=== PATIENT | female | born 1955 | race Caucasian/White ===

== ENCOUNTER → 2018-04-12 16:11 | Outpatient (CLI) | payer MEDICARE, BC, SELFPAY ==
--- NOTE | 2018-04-12 16:13 | CT_ITS ---
STUDY: CT CHEST WITHOUT CONTRAST REASON FOR EXAM: Female, 63 years old. Bilateral mastectomies. Extending from the incisional area into the back. RADIATION DOSAGE (If Supplied By Facility): CTDIvol = ( 11.38 ) mGy, DLP = ( 737.15 ) mGycm TECHNIQUE: Transaxial imaging was performed without the administration of intravenous contrast material. Multiplanar coronal and sagittal images were reformatted. Individualized dose optimization techniques were used for this CT. COMPARISON: CTA of the chest, July 09, 2015. FINDINGS: The lungs are normal. There is no demonstrated pleural abnormality. Normal heart and pericardium. There are calcifications of the coronary arteries. There is nonspecific subcentimeter mediastinal lymphadenopathy. Normal hilar regions. Normal unenhanced pulmonary arteries. There is atherosclerotic calcification of the aortic arch with tortuosity and elongation of the aortic arch and descending thoracic aorta. There are degenerative changes of the thoracic spine. The soft tissues of the chest wall appear normal. There is no enlarged axillary lymph nodes. There are skin clips in both axilla. There is fatty infiltration of the enlarged liver without mass. CT/Chest WITH Contrast IMPRESSION: 1. Normal unenhanced CT Chest examination. 2. No evidence of chest wall abnormality. 3. Mild degenerative changes of the thoracic spine. 4. Enlarged fatty infiltrated liver. Electronically Signed: Wan Ayoub DO at 17:06 EDT Tel [phone], Service support ,
== END ==
PROVIDERS: Family Provider Family Medicine; PCP Family Medicine; Visit Provider Internal Medicine Medical Oncology
DX: C50.911 Malignant neoplasm of unspecified site of right female breast (principal)
CPT/HCPCS: 71260; Q9967

== ENCOUNTER → 2018-04-19 10:10 | Outpatient (CLI) | payer MEDICARE, BC, SELFPAY ==
--- NOTE | 2018-04-19 10:12 | NM_ITS ---
CLINICAL: 83-year-old female with reported history of carcinoma of the breast with current complaint of anterior chest wall pain. WHOLE BODY 99m Tc MDP RADIONUCLIDE BONE SCINTIGRAPHY COMPARISON: CT of the chest report 04/12/2018, whole body bone scintigraphy study report 08/06/2013 FINDINGS: Following the intravenous administration of 25.0 mCi of 99m Tc MDP, whole body bone images reveal: 1. Newly identified mild increased radiopharmaceutical concentration appears evident in the proximal-distal sternum. 2. Enhanced uptake is presently visualized in the acromioclavicular, glenohumeral and sternoclavicular compartments of both shoulders, bilateral wrists and hands, sixth-eighth thoracic vertebra posteriorly on the right, fifth lumbar vertebra and left posterior sacrum, bilateral knees, right-left ankles, midfoot and forefoot bilaterally. 3. The remaining skeletal structures are scintigraphically unremarkable with normal-appearing renal images and urinary bladder activity identified. An increase in uptake is symmetrically defined in the bilateral frontal calvarium most consistent with hyperostosis frontalis. NM/Bone Scan Whole Body IMPRESSION: 1. The increase in radiopharmaceutical concentration defined in the proximal-distal sternum may be further investigated with magnetic resonance imaging in view of the negative findings noted on CT of the chest report dated 04/12/2018, and known history of primary breast carcinoma. 2. Degenerative arthritis appears expressed in the bilateral shoulders, both wrists articulations, right-left hands, thoracic and lumbar spine, sacrum, knees bilaterally, both ankle articulations, right-left mid and forefoot. Electronically Signed: Darci Gary DO at 10:24 EDT Tel , Service support ,
== END ==
PROVIDERS: Family Provider Family Medicine; PCP Family Medicine; Visit Provider Internal Medicine Medical Oncology
DX: C50.911 Malignant neoplasm of unspecified site of right female breast (principal)
CPT/HCPCS: 78306

== ENCOUNTER → 2018-06-14 14:59 | Outpatient (CLI) | payer MEDICARE, BC, SELFPAY ==
[2018-06-18 08:07] LABS: Alternaria alternata <0.10 kU/L (Class 0); Aspergillus fumigatus <0.10 kU/L (Class 0); Bahia Grass <0.10 kU/L (Class 0); Bermuda Grass <0.10 kU/L (Class 0); Bluegrass, Kentucky <0.10 kU/L (Class 0); Cat Hair/Dander, Standard <0.10 kU/L (Class 0); Cedar, Mountain <0.10 kU/L (Class 0); Cladosporium herbarum <0.10 kU/L (Class 0); Cockroach, American <0.10 kU/L (Class 0); D farinae Mite <0.10 kU/L (Class 0); D pteronyssinus <0.10 kU/L (Class 0); Dog Epithelia <0.10 kU/L (Class 0); Elm, American White <0.10 kU/L (Class 0); Hazelnut Tree <0.10 kU/L (Class 0); Hickory, White <0.10 kU/L (Class 0); Johnson Grass <0.10 kU/L (Class 0); Maple/Box Elder <0.10 kU/L (Class 0); Mucor racemosus <0.10 kU/L (Class 0); Mugwort <0.10 kU/L (Class 0); Mulberry, White <0.10 kU/L (Class 0); Oak, White <0.10 kU/L (Class 0); Penicillium chrysogen <0.10 kU/L (Class 0); Pigweed, Rough <0.10 kU/L (Class 0); Plantain, English <0.10 kU/L (Class 0); Ragweed, Short/Common <0.10 kU/L (Class 0); Sheep Sorrel(Dock) <0.10 kU/L (Class 0); Stemphylium herbarum <0.10 kU/L (Class 0); Sweet Gum <0.10 kU/L (Class 0); Sycamore, American <0.10 kU/L (Class 0)
[2018-06-18 09:58] LABS: Nettle <0.10 kU/L (Class 0)
== END ==
PROVIDERS: Family Provider Family Medicine; PCP Family Medicine; Visit Provider Family Medicine
DX: J45.909 Unspecified asthma, uncomplicated (principal)
CPT/HCPCS: 36415; 86003

== ENCOUNTER 2018-10-09 04:46 | Emergency (ER) | payer MEDICARE, BC, SELFPAY ==
[2018-10-09 04:47] VITALS: BP 173/99; PULSE 97; RESP 18; TEMP 36.3; O2SAT 93; BMI 40.3
--- NOTE | 2018-10-09 04:55 | RAD_ITS ---
STUDY: X-RAY CHEST REASON FOR EXAM: Female, 63 years old. Cough TECHNIQUE: PA and lateral COMPARISON: None. FINDINGS: There is a RIGHT middle lobe infiltrate. Lungs are well expanded. There is no demonstrated pleural abnormality. Normal size heart. Normal mediastinum and kita. Normal visualized pulmonary arteries. Normal visualized aortic arch and descending thoracic aorta. Normal visualized thoracic spine. Normal visualized ribs, clavicles, and shoulders. There is no demonstrated abnormality of the visualized soft tissue structures of the upper abdomen. RAD/Chest PA and Lateral IMPRESSION: There is a RIGHT middle lobe infiltrate. Lungs are well expanded. There is no demonstrated pleural abnormality. Normal size heart. Electronically Signed: Sukumar Thomas MD at 5:47 EST , Service support ,
--- NOTE | 2018-10-09 04:58 | ED.DCSUM_ITS ---
- ER Visit Summary Date of Service: 10/09/18 Chief Complaint: []: Wheezing shortness of breath cough History of Present Illness: The patient is a 63 F with the above symptoms for last 7 days. She has nasal congestion as well. Positive sick contacts with her grandkids. She does have a history of asthma. She is using albuterol nebulizers at home. She is using Mucinex, Robitussin, honey. Feels like she probably has asthmatic bronchitis. Denies fevers or chills. Physical Examination: [] Vital signs reviewed General: Well-nourished well-developed Head: Normocephalic atraumatic Eyes: Pupils equal round and reactive to light extraocular movements intact ENT: TMs clear no hemotympanum no trauma Neck: Nontender full range of motion Cardiovascular: Regular rate rhythm no murmurs normal S1-S2 Respiratory: Diffuse expiratory wheezes bilaterally chest nontender speaking full sentences. No retractions. No significant respiratory distress Abdomen: Soft nontender nondistended normal bowel sounds no masses Back: Nontender no CVA tenderness Extremities: Nontender active range of motion ?4 extremities no trauma Skin: Normal color no trauma Neuro alert oriented cranial nerves II through XII intact normal strength sensation reflexes Test Results: [] Emergency Department Course and Treatment: [] Given oral prednisone and DuoNeb breathing treatment followed by 2 albuterol breathing treatments. Chest x-ray obtained. It is negative. At this time the patient felt much better after treatment. Wheezing is resolved. At this time I feel she has asthmatic bronchitis that is viral in nature. Given prednisone for the next 5 days. We will follow-up as an outpatient. Treatment Plan: [] Disposition: [] Impression: [] Asthmatic bronchitis This note was generated with [employer] dictation software. It may contain incorrect words, spelling, and punctuation that were not noted in review of the chart prior to signing ED Disposition - Plan for ED Patient: Chief Complaint: Cough Referrals: Adolfo Aguirre MD [Primary Care Provider] -
[2018-10-09 05:00] VITALS: PULSE 97; RESP 18
[2018-10-09] MEDS: predniSONE 20 MG Tablet 60 MG PO (05:00)
[2018-10-09] MEDS: Albuterol 2.5 MG/3 ML VIAL.NEB. INHALATION (05:03)
[2018-10-09] MEDS: Ipratropium/Albuterol Sulfate 3 ML AMPUL.NEB INHALATION (05:03)
--- NOTE | 2018-10-09 05:42 | ED.DEP ---
ED Disposition - Plan for ED Patient: Disposition: Home or Assisted Living Chief Complaint: Cough Instructions: ED Bronchitis Asthmatic Prescriptions: predniSONE tablet 60 mg PO DAILY #15 tab Referrals: Adolfo Aguirre MD [Primary Care Provider] -
[2018-10-09 05:43] VITALS: PULSE 101; RESP 16; O2SAT 93
[2018-10-09 05:45] VITALS: PULSE 101; RESP 15; O2SAT 93
[2018-10-09 05:47] VITALS: O2SAT 93
== END 2018-10-09 05:48 | disposition home or self-care (01) ==
PROVIDERS: Emergency Provider Emergency Medicine; Family Provider Family Medicine; PCP Family Medicine
DX: J45.909 Unspecified asthma, uncomplicated (principal); E66.9 Obesity, unspecified; I25.10 Atherosclerotic heart disease of native coronary artery without angina pectoris; K21.9 Gastro-esophageal reflux disease without esophagitis; E11.9 Type 2 diabetes mellitus without complications; I10 Essential (primary) hypertension; E78.00 Pure hypercholesterolemia, unspecified; G47.33 Obstructive sleep apnea (adult) (pediatric); Z85.3 Personal history of malignant neoplasm of breast; Z79.82 Long term (current) use of aspirin; Z79.84 Long term (current) use of oral hypoglycemic drugs; Z79.899 Other long term (current) drug therapy
CPT/HCPCS: 71046; 94640; 99284

== ENCOUNTER → 2018-12-05 07:26 | Outpatient (CLI) | payer MEDICARE, BC, SELFPAY ==
[2018-11-23 12:53] VITALS: BMI 41.7
--- NOTE | 2018-12-05 07:28 | NM_ITS ---
CLINICAL: 63-year-old female with reported history of carcinoma of the breast. WHOLE BODY 99m Tc MDP RADIONUCLIDE BONE SCINTIGRAPHY COMPARISON: Previous whole body bone scintigraphy study dated 04/19/2018 FINDINGS: Following the intravenous administration of 25.2 mCi of 99m Tc MDP, whole body bone images reveal: 1. Increased radiopharmaceutical concentration is currently identified in the fifth lumbar vertebra and left posterior sacrum, fourth and sixth thoracic vertebra posteriorly on the right, glenohumeral compartment of the left shoulder, acromioclavicular and sternoclavicular compartments of both shoulders, bilateral knees, both ankle articulations, right-left mid and forefoot. 2. The remaining skeletal structures are scintigraphically unremarkable with normal-appearing renal images and urinary bladder activity identified. There is evidence of hyperostosis frontalis. The prior described increased uptake noted in the sternum is not readily apparent on the current examination. NM/Bone Scan Whole Body IMPRESSION: 1. The increased radiopharmaceutical concentration identified in the thoracic and lumbar spine, sacrum, bilateral shoulder and knee articulations, right-left ankles, midfoot and forefoot bilaterally is most consistent with degenerative arthritis. 2. Overall compared to the previous whole body bone scintigraphy study dated 04/19/2018, there is no significant interval change. No definitive scintigraphic evidence of diffuse axial skeletal metastatic disease is demonstrated on the current examination. Electronically Signed: Darci Gary DO at 10:49 EDT Tel , Service support ,
== END ==
PROVIDERS: Family Provider Family Medicine; PCP Family Medicine; Referring Provider Nurse Practitioner Family; Visit Provider Nurse Practitioner Family
DX: C50.919 Malignant neoplasm of unspecified site of unspecified female breast (principal)
CPT/HCPCS: 78306

== ENCOUNTER 2019-04-20 17:53 | Emergency (ER) | payer MEDICARE, BC, SELFPAY ==
[2018-12-11 11:27] VITALS: BMI 42.3
[2019-04-20] VITALS (9 sets, daily range): BP systolic 113–145; BP diastolic 54–68; PULSE 73–84; RESP 14–24; TEMP 36.6–36.7; O2SAT 96–98; BMI 44.1
--- NOTE | 2019-04-20 17:59 | CT_ITS ---
We are attempting to reach an attending provider to discuss findings. An addendum with communication details will be sent when the communication is complete. STUDY: CTA HEAD AND NECK WITH CONTRAST REASON FOR EXAM: Female, 64 years old. Altered mental status. Stroke alert. RADIATION DOSAGE (If Supplied By Facility): CTDIvol = ( 22.02 ) mGy, DLP = ( 732.98 ) mGycm TECHNIQUE: CT angiography was performed with a multi-detector CT scanner. Data acquisition was obtained from the skull base through the vertex following intravenous administration of 100ML IV Isovue 370. MIP images were reconstructed from the axial data set. Post-processing of the angiographic images was performed, with multiplanar reformation and 3D reconstruction. Individualized dose optimization techniques were used for this CT. COMPARISON: No relevant priors. FINDINGS: Normal bilateral petrous carotid arteries. Normal right cavernous carotid artery with a normal supraclinoid bifurcation. Normal left cavernous carotid artery with a normal supraclinoid bifurcation. Normal right A1 segments of the anterior cerebral artery. Normal left A1 segments of the anterior cerebral artery. Normal intact anterior communicating artery (ACOM). Normal bilateral A2 segments of the anterior cerebral arteries. Normal right M1 and M2 segments of the middle cerebral arteries, with a normal M1 bifurcation. Normal left M1 and M2 segments of the middle cerebral arteries, with a normal M1 bifurcation. Normal right posterior communicating artery (PCOM). Normal left posterior communicating artery (PCOM). Normal bilateral vertebral arteries. Normal basilar artery with a normal basilar bifurcation. The visualized bilateral superior cerebellar (SCA) arteries are normal. Normal bilateral P1, P2 and visualized P3 segments of the posterior cerebral arteries. There is no demonstrated aneurysm of the [place]. There is no demonstrated abnormality of the visualized brain. AORTIC ARCH: Normal visualized aortic arch. Normal origins of the brachiocephalic, left common carotid, and left subclavian arteries. RIGHT CAROTID ARTERIES: Normal right common carotid artery (CCA). Normal right common carotid bulb. Normal origin of the right internal carotid (ICA) artery without a hemodynamically significant stenosis. Normal visualized cervical portion of the right internal carotid artery. Normal origin of the right external carotid artery (ECA). LEFT CAROTID ARTERIES: Normal left common carotid artery (CCA). Normal left common carotid bulb. Normal origin of the left internal carotid (ICA) artery without a hemodynamically significant stenosis. Normal visualized cervical portion of the left internal carotid artery. Normal origin of the left external carotid artery (ECA). VERTEBRAL ARTERIES: Normal bilateral vertebral arteries. CT/CTA Head AND Neck W/ Contrast IMPRESSION: Normal CTA Head and neck with contrast. Electronically Signed: Fredo Suazo, at 18:22 EDT Tel , Service support ,
--- NOTE | 2019-04-20 17:59 | EKG12_ITS ---
Test Reason : STROKE Blood Pressure : / mmHG Vent. Rate : 077 BPM Atrial Rate : 077 BPM P-R Int : 156 ms QRS Dur : 102 ms QT Int : 418 ms P-R-T Axes : 059 082 050 degrees QTc Int : 473 ms Normal sinus rhythm RSR' or QR pattern in V1 suggests right ventricular conduction delay Borderline ECG Confirmed by LEOPOLDO FELICIANO, PASCUAL ([id number]), editorial specialist SALBADOR MOROCHO ([id number]) on 04/23/2019 1:49:34 PM Referred By: UR Confirmed By:PASCUAL MINA MD
--- NOTE | 2019-04-20 17:59 | CT_ITS ---
STUDY: CT BRAIN WITHOUT CONTRAST REASON FOR EXAM: Female, 64 years old. Altered mental status. Stroke alert. RADIATION DOSAGE (If Supplied By Facility): CTDIvol = ( 44.99 ) mGy, DLP = ( 745.49 ) mGycm TECHNIQUE: Transaxial CT imaging of the brain was performed without administration of intravenous contrast material. Individualized dose optimization techniques were used for this CT. COMPARISON: None. FINDINGS: There is no acute bleed or infarct. There are normal white matter tracts. The ventricles are normal in configuration. There is no hydrocephalus. The visualized paranasal sinuses are clear. The mastoid air cells are well aerated. There is no skull fracture. CT/Brain/Head without Contrast IMPRESSION: No acute intracranial abnormality. N.B. : The above information has been verbally conveyed by Fredo Suazo to Tee Horowitz MD , , on 04/20/2019 18:15:51 (ET). Electronically Signed: Fredo Suazo, at 18:17 EDT Tel , Service support ,
--- NOTE | 2019-04-20 18:00 | CM.ED ---
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 FAMILY AT BEDSIDE. SEAN CHAMBERLAIN, PROOF OPERATOR, [employer] SIL[employer].
--- NOTE | 2019-04-20 18:01 | ED.DCSUM_ITS ---
History of Present Illness Chief Complaint: Neuro S/Sx Informant: Patient, Family, Manager Skilled Onset: Today Context: Sudden Onset Timing: Continuous Quality and Location: Slurred Speech Onset: 1649 Current Severity: Mild Maximum Severity: Moderate Worsened by: Nothing Relieved by: Nothing Associated Symptoms: Negative for: Headache, Nausea, Vomiting Narrative: Patient is a 64-year-old woman who was taken directly to CAT scan. She was examined by me on the CT table. Per paramedics onset 1649. She reports slurred speech. She has no other complaints. Squad reported right-sided weakness. Prior similar symptoms: No Recent Illness/Hospitalization: No - Past Medical History (1) CAD (coronary artery disease) Status: Chronic (2) Depression Status: Chronic (3) Diabetes mellitus, type II Status: Chronic (4) GERD (gastroesophageal reflux disease) Status: Chronic (5) HLD (hyperlipidemia) Status: Chronic (6) HTN (hypertension) Status: Chronic (7) Hypothyroidism Status: Chronic (8) Malignant neoplasm of right breast, stage 2 Status: Chronic Comment: lateral portion (9) Morbid obesity with BMI of 40.0-44.9, adult Status: Chronic (10) Osteoarthritis Status: Chronic (11) Sleep apnea Status: Chronic Past Medical History - Allergies and Home Meds Allergies/Adverse Reactions: Allergies Xrwudmu-Get-Qaz Reductase Inhibitor Adverse Reaction (Intermediate, Verified 11/23/18 12:52) elevated liver enzymes Primary Care Physician: Adolfo Aguirre MD [Primary Care Provider] - Prior records reviewed: Yes - Patient is on Metformin Surgical History: - Lives: Spouse/ Significant Other Smoking Status: Never smoker Drugs: None - Family History Maternal Family History: Family History (Last Reviewed 12/11/18 @ 11:26 by Mei Handley) Father Myocardial infarction Aunt No problems noted. Brother Myocardial infarction Sister Myocardial infarction Mother Ovarian cancer Family History: Reports: Heart Disease Review of Systems ROS: Unable to Obtain - Difficult to obtain since patient was in the radiology suite and her speech is slurred. General: Denies: Chills, Fever, Sweats Eyes: Denies: Visual changes - bilaterally, Blurred Vision - bilaterally, Diplopia ENT: Denies: Bilateral ear pain, Rhinorrhea, Sore throat Cardiovascular: Denies: Chest pain, Palpitations, Heart racing Respiratory: Denies: Dyspnea, Cough, Sputum, Dyspnea on exertion, Orthopnea, Paroxysmal nocturnal dyspnea Gastrointestinal: Denies: Abdominal pain, Nausea, Vomiting, Diarrhea, Melena, Hematochezia Genitourinary: Denies: Dysuria, Hematuria, Frequency Musculoskeletal: Denies: Myalgias, Arthralgias, Neck pain, Back pain, Extremity Pain Skin: Denies: Rash, Wounds Neurological: Reports: Weakness. Denies: Headache, Numbness Hematologic: Denies: Easy bruising, Easy bleeding Allergy: Denies: Uticaria, Swelling of the mouth STROKE Inital Vital Signs reviewed: Yes - NIHSS Initial 1a Level of Consciousness: 1 1b LOC Questions (Score 2 if aphasic/stupor): 1 1c LOC Commands (Only score 1st attempt): 0 2 Best Gaze (If aphasic, use reflexive mvmts.): 0 3 Visual: 0 4 Facial Palsy: 0 5 Motor Arm Right (UN = amputation/fusion): 0 5 Motor Arm Left: 0 6 Motor Leg Right: 1 6 Motor Leg Left: 2 7 Limb ataxia (Only + if out of proportion): 1 8 Sensory (Aphasia/stupor=0 or 1, coma=2): 0 9 Best Language: 1 10 Dysarthria (mute, coma=2, intubated=UN): 1 11 Extinction and Inattention (only scored if +): 0 Total Score: 8 2nd Follow up at 1815 1a Level of Consciousness: 1 1b LOC Questions (Score 2 if aphasic/stupor): 1 1c LOC Commands (Only score 1st attempt): 0 2 Best Gaze (If aphasic, use reflexive mvmts.): 0 3 Visual: 0 4 Facial Palsy: 0 5 Motor Arm Right (UN = amputation/fusion): 0 5 Motor Arm Left: 0 6 Motor Leg Right: 0 6 Motor Leg Left: 2 7 Limb ataxia (Only + if out of proportion): 1 8 Sensory (Aphasia/stupor=0 or 1, coma=2): 0 9 Best Language: 1 10 Dysarthria (mute, coma=2, intubated=UN): 1 11 Extinction and Inattention (only scored if +): 0 - NH has improved and if one excludes prior weakness is a 5 Total Score: 7 Diagnostic/Tx/Re-eval - EKG Initial EKG Interpretation: Sinus Rhythm - Ocular rate is 77. WA intervals 100.56 ms. QRS duration 102 ms. There is an RR prime in V1 suggestive of a right ventricular bundle branch block. QT T is 418 ms. [place] is normal. - Medical Decision Making Stroke Team Activated: Yes Reviewed Inclusion/Exclusion criteria: Yes Was Patient considered for Endovascular Intervention?: Yes IV Alteplase (t-PA) Administered: Yes No contraindications for IV Alteplase (t-PA) administration.: Yes Alteplase (t-PA) risks, benefits, alternative discussed: Yes Not given: Patient refusal: No Patient arrives with strokelike symptoms that started at 1650. Patient was taken directly to the scanner. Patient was examined by me in the scanner. Patient's initial NIH is 7. CT of the head and CTA of the head and neck were ordered. CT of the head without contrast and CTA of the head neck interpreted by same radiologist reveals no abnormality. Per [facility] neurologist patient was a candidate for TPA and recommended TPA. After explaining risk benefits of TPA patient and family consented. Initial thought was to admit patient to [facility] ICU. Since there is no neurology coverage on weekend she was transported to [facility]. Critical care time (excluding procedures): Discussing w/Patient &/or Family/Coding Analyst - Critical care time 32 minutes. This included discussion with patient, family and neurologist at [facility]. Help/facilitate transfer to [facility] and direct bedside care. ED Disposition - Plan for ED Patient: Disposition: [facility] Diagnosis: CVA (cerebral vascular accident) Referrals: Adolfo Aguirre MD [Primary Care Provider] -
[2019-04-20 18:35] LABS: Absolute Lymphocyte Count 1.45 X10^3/uL (0.83-4.51); Absolute Neutrophil Count 4.7 X10^3/uL (2.0-7.7); Basophil# 0.04 X10^3/uL; Basophil% 0.6 % (0-1); Eosinophil# 0.31 X10^3/uL; Eosinophils% 4.3 % (0-5); Hematocrit 36.6 % (37-47); Hemoglobin 12.4 g/dL (12.0-15.0); Lymphocyte # 1.45 X10^3/ul (4.0); Lymphocyte % 20.2 % (19-41); Mean Corp Hgb Conc 33.9 g/dL (32-36); Mean Corpuscular Volume 91.5 fL (81-99); Mean Platelet Vol. 10.9 fl (6.2-12.0); Monocyte# 0.66 X10^3/uL; Monocyte% 9.2 % (0-10); NRBC Flagged by Analyzer 0 % (0-5); Neutrophil # 4.68 X10^3/uL (2.7-7.7); Neutrophil % 65.3 % (47-70); Platelet Count 201 K/mm3 (150-450); RBC Distribution Width CV 13.3 % (11.6-14.6); RBC Distribution Width SD 45.1 fl (35.1-43.9); White Blood Count 7.2 K/mm3 (4.4-11.0)
[2019-04-20 18:45] LABS: Anion Gap 6 (5-15); BUN 11 mg/dL (7-18); BUN/Creat Ratio 12.7 RATIO (10-20); Calcium,Total 7.9 mg/dL (8.5-10.1); Chloride 109 mmol/L (98-107); Creatinine, Serum 0.86 mg/dL (0.55-1.02); EST Glomerular Filtration Rate 70 mL/min (>60); Est Glom Filt Rate - Afr Amer 84 mL/min (>60); Glucose 163 mg/dL (74-106); Potassium 3.8 mmol/L (3.5-5.1); Sodium Level 142 mmol/L (136-145)
[2019-04-20] MEDS: Ondansetron 4 MG/2 ML Vial IV (19:21)
== END 2019-04-20 19:30 | disposition short-term general hospital (02) ==
PROVIDERS: Emergency Provider Emergency Medicine; Family Provider Family Medicine; PCP Family Medicine
DX: I63.9 Cerebral infarction, unspecified (principal); R47.81 Slurred speech; G81.91 Hemiplegia, unspecified affecting right dominant side; R27.0 Ataxia, unspecified; R47.1 Dysarthria and anarthria; I10 Essential (primary) hypertension; R29.707 NIHSS score 7; I25.10 Atherosclerotic heart disease of native coronary artery without angina pectoris; F32.9 Major depressive disorder, single episode, unspecified; E11.9 Type 2 diabetes mellitus without complications; K21.9 Gastro-esophageal reflux disease without esophagitis; E78.5 Hyperlipidemia, unspecified; E03.9 Hypothyroidism, unspecified; E66.01 Morbid (severe) obesity due to excess calories; Z68.41 Body mass index [BMI] 40.0-44.9, adult; M19.90 Unspecified osteoarthritis, unspecified site; G47.30 Sleep apnea, unspecified; Z85.3 Personal history of malignant neoplasm of breast; Z79.82 Long term (current) use of aspirin; Z79.84 Long term (current) use of oral hypoglycemic drugs; Z79.899 Other long term (current) drug therapy
CPT/HCPCS: 51702; 70450; 70496; 70498; 80048; 84484; 85025; 93005; 96365; 96374; 96375; 99285; J2997; Q9967; A4216; J2405

== ENCOUNTER → 2019-05-11 | Outpatient (CLI) | payer MEDICARE, BC, SELFPAY ==
[2019-04-20 18:09] VITALS: BMI 44.1
--- NOTE | 2019-05-11 13:52 | ECHOCS_ITS ---
Reason For Study: TIA/CVA Procedure This was a 2D Doppler, Color Flow transthoracic echocardiogram. The study was technically difficult. Contrast injection was performed. Exam performed in department. Left Ventricle Normal LV size. Left ventricular systolic function is normal. The estimated ejection fraction is 65 %. Diastolic function is indeterminate. No regional wall motion abnormalities noted. Right Ventricle Normal RV size. Normal systolic function. Atria Normal left atrium. Normal right atrium. No doppler evidence for ASD. Bubble contrast study negative for right to left interatrial shunt. Mitral Valve There is no mitral annular calcification. Normal mitral valve. Mild (1+) mitral valve insufficiency. Tricuspid Valve Normal tricuspid valve. Mild tricuspid valve insufficiency. Right ventricular systolic pressure estimated to be 33 mmHg. Aortic Valve Trisinus/trileaflet aortic valve. Normal aortic valve. Pulmonic Valve The pulmonic valve is not well visualized. Mild (1+) pulmonic valve insufficiency. Great Vessels The aortic root is not well visualized. Pericardium/Pleural No pericardial effusion. Medication 22 gauge I.V. with prn adaptor inserted into right arm. Diluted definity 2ml given slow IV push to enhance endocardial definition. Performed a rapid injection of agitated mix of 9 cc saline and 1cc air to assess for atrial septal defect. MMode/2D Measurements & Calculations LVIDd: 5.0 cm IVSd: 1.1 cm LA dimension: 4.0 cm LVIDs: 3.0 cm LVPWd: 0.97 cm FS: 40.4 % LAV(MOD-bp): 51.8 ml LA A4 area: 17.6 cm2 RA A4 area: 15.9 cm2 LAV(MOD-bp) Indexed: 23.6 ml/m2 LAV(MOD-sp2): 52.7 ml LAV(MOD-sp4): 45.6 ml Time Measurements MV dec time: 0.22 sec Doppler Measurements & Calculations MV E max scott: 88.4 cm/sec Lat Peak E' Scott: 7.4 cm/sec Med Peak E' Scott: 5.9 cm/sec MV A max scott: 101.9 cm/sec E/E' lat: 12.0 E/E' med: 15.1 MV E/A: 0.87 MV V2 max: 124.2 cm/sec MV P1/2t max scott: 126.2 cm/sec Ao V2 max: 120.8 cm/sec MV max P.2 mmHg MV P1/2t: 83.0 msec Ao max P.8 mmHg MV V2 mean: 66.3 cm/sec MV dec slope: 445.1 cm/sec2 MV mean P.1 mmHg MV V2 VTI: 35.9 cm MVA(P1/2t): 2.7 cm2 LV V1 max: 101.4 cm/sec PA V2 max: 113.6 cm/sec TR max scott: 272.3 cm/sec LV V1 max P.1 mmHg TR max P.6 mmHg Interpretation Summary The study was technically difficult. Contrast injection was performed. Left ventricular systolic function is normal. The estimated ejection fraction is 65 %. Mild (1+) mitral valve insufficiency. Mild tricuspid valve insufficiency. Mild (1+) pulmonic valve insufficiency. Right ventricular systolic pressure estimated to be 33 mmHg. Diastolic function is indeterminate. Ordering Physician: MI JARVIS Referring Physician: Ray Aguirre MD Performed By: Robin Waite RCS
== END | disposition home or self-care (01) ==
LOC: CVS 13:48
PROVIDERS: Family Provider Family Medicine; PCP Family Medicine
DX: Z86.73 Personal history of transient ischemic attack (TIA), and cerebral infarction without residual deficits (principal)
CPT/HCPCS: 93306; Q9957; A4216; C8929

== ENCOUNTER → 2019-06-14 14:12 | Outpatient (CLI) | payer MEDICARE, BC, SELFPAY ==
[2019-06-13 11:32] VITALS: BMI 41.3
[2019-06-14 16:46] LABS: T4 Free Direct 1.05 ng/dL (0.76-1.46); Thyroid Stim Hormone (TSH) 0.91 uIU/mL (0.358-3.74)
== END ==
PROVIDERS: Family Provider Family Medicine; PCP Family Medicine; Referring Provider Family Medicine; Visit Provider Family Medicine
DX: E03.9 Hypothyroidism, unspecified (principal)
CPT/HCPCS: 36415; 84439; 84443

== ENCOUNTER → 2020-01-02 09:58 | Outpatient (CLI) | payer MEDICARE, BC, SELFPAY ==
[2019-09-20 15:22] VITALS: BMI 42.1
[2020-01-02 12:55] LABS: ALB/GLOB Ratio 1.1 RATIO (0.9-2.4); AST(SGOT) 28 U/L (15-37); Alanine Aminotransfer ALT/SGPT 44 U/L (13-56); Albumin, Serum 3.7 g/dL (3.2-5.0); Alkaline Phosphatase 132 U/L (45-117); Anion Gap 6 (5-15); BUN 23 mg/dL (7-18); BUN/Creat Ratio 21.1 RATIO (10-20); Chloride 107 mmol/L (98-107); Cholesterol 156 mg/dL (200); Creatinine, Serum 1.09 mg/dL (0.55-1.02); EST Glomerular Filtration Rate 53 mL/min (>60); Est Glom Filt Rate - Afr Amer 64 mL/min (>60); Globulin 3.3 g/dL (2.2-4.2); Glucose 86 mg/dL (74-106); High Density Lipoprotein 47 mg/dL; Potassium 3.9 mmol/L (3.5-5.1); Sodium Level 140 mmol/L (136-145); Thyroid Stim Hormone (TSH) 1.95 uIU/mL (0.358-3.74); Triglycerides 198 mg/dL; Very Low Density Lipoprotein 40 mg/dL (5-40)
== END ==
PROVIDERS: PCP Family Medicine; Referring Provider Family Medicine; Visit Provider Family Medicine
DX: I10 Essential (primary) hypertension (principal); E78.5 Hyperlipidemia, unspecified; E03.9 Hypothyroidism, unspecified
CPT/HCPCS: 36415; 80053; 80061; 84443

== ENCOUNTER → 2020-04-03 11:35 | Outpatient (CLI) | payer MEDICARE, BC, SELFPAY ==
[2019-09-20 15:22] VITALS: BMI 42.1
[2020-04-03 15:22] LABS: ALB/GLOB Ratio 1.3 RATIO (0.9-2.4); AST(SGOT) 33 U/L (15-37); Alanine Aminotransfer ALT/SGPT 54 U/L (13-56); Albumin, Serum 3.8 g/dL (3.2-5.0); Alkaline Phosphatase 100 U/L (45-117); Anion Gap 6 (5-15); BUN 19 mg/dL (7-18); BUN/Creat Ratio 19.5 RATIO (10-20); Calcium,Total 9.1 mg/dL (8.5-10.1); Chloride 109 mmol/L (98-107); Cholesterol 169 mg/dL (200); Creatinine, Serum 0.98 mg/dL (0.55-1.02); EST Glomerular Filtration Rate 61 mL/min (>60); Est Glom Filt Rate - Afr Amer 73 mL/min (>60); Glucose 128 mg/dL (74-106); High Density Lipoprotein 54 mg/dL; Potassium 4.1 mmol/L (3.5-5.1); Protein, Total 6.8 g/dL (6.4-8.2); Sodium Level 141 mmol/L (136-145); Triglycerides 163 mg/dL; Very Low Density Lipoprotein 33 mg/dL (5-40)
[2020-04-03 15:28] LABS: Vitamin D,25 Hydroxy 89.9 ng/mL
== END ==
PROVIDERS: PCP Family Medicine; Referring Provider Family Medicine; Visit Provider Family Medicine
DX: Z00.00 Encounter for general adult medical examination without abnormal findings (principal); E11.9 Type 2 diabetes mellitus without complications; E55.9 Vitamin D deficiency, unspecified
CPT/HCPCS: 36415; 80053; 80061; 82306

== ENCOUNTER → 2020-12-31 10:08 | Outpatient (CLI) | payer MEDICARE, BC, SELFPAY ==
[2020-06-12 14:30] VITALS: BMI 40.4
[2020-12-31 12:47] LABS: Anion Gap 7 (5-15); BUN 22 mg/dL (7-18); BUN/Creat Ratio 19.3 RATIO (10-20); Calcium,Total 9.3 mg/dL (8.5-10.1); Chloride 105 mmol/L (98-107); Cholesterol 164 mg/dL (200); Creatinine, Serum 1.14 mg/dL (0.55-1.02); EST Glomerular Filtration Rate 50 mL/min (>60); Est Glom Filt Rate - Afr Amer 61 mL/min (>60); Glucose 150 mg/dL (74-106); High Density Lipoprotein 58 mg/dL; Sodium Level 137 mmol/L (136-145); Thyroid Stim Hormone (TSH) 1.38 uIU/mL (0.358-3.74); Triglycerides 205 mg/dL; Very Low Density Lipoprotein 41 mg/dL (5-40)
== END ==
PROVIDERS: PCP Family Medicine; Visit Provider Family Medicine
DX: E11.9 Type 2 diabetes mellitus without complications (principal)
CPT/HCPCS: 36415; 80048; 80061; 84443

== ENCOUNTER 2021-04-21 23:44 | Emergency (ER) | payer MEDICARE, BC, SELFPAY ==
[2020-06-12 14:30] VITALS: BMI 40.4
[2021-04-21 23:45] VITALS: BP 211/103; PULSE 71; RESP 18; TEMP 36.2; O2SAT 96; BMI 41.5
--- NOTE | 2021-04-22 00:06 | CT_ITS ---
ACR Level 3 findings have been noted. An addendum which confirms receipt of the report will follow. STUDY: CT ABDOMEN AND PELVIS WITHOUT CONTRAST REASON FOR EXAM: Female, 66 years old patient with right-sided flank pain. RADIATION DOSAGE (If Supplied By Facility): CTDIvol = ( 22.20 ) mGy, DLP = ( 1086.82 ) mGycm TECHNIQUE: Transaxial images were obtained from the dome of the diaphragm to the symphysis pubis without oral contrast, and without intravenous contrast. Sagittal and coronal images were reconstructed. Individualized dose optimization techniques were used for this CT. COMPARISON: Prior comparable comparison studies are not available for review at this time. FINDINGS: There is a tiny left lower lobe pulmonary nodule measuring about 2 mm in size. Lung bases otherwise appear to be clear. The visualized portions of the heart are within normal limits. There is hepatomegaly with diffuse hepatic enlargement. There is non-visualization of the gallbladder, which may be secondary to either contraction or a prior cholecystectomy. Normal spleen. Normal pancreas. Normal bilateral adrenal glands. There is an exophytic cystic mass arising from the lower pole of the kidney measuring approximately 3.6 x 2.9 x 3.3 cm. This is attenuation of approximately 5.8 Hounsfield units. Normal left kidney. Normal visualized stomach. There is no evidence for dilated bowel, ascites or pneumoperitoneum. Normal colon. The appendix is visualized and appears normal. There is diffuse atherosclerotic calcification of the abdominal aorta, without a demonstrated aneurysm. Normal inferior vena cava. Normal retroperitoneum. Urinary bladder is nondistended. There is absence of the uterus consistent with a prior hysterectomy. There is increased attenuation within the superficial soft tissues of the abdominal wall. The appearance suggests possible sequela of previous surgery, contusion or infection. There are multiple sclerotic lesions visible within the imaged thoracic, lumbar and sacral segments. This is consistent with metastatic disease. There are also multiple sclerotic lesions within the iliac wings. There are also sclerotic lesions within the proximal femurs. There is a lytic lesion within the posterior aspect of T12 which may extend into the spinal canal. CT/Abdomen/Pelvis without Cont IMPRESSION: 1. Multiple sclerotic metastases throughout the imaged axial and appendicular skeleton. 2. Lytic lesion involving T12 possibly extending into the spinal canal. 3. Mildly complex right-sided renal cystic lesion. 4. Hepatomegaly. Electronically Signed: Jes Barkley MD at 2:00 EDT , Service support ,
[2021-04-22] MEDS: Lidocaine 5% Patch 1 PATCH TOPICAL (00:12)
[2021-04-22] MEDS: Ondansetron 4 MG/2 ML Vial IV (00:12)
[2021-04-22] MEDS: Morphine 4 MG/ML Syringe IV (00:12)
[2021-04-22 00:29] LABS: Absolute Lymphocyte Count 2.39 X10^3/uL (0.83-4.51); Absolute Neutrophil Count 4.1 X10^3/uL (2.0-7.7); Basophil# 0.04 X10^3/uL; Basophil% 0.5 % (0-1); Hematocrit 44.2 % (37-47); Lymphocyte # 2.39 X10^3/ul (0.83-4.51); Lymphocyte % 31.7 % (19-41); Mean Corp Hgb Conc 31.7 g/dL (32-36); Mean Corpuscular Hgb 29.6 pg (27.0-32.0); Mean Corpuscular Volume 93.4 fL (81-99); Mean Platelet Vol. 10.5 fl (6.2-12.0); Monocyte# 0.68 X10^3/uL; NRBC Flagged by Analyzer 0 % (0-5); Neutrophil # 4.09 X10^3/uL (2.7-7.7); Neutrophil % 54.4 % (47-70); Platelet Count 279 K/mm3 (150-450); RBC Distribution Width SD 48.1 fl (35.1-43.9); Red Blood Count 4.73 M/mm3 (4.2-5.4); White Blood Count 7.5 K/mm3 (4.4-11.0)
[2021-04-22 00:31] LABS: Mucous, Urine 0 SEEN /hpf (<or=2+)
[2021-04-22 00:41] LABS: Color, Urine Yellow (Yellow); Glucose, Dipstick 1000 mg/dl (Normal); Ketone-Dipstick Negative (Negative); Leukocyte Esterase-Dipstick 500 /ul (Negative); Nitrite-Dipstick Negative (Negative); Occult Blood-Urine 50 /ul (Negative); Protein-Dipstick 30 mg/dl (Negative); Urine Bilirubin Dipstick Negative (Negative); Urine Clarity Sl. Cloudy (Clear); Urine Urobilinogen Normal (Normal)
[2021-04-22 00:43] LABS: Anion Gap 8 (5-15); BUN 25 mg/dL (7-18); BUN/Creat Ratio 22.3 RATIO (10-20); Chloride 108 mmol/L (98-107); Creatinine, Serum 1.12 mg/dL (0.55-1.02); EST Glomerular Filtration Rate 51 mL/min (>60); Est Glom Filt Rate - Afr Amer 62 mL/min (>60); Glucose 125 mg/dL (74-106); Potassium 4.3 mmol/L (3.5-5.1); Sodium Level 142 mmol/L (136-145)
[2021-04-22 00:49] LABS: White Blood Cells 25-50 SEEN /hpf (0-5)
[2021-04-22 00:50] LABS: Bacteria 1+ /hpf (None Seen); Squamous Epithelial Cells - UA 10-25 SEEN /hpf (5-10)
[2021-04-22 00:54] LABS: Red Blood Cells-Urine 0-5 SEEN /hpf (0-5)
[2021-04-22 01:02] VITALS: BP 156/81; PULSE 70; O2SAT 95
[2021-04-22] MEDS: cycloBENZAPRine HCl 10 MG Tablet PO (01:55)
--- NOTE | 2021-04-22 02:32 | EDS_ITS ---
HPI History of Present Illness Chief Complaint: Back Informant: patient and family Onset/Context/Timing Onset: Weeks Current Severity: Severe Maximum Severity: Severe Narrative Narrative: Patient presents secondary to right sided low back pain. She states 3 weeks ago she had some mild pain after moving some feed sacks. She followed up with her PCP who is encouraged supportive care. Symptoms did seem to improve but then worsened again yesterday and today. Pain is worse with movement. She initially thought she may have a kidney stone but does relate the pain is worse with movement. She has been taking Tylenol and Aleve without improvement. [facility] Medical History Acquired absence of bilateral breasts and nipples Acute asthma exacerbation Atherosclerotic heart disease of [place] coronary artery without angina pectoris Chest pain Coronary artery vasospasm Depression Diabetes mellitus Diabetes mellitus, type II Elevated alkaline phosphatase level Essential hypertension GERD (gastroesophageal reflux disease) History of kidney stones HLD (hyperlipidemia) Hot flashes related to aromatase inhibitor therapy Hx of cholecystitis Hypothyroidism Malignant neoplasm of right breast, stage 2 Morbid obesity with BMI of 40.0-44.9, adult Nephrolithiasis Osteoarthritis Personal history of breast cancer RBBB Sleep apnea TIA (transient ischemic attack) Vitamin D deficiency Home Medications losartan 100 mg PO DAILY 07/02/13 [History Last Taken 07/09/15] metformin 1,000 mg PO BIDCM 07/02/13 [History Last Taken 07/09/15] mfddtqud-veo-IO-lycopen-lutein 1 ea PO QHS 07/02/13 [History Last Taken Unknown] albuterol sulfate 2 puff INHALATION Q4H PRN PRN 07/09/15 [History Last Taken Unknown] aspirin 325 mg PO DAILY@0800 07/09/15 [History Last Taken 07/09/15] atorvastatin 100 mg PO QHS 07/09/15 [History Last Taken 07/08/15] ergocalciferol (vitamin D2) 50,000 unit PO ROLLINS 07/09/15 [History Last Taken Unknown] glipizide 5 mg PO BID 07/09/15 [History Last Taken 07/09/15] levothyroxine 150 mcg PO DAILY 07/09/15 [History Last Taken 07/09/15] metoprolol succinate 12.5 mg PO DAILY 07/09/15 [History Last Taken 07/09/15] zolpidem 10 mg PO QHS PRN PRN 12/07/16 [History Last Taken Unknown] sitagliptin 100 mg PO DAILY 03/29/17 [History Last Taken Unknown] lutein 40 mg PO DAILY 11/23/18 [History Last Taken Unknown] albuterol sulfate 0.63 mg/3 mL solution for nebulization 0.63 mg INHALATION Q4H 07/03/19 [History Last Taken Unknown] docusate sodium 50 mg capsule 50 mg PO DAILY 07/03/19 [History Last Taken Unknown] dapagliflozin 5 mg tablet 10 mg PO DAILY tab 09/20/19 [History Last Taken Unknown] cyclobenzaprine 10 mg PO BID PRN #10 tab 04/22/21 [Rx Last Taken Unknown] hydrocodone-acetaminophen 1 tab PO Q6H PRN 3 Days #14 tab 04/22/21 [Rx Last Taken Unknown] lidocaine [Lidoderm] 1 patch TOPICAL DAILY PRN #10 ea 04/22/21 [Rx Last Taken Unknown] sertraline 100 mg PO DAILY 04/22/21 [History Last Taken Unknown] Allergy/AdvReac Type Severity Reaction Status Date / Time [id number]-[id number] Reductase AdvReac Intermediate elevated Verified 06/12/20 14:25 Inhibitor liver enzymes Family History Father Myocardial infarction Sudden cardiac , Onset Age: 57 Brother Myocardial infarction CAD (coronary artery disease) Sister Myocardial infarction CAD (coronary artery disease) Mother Ovarian cancer Sister Cancer Surgical History History of bilateral mastectomy History of cholecystectomy History of hysterectomy History of left heart catheterization (LHC) (~07/23/11) Social History Smoking Status: Never smoker alcohol intake: never substance use type: does not use caffeine: Yes Type: tea Number of servings: 6 ROS ROS ED Constitutional Constitutional ED: Denies chills or fever(s) Eyes Eyes: Denies change in vision ENT ENT ED: Denies sore throat Cardiovascular Cardiovascular: Denies chest pain Respiratory/Chest Respiratory/Chest: Denies cough or dyspnea Gastrointestinal Gastrointestinal: Denies abdominal pain, diarrhea, nausea or vomiting Genitourinary Genitourinary ED: Denies dysuria, hematuria or urinary frequency Musculoskeletal Musculoskeletal: Reports back pain Integumentary Denies rash Neurologic Neurologic: Denies headache(s), paresthesias or weakness Psychiatric Psychiatric: Denies anxiety or depression Allergic/Immunologic Allergic/Immunologic ED: Denies urticaria EXAM Physical Exam Const Vital Signs: 04/21/21 23:45 04/22/21 01:02 Temperature 97.1 F L Temperature Source Temporal Pulse Rate 71 70 Respiratory Rate 18 Blood Pressure 211/103 H 156/81 H Blood Pressure Mean 139 106 Pulse Ox 96 95 Oxygen Delivery Method Room Air Room Air Positive well nourished and well developed General Appearance ED: well developed HEENT Reports moist mucous membranes Eyes PERRL and EOMs intact bilaterally Neck supple Chest Wall inspection of chest normal and palpation of chest normal Resp normal respiratory effort and clear to auscultation bilaterally Cardio regular rate and regular rhythm GI normal to inspection, nondistended, normoactive bowel sounds and non-tender Palpation: soft Back/Spine Back/Spine Narrative: Tenderness in the lumbar spine, mild in the midline but significant in the right lumbar paraspinals. Moderate tenderness in the left lumbar paraspinal muscles. No overlying skin change. Extremity normal to inspection Neuro oriented x3 Neuro Narrative: No focal neurologic deficits. Sensorium / Orientation: alert Psych mental status grossly normal Skin no rashes or lesions noted MDM MDM MDM Narrative Medical decision making narrative: Lab work, urinalysis, CT flank obtained. Patient was treated with morphine, Zofran, Lidoderm patch. This was followed by a dose of Flexeril. Lab Data Labs: Laboratory Results - last 24 hr 04/22/21 04/22/21 04/22/21 00:08 00:08 00:25 WBC 7.5 RBC 4.73 Hgb 14.0 Hct 44.2 MCV 93.4 MCH 29.6 MCHC 31.7 L RDW Std Deviation 48.1 H RDW Coeff of Jazmine 14.0 Plt Count 279 MPV 10.5 Immature Gran % (Auto) 0.400 Neut % (Auto) 54.4 Lymph % (Auto) 31.7 Saunders % (Auto) 9.0 Eos % (Auto) 4.0 Baso % (Auto) 0.5 Absolute Neuts (auto) 4.1 Absolute Lymphs (auto) 2.39 Nucleated RBC % 0 Sodium 142 Potassium 4.3 Chloride 108 H Carbon Dioxide 26.0 Anion Gap 8 BUN 25 H Creatinine 1.12 H Estim Creat Clear Calc 45.00 Est GFR (MDRD) Af Amer 62 Est GFR (MDRD) Non-Af 51 L BUN/Creatinine Ratio 22.3 H Glucose 125 H Calcium 9.0 Urine Color Yellow Urine Clarity Sl. Cloudy Urine pH 5.0 Ur Specific [place] 1.020 Urine Protein 30 H Urine Glucose (UA) 1000 H Urine Ketones Negative Urine Occult Blood 50 H Urine Nitrite Negative Urine Bilirubin Negative Urine Urobilinogen Normal Ur Leukocyte Esterase 500 H Urine RBC 0-5 SEEN Urine WBC 25-50 SEEN Ur Squamous Epith Cells 10-25 SEEN Urine Bacteria 1+ Urine Mucus 0 SEEN Radiography Diagnostic Testing: Radiology Impression Abdomen/Pelvis CT 04/22/21 00:06 IMPRESSION: 1. Multiple sclerotic metastases throughout the imaged axial and appendicular skeleton. 2. Lytic lesion involving T12 possibly extending into the spinal canal. 3. Mildly complex right-sided renal cystic lesion. 4. Hepatomegaly. Electronically Signed: Jes Barkley MD at 2:00 EDT , Service support , ADDENDUM: 04/22/215 IMPRESSION: 1. Multiple sclerotic metastases throughout the imaged axial and appendicular skeleton. 2. Lytic lesion involving T12 possibly extending into the spinal canal. 3. Mildly complex right-sided renal cystic lesion. 4. Hepatomegaly. N.B. : [facility] community development worker , [place], confirmed on 04/22/2021 02:08:41 (ET) that the healthcare facility has received the radiology report. Electronically Signed: Jes Barkley MD at 2:00 EDT , Service support , Treatment and Re-Evaluation Comments:: On repeat evaluation patient resting much more comfortably. Test r esults discussed with her and family at bedside. Urinalysis does reveal 25-50 white cells however 10-25 epithelial cells are noted. Patient does not have symptoms of UTI. CT scan does reveal multiple sclerotic lesions throughout the spine and pelvis concerning for metastatic disease. There is a lytic lesion involving T12 that may extend to the spinal canal. Patient will follow up with her oncologist. I will call them in the morning to notify them of the findings tonight and help ensure close follow-up. Patient is written for analgesics for home. Discharge Plan Triage Chief Complaint: Back ED Provider: Tawanna Herrera Dx/Rx/DC Orders Clinical Impression: Back pain Instructions: ED Back and Neck Pain, General Prescriptions: New hydrocodone-acetaminophen 5-325 mg tablet 1 tab PO Q6H PRN (Reason: pain) 3 Days Qty: 14 RF: 0 lidocaine [Lidoderm] 5 % adhesive patch,medicated 1 patch topical DAILY PRN (Reason: jose pain) Qty: 10 RF: 0 cyclobenzaprine 10 mg tablet 10 mg PO BID PRN (Reason: muscle spasm) Qty: 10 RF: 0 No Action albuterol sulfate 0.63 mg/3 mL solution for nebulization 0.63 mg INHALATION Q4H RF: 0 Colace Clear 50 mg capsule 50 mg PO DAILY RF: 0 metformin 1,000 MG tablet 1,000 mg PO BIDCM RF: 0 losartan 100 MG tablet 100 mg PO DAILY RF: 0 bwqarjzo-znt-LB-lycopen-lutein 1 EACH tablet 1 ea PO QHS RF: 0 atorvastatin 80 MG tablet 100 mg PO QHS RF: 0 aspirin 325 MG tablet 325 mg PO DAILY@0800 RF: 0 metoprolol succinate 25 MG tablet 12.5 mg PO DAILY RF: 0 ergocalciferol (vitamin D2) 50,000 UNIT capsule 50,000 unit PO ROLLINS RF: 0 albuterol sulfate 1 INHALER inhaler 2 puff inhalation Q4H PRN PRN (Reason: Shortness Of Breath) RF: 0 glipizide 5 MG tablet 5 mg PO BID RF: 0 levothyroxine 150 MCG tablet 150 mcg PO DAILY RF: 0 zolpidem 5 MG tablet 10 mg PO QHS PRN PRN (Reason: Sleep) RF: 0 sitagliptin 100 MG tablet 100 mg PO DAILY RF: 0 lutein 40 MG capsule 40 mg PO DAILY RF: 0 dapagliflozin 5 mg tablet 10 mg PO DAILY RF: 0 sertraline 50 MG tablet 100 mg PO DAILY RF: 0 Primary Care Provider: Adolfo Aguirre Referrals: Adolfo Aguirre MD [Primary Care Provider] - Myron Calvillo MD [NON-STAFF] - As soon as possible Disposition Disposition: Home, Self Care Discharge Date/Time: 04/22/21 02:42
== END 2021-04-22 02:42 | disposition home or self-care (01) ==
PROVIDERS: Emergency Provider Emergency Medicine; PCP Family Medicine
DX: M54.5 Low back pain (principal); C50.911 Malignant neoplasm of unspecified site of right female breast; C79.51 Secondary malignant neoplasm of bone; I25.111 Atherosclerotic heart disease of native coronary artery with angina pectoris with documented spasm; E11.9 Type 2 diabetes mellitus without complications; I10 Essential (primary) hypertension; E78.5 Hyperlipidemia, unspecified; E03.9 Hypothyroidism, unspecified; J45.909 Unspecified asthma, uncomplicated; M19.90 Unspecified osteoarthritis, unspecified site; F32.9 Major depressive disorder, single episode, unspecified; K21.9 Gastro-esophageal reflux disease without esophagitis; E66.01 Morbid (severe) obesity due to excess calories; Z68.41 Body mass index [BMI] 40.0-44.9, adult; Z79.82 Long term (current) use of aspirin; Z79.84 Long term (current) use of oral hypoglycemic drugs; Z79.899 Other long term (current) drug therapy; Z87.442 Personal history of urinary calculi; Z85.3 Personal history of malignant neoplasm of breast; Z86.73 Personal history of transient ischemic attack (TIA), and cerebral infarction without residual deficits
CPT/HCPCS: 74176; 80048; 81001; 85025; 96374; 96375; 99284; A4216; J2405

== ENCOUNTER → 2021-04-23 13:38 | Outpatient (CLI) | payer MEDICARE, BC, SELFPAY ==
[2021-04-23 11:26] VITALS: BMI 41.6
--- NOTE | 2021-04-23 13:42 | MRI_ITS ---
HISTORY: BACK PAIN R/O IMPENDING SPINAL CORD COMPRESSION EXAMINATION: MR Spine Cervical W/O Contrast TECHNIQUE: Multiplanar and multisequence MR images of the cervical spine were performed. IV Contrast dosage and agent: COMPARISON: None FINDINGS: VERTEBRAE: No compression fracture. Heterogenous marrow signal with pathologic replacement C4, T1 and T2. VERTEBRAL ALIGNMENT: Normal, including the craniocervical junction and cervicothoracic junction. No spondylolisthesis. There is straightening of the normal cervical lordosis. CORD: Unremarkable in signal and morphology. C2/C3: Normal disc height and morphology. Normal spinal canal and neuroforamina. C3/C4: Normal disc height and morphology. Normal spinal canal and neuroforamina. C4/C5: Normal disc height and morphology. Normal spinal canal and neuroforamina. C5/C6: Mild central and moderately severe bilateral foraminal stenoses due to spondylitic changes. C6/C7: Moderate bilateral foraminal stenosis due to spondylitic changes, central canal patent. C7/T1: Normal disc height and morphology. Normal spinal canal and neuroforamina. NECK SOFT TISSUES: No prevertebral soft tissue swelling. MRI/Spine Cervical (Routine) IMPRESSION: Findings consistent with metastatic disease at C4, T1 and T2. No compression fracture or impending cord compression. Central and foraminal stenoses at C5-6 and C6-7 as above. at 1649 Reported and signed by: Krishna Handley MD Electronically Signed: Krishna Handley MD at 16:48 EDT Tel , Service support ,
--- NOTE | 2021-04-23 13:42 | MRI_ITS ---
HISTORY: BACK PAIN R/O IMPENDING SPINAL CORD COMPRESSION -- EXAMINATION: MR Spine Thoracic W/O Contrast TECHNIQUE: Multiplanar and multisequence MR images of the thoracic spine. IV Contrast dosage and agent: None. COMPARISON: None FINDINGS: VERTEBRAE: Multilevel pathologic marrow replacement suspicious for metastatic disease, findings most severe at T12, T11 and T4 and T2. VERTEBRAL ALIGNMENT: Normal. There is preservation of the normal thoracic kyphosis. DISCS: Normal disc height and morphology. Normal spinal canal and neuroforamina. CORD: Unremarkable in signal and morphology. Normal conus medularis. SOFT TISSUES: Unremarkable. MRI/Spine Thoracic (Routine) IMPRESSION: Abnormal marrow signal consistent with diffuse metastatic disease. No compression fracture or evidence of impending cord compression. at 1658 Reported and signed by: Krishna Handley MD Electronically Signed: Krishna Handley MD at 16:57 EDT Tel , Service support ,
--- NOTE | 2021-04-23 13:42 | MRI_ITS ---
STUDY: MRI LUMBAR SPINE WITHOUT CONTRAST REASON FOR EXAM: Female, 66 years old. BACK PAIN -- BACK PAIN R/O IMPENDING SPINAL CORD COMPRESSION TECHNIQUE: Standardized fat and water weighted pulse sequences were obtained in the sagittal and axial planes. COMPARISON: CT abdomen and pelvis without contrast 04/22/2021. FINDINGS: Innumerable blastic metastatic disease throughout the lumbar spine, sacrum and, iliac bones and the included portions of the lower thoracic spine. T11-T12: (Sagittal only). Normal endplates. Mild disc space height narrowing. No ventral extradural defect. Normal central canal and bilateral intervertebral neural foramina. T12-L1: (Sagittal only). Normal endplates. Normal disc height. Small posterior bulging disc. Normal central canal and bilateral intervertebral neural foramina. Normal lumbar lordosis. There is no substantial scoliosis. Normal conus medullaris that terminates at the upper L1 vertebral body level. L1-2: Normal endplates. Normal disc height, hydration and morphology. Normal bilateral facet joints. Normal central canal and bilateral lateral recesses. Normal bilateral intervertebral neural foramina. L2-3: Normal endplates. Normal disc height, hydration and morphology. Mild bilateral degenerative facet arthropathy is unchanged. Normal central canal and bilateral lateral recesses. Normal bilateral intervertebral neural foramina. L3-4: Normal endplates. Normal disc height. Small posterior annular bulging disc. Pronounced central canal stenosis with an AP canal diameter of 4 mm. Normal bilateral lateral recesses. Prominent dorsal epidural lipomatosis. Normal facet joints. Normal bilateral intervertebral neural foramina. L4-5: Small sclerotic metastatic disease of the upper L5 vertebral body extends to the posterior L5 superior endplate. Normal L4 inferior endplate. Mild disc space height narrowing. No ventral extradural defect. Moderate central canal stenosis with an AP canal diameter of 7 mm secondary to developmentally short pedicles and prominent dorsal epidural lipomatosis. Normal bilateral lateral recesses. Moderate bilateral degenerative facet arthropathy are unchanged. Normal bilateral intervertebral neural foramina. L5-S1: Mild MODIC type II degenerative vertebral marrow fatty change underneath the L5 inferior endplate. Normal S1 superior endplate. Mild disc space height narrowing. Small posterior midline disc protrusion but no ventral extradural defect due to presence of ventral epidural fat. Normal central canal and bilateral lateral recesses. Moderate left degenerative facet arthropathy is unchanged. Normal right facet joint. Normal bilateral intervertebral neural foramina. Sclerotic metastatic disease to the sacral ala and iliac bones. Normal visualized paraspinous soft tissue structures. MRI/Spine Lumbar (Routine) IMPRESSION: 1. Innumerable and diffuse sclerotic bone metastatic disease throughout the lumbar spine, sacrum, iliac bones and the included portions of the lower thoracic spine. This is unchanged when compared to CT abdomen and pelvis of 04/22/2021. 2. Pronounced central canal stenosis at L3-L4 disc space level with an AP canal diameter of 4 mm secondary to small posterior annular bulging disc, developmentally short pedicles and prominent dorsal epidural lipomatosis. 3. Moderate central canal stenosis at L4-L5 disc level with an AP canal diameter of 7 mm secondary to developmentally short pedicles and prominent dorsal epidural lipomatosis. 4. No MRI evidence of lumbar extruded disc fragment. Electronically Signed: Tyler Jeffries MD at 11:08 EDT , Service support ,
== END ==
PROVIDERS: PCP Family Medicine; Visit Provider Internal Medicine Hematology & Oncology
DX: C79.51 Secondary malignant neoplasm of bone (principal); M54.9 Dorsalgia, unspecified
CPT/HCPCS: 72141; 72146; 72148

== ENCOUNTER → 2021-04-28 07:28 | Outpatient (CLI) | payer MEDICARE, BC, SELFPAY ==
[2021-04-27 09:40] VITALS: BMI 25.4
--- NOTE | 2021-04-28 07:28 | MRI_ITS ---
STUDY: MRI BRAIN WITH AND WITHOUT CONTRAST REASON FOR EXAM: Female, 66 years old. eval for brain metastases -- h/o breast cancer now with bone mets TECHNIQUE: Standardized multiplanar fat and water weighted pulse sequences were obtained. IV 22ml Dotarem was administered for the contrast portion of the examination. COMPARISON: None. FINDINGS: Normal size of the ventricles and extra-axial spaces for the patient''s age. Normal white matter tracts of the supratentorial brain. There is no evidence for recent intracranial ischemia or other cause of cytotoxic edema on diffusion weighted imaging (DWI). Normal T2* images of the brain without demonstrated susceptibility artifact. There is no demonstrated hemosiderin stain. Normal bilateral basal ganglia. Normal thalami. There is no extra-axial fluid accumulation. Normal flow voids within the major intracranial circulation suggesting patency by spin echo criteria. Normal venous enhancement. There is no enhancing intra-axial or extra-axial abnormality. Normal sella turcica, pituitary gland, infundibular stalk, optic chiasm and hypothalamus. Normal tectal plate and pineal gland. Normal midbrain, memo and medulla. Normal cerebellum. Normal basal cisterns. Normal bilateral temporal bones. Normal bilateral internal auditory canals. No demonstrated orbital abnormality, within the constraints of a routine brain study. Normal visualized paranasal sinuses. Normal calvarium and skull base. Normal visualized soft tissue structures. Normal visualized upper cervical spine. MRI/Brain W/WO Contrast IMPRESSION: Normal unenhanced and enhanced MRI of the brain. No MR evidence of metastatic disease. Electronically Signed: Darci Kong MD at 9:57 EDT Tel , Service support ,
== END ==
PROVIDERS: PCP Family Medicine; Referring Provider Student in an Organized Health Care Education/Training Program; Visit Provider Student in an Organized Health Care Education/Training Program
DX: C79.51 Secondary malignant neoplasm of bone (principal); Z85.3 Personal history of malignant neoplasm of breast
CPT/HCPCS: 70553; A9575

== ENCOUNTER → 2021-05-12 12:03 | Outpatient (CLI) | payer MEDICARE, BC, SELFPAY ==
--- NOTE | 2021-05-12 12:05 | ECHODONC_ITS ---
Reason For Study: Pre Chemo Procedure This was a 2D Doppler, Color Flow transthoracic echocardiogram. Myocardial strain analysis was performed in this exam to aid in the assessment of cardiac function. The study was technically difficult. Exam performed in department. Left Ventricle Normal LV size. Left ventricular systolic function is normal. The estimated ejection fraction is 65 %. The global longitudinal strain = -20 % (normal). Diastolic function is indeterminate. No regional wall motion abnormalities noted. Right Ventricle Normal RV size. Normal systolic function. Atria The left atrium is mildly enlarged. Normal right atrium. No doppler evidence for ASD. Mitral Valve There is no mitral annular calcification. Normal mitral valve. Mild (1+) mitral valve insufficiency. Tricuspid Valve Normal tricuspid valve. Trivial tricuspid valve insufficiency. Unable to estimate RV systolic pressure due to insufficient tricuspid regurgitant envelope. Aortic Valve Trisinus/trileaflet aortic valve. Mild diffuse aortic valve thickening. Pulmonic Valve The pulmonic valve is not well visualized. Mild (1+) pulmonic valve insufficiency. Great Vessels The aortic root is not well visualized. Pericardium/Pleural No pericardial effusion. MMode/2D Measurements & Calculations LVIDd: 5.2 cm IVSd: 1.0 cm LA dimension: 4.3 cm LVIDs: 3.6 cm LVPWd: 1.0 cm FS: 31.1 % LAV(MOD-bp): 60.7 ml LVAd ap4: 20.2 cm2 SV(MOD-sp4): 30.8 ml LAV(MOD-bp) Indexed: 27.4 ml/m2 LVLd ap4: 7.0 cm LAV(MOD-sp2): 57.4 ml EDV(MOD-sp4): 50.4 ml LAV(MOD-sp4): 60.6 ml EDV(sp4-el): 49.4 ml LVAs ap4: 11.2 cm2 LVLs ap4: 5.7 cm ESV(MOD-sp4): 19.5 ml ESV(sp4-el): 18.9 ml EF(MOD-sp4): 61.3 % EF(sp4-el): 61.9 % SV(sp4-el): 30.6 ml LA A4 area: 20.2 cm2 RA A4 area: 18.1 cm2 Time Measurements MV dec time: 0.22 sec Doppler Measurements & Calculations MV E max scott: 104.6 cm/sec Lat Peak E' Scott: 7.7 cm/sec Med Peak E' Scott: 6.2 cm/sec MV A max scott: 80.3 cm/sec E/E' lat: 13.6 E/E' med: 16.9 MV E/A: 1.3 MV V2 max: 136.6 cm/sec MV P1/2t max scott: 137.4 cm/sec Ao V2 max: 102.2 cm/sec MV max P.5 mmHg MV P1/2t: 91.5 msec Ao max P.2 mmHg MV V2 mean: 64.6 cm/sec MV mean P.1 mmHg MV dec slope: 439.7 cm/sec2 MV V2 VTI: 37.9 cm MVA(P1/2t): 2.4 cm2 LV V1 max: 98.6 cm/sec MR max scott: 493.7 cm/sec PA V2 max: 96.0 cm/sec LV V1 max P.9 mmHg MR max P.5 mmHg ECHO/ONC Echo Complete Interpretation Summary The study was technically difficult. Left ventricular systolic function is normal. The estimated ejection fraction is 65 %. The global longitudinal strain = -20 % (normal). The left atrium is mildly enlarged. Mild (1+) mitral valve insufficiency. Trivial tricuspid valve insufficiency. Mild diffuse aortic valve thickening. Mild (1+) pulmonic valve insufficiency. Diastolic function is indeterminate. Ordering Physician: Myron Calvillo Referring Physician: Ray Aguirre Performed By: Robin Waite RCS
== END ==
PROVIDERS: PCP Family Medicine; Referring Provider Internal Medicine Medical Oncology; Visit Provider Internal Medicine Medical Oncology
DX: Z01.818 Encounter for other preprocedural examination (principal); G47.30 Sleep apnea, unspecified; Z45.2 Encounter for adjustment and management of vascular access device
CPT/HCPCS: 77412; 93306; 93356

== ENCOUNTER → 2021-05-15 08:41 | Outpatient (CLI) | payer MEDICARE, BC, SELFPAY ==
--- NOTE | 2021-05-15 08:43 | NM_ITS ---
CLINICAL: Female, 66 years old. BONE METS WHOLE BODY NUCLEAR BONE SCAN TECHNIQUE: Following the IV administration of 25.4 mCi of Tc MDP, whole body bone imaging was performed with a gamma camera following a three hour delay. COMPARISON STUDIES : NM - 12/05/2018 CR - Not available for review at this time. CT - Not available for review at this time. MR - Not available for review at this time. US - Not available for review at this time. FINDINGS: There are multiple foci of increased uptake within the skull, mandible, thoracic spine, lumbar spine, rib cage, proximal humeri, bony pelvis, and right femur consistent with metastatic disease. Normal concentration [employer] by the kidneys with excretion into the bladder. NM/Bone Scan Whole Body IMPRESSION: Interval development of metastatic disease. Electronically Signed: Darci Kong MD at 13:08 EDT Tel , Service support ,
== END ==
PROVIDERS: PCP Family Medicine; Visit Provider Internal Medicine Medical Oncology
DX: Z01.818 Encounter for other preprocedural examination (principal); C50.911 Malignant neoplasm of unspecified site of right female breast
CPT/HCPCS: 78306; A9503

== ENCOUNTER 2021-05-22 13:09 | Day surgery (SDC) | payer MEDICARE, BC, SELFPAY ==
[2021-05-22] VITALS (9 sets, daily range): BP systolic 99–147; BP diastolic 58–81; PULSE 68–81; RESP 16–18; TEMP 36.1–37.2; O2SAT 95–98; BMI 39.8
[2021-05-22] MEDS: Lactated Ringers 1,000 ML 100 ML IV (13:20)
[2021-05-22 14:01] LABS: Bedside Glucose 146 mg/dL (70-110)
--- NOTE | 2021-05-22 14:35 | PCM.HP.BLA ---
History and Physical Date of Admission: 05/22/21 HISTORY AND PHYSICAL ? Alysha Schuler 1955 ? ? REFERRING PHYSICIAN: Self ? CHIEF COMPLAINT: No chief complaint on file. ? HPI: The patient is a 66 year old female with a diagnosis of metastatic breast cancer. Alysha is currently scheduled to undergo chemotherapy and needs vascular access for treatment. The patient denies a prior history of central venous access. ? Patient also has a area on her right chest wall which is been increasing in size. It is concerning for a metastatic lesion to the chest coming out of a drainage site. It is been there for an unknown period of time. ? Patient has been recently been diagnosed with metastatic breast cancer. ? PAST MEDICAL HISTORY PAST MEDICAL HISTORY Diagnosis Date ? Breast cancer (HCC) ? ? right ? Esophageal reflux ? ? Hyperlipidemia ? ? Hypothyroid ? ? Osteoarthrosis, unspecified whether generalized or localized, unspecified site ? ? Personal history of urinary calculi ? ? Right bundle branch block ? ? Sleep apnea ? ? Type II or unspecified type diabetes mellitus without mention of complication, not stated as uncontrolled (HCC) ? ? Unspecified asthma(493.90) ? ? Unspecified essential hypertension ? ? ? PAST SURGICAL HISTORY PAST SURGICAL HISTORY Procedure Laterality Date ? APPENDECTOMY ? 2005 ? BX/REMV,LYMPH NODE,DEEP AXILL ? 07/06/13 ? bilateral ? COLONOSCOP W/ OR W/O BRSH SPEC ? 06/23/2011 ? Colonoscopy ? HEART CATHETERIZATION ? 11 ? INTRAOP SENTINEL LYMPH ID W/DYE NJX ? 07/06/13 ? MASTECTOMY, SUBCUTANEOUS ? 07/06/13 ? bilateral ? REMOVAL GALLBLADDER ? 2005 ? Cholecystectomy ? REMOVAL OF TONSILS,<12 Y/O ? ? ? Tonsillectomy ? TOTAL ABDOM HYSTERECTOMY ? ? ? Hysterectomy, LUZMARIA ? ? ? CURRENT MEDICATIONS Current Outpatient Medications Medication Sig Dispense Refill ? atorvastatin (LIPITOR) 80 mg tablet Take 80 mg by mouth once daily. ? ? ? anastrozole 1 mg tablet Take 1 mg by mouth once daily. ? ? ? sertraline (ZOLOFT) 100 mg tablet Take 50 mg by mouth once daily. ? ? ? docusate sodium (STOOL SOFTENER) 100 mg capsule Take 100 mg by mouth twice daily. ? ? ? metFORMIN 500 mg ORAL tablet Take 2 tablets by mouth twice daily. 120 tablet 11 ? losartan (COZAAR) 100 mg ORAL tablet Take 1 tablet by mouth once daily. 90 tablet 4 ? levothyroxine 175 mcg ORAL tablet Take 1 tablet by mouth once daily. Takes 6.5 tabs per week 90 tablet 4 ? zolpidem (AMBIEN) 5 mg ORAL tablet Take one(1) tablet at bedtime as needed for insomnia. ? 0 ? aspirin 325 mg ORAL tablet Take one(1) tablet daily. ? 0 ? Pfzxqehcyojix-Unrpipyc-Vpdbyn (CENTRUM SILVER) ORAL Tab Take one(1) tablet daily. ? 0 ? CPAP Use as directed. ? 0 ? No current facility-administered medications for this visit. ? ? ALLERGIES: Aqmospb-Tjd-Bxr Reductase Inhibitors ? PERSONAL HISTORY: SOCIAL HISTORY Social History ? Tobacco Use ? Smoking status: Former Smoker ? Smokeless tobacco: Never Used ? Tobacco comment: quit 35 yrs ago Substance Use Topics ? Alcohol use: No ? ? Comment: rare ? Drug use: No ? FAMILY HISTORY: FAMILY HISTORY FAMILY HISTORY Problem Relation Age of Onset ? Diabetes Mother ? ? Diabetes Father ? ? Diabetes Sister ? ? other (Other [Other]) Sister ? ? familial adenomatous polyposis ? Diabetes Maternal Grandmother ? ? Diabetes Maternal Grandfather ? ? Diabetes Paternal Grandmother ? ? Diabetes Paternal Grandfather ? ? ? REVIEW OF SYMPTOMS: The review of systems data was entered by the nurse and reviewed by me ? Nursing Notes: Antoine Pedraza RN 05/19/2021 3:44 PM Signed REVIEW OF SYSTEMS: General: The patient NOTES fatigue, denies weight loss, denies weight gain, denies feeling hot, and denies feelings of cold. Eyes: The patient denies glaucoma, denies eye injury/surgery, does not wear glasses or contacts. Ear/Nose/Throat: The patient NOTES allergies, denies hayfever, denies ear infections, and denies bloody noses. Cardiovascular: The patient denies chest pain, NOTES heart disease, NOTES high blood pressure,denies cardiac stent, denies prior heart attack, denies irregular heart beat, NOTES high cholesterol, denies poor circulation, NOTES heart failure, other cardiac issues TO INCLUDE HEART CATH 2011, RIGHT BUNDLE BRANCH BLOCK denies claudication, denies cold feet, denies peripheral arterial stent. Respiratory: The patient denies tuberculosis, denies pneumonia, denies frequent cough, denies pulmonary embolism, denies shortness of breath, and denies coughing up blood. Gastrointestinal: The patient denies difficulty swallowing, denies acid reflux, denies ulcers, denies vomiting, denies jaundice/hepatitis, NOTES gallbladder problems, denies black or tarry stools, denies hemorrhoids, denies bleeding from rectum, denies diverticulitis, NOTES constipation, denies diarrhea, denies loss of stool control, and denies hernias. Kidney/Bladder: The patient NOTES kidney stones, denies urine infections, and denies bloody urine. Skin: The patient denies a history of skin cancer, denies bleeding/changing moles, and denies a history of skin rash. Neurologic: The patient denies a history of epilepsy/convulsions, denies headaches, denies head/spinal injuries, and NOTES stroke/TIA. Psychiatric: The patient denies psychiatric medications, denies depression, and denies voices, denies substance abuse. Endocrine: The patient NOTES thyroid disorders; HYPOTHYROID, NOTES diabetes, and NOTES hormonal problems. Hematologic: The patient denies a history of bruising, denies bleeding, and denies anemia, denies blood clots. Infections: The patient denies a history of measles and mumps, denies rheumatic fever, and denies sexually transmitted diseases. Musculoskeletal: The patient denies back pain/injury, denies back problems, denies sciatica, denies knee/foot trouble, denies arthritis, or denies gout. ? ? When was patient's last Mammogram screenin ? Last Colonoscopy: 2010 ? Antoine Pedraza RN ? PHYSICAL EXAMINATION: ? General: The patient is 66 year old female, well nourished, well hydrated in no acute distress. The patient is oriented to time, place, and person. ? VITALS: There were no vitals taken for this visit. There is no height or weight on file to calculate BMI. ? HEENT: Normal cephalic, ataumatic, pupils are equally round, sclera are anicteric, mucous membranes are moist, oropharynx is clear. Neck has no masses, asymmetry or lymphadenopathy. Thyroid is unremarkable. ? Respiratory: Clear to auscultation and percussion. Normal respiratory excursion and pattern. ? Cardiac: Examination is regular rate and rhythm. ? Abdominal exam: Soft, nontender, with no palpable masses. No hepatosplenomegaly. No palpable hernias. ? Rectal exam: exam deferred ? Extremities: no clubbing, cyanosis or edema. No adenopathy. ? Other: ? ? LABORATORY VALUES: As Noted ? RADIOLOGIC STUDIES: As Noted ? Assessment IMPRESSION: Admission for fitting and adjustment of vascular catheter (primary encounter diagnosis), need for IV access ? PLAN: I plan to perform a left internal jugular port a cath placement. The planned surgical procedure was discussed extensively with the patient. The risks, benefits, anticipated outcomes and possible complications were mentioned. My staff has also explained the procedure in understandable terms and the patient was given the option to take printed material concerning the planned procedure. The patient had the opportunity to ask questions concerning the planned procedure. The patient freely consents to the planned procedure. ? Planned Procedure: left Internal Jugular Portacath - [id number] ? Patient Weight Last 1 Encounter Wt Readings: Date: Wt: 04/28/2015 118.4 kg (261 lb) ? Antibiotic: Ancef 2gm IVPB alarm installation technician to OR ? Planned Anesthetic: MAC with local ? I will not plan to access the port at the time of surgery. ? Diagnoses: (Z45.2) Admission for fitting and adjustment of vascular catheter (primary encounter diagnosis) ? ? ? COVID (Procedure Consent) Procedure Criteria ? Procedure Criteria: Yes Elective The surgeon/proceduralist and patient have discussed in detail the risk of exposure to and/or potential harm posed by the COVID-19 virus with having a surgery/procedure at this time versus the risk of? delaying the surgery/procedure. It is not possible to know either the risk of delaying the surgery or procedure or chance of getting an infection with perfect accuracy, but a joint decision was made between the patient and the surgeon/proceduralist ?to proceed at this time with the scheduled surgery/procedure as indicated on the consent form. ? ? ? Jay Whitehead III, MD I have re-examined the patient. There are no clinical changes since date of exam.
[2021-05-22] MEDS: Cefazolin 2 GM in 0.9% Normal Saline 100 ML IV (15:42)
[2021-05-22] MEDS: Bupivacaine Mpf 0.5% 30 ML VIAL (16:07)
[2021-05-22] MEDS: Lidocaine 1% (30 ml sdv) 30 ML Vial (16:07)
--- NOTE | 2021-05-22 16:24 | PCM.OPRPT ---
Problems Associated Problem List Diagnoses (1) Vascular catheter fitting or adjustment: Report of Operation Date of Procedure: 05/22/21 Pre-Operative Diagnosis: Vascular fitting and adjustment Post-Operative Diagnosis: Same Surgery/Procedure Performed:: Placement of a left IJ PowerPort Surgeon: Jay Whitehead parliamentary counsel: Giorgio Medrano Type of Anesthesia: Local MAC Anesthesiologist: Bal Ponce Estimated Blood Loss (mL): < 25 cc Description of Procedure: Patient was brought into the operating room. Placed in the supine position. Head of the bed was positioned down. I ultrasound the left internal jugular vein area marked the neck appropriately in the chest appropriately. The neck and chest were then sterilely prepped draped in usual fashion. Local was injected into the neck. Seldinger's technique was used to gain access to the left internal jugular vein. Guidewire was placed over the needle the needle was removed. Fluoroscopy was used to firm the guidewire going into the superior vena cava. I injected local into the chest. Skin incision was made. Pocket was created with electrocautery. Skin jefferson was made in the neck. Dilator and sheath were placed over the guidewire removing the dilator and guidewire. Single-lumen catheter was then placed through the sheath sheath was removed fluoroscopy was used to firm proper placement of the catheter into the superior vena cava. I tunneled from the pocket created over the collarbone into the neck brought the catheter down I cut it to the appropriate length placed a locking hub on the catheter at the port onto the catheter and secured the tube with a locking hub. It flushed and irrigated well and was flushed with 4 cc of hep flush. It was sutured into the pocket created with 2 sutures of 2-0 Prolene. Skin incisions were closed with subcuticular stitches of 3-0 Vicryl. Dermabond was applied. Sterile dressings were applied. The patient tolerated the procedure well. Admit VTE Documentation VTE Present on Admission: No VTE Mechan Device Prophylaxis: SCD's VTE Pharm Prophylaxis ordered?: No Reason prophylaxis not ordered:: Procedure Not Indicated
--- NOTE | 2021-05-22 16:34 | RAD_ITS ---
INDICATION: line EXAMINATION/TECHNIQUE: X-RAY - XR Chest 1 View COMPARISON: 10/09/2018 PA and lateral views of the chest. FINDINGS: LINES/DEVICES: Left-sided tunneled chest port with the tip at the cavoatrial junction; projecting over the proximal right mainstem bronchus. LUNGS: No consolidation, edema or effusion. No pneumothorax. MEDIASTINUM AND CARDIOVASCULAR STRUCTURES: Cardiac silhouette not enlarged. Central airways and mediastinal contour are unremarkable. BONES AND SOFT TISSUES: Multilevel bridging osteophytes thoracic spine. No fracture or lytic or blastic bone lesion. There appears to be a small sliding hiatal hernia with stomach air bubble projecting above the left hemidiaphragm. RAD/Chest 1 View (Portable) IMPRESSION: Left tunneled chest port without complication. Probable hiatal hernia. Electronically Signed: Terrell Dasilva DO at 20:02 EDT Tel , Service support ,
--- NOTE | 2021-05-22 16:35 | EX.PCM.DISCH ---
Discharge Instructions Procedure Port-A-Cath Diet Discharge Diet: No restrictions (Pain medication may cause nausea. You should typically eat light foods as you take your pain medication.) Activity Discharge Activity: May Shower (with the bandage in place 1-2 days after surgery. DO NOT SHOWER WHEN YOUR PORT IS ACCESSED.) Additional Activity Instructions:: May not drive, work with heavy equipment, or sign legal documents for [address]. [address] if you are no longer taking narcotic pain medications. You may drive when you are no longer taking pain medications. Dressing / Incision Additional Dressing/Incision Instructions:: Leave the bandage on for 2-3 days. When you remove the bandage, leave the steri-strips intact until they fall off. Follow Up Care Please Follow Up With: Jennifer Benitez PA-C When: Call office to schedule an appointment to be seen in 7 days. Test Results: Test results from this visit will be discussed in further detail at your follow-up appointment, if applicable. Discharge Plan Admission Attending Provider: Jay Whitehead Primary Care Provider: Adolfo Aguirre Instructions Patient Instructions: Caring for Your Central Vein Access Discharge Orders/Prescriptions Prescriptions: New oxycodone-acetaminophen [Endocet] 5-325 mg tablet 1 tab PO Q6H PRN (Reason: pain) 5 Days Qty: 20 RF: 0 Continued albuterol sulfate 0.63 mg/3 mL solution for nebulization 0.63 mg INHALATION Q4H RF: 0 Colace Clear 50 mg capsule 50 mg PO DAILY RF: 0 methadone 5 mg tablet 2.5 mg PO Q12H RF: 0 oxycodone 5 mg capsule 2.5 mg PO Q4H PRN (Reason: Pain) RF: 0 tamoxifen 20 mg tablet 20 mg PO BID Qty: 60 RF: 3 metformin 1,000 MG tablet 1,000 mg PO BIDCM RF: 0 losartan 100 MG tablet 100 mg PO DAILY RF: 0 ytyzzdrl-xfn-YF-lycopen-lutein 1 EACH tablet 1 ea PO QHS RF: 0 atorvastatin 80 MG tablet 80 mg PO QHS RF: 0 aspirin 325 MG tablet 325 mg PO BID RF: 0 metoprolol succinate 25 MG tablet 12.5 mg PO DAILY RF: 0 ergocalciferol (vitamin D2) 50,000 UNIT capsule 50,000 unit PO SUWE RF: 0 albuterol sulfate 1 INHALER inhaler 2 puff inhalation Q4H PRN PRN (Reason: Shortness Of Breath) RF: 0 glipizide 5 MG tablet 5 mg PO BID RF: 0 levothyroxine 150 MCG tablet 150 mcg PO MOTUWETHFRSA RF: 0 zolpidem 5 MG tablet 10 mg PO QHS PRN PRN (Reason: Sleep) RF: 0 sitagliptin 100 MG tablet 100 mg PO DAILY RF: 0 dapagliflozin 5 mg tablet 10 mg PO DAILY RF: 0 cyclobenzaprine 10 mg tablet 10 mg PO BID PRN (Reason: muscle spasm) Qty: 10 RF: 0 levothyroxine 300 mcg Tablet 300 mcg PO ROLLINS RF: 0 sertraline [Zoloft] 25 mg Tablet 25 mg PO DAILY RF: 0 prochlorperazine maleate [Compazine] 5 mg tablet 2.5 mg PO TID PRN (Reason: nausea and vomiting) RF: 0 Referrals / Follow Up: Adolfo Aguirre MD [Primary Care Provider] - Disposition Disposition (needs filled in before D/C Order can be placed): Home, Self Care
== END 2021-05-22 17:56 | disposition home or self-care (01) ==
LOC: SDC 13:11 → AC 13:13
PROVIDERS: PCP Family Medicine; Referring Provider Surgery; Visit Provider Surgery
PROC: (CPT 36561; principal; 2021-05-22 14:45)
DX: Z45.2 Encounter for adjustment and management of vascular access device (principal); C50.919 Malignant neoplasm of unspecified site of unspecified female breast; C79.51 Secondary malignant neoplasm of bone; I25.10 Atherosclerotic heart disease of native coronary artery without angina pectoris; E11.9 Type 2 diabetes mellitus without complications; I10 Essential (primary) hypertension; E78.5 Hyperlipidemia, unspecified; E03.9 Hypothyroidism, unspecified; J45.909 Unspecified asthma, uncomplicated; M19.90 Unspecified osteoarthritis, unspecified site; G47.30 Sleep apnea, unspecified; K21.9 Gastro-esophageal reflux disease without esophagitis; F32.9 Major depressive disorder, single episode, unspecified; E66.01 Morbid (severe) obesity due to excess calories; Z68.41 Body mass index [BMI] 40.0-44.9, adult; Z79.84 Long term (current) use of oral hypoglycemic drugs; Z79.82 Long term (current) use of aspirin; Z79.890 Hormone replacement therapy; Z79.899 Other long term (current) drug therapy; Z86.73 Personal history of transient ischemic attack (TIA), and cerebral infarction without residual deficits; Z87.891 Personal history of nicotine dependence
CPT/HCPCS: 00532; 36561; 71045; 76000; 82962; J7120; C1788; J2405

== ENCOUNTER → 2021-07-20 08:49 | Outpatient (CLI) | payer MEDICARE, BC, SELFPAY ==
--- NOTE | 2021-07-20 08:51 | NM_ITS ---
CLINICAL: 66-year-old female with reported history of carcinoma of the breast metastatic to bone. WHOLE BODY 99m Tc MDP RADIONUCLIDE BONE SCINTIGRAPHY COMPARISON: Previous whole body bone scintigraphy study dated 05/15/2021 FINDINGS: Following the intravenous administration of 25.3 mCi of 99m Tc MDP, whole body bone images reveal: 1. Redefined increased radiopharmaceutical concentration is multifocally visualized in the appendicular and axial skeletal structures, bilateral hemicalvarium relatively unchanged compared to the study dated 05/15/2021. 2. Facilitated radiotracer distribution is currently expressed in the acromioclavicular and sternoclavicular compartments of both shoulders, bilateral knees, the visualized left wrist. 3. The remaining skeletal structures are scintigraphically unremarkable with normal-appearing renal images and urinary bladder activity identified. NM/Bone Scan Whole Body IMPRESSION: 1. The increase in radiopharmaceutical remaining apparent in the right-left calvarium, appendicular and axial skeleton is commensurate with the presence of multifocal osseous metastatic disease. 2. Degenerative arthritis appears expressed in the bilateral shoulders and knees, left wrist. 3. Overall compared to the previous whole body bone scintigraphy study dated 05/15/2021, there is continued demonstration of diffuse skeletal metastasis with no definitive interim change. Electronically Signed: Darci Gary DO at 23:03 EST Tel , Service support ,
== END ==
PROVIDERS: PCP Family Medicine; Referring Provider Internal Medicine Medical Oncology; Visit Provider Internal Medicine Medical Oncology
DX: C50.911 Malignant neoplasm of unspecified site of right female breast (principal); C79.51 Secondary malignant neoplasm of bone
CPT/HCPCS: 78306; A9503

== ENCOUNTER 2021-11-05 12:34 | Outpatient (CLI) | payer MEDICARE, BC, SELFPAY ==
--- NOTE | 2021-11-05 12:35 | CT_ITS ---
STUDY: CT CHEST WITH CONTRAST REASON FOR EXAM: Female, 66 years old. ASSESS TREATMENT RESPONSE RADIATION DOSAGE (If Supplied By Facility): CTDIvol = ( 13.64 ) mGy, DLP = ( 693.15 ) mGycm TECHNIQUE: Transaxial imaging was performed following intravenous administration of IV 100mL Isovue-300. Multiplanar coronal and sagittal images were reformatted. Individualized dose optimization techniques were used for this CT. COMPARISON: Comparison is made with prior study 04/12/2018. FINDINGS: A left-sided benito catheter is seen with the tip in the superior vena cava. Small bilateral benign-appearing axillary lymph nodes. Small intraluminal filling defects are seen in branches of the lower lobe pulmonary arteries bilaterally as well as proximal right upper lobe branches. Findings are consistent with small bilateral pulmonary emboli. There is no demonstrated pleural abnormality. Normal heart and pericardium. Normal mediastinum. Normal hilar regions. Normal enhanced pulmonary arteries. Normal aorta arch and descending thoracic aorta. Diffuse sclerotic metastasis involving the visualized thoracic and lumbar vertebrae. Small sclerotic lesions are also seen involving the sternum and ribs. Diffuse fatty infiltration of the liver. CT/Chest WITH Contrast IMPRESSION: Bilateral pulmonary emboli in the lower lumbar branches as well as in the right upper lobe. Diffuse sclerotic metastasis involving the appendicular and axial skeletons. Electronically Signed: Keegan García MD at 13:29 EST ,
[2021-11-05] MEDS: 0.9% Saline Lock 10 ML Syringe IV (12:52)
--- NOTE | 2021-11-05 13:49 | NURSING ---
Pt informed of PEs shown on CT, remains accessed though she did get saline and heparin post CT scan. Dr. Calvillo would like patient to go to his office. Pt is informed by prepress technician and remains accessed going to Dr. Calvillo's office.
== END 2021-11-05 23:59 | disposition home or self-care (01) ==
LOC: CT 12:35
PROVIDERS: PCP Family Medicine; Referring Provider Internal Medicine Medical Oncology; Visit Provider Internal Medicine Medical Oncology
DX: I26.99 Other pulmonary embolism without acute cor pulmonale (principal); C79.89 Secondary malignant neoplasm of other specified sites; C49.3 Malignant neoplasm of connective and soft tissue of thorax
CPT/HCPCS: 71260; Q9967; A4216

== ENCOUNTER 2021-12-09 10:40 | Outpatient (CLI) | payer MEDICARE, BC, SELFPAY ==
--- NOTE | 2021-12-09 10:42 | ECHOLONC_ITS ---
Reason For Study: Cardiotoxic Chemo Procedure This was a limited 2D transthoracic echocardiogram. Myocardial strain analysis was performed in this exam to aid in the assessment of cardiac function. Exam performed in department. Left Ventricle Normal LV size. Left ventricular systolic function is normal. The estimated ejection fraction is 60 %. No regional wall motion abnormalities noted. Right Ventricle Normal RV size. Normal systolic function. Atria Normal left atrium. Normal right atrium. Mitral Valve Normal mitral valve. Tricuspid Valve Normal tricuspid valve. Mild (1+) tricuspid valve insufficiency. Aortic Valve Normal aortic valve. Trisinus/trileaflet aortic valve. Pulmonic Valve Normal pulmonic valve. Great Vessels Normal aortic root. The pulmonary artery is normal size. Normal inferior vena cava. Pericardium/Pleural No pericardial effusion. MMode/2D Measurements & Calculations LVIDd: 5.7 cm IVSd: 0.71 cm LA dimension: 4.5 cm LVIDs: 3.1 cm LVPWd: 0.88 cm FS: 45.1 % LAV(MOD-sp4): 65.2 ml LA A4 area: 21.4 cm2 RA A4 area: 17.3 cm2 Doppler Measurements & Calculations Lat Peak E' Scott: 10.8 cm/sec Med Peak E' Scott: 7.7 cm/sec MR max scott: 516.4 cm/sec MR max P.7 mmHg MR mean scott: 402.8 cm/sec MR mean P.6 mmHg MR VTI: 167.8 cm TR max scott: 291.7 cm/sec TR max P.0 mmHg ECHO/ONC Echo, Limited Study Interpretation Summary Normal LV size. Left ventricular systolic function is normal. The estimated ejection fraction is 60 %. Mild (1+) tricuspid valve insufficiency. The global longitudinal strain is normal. The global longitudinal strain = -22. 3 % (normal). Compared to previous study, the left ventricular systolic function is the same. . Ordering Physician: Myron Calvillo Referring Physician: Ray Aguirre Performed By: Robin Waite RCS
== END 2021-12-09 23:59 | disposition home or self-care (01) ==
LOC: CVS 10:41
PROVIDERS: PCP Family Medicine; Visit Provider Internal Medicine Medical Oncology
DX: G47.30 Sleep apnea, unspecified (principal); C79.9 Secondary malignant neoplasm of unspecified site; C50.919 Malignant neoplasm of unspecified site of unspecified female breast; Z79.899 Other long term (current) drug therapy; I36.1 Nonrheumatic tricuspid (valve) insufficiency
CPT/HCPCS: 93308; 93356

== ENCOUNTER 2021-12-14 08:47 | Outpatient (CLI) | payer MEDICARE, BC, SELFPAY ==
--- NOTE | 2021-12-14 08:49 | NM_ITS ---
CLINICAL: 66-year-old female with history of primary breast carcinoma metastatic to bone. WHOLE BODY 99m Tc MDP RADIONUCLIDE BONE SCINTIGRAPHY COMPARISON: Whole body bone scintigraphy study dated 07/20/2021 FINDINGS: Following the intravenous administration of 25.5 mCi of 99m Tc MDP, whole body bone images reveal: 1. Innumerable foci of increased radiopharmaceutical concentration redemonstrated in the appendicular and axial skeletal structures, bilateral hemicalvarium with newly identified increased activity manifest in the left posterior ilium, sacroiliac joint and posterior midline sacrum, bilateral posterior ribs. Several persistently defined abnormalities demonstrated overall decrease in the intensity of uptake on the present examination. 2. Facilitated uptake is currently expressed in the mid cervical spine posteriorly on the right acromioclavicular compartments of both shoulders, medial tibial compartment of the left knee, the right ankle. 3. The remaining skeletal structures are scintigraphically unremarkable with normal-appearing renal images and urinary bladder activity identified. Additional previously described skeletal foci demonstrate interval resolution relative to the previous examination. NM/Bone Scan Whole Body IMPRESSION: 1. The redefined and newly apparent foci of increased radiopharmaceutical concentration noted in the right-left calvarium, appendicular and axial skeleton remain most consistent with osteoblastic turnover attributed to skeletal metastatic disease. There is interval resolution of additional previously described foci on the present evaluation. 2. Degenerative arthritis appears evident in the bilateral shoulders, left knee, the right ankle. 3. Overall compared to the previous whole body bone scintigraphy study dated 07/20/2021, there is continued demonstration of multifocal skeletal metastatic disease with several newly identified foci on the present evaluation, resolution of additional prior described abnormalities, and presumed partial response, stability in remaining multiple locations. Electronically Signed: Darci Gary DO at 23:00 EDT ,
== END 2021-12-14 23:59 | disposition home or self-care (01) ==
LOC: NM 08:48
PROVIDERS: PCP Family Medicine; Referring Provider Internal Medicine Medical Oncology; Visit Provider Internal Medicine Medical Oncology
DX: C50.919 Malignant neoplasm of unspecified site of unspecified female breast (principal); C79.51 Secondary malignant neoplasm of bone
CPT/HCPCS: 78306; A9503; A4216

== ENCOUNTER → 2022-01-14 | Outpatient (CLI) | payer MEDICARE, BC, SELFPAY ==
[2022-01-14 12:50] LABS: T4 Free Direct 1.13 ng/dL (0.76-1.46); Thyroid Stim Hormone (TSH) 4.33 uIU/mL (0.358-3.74)
== END | disposition home or self-care (01) ==
LOC: MTLAB 09:56
PROVIDERS: PCP Family Medicine; Referring Provider Family Medicine; Visit Provider Family Medicine
DX: E03.9 Hypothyroidism, unspecified (principal)
CPT/HCPCS: 36415; 84439; 84443

== ENCOUNTER → 2022-04-22 | Outpatient (CLI) | payer MEDICARE, BC, SELFPAY ==
--- NOTE | 2022-04-22 07:01 | MRI_ITS ---
EXAM: MR HEAD WITHOUT AND WITH INTRAVENOUS CONTRAST CLINICAL INDICATION: Cognitive changes. Metastatic breast cancer. TECHNIQUE: Multiplanar and multisequence MR images of the brain were obtained without and with intravenous contrast. This report was created using [employer] report Smart Lunches technology. CONTRAST: IV 20ml Dotarem COMPARISON: MRI brain with and without contrast 04/28/2021. FINDINGS: BRAIN AND EXTRA-AXIAL SPACES: No abnormal enhancing lesions intra-axial and extra-axially. No focal signal abnormalities throughout the brain parenchyma. Normal ventricles and cisterns. No intra- or extra-axial hemorrhage. No evidence of acute infarct. No intracranial mass or mass effect. There is preservation of the smalls/white matter interface. Posterior fossa structures are unremarkable. SELLA: Unremarkable. Normal sella turcica, pituitary gland, infundibular stalk, optic chiasm and hypothalamus. AUDITORY SYSTEM: Unremarkable. The internal auditory canals are patent. BONES/JOINTS: Unremarkable. No discrete lytic or blastic abnormalities. SINUSES: Unremarkable as visualized. Clear. MASTOID AIR CELLS: Unremarkable as visualized. Clear. ORBITS: Unremarkable as visualized. Both globes, extraocular muscles, optic nerves and retrobulbar fat appear unremarkable. VASCULATURE: Unremarkable as visualized. Normal flow voids in the major intracranial circulation. MRI/Brain W/WO Contrast IMPRESSION: Normal MRI brain with and without contrast and no significant interval change when compared to 11/26/2020. Electronically Signed: Tyler Jeffries MD at 10:01 EDT ,
[2022-04-22] MEDS: 0.9% Saline Lock 10 ML Syringe IV (07:50)
== END | disposition home or self-care (01) ==
LOC: MRI 07:01
PROVIDERS: PCP Family Medicine; Visit Provider Nurse Practitioner Family
DX: C50.919 Malignant neoplasm of unspecified site of unspecified female breast (principal); C79.9 Secondary malignant neoplasm of unspecified site
CPT/HCPCS: 70553; A9575; A4216

== ENCOUNTER → 2022-06-03 | Outpatient (CLI) | payer MEDICARE, BC, SELFPAY ==
--- NOTE | 2022-06-03 09:03 | NM_ITS ---
CLINICAL: 66-year-old female with history of metastatic carcinoma of the breast. WHOLE BODY 99m Tc MDP RADIONUCLIDE BONE SCINTIGRAPHY COMPARISON: Previous whole body bone scintigraphy study dated 12/14/2021 FINDINGS: Following the intravenous administration of 26.7 mCi of 99m Tc MDP, whole body bone images reveal: 1. Multifocal increased radiopharmaceutical concentration remains apparent in the bilateral hemicalvarium, the appendicular and axial skeleton manifesting minimal interval change in the overall number of scintigraphic findings and intensity of uptake. 2. Facilitated uptake is redefined in the left wrist, the acromioclavicular compartments of both shoulders, the left knee. 3. The remaining skeletal structures are scintigraphically unremarkable with normal-appearing renal images and urinary bladder activity identified. NM/Bone Scan Whole Body IMPRESSION: 1. The increase in tracer concentration identified in the appendicular and axial skeletal structures, the right and left skull remains consistent with diffuse, disseminated osseous metastasis. 2. 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 3. Overall compared to the previous whole body bone scintigraphy study dated 12/14/2021, there is minimal interim change. Electronically Signed: Darci Gary, at 21:52 EDT ,
== END | disposition home or self-care (01) ==
LOC: NM 09:00
PROVIDERS: PCP Family Medicine; Referring Provider Internal Medicine Medical Oncology; Visit Provider Internal Medicine Medical Oncology
DX: M17.12 Unilateral primary osteoarthritis, left knee (principal); M19.011 Primary osteoarthritis, right shoulder; M19.012 Primary osteoarthritis, left shoulder; M19.032 Primary osteoarthritis, left wrist; Z85.3 Personal history of malignant neoplasm of breast
CPT/HCPCS: 78306; A9503

== ENCOUNTER → 2022-08-31 | Outpatient (CLI) | payer MEDICARE, BC, SELFPAY ==
--- NOTE | 2022-08-31 13:38 | MRI_ITS ---
HISTORY: Metastatic breast cancer, confusion. TECHNIQUE: Multiplanar and multisequence MR images of the brain were obtained before and after the intravenous administration of contrast. 661 images. COMPARISON: 04/22/2022, 04/28/2021. FINDINGS: BRAIN PARENCHYMA: Minimal chronic periventricular white matter changes. No enhancing lesion. No abnormal focus of restricted diffusion. No acute intracranial hemorrhage identified. CSF SPACES: Cerebral ventricles, cortical sulci, and other extra-axial CSF spaces within normal limits in size for age. No significant midline shift or other mass effect.No extra-axial fluid collection. VASCULAR SYSTEM: Major intracranial flow voids are maintained. PARANASAL SINUSES AND MASTOID AIR CELLS: No significant air fluid levels. ORBITS: Symmetric contents. MRI/Brain W/WO Contrast IMPRESSION: No significant interval change. No evidence for enhancing intracranial mass or acute infarct. Electronically Signed: Kayla Agrawal MD at 15:29 EST ,
== END | disposition home or self-care (01) ==
LOC: MRI 13:34
PROVIDERS: PCP Family Medicine; Referring Provider Internal Medicine Medical Oncology; Visit Provider Internal Medicine Medical Oncology
DX: R41.0 Disorientation, unspecified (principal); C79.51 Secondary malignant neoplasm of bone; C50.919 Malignant neoplasm of unspecified site of unspecified female breast
CPT/HCPCS: 36591; 70553; 80053; 82306; 83615; 84100; 85025; 96372; 96401; A9575; A4216; J0897; J9395

== ENCOUNTER 2022-11-30 08:56 | Outpatient (CLI) | payer MEDICARE, BC, SELFPAY ==
--- NOTE | 2022-11-30 09:00 | EKG12_ITS ---
Test Reason : HIGH RISK MED USE Blood Pressure : / mmHG Vent. Rate : 076 BPM Atrial Rate : 076 BPM P-R Int : 134 ms QRS Dur : 082 ms QT Int : 402 ms P-R-T Axes : 035 077 044 degrees QTc Int : 452 ms Normal sinus rhythm Normal ECG Confirmed by RAD FELICIANO, MAN ([id number]), news videotape editor BRANNON ADAMS ([id number]) on 11/30/2022 12:57:34 PM Referred By: Ngozi Padron Confirmed By:MAN LEROY MD
== END 2022-11-30 23:59 | disposition home or self-care (01) ==
PROVIDERS: PCP Family Medicine; Referring Provider Family Medicine Hospice and Palliative Medicine; Visit Provider Family Medicine Hospice and Palliative Medicine
DX: G89.3 Neoplasm related pain (acute) (chronic) (principal); C79.51 Secondary malignant neoplasm of bone; Z79.891 Long term (current) use of opiate analgesic; Z85.3 Personal history of malignant neoplasm of breast
CPT/HCPCS: 36415; 80053; 82306; 83615; 84100; 85025; 93005; A4216

== ENCOUNTER → 2023-05-23 | Outpatient (CLI) | payer MEDICARE, BC, SELFPAY ==
--- NOTE | 2023-05-23 13:48 | CT_ITS ---
STUDY: CT CHEST T ABDOMEN WITH CONTRAST REASON FOR EXAM: Female, 68 years old. Metastatic breast ca on treatment; cough, abd pain RADIATION DOSAGE (If Supplied By Facility): CTDIvol = ( 19.37 ) mGy, DLP = ( 1593.41 ) mGycm TECHNIQUE: Transaxial imaging was performed following intravenous administration of IV 100mL Isovue-370. Individualized dose optimization techniques were used for this CT. COMPARISON: Comparison is made with prior study to November 05, 2021. FINDINGS: CHEST A left-sided benito catheter is seen with the tip in the superior vena cava. Tiny calcified granuloma in the posterior aspect of the left upper lobe. There is no demonstrated pleural abnormality. Normal heart and pericardium. Normal mediastinum. Normal hilar regions. Normal unenhanced pulmonary arteries. There is mild atherosclerotic calcification of the aortic arch. Once again, there is diffuse sclerotic metastasis involving the visualized thoracic and lumbar vertebrae. Small sclerotic lesions are also seen in the sternum and ribs bilaterally. ABDOMEN There is decreased attenuation of the liver consistent with steatosis. Normal gallbladder and extrahepatic biliary system. Normal spleen. Normal pancreas. Normal bilateral adrenal glands. Stable 4.2 cm cyst in the anterior aspect of the right kidney. Punctate calculus in the lower pole calyx of the right kidney. Normal left kidney. Normal visualized stomach. Normal small intestine. Normal colon. The appendix is visualized and appears normal. There is diffuse atherosclerotic calcification of the abdominal aorta and its major visceral branches, without a demonstrated aneurysm. Normal inferior vena cava. Normal retroperitoneum. Normal abdominal wall. Diffuse sclerotic metastasis involving the visualized lumbar vertebrae as well as the pelvic bones. CT/CT Chest AND Abd W/ Contrast IMPRESSION: Diffuse sclerotic metastasis of the thoracic and lumbar vertebrae as well as the pelvic bones. Electronically Signed: Keegan García MD at 15:35 EDT ,
[2023-05-23] MEDS: 0.9 % NaCl (Sterile) Posiflush 10 mL IV (14:20)
== END | disposition home or self-care (01) ==
LOC: CT 13:47
PROVIDERS: PCP Family Medicine; Referring Provider Nurse Practitioner Family; Visit Provider Nurse Practitioner Family
DX: C50.919 Malignant neoplasm of unspecified site of unspecified female breast (principal); C79.9 Secondary malignant neoplasm of unspecified site; C79.51 Secondary malignant neoplasm of bone; R05.9 Cough, unspecified; R10.9 Unspecified abdominal pain
CPT/HCPCS: 71260; 74160; Q9967; A4216

== ENCOUNTER → 2023-05-26 | Outpatient (CLI) | payer MEDICARE, BC, SELFPAY ==
--- NOTE | 2023-05-26 09:29 | NM_ITS ---
CLINICAL: Female, 68 years old. breast ca met to bone; new pain RUE -- Pain in right shoulder and back WHOLE BODY NUCLEAR BONE SCAN TECHNIQUE: Following the IV administration of 29 mCi of Tc MDP, whole body bone imaging was performed with a gamma camera following a three hour delay. COMPARISON STUDIES : NM - 06/03/2022 CR - Not available for review at this time. CT - 05/23/2023 MR - Not available for review at this time. US - Not available for review at this time. FINDINGS: Multifocal focal increased activity identified in the calvarium, sternum, ribs, thoracic and lumbar spine, bilateral shoulders/humeri and bilateral femurs stable in distribution since prior exam. Degenerative activity in the left wrist. No obvious new lesion. NM/Bone Scan Whole Body IMPRESSION: Similar multifocal osseous metastasis. Electronically Signed: Geraldo Juan MD ([place]) at 14:22 EDT ,
[2023-05-26] MEDS: 0.9 % NaCl (Sterile) Posiflush 10 mL IV (09:52)
== END | disposition home or self-care (01) ==
LOC: NM 09:29
PROVIDERS: PCP Family Medicine; Referring Provider Nurse Practitioner Family; Visit Provider Nurse Practitioner Family
DX: C50.919 Malignant neoplasm of unspecified site of unspecified female breast (principal); C79.51 Secondary malignant neoplasm of bone
CPT/HCPCS: 78306; A9503; A4216

== ENCOUNTER → 2023-06-28 | Outpatient (CLI) | payer MEDICARE, BC, SELFPAY ==
--- NOTE | 2023-06-28 14:21 | RAD_ITS ---
STUDY: X-RAY - RIGHT HUMERUS REASON FOR EXAM: Female, 68 years old. Pain. History of breast cancer metastasis to bone. TECHNIQUE: 2 views of the right humerus. COMPARISON: Nuclear whole-body bone scan dated 05/26/2023. FINDINGS: There multiple sclerotic lesions scattered throughout the right humeral head/neck and humeral shaft, compatible with multifocal osseous metastases. There is no acute humeral fracture. There is no demonstrated soft tissue abnormality. RAD/Humerus min 2 Views IMPRESSION: Multifocal osseous metastases throughout the right humerus. No acute humeral fracture. Electronically Signed: Jacky Carrillo MD at 15:20 EDT ,
== END | disposition home or self-care (01) ==
LOC: RAD 14:19
PROVIDERS: PCP Family Medicine; Referring Provider Nurse Practitioner Family; Visit Provider Nurse Practitioner Family
DX: M89.8X2 Other specified disorders of bone, upper arm (principal); C79.51 Secondary malignant neoplasm of bone; C50.919 Malignant neoplasm of unspecified site of unspecified female breast
CPT/HCPCS: 73060

== ENCOUNTER → 2023-06-29 | Outpatient (CLI) | payer MEDICARE, BC, SELFPAY ==
--- NOTE | 2023-06-29 11:05 | BD_ITS ---
STUDY: DUAL ENERGY X-RAY ABSORPTIOMETRY / DXA REASON FOR EXAM: Female, 68 years old. [id number] TECHNIQUE: Bone Mineral Density (BMD) measurements of lumbar spine and bilateral hips were obtained. COMPARISON: Comparison is made with prior study April 15, 2016. FINDINGS: Lumbar Spine (L1-L4): g/cm2 (1.734) / T-score (6.3) / Z-score (8.4) Findings are suggestive of normal bone density with a low fracture risk. Left Femur Total: g/cm2 (1.529) / T-score (4.8) / Z-score (6.3) Left Femoral Neck: g/cm2 (1.296) / T-score (4.0) / Z-score (5.8) Right Femur Total: g/cm2 (1.478) / T-score (4.4) / Z-score (5.9) Right Femoral Neck: g/cm2 (1.091) / T-score (2.2) / Z-score (4.0) The T-Scores on the most recent prior examination were: Lumbar Spine (L1-L4): There has been improvement of bone density since the previous examination. Left Femur Total: which represents an improvement of 44.2%. Right Femur Total: which represents an improvement of 34.5%. BD/Dexa Bone Density Study IMPRESSION: The patient is considered normal as outlined below according to World [place] Organization (WHO) criteria with a low fracture risk. There has been improvement of bone density since the previous examination. Reference Information: The T-score is the number of standard deviations above or below the standard which is normal for young adults at their peak bone mineral density. The World Health Organization (WHO) interprets the T-scores as follows: Above -1 Normal bone density Between -1 and -2.5 Osteopenia Equal to / or below -2.5 Osteoporosis As a practical clinical guideline, osteopenia may be graded as follows: Mild -1 through -1.5 Moderate -1.6 through -2.0 Severe -2.1 through -2.4 The Z-score is the number of standard deviations above or below age-matched controls. A Z-score of less than -1.5 would be considered abnormal. References: 1. NIH Osteoporosis and Related Bone Diseases www osteo.org 2. International Society for Clinical Densitometry www iscd.org 3. National Osteoporosis Foundation www nof.org Electronically Signed: Keegan García MD at 12:23 EDT ,
== END | disposition home or self-care (01) ==
LOC: OPBD 10:43
PROVIDERS: PCP Family Medicine; Referring Provider Family Medicine; Visit Provider Family Medicine
DX: Z00.00 Encounter for general adult medical examination without abnormal findings (principal); Z78.0 Asymptomatic menopausal state
CPT/HCPCS: 77080

== ENCOUNTER → 2023-12-08 | Outpatient (CLI) | payer MEDICARE, BC, SELFPAY ==
[2023-12-08 15:55] LABS: Vitamin D,25 Hydroxy 114.8 ng/mL
[2023-12-08 15:59] LABS: Cholesterol 138 mg/dL (200); High Density Lipoprotein 51 mg/dL; Thyroid Stim Hormone (TSH) 1.02 uIU/mL (0.358-3.74); Triglycerides 156 mg/dL; Very Low Density Lipoprotein 31 mg/dL (5-40)
== END | disposition home or self-care (01) ==
LOC: MFPLAB 13:49
PROVIDERS: PCP Family Medicine; Visit Provider Family Medicine
DX: E11.65 Type 2 diabetes mellitus with hyperglycemia (principal); E55.9 Vitamin D deficiency, unspecified
CPT/HCPCS: 36415; 80061; 82306; 84443

== ENCOUNTER 2024-11-05 18:11 | Emergency (ER) | payer MEDICARE, BC, SELFPAY ==
[2024-11-05 18:13] VITALS: BP 188/82; PULSE 87; RESP 16; TEMP 37; O2SAT 99; BMI 35.9
[2024-11-05 18:15] VITALS: BP 188/82; PULSE 87; RESP 16; TEMP 37; O2SAT 99
--- NOTE | 2024-11-05 18:17 | EX.ED.DYSGE1 ---
HPI History of Present Illness Chief Complaint: Hyperglycemia [facility] Medical History Breast cancer metastasized to bone Pain of right humerus Abdominal cramping Cough Mental status alteration Encounter for education Wears glasses Marijuana use Thyroid disease Diabetes High cholesterol Non-smoker CPAP (continuous positive airway pressure) dependence Asthma History of echocardiogram History of stress test Hypertension Cardiology follow-up encounter Right kidney mass Left lower lobe pulmonary nodule Bone metastases Atherosclerotic heart disease of [place] coronary artery without angina pectoris TIA (transient ischemic attack) Coronary artery vasospasm Essential hypertension Elevated alkaline phosphatase level History of kidney stones Hx of cholecystitis Diabetes mellitus Hot flashes related to aromatase inhibitor therapy Malignant neoplasm of right breast, stage 2 Chest pain RBBB Vitamin D deficiency GERD (gastroesophageal reflux disease) Osteoarthritis Acute asthma exacerbation Nephrolithiasis Hypothyroidism HLD (hyperlipidemia) Depression Diabetes mellitus, type II Morbid obesity with BMI of 40.0-44.9, adult Sleep apnea Acquired absence of bilateral breasts and nipples Personal history of breast cancer Home Medications ?Medication ?Instructions ?Recorded ?Last Taken ?Type losartan 100 mg tablet 100 mg PO DAILY 07/02/13 07/09/15 History metformin 1,000 mg tablet 1,000 mg PO BIDCM 07/02/13 07/09/15 History plbwsmcg-ghp-tjxuj acid 0.4 1 ea PO QHS 07/02/13 Unknown History mg-lycopene 300 mcg-lutein 250 mcg tablet albuterol sulfate 90 mcg/actuation 2 puff inhalation Q4H PRN PRN 07/09/15 Unknown History aerosol inhaler Shortness Of Breath atorvastatin 80 mg tablet 80 mg PO QHS 07/09/15 07/08/15 History ergocalciferol (vitamin D2) 1,250 50,000 unit PO SUWE 07/09/15 Unknown History mcg (50,000 unit) capsule metoprolol succinate 25 mg 12.5 mg PO DAILY 07/09/15 07/09/15 History tablet,extended release 24 hr zolpidem 5 mg tablet 10 mg PO QHS PRN PRN Sleep 12/07/16 Unknown History albuterol sulfate 0.63 mg/3 mL 0.63 mg inhalation Q4H 07/03/19 Unknown History solution for nebulization dapagliflozin propanediol 5 mg 10 mg PO DAILY 09/20/19 Unknown History tablet cyclobenzaprine 10 mg tablet 10 mg PO BID PRN muscle spasm #10 04/22/21 Unknown Rx tabs lidocaine-prilocaine 2.5 %-2.5 % 1 applic topical ONCE PRN port 05/23/21 Unknown Rx topical cream access 30 days #30 grams lutein 40 mg capsule 40 mg PO DAILY 11/30/21 Unknown History prochlorperazine maleate 5 mg 5 mg PO TID PRN nausea and 11/30/21 Unknown Rx tablet (Compazine) vomiting #30 tabs aspirin 325 mg tablet 325 mg PO DAILY 01/04/22 Unknown History docusate sodium 50 mg capsule 50 mg PO BID 01/04/22 Unknown History (Colace Clear) lorazepam 0.5 mg tablet 0.5 mg PO QHS 04/19/22 Unknown History meclizine 25 mg tablet (Dramamine 25 mg PO DAILY PRN dizziness 04/19/22 Unknown History (meclizine)) levothyroxine 150 mcg tablet 150 mcg PO MOTUWETHFRSA 04/26/22 Unknown History sertraline 100 mg tablet (Zoloft) 100 mg PO DAILY 02/09/23 Unknown History methadone 5 mg tablet 7.5 mg PO Q12H 05/03/23 Unknown History oxycodone 5 mg capsule 10 mg PO Q4H PRN Pain 05/03/23 Unknown History glipizide 2.5 mg tablet 2.5 mg PO DAILY 09/27/23 Unknown History insulin glargine 100 unit/mL (3 50 unit subcut QPM 07/26/24 Unknown History mL) subcutaneous pen (Basaglar KwikPen U-100 Insulin) palbociclib 75 mg tablet (Ibrance) 75 mg PO DAILY #21 tabs 08/16/24 Unknown Rx metoclopramide HCl 5 mg tablet 5 mg PO Q8H PRN PRN nausea and 11/05/24 Unknown Rx (Reglan) vomiting 30 days #90 tabs Allergy/AdvReac Type Severity Reaction Status Date / Time Tikhqxo-OXQ-AzI Reductase AdvReac Intermediate elevated Verified 11/05/24 18:13 Inhibitor (Vfbhqpu-Kjw-Nsx liver Reductase Inhibitor) enzymes Family History Father Myocardial infarction Sudden cardiac , Onset Age: 57 Brother Myocardial infarction CAD (coronary artery disease) Sister Myocardial infarction CAD (coronary artery disease) Uterine cancer Mother Ovarian cancer Sister Cancer Surgical History Hx of appendectomy Hx of right mastectomy History of bilateral mastectomy History of left heart catheterization (LHC) (~07/23/11) History of cholecystectomy History of hysterectomy Social History Smoking Status: Never smoker alcohol intake: never substance use type: does not use caffeine: Yes Type: tea Number of servings: 6 EXAM Physical Exam Const Vital Signs: 11/05/24 18:13 11/05/24 18:15 11/05/24 18:29 Temperature 98.6 F 98.6 F Temperature Source Oral Oral Pulse Rate 87 87 Respiratory Rate 16 16 Respiratory Effort Normal Non-Labored Respiratory Pattern Normal Blood Pressure 188/82 H 188/82 H Blood Pressure Mean 117 117 Pulse Ox 99 99 Oxygen Delivery Method Room Air 11/05/24 19:15 11/05/24 20:00 11/05/24 21:00 Temperature 98.2 F 98.2 F 98.2 F Temperature Source Oral Oral Oral Pulse Rate 88 75 73 Respiratory Rate 25 H 23 H 10 L Respiratory Effort Respiratory Pattern Blood Pressure 159/80 H 159/80 H 141/57 H Blood Pressure Mean 106 106 85 Pulse Ox 97 97 98 Oxygen Delivery Method Room Air Room Air 11/05/24 22:00 Temperature 98.2 F Temperature Source Oral Pulse Rate 75 Respiratory Rate 18 Respiratory Effort Respiratory Pattern Blood Pressure 141/57 H Blood Pressure Mean 85 Pulse Ox 96 Oxygen Delivery Method Room Air MDM MDM MDM Narrative Medical decision making narrative: HISTORY OF PRESENT ILLNESS: 69-year-old female presents with concern for generalized bodyaches, chills, polyuria. She notes her blood sugars at home and 350-400. Notes he took 20 units of insulin prior to arrival. Denies chest pain. Notes throbbing in her head. Denies marika abdominal pain. Denies cough fever chills. REVIEW OF SYSTEMS: Pertinent positives: Body aches, chills, polyuria, shortness of breath, headache Pertinent negatives: Chest pain PHYSICAL EXAM: Nursing triage notes reviewed, Vital signs reviewed Constitutional: please see mdm HENT: MMM Eyes: No scleral icterus Neck: Intact neck range of motion Lungs: Clear to auscultation, No wheezing or rales. No increased work of breathing, no conversational dyspnea, no accessory muscle use, no nasal flaring. No respiratory distress noted Heart: Regular rate and rhythm, No murmurs, No rubs and No gallops, 2+ distal pulses (radial, femoral, posterior tibial) in all extremities. Chest port noted, clean dry intact without signs of infection Abdomen: Soft, there is no tenderness, Extremities: No obvious deformity Neuro: Alert, oriented, grossly neurologically intact Skin: No rash or lesions noted MEDICAL DECISION MAKING: Chief Complaint: Hyperglycemia External records reviewed: Reviewed the patient medications: Currently on dapagliflozin 10 mg daily, glipizide 200 mg daily, insulin glargine 50 units at night Factors affecting care: Type 2 diabetes, hyperlipidemia, GERD, TIA, metastatic breast cancer, PE Social determinants of health: none History obtained from others: Son and izfybamr-zh-jtm Consults: none [facility] Narrative: The patient was initially hypertensive with a blood pressure 188/82, afebrile and nontoxic-appearing. Exam without focus of infection. I considered the following differential diagnosis: UTI, DKA, COVID/RSV/flu, pneumonia, intra-abdominal infection, bacteremia I obtained a broad lab and imaging workup including a lactate to further elucidate etiology of patient's complaints. ALL IMAGES (IF OBTAINED) HAVE BEEN PERSONALLY REVIEWED AND INTERPRETED BY MYSELF. EKG with normal sinus rhythm, normal axis, normal intervals, no signs of STEMI or right heart strain. No sign of pericarditis CBC without leukocytosis, severe anemia, no thrombocytopenia. BMP without evidence of significant electrolyte abnormalities, no anion gap, no acute kidney injury. Without significant Maddie abnormalities, no sign of metabolic acidosis or endorgan hypoperfusion with normal bicarb and anion gap. His baseline CKD COVID/flu/RSV Lactate elevated, repeat lactate after 2 L of fluid remained elevated but is downtrending LFT slightly elevated however her bilirubin is normal. High-sensitivity troponin is negative, no evidence of myocardial ischemia BNP within normal limits making heart failure less likely Urinalysis with glucosuria but no sign of definitive infection CT scan of the head was negative for ICH or mass or metastatic disease I have personally reviewed the patient's chest x-ray. Chest x-ray is unremarkable for pulmonary edema, pneumothorax, pneumonia or focal cardiopulmonary abnormality. CT scan of the abdomen pelvis showed no evidence of obvious intra-abdominal pathology no sign of intra-abdominal infection. No sign of gallstones The synthesis of the patient's history, physical exam, labs and images suggest no obvious source of infection. No clear etiology to explain the patient's elevated lactate. Given report of polyuria suspect could be related to dehydration. After use of fluid however her lactate did not resolve it was downtrending (from 2.6-2.4). Patient is high risk however given her age, multiple medical comorbidities, multiple sources of immunocompromise including diabetes and chemotherapy treatment. In fact she is approximately 6 days after last chemo which makes her very near the peak of her immunosuppression. With elevated lactate I was concerned about occult bacteremia. I offered broad-spectrum antibiotics and admission to the hospital to await cultures. The patient in the presence of her son and cgqeyjsd-jh-eqw noted she not want stay in the hospital. 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 Her vdkyhyta-qe-crh is a nurse and lives 8 minutes away. They stated they would watch her closely and return if any sign of infection developed. She was alert and orient x 3, she had capacity to make her medical decisions and chose to forego admission at this time. She stated she felt much better after fluids. And lieu of admission we marita blood and urine cultures to see if we can identify an occult infection. She agreed to return if symptoms change or worsen in any way. Will call if the cultures are positive. She was encouraged to continue oral rehydration at home. The patient and/or family, caregivers express understanding. The patient and/or family, caregivers agrees with the plan. Shared decision making: I will have a discussion with the patient and or visitors regarding risk/benefits of further testing or admission. They will be made aware of of the risk/benefits inherent in this decision they will be given the opportunity to voice understanding. Total critical care time today provided was at least 0 minutes. This excludes separately billable procedures. Critical care time (if documented) is secondary to the patient having high probability of clinically significant/life threatening deterioration in the patient's condition which required my urgent intervention. Impression: 1. Hyperglycemia 2. Polyuria 3. Dehydration 4. Elevated lactate Dispo: Discharge home This note was generated with eblizzation software. It may contain incorrect words, spelling, and punctuation that were not noted in review of the chart prior to signing. Lab Data Labs: Laboratory Results - last 24 hr 11/05/24 11/05/24 11/05/24 18:44 18:45 21:50 WBC 3.0 L RBC 3.90 L Hgb 13.5 Hct 39.3 MCV 100.8 H MCH 34.6 H MCHC 34.4 RDW Std Deviation 51.8 H RDW Coeff of Jazmine 14.1 Plt Count 208 MPV 9.6 Immature Gran % (Auto) 0.300 Neut % (Auto) 54.4 Lymph % (Auto) 32.1 [place] % (Auto) 8.8 Eos % (Auto) 2.4 Baso % (Auto) 2.0 H Absolute Neuts (auto) 1.6 L Absolute Lymphs (auto) 0.95 Nucleated RBC % 0 Sodium 134 L Potassium 3.9 Chloride 98 Carbon Dioxide 29.0 Anion Gap 8 BUN 24 H Creatinine 1.54 H Estim Creat Clear Calc 40.19 Est GFR (MDRD) Af Amer 43 L Est GFR (MDRD) Non-Af 35 L BUN/Creatinine Ratio 15.6 Glucose 241 H Lactic Acid 2.6 H* 2.4 H* Calcium 9.8 Total Bilirubin 0.50 AST 93 H ALT 71 H Alkaline Phosphatase 198 H Troponin I High Sens 6 B-Natriuretic Peptide 9.5 Total Protein 7.5 Albumin 3.6 Globulin 3.9 Albumin/Globulin Ratio 0.9 Lipase 29 L Urine Color Yellow Urine Clarity Clear Urine pH 6.0 Ur Specific [place] 1.010 Urine Protein 15 H Urine Glucose (UA) 1000 H Urine Ketones Negative Urine Occult Blood 25 H Urine Nitrite Negative Urine Bilirubin Negative Urine Urobilinogen Normal Ur Leukocyte Esterase 100 H Urine RBC 0-5 SEEN Urine WBC 10-25 SEEN Ur Squamous Epith Cells 0-5 SEEN Urine Bacteria RARE Urine Mucus 0 SEEN Radiography Diagnostic Testing: Clinical Impression(s) from Imaging Studies Abdomen/Pelvis CT 11/05/24 18:29 IMPRESSION: 1. No acute process. 2. Hepatic steatosis. 3. Diffuse osseous metastatic disease, similar to prior. One or more dose reduction techniques were used (e.g., Automated exposure control, adjustment of the mA and/or kV according to patient size, use of iterative reconstruction technique). Reading [facility] 11/05/24 18:29 IMPRESSION: No acute intracranial abnormality. Reading Location: [facility] Chest X-Ray 11/05/24 18:58 IMPRESSION: No acute cardiopulmonary process. 8 mm high-density area of nodularity projects over the right lung base. This likely corresponds to an area of sclerosis involving an anterior right rib on image 92 of the axial lung windows from the chest CT 05/23/2023. If there are persistent symptoms or clinical concern, short-term follow-up CT evaluation may be considered. Reading Location: [facility] Discharge Plan Triage Chief Complaint: Hyperglycemia ED Provider: Trever Terry Dx/Rx/DC Orders Clinical Impression: Acute hyperglycemia Prescriptions: New metoclopramide HCl [Reglan] 5 mg tablet 5 mg PO Q8H PRN PRN (Reason: nausea and vomiting) 30 Days Qty: 90 3RF No Action albuterol sulfate 0.63 mg/3 mL solution for nebulization 0.63 mg INHALATION Q4H Colace Clear 50 mg capsule 50 mg PO BID methadone 5 mg tablet 7.5 mg PO Q12H Rx Instructions: also takes 2.5mg in the afternoon oxycodone 5 mg capsule 10 mg PO Q4H PRN (Reason: Pain) lidocaine-prilocaine 2.5-2.5 % cream 1 applic topical ONCE PRN (Reason: port access) 30 Days Qty: 30 2RF lutein 40 mg capsule 40 mg PO DAILY Rx Instructions: administer with meals prochlorperazine maleate [Compazine] 5 mg tablet 5 mg PO TID PRN (Reason: nausea and vomiting) Qty: 30 0RF lorazepam 0.5 mg tablet 0.5 mg PO QHS meclizine [Dramamine (meclizine)] 25 mg tablet 25 mg PO DAILY PRN (Reason: dizziness) sertraline [Zoloft] 100 mg tablet 100 mg PO DAILY glipizide 2.5 mg tablet 2.5 mg PO DAILY insulin glargine [Basaglar KwikPen U-100 Insulin] 100 unit/mL (3 mL) insulin pen 50 unit subcut QPM metformin 1,000 MG tablet 1,000 mg PO BIDCM Patient Comments: LOWERS BLOOD SUGAR losartan 100 MG tablet 100 mg PO DAILY Patient Comments: BLOOD PRESSURE pwbrybnp-akb-QZ-lycopen-lutein 1 EACH tablet 1 ea PO QHS Patient Comments: MINERAL SUPPLEMENT atorvastatin 80 MG tablet 80 mg PO QHS Patient Comments: cholesterol metoprolol succinate 25 MG tablet 12.5 mg PO DAILY Patient Comments: hypertension ergocalciferol (vitamin D2) 50,000 UNIT capsule 50,000 unit PO SUWE Patient Comments: supplement albuterol sulfate 1 INHALER inhaler 2 puff inhalation Q4H PRN PRN (Reason: Shortness Of Breath) Patient Comments: shortness of breath aspirin 325 mg tablet 325 mg PO DAILY Patient Comments: heart health levothyroxine 150 mcg tablet 150 mcg PO MOTUWETHFRSA Patient Comments: thyroid Rx Instructions: 300mcg on SASU zolpidem 5 MG tablet 10 mg PO QHS PRN PRN (Reason: Sleep) dapagliflozin propanediol 5 mg tablet 10 mg PO DAILY cyclobenzaprine 10 mg tablet 10 mg PO BID PRN (Reason: muscle spasm) Qty: 10 0RF Ibrance 75 mg tablet 75 mg PO DAILY Qty: 21 11RF Rx Instructions: administer on days 1 through 21 of a 28-day treatment cycle Primary Care Provider: Ray Aguirre Referrals: Ray Aguirre MD [Primary Care Provider] - Activity Restrictions/Additional Instructions: Thank you for trusting us with your care today! Your labs and images were all reassuring. There is no obvious source of infection. Your lactate level remained persistently elevated despite IV fluids. This may mean you are profoundly dehydrated versus having a hidden infection. Cultures of your blood and urine were taken to assess for signs of infection. Testing your heart showed no signs of heart failure or damage to your heart. Please take Tylenol (2 pills, 650 mg), ibuprofen (2 pills, 400 mg) every 6 hours as needed for pain and fever control. Please take Reglan as needed for nausea vomiting control lightheaded control at home. Please return to the emergency department if your symptoms change or worsen. Specifically develop fatigue, fever, cough, burning or pain with urination, abdominal pain, vomiting. If your blood or urine cultures become positive for hidden infection we will call you to return to Emergency Department immediately. Please follow with your primary care physician for further outpatient evaluation and management. Print Language: Welsh Disposition Disposition: Home, Self Care
--- NOTE | 2024-11-05 18:29 | CT_ITS ---
EXAM: CT brain without IV contrast CLINICAL HISTORY: Nausea, pain COMPARISON: 08/31/2022 TECHNIQUE: Multiple contiguous axial images of the brain were obtained without the administration of intravenous contrast. Two-dimensional coronal and sagittal reformatted images were reconstructed. Low-dose imaging technique was utilized. FINDINGS: No evidence of acute intracranial hemorrhage, midline shift or mass effect. No definite CT evidence of acute territorial cortical infarction. No hydrocephalus. Cerebral volume is age-appropriate. Calvarium is intact. Paranasal sinuses and mastoid air cells are clear. Severe left TMJ osteoarthritis. CT/Brain/Head without Contrast IMPRESSION: No acute intracranial abnormality. Reading Location: [facility]
--- NOTE | 2024-11-05 18:29 | EKG12_ITS ---
Test Reason : Blood Pressure : */* mmHG Vent. Rate : 80 BPM Atrial Rate : 80 BPM P-R Int : 144 ms QRS Dur : 80 ms QT Int : 398 ms P-R-T Axes : 50 75 48 degrees QTcB Int : 459 ms Normal sinus rhythm Normal ECG Confirmed by Terrell Chavez ([id number]), manuscript editor HAFSA GENTILE ([id number]) on 11/07/2024 8:16:58 AM Referred By: Confirmed By: Terrell Chavez
--- NOTE | 2024-11-05 18:29 | CT_ITS ---
PROCEDURE: CT abdomen pelvis with IV contrast REASON FOR EXAM: Pain, nausea TECHNIQUE: Multiple contiguous axial images through the abdomen and pelvis were obtained after the administration of intravenous contrast. Two-dimensional coronal and sagittal reformatted images were reconstructed. Low-dose imaging technique was utilized. COMPARISON: 05/23/2023 FINDINGS: Lung bases are clear. Hepatic steatosis. Spleen, pancreas and adrenal glands are intact. Gallbladder is surgically absent. No significant biliary ductal dilation. Kidneys enhance symmetrically. Bilateral renal atrophy. Punctate nonobstructing right renal calculus. No hydronephrosis. Urinary bladder is intact. No bowel obstruction, focal bowel wall thickening or significant perienteric inflammation. Appendix is not visualized. No pelvic free fluid. No free air. Calcified nonaneurysmal abdominal aorta. No suspicious adenopathy. No acute soft tissue abnormality. No acute osseous abnormality. Extensive scattered osseous metastatic disease without pathologic fracture. CT/Abdomen/Pelvis W IV Cont ONLY IMPRESSION: 1. No acute process. 2. Hepatic steatosis. 3. Diffuse osseous metastatic disease, similar to prior. One or more dose reduction techniques were used (e.g., Automated exposure contr ol, adjustment of the mA and/or kV according to patient size, use of iterative reconstruction technique). Reading Location: [facility]
--- NOTE | 2024-11-05 18:58 | RAD_ITS ---
PROCEDURE: Portable upright chest radiograph, one view REASON FOR EXAM: Shortness of breath TECHNIQUE: Single AP upright chest radiograph was obtained. COMPARISON: 05/22/2021 FINDINGS: The cardiomediastinal silhouette is similar. Bones are osteopenic, grossly intact. Left Qqzble-V-Viqd remains. No pneumothorax, focal airspace consolidation, or pleural effusion. Possible nipple shadow or calcified granuloma projects over the right lung base measuring 8 mm. RAD/Chest 1 View (Portable) IMPRESSION: No acute cardiopulmonary process. 8 mm high-density area of nodularity project s over the right lung base. This likely corresponds to an area of sclerosis involving an anterior right rib on image 92 of the axial lung windows from the chest CT 05/23/2023. If there are persistent symptoms or clinical concern, short-term follow-up CT e valuation may be considered. Reading Location: [facility]
[2024-11-05 19:06] LABS: Absolute Lymphocyte Count 0.95 X10^3/uL (0.83-4.51); Absolute Neutrophil Count 1.6 X10^3/uL (2.0-7.7); Basophil# 0.06 X10^3/uL; Eosinophil# 0.07 X10^3/uL; Eosinophils% 2.4 % (0-5); Hematocrit 39.3 % (37-47); Hemoglobin 13.5 g/dL (12.0-15.0); Lymphocyte # 0.95 X10^3/ul (0.83-4.51); Lymphocyte % 32.1 % (19-41); Mean Corp Hgb Conc 34.4 g/dL (32-36); Mean Corpuscular Hgb 34.6 pg (27.0-32.0); Mean Corpuscular Volume 100.8 fL (81-99); Mean Platelet Vol. 9.6 fl (6.2-12.0); Monocyte# 0.26 X10^3/uL; Monocyte% 8.8 % (0-10); NRBC Flagged by Analyzer 0 % (0-5); Neutrophil # 1.61 X10^3/uL (2.7-7.7); Neutrophil % 54.4 % (47-70); Platelet Count 208 K/mm3 (150-450); RBC Distribution Width CV 14.1 % (11.6-14.6); RBC Distribution Width SD 51.8 fl (35.1-43.9)
[2024-11-05 19:06] LABS: Mucous, Urine 0 SEEN /hpf (<or=2+)
[2024-11-05 19:09] LABS: Color, Urine Yellow (Yellow); Glucose, Dipstick 1000 mg/dl (Normal); Ketone-Dipstick Negative (Negative); Leukocyte Esterase-Dipstick 100 /ul (Negative); Nitrite-Dipstick Negative (Negative); Occult Blood-Urine 25 /ul (Negative); Protein-Dipstick 15 mg/dl (Negative); Urine Bilirubin Dipstick Negative (Negative); Urine Clarity Clear (Clear); Urine Urobilinogen Normal (Normal)
[2024-11-05] MEDS: Morphine 4 MG/ML Syringe IV (19:11)
[2024-11-05] MEDS: 0.9% Normal Saline (1000mL) 1,000 ML 1000 ML IV (19:11)
[2024-11-05] MEDS: Metoclopramide 10 MG/2 ML Vial 5 MG IV (19:12)
[2024-11-05 19:15] VITALS: BP 159/80; PULSE 88; RESP 25; TEMP 36.8; O2SAT 97
[2024-11-05 19:20] LABS: White Blood Cells 10-25 SEEN /hpf (0-5)
[2024-11-05 19:21] LABS: Bacteria RARE /hpf (None Seen); Red Blood Cells-Urine 0-5 SEEN /hpf (0-5); Squamous Epithelial Cells - UA 0-5 SEEN /hpf (5-10)
[2024-11-05 19:27] LABS: ALB/GLOB Ratio 0.9 RATIO (0.9-2.4); AST(SGOT) 93 U/L (15-37); Alanine Aminotransfer ALT/SGPT 71 U/L (13-56); Albumin, Serum 3.6 g/dL (3.2-5.0); Alkaline Phosphatase 198 U/L (45-117); Anion Gap 8 (5-15); BUN 24 mg/dL (7-18); BUN/Creat Ratio 15.6 RATIO (10-20); Calcium,Total 9.8 mg/dL (8.5-10.1); Chloride 98 mmol/L (98-107); Creatinine, Serum 1.54 mg/dL (0.55-1.02); EST Glomerular Filtration Rate 35 mL/min (>60); Est Glom Filt Rate - Afr Amer 43 mL/min (>60); Estimated Creatinine Clearance 40.19 ml/min; Globulin 3.9 g/dL (2.2-4.2); Glucose 241 mg/dL (74-106); Lipase 29 U/L (73-393); Potassium 3.9 mmol/L (3.5-5.1); Protein, Total 7.5 g/dL (6.4-8.2); Sodium Level 134 mmol/L (136-145); Troponin-I HS 6 pg/mL (3.0-54.0)
[2024-11-05 19:45] LABS: Lactic Acid 2.6 mmol/L (0.4-1.9)
[2024-11-05 20:00] VITALS: BP 159/80; PULSE 75; RESP 23; TEMP 36.8; O2SAT 97
[2024-11-05] MEDS: 0.9% Normal Saline (1000mL) 1,000 ML 999 ML IV (20:08)
[2024-11-05 20:31] LABS: BNP,B-Type NATRIURETIC PEPTIDE 9.5 pg/mL (0-100)
[2024-11-05 21:00] VITALS: BP 141/57; PULSE 73; RESP 10; TEMP 36.8; O2SAT 98
[2024-11-05 22:00] VITALS: BP 141/57; PULSE 75; RESP 18; TEMP 36.8; O2SAT 96
[2024-11-05 22:35] LABS: Lactic Acid 2.4 mmol/L (0.4-1.9)
[2024-11-05 23:00] LABS: Reflex Lactate? Y
[2024-11-06 01:56] LABS: Reflex Lactate? Y
== END 2024-11-05 23:06 | disposition home or self-care (01) ==
PROVIDERS: Emergency Provider Emergency Medicine; PCP Family Medicine; Visit Provider Emergency Medicine
DX: E11.65 Type 2 diabetes mellitus with hyperglycemia (principal); K21.9 Gastro-esophageal reflux disease without esophagitis; R74.8 Abnormal levels of other serum enzymes; E78.00 Pure hypercholesterolemia, unspecified; E86.0 Dehydration; R35.89 Other polyuria; I10 Essential (primary) hypertension; I25.10 Atherosclerotic heart disease of native coronary artery without angina pectoris; Z79.84 Long term (current) use of oral hypoglycemic drugs; J45.909 Unspecified asthma, uncomplicated; R06.02 Shortness of breath; R51.9 Headache, unspecified
CPT/HCPCS: 36591; 70450; 71045; 74177; 80053; 81001; 83605; 83690; 83880; 84484; 85025; 87040; 87086; 87088; 87631; 93005; 96361; 96374; 96375; 99285; Q9967; A4216

== ENCOUNTER → 2024-11-09 | Outpatient (CLI) | payer MEDICARE, BC, SELFPAY ==
[2024-11-09 12:39] LABS: Cholesterol 155 mg/dL (<=200); High Density Lipoprotein 58 mg/dL; Low Density Lipoprotein Calc. 54 mg/dL; Triglycerides 212 mg/dL; Very Low Density Lipoprotein 42 mg/dL (5-40); cholesterol:hdl ratio screen 2.66
== END | disposition home or self-care (01) ==
LOC: MFPLAB 09:58
PROVIDERS: PCP Family Medicine; Referring Provider Family Medicine; Visit Provider Family Medicine
DX: E11.65 Type 2 diabetes mellitus with hyperglycemia (principal)
CPT/HCPCS: 36415; 80061

== ENCOUNTER → 2024-11-13 | Outpatient (CLI) | payer MEDICARE, BC, SELFPAY ==
--- NOTE | 2024-11-13 08:41 | NM_ITS ---
PROCEDURE: BONE SCAN WHOLE BODY REASON FOR EXAM: Metastatic breast cancer. Bilateral shoulder pain and bilateral hip pain. TECHNIQUE: Blood flow, blood pool, and delayed phase imaging of the whole-body after radiopharmaceutical administration RADIOPHARMACEUTICAL: 27 mCi Technetium-99m MDP IV COMPARISON: CORRELATION WITH EXISTING RELEVANT IMAGING STUDIES (i.e. x-ray, MRI, CT, etc.): Comparison is made with prior whole-body bone scan dated May 26, 2023. FINDINGS: Once again, there are multiple areas of increased radiopharmaceutical uptake. Increased uptake in both shoulders as well as bilateral ribs more prominent along the anterior aspect of the right 6th rib. Foci are also seen of increased uptake in the dorsal and lumbar spines. Increased activity in both sacrum more prominent on the left side as well as the posterior left iliac bone. NM/Bone Scan Whole Body IMPRESSION: Multifocal bilateral metastatic deposits. Reading Location: [id number]
== END | disposition home or self-care (01) ==
LOC: NM 08:40
PROVIDERS: PCP Family Medicine; Referring Provider Nurse Practitioner Family; Visit Provider Nurse Practitioner Family
DX: C50.919 Malignant neoplasm of unspecified site of unspecified female breast (principal); C79.51 Secondary malignant neoplasm of bone; C79.9 Secondary malignant neoplasm of unspecified site
CPT/HCPCS: 78306; A9503

== ENCOUNTER → 2024-11-13 | Outpatient (CLI) | payer MEDICARE, BC, SELFPAY ==
[2024-11-13 09:43] LABS: ALB/GLOB Ratio 1.5 RATIO (0.9-2.4); AST(SGOT) 58 U/L (<=31); Alanine Aminotransfer ALT/SGPT 51 U/L (<=34); Albumin, Serum 4.1 g/dL (3.4-4.8); Alkaline Phosphatase 157 U/L (35-104); Anion Gap 15 (5-15); BUN 28 mg/dL (4-19); BUN/Creat Ratio 22.4 RATIO (10-20); Calcium,Total 9.9 mg/dL (7.6-11.0); Carbon Dioxide 23.2 mmol/L (21.0-32.0); Chloride 100 mmol/L (98-108); Creatinine, Serum 1.26 mg/dL (0.70-1.20); EST Glomerular Filtration Rate 46 (>60); Globulin 2.8 g/dL (2.2-4.2); Glucose 198 mg/dL (70-99); Potassium 4.7 mmol/L (3.3-5.1); Protein, Total 6.8 g/dL (5.9-8.4); Sodium Level 138 mmol/L (133-145); Total Bilirubin 0.36 mg/dL (0.00-1.30)
[2024-11-13 09:58] LABS: Lactic Acid 2.2 mmol/L (0.0-2.0)
== END | disposition home or self-care (01) ==
LOC: LAB 08:55
PROVIDERS: PCP Family Medicine; Referring Provider Family Medicine; Visit Provider Family Medicine
DX: E11.65 Type 2 diabetes mellitus with hyperglycemia (principal)
CPT/HCPCS: 36415; 80053; 83605

== ENCOUNTER → 2025-06-17 | Outpatient (CLI) | payer MEDICARE, BC, SELFPAY ==
--- NOTE | 2025-06-17 07:09 | NM_ITS ---
PROCEDURE: BONE SCAN WHOLE BODY 06/17/2025 REASON FOR EXAM: F/U METASTATIC BREAST CANCER TECHNIQUE: Procedure Code: NMBO Modality: NM Procedure: BONE SCAN WHOLE BODY Anterior and posterior delayed phase imaging of the whole-body after radiopharmaceutical administration . Also, bilateral lateral images of the head and neck were performed. RADIOPHARMACEUTICAL: 26 mCi Technetium-99m MDP IV COMPARISON: Whole-body bone scan of 07/20/2021. FINDINGS: Marked interval worsening of the osseous metastatic disease is seen compared with the prior bone scan of 07/20/2021, most apparent at the spine, sacrum, sternum, right clavicle, bilateral pelvis, bilateral ribs, bilateral scapulae, with more subtle but significant abnormal uptake also seen in the bilateral femora and bilateral humeral also identified. Although nonspecific, increased bifrontal uptake is seen, as well. Periodontal disease is seen. NM/Bone Scan Whole Body IMPRESSION: Extensive/severe axial and appendicular osseous metastatic disease, overall sig nificantly worse from the prior study of 2020. Reading Location: [place] [id number]
--- NOTE | 2025-06-17 07:09 | NM_ITS ---
PROCEDURE: BONE SCAN WHOLE BODY 06/17/2025 REASON FOR EXAM: F/U METASTATIC BREAST CANCER TECHNIQUE: Procedure Code: NMBO Modality: NM Procedure: BONE SCAN WHOLE BODY Anterior and posterior delayed phase imaging of the whole-body after radiopharmaceutical administration . Also, bilateral lateral images of the head and neck were performed. RADIOPHARMACEUTICAL: 26 mCi Technetium-99m MDP IV COMPARISON: Whole-body bone scan of 07/20/2021. FINDINGS: Marked interval worsening of the osseous metastatic disease is seen compared with the prior bone scan of 07/20/2021, most apparent at the spine, sacrum, sternum, right clavicle, bilateral pelvis, bilateral ribs, bilateral scapulae, with more subtle but significant abnormal uptake also seen in the bilateral femora and bilateral humeral also identified. Although nonspecific, increased bifrontal uptake is seen, as well. Periodontal disease is seen. NM/Bone Scan Whole Body IMPRESSION: Extensive/severe axial and appendicular osseous metastatic disease, overall sig nificantly worse from the prior study of 2020. Reading Location: [place] [address]
--- OUTSIDE RECORDS SUMMARY | 2025-06-17 07:22 | XMS RPT_ITS | CCD ---
Author Organization [facility] Care Team Providers Care Auto Service Representative Name Role Phone PROVIDER, UNKNOWN Admitting Unavailable PROVIDER, UNKNOWN Attending Unavailable LUCIANO ADAM Attending Unavailable CHELSEA ANGUIANO Referring Unavailable Dr. Adolfo Aguirre Primary Care Provider Dr. Adolfo Aguirre Referring Provider Karli, Dr. Sanches Attending Provider Dr. Harrison Gomez Attending Provider [phone] Adolfo Aguirre Primary Care Provider Dr. Adolfo Aguirre Referring Provider Karli, Dr. Sanches Attending Provider Dr. Adolfo Aguirre Primary Care Provider [phone] Dr. Adolfo [facility]irre Ref[facility] Sanches Attending Provider Aakash MIRANDA NP-Melissa Weinberg Attending Provider Dr. Kang Pagan Attending Provider Dr. Adolfo Aguirre Primary Care Provider [phone] Dr. Adolfo Aguirre Referring Provider Karli, Dr. Sanches Attending Provider Dr. Adolfo Aguirre Primary Care Provider [phone] Dr. Adolfo Aguirre Referring Provider Karli, Dr. Sanches Attending Provider Dr. Harrison Gomez Attending Provider [phone] Nereida, IMPORT CUSTOMER SERVICE MANAGER-C Ngozi Referring Provider Unavail able TAVARES FONTENOT Attending Unavailable RAE AGUIRRE Referring Unavailvito e RAE AGUIRRE Primary Care Unavailabl e Timothy, Dr. Mata Primary Care Provider Timothy, Dr. Mata Referring Provider Karli, Dr. Sanches Attending Provider Aakash IMPORT CUSTOMER SERVICE MANAGER, IMPORT CUSTOMER SERVICE MANAGER-C Sultana Attending Provider Timothy, Dr. Mata Primary Care Provider Timothy, Dr. Mata Referring Provider Karli, Dr. Sanches Attending Provider Dr. Chelsea Anguiano Attending Provider Timothy, Dr. Mata Primary Care Provider Timothy, Dr. Mata Referring Provider Karli, Dr. Sanches Attending Provider Aakash IMPORT CUSTOMER SERVICE MANAGER, IMPORT CUSTOMER SERVICE MANAGER-C Sultana Attending Provider Dr. Rae Aguirre MD Primary Care Provider Dr. Rae Aguirre MD Referring Provider Karli FELICIANO, Dr. Sanches Attending Provider Dr. Kang Pagan MD Attending Provider Aakash IMPORT CUSTOMER SERVICE MANAGER-C, Sultana Attending Provider Dr. Chelsea Anguiano DO Attending Provider Dr. Kang Pagan MD Referring Provider Dr. Trever Terry DO Attending Provider Dr. Trever Terry DO Emergency Provider Dr. Rae Aguirre MD Attending Provider Aakash IMPORT CUSTOMER SERVICE MANAGER-C, Sultana Referring Provider Dr. Chelsea Anguiano DO Attending Provider Dr. Kang Pagan MD Referring Provider Timothy FELICIANO, Dr. Bell Primary Care Provider Timothy FELICIANO, Dr. Bell Referring Provider Karli FELICIANO, Dr. Sanches Attending Provider Dank DO, Dr. Banks Attending Provider Latasha FELICIANO, Dr. Kapadia Referring Provider Dr. Chelsea Anguiano DO Attending Provider Latasha FELICIANO, Dr. Kapadia Referring Provider Latasha FELICIANO, Dr. Kapadia Referring Provider Timothy FELICIANO, Dr. Bell Primary Care Provider Timothy FELICIANO, Dr. Bell Referring Provider Aakash IMPORT CUSTOMER SERVICE MANAGER-C, Sultana Attending Provider Dank AVENDANO, Dr. Banks Referring Provider Latasha FELICIANO, Dr. Kapadia Referring Provider Timothy FELICIANO, Dr. Bell Primary Care Provider Timothy FELICIANO, Dr. Bell Referring Provider [phone] Aakash IMPORT CUSTOMER SERVICE MANAGER-C, Sultana Attending Provider Latasha FELICIANO, Dr. Kapadia Referring Provider Timothy FELICIANO, Dr. Bell Primary Care Provider Timothy FELICIANO, Dr. Bell Referring Provider Karli FELICIANO, Dr. Sanches Attending Provider Latasha FELICIANO, Dr. Kapadia Referring Provider Rae Aguirre Primary Care Unavailable Myron Calvillo Attending Unavailable Rae Aguirre Referring Unavailable Rae Aguirre Primary Care Unavailable Aakash IMPORT CUSTOMER SERVICE MANAGER, Sultana Attending Unavailable Rae Aguirre Referring Unavailable Aakash IMPORT CUSTOMER SERVICE MANAGER, Sultana Attending Unavailable Rae Aguirre Referring Unavailable Timothy, Rae Primary Care Unavailable Ranney, Christopher Primary Care Unavailable IsckarusKang Attending Unavailable Ranney, Christopher Referring Unavailable Ranney, Christopher Attending Unavailable Ranney, Christopher Referring Unavailable Ranney, Christopher Primary Care Unavailable Ranney, Christopher Attending Unavailable Ranney, Christopher Referring Unavailable Ranney, Christopher Primary Care Unavailable Chelsea Anguiano Attending Unavailable Chelsea Anguiano Referring Unavailable Ranney, Christopher Primary Care Unavailable Chelsea Anguiano Attending Unavailable Ranney, Christopher Primary Care Unavailable Chelsea Anguiano Attending Unavailable Joseph Anguianoe Referring Unavailable Ranney, Christopher Primary Care Unavailable Ranney, Christopher Primary Care Unavailable Aakash IMPORT CUSTOMER SERVICE MANAGER, Sultana Attending Unavailable Ranney, Christopher Referring Unavailable DankChelsea slade Attending Unavailable Ranney, Christopher Referring Unavailable Ranney, Christopher Primary Care Unavailable Ranney, Christopher Referring Unavailable PraMyron cross Attending Unavailable Ranney, Christopher Primary Care Unavailable Ranney, Christopher Referring Unavailable Myron Calvillo Attending Unavailable Ranney, Christopher Primary Care Unavailable Ranney, Christopher Referring Unavailable Aakash IMPORT CUSTOMER SERVICE MANAGER, Sultana Attending Unavailable Ranney, Christopher Primary Care Unavailable Ranney, Christopher Primary Care Unavailable Myron Calvillo Attending Unavailable Ranney, Christopher Referring Unavailable Ranney, Christopher Primary Care Unavailable Myron Calvillo Attending Unavailable Ranney, Christopher Referring Unavailable Ranney, Christopher Primary Care Unavailable Ranney, Christopher Referring Unavailable Myron Calvillo Attending Unavailable Ranney, Christopher Primary Care Unavailable Ranney, Christopher Referring Unavailable Myron Calvillo Attending Unavailable Ranney, Christopher Primary Care Unavailable Ranney, Christopher Referring Unavailable Aakash IMPORT CUSTOMER SERVICE MANAGER, Sultana Attending Unavailable Ranney, Christopher Primary Care Unavailable Chelsea Anguiano Attending Unavailable Donnaus, Mansour Referring Unavailable Trever Terry Attending Unavailable Ranney, Christopher Primary Care Unavailable Aakash IMPORT CUSTOMER SERVICE MANAGER, Sultana Attending Unavailable Aakash IMPORT CUSTOMER SERVICE MANAGER, Sultana Referring Unavailable Ranney, Christopher Primary Care Unavailable Ranney, Christopher Primary Care Unavailable Ranney, Christopher Referring Unavailable Myron Calvillo Attending Unavailable Ranney, Christopher Primary Care Unavailable Ranney, Christopher Referring Unavailable PraMyron cross Attending Unavailable Ranney, Christopher Referring Unavailable Ranney, Christopher Primary Care Unavailable Aakash IMPORT CUSTOMER SERVICE MANAGER, Sultana Attending Unavailable Chelsea Anguiano Referring Unavailable Chelsea Anguiano Attending Unavailable Rae Aguirre Primary Care Unavailable Rae Aguirre Primary Care Unavailable Chelsea Anguiano Attending Unavailable Rae Aguirre Referring Unavailable Chelsea Anguiano Attending Unavailable Chelsea Anguiano Referring Unavailable Rae Aguirre Primary Care Unavailable Timothy EFLICIANO, Dr. Bell Primary Care Physicia n Dank AVENDANO, Dr. Banks Attending Physician Dr. Chelsea Anguiano DO Referring Provider Timothy FELICIANO, Dr. Bell Referring Provider Aakash IMPORT CUSTOMER SERVICE MANAGER-CSultana Attending Physician Karli FELICIANO, Dr. Sanches Attending Physician Latasha FELICIANO, Dr. Kapadia Referring Provider [phone] Allergies Allergy Classification Reported Allergen(s) Allergy Type Date of Onset Reaction(s) Facility (20 sources) Qbuifce-Pkf-Hgb Reductase Inhibitor; Translations: [Ejmdsks-Gax-Vj a Reductase Inhibitor] Propensity to adverse reactions 2 elevated liver enzymes [facility] (1 source) Hmg-Coa Reductase Inhibitors (Statins); Translations: [[id number] A REDUCTASE INHIBITORS] Propensity to adverse reactions to drug (disorder) 0 [facility] Medications Current Medications Medication Drug Class(es) Dates Sig (Normalized) Sig (Original) albuterol 0.21 mg/ml inhalation solution (20 sources) beta2-Adrenergic Agonist Start: 07-03-2019 take 0.63 mg by inhalation every four hours Albuterol Sulfate 0.63 mg/3 mL solution for nebulization Active 0.63 mg INHALATION Q4H July 03, 2019 12:00am Complies with drug therapy Start: 11-23-2018 End: 07-03-2019 take 1 puff(s) by mouth every six hours as needed Albuterol Sulfate Discontinued 1 PUFF PO EVERY 6 HOURS NEEDED November 23, 2018 1:02pm July 03, 2019 1:18pm Start: 11-23-2018 End: 07-03-2019 Albuterol Sulfate 1 INHALER inhaler Discontinued 1 NMA PO EVERY 6 HOURS NEEDED as needed for Sob &/Or Wheezing November 23, 2018 12:00am July 03, 2019 1:18pm Start: 11-23-2018 End: 07-03-2019 take 1 puff(s) by mouth every six hours as needed Albuterol Sulfate Discontinued 1 PUFF PO EVERY 6 HOURS NEEDED November 23, 2018 12:00am July 03, 2019 1:18pm Start: 07-09-2015 take 1 puff(s) by in halation every four hours as needed Albuterol Sulfate Active 2 PUFF INHALATION EVERY 4 HOURS NEEDED July 09, 2015 2:37pm Start: 07-09-2015 Albuterol Sulf ate 1 INHALER inhaler Active 2 NMA INHALATION EVERY 4 HOURS NEEDED as needed for Shortness Of Breath July 09, 2015 12:00am Complies with drug therapy Start: 07-09-2015 Albuterol Sulf ate 1 INHALER inhaler Active 2 NMA INHALATION EVERY 4 HOURS NEEDED as needed for Shortness Of Breath July 09, 2015 12:00am Start: 07-09-2015 take 1 puff(s) by in halation every four hours as needed Albuterol Sulfate Active 2 PUFF INHALATION EVERY 4 HOURS NEEDED July 08, 2015 11:00pm Start: 07-09-2015 take 1 puff(s) by in halation every four hours as needed Albuterol Sulfate Active 2 PUFF INHALATION EVERY 4 HOURS NEEDED July 09, 2015 12:00am aspirin 325 mg oral tablet (20 sources) Platelet Aggregation Inhibitor, Nonsteroidal Anti-inflammatory Drug Start: 01-04-2022 take 1 tablet by mouth once daily Aspirin 325 mg tablet Active 325 mg PO DAILY January 04, 2022 3:13pm Complies with drug therapy Start: 07-09-2015 End: 01-04-2022 take 1 tablet by mouth twice daily Aspirin 325 MG tablet Discontinued 325 mg PO TWICE A DAY July 09, 2015 12:00am January 04, 2022 3:20pm Start: 07-02-2013 End: 06-07-2014 take 1 tablet by mouth once daily Aspirin 325 MG tablet Discontinued 325 mg PO DAILY@0800 July 02, 2013 12:00am June 07, 2014 2:04pm atorvastatin 80 mg oral tablet (20 sources) HMG-CoA Reductase Inhibitor Start: 07-09-2015 take 1 tablet by mouth at bedtime Atorvastatin 80 MG tablet Active 80 mg PO AT BEDTIME July 09, 2015 12:00am Complies with drug therapy cyclobenzaprine hydrochloride 10 mg oral tablet (20 sources) Muscle Relaxant Start: 04-22-2021 take 1 tablet by mouth twice daily as needed for muscle spasms Cyclobenzaprine 10 mg tablet Active 10 mg PO TWICE A DAY as needed for muscle spasm 10 April 22, 2021 12:00am Complies with drug therapy ergocalciferol 1.25 mg oral capsule (20 sources) Provitamin D2 Compound Start: 07-09-2015 Ergocalciferol (Vitamin D2) 50,000 UNIT capsule Active 75982 U PO SUWE July 09, 2015 12:00am Complies with drug therapy glipiZIDE 2.5 mg oral tablet (20 sources) Sulfonylurea Start: 09-27-2023 take 1 tablet by mouth once daily Glipizide 2.5 mg tablet Active 2.5 mg PO DAILY September 27, 2023 1:00am Complies with drug therapy Start: 07-09-2015 End: 04-19-2022 take 1 tablet by mouth twice daily Glipizide 5 MG tablet Discontinued 5 mg PO TWICE A DAY July 09, 2015 12:00am April 19, 2022 11:59am 3 ml insulin glargine 100 unt/ml pen injector (12 sources) Insulin Analog Start: 07-26-2024 Insulin Glargi ne (Basaglar Kwikpen U-100 Insulin) 100 unit/mL (3 mL) insulin pen Active 50 U SC EVERY EVENING July 26, 2024 1:00am Complies with drug therapy levothyroxine sodium 0.15 mg oral tablet (20 sources) l-Thyroxine Start: 07-09-2015 End: 04-26-2022 Levothyroxine 150 mcg tablet Active 150 ug PO MOTUWETHFRSA April 26, 2022 3:00pm 300mcg on SASU Complies with drug therapy lidocaine 25 mg/ml / prilocaine 25 mg/ml topical cream (20 sources) Antiarrhythmic, Amide Local Anesthetic Start: 05-23-2021 Lidocaine-Prilocaine 2.5-2.5 % cream Active 1 NMA TOPICAL ONCE as needed for port access 30 May 23, 2021 12:00am 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 malignant neoplasm of unspecified site Malignant neoplasm of unspecified site of unspecified female breast Complies with drug therapy Start: 05-23-2021 Lidocaine-Pril ocaine Active 1 APPLIC TOPICAL ONCE May 23, 2021 12:00am LORazepam 0.5 mg oral tablet (19 sources) Benzodiazepine Start: 04-19-2022 take 1 tablet by mouth at bedtime Lorazepam 0.5 mg tablet Active 0.5 mg PO AT BEDTIME April 19, 2022 12:00am Complies with drug therapy losartan potassium 100 mg oral tablet (20 sources) Angiotensin 2 Receptor Ruddy Start: 07-02-2013 take 1 tablet by mouth once daily Losartan 100 MG tablet Active 100 mg PO DAILY July 02, 2013 12:00am Complies with drug therapy meclizine hydrochloride 25 mg oral tablet (19 sources) Antiemetic Start: 04-19-2022 take 1 tablet by mouth once daily as needed for dizziness Meclizine (Dramamine (Meclizine)) 25 mg tablet Active 25 mg PO DAILY as needed for dizziness April 19, 2022 12:00am Complies with drug therapy metFORMIN hydrochloride 1000 mg oral tablet (20 sources) Biguanide Start: 07-02-2013 take 1 tablet by mouth twice daily at mealtime Metformin 1,000 MG tablet Active 1000 mg PO TWICE DAILY WITH MEALS July 02, 2013 12:00am Complies with drug therapy methadone hydrochloride 5 mg oral tablet (20 sources) Opioid Agonist Start: 05-03-2023 take 2.5 mg by mouth every twelve hours Methadone Active 7.5 MG PO Q12H May 03, 2023 10:47am also takes 2.5mg in the afternoon Start: 04-26-2022 End: 05-03-2023 take 2.5 mg by mouth every twelve hours Methadone 5 mg tablet Active 7.5 mg PO Q12H 0 May 03, 2023 10:47am also takes 2.5mg in the afternoon Complies with drug therapy Start: 05-11-2021 End: 04-26-2022 take 1 tablet by mouth every twelve hours Methadone 5 mg tablet Discontinued 2.5 mg PO Q12H 0 May 11, 2021 12:00am April 26, 2022 3:01pm Start: 05-11-2021 End: 04-26-2022 take 2.5 mg by mouth every twelve hours Methadone Discontinued 2.5 MG PO Q12H May 11, 2021 12:00am April 26, 2022 3:01pm metoclopramide 5 mg oral tablet (12 sources) Dopamine-2 Receptor Antagonist Start: 11-05-2024 take 1 tablet by mouth every eight hours as needed for nausea and vomiting Metoclopramide Hcl (Reglan) 5 mg tablet Active 5 mg PO EVERY 8 HOURS NEEDED as needed for nausea and vomiting 90 30 3 November 05, 2024 11:58pm Complies with drug therapy 24 hr metoprolol succinate 25 mg extended release oral tablet (20 sources) beta-Adrenergic Ruddy Start: 07-09-2015 Metoprolol Succinate 25 MG tablet Active 12.5 mg PO DAILY July 09, 2015 12:00am Complies with drug therapy Start: 07-09-2015 take 12.5 mg by mout h once daily Metoprolol Succinate Active 12.5 MG PO DAILY July 09, 2015 12:00am Difpvqwr-Yuc-Cm-Lycopen-Lute in (9 sources) Start: 07-02-2013 Ddlaveie-Uxd-Th-Lycopen-Lute in Active 1 EACH PO AT BEDTIME July 02, 2013 8:21am Start: 07-02-2013 Vtvqburf-Qcf-S h-Ecuserf-Wgayzg Active 1 EACH PO AT BEDTIME July 01, 2013 11:00pm Start: 07-02-2013 Jahxqciu-Ybv-G a-Yqwaudf-Bplymp Active 1 EACH PO AT BEDTIME July 02, 2013 12:00am Ljbchmxv-Opi-Zu-Lycopen-Lute in 1 EACH tablet (12 sources) Start: 07-02-2013 Rzvgqeug-Cja-Px-Lycopen-Lute in 1 EACH tablet Active 1 NMA PO AT BEDTIME July 02, 2013 12:00am Complies with drug therapy Start: 07-02-2013 Jwtmpozd-Jnx-B y-Tzmpobc-Yapawb 1 EACH tablet Active 1 NMA PO AT BEDTIME July 02, 2013 12:00am ondansetron 4 mg oral tablet (8 sources) Serotonin-3 Receptor Antagonist Start: 02-12-2025 take 1 tablet by mouth every eight hours as needed for nausea Ondansetron Hcl 4 mg tablet Active 4 mg PO Q8H as needed for nausea and vomiting 14 0 February 12, 2025 12:00am take one tab PO q8 hrs prn nausea Complies with drug therapy oxyCODONE hydrochloride 5 mg oral capsule (20 sources) Opioid Agonist Start: 05-03-2023 take 2 capsules by mouth every four hours as needed for pain Oxycodone 5 mg capsule Active 10 mg PO Q4H as needed for Pain 0 May 03, 2023 10:48am Complies with drug therapy Start: 05-03-2023 take 10 mg by mouth every four hours Oxycodone Active 10 MG PO Q4H May 03, 2023 10:48am Start: 04-26-2022 End: 05-03-2023 take 1 capsule by mouth every four hours as needed for pain Oxycodone 5 mg capsule Discontinued 5 mg PO Q4H as needed for Pain 0 April 26, 2022 3:00pm May 03, 2023 10:48am Start: 05-11-2021 End: 04-26-2022 take 2.5 mg by mouth every four hours as needed for pain Oxycodone 5 mg capsule Discontinued 2.5 mg PO Q4H as needed for Pain 0 May 11, 2021 12:00am April 26, 2022 3:01pm Start: 05-11-2021 End: 04-26-2022 take 2.5 mg by mouth every four hours Oxycodone Discontinued 2.5 MG PO Q4H May 11, 2021 12:00am April 26, 2022 3:01pm Start: 04-27-2021 End: 05-04-2021 take 1 tablet by mouth every four to six hours as needed for pain Oxycodone 5 mg tablet Discontinued 5 mg PO EVERY 6 HOURS as needed for pain 20 7 0 April 27, 2021 May 03, 2021 12:00am May 04, 2021 12:01am Back pain Malignant neoplasm metastatic to bone Dorsalgia, unspecified Secondary malignant neoplasm of bone take 1 tab PO q4-6 hours prn pain prochlorperazine 5 mg oral tablet (20 sources) Phenothiazine Start: 11-30-2021 take 1 tablet by mouth three times daily as needed for nausea and vomiting Prochlorperazine Maleate (Compazine) 5 mg tablet Active 5 mg PO THREE TIMES A DAY as needed for nausea and vomiting 30 0 November 30, 2021 10:35am Complies with drug therapy Start: 05-20-2021 End: 11-30-2021 take 2.5 mg by mouth three times daily as needed for nausea and vomiting Prochlorperazine Maleate (Compazine) 5 mg tablet Discontinued 2.5 mg PO THREE TIMES A DAY as needed for nausea and vomiting May 20, 2021 10:39am November 30, 2021 10:36am Start: 05-11-2021 End: 05-20-2021 take 1 tablet by mouth three times daily as needed for nausea and vomiting Prochlorperazine Maleate (Compazine) 5 mg tablet Discontinued 5 mg PO THREE TIMES A DAY as needed for nausea and vomiting 30 0 May 11, 2021 12:00am May 20, 2021 10:39am sertraline 100 mg oral tablet (20 sources) Serotonin Reuptake Inhibitor Start: 02-09-2023 take 1 tablet by mouth once daily Sertraline (Zoloft) 100 mg tablet Active 100 mg PO DAILY February 09, 2023 12:00am Complies with drug therapy Start: 11-30-2021 End: 02-09-2023 take 1 tablet by mouth once daily Sertraline (Zoloft) 50 mg tablet Discontinued 50 mg PO DAILY November 30, 2021 12:00am February 09, 2023 1:25pm Start: 04-19-2017 End: 04-22-2021 take 1 tablet by mouth once daily Sertraline 50 MG tablet Discontinued 75 mg PO DAILY 45 5 April 19, 2017 2:13pm April 22, 2021 12:18am Take 1 and 1/2 tablets daily to equal 75 mg Start: 07-08-2016 End: 04-19-2017 Sertraline 50 MG tablet Disc ontinued 75 mg PO DAILY July 08, 2016 12:00am April 19, 2017 2:13pm Start: 07-08-2016 End: 04-22-2021 take 1 tablet by mouth once daily Sertraline Discontinued 75 MG PO DAILY 45 April 19, 2017 2:13pm April 22, 2021 12:18am Take 1 and 1/2 tablets daily to equal 75 mg tamoxifen 20 mg oral tablet (20 sources) Estrogen Agonist/Antagonist Start: 04-04-2025 End: 05-06-2025 take 1 tablet by mouth once daily Tamoxifen 20 mg tablet Active 100 mg PO daily 150 30 5 May 06, 2025 5:10pm Complies with drug therapy Start: 05-11-2021 End: 04-19-2022 take 1 tablet by mouth twice daily Tamoxifen 20 mg tablet Discontinued 20 mg PO TWICE A DAY 120 60 3 October 26, 2021 3:55pm April 19, 2022 12:15pm zolpidem tartrate 5 mg oral tablet (20 sources) gamma-Aminobutyric Acid-ergic Agonist Start: 12-07-2016 take 2 tablets by mouth at bedtime as needed for sleep Zolpidem 5 MG tablet Active 10 mg PO AT BEDTIME NEEDED as needed for Sleep December 07, 2016 12:00am Complies with drug therapy Start: 12-07-2016 take 10 mg by mouth at bedtime as needed Zolpidem Active 10 MG PO AT BEDTIME NEEDED December 07, 2016 12:00am Completed/Discontinued Medications Medication Drug Class(es) Dates Sig (Normalized) Sig (Original) anastrozole 1 mg oral tablet (20 sources) Aromatase Inhibitor Start: 07-09-2015 End: 04-19-2017 take 1 tablet by mouth once daily Anastrozole 1 MG tablet Discontinued 1 mg PO DAILY July 09, 2015 12:00am April 19, 2017 2:13pm apixaban 5 mg oral tablet (20 sources) Factor Xa Inhibitor Start: 11-30-2021 End: 04-19-2022 take 1 tablet by mouth twice daily Apixaban (Eliquis) 5 mg tablet Discontinued 5 mg PO TWICE A DAY 60 0 January 25, 2022 1:34pm April 19, 2022 11:59am Start: 11-05-2021 End: 11-30-2021 take 1 tablet by mouth once Apixaban (Eliquis Dvt-Pe T reat 30d Start) 5 mg (74 tabs) tablets,dose pack Discontinued 5 mg PO ONCE 74 30 0 November 05, 2021 1:00am December 04, 2021 12:00am November 30, 2021 10:33am ciprofloxacin 500 mg oral tablet (20 sources) Quinolone Antimicrobial Start: 10-27-2023 End: 10-30-2023 take 1 tablet by mouth twice daily Ciprofloxacin Hcl 500 mg tablet Discontinued 500 mg PO TWICE A DAY 6 3 0 October 27, 2023 1:00am October 29, 2023 1:00am October 30, 2023 1:02am Start: 06-07-2022 End: 03-08-2023 take 1 tablet by mouth twice daily Ciprofloxacin Hcl (Cipro) 500 mg tablet Discontinued 500 mg PO TWICE A DAY 6 0 June 07, 2022 12:00am March 08, 2023 3:09pm dapagliflozin 5 mg oral tablet (20 sources) Sodium-Glucose Cotransporter 2 Inhibitor Start: 09-20-2019 take 10 mg by mouth once daily Dapagliflozin Propanediol Active 10 MG PO DAILY September 20, 2019 4:26pm Start: 06-13-2019 End: 05-30-2025 take 1 tablet by mouth once daily Dapagliflozin Propanediol 5 mg tablet Discontinued 10 mg PO DAILY September 20, 2019 4:26pm May 30, 2025 2:25pm docusate sodium 50 mg oral capsule (20 sources) Start: 01-04-2022 End: 05-30-2025 take 1 capsule by mouth twice daily Docusate Sodium (Colace Clear) 50 mg capsule Discontinued 50 mg PO TWICE A DAY January 04, 2022 3:15pm May 30, 2025 2:25pm Start: 07-03-2019 End: 01-04-2022 take 1 capsule by mouth once daily Docusate Sodium (Colace Clear) 50 mg capsule Discontinued 50 mg PO DAILY July 03, 2019 12:00am January 04, 2022 3:20pm docusate sodium 50 mg / sennosides, jail 8.6 mg oral tablet (20 sources) Start: 07-02-2013 End: 07-03-2019 Sennosides-Docusate Sodium 1 EACH tablet Discontinued 2 NMA PO TWICE A DAY July 02, 2013 12:00am July 03, 2019 1:18pm Start: 07-02-2013 End: 07-03-2019 Sennosides-Docusate Sodium D iscontinued 2 EACH PO TWICE A DAY July 02, 2013 12:00am July 03, 2019 1:18pm lutein 40 mg oral capsule (20 sources) Start: 11-30-2021 End: 01-17-2025 take 1 capsule by mouth once daily at mealtime Lutein 40 mg capsule Discontinued 40 mg PO DAILY November 30, 2021 12:00am January 17, 2025 1:09pm administer with meals OLANZapine 5 mg oral tablet (20 sources) Atypical Antipsychotic Start: 07-06-2021 End: 04-19-2022 take 1 tablet by mouth once daily for nausea Olanzapine (Zyprexa) 5 mg tablet Discontinued 5 mg PO DAILY July 06, 2021 12:00am April 19, 2022 12:01pm take day prior to chemo and 2-3 days after chemo for nausea palbociclib 75 mg oral tablet (20 sources) Kinase Inhibitor Start: 12-05-2023 End: 05-30-2025 Palbociclib (Ibrance) 75 mg tablet Discontinued 75 mg PO DAILY 02 08August 16, 2024 11:48am May 30, 2025 2:27pm administer on days 1 through 21 of a 28-day treatment cycle Start: 04-27-2022 End: 12-05-2023 Palbociclib (Ibrance) 100 mg Capsule Discontinued 100 mg PO DAILY April 27, 2022 12:00am December 05, 2023 2:55pm 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 malignant neoplasm of unspecified site Malignant neoplasm of unspecified site of unspecified female breast administer on days 1 through 21 of a 28-day treatment cycle SITagliptin 100 mg oral tablet (20 sources) Dipeptidyl Peptidase 4 Inhibitor Start: 03-29-2017 End: 04-26-2022 take 1 tablet by mouth once daily Sitagliptin Phosphate 100 MG tablet Discontinued 100 mg PO DAILY March 29, 2017 12:00am April 26, 2022 2:58pm sulfamethoxazole 400 mg / trimethoprim 80 mg oral tablet (20 sources) Dihydrofolate Reductase Inhibitor Antibacterial, Sulfonamide Antimicrobial Start: 11-30-2021 End: 12-03-2021 Sulfamethoxazole- Trimethoprim (Bactrim) 400-80 mg tablet Discontinued 1 {tbl} PO TWICE A DAY 6 3 0 November 30, 2021 12:00am December 02, 2021 12:00am December 03, 2021 12:03am Problems Active Problems Problem Classification Problem Date Documented Date Episodic/Chronic Abdominal pain (20 sources) Finding of sensation of abdomen; Translations: [Unspecified abdominal pain] 05-31-2023 Episodic Comment on above: CT c/a/p 05/23/2023 r maribel, chest and abdomen is benign. Acute cerebrovascular disease (20 sources) Cerebrovascular accident; Translations: [Cerebral infarction, unspecified] 04-21-2019 Chronic Administrative/social admission (20 sources) Patient encounter status; Translations: [Counseling, unspecified] 05-21-2021 Episodic Asthma (20 sources) Exacerbation of asthma; Translations: [Unspecified asthma with (acute) exacerbation] 07-03-2019 Chronic Cancer of breast (20 sources) Primary malignant neoplasm of breast; Translations: [Malignant neoplasm of unspecified site of right female breast] Onset: 09-20-2024 06-12-2020 Chronic Comment on above: lateral portion H/O R breast cancer. Her2 2+ by IHC, ER positive.Progression evident on bone scan 12/14/21.Began Ibrance/Faslodex on 01/11/22. Started cycle 4 in April 2022 with dose reduction of Ibrance to 100 Mg daily 3 weeks on 1 week off, further reduced to 75 mg for persistent neutropenia.Xgeva at 4 weeks interval was stopped in January 2023. H/O R breast cancer. Her2 2+ by IHC, ER positive.Progression evident on bone scan 12/14/21.Began Ibrance/Faslodex on 01/11/22. Started cycle 4 in April 2022 with dose reduction of Ibrance to 100 Mg daily 3 weeks on 1 week off, further reduced to 75 mg for persistent neutropenia.Xgeva at 4 weeks interval was stopped in January 2023.Progressive disease s/p Radiation therapy to sacrum/iliac bones.Discussed further management. H/O R breast cancer. Her2 2+ by IHC, ER positive.Progression evident on bone scan 12/14/21.Began Ibrance/Faslodex on 01/11/22. Started cycle 4 in April 2022 with dose reduction of Ibrance to 100 Mg daily 3 weeks on 1 week off, further reduced to 75 mg for persistent neutropenia.Xgeva at 4 weeks interval was stopped in January 2023.Progressive disease s/p Radiation therapy to sacrum/iliac bones.Discussed further management, obtain Liquid biopsy for molecular markers and ESR1 H/O R breast cancer. Her2 2+ by IHC, ER positive.Progression evident on bone scan 12/14/21.Began Ibrance/Faslodex on 01/11/22. Started cycle 4 in April 2022 with dose reduction of Ibrance to 100 Mg daily 3 weeks on 1 week off, further reduced to 75 mg for persistent neutropenia.Xgeva at 4 weeks interval was stopped in January 2023.Progressive disease s/p Radiation therapy to sacrum/iliac bones.Comes for follow up.[facility] report reviewed, ESR1 negative, TMB 10. Discuss further management with High Dose Tamoxifen vs Immunotherapy-Keytruda. She wants to try High dose Tamoxifen. H/O R breast cancer. Her2 2+ by IHC, ER positive.Progression evident on bone scan 12/14/21.Began Ibrance/Faslodex on 01/11/22. Started cycle 4 in April 2022 with dose reduction of Ibrance to 100 Mg daily 3 weeks on 1 week off, further reduced to 75 mg for persistent neutropenia.Xgeva at 4 weeks interval was stopped in January 2023.Progressive disease s/p Radiation therapy to sacrum/iliac bones.Comes for follow up.[facility] report reviewed, ESR1 negative, TMB 10. On High Dose Tamoxifen.CBC and chemistry reviewed, OK for therapy. Conduction disorders (20 sources) Right bundle branch block; Translations: [Unspecified right bundle-branch block] 07-03-2019 Chronic Coronary atherosclerosis and other heart disease (20 sources) Coronary atherosclerosis; Translations: [Atherosclerotic heart disease of [place] coronary artery without angina pectoris] 06-12-2020 Chronic Comment on above: Mild non obstructive CAD per cath 07/23/11 Deficiency and other anemia (16 sources) Anemia; Translations: [Anemia, unspecified] 05-03-2023 Episodic Deficiency and other anemia (4 sources) Anemia, unspecified; Translations: [Anemia, unspecified] 02-09-2023 Episodic Diabetes mellitus with complications (1 source) Type 2 diabetes mellitus with hyperglycemia; Translations: [Type 2 diabetes mellitus with hyperglycemia] Onset: 11-23-2024 Chronic Diabetes mellitus without complication (20 sources) Type 2 diabetes mellitus; Translations: [Type 2 diabetes mellitus without complications] 07-03-2019 Chronic Diabetes mellitus without complication (12 sources) Acute hyperglycemia; Translations: [Hyperglycemia, unspecified] 11-13-2024 Episodic Diseases of white blood cells (18 sources) Neutropenia; Translations: [Neutropenia, unspecified] 10-26-2022 Chronic Comment on above: Due to Ibrance. ANC 0.9 today. Disorders of lipid metabolism (20 sources) Hyperlipidemia; Translations: [Hyperlipidemia, unspecified] 09-20-2019 Chronic Esophageal disorders (20 sources) Gastroesophageal reflux disease; Translations: [Gastro-esophageal reflux disease without esophagitis] 07-03-2019 Chronic Essential hypertension (20 sources) Essential hypertension; Translations: [Essential (primary) hypertension] 07-03-2019 Chronic Fluid and electrolyte disorders (20 sources) Hypokalemia; Translations: [Hypokalemia] 08-17-2021 Episodic Genitourinary symptoms and ill-defined conditions (19 sources) Dysuria; Translations: [Dysuria] Episodic Maintenance chemotherapy; radiotherapy (20 sources) H/O: malignant neoplasm; Translations: [Encounter for antineoplastic immunotherapy] Onset: 05-30-2025 Chronic Comment on above: EF 0n 08/10/2021 60% Malaise and fatigue (1 source) Other fatigue; Translations: [Other fatigue] Onset: 05-30-2025 Episodic Nonspecific chest pain (20 sources) Right sided chest pain; Translations: [Chest pain, unspecified] Episodic Comment on above: R/O metastatic disea se. Other aftercare (2 sources) Other long-term (current) drug therapy; Translations: [Other long-term (current) drug therapy] Onset: 09-20-2024 Episodic Other bone disease and musculoskeletal deformities (15 sources) Pain in right arm; Translations: [Other specified disorders of bone, upper arm] 06-28-2023 Episodic Comment on above: Finished Palliative RT to R humerus and R femur. Other bone disease and musculoskeletal deformities (7 sources) Other specified disorders of bone, upper arm; Translations: [Disorder of bone and cartilage, unspecified] 06-28-2023 Episodic Other diseases of kidney and ureters (20 sources) Renal mass; Translations: [Other specified disorders of kidney and ureter] 04-23-2021 Chronic Other liver diseases (20 sources) Alkaline phosphatase raised; Translations: [Abnormal levels of other serum enzymes] 07-03-2019 Episodic Other lower respiratory disease (20 sources) Nodule of lung; Translations: [Solitary pulmonary nodule] 04-23-2021 Episodic Other lower respiratory disease (19 sources) Cough; Translations: [Cough] 05-03-2023 Episodic Other nutritional; endocrine; and metabolic disorders (20 sources) Body mass index 40+ - severely obese; Translations: [Morbid (severe) obesity due to excess calories] 07-03-2019 Chronic Other nutritional; endocrine; and metabolic disorders (19 sources) Hypocalcemia; Translations: [Hypocalcemia] 02-09-2022 Chronic Other nutritional; endocrine; and metabolic disorders (2 sources) Hypocalcemia; Translations: [Hypocalcemia] Chronic Other skin disorders (20 sources) Skin nodule; Translations: [Localized swelling, mass and lump, unspecified] 07-06-2021 Episodic Comment on above: skin nodule in right mastectomy scar, biopsy at [facility] showed metastatic breast cancer. Other skin disorders (5 sources) Localized swelling, mass and lump, unspecified; Translations: [Localized superficial swelling, mass, or lump] Episodic Pulmonary heart disease (20 sources) Pulmonary embolism; Translations: [Other pulmonary embolism without acute cor pulmonale] Episodic Comment on above: D-dimer is 0.28 toda y, has taken Eliquis for 3 months. Residual codes; unclassified (20 sources) Sleep apnea; Translations: [Sleep apnea, unspecified] 07-03-2019 Chronic Residual codes; unclassified (20 sources) Hot flash due to medication; Translations: [Flushing] 07-03-2019 Episodic Residual codes; unclassified (20 sources) Bilateral acquired absence of breast; Translations: [Acquired absence of bilateral breasts and nipples] 07-03-2019 Episodic Residual codes; unclassified (19 sources) Altered mental status; Translations: [Altered mental status, unspecified] 04-22-2022 Episodic Residual codes; unclassified (1 source) Altered mental status, unspecified; Translations: [Altered mental status] Episodic Residual codes; unclassified (18 sources) Confusional state; Translations: [Disorientation, unspecified] 08-31-2022 Episodic Comment on above: Had an episode of co nfusion after C7. 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 Received radiation t o R femur metastases and R humerus from 06/11/2021 to 06/17/2021.Xgeva was discontinued after 01/11/2023.Clinically stable.Bone scan 11/13/2024 reviewed, ?new L iliac lesion.PET/CT reviewed, new hypermetabolic activity in the sacral/iliac bones. Gets pain in the lower back on and off. Received radiation t o R femur metastases and R humerus from 06/11/2021 to 06/17/2021.Xgeva was discontinued after 01/11/2023.Clinically stable.Bone scan 11/13/2024 reviewed, ?new L iliac lesion.PET/CT reviewed, new hypermetabolic activity in the sacral/iliac bones. Gets pain in the lower back on and off.Completed RT to sacrum/iliac bones on 02/12/2025. Feels good. Received radiation t o R femur metastases and R humerus from 06/11/2021 to 06/17/2021.Xgeva was discontinued after 01/11/2023.Clinically stable.Bone scan 11/13/2024 reviewed, ?new L iliac lesion.PET/CT reviewed, new hypermetabolic activity in the sacral/iliac bones. Gets pain in the lower back on and off.Completed RT to sacrum/iliac bones on 02/12/2025.Comes for follow up, has new pain in R scapular. Secondary malignancies (20 sources) Secondary malignant neoplasm of bone; Translations: [Secondary malignant neoplasm of bone and bone marrow] Onset: 05-30-2025 Chronic Secondary malignancies (20 sources) Secondary malignant neoplasm of unspecified site; Translations: [Other malignant neoplasm without specification of site] Onset: 05-02-2025 Chronic Spondylosis; intervertebral disc disorders; other back problems (20 sources) Backache; Translations: [Dorsalgia, unspecified] 04-22-2021 Episodic Thyroid disorders (20 sources) Hypothyroidism; Translations: [Hypothyroidism, unspecified] 07-03-2019 Chronic Transient cerebral ischemia (20 sources) Transient cerebral ischemia; Translations: [Transient cerebral ischemic attack, unspecified] 05-20-2021 Chronic Comment on above: 2019 Unclassified (8 sources) C79.9 - Secondary malignant neoplasm of unspecified site,C50.919 - Malignant neoplasm of unspecified site of unspecified female breast,C79.51 - Secondary malignant neoplasm of bone Unclassified (5 sources) 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 Unclassified (5 sources) Malignant neoplasm metastatic to bone Urinary tract infections (20 sources) Acute urinary tract infection; Translations: [Urinary tract infection, site not specified] Episodic Comment on above: UA positive for LE a nd nitrites Past or Other Problems Problem Classification Problem Date Documented Da te Episodic/Chronic Cancer of breast (20 sources) History of malignant neoplasm of breast; Translations: [Personal history of malignant neoplasm of breast] Onset: 01-17-2025 06-12-2020 Episodic Unclassified (20 sources) history of cellulitis left breast 12-11-2018 Unclassified (20 sources) 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 Results cannot be interpreted asabsolute evidence of the presence or absence of malignantdisease.Performed at: [place] [id number] Director: Reese Willingham PhD, Phone: [phone] Performed By: #### L 100.0100, L3100.5040, L500.4050, L3100.2300, L3100.5030 ####[facility] [address], [address] CA 27.29on 06-01-2025 CA 27.29 49.4 U/mL Abnormal 0.0-38.6 [facility] Comment on above: Result Comment: [employer] Immunochemiluminometric Methodology (ICMA)Values obtained with different assay methods or kits cannotbe used interchangeably. Results cannot be interpreted asabsolute evidence of the presence or absence of malignantdisease. Performed By: #### L 100.0100, L3100.5040, L500.4050, L3100.2300, L3100.5030 ####[facility] [address] [place], [place], [id number] Cancer Antigen 125on 025 CA 125 122.0 U/mL High 0.0-38.1 [facility] Comment on above: Result Comment: [employer] Electrochemiluminescence Immunoassay(ECLIA)Values obtained with different assay methods or kits cannotbe used interchangeably. Results cannot be interpreted asabsolute evidence of the presence or absence of malignantdisease.Performed at: [address] [id number] Director: Reese Willingham PhD, Phone: [phone] Performed By: #### L 310.5992 ####[facility] [address] [place], [place], [id number] Carcinoembryonic Antigenon 0 06-01-2025 CEA 17.9 ng/mL High 0.0-4.7 [facility] Comment on above: Result Comment: Nons mokers <3.9 Smokers <5.6[facility] Electrochemiluminescence Immunoassay(ECLIA)Values obtained with different assay methods or kitscannot be used interchangeably. Results cannot beinterpreted as absolute evidence of the presence orabsence of malignant disease. Performed By: #### L 100.0100, L3100.5040, L500.4050, L3100.2300, L3100.5030 ####[facility] [address] [place], [place], [id number] Absolute lymphocyte countOrd ered By: Sultana Finn on 05-30-2025 Lymphocytes Auto (Unsp spec) [#/Vol] 0.73 10*3/uL Low 0.83-4.51 [facility] Absolute neutrophil countOrd ered By: Sultana Finn on 05-30-2025 Neutrophils (Bld) [#/Vol] 2.3 10*3/uL 2.0-7.7 [facility] Anion gap in Serum or Plasma Ordered By: Sultana Finn on 05-30-2025 Anion gap [Moles/Vol] 14 mmol/L 5-15 [facility] Automated lymphocyte count a s percentage of total leukocytesOrdered By: Sultana Finn on 05-30-2025 Lymphocytes/100 WBC Auto (Unsp spec) 21.2 % 19-41 [facility] BUN/creatinine ratioOrdered By: Sultana Finn on 05-30-2025 Urea nitrogen/Creatinine [Mass ratio] 15.9 mg/mg 10-20 [facility] Basophil percentageOrdered B y: Sultana Finn on 05-30-2025 Basophils/100 WBC (Bld) 0.3 % 0-1 [facility] Bilirubin, totalOrdered By: Sultana Finn on 05-30-2025 Bilirubin [Mass/Vol] 0.21 mg/dL 0.00-1.30 [facility] CA 15-3Ordered By: Sultana dumont on 05-30-2025 CA 15- 31.3 U/mL High 0.0-25.0 [facility] Comment on above: [employer] El ectrochemiluminescence Immunoassay(ECLIA)Values obtained with different assay methods or kits cannotbe used interchangeably. Results cannot be interpreted asabsolute evidence of the presence or absence of malignantdisease.Performed at: [email or web address] [facility] [id number] Director: Reese Willingham PhD, Phone: [phone] CA 27.29Ordered By: Sultana butler on 05-30-2025 CA 27.29 49.4 U/mL High 0.0-38.6 [facility] Comment on above: [employer] Immu nochemiluminometric Methodology (ICMA)Values obtained with different assay methods or kits cannotbe used interchangeably. Results cannot be interpreted asabsolute evidence of the presence or absence of malignantdisease. CBC W/Diff, Automatedon 05-13 Absolute Lymph 0.73 X10 3/uL Low 0.83-4.51 [facility] Comment on above: Performed By: #### L 100.0100, L3100.5040, L500.4050, L3100.2300, L3100.5030 ####[facility] [address], [address] Absolute Neut 2.3 X10 3/uL Normal 2.0-7.7 [facility] Comment on above: Performed By: #### L 100.0100, L3100.5040, L500.4050, L3100.2300, L3100.5030 ####[facility] [address] [place], [address] Basophils/100 WBC (Bld) 0.3 % Normal 0-1 [facility] Comment on above: Performed By: #### L 100.0100, L3100.5040, L500.4050, L3100.2300, L3100.5030 ####[facility] [address] [place], [address] Eosinophils/100 WBC (Bld) 3.8 % Normal 0-5 [facility] Comment on above: Performed By: #### L 100.0100, L3100.5040, L500.4050, L3100.2300, L3100.5030 ####[facility] [address] [place], [address] Erythrocyte distribution width (RBC) [Ratio] 13.5 % Normal 11.6-14.6 [facility] Comment on above: Performed By: #### L 100.0100, L3100.5040, L500.4050, L3100.2300, L3100.5030 ####[facility] [address] [place], [address] Hematocrit (Bld) [Volume fraction] 31.6 % Low 37-47 [facility] Comment on above: Performed By: #### L 100.0100, L3100.5040, L500.4050, L3100.2300, L3100.5030 ####[facility] [address] [place], [address] Hemoglobin (Bld) [Mass/Vol] 10.6 g/dL Low 12.0-15.0 [facility] Comment on above: Performed By: #### L 100.0100, L3100.5040, L500.4050, L3100.2300, L3100.5030 ####[facility] [address] [place], [address] IG% 0.600 Normal 0.0-0.9 [facility] Comment on above: Result Comment: IG% - Immature Granulocytes (promyelocytes, myelocytes andmetamyelocytes) > 1% indicates that a LEFT SHIFT is Present. Performed By: #### L 100.0100, L3100.5040, L500.4050, L3100.2300, L3100.5030 ####[facility] [address] [place], [address] Lymphocytes/100 WBC (Bld) 21.2 % Normal 19-41 [facility] Comment on above: Performed By: #### L 100.0100, L3100.5040, L500.4050, L3100.2300, L3100.5030 ####[facility] [address] [place], [address] MCH (RBC) [Entitic mass] 32.6 pg High 27.0-32.0 [facility] Comment on above: Performed By: #### L 100.0100, L3100.5040, L500.4050, L3100.2300, L3100.5030 ####[facility] [address] [place], [address] MCHC (RBC) [Mass/Vol] 33.5 g/dL Normal 32-36 [facility] Comment on above: Performed By: #### L 100.0100, L3100.5040, L500.4050, L3100.2300, L3100.5030 ####[facility] [address] [place], [address] MCV (RBC) [Entitic vol] 97.2 fL Normal 81-99 [facility] Comment on above: Performed By: #### L 100.0100, L3100.5040, L500.4050, L3100.2300, L3100.5030 ####[facility] [address] [place], [address] Monocytes/100 WBC (Bld) 8.7 % Normal 0-10 [facility] Comment on above: Performed By: #### L 100.0100, L3100.5040, L500.4050, L3100.2300, L3100.5030 ####[facility] [address] [place], [address] Neutrophils/100 WBC (Bld) 65.4 % Normal 47-70 [facility] Comment on above: Performed By: #### L 100.0100, L3100.5040, L500.4050, L3100.2300, L3100.5030 ####[facility] [address] [place], [address] Nucleated RBC (Bld) [#/Vol] 0 10*3/uL Normal 0-5 [facility] Comment on above: Performed By: #### L 100.0100, L3100.5040, L500.4050, L3100.2300, L3100.5030 ####[facility] [address] [place], [address] Platelet mean volume (Bld) [Entitic vol] 9.4 fL Normal 6.2-12.0 [facility] Comment on above: Performed By: #### L 100.0100, L3100.5040, L500.4050, L3100.2300, L3100.5030 ####[facility] [address] [place], [address] Platelets (Bld) [#/Vol] 170 10*3/uL Normal 150-450 [facility] Comment on above: Performed By: #### L 100.0100, L3100.5040, L500.4050, L3100.2300, L3100.5030 ####[facility] [address] [place], [address] RBC (Bld) [#/Vol] 3.25 10*6/uL Low 4.2-5.4 [facility] Comment on above: Performed By: #### L 100.0100, L3100.5040, L500.4050, L3100.2300, L3100.5030 ####[facility] [address] [place], [address] RDW SD 48.5 fl High 35.1-43.9 [facility] Comment on above: Performed By: #### L 100.0100, L3100.5040, L500.4050, L3100.2300, L3100.5030 ####[facility] [address] [place], [address] WBC (Bld) [#/Vol] 3.5 10*3/uL Low 4.4-11.[address] [facility] Comment on above: Performed By: #### L 100.0100, L3100.5040, L500.4050, L3100.2300, L3100.5030 ####[facility] [address] [place], [address] Cancer antigen 125 (CA-125) measurementOrdered By: Myron Calvillo on 05-30-2025 Cancer antigen 125 (CA-125) measurement 122.0 U/mL High 0.0-38.1 [facility] Comment on above: [employer] El ectrochemiluminescence Immunoassay(ECLIA)Values obtained with different assay methods or kits cannotbe used interchangeably. Results cannot be interpreted asabsolute evidence of the presence or absence of malignantdisease.Performed at: [facility] [address] [id number] Director: Reese Willingham PhD, Phone: [phone] Carbon dioxide, total [Moles /volume] in Central venous bloodOrdered By: Sultana Finn on 05-30-2025 CO2 [Moles/Vol] 22.6 mmol/L 21.0-32.0 [facility] Chloride assayOrdered By: Saurabh Finn on 05-30-2025 Chloride [Moles/Vol] 103 mmol/L 98-108 [facility] Comprehensive Metabolic Prof ilon 05-30-2025 Albumin [Mass/Vol] 3.5 g/dL Normal 3.4-4.[address] [facility] Comment on above: Performed By: #### L 100.0100, L3100.5040, L500.4050, L3100.2300, L3100.5030 ####[facility] [address] [place], [address] Albumin/Globulin [Mass ratio] 1.2 {ratio} Normal 0.9-2.4 [facility] Comment on above: Performed By: #### L 100.0100, L3100.5040, L500.4050, L3100.2300, L3100.5030 ####[facility] [address] [place], [address] [facility]OS 193 U/L High 35-104 [facility] Comment on above: Performed By: #### L 100.0100, L3100.5040, L500.4050, L3100.2300, L3100.5030 ####[facility] [address] [place], [address] ALT [Catalytic activity/Vol] 37 U/L High <=34 [facility] Comment on above: Performed By: #### L 100.0100, L3100.5040, L500.4050, L3100.2300, L3100.5030 ####[facility] [address] [place], [address] AST [Catalytic activity/Vol] 51 U/L High <=31 [facility] Comment on above: Performed By: #### L 100.0100, L3100.5040, L500.4050, L3100.2300, L3100.5030 ####[facility] [address] [place], [address] Bilirubin [Mass/Vol] 0.21 mg/dL Normal 0.00-1.30 [facility] Comment on above: Performed By: #### L 100.0100, L3100.5040, L500.4050, L3100.2300, L3100.5030 ####[facility] [address] [place], [address] BUN/CRE 15.9 RATIO Normal 10-20 [facility] Comment on above: Performed By: #### L 100.0100, L3100.5040, L500.4050, L3100.2300, L3100.5030 ####[facility] [address] [place], [address] Calcium [Mass/Vol] 8.8 mg/dL Normal 7.6-11.[address] [facility] Comment on above: Performed By: #### L 100.0100, L3100.5040, L500.4050, L3100.2300, L3100.5030 ####[facility] [address] [place], [address] Chloride [Moles/Vol] 103 mmol/L Normal 98-108 [facility] Comment on above: Performed By: #### L 100.0100, L3100.5040, L500.4050, L3100.2300, L3100.5030 ####[facility] [address] [place], [address] CO2 [Moles/Vol] 22.6 mmol/L Normal 21.0-32.0 [facility] Comment on above: Performed By: #### L 100.0100, L3100.5040, L500.4050, L3100.2300, L3100.5030 ####[facility] [address] [place], [address] Creatinine [Mass/Vol] 1.38 mg/dL High 0.70-1.20 [facility] Comment on above: Performed By: #### L 100.0100, L3100.5040, L500.4050, L3100.2300, L3100.5030 ####[facility] [address] [place], [address] ECRCL 44.49 ml/min Low 50-250 [facility] Comment on above: Performed By: #### L 100.0100, L3100.5040, L500.4050, L3100.2300, L3100.5030 ####[facility] [address] [place], [address] GAP 14 Normal 5-15 [facility] Comment on above: Performed By: #### L 100.0100, L3100.5040, L500.4050, L3100.2300, L3100.5030 ####[facility] [address] [place], [address] GFR/1.73 sq M.predicted among non-blacks MDRD (S/P/Bld) [Vol rate/Area] 41 mL/min/{1.73_m2} Low >60 [facility] Comment on above: Result Comment: mL/m in/1.73m2 CKD-EPI Creatinine Equation (2020) Performed By: #### L 100.0100, L3100.5040, L500.4050, L3100.2300, L3100.5030 ####[facility] [address] [place], [address] Globulin (S) [Mass/Vol] 3.0 g/dL Normal 2.2-4.2 [facility] Comment on above: Performed By: #### L 100.0100, L3100.5040, L500.4050, L3100.2300, L3100.5030 ####[facility] [address] [place], [address] Glucose [Mass/Vol] 222 mg/dL High 70-[address] [facility] Comment on above: Performed By: #### L 100.0100, L3100.5040, L500.4050, L3100.2300, L3100.5030 ####[facility] [address] [place], [address] Potassium [Moles/Vol] 4.6 mmol/L Normal 3.3-5.1 [facility] Comment on above: Performed By: #### L 100.0100, L3100.5040, L500.4050, L3100.2300, L3100.5030 ####[facility] [address] [place], [address] Sodium [Moles/Vol] 139 mmol/L Normal 133-[address] [facility] Comment on above: Performed By: #### L 100.0100, L3100.5040, L500.4050, L3100.2300, L3100.5030 ####[facility] [address] [place], [address] T PROT 6.4 g/dL Normal 5.9-8.4 [facility] Comment on above: Performed By: #### L 100.0100, L3100.5040, L500.4050, L3100.2300, L3100.5030 ####[facility] [address] [place], [address] Urea nitrogen [Mass/Vol] 22 mg/dL High 4-19 [facility] Comment on above: Performed By: #### L 100.0100, L3100.5040, L500.4050, L3100.2300, L3100.5030 ####[facility] [address] [place], [address] Eosinophil percentageOrdered By: Sultana Finn on 05-30-2025 Eosinophils/100 WBC (Bld) 3.8 % 0-5 [facility] [facility] Erythrocyte distribution wid th ratioOrdered By: Sultana Finn on 05-30-2025 Erythrocyte distribution width (RBC) [Ratio] 13.5 % 11.6-14.6 [facility] Erythrocyte distribution wid th standard deviationOrdered By: Sultana Finn on 05-30-2025 Erythrocyte distribution width (RBC) [Ratio] 48.5 fl High 35.1-43.9 [facility] Glomerular filtration rate ( GFR) estimation/1.73 sq m using serum, plasma, or whole bOrdered By: Sultana Finn on 05-30-2025 GFR/1.73 sq M.predicted among non-blacks MDRD (S/P/Bld) [Vol rate/Area] 41 mL/min/{1.73_m2} Low >60 [facility] Comment on above: mL/min/1.73m2 CKD-EP I Creatinine Equation (2020) Hematocrit Auto (Bld) [Volum e fraction]Or[facility]: [facility]odyAakash on 05-30-2025 Hematocrit (Bld) [Volume fraction] 31.6 % Low 37-47 [facility] Hemoglobin measurementOrdere d By: Sultana Aakash 05-30-2025 Hemoglobin (Bld) [Mass/Vol] 10.6 g/dL Low 12.0-15.0 [facility] Immature granulocytes/100 WB C Auto (Bld)Ordered By: Sultana Finn on 05-30-2025 Immature granulocytes/100 WBC (Bld) 0.600 % 0.0-0.9 [facility] Comment on above: IG% - Immature Granu locytes (promyelocytes, myelocytes and metamyelocytes) > 1% indicates that a LEFT SHIFT is Present. Laboratory - Chemistry and C hemistry - challengeOrdered By: Sultana Finn on 05-30-2025 AST [Catalytic activity/Vol] 51 U/L High <32 [facility] MCV (mean corpuscular volume ) determinationOrdered By: Sultana Finn on 05-30-2025 MCV (RBC) [Entitic vol] 97.2 fL 81-99 [facility] Mean corpuscular hemoglobin (MCH) determinationOrdered By: Sultana Aakash 05-30-2025 MCH (RBC) [Entitic mass] 32.6 pg High 27.0-32.0 [facility] Mean corpuscular hemoglobin concentration (MCHC) determinationOrdered By: Sultana Finn on 05-30-2025 MCHC (RBC) [Mass/Vol] 33.5 g/dL 32-36 [facility] Mean platelet volume determi nationOrdered By: Sultana Finn on 05-30-2025 Platelet mean volume (Bld) [Entitic vol] 9.4 fL 6.2-12.0 [facility] Monocyte percentageOrdered B y: Sultana Finn on 05-30-2025 Monocytes/100 WBC (Bld) 8.7 % 0-10 [facility] Neutrophil percentageOrdered By: Sultana Finn on 05-30-2025 Neutrophils/100 WBC (Bld) 65.4 % 47-70 [facility] Nucleated red blood cell per centageOrdered By: Sultana Finn on 05-30-2025 Nucleated RBC/100 WBC (Bld) [Ratio] 0 % 0-5 [facility] Oncology Visit Reporton 05-13 Oncology Visit Report Normal [facility] Platelet countOrdered By: Saurabh Finn on 05-30-2025 Platelets (Bld) [#/Vol] 170 10*3/uL 150-450 [facility] Potassium measurement (mass/ volume)Ordered By: Sultana Finn on 05-30-2025 Potassium (Unsp spec) [Mass/Vol] 4.6 mmol/L 3.3-5.1 [facility] RBC Auto (Bld) [#/Vol]Ordere d By: Sultana Finn on 05-30-2025 RBC (Bld) [#/Vol] 3.25 10*6/uL Low 4.2-5.4 [facility] Serum creatinine measurement (mass/volume)Ordered By: Sultana Finn on 05-30-2025 Creatinine [Mass/Vol] 1.38 mg/dL High 0.70-1.20 [facility] Serum globulin measurementOr dered By: Sultana Finn on 05-30-2025 Globulin (S) [Mass/Vol] 3.0 g/dL 2.2-4.2 [facility] Serum glucose measurement (m ass/volume)Ordered By: Sultana Finn on 05-30-2025 Glucose [Mass/Vol] 222 mg/dL High 70-[address] [facility] Serum or plasma alanine skinner otransferase (ALT) measurementOrdered By: Sultana Finn on 05-30-2025 ALT [Catalytic activity/Vol] 37 U/L High <35 [facility] Serum or plasma albumin amanda urement (mass/volume)Ordered By: Sultana Finn on 05-30-2025 Albumin [Mass/Vol] 3.5 g/dL 3.4-4.[address] [facility] Serum or plasma albumin/glob ulin mass ratioOrdered By: Sultana Aakash 05-30-2025 Albumin/Globulin [Mass ratio] 1.2 {ratio} 0.9-2.4 [facility] Serum or plasma alkaline domenico sphatase measurementOrdered By: Sultana Finn 05-30-2025 ALP [Catalytic activity/Vol] 193 U/L High 35-104 [facility] Serum or plasma calcium amanda urement (mass/volume)Ordered By: Sultana Finn 05-30-2025 Calcium [Mass/Vol] 8.8 mg/dL 7.6-11.[address] [facility] Serum or plasma carcinoembry onic antigen measurement (mass/volume)Ordered By: Sultana Finn 05-30-2025 Carcinoembryonic Ag [Mass/Vol] 17.9 ng/mL High 0.0-4.7 [facility] Comment on above: Nonsmokers <3.9 Smok ers <5.6[employer] Electrochemiluminescence Immunoassay(ECLIA)Values obtained with different assay methods or kitscannot be used interchangeably. Results cannot beinterpreted as absolute evidence of the presence orabsence of malignant disease. Serum or plasma urea nitroge n measurement (mass/volume)Ordered By: Sultana Finn 05-30-2025 Urea nitrogen [Mass/Vol] 22 mg/dL High 4-19 [facility] Sodium levelOrdered By: Sultana Finn 05-30-2025 Sodium [Moles/Vol] 139 mmol/L 133-[address] [facility] Total proteinOrdered By: Chaka Finn 05-30-2025 Protein [Mass/Vol] 6.4 g/dL 5.9-8.[address] [facility] White blood cell (WBC) count Ordered By: Sultana EspañaAakash on 05-30-2025 WBC (Bld) [#/Vol] 3.5 10*3/uL Low 4.4-11.[address] [facility] CA 15-3on 05-03-2025 CA 15-3 29.9 U/mL Abnormal 0.0-25.0 [facility] Comment on above: Result Comment: [employer] Electrochemiluminescence Immunoassay(ECLIA)Values obtained with different assay methods or kits cannotbe used interchangeably. Results cannot be interpreted asabsolute evidence of the presence or absence of malignantdisease.Performed at: [facility] [place] [id number] Director: Reese Willingham PhD, Phone: [phone] Performed By: #### L 3100.2300, L3100.5000, L3100.5030, L3100.5040, L100.0100 ####[facility] [address] [place], [place], [id number] CA 27.29on 05-03-2025 CA 27.29 43.8 U/mL Abnormal 0.0-38.6 [facility] Comment on above: Result Comment: [employer] Immunochemiluminometric Methodology (ICMA)Values obtained with different assay methods or kits cannotbe used interchangeably. Results cannot be interpreted asabsolute evidence of the presence or absence of malignantdisease. Performed By: #### L 3100.2300, L3100.5000, L3100.5030, L3100.5040, L100.0100 ####[facility] [address] [place], [place], [id number] Cancer Antigen 125on 025 CA 125 119.0 U/mL High 0.0-38.1 [facility] Comment on above: Result Comment: [employer] Electrochemiluminescence Immunoassay(ECLIA)Values obtained with different assay methods or kits cannotbe used interchangeably. Results cannot be interpreted asabsolute evidence of the presence or absence of malignantdisease. Performed By: #### L 3100.2300, L3100.5000, L3100.5030, L3100.5040, L100.0100 ####[facility] [address] [place], [place], [id number] Carcinoembryonic Antigenon 0 - CEA 21.1 ng/mL High 0.0-4.7 [facility] Comment on above: Result Comment: Nons mokers <3.9 Smokers <5.6[employer] Electrochemiluminescence Immunoassay(ECLIA)Values obtained with different assay methods or kitscannot be used interchangeably. Results cannot beinterpreted as absolute evidence of the presence orabsence of malignant disease. Performed By: #### L 3100.2300, L3100.5000, L3100.5030, L3100.5040, L100.0100 ####[facility] [address] [place], [place], [id number] Absolute lymphocyte countOrd ered By: Myron Kilgoreamerica on 05-02-2025 Lymphocytes Auto (Unsp spec) [#/Vol] 0.95 10*3/uL 0.83-4.51 [facility] Absolute neutrophil countOrd ered By: Myron Kilgore on 05-02-2025 Neutrophils (Bld) [#/Vol] 3.8 10*3/uL 2.0-7.7 [facility] Automated lymphocyte count a s percentage of total leukocytesOrdered By: Myron Karli on 05-02-2025 Lymphocytes/100 WBC Auto (Unsp spec) 17.0 % Low 19-41 [facility] Basophil percentageOrdered B y: Myron Kilgoreamerica on 05-02-2025 Basophils/100 WBC (Bld) 0.7 % 0-1 [facility] CBC W/Diff, Automatedon 04-13 Absolute Lymph 0.95 X10 3/uL Normal 0.83-4.51 [facility] Comment on above: Performed By: #### L 3100.2300, L3100.5000, L3100.5030, L3100.5040, L100.0100 ####[facility] [address] [place], [address] Absolute Neut 3.8 X10 3/uL Normal 2.0-7.7 [facility] Comment on above: Performed By: #### L 3100.2300, L3100.5000, L3100.5030, L3100.5040, L100.0100 ####[facility] [address] [place], [address] Basophils/100 WBC (Bld) 0.7 % Normal 0-1 [facility] Comment on above: Performed By: #### L 3100.2300, L3100.5000, L3100.5030, L3100.5040, L100.0100 ####[facility] [address] [place], [address] Eosinophils/100 WBC (Bld) 4.3 % Normal 0-5 [facility] Comment on above: Performed By: #### L 3100.2300, L3100.5000, L3100.5030, L3100.5040, L100.0100 ####[facility] [address] [place], [address] Erythrocyte distribution width (RBC) [Ratio] 13.2 % Normal 11.6-14.6 [facility] Comment on above: Performed By: #### L 3100.2300, L3100.5000, L3100.5030, L3100.5040, L100.0100 ####[facility] [address] [place], [address] Hematocrit (Bld) [Volume fraction] 31.1 % Low 37-47 [facility] Comment on above: Performed By: #### L 3100.2300, L3100.5000, L3100.5030, L3100.5040, L100.0100 ####[facility] [address] [place], [address] Hemoglobin (Bld) [Mass/Vol] 10.8 g/dL Low 12.0-15.0 [facility] Comment on above: Performed By: #### L 3100.2300, L3100.5000, L3100.5030, L3100.5040, L100.0100 ####[facility] [address] [place], [address] IG% 0.500 Normal 0.0-0.9 [facility] Comment on above: Result Comment: IG% - Immature Granulocytes (promyelocytes, myelocytes andmetamyelocytes) > 1% indicates that a LEFT SHIFT is Present. Performed By: #### L 3100.2300, L3100.5000, L3100.5030, L3100.5040, L100.0100 ####[facility] [address] [place], [address] Lymphocytes/100 WBC (Bld) 17.0 % Low 19-41 [facility] Comment on above: Performed By: #### L 3100.2300, L3100.5000, L3100.5030, L3100.5040, L100.0100 ####[facility] [address] [place], [address] MCH (RBC) [Entitic mass] 34.2 pg High 27.0-32.0 [facility] Comment on above: Performed By: #### L 3100.2300, L3100.5000, L3100.5030, L3100.5040, L100.0100 ####[facility] [address] [place], [address] MCHC (RBC) [Mass/Vol] 34.7 g/dL Normal 32-36 [facility] Comment on above: Performed By: #### L 3100.2300, L3100.5000, L3100.5030, L3100.5040, L100.0100 ####[facility] [address] [place], [address] MCV (RBC) [Entitic vol] 98.4 fL Normal 81-99 [facility] Comment on above: Performed By: #### L 3100.2300, L3100.5000, L3100.5030, L3100.5040, L100.0100 ####[facility] [address] [place], [address] Monocytes/100 WBC (Bld) 9.1 % Normal 0-10 [facility] Comment on above: Performed By: #### L 3100.2300, L3100.5000, L3100.5030, L3100.5040, L100.0100 ####[facility] [address] [place], [address] Neutrophils/100 WBC (Bld) 68.4 % Normal 47-70 [facility] Comment on above: Performed By: #### L 3100.2300, L3100.5000, L3100.5030, L3100.5040, L100.0100 ####[facility] [address] [place], [address] Nucleated RBC (Bld) [#/Vol] 0 10*3/uL Normal 0-5 [facility] Comment on above: Performed By: #### L 3100.2300, L3100.5000, L3100.5030, L3100.5040, L100.0100 ####[facility] [address] [place], [address] Platelet mean volume (Bld) [Entitic vol] 9.6 fL Normal 6.2-12.0 [facility] Comment on above: Performed By: #### L 3100.2300, L3100.5000, L3100.5030, L3100.5040, L100.0100 ####[facility] [address] [place], [address] Platelets (Bld) [#/Vol] 179 10*3/uL Normal 150-450 [facility] Comment on above: Performed By: #### L 3100.2300, L3100.5000, L3100.5030, L3100.5040, L100.0100 ####[facility] [address] [place], [address] RBC (Bld) [#/Vol] 3.16 10*6/uL Low 4.2-5.4 [facility] Comment on above: Performed By: #### L 3100.2300, L3100.5000, L3100.5030, L3100.5040, L100.0100 ####[facility] [address] [place], [address] RDW SD 47.2 fl High 35.1-43.9 [facility] Comment on above: Performed By: #### L 3100.2300, L3100.5000, L3100.5030, L3100.5040, L100.0100 ####[facility] [address] [place], [address] WBC (Bld) [#/Vol] 5.6 10*3/uL Normal 4.4-11.[address] [facility] Comment on above: Performed By: #### L 3100.2300, L3100.5000, L3100.5030, L3100.5040, L100.0100 ####[facility] [address] [place], [address] Comprehensive Metabolic Prof [facility] 05-02-2025 Albumin [Mass/Vol] 3.7 g/dL Normal 3.4-4.[address] [facility] Comment on above: Performed By: #### L 500.4050 ####[facility] [address] [place], [address] Albumin/Globulin [Mass ratio] 1.2 {ratio} Normal 0.9-2.4 [facility] Comment on above: Performed By: #### L 500.4050 ####[facility] [address] [place], [address] ALK PHOS 182 U/L High 35-104 [facility] Comment on above: Performed By: #### L 500.4050 ####[facility] [address] [place], [address] ALT [Catalytic activity/Vol] 26 U/L Normal <=34 [facility] Comment on above: Performed By: #### L 500.4050 ####[facility] [address] [place], [address] AST [Catalytic activity/Vol] 40 U/L High <=31 [facility] Comment on above: Performed By: #### L 500.4050 ####[facility] [address] [place], [address] Bilirubin [Mass/Vol] 0.25 mg/dL Normal 0.00-1.30 [facility] Comment on above: Performed By: #### L 500.4050 ####[facility] [address] [place], [address] BUN/CRE 20.6 RATIO High 10-20 [facility] Comment on above: Performed By: #### L 500.4050 ####[facility] [address] [place], [address] Calcium [Mass/Vol] 9.0 mg/dL Normal 7.6-11.[address] [facility] Comment on above: Performed By: #### L 500.4050 ####[facility] [address] [place], [address] Chloride [Moles/Vol] 102 mmol/L Normal 98-108 [facility] Comment on above: Performed By: #### L 500.4050 ####[facility] [address] [place], [address] CO2 [Moles/Vol] 26.2 mmol/L Normal 21.0-32.0 [facility] Comment on above: Performed By: #### L 500.4050 ####[facility] [address] [place], [address] Creatinine [Mass/Vol] 1.21 mg/dL High 0.70-1.20 [facility] Comment on above: Performed By: #### L 500.4050 ####[facility] [address] [place], [address] ECRCL 50.74 ml/min Normal 50-250 [facility] Comment on above: Performed By: #### L 500.4050 ####[facility] [address] [place], [address] GAP 12 Normal 5-15 [facility] Comment on above: Performed By: #### L 500.4050 ####[facility] [address] [place], [address] GFR/1.73 sq M.predicted among non-blacks MDRD (S/P/Bld) [Vol rate/Area] 48 mL/min/{1.73_m2} Low >60 [facility] Comment on above: Result Comment: mL/m in/1.73m2 CKD-EPI Creatinine Equation (2020) Performed By: #### L 500.4050 ####[facility] [address] [place], [address] Globulin (S) [Mass/Vol] 3.0 g/dL Normal 2.2-4.2 [facility] Comment on above: Performed By: #### L 500.4050 ####[facility] [address] [place], [address] Glucose [Mass/Vol] 133 mg/dL High 70-[address] [facility] Comment on above: Performed By: #### L 500.4050 ####[facility] [address] [place], [address] Potassium [Moles/Vol] 4.3 mmol/L Normal 3.3-5.1 [facility] Comment on above: Performed By: #### L 500.4050 ####[facility] [address] [place], [place], [address] Sodium [Moles/Vol] 140 mmol/L Normal 133-[address] [facility] Comment on above: Performed By: #### L 500.4050 ####[facility] [address] [place], [place], [id number] T PROT 6.7 g/dL Normal 5.9-8.4 [facility] Comment on above: Performed By: #### L 500.4050 ####[facility] [address] [place], [place], [id number] Urea nitrogen [Mass/Vol] 25 mg/dL High 4-19 [facility] Comment on above: Performed By: #### L 500.4050 ####[facility] [address] [place], [place], [id number] Eosinophil percentageOrdered By: Myron Calvillo on 05-02-2025 Eosinophils/100 WBC (Bld) 4.3 % 0-5 [facility] Erythrocyte distribution wid th ratioOrdered By: Myron Calvillo on 05-02-2025 Erythrocyte distribution width (RBC) [Ratio] 13.2 % 11.6-14.6 [facility] Erythrocyte distribution wid th standard deviationOrdered By: Myron Calvillo on 05-02-2025 Erythrocyte distribution width (RBC) [Ratio] 47.2 fl High 35.1-43.9 [facility] Hematocrit Auto (Bld) [Volum e fraction]Ordered By: Myron Calvillo on 05-02-2025 Hematocrit (Bld) [Volume fraction] 31.1 % Low 37-47 [facility] Hemoglobin measurementOrdere d By: Myron Calvillo on 05-02-2025 Hemoglobin (Bld) [Mass/Vol] 10.8 g/dL Low 12.0-15.0 [facility] Immature granulocytes/100 WB C Auto (Bld)Ordered By: Myron Calvillo on 05-02-2025 Immature granulocytes/100 WBC (Bld) 0.500 % 0.0-0.9 [facility] Comment on above: IG% - Immature Granu locytes (promyelocytes, myelocytes and metamyelocytes) > 1% indicates that a LEFT SHIFT is Present. MCV (mean corpuscular volume ) determinationOrdered By: Myron Calvillo on 05-02-2025 MCV (RBC) [Entitic vol] 98.4 fL 81-99 [facility] Mean corpuscular hemoglobin (MCH) determinationOrdered By: Myron Calvillo on 05-02-2025 MCH (RBC) [Entitic mass] 34.2 pg High 27.0-32.0 [facility] Mean corpuscular hemoglobin concentration (MCHC) determinationOrdered By: Myron Calvillo on 05-02-2025 MCHC (RBC) [Mass/Vol] 34.7 g/dL 32-36 [facility] Mean platelet volume determi nationOrdered By: Myron Calvillo on 05-02-2025 Platelet mean volume (Bld) [Entitic vol] 9.6 fL 6.2-12.0 [facility] Monocyte percentageOrdered B y: Myron Calvillo on 05-02-2025 Monocytes/100 WBC (Bld) 9.1 % 0-10 [facility] Neutrophil percentageOrdered By: Myron Calvillo on 05-02-2025 Neutrophils/100 WBC (Bld) 68.4 % 47-70 [facility] Nucleated red blood cell per centageOrdered By: Myron Calvillo on 05-02-2025 Nucleated RBC/100 WBC (Bld) [Ratio] 0 % 0-5 [facility] Oncology Visit Reporton 04-13 Oncology Visit Report [facility] Platelet countOrdered By: Destinee Calvillo on 05-02-2025 Platelets (Bld) [#/Vol] 179 10*3/uL 150-450 [facility] RBC Auto (Bld) [#/Vol]Ordere d By: Myron Calvillo on 05-02-2025 RBC (Bld) [#/Vol] 3.16 10*6/uL Low 4.2-5.4 [facility] White blood cell (WBC) count Ordered By: Myron Calvillo on 05-02-2025 WBC (Bld) [#/Vol] 5.6 10*3/uL 4.4-11.[address] [facility] Oncology Visit Reporton 03-13 Oncology Visit Report [facility] Oncology Visit Reporton 03-12 Oncology Visit Report [facility] CA 15-3on 03-15-2025 CA 15-3 26.7 U/mL Abnormal 0.0-25.0 [facility] Comment on above: Result Comment: [employer] Electrochemiluminescence Immunoassay(ECLIA)Values obtained with different assay methods or kits cannotbe used interchangeably. Results cannot be interpreted asabsolute evidence of the presence or absence of malignantdisease.Performed at: [facility] [id number] Director: Reese Willingham PhD, Phone: [phone] Performed By: #### L 3100.5040, L500.4050, L3100.5030, L100.0100 ####[facility] [address] [facility] [place], [place], [address] CA 27.29on 03-15-2025 CA 27.29 33.5 U/mL Normal 0.0-38.6 [facility] Comment on above: Result Comment: [employer] Immunochemiluminometric Methodology (ICMA)Values obtained with different assay methods or kits cannotbe used interchangeably. Results cannot be interpreted asabsolute evidence of the presence or absence of malignantdisease. Performed By: #### L 3100.5040, L500.4050, L3100.5030, L100.0100 ####[facility] [address] [place], [place], [id number] Absolute lymphocyte countOrd ered By: Sultana Finn on 03-14-2025 Lymphocytes Auto (Unsp spec) [#/Vol] 1.04 10*3/uL 0.83-4.51 [facility] Absolute neutrophil countOrd ered By: Sultana Finn on 03-14-2025 Neutrophils (Bld) [#/Vol] 3.3 10*3/uL 2.0-7.7 [facility] Anion gap in Serum or Plasma Ordered By: Sultana Finn on 03-14-2025 Anion gap [Moles/Vol] 13 mmol/L 5- [facility] Automated lymphocyte count a s percentage of total leukocytesOrdered By: Sultana Finn on 03-14-2025 Lymphocytes/100 WBC Auto (Unsp spec) 20.0 % 19- [facility] BUN/creatinine ratioOrdered By: Sultana Finn on 03-14-2025 Urea nitrogen/Creatinine [Mass ratio] 18.2 mg/mg 10-20 [facility] Basophil percentageOrdered B y: Sultana Finn on 03-14-2025 Basophils/100 WBC (Bld) 0.8 % 0-1 [facility] Bilirubin, totalOrdered By: Sultana Finn on 03-14-2025 Bilirubin [Mass/Vol] 0.39 mg/dL 0.00-1.30 [facility] CA 15-3Ordered By: Sultana dumont on 03-14-2025 CA 15-3 26.7 U/mL High 0.0-25.0 [facility] Comment on above: [employer] El ectrochemiluminescence Immunoassay(ECLIA)Values obtained with different assay methods or kits cannotbe used interchangeably. Results cannot be interpreted asabsolute evidence of the presence or absence of malignantdisease.Performed at: [address] [id number] Director: Reese Willingham PhD, Phone: [phone] CA 27.29Ordered By: Sultana butler on 03-14-2025 CA 27.29 33.5 U/mL 0.0-38.6 [facility] Comment on above: [employer] Immu nochemiluminometric Methodology (ICMA)Values obtained with different assay methods or kits cannotbe used interchangeably. Results cannot be interpreted asabsolute evidence of the presence or absence of malignantdisease. CBC W/Diff, Automatedon Absolute Lymph 1.04 X10 3/uL Normal 0.83-4.51 [facility] Comment on above: Performed By: #### L 3100.5040, L500.4050, L3100.5030, L100.0100 ####[facility] [address] [place], [address] Absolute Neut 3.3 X10 3/uL Normal 2.0-7.7 [facility] Comment on above: Performed By: #### L 3100.5040, L500.4050, L3100.5030, L100.0100 ####[facility] [address] [place], [address] Basophils/100 WBC (Bld) 0.8 % Normal 0-1 [facility] Comment on above: Performed By: #### L 3100.5040, L500.4050, L3100.5030, L100.0100 ####[facility] [address] [place], [address] Eosinophils/100 WBC (Bld) 4.8 % Normal 0-5 [facility] Comment on above: Performed By: #### L 3100.5040, L500.4050, L3100.5030, L100.0100 ####[facility] [address] [place], [address] Erythrocyte distribution width (RBC) [Ratio] 13.5 % Normal 11.6-14.6 [facility] Comment on above: Performed By: #### L 3100.5040, L500.4050, L3100.5030, L100.0100 ####[facility] [address] [place], [address] Hematocrit (Bld) [Volume fraction] 33.0 % Low 37-47 [facility] Comment on above: Performed By: #### L 3100.5040, L500.4050, L3100.5030, L100.0100 ####[facility] [address] [place], [address] Hemoglobin (Bld) [Mass/Vol] 11.7 g/dL Low 12.0-15.0 [facility] Comment on above: Performed By: #### L 3100.5040, L500.4050, L3100.5030, L100.0100 ####[facility] [address] [place], [address] IG% 1.000 High 0.0-0.9 [facility] Comment on above: Result Comment: IG% - Immature Granulocytes (promyelocytes, myelocytes andmetamyelocytes) > 1% indicates that a LEFT SHIFT is Present. Performed By: #### L 3100.5040, L500.4050, L3100.5030, L100.0100 ####[facility] [address] [place], [address] Lymphocytes/100 WBC (Bld) 20.0 % Normal 19-41 [facility] Comment on above: Performed By: #### L 3100.5040, L500.4050, L3100.5030, L100.0100 ####[facility] [address] [place], [address] MCH (RBC) [Entitic mass] 34.8 pg High 27.0-32.0 [facility] Comment on above: Performed By: #### L 3100.5040, L500.4050, L3100.5030, L100.0100 ####[facility] [address] [place], [address] MCHC (RBC) [Mass/Vol] 35.5 g/dL Normal 32-36 [facility] Comment on above: Performed By: #### L 3100.5040, L500.4050, L3100.5030, L100.0100 ####[facility] [address] [place], [address] MCV (RBC) [Entitic vol] 98.2 fL Normal 81-99 [facility] Comment on above: Performed By: #### L 3100.5040, L500.4050, L3100.5030, L100.0100 ####[facility] [address] [place], [address] Monocytes/100 WBC (Bld) 9.4 % Normal 0-10 [facility] Comment on above: Performed By: #### L 3100.5040, L500.4050, L3100.5030, L100.0100 ####[facility] [address] [place], [address] Neutrophils/100 WBC (Bld) 64.0 % Normal 47-70 [facility] Comment on above: Performed By: #### L 3100.5040, L500.4050, L3100.5030, L100.0100 ####[facility] [address] [place], [address] Nucleated RBC (Bld) [#/Vol] 0 10*3/uL Normal 0-5 [facility] Comment on above: Performed By: #### L 3100.5040, L500.4050, L3100.5030, L100.0100 ####[facility] [address] [place], [address] Platelet mean volume (Bld) [Entitic vol] 9.5 fL Normal 6.2-12.0 [facility] Comment on above: Performed By: #### L 3100.5040, L500.4050, L3100.5030, L100.0100 ####[facility] [address] [place], [address] Platelets (Bld) [#/Vol] 193 10*3/uL Normal 150-450 [facility] Comment on above: Performed By: #### L 3100.5040, L500.4050, L3100.5030, L100.0100 ####[facility] [address] [place], [address] RBC (Bld) [#/Vol] 3.36 10*6/uL Low 4.2-5.4 [facility] Comment on above: Performed By: #### L 3100.5040, L500.4050, L3100.5030, L100.0100 ####[facility] [address] [place], [address] RDW SD 48.7 fl High 35.1-43.9 [facility] Comment on above: Performed By: #### L 3100.5040, L500.4050, L3100.5030, L100.0100 ####[facility] [address] [place], [address] WBC (Bld) [#/Vol] 5.2 10*3/uL Normal 4.4-11.[address] [facility] Comment on above: Performed By: #### L 3100.5040, L500.4050, L3100.5030, L100.0100 ####[facility] [address] [place], [address] Carbon dioxide, total [Moles /volume] in Central venous bloodOrdered By: Sultana Finn on 03-14-2025 CO2 [Moles/Vol] 26.1 mmol/L 21.0-32.0 [facility] Chloride assayOrdered By: Saurabh Finn on 03-14-2025 Chloride [Moles/Vol] 100 mmol/L 98-108 [facility] Comprehensive Metabolic Prof ilon 03-14-2025 Albumin [Mass/Vol] 3.7 g/dL Normal 3.4-4.[address] [facility] Comment on above: Performed By: #### L 3100.5040, L500.4050, L3100.5030, L100.0100 ####[facility] [address] [place], [address] Albumin/Globulin [Mass ratio] 1.3 {ratio} Normal 0.9-2.4 [facility] Comment on above: Performed By: #### L 3100.5040, L500.4050, L3100.5030, L100.0100 ####[facility] [address] [place], [address] ALK PHOS 181 U/L High 35-104 [facility] Comment on above: Performed By: #### L 3100.5040, L500.4050, L3100.5030, L100.0100 ####[facility] [address] [place], [address] ALT [Catalytic activity/Vol] 32 U/L Normal <=34 [facility] Comment on above: Performed By: #### L 3100.5040, L500.4050, L3100.5030, L100.0100 ####[facility] [address] [place], [address] AST [Catalytic activity/Vol] 42 U/L High <=31 [facility] Comment on above: Performed By: #### L 3100.5040, L500.4050, L3100.5030, L100.0100 ####[facility] [address] [place], [address] Bilirubin [Mass/Vol] 0.39 mg/dL Normal 0.00-1.30 [facility] Comment on above: Performed By: #### L 3100.5040, L500.4050, L3100.5030, L100.0100 ####[facility] [address] [place], [address] BUN/CRE 18.2 RATIO Normal 10-20 [facility] Comment on above: Performed By: #### L 3100.5040, L500.4050, L3100.5030, L100.0100 ####[facility] [address] [place], [address] Calcium [Mass/Vol] 9.8 mg/dL Normal 7.6-11.[address] [facility] Comment on above: Performed By: #### L 3100.5040, L500.4050, L3100.5030, L100.0100 ####[facility] [address] [place], [address] Chloride [Moles/Vol] 100 mmol/L Normal 98-108 [facility] Comment on above: Performed By: #### L 3100.5040, L500.4050, L3100.5030, L100.0100 ####[facility] [address] [place], [address] CO2 [Moles/Vol] 26.1 mmol/L Normal 21.0-32.0 [facility] Comment on above: Performed By: #### L 3100.5040, L500.4050, L3100.5030, L100.0100 ####[facility] [address] [place], [address] Creatinine [Mass/Vol] 1.05 mg/dL Normal 0.70-1.20 [facility] Comment on above: Performed By: #### L 3100.5040, L500.4050, L3100.5030, L100.0100 ####[facility] [address] [place], [address] ECRCL 59.00 ml/min Normal 50-250 [facility] Comment on above: Performed By: #### L 3100.5040, L500.4050, L3100.5030, L100.0100 ####[facility] [address] [place], [address] GAP 13 Normal 5-15 [facility] Comment on above: Performed By: #### L 3100.5040, L500.4050, L3100.5030, L100.0100 ####[facility] [address] [place], [address] GFR/1.73 sq M.predicted among non-blacks MDRD (S/P/Bld) [Vol rate/Area] 56 mL/min/{1.73_m2} Low >60 [facility] Comment on above: Result Comment: mL/m in/1.73m2 CKD-EPI Creatinine Equation (2020) Performed By: #### L 3100.5040, L500.4050, L3100.5030, L100.0100 ####[facility] [address] [place], [address] Globulin (S) [Mass/Vol] 2.9 g/dL Normal 2.2-4.2 [facility] Comment on above: Performed By: #### L 3100.5040, L500.4050, L3100.5030, L100.0100 ####[facility] [address] [place], [address] Glucose [Mass/Vol] 185 mg/dL High 70-[address] [facility] Comment on above: Performed By: #### L 3100.5040, L500.4050, L3100.5030, L100.0100 ####[facility] [address] [place], [address] Potassium [Moles/Vol] 3.9 mmol/L Normal 3.3-5.1 [facility] Comment on above: Result Comment: Hemo lysis present, Results??could be affected.?? Performed By: #### L 3100.5040, L500.4050, L3100.5030, L100.0100 ####[facility] [address] [place], [address] Sodium [Moles/Vol] 139 mmol/L Normal 133-[address] [facility] Comment on above: Performed By: #### L 3100.5040, L500.4050, L3100.5030, L100.0100 ####[facility] [address] [place], [place], [id number] T PROT 6.7 g/dL Normal 5.9-8.4 [facility] Comment on above: Performed By: #### L 3100.5040, L500.4050, L3100.5030, L100.0100 ####[facility] [address] [place], [address] Urea nitrogen [Mass/Vol] 19 mg/dL Normal 4-19 [facility] Comment on above: Performed By: #### L 3100.5040, L500.4050, L3100.5030, L100.0100 ####[facility] [address] [place], [place], [phone]) Eosinophil percentageOrdered By: Sultana Finn on 03-14-2025 Eosinophils/100 WBC (Bld) 4.8 % 0-5 [facility] Erythrocyte distribution wid th ratioOrdered By: Slutana Finn on 03-14-2025 Erythrocyte distribution width (RBC) [Ratio] 13.5 % 11.6-14.6 [facility] Erythrocyte distribution wid th standard deviationOrdered By: Sultana Finn on 03-14-2025 Erythrocyte distribution width (RBC) [Ratio] 48.7 fl High 35.1-43.9 [facility] Glomerular filtration rate ( GFR) estimation/1.73 sq m using serum, plasma, or whole bOrdered By: Sultana Finn on 03-14-2025 GFR/1.73 sq M.predicted among non-blacks MDRD (S/P/Bld) [Vol rate/Area] 56 mL/min/{1.73_m2} Low >60 [facility] Comment on above: mL/min/1.73m2 CKD-EP I Creatinine Equation (2020) Hematocrit Auto (Bld) [Volum e fraction]Ordered By: Sultana Finn on 03-14-2025 Hematocrit (Bld) [Volume fraction] 33.0 % Low 37-47 [facility] Hemoglobin measurementOrdere d By: Sultana Finn on 03-14-2025 Hemoglobin (Bld) [Mass/Vol] 11.7 g/dL Low 12.0-15.0 [facility] Immature granulocytes/100 WB C Auto (Bld)Ordered By: Sultana Finn on 03-14-2025 Immature granulocytes/100 WBC (Bld) 1.000 % High 0.0-0.9 [facility] Comment on above: IG% - Immature Granu locytes (promyelocytes, myelocytes and metamyelocytes) > 1% indicates that a LEFT SHIFT is Present. Laboratory - Chemistry and C hemistry - challengeOrdered By: Sultana Finn on 03-14-2025 AST [Catalytic activity/Vol] 42 U/L High <32 [facility] MCV (mean corpuscular volume ) determinationOrdered By: Sultana Finn on 03-14-2025 MCV (RBC) [Entitic vol] 98.2 fL 81-99 [facility] Mean corpuscular hemoglobin (MCH) determinationOrdered By: Sultana Finn on 03-14-2025 MCH (RBC) [Entitic mass] 34.8 pg High 27.0-32.0 [facility] Mean corpuscular hemoglobin concentration (MCHC) determinationOrdered By: Sultana EspañaAakash on 03-14-2025 MCHC (RBC) [Mass/Vol] 35.5 g/dL 32-36 [facility] Mean platelet volume determi nationOrdered By: Sultana EspañaAakash on 03-14-2025 Platelet mean volume (Bld) [Entitic vol] 9.5 fL 6.2-12.0 [facility] Monocyte percentageOrdered B y: Sultana Finn on 03-14-2025 Monocytes/100 WBC (Bld) 9.4 % 0-10 [facility] Neutrophil percentageOrdered By: Sultana EspañaAakash on 03-14-2025 Neutrophils/100 WBC (Bld) 64.0 % 47-70 [facility] Nucleated red blood cell per centageOrdered By: Sultana EspañaAakash on 03-14-2025 Nucleated RBC/100 WBC (Bld) [Ratio] 0 % 0-5 [facility] Oncology Visit Reporton 07-0 Oncology Visit Report [facility] Platelet countOrdered By: Saurabh Finn on 03-14-2025 Platelets (Bld) [#/Vol] 193 10*3/uL 150-450 [facility] Potassium measurement (mass/ volume)Ordered By: Sultana Finn on 03-14-2025 Potassium (Unsp spec) [Mass/Vol] 3.9 mmol/L 3.3-5.1 [facility] Comment on above: Hemolysis present, R esults could be affected. RBC Auto (Bld) [#/Vol]Ordere d By: Sultana Finn on 03-14-2025 RBC (Bld) [#/Vol] 3.36 10*6/uL Low 4.2-5.4 [facility] Radiation Oncology Visiton 0 03-14-2025 Radiation Oncology Visit Normal [facility] Serum creatinine measurement (mass/volume)Ordered By: Sultana Finn on 03-14-2025 Creatinine [Mass/Vol] 1.05 mg/dL 0.70-1.20 [facility] Serum globulin measurementOr dered By: Sultana Finn on 03-14-2025 Globulin (S) [Mass/Vol] 2.9 g/dL 2.2-4.2 [facility] Serum glucose measurement (m ass/volume)Ordered By: Sultana Finn on 03-14-2025 Glucose [Mass/Vol] 185 mg/dL High 70-[address] [facility] Serum or plasma alanine skinner otransferase (ALT) measurementOrdered By: Sultana Finn on 03-14-2025 ALT [Catalytic activity/Vol] 32 U/L <35 [facility] Serum or plasma albumin amanda urement (mass/volume)Ordered By: Sultana Finn on 03-14-2025 Albumin [Mass/Vol] 3.7 g/dL 3.4-4.[address] [facility] Serum or plasma albumin/glob ulin mass ratioOrdered By: Sultana Finn on 03-14-2025 Albumin/Globulin [Mass ratio] 1.3 {ratio} 0.9-2.4 [facility] Serum or plasma alkaline domenico sphatase measurementOrdered By: Sultana Finn on 03-14-2025 ALP [Catalytic activity/Vol] 181 U/L High 35-104 [facility] Serum or plasma calcium amanda urement (mass/volume)Ordered By: Sultana Finn on 03-14-2025 Calcium [Mass/Vol] 9.8 mg/dL 7.6-11.[address] [facility] Serum or plasma urea nitroge n measurement (mass/volume)Ordered By: Sultana Finn on 03-14-2025 Urea nitrogen [Mass/Vol] 19 mg/dL 4-19 [facility] Sodium levelOrdered By: Sultana EspañaAakash on 03-14-2025 Sodium [Moles/Vol] 139 mmol/L 133-[address] [facility] Total proteinOrdered By: Chaka Finn on 03-14-2025 Protein [Mass/Vol] 6.7 g/dL 5.9-8.[address] [facility] White blood cell (WBC) count Ordered By: Sultana Finn on 03-14-2025 WBC (Bld) [#/Vol] 5.2 10*3/uL 4.4-11.[address] [facility] CA 15-3on 02-15-2025 CA 15-3 27.3 U/mL Abnormal 0.0-25.0 [facility] Comment on above: Order Comment: ADD O N FROM TODAY, THANKS Result Comment: [employer] Electrochemiluminescence Immunoassay(ECLIA)Values obtained with different assay methods or kits cannotbe used interchangeably. Results cannot be interpreted asabsolute evidence of the presence or absence of malignantdisease.Performed at: [place] [id number] Director: Reese Willingham PhD, Phone: [phone] Performed By: #### L 3288.7600, L3048.3111 ####[facility] [address] [place], [place], [id number] CA 27.29on 02-15-2025 CA 27.29 35.2 U/mL Normal 0.0-38.6 [facility] Comment on above: Order Comment: ADD O N FROM TODAY, THANKS Result Comment: Siem Netacaur Immunochemiluminometric Methodology (ICMA)Values obtained with different assay methods or kits cannotbe used interchangeably. Results cannot be interpreted asabsolute evidence of the presence or absence of malignantdisease. Performed By: #### L 3100.5030, L3100.5040 ####[facility] [address] [place], [address] Absolute lymphocyte countOrd ered By: Myron Karli on 02-14-2025 Lymphocytes Auto (Unsp spec) [#/Vol] 0.69 10*3/uL Low 0.83-4.51 [facility] Absolute neutrophil countOrd ered By: Myron Magui on 02-14-2025 Neutrophils (Bld) [#/Vol] 0.9 10*3/uL Low 2.0-7.7 [facility] Anion gap in Serum or Plasma Ordered By: Myron Calvillo on 02-14-2025 Anion gap [Moles/Vol] 12 mmol/L 5-15 [facility] Automated lymphocyte count a s percentage of total leukocytesOrdered By: Myron Karli on 02-14-2025 Lymphocytes/100 WBC Auto (Unsp spec) 32.9 % 19-41 [facility] BUN/creatinine ratioOrdered By: Myron Karli on 02-14-2025 Urea nitrogen/Creatinine [Mass ratio] 22.3 mg/mg High 10-20 [facility] Basophil percentageOrdered B y: Myron Kilgore on 02-14-2025 Basophils/100 WBC (Bld) 2.4 % High 0-1 [facility] Bilirubin, totalOrdered By: [facility]ron [facility]25 Bilirubin [Mass/Vol] 0.38 mg/dL 0.00-1.30 [facility] Blood polychromasia detectio n by light microscopyOrdered By: Myron Calvillo on 02-14-2025 Polychromasia LM Ql (Bld) 1+ [facility] CA 15-3Ordered By: Sultana dumont on 02-14-2025 CA 15-3 27.3 U/mL High 0.0-25.0 [facility] Comment on above: [employer] El ectrochemiluminescence Immunoassay(ECLIA)Values obtained with different assay methods or kits cannotbe used interchangeably. Results cannot be interpreted asabsolute evidence of the presence or absence of malignantdisease.Performed at: [facility] [address] [id number] Director: Reese Willingham PhD, Phone: [phone] CA 27.29Ordered By: Sultana butler on 02-14-2025 CA 27.29 35.2 U/mL 0.0-38.6 [facility] Comment on above: Siemens Centaur Immu nochemiluminometric Methodology (ICMA)Values obtained with different assay methods or kits cannotbe used interchangeably. Results cannot be interpreted asabsolute evidence of the presence or absence of malignantdisease. CBC W/Diff, Automatedon PLT EST A Normal ADEQ [facility] Comment on above: Performed By: #### L 504.2610, L500.4050, L100.0100 ####[facility] [address] [place], [address] POLYCHROMASIA 1+ Normal [facility] Comment on above: Performed By: #### L 504.2610, L500.4050, L100.0100 ####[facility] [address], [address] Carbon dioxide, total [Moles /volume] in Central venous bloodOrdered By: Myron Calvillo on 02-14-2025 CO2 [Moles/Vol] 27.0 mmol/L 21.0-32.0 [facility] Chloride assayOrdered By: Destinee Calvillo on 02-14-2025 Chloride [Moles/Vol] 99 mmol/L 98-108 [facility] Comprehensive Metabolic Prof ilon 02-14-2025 Albumin [Mass/Vol] 3.8 g/dL Normal 3.4-4.[address] [facility] Comment on above: Performed By: #### L 504.2610, L500.4050, L100.0100 ####[facility] [address] [place], [address] Albumin/Globulin [Mass ratio] 1.4 {ratio} Normal 0.9-2.4 [facility] Comment on above: Performed By: #### L 504.2610, L500.4050, L100.0100 ####[facility] [address] [place], [address] ALK PHOS 160 U/L High 35-104 [facility] Comment on above: Performed By: #### L 504.2610, L500.4050, L100.0100 ####[facility] [address] [place], [address] ALT [Catalytic activity/Vol] 33 U/L Normal <=34 [facility] Comment on above: Performed By: #### L 504.2610, L500.4050, L100.0100 ####[facility] [address] [place], [address] AST [Catalytic activity/Vol] 59 U/L High <=31 [facility] Comment on above: Performed By: #### L 504.2610, L500.4050, L100.0100 ####[facility] [address] [place], [address] Bilirubin [Mass/Vol] 0.38 mg/dL Normal 0.00-1.30 [facility] Comment on above: Performed By: #### L 504.2610, L500.4050, L100.0100 ####[facility] [address] [place], [address] BUN/CRE 22.3 RATIO High 10-20 [facility] Comment on above: Performed By: #### L 504.2610, L500.4050, L100.0100 ####[facility] [address] [place], [address] Calcium [Mass/Vol] 9.6 mg/dL Normal 7.6-11.[address] [facility] Comment on above: Performed By: #### L 504.2610, L500.4050, L100.0100 ####[facility] [address] [place], [address] Chloride [Moles/Vol] 99 mmol/L Normal 98-108 [facility] Comment on above: Performed By: #### L 504.2610, L500.4050, L100.0100 ####[facility] [address] [place], [address] CO2 [Moles/Vol] 27.0 mmol/L Normal 21.0-32.0 [facility] Comment on above: Performed By: #### L 504.2610, L500.4050, L100.0100 ####[facility] [address] [place], [address] Creatinine [Mass/Vol] 1.13 mg/dL Normal 0.70-1.20 [facility] Comment on above: Performed By: #### L 504.2610, L500.4050, L100.0100 ####[facility] [address] [place], [address] ECRCL 55.63 ml/min Normal 50-250 [facility] Comment on above: Performed By: #### L 504.2610, L500.4050, L100.0100 ####[facility] [address] [place], [address] GAP 12 Normal 5-15 [facility] Comment on above: Performed By: #### L 504.2610, L500.4050, L100.0100 ####[facility] [address] [place], [address] GFR/1.73 sq M.predicted among non-blacks MDRD (S/P/Bld) [Vol rate/Area] 52 mL/min/{1.73_m2} Low >60 [facility] Comment on above: Result Comment: mL/m in/1.73m2 CKD-EPI Creatinine Equation (2020) Performed By: #### L 504.2610, L500.4050, L100.0100 ####[facility] [address] [place], [address] Globulin (S) [Mass/Vol] 2.8 g/dL Normal 2.2-4.2 [facility] Comment on above: Performed By: #### L 504.2610, L500.4050, L100.0100 ####[facility] [address] [place], [address] Glucose [Mass/Vol] 160 mg/dL High 70-[address] [facility] Comment on above: Performed By: #### L 504.2610, L500.4050, L100.0100 ####[facility] [address] [place], [address] Potassium [Moles/Vol] 4.2 mmol/L Normal 3.3-5.1 [facility] Comment on above: Performed By: #### L 504.2610, L500.4050, L100.0100 ####[facility] [address] [place], [address] Sodium [Moles/Vol] 139 mmol/L Normal 133-[address] [facility] Comment on above: Performed By: #### L 504.2610, L500.4050, L100.0100 ####[facility] [address] [place], [address] T PROT 6.6 g/dL Normal 5.9-8.4 [facility] Comment on above: Performed By: #### L 504.2610, L500.4050, L100.0100 ####[facility] [address] [place], [address] Urea nitrogen [Mass/Vol] 25 mg/dL High 4-19 [facility] Comment on above: Performed By: #### L 504.2610, L500.4050, L100.0100 ####[facility] [address] [place], [address] Eosinophil percentageOrdered By: [facility] on 02-14-2025 Eosinophils/100 WBC (Bld) 5.7 % High 0-5 [facility] Erythrocyte distribution wid th ratioOrdered By: [facility] on 02-14-2025 Erythrocyte distribution width (RBC) [Ratio] 13.8 % 11.6-14.6 [facility] Erythrocyte distribution wid th standard deviationOrdered By: [facility] on 02-14-2025 Erythrocyte distribution width (RBC) [Ratio] 52.3 fl High 35.1-43.9 [facility] Glomerular filtration rate ( GFR) estimation/1.73 sq m using serum, plasma, or whole bOrdered By: [facility] on 02-14-2025 GFR/1.73 sq M.predicted among non-blacks MDRD (S/P/Bld) [Vol rate/Area] 52 mL/min/{1.73_m2} Low >60 [facility] Comment on above: mL/min/1.73m2 CKD-EP I Creatinine Equation (2020) Hematocrit Auto (Bld) [Volum e fraction]Ordered By: [facility] on 02-14-2025 Hematocrit (Bld) [Volume fraction] 32.2 % Low 37-47 [facility] Hemoglobin measurementOrdere d By: [facility] on 02-14-2025 Hemoglobin (Bld) [Mass/Vol] 11.1 g/dL Low 12.0-15.0 [facility] Immature granulocytes/100 WB C Auto (Bld)Ordered By: [facility]ron [facility] 02-14-2025 Immature granulocytes/100 WBC (Bld) 0.500 % 0.0-0.9 [facility] Comment on above: IG% - Immature Granu locytes (promyelocytes, myelocytes and metamyelocytes) > 1% indicates that a LEFT SHIFT is Present. LDHon 02-14-2025 LDH 196 U/L Normal 84-246 [facility] Comment on above: Order Comment: 1 Performed By: #### L 504.2610, L500.4050, L100.0100 ####[facility] [address] [place], [place], [id number] Laboratory - Chemistry and C hemistry - challengeOrdered By: Myron Calvillo on 02-14-2025 AST [Catalytic activity/Vol] 59 U/L High <32 [facility] Lactate dehydrogenase (LDH) measurementOrdered By: Myron Calvillo on 02-14-2025 LDH [Catalytic activity/Vol] 196 U/L 84-246 [facility] MCV (mean corpuscular volume ) determinationOrdered By: Myron Calvillo on 02-14-2025 MCV (RBC) [Entitic vol] 101.9 fL High 81-99 [facility] Mean corpuscular hemoglobin (MCH) determinationOrdered By: Myron Calvillo on 02-14-2025 MCH (RBC) [Entitic mass] 35.1 pg High 27.0-32.0 [facility] Mean corpuscular hemoglobin concentration (MCHC) determinationOrdered By: Myron Calvillo on 02-14-2025 MCHC (RBC) [Mass/Vol] 34.5 g/dL 32-36 [facility] Mean platelet volume determi nationOrdered By: Myron Calvillo on 02-14-2025 Platelet mean volume (Bld) [Entitic vol] 9.8 fL 6.2-12.0 [facility] Monocyte percentageOrdered B y: yMron Calvillo on 02-14-2025 Monocytes/100 WBC (Bld) 14.3 % High 0-10 [facility] Neutrophil percentageOrdered By: Myron Calvillo on 02-14-2025 Neutrophils/100 WBC (Bld) 44.2 % Low 47-70 [facility] Nucleated red blood cell per centageOrdered By: Myron Calvillo on 02-14-2025 Nucleated RBC/100 WBC (Bld) [Ratio] 1.0 % 0-5 [facility] Oncology Visit Reporton 06-0 Oncology Visit Report Normal [facility] Platelet countOrdered By: Destinee Calvillo on 02-14-2025 Platelets (Bld) [#/Vol] 161 10*3/uL 150-450 [facility] Platelet estimateOrdered By: Myron Calvillo on 02-14-2025 Platelets LM Ql (Bld) A ADEQ [facility] Potassium measurement (mass/ volume)Ordered By: Myron Calvillo on 02-14-2025 Potassium (Unsp spec) [Mass/Vol] 4.2 mmol/L 3.3-5.1 [facility] RBC Auto (Bld) [#/Vol]Ordere d By: Myron Calvillo on 02-14-2025 RBC (Bld) [#/Vol] 3.16 10*6/uL Low 4.2-5.4 [facility] Serum creatinine measurement (mass/volume)Ordered By: Myron Calvillo on 02-14-2025 Creatinine [Mass/Vol] 1.13 mg/dL 0.70-1.20 [facility] Serum globulin measurementOr dered By: Myron Calvillo on 02-14-2025 Globulin (S) [Mass/Vol] 2.8 g/dL 2.2-4.2 [facility] Serum glucose measurement (m ass/volume)Ordered By: Myron Calvillo on 02-14-2025 Glucose [Mass/Vol] 160 mg/dL High 70-[address] [facility] Serum or plasma alanine skinner otransferase (ALT) measurementOrdered By: Myron Calvillo on 02-14-2025 ALT [Catalytic activity/Vol] 33 U/L <35 [facility] Serum or plasma albumin amanda urement (mass/volume)Ordered By: Myron Calvillo on 02-14-2025 Albumin [Mass/Vol] 3.8 g/dL 3.4-4.[address] [facility] Serum or plasma albumin/glob ulin mass ratioOrdered By: Myron Calvillo on 02-14-2025 Albumin/Globulin [Mass ratio] 1.4 {ratio} 0.9-2.4 [facility] Serum or plasma alkaline domenico sphatase measurementOrdered By: Myron Calvillo on 02-14-2025 ALP [Catalytic activity/Vol] 160 U/L High 35-104 [facility] Serum or plasma calcium amanda urement (mass/volume)Ordered By: Myron Calvillo on 02-14-2025 Calcium [Mass/Vol] 9.6 mg/dL 7.6-11.[address] [facility] Serum or plasma urea nitroge n measurement (mass/volume)Ordered By: Myron Calvillo on 02-14-2025 Urea nitrogen [Mass/Vol] 25 mg/dL High 4-19 [facility] Sodium levelOrdered By: Yaakov Calvillo on 02-14-2025 Sodium [Moles/Vol] 139 mmol/L 133-[address] [facility] Total proteinOrdered By: Kavon Calvillo on 02-14-2025 Protein [Mass/Vol] 6.6 g/dL 5.9-8.[address] [facility] White blood cell (WBC) count Ordered By: Myron Calvillo on 02-14-2025 WBC (Bld) [#/Vol] 2.1 10*3/uL Low 4.4-11.[address] [facility] Radiation Oncology Visiton 0 02-12-2025 Radiation Oncology Visit Normal [facility] Radiation Oncology Visiton 0 02-11-2025 Radiation Oncology Visit Normal [facility] Radiation Oncology Visiton 0 01-24-2025 Radiation Oncology Visit Normal [facility] Absolute lymphocyte countOrd ered By: Myron Calvillo on 01-17-2025 Lymphocytes Auto (Unsp spec) [#/Vol] 0.70 10*3/uL Low 0.83-4.51 [facility] Absolute neutrophil countOrd ered By: Myron Calvillo on 01-17-2025 Neutrophils (Bld) [#/Vol] 1.2 10*3/uL Low 2.0-7.7 [facility] Anion gap in Serum or Plasma Ordered By: Myron Calvillo on 01-17-2025 Anion gap [Moles/Vol] 11 mmol/L 5- [facility] Automated lymphocyte count a s percentage of total leukocytesOrdered By: Myron Calvillo on 01-17-2025 Lymphocytes/100 WBC Auto (Unsp spec) 28.9 % 19- [facility] BUN/creatinine ratioOrdered By: Myron Calvillo on 01-17-2025 Urea nitrogen/Creatinine [Mass ratio] 16.4 mg/mg 10-20 [facility] Basophil percentageOrdered B y: Myron Calvillo on 01-17-2025 Basophils/100 WBC (Bld) 2.1 % High 0-1 [facility] Bilirubin, totalOrdered By: Myron Calvillo on 01-17-2025 Bilirubin [Mass/Vol] 0.34 mg/dL 0.00-1.30 [facility] CBC W/Diff, Automatedon Absolute Lymph 0.70 X10 3/uL Low 0.83-4.51 [facility] Comment on above: Performed By: #### L 500.4050, L100.0100 ####[facility] [address] [place], [address] Absolute Neut 1.2 X10 3/uL Low 2.0-7.7 [facility] Comment on above: Performed By: #### L 500.4050, L100.0100 ####[facility] [address] [place], [address] Basophils/100 WBC (Bld) 2.1 % High 0-1 [facility] Comment on above: Performed By: #### L 500.4050, L100.0100 ####[facility] [address] [place], [address] Eosinophils/100 WBC (Bld) 7.9 % High 0-5 [facility] Comment on above: Performed By: #### L 500.4050, L100.0100 ####[facility] [address] [place], [address] Erythrocyte distribution width (RBC) [Ratio] 13.8 % Normal 11.6-14.6 [facility] Comment on above: Performed By: #### L 500.4050, L100.0100 ####[facility] [address] [place], [address] Hematocrit (Bld) [Volume fraction] 30.8 % Low 37-47 [facility] Comment on above: Performed By: #### L 500.4050, L100.0100 ####[facility] [address] [place], [address] Hemoglobin (Bld) [Mass/Vol] 11.0 g/dL Low 12.0-15.0 [facility] Comment on above: Performed By: #### L 500.4050, L100.0100 ####[facility] [address] [place], [address] IG% 0.000 Normal 0.0-0.9 [facility] Comment on above: Result Comment: IG% - Immature Granulocytes (promyelocytes, myelocytes andmetamyelocytes) > 1% indicates that a LEFT SHIFT is Present. Performed By: #### L 500.4050, L100.0100 ####[facility] [address] [place], [address] Lymphocytes/100 WBC (Bld) 28.9 % Normal 19-41 [facility] Comment on above: Performed By: #### L 500.4050, L100.0100 ####[facility] [address] [place], [address] MCH (RBC) [Entitic mass] 35.7 pg High 27.0-32.0 [facility] Comment on above: Performed By: #### L 500.4050, L100.0100 ####[facility] [address] [place], [address] MCHC (RBC) [Mass/Vol] 35.7 g/dL Normal 32-36 [facility] Comment on above: Performed By: #### L 500.4050, L100.0100 ####[facility] [address] [place], [address] MCV (RBC) [Entitic vol] 100.0 fL High 81-99 [facility] Comment on above: Performed By: #### L 500.4050, L100.0100 ####[facility] [address] [place], [address] Monocytes/100 WBC (Bld) 13.6 % High 0-10 [facility] Comment on above: Performed By: #### L 500.4050, L100.0100 ####[facility] [address] [place], [address] Neutrophils/100 WBC (Bld) 47.5 % Normal 47-70 [facility] Comment on above: Performed By: #### L 500.4050, L100.0100 ####[facility] [address] [place], [address] Nucleated RBC (Bld) [#/Vol] 0 10*3/uL Normal 0-5 [facility] Comment on above: Performed By: #### L 500.4050, L100.0100 ####[facility] [address] [place], [address] Platelet mean volume (Bld) [Entitic vol] 9.7 fL Normal 6.2-12.0 [facility] Comment on above: Performed By: #### L 500.4050, L100.0100 ####[facility] [address] [place], [address] Platelets (Bld) [#/Vol] 145 10*3/uL Low 150-450 [facility] Comment on above: Performed By: #### L 500.4050, L100.0100 ####[facility] [address] [place], [address] RBC (Bld) [#/Vol] 3.08 10*6/uL Low 4.2-5.4 [facility] Comment on above: Performed By: #### L 500.4050, L100.0100 ####[facility] [address] [place], [address] RDW SD 49.9 fl High 35.1-43.9 [facility] Comment on above: Performed By: #### L 500.4050, L100.0100 ####[facility] [address] [place], [address] WBC (Bld) [#/Vol] 2.4 10*3/uL Low 4.4-11.[address] [facility] Comment on above: Performed By: #### L 500.4050, L100.0100 ####[facility] [address] [place], [address] Carbon dioxide, total [Moles /volume] in Central venous bloodOrdered By: Myron Calvillo on 01-17-2025 CO2 [Moles/Vol] 25.5 mmol/L 21.0-32.0 [facility] Chloride assayOrdered By: Destinee Calvillo on 01-17-2025 Chloride [Moles/Vol] 102 mmol/L 98-108 [facility] Comprehensive Metabolic Prof ilon 01-17-2025 Albumin [Mass/Vol] 3.7 g/dL Normal 3.4-4.[address] [facility] Comment on above: Performed By: #### L 500.4050, L100.0100 ####[facility] [address] [place], [address] Albumin/Globulin [Mass ratio] 1.3 {ratio} Normal 0.9-2.4 [facility] Comment on above: Performed By: #### L 500.4050, L100.0100 ####[facility] [address] [place], [address] ALK PHOS 132 U/L High 35-104 [facility] Comment on above: Performed By: #### L 500.4050, L100.0100 ####[facility] [address] [place], [address] ALT [Catalytic activity/Vol] 12 U/L Normal <=34 [facility] Comment on above: Performed By: #### L 500.4050, L100.0100 ####[facility] [address] [place], [address] AST [Catalytic activity/Vol] 33 U/L High <=31 [facility] Comment on above: Performed By: #### L 500.4050, L100.0100 ####[facility] [address] [place], [address] Bilirubin [Mass/Vol] 0.34 mg/dL Normal 0.00-1.30 [facility] Comment on above: Performed By: #### L 500.4050, L100.0100 ####[facility] [address] [place], [address] BUN/CRE 16.4 RATIO Normal 10-20 [facility] Comment on above: Performed By: #### L 500.4050, L100.0100 ####[facility] [address] [place], [address] Calcium [Mass/Vol] 9.6 mg/dL Normal 7.6-11.[address] [facility] Comment on above: Performed By: #### L 500.4050, L100.0100 ####[facility] [address] [place], [address] Chloride [Moles/Vol] 102 mmol/L Normal 98-108 [facility] Comment on above: Performed By: #### L 500.4050, L100.0100 ####[facility] [address] [place], [address] CO2 [Moles/Vol] 25.5 mmol/L Normal 21.0-32.0 [facility] Comment on above: Performed By: #### L 500.4050, L100.0100 ####[facility] [address] [place], [address] Creatinine [Mass/Vol] 1.17 mg/dL Normal 0.70-1.20 [facility] Comment on above: Performed By: #### L 500.4050, L100.0100 ####[facility] [address] [place], [address] ECRCL 53.86 ml/min Normal 50-250 [facility] Comment on above: Performed By: #### L 500.4050, L100.0100 ####[facility] [address] [place], [address] GAP 11 Normal 5-15 [facility] Comment on above: Performed By: #### L 500.4050, L100.0100 ####[facility] [address] [place], [address] GFR/1.73 sq M.predicted among non-blacks MDRD (S/P/Bld) [Vol rate/Area] 50 mL/min/{1.73_m2} Low >60 [facility] Comment on above: Result Comment: mL/m in/1.73m2 CKD-EPI Creatinine Equation (2020) Performed By: #### L 500.4050, L100.0100 ####[facility] [address] [place], [address] Globulin (S) [Mass/Vol] 2.8 g/dL Normal 2.2-4.2 [facility] Comment on above: Performed By: #### L 500.4050, L100.0100 ####[facility] [address] [place], [address] Glucose [Mass/Vol] 178 mg/dL High 70-[address] [facility] Comment on above: Performed By: #### L 500.4050, L100.0100 ####[facility] [address] [place], [address] Potassium [Moles/Vol] 4.2 mmol/L Normal 3.3-5.1 [facility] Comment on above: Performed By: #### L 500.4050, L100.0100 ####[facility] [address] [place], [address] Sodium [Moles/Vol] 139 mmol/L Normal 133-[address] [facility] Comment on above: Performed By: #### L 500.4050, L100.0100 ####[facility] [address] [place], [address] T PROT 6.4 g/dL Normal 5.9-8.4 [facility] Comment on above: Performed By: #### L 500.4050, L100.0100 ####[facility] [address] [place], [address] Urea nitrogen [Mass/Vol] 19 mg/dL Normal 4-19 [facility] Comment on above: Performed By: #### L 500.4050, L100.0100 ####[facility] [address] [place], [address] Eosinophil percentageOrdered By: Myron Calvillo on 01-17-2025 Eosinophils/100 WBC (Bld) 7.9 % High 0-5 [facility] Erythrocyte distribution wid th ratioOrdered By: Myron Calvillo on 01-17-2025 Erythrocyte distribution width (RBC) [Ratio] 13.8 % 11.6-14.6 [facility] Erythrocyte distribution wid th standard deviationOrdered By: Myron Calvillo on 01-17-2025 Erythrocyte distribution width (RBC) [Ratio] 49.9 fl High 35.1-43.9 [facility] Glomerular filtration rate ( GFR) estimation/1.73 sq m using serum, plasma, or whole bOrdered By: Myron Calvillo on 01-17-2025 GFR/1.73 sq M.predicted among non-blacks MDRD (S/P/Bld) [Vol rate/Area] 50 mL/min/{1.73_m2} Low >60 [facility] Comment on above: mL/min/1.73m2 CKD-EP I Creatinine Equation (2020) Hematocrit Auto (Bld) [Volum e fraction]Ordered By: Myron Calvillo on 01-17-2025 Hematocrit (Bld) [Volume fraction] 30.8 % Low 37-47 [facility] Hemoglobin measurementOrdere d By: Myron Calvillo on 01-17-2025 Hemoglobin (Bld) [Mass/Vol] 11.0 g/dL Low 12.0-15.0 [facility] Immature granulocytes/100 WB C Auto (Bld)Ordered By: Myron Calvillo on 01-17-2025 Immature granulocytes/100 WBC (Bld) 0.000 % 0.0-0.9 [facility] Comment on above: IG% - Immature Granu locytes (promyelocytes, myelocytes and metamyelocytes) > 1% indicates that a LEFT SHIFT is Present. Laboratory - Chemistry and C hemistry - challengeOrdered By: Myron Calvillo on 01-17-2025 AST [Catalytic activity/Vol] 33 U/L High <32 [facility] MCV (mean corpuscular volume ) determinationOrdered By: Myron Calvillo on 01-17-2025 MCV (RBC) [Entitic vol] 100.0 fL High 81-99 [facility] Mean corpuscular hemoglobin (MCH) determinationOrdered By: Myron Calvillo on 01-17-2025 MCH (RBC) [Entitic mass] 35.7 pg High 27.0-32.0 [facility] Mean corpuscular hemoglobin concentration (MCHC) determinationOrdered By: Myron Calvillo on 01-17-2025 MCHC (RBC) [Mass/Vol] 35.7 g/dL 32-36 [facility] Mean platelet volume determi nationOrdered By: Myron Calvillo on 01-17-2025 Platelet mean volume (Bld) [Entitic vol] 9.7 fL 6.2-12.0 [facility] Monocyte percentageOrdered B y: Myron Calvillo on 01-17-2025 Monocytes/100 WBC (Bld) 13.6 % High 0-10 [facility] Neutrophil percentageOrdered By: Myron Calvillo on 01-17-2025 Neutrophils/100 WBC (Bld) 47.5 % 47-70 [facility] Nucleated red blood cell per centageOrdered By: Myron Calvillo on 01-17-2025 Nucleated RBC/100 WBC (Bld) [Ratio] 0 % 0-5 [facility] Oncology Visit Reporton Oncology Visit Report [facility] Platelet countOrdered By: Destinee Calvillo on 01-17-2025 Platelets (Bld) [#/Vol] 145 10*3/uL Low 150-450 [facility] Potassium measurement (mass/ volume)Ordered By: Myron Calvillo on 01-17-2025 Potassium (Unsp spec) [Mass/Vol] 4.2 mmol/L 3.3-5.1 [facility] RBC Auto (Bld) [#/Vol]Ordere d By: Myron Calvillo on 01-17-2025 RBC (Bld) [#/Vol] 3.08 10*6/uL Low 4.2-5.4 [facility] Serum creatinine measurement (mass/volume)Ordered By: Myron Calvillo on 01-17-2025 Creatinine [Mass/Vol] 1.17 mg/dL 0.70-1.20 [facility] Serum globulin measurementOr dered By: Myron Calvillo on 01-17-2025 Globulin (S) [Mass/Vol] 2.8 g/dL 2.2-4.2 [facility] Serum glucose measurement (m ass/volume)Ordered By: Myron Calvillo on 01-17-2025 Glucose [Mass/Vol] 178 mg/dL High 70-[address] [facility] Serum or plasma alanine skinner otransferase (ALT) measurementOrdered By: Myron Calvillo on 01-17-2025 ALT [Catalytic activity/Vol] 12 U/L <35 [facility] Serum or plasma albumin amanda urement (mass/volume)Ordered By: Myron Calvillo on 01-17-2025 Albumin [Mass/Vol] 3.7 g/dL 3.4-4.[address] [facility] Serum or plasma albumin/glob ulin mass ratioOrdered By: Myron Calvillo on 01-17-2025 Albumin/Globulin [Mass ratio] 1.3 {ratio} 0.9-2.4 [facility] Serum or plasma alkaline domenico sphatase measurementOrdered By: Myron Calvillo on 01-17-2025 ALP [Catalytic activity/Vol] 132 U/L High 35-104 [facility] Serum or plasma calcium amanda urement (mass/volume)Ordered By: Myron Calvillo on 01-17-2025 Calcium [Mass/Vol] 9.6 mg/dL 7.6-11.[address] [facility] Serum or plasma urea nitroge n measurement (mass/volume)Ordered By: Myron Calvillo on 01-17-2025 Urea nitrogen [Mass/Vol] 19 mg/dL 4-19 [facility] Sodium levelOrdered By: Yaakov Calvillo on 01-17-2025 Sodium [Moles/Vol] 139 mmol/L 133-[address] [facility] Total proteinOrdered By: Kavon Calvillo on 01-17-2025 Protein [Mass/Vol] 6.4 g/dL 5.9-8.[address] [facility] White blood cell (WBC) count Ordered By: Myron Calvillo on 01-17-2025 WBC (Bld) [#/Vol] 2.4 10*3/uL Low 4.4-11.[address] [facility] PET/CT Tumor Base -Thigh Sub son 01-08-2025 PET/CT Tumor Base -Thigh Subs Normal [facility] CA 15-3on 12-21-2024 CA 15-3 28.8 U/mL Abnormal 0.0-25.0 [facility] Comment on above: Result Comment: [employer] Electrochemiluminescence Immunoassay(ECLIA)Values obtained with different assay methods or kits cannotbe used interchangeably. Results cannot be interpreted asabsolute evidence of the presence or absence of malignantdisease.Performed at: [place] [id number] Director: Reese Willingham PhD, Phone: [phone] Performed By: #### L 100.0100, L3100.5040, L3100.5030, L500.4050, L3100.2300 ####[facility] [address], [address] CA 27.29on 12-21-2024 CA 27.29 33.5 U/mL Normal 0.0-38.6 [facility] Comment on above: Result Comment: [employer] Immunochemiluminometric Methodology (ICMA)Values obtained with different assay methods or kits cannotbe used interchangeably. Results cannot be interpreted asabsolute evidence of the presence or absence of malignantdisease. Performed By: #### L 100.0100, L3100.5040, L3100.5030, L500.4050, L3100.2300 ####[facility] [address] [place], [address] Carcinoembryonic Antigenon 0 12-21-2024 CEA 17.3 ng/mL High 0.0-4.7 [facility] Comment on above: Result Comment: Nons mokers <3.9 Smokers <5.6[employer] Electrochemiluminescence Immunoassay(ECLIA)Values obtained with different assay methods or kitscannot be used interchangeably. Results cannot beinterpreted as absolute evidence of the presence orabsence of malignant disease. Performed By: #### L 100.0100, L3100.5040, L3100.5030, L500.4050, L3100.2300 ####[facility] [address] [place], [place], [id number] CA 15-3Ordered By: Chelsea slade on 12-20-2024 CA 15-3 28.8 U/mL High 0.0-25.0 [facility] Comment on above: [employer] El ectrochemiluminescence Immunoassay(ECLIA)Values obtained with different assay methods or kits cannotbe used interchangeably. Results cannot be interpreted asabsolute evidence of the presence or absence of malignantdisease.Performed at: [place] [id number] Director: Reese Willingham PhD, Phone: [phone] CA 27.29Ordered By: Chelsea connelly on 12-20-2024 CA 27.29 33.5 U/mL 0.0-38.6 [facility] Comment on above: [employer] Immu nochemiluminometric Methodology (ICMA)Values obtained with different assay methods or kits cannotbe used interchangeably. Results cannot be interpreted asabsolute evidence of the presence or absence of malignantdisease. CBC W/Diff, Automatedon 12-11 Absolute Lymph 1.32 X10 3/uL Normal 0.83-4.51 [facility] Comment on above: Performed By: #### L 100.0100, L3100.5040, L3100.5030, L500.4050, L3100.2300 ####[facility] [address] [place], [place], [id number] Absolute Neut 1.8 X10 3/uL Low 2.0-7.7 [facility] Comment on above: Performed By: #### L 100.0100, L3100.5040, L3100.5030, L500.4050, L3100.2300 ####[facility] [address] [place], [address] Basophils/100 WBC (Bld) 1.3 % High 0-1 [facility] Comment on above: Performed By: #### L 100.0100, L3100.5040, L3100.5030, L500.4050, L3100.2300 ####[facility] [address] [place], [address] Eosinophils/100 WBC (Bld) 3.7 % Normal 0-5 [facility] Comment on above: Performed By: #### L 100.0100, L3100.5040, L3100.5030, L500.4050, L3100.2300 ####[facility] [address] [place], [address] Erythrocyte distribution width (RBC) [Ratio] 14.0 % Normal 11.6-14.6 [facility] Comment on above: Performed By: #### L 100.0100, L3100.5040, L3100.5030, L500.4050, L3100.2300 ####[facility] [address] [place], [address] Hematocrit (Bld) [Volume fraction] 35.1 % Low 37-47 [facility] Comment on above: Performed By: #### L 100.0100, L3100.5040, L3100.5030, L500.4050, L3100.2300 ####[facility] [address] [place], [address] Hemoglobin (Bld) [Mass/Vol] 12.3 g/dL Normal 12.0-15.0 [facility] Comment on above: Performed By: #### L 100.0100, L3100.5040, L3100.5030, L500.4050, L3100.2300 ####[facility] [address] [place], [address] IG% 0.500 Normal 0.0-0.9 [facility] Comment on above: Result Comment: IG% - Immature Granulocytes (promyelocytes, myelocytes andmetamyelocytes) > 1% indicates that a LEFT SHIFT is Present. Performed By: #### L 100.0100, L3100.5040, L3100.5030, L500.4050, L3100.2300 ####[facility] [address] [place], [address] Lymphocytes/100 WBC (Bld) 34.7 % Normal 19-41 [facility] Comment on above: Performed By: #### L 100.0100, L3100.5040, L3100.5030, L500.4050, L3100.2300 ####[facility] [address] [place], [address] MCH (RBC) [Entitic mass] 35.5 pg High 27.0-32.0 [facility] Comment on above: Performed By: #### L 100.0100, L3100.5040, L3100.5030, L500.4050, L3100.2300 ####[facility] [address] [place], [address] MCHC (RBC) [Mass/Vol] 35.0 g/dL Normal 32-36 [facility] Comment on above: Performed By: #### L 100.0100, L3100.5040, L3100.5030, L500.4050, L3100.2300 ####[facility] [address] [place], [address] MCV (RBC) [Entitic vol] 101.4 fL High 81-99 [facility] Comment on above: Performed By: #### L 100.0100, L3100.5040, L3100.5030, L500.4050, L3100.2300 ####[facility] [address] [place], [address] Monocytes/100 WBC (Bld) 11.6 % High 0-10 [facility] Comment on above: Performed By: #### L 100.0100, L3100.5040, L3100.5030, L500.4050, L3100.2300 ####[facility] [address] [place], [address] Neutrophils/100 WBC (Bld) 48.2 % Normal 47-70 [facility] Comment on above: Performed By: #### L 100.0100, L3100.5040, L3100.5030, L500.4050, L3100.2300 ####[facility] [address] [place], [address] Nucleated RBC (Bld) [#/Vol] 0 10*3/uL Normal 0-5 [facility] Comment on above: Performed By: #### L 100.0100, L3100.5040, L3100.5030, L500.4050, L3100.2300 ####[facility] [address] [place], [address] Platelet mean volume (Bld) [Entitic vol] 10.2 fL Normal 6.2-12.0 [facility] Comment on above: Performed By: #### L 100.0100, L3100.5040, L3100.5030, L500.4050, L3100.2300 ####[facility] [address] [place], [address] Platelets (Bld) [#/Vol] 158 10*3/uL Normal 150-450 [facility] Comment on above: Performed By: #### L 100.0100, L3100.5040, L3100.5030, L500.4050, L3100.2300 ####[facility] [address] [place], [address] RBC (Bld) [#/Vol] 3.46 10*6/uL Low 4.2-5.4 [facility] Comment on above: Performed By: #### L 100.0100, L3100.5040, L3100.5030, L500.4050, L3100.2300 ####[facility] [address] [place], [address] RDW SD 51.9 fl High 35.1-43.9 [facility] Comment on above: Performed By: #### L 100.0100, L3100.5040, L3100.5030, L500.4050, L3100.2300 ####[facility] [address] [place], [address] WBC (Bld) [#/Vol] 3.8 10*3/uL Low 4.4-11.[address] [facility] Comment on above: Performed By: #### L 100.0100, L3100.5040, L3100.5030, L500.4050, L3100.2300 ####[facility] [address] [place], [address] Comprehensive Metabolic Prof [facility] 12-20-2024 Albumin [Mass/Vol] 3.7 g/dL Normal 3.4-4.[address] [facility] Comment on above: Performed By: #### L 100.0100, L3100.5040, L3100.5030, L500.4050, L3100.2300 ####[facility] [address] [place], [address] Albumin/Globulin [Mass ratio] 1.3 {ratio} Normal 0.9-2.4 [facility] Comment on above: Performed By: #### L 100.0100, L3100.5040, L3100.5030, L500.4050, L3100.2300 ####[facility] [address] [place], [address] ALK PHOS 154 U/L High 35-104 [facility] Comment on above: Performed By: #### L 100.0100, L3100.5040, L3100.5030, L500.4050, L3100.2300 ####[facility] [address] [place], [address] ALT [Catalytic activity/Vol] 37 U/L High <=34 [facility] Comment on above: Performed By: #### L 100.0100, L3100.5040, L3100.5030, L500.4050, L3100.2300 ####[facility] [address] [place], [address] AST [Catalytic activity/Vol] 50 U/L High <=31 [facility] Comment on above: Performed By: #### L 100.0100, L3100.5040, L3100.5030, L500.4050, L3100.2300 ####[facility] [address] [place], [address] Bilirubin [Mass/Vol] 0.35 mg/dL Normal 0.00-1.30 [facility] Comment on above: Performed By: #### L 100.0100, L3100.5040, L3100.5030, L500.4050, L3100.2300 ####[facility] [address] [place], [address] BUN/CRE 16.1 RATIO Normal 10-20 [facility] Comment on above: Performed By: #### L 100.0100, L3100.5040, L3100.5030, L500.4050, L3100.2300 ####[facility] [address] [place], [address] Calcium [Mass/Vol] 9.7 mg/dL Normal 7.6-11.[address] [facility] Comment on above: Performed By: #### L 100.0100, L3100.5040, L3100.5030, L500.4050, L3100.2300 ####[facility] [address] [place], [address] Chloride [Moles/Vol] 101 mmol/L Normal 98-108 [facility] Comment on above: Performed By: #### L 100.0100, L3100.5040, L3100.5030, L500.4050, L3100.2300 ####[facility] [address] [place], [address] CO2 [Moles/Vol] 26.8 mmol/L Normal 21.0-32.0 [facility] Comment on above: Performed By: #### L 100.0100, L3100.5040, L3100.5030, L500.4050, L3100.2300 ####[facility] [address] [place], [address] Creatinine [Mass/Vol] 1.37 mg/dL High 0.70-1.20 [facility] Comment on above: Performed By: #### L 100.0100, L3100.5040, L3100.5030, L500.4050, L3100.2300 ####[facility] [address] [place], [address] ECRCL 45.87 ml/min Low 50-250 [facility] Comment on above: Performed By: #### L 100.0100, L3100.5040, L3100.5030, L500.4050, L3100.2300 ####[facility] [address] [place], [address] GAP 13 Normal 5-15 [facility] Comment on above: Performed By: #### L 100.0100, L3100.5040, L3100.5030, L500.4050, L3100.2300 ####[facility] [address] [place], [address] GFR/1.73 sq M.predicted among non-blacks MDRD (S/P/Bld) [Vol rate/Area] 41 mL/min/{1.73_m2} Low >60 [facility] Comment on above: Result Comment: mL/m in/1.73m2 CKD-EPI Creatinine Equation (2020) Performed By: #### L 100.0100, L3100.5040, L3100.5030, L500.4050, L3100.2300 ####[facility] [address] [place], [address] Globulin (S) [Mass/Vol] 2.8 g/dL Normal 2.2-4.2 [facility] Comment on above: Performed By: #### L 100.0100, L3100.5040, L3100.5030, L500.4050, L3100.2300 ####[facility] [address] [place], [address] Glucose [Mass/Vol] 188 mg/dL High 70-[address] [facility] Comment on above: Performed By: #### L 100.0100, L3100.5040, L3100.5030, L500.4050, L3100.2300 ####[facility] [address] [place], [address] Potassium [Moles/Vol] 3.8 mmol/L Normal 3.3-5.1 [facility] Comment on above: Performed By: #### L 100.0100, L3100.5040, L3100.5030, L500.4050, L3100.2300 ####[facility] [address] [place], [address] Sodium [Moles/Vol] 141 mmol/L Normal 133-[address] [facility] Comment on above: Performed By: #### L 100.0100, L3100.5040, L3100.5030, L500.4050, L3100.2300 ####[facility] [address] [place], [address] T PROT 6.5 g/dL Normal 5.9-8.4 [facility] Comment on above: Performed By: #### L 100.0100, L3100.5040, L3100.5030, L500.4050, L3100.2300 ####[facility] [address] [place], [address] Urea nitrogen [Mass/Vol] 22 mg/dL High 4-19 [facility] Comment on above: Performed By: #### L 100.0100, L3100.5040, L3100.5030, L500.4050, L3100.2300 ####[facility] [address] [place], [address] Oncology Visit Reporton 12-11 Oncology Visit Report [facility] Serum or plasma carcinoembry onic antigen measurement (mass/volume)Ordered By: Chelsea Anguiano on 12-20-2024 Carcinoembryonic Ag [Mass/Vol] 17.3 ng/mL High 0.0-4.7 [facility] Comment on above: Nonsmokers <3.9 Smok ers <5.6[employer] Electrochemiluminescence Immunoassay(ECLIA)Values obtained with different assay methods or kitscannot be used interchangeably. Results cannot beinterpreted as absolute evidence of the presence orabsence of malignant disease. CA 15-3on 11-24-2024 CA 15-3 30.6 U/mL Abnormal 0.0-25.0 [facility] Comment on above: Result Comment: [employer] Electrochemiluminescence Immunoassay(ECLIA)Values obtained with different assay methods or kits cannotbe used interchangeably. Results cannot be interpreted asabsolute evidence of the presence or absence of malignantdisease.Performed at: [address] [id number] Director: Reese Willingham PhD, Phone: [phone] Performed By: #### L 3100.5040, L3100.5030, L3100.2300, L100.0100, L500.4050 ####[facility] [address] [place], [address] CA 27.29on 11-24-2024 CA 27.29 29.7 U/mL Normal 0.0-38.6 [facility] Comment on above: Result Comment: [facility] [employer] Immunochemiluminometric Methodology (ICMA)Values obtained with different assay methods or kits cannotbe used interchangeably. Results cannot be interpreted asabsolute evidence of the presence or absence of malignantdisease. Performed By: #### L 3100.5040, L3100.5030, L3100.2300, L100.0100, L500.4050 ####[facility] [address], [address] Carcinoembryonic Antigenon 0 11-24-2024 CEA 12.3 ng/mL High 0.0-4.7 [facility] Comment on above: Result Comment: Nons mokers <3.9 Smokers <5.6[employer] Electrochemiluminescence Immunoassay(ECLIA)Values obtained with different assay methods or kitscannot be used interchangeably. Results cannot beinterpreted as absolute evidence of the presence orabsence of malignant disease. Performed By: #### L 3100.5040, L3100.5030, L3100.2300, L100.0100, L500.4050 ####[facility] [address], [address] Absolute neutrophil countOrd ered By: Sultana Finn on 11-22-2024 Neutrophils (Bld) [#/Vol] 1.0 10*3/uL Low 2.0-7.7 [facility] Anion gap in Serum or Plasma Ordered By: Sultana Finn on 11-22-2024 Anion gap [Moles/Vol] 12 [facility]/L [facility] Automated blood erythrocyte countOrdered By: Sultana Finn on 11-22-2024 RBC (Bld) [#/Vol] 3.35 10*6/uL Low 4.2-5.4 [facility] Comment on above: Performed By: #### L 3100.5040, L3100.5030, L3100.2300, L100.0100, L500.4050 ####[facility] [address] [place], [place], [id number] Automated blood hematocrit ( percentage)Ordered By: Sultana EspañaAakash on 11-22-2024 Hematocrit (Bld) [Volume fraction] 34.3 % Low 37-47 [facility] Comment on above: Performed By: #### L 3100.5040, L3100.5030, L3100.2300, L100.0100, L500.4050 ####[facility] [address] [place], [place], [address] Automated lymphocyte count a s percentage of total leukocytesOrdered By: Sultanajody EspañaAakash on 11-22-2024 Lymphocytes/100 WBC (Bld) 32.7 % Normal 19-41 [facility] Comment on above: Performed By: #### L 3100.5040, L3100.5030, L3100.2300, L100.0100, L500.4050 ####[facility] [address] [place], [place], [address] BUN/creatinine ratioOrdered By: Sultana Aakash on 11-22-2024 Urea nitrogen/Creatinine [Mass ratio] 17.3 mg/mg 10-20 [facility] Basophil percentageOrdered B y: Sultana Aakash on 11-22-2024 Basophils/100 WBC (Bld) 1.0 % Normal 0-1 [facility] Comment on above: Performed By: #### L 3100.5040, L3100.5030, L3100.2300, L100.0100, L500.4050 ####[facility] [address] [place], [address] Bilirubin, totalOrdered By: Sultana Aakash on 11-22-2024 Bilirubin [Mass/Vol] 0.45 mg/dL Normal 0.00-1.30 [facility] Comment on above: Performed By: #### L 3100.5040, L3100.5030, L3100.2300, L100.0100, L500.4050 ####[facility] [address] [place], [address] CBC W/Diff, Automatedon - Absolute Lymph 0.66 X10 3/uL Low 0.83-4.51 [facility] Comment on above: Performed By: #### L 3100.5040, L3100.5030, L3100.2300, L100.0100, L500.4050 ####[facility] [address] [place], [address] Absolute Neut 1.0 X10 3/uL Low 2.0-7.7 [facility] Comment on above: Performed By: #### L 3100.5040, L3100.5030, L3100.2300, L100.0100, L500.4050 ####[facility] [address] [place], [address] IG% 0.000 Normal 0.0-0.9 [facility] Comment on above: Result Comment: IG% - Immature Granulocytes (promyelocytes, myelocytes andmetamyelocytes) > 1% indicates that a LEFT SHIFT is Present. Performed By: #### L 3100.5040, L3100.5030, L3100.2300, L100.0100, L500.4050 ####[facility] [address] [place], [address] Nucleated RBC (Bld) [#/Vol] 0 10*3/uL Normal 0-5 [facility] Comment on above: Performed By: #### L 3100.5040, L3100.5030, L3100.2300, L100.0100, L500.4050 ####[facility] [address] [place], [address] RDW SD 54.3 fl High 35.1-43.9 [facility] Comment on above: Performed By: #### L 3100.5040, L3100.5030, L3100.2300, L100.0100, L500.4050 ####[facility] [address] [place], [address] Carbon dioxide, total [Moles /volume] in Central venous bloodOrdered By: Sultana Finn on 11-22-2024 CO2 [Moles/Vol] 26.6 mmol/L Normal 21.0-32.0 [facility] Comment on above: Performed By: #### L 3100.5040, L3100.5030, L3100.2300, L100.0100, L500.4050 ####[facility] [address] [place], [address] Chloride assayOrdered By: Saurabh Finn on 11-22-2024 Chloride [Moles/Vol] 100 mmol/L Normal 98-108 [facility] Comment on above: Performed By: #### L 3100.5040, L3100.5030, L3100.2300, L100.0100, L500.4050 ####[facility] [address] [place], [address] Comprehensive Metabolic Prof ilon 11-22-2024 ALK PHOS 114 U/L High 35-104 [facility] Comment on above: Performed By: #### L 3100.5040, L3100.5030, L3100.2300, L100.0100, L500.4050 ####[facility] [address] [place], [address] BUN/CRE 17.3 RATIO Normal 10-20 [facility] Comment on above: Performed By: #### L 3100.5040, L3100.5030, L3100.2300, L100.0100, L500.4050 ####[facility] [address] [place], [address] ECRCL 53.71 ml/min Normal 50-250 [facility] Comment on above: Performed By: #### L 3100.5040, L3100.5030, L3100.2300, L100.0100, L500.4050 ####[facility] [address] [place], [address] GAP 12 Normal 5-15 [facility] Comment on above: Performed By: #### L 3100.5040, L3100.5030, L3100.2300, L100.0100, L500.4050 ####[facility] [address] [place], [address] GFR/1.73 sq M.predicted among non-blacks MDRD (S/P/Bld) [Vol rate/Area] 50 mL/min/{1.73_m2} Low >60 [facility] Comment on above: Result Comment: mL/m in/1.73m2 CKD-EPI Creatinine Equation (2020) Performed By: #### L 3100.5040, L3100.5030, L3100.2300, L100.0100, L500.4050 ####[facility] [address] [place], [address] T PROT 6.5 g/dL Normal 5.9-8.4 [facility] Comment on above: Performed By: #### L 3100.5040, L3100.5030, L3100.2300, L100.0100, L500.4050 ####[facility] [address] [place], [address] Comprehensive Metabolic Prof ilOrdered By: Sultana Finn on 11-22-2024 AST [Catalytic activity/Vol] 56 U/L High <=31 [facility] Comment on above: Performed By: #### L 3100.5040, L3100.5030, L3100.2300, L100.0100, L500.4050 ####[facility] [address] [place], [place], [id number] Eosinophil percentageOrdered By: Sultana Finn on 11-22-2024 Eosinophils/100 WBC (Bld) 2.5 % Normal 0-5 [facility] Comment on above: Performed By: #### L 3100.5040, L3100.5030, L3100.2300, L100.0100, L500.4050 ####[facility] [address] [place], [place], [phone] Erythrocyte distribution wid th ratioOrdered By: Sultana Finn on 11-22-2024 Erythrocyte distribution width (RBC) [Ratio] 14.6 % Normal 11.6-14.6 [facility] Comment on above: Performed By: #### L 3100.5040, L3100.5030, L3100.2300, L100.0100, L500.4050 ####[facility] [address] [place], [place], [id number] Erythrocyte distribution wid th standard deviationOrdered By: Sultana Finn on 11-22-2024 Erythrocyte distribution width (RBC) [Entitic vol] 54.3 fL High 35.1-43.9 [facility] Estimation of creatinine masoud aranceOrdered By: Sultana Finn on 11-22-2024 Estimated Creatinine Clearance Calc 53.71 ml/min 50-250 [facility] GFR/1.73 sq M.predicted aggie g non-blacks MDRD (S/P/Bld) [Vol rate/Area]Ordered By: Sultana Finn on 11-22-2024 Estimated GFR (MDRD) Non-Af Amer 50 Low >60 [facility] Comment on above: mL/min/1.73m2 CKD-EP I Creatinine Equation (2020) Hemoglobin measurementOrdere d By: Sultana Finn on 11-22-2024 Hemoglobin (Bld) [Mass/Vol] 11.9 g/dL Low 12.0-15.0 [facility] Comment on above: Performed By: #### L 3100.5040, L3100.5030, L3100.2300, L100.0100, L500.4050 ####[facility] [address] [place], [address] Immature granulocytes/100 WB C Auto (Bld)Ordered By: Sultana Finn on 11-22-2024 Immature granulocytes/100 WBC (Bld) 0.000 % 0.0-0.9 [facility] Comment on above: IG% - Immature Granu locytes (promyelocytes, myelocytes and metamyelocytes) > 1% indicates that a LEFT SHIFT is Present. Lymphocytes Auto (Unsp spec) [#/Vol]Ordered By: Sultana Finn on 11-22-2024 Lymphocytes (Bld) [#/Vol] 0.66 10*3/uL Low 0.83-4.51 [facility] MCV (mean corpuscular volume ) determinationOrdered By: Sultana Finn on 11-22-2024 MCV (RBC) [Entitic vol] 102.4 fL High 81-99 [facility] Comment on above: Performed By: #### L 3100.5040, L3100.5030, L3100.2300, L100.0100, L500.4050 ####[facility] [address] [place], [address] Mean corpuscular hemoglobin (MCH) determinationOrdered By: Sultana Finn on 11-22-2024 MCH (RBC) [Entitic mass] 35.5 pg High 27.0-32.0 [facility] Comment on above: Performed By: #### L 3100.5040, L3100.5030, L3100.2300, L100.0100, L500.4050 ####[facility] [address] [place], [address] Mean corpuscular hemoglobin concentration (MCHC) determinationOrdered By: Sultana Finn on 11-22-2024 MCHC (RBC) [Mass/Vol] 34.7 g/dL Normal 32-36 [facility] Comment on above: Performed By: #### L 3100.5040, L3100.5030, L3100.2300, L100.0100, L500.4050 ####[facility] [address] [place], [place], [address] Mean platelet volume determi nationOrdered By: Sultana EspañaAakash on 11-22-2024 Platelet mean volume (Bld) [Entitic vol] 9.6 fL Normal 6.2-12.0 [facility] Comment on above: Performed By: #### L 3100.5040, L3100.5030, L3100.2300, L100.0100, L500.4050 ####[facility] [address] [place], [place], [address] Monocyte percentageOrdered B y: Sultanajody EspañaAakash on 11-22-2024 Monocytes/100 WBC (Bld) 13.4 % High 0-10 [facility] Comment on above: Performed By: #### L 3100.5040, L3100.5030, L3100.2300, L100.0100, L500.4050 ####[facility] [address] [place], [place], [address] Neutrophil percentageOrdered By: Sultana EspañaAakash on 11-22-2024 Neutrophils/100 WBC (Bld) 50.4 % Normal 47-70 [facility] Comment on above: Performed By: #### L 3100.5040, L3100.5030, L3100.2300, L100.0100, L500.4050 ####[facility] [address] [place], [place], [address] Nucleated red blood cell per centageOrdered By: Sultana EspañaAakash on 11-22-2024 Nucleated RBC/100 WBC (Bld) [Ratio] 0 % 0-5 [facility] Oncology Visit Reporton 11-10 Oncology Visit Report [facility] Platelet countOrdered By: Ty ra Finn on 11-22-2024 Platelets (Bld) [#/Vol] 138 10*3/uL Low 150-450 [facility] Comment on above: Performed By: #### L 3100.5040, L3100.5030, L3100.2300, L100.0100, L500.4050 ####[facility] [address] [place], [place], [address] Potassium measurement (mass/ volume)Ordered By: Sultana Finn on 11-22-2024 Potassium [Moles/Vol] 4.2 mmol/L Normal 3.3-5.1 [facility] Comment on above: Performed By: #### L 3100.5040, L3100.5030, L3100.2300, L100.0100, L500.4050 ####[facility] [address] [place], [place], [address] Serum creatinine measurement (mass/volume)Ordered By: Sultana Finn on 11-22-2024 Creatinine [Mass/Vol] 1.17 mg/dL Normal 0.70-1.20 [facility] Comment on above: Performed By: #### L 3100.5040, L3100.5030, L3100.2300, L100.0100, L500.4050 ####[facility] [address] [place], [place], [address] Serum globulin measurementOr dered By: Sultana Finn on 11-22-2024 Globulin (S) [Mass/Vol] 2.5 g/dL Normal 2.2-4.2 [facility] Comment on above: Performed By: #### L 3100.5040, L3100.5030, L3100.2300, L100.0100, L500.4050 ####[facility] [address] [place], [place], [address] Serum glucose measurement (m ass/volume)Ordered By: Sultana Finn on 11-22-2024 Glucose [Mass/Vol] 185 mg/dL High 70-[address] [facility] Comment on above: Performed By: #### L 3100.5040, L3100.5030, L3100.2300, L100.0100, L500.4050 ####[facility] [address] [place], [address] Serum or plasma alanine skinner otransferase (ALT) measurementOrdered By: Sultana Finn on 11-22-2024 ALT [Catalytic activity/Vol] 37 U/L High <=34 [facility] Comment on above: Performed By: #### L 3100.5040, L3100.5030, L3100.2300, L100.0100, L500.4050 ####[facility] [address] [place], [place], [id number] Serum or plasma albumin amanda urement (mass/volume)Ordered By: Sultana Finn on 11-22-2024 Albumin [Mass/Vol] 3.9 g/dL Normal 3.4-4.[address] [facility] Comment on above: Performed By: #### L 3100.5040, L3100.5030, L3100.2300, L100.0100, L500.4050 ####[facility] [address] [place], [address] Serum or plasma albumin/glob ulin mass ratioOrdered By: Sultana Finn on 11-22-2024 Albumin/Globulin [Mass ratio] 1.6 {ratio} Normal 0.9-2.4 [facility] Comment on above: Performed By: #### L 3100.5040, L3100.5030, L3100.2300, L100.0100, L500.4050 ####[facility] [address] [place], [address] Serum or plasma alkaline domenico sphatase measurementOrdered By: Sultana Finn on 11-22-2024 ALP [Catalytic activity/Vol] 114 U/L High 35-104 [facility] Serum or plasma calcium amanda urement (mass/volume)Ordered By: Sultana Finn on 11-22-2024 Calcium [Mass/Vol] 9.6 mg/dL Normal 7.6-11.[address] [facility] Comment on above: Performed By: #### L 3100.5040, L3100.5030, L3100.2300, L100.0100, L500.4050 ####[facility] [address] [place], [address] Serum or plasma urea nitroge n measurement (mass/volume)Ordered By: Sultana Finn on 11-22-2024 Urea nitrogen [Mass/Vol] 20 mg/dL High 4-19 [facility] Comment on above: Performed By: #### L 3100.5040, L3100.5030, L3100.2300, L100.0100, L500.4050 ####[facility] [address] [place], [address] Sodium levelOrdered By: Sultana Finn on 11-22-2024 Sodium [Moles/Vol] 139 mmol/L Normal 133-[address] [facility] Comment on above: Performed By: #### L 3100.5040, L3100.5030, L3100.2300, L100.0100, L500.4050 ####[facility] [address] [place], [address] Total proteinOrdered By: Chaka Finn on 11-22-2024 Protein [Mass/Vol] 6.5 g/dL 5.9-8.[address] [facility] White blood cell (WBC) count Ordered By: Sultana Finn on 11-22-2024 WBC (Bld) [#/Vol] 2.0 10*3/uL Low 4.4-11.[address] [facility] Comment on above: Performed By: #### L 3100.5040, L3100.5030, L3100.2300, L100.0100, L500.4050 ####[facility] [address] [place], [address] Anion gap in Serum or Plasma Ordered By: Rae Aguirre on 11-13-2024 Anion gap [Moles/Vol] 15 mmol/L 5-15 [facility] BUN/creatinine ratioOrdered By: Rae Aguirre on 11-13-2024 Urea nitrogen/Creatinine [Mass ratio] 22.4 mg/mg High 10-20 [facility] Bilirubin, totalOrdered By: Rae Aguirre on 11-13-2024 Bilirubin [Mass/Vol] 0.36 mg/dL 0.00-1.30 [facility] Bone Scan Whole Bodyon 11-13 Bone Scan Whole Body Normal [facility] Carbon dioxide, total [Moles /volume] in Central venous bloodOrdered By: Rae Aguirre on 11-13-2024 CO2 [Moles/Vol] 23.2 mmol/L 21.0-32.0 [facility] Chloride assayOrdered By: Tahira Aguirre on 11-13-2024 Chloride [Moles/Vol] 100 mmol/L 98-108 [facility] Comprehensive Metabolic Prof ilon 11-13-2024 Albumin [Mass/Vol] 4.1 g/dL Normal 3.4-4.[address] [facility] Comment on above: Order Comment: Order Date: 11/09/24Order Info: 0786-1 - CMP Performed By: #### L 500.4050, L503.6005 ####[facility] [address] [place], [address] Albumin/Globulin [Mass ratio] 1.5 {ratio} Normal 0.9-2.4 [facility] Comment on above: Order Comment: Order Date: 11/09/24Order Info: 0786-1 - CMP Performed By: #### L 500.4050, L503.6005 ####[facility] [address] [place], [address] ALK PHOS 157 U/L High 35-104 [facility] Comment on above: Order Comment: Order Date: 11/09/24Order Info: 0786-1 - CMP Performed By: #### L 500.4050, L503.6005 ####[facility] [address] [place], [address] ALT [Catalytic activity/Vol] 51 U/L High <=34 [facility] Comment on above: Order Comment: Order Date: 11/09/24Order Info: 0786-1 - CMP Performed By: #### L 500.4050, L503.6005 ####[facility] [address] [place], [address] AST [Catalytic activity/Vol] 58 U/L High <=31 [facility] Comment on above: Order Comment: Order Date: 11/09/24Order Info: 0786-1 - CMP Performed By: #### L 500.4050, L503.6005 ####[facility] [address] [place], [address] Bilirubin [Mass/Vol] 0.36 mg/dL Normal 0.00-1.30 [facility] Comment on above: Order Comment: Order Date: 11/09/24Order Info: 0786-1 - CMP Performed By: #### L 500.4050, L503.6005 ####[facility] [address] [place], [address] BUN/CRE 22.4 RATIO High 10-20 [facility] Comment on above: Order Comment: Order Date: 11/09/24Order Info: 0786-1 - CMP Performed By: #### L 500.4050, L503.6005 ####[facility] [address] [place], [address] Calcium [Mass/Vol] 9.9 mg/dL Normal 7.6-11.[address] [facility] Comment on above: Order Comment: Order Date: 11/09/24Order Info: 0786-1 - CMP Performed By: #### L 500.4050, L503.6005 ####[facility] [address] [place], [address] Chloride [Moles/Vol] 100 mmol/L Normal 98-108 [facility] Comment on above: Order Comment: Order Date: 11/09/24Order Info: 0786-1 - CMP Performed By: #### L 500.4050, L503.6005 ####[facility] [address] [place], [address] CO2 [Moles/Vol] 23.2 mmol/L Normal 21.0-32.0 [facility] Comment on above: Order Comment: Order Date: 11/09/24Order Info: 0786-1 - CMP Performed By: #### L 500.4050, L503.6005 ####[facility] [address] [place], [address] Creatinine [Mass/Vol] 1.26 mg/dL High 0.70-1.20 [facility] Comment on above: Order Comment: Order Date: 11/09/24Order Info: 0786-1 - CMP Performed By: #### L 500.4050, L503.6005 ####[facility] [address] [place], [address] GAP 15 Normal 5-15 [facility] Comment on above: Order Comment: Order Date: 11/09/24Order Info: 0786-1 - CMP Performed By: #### L 500.4050, L503.6005 ####[facility] [address] [place], [address] GFR/1.73 sq M.predicted among non-blacks MDRD (S/P/Bld) [Vol rate/Area] 46 mL/min/{1.73_m2} Low >60 [facility] Comment on above: Order Comment: Order Date: 11/09/24Order Info: 0786-1 - CMP Result Comment: mL/m in/1.73m2 CKD-EPI Creatinine Equation (2020) Performed By: #### L 500.4050, L503.6005 ####[facility] [address] [place], [address] Globulin (S) [Mass/Vol] 2.8 g/dL Normal 2.2-4.2 [facility] Comment on above: Order Comment: Order Date: 11/09/24Order Info: 0786-1 - CMP Performed By: #### L 500.4050, L503.6005 ####[facility] [address] [place], [address] Glucose [Mass/Vol] 198 mg/dL High 70-[address] [facility] Comment on above: Order Comment: Order Date: 11/09/24Order Info: 0786-1 - CMP Performed By: #### L 500.4050, L503.6005 ####[facility] [address] [place], [address] Potassium [Moles/Vol] 4.7 mmol/L Normal 3.3-5.1 [facility] Comment on above: Order Comment: Order Date: 11/09/24Order Info: 0786-1 - CMP Performed By: #### L 500.4050, L503.6005 ####[facility] [address] [place], [address] Sodium [Moles/Vol] 138 mmol/L Normal 133-[address] [facility] Comment on above: Order Comment: Order Date: 11/09/24Order Info: 0786-1 - CMP Performed By: #### L 500.4050, L503.6005 ####[facility] [address] [place], [address] T PROT 6.8 g/dL Normal 5.9-8.4 [facility] Comment on above: Order Comment: Order Date: 11/09/24Order Info: 0786-1 - CMP Performed By: #### L 500.4050, L503.6005 ####[facility] [address] [place], [address] Urea nitrogen [Mass/Vol] 28 mg/dL High 4-19 [facility] Comment on above: Order Comment: Order Date: 11/09/24Order Info: 0786-1 - CMP Performed By: #### L 500.4050, L503.6005 ####[facility] [address] [place], [place], [address] GFR/1.73 sq M.predicted aggie g non-blacks MDRD (S/P/Bld) [Vol rate/Area]Ordered By: Rae Aguirre on 11-13-2024 Estimated GFR (MDRD) Non-Af Amer 46 Low >60 [facility] Comment on above: mL/min/1.73m2 CKD-EP I Creatinine Equation (2020) Glomerular filtration rate ( GFR) estimation/1.73 sq m using serum, plasma, or whole bOrdered By: Rae Aguirre on 11-13-2024 GFR/1.73 sq M.predicted among non-blacks MDRD (S/P/Bld) [Vol rate/Area] 46 mL/min/{1.73_m2} Low >60 [facility] Comment on above: mL/min/1.73m2 CKD-EP I Creatinine Equation (2020) Laboratory - Chemistry and C hemistry - challengeOrdered By: Rae Aguirre on 11-13-2024 AST [Catalytic activity/Vol] 58 U/L High <32 [facility] Lactic Acidon 11-13-2024 Lactate [Moles/Vol] 2.2 mmol/L Invalid Interpretation Code 0.0-2.0 [facility] Comment on above: Order Comment: Order Date: 11/09/24Order Info: [id number] - LAY Result Comment: Crit ical Result(s) Called at 11/13/2024 09:58 by Luciano Vuong Madrical results read back by same. Performed By: #### L 500.4050, L503.6005 ####[facility] [address] [place] [place], [place], [id number] Lactic acid measurementOrder ed By: Rae Aguirre on 11-13-2024 Lactate [Moles/Vol] 2.2 mmol/L High 0.0-2.0 [facility] Comment on above: Critical Result(s) C alled at 11/13/2024 09:58 by Luciano Guzmán to Carolann Long results read back by same. Potassium (Unsp spec) [Mass/ Vol]Ordered By: Rae Aguirre on 11-13-2024 Potassium [Moles/Vol] 4.7 mmol/L 3.3-5.1 [facility] Potassium measurement (mass/ volume)Ordered By: Rae Aguirre on 11-13-2024 Potassium (Unsp spec) [Mass/Vol] 4.7 mmol/L 3.3-5.1 [facility] Serum creatinine measurement (mass/volume)Ordered By: Rae Aguirre on 11-13-2024 Creatinine [Mass/Vol] 1.26 mg/dL High 0.70-1.20 [facility] Serum globulin measurementOr dered By: Rae Aguirre on 11-13-2024 Globulin (S) [Mass/Vol] 2.8 g/dL 2.2-4.2 [facility] Serum glucose measurement (m ass/volume)Ordered By: Rae Aguirre on 11-13-2024 Glucose [Mass/Vol] 198 mg/dL High 70-[address] [facility] Serum or plasma alanine skinner otransferase (ALT) measurementOrdered By: Rae Aguirre on 11-13-2024 ALT [Catalytic activity/Vol] 51 U/L High <35 [facility] Serum or plasma albumin amanda urement (mass/volume)Ordered By: Rae Aguirre on 11-13-2024 Albumin [Mass/Vol] 4.1 g/dL 3.4-4.[address] [facility] Serum or plasma albumin/glob ulin mass ratioOrdered By: Rae Aguirre on 11-13-2024 Albumin/Globulin [Mass ratio] 1.5 {ratio} 0.9-2.4 [facility] Serum or plasma alkaline domenico sphatase measurementOrdered By: Rae Aguirre on 11-13-2024 ALP [Catalytic activity/Vol] 157 U/L High 35-104 [facility] Serum or plasma calcium amanda urement (mass/volume)Ordered By: Rae Aguirre on 11-13-2024 Calcium [Mass/Vol] 9.9 mg/dL 7.6-11.[address] [facility] Serum or plasma urea nitroge n measurement (mass/volume)Ordered By: Rae Aguirre on 11-13-2024 Urea nitrogen [Mass/Vol] 28 mg/dL High 4-19 [facility] Sodium levelOrdered By: Luis Aguirre on 11-13-2024 Sodium [Moles/Vol] 138 mmol/L 133-[address] [facility] Total proteinOrdered By: Saima Aguirre on 11-13-2024 Protein [Mass/Vol] 6.8 g/dL 5.9-8.[address] [facility] Culture, Blood (WB)on 2024 CUB Blood cultures x2, f rom two different sites No growth in 5 days. Normal [facility] Comment on above: Performed By: #### M 200.1000 ####[facility] [address] [place], [place], [id number] Calculated very low density lipoprotein (VLDL) cholesterol measurementOrdered By: Rae Aguirre on 11-09-2024 Calculated very low density lipoprotein (VLDL) cholesterol measurement 42 mg/dL High 5-40 [facility] VLDL Cholesterol 42 mg/dL High 5-40 [facility] LDL calc ser/plasOrdered By: Rae Aguirre on 11-09-2024 Cholesterol in LDL [Mass/Vol] 54 mg/dL [facility] Comment on above: Qvuxnavwty=774-263 m g/dL & Higher Ncru=562 mg/dL or greater LDL Cholesterol, Calculated 54 mg/dL [facility] Comment on above: Mxyyfytvxx=199-542 m g/dL & Higher Njde=803 mg/dL or greater Lipid Profileon 11-09-2024 CHOL:HDL 2.66 Normal [facility] Comment on above: Order Comment: Order Date: 11/01/24Order Info: [id number] - LIPID Performed By: #### L 500.4100 ####[facility] [address] [place], [place], [address] Cholesterol [Mass/Vol] 155 mg/dL Normal <=200 [facility] Comment on above: Order Comment: Order Date: 11/01/24Order Info: [id number] - LIPID Result Comment: Chol esterol level, Desirable <200 mg/dLBorderline high cholesterol 200-239 mg/dLHigh cholesterol >=240 mg/dLRecommendations of the NCEP Adult Treatment Panel for thefollowing risk-cutoff thresholds for the [place] Americanpulation. Performed By: #### L 500.4100 ####[facility] [address] [place], [address] Cholesterol in HDL [Mass/Vol] 58 mg/dL Normal [facility] Comment on above: Order Comment: Order Date: 11/01/24Order Info: [id number] - LIPID Result Comment: Marilu onal Cholesterol Education Program (NCEP) guidelines:<40 mg/dL: Low HDL-cholesterol (major risk factor for CHD)>= 60 mg/dL: High HDL-cholesterol (negative risk factor forCHD)HDL-cholesterol is affected by a number of factors, e.g.smoking, exercise, hormones, sex and age. Performed By: #### L 500.4100 ####[facility] [address] [place], [address] Cholesterol in LDL [Mass/Vol] 54 mg/dL Normal [facility] Comment on above: Order Comment: Order Date: 11/01/24Order Info: [id number] - LIPID Result Comment: Bord ojecqu=604-264 mg/dL Higher Mshp=517 mg/dL or greater Performed By: #### L 500.4100 ####[facility] [address] [place], [address] Cholesterol in VLDL [Mass/Vol] 42 mg/dL High 5-40 [facility] Comment on above: Order Comment: Order Date: 11/01/24Order Info: [id number] - LIPID Performed By: #### L 500.4100 ####[facility] [address] [place], [address] Triglyceride [Mass/Vol] 212 mg/dL High [facility] Comment on above: Order Comment: Order Date: 11/01/24Order Info: [id number] - LIPID Result Comment: The drugs N-Acetylcysteine and Metamizole may falselydepress this assay.Normal range: <150 mg/dLBorderline High: 150-199 mg/dLHigh: 200-499 mg/dLVery High: >500 mg/dL Performed By: #### L 500.4100 ####[facility] [address] [place], [address] Screening total cholesterol/ high density lipoprotein (HDL) cholesterol ratioOrdered By: Rae Aguirre on 11-09-2024 Cholesterol.total/Chol esterol in HDL [Mass ratio] 2.66 {ratio} [facility] Serum or plasma cholesterol in HDL measurement (mass/volume)Ordered By: Rae Aguirre on 11-09-2024 Cholesterol in HDL [Mass/Vol] 58 mg/dL >40 [facility] Comment on above: National Cholesterol Education Program (NCEP) guidelines:<40 mg/dL: Low HDL-cholesterol (major risk factor for CHD)>= 60 mg/dL: High HDL-cholesterol (negative risk factor for CHD)HDL-cholesterol is affected by a number of factors, e.g. smoking, exercise, hormones, sex and age. Serum or plasma cholesterol measurement (mass/volume)Ordered By: Rae Aguirre on 11-09-2024 Cholesterol [Mass/Vol] 155 mg/dL <201 [facility] Comment on above: Cholesterol level, D esirable <200 mg/dLBorderline high cholesterol 200-239 mg/dLHigh cholesterol >=240 mg/dLRecommendations of the NCEP Adult Treatment Panel for the following risk-cutoff thresholds for the [place] population. Triglycerides measurementOrd ered By: Rae Aguirre on 11-09-2024 Triglyceride [Mass/Vol] 212 mg/dL High <199 [facility] Comment on above: The drugs N-Acetylcy steine and Metamizole may falsely depress this assay. Normal range: <150 mg/dLBorderline High: 150-199 mg/dLHigh: 200-499 mg/dLVery High: >500 mg/dL Urine Cultureon 11-07-2024 URC Below infection leve l. Mixed Gram Pos Gram Neg Org Alexis Count <1000 MIXC Mixed contaminants. Submit a new specimen if indicated. Normal [facility] Comment on above: Performed By: #### M 100.2200 ####[facility] [address] [place], [place], [id number] 12 Lead EKGon 11-05-2024 12 Lead EKG Normal [facility] Abdomen/Pelvis W IV Cont ONL Yon 11-05-2024 Abdomen/Pelvis W IV Cont ONLY Normal [facility] Absolute lymphocyte countOrd ered By: Trever Terry on 11-05-2024 Lymphocytes Auto (Unsp spec) [#/Vol] 0.95 10*3/uL 0.83-4.51 [facility] Absolute neutrophil countOrd ered By: Trever Terry on 11-05-2024 Neutrophils (Bld) [#/Vol] 1.6 10*3/uL Low 2.0-7.7 [facility] Albumin to globulin ratioOrd ered By: Trever Terry on 11-05-2024 Albumin/Globulin [Mass ratio] 0.9 {ratio} 0.9-2.4 [facility] Automated lymphocyte count a s percentage of total leukocytesOrdered By: Trever Terry on 11-05-2024 Lymphocytes/100 WBC Auto (Unsp spec) 32.1 % 19-41 [facility] BNP (brain natriuretic pepti de measurement)Ordered By: Trever Terry on 11-05-2024 Natriuretic peptide B (Bld) [Mass/Vol] 9.5 pg/mL 0-100 [facility] BNP,B-Type NATRIURETIC PEPTI Florencia 11-05-2024 Natriuretic peptide B (Bld) [Mass/Vol] 9.5 pg/mL Normal 0-100 [facility] Comment on above: Performed By: #### L 501.4020, L503.6005, L500.4050, L503.6620, L100.0100, L501.2450 ####[facility] [address], [address] Bacteria LM.HPF (Urine sed) [#/Area]Ordered By: Trever Terry on 11-05-2024 Urine Bacteria RARE /hpf None Seen [facility] Basophil percentageOrdered B y: Trever Terry on 11-05-2024 Basophils/100 WBC (Bld) 2.0 % High 0-1 [facility] Bilirubin Test strip Ql (U)O rdered By: Trever Terry on 11-05-2024 Bilirubin Ql (U) Negative Negative [facility] Bilirubin, totalOrdered By: Trever Terry on 11-05-2024 Bilirubin [Mass/Vol] 0.50 mg/dL 0.20-1.00 [facility] Comment on above: For patients on eltr ombopag therapy, use of Dimension [place] TBIL is not recommended. Blood cultureOrdered By: La Terry on 11-05-2024 Bacteria identified Cx Nom (Bld) No growth in 5 days. [facility] Blood urea nitrogen (BUN)/cr eatinine ratioOrdered By: Trever Terry on 11-05-2024 Urea nitrogen/Creatinine [Mass ratio] 15.6 mg/mg 10-20 [facility] Brain/Head without Contrasto n 11-05-2024 Brain/Head without Contrast Normal [facility] CBC W/Diff, Automatedon 10-14 Absolute Lymph 0.95 X10 3/uL Normal 0.83-4.51 [facility] Comment on above: Performed By: #### L 501.4020, L503.6005, L500.4050, L503.6620, L100.0100, L501.2450 ####[facility] [address] [place], [address] Absolute Neut 1.6 X10 3/uL Low 2.0-7.7 [facility] Comment on above: Performed By: #### L 501.4020, L503.6005, L500.4050, L503.6620, L100.0100, L501.2450 ####[facility] [address] [place], [address] Basophils/100 WBC (Bld) 2.0 % High 0-1 [facility] Comment on above: Performed By: #### L 501.4020, L503.6005, L500.4050, L503.6620, L100.0100, L501.2450 ####[facility] [address] [place], [address] Eosinophils/100 WBC (Bld) 2.4 % Normal 0-5 [facility] Comment on above: Performed By: #### L 501.4020, L503.6005, L500.4050, L503.6620, L100.0100, L501.2450 ####[facility] [address] [place], [address] Erythrocyte distribution width (RBC) [Ratio] 14.1 % Normal 11.6-14.6 [facility] Comment on above: Performed By: #### L 501.4020, L503.6005, L500.4050, L503.6620, L100.0100, L501.2450 ####[facility] [address] [place], [address] Hematocrit (Bld) [Volume fraction] 39.3 % Normal 37-47 [facility] Comment on above: Performed By: #### L 501.4020, L503.6005, L500.4050, L503.6620, L100.0100, L501.2450 ####[facility] [address] [place], [address] Hemoglobin (Bld) [Mass/Vol] 13.5 g/dL Normal 12.0-15.0 [facility] Comment on above: Performed By: #### L 501.4020, L503.6005, L500.4050, L503.6620, L100.0100, L501.2450 ####[facility] [address] [place], [address] IG% 0.300 Normal 0.0-0.9 [facility] Comment on above: Result Comment: IG% - Immature Granulocytes (promyelocytes, myelocytes andmetamyelocytes) > 1% indicates that a LEFT SHIFT is Present. Performed By: #### L 501.4020, L503.6005, L500.4050, L503.6620, L100.0100, L501.2450 ####[facility] [address] [place], [address] Lymphocytes/100 WBC (Bld) 32.1 % Normal 19-41 [facility] Comment on above: Performed By: #### L 501.4020, L503.6005, L500.4050, L503.6620, L100.0100, L501.2450 ####[facility] [address] [place], [address] MCH (RBC) [Entitic mass] 34.6 pg High 27.0-32.0 [facility] Comment on above: Performed By: #### L 501.4020, L503.6005, L500.4050, L503.6620, L100.0100, L501.2450 ####[facility] [address] [place], [address] MCHC (RBC) [Mass/Vol] 34.4 g/dL Normal 32-36 [facility] Comment on above: Performed By: #### L 501.4020, L503.6005, L500.4050, L503.6620, L100.0100, L501.2450 ####[facility] [address] [place], [address] MCV (RBC) [Entitic vol] 100.8 fL High 81-99 [facility] Comment on above: Performed By: #### L 501.4020, L503.6005, L500.4050, L503.6620, L100.0100, L501.2450 ####[facility] [address] [place], [address] Monocytes/100 WBC (Bld) 8.8 % Normal 0-10 [facility] Comment on above: Performed By: #### L 501.4020, L503.6005, L500.4050, L503.6620, L100.0100, L501.2450 ####[facility] [address] [place], [address] Neutrophils/100 WBC (Bld) 54.4 % Normal 47-70 [facility] Comment on above: Performed By: #### L 501.4020, L503.6005, L500.4050, L503.6620, L100.0100, L501.2450 ####[facility] [address] [place], [address] Nucleated RBC (Bld) [#/Vol] 0 10*3/uL Normal 0-5 [facility] Comment on above: Performed By: #### L 501.4020, L503.6005, L500.4050, L503.6620, L100.0100, L501.2450 ####[facility] [address] [place], [address] Platelet mean volume (Bld) [Entitic vol] 9.6 fL Normal 6.2-12.0 [facility] Comment on above: Performed By: #### L 501.4020, L503.6005, L500.4050, L503.6620, L100.0100, L501.2450 ####[facility] [address] [place], [address] Platelets (Bld) [#/Vol] 208 10*3/uL Normal 150-450 [facility] Comment on above: Performed By: #### L 501.4020, L503.6005, L500.4050, L503.6620, L100.0100, L501.2450 ####[facility] [address] [place], [address] RBC (Bld) [#/Vol] 3.90 10*6/uL Low 4.2-5.4 [facility] Comment on above: Performed By: #### L 501.4020, L503.6005, L500.4050, L503.6620, L100.0100, L501.2450 ####[facility] [address] [place], [address] RDW SD 51.8 fl High 35.1-43.9 [facility] Comment on above: Performed By: #### L 501.4020, L503.6005, L500.4050, L503.6620, L100.0100, L501.2450 ####[facility] [address] [place], [address] WBC (Bld) [#/Vol] 3.0 10*3/uL Low 4.4-11.[address] [facility] Comment on above: Performed By: #### L 501.4020, L503.6005, L500.4050, L503.6620, L100.0100, L501.2450 ####[facility] [address] [place], [address] Carbon dioxide measurementOr dered By: Trever Terry on 11-05-2024 CO2 [Moles/Vol] 29.0 mmol/L 21.0-32.0 [facility] Chest 1 View (Portable)on Chest 1 View (Portable) Normal [facility] Chloride measurementOrdered By: Trever Terry on 11-05-2024 Chloride [Moles/Vol] 98 mmol/L 98-107 [facility] Comprehensive Metabolic Prof ilon 11-05-2024 Albumin [Mass/Vol] 3.6 g/dL Normal 3.2-5.[address] [facility] Comment on above: Order Comment: 'TROP ' Serial specimen #1, #2 or #3: 1 Performed By: #### L 501.4020, L503.6005, L500.4050, L503.6620, L100.0100, L501.2450 ####[facility] [address] [place], [address] Albumin/Globulin [Mass ratio] 0.9 {ratio} Normal 0.9-2.4 [facility] Comment on above: Order Comment: 'TROP ' Serial specimen #1, #2 or #3: 1 Performed By: #### L 501.4020, L503.6005, L500.4050, L503.6620, L100.0100, L501.2450 ####[facility] [address] [place], [address] ALK P 198 U/L High 45-117 [facility] Comment on above: Order Comment: 'TROP ' Serial specimen #1, #2 or #3: 1 Performed By: #### L 501.4020, L503.6005, L500.4050, L503.6620, L100.0100, L501.2450 ####[facility] [address] [place], [address] ALT [Catalytic activity/Vol] 71 U/L High 13-56 [facility] Comment on above: Order Comment: 'TROP ' Serial specimen #1, #2 or #3: 1 Performed By: #### L 501.4020, L503.6005, L500.4050, L503.6620, L100.0100, L501.2450 ####[facility] [address] [place], [address] AST [Catalytic activity/Vol] 93 U/L High 15-37 [facility] Comment on above: Order Comment: 'TROP ' Serial specimen #1, #2 or #3: 1 Performed By: #### L 501.4020, L503.6005, L500.4050, L503.6620, L100.0100, L501.2450 ####[facility] [address] [place], [address] Bilirubin [Mass/Vol] 0.50 mg/dL Normal 0.20-1.00 [facility] Comment on above: Order Comment: 'TROP ' Serial specimen #1, #2 or #3: 1 Result Comment: For patients on eltrombopag therapy, use of Dimension [place] TBIL is not recommended. Performed By: #### L 501.4020, L503.6005, L500.4050, L503.6620, L100.0100, L501.2450 ####[facility] [address] [place], [address] BUN/CRE 15.6 RATIO Normal 10-20 [facility] Comment on above: Order Comment: 'TROP ' Serial specimen #1, #2 or #3: 1 Performed By: #### L 501.4020, L503.6005, L500.4050, L503.6620, L100.0100, L501.2450 ####[facility] [address] [place], [address] CA,Total 9.8 mg/dL Normal 8.5-10.1 [facility] Comment on above: Order Comment: 'TROP ' Serial specimen #1, #2 or #3: 1 Performed By: #### L 501.4020, L503.6005, L500.4050, L503.6620, L100.0100, L501.2450 ####[facility] [address] [place], [address] Chloride [Moles/Vol] 98 mmol/L Normal 98-107 [facility] Comment on above: Order Comment: 'TROP ' Serial specimen #1, #2 or #3: 1 Performed By: #### L 501.4020, L503.6005, L500.4050, L503.6620, L100.0100, L501.2450 ####[facility] [address] [place], [address] CO2 [Moles/Vol] 29.0 mmol/L Normal 21.0-32.0 [facility] Comment on above: Order Comment: 'TROP ' Serial specimen #1, #2 or #3: 1 Performed By: #### L 501.4020, L503.6005, L500.4050, L503.6620, L100.0100, L501.2450 ####[facility] [address] [place], [address] Creatinine [Mass/Vol] 1.54 mg/dL High 0.55-1.02 [facility] Comment on above: Order Comment: 'TROP ' Serial specimen #1, #2 or #3: 1 Result Comment: The validity of the calculated GFR GFRAA in patients over70 years has not been determined. Clinical correlation isessential. Performed By: #### L 501.4020, L503.6005, L500.4050, L503.6620, L100.0100, L501.2450 ####[facility] [address] [place], [address] ECRCL 40.19 ml/min Normal [facility] Comment on above: Order Comment: 'TROP ' Serial specimen #1, #2 or #3: 1 Performed By: #### L 501.4020, L503.6005, L500.4050, L503.6620, L100.0100, L501.2450 ####[facility] [address] [place], [address] EST GFR - AA 43 mL/min Low >60 [facility] Comment on above: Order Comment: 'TROP ' Serial specimen #1, #2 or #3: 1 Result Comment: Afri can [place] GFR Calc Performed By: #### L 501.4020, L503.6005, L500.4050, L503.6620, L100.0100, L501.2450 ####[facility] [address] [place], [address] GAP 8 Normal 5-15 [facility] Comment on above: Order Comment: 'TROP ' Serial specimen #1, #2 or #3: 1 Performed By: #### L 501.4020, L503.6005, L500.4050, L503.6620, L100.0100, L501.2450 ####[facility] [address] [place], [address] GFR/1.73 sq M.predicted among non-blacks MDRD (S/P/Bld) [Vol rate/Area] 35 mL/min/{1.73_m2} Low >60 [facility] Comment on above: Order Comment: 'TROP ' Serial specimen #1, #2 or #3: 1 Result Comment: Non- GFR Calc Performed By: #### L 501.4020, L503.6005, L500.4050, L503.6620, L100.0100, L501.2450 ####[facility] [address] [place], [address] Globulin (S) [Mass/Vol] 3.9 g/dL Normal 2.2-4.2 [facility] Comment on above: Order Comment: 'TROP ' Serial specimen #1, #2 or #3: 1 Performed By: #### L 501.4020, L503.6005, L500.4050, L503.6620, L100.0100, L501.2450 ####[facility] [address] [place], [address] Glucose [Mass/Vol] 241 mg/dL High 74-[address] [facility] Comment on above: Order Comment: 'TROP ' Serial specimen #1, #2 or #3: 1 Result Comment: Gluc ose result greater than or equal to 200 mg/dLsuggests DIABETES MELLITUS per A.D.A. criteria. Performed By: #### L 501.4020, L503.6005, L500.4050, L503.6620, L100.0100, L501.2450 ####[facility] [address] [place], [address] Potassium [Moles/Vol] 3.9 mmol/L Normal 3.5-5.1 [facility] Comment on above: Order Comment: 'TROP ' Serial specimen #1, #2 or #3: 1 Performed By: #### L 501.4020, L503.6005, L500.4050, L503.6620, L100.0100, L501.2450 ####[facility] [address] [place], [address] Sodium [Moles/Vol] 134 mmol/L Low 136-[address] [facility] Comment on above: Order Comment: 'TROP ' Serial specimen #1, #2 or #3: 1 Performed By: #### L 501.4020, L503.6005, L500.4050, L503.6620, L100.0100, L501.2450 ####[facility] [address] [place], [address] T PROT 7.5 g/dL Normal 6.4-8.2 [facility] Comment on above: Order Comment: 'TROP ' Serial specimen #1, #2 or #3: 1 Performed By: #### L 501.4020, L503.6005, L500.4050, L503.6620, L100.0100, L501.2450 ####[facility] [address] [place], [address] Urea nitrogen [Mass/Vol] 24 mg/dL High 7-18 [facility] [facility] Comment on above: Order Comment: 'TROP ' Serial specimen #1, #2 or #3: 1 Performed By: #### L 501.4020, L503.6005, L500.4050, L503.6620, L100.0100, L501.2450 ####[facility] [address] [place], [address] Emergency Department Summary on 11-05-2024 Emergency Department Summary Normal [facility] Eosinophil percentageOrdered By: Trever Terry on 11-05-2024 Eosinophils/100 WBC (Bld) 2.4 % 0-5 [facility] Epithelial cells.squamous LM Ql (Urine sed)Ordered By: Trever Terry on 11-05-2024 Epithelial cells.squamous LM.HPF (Urine sed) [#/Area] 0 /[HPF] 5-10 [facility] Erythrocyte distribution wid th ratioOrdered By: Trever Terry on 11-05-2024 Erythrocyte distribution width (RBC) [Ratio] 14.1 % 11.6-14.6 [facility] Erythrocyte distribution wid th standard deviationOrdered By: Trever Terry on 11-05-2024 Erythrocyte distribution width (RBC) [Entitic vol] 51.8 fL High 35.1-43.9 [facility] Erythrocyte distribution width (RBC) [Ratio] 51.8 fl High 35.1-43.9 [facility] Estimated glomerular filtrat ion rate (GFR) AmericanOrdered By: Trever Terry on 11-05-2024 Estimated GFR (MDRD) Amer 43 mL/min Low >60 [facility] Comment on above: GFR Calc Estimation of creatinine masoud aranceOrdered By: Trever Terry on 11-05-2024 Estimated Creatinine Clearance Calc 40.19 ml/min [facility] Glomerular filtration rate ( GFR) estimationOrdered By: Trever Terry on 11-05-2024 Estimated GFR (MDRD) Non-Af Amer 35 mL/min Low >60 [facility] Comment on above: Non- GFR Calc GFR/1.73 sq M.predicted among non-blacks MDRD (S/P/Bld) [Vol rate/Area] 35 mL/min/{1.73_m2} Low >60 [facility] Comment on above: Non- GFR Calc Glucose Ql (U)Ordered By: peter Terry on 11-05-2024 Glucose (U) [Mass/Vol] 1000 mg/dL High Normal [facility] Glucose measurementOrdered B y: Trever Terry on 11-05-2024 Glucose [Mass/Vol] 241 mg/dL High 74-[address] [facility] Comment on above: Glucose result great er than or equal to 200 mg/dLsuggests DIABETES MELLITUS per A.D.A. criteria. Hematocrit Auto (Bld) [Volum e fraction]Ordered By: Trever Terry on 11-05-2024 Hematocrit (Bld) [Volume fraction] 39.3 % 37-47 [facility] Hemoglobin measurementOrdere d By: Trever Terry on 11-05-2024 Hemoglobin (Bld) [Mass/Vol] 13.5 g/dL 12.0-15.0 [facility] Immature granulocytes/100 WB C Auto (Bld)Ordered By: Trever Terry on 11-05-2024 Immature granulocytes/100 WBC (Bld) 0.300 % 0.0-0.9 [facility] Comment on above: IG% - Immature Granu locytes (promyelocytes, myelocytes and metamyelocytes) > 1% indicates that a LEFT SHIFT is Present. Influenza virus A and B and SARS-CoV-2 (COVID-19) and Respiratory syncytial virus RNAOrdered By: Trever Terry on 11-05-2024 SARS-CoV-2 (COVID-19) RNA WES+probe Ql (Unsp spec) [facility] Ketones Test strip Ql (U)Ord ered By: Trever Terry on 11-05-2024 Ketones Ql (U) Negative Negative [facility] L501.4020on 11-05-2024 TROPONIN-I HS 6 pg/mL Normal 3.0-54.0 [facility] Comment on above: Order Comment: 'TROP ' Serial specimen #1, #2 or #3: 1 Result Comment: Plea se Note: New Test Units and Gender Specific Reference Ranges. For more information see Policy Stat Procedure [place] High Sensitivity Troponin (TNIH) and attachments. Performed By: #### L 501.4020, L503.6005, L500.4050, L503.6620, L100.0100, L501.2450 ####[facility] [address] [place], [place], [id number] Laboratory - Chemistry and C hemistry - challengeOrdered By: Trever Terry on 11-05-2024 AST [Catalytic activity/Vol] 93 U/L High 15-37 [facility] Lactic Acidon 11-05-2024 Lactate [Moles/Vol] 2.4 mmol/L Invalid Interpretation Code 0.4-1.9 [facility] Comment on above: Order Comment: Y Result Comment: Crit ical Result(s) Called at: 22:34:25 11/05/2024 by:Yaima Singh to [facility]. Results read back by same. Performed By: #### L 503.6005 ####[facility] [address] [place], [address] Lactate [Moles/Vol] 2.6 mmol/L Invalid Interpretation Code 0.4-1.9 [facility] Comment on above: Order Comment: Y Result Comment: Crit ical Result(s) Called at: 19:44:45 11/05/2024 [facility] Results read back by same. Performed By: #### L 501.4020, L503.6005, L500.4050, L503.6620, L100.0100, L501.2450 ####[facility] [address] [place], [address] Lactic acid measurementOrder ed By: Trever Terry on 11-05-2024 Lactate [Moles/Vol] 2.4 mmol/L High 0.4-2.0 [facility] Comment on above: Critical Result(s) C alled at: 22:34:25 11/05/2024 by: Yaima Singh to [facility]. Results read back by same. Lipaseon 11-05-2024 Lipase [Catalytic activity/Vol] 29 U/L Low 73-393 [facility] Comment on above: Order Comment: 'TROP ' Serial specimen #1, #2 or #3: 1 Performed By: #### L 501.4020, L503.6005, L500.4050, L503.6620, L100.0100, L501.2450 ####[facility] [address] [place], [address] Lipase measurementOrdered By : Trever Terry on 11-05-2024 Lipase [Catalytic activity/Vol] 29 U/L Low 73-393 [facility] Lymphocytes Auto (Unsp spec) [#/Vol]Ordered By: Trever Terry on 11-05-2024 Lymphocytes (Bld) [#/Vol] 0.95 10*3/uL 0.83-4.51 [facility] Lymphocytes/100 WBC Auto (Un sp spec)Ordered By: Trever Terry on 11-05-2024 Lymphocytes/100 WBC (Bld) 32.1 % 19-41 [facility] M100.678on 11-05-2024 M100.678 SARS-CoV-2 (COVID 19 ) Negative INFLUENZA A Negative INFLUENZA B Negative RSV PCR Negative Normal [facility] Comment on above: Performed By: #### M 100.678 ####[facility] [address], [address] MCV (mean corpuscular volume ) determinationOrdered By: Trever Terry on 11-05-2024 MCV (RBC) [Entitic vol] 100.8 fL High 81-99 [facility] Mean corpuscular hemoglobin (MCH) determinationOrdered By: Trever Terry on 11-05-2024 MCH (RBC) [Entitic mass] 34.6 pg High 27.0-32.0 [facility] Mean corpuscular hemoglobin concentration (MCHC) determinationOrdered By: Trever Terry on 11-05-2024 MCHC (RBC) [Mass/Vol] 34.4 g/dL 32-36 [facility] Mean platelet volume determi nationOrdered By: Trever Terry on 11-05-2024 Platelet mean volume (Bld) [Entitic vol] 9.6 fL 6.2-12.0 [facility] Microscopic analysis of urin e for red blood cells (RBC)Ordered By: Trever Terry on 11-05-2024 Microscopic analysis of urine for red blood cells (RBC) 0-5 SEEN /hpf 0-5 [facility] Urine RBC 0-5 SEEN /hpf 0-5 [facility] Monocyte percentageOrdered B y: Trever Terry on 11-05-2024 Monocytes/100 WBC (Bld) 8.8 % 0-10 [facility] Mucus LM Ql (Urine sed)Order ed By: Trever Terry on 11-05-2024 Mucus Ql (Urine sed) 0 SEEN /hpf [facility] Neutrophil percentageOrdered By: Trever Terry on 11-05-2024 Neutrophils/100 WBC (Bld) 54.4 % 47-70 [facility] Nitrite Test strip Ql (U)Ord ered By: Trever Terry on 11-05-2024 Nitrite Ql (U) Negative Negative [facility] Nucleated red blood cell per centageOrdered By: Trever Terry on 11-05-2024 Nucleated RBC/100 WBC (Bld) [Ratio] 0 % 0-5 [facility] Platelet countOrdered By: David Terry on 11-05-2024 Platelets (Bld) [#/Vol] 208 10*3/uL 150-450 [facility] Potassium measurementOrdered By: Trever Terry on 11-05-2024 Potassium [Moles/Vol] 3.9 mmol/L 3.5-5.1 [facility] Protein Test strip Ql (U)Ord ered By: Trever Terry on 11-05-2024 Protein Ql (U) 15 mg/dl High Negative [facility] RBC Auto (Bld) [#/Vol]Ordere d By: Trever Terry on 11-05-2024 RBC (Bld) [#/Vol] 3.90 10*6/uL Low 4.2-5.4 [facility] Serum anion gap measurementO rdered By: Trever Terry on 11-05-2024 Anion gap [Moles/Vol] 8 mmol/L 5-15 [facility] Serum globulin measurementOr dered By: Trever Terry on 11-05-2024 Globulin (S) [Mass/Vol] 3.9 g/dL 2.2-4.2 [facility] Serum or plasma alanine skinner otransferase (ALT) measurementOrdered By: Trever Terry on 11-05-2024 ALT [Catalytic activity/Vol] 71 U/L High 13-56 [facility] Serum or plasma albumin amanda urement (mass/volume)Ordered By: Trever Terry on 11-05-2024 Albumin [Mass/Vol] 3.6 g/dL 3.2-5.[address] [facility] Serum or plasma alkaline domenico sphatase measurementOrdered By: Trever Terry on 11-05-2024 ALP [Catalytic activity/Vol] 198 U/L High 45-117 [facility] Serum or plasma calcium amanda urement (mass/volume)Ordered By: Trever Terry on 11-05-2024 Calcium [Mass/Vol] 9.8 mg/dL 8.5-10.[address] [facility] Serum or plasma creatinine m easurement (mass/volume)Ordered By: Trever Terry on 11-05-2024 Creatinine [Mass/Vol] 1.54 mg/dL High 0.55-1.02 [facility] Comment on above: The validity of the calculated GFR & GFRAA in patients over 70 years has not been determined. Clinical correlation is essential. Serum or plasma urea nitroge n measurement (mass/volume)Ordered By: Trever Terry on 11-05-2024 Urea nitrogen [Mass/Vol] 24 mg/dL High 7-18 [facility] Sodium levelOrdered By: Vlad Terry on 11-05-2024 Sodium [Moles/Vol] 134 mmol/L Low 136-[address] [facility] Squamous epithelial cells de tection in urine sediment by light microscopyOrdered By: Trever Terry on 11-05-2024 Epithelial cells.squamous LM Ql (Urine sed) 0-5 SEEN /hpf 5-10 [facility] Total proteinOrdered By: La Terry on 11-05-2024 Protein [Mass/Vol] 7.5 g/dL 6.4-8.[address] [facility] Troponin IOrdered By: Trever Terry on 11-05-2024 Troponin I 6 pg/mL 3.0-54.0 [facility] Comment on above: Please Note: New Ellie t Units and Gender Specific Reference Ranges. For more information see Policy Stat Procedure [place] High Sensitivity Troponin (TNIH) and attachments. Troponin I High Sensitivity 6 pg/mL 3.0-54.0 [facility] Comment on above: Please Note: New Ellie t Units and Gender Specific Reference Ranges. For more information see Policy Stat Procedure [place] High Sensitivity Troponin (TNIH) and attachments. Urinalysis, Completeon 11-05 BACTERIA RARE Normal None Seen [facility] Comment on above: Order Comment: YOGESH CTOR TO SPECIFY Performed By: #### L 400.0001 ####[facility] [address] [place], [address] EPI,SQUAMOUS 0-5 SEEN Normal 5-10 [facility] Comment on above: Order Comment: YOGESH CTOR TO SPECIFY Performed By: #### L 400.0001 ####[facility] [address] [place], [address] RBC 0-5 SEEN Normal 0-5 [facility] Comment on above: Order Comment: YOGESH CTOR TO SPECIFY Performed By: #### L 400.0001 ####[facility] [address] [place], [address] WBC 10-25 SEEN Normal 0-5 [facility] Comment on above: Order Comment: YOGESH CTOR TO SPECIFY Performed By: #### L 400.0001 ####[facility] [address] [place], [address] Mucus Ql (Urine sed) 0 SEEN Normal [facility] Comment on above: Order Comment: YOGESH CTOR TO SPECIFY Performed By: #### L 400.0001 ####[facility] [address] [place], [address] Urine blood detectionOrdered By: Trever Terry on 11-05-2024 Urine Occult Blood 25 /ul High Negative [facility] Urine clarityOrdered By: La Terry on 11-05-2024 Clarity (U) Clear Clear [facility] Urine color determinationOrd ered By: Trever Terry on 11-05-2024 Color (U) Yellow Yellow [facility] Urine cultureOrdered By: La Terry on 11-05-2024 Bacteria identified Cx Nom (U) Mixed Gram Pos & Gram Neg Org Abnormal [facility] Urine glucose detectionOrder ed By: Trever Terry on 11-05-2024 Glucose Ql (U) 1000 mg/dl High Normal [facility] Urine leukocyte esterase det ection by dipstickOrdered By: Trever Terry on 11-05-2024 Leukocyte esterase Test strip Ql (U) 100 /ul High Negative [facility] Urine pHOrdered By: Trever bain on 11-05-2024 pH (U) 6.0 [pH] 5.0 - 8.0 [facility] Urine sediment bacteria coun t by microscopy (number/high power field)Ordered By: Trever Terry on 11-05-2024 Bacteria LM.HPF (Urine sed) [#/Area] RARE /hpf None Seen [facility] Urine specific gravity measu rementOrdered By: Trever Terry on 11-05-2024 Specific gravity (U) [Rel density] 1.010 1.002-1.030 [facility] Urine urobilinogen measureme ntOrdered By: Trever Terry on 11-05-2024 Urobilinogen Ql (U) Normal mg/dl Normal [facility] Urobilinogen Ql (U)Ordered B y: Trever Terry on 11-05-2024 Urine Urobilinogen Normal mg/dl Normal [facility] White blood cell (WBC) count Ordered By: Trever Terry on 11-05-2024 WBC (Bld) [#/Vol] 3.0 10*3/uL Low 4.4-11.[address] [facility] White blood cell countOrdere d By: Trever Terry on 11-05-2024 Urine WBC 10-25 SEEN /hpf 0-5 [facility] White blood cell count 10-25 SEEN /hpf 0-5 [facility] Absolute neutrophil countOrd ered By: Kang Pagan on 10-25-2024 Neutrophils (Bld) [#/Vol] 1.5 10*3/uL Low 2.0-7.7 [facility] Basophil percentageOrdered B y: Kang Pagan on 10-25-2024 Basophils/100 WBC (Bld) 1.5 % High 0-1 [facility] CBC W/Diff, Automatedon 10-13 Absolute Lymph 1.18 X10 3/uL Normal 0.83-4.51 [facility] Comment on above: Performed By: #### L 100.0100 ####[facility] [address] [place], [address] Absolute Neut 1.5 X10 3/uL Low 2.0-7.7 [facility] Comment on above: Performed By: #### L 100.0100 ####[facility] [address] [place], [address] Basophils/100 WBC (Bld) 1.5 % High 0-1 [facility] Comment on above: Performed By: #### L 100.0100 ####[facility] [address] [place], [address] Eosinophils/100 WBC (Bld) 3.9 % Normal 0-5 [facility] Comment on above: Performed By: #### L 100.0100 ####[facility] [address] [place], [address] Erythrocyte distribution width (RBC) [Ratio] 14.6 % Normal 11.6-14.6 [facility] Comment on above: Performed By: #### L 100.0100 ####[facility] [address] [place], [address] Hematocrit (Bld) [Volume fraction] 35.9 % Low 37-47 [facility] Comment on above: Performed By: #### L 100.0100 ####[facility] [address] [place], [address] Hemoglobin (Bld) [Mass/Vol] 12.3 g/dL Normal 12.0-15.0 [facility] Comment on above: Performed By: #### L 100.0100 ####[facility] [address] [place], [address] IG% 0.600 Normal 0.0-0.9 [facility] Comment on above: Result Comment: IG% - Immature Granulocytes (promyelocytes, myelocytes andmetamyelocytes) > 1% indicates that a LEFT SHIFT is Present. Performed By: #### L 100.0100 ####[facility] [address] [place], [address] Lymphocytes/100 WBC (Bld) 35.8 % Normal 19-41 [facility] Comment on above: Performed By: #### L 100.0100 ####[facility] [address] [place], [address] MCH (RBC) [Entitic mass] 34.7 pg High 27.0-32.0 [facility] Comment on above: Performed By: #### L 100.0100 ####[facility] [address] [place], [address] MCHC (RBC) [Mass/Vol] 34.3 g/dL Normal 32-36 [facility] Comment on above: Performed By: #### L 100.0100 ####[facility] [address] [place], [address] MCV (RBC) [Entitic vol] 101.4 fL High 81-99 [facility] Comment on above: Performed By: #### L 100.0100 ####[facility] [address] [place], [address] Monocytes/100 WBC (Bld) 14.2 % High 0-10 [facility] Comment on above: Performed By: #### L 100.0100 ####[facility] [address] [place], [address] Neutrophils/100 WBC (Bld) 44.0 % Low 47-70 [facility] Comment on above: Performed By: #### L 100.0100 ####[facility] [address] [place], [address] Nucleated RBC (Bld) [#/Vol] 0 10*3/uL Normal 0-5 [facility] Comment on above: Performed By: #### L 100.0100 ####[facility] [address] [place], [address] Platelet mean volume (Bld) [Entitic vol] 9.5 fL Normal 6.2-12.0 [facility] Comment on above: Performed By: #### L 100.0100 ####[facility] [address] [place], [address] Platelets (Bld) [#/Vol] 158 10*3/uL Normal 150-450 [facility] Comment on above: Performed By: #### L 100.0100 ####[facility] [address] [place], [address] RBC (Bld) [#/Vol] 3.54 10*6/uL Low 4.2-5.4 [facility] Comment on above: Performed By: #### L 100.0100 ####[facility] [address] [place], [address] RDW SD 53.8 fl High 35.1-43.9 [facility] Comment on above: Performed By: #### L 100.0100 ####[facility] [address] [place], [address] WBC (Bld) [#/Vol] 3.3 10*3/uL Low 4.4-11.[address] [facility] Comment on above: Performed By: #### L 100.0100 ####[facility] [address] [place], [address] Eosinophil percentageOrdered By: Kang Pagan on 10-25-2024 Eosinophils/100 WBC (Bld) 3.9 % 0-5 [facility] Erythrocyte distribution wid th ratioOrdered By: Kang Pagan on 10-25-2024 Erythrocyte distribution width (RBC) [Ratio] 14.6 % 11.6-14.6 [facility] Erythrocyte distribution wid th standard deviationOrdered By: Kang Pagan on 10-25-2024 Erythrocyte distribution width (RBC) [Entitic vol] 53.8 fL High 35.1-43.9 [facility] Hematocrit Auto (Bld) [Volum e fraction]Ordered By: Kang Pagan on 10-25-2024 Hematocrit (Bld) [Volume fraction] 35.9 % Low 37-47 [facility] Hemoglobin measurementOrdere d By: Kang Pagan on 10-25-2024 Hemoglobin (Bld) [Mass/Vol] 12.3 g/dL 12.0-15.0 [facility] Immature granulocytes/100 WB C Auto (Bld)Ordered By: Kang Pagan on 10-25-2024 Immature granulocytes/100 WBC (Bld) 0.600 % 0.0-0.9 [facility] Comment on above: IG% - Immature Granu locytes (promyelocytes, myelocytes and metamyelocytes) > 1% indicates that a LEFT SHIFT is Present. Lymphocytes Auto (Unsp spec) [#/Vol]Ordered By: Kang Pagan on 10-25-2024 Lymphocytes (Bld) [#/Vol] 1.18 10*3/uL 0.83-4.51 [facility] Lymphocytes/100 WBC Auto (Un sp spec)Ordered By: Kang Pagan on 10-25-2024 Lymphocytes/100 WBC (Bld) 35.8 % 19-41 [facility] MCV (mean corpuscular volume ) determinationOrdered By: Kang Pagan on 10-25-2024 MCV (RBC) [Entitic vol] 101.4 fL High 81-99 [facility] Mean corpuscular hemoglobin (MCH) determinationOrdered By: Kang Pagan on 10-25-2024 MCH (RBC) [Entitic mass] 34.7 pg High 27.0-32.0 [facility] Mean corpuscular hemoglobin concentration (MCHC) determinationOrdered By: Kang Pagan on 10-25-2024 MCHC (RBC) [Mass/Vol] 34.3 g/dL 32-36 [facility] Mean platelet volume determi nationOrdered By: Kang Pagan on 10-25-2024 Platelet mean volume (Bld) [Entitic vol] 9.5 fL 6.2-12.0 [facility] Monocyte percentageOrdered B y: Kang Pagan on 10-25-2024 Monocytes/100 WBC (Bld) 14.2 % High 0-10 [facility] Neutrophil percentageOrdered By: Kang Pagan on 10-25-2024 Neutrophils/100 WBC (Bld) 44.0 % Low 47-70 [facility] Nucleated red blood cell per centageOrdered By: Kang Pagan on 10-25-2024 Nucleated RBC/100 WBC (Bld) [Ratio] 0 % 0-5 [facility] Oncology Visit Reporton 10-13 Oncology Visit Report [facility] Platelet countOrdered By: Germán Pagan on 10-25-2024 Platelets (Bld) [#/Vol] 158 10*3/uL 150-450 [facility] RBC Auto (Bld) [#/Vol]Ordere d By: Kang Pagan on 10-25-2024 RBC (Bld) [#/Vol] 3.54 10*6/uL Low 4.2-5.4 [facility] White blood cell (WBC) count Ordered By: Kang Pagan on 10-25-2024 WBC (Bld) [#/Vol] 3.3 10*3/uL Low 4.4-11.[address] [facility] Albumin to globulin ratioOrd ered By: Myron Calvillo on 10-18-2024 Albumin/Globulin [Mass ratio] 1.0 {ratio} 0.9-2.4 [facility] Atypical lymphocyte percenta geOrdered By: Myron Calvillo on 10-18-2024 Atypical Lymphocytes 1+ % [facility] Bilirubin, totalOrdered By: Myron Calvillo on 10-18-2024 Bilirubin [Mass/Vol] 0.50 mg/dL 0.20-1.00 [facility] Comment on above: For patients on eltr ombopag therapy, use of Dimension [place] TBIL is not recommended. Blood manual differential co mment interpretation (narrative result)Ordered By: Myron Calvillo on 10-18-2024 Manual differential comment Marcial (Bld) [Interp] SCANNED [facility] Comment on above: NEUTROPENIA NOTED Blood urea nitrogen (BUN)/cr eatinine ratioOrdered By: Myron Calvillo on 10-18-2024 Urea nitrogen/Creatinine [Mass ratio] 17.1 mg/mg 10-20 [facility] CBC W/Diff, Automatedon - ATYPICAL LYMPH 1+ Normal [facility] Comment on above: Performed By: #### L 504.2610, L100.0100, L500.4050 ####[facility] [address] [place], [address] SMEAR COMMENT SCANNED Normal [facility] Comment on above: Result Comment: NEUT ROPENIA NOTED Performed By: #### L 504.2610, L100.0100, L500.4050 ####[facility] [address] [place], [address] Carbon dioxide measurementOr dered By: Myron Calvillo on 10-18-2024 CO2 [Moles/Vol] 31.0 mmol/L 21.0-32.0 [facility] Chloride measurementOrdered By: Myron Calvillo on 10-18-2024 Chloride [Moles/Vol] 103 mmol/L 98-107 [facility] Comprehensive Metabolic Prof ilon 10-18-2024 Albumin [Mass/Vol] 3.2 g/dL Normal 3.2-5.[address] [facility] Comment on above: Performed By: #### L 504.2610, L100.0100, L500.4050 ####[facility] [address] [place], [address] Albumin/Globulin [Mass ratio] 1.0 {ratio} Normal 0.9-2.4 [facility] Comment on above: Performed By: #### L 504.2610, L100.0100, L500.4050 ####[facility] [address] [place], [address] ALK P 108 U/L Normal 45-117 [facility] Comment on above: Performed By: #### L 504.2610, L100.0100, L500.4050 ####[facility] [address] [place], [address] ALT [Catalytic activity/Vol] 44 U/L Normal 13-56 [facility] Comment on above: Performed By: #### L 504.2610, L100.0100, L500.4050 ####[facility] [address] [place], [address] AST [Catalytic activity/Vol] 62 U/L High 15-37 [facility] Comment on above: Performed By: #### L 504.2610, L100.0100, L500.4050 ####[facility] [address] [place], [address] Bilirubin [Mass/Vol] 0.50 mg/dL Normal 0.20-1.00 [facility] Comment on above: Result Comment: For patients on eltrombopag therapy, use of Dimension [place] TBIL is not recommended. Performed By: #### L 504.2610, L100.0100, L500.4050 ####[facility] [address] [place], [address] BUN/CRE 17.1 RATIO Normal 10-20 [facility] Comment on above: Performed By: #### L 504.2610, L100.0100, L500.4050 ####[facility] [address] [place], [address] CA,Total 9.1 mg/dL Normal 8.5-10.1 [facility] Comment on above: Performed By: #### L 504.2610, L100.0100, L500.4050 ####[facility] [address] [place], [address] Chloride [Moles/Vol] 103 mmol/L Normal 98-107 [facility] Comment on above: Performed By: #### L 504.2610, L100.0100, L500.4050 ####[facility] [address] [place], [address] CO2 [Moles/Vol] 31.0 mmol/L Normal 21.0-32.0 [facility] Comment on above: Performed By: #### L 504.2610, L100.0100, L500.4050 ####[facility] [address] [place], [address] Creatinine [Mass/Vol] 1.29 mg/dL High 0.55-1.02 [facility] Comment on above: Result Comment: The validity of the calculated GFR GFRAA in patients over70 years has not been determined. Clinical correlation isessential. Performed By: #### L 504.2610, L100.0100, L500.4050 ####[facility] [address] [place], [address] ECRCL 48.41 ml/min Normal [facility] Comment on above: Performed By: #### L 504.2610, L100.0100, L500.4050 ####[facility] [address] [place], [address] EST GFR - AA 52 mL/min Low >60 [facility] Comment on above: Result Comment: Afri can Slovak GFR Calc Performed By: #### L 504.2610, L100.0100, L500.4050 ####[facility] [address] [place], [address] GAP 5 Normal 5-15 [facility] Comment on above: Performed By: #### L 504.2610, L100.0100, L500.4050 ####[facility] [address] [place], [address] GFR/1.73 sq M.predicted among non-blacks MDRD (S/P/Bld) [Vol rate/Area] 43 mL/min/{1.73_m2} Low >60 [facility] Comment on above: Result Comment: Non- GFR Calc Performed By: #### L 504.2610, L100.0100, L500.4050 ####[facility] [address] [place], [address] Globulin (S) [Mass/Vol] 3.3 g/dL Normal 2.2-4.2 [facility] Comment on above: Performed By: #### L 504.2610, L100.0100, L500.4050 ####[facility] [address] [place], [address] Glucose [Mass/Vol] 203 mg/dL High 74-[address] [facility] Comment on above: Result Comment: Gluc ose result greater than or equal to 200 mg/dLsuggests DIABETES MELLITUS per A.D.A. criteria. Performed By: #### L 504.2610, L100.0100, L500.4050 ####[facility] [address] [place], [address] Potassium [Moles/Vol] 3.9 mmol/L Normal 3.5-5.1 [facility] Comment on above: Performed By: #### L 504.2610, L100.0100, L500.4050 ####[facility] [address] [place], [address] Sodium [Moles/Vol] 140 mmol/L Normal 136-[address] [facility] Comment on above: Performed By: #### L 504.2610, L100.0100, L500.4050 ####[facility] [address] [place], [address] T PROT 6.5 g/dL Normal 6.4-8.2 [facility] Comment on above: Performed By: #### L 504.2610, L100.0100, L500.4050 ####[facility] [address] [place], [address] Urea nitrogen [Mass/Vol] 22 mg/dL High 7-18 [facility] Comment on above: Performed By: #### L 504.2610, L100.0100, L500.4050 ####[facility] [address] [place], [address] Estimated glomerular filtrat ion rate (GFR) AmericanOrdered By: Myron Calvillo on 10-18-2024 Estimated GFR (MDRD) Amer 52 mL/min Low >60 [facility] Comment on above: GFR Calc Estimation of creatinine masodu aranceOrdered By: Myron Calvillo on 10-18-2024 Estimated Creatinine Clearance Calc 48.41 ml/min [facility] Glomerular filtration rate ( GFR) estimationOrdered By: Myron Calvillo on 10-18-2024 Estimated GFR (MDRD) Non-Af Amer 43 mL/min Low >60 [facility] Comment on above: Non- GFR Calc Glucose measurementOrdered B y: Myron Calvillo on 10-18-2024 Glucose [Mass/Vol] 203 mg/dL High 74-[address] [facility] Comment on above: Glucose result great er than or equal to 200 mg/dLsuggests DIABETES MELLITUS per A.D.A. criteria. LDHon 10-18-2024 LDH 165 U/L Normal 84-246 [facility] Comment on above: Order Comment: 1 Performed By: #### L 504.2610, L100.0100, L500.4050 ####[facility] [address] [place], [address] Laboratory - Chemistry and C hemistry - challengeOrdered By: Myron Calvillo on 10-18-2024 AST [Catalytic activity/Vol] 62 U/L High 15-37 [facility] Lactate dehydrogenase (LDH) measurementOrdered By: Myron Calvillo on 10-18-2024 LDH [Catalytic activity/Vol] 165 U/L 84-246 [facility] Manual differential comment Marcial (Bld) [Interp]Ordered By: Myron Calvillo on 10-18-2024 Differential Comment SCANNED [facility] Comment on above: NEUTROPENIA NOTED Oncology Visit Reporton Oncology Visit Report [facility] Potassium measurementOrdered By: Myron Calvillo on 10-18-2024 Potassium [Moles/Vol] 3.9 mmol/L 3.5-5.1 [facility] Serum anion gap measurementO rdered By: Myron Calvillo on 10-18-2024 Anion gap [Moles/Vol] 5 mmol/L 5-15 [facility] Serum globulin measurementOr dered By: Myron Calvillo on 10-18-2024 Globulin (S) [Mass/Vol] 3.3 g/dL 2.2-4.2 [facility] Serum or plasma alanine skinner otransferase (ALT) measurementOrdered By: Myron Calvillo on 10-18-2024 ALT [Catalytic activity/Vol] 44 U/L 13-56 [facility] Serum or plasma albumin amanda urement (mass/volume)Ordered By: Myron Calvillo on 10-18-2024 Albumin [Mass/Vol] 3.2 g/dL 3.2-5.[address] [facility] Serum or plasma alkaline domenico sphatase measurementOrdered By: Myron Calvillo on 10-18-2024 ALP [Catalytic activity/Vol] 108 U/L 45-117 [facility] Serum or plasma calcium amanda urement (mass/volume)Ordered By: Myron Calvillo on 10-18-2024 Calcium [Mass/Vol] 9.1 mg/dL 8.5-10.[address] [facility] Serum or plasma creatinine m easurement (mass/volume)Ordered By: Myron Calvillo on 10-18-2024 Creatinine [Mass/Vol] 1.29 mg/dL High 0.55-1.02 [facility] Comment on above: The validity of the calculated GFR & GFRAA in patients over 70 years has not been determined. Clinical correlation is essential. Serum or plasma urea nitroge n measurement (mass/volume)Ordered By: Myron Calvillo on 10-18-2024 Urea nitrogen [Mass/Vol] 22 mg/dL High 7-18 [facility] Sodium levelOrdered By: Yaakov Calvillo on 10-18-2024 Sodium [Moles/Vol] 140 mmol/L 136-[address] [facility] Total proteinOrdered By: Kavon Calvillo on 10-18-2024 Protein [Mass/Vol] 6.5 g/dL 6.4-8.[address] [facility] CBC W/Diff, Automatedon 01-0 Absolute Lymph 0.65 X10 3/uL Low 0.83-4.51 [facility] Comment on above: Performed By: #### L 500.4050, L504.2610, L100.0100 ####[facility] [address] [place], [address] Absolute Neut 1.7 X10 3/uL Low 2.0-7.7 [facility] Comment on above: Performed By: #### L 500.4050, L504.2610, L100.0100 ####[facility] [address] [place], [address] Basophils/100 WBC (Bld) 1.1 % High 0-1 [facility] Comment on above: Performed By: #### L 500.4050, L504.2610, L100.0100 ####[facility] [address] [place], [address] Eosinophils/100 WBC (Bld) 1.8 % Normal 0-5 [facility] Comment on above: Performed By: #### L 500.4050, L504.2610, L100.0100 ####[facility] [address] [place], [address] Erythrocyte distribution width (RBC) [Ratio] 13.5 % Normal 11.6-14.6 [facility] Comment on above: Performed By: #### L 500.4050, L504.2610, L100.0100 ####[facility] [address] [place], [address] Hematocrit (Bld) [Volume fraction] 35.5 % Low 37-47 [facility] Comment on above: Performed By: #### L 500.4050, L504.2610, L100.0100 ####[facility] [address] [place], [address] Hemoglobin (Bld) [Mass/Vol] 12.3 g/dL Normal 12.0-15.0 [facility] Comment on above: Performed By: #### L 500.4050, L504.2610, L100.0100 ####[facility] [address] [place], [address] IG% 0.700 Normal 0.0-0.9 [facility] Comment on above: Result Comment: IG% - Immature Granulocytes (promyelocytes, myelocytes andmetamyelocytes) > 1% indicates that a LEFT SHIFT is Present. Performed By: #### L 500.4050, L504.2610, L100.0100 ####[facility] [address] [place], [address] Lymphocytes/100 WBC (Bld) 23.7 % Normal 19-41 [facility] Comment on above: Performed By: #### L 500.4050, L504.2610, L100.0100 ####[facility] [address] [place], [address] MCH (RBC) [Entitic mass] 34.8 pg High 27.0-32.0 [facility] Comment on above: Performed By: #### L 500.4050, L504.2610, L100.0100 ####[facility] [address] [place], [address] MCHC (RBC) [Mass/Vol] 34.6 g/dL Normal 32-36 [facility] Comment on above: Performed By: #### L 500.4050, L504.2610, L100.0100 ####[facility] [address] [place], [address] MCV (RBC) [Entitic vol] 100.6 fL High 81-99 [facility] Comment on above: Performed By: #### L 500.4050, L504.2610, L100.0100 ####[facility] [address] [place], [address] Monocytes/100 WBC (Bld) 10.9 % High 0-10 [facility] Comment on above: Performed By: #### L 500.4050, L504.2610, L100.0100 ####[facility] [address] [place], [address] Neutrophils/100 WBC (Bld) 61.8 % Normal 47-70 [facility] Comment on above: Performed By: #### L 500.4050, L504.2610, L100.0100 ####[facility] [address] [place], [address] Nucleated RBC (Bld) [#/Vol] 0 10*3/uL Normal 0-5 [facility] Comment on above: Performed By: #### L 500.4050, L504.2610, L100.0100 ####[facility] [address] [place], [address] Platelet mean volume (Bld) [Entitic vol] 9.8 fL Normal 6.2-12.0 [facility] Comment on above: Performed By: #### L 500.4050, L504.2610, L100.0100 ####[facility] [address] [place], [address] Platelets (Bld) [#/Vol] 140 10*3/uL Low 150-450 [facility] Comment on above: Performed By: #### L 500.4050, L504.2610, L100.0100 ####[facility] [address] [place], [address] RBC (Bld) [#/Vol] 3.53 10*6/uL Low 4.2-5.4 [facility] Comment on above: Performed By: #### L 500.4050, L504.2610, L100.0100 ####[facility] [address] [place], [address] RDW SD 49.7 fl High 35.1-43.9 [facility] Comment on above: Performed By: #### L 500.4050, L504.2610, L100.0100 ####[facility] [address] [place], [address] WBC (Bld) [#/Vol] 2.7 10*3/uL Low 4.4-11.[address] [facility] Comment on above: Performed By: #### L 500.4050, L504.2610, L100.0100 ####[facility] [address] [place], [address] Comprehensive Metabolic Prof ilon 09-20-2024 Albumin [Mass/Vol] 3.1 g/dL Low 3.2-5.[address] [facility] Comment on above: Order Comment: 1 Performed By: #### L 500.4050, L504.2610, L100.0100 ####[facility] [address] [place], [address] Albumin/Globulin [Mass ratio] 0.9 {ratio} Normal 0.9-2.4 [facility] Comment on above: Order Comment: 1 Performed By: #### L 500.4050, L504.2610, L100.0100 ####[facility] [address] [place], [address] ALK P 118 U/L High 45-117 [facility] Comment on above: Order Comment: 1 Performed By: #### L 500.4050, L504.2610, L100.0100 ####[facility] [address] [place], [address] ALT [Catalytic activity/Vol] 36 U/L Normal 13-56 [facility] Comment on above: Order Comment: 1 Performed By: #### L 500.4050, L504.2610, L100.0100 ####[facility] [address] [place], [address] AST [Catalytic activity/Vol] 41 U/L High 15-37 [facility] Comment on above: Order Comment: 1 Performed By: #### L 500.4050, L504.2610, L100.0100 ####[facility] [address] [place], [address] Bilirubin [Mass/Vol] 0.50 mg/dL Normal 0.20-1.00 [facility] Comment on above: Order Comment: 1 Result Comment: For patients on eltrombopag therapy, use of Dimension [place] TBIL is not recommended. Performed By: #### L 500.4050, L504.2610, L100.0100 ####[facility] [address] [place], [address] BUN/CRE 11.8 RATIO Normal 10-20 [facility] Comment on above: Order Comment: 1 Performed By: #### L 500.4050, L504.2610, L100.0100 ####[facility] [address] [place], [address] CA,Total 9.1 mg/dL Normal 8.5-10.1 [facility] Comment on above: Order Comment: 1 Performed By: #### L 500.4050, L504.2610, L100.0100 ####[facility] [address] [place], [address] Chloride [Moles/Vol] 101 mmol/L Normal 98-107 [facility] Comment on above: Order Comment: 1 Performed By: #### L 500.4050, L504.2610, L100.0100 ####[facility] [address] [place], [address] CO2 [Moles/Vol] 28.0 mmol/L Normal 21.0-32.0 [facility] Comment on above: Order Comment: 1 Performed By: #### L 500.4050, L504.2610, L100.0100 ####[facility] [address] [place], [address] Creatinine [Mass/Vol] 1.61 mg/dL High 0.55-1.02 [facility] Comment on above: Order Comment: 1 Result Comment: The validity of the calculated GFR GFRAA in patients over70 years has not been determined. Clinical correlation isessential. Performed By: #### L 500.4050, L504.2610, L100.0100 ####[facility] [address] [place], [address] ECRCL 38.79 ml/min Normal [facility] Comment on above: Order Comment: 1 Performed By: #### L 500.4050, L504.2610, L100.0100 ####[facility] [address] [place], [address] EST GFR - AA 41 mL/min Low >60 [facility] Comment on above: Order Comment: 1 Result Comment: Afri can Slovak GFR Calc Performed By: #### L 500.4050, L504.2610, L100.0100 ####[facility] [address] [place], [address] GAP 8 Normal 5-15 [facility] Comment on above: Order Comment: 1 Performed By: #### L 500.4050, L504.2610, L100.0100 ####[facility] [address] [place], [address] GFR/1.73 sq M.predicted among non-blacks MDRD (S/P/Bld) [Vol rate/Area] 34 mL/min/{1.73_m2} Low >60 [facility] Comment on above: Order Comment: 1 Result Comment: Non- GFR Calc Performed By: #### L 500.4050, L504.2610, L100.0100 ####[facility] [address] [place], [address] Globulin (S) [Mass/Vol] 3.6 g/dL Normal 2.2-4.2 [facility] Comment on above: Order Comment: 1 Performed By: #### L 500.4050, L504.2610, L100.0100 ####[facility] [address] [place], [address] Glucose [Mass/Vol] 227 mg/dL High 74-[address] [facility] Comment on above: Order Comment: 1 Result Comment: Gluc ose result greater than or equal to 200 mg/dLsuggests DIABETES MELLITUS per A.D.A. criteria. Performed By: #### L 500.4050, L504.2610, L100.0100 ####[facility] [address] [place], [address] Potassium [Moles/Vol] 3.8 mmol/L Normal 3.5-5.1 [facility] Comment on above: Order Comment: 1 Performed By: #### L 500.4050, L504.2610, L100.0100 ####[facility] [address] [place], [address] Sodium [Moles/Vol] 137 mmol/L Normal 136-[address] [facility] Comment on above: Order Comment: 1 Performed By: #### L 500.4050, L504.2610, L100.0100 ####[facility] [address] [place], [address] T PROT 6.7 g/dL Normal 6.4-8.2 [facility] Comment on above: Order Comment: 1 Performed By: #### L 500.4050, L504.2610, L100.0100 ####[facility] [address] [place], [address] Urea nitrogen [Mass/Vol] 19 mg/dL High 7-18 [facility] Comment on above: Order Comment: 1 Performed By: #### L 500.4050, L504.2610, L100.0100 ####[facility] [address] [place], [address] LDHon 09-20-2024 LDH 181 U/L Normal 84-246 [facility] Comment on above: Order Comment: 1 Performed By: #### L 500.4050, L504.2610, L100.0100 ####[facility] [address] [place], [address] Oncology Visit Reporton Oncology Visit Report [facility] CA 15-3on 08-27-2024 CA 15-3 32.1 U/mL Abnormal 0.0-25.0 [facility] Comment on above: Result Comment: [employer] Electrochemiluminescence Immunoassay(ECLIA)Values obtained with different assay methods or kits cannotbe used interchangeably. Results cannot be interpreted asabsolute evidence of the presence or absence of malignantdisease.Performed at: [email or web address] [facility] [employer] [id number] Director: Reese Willingham PhD, Phone: [phone] Performed By: #### L 3100.2300, L100.0100, L3100.5030, L3100.5040 ####[facility] [address], [address] CA 27.29on 08-27-2024 CA 27.29 28.3 U/mL Normal 0.0-38.6 [facility] Comment on above: Result Comment: Siem Net[employer]aur Immunochemiluminometric Methodology (ICMA)Values obtained with different assay methods or kits cannotbe used interchangeably. Results cannot be interpreted asabsolute evidence of the presence or absence of malignantdisease. Performed By: #### L 3100.2300, L100.0100, L3100.5030, L3100.5040 ####[facility] [address] [place], [place], [address] Carcinoembryonic Antigenon 1 10-28-2023 CEA 9.9 ng/mL High 0.0-4.7 [facility] Comment on above: Result Comment: Nons mokers <3.9 Smokers <5.6[employer] Electrochemiluminescence Immunoassay(ECLIA)Values obtained with different assay methods or kitscannot be used interchangeably. Results cannot beinterpreted as absolute evidence of the presence orabsence of malignant disease. Performed By: #### L 3100.2300, L100.0100, L3100.5030, L3100.5040 ####[facility] [address] [place], [address] CA 15-3Ordered By: Sultana dumont on 08-23-2024 CA 15-3 Antigen 32.1 U/mL High 0.0-25.0 [facility] Comment on above: [employer] El ectrochemiluminescence Immunoassay(ECLIA)Values obtained with different assay methods or kits cannotbe used interchangeably. Results cannot be interpreted asabsolute evidence of the presence or absence of malignantdisease.Performed at: [facility] [employer] [id number] Director: Reese Willingham PhD, Phone: [phone] CA 27.29Ordered By: Sultana butler on 08-23-2024 CA 27.29 28.3 U/mL 0.0-38.6 [facility] Comment on above: [employer]ens Centaur Immu nochemiluminometric Methodology (ICMA)Values obtained with different assay methods or kits cannotbe used interchangeably. Results cannot be interpreted asabsolute evidence of the presence or absence of malignantdisease. CBC W/Diff, Automatedon 08-12 SMEAR COMMENT SCANNED Normal [facility] Comment on above: Performed By: #### L 3100.2300, L100.0100, L3100.5030, L3100.5040 ####[facility] [address] [place], [address] Comprehensive Metabolic Prof ilon 08-23-2024 Albumin [Mass/Vol] 3.4 g/dL Normal 3.2-5.[address] [facility] Comment on above: Order Comment: 1 Performed By: #### L 500.4050, L504.2610 ####[facility] [address] [place], [address] Albumin/Globulin [Mass ratio] 0.9 {ratio} Normal 0.9-2.4 [facility] Comment on above: Order Comment: 1 Performed By: #### L 500.4050, L504.2610 ####[facility] [address] [place], [address] ALK P 118 U/L High 45-117 [facility] Comment on above: Order Comment: 1 Performed By: #### L 500.4050, L504.2610 ####[facility] [address] [place], [address] ALT [Catalytic activity/Vol] 48 U/L Normal 13-56 [facility] Comment on above: Order Comment: 1 Performed By: #### L 500.4050, L504.2610 ####[facility] [address] [place], [address] AST [Catalytic activity/Vol] 50 U/L High 15-37 [facility] Comment on above: Order Comment: 1 Performed By: #### L 500.4050, L504.2610 ####[facility] [address] [place], [address] Bilirubin [Mass/Vol] 0.50 mg/dL Normal 0.20-1.00 [facility] Comment on above: Order Comment: 1 Result Comment: For patients on eltrombopag therapy, use of Dimension [place] TBIL is not recommended. Performed By: #### L 500.4050, L504.2610 ####[facility] [address] [place], [address] BUN/CRE 14.8 RATIO Normal 10-20 [facility] Comment on above: Order Comment: 1 Performed By: #### L 500.4050, L504.2610 ####[facility] [address] [place], [address] CA,Total 9.9 mg/dL Normal 8.5-10.1 [facility] Comment on above: Order Comment: 1 Performed By: #### L 500.4050, L504.2610 ####[facility] [address] [place], [address] Chloride [Moles/Vol] 102 mmol/L Normal 98-107 [facility] Comment on above: Order Comment: 1 Performed By: #### L 500.4050, L504.2610 ####[facility] [address] [place], [address] CO2 [Moles/Vol] 29.0 mmol/L Normal 21.0-32.0 [facility] Comment on above: Order Comment: 1 Performed By: #### L 500.4050, L504.2610 ####[facility] [address] [place], [address] Creatinine [Mass/Vol] 1.35 mg/dL High 0.55-1.02 [facility] Comment on above: Order Comment: 1 Result Comment: The validity of the calculated GFR GFRAA in patients over70 years has not been determined. Clinical correlation isessential. Performed By: #### L 500.4050, L504.2610 ####[facility] [address] [place], [address] ECRCL 46.13 ml/min Normal [facility] Comment on above: Order Comment: 1 Performed By: #### L 500.4050, L504.2610 ####[facility] [address] [place], [address] EST GFR - AA 50 mL/min Low >60 [facility] Comment on above: Order Comment: 1 Result Comment: Afri can Slovak GFR Calc Performed By: #### L 500.4050, L504.2610 ####[facility] [address] [place], [address] GAP 8 Normal 5-15 [facility] Comment on above: Order Comment: 1 Performed By: #### L 500.4050, L504.2610 ####[facility] [address] [place], [address] GFR/1.73 sq M.predicted among non-blacks MDRD (S/P/Bld) [Vol rate/Area] 41 mL/min/{1.73_m2} Low >60 [facility] Comment on above: Order Comment: 1 Result Comment: Non- GFR Calc Performed By: #### L 500.4050, L504.2610 ####[facility] [address] [place], [address] Globulin (S) [Mass/Vol] 3.6 g/dL Normal 2.2-4.2 [facility] Comment on above: Order Comment: 1 Performed By: #### L 500.4050, L504.2610 ####[facility] [address] [place], [address] Glucose [Mass/Vol] 197 mg/dL High 74-[address] [facility] Comment on above: Order Comment: 1 Result Comment: Fast ing Glucose result greater than or equal to 126 mg/dLsuggests DIABETES MELLITUS per A.D.A. criteria. Performed By: #### L 500.4050, L504.2610 ####[facility] [address] [place], [address] Potassium [Moles/Vol] 4.3 mmol/L Normal 3.5-5.1 [facility] Comment on above: Order Comment: 1 Performed By: #### L 500.4050, L504.2610 ####[facility] [address] [place], [address] Sodium [Moles/Vol] 139 mmol/L Normal 136-[address] [facility] Comment on above: Order Comment: 1 Performed By: #### L 500.4050, L504.2610 ####[facility] [address] [place], [address] T PROT 7.0 g/dL Normal 6.4-8.2 [facility] Comment on above: Order Comment: 1 Performed By: #### L 500.4050, L504.2610 ####[facility] [address] [place], [address] Urea nitrogen [Mass/Vol] 20 mg/dL High 7-18 [facility] Comment on above: Order Comment: 1 Performed By: #### L 500.4050, L504.2610 ####[facility] [address] [place], [address] LDHon 08-23-2024 LDH 185 U/L Normal 84-246 [facility] Comment on above: Order Comment: 1 Performed By: #### L 500.4050, L504.2610 ####[facility] [address] [place], [address] Oncology Visit Reporton 08-12 Oncology Visit Report Normal [facility] CA 15-3on 07-28-2024 CA 15-3 30.4 U/mL Abnormal 0.0-25.0 [facility] Comment on above: Result Comment: [employer] Electrochemiluminescence Immunoassay(ECLIA)Values obtained with different assay methods or kits cannotbe used interchangeably. Results cannot be interpreted asabsolute evidence of the presence or absence of malignantdisease.Performed at: [facility] [address] [id number] Director: Reese Willingham PhD, Phone: [phone] Performed By: #### L 100.0100, L3100.5040, L3100.5030, L500.4050, L3100.2300 ####[facility] [address] [place], [address] CA 27.29on 07-28-2024 CA 27.29 28.1 U/mL Normal 0.0-38.6 [facility] Comment on above: Result Comment: [facility] [employer] Immunochemiluminometric Methodology (ICMA)Values obtained with different assay methods or kits cannotbe used interchangeably. Results cannot be interpreted asabsolute evidence of the presence or absence of malignantdisease. Performed By: #### L 100.0100, L3100.5040, L3100.5030, L500.4050, L3100.2300 ####[facility] [address] [place], [address] Carcinoembryonic Antigenon 09-27-2023 CEA 9.3 ng/mL High 0.0-4.7 [facility] Comment on above: Result Comment: Nons mokers <3.9 Smokers <5.6[employer] Electrochemiluminescence Immunoassay(ECLIA)Values obtained with different assay methods or kitscannot be used interchangeably. Results cannot beinterpreted as absolute evidence of the presence orabsence of malignant disease. Performed By: #### L 100.0100, L3100.5040, L3100.5030, L500.4050, L3100.2300 ####[facility] [address] [place], [address] CBC W/Diff, Automatedon 07-13 Absolute Lymph 1.01 X10 3/uL Normal 0.83-4.51 [facility] Comment on above: Performed By: #### L 100.0100, L3100.5040, L3100.5030, L500.4050, L3100.2300 ####[facility] [address] [place], [address] Absolute Neut 1.7 X10 3/uL Low 2.0-7.7 [facility] Comment on above: Performed By: #### L 100.0100, L3100.5040, L3100.5030, L500.4050, L3100.2300 ####[facility] [address] [place], [address] Basophils/100 WBC (Bld) 1.2 % High 0-1 [facility] Comment on above: Performed By: #### L 100.0100, L3100.5040, L3100.5030, L500.4050, L3100.2300 ####[facility] [address] [place], [address] Eosinophils/100 WBC (Bld) 4.9 % Normal 0-5 [facility] Comment on above: Performed By: #### L 100.0100, L3100.5040, L3100.5030, L500.4050, L3100.2300 ####[facility] [address] [place], [address] Erythrocyte distribution width (RBC) [Ratio] 14.0 % Normal 11.6-14.6 [facility] Comment on above: Performed By: #### L 100.0100, L3100.5040, L3100.5030, L500.4050, L3100.2300 ####[facility] [address] [place], [address] Hematocrit (Bld) [Volume fraction] 36.4 % Low 37-47 [facility] Comment on above: Performed By: #### L 100.0100, L3100.5040, L3100.5030, L500.4050, L3100.2300 ####[facility] [address] [place], [address] Hemoglobin (Bld) [Mass/Vol] 12.8 g/dL Normal 12.0-15.0 [facility] Comment on above: Performed By: #### L 100.0100, L3100.5040, L3100.5030, L500.4050, L3100.2300 ####[facility] [address] [place], [address] IG% 0.300 Normal 0.0-0.9 [facility] Comment on above: Result Comment: IG% - Immature Granulocytes (promyelocytes, myelocytes andmetamyelocytes) > 1% indicates that a LEFT SHIFT is Present. Performed By: #### L 100.0100, L3100.5040, L3100.5030, L500.4050, L3100.2300 ####[facility] [address] [place], [address] Lymphocytes/100 WBC (Bld) 31.1 % Normal 19-41 [facility] Comment on above: Performed By: #### L 100.0100, L3100.5040, L3100.5030, L500.4050, L3100.2300 ####[facility] [address] [place], [address] MCH (RBC) [Entitic mass] 36.4 pg High 27.0-32.0 [facility] Comment on above: Performed By: #### L 100.0100, L3100.5040, L3100.5030, L500.4050, L3100.2300 ####[facility] [address] [place], [address] MCHC (RBC) [Mass/Vol] 35.2 g/dL Normal 32-36 [facility] Comment on above: Performed By: #### L 100.0100, L3100.5040, L3100.5030, L500.4050, L3100.2300 ####[facility] [address] [place], [address] MCV (RBC) [Entitic vol] 103.4 fL High 81-99 [facility] Comment on above: Performed By: #### L 100.0100, L3100.5040, L3100.5030, L500.4050, L3100.2300 ####[facility] [address] [place], [address] Monocytes/100 WBC (Bld) 11.4 % High 0-10 [facility] Comment on above: Performed By: #### L 100.0100, L3100.5040, L3100.5030, L500.4050, L3100.2300 ####[facility] [address] [place], [address] Neutrophils/100 WBC (Bld) 51.1 % Normal 47-70 [facility] Comment on above: Performed By: #### L 100.0100, L3100.5040, L3100.5030, L500.4050, L3100.2300 ####[facility] [address] [place], [address] Nucleated RBC (Bld) [#/Vol] 0 10*3/uL Normal 0-5 [facility] Comment on above: Performed By: #### L 100.0100, L3100.5040, L3100.5030, L500.4050, L3100.2300 ####[facility] [address] [place], [address] Platelet mean volume (Bld) [Entitic vol] 9.7 fL Normal 6.2-12.0 [facility] Comment on above: Performed By: #### L 100.0100, L3100.5040, L3100.5030, L500.4050, L3100.2300 ####[facility] [address] [place], [address] Platelets (Bld) [#/Vol] 142 10*3/uL Low 150-450 [facility] Comment on above: Performed By: #### L 100.0100, L3100.5040, L3100.5030, L500.4050, L3100.2300 ####[facility] [address] [place], [address] RBC (Bld) [#/Vol] 3.52 10*6/uL Low 4.2-5.4 [facility] Comment on above: Performed By: #### L 100.0100, L3100.5040, L3100.5030, L500.4050, L3100.2300 ####[facility] [address] [place], [address] RDW SD 52.9 fl High 35.1-43.9 [facility] Comment on above: Performed By: #### L 100.0100, L3100.5040, L3100.5030, L500.4050, L3100.2300 ####[facility] [address] [place], [address] WBC (Bld) [#/Vol] 3.3 10*3/uL Low 4.4-11.[address] [facility] Comment on above: Performed By: #### L 100.0100, L3100.5040, L3100.5030, L500.4050, L3100.2300 ####[facility] [address] [place], [address] Comprehensive Metabolic Prof [facility] 07-26-2024 Albumin [Mass/Vol] 3.3 g/dL Normal 3.2-5.[address] [facility] Comment on above: Performed By: #### L 100.0100, L3100.5040, L3100.5030, L500.4050, L3100.2300 ####[facility] [address] [place], [address] Albumin/Globulin [Mass ratio] 1.0 {ratio} Normal 0.9-2.4 [facility] Comment on above: Performed By: #### L 100.0100, L3100.5040, L3100.5030, L500.4050, L3100.2300 ####[facility] [address] [place], [address] ALK P 138 U/L High 45-117 [facility] Comment on above: Performed By: #### L 100.0100, L3100.5040, L3100.5030, L500.4050, L3100.2300 ####[facility] [address] [place], [address] ALT [Catalytic activity/Vol] 58 U/L High 13-56 [facility] Comment on above: Performed By: #### L 100.0100, L3100.5040, L3100.5030, L500.4050, L3100.2300 ####[facility] [address] [place], [address] AST [Catalytic activity/Vol] 78 U/L High 15-37 [facility] Comment on above: Performed By: #### L 100.0100, L3100.5040, L3100.5030, L500.4050, L3100.2300 ####[facility] [address] [place], [address] Bilirubin [Mass/Vol] 0.50 mg/dL Normal 0.20-1.00 [facility] Comment on above: Result Comment: For patients on eltrombopag therapy, use of Dimension [place] TBIL is not recommended. Performed By: #### L 100.0100, L3100.5040, L3100.5030, L500.4050, L3100.2300 ####[facility] [address] [place], [address] BUN/CRE 19.8 RATIO Normal 10-20 [facility] Comment on above: Performed By: #### L 100.0100, L3100.5040, L3100.5030, L500.4050, L3100.2300 ####[facility] [address] [place], [address] CA,Total 9.3 mg/dL Normal 8.5-10.1 [facility] Comment on above: Performed By: #### L 100.0100, L3100.5040, L3100.5030, L500.4050, L3100.2300 ####[facility] [address] [place], [address] Chloride [Moles/Vol] 104 mmol/L Normal 98-107 [facility] Comment on above: Performed By: #### L 100.0100, L3100.5040, L3100.5030, L500.4050, L3100.2300 ####[facility] [address] [place], [address] CO2 [Moles/Vol] 28.0 mmol/L Normal 21.0-32.0 [facility] Comment on above: Performed By: #### L 100.0100, L3100.5040, L3100.5030, L500.4050, L3100.2300 ####[facility] [address] [place], [address] Creatinine [Mass/Vol] 1.11 mg/dL High 0.55-1.02 [facility] Comment on above: Result Comment: The validity of the calculated GFR GFRAA in patients over70 years has not been determined. Clinical correlation isessential. Performed By: #### L 100.0100, L3100.5040, L3100.5030, L500.4050, L3100.2300 ####[facility] [address] [place], [address] ECRCL 55.94 ml/min Normal [facility] Comment on above: Performed By: #### L 100.0100, L3100.5040, L3100.5030, L500.4050, L3100.2300 ####[facility] [address] [place], [address] EST GFR - AA 62 mL/min Normal >60 [facility] Comment on above: Result Comment: Afri can Slovak GFR Calc Performed By: #### L 100.0100, L3100.5040, L3100.5030, L500.4050, L3100.2300 ####[facility] [address] [place], [address] GAP 6 Normal 5-15 [facility] Comment on above: Performed By: #### L 100.0100, L3100.5040, L3100.5030, L500.4050, L3100.2300 ####[facility] [address] [place], [address] GFR/1.73 sq M.predicted among non-blacks MDRD (S/P/Bld) [Vol rate/Area] 51 mL/min/{1.73_m2} Low >60 [facility] Comment on above: Result Comment: Non- GFR Calc Performed By: #### L 100.0100, L3100.5040, L3100.5030, L500.4050, L3100.2300 ####[facility] [address] [place], [address] Globulin (S) [Mass/Vol] 3.4 g/dL Normal 2.2-4.2 [facility] Comment on above: Performed By: #### L 100.0100, L3100.5040, L3100.5030, L500.4050, L3100.2300 ####[facility] [address] [place], [address] Glucose [Mass/Vol] 235 mg/dL High 74-[address] [facility] Comment on above: Result Comment: Gluc ose result greater than or equal to 200 mg/dLsuggests DIABETES MELLITUS per A.D.A. criteria. Performed By: #### L 100.0100, L3100.5040, L3100.5030, L500.4050, L3100.2300 ####[facility] [address] [place], [address] Potassium [Moles/Vol] 3.7 mmol/L Normal 3.5-5.1 [facility] Comment on above: Performed By: #### L 100.0100, L3100.5040, L3100.5030, L500.4050, L3100.2300 ####[facility] [address] [place], [address] Sodium [Moles/Vol] 138 mmol/L Normal 136-[address] [facility] Comment on above: Performed By: #### L 100.0100, L3100.5040, L3100.5030, L500.4050, L3100.2300 ####[facility] [address] [place], [address] T PROT 6.7 g/dL Normal 6.4-8.2 [facility] Comment on above: Performed By: #### L 100.0100, L3100.5040, L3100.5030, L500.4050, L3100.2300 ####[facility] [address] [place], [address] Urea nitrogen [Mass/Vol] 22 mg/dL High 7-18 [facility] Comment on above: Performed By: #### L 100.0100, L3100.5040, L3100.5030, L500.4050, L3100.2300 ####[facility] [address] [place], [address] Oncology Visit Reporton 07-13 Oncology Visit Report Normal [facility] CBC W/Diff, Automatedon 06-12 Absolute Lymph 1.28 X10 3/uL Normal 0.83-4.51 [facility] Comment on above: Performed By: #### L 100.0100 ####[facility] [address] [place], [address] Absolute Neut 1.4 X10 3/uL Low 2.0-7.7 [facility] Comment on above: Performed By: #### L 100.0100 ####[facility] [address] [place], [address] Basophils/100 WBC (Bld) 2.4 % High 0-1 [facility] Comment on above: Performed By: #### L 100.0100 ####[facility] [address] [place], [address] Eosinophils/100 WBC (Bld) 2.6 % Normal 0-5 [facility] Comment on above: Performed By: #### L 100.0100 ####[facility] [address] [place], [address] Erythrocyte distribution width (RBC) [Ratio] 14.0 % Normal 11.6-14.6 [facility] Comment on above: Performed By: #### L 100.0100 ####[facility] [address] [place], [address] Hematocrit (Bld) [Volume fraction] 37.3 % Normal 37-47 [facility] Comment on above: Performed By: #### L 100.0100 ####[facility] [address] [place], [address] Hemoglobin (Bld) [Mass/Vol] 13.0 g/dL Normal 12.0-15.0 [facility] Comment on above: Performed By: #### L 100.0100 ####[facility] [address] [place], [address] IG% 0.600 Normal 0.0-0.9 [facility] Comment on above: Result Comment: IG% - Immature Granulocytes (promyelocytes, myelocytes andmetamyelocytes) > 1% indicates that a LEFT SHIFT is Present. Performed By: #### L 100.0100 ####[facility] [address] [place], [address] Lymphocytes/100 WBC (Bld) 37.6 % Normal 19-41 [facility] Comment on above: Performed By: #### L 100.0100 ####[facility] [address] [place], [address] MCH (RBC) [Entitic mass] 36.0 pg High 27.0-32.0 [facility] Comment on above: Performed By: #### L 100.0100 ####[facility] [address] [place], [address] MCHC (RBC) [Mass/Vol] 34.9 g/dL Normal 32-36 [facility] Comment on above: Performed By: #### L 100.0100 ####[facility] [address] [place], [address] MCV (RBC) [Entitic vol] 103.3 fL High 81-99 [facility] Comment on above: Performed By: #### L 100.0100 ####[facility] [address] [place], [address] Monocytes/100 WBC (Bld) 15.6 % High 0-10 [facility] Comment on above: Performed By: #### L 100.0100 ####[facility] [address] [place], [address] Neutrophils/100 WBC (Bld) 41.2 % Low 47-70 [facility] Comment on above: Performed By: #### L 100.0100 ####[facility] [address] [place], [address] Nucleated RBC (Bld) [#/Vol] 0.9 10*3/uL Normal 0-5 [facility] Comment on above: Performed By: #### L 100.0100 ####[facility] [address] [place], [address] Platelet mean volume (Bld) [Entitic vol] 10.3 fL Normal 6.2-12.0 [facility] Comment on above: Performed By: #### L 100.0100 ####[facility] [address] [place], [address] Platelets (Bld) [#/Vol] 180 10*3/uL Normal 150-450 [facility] Comment on above: Performed By: #### L 100.0100 ####[facility] [address] [place], [address] RBC (Bld) [#/Vol] 3.61 10*6/uL Low 4.2-5.4 [facility] Comment on above: Performed By: #### L 100.0100 ####[facility] [address] [place], [address] RDW SD 53.5 fl High 35.1-43.9 [facility] Comment on above: Performed By: #### L 100.0100 ####[facility] [address] [place], [address] WBC (Bld) [#/Vol] 3.4 10*3/uL Low 4.4-11.[address] [facility] Comment on above: Performed By: #### L 100.0100 ####[facility] [address] [place], [address] Oncology Visit Reporton 06-12 Oncology Visit Report [facility] CA 15-3on 06-23-2024 CA 15-3 35.3 U/mL Abnormal 0.0-25.0 [facility] Comment on above: Order Comment: PLEANMOL E ADD ON TO EXTRA SST TUBE, BW FROM 06 21 24 Result Comment: [employer] Electrochemiluminescence Immunoassay(ECLIA)Values obtained with different assay methods or kits cannotbe used interchangeably. Results cannot be interpreted asabsolute evidence of the presence or absence of malignantdisease.Performed at: [address] [id number] Director: Reese Willingham PhD, Phone: [phone] Performed By: #### L 3100.5040, L3100.2300, L3100.5030 ####[facility] [address] [place], [address] CA 27.29on 06-23-2024 CA 27.29 30.9 U/mL Normal 0.0-38.6 [facility] Comment on above: Order Comment: PLEAS E ADD ON TO EXTRA SST TUBE, BW FROM 06 21 24 Result Comment: [employer] Immunochemiluminometric Methodology (ICMA)Values obtained with different assay methods or kits cannotbe used interchangeably. Results cannot be interpreted asabsolute evidence of the presence or absence of malignantdisease. Performed By: #### L 3100.5040, L3100.2300, L3100.5030 ####[facility] [address] [place], [address] Carcinoembryonic Antigenon CEA 8.8 ng/mL High 0.0-4.7 [facility] Comment on above: Order Comment: PLEAS E ADD ON TO EXTRA SST TUBE, BW FROM 06 21 24 Result Comment: Nons mokers <3.9 Smokers <5.6[employer] Electrochemiluminescence Immunoassay(ECLIA)Values obtained with different assay methods or kitscannot be used interchangeably. Results cannot beinterpreted as absolute evidence of the presence orabsence of malignant disease. Performed By: #### L 3100.5040, L3100.2300, L3100.5030 ####[facility] [address] [place], [address] CBC W/Diff, Automatedon 06-12 Absolute Lymph 0.74 X10 3/uL Low 0.83-4.51 [facility] Comment on above: Performed By: #### L 504.2610, L100.0100, L500.4050 ####[facility] [address] [place], [address] Absolute Neut 0.9 X10 3/uL Low 2.0-7.7 [facility] Comment on above: Performed By: #### L 504.2610, L100.0100, L500.4050 ####[facility] [address] [place], [address] Basophils/100 WBC (Bld) 1.5 % High 0-1 [facility] Comment on above: Performed By: #### L 504.2610, L100.0100, L500.4050 ####[facility] [address] [place], [address] Eosinophils/100 WBC (Bld) 2.5 % Normal 0-5 [facility] Comment on above: Performed By: #### L 504.2610, L100.0100, L500.4050 ####[facility] [address] [place], [address] Erythrocyte distribution width (RBC) [Ratio] 14.9 % High 11.6-14.6 [facility] Comment on above: Performed By: #### L 504.2610, L100.0100, L500.4050 ####[facility] [address] [place], [address] Hematocrit (Bld) [Volume fraction] 37.5 % Normal 37-47 [facility] Comment on above: Performed By: #### L 504.2610, L100.0100, L500.4050 ####[facility] [address] [place], [address] Hemoglobin (Bld) [Mass/Vol] 13.0 g/dL Normal 12.0-15.0 [facility] Comment on above: Performed By: #### L 504.2610, L100.0100, L500.4050 ####[facility] [address] [place], [address] IG% 0.500 Normal 0.0-0.9 [facility] Comment on above: Result Comment: IG% - Immature Granulocytes (promyelocytes, myelocytes andmetamyelocytes) > 1% indicates that a LEFT SHIFT is Present. Performed By: #### L 504.2610, L100.0100, L500.4050 ####[facility] [address] [place], [address] Lymphocytes/100 WBC (Bld) 37.0 % Normal 19-41 [facility] Comment on above: Performed By: #### L 504.2610, L100.0100, L500.4050 ####[facility] [address] [place], [address] MCH (RBC) [Entitic mass] 36.4 pg High 27.0-32.0 [facility] Comment on above: Performed By: #### L 504.2610, L100.0100, L500.4050 ####[facility] [address] [place], [address] MCHC (RBC) [Mass/Vol] 34.7 g/dL Normal 32-36 [facility] Comment on above: Performed By: #### L 504.2610, L100.0100, L500.4050 ####[facility] [address] [place], [address] MCV (RBC) [Entitic vol] 105.0 fL High 81-99 [facility] Comment on above: Performed By: #### L 504.2610, L100.0100, L500.4050 ####[facility] [address] [place], [address] Monocytes/100 WBC (Bld) 16.0 % High 0-10 [facility] Comment on above: Performed By: #### L 504.2610, L100.0100, L500.4050 ####[facility] [address] [place], [address] Neutrophils/100 WBC (Bld) 42.5 % Low 47-70 [facility] Comment on above: Performed By: #### L 504.2610, L100.0100, L500.4050 ####[facility] [address] [place], [address] Nucleated RBC (Bld) [#/Vol] 0 10*3/uL Normal 0-5 [facility] Comment on above: Performed By: #### L 504.2610, L100.0100, L500.4050 ####[facility] [address] [place], [address] Platelet mean volume (Bld) [Entitic vol] 9.8 fL Normal 6.2-12.0 [facility] Comment on above: Performed By: #### L 504.2610, L100.0100, L500.4050 ####[facility] [address] [place], [address] Platelets (Bld) [#/Vol] 150 10*3/uL Normal 150-450 [facility] Comment on above: Performed By: #### L 504.2610, L100.0100, L500.4050 ####[facility] [address] [place], [address] RBC (Bld) [#/Vol] 3.57 10*6/uL Low 4.2-5.4 [facility] Comment on above: Performed By: #### L 504.2610, L100.0100, L500.4050 ####[facility] [address] [place], [address] RDW SD 57.4 fl High 35.1-43.9 [facility] Comment on above: Performed By: #### L 504.2610, L100.0100, L500.4050 ####[facility] [address] [place], [address] WBC (Bld) [#/Vol] 2.0 10*3/uL Low 4.4-11.[address] [facility] Comment on above: Performed By: #### L 504.2610, L100.0100, L500.4050 ####[facility] [address] [place], [address] Comprehensive Metabolic Prof ilon 06-21-2024 Albumin [Mass/Vol] 3.5 g/dL Normal 3.2-5.[address] [facility] Comment on above: Order Comment: 1 Performed By: #### L 504.2610, L100.0100, L500.4050 ####[facility] [address] [place], [address] Albumin/Globulin [Mass ratio] 1.0 {ratio} Normal 0.9-2.4 [facility] Comment on above: Order Comment: 1 Performed By: #### L 504.2610, L100.0100, L500.4050 ####[facility] [address] [place], [address] ALK P 149 U/L High 45-117 [facility] Comment on above: Order Comment: 1 Performed By: #### L 504.2610, L100.0100, L500.4050 ####[facility] [address] [place], [address] ALT [Catalytic activity/Vol] 64 U/L High 13-56 [facility] Comment on above: Order Comment: 1 Performed By: #### L 504.2610, L100.0100, L500.4050 ####[facility] [address] [place], [address] AST [Catalytic activity/Vol] 106 U/L High 15-37 [facility] Comment on above: Order Comment: 1 Performed By: #### L 504.2610, L100.0100, L500.4050 ####[facility] [address] [place], [address] Bilirubin [Mass/Vol] 0.70 mg/dL Normal 0.20-1.00 [facility] Comment on above: Order Comment: 1 Result Comment: For patients on eltrombopag therapy, use of Dimension [place] TBIL is not recommended. Performed By: #### L 504.2610, L100.0100, L500.4050 ####[facility] [address] [place], [address] BUN/CRE 15.9 RATIO Normal 10-20 [facility] Comment on above: Order Comment: 1 Performed By: #### L 504.2610, L100.0100, L500.4050 ####[facility] [address] [place], [address] CA,Total 9.8 mg/dL Normal 8.5-10.1 [facility] Comment on above: Order Comment: 1 Performed By: #### L 504.2610, L100.0100, L500.4050 ####[facility] [address] [place], [address] Chloride [Moles/Vol] 102 mmol/L Normal 98-107 [facility] Comment on above: Order Comment: 1 Performed By: #### L 504.2610, L100.0100, L500.4050 ####[facility] [address] [place], [address] CO2 [Moles/Vol] 28.0 mmol/L Normal 21.0-32.0 [facility] Comment on above: Order Comment: 1 Performed By: #### L 504.2610, L100.0100, L500.4050 ####[facility] [address] [place], [address] Creatinine [Mass/Vol] 1.32 mg/dL High 0.55-1.02 [facility] Comment on above: Order Comment: 1 Result Comment: The validity of the calculated GFR GFRAA in patients over70 years has not been determined. Clinical correlation isessential. Performed By: #### L 504.2610, L100.0100, L500.4050 ####[facility] [address] [place], [address] ECRCL 46.72 ml/min Normal [facility] Comment on above: Order Comment: 1 Performed By: #### L 504.2610, L100.0100, L500.4050 ####[facility] [address] [place], [address] EST GFR - AA 51 mL/min Low >60 [facility] Comment on above: Order Comment: 1 Result Comment: Afri can Slovak GFR Calc Performed By: #### L 504.2610, L100.0100, L500.4050 ####[facility] [address] [place], [address] GAP 9 Normal 5-15 [facility] Comment on above: Order Comment: 1 Performed By: #### L 504.2610, L100.0100, L500.4050 ####[facility] [address] [place], [address] GFR/1.73 sq M.predicted among non-blacks MDRD (S/P/Bld) [Vol rate/Area] 42 mL/min/{1.73_m2} Low >60 [facility] Comment on above: Order Comment: 1 Result Comment: Non- GFR Calc Performed By: #### L 504.2610, L100.0100, L500.4050 ####[facility] [address] [place], [address] Globulin (S) [Mass/Vol] 3.6 g/dL Normal 2.2-4.2 [facility] Comment on above: Order Comment: 1 Performed By: #### L 504.2610, L100.0100, L500.4050 ####[facility] [address] [place], [address] Glucose [Mass/Vol] 268 mg/dL High 74-[address] [facility] Comment on above: Order Comment: 1 Result Comment: Gluc ose result greater than or equal to 200 mg/dLsuggests DIABETES MELLITUS per A.D.A. criteria. Performed By: #### L 504.2610, L100.0100, L500.4050 ####[facility] [address] [place], [address] Potassium [Moles/Vol] 4.1 mmol/L Normal 3.5-5.1 [facility] Comment on above: Order Comment: 1 Performed By: #### L 504.2610, L100.0100, L500.4050 ####[facility] [address] [place], [address] Sodium [Moles/Vol] 139 mmol/L Normal 136-[address] [facility] Comment on above: Order Comment: 1 Performed By: #### L 504.2610, L100.0100, L500.4050 ####[facility] [address] [place], [address] T PROT 7.1 g/dL Normal 6.4-8.2 [facility] Comment on above: Order Comment: 1 Performed By: #### L 504.2610, L100.0100, L500.4050 ####[facility] [address] [place], [address] Urea nitrogen [Mass/Vol] 21 mg/dL High 7-18 [facility] Comment on above: Order Comment: 1 Performed By: #### L 504.2610, L100.0100, L500.4050 ####[facility] [address] [place], [address] LDHon 06-21-2024 LDH 223 U/L Normal 84-246 [facility] Comment on above: Order Comment: 1 Performed By: #### L 504.2610, L100.0100, L500.4050 ####[facility] [address], [address] Oncology Visit Reporton 10 Oncology Visit Report [facility] Cancer antigen 125 (CA-125) measurementOrdered By: Myron Calvillo on 02-28-2024 CA 125 Antigen 27.2 U/mL 0.0-38.1 [facility] Comment on above: [employer] El ectrochemiluminescence Immunoassay(ECLIA)Values obtained with different assay methods or kits cannotbe used interchangeably. Results cannot be interpreted asabsolute evidence of the presence or absence of malignantdisease. Cancer antigen 125 (CA-125) measurement 27.2 U/mL 0.0-38.1 [facility] Comment on above: [employer] El ectrochemiluminescence Immunoassay(ECLIA)Values obtained with different assay methods or kits cannotbe used interchangeably. Results cannot be interpreted asabsolute evidence of the presence or absence of malignantdisease. Reactive lymphocyte countOrd ered By: Sultana Finn on 01-03-2024 Reactive Lymphocytes 1+ [facility] Basophil percentageOrdered B y: Adolfo Aguirre on 12-08-2023 Cholesterol [Mass/Vol] 138 mg/dL <200 [facility] Comment on above: <200 mg/dL Desirable 200-240 mg/dL Borderline >240 mg/dL High Risk Triglyceride [Mass/Vol] 156 mg/dL <199 [facility] Comment on above: The drugs N-Acetylcy steine and Metamizole may falsely depress this assay.Serum Triglycerides Reference Interval Normal <150 mg/dL Borderline high 150 - 199 mg/dL High 200 - 499 mg/dL Very High > or = 500 mg/dL Laboratory - Chemistry and C hemistry - challengeOrdered By: Adolfo Aguirre on 12-08-2023 Cholesterol in HDL [Mass/Vol] 51 mg/dL >40 [facility] Comment on above: The drugs N-Acetylcy steine and Metamizole may falsely depress this assay. Reference Range HDL <40 mg/dL Low HDL Cholesterol HDL >or= 60 mg/dL High HDL Cholesterol Cholesterol in LDL [Mass/Vol] 56 mg/dL 0-130 [facility] No Panel InformationOrdered By: Adolfo Aguirre on 12-08-2023 Vitamin D 25-Hydroxy 114.8 ng/mL [facility] Comment on above: Vitamin D 25(OH) Sta tus Range Deficiency <20 ng/mL (50nmol/L) Insufficiency 20 - 30 ng/mL (50 - 75 nmol/L) Sufficiency 30 - 100 ng/mL (75 - 250 nmol/L) Toxicity >100 ng/mL (>250 nmol/L)Evidence suggests that patients undergoing fluorescein dye angiography can retain small amounts of fluorescein in the body for up to 48 to 72 hours post-treatment. In the cases of patients with renal insufficiency, retention could be much longer. Samples containing fluorescein can produce falsely elevated values when tested with the [employer] Centaur Vitamin D assay. With fluorescein interference, observed Vitamin D values can be as high as >150 ng/mL (>375 nmol/L). Samples should be resubmitted post fluorescein clearance to ensure there is no interference with Vitamin D test results. VLDL Cholesterol 31 mg/dL 5-40 [facility] Serum or plasma thyroid stim ulating hormone (TSH) measurement (units/volume)Ordered By: Adolfo Aguirre on 12-08-2023 TSH Qn 1.02 uIU/mL 0.358-3.74 [facility] Absolute lymphocyte countOrd ered By: Myron Calvillo on 11-29-2023 Lymphocytes Auto (Unsp spec) [#/Vol] 0.74 10*3/uL 0.83-4.51 [facility] Automated lymphocyte count a s percentage of total leukocytesOrdered By: Myron Calvillo on 11-29-2023 Lymphocytes/100 WBC Auto (Unsp spec) 28.5 % 19-41 [facility] Basophil percentageOrdered B y: Myron Calvillo on 11-29-2023 Basophil percentage 3.8 mg/dL 2.5-4.9 [facility] Basophils/100 WBC (Bld) 1.9 % 0-1 [facility] Bilirubin [Mass/Vol] 0.60 mg/dL 0.20-1.00 [facility] Comment on above: For patients on eltr ombopag therapy, use of Dimension [place] TBIL is not recommended. Chloride [Moles/Vol] 102 mmol/L 98-107 [facility] Eosinophils/100 WBC (Bld) 1.9 % 0-5 [facility] Glucose [Mass/Vol] 160 mg/dL 74-[address] [facility] Comment on above: Fasting Glucose resu lt greater than or equal to 126 mg/dL suggests DIABETES MELLITUS per A.D.A. criteria. Hemoglobin (Bld) [Mass/Vol] 12.6 g/dL 12.0-15.0 [facility] LDH [Catalytic activity/Vol] 196 U/L 84-246 [facility] Monocytes/100 WBC (Bld) 16.9 % 0-10 [facility] Neutrophils (Bld) [#/Vol] 1.3 10*3/uL 2.0-7.7 [facility] Neutrophils/100 WBC (Bld) 50.4 % 47-70 [facility] Potassium [Moles/Vol] 3.9 mmol/L 3.5-5.1 [facility] Protein [Mass/Vol] 6.8 g/dL 6.4-8.[address] [facility] Sodium [Moles/Vol] 138 mmol/L 136-[address] [facility] WBC (Bld) [#/Vol] 2.6 10*3/uL 4.4-11.[address] [facility] Determination of erythrocyte mean corpuscular volume (MCV)Ordered By: Myron Calvillo on 11-29-2023 MCV (RBC) [Entitic vol] 102.7 fL 81-99 [facility] Erythrocyte distribution wid th ratioOrdered By: Myron Calvillo on 11-29-2023 Erythrocyte distribution width (RBC) [Ratio] 14.0 % 11.6-14.6 [facility] Erythrocyte distribution wid th standard deviationOrdered By: Myron Calvillo on 11-29-2023 Erythrocyte distribution width (RBC) [Entitic vol] 52.4 fL 35.1-43.9 [facility] Hematocrit Auto (Bld) [Volum e fraction]Ordered By: Myron Calvillo on 11-29-2023 Hematocrit (Bld) [Volume fraction] 37.6 % 37-47 [facility] Immature granulocytes/100 WB C Auto (Bld)Ordered By: Myron Calvillo on 11-29-2023 Immature granulocytes/100 WBC (Bld) 0.400 % 0.0-0.9 [facility] Comment on above: IG% - Immature Granu locytes (promyelocytes, myelocytes and metamyelocytes) > 1% indicates that a LEFT SHIFT is Present. Laboratory - Chemistry and C hemistry - challengeOrdered By: Myron Calvillo on 11-29-2023 Albumin/Globulin [Mass ratio] 1.0 {ratio} 0.9-2.4 [facility] ALP [Catalytic activity/Vol] 108 U/L 45-117 [facility] ALT [Catalytic activity/Vol] 56 U/L 13-56 [facility] CO2 [Moles/Vol] 28.0 mmol/L 21.0-32.0 [facility] Globulin (S) [Mass/Vol] 3.4 g/dL 2.2-4.2 [facility] Urea nitrogen/Creatinine [Mass ratio] 13.9 mg/mg 10-20 [facility] Laboratory - Hematology and Cell countsOrdered By: Myron Calvillo on 11-29-2023 MCH (RBC) [Entitic mass] 34.4 pg 27.0-32.0 [facility] MCHC (RBC) [Mass/Vol] 33.5 g/dL 32-36 [facility] Nucleated RBC/100 WBC (Bld) [Ratio] 0 % 0-5 [facility] Platelet mean volume (Bld) [Entitic vol] 9.9 fL 6.2-12.0 [facility] Platelets (Bld) [#/Vol] 155 10*3/uL 150-450 [facility] Magnesium measurementOrdered By: Myron Calvillo on 11-29-2023 Magnesium [Mass/Vol] 1.5 mg/dL Low 1.6-2.6 [facility] No Panel InformationOrdered By: Myron Calvillo on 11-29-2023 Estimated Creatinine Clearance Calc 58.61 ml/min [facility] Estimated GFR (MDRD) Amer 64 mL/min >60 [facility] Comment on above: GFR Calc Estimated GFR (MDRD) Non-Af Amer 53 mL/min >60 [facility] Comment on above: Non- GFR Calc Phosphorus measurementOrdere d By: Myron Calvillo on 11-29-2023 Phosphorus Level 3.8 mg/dL 2.5-4.9 [facility] RBC Auto (Bld) [#/Vol]Ordere d By: Myron Calvillo on 11-29-2023 RBC (Bld) [#/Vol] 3.66 10*6/uL 4.2-5.4 [facility] Serum or plasma calcium amanda urement (mass/volume)Ordered By: Myron Calvillo on 11-29-2023 Calcium [Mass/Vol] 9.7 mg/dL 8.5-10.[address] [facility] Serum or plasma creatinine m easurement (mass/volume)Ordered By: Myron Calvillo on 11-29-2023 Creatinine [Mass/Vol] 1.08 mg/dL 0.55-1.02 [facility] Comment on above: The validity of the calculated GFR & GFRAA in patients over 70 years has not been determined. Clinical correlation is essential. Serum or plasma urea nitroge n measurement (mass/volume)Ordered By: Myron Calvillo on 11-29-2023 Urea nitrogen [Mass/Vol] 15 mg/dL 7-18 [facility] Thin prep Papanicolaou smear with manual screeningOrdered By: Myron Calvillo on 11-29-2023 Thin prep Papanicolaou smear with manual screening 3.4 g/dL 3.2-5.0 [facility] Thin prep Papanicolaou smear with manual screening 76 U/L 15-37 [facility] Center Thin prep Papanicolaou smear with manual screening 8 5-15 [facility] Pathologist review Marcial (Unsp spec) [Interp]Ordered By: Myron Calvillo on 11-22-2023 Differential Pathologist's Review Reviewed [facility] Comment on above: Previous reported re sult: May foll Edited by: RGOOD on 11/25/23:1256Pancytopenia.Leukopenia and Neutropenia.Macrocytic anemia.Mild ThrombocytopeniaClinical correlation necessary.Iam Mcclure M.D. 11/25/23 AMENDED REPORT 11/25/23 [id number] PATH REV previously reported as: January zaheer Review by pathologistOrdered By: Myron Calvillo on 11-22-2023 Pathologist review Marcial (Unsp spec) [Interp] Reviewed [facility] Comment on above: Previous reported re sult: May foll Edited by: RGOOD on 11/25/23:1256Pancytopenia.Leukopenia and Neutropenia.Macrocytic anemia.Mild ThrombocytopeniaClinical correlation necessary.Iam Mcclure M.D. 11/25/23 AMENDED REPORT 11/25/23 1256 PATH REV previously reported as: Anastasia schwab Basophil percentageOrdered B y: Myron Calvillo on 10-25-2023 Basophil percentage 5-10 SEEN /hpf 0-5 [facility] Bilirubin Test strip Ql (U)O rdered By: Myron Calvillo on 10-25-2023 Bilirubin Ql (U) Negative Negative [facility] Culture, urineOrdered By: Destinee Calvillo on 10-25-2023 Bacteria identified Cx Nom (U) Klebsiella pneumoniae sp pneum Abnormal [facility] Epithelial cells.squamous LM Ql (Urine sed)Ordered By: Myron Calvillo on 10-25-2023 Epithelial cells.squamous LM.HPF (Urine sed) [#/Area] 0 /[HPF] 5-10 [facility] Glucose Ql (U)Ordered By: Destinee Calvillo on 10-25-2023 Glucose (U) [Mass/Vol] 1000 mg/dL High Normal [facility] Ketones Test strip Ql (U)Ord ered By: Myron Calvillo on 10-25-2023 Ketones Ql (U) Negative Negative [facility] Mucus LM Ql (Urine sed)Order ed By: Myron Calvillo on 10-25-2023 Mucus Ql (Urine sed) 0 SEEN /hpf [facility] Nitrite Test strip Ql (U)Ord ered By: Myron Calvillo on 10-25-2023 Nitrite Ql (U) Negative Negative [facility] No Panel InformationOrdered By: Myron Calvillo on 10-25-2023 Urine RBC 0 SEEN /hpf 0-5 [facility] Protein Test strip Ql (U)Ord ered By: Myron Calvillo on 10-25-2023 Protein Ql (U) Negative Negative [facility] RBC Ql (U)Ordered By: Myron Calvillo on 10-25-2023 Urine Occult Blood 10 /ul High Negative [facility] Squamous epithelial cells de tection in urine sediment by light microscopyOrdered By: Myron Calvillo on 10-25-2023 Epithelial cells.squamous LM Ql (Urine sed) 0-5 SEEN /hpf 5-10 [facility] Trichomonas screening testOr dered By: Myron Calvillo on 10-25-2023 Urine WBC 5-10 SEEN /hpf 0-5 [facility] Urine blood detectionOrdered By: Myron Calvillo on 10-25-2023 RBC Ql (U) 10 /ul High Negative [facility] Urine clarityOrdered By: Kavon Calvillo on 10-25-2023 Clarity (U) Clear Clear [facility] Urine color determinationOrd ered By: Myron Calvillo on 10-25-2023 Color (U) Yellow Yellow [facility] Urine glucose detectionOrder ed By: Myron Calvillo on 10-25-2023 Glucose Ql (U) 1000 mg/dl High Normal [facility] Urine leukocyte esterase det ection by dipstickOrdered By: Myron Calvillo on 10-25-2023 Leukocyte esterase Test strip Ql (U) 100 /ul High Negative [facility] Urine pHOrdered By: Myron arias on 10-25-2023 pH (U) 6.0 [pH] 5.0 - 8.0 [facility] Urine sediment bacteria coun t by microscopy (number/high power field)Ordered By: Myron Calvillo on 10-25-2023 Bacteria LM.HPF (Urine sed) [#/Area] 2 /[HPF] None Seen [facility] Urine specific gravity measu rementOrdered By: Myron Calvillo on 10-25-2023 Specific gravity (U) [Rel density] 1.015 1.002-1.030 [facility] Urine urobilinogen measureme ntOrdered By: Myron Calvillo on 10-25-2023 Urobilinogen Ql (U) Normal mg/dl Normal [facility] Urobilinogen Ql (U)Ordered B y: Myron Calvillo on 10-25-2023 Urine Urobilinogen Normal mg/dl Normal [facility] No Panel InformationOrdered By: Myron Calvillo on 09-27-2023 CA 15-3 Antigen 27.8 U/mL 0.0-25.0 [facility] Comment on above: [employer] El ectrochemiluminescence Immunoassay(ECLIA)Values obtained with different assay methods or kits cannotbe used interchangeably. Results cannot be interpreted asabsolute evidence of the presence or absence of malignantdisease.Performed at: [facility] [place], [place] [id number] Director: Reese Willingham PhD, Phone: [phone] CA 27.29 22.7 U/mL 0.0-38.6 [facility] Comment on above: [employer] Immu nochemiluminometric Methodology (ICMA)Values obtained with different assay methods or kits cannotbe used interchangeably. Results cannot be interpreted asabsolute evidence of the presence or absence of malignantdisease. Absolute lymphocyte countOrd ered By: Sultana Finn on 07-05-2023 Lymphocytes Auto (Unsp spec) [#/Vol] 1.04 10*3/uL 0.83-4.51 [facility] Basophil percentageOrdered B y: Sultana Finn on 07-05-2023 Basophils/100 WBC (Bld) 1.9 % 0-1 [facility] Eosinophils/100 WBC (Bld) 4.1 % 0-5 [facility] Neutrophils (Bld) [#/Vol] 1.1 10*3/uL 2.0-7.7 [facility] Neutrophils/100 WBC (Bld) 40.4 % 47-70 [facility] WBC (Bld) [#/Vol] 2.7 10*3/uL 4.4-11.[address] [facility] Blood erythrocytes count (nu mber/volume)Ordered By: Sultana Finn on 07-05-2023 RBC (Bld) [#/Vol] 3.48 10*6/uL 4.2-5.4 [facility] Blood hemoglobin measurement (mass/volume)Ordered By: Sultana Finn on 07-05-2023 Hemoglobin (Bld) [Mass/Vol] 11.8 g/dL 12.0-15.0 [facility] Blood lymphocytes/100 leukoc ytesOrdered By: Sultana Finn on 07-05-2023 Lymphocytes/100 WBC (Bld) 39.0 % 19-41 [facility] Blood monocytes/100 leukocyt esOrdered By: Sultana Finn on 07-05-2023 Monocytes/100 WBC (Bld) 13.9 % 0-10 [facility] Blood platelet mean volumeOr dered By: Sultana Finn on 07-05-2023 Platelet mean volume (Bld) [Entitic vol] 9.6 fL 6.2-12.0 [facility] Determination of erythrocyte mean corpuscular volume (MCV)Ordered By: Sultana Finn on 07-05-2023 MCV (RBC) [Entitic vol] 102.0 fL 81-99 [facility] Hematocrit Auto (Bld) [Volum e fraction]Ordered By: Sultana Finn on 07-05-2023 Hematocrit (Bld) [Volume fraction] 35.5 % 37-47 [facility] Laboratory - Hematology and Cell countsOrdered By: Sultana Finn on 07-05-2023 Erythrocyte distribution width (RBC) [Entitic vol] 53.2 fL 35.1-43.9 [facility] Erythrocyte distribution width (RBC) [Ratio] 14.3 % 11.6-14.6 [facility] Immature granulocytes/100 WBC (Bld) 0.700 % 0.0-0.9 [facility] Comment on above: IG% - Immature Granu locytes (promyelocytes, myelocytes and metamyelocytes) > 1% indicates that a LEFT SHIFT is Present. MCH (RBC) [Entitic mass] 33.9 pg 27.0-32.0 [facility] Nucleated RBC/100 WBC (Bld) [Ratio] 0.7 % 0-5 [facility] MCHC Auto (RBC) [Mass/Vol]Or dered By: Sultana Finn on 07-05-2023 MCHC (RBC) [Mass/Vol] 33.2 g/dL 32-36 [facility] Platelets bldOrdered By: Chaka Finn on 07-05-2023 Platelets (Bld) [#/Vol] 148 10*3/uL 150-450 [facility] Basophil percentageOrdered B y: Myron Calvillo on 06-28-2023 Bilirubin [Mass/Vol] 0.30 mg/dL 0.20-1.00 [facility] Comment on above: For patients on eltr ombopag therapy, use of Dimension [place] TBIL is not recommended. Chloride [Moles/Vol] 105 mmol/L 98-107 [facility] Glucose [Mass/Vol] 210 mg/dL 74-[address] [facility] Comment on above: Glucose result great er than or equal to 200 mg/dLsuggests DIABETES MELLITUS per A.D.A. criteria. LDH [Catalytic activity/Vol] 156 U/L 84-246 [facility] Potassium [Moles/Vol] 4.1 mmol/L 3.5-5.1 [facility] Protein [Mass/Vol] 6.5 g/dL 6.4-8.[address] [facility] Sodium [Moles/Vol] 139 mmol/L 136-[address] [facility] Blood manual differential co mment interpretation (narrative result)Ordered By: Myron Calvillo on 06-28-2023 Manual differential comment Marcial (Bld) [Interp] SCANNED [facility] Laboratory - Chemistry and C hemistry - challengeOrdered By: Myron Calvillo on 06-28-2023 ALP [Catalytic activity/Vol] 104 U/L 45-117 [facility] ALT [Catalytic activity/Vol] 43 U/L 13-56 [facility] CO2 [Moles/Vol] 28.0 mmol/L 21.0-32.0 [facility] Globulin (S) [Mass/Vol] 3.2 g/dL 2.2-4.2 [facility] Urea nitrogen/Creatinine [Mass ratio] 15.7 mg/mg 10-20 [facility] No Panel InformationOrdered By: Myron Calvillo on 06-28-2023 Estimated Creatinine Clearance Calc 45.37 ml/min [facility] Estimated GFR (MDRD) Amer 64 mL/min >60 [facility] Comment on above: GFR Calc Estimated GFR (MDRD) Non-Af Amer 53 mL/min >60 [facility] Comment on above: Non- GFR Calc Serum or plasma albumin amanda urement (mass/volume)Ordered By: Myron Calvillo on 06-28-2023 Albumin [Mass/Vol] 3.3 g/dL 3.2-5.[address] [facility] Serum or plasma albumin/glob ulin mass ratioOrdered By: Myron Calvillo on 06-28-2023 Albumin/Globulin [Mass ratio] 1.0 {ratio} 0.9-2.4 [facility] Serum or plasma calcium amanda urement (mass/volume)Ordered By: Myron Calvillo on 06-28-2023 Calcium [Mass/Vol] 8.9 mg/dL 8.5-10.[address] [facility] Serum or plasma creatinine m easurement (mass/volume)Ordered By: Myron Calvillo on 06-28-2023 Creatinine [Mass/Vol] 1.08 mg/dL 0.55-1.02 [facility] Comment on above: The validity of the calculated GFR & GFRAA in patients over 70 years has not been determined. Clinical correlation is essential. Serum or plasma urea nitroge n measurement (mass/volume)Ordered By: Myron Calvillo on 06-28-2023 Urea nitrogen [Mass/Vol] 17 mg/dL 7-18 [facility] Thin prep Papanicolaou smear with manual screeningOrdered By: Myron Calvillo on 06-28-2023 Thin prep Papanicolaou smear with manual screening 41 U/L 15- [facility] Thin prep Papanicolaou smear with manual screening 6 5-15 [facility] Absolute lymphocyte countOrd ered By: Sultana Finn on 05-31-2023 Lymphocytes Auto (Unsp spec) [#/Vol] 0.74 10*3/uL 0.83-4.51 [facility] Basophil percentageOrdered B y: Sultana Finn on 05-31-2023 Basophils/100 WBC (Bld) 0.9 % 0-1 [facility] Bilirubin [Mass/Vol] 0.40 mg/dL 0.20-1.00 [facility] Comment on above: For patients on eltr ombopag therapy, use of Dimension [place] TBIL is not recommended. Chloride [Moles/Vol] 106 mmol/L 98-107 [facility] Eosinophils/100 WBC (Bld) 3.7 % 0-5 [facility] Glucose [Mass/Vol] 201 mg/dL 74-[address] [facility] Comment on above: Glucose result great er than or equal to 200 mg/dLsuggests DIABETES MELLITUS per A.D.A. criteria. Neutrophils (Bld) [#/Vol] 1.1 10*3/uL 2.0-7.7 [facility] Neutrophils/100 WBC (Bld) 51.0 % 47-70 [facility] Potassium [Moles/Vol] 3.8 mmol/L 3.5-5.1 [facility] Protein [Mass/Vol] 6.5 g/dL 6.4-8.[address] [facility] Sodium [Moles/Vol] 140 mmol/L 136-[address] [facility] WBC (Bld) [#/Vol] 2.1 10*3/uL 4.4-11.[address] [facility] Blood erythrocytes count (nu mber/volume)Ordered By: Sultana Finn on 05-31-2023 RBC (Bld) [#/Vol] 3.36 10*6/uL 4.2-5.4 [facility] Blood hemoglobin measurement (mass/volume)Ordered By: Sultana Finn on 05-31-2023 Hemoglobin (Bld) [Mass/Vol] 11.9 g/dL 12.0-15.0 [facility] Blood lymphocytes/100 leukoc ytesOrdered By: Sultana Aakash on 05-31-2023 Lymphocytes/100 WBC (Bld) 34.6 % 19-41 [facility] Blood monocytes/100 leukocyt esOrdered By: Sultana Finn on 05-31-2023 Monocytes/100 WBC (Bld) 9.8 % 0-10 [facility] Blood platelet mean volumeOr dered By: Sultana Finn on 05-31-2023 Platelet mean volume (Bld) [Entitic vol] 9.7 fL 6.2-12.0 [facility] Determination of erythrocyte mean corpuscular volume (MCV)Ordered By: Sultana Finn on 05-31-2023 MCV (RBC) [Entitic vol] 103.0 fL 81-99 [facility] Hematocrit Auto (Bld) [Volum e fraction]Ordered By: Sultana Aakash on 05-31-2023 Hematocrit (Bld) [Volume fraction] 34.6 % 37-47 [facility] Laboratory - Chemistry and C hemistry - challengeOrdered By: Sultana Finn on 05-31-2023 ALP [Catalytic activity/Vol] 87 U/L 45-117 [facility] ALT [Catalytic activity/Vol] 37 U/L 13-56 [facility] CO2 [Moles/Vol] 28.0 mmol/L 21.0-32.0 [facility] Globulin (S) [Mass/Vol] 3.2 g/dL 2.2-4.2 [facility] Urea nitrogen/Creatinine [Mass ratio] 10.0 mg/mg 10-20 [facility] Laboratory - Hematology and Cell countsOrdered By: Sultana Finn on 05-31-2023 Erythrocyte distribution width (RBC) [Entitic vol] 52.8 fL 35.1-43.9 [facility] Erythrocyte distribution width (RBC) [Ratio] 13.9 % 11.6-14.6 [facility] Immature granulocytes/100 WBC (Bld) 0.000 % 0.0-0.9 [facility] Comment on above: IG% - Immature Granu locytes (promyelocytes, myelocytes and metamyelocytes) > 1% indicates that a LEFT SHIFT is Present. MCH (RBC) [Entitic mass] 35.4 pg 27.0-32.0 [facility] Nucleated RBC/100 WBC (Bld) [Ratio] 0 % 0-5 [facility] MCHC Auto (RBC) [Mass/Vol]Or dered By: Sultana Finn on 05-31-2023 MCHC (RBC) [Mass/Vol] 34.4 g/dL 32-36 [facility] No Panel InformationOrdered By: Sultana Finn on 05-31-2023 CA 15-3 Antigen 26.7 U/mL 0.0-25.0 [facility] Comment on above: [employer] El ectrochemiluminescence Immunoassay(ECLIA)Values obtained with different assay methods or kits cannotbe used interchangeably. Results cannot be interpreted asabsolute evidence of the presence or absence of malignantdisease.Performed at: [email or web address] [facility] [employer] [id number] Director: Reese Willingham PhD, Phone: [phone] CA 27.29 19.5 U/mL 0.0-38.6 [facility] Comment on above: [employer] Immu nochemiluminometric Methodology (ICMA)Values obtained with different assay methods or kits cannotbe used interchangeably. Results cannot be interpreted asabsolute evidence of the presence or absence of malignantdisease. Estimated Creatinine Clearance Calc 37.70 ml/min [facility] Estimated GFR (MDRD) Amer 52 mL/min >60 [facility] Comment on above: GFR Calc Estimated GFR (MDRD) Non-Af Amer 43 mL/min >60 [facility] Comment on above: Non- GFR Calc Platelets bldOrdered By: Chaka Finn on 05-31-2023 Platelets (Bld) [#/Vol] 162 10*3/uL 150-450 [facility] Serum or plasma albumin amanda urement (mass/volume)Ordered By: Sultana Finn on 05-31-2023 Albumin [Mass/Vol] 3.3 g/dL 3.2-5.[address] [facility] Serum or plasma albumin/glob ulin mass ratioOrdered By: Sultana Finn on 05-31-2023 Albumin/Globulin [Mass ratio] 1.0 {ratio} 0.9-2.4 [facility] Serum or plasma calcium amanda urement (mass/volume)Ordered By: Sultana Finn on 05-31-2023 Calcium [Mass/Vol] 8.6 mg/dL 8.5-10.[address] [facility] Serum or plasma creatinine m easurement (mass/volume)Ordered By: Sultana Finn on 05-31-2023 Creatinine [Mass/Vol] 1.30 mg/dL 0.55-1.02 [facility] Comment on above: The validity of the calculated GFR & GFRAA in patients over 70 years has not been determined. Clinical correlation is essential. Serum or plasma urea nitroge n measurement (mass/volume)Ordered By: Sultana Finn on 05-31-2023 Urea nitrogen [Mass/Vol] 13 mg/dL 7-18 [facility] Thin prep Papanicolaou smear with manual screeningOrdered By: Sultana Finn on 05-31-2023 Thin prep Papanicolaou smear with manual screening 37 U/L 15-37 [facility] Thin prep Papanicolaou smear with manual screening 6 5-15 [facility] Basophil percentageOrdered B y: Myron Calvillo on 05-03-2023 LDH [Catalytic activity/Vol] 159 U/L 84-246 [facility] No Panel InformationOrdered By: Myron Calvillo on 05-03-2023 CA 125 Antigen 17.9 U/mL 0.0-38.1 [facility] Comment on above: [employer] El ectrochemiluminescence Immunoassay(ECLIA)Values obtained with different assay methods or kits cannotbe used interchangeably. Results cannot be interpreted asabsolute evidence of the presence or absence of malignantdisease. CA 15-3 Antigen 23.0 U/mL 0.0-25.0 [facility] Comment on above: [employer] El ectrochemiluminescence Immunoassay(ECLIA)Values obtained with different assay methods or kits cannotbe used interchangeably. Results cannot be interpreted asabsolute evidence of the presence or absence of malignantdisease.Performed at: [facility] [address] [id number] Director: Reese Willingham PhD, Phone: [phone] CA 27.29 20.6 U/mL 0.0-38.6 [facility] Comment on above: [employer] Immu nochemiluminometric Methodology (ICMA)Values obtained with different assay methods or kits cannotbe used interchangeably. Results cannot be interpreted asabsolute evidence of the presence or absence of malignantdisease. Serum or plasma carcinoembry onic antigen measurement (mass/volume)Ordered By: Mryon Calvillo on 05-03-2023 Carcinoembryonic Ag [Mass/Vol] 4.1 ng/mL 0.0-4.7 [facility] Comment on above: Nonsmokers <3.9 Smok ers <5.6[employer] Electrochemiluminescence Immunoassay(ECLIA)Values obtained with different assay methods or kitscannot be used interchangeably. Results cannot beinterpreted as absolute evidence of the presence orabsence of malignant disease. Blood manual differential co mment interpretation (narrative result)Ordered By: Myron Calvillo on 03-08-2023 Manual differential comment Marcial (Bld) [Interp] SCANNED [facility] Review by pathologistOrdered By: Myron Calvillo on 03-08-2023 Pathologist review Marcial (Unsp spec) [Interp] Reviewed [facility] Comment on above: Previous reported re sult: January zaheer Edited by: RGOROBERT on 03/10/23:825Leukopenia, neutropenia and macrocytic anemia. Clinical correlation necessary.Iam Mcclure M.D. 03/10/23 AMENDED REPORT 03/10/23 0826 PATH REV previously reported as: January Lower GI hemoglobin IA Ql (S tl)Ordered By: Myron Calvillo on 01-12-2023 Stool Occult Blood (MARIAM) [facility] Stool gastrointestinal hemog lobin detection by immunologic methodOrdered By: Myron Calvillo on 01-12-2023 Lower GI hemoglobin IA Ql (Stl) [facility] Basophil percentageOrdered B y: Myron Calvillo on 01-11-2023 Basophil percentage 4.0 mg/dL 2.5-4.9 [facility] No Panel InformationOrdered By: Myron Calvillo on 01-11-2023 Vitamin D 25-Hydroxy 97.2 ng/mL [facility] Comment on above: Vitamin D 25(OH) Sta tus Range Deficiency <20 ng/mL (50nmol/L) Insufficiency 20 - 30 ng/mL (50 - 75 nmol/L) Sufficiency 30 - 100 ng/mL (75 - 250 nmol/L) Toxicity >100 ng/mL (>250 nmol/L) No Panel InformationOrdered By: Chelsea Anguiano on 01-11-2023 Thyroid Stimulating Hormone (TSH) 0.95 uIU/mL 0.358-3.74 [facility] Folate [Mass/Vol]Ordered By: Ngozi Padron on 01-04-2023 Folate 33.10 ng/mL 3.1-55.4 [facility] Iron (Unsp spec) [Mass/Mass] Ordered By: Ngozi Padron on 01-04-2023 Iron [Mass/Vol] 89 ug/dL 50-170 [facility] Iron measurement (mass/mass) Ordered By: Ngozi Padron on 01-04-2023 Iron (Unsp spec) [Mass/Mass] 89 ug/dL 50-170 [facility] Iron saturation [Mass fracti on]Ordered By: Ngozi Padron on 01-04-2023 Iron Saturation 27.9 % 15.0-55.0 [facility] Laboratory - Chemistry and C hemistry - challengeOrdered By: Ngozi Padron on 01-04-2023 Cobalamin (Vitamin B12) [Mass/Vol] 379 pg/mL 211-911 [facility] No Panel InformationOrdered By: Ngozi Padron on 01-04-2023 Total Iron Binding Capacity 319 ug/dL 250-450 [facility] Serum or plasma ferritin augie surement (mass/volume)Ordered By: Ngozi Padron on 01-04-2023 Ferritin [Mass/Vol] 138 ng/mL 8-252 [facility] Serum or plasma folate measu rement (mass/volume)Ordered By: Ngozi Padron on 01-04-2023 Folate [Mass/Vol] 33.10 ng/mL 3.1-55.[address] [facility] Serum or plasma iron saturat ion measurement (mass fraction)Ordered By: Ngozi Padron on 01-04-2023 Iron saturation [Mass fraction] 27.9 % 15.0-55.0 [facility] No Panel InformationOrdered By: Myron Calvillo on 12-07-2022 Miscellaneous Test Comment MAILED SPECIMEN [facility] Absolute lymphocyte countOrd ered By: Dr. Calvillo on 11-30-2022 Lymphocytes Auto (Unsp spec) [#/Vol] 0.68 10*3/uL 0.83-4.51 [facility] Basophil percentageOrdered B y: Dr. Calvillo on 11-30-2022 Basophil percentage 4.8 mg/dL 2.5-4.9 [facility] Basophils/100 WBC (Bld) 2.1 % 0-1 [facility] Bilirubin [Mass/Vol] 0.40 mg/dL 0.20-1.00 [facility] Comment on above: For patients on eltr ombopag therapy, use of Dimension [place] TBIL is not recommended. Chloride [Moles/Vol] 103 mmol/L 98-107 [facility] Eosinophils/100 WBC (Bld) 3.1 % 0-5 [facility] Glucose [Mass/Vol] 258 mg/dL 74-[address] [facility] Comment on above: Glucose result great er than or equal to 200 mg/dLsuggests DIABETES MELLITUS per A.D.A. criteria. LDH [Catalytic activity/Vol] 170 U/L 84-246 [facility] Neutrophils (Bld) [#/Vol] 0.9 10*3/uL 2.0-7.7 [facility] Neutrophils/100 WBC (Bld) 46.8 % 47-70 [facility] Potassium [Moles/Vol] 4.0 mmol/L 3.5-5.1 [facility] Protein [Mass/Vol] 6.6 g/dL 6.4-8.[address] [facility] Sodium [Moles/Vol] 140 mmol/L 136-[address] [facility] WBC (Bld) [#/Vol] 1.9 10*3/uL 4.4-11.0 [facility] [facility] Blood erythrocytes count (nu mber/volume)Ordered By: Dr. Calvillo on 11-30-2022 RBC (Bld) [#/Vol] 3.50 10*6/uL 4.2-5.4 [facility] Blood hemoglobin measurement (mass/volume)Ordered By: Dr. Calvillo on 11-30-2022 Hemoglobin (Bld) [Mass/Vol] 12.4 g/dL 12.0-15.0 [facility] Blood lymphocytes/100 leukoc ytesOrdered By: Dr. Calvillo on 11-30-2022 Lymphocytes/100 WBC (Bld) 35.1 % 19-41 [facility] Blood manual differential co mment interpretation (narrative result)Ordered By: Dr. Calvillo on 11-30-2022 Manual differential comment Marcial (Bld) [Interp] SCANNED [facility] Blood monocytes/100 leukocyt esOrdered By: Dr. Calvillo on 11-30-2022 Monocytes/100 WBC (Bld) 12.4 % 0-10 [facility] Blood platelet mean volumeOr dered By: Dr. Calvillo on 11-30-2022 Platelet mean volume (Bld) [Entitic vol] 9.6 fL 6.2-12.0 [facility] Determination of erythrocyte mean corpuscular volume (MCV)Ordered By: Dr. Calvillo on 11-30-2022 MCV (RBC) [Entitic vol] 102.9 fL 81-99 [facility] Hematocrit Auto (Bld) [Volum e fraction]Ordered By: Dr. Calvillo on 11-30-2022 Hematocrit (Bld) [Volume fraction] 36.0 % 37-47 [facility] Laboratory - Chemistry and C hemistry - challengeOrdered By: Dr. Calvillo on 03-21-2023 ALP [Catalytic activity/Vol] 92 U/L 45-117 [facility] ALT [Catalytic activity/Vol] 53 U/L 13-56 [facility] CO2 [Moles/Vol] 29.0 mmol/L 21.0-32.0 [facility] Globulin (S) [Mass/Vol] 3.3 g/dL 2.2-4.2 [facility] Urea nitrogen/Creatinine [Mass ratio] 15.6 mg/mg 10-20 [facility] Laboratory - Hematology and Cell countsOrdered By: Dr. Calvillo on 11-30-2022 Erythrocyte distribution width (RBC) [Entitic vol] 53.5 fL 35.1-43.9 [facility] Erythrocyte distribution width (RBC) [Ratio] 14.4 % 11.6-14.6 [facility] Immature granulocytes/100 WBC (Bld) 0.500 % 0.0-0.9 [facility] Comment on above: IG% - Immature Granu locytes (promyelocytes, myelocytes and metamyelocytes) > 1% indicates that a LEFT SHIFT is Present. MCH (RBC) [Entitic mass] 35.4 pg 27.0-32.0 [facility] Nucleated RBC/100 WBC (Bld) [Ratio] 0 % 0-5 [facility] MCHC Auto (RBC) [Mass/Vol]Or dered By: Dr. Calvillo on 11-30-2022 MCHC (RBC) [Mass/Vol] 34.4 g/dL 32-36 [facility] No Panel InformationOrdered By: Dr. Calvillo on 11-30-2022 Estimated Creatinine Clearance Calc 45.60 ml/min [facility] Estimated GFR (MDRD) Amer 64 mL/min >60 [facility] Comment on above: GFR Calc Estimated GFR (MDRD) Non-Af Amer 53 mL/min >60 [facility] Comment on above: Non- GFR Calc Miscellaneous Test Comment MAILED SPECIMEN [facility] Vitamin D 25-Hydroxy 69.3 ng/mL [facility] Comment on above: Vitamin D 25(OH) Sta tus Range Deficiency <20 ng/mL (50nmol/L) Insufficiency 20 - 30 ng/mL (50 - 75 nmol/L) Sufficiency 30 - 100 ng/mL (75 - 250 nmol/L) Toxicity >100 ng/mL (>250 nmol/L) Platelets bldOrdered By: Dr. Calvillo on 11-30-2022 Platelets (Bld) [#/Vol] 164 10*3/uL 150-450 [facility] Serum or plasma albumin amanda urement (mass/volume)Ordered By: Dr. Calvillo on 11-30-2022 Albumin [Mass/Vol] 3.3 g/dL 3.2-5.[address] [facility] Serum or plasma albumin/glob ulin mass ratioOrdered By: Dr. Calvillo on 11-30-2022 Albumin/Globulin [Mass ratio] 1.0 {ratio} 0.9-2.4 [facility] Serum or plasma calcium amanda urement (mass/volume)Ordered By: Dr. Calvillo on 11-30-2022 Calcium [Mass/Vol] 10.3 mg/dL 8.5-10.[address] [facility] Serum or plasma creatinine m easurement (mass/volume)Ordered By: Dr. Calvillo on 11-30-2022 Creatinine [Mass/Vol] 1.09 mg/dL 0.55-1.02 [facility] Comment on above: The validity of the calculated GFR & GFRAA in patients over 70 years has not been determined. Clinical correlation is essential. Serum or plasma urea nitroge n measurement (mass/volume)Ordered By: Dr. Calvillo on 11-30-2022 Urea nitrogen [Mass/Vol] 17 mg/dL 7-18 [facility] Thin prep Papanicolaou smear with manual screeningOrdered By: Dr. Calvillo on 11-30-2022 Thin prep Papanicolaou smear with manual screening 59 U/L 15-37 [facility] Thin prep Papanicolaou smear with manual screening 8 5-15 [facility] Blood platelet adequacy dete ction by light microscopyOrdered By: Dr. Calvillo on 10-26-2022 Platelets LM Ql (Bld) ADEQUATE ADEQ [facility] Macrocytes Ql (Bld)Ordered B y: Myron Calvillo on 10-26-2022 Macrocytosis 1+ [facility] Macrocytes detectionOrdered By: Dr. Calvillo on 10-26-2022 Macrocytes Ql (Bld) 1+ [facility] Platelets LM Ql (Bld)Ordered By: Myron Calvillo on 10-26-2022 Platelet Estimate ADEQUATE ADEQ [facility] No Panel InformationOrdered By: Dr. Calvillo on 09-28-2022 CA 15-3 Antigen 33.7 U/mL 0.0-25.0 [facility] Comment on above: [employer] El ectrochemiluminescence Immunoassay(ECLIA)Values obtained with different assay methods or kits cannotbe used interchangeably. Results cannot be interpreted asabsolute evidence of the presence or absence of malignantdisease.Performed at: [facility] [id number] Director: Reese Willingham PhD, Phone: [phone] CA 27.29 33.0 U/mL 0.0-38.6 [facility] Comment on above: [employer] Immu nochemiluminometric Methodology (ICMA)Values obtained with different assay methods or kits cannotbe used interchangeably. Results cannot be interpreted asabsolute evidence of the presence or absence of malignantdisease. Reactive Lymphocytes RARE [facility] Absolute lymphocyte counton 08-31-2022 Lymphocytes Auto (Unsp spec) [#/Vol] 0.62 10*3/uL 0.83-4.51 [facility] Work Phone: [phone] Basophil percentageon 2021 Basophil percentage 4.0 mg/dL 2.5-4.9 [facility] Work Phone: Basophils/100 WBC (Bld) 1.6 % 0-1 [facility] Work Phone: Bilirubin [Mass/Vol] 0.40 mg/dL 0.20-1.00 [facility] Work Phone: Comment on above: For patients on eltr ombopag therapy, use of Dimension [place] TBIL is not recommended. Chloride [Moles/Vol] 105 mmol/L 98-107 [facility] Work Phone: Eosinophils/100 WBC (Bld) 2.6 % 0-5 [facility] Work Phone: [phone] Glucose [Mass/Vol] 165 mg/dL 74-[address] [facility] Work Phone: [phone] Comment on above: Fasting Glucose resu lt greater than or equal to 126 mg/dL suggests DIABETES MELLITUS per A.D.A. criteria. Neutrophils (Bld) [#/Vol] 1.0 10*3/uL 2.0-7.7 [facility] Work Phone: Neutrophils/100 WBC (Bld) 50.0 % 47-70 [facility] Work Phone: Potassium [Moles/Vol] 3.7 mmol/L 3.5-5.1 [facility] Work Phone: Protein [Mass/Vol] 6.6 g/dL 6.4-8.[address] [facility] Work Phone: Sodium [Moles/Vol] 141 mmol/L 136-[address] [facility] Work Phone: WBC (Bld) [#/Vol] 1.9 10*3/uL 4.4-11.[address] [facility] Work Phone: [phone] Blood erythrocytes count (nu mber/volume)on 08-31-2022 RBC (Bld) [#/Vol] 3.75 10*6/uL 4.2-5.4 [facility] Work Phone: [phone] Blood hemoglobin measurement (mass/volume)on 08-31-2022 Hemoglobin (Bld) [Mass/Vol] 13.1 g/dL 12.0-15.0 [facility] Work Phone: Blood lymphocytes/100 leukoc yteson 08-31-2022 Lymphocytes/100 WBC (Bld) 32.3 % 19-41 [facility] Work Phone: Blood monocytes/100 leukocyt eson 08-31-2022 Monocytes/100 WBC (Bld) 13.5 % 0-10 [facility] Work Phone: Blood platelet mean volumeon 08-31-2022 Platelet mean volume (Bld) [Entitic vol] 8.9 fL 6.2-12.0 [facility] Work Phone: Determination of erythrocyte mean corpuscular volume (MCV)on 08-31-2022 MCV (RBC) [Entitic vol] 100.0 fL 81-99 [facility] Work Phone: Hematocrit Auto (Bld) [Volum e fraction]on 08-31-2022 Hematocrit (Bld) [Volume fraction] 37.5 % 37-47 [facility] Work Phone: [phone] Laboratory - Chemistry and C hemistry - challengeon 08-31-2022 ALP [Catalytic activity/Vol] 82 U/L 45-117 [facility] Work Phone: [phone] ALT [Catalytic activity/Vol] 62 U/L 13-56 [facility] Work Phone: [phone] CO2 [Moles/Vol] 30.0 mmol/L 21.0-32.0 [facility] Work Phone: [phone] Globulin (S) [Mass/Vol] 3.3 g/dL 2.2-4.2 [facility] Work Phone: [phone] Urea nitrogen/Creatinine [Mass ratio] 11.3 mg/mg - [facility] Work Phone: Laboratory - Hematology and Cell countson 08-31-2022 Erythrocyte distribution width (RBC) [Entitic vol] 55.7 fL 35.1-43.9 [facility] Work Phone: [phone] Erythrocyte distribution width (RBC) [Ratio] 15.1 % 11.6-14.6 [facility] Work Phone: [phone] Immature granulocytes/100 WBC (Bld) 0.000 % 0.0-0.9 [facility] Work Phone: [phone] Comment on above: IG% - Immature Granu locytes (promyelocytes, myelocytes and metamyelocytes) > 1% indicates that a LEFT SHIFT is Present. MCH (RBC) [Entitic mass] 34.9 pg 27.0-32.0 [facility] Work Phone: [phone] Nucleated RBC/100 WBC (Bld) [Ratio] 0 % 0-5 [facility] Work Phone: MCHC Auto (RBC) [Mass/Vol]on 08-31-2022 MCHC (RBC) [Mass/Vol] 34.9 g/dL 32-36 [facility] Work Phone: No Panel Informationon 08-31 Estimated Creatinine Clearance Calc 46.89 ml/min [facility] Work Phone: Estimated GFR (MDRD) Amer 66 mL/min >60 [facility] Work Phone: Comment on above: GFR Calc Estimated GFR (MDRD) Non-Af Amer 55 mL/min >60 [facility] Work Phone: Comment on above: Non- GFR Calc Vitamin D 25-Hydroxy 73.8 ng/mL [facility] Work Phone: Comment on above: Vitamin D 25(OH) Sta tus Range Deficiency <20 ng/mL (50nmol/L) Insufficiency 20 - 30 ng/mL (50 - 75 nmol/L) Sufficiency 30 - 100 ng/mL (75 - 250 nmol/L) Toxicity >100 ng/mL (>250 nmol/L) Platelets bldon 08-31-2022 Platelets (Bld) [#/Vol] 160 10*3/uL 150-450 [facility] Work Phone: Serum or plasma albumin amanda urement (mass/volume)on 08-31-2022 Albumin [Mass/Vol] 3.3 g/dL 3.2-5.[address] [facility] Work Phone: Serum or plasma albumin/glob ulin mass ratioon 08-31-2022 Albumin/Globulin [Mass ratio] 1.0 {ratio} 0.9-2.4 [facility] Work Phone: Serum or plasma calcium amanda urement (mass/volume)on 08-31-2022 Calcium [Mass/Vol] 8.9 mg/dL 8.5-10.[address] [facility] Work Phone: Serum or plasma creatinine m easurement (mass/volume)on 08-31-2022 Creatinine [Mass/Vol] 1.06 mg/dL 0.55-1.02 [facility] Work Phone: Comment on above: The validity of the calculated GFR & GFRAA in patients over 70 years has not been determined. Clinical correlation is essential. Serum or plasma urea nitroge n measurement (mass/volume)on 08-31-2022 Urea nitrogen [Mass/Vol] 12 mg/dL 7-18 [facility] Work Phone: Thin prep Papanicolaou smear with manual screeningon 08-31-2022 Thin prep Papanicolaou smear with manual screening 56 U/L 15-37 [facility] Work Phone: Thin prep Papanicolaou smear with manual screening 6 5-15 [facility] Work Phone: Thin prep Papanicolaou smear with manual screening 185 U/L 84-246 [facility] Work Phone: No Panel Informationon 08-03 CA 15-3 Antigen 37.0 U/mL 0.0-25.0 [facility] Work Phone: Comment on above: [employer] El ectrochemiluminescence Immunoassay(ECLIA)Values obtained with different assay methods or kits cannotbe used interchangeably. Results cannot be interpreted asabsolute evidence of the presence or absence of malignantdisease.Performed at: [email or web address] [id number] Director: Reese Willingham PhD, Phone: [phone] CA 27.29 45.8 U/mL 0.0-38.6 [facility] Work Phone: Comment on above: [employer] Immu nochemiluminometric Methodology (ICMA)Values obtained with different assay methods or kits cannotbe used interchangeably. Results cannot be interpreted asabsolute evidence of the presence or absence of malignantdisease. Laboratory - Chemistry and C hemistry - challengeOrdered By: Dr. Calvillo on 06-07-2022 Magnesium [Mass/Vol] 1.8 mg/dL 1.6-2.6 [facility] Basophil percentageOrdered B y: Dr. Calvillo on 05-31-2022 Basophil percentage 0-5 SEEN /hpf 0-5 [facility] Bilirubin Test strip Ql (U)O rdered By: Dr. Calvillo on 05-31-2022 Bilirubin Ql (U) Negative Negative [facility] Blood manual differential co mment interpretation (narrative result)on 05-31-2022 Manual differential comment Marcial (Bld) [Interp] COMMENT [facility] Work Phone: Comment on above: NEUTROPENIA. Ketones Test strip Ql (U)Ord ered By: Dr. Calvillo on 05-31-2022 Ketones Ql (U) Negative Negative [facility] Mucus LM Ql (Urine sed)Order ed By: Dr. Calvillo on 05-31-2022 Mucus Ql (Urine sed) 0 SEEN /hpf [facility] Nitrite Test strip Ql (U)Ord ered By: Dr. Calvillo on 05-31-2022 Nitrite Ql (U) Negative Negative [facility] Protein Test strip Ql (U)Ord ered By: Dr. Calvillo on 05-31-2022 Protein Ql (U) Negative Negative [facility] Squamous epithelial cells de tection in urine sediment by light microscopyOrdered By: Dr. Calvillo on 05-31-2022 Epithelial cells.squamous LM Ql (Urine sed) 0-5 SEEN /hpf 5-10 [facility] Urine blood detectionOrdered By: Dr. Calvillo on 05-31-2022 RBC Ql (U) 25 /ul Negative [facility] RBC Ql (U) 0-5 SEEN /hpf 0-5 [facility] Urine clarityOrdered By: Dr. Calvillo on 05-31-2022 Clarity (U) Sl. Cloudy Clear [facility] Urine color determinationOrd ered By: Dr. Calvillo on 05-31-2022 Color (U) Yellow Yellow [facility] Urine glucose detectionOrder ed By: Dr. Calvillo on 05-31-2022 Glucose Ql (U) 1000 mg/dl Normal [facility] Urine leukocyte esterase det ection by dipstickOrdered By: Dr. Calvillo on 05-31-2022 Leukocyte esterase Test strip Ql (U) 500 /ul Negative [facility] Urine pHOrdered By: Dr. Calvillo on 05-31-2022 pH (U) 6.0 [pH] 5.0 - 8.0 [facility] Urine sediment bacteria coun t by microscopy (number/high power field)Ordered By: Dr. Calvillo on 05-31-2022 Bacteria LM.HPF (Urine sed) [#/Area] 2 /[HPF] None Seen [facility] Urine specific gravity measu rementOrdered By: Dr. Calvillo on 05-31-2022 Specific gravity (U) [Rel density] 1.015 1.002-1.030 [facility] Urobilinogen Auto test strip Ql (U)Ordered By: Dr. Calvillo on 05-31-2022 Urobilinogen Ql (U) Normal mg/dl Normal [facility] Absolute lymphocyte counton 04-26-2022 Lymphocytes Auto (Unsp spec) [#/Vol] 0.77 10*3/uL 0.83-4.51 [facility] Work Phone: Basophil percentageon 2021 Basophil percentage 3.9 mg/dL 2.5-4.9 [facility] Work Phone: [phone] Basophils/100 WBC (Bld) 2.2 % 0-1 [facility] Work Phone: [phone] Bilirubin [Mass/Vol] 0.30 mg/dL 0.20-1.00 [facility] Work Phone: [phone] Comment on above: For patients on eltr ombopag therapy, use of Dimension [place] TBIL is not recommended. Chloride [Moles/Vol] 103 mmol/L 98-107 [facility] Work Phone: Eosinophils/100 WBC (Bld) 3.6 % 0-5 [facility] Work Phone: [phone] Glucose [Mass/Vol] 145 mg/dL 74-[address] [facility] Work Phone: [phone] Comment on above: Fasting Glucose resu lt greater than or equal to 126 mg/dL suggests DIABETES MELLITUS per A.D.A. criteria. Neutrophils (Bld) [#/Vol] 1.3 10*3/uL 2.0-7.7 [facility] Work Phone: Neutrophils/100 WBC (Bld) 48.7 % 47-70 [facility] Work Phone: Potassium [Moles/Vol] 4.2 mmol/L 3.5-5.1 [facility] Work Phone: Protein [Mass/Vol] 6.4 g/dL 6.4-8.2 [facility] Work Phone: Sodium [Moles/Vol] 138 mmol/L 136-145 [facility] Work Phone: WBC (Bld) [#/Vol] 2.8 10*3/uL 4.4-11.0 [facility] Work Phone: Blood erythrocytes count (nu mber/volume)on 04-26-2022 RBC (Bld) [#/Vol] 3.56 10*6/uL 4.2-5.4 [facility] Work Phone: Blood hemoglobin measurement (mass/volume)on 04-26-2022 Hemoglobin (Bld) [Mass/Vol] 11.8 g/dL 12.0-15.0 [facility] Work Phone: Blood lymphocytes/100 leukoc yteson 04-26-2022 Lymphocytes/100 WBC (Bld) 28.0 % 19-41 [facility] Work Phone: Blood monocytes/100 leukocyt eson 04-26-2022 Monocytes/100 WBC (Bld) 17.1 % 0-10 [facility] Work Phone: Blood platelet mean volumeon 04-26-2022 Platelet mean volume (Bld) [Entitic vol] 9.3 fL 6.2-12.0 [facility] Work Phone: Determination of erythrocyte mean corpuscular volume (MCV)on 04-26-2022 MCV (RBC) [Entitic vol] 98.6 fL 81-99 [facility] Work Phone: Hematocrit Auto (Bld) [Volum e fraction]on 04-26-2022 Hematocrit (Bld) [Volume fraction] 35.1 % 37-47 [facility] Work Phone: [phone] Laboratory - Chemistry and C hemistry - challengeon 04-26-2022 ALP [Catalytic activity/Vol] 140 U/L 45-117 [facility] Work Phone: ALT [Catalytic activity/Vol] 58 U/L 13-56 [facility] Work Phone: [phone] CO2 [Moles/Vol] 30.0 mmol/L 21.0-32.0 [facility] Work Phone: [phone] Globulin (S) [Mass/Vol] 3.2 g/dL 2.2-4.2 [facility] Work Phone: [phone] Urea nitrogen/Creatinine [Mass ratio] 24.7 mg/mg 10-20 [facility] Work Phone: [phone] Laboratory - Hematology and Cell countson 04-26-2022 Erythrocyte distribution width (RBC) [Entitic vol] 62.3 fL 35.1-43.9 [facility] Work Phone: [phone] Erythrocyte distribution width (RBC) [Ratio] 17.0 % 11.6-14.6 [facility] Work Phone: [phone] Immature granulocytes/100 WBC (Bld) 0.400 % 0.0-0.9 [facility] Work Phone: [phone] Comment on above: IG% - Immature Granu locytes (promyelocytes, myelocytes and metamyelocytes) > 1% indicates that a LEFT SHIFT is Present. MCH (RBC) [Entitic mass] 33.1 pg 27.0-32.0 [facility] Work Phone: [phone] Nucleated RBC/100 WBC (Bld) [Ratio] 0.7 % 0-5 [facility] Work Phone: [phone] MCHC Auto (RBC) [Mass/Vol]on 04-26-2022 MCHC (RBC) [Mass/Vol] 33.6 g/dL 32-36 [facility] Work Phone: [phone] No Panel Informationon 04-26 Estimated Creatinine Clearance Calc 53.45 ml/min [facility] Work Phone: Estimated GFR (MDRD) Amer 77 mL/min >60 [facility] Work Phone: Comment on above: GFR Calc Estimated GFR (MDRD) Non-Af Amer 63 mL/min >60 [facility] Work Phone: Comment on above: Non- GFR Calc Vitamin D 25-Hydroxy 64.7 ng/mL [facility] Work Phone: Comment on above: Vitamin D 25(OH) Sta tus Range Deficiency <20 ng/mL (50nmol/L) Insufficiency 20 - 30 ng/mL (50 - 75 nmol/L) Sufficiency 30 - 100 ng/mL (75 - 250 nmol/L) Toxicity >100 ng/mL (>250 nmol/L) Platelets bldon 04-26-2022 Platelets (Bld) [#/Vol] 195 10*3/uL 150-450 [facility] Work Phone: Serum or plasma albumin amanda urement (mass/volume)on 04-26-2022 Albumin [Mass/Vol] 3.2 g/dL 3.2-5.[address] [facility] Work Phone: Serum or plasma albumin/glob ulin mass ratioon 04-26-2022 Albumin/Globulin [Mass ratio] 1.0 {ratio} 0.9-2.4 [facility] Work Phone: Serum or plasma calcium amanda urement (mass/volume)on 04-26-2022 Calcium [Mass/Vol] 9.0 mg/dL 8.5-10.[address] [facility] Work Phone: Serum or plasma creatinine m easurement (mass/volume)on 04-26-2022 Creatinine [Mass/Vol] 0.93 mg/dL 0.55-1.02 [facility] Work Phone: Comment on above: The validity of the calculated GFR & GFRAA in patients over 70 years has not been determined. Clinical correlation is essential. Serum or plasma urea nitroge n measurement (mass/volume)on 04-26-2022 Urea nitrogen [Mass/Vol] 23 mg/dL 7-18 [facility] Work Phone: Thin prep Papanicolaou smear with manual screeningon 04-26-2022 Thin prep Papanicolaou smear with manual screening 50 U/L 15-37 [facility] Work Phone: Thin prep Papanicolaou smear with manual screening 5 5-15 [facility] Work Phone: Basophil percentageOrdered B y: Dr. Calvillo on 04-19-2022 Cholesterol [Mass/Vol] 133 mg/dL <200 [facility] Comment on above: <200 mg/dL Desirable 200-240 mg/dL Borderline >240 mg/dL High Risk Triglyceride [Mass/Vol] 260 mg/dL High <199 [facility] Comment on above: The drugs N-Acetylcy steine and Metamizole may falsely depress this assay.Serum Triglycerides Reference Interval Normal <150 mg/dL Borderline high 150 - 199 mg/dL High 200 - 499 mg/dL Very High > or = 500 mg/dL Blood platelet adequacy dete ction by light microscopyon 04-19-2022 Platelets LM Ql (Bld) ADEQUATE ADEQ [facility] Work Phone: Blood polychromasia detectio n by light microscopyOrdered By: Dr. Calvillo on 04-19-2022 Polychromasia LM Ql (Bld) 1+ [facility] Cholesterol in VLDL [Mass/Vo l]Ordered By: Myron Calvillo on 04-19-2022 VLDL Cholesterol 52 mg/dL High 5-40 [facility] Laboratory - Chemistry and C hemistry - challengeOrdered By: Dr. Calvillo on 04-19-2022 Free T4 [Mass/Vol] 1.07 ng/dL 0.76-1.[address] [facility] Laboratory - Hematology and Cell countsOrdered By: Dr. Calvillo on 04-19-2022 Anisocytosis Ql (Bld) 1+ [facility] No Panel InformationOrdered By: Dr. Calvillo on 04-19-2022 Thyroid Stimulating Hormone (TSH) 1.74 uIU/mL 0.358-3.74 [facility] Polychromasia LM Ql (Bld)Ord ered By: Myron Calvillo on 04-19-2022 Polychromasia 1+ [facility] Review by pathologistOrdered By: Dr. Calvillo on 04-19-2022 Pathologist review Marcial (Unsp spec) [Interp] Reviewed [facility] Comment on above: Previous reported re sult: Anastasia schwab Edited by: RGOROBERT on 04/20/22:1301Leukopenia and neutropenia. Clinical correlation necessary.Iam Mcclure M.D. 04/20/22 AMENDED REPORT 04/20/22 1301 PATH REV previously reported as: Anastasia schwab Serum or plasma cholesterol in HDL measurement (mass/volume)Ordered By: Dr. Calvillo on 04-19-2022 Cholesterol in HDL [Mass/Vol] 39 mg/dL Low >40 [facility] Comment on above: The drugs N-Acetylcy steine and Metamizole may falsely depress this assay. Reference Range HDL <40 mg/dL Low HDL Cholesterol HDL >or= 60 mg/dL High HDL Cholesterol Serum or plasma cholesterol in VLDL measurement (mass/volume)Ordered By: Dr. Calvillo on 04-19-2022 Cholesterol in VLDL [Mass/Vol] 52 mg/dL High 5-40 [facility] Serum or plasma low density lipoprotein (LDL) cholesterol measurement (mass/volume)Ordered By: Dr. Calvillo on 04-19-2022 Cholesterol in LDL [Mass/Vol] 42 mg/dL 0-130 [facility] Thin prep Papanicolaou smear with manual screeningon 04-19-2022 Thin prep Papanicolaou smear with manual screening 176 U/L 84-246 [facility] Work Phone: Blood manual differential co mment interpretation (narrative result)on 03-16-2022 Manual differential comment Marcial (Bld) [Interp] SCANNED [facility] Work Phone: Comment on above: NEUTROPENIA NOTED No Panel Informationon 03-16 CA 15-3 Antigen 61.6 U/mL 0.0-25.0 [facility] Work Phone: Comment on above: [employer] El ectrochemiluminescence Immunoassay(ECLIA)Values obtained with different assay methods or kits cannotbe used interchangeably. Results cannot be interpreted asabsolute evidence of the presence or absence of malignantdisease.Performed at: [facility] [id number] [place], [place] [id number] Director: Reese Willingham PhD, Phone: [phone] CA 27.29 84.6 U/mL 0.0-38.6 [facility] Work Phone: Comment on above: Siemens Centaur Immu nochemiluminometric Methodology (ICMA)Values obtained with different assay methods or kits cannotbe used interchangeably. Results cannot be interpreted asabsolute evidence of the presence or absence of malignantdisease. No Panel Informationon 02-09 D-Dimer Quantitative (PE/DVT) 0.28 FEU/ug/m 0.27-0.49 [facility] Comment on above: NORMAL D-Dimer level (<0.50) indicates no DVT or PE. RBC morphologyon 02-09-2022 RBC morphology finding Nom (Bld) N CYTIC NORMAL NORM C&C [facility] RBC morphology finding Nom ( Bld)on 02-09-2022 Red Blood Cell Morphology N CYTIC NORMAL NORM C&C [facility] Laboratory - Chemistry and C hemistry - challengeon 01-14-2022 Free T4 [Mass/Vol] 1.13 ng/dL 0.76-1.[address] [facility] Work Phone: No Panel Informationon 01-14 Thyroid Stimulating Hormone (TSH) 4.33 uIU/mL 0.358-3.74 [facility] Work Phone: Absolute lymphocyte counton 01-11-2022 Lymphocytes Auto (Unsp spec) [#/Vol] 0.82 10*3/uL 0.83-4.51 [facility] Work Phone: Basophil percentageon 2021 Basophil percentage 3.6 mg/dL 2.5-4.9 [facility] Work Phone: Basophils/100 WBC (Bld) 0.4 % 0-1 [facility] Work Phone: Bilirubin [Mass/Vol] 0.40 mg/dL 0.20-1.00 [facility] Work Phone: Comment on above: For patients on eltr ombopag therapy, use of Dimension [place] TBIL is not recommended. Chloride [Moles/Vol] 102 mmol/L 98-107 [facility] Work Phone: Eosinophils/100 WBC (Bld) 1.9 % 0-5 [facility] Work Phone: Glucose [Mass/Vol] 169 mg/dL 74-[address] [facility] Work Phone: Comment on above: Fasting Glucose resu lt greater than or equal to 126 mg/dL suggests DIABETES MELLITUS per A.D.A. criteria. Neutrophils (Bld) [#/Vol] 4.0 10*3/uL 2.0-7.7 [facility] Work Phone: Neutrophils/100 WBC (Bld) 74.3 % 47-70 [facility] Work Phone: Potassium [Moles/Vol] 4.1 mmol/L 3.5-5.1 [facility] Work Phone: Protein [Mass/Vol] 6.7 g/dL 6.4-8.[address] [facility] Work Phone: Sodium [Moles/Vol] 138 mmol/L 136-[address] [facility] Work Phone: WBC (Bld) [#/Vol] 5.4 10*3/uL 4.4-11.[address] [facility] Work Phone: Blood erythrocytes count (nu mber/volume)on 01-11-2022 RBC (Bld) [#/Vol] 4.25 10*6/uL 4.2-5.4 [facility] Work Phone: Blood hemoglobin measurement (mass/volume)on 01-11-2022 Hemoglobin (Bld) [Mass/Vol] 12.8 g/dL 12.0-15.0 [facility] Work Phone: Blood lymphocytes/100 leukoc yteson 01-11-2022 Lymphocytes/100 WBC (Bld) 15.2 % 19-41 [facility] Work Phone: Blood monocytes/100 leukocyt eson 01-11-2022 Monocytes/100 WBC (Bld) 7.8 % 0-10 [facility] Work Phone: Blood platelet mean volumeon 01-11-2022 Platelet mean volume (Bld) [Entitic vol] 9.5 fL 6.2-12.0 [facility] Work Phone: [phone] Determination of erythrocyte mean corpuscular volume (MCV)on 01-11-2022 MCV (RBC) [Entitic vol] 90.8 fL 81-99 [facility] Work Phone: Hematocrit Auto (Bld) [Volum e fraction]on 01-11-2022 Hematocrit (Bld) [Volume fraction] 38.6 % 37-47 [facility] Work Phone: [phone] Laboratory - Chemistry and C hemistry - challengeon 01-11-2022 ALP [Catalytic activity/Vol] 199 U/L 45-117 [facility] Work Phone: ALT [Catalytic activity/Vol] 34 U/L 13-56 [facility] Work Phone: CO2 [Moles/Vol] 29.0 mmol/L 21.0-32.0 [facility] Work Phone: [phone] Globulin (S) [Mass/Vol] 3.6 g/dL 2.2-4.2 [facility] Work Phone: [phone] Urea nitrogen/Creatinine [Mass ratio] 14.9 mg/mg 10-20 [facility] Work Phone: Laboratory - Hematology and Cell countson 01-11-2022 Erythrocyte distribution width (RBC) [Entitic vol] 47.1 fL 35.1-43.9 [facility] Work Phone: Erythrocyte distribution width (RBC) [Ratio] 14.1 % 11.6-14.6 [facility] Work Phone: Immature granulocytes/100 WBC (Bld) 0.400 % 0.0-0.9 [facility] Work Phone: Comment on above: IG% - Immature Granu locytes (promyelocytes, myelocytes and metamyelocytes) > 1% indicates that a LEFT SHIFT is Present. MCH (RBC) [Entitic mass] 30.1 pg 27.0-32.0 [facility] Work Phone: Nucleated RBC/100 WBC (Bld) [Ratio] 0 % 0-5 [facility] Work Phone: MCHC Auto (RBC) [Mass/Vol]on 01-11-2022 MCHC (RBC) [Mass/Vol] 33.2 g/dL 32-36 [facility] Work Phone: No Panel Informationon 01-11 CA 15-3 Antigen 60.7 U/mL [facility] Work Phone: Comment on above: [employer] El ectrochemiluminescence Immunoassay(ECLIA)Values obtained with different assay methods or kits cannotbe used interchangeably. Results cannot be interpreted asabsolute evidence of the presence or absence of malignantdisease.Performed at: [facility] Director: Reese Willingham PhD, Phone: [phone] CA 27.29 82.9 U/mL [facility] Work Phone: Comment on above: Siemens Centaur Immu nochemiluminometric Methodology (ICMA)Values obtained with different assay methods or kits cannotbe used interchangeably. Results cannot be interpreted asabsolute evidence of the presence or absence of malignantdisease. Estimated Creatinine Clearance Calc 44.21 ml/min [facility] Work Phone: Estimated GFR (MDRD) Amer 61 mL/min >60 [facility] Work Phone: Comment on above: GFR Calc Estimated GFR (MDRD) Non-Af Amer 50 mL/min >60 [facility] Work Phone: Comment on above: Non- GFR Calc Vitamin D 25-Hydroxy 94.8 ng/mL [facility] Work Phone: Comment on above: Vitamin D 25(OH) Sta tus Range Deficiency <20 ng/mL (50nmol/L) Insufficiency 20 - 30 ng/mL (50 - 75 nmol/L) Sufficiency 30 - 100 ng/mL (75 - 250 nmol/L) Toxicity >100 ng/mL (>250 nmol/L) Platelets bldon 01-11-2022 Platelets (Bld) [#/Vol] 249 10*3/uL 150-450 [facility] Work Phone: Serum or plasma albumin amanda urement (mass/volume)on 01-11-2022 Albumin [Mass/Vol] 3.1 g/dL 3.2-5.[address] [facility] Work Phone: Serum or plasma albumin/glob ulin mass ratioon 01-11-2022 Albumin/Globulin [Mass ratio] 0.9 {ratio} 0.9-2.4 [facility] Work Phone: Serum or plasma calcium amanda urement (mass/volume)on 01-11-2022 Calcium [Mass/Vol] 8.6 mg/dL 8.5-10.[address] [facility] Work Phone: Serum or plasma creatinine m easurement (mass/volume)on 01-11-2022 Creatinine [Mass/Vol] 1.14 mg/dL 0.55-1.02 [facility] Work Phone: Comment on above: The validity of the calculated GFR & GFRAA in patients over 70 years has not been determined. Clinical correlation is essential. Serum or plasma urea nitroge n measurement (mass/volume)on 01-11-2022 Urea nitrogen [Mass/Vol] 17 mg/dL 7-18 [facility] Work Phone: Thin prep Papanicolaou smear with manual screeningon 01-11-2022 Thin prep Papanicolaou smear with manual screening 42 U/L 15-37 [facility] Work Phone: Thin prep Papanicolaou smear with manual screening 7 5-15 [facility] Work Phone: Thin prep Papanicolaou smear with manual screening 185 U/L 84-246 [facility] Work Phone: Absolute lymphocyte counton 11-30-2021 Lymphocytes Auto (Unsp spec) [#/Vol] 0.88 10*3/uL 0.83-4.51 [facility] Work Phone: Basophil percentageon 2021 Basophil percentage 25-50 SEEN /hpf 0-5 [facility] Work Phone: Basophils/100 WBC (Bld) 0.6 % 0-1 [facility] Work Phone: Bilirubin [Mass/Vol] 0.40 mg/dL 0.20-1.00 [facility] Work Phone: Comment on above: For patients on eltr ombopag therapy, use of Dimension [place] TBIL is not recommended. Chloride [Moles/Vol] 109 mmol/L 98-107 [facility] Work Phone: Eosinophils/100 WBC (Bld) 2.4 % 0-5 [facility] Work Phone: Glucose [Mass/Vol] 105 mg/dL 74-[address] [facility] Work Phone: Comment on above: Fasting Glucose resu lt from 100 to 125 mg/dL suggests IMPAIRED HOMEOSTASIS per A.D.A. criteria. Neutrophils (Bld) [#/Vol] 3.2 10*3/uL 2.0-7.7 [facility] Work Phone: Neutrophils/100 WBC (Bld) 67.8 % 47-70 [facility] Work Phone: Potassium [Moles/Vol] 3.7 mmol/L 3.5-5.1 [facility] Work Phone: Protein [Mass/Vol] 6.1 g/dL 6.4-8.[address] [facility] Work Phone: Sodium [Moles/Vol] 140 mmol/L 136-[address] [facility] Work Phone: WBC (Bld) [#/Vol] 4.7 10*3/uL 4.4-11.[address] [facility] Work Phone: Bilirubin Test strip Ql (U)o n 11-30-2021 Bilirubin Ql (U) Negative Negative [facility] Work Phone: Blood erythrocytes count (nu mber/volume)on 11-30-2021 RBC (Bld) [#/Vol] 4.00 10*6/uL 4.2-5.4 [facility] Work Phone: Blood hemoglobin measurement (mass/volume)on 11-30-2021 Hemoglobin (Bld) [Mass/Vol] 12.3 g/dL 12.0-15.0 [facility] Work Phone: Blood lymphocytes/100 leukoc yteson 11-30-2021 Lymphocytes/100 WBC (Bld) 18.9 % 19-41 [facility] Work Phone: Blood monocytes/100 leukocyt eson 11-30-2021 Monocytes/100 WBC (Bld) 9.9 % 0-10 [facility] Work Phone: Blood platelet mean volumeon 11-30-2021 Platelet mean volume (Bld) [Entitic vol] 9.8 fL 6.2-12.0 [facility] Work Phone: Determination of erythrocyte mean corpuscular volume (MCV)on 11-30-2021 MCV (RBC) [Entitic vol] 92.0 fL 81-99 [facility] Work Phone: Hematocrit Auto (Bld) [Volum e fraction]on 11-30-2021 Hematocrit (Bld) [Volume fraction] 36.8 % 37-47 [facility] Work Phone: Ketones Test strip Ql (U)on 11-30-2021 Ketones Ql (U) Negative Negative [facility] Work Phone: Laboratory - Chemistry and C hemistry - challengeon 11-30-2021 ALP [Catalytic activity/Vol] 150 U/L 45-117 [facility] Work Phone: ALT [Catalytic activity/Vol] 37 U/L 13-56 [facility] Work Phone: CO2 [Moles/Vol] 27.0 mmol/L 21.0-32.0 [facility] Work Phone: [phone] Globulin (S) [Mass/Vol] 3.1 g/dL 2.2-4.2 [facility] Work Phone: Urea nitrogen/Creatinine [Mass ratio] 15.4 mg/mg 10-20 [facility] Work Phone: [phone] Laboratory - Hematology and Cell countson 11-30-2021 Erythrocyte distribution width (RBC) [Entitic vol] 45.4 fL 35.1-43.9 [facility] Work Phone: Erythrocyte distribution width (RBC) [Ratio] 13.4 % 11.6-14.6 [facility] Work Phone: [phone] Immature granulocytes/100 WBC (Bld) 0.400 % 0.0-0.9 [facility] Work Phone: Comment on above: IG% - Immature Granu locytes (promyelocytes, myelocytes and metamyelocytes) > 1% indicates that a LEFT SHIFT is Present. MCH (RBC) [Entitic mass] 30.8 pg 27.0-32.0 [facility] Work Phone: Nucleated RBC/100 WBC (Bld) [Ratio] 0 % 0-5 [facility] Work Phone: MCHC Auto (RBC) [Mass/Vol]on 11-30-2021 MCHC (RBC) [Mass/Vol] 33.4 g/dL 32-36 [facility] Work Phone: [phone] Mucus LM Ql (Urine sed)on Mucus Ql (Urine sed) 0 SEEN /hpf [facility] Work Phone: Nitrite Test strip Ql (U)on 11-30-2021 Nitrite Ql (U) Positive Negative [facility] Work Phone: No Panel Informationon 11-30 CA 15-3 Antigen 49.1 U/mL [facility] Work Phone: Comment on above: [employer] El ectrochemiluminescence Immunoassay(ECLIA)Values obtained with different assay methods or kits cannotbe used interchangeably. Results cannot be interpreted asabsolute evidence of the presence or absence of malignantdisease.Performed at: [id number] [id number] Director: Reese Willingham PhD, Phone: [phone] CA 27.29 69.0 U/mL [facility] Work Phone: Comment on above: Siemens [employer] Immu nochemiluminometric Methodology (ICMA)Values obtained with different assay methods or kits cannotbe used interchangeably. Results cannot be interpreted asabsolute evidence of the presence or absence of malignantdisease. Estimated Creatinine Clearance Calc 48.47 ml/min [facility] Work Phone: Estimated GFR (MDRD) Amer 68 mL/min >60 [facility] Work Phone: Comment on above: GFR Calc Estimated GFR (MDRD) Non-Af Amer 56 mL/min >60 [facility] Work Phone: Comment on above: Non- GFR Calc Platelets bldon 11-30-2021 Platelets (Bld) [#/Vol] 198 10*3/uL 150-450 [facility] Work Phone: Protein Test strip Ql (U)on 11-30-2021 Protein Ql (U) 30 mg/dl Negative [facility] Work Phone: Serum or plasma albumin amanda urement (mass/volume)on 11-30-2021 Albumin [Mass/Vol] 3.0 g/dL 3.2-5.[address] [facility] Work Phone: Serum or plasma albumin/glob ulin mass ratioon 11-30-2021 Albumin/Globulin [Mass ratio] 1.0 {ratio} 0.9-2.4 [facility] Work Phone: Serum or plasma calcium amanda urement (mass/volume)on 11-30-2021 Calcium [Mass/Vol] 9.0 mg/dL 8.5-10.[address] [facility] Work Phone: Serum or plasma creatinine m easurement (mass/volume)on 11-30-2021 Creatinine [Mass/Vol] 1.04 mg/dL 0.55-1.02 [facility] Work Phone: Comment on above: The validity of the calculated GFR & GFRAA in patients over 70 years has not been determined. Clinical correlation is essential. Serum or plasma urea nitroge n measurement (mass/volume)on 11-30-2021 Urea nitrogen [Mass/Vol] 16 mg/dL 7-18 [facility] Work Phone: Squamous epithelial cells de tection in urine sediment by light microscopyon 11-30-2021 Epithelial cells.squamous LM Ql (Urine sed) 0-5 SEEN /hpf 5-10 [facility] Work Phone: Thin prep Papanicolaou smear with manual screeningon 11-30-2021 Thin prep Papanicolaou smear with manual screening 41 U/L 15-37 [facility] Work Phone: Thin prep Papanicolaou smear with manual screening 4 5-15 [facility] Work Phone: Thin prep Papanicolaou smear with manual screening 163 U/L 84-246 [facility] Work Phone: Urine blood detectionon - RBC Ql (U) 25 /ul Negative [facility] Work Phone: RBC Ql (U) 0-5 SEEN /hpf 0-5 [facility] Work Phone: Urine clarityon 11-30-2021 Clarity (U) Sl. Cloudy Clear [facility] Work Phone: Urine color determinationon 11-30-2021 Color (U) Yellow Yellow [facility] Work Phone: Urine glucose detectionon Glucose Ql (U) 1000 mg/dl Normal [facility] Work Phone: Urine leukocyte esterase det ection by dipstickon 11-30-2021 Leukocyte esterase Test strip Ql (U) 500 /ul Negative [facility] Work Phone: Urine pHon 11-30-2021 pH (U) 5.0 [pH] 5.0 - 8.0 [facility] Work Phone: Urine sediment bacteria coun t by microscopy (number/high power field)on 11-30-2021 Bacteria LM.HPF (Urine sed) [#/Area] 1 /[HPF] None Seen [facility] Work Phone: Urine specific gravity measu rementon 11-30-2021 Specific gravity (U) [Rel density] 1.015 1.002-1.030 [facility] Work Phone: Urobilinogen Auto test strip Ql (U)on 11-30-2021 Urobilinogen Ql (U) Normal mg/dl Normal [facility] Work Phone: Basophil percentageon 2021 Cholesterol [Mass/Vol] 123 mg/dL <200 [facility] Work Phone: Comment on above: <200 mg/dL Desirable 200-240 mg/dL Borderline >240 mg/dL High Risk Triglyceride [Mass/Vol] 171 mg/dL [facility] Work Phone: Comment on above: The drugs N-Acetylcy steine and Metamizole may falsely depress this assay.Serum Triglycerides Reference Interval Normal <150 mg/dL Borderline high 150 - 199 mg/dL High 200 - 499 mg/dL Very High > or = 500 mg/dL No Panel Informationon 11-09 Thyroid Stimulating Hormone (TSH) 10.00 uIU/mL 0.358-3.74 [facility] Work Phone: Serum or plasma cholesterol in HDL measurement (mass/volume)on 11-09-2021 Cholesterol in HDL [Mass/Vol] 40 mg/dL [facility] Work Phone: Comment on above: The drugs N-Acetylcy steine and Metamizole may falsely depress this assay. Reference Range HDL <40 mg/dL Low HDL Cholesterol HDL >or= 60 mg/dL High HDL Cholesterol Serum or plasma cholesterol in VLDL measurement (mass/volume)on 11-09-2021 Cholesterol in VLDL [Mass/Vol] 34 mg/dL 5-40 [facility] Work Phone: Serum or plasma low density lipoprotein (LDL) cholesterol measurement (mass/volume)on 11-09-2021 Cholesterol in LDL [Mass/Vol] 49 mg/dL 0-130 [facility] Work Phone: Basophil percentageon 2021 Creatinine [Mass/Vol] 1.0 mg/dL 0.55-1.02 [facility] Work Phone: Laboratory - Chemistry and C hemistry - challengeon 11-05-2021 GFR/1.73 sq M.predicted among non-blacks MDRD (S/P/Bld) [Vol rate/Area] 56.0000 mL/min/{1.73_m2} >60 [facility] Work Phone: Vital Signs Date Time Vital Sign Value Performing Clinician Faci lity 05-30-2025 14:21-0400 Body height 167.[address] Rae Aguirre MD Work Phone: [facility] 05-30-2025 14:21-0400 Body mass index (BMI) [Ratio] 36.8 kg/m2 Dr. Rae Aguirre MD Work Phone: [facility] 05-30-2025 14:21-0400 Body temperature 98.2 [degF] Dr. Rae Aguirre MD Work Phone: [facility] 05-30-2025 14:21-0400 Body weight 103.[address] Rae Aguirre MD Work Phone: [facility] 05-30-2025 14:21-0400 Diastolic blood pressure 61 mm[Hg] Dr. Rae Aguirre MD Work Phone: [facility] 05-30-2025 14:21-0400 Heart rate 62 /min Dr. Rae Aguirre MD Work Phone: [facility] 05-30-2025 14:21-0400 Respiratory rate 16 /min Dr. Rae Aguirre MD Work Phone: [facility] 05-30-2025 14:21-0400 SaO2% (BldA) [Mass fraction] 97 % Dr. Rae Aguirre MD Work Phone: [facility] 05-30-2025 14:21-0400 Systolic blood pressure 132 mm[Hg] Dr. Rae Aguirre MD Work Phone: [phone])[phone] [address] 05-02-2025 10:44-0400 Body height 167.[address] Rae Aguirre MD Work Phone: [phone] [place] [address] 05-02-2025 10:44-0400 Body mass index (BMI) [Ratio] 36.3 kg/m2 Dr. Rae Aguirre MD Work Phone: [phone])702-716654 [place] [address] 05-02-2025 10:44-0400 Body temperature 98.2 [degF] Dr. Rae Aguirre MD Work Phone: 0(751)849-724384 [place] [address] 05-02-2025 10:44-0400 Body weight 102.[address] Rae Aguirre MD Work Phone: 3(084)[phone] [address] 05-02-2025 10:44-0400 Diastolic blood pressure 70 mm[Hg] Dr. Rae Aguirre MD Work Phone: [phone])145-980284 [place] [address] 05-02-2025 10:44-0400 Heart rate 68 /min Dr. Rae Aguirre MD Work Phone: [facility] 05-02-2025 10:44-0400 Respiratory rate 18 /min Dr. Rae Aguirre MD Work Phone: [phone] [place] [address] 05-02-2025 10:44-0400 SaO2% (BldA) [Mass fraction] 93 % Dr. Rae Aguirre MD Work Phone: [facility] 05-02-2025 10:44-0400 Systolic blood pressure 131 mm[Hg] Dr. Rae Aguirre MD Work Phone: [facility] 04-04-2025 14:52-0400 Body height 167.[address] Rae Aguirre MD Work Phone: [facility] 04-04-2025 14:52-0400 Body mass index (BMI) [Ratio] 36.6 kg/m2 Dr. Rae Aguirre MD Work Phone: [phone])106-639754 [place] [address] 04-04-2025 14:52-0400 Body temperature 97.9 [degF] Dr. Rae Aguirre MD Work Phone: [phone](911)[phone] [place] [address] 04-04-2025 14:52-0400 Body weight 103.[address] Rae Aguirre MD Work Phone: 1([phone])[phone] [place] [address] 04-04-2025 14:52-0400 Diastolic blood pressure 70 mm[Hg] Dr. Rae Aguirre MD Work Phone: [phone])363-570954 [place] [address] 04-04-2025 14:52-0400 Heart rate 84 /min Dr. Rae Aguirre MD Work Phone: [phone] [place] [address] 04-04-2025 14:52-0400 Respiratory rate 18 /min Dr. Rae Aguirre MD Work Phone: [phone] [place] [address] 04-04-2025 14:52-0400 SaO2% (BldA) [Mass fraction] 93 % Dr. Rae Aguirre MD Work Phone: [phone])283-665084 [place] [address] 04-04-2025 14:52-0400 Systolic blood pressure 126 mm[Hg] Dr. Rae Aguirre MD Work Phone: 0(054)104-042054 [place] [address] 03-21-2025 13:20-0400 Body height 167.[address] Rae Aguirre MD Work Phone: [phone] [address] [place], [place] [address] 03-21-2025 13:20-0400 Body mass index (BMI) [Ratio] 35.8 kg/m2 Dr. Rae Aguirre MD Work Phone: 2(604)942-094284 [place] [address] 03-21-2025 13:20-0400 Body weight 100.[address] Rae Aguirre MD Work Phone: [facility] 03-21-2025 13:20-0400 Diastolic blood pressure 79 mm[Hg] Dr. Rae Aguirre MD Work Phone: [facility] 03-21-2025 13:20-0400 Heart rate 106 /min Dr. Rae Aguirre MD Work Phone: [facility] 03-21-2025 13:20-0400 Respiratory rate 16 /min Dr. Rae Aguirre MD Work Phone: [facility] 03-21-2025 13:20-0400 SaO2% (BldA) [Mass fraction] 93 % Dr. Rae Aguirre MD Work Phone: [facility] 03-21-2025 13:20-0400 Systolic blood pressure 131 mm[Hg] Dr. Rae Aguirre MD Work Phone: [facility] 03-14-2025 11:08-0400 Body height 167.[address] Rae Aguirre MD Work Phone: [facility] 03-14-2025 11:08-0400 Body mass index (BMI) [Ratio] 36.8 kg/m2 Dr. Rae Aguirre MD Work Phone: [facility] 03-14-2025 11:08-0400 Body temperature 98.4 [degF] Dr. Rae Aguirre MD Work Phone: [facility] 03-14-2025 11:08-0400 Body weight 103.[address] Rae Aguirre MD Work Phone: [facility] 03-14-2025 11:08-0400 Diastolic blood pressure 62 mm[Hg] Dr. Rae Aguirre MD Work Phone: [facility] 03-14-2025 11:08-0400 Heart rate 94 /min Dr. Rae Aguirre MD Work Phone: [facility] 03-14-2025 11:08-0400 Respiratory rate 18 /min Dr. Rae Aguirre MD Work Phone: [facility] 03-14-2025 11:08-0400 Systolic blood pressure 127 mm[Hg] Dr. Rae Aguirre MD Work Phone: 0(916)894-706584 [place] [address] 03-14-2025 10:58-0400 Body mass index (BMI) [Ratio] 36.8 kg/m2 Dr. Rae Aguirre MD Work Phone: 0(034)188-615984 [place] [address] 03-14-2025 10:58-0400 Body temperature 98.4 [degF] Dr. Rae Aguirre MD Work Phone: 9(570)171-152354 [place] [address] 03-14-2025 10:58-0400 Diastolic blood pressure 62 mm[Hg] Dr. Rae Aguirre MD Work Phone: 3(577)993-585684 [place] [address] 03-14-2025 10:58-0400 Heart rate 94 /min Dr. Rae Aguirre MD Work Phone: 2(684)540-073284 [place] [address] 03-14-2025 10:58-0400 Respiratory rate 18 /min Dr. Rae Aguirre MD Work Phone: 4(132)534-625384 [place] [address] 03-14-2025 10:58-0400 SaO2% (BldA) [Mass fraction] 95 % Dr. Rae Aguirre MD Work Phone: [facility] 03-14-2025 10:58-0400 Systolic blood pressure 127 mm[Hg] Dr. Rae Aguirre MD Work Phone: 8(056)939-585084 [place] [address] 02-14-2025 10:43-0400 Body height 167.[address] Rae Aguirre MD Work Phone: 8(332)082-975254 [place] [address] 02-14-2025 10:43-0400 Body mass index (BMI) [Ratio] 37 kg/m2 Dr. Rae Aguirre MD Work Phone: 4(356)168-726584 [place] [address] 02-14-2025 10:43-0400 Body temperature 98.2 [degF] Dr. Rae Aguirre MD Work Phone: [facility] 02-14-2025 10:43-0400 Body weight 103.[address] Rae Aguirre MD Work Phone: [facility] 02-14-2025 10:43-0400 Diastolic blood pressure 77 mm[Hg] Dr. Rae Aguirre MD Work Phone: 4(074)857-587584 [place] [address] 02-14-2025 10:43-0400 Heart rate 84 /min Dr. Rae Aguirre MD Work Phone: 4(295)964-108854 [place] [address] 02-14-2025 10:43-0400 Respiratory rate 18 /min Dr. Rae Aguirre MD Work Phone: 4(672)455-805954 [place] [address] 02-14-2025 10:43-0400 SaO2% (BldA) [Mass fraction] 93 % Dr. Rae Aguirre MD Work Phone: 6(024)631-477284 [place] [address] 02-14-2025 10:43-0400 Systolic blood pressure 165 mm[Hg] Dr. Rae Aguirre MD Work Phone: 8(752)882-347087 [address] 02-12-2025 13:40-0400 Body height 167.[address] Rae Aguirre MD Work Phone: 1(036)410-379854 [place] [address] 02-12-2025 13:40-0400 Body mass index (BMI) [Ratio] 37.2 kg/m2 Dr. Rae Aguirre MD Work Phone: 3(810)153-315584 [place] [address] 02-12-2025 13:40-0400 Body temperature 97.1 [degF] Dr. Rae Aguirre MD Work Phone: 4(445)210-507284 [place] [address] 02-12-2025 13:40-0400 Body weight 104.[address] Rae Aguirre MD Work Phone: 7(657)122-892184 [place] [address] 02-12-2025 13:40-0400 Diastolic blood pressure 67 mm[Hg] Dr. Rae Aguirre MD Work Phone: [facility] 02-12-2025 13:40-0400 Heart rate 80 /min Dr. Rae Aguirre MD Work Phone: 5(334)611-819884 [place] [address] 02-12-2025 13:40-0400 Respiratory rate 18 /min Dr. Rae Aguirre MD Work Phone: 0(612)574-663354 [place] [address] 02-12-2025 13:40-0400 SaO2% (BldA) [Mass fraction] 96 % Dr. Rae Aguirre MD Work Phone: 6(859)942-190584 [place] [address] 02-12-2025 13:40-0400 Systolic blood pressure 114 mm[Hg] Dr. Rae Aguirre MD Work Phone: 2(248)818-475254 [place] [address] 01-24-2025 13:02-0400 Body height 167.[address] Rae Aguirre MD Work Phone: 6(314)549-465654 [place] [address] 01-24-2025 13:02-0400 Body mass index (BMI) [Ratio] 37.2 kg/m2 Dr. Rae Aguirre MD Work Phone: 5(545)863-398554 [place] [address] 01-24-2025 13:02-0400 Body temperature 97.6 [degF] Dr. Rae Aguirre MD Work Phone: 5(893)280-439854 [place] [address] 01-24-2025 13:02-0400 Body weight 104.[address] Rae Aguirre MD Work Phone: 6(901)007-452754 [place] [address] 01-24-2025 13:02-0400 Diastolic blood pressure 75 mm[Hg] Dr. Rae Aguirre MD Work Phone: 1(653)396-493354 [place] [address] 01-24-2025 13:02-0400 Heart rate 67 /min Dr. Rae Aguirre MD Work Phone: 3(330)194-196654 [place] [address] 01-24-2025 13:02-0400 Respiratory rate 16 /min Dr. Rae Aguirre MD Work Phone: 3(119)008-316054 [place] [address] 01-24-2025 13:02-0400 SaO2% (BldA) [Mass fraction] 95 % Dr. Rae Aguirre MD Work Phone: [facility] 01-24-2025 13:02-0400 Systolic blood pressure 138 mm[Hg] Dr. Rae Aguirre MD Work Phone: [facility] 01-17-2025 13:03-0400 Body mass index (BMI) [Ratio] 37.1 kg/m2 Dr. Rae Aguirre MD Work Phone: 4(125)411-209184 [place] [address] 01-17-2025 13:03-0400 Body temperature 98.5 [degF] Dr. Rae Aguirre MD Work Phone: 2(936)084-980254 [place] [address] 01-17-2025 13:03-0400 Body weight 104.[address] Rae Aguirre MD Work Phone: 3(547)589-127154 [place] [address] 01-17-2025 13:03-0400 Diastolic blood pressure 74 mm[Hg] Dr. Rae Aguirre MD Work Phone: 2(990)861-268054 [place] [address] 01-17-2025 13:03-0400 Heart rate 66 /min Dr. Rae Aguirre MD Work Phone: 3(627)867-393954 [place] [address] 01-17-2025 13:03-0400 Respiratory rate 16 /min Dr. Rae Aguirre MD Work Phone: 3(335)356-294954 [place] [address] 01-17-2025 13:03-0400 SaO2% (BldA) [Mass fraction] 96 % Dr. Rae Aguirre MD Work Phone: 8(606)480-332187 [address] 01-17-2025 13:03-0400 Systolic blood pressure 128 mm[Hg] Dr. Rae Aguirre MD Work Phone: 2(079)393-888454 [place] [address] 12-20-2024 10:01-0400 Body mass index (BMI) [Ratio] 37.1 kg/m2 Dr. Rae Aguirre MD Work Phone: 6(017)548-515684 [place] [address] 12-20-2024 10:01-0400 Body temperature 98.3 [degF] Dr. Rae Aguirre MD Work Phone: [facility] 12-20-2024 10:01-0400 Body weight 104.[address] Rae Aguirre MD Work Phone: [facility] 12-20-2024 10:01-0400 Diastolic blood pressure 68 mm[Hg] Dr. Rae Aguirre MD Work Phone: 9(762)055-621984 [place] [address] 12-20-2024 10:01-0400 Heart rate 72 /min Dr. Rae Aguirre MD Work Phone: 4(925)953-658484 [place] [address] 12-20-2024 10:01-0400 Respiratory rate 18 /min Dr. Rae Aguirre MD Work Phone: 2(760)482-915854 [place] [address] 12-20-2024 10:01-0400 SaO2% (BldA) [Mass fraction] 94 % Dr. Rae Aguirre MD Work Phone: 9(478)047-879487 [address] 12-20-2024 10:01-0400 Systolic blood pressure 112 mm[Hg] Dr. Rae Aguirre MD Work Phone: 2(349)224-328454 [place] [address] 11-22-2024 14:24-0400 Body height 167.[address] Rae Aguirre MD Work Phone: 2(488)383-141754 [place] [address] 11-22-2024 14:24-0400 Body mass index (BMI) [Ratio] 36.9 kg/m2 Dr. Rae Aguirre MD Work Phone: 3(652)214-239584 [place] [address] 11-22-2024 14:24-0400 Body temperature 98.1 [degF] Dr. Rae Aguirre MD Work Phone: 0(356)571-465254 [place] [address] 11-22-2024 14:24-0400 Body weight 103.[address] Rae Aguirre MD Work Phone: 4(854)490-747654 [place] [address] 11-22-2024 14:24-0400 Diastolic blood pressure 76 mm[Hg] Dr. Rae Aguirre MD Work Phone: 6(335)614-680154 [place] [address] 11-22-2024 14:24-0400 Heart rate 77 /min Dr. Rae Aguirre MD Work Phone: [facility] 11-22-2024 14:24-0400 Respiratory rate 18 /min Dr. Rae Aguirre MD Work Phone: 8(723)969-600784 [place] [address] 11-22-2024 14:24-0400 SaO2% (BldA) [Mass fraction] 93 % Dr. Rae Aguirre MD Work Phone: 8(157)443-406084 [place] [address] 11-22-2024 14:24-0400 Systolic blood pressure 152 mm[Hg] Dr. Rae Aguirre MD Work Phone: 8(926)545-737154 [place] [address] 11-05-2024 22:00-0500 Body temperature 98.2 [degF] Dr. Rae Aguirre MD Work Phone: 9(491)359-219354 [place] [address] 11-05-2024 22:00-0500 Diastolic blood pressure 57 mm[Hg] Dr. Rae Aguirre MD Work Phone: 8(659)679-970254 [place] [address] 11-05-2024 22:00-0500 Heart rate 75 /min Dr. Rae Aguirre MD Work Phone: 2(516)331-257554 [place] [address] 11-05-2024 22:00-0500 Respiratory rate 18 /min Dr. Rae Aguirre MD Work Phone: 9(266)118-214554 [place] [address] 11-05-2024 22:00-0500 SaO2% (BldA) [Mass fraction] 96 % Dr. Rae Aguirre MD Work Phone: 0(895)362-484054 [place] [address] 11-05-2024 22:00-0500 Systolic blood pressure 141 mm[Hg] Dr. Rae Aguirre MD Work Phone: 1(436)115-775954 [place] [address] 11-05-2024 18:13-0500 Body height 167.[address] Rae Aguirre MD Work Phone: 0(322)285-863354 [place] [address] 11-05-2024 18:13-0500 Body mass index (BMI) [Ratio] 35.9 kg/m2 Dr. Rae Aguirre MD Work Phone: 5(891)599-321754 [place] [address] 11-05-2024 18:13-0500 Body weight 101.[address] Rae Agurire MD Work Phone: 5(065)200-616454 [place] [address] 10-25-2024 12:52-0500 Body mass index (BMI) [Ratio] 36.3 kg/m2 Dr. Rae Aguirre MD Work Phone: 1(262)557-953154 [place] [address] 10-25-2024 12:52-0500 Body temperature 97.6 [degF] Dr. Rae Aguirre MD Work Phone: 5(323)298-315554 [place] [address] 10-25-2024 12:52-0500 Body weight 102.[address] Rae Aguirre MD Work Phone: 9(695)471-274554 [place] [address] 10-25-2024 12:52-0500 Diastolic blood pressure 49 mm[Hg] Dr. Rae Aguirre MD Work Phone: 1(213)974-398054 [place] [address] 10-25-2024 12:52-0500 Heart rate 66 /min Dr. Rae Aguirre MD Work Phone: 8(119)746-978954 [place] [address] 10-25-2024 12:52-0500 Respiratory rate 16 /min Dr. Rae Aguirre MD Work Phone: 5(000)315-886154 [place] [address] 10-25-2024 12:52-0500 SaO2% (BldA) [Mass fraction] 96 % Dr. Rae Aguirre MD Work Phone: 4(011)099-375454 [place] [address] 10-25-2024 12:52-0500 Systolic blood pressure 105 mm[Hg] Dr. Rae Aguirre MD Work Phone: 2(060)476-438754 [place] [address] 10-18-2024 12:49-0500 Body mass index (BMI) [Ratio] 36.6 kg/m2 Dr. Rae Aguirre MD Work Phone: 1(317)071-907754 [place] [address] 10-18-2024 12:49-0500 Body temperature 97.6 [degF] Dr. Rae Aguirre MD Work Phone: 7(799)396-028454 [place] [address] 10-18-2024 12:49-0500 Body weight 102.[address] Rae Aguirre MD Work Phone: [facility] 10-18-2024 12:49-0500 Diastolic blood pressure 81 mm[Hg] Dr. Rae Aguirre MD Work Phone: [facility] 10-18-2024 12:49-0500 Heart rate 61 /min Dr. Rae Aguirre MD Work Phone: [facility] 10-18-2024 12:49-0500 Respiratory rate 16 /min Dr. Rae Aguirre MD Work Phone: [facility] 10-18-2024 12:49-0500 SaO2% (BldA) [Mass fraction] 94 % Dr. Rae Aguirre MD Work Phone: [facility] 10-18-2024 12:49-0500 Systolic blood pressure 129 mm[Hg] Dr. Rae Aguirre MD Work Phone: 9(679)520-864484 [place] [address] 09-20-2024 13:40-0500 Body mass index (BMI) [Ratio] 36.5 kg/m2 Dr. Rae Aguirre MD Work Phone: 1(891)620-226484 [place] [address] 09-20-2024 13:40-0500 Body temperature 98.3 [degF] Dr. Rae Aguirre MD Work Phone: [facility] 09-20-2024 13:40-0500 Body weight 102.[address] Rae Aguirre MD Work Phone: [facility] 09-20-2024 13:40-0500 Diastolic blood pressure 82 mm[Hg] Dr. Rae Aguirre MD Work Phone: [facility] 09-20-2024 13:40-0500 Heart rate 84 /min Dr. Rae Aguirre MD Work Phone: [facility] 09-20-2024 13:40-0500 Respiratory rate 18 /min Dr. Rae Aguirre MD Work Phone: 5(798)445-756287 [address] 09-20-2024 13:40-0500 SaO2% (BldA) [Mass fraction] 97 % Dr. Rae Aguirre MD Work Phone: 1(037)380-477984 [place] [address] 09-20-2024 13:40-0500 Systolic blood pressure 138 mm[Hg] Dr. Rae Aguirre MD Work Phone: 3(926)455-391854 [place] [address] 08-23-2024 09:59-0500 Body mass index (BMI) [Ratio] 36.6 kg/m2 Dr. Rae Aguirre MD Work Phone: 4(748)604-527954 [place] [address] 08-23-2024 09:59-0500 Body temperature 98.8 [degF] Dr. Rae Aguirre MD Work Phone: 7(501)598-003954 [place] [address] 08-23-2024 09:59-0500 Body weight 102.[address] Rae Aguirre MD Work Phone: 0(956)196-257254 [place] [address] 08-23-2024 09:59-0500 Diastolic blood pressure 71 mm[Hg] Dr. Rae Aguirre MD Work Phone: 4(614)152-128554 [place] [address] 08-23-2024 09:59-0500 Heart rate 80 /min Dr. Rae Aguirre MD Work Phone: 0(260)344-587854 [place] [address] 08-23-2024 09:59-0500 Respiratory rate 18 /min Dr. Rae Aguirre MD Work Phone: 4(886)512-524154 [place] [address] 08-23-2024 09:59-0500 SaO2% (BldA) [Mass fraction] 94 % Dr. Rae Aguirre MD Work Phone: 5(681)198-540554 [place] [address] 08-23-2024 09:59-0500 Systolic blood pressure 119 mm[Hg] Dr. Rae Aguirre MD Work Phone: 7(681)448-102454 [place] [address] 07-26-2024 13:33-0500 Body mass index (BMI) [Ratio] 36.3 kg/m2 Dr. Rae Aguirre MD Work Phone: 0(236)024-348154 [place] [address] 07-26-2024 13:33-0500 Body temperature 98.3 [degF] Dr. Rae Aguirre MD Work Phone: [facility] 07-26-2024 13:33-0500 Body weight 102.[address] Rae Aguirre MD Work Phone: [facility] 07-26-2024 13:33-0500 Diastolic blood pressure 64 mm[Hg] Dr. Rae Aguirre MD Work Phone: 3(136)288-555784 [place] [address] 07-26-2024 13:33-0500 Heart rate 69 /min Dr. Rae Aguirre MD Work Phone: 8(120)976-970384 [place] [address] 07-26-2024 13:33-0500 Respiratory rate 18 /min Dr. Rae Aguirre MD Work Phone: 4(610)152-125384 [place] [address] 07-26-2024 13:33-0500 SaO2% (BldA) [Mass fraction] 95 % Dr. Rae Aguirre MD Work Phone: [facility] 07-26-2024 13:33-0500 Systolic blood pressure 123 mm[Hg] Dr. Rae Aguirre MD Work Phone: [facility] 11-29-2023 13:49-0400 Body height 167.[address] Adolfo Aguirre Work Phone: 0(472)488-208984 [place] [address] 11-29-2023 13:49-0400 Body mass index (BMI) [Ratio] 36.5 kg/m2 Dr. Adolfo Aguirre Work Phone: [facility] 11-29-2023 13:49-0400 Body temperature 98 [degF] Dr. Adolfo Aguirre Work Phone: [facility] 11-29-2023 13:49-0400 Body weight 102.[address] Adolfo Aguirre Work Phone: [facility] 11-29-2023 13:49-0400 Diastolic blood pressure 68 mm[Hg] Dr. Adolfo Aguirre Work Phone: [facility] 11-29-2023 13:49-0400 Heart rate 70 /min Dr. Adolfo Aguirre Work Phone: [facility] 11-29-2023 13:49-0400 Respiratory rate 18 /min Dr. Adolfo Aguirre Work Phone: [facility] 11-29-2023 13:49-0400 SaO2% (BldA) [Mass fraction] 93 % Dr. Adolfo Aguirre Work Phone: [facility] 11-29-2023 13:49-0400 Systolic blood pressure 117 mm[Hg] Dr. Adolfo Aguirre Work Phone: [facility] 10-25-2023 12:01-0500 Body mass index (BMI) [Ratio] 36.4 kg/m2 Dr. Adolfo Aguirre Work Phone: [facility] 10-25-2023 12:01-0500 Body temperature 98.2 [degF] Dr. Adolfo Aguirre Work Phone: [facility] 10-25-2023 12:01-0500 Body weight 102.[address] Adolfo Aguirre Work Phone: [facility] 10-25-2023 12:01-0500 Diastolic blood pressure 79 mm[Hg] Dr. Adolfo Aguirre Work Phone: [facility] 10-25-2023 12:01-0500 Heart rate 78 /min Dr. Adolfo Aguirre Work Phone: [facility] 10-25-2023 12:01-0500 Respiratory rate 18 /min Dr. Adolfo Aguirre Work Phone: [facility] 10-25-2023 12:01-0500 SaO2% (BldA) [Mass fraction] 95 % Dr. Adolfo Aguirre Work Phone: [facility] 10-25-2023 12:01-0500 Systolic blood pressure 150 mm[Hg] Dr. Adolfo Aguirre Work Phone: [facility] 09-27-2023 11:26-0500 Body mass index (BMI) [Ratio] 37.2 kg/m2 Dr. Adolfo Aguirre Work Phone: [facility] 09-27-2023 11:26-0500 Body temperature 98.2 [degF] Dr. Adolfo Aguirre Work Phone: 3(418)408-236154 [place] [address] 09-27-2023 11:26-0500 Body weight 104.[address] Adolfo Aguirre Work Phone: 1(027)099-574254 [place] [address] 09-27-2023 11:26-0500 Diastolic blood pressure 70 mm[Hg] Dr. Adolfo Aguirre Work Phone: 8(256)494-748554 [place] [address] 09-27-2023 11:26-0500 Heart rate 72 /min Dr. Adolfo Aguirre Work Phone: 9(614)224-145454 [place] [address] 09-27-2023 11:26-0500 Respiratory rate 18 /min Dr. Adolfo Aguirre Work Phone: 2(018)845-139954 [place] [address] 09-27-2023 11:26-0500 SaO2% (BldA) [Mass fraction] 93 % Dr. Adolfo Aguirre Work Phone: 2(908)079-321154 [place] [address] 09-27-2023 11:26-0500 Systolic blood pressure 111 mm[Hg] Dr. Adolfo Aguirre Work Phone: 7(544)027-733084 [place] [address] 08-30-2023 12:56-0500 Body mass index (BMI) [Ratio] 36.8 kg/m2 Dr. Adolfo Aguirre Work Phone: [facility] 08-30-2023 12:56-0500 Body temperature 97.8 [degF] Dr. Adolfo Aguirre Work Phone: 2(794)005-014654 [place] [address] 08-30-2023 12:56-0500 Body weight 103.[address] Adolfo Aguirre Work Phone: 0(673)442-716287 [address] 08-30-2023 12:56-0500 Diastolic blood pressure 98 mm[Hg] Dr. Adolfo Aguirre Work Phone: [facility] 08-30-2023 12:56-0500 Heart rate 79 /min Dr. Adolfo Aguirre Work Phone: [facility] 08-30-2023 12:56-0500 Respiratory rate 18 /min Dr. Adolfo Aguirre Work Phone: [facility] 08-30-2023 12:56-0500 SaO2% (BldA) [Mass fraction] 95 % Dr. Adolfo Aguirre Work Phone: [facility] 08-30-2023 12:56-0500 Systolic blood pressure 150 mm[Hg] Dr. Adolfo Aguirre Work Phone: 1(362)012-751684 [place] [address] 07-05-2023 10:27-0400 Body height 167.[address] Adolfo Aguirre Work Phone: 5(631)208-352684 [place] [address] 07-05-2023 10:27-0400 Body mass index (BMI) [Ratio] 36.8 kg/m2 Dr. Adolfo Aguirre Work Phone: 5(663)342-932487 [address] 07-05-2023 10:27-0400 Body temperature 98.2 [degF] Dr. Adolfo Aguirre Work Phone: [facility] 07-05-2023 10:27-0400 Body weight 103.[address] Adolfo Aguirre Work Phone: [facility] 07-05-2023 10:27-0400 Diastolic blood pressure 65 mm[Hg] Dr. Adolfo Aguirre Work Phone: 3(087)772-333784 [place] [address] 07-05-2023 10:27-0400 Heart rate 71 /min Dr. Adolfo Aguirre Work Phone: [facility] 07-05-2023 10:27-0400 Respiratory rate 18 /min Dr. Adolfo Aguirre Work Phone: [facility] 07-05-2023 10:27-0400 SaO2% (BldA) [Mass fraction] 95 % Dr. Adolfo Aguirre Work Phone: [facility] 07-05-2023 10:27-0400 Systolic blood pressure 105 mm[Hg] Dr. Adolfo Aguirre Work Phone: [facility] 07-05-2023 10:03-0400 Body mass index (BMI) [Ratio] 36.8 kg/m2 Dr. Adolfo Aguirre Work Phone: 4(277)938-205454 [place] [address] 07-05-2023 10:03-0400 Body temperature 98.2 [degF] Dr. Adolfo Aguirre Work Phone: 4(001)692-358754 [place] [address] 07-05-2023 10:03-0400 Body weight 103.[address] Adolfo Aguirre Work Phone: 0(043)586-397554 [place] [address] 07-05-2023 10:03-0400 Diastolic blood pressure 65 mm[Hg] Dr. Adolfo Aguirre Work Phone: 7(969)536-931354 [place] [address] 07-05-2023 10:03-0400 Heart rate 71 /min Dr. Adolfo Aguirre Work Phone: 1(402)526-048754 [place] [address] 07-05-2023 10:03-0400 Respiratory rate 18 /min Dr. Adolfo Aguirre Work Phone: 0(410)582-124954 [place] [address] 07-05-2023 10:03-0400 SaO2% (BldA) [Mass fraction] 95 % Dr. Adolfo Aguirre Work Phone: 2(388)743-186884 [place] [address] 07-05-2023 10:03-0400 Systolic blood pressure 105 mm[Hg] Dr. Adolfo Aguirre Work Phone: 3(017)839-769654 [place] [address] 06-28-2023 13:24-0400 Body mass index (BMI) [Ratio] 36.7 kg/m2 Dr. Adolfo Aguirre Work Phone: [phone] [place] [address] 06-28-2023 13:24-0400 Body temperature 98.3 [degF] Dr. Adolfo Aguirre Work Phone: [facility] 06-28-2023 13:24-0400 Body weight 103.[address] Adolfo Aguirre Work Phone: [facility] 06-28-2023 13:24-0400 Diastolic blood pressure 67 mm[Hg] Dr. Adolfo Aguirre Work Phone: [facility] 06-28-2023 13:24-0400 Heart rate 69 /min Dr. Adolfo Aguirre Work Phone: [facility] 06-28-2023 13:24-0400 Respiratory rate 18 /min Dr. Adolfo Aguirre Work Phone: [facility] 06-28-2023 13:24-0400 SaO2% (BldA) [Mass fraction] 94 % Dr. Adolfo Aguirre Work Phone: [facility] 06-28-2023 13:24-0400 Systolic blood pressure 114 mm[Hg] Dr. Adolfo Aguirre Work Phone: [facility] 05-31-2023 13:27-0400 Body height 167.[address] Adolfo Aguirre Work Phone: [facility] 05-31-2023 13:27-0400 Body mass index (BMI) [Ratio] 36.8 kg/m2 Dr. Adolfo Aguirre Work Phone: [facility] 05-31-2023 13:27-0400 Body temperature 98.2 [degF] Dr. Adolfo Aguirre Work Phone: [facility] 05-31-2023 13:27-0400 Body weight 103.[address] Adolfo Aguirre Work Phone: [facility] 05-31-2023 13:27-0400 Diastolic blood pressure 62 mm[Hg] Dr. Adolfo Aguirre Work Phone: [facility] 05-31-2023 13:27-0400 Heart rate 62 /min Dr. Adolfo Aguirre Work Phone: [facility] 05-31-2023 13:27-0400 Respiratory rate 15 /min Dr. Adolfo Aguirre Work Phone: [facility] 05-31-2023 13:27-0400 SaO2% (BldA) [Mass fraction] 95 % Dr. Adolfo Aguirre Work Phone: [facility] 05-31-2023 13:27-0400 Systolic blood pressure 105 mm[Hg] Dr. Adolfo Aguirre Work Phone: [facility] 05-03-2023 10:47-0400 Body mass index (BMI) [Ratio] 39 kg/m2 Dr. Adolfo Aguirre Work Phone: 7(388)[phone] [address] 05-03-2023 10:47-0400 Body temperature 97.3 [degF] Dr. Adolfo Aguirre Work Phone: 8(053)[phone] [place] [address] 05-03-2023 10:47-0400 Body weight 109.[address] Adolfo Aguirre Work Phone: [facility] 05-03-2023 10:47-0400 Diastolic blood pressure 62 mm[Hg] Dr. Adolfo Aguirre Work Phone: [facility] 05-03-2023 10:47-0400 Heart rate 63 /min Dr. Adolfo Aguirre Work Phone: [facility] 05-03-2023 10:47-0400 Respiratory rate 16 /min Dr. Adolfo Aguirre Work Phone: [facility] 05-03-2023 10:47-0400 SaO2% (BldA) [Mass fraction] 97 % Dr. Adolfo Aguirre Work Phone: [facility] 05-03-2023 10:47-0400 Systolic blood pressure 110 mm[Hg] Dr. Adolfo Aguirre Work Phone: [facility] 04-05-2023 14:53-0400 Body mass index (BMI) [Ratio] 37.4 kg/m2 Dr. Adolfo Aguirre Work Phone: [facility] 04-05-2023 14:53-0400 Body temperature 97.2 [degF] Dr. Adolfo Aguirre Work Phone: [facility] 04-05-2023 14:53-0400 Body weight 105.[address] Adolfo Aguirre Work Phone: [facility] 04-05-2023 14:53-0400 Diastolic blood pressure 72 mm[Hg] Dr. Adolfo Aguirre Work Phone: [facility] 04-05-2023 14:53-0400 Heart rate 71 /min Dr. Adolfo Aguirre Work Phone: [facility] 04-05-2023 14:53-0400 Respiratory rate 16 /min Dr. Adolfo Aguirre Work Phone: [facility] 04-05-2023 14:53-0400 SaO2% (BldA) [Mass fraction] 93 % Dr. Adolfo Aguirre Work Phone: [facility] 04-05-2023 14:53-0400 Systolic blood pressure 114 mm[Hg] Dr. Adolfo Aguirre Work Phone: [facility] 03-08-2023 15:06-0400 Body mass index (BMI) [Ratio] 38.5 kg/m2 Dr. Adolfo Aguirre Work Phone: [facility] 03-08-2023 15:06-0400 Body temperature 97.3 [degF] Dr. Adolfo Aguirre Work Phone: [facility] 03-08-2023 15:06-0400 Body weight 108.[address] Adolfo Aguirre Work Phone: [facility] 03-08-2023 15:06-0400 Diastolic blood pressure 71 mm[Hg] Dr. Adolfo Aguirre Work Phone: [facility] 03-08-2023 15:06-0400 Heart rate 80 /min Dr. Adolfo Aguirre Work Phone: [facility] 03-08-2023 15:06-0400 Respiratory rate 18 /min Dr. Adolfo Aguirre Work Phone: [facility] 03-08-2023 15:06-0400 SaO2% (BldA) [Mass fraction] 95 % Dr. Adolfo Aguirre Work Phone: [facility] 03-08-2023 15:06-0400 Systolic blood pressure 139 mm[Hg] Dr. Adolfo Aguirre Work Phone: 6(583)978-104584 [place] [address] 02-09-2023 13:26-0400 Body mass index (BMI) [Ratio] 37.3 kg/m2 Dr. Adolfo Aguirre Work Phone: 7(991)[phone] [address] 02-09-2023 13:26-0400 Body temperature 97 [degF] Dr. Adolfo Aguirre Work Phone: [facility] 02-09-2023 13:26-0400 Body weight 104.[address] Adolfo Aguirre Work Phone: 4(770)[phone] [address] 02-09-2023 13:26-0400 Diastolic blood pressure 76 mm[Hg] Dr. Adolfo Aguirre Work Phone: [facility] 02-09-2023 13:26-0400 Heart rate 74 /min Dr. Adolfo Aguirre Work Phone: [facility] 02-09-2023 13:26-0400 Respiratory rate 16 /min Dr. Adolfo Aguirre Work Phone: [facility] 02-09-2023 13:26-0400 SaO2% (BldA) [Mass fraction] 95 % Dr. Adolfo Aguirre Work Phone: [facility] 02-09-2023 13:26-0400 Systolic blood pressure 123 mm[Hg] Dr. Adolfo Aguirre Work Phone: [facility] 01-11-2023 10:54-0400 Body mass index (BMI) [Ratio] 37.9 kg/m2 Dr. Adolfo Aguirre Work Phone: [facility] 11-30-2022 10:44-0400 Body height 167.[address] Adolfo Aguirre Work Phone: [facility] 11-30-2022 10:39-0400 Body mass index (BMI) [Ratio] 38 kg/m2 Dr. Adolfo Aguirre Work Phone: [facility] 11-30-2022 10:39-0400 Body temperature 98.3 [degF] Dr. Adolfo Aguirre Work Phone: [facility] 11-30-2022 10:39-0400 Body weight 107.[address] Adolfo Aguirre Work Phone: [facility] 11-30-2022 10:39-0400 Diastolic blood pressure 55 mm[Hg] Dr. Adolfo Aguirre Work Phone: [facility] 11-30-2022 10:39-0400 Heart rate 83 /min Dr. Adolfo Aguirre Work Phone: [facility] 11-30-2022 10:39-0400 Respiratory rate 17 /min Dr. Adolfo Aguirre Work Phone: [facility] 11-30-2022 10:39-0400 SaO2% (BldA) [Mass fraction] 94 % Dr. Adolfo Aguirre Work Phone: [facility] 11-30-2022 10:39-0400 Systolic blood pressure 110 mm[Hg] Dr. Adolfo Aguirre Work Phone: [facility] 11-02-2022 10:58-0500 Body mass index (BMI) [Ratio] 36.8 kg/m2 Dr. Adolfo Aguirre Work Phone: [facility] 11-02-2022 10:58-0500 Body temperature 98.6 [degF] Dr. Adolfo Aguirre Work Phone: [facility] 11-02-2022 10:58-0500 Body weight 103.[address] Adolfo Aguirre Work Phone: [facility] 11-02-2022 10:58-0500 Diastolic blood pressure 61 mm[Hg] Dr. Adolfo Aguirre Work Phone: [facility] 11-02-2022 10:58-0500 Heart rate 77 /min Dr. Adolfo Aguirre Work Phone: [facility] 11-02-2022 10:58-0500 Respiratory rate 17 /min Dr. Adolfo Aguirre Work Phone: [facility] 11-02-2022 10:58-0500 SaO2% (BldA) [Mass fraction] 94 % Dr. Adolfo Aguirre Work Phone: [facility] 11-02-2022 10:58-0500 Systolic blood pressure 117 mm[Hg] Dr. Adolfo Aguirre Work Phone: [facility] 10-26-2022 10:34-0500 Body mass index (BMI) [Ratio] 37.3 kg/m2 Dr. Adolfo Aguirre Work Phone: [facility] 10-26-2022 10:34-0500 Body weight 104.[address] Adolfo Aguirre Work Phone: [facility] 10-26-2022 10:23-0500 Body mass index (BMI) [Ratio] 37.3 kg/m2 Dr. Adolfo Aguirre Work Phone: [facility] 10-26-2022 10:23-0500 Body temperature 98.7 [degF] Dr. Adolfo Aguirre Work Phone: [facility] 10-26-2022 10:23-0500 Body weight 104.[address] Adolfo Aguirre Work Phone: [facility] 10-26-2022 10:23-0500 Diastolic blood pressure 62 mm[Hg] Dr. Adolfo gAuirre Work Phone: [facility] 10-26-2022 10:23-0500 Heart rate 72 /min Dr. Adolfo Aguirre Work Phone: [facility] 10-26-2022 10:23-0500 Respiratory rate 17 /min Dr. Adolfo Aguirre Work Phone: [facility] 10-26-2022 10:23-0500 SaO2% (BldA) [Mass fraction] 96 % Dr. Adolfo Aguirre Work Phone: [facility] 10-26-2022 10:23-0500 Systolic blood pressure 112 mm[Hg] Dr. Adolfo Aguirre Work Phone: 0(905)968-138984 [place] [address] 09-28-2022 10:19-0500 Body mass index (BMI) [Ratio] 0.4 kg/m2 Dr. Adolfo Aguirre Work Phone: 0(946)[phone] [place] [address] 09-28-2022 10:19-0500 Body temperature 98.6 [degF] Dr. Adolfo Aguirre Work Phone: 9(529)893-975287 [address] 09-28-2022 10:19-0500 Body weight 105.[address] Adolfo Aguirre Work Phone: [facility] 09-28-2022 10:19-0500 Diastolic blood pressure 63 mm[Hg] Dr. Adolfo Aguirre Work Phone: [facility] 09-28-2022 10:19-0500 Heart rate 73 /min Dr. Adolfo Aguirre Work Phone: [facility] 09-28-2022 10:19-0500 Respiratory rate 16 /min Dr. Adolfo Aguirre Work Phone: [facility] 09-28-2022 10:19-0500 SaO2% (BldA) [Mass fraction] 94 % Dr. Adolfo Aguirre Work Phone: [facility] 09-28-2022 10:19-0500 Systolic blood pressure 114 mm[Hg] Dr. Adolfo Aguirre Work Phone: [facility] 08-31-2022 09:56-0500 Body height 167.[address] Adolfo Aguirre Work Phone: [facility] Work Phone: 08-31-2022 09:56-0500 Body mass index (BMI) [Ratio] 37.4 kg/m2 Dr. Adolfo Aguirre Work Phone: [facility] Work Phone: 08-31-2022 09:56-0500 Body weight 105.[address] Adolfo Aguirre Work Phone: [facility] Work Phone: 08-31-2022 09:08-0500 Body mass index (BMI) [Ratio] 37.4 kg/m2 Dr. Adolfo Aguirre Work Phone: [facility] 08-31-2022 09:08-0500 Body temperature 98.1 [degF] Dr. Adolfo Aguirre Work Phone: [facility] 08-31-2022 09:08-0500 Body weight 105.[address] Adolfo Aguirre Work Phone: [facility] 08-31-2022 09:08-0500 Diastolic blood pressure 82 mm[Hg] Dr. Adolfo Aguirre Work Phone: [facility] 08-31-2022 09:08-0500 Heart rate 66 /min Dr. Adolfo Aguirre Work Phone: [facility] 08-31-2022 09:08-0500 Respiratory rate 16 /min Dr. Adolfo Aguirre Work Phone: [facility] 08-31-2022 09:08-0500 SaO2% (BldA) [Mass fraction] 97 % Dr. Adolfo Aguirre Work Phone: [facility] 08-31-2022 09:08-0500 Systolic blood pressure 158 mm[Hg] Dr. Adolfo Aguirre Work Phone: [facility] 08-03-2022 09:51-0500 Body mass index (BMI) [Ratio] 37.8 kg/m2 Dr. Adolfo Aguirre Work Phone: [facility] Work Phone: 08-03-2022 09:51-0500 Body temperature 98.2 [degF] Dr. Adolfo Aguirre Work Phone: [facility] Work Phone: 08-03-2022 09:51-0500 Body weight 106.[address] Adolfo Aguirre Work Phone: [facility] Work Phone: 08-03-2022 09:51-0500 Diastolic blood pressure 66 mm[Hg] Dr. Adolfo Aguirre Work Phone: [facility] Work Phone: 08-03-2022 09:51-0500 Heart rate 70 /min Dr. Adolfo Aguirre Work Phone: [facility] Work Phone: 08-03-2022 09:51-0500 Respiratory rate 16 /min Dr. Adolfo Aguirre Work Phone: [facility] Work Phone: 08-03-2022 09:51-0500 SaO2% (BldA) [Mass fraction] 93 % Dr. Adolfo Aguirre Work Phone: [facility] Work Phone: 08-03-2022 09:51-0500 Systolic blood pressure 119 mm[Hg] Dr. Adolfo Aguirre Work Phone: [facility] Work Phone: 07-05-2022 10:10-0400 Body mass index (BMI) [Ratio] 38.7 kg/m2 Dr. Adolfo Aguirre Work Phone: [facility] Work Phone: 07-05-2022 10:10-0400 Body temperature 97.6 [degF] Dr. Adolfo Aguirre Work Phone: [facility] Work Phone: 07-05-2022 10:10-0400 Body weight 109.[address] Adolfo Aguirre Work Phone: [facility] Work Phone: 07-05-2022 10:10-0400 Diastolic blood pressure 67 mm[Hg] Dr. Adolfo Aguirre Work Phone: [facility] Work Phone: 07-05-2022 10:10-0400 Heart rate 70 /min Dr. Adolfo Aguirre Work Phone: [facility] Work Phone: 07-05-2022 10:10-0400 Respiratory rate 16 /min Dr. Adolfo Aguirre Work Phone: [facility] Work Phone: 07-05-2022 10:10-0400 SaO2% (BldA) [Mass fraction] 95 % Dr. Adolfo Aguirre Work Phone: [facility] Work Phone: 07-05-2022 10:10-0400 Systolic blood pressure 140 mm[Hg] Dr. Adolfo Agiurre Work Phone: [facility] Work Phone: 06-07-2022 08:47-0400 Body mass index (BMI) [Ratio] 38.9 kg/m2 Dr. Adolfo Aguirre Work Phone: [facility] Work Phone: 06-07-2022 08:47-0400 Body temperature 98.6 [degF] Dr. Adolfo Aguirre Work Phone: [facility] Work Phone: 06-07-2022 08:47-0400 Body weight 109.[address] Adolfo Aguirre Work Phone: [facility] Work Phone: 06-07-2022 08:47-0400 Diastolic blood pressure 63 mm[Hg] Dr. Adolfo Aguirre Work Phone: [facility] Work Phone: 06-07-2022 08:47-0400 Heart rate 71 /min Dr. Adolfo Aguirre Work Phone: [facility] Work Phone: 06-07-2022 08:47-0400 Respiratory rate 16 /min Dr. Adolfo Aguirre Work Phone: [facility] Work Phone: 06-07-2022 08:47-0400 SaO2% (BldA) [Mass fraction] 95 % Dr. Adolfo Aguirre Work Phone: [facility] Work Phone: 06-07-2022 08:47-0400 Systolic blood pressure 123 mm[Hg] Dr. Adolfo Aguirre Work Phone: [facility] Work Phone: 05-31-2022 10:31-0400 Body mass index (BMI) [Ratio] 38.5 kg/m2 Dr. Adolfo Aguirre Work Phone: [facility] Work Phone: 05-31-2022 10:31-0400 Body temperature 98.2 [degF] Dr. Adolfo Aguirre Work Phone: [facility] Work Phone: 05-31-2022 10:31-0400 Body weight 108.[address] Adolfo Aguirre Work Phone: [facility] Work Phone: 05-31-2022 10:31-0400 Diastolic blood pressure 75 mm[Hg] Dr. Adolfo Aguirre Work Phone: [facility] Work Phone: 05-31-2022 10:31-0400 Heart rate 77 /min Dr. Adolfo Aguirre Work Phone: [facility] Work Phone: 05-31-2022 10:31-0400 Respiratory rate 16 /min Dr. Adolfo Aguirre Work Phone: [facility] Work Phone: 05-31-2022 10:31-0400 SaO2% (BldA) [Mass fraction] 94 % Dr. Adolfo Aguirre Work Phone: [facility] Work Phone: 05-31-2022 10:31-0400 Systolic blood pressure 151 mm[Hg] Dr. Adolfo Aguirre Work Phone: [facility] Work Phone: 04-26-2022 15:02-0400 Body height 167.[address] Adolfo Aguirre Work Phone: [facility] Work Phone: 04-26-2022 15:02-0400 Body mass index (BMI) [Ratio] 37.8 kg/m2 Dr. Adolfo Aguirre Work Phone: [facility] Work Phone: 04-26-2022 15:02-0400 Body temperature 98.8 [degF] Dr. Adolfo Aguirre Work Phone: [facility] Work Phone: 04-26-2022 15:02-0400 Body weight 106.[address] Adolfo Aguirre Work Phone: [facility] Work Phone: 04-26-2022 15:02-0400 Diastolic blood pressure 80 mm[Hg] Dr. Adolfo Aguirre Work Phone: [facility] Work Phone: 04-26-2022 15:02-0400 Heart rate 73 /min Dr. Adolfo Aguirre Work Phone: [facility] Work Phone: 04-26-2022 15:02-0400 Respiratory rate 16 /min Dr. Adolfo Aguirre Work Phone: [facility] Work Phone: 04-26-2022 15:02-0400 SaO2% (BldA) [Mass fraction] 95 % Dr. Adolfo Aguirre Work Phone: [facility] Work Phone: 04-26-2022 15:02-0400 Systolic blood pressure 133 mm[Hg] Dr. Adolfo Aguirre Work Phone: [facility] Work Phone: 04-19-2022 11:31-0400 Body mass index (BMI) [Ratio] 37.3 kg/m2 Dr. Adolfo Aguirre Work Phone: [facility] Work Phone: 04-19-2022 11:31-0400 Body temperature 98.3 [degF] Dr. Adolfo Aguirre Work Phone: [facility] Work Phone: 04-19-2022 11:31-0400 Body weight 105.[address] Adolfo Aguirre Work Phone: [facility] Work Phone: 04-19-2022 11:31-0400 Diastolic blood pressure 70 mm[Hg] Dr. Adolfo Aguirre Work Phone: [facility] Work Phone: 04-19-2022 11:31-0400 Heart rate 70 /min Dr. Adolfo Aguirre Work Phone: [facility] Work Phone: 04-19-2022 11:31-0400 Respiratory rate 15 /min Dr. Adolfo Aguirre Work Phone: [facility] Work Phone: 04-19-2022 11:31-0400 SaO2% (BldA) [Mass fraction] 95 % Dr. Adolfo Aguirre Work Phone: [facility] Work Phone: 04-19-2022 11:31-0400 Systolic blood pressure 174 mm[Hg] Dr. Adolfo Aguirre Work Phone: [facility] Work Phone: 03-23-2022 13:17-0400 Body mass index (BMI) [Ratio] 37.5 kg/m2 Dr. Adolfo Aguirre Work Phone: [facility] Work Phone: 03-23-2022 13:17-0400 Body temperature 98.3 [degF] Dr. Adolfo Aguirre Work Phone: [facility] Work Phone: 03-23-2022 13:17-0400 Body weight 105.[address] Adolfo Aguirre Work Phone: [facility] Work Phone: 03-23-2022 13:17-0400 Diastolic blood pressure 71 mm[Hg] Dr. Adolfo Aguirre Work Phone: [facility] Work Phone: 03-23-2022 13:17-0400 Heart rate 71 /min Dr. Adolfo Aguirre Work Phone: [facility] Work Phone: 03-23-2022 13:17-0400 Respiratory rate 18 /min Dr. Adolfo Aguirre Work Phone: [facility] Work Phone: 03-23-2022 13:17-0400 SaO2% (BldA) [Mass fraction] 93 % Dr. Adolfo Aguirre Work Phone: [facility] Work Phone: 03-23-2022 13:17-0400 Systolic blood pressure 111 mm[Hg] Dr. Adolfo Aguirre Work Phone: [facility] Work Phone: 03-16-2022 16:06-0400 Body mass index (BMI) [Ratio] 37.4 kg/m2 Dr. Adolfo Aguirre Work Phone: [facility] Work Phone: 03-16-2022 16:06-0400 Body temperature 98.2 [degF] Dr. Adolof Aguirre Work Phone: [facility] Work Phone: 03-16-2022 16:06-0400 Body weight 105.[address] Adolfo Aguirre Work Phone: [facility] Work Phone: 03-16-2022 16:06-0400 Diastolic blood pressure 78 mm[Hg] Dr. Adolfo Aguirre Work Phone: [facility] Work Phone: 03-16-2022 16:06-0400 Heart rate 68 /min Dr. Adolfo Aguirre Work Phone: [facility] Work Phone: 03-16-2022 16:06-0400 Respiratory rate 15 /min Dr. Adolfo Aguirre Work Phone: [facility] Work Phone: 03-16-2022 16:06-0400 SaO2% (BldA) [Mass fraction] 96 % Dr. Adolfo Aguirre Work Phone: [facility] Work Phone: 03-16-2022 16:06-0400 Systolic blood pressure 162 mm[Hg] Dr. Adolfo Aguirre Work Phone: [facility] Work Phone: 03-01-2022 15:47-0400 Body mass index (BMI) [Ratio] 37.5 kg/m2 Dr. Adolfo Aguirre Work Phone: [facility] Work Phone: 03-01-2022 15:47-0400 Body temperature 96.7 [degF] Dr. Adolfo Aguirre Work Phone: [facility] Work Phone: 03-01-2022 15:47-0400 Body weight 106.[address] Adolfo Aguirre Work Phone: [facility] Work Phone: 03-01-2022 15:47-0400 Diastolic blood pressure 68 mm[Hg] Dr. Adolfo Aguirre Work Phone: [facility] Work Phone: 03-01-2022 15:47-0400 Heart rate 64 /min Dr. Adolfo Aguirre Work Phone: [facility] Work Phone: 03-01-2022 15:47-0400 Respiratory rate 18 /min Dr. Adolfo Aguirre Work Phone: [facility] Work Phone: 03-01-2022 15:47-0400 SaO2% (BldA) [Mass fraction] 94 % Dr. Adolfo Aguirre Work Phone: [facility] Work Phone: 03-01-2022 15:47-0400 Systolic blood pressure 115 mm[Hg] Dr. Adolfo Aguirre Work Phone: [facility] Work Phone: 02-15-2022 11:19-0400 Body mass index (BMI) [Ratio] 37.6 kg/m2 Dr. Adolfo Aguirre Work Phone: [facility] Work Phone: 02-15-2022 11:19-0400 Body temperature 98.3 [degF] Dr. Adolfo Aguirre Work Phone: [facility] Work Phone: 02-15-2022 11:19-0400 Body weight 106.[address] Adolfo Aguirre Work Phone: [facility] Work Phone: 02-15-2022 11:19-0400 Diastolic blood pressure 70 mm[Hg] Dr. Adolfo Aguirre Work Phone: [facility] Work Phone: 02-15-2022 11:19-0400 Heart rate 70 /min Dr. Adolfo Aguirre Work Phone: [facility] Work Phone: 02-15-2022 11:19-0400 Respiratory rate 15 /min Dr. Adolfo Aguirre Work Phone: [facility] Work Phone: 02-15-2022 11:19-0400 SaO2% (BldA) [Mass fraction] 93 % Dr. Adolfo Aguirre Work Phone: [facility] Work Phone: 02-15-2022 11:19-0400 Systolic blood pressure 151 mm[Hg] Dr. Adolfo Aguirre Work Phone: [facility] Work Phone: 02-09-2022 13:41-0400 Body mass index (BMI) [Ratio] 37.3 kg/m2 Dr. Adolfo Aguirre Work Phone: [facility] Work Phone: 02-09-2022 13:41-0400 Body temperature 98.4 [degF] Dr. Adolfo Aguirre Work Phone: [facility] Work Phone: 02-09-2022 13:41-0400 Body weight 105.[address] Adolfo Aguirre Work Phone: [facility] Work Phone: 02-09-2022 13:41-0400 Diastolic blood pressure 76 mm[Hg] Dr. Adolfo Aguirre Work Phone: [facility] Work Phone: 02-09-2022 13:41-0400 Heart rate 77 /min Dr. Adolfo Aguirre Work Phone: [facility] Work Phone: 02-09-2022 13:41-0400 Respiratory rate 15 /min Dr. Adolfo Aguirre Work Phone: [facility] Work Phone: 02-09-2022 13:41-0400 SaO2% (BldA) [Mass fraction] 93 % Dr. Adolfo Aguirre Work Phone: [facility] Work Phone: 02-09-2022 13:41-0400 Systolic blood pressure 157 mm[Hg] Dr. Adolfo Aguirre Work Phone: [facility] Work Phone: 01-25-2022 14:50-0400 Body temperature 98.1 [degF] Dr. Adolfo Aguirre Work Phone: [facility] 01-25-2022 14:50-0400 Diastolic blood pressure 68 mm[Hg] Dr. Adolfo Aguirre Work Phone: [facility] 01-25-2022 14:50-0400 Heart rate 74 /min Dr. Adolfo Aguirre Work Phone: [facility] 01-25-2022 14:50-0400 Respiratory rate 16 /min Dr. Adolfo Aguirre Work Phone: [facility] 01-25-2022 14:50-0400 SaO2% (BldA) [Mass fraction] 98 % Dr. Adolfo Aguirre Work Phone: [facility] 01-25-2022 14:50-0400 Systolic blood pressure 150 mm[Hg] Dr. Adolfo Aguirre Work Phone: [facility] 01-25-2022 13:42-0400 Body mass index (BMI) [Ratio] 37.6 kg/m2 Dr. Adolfo Aguirre Work Phone: [facility] Work Phone: 01-25-2022 13:42-0400 Body weight 105.82 kg Dr. Adolfo Aguirre Work Phone: [facility] Work Phone: 01-25-2022 12:57-0400 Body mass index (BMI) [Ratio] 37.5 kg/m2 Dr. Adolfo Aguirre Work Phone: [facility] Work Phone: 01-25-2022 12:57-0400 Body temperature 98.8 [degF] Dr. Adolfo Aguirre Work Phone: [facility] Work Phone: 01-25-2022 12:57-0400 Body weight 105.[address] Adolfo Aguirre Work Phone: [facility] Work Phone: 01-25-2022 12:57-0400 Diastolic blood pressure 77 mm[Hg] Dr. Adolfo Aguirre Work Phone: [facility] Work Phone: 01-25-2022 12:57-0400 Heart rate 71 /min Dr. Adolfo Aguirre Work Phone: [facility] Work Phone: 01-25-2022 12:57-0400 Respiratory rate 15 /min Dr. Adolfo Aguirre Work Phone: [facility] Work Phone: 01-25-2022 12:57-0400 Systolic blood pressure 140 mm[Hg] Dr. Adolfo Aguirre Work Phone: [facility] Work Phone: 01-11-2022 14:18-0400 Body mass index (BMI) [Ratio] 37.3 kg/m2 Dr. Adolfo Aguirre Work Phone: [facility] Work Phone: 01-11-2022 14:18-0400 Body temperature 98.2 [degF] Dr. Adolfo Aguirre Work Phone: [facility] Work Phone: 01-11-2022 14:18-0400 Body weight 105.[address] Adolfo Aguirre Work Phone: [facility] Work Phone: 01-11-2022 14:18-0400 Diastolic blood pressure 88 mm[Hg] Dr. Adolfo Aguirre Work Phone: [facility] Work Phone: 01-11-2022 14:18-0400 Heart rate 79 /min Dr. Adolfo Aguirre Work Phone: [facility] Work Phone: 01-11-2022 14:18-0400 Respiratory rate 15 /min Dr. Adolfo Aguirre Work Phone: [facility] Work Phone: 01-11-2022 14:18-0400 SaO2% (BldA) [Mass fraction] 93 % Dr. Adolfo Aguirre Work Phone: [facility] Work Phone: 01-11-2022 14:18-0400 Systolic blood pressure 165 mm[Hg] Dr. Adolfo Aguirre Work Phone: [facility] Work Phone: 01-11-2022 14:18-0400 Body height [address] Adolfo Aguirre Work Phone: [facility] Work Phone: 01-11-2022 14:18-0400 Body mass index (BMI) [Ratio] 37.3 kg/m2 Dr. Adolfo Aguirre Work Phone: [facility] Work Phone: 01-11-2022 14:18-0400 Body temperature 98.2 [degF] Dr. Adolfo Aguirre Work Phone: [facility] Work Phone: 01-11-2022 14:18-0400 Body weight 105.[address] Adolfo Aguirre Work Phone: [facility] Work Phone: 01-11-2022 14:18-0400 Diastolic blood pressure 88 mm[Hg] Dr. Adolfo Aguirre Work Phone: [facility] Work Phone: 01-11-2022 14:18-0400 Heart rate 79 /min Dr. Adolfo Aguirre Work Phone: [facility] Work Phone: 01-11-2022 14:18-0400 Respiratory rate 15 /min Dr. Adolfo Aguirre Work Phone: [facility] Work Phone: 01-11-2022 14:18-0400 SaO2% (BldA) [Mass fraction] 93 % Dr. Adolfo Aguirre Work Phone: [facility] Work Phone: 01-11-2022 14:18-0400 Systolic blood pressure 165 mm[Hg] Dr. Adolfo Aguirre Work Phone: [facility] Work Phone: 12-21-2021 11:54-0400 Body temperature 96.6 [degF] Dr. Adolfo Aguirre Work Phone: [facility] Work Phone: 12-21-2021 11:54-0400 Diastolic blood pressure 52 mm[Hg] Dr. Adolfo Aguirre Work Phone: [facility] Work Phone: 12-21-2021 11:54-0400 Heart rate 68 /min Dr. Adolfo Aguirre Work Phone: [facility] Work Phone: 12-21-2021 11:54-0400 Respiratory rate 16 /min Dr. Adolfo Aguirre Work Phone: [facility] Work Phone: 12-21-2021 11:54-0400 SaO2% (BldA) [Mass fraction] 95 % Dr. Adolfo Aguirre Work Phone: [facility] Work Phone: 12-21-2021 11:54-0400 Systolic blood pressure 136 mm[Hg] Dr. Adolfo Aguirre Work Phone: [facility] Work Phone: 12-21-2021 09:43-0400 Body mass index (BMI) [Ratio] 38 kg/m2 Dr. Adolfo Aguirre Work Phone: [facility] Work Phone: 12-21-2021 09:43-0400 Body weight 107.[address] Adolfo Aguirre Work Phone: [facility] Work Phone: 12-21-2021 09:16-0400 Body mass index (BMI) [Ratio] 38 kg/m2 Dr. Adolfo Aguirre Work Phone: [facility] Work Phone: 12-21-2021 09:16-0400 Body temperature 98.2 [degF] Dr. Adolfo Aguirre Work Phone: [facility] Work Phone: 12-21-2021 09:16-0400 Body weight 107.[address] Adolfo Aguirre Work Phone: [facility] Work Phone: 12-21-2021 09:16-0400 Diastolic blood pressure 79 mm[Hg] Dr. Adolfo Aguirre Work Phone: [facility] Work Phone: 12-21-2021 09:16-0400 Heart rate 72 /min Dr. Adolfo Aguirre Work Phone: [facility] Work Phone: 12-21-2021 09:16-0400 Respiratory rate 15 /min Dr. Adolfo Aguirre Work Phone: [facility] Work Phone: 12-21-2021 09:16-0400 SaO2% (BldA) [Mass fraction] 93 % Dr. Adolfo Aguirre Work Phone: [facility] Work Phone: 12-21-2021 09:16-0400 Systolic blood pressure 178 mm[Hg] Dr. Adolfo Aguirre Work Phone: [facility] Work Phone: 11-30-2021 12:36-0400 Body temperature 96.6 [degF] Dr. Adolfo Aguirre Work Phone: [facility] Work Phone: 11-30-2021 12:36-0400 Diastolic blood pressure 66 mm[Hg] Dr. Adolfo Aguirre Work Phone: [facility] Work Phone: 11-30-2021 12:36-0400 Heart rate 59 /min Dr. Adolfo Aguirre Work Phone: [facility] Work Phone: 11-30-2021 12:36-0400 Respiratory rate 16 /min Dr. Adolfo Aguirre Work Phone: [facility] Work Phone: 11-30-2021 12:36-0400 SaO2% (BldA) [Mass fraction] 98 % Dr. Adolfo Aguirre Work Phone: [facility] Work Phone: 11-30-2021 12:36-0400 Systolic blood pressure 141 mm[Hg] Dr. Adolfo Aguirre Work Phone: [facility] Work Phone: 11-30-2021 10:56-0400 Body height [address] Adolfo Aguirre Work Phone: [facility] Work Phone: 11-30-2021 10:56-0400 Body mass index (BMI) [Ratio] 38.4 kg/m2 Dr. Adolfo Aguirre Work Phone: [facility] Work Phone: 11-30-2021 10:56-0400 Body weight 108.[address] Adolfo Aguirre Work Phone: [facility] Work Phone: 11-30-2021 10:04-0400 Body mass index (BMI) [Ratio] 38.5 kg/m2 Dr. Adolfo Aguirre Work Phone: [facility] Work Phone: 11-30-2021 10:04-0400 Body weight 108.[address] Adolfo Aguirre Work Phone: [facility] Work Phone: 11-30-2021 10:04-0400 Diastolic blood pressure 88 mm[Hg] Dr. Adolfo Aguirre Work Phone: [facility] Work Phone: 11-30-2021 10:04-0400 Heart rate 59 /min Dr. Adolfo Aguirre Work Phone: [facility] Work Phone: 11-30-2021 10:04-0400 Respiratory rate 15 /min Dr. Adolfo Aguirre Work Phone: [facility] Work Phone: 11-30-2021 10:04-0400 SaO2% (BldA) [Mass fraction] 96 % Dr. Adolfo Aguirre Work Phone: [facility] Work Phone: 11-30-2021 10:04-0400 Systolic blood pressure 182 mm[Hg] Dr. Adolfo Aguirre Work Phone: [facility] Work Phone: 11-09-2021 09:16-0500 Body mass index (BMI) [Ratio] 39.7 kg/m2 Dr. Adolfo Aguirre Work Phone: [facility] Work Phone: 11-09-2021 09:16-0500 Body temperature 98.2 [degF] Dr. Adolfo Aguirre Work Phone: [facility] Work Phone: 11-09-2021 09:16-0500 Body weight 111.[address] Adolfo Aguirre Work Phone: [facility] Work Phone: 11-09-2021 09:16-0500 Diastolic blood pressure 80 mm[Hg] Dr. Adolfo Aguirre Work Phone: [facility] Work Phone: 11-09-2021 09:16-0500 Heart rate 66 /min Dr. Adolfo Aguirre Work Phone: [facility] Work Phone: 11-09-2021 09:16-0500 Respiratory rate 15 /min Dr. Adolfo Augirre Work Phone: [facility] Work Phone: 11-09-2021 09:16-0500 Systolic blood pressure 143 mm[Hg] Dr. Adolfo Aguirre Work Phone: [facility] Work Phone: 11-05-2021 12:43-0500 Body mass index (BMI) [Ratio] 39.8 kg/m2 Dr. Adolfo Aguirre Work Phone: [facility] Work Phone: 11-05-2021 12:43-0500 Body temperature 98.4 [degF] Dr. Adolfo Aguirre Work Phone: [facility] Work Phone: 11-05-2021 12:43-0500 Body weight 111.[address] Adolfo Aguirre Work Phone: [facility] Work Phone: 11-05-2021 12:43-0500 Diastolic blood pressure 77 mm[Hg] Dr. Adolfo Aguirre Work Phone: [facility] Work Phone: 11-05-2021 12:43-0500 Heart rate 85 /min Dr. Adolfo Aguirre Work Phone: [facility] Work Phone: 11-05-2021 12:43-0500 Respiratory rate 15 /min Dr. Adolfo Aguirre Work Phone: [facility] Work Phone: 11-05-2021 12:43-0500 SaO2% (BldA) [Mass fraction] 93 % Dr. Adolfo Aguirre Work Phone: [facility] Work Phone: 11-05-2021 12:43-0500 Systolic blood pressure 139 mm[Hg] Dr. Adolfo Aguirre Work Phone: [facility] Work Phone: 10-19-2021 09:19-0500 Body mass index (BMI) [Ratio] 41.1 kg/m2 Dr. Adolfo Aguirre Work Phone: [facility] Work Phone: 10-19-2021 09:19-0500 Body temperature 98.2 [degF] Dr. Adolfo Aguirre Work Phone: [facility] Work Phone: 10-19-2021 09:19-0500 Body weight 115.[address] Adolfo Aguirre Work Phone: [facility] Work Phone: 10-19-2021 09:19-0500 Diastolic blood pressure 72 mm[Hg] Dr. Adolfo Aguirre Work Phone: [facility] Work Phone: 10-19-2021 09:19-0500 Heart rate 80 /min Dr. Adolfo Aguirre Work Phone: [facility] Work Phone: 10-19-2021 09:19-0500 Respiratory rate 15 /min Dr. Adolfo Aguirre Work Phone: [facility] Work Phone: 10-19-2021 09:19-0500 SaO2% (BldA) [Mass fraction] 94 % Dr. Adolfo Aguirre Work Phone: [facility] Work Phone: 10-19-2021 09:19-0500 Systolic blood pressure 138 mm[Hg] Dr. Adolfo Aguirre Work Phone: [facility] Work Phone: 09-28-2021 09:11-0500 Body mass index (BMI) [Ratio] 40.8 kg/m2 Dr. Adolfo Aguirre Work Phone: [facility] Work Phone: 09-28-2021 09:11-0500 Body temperature 97.7 [degF] Dr. Adolfo Aguirre Work Phone: [facility] Work Phone: 09-28-2021 09:11-0500 Body weight 114.[address] Adolfo Aguirre Work Phone: [facility] Work Phone: 09-28-2021 09:11-0500 Diastolic blood pressure 77 mm[Hg] Dr. Adolfo Aguirre Work Phone: [facility] Work Phone: 09-28-2021 09:11-0500 Heart rate 77 /min Dr. Adolfo Aguirre Work Phone: [facility] Work Phone: 09-28-2021 09:11-0500 Respiratory rate 15 /min Dr. Adolfo Aguirre Work Phone: [facility] Work Phone: 09-28-2021 09:11-0500 SaO2% (BldA) [Mass fraction] 954 % Dr. Adolfo Aguirre Work Phone: [facility] Work Phone: 09-28-2021 09:11-0500 Systolic blood pressure 139 mm[Hg] Dr. Adolfo Aguirre Work Phone: [facility] Work Phone: 09-07-2021 11:56-0500 Body mass index (BMI) [Ratio] 40 kg/m2 Dr. Adolfo Aguirre Work Phone: [facility] Work Phone: 09-07-2021 11:56-0500 Body temperature 98.2 [degF] Dr. Adolfo Aguirre Work Phone: [facility] Work Phone: 09-07-2021 11:56-0500 Body weight 112.[address] Adolfo Aguirre Work Phone: [facility] Work Phone: 09-07-2021 11:56-0500 Diastolic blood pressure 83 mm[Hg] Dr. Adolfo Aguirre Work Phone: [facility] Work Phone: 09-07-2021 11:56-0500 Heart rate 77 /min Dr. Adolfo Aguirre Work Phone: [facility] Work Phone: 09-07-2021 11:56-0500 Respiratory rate 17 /min Dr. Adolfo Aguirre Work Phone: [facility] Work Phone: 09-07-2021 11:56-0500 SaO2% (BldA) [Mass fraction] 96 % Dr. Adolfo Aguirre Work Phone: [facility] Work Phone: 09-07-2021 11:56-0500 Systolic blood pressure 145 mm[Hg] Dr. Adolfo Aguirre Work Phone: [facility] Work Phone: Encounters Encounter Date Encounter Type Care Provider Facility Start: 05-30-2025 End: 05-30-[address] Myron Calvillo MD -[facility] Work Phone: Start: 05-30-2025 End: 05-30-2025 ambulatory Rae Aguirre Facility:[facility] Start: 05-30-[address] Chelsea Sanchez on [facility] Start: 05-02-[address] Chelsea Sanchez on [facility] Start: 05-02-2025 End: 05-02-2025 Patient encounter procedure Sultana HUBBARD -[facility] Work Phone: Start: 05-02-2025 End: 05-02-[address] Rae Aguirre MD Work Phone: [facility] Start: 04-04-2025 End: 04-04-[address] Myron Calvillo MD -[facility] Work Phone: Start: 04-04-2025 End: 04-04-[address] Rae Aguirre MD Work Phone: -[facility] Start: 03-21-[address] Chelsea Sanchez on DO -[facility] Start: 03-21-2025 End: 03-21-[address] Myron Calvillo MD -[facility] Work Phone: Start: 03-21-2025 End: 03-21-[address] Rae Aguirre MD Work Phone: -[facility] Start: 03-14-[address] Chelsea Sanchez on DO -[facility] Start: 03-14-2025 End: 03-14-[address] Chelsea Anguiano DO [facility] Work Phone: Start: 03-14-2025 End: 03-14-[address] Rae Aguirre MD Work Phone: -[facility] Start: 02-14-[address] Chelsea Sanchez on DO -[facility] Start: 02-14-2025 End: 02-14-2025 Patient encounter procedure Sultana Finn NP- -[facility] Work Phone: Start: 02-14-2025 End: 02-14-[address] Rae Aguirre MD Work Phone: [facility] Work Phone: Start: 02-12-[address] Chelsea Sanchez on DO -Radiation Oncology Start: 02-12-2025 End: 02-12-[address] Chelsea Anguiano DO [facility] Work Phone: Start: 02-12-2025 End: 02-12-[address] Rae Aguirre MD Work Phone: [facility] Work Phone: Start: 02-11-2025 Non-patient / Non-visit Dr. Chelsea Anguiano DO [facility] Work Phone: Start: 02-11-2025 ambulatory Chelsea Anguiano Facility: [facility] Start: 02-06-2025 ambulatory Chelsea Anguiano Facility: [facility] Start: 02-06-2025 Non-patient / Non-visit Dr. Chelsea Anguiano DO [facility] Start: 02-05-2025 ambulatory Chelsea Frenchston Facility: [facility] Start: 02-05-2025 Non-patient / Non-visit Dr. Chelsea Anguiano DO [facility] Start: 01-29-2025 ambulatory Chelsea Anguiano Facility: [facility] Start: 01-29-2025 Non-patient / Non-visit Dr. Chelsea Anguiano DO [facility] Start: 01-24-2025 End: 01-24-[address] Chelsea Anguiano DO [facility] Work Phone: Start: 01-24-2025 End: 01-24-[address] Rae Aguirre MD Work Phone: [facility] Work Phone: Start: 01-17-2025 End: 01-17-[address] Myron Calvillo MD -[facility] Work Phone: Start: 01-17-2025 End: 01-17-2025 ambulatory Rae Aguirre Facility:[facility] Start: 01-17-[address] Chelsea Sanchez on [facility] Start: 12-20-2024 End: 12-20-[address] Myron Calvillo MD [facility] Work Phone: Start: 12-20-2024 End: 12-20-2024 ambulatory Rae Aguirre Facility:[facility] Start: 11-22-[address] Chelsea Sanchez on [facility] Start: 11-22-2024 End: 11-22-2024 Patient encounter procedure Sultana HUBBARD -[facility] Work Phone: Start: 11-22-2024 End: 11-22-2024 ambulatory [facility] Start: 11-13-2024 End: 11-13-[address] Rae Aguirre MD Work Phone: [facility] Work Phone: Start: 11-13-2024 End: 11-13-[address] Rae Aguirre MD -Laboratory Work Phone: Start: 11-13-2024 End: 11-13-2024 ambulatory Rae Aguirre Facility:[facility] Start: 11-09-2024 End: 11-09-[address] Rae Aguirre MD Work Phone: [facility] Work Phone: Start: 11-09-2024 End: 11-09-[address] [facility] Start: 11-09-2024 End: 11-09-2024 ambulatory [facility] [place] [place] Facility:[facility] Start: 11-05-2024 End: 11-05-2024 Emergency department patient visit Dr. Trever Terry DO -Emergency Department Work Phone: Start: 10-25-[address] Chelsea Sanchez on [facility] Start: 10-25-2024 End: 10-25-2024 [facility] Work Phone: Start: 10-25-2024 End: 10-25-2024 ambulatory Sultana Finn [employer] Facility:[facility] Start: 10-18-2024 End: 10-18-[address] Kang Pagan MD -[facility] Work Phone: Start: 10-18-2024 End: 10-18-2024 [facility] Start: 09-20-2024 End: 09-20-[address] Myron Calvillo MD -[facility] Work Phone: Start: 09-20-2024 End: 09-20-20[facility] Start: 08-23-2024 End: 08-23-[address] Myron Calvillo MD -[facility] Work Phone: Start: 08-23-2024 End: 08-23-2024 ambulatory Rae Aguirre Facility:[facility] Start: 07-26-2024 End: 07-26-[address] Myron Calvillo MD -[facility] Work Phone: Start: 07-26-2024 End: 07-26-2024 ambulatory Rae Aguirre Facility:[facility] Start: 06-28-2024 End: 06-28-2024 ambulatory Rae Aguirre Facility:[facility] Start: 06-21-2024 End: 06-21-2024 ambulatory Rae Aguirre Facility:[facility] Start: 12-08-2023 End: 12-08-[address] Adolfo Aguirre Work Phone: [facility] Work Phone: Start: 12-08-2023 End: 12-08-[address] Adolfo Aguirre Work Phone: [facility] Start: 11-29-[address] Jose Luis Aguirre Work Phone: [facility] Start: 11-29-2023 End: 11-29-[address] Adolfo Aguirre Work Phone: [facility] Work Phone: Start: 10-25-2023 End: 10-25-[address] Adolfo Aguirre Work Phone: [facility] Work Phone: Start: 09-27-2023 End: 09-27-[address] Adolfo Aguirre Work Phone: [facility] Work Phone: Start: 08-30-2023 End: 08-30-[address] Adolfo Aguirre Work Phone: [facility] Work Phone: Start: 07-06-[address] Jose Luis Aguirre Work Phone: [facility]-Radiation Oncology Start: 07-05-[address] Jose Luis Aguirre Work Phone: [facility] Start: 07-05-2023 End: 07-05-[address] Adolfo Aguirre Work Phone: [facility] Work Phone: Start: 06-29-2023 End: 06-29-[address] Adolfo Aguirre Work Phone: [facility] Work Phone: Start: 06-29-2023 End: 06-29-[address] Adolfo Aguirre Work Phone: [facility]-Outpatient Bone Densitometry Work Phone: Start: 06-28-2023 End: 06-28-[address] Adolfo Aguirre Work Phone: [facility] Work Phone: Start: 06-28-2023 End: 06-28-[address] Adolfo Aguirre Work Phone: [facility]-Radiology, [facility] Work Phone: Start: 06-28-2023 End: 06-28-[address] Adolfo Aguirre Work Phone: [facility] Work Phone: Start: 05-31-[address] Jose Luis Aguirre Work Phone: [facility] Start: 05-31-2023 End: 05-31-[address] Adolfo Aguirre Work Phone: [facility] Work Phone: Start: 05-31-2023 End: 05-31-[address] Adolfo Aguirre Work Phone: [facility] Work Phone: Start: 05-26-2023 End: 05-26-[address] Adolfo Aguirre Work Phone: [facility]-Nuclear Medicine, [facility] Work Phone: Start: 05-23-2023 End: 05-23-[address] Adolfo Aguirre Work Phone: [facility]-Cat Scan, [facility] Work Phone: Start: 05-03-2023 End: 05-03-[address] Adolfo Aguirre Work Phone: [facility] Work Phone: Start: 04-05-2023 End: 04-05-[address] Adolfo Aguirre Work Phone: [facility] Work Phone: Start: 03-08-2023 End: 03-08-[address] Adolfo Aguirre Work Phone: [facility] Work Phone: Start: 02-09-2023 End: 02-09-[address] Adolfo Aguirre Work Phone: [facility] Work Phone: Start: 11-30-[address] Jose Luis Aguirre Work Phone: [facility] Start: 11-30-2022 End: 11-30-2022 Non-patient / Non-visit Dr. Adolfo Aguirre Work Phone: [facility] Start: 11-30-2022 End: 11-30-[address] Adolfo Aguirre Work Phone: [facility] Work Phone: Start: 11-30-2022 End: 11-30-[address] Adolfo Aguirre Work Phone: [facility] Start: 11-02-2022 End: 11-02-[address] Adolfo Agiurre Work Phone: [facility] Start: 10-26-2022 End: 10-26-[address] Adolfo Aguirre Work Phone: [facility] Start: 09-28-2022 End: 09-28-[address] Adolfo Aguirre Work Phone: [facility] Start: 08-31-2022 End: 08-31-[address] Adolfo Aguirre Work Phone: [facility] Work Phone: Start: 08-31-2022 End: 08-31-[address] Adolfo Aguirre Work Phone: [facility] Start: 08-31-[address] Jose Luis Aguirre Work Phone: [facility] Start: 08-31-2022 End: 08-31-[address] Adolfo Aguirre Work Phone: [facility] Start: 08-03-2022 End: 08-03-[address] Adolfo Aguirre Work Phone: [facility] Start: 07-05-2022 End: 07-05-[address] Adolfo Aguirre Work Phone: [facility] Start: 06-07-2022 End: 06-07-[address] Adolfo Aguirre Work Phone: [facility] Start: 06-03-2022 End: 06-03-[address] Adolfo Aguirre Work Phone: [facility] Start: 05-31-2022 End: 05-31-[address] Adolfo Aguirre Work Phone: [facility] Start: 04-26-[address] Jose Luis Aguirre Work Phone: [facility] Start: 04-26-2022 End: 04-26-[address] Adolfo Aguirre Work Phone: [facility] Start: 04-22-2022 End: 04-22-[address] Adolfo Aguirre Work Phone: [facility] Start: 04-19-2022 End: 04-19-[address] Adolfo Aguirre Work Phone: [facility] Start: 03-23-2022 End: 03-23-[address] Adolfo Aguirre Work Phone: [facility] Start: 03-16-2022 End: 03-16-[address] Adolfo Aguirre Work Phone: [facility] Start: 03-01-2022 End: 03-01-[address] Adolfo Aguirre Work Phone: [facility] Start: 02-15-2022 End: 02-15-[address] Adolfo Aguirre Work Phone: [facility] Start: 02-09-2022 End: 02-09-[address] Adolfo Aguirre Work Phone: [facility] Start: 01-25-2022 End: 01-25-[address] Adolfo Aguirre Work Phone: [facility] Start: 01-14-2022 End: 01-14-[address] Adolfo Aguirre Work Phone: [facility] Start: 01-11-[address] Jose Luis Aguirre Work Phone: [facility] Start: 01-11-2022 End: 01-11-[address] Adolfo Aguirre Work Phone: [facility] Start: 12-21-2021 End: 12-21-[address] Adolfo Aguirre Work Phone: [facility] Start: 12-14-2021 End: 12-14-[address] [facility] Start: 12-09-2021 Non-patient / Non-visit Dr. Adolfo Aguirre Work Phone: [facility] Start: 12-09-2021 End: 12-09-[address] Adolfo Aguirre Work Phone: [facility] Start: 11-30-[address] Jose Luis Aguirre Work Phone: [facility] Start: 11-30-2021 End: 11-30-[address] Adolfo Aguirre Work Phone: [facility] Start: 11-09-2021 End: 11-09-[address] Adolfo Aguirre Work Phone: [facility] Start: 11-05-2021 End: 11-05-[address] Adolfo Aguirre Work Phone: [facility] Start: 11-05-2021 End: 11-05-[address] Adolfo Aguirre Work Phone: [facility] Start: 10-19-2021 End: 10-19-[address] Adolfo Aguirre Work Phone: [facility] Start: 09-28-2021 End: 09-28-[address] Adolfo Aguirre Work Phone: [facility] Start: 09-07-2021 End: 09-07-[address] Adolfo Aguirre Work Phone: [facility] Start: 08-10-2021 End: 05-30-2025 ambulatory Rae Aguirre Facility:[facility] Start: 06-05-2021 End: 06-05-2021 ambulatory TAVARES FONTENOT [facility] Start: 04-30-2021 ambulatory LUCIANO ADAM Facility: [facility] Start: 04-21-2019 End: 04-22-2019 Patient encounter procedure UNKNOWN PROVIDER Facility:[facility] Procedures Date Procedure Procedure Detail Performing Clinician Start: 05-30-[address] Jose Luis Aguirre MD Work Phone: Start: 03-14-[address] Jose Luis Aguirre MD Work Phone: Start: 02-14-[address] Jose Luis Aguirre MD Work Phone: Start: 01-17-[address] Jose Luis Aguirre MD Work Phone: Start: 01-08-2025 PET study for localization of tumor Dr. Rae Aguirre MD Work Phone: Start: 11-13-2024 Radionuclide whole body bone study Dr. Rae Aguirre MD Work Phone: Start: 11-05-2024 Plain chest X-ray Dr. Rae Aguirre MD Work Phone: Start: 11-05-[address] Jose Luis Aguirre MD Work Phone: Start: 11-05-2024 Measurement of renal function Dr. Juan M Aguirre MD Work Phone: Comment on above: GFR Calc Start: 11-05-2024 Urnls dip stick/tablet reagent auto microscopy Dr. Rae Aguirre MD Work Phone: Start: 11-05-2024 Computed tomography of abdomen and pelvis with intravenous contrast Dr. Rae Aguirre MD Work Phone: Start: 11-05-2024 CT of head without contrast Dr. Emerita Aguirre MD Work Phone: Start: 11-05-[address] Rae Aguirre MD Work Phone: Start: 11-05-2024 SARS-CoV-2, Influenza & RSV (PCR) Dr. Rae Aguirre MD Work Phone: Start: 11-05-[address] Rae Aguirre MD Work Phone: Start: 10-18-2024 Lymphocyte percent differential count Dr. Rae Aguirre MD Work Phone: Start: 10-18-2024 Measurement of renal function Dr. Juan M Aguirre MD Work Phone: Comment on above: GFR Calc Start: 08-23-[address] Danny Aguirre MD Work Phone: Comment on above: Nonsmokers <3.9 Smokers <5.6[employer] Electrochemiluminescence Immunoassay(ECLIA)Values obtained with different assay methods or kitscannot be used interchangeably. Results cannot beinterpreted as absolute evidence of the presence orabsence of malignant disease. Start: 01-03-[address] Adolfo Aguirre MD Work Phone: Start: 11-29-2023 Assay of phosphorus inorganic Dr. Juan M Aguirre MD Work Phone: Start: 10-25-2023 Bacteria identified in Urine by Culture Dr. Rae Aguirre MD Work Phone: Start: 10-25-[address] Adolfo Aguirre Work Phone: Start: 10-25-2023 Pelvis X-ray Dr. Adolfo Aguirre Work Phone: Start: 10-25-2023 Plain radiography of pelvis Dr. Emerita Aguirre MD Work Phone: Start: 10-25-2023 X-ray of lumbosacral spine Dr. Trent Aguirre Work Phone: Start: 06-29-2023 Dual energy X-ray absorptiometry Dr. Saima Aguirre Work Phone: Start: 06-28-2023 Plain x-ray of humerus Dr. Adolfo Aguirre Work Phone: Start: 05-26-2023 Radionuclide whole body bone study Dr. Adolfo Aguirre Work Phone: Start: 05-23-2023 CT of chest and abdomen Dr. Adolfo Aguirre Work Phone: Start: 01-12-2023 Measurement of occult blood in stool specimen using immunoassay Dr. Adolfo Aguirre Work Phone: Start: 08-31-2022 MRI of brain with contrast Dr. Trent Aguirre Work Phone: Start: 06-03-2022 Radionuclide whole body bone study Dr. Adolfo Aguirre Work Phone: Start: 04-22-2022 MRI of brain with contrast Dr. Trent Aguirre Work Phone: Start: 12-14-2021 Radionuclide whole body bone study Dr. Adolfo Aguirre Work Phone: Start: 11-05-2021 CT of thorax with contrast Dr. Trent Aguirre Work Phone: Start: 05-05-2021 PET study for localization of tumor Dr. Rae Aguirre MD Work Phone: Start: 05-05-2021 PET/CT Tumor Base -Thigh Subs Dr. Juan M Aguirre Work Phone: History of bilateral mastectomy History of bilateral mastectomy Dr. Adolfo Aguirre Work Phone: Plan of Treatment Date Care Activity Detail Author Start: 05-02-2025 Cancer Ag 125 [Units /volume] in Serum or Plasma [facility] Start: 05-02-2025 Cancer Ag 15-3 [Pres ence] in Serum or Plasma [facility] Start: 05-02-2025 Cancer Ag 27-29 [Pre sence] in Serum or Plasma [facility] Start: 05-02-2025 Carcinoembryonic Ag [Mass/volume] in Serum or Plasma [facility] Start: 05-02-2025 [facility] Start: 03-14-2025 Cancer Ag 15-3 [Pres ence] in Serum or Plasma [facility] Start: 03-14-2025 Cancer Ag 27-29 [Pre sence] in Serum or Plasma [facility] Start: 02-14-2025 [facility] Start: 01-17-2025 Patient referral [facility] Work Phone: Start: 07-05-2023 [facility] Start: 05-31-2023 Cancer Ag 15-3 [Pres ence] in Serum or Plasma [facility] Start: 05-31-2023 Cancer Ag 27-29 [Pre sence] in Serum or Plasma [facility] Start: 05-31-2023 [facility] Start: 05-26-2023 Venous catheter care management [facility] Start: 05-23-2023 Venous catheter care management [facility] Start: 01-11-2023 Disease process or c ondition education [facility] Start: 01-11-2023 [facility] Start: 12-07-2022 Disease process or c ondition education [facility] Start: 12-07-2022 Vitamin D, 25-hydroxy measurement [facility] Start: 12-07-2022 [facility] Start: 11-02-2022 Disease process or c ondition education [facility] Start: 11-02-2022 [facility] Start: 09-28-2022 Disease process or c ondition education [facility] Start: 09-28-2022 [facility] Start: 08-31-2022 Venous catheter care management [facility] Start: 08-31-2022 Disease process or c ondition education [facility] Start: 08-31-2022 [facility] Start: 08-03-2022 Disease process or c ondition education [facility] Start: 08-03-2022 [facility] Start: 07-05-2022 Disease process or c ondition education [facility] Start: 07-05-2022 [facility] Start: 06-07-2022 Disease process or c ondition education [facility] Start: 06-07-2022 [facility] Start: 06-03-2022 Venous catheter care management [facility] Work Phone: Start: 05-31-2022 Venous catheter care management [facility] Start: 04-26-2022 Disease process or c ondition education [facility] Start: 04-26-2022 [facility] Start: 04-22-2022 Venous catheter care management [facility] Work Phone: Start: 04-19-2022 Venous catheter care management [facility] Start: 03-16-2022 Disease process or c ondition education [facility] Start: 03-16-2022 [facility] Start: 02-15-2022 Disease process or c ondition education [facility] Start: 02-15-2022 [facility] Start: 01-11-2022 Disease process or c ondition education [facility] Start: 01-11-2022 [facility] Start: 10-19-2021 [facility] Start: 08-17-2021 Venous catheter care management [facility] Start: 05-25-2021 Venous catheter care management [facility] Alanine aminotransfe rase [Enzymatic activity/volume] in Serum or Plasma [facility] Albumin [Mass/volume ] in Serum or Plasma [facility] Alkaline phosphatase [Enzymatic activity/volume] in Serum or Plasma [facility] Anion gap measurement [facility] Aspartate aminotrans ferase [Enzymatic activity/volume] in Serum or Plasma [facility] Bilirubin, total measurement [facility] BUN/Creatinine ratio [facility] Calcium [Mass/volume ] in Serum or Plasma [facility] Cancer Ag 15-3 [Pres ence] in Serum or Plasma [facility] Cancer Ag 15-3 [Pres ence] in Serum or Plasma [facility] Cancer Ag 15-3 [Pres ence] in Serum or Plasma [facility] Cancer Ag 15-3 [Pres ence] in Serum or Plasma [facility] Cancer Ag 15-3 [Pres ence] in Serum or Plasma [facility] Cancer Ag 15-3 [Pres ence] in Serum or Plasma [facility] Cancer Ag 27-29 [Pre sence] in Serum or Plasma [facility] Cancer Ag 27-29 [Pre sence] in Serum or Plasma [facility] Cancer Ag 27-29 [Pre sence] in Serum or Plasma [facility] Cancer Ag 27-29 [Pre sence] in Serum or Plasma [facility] Cancer Ag 27-29 [Pre sence] in Serum or Plasma [facility] Cancer Ag 27-29 [Pre sence] in Serum or Plasma [facility] Carbon dioxide, tota l [Moles/volume] in Serum or Plasma [facility] Carcinoembryonic Ag [Mass/volume] in Serum or Plasma [facility] Carcinoembryonic Ag [Mass/volume] in Serum or Plasma [facility] CBC W Auto Different ial panel - Blood [facility] Work Phone: CBC W Auto Different ial panel - Blood [facility] CBC W Auto Different ial panel - Blood [facility] CBC W Auto Different ial panel - Blood [facility] CBC W Auto Different ial panel - Blood [facility] CBC W Auto Different ial panel - Blood [facility] CBC W Auto Different ial panel - Blood [facility] CBC W Auto Different ial panel - Blood [facility] CBC W Auto Different ial panel - Blood [facility] Chloride [Moles/volu me] in Serum or Plasma [facility] Comprehensive metabo lic 1999 panel - Serum or Plasma [facility] Comprehensive metabo lic 1999 panel - Serum or Plasma [facility] Comprehensive metabo lic 1999 panel - Serum or Plasma [facility] Comprehensive metabo lic 1999 panel - Serum or Plasma [facility] Creatinine [Moles/vo lume] in Serum or Plasma [facility] Glucose [Mass/volume ] in Serum or Plasma [facility] Hematocrit [Volume F raction] of Blood [facility] Hemoglobin [Mass/volume] in Blood [facility] Lactate dehydrogenase measurement [facility] Lactate dehydrogenase measurement [facility] Lactate dehydrogenase measurement [facility] Lactate dehydrogenase measurement [facility] Work Phone: Leukocytes [#/volume] in Blood [facility] Mean corpuscular hem oglobin concentration determination [facility] Mean corpuscular hem oglobin determination [facility] Measurement of renal function [facility] Neutrophil count [facility] Neutrophil percent d ifferential count [facility] NM Whole body [facility] Patient referral [facility] Work Phone: Platelets [#/volume] in Blood [facility] Potassium [Moles/vol ume] in Serum or Plasma [facility] PT Unspecified body region [facility] Radiation oncology A ND/OR radiotherapy [facility] Red blood cell count [facility] Red cell distributio n width determination [facility] Sodium [Moles/volume ] in Serum or Plasma [facility] Total protein measurement [facility] Urea nitrogen [Mass/ volume] in Serum or Plasma [facility] Immunizations Immunization Date Immunization Notes Care Provider Fa [facility] 06-17-2021 influenza, injectabl e, quadrivalent, preservative free Dr. Adolfo Aguirre Work Phone: [facility] 06-17-2021 influenza, seasonal, injectable Dr. Adolfo Aguirre Work Phone: [facility] 10-28-2020 Covid (Moderna) Dr. Emerita Aguirre Work Phone: [facility] 09-30-2020 Joseid (Moderna) Dr. Emerita Aguirre Work Phone: [facility] 06-26-2020 influenza, injectabl e, quadrivalent, preservative free Dr. Adolfo Aguirre Work Phone: [facility] 06-26-2020 influenza, seasonal, injectable Dr. Adolfo Aguirre Work Phone: [facility] 06-26-2018 influenza, injectabl e, quadrivalent, preservative free Dr. Adolfo Aguirre Work Phone: [facility] 06-26-2018 influenza, seasonal, injectable Dr. Adolfo Aguirre Work Phone: [facility] 07-04-2017 influenza, injectabl e, quadrivalent, preservative free Dr. Adolfo Aguirre Work Phone: [facility] 07-04-2017 influenza, seasonal, injectable Dr. Adolfo Aguirre Work Phone: [facility] 06-21-2016 influenza, injectabl e, quadrivalent, preservative free Dr. Adolfo Aguirre Work Phone: [facility] 06-21-2016 influenza, seasonal, injectable Dr. Adolfo Aguirre Work Phone: [facility] 06-12-2015 influenza, injectabl e, quadrivalent, preservative free Dr. Adolfo Aguirre Work Phone: [facility] 06-12-2015 influenza, seasonal, injectable Dr. Adolfo Aguirre Work Phone: [facility] 06-07-2014 influenza, injectabl e, quadrivalent, preservative free Dr. Adolof Aguirre Work Phone: [facility] 06-07-2014 influenza, seasonal, injectable Dr. Adolfo Aguirre Work Phone: [facility] 06-07-[address] Saima Aguirre Work Phone: [facility] Work Phone: 06-07-2014 pneumococcal vaccine , unspecified formulation Dr. Adolfo Aguirre Work Phone: [facility] 07-12-[address] Adolfo Aguirre Work Phone: [facility] 06-12-[address] Adolfo Aguirre Work Phone: [facility] Payers Date Payer Category Payer Self-pay [id number] 2019 Unknown PMT POSTING 2017 Medicare [id number] 2017 Unknown [id number] 2015 Unknown [id number] 1955 Unknown [id number] 2.. [id number] 1955 Unknown [id number] Unknown [id number] Unknown [id number] .16.8 [id number] Unknown [id number] .[id number] [id number] Unknown [id number] .16.8 [id number] Unknown [id number] Unknown [id number] 2.16.8 40.1.059064.3.579.2.462 Unknown [id number] 2.16.8 [id number] Unknown [id number] 2.16.8 40.1.777647.3.579.2.462 Unknown [id number] 2.16.8 [id number] Unknown [id number] 2.16.8 40.1.644660.3.579.2.462 Unknown [id number] 2.16.8 40.1.053904.3.579.2.462 Unknown [id number] 2.16.8 40.1.057523.3.579.2.462 Unknown [id number] 2.16.8 40.1.762429.3.579.2.462 Unknown [id number] 2.16.8 40.1.196395.3.579.2.462 Unknown [id number] 2.16.8 40.1.110313.3.579.2.462 Unknown [id number] 2.16.8 40.1.227135.3.579.2.462 Unknown [id number] 2.16.8 40.1.117312.3.579.2.462 Unknown [id number] 2.16.8 40.1.393095.3.579.2.462 Unknown [id number] 2.16.8 40.1.529338.3.579.2.462 Unknown [id number] 2.16.8 40.1.810684.3.579.2.462 Unknown [id number] 2.16.8 40.1.247767.3.579.2.462 Unknown [id number] 2.16.8 40.1.572745.3.579.2.462 Unknown [id number] 2.16.8 40.1.907479.3.579.2.462 Unknown [id number] 2.16.8 40.1.075300.3.579.2.462 Unknown [id number] 2.16.8 40.1.364118.3.579.2.462 Unknown [id number] 2.16.8 40.1.340471.3.579.2.462 Unknown [id number] 2.16.8 [id number] Unknown [id number] 2.16.8 [id number] Social History Date Type Detail Facility Start: 04-21-2021 End: 05-20-2021 Tobacco smoking status NVIS Unknown if ever smoked [facility] Start: 04-20-2019 None [facility] Start: 04-20-2019 Spouse/ Signif icant Other [facility] Start: 1955 Sex Assigned At Female [facility] Start: 07-10-2015 Rare [facility] Start: 07-10-2015 Non-smoker [facility] Start: 11-05-2024 Tobacco smoking status NHIS Never smoked tobacco (finding) [facility] Start: 11-21-2024 End: 11-23-2024 Sex Female (finding) [facility] Sex Female [facility] Medical Equipment Procedure Code Equipment Code Equipment Origin al Text Equipment Identifier Dates Insertion, vascular access port PORT,POWER 8FR FDA Start: 05-22-2021 Insertion, vascular access port PORT,POWER 8FR FDA Start: 05-22-2021 Insertion, vascular access port PORT,POWER 8FR FDA Start: 05-22-2021 Insertion, vascular access port PORT,POWER 8FR FDA Start: 05-22-2021 Insertion, vascular access port PORT,POWER 8FR FDA Start: 05-22-2021 Insertion, vascular access port PORT,POWER 8FR FDA Start: 05-22-2021 Insertion, vascular access port PORT,POWER 8FR FDA Start: 05-22-2021 Insertion, vascular access port PORT,POWER 8FR FDA Start: 05-22-2021 Insertion, vascular access port PORT,POWER 8FR FDA Start: 05-22-2021 Insertion, vascular access port PORT,POWER 8FR FDA Start: 05-22-2021 Insertion, vascular access port PORT,POWER 8FR FDA Start: 05-22-2021 Insertion, vascular access port PORT,POWER 8FR FDA Start: 05-22-2021 Insertion, vascular access port PORT,POWER 8FR FDA Start: 05-22-2021 Insertion, vascular access port PORT,POWER 8FR FDA Start: 05-22-2021 Insertion, vascular access port PORT,POWER 8FR FDA Start: 05-22-2021 Insertion, vascular access port PORT,POWER 8FR FDA Start: 05-22-2021 Insertion, vascular access port PORT,POWER 8FR FDA Start: 05-22-2021 Insertion, vascular access port PORT,POWER 8FR FDA Start: 05-22-2021 Insertion, vascular access port PORT,POWER 8FR FDA Start: 05-22-2021 Insertion, vascular access port PORT,POWER 8FR FDA Start: 05-22-2021 Insertion, vascular access port PORT,POWER 8FR FDA Start: 05-22-2021 Mental Status Date Assessment Result Facility 11-05-2024 Cognitive function Level Of Cons ciousness Awake;Alert;Appropriate;Follow s Commands [facility] Work Phone: Clinical Notes 05-31-2023 to 05-30-2025 Note Date & Type Note Facility 05-30-2025 Progress note [facility] 02-12-2025 Evaluation note Diagnosis Onset Date Resolution Bone metastases chronic February 12, 2025 1:29pm Bone metastases chronic February 14, 2025 9:43am Metastasis from breast cancer chronic February 14, 2025 9 :43am Bone metastases chronic March 14, 2025 9:37am Metastasis from breast cancer chronic March 14, 2025 9 :37am Bone metastases chronic March 14, 2025 9:38am Bone metastases chronic March 1:14pm Metastasis from breast cancer chronic March 21, 2025 1:14pm Bone metastases chronic March 2:27pm Metastasis from breast cancer chronic April 04, 2025 2:27pm Bone metastases chronic May 022024 9:49am Metastasis from breast cancer chronic May 02 9:49am Bone metastases chronic May 30, 2025 1:34pm Metastasis from breast cancer chronic May 30, 2025 1:34pm [facility] Work Phone: 1(696) 426-404606-03-2025 Progress [facility] [address] [place] [address] OFFICE VISIT Date of Service: 02/12/25 1336 MR#: [id number] Acct: [id number] Name: ERIBERTO SCHULER Rep #: [id number] : 1955 From: Chelsea oleary DO Age/Sex: 69/F Location: [facility] Status: Signed Intake Vital Signs 01/24/25 13:02 02/12/25 13:40 Height 5 ft 6 in 5 ft 6 in Weight: 230 lb 8 oz BMI 37.2 BP 114/67 Blood Pressure Location Rt brachial Position Sitting Respiration 18 Pulse 80 Pulse Source Monitor Temp 97.1 F L Temperature Source Temporal Artery Pulse Oximetry (%) 96 Oxygen Delivery Method room air Intake Visit Reasons: OTV Is patient in pain?: Yes (back) Pain scale (1-10): 6 Allergies Aatfkmq-DVP-WhU Reductase Inhibitor (Mawtxge-Cvq-Zxi Reductase Inhibitor) Adverse Reaction (Intermediate, Verified 02/12/25 13:40) elevated liver enzymes Medications ?Medication ?Instructions ?Recorded ?Confirmed ?Type losartan 100 mg tablet 100 mg PO DAILY 07/02/1312/04 History metformin 1,000 mg tablet 1,000 mg PO BIDCM 07/02/13 0 02/12/25 History pgbsrroy-fag-wuxrl acid 0.4 1 ea PO QHS 07/02/1302/12 History mg-lycopene 300 mcg-lutein 250 mcg tablet albuterol sulfate 90 mcg/actuation 2 puff inhalation Q 4H PRN PRN 07/09/15 02/12/25 History aerosol inhaler Shortness Of Breath atorvastatin 80 mg tablet 80 mg PO QHS 07/09/15 History ergocalciferol (vitamin D2) 1,250 50,000 unit PO SUWE 07/09/15 02/12/25 History mcg (50,000 unit) capsule metoprolol succinate 25 mg 12.5 mg PO DAILY 07/09/15 0 02/12/25 History tablet,extended release 24 hr zolpidem 5 mg tablet 10 mg PO QHS PRN PRN Sleep 0 12/07/16 02/12/25 History albuterol sulfate 0.63 mg/3 mL 0.63 mg inhalation Q4H 07/03/19 02/12/25 History solution for nebulization dapagliflozin propanediol 5 mg 10 mg PO DAILY 09/20/19 02/12/25 History tablet cyclobenzaprine 10 mg tablet 10 mg PO BID PRN muscle s pasm #10 04/22/21 02/12/25 Rx tabs lidocaine-prilocaine 2.5 %-2.5 % 1 applic topical ONCE PRN port 05/23/21 02/12/25 Rx topical cream access 30 days #30 grams prochlorperazine maleate 5 mg 5 mg PO TID PRN nausea a nd 11/30/21 02/12/25 Rx tablet (Compazine) vomiting #30 tabs aspirin 325 mg tablet 325 mg PO DAILY 01/04/2212/04 History docusate sodium 50 mg capsule 50 mg PO BID 01/04/22 History (Colace Clear) lorazepam 0.5 mg tablet 0.5 mg PO QHS 04/19/2202/12 History meclizine 25 mg tablet (Dramamine 25 mg PO DAILY PRN d izziness 04/19/22 02/12/25 History (meclizine)) levothyroxine 150 mcg tablet 150 mcg PO MOTUWETHFRSA 0 04/26/22 02/12/25 History sertraline 100 mg tablet (Zoloft) 100 mg PO DAILY 0510/0402/12/25 History methadone 5 mg tablet 7.5 mg PO Q12H 05/03/23/12/04 History oxycodone 5 mg capsule 10 mg PO Q4H PRN Pain 02/12/25 History glipizide 2.5 mg tablet 2.5 mg PO DAILY 09/27/2312/04 History insulin glargine 100 unit/mL (3 50 unit subcut QPM 02/12/25 History mL) subcutaneous pen (Basaglar KwikPen U-100 Insulin) palbociclib 75 mg tablet (Ibrance) 75 mg PO DAILY #21 tabs 08/16/24 02/12/25 Rx metoclopramide HCl 5 mg tablet 5 mg PO Q8H PRN PRN mahog[place] sea and 11/05/24 02/12/25 Rx (Reglan) vomiting 30 days #90 tabs Have you fallen in the past year?: No PFSH PFSH Medical History Breast cancer metastasized to bone Pain of right humerus Abdominal cramping Cough Mental status alteration Encounter for education Wears glasses Marijuana use Thyroid disease Diabetes High cholesterol Non-smoker CPAP (continuous positive airway pressure) dependence Asthma History of echocardiogram History of stress test Hypertension Cardiology follow-up encounter Right kidney mass Left lower lobe pulmonary nodule Bone metastases Atherosclerotic heart disease of [place] coronary artery without angina pectoris TIA (transient ischemic attack) Coronary artery vasospasm Essential hypertension Elevated alkaline phosphatase level History of kidney stones Hx of cholecystitis Diabetes mellitus Hot flashes related to aromatase inhibitor therapy Malignant neoplasm of right breast, stage 2 Chest pain RBBB Vitamin D deficiency GERD (gastroesophageal reflux disease) Osteoarthritis Acute asthma exacerbation Nephrolithiasis Hypothyroidism HLD (hyperlipidemia) Depression Diabetes mellitus, type II Morbid obesity with BMI of 40.0-44.9, adult Sleep apnea Acquired absence of bilateral breasts and nipples Personal history of breast cancer Home Medications ?Medication ?Instructions ?Recorded ?Last Taken ?Type losartan 100 mg tablet 100 mg PO DAILY 07/02/13 History metformin 1,000 mg tablet 1,000 mg PO BIDCM 07/02/13 1 History tdhxhgqa-xgq-lousn acid 0.4 1 ea PO QHS 07/02/13 Unkno wn History mg-lycopene 300 mcg-lutein 250 mcg tablet albuterol sulfate 90 mcg/actuation 2 puff inhalation Q 4H PRN PRN 07/09/15 Unknown History aerosol inhaler Shortness Of Breath atorvastatin 80 mg tablet 80 mg PO QHS 07/09/15 History ergocalciferol (vitamin D2) 1,250 50,000 unit PO SUWE 07/09/15 Unknown History mcg (50,000 unit) capsule metoprolol succinate 25 mg 12.5 mg PO DAILY 07/09/15 1 History tablet,extended release 24 hr zolpidem 5 mg tablet 10 mg PO QHS PRN PRN Sleep 0 12/07/16 Unknown History albuterol sulfate 0.63 mg/3 mL 0.63 mg inhalation Q4H 10/22/19 Unknown History solution for nebulization dapagliflozin propanediol 5 mg 10 mg PO DAILY 09/20/19 Unknown History tablet cyclobenzaprine 10 mg tablet 10 mg PO BID PRN muscle s pasm #10 04/22/21 Unknown Rx tabs lidocaine-prilocaine 2.5 %-2.5 % 1 applic topical ONCE PRN port 05/23/21 Unknown Rx topical cream access 30 days #30 grams prochlorperazine maleate 5 mg 5 mg PO TID PRN nausea a nd 11/30/21 Unknown Rx tablet (Compazine) vomiting #30 tabs aspirin 325 mg tablet 325 mg PO DAILY 01/04/22 Unk nown History docusate sodium 50 mg capsule 50 mg PO BID 01/04/22 Un known History (Colace Clear) lorazepam 0.5 mg tablet 0.5 mg PO QHS 04/19/22 Unkno wn History meclizine 25 mg tablet (Dramamine 25 mg PO DAILY PRN d izziness 04/19/22 Unknown History (meclizine)) levothyroxine 150 mcg tablet 150 mcg PO MOTUWETHFRSA 0 04/26/22 Unknown History sertraline 100 mg tablet (Zoloft) 100 mg PO DAILY 01/12 10/04 Unknown History methadone 5 mg tablet 7.5 mg PO Q12H 05/03/23 Unkn own History oxycodone 5 mg capsule 10 mg PO Q4H PRN Pain Unknown History glipizide 2.5 mg tablet 2.5 mg PO DAILY 09/27/23 Unk nown History insulin glargine 100 unit/mL (3 50 unit subcut QPM Unknown History mL) subcutaneous pen (Basaglar JocePen U-100 Insulin) palbociclib 75 mg tablet (Ibrance) 75 mg PO DAILY #21 tabs 08/16/24 Unknown Rx metoclopramide HCl 5 mg tablet 5 mg PO Q8H PRN PRN mahog[place] sea and 11/05/24 Unknown Rx (Reglan) vomiting 30 days #90 tabs Allergy/AdvReac Type Severity Reaction Status Date / Time Rnnqxll-AAQ-ZdO Reductase AdvReac Intermediate elevated Verified 02/12/25 13:40 Inhibitor (Zcqsmlu-Ulq-Ijk liver Reductase Inhibitor) enzymes Family History Father Myocardial infarction Sudden cardiac , Onset Age: 57 Brother Myocardial infarction CAD (coronary artery disease) Sister Myocardial infarction CAD (coronary artery disease) Uterine cancer Mother Ovarian cancer Sister Cancer Surgical History Hx of appendectomy Hx of right mastectomy History of bilateral mastectomy History of left heart catheterization (LHC) (~07/23/11) History of cholecystectomy History of hysterectomy Social History Smoking Status: Never smoker alcohol intake: never substance use type: does not use caffeine: Yes Type: tea Number of servings: 6 Diagnosis: Eriberto Schuler is a 69 year-old female diagnosed with pathologic stage IIA (pT2 pN0 (sn) Mx) invasive moderately differentiated ductal carcinoma (ER > 95%, WY >95%, HER-2 2+ IHC not amplified onFISH) status post right breast mastectomy andsentinel lymph node biopsy (07/06/2013) and 5 years ofadjuvant anastrozole (08/2013 - 08/2018) who now has evidence for a right lower pole kidney lesion a nd extensive axial and appendicular metastases status post CT abdomen/pelvis (04/22/2021), MRI cervical/thoracic/lumbar spine (04/23/2021), and PET scan (05/05/2021).? From 05/07/2021 ? 05/13/2021 she received palliative radiation to thespine T11-L1.? From 06/11/2021 ? 06/17/2021 she received 2000 cGy in 5fractions to the entire right femur and to the proximal right humerus.? 07/14/2023 she received palliative reirradiation to the right humerus.? She has been on Faslodex/Ibrance and recent imaging including bone scan and PET showed evidence for progression of disease. Plan: Plan was made to complete palliative radiation consisting of 2000 cGy delivered in 5 fractions to the sacrum and right iliac bone as well as the right acetabulum. Treatment Data: Treatment Site: Sacrum and right iliac bone, right acetabulum Current total dose/Total dose planned: 1600 cGy / 1600 cGy Fraction number: 4 / 5 Chemotherapy: none Subjective: Pain: 4-5 / 10, stable Fatigue: none Nausea without vomiting Objective: Weight: 230 lbs 8 oz Physical Exam: Gen: NAD Labs: none Assessment & Plan Assessment/Plan (1) Bone metastases: PLAN: Plan Assessment: Tolerating treatment well overall.? I reviewed and approved all treatment associated imaging. some nausea Plan: Continue treatment as planned.? I have reviewed potential treatment associated toxicities as well as timing for resolution and management. Skin: Skin care reviewed, continue lotion prn Follow up next week or sooner if needed. Thank you for allowing me to participate in the management and care of your patient. If I may answer any questions in the interim, please do not hesitate tocontact me at any time. Chelsea Anguiano DO, MS Mechanical Development Engineer, Department of Radiation Oncology [facility] Coding Level of Care Code Radiation Tx Management x5 Diagnoses Bone metastases C79.51 02/12/25 1354 DO> Date _ Chelsea Anguiano DO Cosigner Signature: Date (if applicable) CC: ~ [facility]05-08-2025 Evaluation note* Diagnosis Onset Date Resolution Status Admit Date Bone metastases chronic January 17, 2025 1:39pm Metastasis from breast cancer chroni c January 17, 2025 1:39pm Bone metastases chronic January 24, 2025 12:44pm Bone metastases chronic February 12, 2025 1:29pm Bone metastases chronic February 14, 2025 9:43am Metastasis from breast cancer chroni c February 14, 2025 9:43am Bone metastases chronic March 14, 2025 9:37am Metastasis from breast cancer chroni c March 14, 2025 9:37am Bone metastases chronic March 14, 2025 9:38am Bone metastases chronic March 1:14pm Metastasis from breast cancer chroni c March 21, 2025 1:14pm Bone metastases chronic March 2:27pm Metastasis from breast cancer chroni c April 04, 2025 2:27pm Bone metastases chronic May 022024 9:49am Metastasis from breast cancer chroni c May 02, 2025 9:49am [employer] Work Phone: 1(163) 525-818204-10-2025 Evaluation note* Diagnosis Onset Date Resolution Status Admit Date Bone metastases chronic December 8:46am Metastasis from breast cancer chroni c December 20, 2024 8:46am Bone metastases chronic January 17, 2025 1:39pm Metastasis from breast cancer chroni c January 17, 2025 1:39pm Bone metastases chronic January 24, 2025 12:44pm Bone metastases chronic February 12, 2025 1:29pm Bone metastases chronic February 14, 2025 9:43am Metastasis from breast cancer chroni c February 14, 2025 9:43am Bone metastases chronic March 14, 2025 9:37am Metastasis from breast cancer chroni c March 14, 2025 9:37am Bone metastases chronic March 14, 2025 9:38am Bone metastases chronic March 1:14pm Metastasis from breast cancer chroni c March 21, 2025 1:14pm Bone metastases chronic March 2:27pm Metastasis from breast cancer chroni c April 04, 2025 2:27pm [employer] Work Phone: 1(327) 467-823403-13-2025 Evaluation note* Diagnosis Onset Date Resolution Status Admit Date Bone metastases chronic November 1:28pm Metastasis from breast cancer chroni c November 22, 2024 1:28pm Bone metastases chronic December 8:46am Metastasis from breast cancer chroni c December 20, 2024 8:46am Bone metastases chronic January 17, 2025 1:39pm Metastasis from breast cancer chroni c January 17, 2025 1:39pm Bone metastases chronic January 24, 2025 12:44pm Bone metastases chronic February 12, 2025 1:29pm Bone metastases chronic February 14, 2025 9:43am Metastasis from breast cancer chroni c February 14, 2025 9:43am [employer] Work Phone: 1(751) 924-962603-13-2025 Evaluation note* Diagnosis Onset Date Resolution Status Admit Date Bone metastases chronic November 1:28pm Metastasis from breast cancer chroni c November 22, 2024 1:28pm Bone metastases chronic December 8:46am Metastasis from breast cancer chroni c December 20, 2024 8:46am Bone metastases chronic January 17, 2025 1:39pm Metastasis from breast cancer chroni c January 17, 2025 1:39pm Bone metastases chronic January 24, 2025 12:44pm Bone metastases chronic February 12, 2025 1:29pm Bone metastases chronic February 14, 2025 9:43am Metastasis from breast cancer chroni c February 14, 2025 9:43am Bone metastases chronic March 14, 2025 9:37am Metastasis from breast cancer chroni c March 14, 2025 9:37am [employer] [facility] Work Phone: 1(597) 636-676703-13-2025 Evaluation note* Diagnosis Onset Date Resolution Status Admit Date Bone metastases chronic November 1:28pm Metastasis from breast cancer chroni c November 22, 2024 1:28pm Bone metastases chronic December 8:46am Metastasis from breast cancer chroni c December 20, 2024 8:46am Bone metastases chronic January 17, 2025 1:39pm Metastasis from breast cancer chroni c January 17, 2025 1:39pm Bone metastases chronic January 24, 2025 12:44pm Bone metastases chronic February 12, 2025 1:29pm Bone metastases chronic February 14, 2025 9:43am Metastasis from breast cancer chroni c February 14, 2025 9:43am Bone metastases chronic March 14, 2025 9:37am Metastasis from breast cancer chroni c March 14, 2025 9:37am Bone metastases chronic March 14, 2025 9:38am Bone metastases chronic March 1:14pm Metastasis from breast cancer chroni c March 21, 2025 1:14pm [employer] [facility] Work Phone: 1(594) 979-316103-04-2025 Nuclear medicine Diagnostic study note [facility] Imaging Services [address] [place] [address] [id number] Bone Scan Whole Body MR#: [id number] Acct: [id number] Name: ERIBERTO SCHULER Rep #: [id number] : 1955 F 69 From: Shen García MD PCP: Dr. Rae Aguirre MD Status: REG CLI Study:Bone Scan Whole Body Date of Exam: 11/13/24 Exam# [id number] Ordering Dr: Kavon Calvillo MD PROCEDURE: BONE SCAN WHOLE BODY REASON FOR EXAM: Metastatic breast cancer. Bilateral shoulder pain and bilateral hip pain. TECHNIQUE: Blood flow, blood pool, and delayed phase imaging of the whole-body after radiopharmaceutical administration RADIOPHARMACEUTICAL: 27 mCi Technetium-99m MDP IV COMPARISON: CORRELATION WITH EXISTING RELEVANT IMAGING STUDIES (i.e. x-ray, MRI, CT, etc.): Comparison is made with prior whole-body bone scan dated May 26, 2023. FINDINGS: Once again, there are multiple areas of increased radiopharmaceutical uptake. Increased uptake in both shoulders as well as bilateral ribs more prominent along the anterior aspect of the right 6th rib. Foci are also seen ofincreased uptake in the dorsal and lumbar spines. Increased activity in both sacrum more prominent on the left side as wellas the posterior left iliac bone. NM/Bone Scan Whole Body IMPRESSION: Multifocal bilateral metastatic deposits. Reading Location: [id number] CC: HAYDEE Finn; Dr. Rae Aguirre MD; Dr. Myron Calvillo MD ~ Culvert Installer: Signed [facility]02-06-2025 Evaluation note* Diagnosis Onset Date Resolution Status Admit Date Bone metastases chronic October 18, 2024 11:30am Metastasis from breast cancer chroni c October 18, 2024 11:30am Bone metastases chronic October 25, 2024 12:01pm Metastasis from breast cancer chroni c October 25, 2024 12:01pm Bone metastases chronic November 1:28pm Metastasis from breast cancer chroni c November 22, 2024 1:28pm Bone metastases chronic December 8:46am Metastasis from breast cancer chroni c December 20, 2024 8:46am Bone metastases chronic January 17, 2025 1:39pm Metastasis from breast cancer chroni c January 17, 2025 1:39pm [facility] Work Phone: [phone]) 979-2381496712-67-3868 Evaluation note* Diagnosis Onset Date Resolution Status Admit Date Bone metastases chronic October 18, 2024 11:30am Metastasis from breast cancer chroni c October 18, 2024 11:30am Bone metastases chronic October 25, 2024 12:01pm Metastasis from breast cancer chroni c October 25, 2024 12:01pm Bone metastases chronic November 1:28pm Metastasis from breast cancer chroni c November 22, 2024 1:28pm Bone metastases chronic December 8:46am Metastasis from breast cancer chroni c December 20, 2024 8:46am Bone metastases chronic January 17, 2025 1:39pm Metastasis from breast cancer chroni c January 17, 2025 1:39pm Bone metastases chronic January 24, 2025 12:44pm Bone metastases chronic February 12, 2025 1:29pm [facility] Work Phone: 1(899) 447-485911-14-2024 Evaluation note* Diagnosis Onset Date Resolution Status Admit Date Bone metastases chronic July 26, 2024 12:36pm Metastasis from breast cancer chroni c July 26, 2024 12:36pm Bone metastases chronic August 23, 2024 8:35am Metastasis from breast cancer chroni c August 23, 2024 8:35am Bone metastases chronic September 202024 12:45pm Metastasis from breast cancer chroni c September 20, 2024 12:45pm Bone metastases chronic October 18, 2024 11:30am Metastasis from breast cancer chroni c October 18, 2024 11:30am Bone metastases chronic October 25, 2024 12:01pm Metastasis from breast cancer chroni c October 25, 2024 12:01pm [facility] Work Phone: [phone] Evaluation note* Diagnosis Onset Date Resolution Status Admit Date Bone metastases chronic July 26, 2024 12:36pm Metastasis from breast cancer chroni c July 26, 2024 12:36pm Bone metastases chronic August 23, 2024 8:35am Metastasis from breast cancer chroni c August 23, 2024 8:35am Bone metastases chronic September 202024 12:45pm Metastasis from breast cancer chroni c September 20, 2024 12:45pm Bone metastases chronic October 18, 2024 11:30am Metastasis from breast cancer chroni c October 18, 2024 11:30am Bone metastases chronic October 25, 2024 12:01pm Metastasis from breast cancer chroni c October 25, 2024 12:01pm Bone metastases chronic November 1:28pm Metastasis from breast cancer chroni c November 22, 2024 1:28pm [facility] Work Phone: 1(340) 273-729009-19-2023 Progress note Author Myron Calvillo [facility] May 31, 2023 2:08pm Note Date/Time May 31, 2023 1:32pm [facility] [address] OFFICE VISIT Date of Service: 05/31/23 1326 MR#: [id number] Acct: [id number] Name: ERIBERTO SCHULER Rep #: [id number] : 1955 From: Myron Calvillo MD Age/Sex: 68/F Location: [facility] Status: Signed HPI Subjective Date of Service 05/31/23 Chief Complaint Metastatic breast cancer on treatment History of Present Illness 68 y.o. woman. 06/19/2013: Patient underwent core biopsy of the right breast and this demonstrated invasive moderately differentiated ductal carcinoma (ER > 95%, WY >95%, HER-2 2+ IHC not amplified on FISH) 07/06/2013: Patient underwent right breast mastectomy and sentinel lymph node biopsy. Pathology demonstrated a 2.5 x 1.5 x 1.5 cm grade 2 carcinoma with mixed invasive ductal and invasive lobular features. Margins are negative with closest being 1 cm from the posterior margin. Lymph vascular invasion not identified. 0/5 lymph nodes were involved with metastatic carcinoma. pT2 pN0 (sn) Oncotype DX score was 23 and she declined adjuvant chemotherapy. 08/2013 - 08/2018: Received 5 years of adjuvant hormone therapy with anastrozole. April 2015: Patient noticed a subcutaneous nodule the right chest wall flap andbiopsy demonstrated lipoma. 04/19/2018: Patient completed bone scan due to developing right anterior chest discomfort radiating to the back which demonstrated some sternal activity. 05/22/2018: PET scan was performed. This demonstrated subtle increased glucose with thousand to find in the right anterolateral chest wall presenting with a maximum SUV of 1.7. This does not fulfill quantitative criteria for malignant transformation. 04/22/2021: Patient presented to the emergency room with increasing low back painparticularly on the right side. This had been present about 3 weeks and she hadbeen using supportive care per her PCP. 04/22/2021: CT abdomen/pelvis without contrast was performed. This demonstrated an exophytic cystic mass arising from the lower pole of the right kidney measuring about 3.6 x 2.9 x 3.3 cm. There is a lytic lesion within the posterior aspect of T12 which may extend into the spinal canal. There is evidence for multiple sclerotic metastases throughout the axial and appendicular skeleton. 04/23/2021: Patient underwent MRI of the cervical/thoracic/lumbar spine. This demonstrated findings consistent with metastatic disease involving C4, T1, T2, T4, T11, T12. There is innumerable and diffuse sclerotic bone metastases throughout the lumbar spine, sacrum, iliac bones. There is no evidence for compression fracture or impending cord compression. 05/05/2021: PET scan was completed. This demonstrated increased glucose metabolism in the right anterolateral chest wall rendering the [place] at maximum SUV of9.4 compared to 1.7 on the PET scan from 2018. There is also noted to be increase radiotracer concentration manifest multifocally within the appendicularand axial skeleton which fulfills quantitative criteria for viable neoplasm. No other evidence of disease is appreciated. 05/07/2021-05/13/2021: Completed palliative radiation to spine T11-L1. 05/11/2021 Started Tamoxifen 20mg bid. 05/25/2021 Started Herceptin analogue, because original pathology showed Her2 2+by IHC. 05/29/2021 Had punch biopsy of R chest nodule at [facility] which showed Metastatic Breast cancer. 06/15/2021 Got C2 Herceptin analogue. Got RT to R femur and R humerus from 06/11/2021 to 06/17/2021. 06/19/2021 NGS showed no actionable mutation. 07/06/2021 Got C3 Herceptin analogue. She get episodes of dizziness/vertigo. 07/20/2021 Bone scan showed stable disease. 07/27/2021 Got C4 Herceptin analogue. 08/10/2021 Echocardiogram showed EF 60%. 09/07/2021 Got C6 Herceptin analogue. 09/28/2021 Got C7. 10/19/2021 Got C8. 11/05/[address] chest done and found to have Bilateral PE. Started on Eliquis. 11/09/2021 Got C9 Herceptin. 12/14/2021 Bone scan showed progressive disease. 01/11/2022: Started Ibrance, Faslodex and Xgeva and Herceptin was discontinued.. 02/09/2022: Ibrance C2 was held d/t grade 3 neutropenia. 02/15/2022 Got Ibrance C2. 03/16/2022 C3 Faslodex and Ibrance held because of Neutropenia. 03/23/2022 Began cycle 3 Ibrance/Faslodex. 04/22/2022 C4 Ibrance held due to neutropenia 04/22/2022 brain MRI:Normal MRI brain with and without contrast and no significant interval change when compared to 11/26/2020. 04/26/2022 C4 Ibrance (dose reduction 100 Mg daily due to recurrent neutropenia) Faslodex. 06/07/2022 Got C5 Ibrance and Faslodex which was delayed one week because of ANC<1K. 07/05/2022 Got C6 Faslodex and Ibrance. 08/03/2022 Got C7. Feels well. Nodule on R anterior chest wall is fading. 08/31/2022 Got C8. Had episode of confusion, MRI 08/31/2022 showed no metastatic disease. 09/28/2022 Got C9. 11/02/2022 Got C10 Faslodex + Ibrance which was delayed 1 week because of neutropenia. 11/30/2022 C11 not given because of neutropenia. 12/07/2022 Got C11 Faslodex and Ibrance. 01/04/2023 C12 held because of low ANC. 01/11/2023 Got C12. Ibrance reduced to 75mg daily x 21 days. 02/09/2023 Got C13 Faslodex. 03/08/2023 Got C14 Faslodex. 04/05/2023 got C15 Faslodex. 05/03/2023 Got C16 05/31/2023 Comes for C17 Faslodex. Has pain R shoulder with movement. [facility] Medical History Abdominal cramping Acquired absence of bilateral breasts and nipples Acute asthma exacerbation Asthma Atherosclerotic heart disease of [place] coronary artery without angina pectoris Bone metastases Cardiology follow-up encounter Chest pain Coronary artery vasospasm Cough CPAP (continuous positive airway pressure) dependence Depression Diabetes Diabetes mellitus Diabetes mellitus, type II Elevated alkaline phosphatase level Encounter for education Essential hypertension GERD (gastroesophageal reflux disease) High cholesterol History of echocardiogram History of kidney stones History of stress test HLD (hyperlipidemia) Hot flashes related to aromatase inhibitor therapy Hx of cholecystitis Hypertension Hypothyroidism Left lower lobe pulmonary nodule Malignant neoplasm of right breast, stage 2 Marijuana use Mental status alteration Morbid obesity with BMI of 40.0-44.9, adult Nephrolithiasis Non-smoker Osteoarthritis Personal history of breast cancer RBBB Right kidney mass Sleep apnea Thyroid disease TIA (transient ischemic attack) Vitamin D deficiency Wears glasses Surgical History History of bilateral mastectomy History of cholecystectomy History of hysterectomy History of left heart catheterization (LHC) (~07/23/11) Hx of appendectomy Hx of right mastectomy Family History Father Myocardial infarction Sudden cardiac , Onset Age: 57 Brother Myocardial infarction CAD (coronary artery disease) Sister Myocardial infarction CAD (coronary artery disease) Uterine cancer Mother Ovarian cancer Sister Cancer Social History Smoking Status: Never smoker alcohol intake: never substance use type: does not use caffeine: Yes Type: tea Number of servings: 6 ROS Constitutional Constitutional: Reports systems reviewed and no addt'l complaints, except as documented and fatigue; Denies fever(s) or weight loss Eyes Eyes: Reports systems reviewed and no addt'l complaints, except as documented; Denies change in vision ENT HEENT: Reports systems reviewed and no addt'l complaints, except as documented; Denies mouth lesions Cardiovascular Cardiovascular: Reports systems reviewed and no addt'l complaints, except as documented; Denies chest pain with activity Respiratory/Chest Respiratory/Chest: Reports systems reviewed and no addt'l complaints, except as documented; Denies cough or dyspnea Gastrointestinal Gastrointestinal: Reports systems reviewed and no addt'l complaints, except as documented; Denies change in bowel habits or nausea Genitourinary Genitourinary: Reports systems reviewed and no addt'l complaints, except as documented Musculoskeletal Musculoskeletal: Reports systems reviewed and no addt'l complaints, except as documented; Denies back pain Integumentary Integumentary: Reports systems reviewed and no addt'l complaints, except as documented; Denies rash Neurologic Neurologic: Reports systems reviewed and no addt'l complaints, except as documented; Denies focal weakness or paresthesias Psychiatric Psychiatric: Reports systems reviewed and no addt'l complaints, except as documented Endocrine Endocrinology: Reports systems reviewed and no addt'l complaints, except as documented Hematologic/Lymphatic Hematologic/Lymphatic: Reports systems reviewed and no addt'l complaints, exceptas documented; Denies easy bleeding, easy bruising or lymphadenopathy Allergic/Immunologic Allergic/Immunologic: Reports systems reviewed and no addt'l complaints, except as documented Intake Vital Signs 05/03/23 10:47 05/31/23 13:27 Height 5 ft 6 in 5 ft 6 in Weight: 103.419 kg BMI 36.8 BP 105/62 Blood Pressure Location Rt brachial Position Sitting Respiration 15 Pulse 62 Pulse Source Monitor Temp 98.2 F Temperature Source Temporal Artery Pulse Oximetry (%) 95 Oxygen Delivery Method room air Intake Medical Scheduler Required: No Accompanied by: Son Is patient in pain?: Yes (right shoulder and low back) Pain scale (1-10): 3 Allergies Yttzfqf-IFZ-ZrM Reductase Inhibitor [Pilumfo-Cmd-Ixx Reductase Inhibitor] Adverse Reaction (Intermediate, Verified 05/31/23 13:29) elevated liver enzymes Medications losartan 100 mg tablet 100 mg PO DAILY 07/02/13 [History Confirmed 05/31/23] metformin 1,000 mg tablet 1,000 mg PO BIDCM 07/02/13 [History Confirmed 05/31/23] cpzbazhr-hma-eqzis acid 0.4 mg-lycopene 300 mcg-lutein 250 mcg tablet 1 ea PO QHS 07/02/13 [History Confirmed 05/31/23] albuterol sulfate 90 mcg/actuation aerosol inhaler 2 puff inhalation Q4H PRN PRNShortness Of Breath 07/09/15 [History Confirmed 05/31/23] atorvastatin 80 mg tablet 80 mg PO QHS 07/09/15 [History Confirmed 05/31/23] ergocalciferol (vitamin D2) 1,250 mcg (50,000 unit) capsule 50,000 unit PO SUWE 07/09/15 [History Confirmed 05/31/23] metoprolol succinate 25 mg tablet,extended release 24 hr 12.5 mg PO DAILY 07/09/15 [History Confirmed 05/31/23] zolpidem 5 mg tablet 10 mg PO QHS PRN PRN Sleep 12/07/16 [History Confirmed 05/31/23] albuterol sulfate 0.63 mg/3 mL solution for nebulization 0.63 mg inhalation Q4H 07/03/19 [History Confirmed 05/31/23] dapagliflozin propanediol 5 mg tablet 10 mg PO DAILY 09/20/19 [History Confirmed 05/31/23] cyclobenzaprine 10 mg tablet 10 mg PO BID PRN muscle spasm #10 tabs 04/22/21 [Rx Confirmed 05/31/23] lidocaine-prilocaine 2.5 %-2.5 % topical cream 1 applic topical ONCE PRN port access 30 days #30 grams 05/23/21 [Rx Confirmed 05/31/23] lutein 40 mg capsule 40 mg PO DAILY 11/30/21 [History Confirmed 05/31/23] prochlorperazine maleate 5 mg tablet (Compazine) 5 mg PO TID PRN nausea and vomiting #30 tabs 11/30/21 [Rx Confirmed 05/31/23] aspirin 325 mg tablet 325 mg PO DAILY 01/04/22 [History Confirmed 05/31/23] docusate sodium 50 mg capsule (Colace Clear) 50 mg PO BID 01/04/22 [History Confirmed 05/31/23] lorazepam 0.5 mg tablet 0.5 mg PO QHS 04/19/22 [History Confirmed 05/31/23] meclizine 25 mg tablet (Dramamine (meclizine)) 25 mg PO DAILY PRN dizziness 04/19/22 [History Confirmed 05/31/23] levothyroxine 150 mcg tablet 150 mcg PO MOTUWETHFRSA 04/26/22 [History Confirmed 05/31/23] palbociclib 100 mg capsule (Ibrance) 100 mg PO DAILY 21 days #21 caps 04/27/22 [Rx Confirmed 05/31/23] sertraline 100 mg tablet (Zoloft) 100 mg PO DAILY 02/09/23 [History Confirmed 05/31/23] methadone 5 mg tablet 7.5 mg PO Q12H 05/03/23 [History Confirmed 05/31/23] oxycodone 5 mg capsule 10 mg PO Q4H PRN Pain 05/03/23 [History Confirmed 05/31/23] Central Venous Access Central Venous Access: Yes Port/PICC: Port (left chest) Laboratory Tests 09/28/22 09/28/22 10/26/22 09:50 11:05 09:50 WBC 2.0 L 1.9 L Hgb 12.3 11.6 L Hct 36.6 L 34.9 L Plt Count 125 L 122 L Absolute Neuts (auto) 1.1 L 0.9 L Sodium Potassium Chloride Carbon Dioxide BUN Creatinine Glucose Calcium Phosphorus Total Bilirubin AST ALT Alkaline Phosphatase Total Protein Albumin Globulin Carcinoembryonic Ag CA 15-3 Antigen 33.7 H CA 27-29 33.0 CA 125 Antigen 11/02/22 12/07/22 01/04/23 10:36 10:38 10:55 WBC 2.6 L 2.4 L 2.0 L Hgb 12.6 11.7 L 12.0 Hct 36.7 L 34.3 L 34.3 L Plt Count 165 131 L 166 Absolute Neuts (auto) 1.3 L 1.3 L 0.9 L Sodium 139 Potassium 3.8 Chloride 103 Carbon Dioxide 28.0 BUN 17 Creatinine 1.11 H Glucose 214 H Calcium 9.0 Phosphorus 4.3 Total Bilirubin 0.40 AST 62 H ALT 56 Alkaline Phosphatase 90 Total Protein 7.0 Albumin 3.5 Globulin 3.5 Carcinoembryonic Ag CA 15-3 Antigen CA 27-29 CA 125 Antigen 03/08/23 05/03/23 05/03/23 14:35 09:40 09:40 WBC 2.2 L Hgb 11.1 L Hct 33.1 L Plt Count 165 Absolute Neuts (auto) 1.3 L Sodium Potassium Chloride Carbon Dioxide BUN Creatinine Glucose Calcium Phosphorus Total Bilirubin AST ALT Alkaline Phosphatase Total Protein Albumin Globulin Carcinoembryonic Ag 4.1 CA 15-3 Antigen 23.0 CA 27-29 20.6 CA 125 Antigen 17.9 05/31/23 12:35 WBC 2.1 L Hgb 11.9 L Hct 34.6 L Plt Count 162 Absolute Neuts (auto) Sodium Potassium Chloride Carbon Dioxide BUN Creatinine Glucose Calcium Phosphorus Total Bilirubin AST ALT Alkaline Phosphatase Total Protein Albumin Globulin Carcinoembryonic Ag CA 15-3 Antigen CA 27-29 CA 125 Antigen 05/26/2023 bone scan reviewed. NM/Bone Scan Whole Body IMPRESSION: Similar multifocal osseous metastasis. Electronically Signed: Geraldo Juan MD ([place]) at 14:22 EDT 05/23/[address]/CT Chest AND Abd W/ Contrast IMPRESSION: Diffuse sclerotic metastasis of the thoracic and lumbar vertebrae as well as the pelvic bones. Electronically Signed: Keegan García MD at 15:35 EDT Exam Physical Exam Narrative ECOG 1 Const alert, oriented x3 and no apparent distress General Appearance: comfortable HEENT normocephalic Face and Sinus: normal facial exam Mouth: oral and palatal mucosa normal Eyes General Eye: normal appearance of both eyes Neck no lymphadenopathy and no JVD Lymph Lymphatic: no lymphadenopathy noted Chest Chest: symmetrical chest wall rise and vascular access Resp normal respiratory effort and clear to auscultation bilaterally Cardio regular rate, regular rhythm, S1 normal heart sound, S2 normal heart sound and no murmurs GI soft to palpation, non-tender and non-distended; Negative for hepatosplenomegaly no CVA tenderness Back/Spine Cervical Spine: Negative for cervical spine tenderness Thoracic Spine / Upper Back: thoracic spinal tenderness Lumbar Spine / Lower Back: Negative for lumbar spinal tenderness Extremity no clubbing, cyanosis or edema Extremity Narrative: +tenderness R shoulder area. Skin no rashes or lesions noted Neuro oriented x3, CN's II-XII intact bilaterally, moves all extremities and no focal motor deficits Speech: speech normal Gait (Neuro): normal gait and other cautious when getting on/off exam table Psych mental status grossly normal Coding Level of Care Code Off vis,est,level 4 Exam Problem Focused Diagnoses Bone metastases C79.51 Metastasis from breast cancer C79.9; C50.919 Abdominal cramping R10.9 Assessment and Plan Assessment and Plan (1) Bone metastases: Status: Chronic Comment: Received radiation to R femur metastases and R humerus from 06/11/2021 to 06/17/2021. Started Faslodex, Xgeva and Ibrance on 01/11/2022 for Progressive disease. Bone scan on 06/03/2022 show stable disease. Clinically stable, no evidence of progressive disease. Xgeva was discontinued after 01/11/2023. Bone scan 05/26/2023 reviewed, show stable changes. CT 05/23/2023 reviewed, shows bony metastases, no soft tissue metastases. Plan: To proceed with C17 Faslodex, Ibrance. To continue Ibrance at 75mg days 1-21 days. Ca15-3 and Ca27.29 are pending. RTC 4 week. (2) Metastasis from breast cancer: Status: Chronic Comment: H/O R breast cancer. Her2 2+ by IHC, ER positive. Progression evident on bone scan 12/14/21. Began Ibrance/Faslodex on 01/11/22. Started cycle 4 in April 2022 with dose reduction of Ibrance to 100 Mg daily 3 weeks on 1 week off. On Faslodex. Xgeva at 4 weeks interval was stopped in January 2023. Plan: To proceed with C17 Faslodex and Ibrance. Suggested PT for R shoulder pain and Pt declined. (3) Abdominal cramping: Status: Resolved Comment: CT c/a/p 05/23/2023 reviewed, chest and abdomen is benign. Plan: To do observation Orders: Orders CBC W/Diff, Automated 06/28/23 C50.919 - Malignant neoplasm of unspecified site of unspecified female breast, C79.51 - Secondary malignant neoplasm of bone, C79.9 - Secondary malignant neoplasm of unspecified site, E78.5 - Hyperlipidemia, unspecified Comprehensive Metabolic Profil 06/28/23 C50.919 - Malignant neoplasm of unspecified site of unspecified female breast, C79.51 - Secondary malignant neoplasm of bone, C79.9 - Secondary malignant neoplasm of unspecified site LDH 06/28/23 C50.919 - Malignant neoplasm of unspecified site of unspecified female breast, C79.51 - Secondary malignant neoplasm of bone, C79.9 - Secondary malignant neoplasm of unspecified site Plan Details Follow Up: 4 Weeks 05/31/23 1408 <Electronically signed by Myron Wright> Date _ Myron Calvillo MD Cosigner Signature: Date (if applicable) CC: Dr. Adolfo Aguirre MD ~ [facility] Work Phone: Evaluation note* Diagnosis Onset Date Resolution Status Encounter for monoclonal ant ibody treatment for malignancy acute Bone metastases chronic Metastasis from breast cancer chronic Skin nodule chronic Encounter for monoclonal ant ibody treatment for malignancy acute Bone metastases chronic Metastasis from breast cancer chronic Skin nodule chronic Encounter for monoclonal ant ibody treatment for malignancy acute Right-sided chest pain acute Bone metastases chronic Metastasis from breast cancer chronic Skin nodule chronic Bilateral pulmonary embolism acute Bilateral pulmonary embolism acute Encounter for monoclonal ant ibody treatment for malignancy acute Bone metastases chronic Metastasis from breast cancer chronic Acute UTI acute Bilateral pulmonary embolism acute Encounter for monoclonal ant ibody treatment for malignancy acute Bone metastases chronic Metastasis from breast cancer chronic [facility] Work Phone: evaluation note* Diagnosis Onset Date Resolution Status Encounter for monoclonal ant ibody treatment for malignancy acute Bone metastases chronic Metastasis from breast cancer chronic Skin nodule chronic Encounter for monoclonal ant ibody treatment for malignancy acute Right-sided chest pain acute Bone metastases chronic Metastasis from breast cancer chronic Skin nodule chronic Bilateral pulmonary embolism acute Bilateral pulmonary embolism acute Encounter for monoclonal ant ibody treatment for malignancy acute Bone metastases chronic Metastasis from breast cancer chronic Acute UTI acute Bilateral pulmonary embolism acute Encounter for monoclonal ant ibody treatment for malignancy acute Bone metastases chronic Metastasis from breast cancer chronic Acute UTI acute Bilateral pulmonary embolism acute Encounter for monoclonal ant ibody treatment for malignancy acute Bone metastases chronic Metastasis from breast cancer chronic Bilateral pulmonary embolism acute Bone metastases chronic Metastasis from breast cancer chronic [facility] Work Phone: Evaluation note* Diagnosis Onset Date Resolution Status Bilateral pulmonary embolism acute Bone metastases chronic Metastasis from breast cancer chronic Bilateral pulmonary embolism acute Bone metastases chronic Metastasis from breast cancer chronic Hypocalcemia resolved Bilateral pulmonary embolism acute Bone metastases chronic Metastasis from breast cancer chronic Hypocalcemia resolved Bone metastases chronic Metastasis from breast cancer chronic Bone metastases chronic Metastasis from breast cancer chronic Bone metastases chronic Metastasis from breast cancer chronic Bone metastases chronic Metastasis from breast cancer chronic Mental status alteration acu te Bone metastases chronic Metastasis from breast cancer chronic Bone metastases chronic Metastasis from breast cancer chronic [facility] Work Phone: Evaluation note* Diagnosis Onset Date Resolution Status Dysuria acute Bone metastases chronic Metastasis from breast cancer chronic Cystitis acute Bone metastases chronic Metastasis from breast cancer chronic Bone metastases chronic Metastasis from breast cancer chronic Bone metastases chronic Metastasis from breast cancer chronic Confusion acute Bone metastases chronic Metastasis from breast cancer chronic [facility] Work Phone: Evaluation note* Diagnosis Onset Date Resolution Status Confusion acute Bone metastases chronic Metastasis from breast cancer chronic Bone metastases chronic Metastasis from breast cancer chronic Neutropenia acute Bone metastases chronic Metastasis from breast cancer chronic Bone metastases chronic Metastasis from breast cancer chronic Bone metastases chronic Metastasis from breast cancer chronic [facility] Work Phone: Evaluation note* Diagnosis Onset Date Resolution Status Anemia acute Bone metastases chronic Metastasis from breast cancer chronic Bone metastases chronic Metastasis from breast cancer chronic Bone metastases chronic Metastasis from breast cancer chronic Anemia acute Cough acute Bone metastases chronic Metastasis from breast cancer chronic Abdominal cramping resolved Bone metastases chronic Metastasis from breast cancer chronic Abdominal cramping resolved [facility] Work Phone: Evaluation note* Diagnosis Onset Date Resolution Status Bone metastases chronic Metastasis from breast cancer chronic Bone metastases chronic Metastasis from breast cancer chronic Anemia acute Cough acute Bone metastases chronic Metastasis from breast cancer chronic Abdominal cramping resolved Bone metastases chronic Metastasis from breast cancer chronic Abdominal cramping resolved Pain of right humerus acute Bone metastases chronic Metastasis from breast cancer chronic Bone metastases chronic Pain of right humerus acute Bone metastases chronic Metastasis from breast cancer chronic [facility] Work Phone: Evaluation note* Diagnosis Onset Date Resolution Status Pain of right humerus acute Bone metastases chronic Metastasis from breast cancer chronic Pain of right humerus acute Bone metastases chronic Metastasis from breast cancer chronic Low back pain acute Pain of right humerus acute Bone metastases chronic Metastasis from breast cancer chronic Bone metastases chronic Metastasis from breast cancer chronic [facility] Work Phone: Progress note Author Chelsea Anguiano [facility] Note Date/Time February 12, 2025 1:54p [facility] [address] [address] OFFICE VISIT Date of Service: 02/12/25 1336 MR#: [id number] Acct: [id number] Name: ERIBERTO SCHULER Rep #: [id number] : 1955 From: Chelsea Walsto n DO Age/Sex: 69/F [place] [facility] [place]igned Intake Vital Signs 01/24/25 13:02 02/12/25 13:40 Height 5 ft 6 in 5 ft 6 in Weight: 230 lb 8 oz BMI 37.2 BP 114/67 Blood Pressure Location Rt brachial Position Sitting Respiration 18 Pulse 80 Pulse Source Monitor Temp 97.1 F L Temperature Source Temporal Artery Pulse Oximetry (%) 96 Oxygen Delivery Method room air Intake Visit Reasons: OTV Is patient in pain?: Yes (back) Pain scale (1-10): 6 Allergies Cxygwps-FBU-DwM Reductase Inhibitor (Ehnotuv-Pwq-Zpp Reductase Inhibitor) Adverse Reaction (Intermediate, Verified 02/12/25 13:40) elevated liver enzymes Medications ?Medication ?Instructions ?Recorded ?Confirmed ?Type losartan 100 mg tablet 100 mg PO DAILY 07/02/1312/04 History metformin 1,000 mg tablet 1,000 mg PO BIDCM 07/02/13 0 02/12/25 History xlfuabaa-ceq-awxgg acid 0.4 1 ea PO QHS 07/02/1302/12 History mg-lycopene 300 mcg-lutein 250 mcg tablet albuterol sulfate 90 mcg/actuation 2 puff inhalation Q 4H PRN PRN 07/09/15 02/12/25 History aerosol inhaler Shortness Of Breath atorvastatin 80 mg tablet 80 mg PO QHS 07/09/15 History ergocalciferol (vitamin D2) 1,250 50,000 unit PO SUWE 07/09/15 02/12/25 History mcg (50,000 unit) capsule metoprolol succinate 25 mg 12.5 mg PO DAILY 07/09/15 0 02/12/25 History tablet,extended release 24 hr zolpidem 5 mg tablet 10 mg PO QHS PRN PRN Sleep 0 12/07/16 02/12/25 History albuterol sulfate 0.63 mg/3 mL 0.63 mg inhalation Q4H 07/03/19 02/12/25 History solution for nebulization dapagliflozin propanediol 5 mg 10 mg PO DAILY 09/20/19 02/12/25 History tablet cyclobenzaprine 10 mg tablet 10 mg PO BID PRN muscle s pasm #10 04/22/21 02/12/25 Rx tabs lidocaine-prilocaine 2.5 %-2.5 % 1 applic topical ONCE PRN port 05/23/21 02/12/25 Rx topical cream access 30 days #30 grams prochlorperazine maleate 5 mg 5 mg PO TID PRN nausea a nd 11/30/21 02/12/25 Rx tablet (Compazine) vomiting #30 tabs aspirin 325 mg tablet 325 mg PO DAILY 01/04/2212/04 History docusate sodium 50 mg capsule 50 mg PO BID 01/04/22 History (Colace Clear) lorazepam 0.5 mg tablet 0.5 mg PO QHS 04/19/2202/12 History meclizine 25 mg tablet (Dramamine 25 mg PO DAILY PRN d izziness 04/19/22 02/12/25 History (meclizine)) levothyroxine 150 mcg tablet 150 mcg PO MOTUWETHFRSA 0 04/26/22 02/12/25 History sertraline 100 mg tablet (Zoloft) 100 mg PO DAILY 01/1202/12/25 History methadone 5 mg tablet 7.5 mg PO Q12H 05/03/2312/04 History oxycodone 5 mg capsule 10 mg PO Q4H PRN Pain 02/12/25 History glipizide 2.5 mg tablet 2.5 mg PO DAILY 09/27/2312/04 History insulin glargine 100 unit/mL (3 50 unit subcut QPM 02/12/25 History mL) subcutaneous pen (Basaglar Dav U-100 Insulin) palbociclib 75 mg tablet (Ibrance) 75 mg PO DAILY #21 tabs 08/16/24 02/12/25 Rx metoclopramide HCl 5 mg tablet 5 mg PO Q8H PRN PRN [place] and 11/05/24 02/12/25 Rx (Reglan) vomiting 30 days #90 tabs Have you fallen in the past year?: No PFSH PFSH Medical History Breast cancer metastasized to bone Pain of right humerus Abdominal cramping Cough Mental status alteration Encounter for education Wears glasses Marijuana use Thyroid disease Diabetes High cholesterol Non-smoker CPAP (continuous positive airway pressure) dependence Asthma History of echocardiogram History of stress test Hypertension Cardiology follow-up encounter Right kidney mass Left lower lobe pulmonary nodule Bone metastases Atherosclerotic heart disease of [place] coronary artery without angina pectoris TIA (transient ischemic attack) Coronary artery vasospasm Essential hypertension Elevated alkaline phosphatase level History of kidney stones Hx of cholecystitis Diabetes mellitus Hot flashes related to aromatase inhibitor therapy Malignant neoplasm of right breast, stage 2 Chest pain RBBB Vitamin D deficiency GERD (gastroesophageal reflux disease) Osteoarthritis Acute asthma exacerbation Nephrolithiasis Hypothyroidism HLD (hyperlipidemia) Depression Diabetes mellitus, type II Morbid obesity with BMI of 40.0-44.9, adult Sleep apnea Acquired absence of bilateral breasts and nipples Personal history of breast cancer Home Medications ?Medication ?Instructions ?Recorded ?Last Taken ?Type losartan 100 mg tablet 100 mg PO DAILY 07/02/13 History metformin 1,000 mg tablet 1,000 mg PO BIDCM 07/02/13 1 History oolgunyd-gew-diltp acid 0.4 1 ea PO QHS 07/02/13 Unkno wn History mg-lycopene 300 mcg-lutein 250 mcg tablet albuterol sulfate 90 mcg/actuation 2 puff inhalation Q 4H PRN PRN 07/09/15 Unknown History aerosol inhaler Shortness Of Breath atorvastatin 80 mg tablet 80 mg PO QHS 07/09/15 History ergocalciferol (vitamin D2) 1,250 50,000 unit PO SUWE 07/09/15 Unknown History mcg (50,000 unit) capsule metoprolol succinate 25 mg 12.5 mg PO DAILY 07/09/15 1 History tablet,extended release 24 hr zolpidem 5 mg tablet 10 mg PO QHS PRN PRN Sleep 0 12/07/16 Unknown History albuterol sulfate 0.63 mg/3 mL 0.63 mg inhalation Q4H 07/03/19 Unknown History solution for nebulization dapagliflozin propanediol 5 mg 10 mg PO DAILY 09/20/19 Unknown History tablet cyclobenzaprine 10 mg tablet 10 mg PO BID PRN muscle s pasm #10 04/22/21 Unknown Rx tabs lidocaine-prilocaine 2.5 %-2.5 % 1 applic topical ONCE PRN port 05/23/21 Unknown Rx topical cream access 30 days #30 grams prochlorperazine maleate 5 mg 5 mg PO TID PRN nausea a nd 11/30/21 Unknown Rx tablet (Compazine) vomiting #30 tabs aspirin 325 mg tablet 325 mg PO DAILY 01/04/22 Unk nown History docusate sodium 50 mg capsule 50 mg PO BID 01/04/22 Un known History (Colace Clear) lorazepam 0.5 mg tablet 0.5 mg PO QHS 04/19/22 Unkno wn History meclizine 25 mg tablet (Dramamine 25 mg PO DAILY PRN d izziness 04/19/22 Unknown History (meclizine)) levothyroxine 150 mcg tablet 150 mcg PO MOTUWETHFRSA 0 04/26/22 Unknown History sertraline 100 mg tablet (Zoloft) 100 mg PO DAILY 01/12 10/04 Unknown History methadone 5 mg tablet 7.5 mg PO Q12H 05/03/23 Unkn own History oxycodone 5 mg capsule 10 mg PO Q4H PRN Pain Unknown History glipizide 2.5 mg tablet 2.5 mg PO DAILY 09/27/23 Unk nown History insulin glargine 100 unit/mL (3 50 unit subcut QPM Unknown History mL) subcutaneous pen (Basaglar KwikPen U-100 Insulin) palbociclib 75 mg tablet (Ibrance) 75 mg PO DAILY #21 tabs 08/16/24 Unknown Rx metoclopramide HCl 5 mg tablet 5 mg PO Q8H PRN PRN mahogany sea and 11/05/24 Unknown Rx (Reglan) vomiting 30 days #90 tabs Allergy/AdvReac Type Severity Reaction Status Date / Time Yerwsqj-PZW-ViS Reductase AdvReac Intermediate elevated Verified 02/12/25 13:40 Inhibitor (Fuquges-Bkm-Ubz liver Reductase Inhibitor) enzymes Family History Father Myocardial infarction Sudden cardiac , Onset Age: 57 Brother Myocardial infarction CAD (coronary artery disease) Sister Myocardial infarction CAD (coronary artery disease) Uterine cancer Mother Ovarian cancer Sister Cancer Surgical History Hx of appendectomy Hx of right mastectomy History of bilateral mastectomy History of left heart catheterization (LHC) (~07/23/11) History of cholecystectomy History of hysterectomy Social History Smoking Status: Never smoker alcohol intake: never substance use type: does not use caffeine: Yes Type: tea Number of servings: 6 Diagnosis: Eriberto Schuler is a 69 year-old female diagnosed with pathologic stage IIA (pT2 pN0 (sn) Mx) invasive moderately differentiated ductal carcinoma (ER > 95%, WY >95%, HER-2 2+ IHC not amplified on FISH) status post right breast mastectomy andsentinel lymph node biopsy (07/06/2013) and 5 years of adjuvant anastrozole (08/2013 - 08/2018) who now has evidence for a right lower pole kidney lesion and extensive axial and appendicular metastases status post CT abdomen/pelvis (04/22/2021), MRI cervical/thoracic/lumbar spine (04/23/2021), and PET scan (05/05/2021).? From 05/07/2021 ? 05/13/2021 she received palliative radiation to thespine T11-L1.? From 06/11/2021 ? 06/17/2021 she received 2000 cGy in 5 fractions to the entire right femur and to the proximal right humerus.? 07/14/2023 she received palliative reirradiation to the right humerus.? She has been on Faslodex/Ibrance and recent imaging including bone scan and PET showed evidence for progression of disease. Plan: Plan was made to complete palliative radiation consisting of 2000 cGy delivered in 5 fractions to the sacrum and right iliac bone as well as the right acetabulum. Treatment Data: Treatment Site: Sacrum and right iliac bone, right acetabulum Current total dose/Total dose planned: 1600 cGy / 1600 cGy Fraction number: 4 Chemotherapy: none Subjective: Pain: 4-5 / 10, stable Fatigue: none Nausea without vomiting Objective: Weight: 230 lbs 8 oz Physical Exam: Gen: NAD Labs: none Assessment & Plan Assessment/Plan (1) Bone metastases: PLAN: Plan Assessment: Tolerating treatment well overall.? I reviewed and approved all treatment associated imaging. some nausea Plan: Continue treatment as planned.? I have reviewed potential treatment associated toxicities as well as timing for resolution and management. Skin: Skin care reviewed, continue lotion prn Follow up next week or sooner if needed. Thank you for allowing me to participate in the management and care of your patient. If I may answer any questions in the interim, please do not hesitate tocontact me at any time. Chelsea Anguiano DO, MS Mechanical Development Engineer, Department of Radiation Oncology [facility] Coding Level of Care Code Radiation Tx Management x5 Diagnoses Bone metastases C79.51 02/12/25 1354 <Electronically signed by Chelsea Anguiano DO> Date _ Chelsea Anguiano DO Cosigner Signature: Date (if applicable) CC: ~ [employer] Work Phone: Progress note Author Myron Calvillo [facility] Note Date/Time May 30, 2025 3:05pm [facility] [address] [address] OFFICE VISIT Date of Service: 05/30/25 1421 MR#: [id number] Acct: [id number] Name: ERIBERTO SCHULER Rep #: [id number] : 1955 From: Myron Calvillo MD Age/Sex: 70/F [place] [facility] [place]: Signed HPI Subjective Date of Service 05/30/25 Chief Complaint Metastatic breast cancer on treatment History of Present Illness 70 y.o. woman. 06/19/2013: Patient underwent core biopsy of the right breast and this demonstrated invasive moderately differentiated ductal carcinoma (ER > 95%, WY >95%, HER-2 2+ IHC not amplified on FISH) 07/06/2013: Patient underwent right breast mastectomy and sentinel lymph node biopsy. Pathology demonstrated a 2.5 x 1.5 x 1.5 cm grade 2 carcinoma with mixed invasive ductal and invasive lobular features. Margins are negative with closest being 1 cm from the posterior margin. Lymph vascular invasion not identified. 0/5 lymph nodes were involved with metastatic carcinoma. pT2 pN0 (sn) Oncotype DX score was 23 and she declined adjuvant chemotherapy. 08/2013 - 08/2018: Received 5 years of adjuvant hormone therapy with anastrozole. April 2015: Patient noticed a subcutaneous nodule the right chest wall flap andbiopsy demonstrated lipoma. 04/19/2018: Patient completed bone scan due to developing right anterior chest discomfort radiating to the back which demonstrated some sternal activity. 05/22/2018: PET scan was performed. This demonstrated subtle increased glucose with thousand to find in the right anterolateral chest wall presenting with a maximum SUV of 1.7. This does not fulfill quantitative criteria for malignant transformation. 04/22/2021: Patient presented to the emergency room with increasing low back painparticularly on the right side. This had been present about 3 weeks and she hadbeen using supportive care per her PCP. 04/22/2021: CT abdomen/pelvis without contrast was performed. This demonstrated an exophytic cystic mass arising from the lower pole of the right kidney measuring about 3.6 x 2.9 x 3.3 cm. There is a lytic lesion within the posterior aspect of T12 which may extend into the spinal canal. There is evidence for multiple sclerotic metastases throughout the axial and appendicular skeleton. 04/23/2021: Patient underwent MRI of the cervical/thoracic/lumbar spine. This demonstrated findings consistent with metastatic disease involving C4, T1, T2, T4, T11, T12. There is innumerable and diffuse sclerotic bone metastases throughout the lumbar spine, sacrum, iliac bones. There is no evidence for compression fracture or impending cord compression. 05/05/2021: PET scan was completed. This demonstrated increased glucose metabolism in the right anterolateral chest wall rendering the [place] at maximum SUV of9.4 compared to 1.7 on the PET scan from 2018. There is also noted to be increase radiotracer concentration manifest multifocally within the appendicularand axial skeleton which fulfills quantitative criteria for viable neoplasm. No other evidence of disease is appreciated. 05/07/2021-05/13/2021: Completed palliative radiation to spine T11-L1. 05/11/2021 Started Tamoxifen 20mg bid. 05/25/2021 Started Herceptin analogue, because original pathology showed Her2 2+by IHC. 05/29/2021 Had punch biopsy of R chest nodule at [facility] which showed Metastatic Breast cancer. 06/15/2021 Got C2 Herceptin analogue. Got RT to R femur and R humerus from 06/11/2021 to 06/17/2021. 06/19/2021 NGS showed no actionable mutation. 07/06/2021 Got C3 Herceptin analogue. She get episodes of dizziness/vertigo. 07/20/2021 Bone scan showed stable disease. 07/27/2021 Got C4 Herceptin analogue. 08/10/2021 Echocardiogram showed EF 60%. 09/07/2021 Got C6 Herceptin analogue. 09/28/2021 Got C7. 10/19/2021 Got C8. 11/05/[address] chest done and found to have Bilateral PE. Started on Eliquis. 11/09/2021 Got C9 Herceptin. 12/14/2021 Bone scan showed progressive disease. 01/11/2022: Started Ibrance, Faslodex and Xgeva and Herceptin was discontinued.. 02/09/2022: Ibrance C2 was held d/t grade 3 neutropenia. 02/15/2022 Got Ibrance C2. 03/16/2022 C3 Faslodex and Ibrance held because of Neutropenia. 03/23/2022 Began cycle 3 Ibrance/Faslodex. 04/22/2022 C4 Ibrance held due to neutropenia 04/22/2022 brain MRI:Normal MRI brain with and without contrast and no significant interval change when compared to 11/26/2020. 04/26/2022 C4 Ibrance (dose reduction 100 Mg daily due to recurrent neutropenia) Faslodex. 06/07/2022 Got C5 Ibrance and Faslodex which was delayed one week because of ANC<1K. 07/05/2022 Got C6 Faslodex and Ibrance. 08/03/2022 Got C7. Feels well. Nodule on R anterior chest wall is fading. 08/31/2022 Got C8. Had episode of confusion, MRI 08/31/2022 showed no metastatic disease. 09/28/2022 Got C9. 11/02/2022 Got C10 Faslodex + Ibrance which was delayed 1 week because of neutropenia. 11/30/2022 C11 not given because of neutropenia. 12/07/2022 Got C11 Faslodex and Ibrance. 01/04/2023 C12 held because of low ANC. 01/11/2023 Got C12. Ibrance reduced to 75mg daily x 21 days. 02/09/2023 Got C13 Faslodex. 03/08/2023 Got C14 Faslodex. 04/05/2023 got C15 Faslodex. 05/03/2023 Got C16 05/23/23 CT C/A/P IMPRESSION: Diffuse sclerotic metastasis of the thoracic and lumbar vertebrae as well as the pelvic bones. 05/26/23 Bone scan FINDINGS: Multifocal focal increased activity identified in the calvarium, sternum,ribs, thoracic and lumbar spine, bilateral shoulders/humeri and bilateral femurs stable in distribution since prior exam. Degenerative activity in the left wrist. No obvious new lesion. 05/31/2023 C17 Faslodex. 07/05/2023 Got C18 Faslodex. 07/14/2023 Got Palliative RT to R humerus and R femur. 08/02/2023 Got C19 Faslodex and Ibrance. 08/30/2023 Got C20 Faslodex and Ibrance. 09/27/2023 Got C21, 10/25/2023 Got C22. Feels well. c/o low back pain. Treated for UTI. 11/22/2023: Got cycle 23 Ibrance/Faslodex. Delayed d/t grade 3 neutropenia. 01/03/2024 Got cycle 24. 01/31/2024 Got C25 faslodex 02/28/2024 Got C26, 04/26/2024 Got C28 Faslodex and Ibrance. 05/24/2024 Got C29 Faslodex and Ibrance 06/28/2024 Got C30 Faslodex and Ibrance. 07/26/2024 Got for C31 Faslodex and Ibrance. 08/23/2024 Got C32 Faslodex and ibrance, 09/20/2024 C33 Faslodex/Ibrance 10/25/24: C 34 Faslodex/Ibrance (delayed by 1 week d/t neutropenia) 11/22/2024 C35 Faslodex and Ibrance. 12/20/2024 Got C36, 01/08/2025 PET/CT scan showed New hypermetabolic lesions in the sacrum and pelvicbones. 01/17/2025 Got C37 Faslodex and Ibrance and referred for palliative radiation therapy to the pelvis and sacrum. 02/12/2025: Completed palliative radiation consisting of 2000 cGy delivered in 5 fractions to the sacrum and right iliac bone as well as the right acetabulum. 03/14/2025 Comes for C39 after missing C38. therapy put on hold. 03/21/2025 Ibrance and Faslodex was discontinued. 04/04/2025, [facility] Report which showed ESR1 negative, TMB 10. Started high dose Tamoxifen 100mg PO daily. 05/30/2025 On Tamoxifen. Comes for follow up. Feels well, has a cold, has pain in the R scapular. [facility] Medical History Breast cancer metastasized to bone Pain of right humerus Abdominal cramping Cough Mental status alteration Encounter for education Wears glasses Marijuana use Thyroid disease Diabetes High cholesterol Non-smoker CPAP (continuous positive airway pressure) dependence Asthma History of echocardiogram History of stress test Hypertension Cardiology follow-up encounter Right kidney mass Left lower lobe pulmonary nodule Bone metastases Atherosclerotic heart disease of [place] coronary artery without angina pectoris TIA (transient ischemic attack) Coronary artery vasospasm Essential hypertension Elevated alkaline phosphatase level History of kidney stones Hx of cholecystitis Diabetes mellitus Hot flashes related to aromatase inhibitor therapy Malignant neoplasm of right breast, stage 2 Chest pain RBBB Vitamin D deficiency GERD (gastroesophageal reflux disease) Osteoarthritis Acute asthma exacerbation Nephrolithiasis Hypothyroidism HLD (hyperlipidemia) Depression Diabetes mellitus, type II Morbid obesity with BMI of 40.0-44.9, adult Sleep apnea Acquired absence of bilateral breasts and nipples Personal history of breast cancer Surgical History Hx of appendectomy Hx of right mastectomy History of bilateral mastectomy History of left heart catheterization (LHC) (~07/23/11) History of cholecystectomy History of hysterectomy Family History Father Myocardial infarction Sudden cardiac , Onset Age: 57 Brother Myocardial infarction CAD (coronary artery disease) Sister Myocardial infarction CAD (coronary artery disease) Uterine cancer Mother Ovarian cancer Sister Cancer Social History Smoking Status: Never smoker alcohol intake: never substance use type: does not use caffeine: Yes Type: tea Number of servings: 6 Intake Vital Signs 05/02/25 10:44 05/30/25 14:21 Height 5 ft 6 in 5 ft 6 in Weight: 102.228 kg 103.419 kg BMI 36.3 36.8 BP 131/70 H 132/61 H Blood Pressure Location Lt brachial Lt brachial Position Sitting Sitting Respiration 18 16 Pulse 68 62 Pulse Source Monitor Monitor Temp 98.2 F 98.2 F Temperature Source Temporal Artery Temporal Artery Pulse Oximetry (%) 93 97 Oxygen Delivery Method room air room air Intake Medical Scheduler Required: No Accompanied by: Granddaughter Is patient in pain?: Yes (across lower adomen) Pain scale (1-10): 3 Allergies Yqgjheu-KXT-AuZ Reductase Inhibitor (Omhozoi-Siv-Acq Reductase Inhibitor) Adverse Reaction (Intermediate, Verified 05/30/25 14:25) elevated liver enzymes Medications ?Medication ?Instructions ?Recorded ?Confirmed ?Type losartan 100 mg tablet 100 mg PO DAILY 07/02/13 History metformin 1,000 mg tablet 1,000 mg PO BIDCM 07/02/13 0 05/30/25 History ekqhhnnk-ngs-mwmoo acid 0.4 1 ea PO QHS 07/02/1305/30 History mg-lycopene 300 mcg-lutein 250 mcg tablet albuterol sulfate 90 mcg/actuation 2 puff inhalation Q 4H PRN PRN 07/09/15 05/30/25 History aerosol inhaler Shortness Of Breath atorvastatin 80 mg tablet 80 mg PO QHS 07/09/15 History ergocalciferol (vitamin D2) 1,250 50,000 unit PO SUWE 07/09/15 05/30/25 History mcg (50,000 unit) capsule metoprolol succinate 25 mg 12.5 mg PO DAILY 07/09/15 0 05/30/25 History tablet,extended release 24 hr zolpidem 5 mg tablet 10 mg PO QHS PRN PRN Sleep 0 12/07/16 05/30/25 History albuterol sulfate 0.63 mg/3 mL 0.63 mg inhalation Q4H 07/03/19 05/30/25 History solution for nebulization cyclobenzaprine 10 mg tablet 10 mg PO BID PRN muscle s pasm #10 04/22/21 05/30/25 Rx tabs lidocaine-prilocaine 2.5 %-2.5 % 1 applic topical ONCE PRN port 05/23/21 05/30/25 Rx topical cream access 30 days #30 grams prochlorperazine maleate 5 mg 5 mg PO TID PRN nausea a nd 11/30/21 05/30/25 Rx tablet (Compazine) vomiting #30 tabs aspirin 325 mg tablet 325 mg PO DAILY 01/04/22 History lorazepam 0.5 mg tablet 0.5 mg PO QHS 04/19/2205/30 History meclizine 25 mg tablet (Dramamine 25 mg PO DAILY PRN d izziness 04/19/22 05/30/25 History (meclizine)) levothyroxine 150 mcg tablet 150 mcg PO MOTUWETHFRSA 0 04/26/22 05/30/25 History sertraline 100 mg tablet (Zoloft) 100 mg PO DAILY 05/3 10/0405/30/25 History methadone 5 mg tablet 7.5 mg PO Q12H 05/03/2305/13 History oxycodone 5 mg capsule 10 mg PO Q4H PRN Pain 05/30/25 History glipizide 2.5 mg tablet 2.5 mg PO DAILY 09/27/23 History insulin glargine 100 unit/mL (3 50 unit subcut QPM 05/30/25 History mL) subcutaneous pen (Basaglar KwikPen U-100 Insulin) metoclopramide HCl 5 mg tablet 5 mg PO Q8H PRN PRN mahog[place] sea and 11/05/24 05/30/25 Rx (Reglan) vomiting 30 days #90 tabs ondansetron HCl 4 mg tablet 4 mg PO Q8H PRN nausea and 02/12/25 05/30/25 Rx vomiting #14 tabs tamoxifen 20 mg tablet 100 mg (5 x 20 mg) PO QDAY 3 0 days 05/06/25 05/30/25 Rx #150 tabs Have you fallen in the past year?: No Central Venous Access Central Venous Access: Yes Port/PICC: Port (left chest) Exam Physical Exam Narrative ECOG 0-1 Const alert, oriented x3 and no apparent distress Constitutional Narrative: Drowsy General Appearance: comfortable HEENT normocephalic Face and Sinus: normal facial exam Mouth: oral and palatal mucosa normal Eyes conjunctivae normal Eyes Narrative: wears glasses General Eye: normal appearance of both eyes Neck no lymphadenopathy and no JVD Chest Chest Narrative: + Port L IC area. Chest: other Breast absent Resp normal respiratory effort and clear to auscultation bilaterally Cardio regular rate, regular rhythm, S1 normal heart sound and S2 normal heart sound GI normal to inspection, nondistended, normoactive bowel sounds no CVA tenderness Extremity no clubbing, cyanosis or edema Skin no rashes or lesions noted Neuro oriented x3 and moves all extremities Speech: speech normal Gait (Neuro): normal gait Psych mental status grossly normal Attitude: calm and engaged Coding Level of Care Code Off vis,est,level 4 Exam Problem Focused Diagnoses Metastasis from breast cancer C79.9; C50.919 Bone metastases C79.51 Assessment and Plan Assessment and Plan (1) Metastasis from breast cancer: Status: Chronic Comment: H/O R breast cancer. Her2 2+ by IHC, ER positive. Progression evident on bone scan 12/14/21. Began Ibrance/Faslodex on 01/11/22. Started cycle 4 in April 2022 with dose reduction of Ibrance to 100 Mg daily 3 weeks on 1 week off, further reduced to 75 mg for persistent neutropenia. Xgeva at 4 weeks interval was stopped in January 2023. Progressive disease s/p Radiation therapy to sacrum/iliac bones. Comes for follow up. [facility] report reviewed, ESR1 negative, TMB 10. On High Dose Tamoxifen. CBC and chemistry reviewed, OK for therapy. Plan: Continue Tamoxifen 100mg PO daily. RTC 4 weeks. (2) Bone metastases: Status: Chronic Comment: Received radiation to R femur metastases and R humerus from 06/11/2021 to 06/17/2021. Xgeva was discontinued after 01/11/2023. Clinically stable. Bone scan 11/13/2024 reviewed, ?new L iliac lesion. PET/CT reviewed, new hypermetabolic activity in the sacral/iliac bones. Gets pain in the lower back on and off. Completed RT to sacrum/iliac bones on 02/12/2025. Comes for follow up, has new pain in R scapular. Plan: Continue Tamoxifen 100mg daily. Obtain bone scan. Orders: Orders Cancer Antigen 125 Today C50.919 - Malignant neoplasm of unspecified site of unspecified female breast, C79.51 - Secondary malignant neoplasm of bone Plan Return to office in 4 weeks labs prior. Plan Details Follow Up: 4 Weeks Clinical Quality Measures Falls Risk Screening/Assistive Devices Have you fallen in the past year?: No 05/30/25 1506 <Electronically signed by Myron Wright> Date _ Myron Calvillo MD Cosigner Signature: Date (if applicable) CC: Dr. aRe Aguirre MD ~ [facility] Work Phone: Reason for referral (narrative)No reason for referral information availableWBrecksville [facility] Work Phone: Summary Purpose Family History Relationship Condition Age at Onset Recorded Date/T eber father Myocardial infarction Unknown Sudden cardiac 57 brother Myocardial infarction Unknown Coronary artery disease Unknown sister Myocardial infarction Unknown Malignant neoplasm of uterus Unknown mother Malignant neoplasm of ovary Unknown sister Malignant neoplasm Unknown Advance Directives Advance Directive Response Recorded Date/ Time Advance Directives Yes November 30 022 11:08am Living Will Yes November 30, 2021 11:08am Power of Milling Planer Operator Yes November 30 11:08am Advance Directive Response Recorded Date/ Time Advance Directives Yes January 11, 2022 3:13pm Living Will Yes January 11, 2022 3: 13pm Power of Milling Planer Operator Yes January 11, 2022 3:13pm Advance Directive Response Recorded Date/ Time Advance Directives on File No Augus t 2021 4:17pm Name of Medical Power of Milling Planer Operator Aric Schuler April 26, 2022 4:17pm Advance Directives Yes April 26, 2022 4:17pm Living Will Yes April 26 4:17pm Power of Milling Planer Operator Yes April 26, 022 4:17pm Advance Directive Response Recorded Date/ Time Advance Directives on File No Decem 2021 10:56am Name of Medical Power of Milling Planer Operator Aric Sparr August 31, 2022 10:56am Advance Directives Yes August 10:56am Living Will Yes August 31, 022 10:56am Power of Milling Planer Operator Yes August 31, 2022 10:56am Advance Directive Response Recorded Date/ Time Advance Directives on File No Lis page 2022 1:05pm Name of Medical Power of Milling Planer Operator Aric Sparr November 02, 2022 1:05pm Advance Directives Yes October 1:05pm Living Will Yes November 02, 2 023 1:05pm Power of Milling Planer Operator Yes November 02, 2022 1:05pm Advance Directive Response Recorded Date/ Time Advance Directives on File No April 05, 2023 3:34pm Name of Medical Power of Milling Planer Operator Aric Sparr April 05, 2023 3:34pm Advance Directives Yes April 05 3:34pm Living Will Yes April 05, 2023 3:34pm Power of Milling Planer Operator Yes April 05 3:34pm Advance Directive Response Recorded Date/ Time Advance Directives on File No November 29, 2023 3:00pm Name of Medical Power of Milling Planer Operator Aric Sparr November 29, 2023 3:00pm Advance Directives Yes November 28, 2 024 3:00pm Living Will Yes November 29, 2023 3:00pm Power of Milling Planer Operator Yes November 28 3:00pm Advance Directive Response Recorded Date/ Time Living Will Yes May 24, 2024 3:15pm Power of Milling Planer Operator Yes May 3:15pm Advance Directives on File No Sarimykel adamsy 2024 12:58pm Living Will Yes October 18 12:58pm Power of Milling Planer Operator Yes October 18, 2024 12:58pm Name of Medical Power of Milling Planer Operator Aric Sparr October 18, 2024 12:58pm Advance Directives Yes October 18, 2024 12:58pm Living Will Yes November 05, 2 025 9:10pm Power of Milling Planer Operator Yes November 05, 2024 9:10pm Name of Medical Power of Milling Planer Operator ARIC SPARR, PAPO SPARR, HADLEY SPARR November 05, 2024 9:10pm Advance Directive Response Recorded Date/ Time Living Will Yes May 24, 2024 3:15pm Power of Milling Planer Operator Yes May 3:15pm Advance Directives on File No November 22, 2024 3:43pm Living Will Yes November 22, 2024 3:43pm Power of Milling Planer Operator Yes November 22 3:43pm Name of Medical Power of Milling Planer Operator Aric Sparr November 22, 2024 3:43pm Advance Directives Yes November 22 025 3:43pm Living Will Yes November 05 025 9:10pm Power of Milling Planer Operator Yes November 05, 2024 9:10pm Name of Medical Power of Milling Planer Operator ARIC SPARR, PAPO SPARR, HADLEY SPARR November 05, 2024 9:10pm Advance Directive Response Recorded Date/ Time Advance Directives on File No January 172024 2:51pm Living Will Yes January 17, 2025 2: 51pm Do you have a Healthcare Pow er of Milling Planer Operator? Yes January 17, 2025 2:51pm Name of Medical Power of Milling Planer Operator Aric Sparr January 17, 2025 2:51pm Advance Directives Yes January 17, 2025 2:51pm Living Will Yes November 05 9:10pm Do you have a Healthcare Pow er of Milling Planer Operator? Yes November 05, 2024 9:10pm Name of Medical Power of Milling Planer Operator ARIC SPARR, PAPO SPARR, HADLEY SPARR November 05, 2024 9:10pm Advance Directive Response Recorded Date/ Time Advance Directives on File No February 14, 2025 12:36pm Living Will Yes February 14, 2025 1 2:36pm Do you have a Healthcare Power of Milling Planer Operator? Yes February 14, 2025 12:36pm Name of Medical Power of Milling Planer Operator Aric Sparr February 14, 2025 12:36pm Advance Directives Yes February 14 12:36pm Chief Complaint and Reason for Visit Chief Complaint [facility] HERCEPTIN 3[facility]S HERCEPTIN [facility] HERCEPTIN BREAST CANCER ACUTE-PE 3[facility]S HERCEPTIN [facility] HERCEPTIN PLEITEZ HIGH RISK MEDS METASTATIC BREAST CANCER Reason for Visit Encounter for monocl onal antibody treatment for malignancy Bone metastases Metastasis from breast cancer Skin nodule Encounter for monoclonal antibody treatment for malignancy Bone metastases Metastasis from breast cancer Skin nodule Encounter for monoclonal antibody treatment for malignancy Right-sided chest pain Bone metastases Metastasis from breast cancer Skin nodule Bilateral pulmonary embolism Bilateral pulmonary embolism Encounter for monoclonal antibody treatment for malignancy Bone metastases Metastasis from breast cancer Acute UTI Bilateral pulmonary embolism Encounter for monoclonal antibody treatment for malignancy Bone metastases Metastasis from breast cancer Chief Complaint 3[facility]KS [facility]S HERCEPTIN 3WKS LABS HERCEPTIN BREAST CANCER ACUTE-PE 3WKS LABS HERCEPTIN 3WKS LABS HERCEPTIN HIGH RISK MEDS METASTATIC BREAST CANCER 3WKS LABS HERCEPTIN 3WKS LABS FASLODEX/XGEVA PLEITEZ EORDER Reason for Visit Encounter for monocl onal antibody treatment for malignancy Bone metastases Metastasis from breast cancer Skin nodule Encounter for monoclonal antibody treatment for malignancy Right-sided chest pain Bone metastases Metastasis from breast cancer Skin nodule Bilateral pulmonary embolism Bilateral pulmonary embolism Encounter for monoclonal antibody treatment for malignancy Bone metastases Metastasis from breast cancer Acute UTI Bilateral pulmonary embolism Encounter for monoclonal antibody treatment for malignancy Bone metastases Metastasis from breast cancer Acute UTI Bilateral pulmonary embolism Encounter for monoclonal antibody treatment for malignancy Bone metastases Metastasis from breast cancer Bilateral pulmonary embolism Bone metastases Metastasis from breast cancer Chief Complaint 3[facility]KS [facility]S FASLODEX/X GEVA EORDER 1WK LABS INJECTION 2WKS LABS INJECTIONS 1WK LABS FASLODEX/XGEVA INJ 2[facility] TOX CHECK 2WKS LABS FASLODEX/XGEVA 1WK LABS FASLODEX/XGEVA 4WKS LABS FASLODEX/XGEVA KINETIC CHANGES 1WK LABS FASLODEX/XGEVA 2WKS LABS FASLODEX/XGEVA Reason for Visit Bilateral pulmonary embolism Bone metastases Metastasis from breast cancer Bilateral pulmonary embolism Bone metastases Metastasis from breast cancer Hypocalcemia Bilateral pulmonary embolism Bone metastases Metastasis from breast cancer Hypocalcemia Bone metastases Metastasis from breast cancer Bone metastases Metastasis from breast cancer Bone metastases Metastasis from breast cancer Bone metastases Metastasis from breast cancer Mental status alteration Bone metastases Metastasis from breast cancer Bone metastases Metastasis from breast cancer Chief Complaint 4[facility]S FASLODEX/X GEVA BREAST CA 1WKS LABS FASLODEX/XGEVA 4WKS LABS FASLODEX 4WKS LABS FASLODEX/XGEVA 4WKS LABS XGEVA 2WKS LABS FASLODEX/XGEVA BREAST CA NEW ONSET METAL STATUS Reason for Visit Dysuria Bone metastases Metastasis from breast cancer Cystitis Bone metastases Metastasis from breast cancer Bone metastases Metastasis from breast cancer Bone metastases Metastasis from breast cancer Confusion Bone metastases Metastasis from breast cancer Chief Complaint 4[facility] XGEVA BREAST CA NEW ONSET METAL STATUS 4WKS LABS FASLODEX/XGEVA 4WKS LABS FASLODEX 1WK LABS FASLODEX NEOPLASM RELATED PAIN HIGH RISK MED USE 4WKS LABS FASLODEX/XGEVA 2WKS LABS FASLODEX/XGEVA Reason for Visit Confusion Bone metastases Metastasis from breast cancer Bone metastases Metastasis from breast cancer Neutropenia Bone metastases Metastasis from breast cancer Bone metastases Metastasis from breast cancer Bone metastases Metastasis from breast cancer Chief Complaint 4[facility]KS [facility]S FASLODEX/X GEVA 4WKS LABS FASLODEX/XGEVA 4WKS LABS FASLODEX 4WKS LABS FASLODEX Secondary malignant neoplasm of bone Secondary malignant neoplasm of bone 4WKS LABS FASLODEX 2WKS LABS FASLODEX/XGEVA Reason for Visit Anemia Bone metastases Metastasis from breast cancer Bone metastases Metastasis from breast cancer Bone metastases Metastasis from breast cancer Anemia Cough Bone metastases Metastasis from breast cancer Abdominal cramping Bone metastases Metastasis from breast cancer Abdominal cramping Chief Complaint 4WKS LABS FASLODEX/X GEVA 4WKS LABS FASLODEX 4WKS LABS FASLODEX Secondary malignant neoplasm of bone Secondary malignant neoplasm of bone 4WKS LABS FASLODEX 4WKS LABS FASLODEX OSTEO DISCUSS PALLIATIVE XRT 2WKS LABS FASLODEX/XGEVA 1WK LABS FASLODEX Reason for Visit Bone metastases Metastasis from breast cancer Bone metastases Metastasis from breast cancer Anemia Cough Bone metastases Metastasis from breast cancer Abdominal cramping Bone metastases Metastasis from breast cancer Abdominal cramping Pain of right humerus Bone metastases Metastasis from breast cancer Bone metastases Pain of right humerus Bone metastases Metastasis from breast cancer Chief Complaint 4WKS LABS FASLODEX/X GEVA 4WKS LABS FASLODEX 4WKS LABS FASLODEX Secondary malignant neoplasm of bone Secondary malignant neoplasm of bone 4WKS LABS FASLODEX 4WKS LABS FASLODEX OSTEO DISCUSS PALLIATIVE XRT 1WK LABS FASLODEX 2WKS LABS FASLODEX/XGEVA Reason for Visit Bone metastases Metastasis from breast cancer Bone metastases Metastasis from breast cancer Anemia Cough Bone metastases Metastasis from breast cancer Abdominal cramping Bone metastases Metastasis from breast cancer Abdominal cramping Pain of right humerus Bone metastases Metastasis from breast cancer Bone metastases Pain of right humerus Bone metastases Metastasis from breast cancer Chief Complaint 4WKS LABS FASLODEX 4WKS LABS FASLODEX 4WKS LABS FASLODEX/XGEVA 2WKS LABS FASLODEX 2WKS LABS FASLODEX/XGEVA Reason for Visit Pain of right humeru s Bone metastases Metastasis from breast cancer Pain of right humerus Bone metastases Metastasis from breast cancer Low back pain Pain of right humerus Bone metastases Metastasis from breast cancer Bone metastases Metastasis from breast cancer Chief Complaint Admit Date [facility] FASLODEX July 26, 2024 12:36pm 4WKS LABS FASLODEX August 23, 2024 8:35am 4WKS LABS FASLODEX September 20, 2024 12 :45pm 4WKS LABS FASLODEX October 18, 2024 1 1:30am 1 WK - LABS October 25, 2024 12:01pm 2WKS LABS FASLODEX/XGEVA October 25, 2024 12:30pm HYPERGLYCEMIA November 05, 2024 6:11pm [id number] November 13, 2024 8:39 am Reason for Visit Admit Date Bone metastases July 26, 2024 12:36pm Metastasis from breast cancer July 132023 12:36pm Bone metastases August 23, 2024 8:35am Metastasis from breast cancer August 122023 8:35am Bone metastases September 20, 2024 12 :45pm Metastasis from breast cancer September 12:45pm Bone metastases October 18, 2024 1 1:30am Metastasis from breast cancer October 182024 11:30am Bone metastases October 25, 2024 12:01pm Metastasis from breast cancer October 132024 12:01pm Chief Complaint Admit Date 4[facility] FASLODEX July 26, 2024 12:36pm 4WKS LABS FASLODEX August 23, 2024 8:35am 4WKS LABS FASLODEX September 20, 2024 12 :45pm 4WKS LABS FASLODEX October 18, 2024 1 1:30am 1 WK - LABS October 25, 2024 12:01pm HYPERGLYCEMIA November 05, 2024 6:11pm [id number] November 13, 2024 8:39 am 4WKS LABS FASLODEX November 22, 2024 1:2 8pm 2WKS LABS FASLODEX/XGEVA November 22 2:00pm Reason for Visit Admit Date Bone metastases July 26, 2024 12:36pm Metastasis from breast cancer July 132023 12:36pm Bone metastases August 23, 2024 8:35am Metastasis from breast cancer August 122023 8:35am Bone metastases September 20, 2024 12 :45pm Metastasis from breast cancer September 12:45pm Bone metastases October 18, 2024 1 1:30am Metastasis from breast cancer October 182024 11:30am Bone metastases October 25, 2024 12:01pm Metastasis from breast cancer October 132024 12:01pm Bone metastases November 22, 2024 1:2 8pm Metastasis from breast cancer November 1:28pm Chief Complaint Admit Date 4[facility]S FASLODEX October 18, 2024 1 1:30am 1 WK - LABS October 25, 2024 12:01pm HYPERGLYCEMIA November 05, 2024 6:11pm [id number] November 13, 2024 8:39 am 4WKS LABS FASLODEX November 22, 2024 1:2 8pm 4WKS LABS FASLODEX December 20, 2024 8:4 6am 2WKS LABS FASLODEX/XGEVA January 17, 2025 1 2:15pm 4WKS LABS FASLODEX January 17, 2025 1:39pm CONSULT - BONE METS January 24, 2025 12:44 pm Reason for Visit Admit Date Bone metastases October 18, 2024 1 1:30am Metastasis from breast cancer October 182024 11:30am Bone metastases October 25, 2024 12:01pm Metastasis from breast cancer October 132024 12:01pm Bone metastases November 22, 2024 1:2 8pm Metastasis from breast cancer November 1:28pm Bone metastases December 20, 2024 8:4 6am Metastasis from breast cancer December 8:46am Bone metastases January 17, 2025 1:39pm Metastasis from breast cancer January 17, 2 025 1:39pm Chief Complaint Admit Date 4WKS LABS FASLODEX October 18, 2024 1 1:30am 1 WK - LABS October 25, 2024 12:01pm HYPERGLYCEMIA November 05, 2024 6:11pm [id number] November 13, 2024 8:39 am 4WKS LABS FASLODEX November 22, 2024 1:2 8pm 4WKS LABS FASLODEX December 20, 2024 8:4 6am 4WKS LABS FASLODEX January 17, 2025 1:39pm CONSULT - BONE METS January 24, 2025 12:44 pm Amb Documentation February 11, 2025 9:08a m OTV February 12, 2025 1:29p m 4 WEEK LABS TX February 14, 2025 9:43a m . February 14, 2025 9:45a m Reason for Visit Admit Date Bone metastases October 18, 2024 1 1:30am Metastasis from breast cancer October 182024 11:30am Bone metastases October 25, 2024 12:01pm Metastasis from breast cancer October 132024 12:01pm Bone metastases November 22, 2024 1:2 8pm Metastasis from breast cancer November 1:28pm Bone metastases December 20, 2024 8:4 6am Metastasis from breast cancer December 8:46am Bone metastases January 17, 2025 1:39pm Metastasis from breast cancer January 17, 025 1:39pm Bone metastases January 24, 2025 12:44 pm Bone metastases February 12, 2025 1:29p m Chief Complaint Admit Date 4WKS LABS FASLODEX October 18, 2024 1 1:30am 1 WK - LABS October 25, 2024 12:01pm HYPERGLYCEMIA November 05, 2024 6:11pm [id number] November 13, 2024 8:39 am 4WKS LABS FASLODEX November 22, 2024 1:2 8pm 4WKS LABS FASLODEX December 20, 2024 8:4 6am 4WKS LABS FASLODEX January 17, 2025 1:39pm CONSULT - BONE METS January 24, 2025 12:44 pm Amb Documentation February 11, 2025 9:08a m OTV February 12, 2025 1:29p m . February 12, 2025 2:00p m Chief Complaint Admit Date 4[facility]KS [facility]S FASLODEX November 22, 2024 1:2 8pm 4WKS LABS FASLODEX December 20, 2024 8:4 6am 4WKS LABS FASLODEX January 17, 2025 1:39pm CONSULT - BONE METS January 24, 2025 12:44 pm Amb Documentation February 11, 2025 9:08a m OTV February 12, 2025 1:29p m 4 WEEK LABS TX February 14, 2025 9:43a m 4WKS LABS FASLODEX March 14, 2025 9:37a m 1 MONTH F/U POST RT March 14, 2025 9:38a m . March 14, 2025 9:45a m Reason for Visit Admit Date Bone metastases November 22, 2024 1:2 8pm Metastasis from breast cancer November 1:28pm Bone metastases December 20, 2024 8:4 6am Metastasis from breast cancer December 8:46am Bone metastases January 17, 2025 1:39pm Metastasis from breast cancer January 17, 2 025 1:39pm Bone metastases January 24, 2025 12:44 pm Bone metastases February 12, 2025 1:29p m Bone metastases February 14, 2025 9:43a m Metastasis from breast cancer February 14, 2025 9:43am Reason for Visit Admit Date Bone metastases November 22, 2024 1:2 8pm Metastasis from breast cancer November 1:28pm Bone metastases December 20, 2024 8:4 6am Metastasis from breast cancer December 8:46am Bone metastases January 17, 2025 1:39pm Metastasis from breast cancer January 17, 2 025 1:39pm Bone metastases January 24, 2025 12:44 pm Bone metastases February 12, 2025 1:29p m Bone metastases February 14, 2025 9:43a m Metastasis from breast cancer February 14, 2025 9:43am Bone metastases March 14, 2025 9:37a m Metastasis from breast cancer March 14, 2025 9:37am Chief Complaint Admit Date 4WKS LABS FASLODEX November 22, 2024 1:2 8pm 4WKS LABS FASLODEX December 20, 2024 8:4 6am 4WKS LABS FASLODEX January 17, 2025 1:39pm CONSULT - BONE METS January 24, 2025 12:44 pm Amb Documentation February 11, 2025 9:08a m OTV February 12, 2025 1:29p m 4 WEEK LABS TX February 14, 2025 9:43a m 4WKS LABS FASLODEX March 14, 2025 9:37a m 1 MONTH F/U POST RT March 14, 2025 9:38a m 1WK NO LABS FASLODEX March 21, 2025 1:1 4pm Reason for Visit Admit Date Bone metastases November 22, 2024 1:2 8pm Metastasis from breast cancer November 1:28pm Bone metastases December 20, 2024 8:4 6am Metastasis from breast cancer December 8:46am Bone metastases January 17, 2025 1:39pm Metastasis from breast cancer January 17, 2 025 1:39pm Bone metastases January 24, 2025 12:44 pm Bone metastases February 12, 2025 1:29p m Bone metastases February 14, 2025 9:43a m Metastasis from breast cancer February 14, 2025 9:43am Bone metastases March 14, 2025 9:37a m Metastasis from breast cancer March 14, 2025 9:37am Bone metastases March 14, 2025 9:38a m Bone metastases March 21, 2025 1:14 pm Metastasis from breast cancer March 21, 2025 1:14pm Chief Complaint Admit Date 4WKS LABS FASLODEX December 20, 2024 8:4 6am 4WKS LABS FASLODEX January 17, 2025 1:39pm CONSULT - BONE METS January 24, 2025 12:44 pm Amb Documentation February 11, 2025 9:08a m OTV February 12, 2025 1:29p m 4 WEEK LABS TX February 14, 2025 9:43a m 4WKS LABS FASLODEX March 14, 2025 9:37a m 1 MONTH F/U POST RT March 14, 2025 9:38a m 1WK NO LABS FASLODEX March 21, 2025 1:1 4pm . March 21, 2025 3:30 pm 2 WEEKS NO LABS [facility] Ju ly 2024 2:27pm Reason for Visit Admit Date Bone metastases December 20, 2024 8:4 6am Metastasis from breast cancer December 8:46am Bone metastases January 17, 2025 1:39pm Metastasis from breast cancer January 17, 2 025 1:39pm Bone metastases January 24, 2025 12:44 pm Bone metastases February 12, 2025 1:29p m Bone metastases February 14, 2025 9:43a m Metastasis from breast cancer February 14, 2025 9:43am Bone metastases March 14, 2025 9:37a m Metastasis from breast cancer March 14, 2025 9:37am Bone metastases March 14, 2025 9:38a m Bone metastases March 21, 2025 1:14 pm Metastasis from breast cancer March 21, 2025 1:14pm Bone metastases Mirna 24th, 2025 2:27 pm Metastasis from breast cancer April 04, 2025 2:27pm Chief Complaint Admit Date 4WKS LABS FASLODEX January 17, 2025 1:39pm CONSULT - BONE METS January 24, 2025 12:44 pm Amb Documentation February 11, 2025 9:08a m OTV February 12, 2025 1:29p m 4 WEEK LABS TX February 14, 2025 9:43a m 4WKS LABS FASLODEX March 14, 2025 9:37a m 1 MONTH F/U POST RT March 14, 2025 9:38a m 1WK NO LABS FASLODEX March 21, 2025 1:1 4pm 2 WEEKS NO LABS [facility] Ju ly 2024 2:27pm 4WKS LABS May 02, 2025 9: 49am . May 02, 2025 10 :00am Reason for Visit Admit Date Bone metastases January 17, 2025 1:39pm Metastasis from breast cancer January 17, 025 1:39pm Bone metastases January 24, 2025 12:44 pm Bone metastases February 12, 2025 1:29p m Bone metastases February 14, 2025 9:43a m Metastasis from breast cancer February 14, 2025 9:43am Bone metastases March 14, 2025 9:37a m Metastasis from breast cancer March 14, 2025 9:37am Bone metastases March 14, 2025 9:38a m Bone metastases March 21, 2025 1:14 pm Metastasis from breast cancer March 21, 2025 1:14pm Bone metastases April 04, 2025 2:27 pm Metastasis from breast cancer April 04, 2025 2:27pm Bone metastases May 02, 2025 9: 49am Metastasis from breast cancer April 9:49am Chief Complaint Admit Date Amb Documentation February 11, 2025 9:08a m OTV February 12, 2025 1:29p m 4 WEEK LABS TX February 14, 2025 9:43a m 4WKS LABS FASLODEX March 14, 2025 9:37a m 1 MONTH F/U POST RT March 14, 2025 9:38a m 1WK NO LABS FASLODEX March 21, 2025 1:1 4pm 2 WEEKS NO LABS [facility] Ju ly 2024 2:27pm 4WKS LABS May 02, 2025 9: 49am . May 30, 2025 1:30pm 4WKS LABS May 30, 2025 1:34pm Reason for Visit Admit Date Bone metastases February 12, 2025 1:29p m Bone metastases February 14, 2025 9:43a m Metastasis from breast cancer February 14, 2025 9:43am Bone metastases March 14, 2025 9:37a m Metastasis from breast cancer March 14, 2025 9:37am Bone metastases March 14, 2025 9:38a m Bone metastases March 21, 2025 1:14 pm Metastasis from breast cancer March 21, 2025 1:14pm Bone metastases April 04, 2025 2:27 pm Metastasis from breast cancer April 04, 2025 2:27pm Bone metastases May 02, 2025 9: 49am Metastasis from breast cancer April 9:49am Bone metastases May 30, 2025 1:34pm Metastasis from breast cancer May 30, 2025 1:34pm Additional Source Comments INFORMATION SOURCE (unrecogn ized section and content) DATE CREATED AUTHOR 05/22/2019 [employer] DATE CREATED AUTHOR AUTHOR'S ORGANIZ ATION 11/04/2021 [facility] DATE CREATED AUTHOR AUTHOR'S ORGANIZ ATION 02/23/2023 [facility] DATE CREATED AUTHOR AUTHOR'S ORGANIZ ATION 06/02/2025 [facility] Goals (unrecognized section and content) Goals may be documented in a n alternate sectionGoals may be documented in an alternate sectionGoals may be documented in an alternate sectionGoals may be documented in an alternate sectionGoals may be documented in an alternate sectionGoals may be documented in an alternate sectionGoals may be documented in an alternate sectionGoals may be documented in an alternate sectionGoals may be documented in an alternate sectionGoals may be documented in an alternate sectionGoals may be documented in an alternate sectionGoals may be documented in an alternate sectionGoals may be documented in an alternate sectionGoals may be documented in an alternate sectionGoals may be documented in an alternate sectionGoals may be documented in an alternate sectionGoals may be documented in an alternate sectionGoals may be documented in an alternate sectionGoals may be documented in an alternate sectionGoals may be documented in an alternate sectionGoals may be documented in an alternate section Care Teams (unrecognized sec tion and content) Team Status: Active Member Role Status Dates Dr. Adolfo Aguirre MD Family Provider Active Dr. Adolfo Aguirre MD Primary Care Provider Activ e Team Status: Inactive Member Role Status Dates Dr. Adolfo Aguirre MD Primary Care Provider, Refe rring Provider Active Dr. Myron Calvillo MD Attending Provider Active Team Status: Active Member Role Status Dates Dr. Adolfo Aguirre MD Primary Care Provider Activ e Dr. Harrison Gomez MD Attending Provider Active Ngozi Padron IMPORT CUSTOMER SERVICE MANAGER-C Referring Provider Active Team Status: Active Member Role Status Dates Dr. Adolfo Aguirre MD Primary Care Provider Activ e Dr. Chelsea Anguiano DO Attending Provider Active Dr. Kang Pagan MD Referring Provider Active Team Status: Inactive Member Role Status Dates Dr. Adolfo Aguirre MD Primary Care Provider Activ e Dr. Myron Calvillo MD Attending Provider, Referring Pro vider Active Team Status: Inactive Member Role Status Dates Dr. Adolfo Aguirre MD Primary Care Provider Activ e Ngozi Padron , IMPORT CUSTOMER SERVICE MANAGER-C Attending Provider, Referring P rovider Active Dr. Myron Calvillo MD Other Provider Active Team Status: Inactive Member Role Status Dates Dr. Adolfo Aguirre MD Primary Care Provider, Refe rring Provider Active Sultana Finn IMPORT CUSTOMER SERVICE MANAGER, IMPORT CUSTOMER SERVICE MANAGER-C Attending Provider Active Team Status: Active Member Role Status Dates Dr. Adolfo Aguirre MD Primary Care Provider Activ e Sultanajody Finn IMPORT CUSTOMER SERVICE MANAGER, IMPORT CUSTOMER SERVICE MANAGER-C Attending Provider, Referring Provider Active Team Status: Inactive Member Role Status Dates Dr. Adolfo Aguirre MD Primary Care Provider Activ e Sultana Aakash IMPORT CUSTOMER SERVICE MANAGER, IMPORT CUSTOMER SERVICE MANAGER-C Attending Provider, Referring Provider Active Team Status: Inactive Member Role Status Dates Dr. Adolfo Aguirre MD Primary Care Provider, Refe rring Provider Active Dr. Myron Calvillo MD Active Sultanajody Finn IMPORT CUSTOMER SERVICE MANAGER, IMPORT CUSTOMER SERVICE MANAGER-C Attending Provider Active Team Status: Inactive Member Role Status Dates Dr. Adolfo Aguirre MD Primary Care Provider, Refe rring Provider Active Dr. Chelsea Anguiano DO Attending Provider Active Team Status: Active Member Role Status Dates Dr. Adolfo Aguirre MD Primary Care Provider, Attending Provider, Referring Provider Active Team Status: Inactive Member Role Status Dates Dr. Adolfo Aguirre MD Primary Care Provider, Attending Provider, Referring Provider Active Team Status: Inactive Member Role Status Dates Dr. Adolfo Aguirre MD Primary Care Provider, Atte nding Provider Active Team Status: Active Member Role Status Dates Dr. Rae Aguirre MD Primary Care Provider Acti ve Team Status: Inactive Member Role Status Dates Dr. Rea Aguirre MD Primary Care Provider Acti ve Start: July 26, 2024 End: July 26, 2024 Dr. Rae Aguirre MD Referring Provider Active Start: July 26, 2024 End: July 26, 2024 Dr. Myron Calvillo MD Attending Provider Active S tart: July 26, 2024 End: July 26, 2024 Team Status: Inactive Member Role Status Dates Dr. Rae Aguirre MD Primary Care Provider Acti ve Start: August 23, 2024 End: August 23, 2024 Dr. Rae Aguirre MD Referring Provider Active Start: August 23, 2024 End: August 23, 2024 Dr. Myron Calvillo MD Attending Provider Active S tart: August 23, 2024 End: August 23, 2024 Team Status: Inactive Member Role Status Dates Dr. Rae Aguirre MD Primary Care Provider Acti ve Start: September 20, 2024 End: September 20, 2024 Dr. Rae Aguirre MD Referring Provider Active Start: September 20, 2024 End: September 20, 2024 Dr. Myron Calvillo MD Attending Provider Active S tart: September 20, 2024 End: September 20, 2024 Team Status: Inactive Member Role Status Dates Dr. Rae Aguirre MD Primary Care Provider Acti ve Start: October 18, 2024 End: October 18, 2024 Dr. Rae Aguirre MD Referring Provider Active Start: October 18, 2024 End: October 18, 2024 Dr. Kang Pagan MD Attending Provider Active Start: October 18, 2024 End: October 18, 2024 Team Status: Inactive Member Role Status Dates Dr. Rae Aguirre MD Primary Care Provider Acti ve Start: October 25, 2024 End: October 25, 2024 Dr. Rae Aguirre MD Referring Provider Active Start: October 25, 2024 End: October 25, 2024 Sultana Finn IMPORT CUSTOMER SERVICE MANAGER, IMPORT CUSTOMER SERVICE MANAGER-C Attending Provider Active Start: October 25, 2024 End: October 25, 2024 Team Status: Active Member Role Status Dates Dr. Rae Aguirre MD Primary Care Provider Acti ve Start: October 25, 2024 Dr. Chelsea Anguiano DO Attending Provider Active Start: October 25, 2024 Dr. Kang Pagan MD Referring Provider Active Start: October 25, 2024 Team Status: Inactive Member Role Status Dates Dr. Rae Aguirre MD Primary Care Provider Acti ve Start: November 05, 2024 End: November 05, 2024 Dr. Trever Terry DO Attending Provider Active Start: November 05, 2024 End: November 05, 2024 Dr. Trever Terry DO Emergency Provider Active Start: November 05, 2024 End: November 05, 2024 Team Status: Inactive Member Role Status Dates Dr. Rae Aguirre MD Primary Care Provider Acti ve Start: November 09, 2024 End: November 09, 2024 Dr. Rae Aguirre MD Attending Provider Active Start: November 09, 2024 End: November 09, 2024 Dr. Rae Aguirre MD Referring Provider Active Start: November 09, 2024 End: November 09, 2024 Team Status: Active Member Role Status Dates Dr. Rae Aguirre MD Primary Care Provider Acti ve Start: November 13, 2024 Sultana Aakash IMPORT CUSTOMER SERVICE MANAGER, IMPORT CUSTOMER SERVICE MANAGER-C Attending Provider Active Start: November 13, 2024 Sultana Aakash IMPORT CUSTOMER SERVICE MANAGER, IMPORT CUSTOMER SERVICE MANAGER-C Referring Provider Active Start: November 13, 2024 Team Status: Active Member Role Status Dates Dr. Rae Aguirre MD Primary Care Provider Acti ve Start: November 13, 2024 Dr. Rae Aguirre MD Attending Provider Active Start: November 13, 2024 Dr. Rae Aguirre MD Referring Provider Active Start: November 13, 2024 Team Status: Inactive Member Role Status Dates Dr. Rae Aguirre MD Primary Care Provider Acti ve Start: November 13, 2024 End: November 13, 2024 Sultana Aakash IMPORT CUSTOMER SERVICE MANAGER, IMPORT CUSTOMER SERVICE MANAGER-C Attending Provider Active Start: November 13, 2024 End: November 13, 2024 Sultana Aakash IMPORT CUSTOMER SERVICE MANAGER, IMPORT CUSTOMER SERVICE MANAGER-C Referring Provider Active Start: November 13, 2024 End: November 13, 2024 Team Status: Inactive Member Role Status Dates Dr. Rae Aguirre MD Primary Care Provider Acti ve Start: November 22, 2024 End: November 22, 2024 Dr. Rae Aguirre MD Referring Provider Active Start: November 22, 2024 End: November 22, 2024 Sultana Finn IMPORT CUSTOMER SERVICE MANAGER, IMPORT CUSTOMER SERVICE MANAGER-C Attending Provider Active Start: November 22, 2024 End: November 22, 2024 Team Status: Active Member Role Status Dates Dr. Rae Aguirre MD Primary Care Provider Acti ve Start: November 22, 2024 Dr. Chelsea Anguiano DO Attending Provider Active Start: November 22, 2024 Dr. Kang Pagan MD Referring Provider Active Start: November 22, 2024 Team Status: Inactive Member Role Status Dates Dr. Rae Aguirre MD Primary Care Provider Acti ve Start: November 13, 2024 End: November 13, 2024 Dr. Rae Aguirre MD Attending Provider Active Start: November 13, 2024 End: November 13, 2024 Dr. Rae Aguirre MD Referring Provider Active Start: November 13, 2024 End: November 13, 2024 Team Status: Inactive Member Role Status Dates Dr. Rae Aguirre MD Primary Care Provider Acti ve Start: December 20, 2024 End: December 20, 2024 Dr. Rae Aguirre MD Referring Provider Active Start: December 20, 2024 End: December 20, 2024 Dr. Myron Calvillo MD Attending Provider Active S tart: December 20, 2024 End: December 20, 2024 Team Status: Active Member Role Status Dates Dr. Rae Aguirre MD Primary Care Provider Acti ve Start: January 17, 2025 Dr. Chelsea Anguiano DO Attending Provider Active Start: January 17, 2025 Dr. Kang Pagan MD Referring Provider Active Start: January 17, 2025 Team Status: Inactive Member Role Status Dates Dr. Rae Aguirre MD Primary Care Provider Acti ve Start: January 17, 2025 End: January 17, 2025 Dr. Rae Aguirre MD Referring Provider Active Start: January 17, 2025 End: January 17, 2025 Dr. Myron Calvillo MD Attending Provider Active S tart: January 17, 2025 End: January 17, 2025 Team Status: Inactive Member Role Status Dates Dr. Rae Aguirre MD Primary Care Provider Acti ve Start: January 24, 2025 End: January 24, 2025 Dr. Rae Aguirre MD Referring Provider Active Start: January 24, 2025 End: January 24, 2025 Dr. Chelsea Anguiano DO Attending Provider Active Start: January 24, 2025 End: January 24, 2025 Team Status: Active Member Role Status Dates Dr. Rae Aguirre MD Primary Care Provider Acti ve Start: January 29, 2025 Dr. Chelsea Anguiano DO Attending Provider Active Start: January 29, 2025 Team Status: Active Member Role Status Dates Dr. Rae Aguirre MD Primary Care Provider Acti ve Start: February 05, 2025 Dr. Chelsea Anguiano DO Attending Provider Active Start: February 05, 2025 Team Status: Active Member Role Status Dates Dr. Rae Aguirre MD Primary Care Provider Acti ve Start: February 06, 2025 Dr. Chelsea Anguiano DO Attending Provider Active Start: February 06, 2025 Team Status: Active Member Role Status Dates Dr. Rae Aguirre MD Primary Care Provider Acti ve Start: February 11, 2025 Dr. Chelsea Anguiano DO Attending Provider Active Start: February 11, 2025 Team Status: Inactive Member Role Status Dates Dr. Rae Aguirre MD Primary Care Provider Acti ve Start: February 12, 2025 End: February 12, 2025 Dr. Rae Aguirre MD Referring Provider Active Start: February 12, 2025 End: February 12, 2025 Dr. Chelsea Anguiano DO Attending Provider Active Start: February 12, 2025 End: February 12, 2025 Team Status: Inactive Member Role Status Dates Dr. Rae Aguirre MD Primary Care Provider Acti ve Start: February 14, 2025 End: February 14, 2025 Dr. Rae Aguirre MD Referring Provider Active Start: February 14, 2025 End: February 14, 2025 Sultana Finn IMPORT CUSTOMER SERVICE MANAGER, IMPORT CUSTOMER SERVICE MANAGER-C Attending Provider Active Start: February 14, 2025 End: February 14, 2025 Team Status: Active Member Role Status Dates Dr. Rae Aguirre MD Primary Care Provider Acti ve Start: February 14, 2025 Dr. Chelsea Anguiano DO Attending Provider Active Start: February 14, 2025 Dr. Kang Pagan MD Referring Provider Active Start: February 14, 2025 Team Status: Active Member Role Status Dates Dr. Rae Aguirre MD Primary Care Provider Acti ve Start: February 12, 2025 Dr. Chelsea Anguiano DO Attending Provider Active Start: February 12, 2025 Dr. Kang Pagan MD Referring Provider Active Start: February 12, 2025 Team Status: Active Member Role/Relationship Status Dates Dr. Rae Aguirre MD Primary Care Provider Acti ve Team Status: Inactive Member Role/Relationship Status Dates Dr. Rae Aguirre MD Primary Care Provider Acti ve Start: November 22, 2024 End: November 22, 2024 Dr. Rae Aguirre MD Referring Provider Active Start: November 22, 2024 End: November 22, 2024 Sultana Finn IMPORT CUSTOMER SERVICE MANAGER, IMPORT CUSTOMER SERVICE MANAGER-C Attending Provider Active Start: November 22, 2024 End: November 22, 2024 Team Status: Inactive Member Role/Relationship Status Dates Dr. Rae Aguirre MD Primary Care Provider Acti ve Start: December 20, 2024 End: December 20, 2024 Dr. Rae Aguirre MD Referring Provider Active Start: December 20, 2024 End: December 20, 2024 Dr. Myron Calvillo MD Attending Provider Active S tart: December 20, 2024 End: December 20, 2024 Team Status: Inactive Member Role/Relationship Status Dates Dr. Rae Aguirre MD Primary Care Provider Acti ve Start: January 17, 2025 End: January 17, 2025 Dr. Rae Aguirre MD Referring Provider Active Start: January 17, 2025 End: January 17, 2025 Dr. Myron Calvillo MD Attending Provider Active S tart: January 17, 2025 End: January 17, 2025 Team Status: Inactive Member Role/Relationship Status Dates Dr. Rae Aguirre MD Primary Care Provider Acti ve Start: January 24, 2025 End: January 24, 2025 Dr. Rae Aguirre MD Referring Provider Active Start: January 24, 2025 End: January 24, 2025 Dr. Chelsea Anguiano DO Attending Provider Active Start: January 24, 2025 End: January 24, 2025 Team Status: Active Member Role/Relationship Status Dates Dr. Rae Aguirre MD Primary Care Provider Acti ve Start: January 29, 2025 Dr. Chelsea Anguiano DO Attending Provider Active Start: January 29, 2025 Dr. Chelsea Anguiano DO Referring Provider Active Start: January 29, 2025 Team Status: Active Member Role/Relationship Status Dates Dr. Rae Aguirre MD Primary Care Provider Acti ve Start: February 05, 2025 Dr. Chelsea Anguiano DO Attending Provider Active Start: February 05, 2025 Dr. Chelsea Anguiano DO Referring Provider Active Start: February 05, 2025 Team Status: Active Member Role/Relationship Status Dates Dr. Rae Aguirre MD Primary Care Provider Acti ve Start: February 06, 2025 Dr. Chelsea Anguiano DO Attending Provider Active Start: February 06, 2025 Dr. Chelsea Anguiano DO Referring Provider Active Start: February 06, 2025 Team Status: Active Member Role/Relationship Status Dates Dr. Rae Aguirre MD Primary Care Provider Acti ve Start: February 11, 2025 Dr. Chelsea Anguiano DO Attending Provider Active Start: February 11, 2025 Team Status: Inactive Member Role/Relationship Status Dates Dr. Rae Aguirre MD Primary Care Provider Acti ve Start: February 12, 2025 End: February 12, 2025 Dr. Chelsea Anguiano DO Attending Provider Active Start: February 12, 2025 End: February 12, 2025 Dr. Chelsea Anguiano DO Referring Provider Active Start: February 12, 2025 End: February 12, 2025 Team Status: Inactive Member Role/Relationship Status Dates Dr. Rae Aguirre MD Primary Care Provider Acti ve Start: February 14, 2025 End: February 14, 2025 Dr. Rae Aguirre MD Referring Provider Active Start: February 14, 2025 End: February 14, 2025 Sultana Finn IMPORT CUSTOMER SERVICE MANAGER, IMPORT CUSTOMER SERVICE MANAGER-C Attending Provider Active Start: February 14, 2025 End: February 14, 2025 Team Status: Active Member Role/Relationship Status Dates Dr. Rae Aguirre MD Primary Care Provider Acti ve Start: March 14, 2025 Dr. Myron Calvillo MD Attending Provider Active S tart: March 14, 2025 Team Status: Inactive Member Role/Relationship Status Dates Dr. Rae Aguirre MD Primary Care Provider Acti ve Start: March 14, 2025 End: March 14, 2025 Dr. Rae Aguirre MD Referring Provider Active Start: March 14, 2025 End: March 14, 2025 Dr. Chelsea Anguiano DO Attending Provider Active Start: March 14, 2025 End: March 14, 2025 Team Status: Active Member Role/Relationship Status Dates Dr. Rae Aguirre MD Primary Care Provider Acti ve Start: March 14, 2025 Dr. Chelsea Anguiano DO Attending Provider Active Start: March 14, 2025 Dr. Kang Pagan MD Referring Provider Active Start: March 14, 2025 Team Status: Inactive Member Role/Relationship Status Dates Dr. Rae Aguirre MD Primary Care Provider Acti ve Start: March 14, 2025 End: March 14, 2025 Dr. Rae Aguirre MD Referring Provider Active Start: March 14, 2025 End: March 14, 2025 Dr. Myron Calvillo MD Attending Provider Active S tart: March 14, 2025 End: March 14, 2025 Team Status: Inactive Member Role/Relationship Status Dates Dr. Rae Aguirre MD Primary Care Provider Acti ve Start: March 21, 2025 End: March 21, 2025 Dr. Rae Aguirre MD Referring Provider Active Start: March 21, 2025 End: March 21, 2025 Dr. Myron Calvillo MD Attending Provider Active S tart: March 21, 2025 End: March 21, 2025 Team Status: Inactive Member Role/Relationship Status Dates Dr. Rae Aguirre MD Primary Care Provider Acti ve Start: December 20, 2024 End: December 20, 2024 Dr. Rae Aguirre MD Referring Provider Active Start: December 20, 2024 End: December 20, 2024 Dr. Myron Calvillo MD Attending Provider Active S tart: December 20, 2024 End: December 20, 2024 Team Status: Inactive Member Role/Relationship Status Dates Dr. Rae Aguirre MD Primary Care Provider Acti ve Start: January 17, 2025 End: January 17, 2025 Dr. Rae Aguirre MD Referring Provider Active Start: January 17, 2025 End: January 17, 2025 Dr. Myron Calvillo MD Attending Provider Active S tart: January 17, 2025 End: January 17, 2025 Team Status: Inactive Member Role/Relationship Status Dates Dr. Rae Aguirre MD Primary Care Provider Acti ve Start: January 24, 2025 End: January 24, 2025 Dr. Rae Aguirre MD Referring Provider Active Start: January 24, 2025 End: January 24, 2025 Dr. Chelsea Anguiano DO Attending Provider Active Start: January 24, 2025 End: January 24, 2025 Team Status: Active Member Role/Relationship Status Dates Dr. Rae Aguirre MD Primary Care Provider Acti ve Start: January 29, 2025 Dr. Chelsea Anguiano DO Attending Provider Active Start: January 29, 2025 Dr. Chelsea Anguiano DO Referring Provider Active Start: January 29, 2025 Team Status: Active Member Role/Relationship Status Dates Dr. Rae Aguirre MD Primary Care Provider Acti ve Start: February 05, 2025 Dr. Chelsea Anguiano DO Attending Provider Active Start: February 05, 2025 Dr. Chelsea Anguiano DO Referring Provider Active Start: February 05, 2025 Team Status: Active Member Role/Relationship Status Dates Dr. Rae Aguirre MD Primary Care Provider Acti ve Start: February 06, 2025 Dr. Chelsea Anguiano DO Attending Provider Active Start: February 06, 2025 Dr. Chelsea Anguiano DO Referring Provider Active Start: February 06, 2025 Team Status: Active Member Role/Relationship Status Dates Dr. Rae Aguirre MD Primary Care Provider Acti ve Start: February 11, 2025 Dr. Chelsea Anguiano DO Attending Provider Active Start: February 11, 2025 Team Status: Inactive Member Role/Relationship Status Dates Dr. Rae Aguirre MD Primary Care Provider Acti ve Start: February 12, 2025 End: February 12, 2025 Dr. Chelsea Anguiano DO Attending Provider Active Start: February 12, 2025 End: February 12, 2025 Dr. Chelsea Anguiano DO Referring Provider Active Start: February 12, 2025 End: February 12, 2025 Team Status: Inactive Member Role/Relationship Status Dates Dr. Rae Aguirre MD Primary Care Provider Acti ve Start: February 14, 2025 End: February 14, 2025 Dr. Rae Aguirre MD Referring Provider Active Start: February 14, 2025 End: February 14, 2025 Sultana Finn IMPORT CUSTOMER SERVICE MANAGER, IMPORT CUSTOMER SERVICE MANAGER-C Attending Provider Active Start: February 14, 2025 End: February 14, 2025 Team Status: Inactive Member Role/Relationship Status Dates Dr. Rae Aguirre MD Primary Care Provider Acti ve Start: March 14, 2025 End: March 14, 2025 Dr. Rae Aguirre MD Referring Provider Active Start: March 14, 2025 End: March 14, 2025 Dr. Myron Calvillo MD Attending Provider Active S tart: March 14, 2025 End: March 14, 2025 Team Status: Inactive Member Role/Relationship Status Dates Dr. Rae Aguirre MD Primary Care Provider Acti ve Start: March 14, 2025 End: March 14, 2025 Dr. Rae Aguirre MD Referring Provider Active Start: March 14, 2025 End: March 14, 2025 Dr. Chelsea Anguiano DO Attending Provider Active Start: March 14, 2025 End: March 14, 2025 Team Status: Inactive Member Role/Relationship Status Dates Dr. Rae Aguirre MD Primary Care Provider Acti ve Start: March 21, 2025 End: March 21, 2025 Dr. Rae Aguirre MD Referring Provider Active Start: March 21, 2025 End: March 21, 2025 Dr. Myron Calvillo MD Attending Provider Active S tart: March 21, 2025 End: March 21, 2025 Team Status: Active Member Role/Relationship Status Dates Dr. Rae Aguirre MD Primary Care Provider Acti ve Start: March 21, 2025 Dr. Chelsea Anguiano DO Attending Provider Active Start: March 21, 2025 Dr. Kang Pagan MD Referring Provider Active Start: March 21, 2025 Team Status: Inactive Member Role/Relationship Status Dates Dr. Rae Aguirre MD Primary Care Provider Acti ve Start: April 04, 2025 End: April 04, 2025 Dr. Rae Aguirre MD Referring Provider Active Start: April 04, 2025 End: April 04, 2025 Dr. Myron Calvillo MD Attending Provider Active S tart: April 04, 2025 End: April 04, 2025 Team Status: Inactive Member Role/Relationship Status Dates Dr. Rae Aguirre MD Primary Care Provider Acti ve Start: January 17, 2025 End: January 17, 2025 Dr. Rae Aguirre MD Referring Provider Active Start: January 17, 2025 End: January 17, 2025 Dr. Myron Calvillo MD Attending Provider Active S tart: January 17, 2025 End: January 17, 2025 Team Status: Inactive Member Role/Relationship Status Dates Dr. Rae Aguirre MD Primary Care Provider Acti ve Start: January 24, 2025 End: January 24, 2025 Dr. Rae Aguirre MD Referring Provider Active Start: January 24, 2025 End: January 24, 2025 Dr. Chelsea Anguiano DO Attending Provider Active Start: January 24, 2025 End: January 24, 2025 Team Status: Active Member Role/Relationship Status Dates Dr. Rae Aguirre MD Primary Care Provider Acti ve Start: January 29, 2025 Dr. Chelsea Anguiano DO Attending Provider Active Start: January 29, 2025 Dr. Chelsea Anguiano DO Referring Provider Active Start: January 29, 2025 Team Status: Active Member Role/Relationship Status Dates Dr. Rae Aguirre MD Primary Care Provider Acti ve Start: February 05, 2025 Dr. Chelsea Anguiano DO Attending Provider Active Start: February 05, 2025 Dr. Chelsea Anguiano DO Referring Provider Active Start: February 05, 2025 Team Status: Active Member Role/Relationship Status Dates Dr. Rae Aguirre MD Primary Care Provider Acti ve Start: February 06, 2025 Dr. Chelsea Anguiano DO Attending Provider Active Start: February 06, 2025 Dr. Chelsea Anguiano DO Referring Provider Active Start: February 06, 2025 Team Status: Active Member Role/Relationship Status Dates Dr. Rae Aguirre MD Primary Care Provider Acti ve Start: February 11, 2025 Dr. Chelsea Anguiano DO Attending Provider Active Start: February 11, 2025 Team Status: Inactive Member Role/Relationship Status Dates Dr. Rae Aguirre MD Primary Care Provider Acti ve Start: February 12, 2025 End: February 12, 2025 Dr. Chelsea Anguiano DO Attending Provider Active Start: February 12, 2025 End: February 12, 2025 Dr. Chelsea Anguiano DO Referring Provider Active Start: February 12, 2025 End: February 12, 2025 Team Status: Inactive Member Role/Relationship Status Dates Dr. Rae Aguirre MD Primary Care Provider Acti ve Start: February 14, 2025 End: February 14, 2025 Dr. Rae Aguirre MD Referring Provider Active Start: February 14, 2025 End: February 14, 2025 Sultana Finn IMPORT CUSTOMER SERVICE MANAGER, IMPORT CUSTOMER SERVICE MANAGER-C Attending Provider Active Start: February 14, 2025 End: February 14, 2025 Team Status: Inactive Member Role/Relationship Status Dates Dr. Rae Aguirre MD Primary Care Provider Acti ve Start: March 14, 2025 End: March 14, 2025 Dr. Rae Aguirre MD Referring Provider Active Start: March 14, 2025 End: March 14, 2025 Dr. Myron Calvillo MD Attending Provider Active S tart: March 14, 2025 End: March 14, 2025 Team Status: Inactive Member Role/Relationship Status Dates Dr. Rae Aguirre MD Primary Care Provider Acti ve Start: March 14, 2025 End: March 14, 2025 Dr. Rae Aguirre MD Referring Provider Active Start: March 14, 2025 End: March 14, 2025 Dr. Chelsea Anguiano DO Attending Provider Active Start: March 14, 2025 End: March 14, 2025 Team Status: Inactive Member Role/Relationship Status Dates Dr. Rae Aguirre MD Primary Care Provider Acti ve Start: March 21, 2025 End: March 21, 2025 Dr. Rae Aguirre MD Referring Provider Active Start: March 21, 2025 End: March 21, 2025 Dr. Myron Calvillo MD Attending Provider Active S tart: March 21, 2025 End: March 21, 2025 Team Status: Inactive Member Role/Relationship Status Dates Dr. Rae Aguirre MD Primary Care Provider Acti ve Start: April 04, 2025 End: April 04, 2025 Dr. Rae Aguirre MD Referring Provider Active Start: April 04, 2025 End: April 04, 2025 Dr. Myron Calvillo MD Attending Provider Active S tart: April 04, 2025 End: April 04, 2025 Team Status: Inactive Member Role/Relationship Status Dates Dr. Rae Aguirre MD Primary Care Provider Acti ve Start: May 02, 2025 End: May 02, 2025 Dr. Rae Aguirre MD Referring Provider Active Start: May 02, 2025 End: May 02, 2025 Sultana Finn IMPORT CUSTOMER SERVICE MANAGER, IMPORT CUSTOMER SERVICE MANAGER-C Attending Provider Active Start: May 02, 2025 End: May 02, 2025 Team Status: Active Member Role/Relationship Status Dates Dr. Rae Aguirre MD Primary Care Provider Acti ve Start: May 02, 2025 Dr. Chelsea Anguiano DO Attending Provider Active Start: May 02, 2025 Dr. Kang Pagan MD Referring Provider Active Start: May 02, 2025 Team Status: Active Member Role/Relationship Status Dates Dr. Rae Aguirre MD Primary care physician Act sallie Team Status: Active Member Role/Relationship Status Dates Dr. Rae Aguirre MD Primary care physician Act sallie Start: February 11, 2025 Dr. Chelsea Anguiano DO Attending physician Active Start: February 11, 2025 Team Status: Inactive Member Role/Relationship Status Dates Dr. Rae Aguirre MD Primary care physician Act sallie Start: February 12, 2025 End: February 12, 2025 Dr. Chelsea Anguiano DO Attending physician Active Start: February 12, 2025 End: February 12, 2025 Dr. Chelsea Anguiano DO Referring Provider Active Start: February 12, 2025 End: February 12, 2025 Team Status: Inactive Member Role/Relationship Status Dates Dr. Rae Aguirre MD Primary care physician Act sallie Start: February 14, 2025 End: February 14, 2025 Dr. Rae Aguirre MD Referring Provider Active Start: February 14, 2025 End: February 14, 2025 Sultana Finn IMPORT CUSTOMER SERVICE MANAGER, IMPORT CUSTOMER SERVICE MANAGER-C Attending physician Active Start: February 14, 2025 End: February 14, 2025 Team Status: Inactive Member Role/Relationship Status Dates Dr. Rae Aguirre MD Primary care physician Act sallie Start: March 14, 2025 End: March 14, 2025 Dr. Rae Aguirre MD Referring Provider Active Start: March 14, 2025 End: March 14, 2025 Dr. Myron Calvillo MD Attending physician Active Start: March 14, 2025 End: March 14, 2025 Team Status: Inactive Member Role/Relationship Status Dates Dr. Rae Aguirre MD Primary care physician Act sallie Start: March 14, 2025 End: March 14, 2025 Dr. Rae Aguirre MD Referring Provider Active Start: March 14, 2025 End: March 14, 2025 Dr. Chelsea Anguiano DO Attending physician Active Start: March 14, 2025 End: March 14, 2025 Team Status: Inactive Member Role/Relationship Status Dates Dr. Rae Aguirre MD Primary care physician Act sallie Start: March 21, 2025 End: March 21, 2025 Dr. Rae Aguirre MD Referring Provider Active Start: March 21, 2025 End: March 21, 2025 Dr. Myron Calvillo MD Attending physician Active Start: March 21, 2025 End: March 21, 2025 Team Status: Inactive Member Role/Relationship Status Dates Dr. Rae Aguirre MD Primary care physician Act sallie Start: April 04, 2025 End: April 04, 2025 Dr. Rae Aguirre MD Referring Provider Active Start: April 04, 2025 End: April 04, 2025 Dr. Myron Calvillo MD Attending physician Active Start: April 04, 2025 End: April 04, 2025 Team Status: Inactive Member Role/Relationship Status Dates Dr. Rae Aguirre MD Primary care physician Act sallie Start: May 02, 2025 End: May 02, 2025 Dr. Rae Aguirre MD Referring Provider Active Start: May 02, 2025 End: May 02, 2025 Sultana Finn IMPORT CUSTOMER SERVICE MANAGER, IMPORT CUSTOMER SERVICE MANAGER-C Attending physician Active Start: May 02, 2025 End: May 02, 2025 Team Status: Active Member Role/Relationship Status Dates Dr. Rae Aguirre MD Primary care physician Act sallie Start: May 30, 2025 Dr. Chelsea Anguiano DO Attending physician Active Start: May 30, 2025 Dr. Kang Pagan MD Referring Provider Active Start: May 30, 2025 Team Status: Inactive Member Role/Relationship Status Dates Dr. Rae Aguirre MD Primary care physician Act sallie Start: May 30, 2025 End: May 30, 2025 Dr. Rae Aguirre MD Referring Provider Active Start: May 30, 2025 End: May 30, 2025 Dr. Myron Calvillo MD Attending physician Active Start: May 30, 2025 End: May 30, 2025 FOR RECORDS PERTAINING TO PATIENTS WHO ARE OR HAVE BEEN ENROLLED IN A CHEMICAL DEPENDENCY/SUBSTANCEABUSE PROGRAM, SOME INFORMATION MAY BE OMITTED. This clinical summary was aggregated from multiple sources. Caution should be exercised in using it in the provision of clinical care. This summary normalizes information from multiple sources, and as a consequence, information in this document may materially change the coding, format and clinical context of patient data. In addition, data may be omitted in some cases. CLINICAL DECISIONS SHOULD BE BASED ON THE PRIMARY CLINICAL RECORDS. [facility]. provides no warranty or guarantee of the accuracy or completeness of information in this document.
--- OUTSIDE RECORDS SUMMARY | 2025-06-17 07:22 | XMS RPT_ITS | CCD ---
Author Organization [facility] Care Team Providers Care Fire Prevention Officer Name Role Phone PROVIDER, UNKNOWN Admitting Unavailable PROVIDER, UNKNOWN Attending Unavailable LUCIANO ADAM Attending Unavailable CHELSEA ANGUIANO Referring Unavailable Dr. Adolfo Aguirre Primary Care Provider Dr. Adolfo Aguirre Referring Provider Karli, Dr. Sancehs Attending Provider Dr. Harrison Gomez Attending Provider [phone] Adolfo Aguirre Primary Care Provider Dr. Adolfo Aguirre Referring Provider Karli, Dr. Sanches Attending Provider Dr. Adolfo Aguirre Primary Care Provider [phone] Dr. Adolfo Aguirre Ref[facility] Dr[facility] Sanches Attending Provider Aakash MIRANDA NP-Melissa Weinberg Attending Provider Dr. Kang Pagan Attending Provider Dr. Adolfo Aguirre Primary Care Provider [phone] Dr. Adolfo Aguirre Referring Provider Karli, Dr. Sanches Attending Provider Dr. Adolfo Aguirre Primary Care Provider [phone] Dr. Adolfo Aguirre Referring Provider Karli, Dr. Sanches Attending Provider Dr. Harrison Gomez Attending Provider [phone] Nereida, DIRT BIKE RACER-C Ngozi Referring Provider Unavail able TAVARES FONTENOT Attending Unavailable RAE AGUIRRE Referring Unavailvito e RAE AGUIRRE Primary Care Unavailabl e Timothy, Dr. Mata Primary Care Provider Timothy, Dr. Mata Referring Provider Karli, Dr. Sanches Attending Provider Aakash DIRT BIKE RACER, DIRT BIKE RACER-C Sultana Attending Provider Timothy, Dr. Mata Primary Care Provider Timothy, Dr. Mata Referring Provider Karli, Dr. Sanches Attending Provider Dr. Chelsea Anguiano Attending Provider Timothy, Dr. Mata Primary Care Provider Timothy, Dr. Mata Referring Provider Karli, Dr. Sanches Attending Provider Aakash DIRT BIKE RACER, DIRT BIKE RACER-C Sultana Attending Provider Dr. Rae Aguirre MD Primary Care Provider Dr. Rae Aguirre MD Referring Provider Karli FELICIANO, Dr. Sanches Attending Provider Dr. Kang Pagan MD Attending Provider Aakash DIRT BIKE RACER-C, Sultana Attending Provider Dr. Chelsea Anguiano DO Attending Provider Dr. Kang Pagan MD Referring Provider Dr. Trever Terry DO Attending Provider Dr. Trever Terry DO Emergency Provider Dr. Rae Aguirre MD Attending Provider Aakash DIRT BIKE RACER-C, Sultana Referring Provider Dr. Chelsea Anguiano DO [...] Timothy FELICIANO, Dr. Bell Referring Provider [phone] Aakash DIRT BIKE RACER-C, Sultana Attending Provider Dank AVENDANO, Dr. Banks Referring Provider Latasha FELICIANO, Dr. Kapadia Referring Provider Timothy FELICIANO, Dr. Bell Primary Care Provider Timothy FELICIANO, Dr. Bell Referring Provider Aakash DIRT BIKE RACER-C, Sultana Attending Provider Latasha FELICIANO, Dr. Kapadia Referring Provider Timothy FELICIANO, Dr. Bell Primary Care Provider Timothy FELICIANO, Dr. Bell Referring Provider [phone] Karli FELICIANO, Dr. Sanches Attending Provider Latasha FELICIANO, Dr. Kapadia Referring Provider Rae Aguirre Primary Care Unavailable Myron Calvillo Attending Unavailable Rae Aguirre Referring Unavailable Rae Aguirre Primary Care Unavailable Aakash DIRT BIKE RACER, Sultana Attending Unavailable Rae Aguirre Referring Unavailable Aakash DIRT BIKE RACER, Sultana Attending Unavailable Rae Aguirre Referring Unavailable [...] Unavailable Ranney, Christopher Primary Care Unavailable Aakash DIRT BIKE RACER, Sultana Attending Unavailable Ranney, Christopher Referring Unavailable DankChelsea slade Attending Unavailable Ranney, Christopher Referring Unavailable Ranney, Christopher Primary Care Unavailable Ranney, Christopher Referring Unavailable PraMyron cross Attending Unavailable Ranney, Christopher Primary Care Unavailable Ranney, Christopher Referring Unavailable Mryon Calvillo Attending Unavailable Ranney, Christopher Primary Care Unavailable Ranney, Christopher Referring Unavailable Aakash DIRT BIKE RACER, Sultana Attending Unavailable Ranney, Christopher Primary Care [...] Care Unavailable Ranney, Christopher Referring Unavailable Aakash DIRT BIKE RACER, Sultana Attending Unavailable Ranney, Christopher Primary Care Unavailable Chelsea Anguiano Attending Unavailable Donnaus, Mansour Referring Unavailable Trever Terry Attending Unavailable Ranney, Christopher Primary Care Unavailable Aakash DIRT BIKE RACER, Sultana Attending Unavailable Aakash DIRT BIKE RACER, Sultana Referring Unavailable Ranney, Christopher Primary Care Unavailable Ranney, Christopher Primary Care Unavailable Ranney, Christopher Referring Unavailable Myron Calvillo Attending Unavailable Ranney, Christopher Primary Care Unavailable Ranney, Christopher Referring Unavailable PraMyron cross Attending Unavailable Ranney, Christopher Referring Unavailable Ranney, Christopher Primary Care Unavailable Aakash DIRT BIKE RACER, Sultana Attending Unavailable Chelsea Anguiano Referring Unavailable Chelsea Anguiano Attending Unavailable Rae Aguirre Primary Care Unavailable Rae Aguirre Primary Care Unavailable Chelsea Anguiano Attending Unavailable Rae Aguirre Referring Unavailable Chelsea Anguiano Attending Unavailable Chelsea Anguiano Referring Unavailable Rae Aguirre Primary Care Unavailable Timothy FELICIANO, Dr. Bell Primary Care Physicia n Dank AVENDANO, Dr. Banks Attending Physician Dr. Chelsea Anguiano DO Referring Provider Timothy FELICIANO, Dr. Bell Referring Provider [phone] Aakash DIRT BIKE RACER-CSultana Attending Physician Karli FELICIANO, Dr. Sanches Attending Physician Latasha FELICIANO, Dr. Kapadia Referring Provider Allergies Allergy Classification Reported Allergen(s) Allergy Type Date of Onset Reaction(s) Facility (20 sources) Nggmute-Zdr-Qfn Reductase Inhibitor; Translations: [Vwgwmln-Xhy-Sd a Reductase Inhibitor] Propensity to adverse reactions 2 elevated liver enzymes [facility] (1 source) Hmg-Coa Reductase Inhibitors (Statins); Translations: [ZDVMXCB-DNV-OZ A REDUCTASE INHIBITORS] Propensity to adverse reactions to drug (disorder) 0 [facility] Repository Medications Current Medications Medication Drug Class(es) [...] Ergocalciferol (Vitamin D2) 50,000 UNIT capsule Active 88026 U PO SUWE July 09, 2015 12:00am [...] MG PO DAILY July 09, 2015 12:00am Xchpnjxs-Twe-Ko-Lycopen-Lute in (9 sources) Start: 07-02-2013 Rgtzoekc-Qva-Ak-Lycopen-Lute in Active 1 EACH PO AT BEDTIME July 02, 2013 8:21am Start: 07-02-2013 Ufsoampp-Xew-P i-Orydfoz-Aeqewr Active 1 EACH PO AT BEDTIME July 01, 2013 11:00pm Start: 07-02-2013 Mezchvhu-Vkb-P h-Vxkgrse-Mewykt Active 1 EACH PO AT BEDTIME July 02, 2013 12:00am Ojlgyrde-Kfb-Zl-Lycopen-Lute in 1 EACH tablet (12 sources) Start: 07-02-2013 Ipawahee-Iqs-Kz-Lycopen-Lute in 1 EACH tablet Active 1 NMA PO AT BEDTIME July 02, 2013 12:00am Complies with drug therapy Start: 07-02-2013 Kfuieayl-Chl-B z-Whlzfxs-Pnrznc 1 EACH tablet Active 1 NMA PO [...] 3:20pm docusate sodium 50 mg / sennosides, mcc 8.6 mg oral tablet (20 sources) Start: [...] Radiation therapy to sacrum/iliac bones.Comes for follow up.[facility] One report reviewed, ESR1 negative, TMB 10. [...] Radiation therapy to sacrum/iliac bones.Comes for follow up.[facility] One report reviewed, ESR1 negative, TMB 10. On High Dose Tamoxifen.CBC and chemistry reviewed, OK for therapy. Conduction disorders (20 sources) Right bundle branch block; Translations: [Unspecified right bundle-branch block] 07-03-2019 Chronic Coronary atherosclerosis and other heart disease (20 sources) Coronary atherosclerosis; Translations: [Atherosclerotic heart disease of [place] coronary artery without angina pectoris] 06-12-2020 Chronic [...] disea se. Other aftercare (2 sources) Other intermediate (current) drug therapy; Translations: [Other intermediate (current) drug therapy] Onset: 09-20-2024 Episodic Other [...] nodule in right mastectomy scar, biopsy at [facility] showed metastatic breast cancer. Other skin disorders [...] 06-01-2025 CA 15-3 31.3 U/mL Abnormal 0.0-25.0 [facility] Comment on above: Result Comment: Vputi Electrochemiluminescence Immunoassay(ECLIA)Values obtained with different assay methods or kits cannotbe used interchangeably. Results cannot be interpreted asabsolute evidence of the presence or absence of malignantdisease.Performed at: [place] [id number] Director: Reese Willingham PhD, Phone: [phone] Performed By: #### L 100.0100, L3100.5040, L500.4050, L3100.2300, L3100.5030 ####[facility] [address] [place], [address] CA 27.29on 06-01-2025 CA 27.29 49.4 U/mL Abnormal 0.0-38.6 [facility] Comment on above: Result Comment: Ubersenseaur Immunochemiluminometric Methodology (ICMA)Values obtained with different assay methods or kits cannotbe used interchangeably. Results cannot be interpreted asabsolute evidence of the presence or absence of malignantdisease. Performed By: #### L 100.0100, L3100.5040, L500.4050, L3100.2300, L3100.5030 ####[facility] [address] [place], [place], [id number] Cancer Antigen 125on 025 CA 125 122.0 U/mL High 0.0-38.1 [facility] Comment on above: Result Comment: [facility] [employer] Electrochemiluminescence Immunoassay(ECLIA)Values obtained with different assay methods or kits cannotbe used interchangeably. Results cannot be interpreted asabsolute evidence of the presence or absence of malignantdisease.Performed at: [address] [id number] Director: Reese Willingham PhD, Phone: [phone] Performed By: #### L 310.6121 ####[facility] [address] [place], [place], [id number] Carcinoembryonic Antigenon 0 06-01-2025 CEA 17.9 ng/mL High 0.0-4.7 [facility] Comment on above: Result Comment: Nons mokers <3.9 Smokers <5.6[facility] Electrochemiluminescence Immunoassay(ECLIA)Values obtained with different assay methods or kitscannot be used interchangeably. Results cannot beinterpreted as absolute evidence of the presence orabsence of malignant disease. Performed By: #### L 100.0100, L3100.5040, L500.4050, L3100.2300, L3100.5030 ####[facility] [address] [place], [place], [id number] Absolute lymphocyte countOrd ered By: Sultana Finn on 05-30-2025 Lymphocytes Auto (Unsp spec) [#/Vol] 0.73 10*3/uL Low 0.83-4.51 [facility] Absolute neutrophil countOrd ered By: Sultana Finn on 05-30-2025 Neutrophils (Bld) [#/Vol] 2.3 10*3/uL 2.0-7.7 [facility] Anion gap in Serum or Plasma Ordered By: Sultana Finn on 05-30-2025 Anion gap [Moles/Vol] 14 mmol/L 5-15 [facility] Automated lymphocyte count a s percentage of total leukocytesOrdered By: Sultana Finn on 05-30-2025 Lymphocytes/100 WBC Auto (Unsp spec) 21.2 % 19-41 [facility] BUN/creatinine ratioOrdered By: Sultana Finn on 05-30-2025 Urea nitrogen/Creatinine [Mass ratio] 15.9 mg/mg 10-20 [facility] Basophil percentageOrdered B y: Sultana Finn on 05-30-2025 Basophils/100 WBC (Bld) 0.3 % 0-1 [facility] Bilirubin, totalOrdered By: Sultana Finn on 05-30-2025 Bilirubin [Mass/Vol] 0.21 mg/dL 0.00-1.30 [facility] CA 15-3Ordered By: Sultana dumont on 05-30-2025 CA 15- 31.3 U/mL High 0.0-25.0 [facility] Comment on above: [facility] El ectrochemiluminescence Immunoassay(ECLIA)Values obtained with different assay methods or kits cannotbe used interchangeably. Results cannot be interpreted asabsolute evidence of the presence or absence of malignantdisease.Performed at: [employer] [place] [id number] Director: Reese Willingham PhD, Phone: [phone] CA 27.29Ordered By: Sultana butler on 05-30-2025 CA 27.29 49.4 U/mL High 0.0-38.6 [facility] Comment on above: [employer]ens Centaur Immu nochemiluminometric Methodology (ICMA)Values obtained with different assay methods or kits cannotbe used interchangeably. Results cannot be interpreted asabsolute evidence of the presence or absence of malignantdisease. CBC W/Diff, Automatedon 05-13 Absolute Lymph 0.73 X10 3/uL Low 0.83-4.51 [facility] Comment on above: Performed By: #### L 100.0100, L3100.5040, L500.4050, L3100.2300, L3100.5030 ####[facility] [address] [place], [address] Absolute Neut 2.3 X10 3/uL Normal 2.0-7.7 [facility] Comment on above: Performed By: #### L 100.0100, L3100.5040, L500.4050, L3100.2300, L3100.5030 ####[facility] [address] [place], [address] Basophils/100 WBC (Bld) 0.3 % Normal 0-1 [facility] Comment on above: Performed By: #### L 100.0100, L3100.5040, L500.4050, L3100.2300, L3100.5030 ####[facility] [address] [place], [address] Eosinophils/100 WBC (Bld) 3.8 % Normal 0-5 [facility] Comment on above: Performed By: #### L 100.0100, L3100.5040, L500.4050, L3100.2300, L3100.5030 ####[facility] [address] [place], [address] Erythrocyte distribution width (RBC) [Ratio] 13.5 % Normal 11.6-14.6 [facility] Comment on above: Performed By: #### L 100.0100, L3100.5040, L500.4050, L3100.2300, L3100.5030 ####[facility] [address] [place], [address] Hematocrit (Bld) [Volume fraction] 31.6 % Low 37-47 [facility] Comment on above: Performed By: #### L 100.0100, L3100.5040, L500.4050, L3100.2300, L3100.5030 ####[facility] [address] [place], [address] Hemoglobin (Bld) [Mass/Vol] 10.6 g/dL Low 12.0-15.0 [facility] Comment on above: Performed By: #### L 100.0100, L3100.5040, L500.4050, L3100.2300, L3100.5030 ####[facility] [address] [place], [address] IG% 0.600 Normal 0.0-0.9 [facility] Comment on above: Result Comment: IG% - Immature Granulocytes (promyelocytes, myelocytes andmetamyelocytes) > 1% indicates that a LEFT SHIFT is Present. Performed By: #### L 100.0100, L3100.5040, L500.4050, L3100.2300, L3100.5030 ####[facility] [address] [place], [address] Lymphocytes/100 WBC (Bld) 21.2 % Normal 19-41 [facility] Comment on above: Performed By: #### L 100.0100, L3100.5040, L500.4050, L3100.2300, L3100.5030 ####[facility] [address] [place], [address] MCH (RBC) [Entitic mass] 32.6 pg High 27.0-32.0 [facility] Comment on above: Performed By: #### L 100.0100, L3100.5040, L500.4050, L3100.2300, L3100.5030 ####[facility] [address] [place], [address] MCHC (RBC) [Mass/Vol] 33.5 g/dL Normal 32-36 [facility] Comment on above: Performed By: #### L 100.0100, L3100.5040, L500.4050, L3100.2300, L3100.5030 ####[facility] [address] [place], [address] MCV (RBC) [Entitic vol] 97.2 fL Normal 81-99 [facility] Comment on above: Performed By: #### L 100.0100, L3100.5040, L500.4050, L3100.2300, L3100.5030 ####[facility] [address] [place], [address] Monocytes/100 WBC (Bld) 8.7 % Normal 0-10 [facility] Comment on above: Performed By: #### L 100.0100, L3100.5040, L500.4050, L3100.2300, L3100.5030 ####[facility] [address] [place], [address] Neutrophils/100 WBC (Bld) 65.4 % Normal 47-70 [facility] Comment on above: Performed By: #### L 100.0100, L3100.5040, L500.4050, L3100.2300, L3100.5030 ####[facility] [address] [place], [address] Nucleated RBC (Bld) [#/Vol] 0 10*3/uL Normal 0-5 [facility] Comment on above: Performed By: #### L 100.0100, L3100.5040, L500.4050, L3100.2300, L3100.5030 ####[facility] [address] [place], [address] Platelet mean volume (Bld) [Entitic vol] 9.4 fL Normal 6.2-12.0 [facility] Comment on above: Performed By: #### L 100.0100, L3100.5040, L500.4050, L3100.2300, L3100.5030 ####[facility] [address] [place], [address] Platelets (Bld) [#/Vol] 170 10*3/uL Normal 150-450 [facility] Comment on above: Performed By: #### L 100.0100, L3100.5040, L500.4050, L3100.2300, L3100.5030 ####[facility] [address] [place], [address] RBC (Bld) [#/Vol] 3.25 10*6/uL Low 4.2-5.4 [facility] Comment on above: Performed By: #### L 100.0100, L3100.5040, L500.4050, L3100.2300, L3100.5030 ####[facility] [address] [place], [address] RDW SD 48.5 fl High 35.1-43.9 [facility] Comment on above: Performed By: #### L 100.0100, L3100.5040, L500.4050, L3100.2300, L3100.5030 ####[facility] [address] [place], [address] WBC (Bld) [#/Vol] 3.5 10*3/uL Low 4.4-11.0 [facility] Comment on above: Performed By: #### L 100.0100, L3100.5040, L500.4050, L3100.2300, L3100.5030 ####[facility] [address] [place], [address] Cancer antigen 125 (CA-125) measurementOrdered By: Myron Calvillo on 05-30-2025 Cancer antigen 125 (CA-125) measurement 122.0 U/mL High 0.0-38.1 [facility] Comment on above: [facility] El ectrochemiluminescence Immunoassay(ECLIA)Values obtained with different assay methods or kits cannotbe used interchangeably. Results cannot be interpreted asabsolute evidence of the presence or absence of malignantdisease.Performed at: [facility] [place] [id number] Director: Reese Willingham PhD, Phone: [phone] Carbon dioxide, total [Moles /volume] in Central venous bloodOrdered By: Sultana Finn on 05-30-2025 CO2 [Moles/Vol] 22.6 mmol/L 21.0-32.0 [facility] Chloride assayOrdered By: Saurabh Finn on 05-30-2025 Chloride [Moles/Vol] 103 mmol/L 98-108 [facility] Comprehensive Metabolic Prof ilon 05-30-2025 Albumin [Mass/Vol] 3.5 g/dL Normal 3.4-4.8 [facility] Comment on above: Performed By: #### L 100.0100, L3100.5040, L500.4050, L3100.2300, L3100.5030 ####[facility] [address] [place], [address] Albumin/Globulin [Mass ratio] 1.2 {ratio} Normal 0.9-2.4 [facility] Comment on above: Performed By: #### L 100.0100, L3100.5040, L500.4050, L3100.2300, L3100.5030 ####[facility] [address] [place], [address] ALK PHOS 193 U/L High 35-104 [facility] Comment on above: Performed By: #### L 100.0100, L3100.5040, L500.4050, L3100.2300, L3100.5030 ####[facility] [address] [place], [address] ALT [Catalytic activity/Vol] 37 U/L High <=34 [facility] Comment on above: Performed By: #### L 100.0100, L3100.5040, L500.4050, L3100.2300, L3100.5030 ####[facility] [address] [place], [address] AST [Catalytic activity/Vol] 51 U/L High <=31 [facility] Comment on above: Performed By: #### L 100.0100, L3100.5040, L500.4050, L3100.2300, L3100.5030 ####[facility] [address] [place], [address] Bilirubin [Mass/Vol] 0.21 mg/dL Normal 0.00-1.30 [facility] Comment on above: Performed By: #### L 100.0100, L3100.5040, L500.4050, L3100.2300, L3100.5030 ####[facility] [address] [place], [address] BUN/CRE 15.9 RATIO Normal 10-20 [facility] Comment on above: Performed By: #### L 100.0100, L3100.5040, L500.4050, L3100.2300, L3100.5030 ####[facility] [address] [place], [address] Calcium [Mass/Vol] 8.8 mg/dL Normal 7.6-11.0 [facility] Comment on above: Performed By: #### L 100.0100, L3100.5040, L500.4050, L3100.2300, L3100.5030 ####[facility] [address] [place], [address] Chloride [Moles/Vol] 103 mmol/L Normal 98-108 [facility] Comment on above: Performed By: #### L 100.0100, L3100.5040, L500.4050, L3100.2300, L3100.5030 ####[facility] [address] [place], [address] CO2 [Moles/Vol] 22.6 mmol/L Normal 21.0-32.0 [facility] Comment on above: Performed By: #### L 100.0100, L3100.5040, L500.4050, L3100.2300, L3100.5030 ####[facility] [address] [place], [address] Creatinine [Mass/Vol] 1.38 mg/dL High 0.70-1.20 [facility] Comment on above: Performed By: #### L 100.0100, L3100.5040, L500.4050, L3100.2300, L3100.5030 ####[facility] [address] [place], [address] ECRCL 44.49 ml/min Low 50-250 [facility] Comment on above: Performed By: #### L 100.0100, L3100.5040, L500.4050, L3100.2300, L3100.5030 ####[facility] [address] [place], [address] GAP 14 Normal 5-15 [facility] Comment on above: Performed By: #### L 100.0100, L3100.5040, L500.4050, L3100.2300, L3100.5030 ####[facility] [address] [place], [address] GFR/1.73 sq M.predicted among non-blacks MDRD (S/P/Bld) [Vol rate/Area] 41 mL/min/{1.73_m2} Low >60 [facility] Comment on above: Result Comment: mL/m in/1.73m2 CKD-EPI Creatinine Equation (2020) Performed By: #### L 100.0100, L3100.5040, L500.4050, L3100.2300, L3100.5030 ####[facility] [address] [place], [address] Globulin (S) [Mass/Vol] 3.0 g/dL Normal 2.2-4.2 [facility] Comment on above: Performed By: #### L 100.0100, L3100.5040, L500.4050, L3100.2300, L3100.5030 ####[facility] [address] [place], [address] Glucose [Mass/Vol] 222 mg/dL High 70-99 [facility] Comment on above: Performed By: #### L 100.0100, L3100.5040, L500.4050, L3100.2300, L3100.5030 ####[facility] [address] [place], [address] Potassium [Moles/Vol] 4.6 mmol/L Normal 3.3-5.1 [facility] Comment on above: Performed By: #### L 100.0100, L3100.5040, L500.4050, L3100.2300, L3100.5030 ####[facility] [address] [place], [address] Sodium [Moles/Vol] 139 mmol/L Normal 133-145 [facility] Comment on above: Performed By: #### L 100.0100, L3100.5040, L500.4050, L3100.2300, L3100.5030 ####[facility] [address] [place], [address] T PROT 6.4 g/dL Normal 5.9-8.4 [facility] Comment on above: Performed By: #### L 100.0100, L3100.5040, L500.4050, L3100.2300, L3100.5030 ####[facility] [address] [place], [address] Urea nitrogen [Mass/Vol] 22 mg/dL High 4-19 [facility] Comment on above: Performed By: #### L 100.0100, L3100.5040, L500.4050, L3100.2300, L3100.5030 ####[facility] [address] [place], [address] Eosinophil percentageOrdered By: Sultana Finn on 05-30-2025 Eosinophils/100 WBC (Bld) 3.8 % 0-5 [facility] Erythrocyte distribution wid th ratioOrdered By: Sultana Finn on 05-30-2025 Erythrocyte distribution width (RBC) [Ratio] 13.5 % 11.6-14.6 [facility] Erythrocyte distribution wid th standard deviationOrdered By: Sultana Finn on 05-30-2025 Erythrocyte distribution width (RBC) [Ratio] 48.5 fl High 35.1-43.9 [facility] Glomerular filtration rate ( GFR) estimation/1.73 sq m using serum, plasma, or whole bOrdered By: Sultana Finn on 05-30-2025 GFR/1.73 sq M.predicted among non-blacks MDRD (S/P/Bld) [Vol rate/Area] 41 mL/min/{1.73_m2} Low >60 [facility] Comment on above: mL/min/1.73m2 CKD-EP I Creatinine Equation (2020) Hematocrit Auto (Bld) [Volum e fraction]Ordered By: [facility]anaHoly [facility] HospitalAakash on 05-30-2025 Hematocrit (Bld) [Volume fraction] 31.6 % Low 37-47 [facility] Hemoglobin measurementOrdere d By: Sultana Aakash 05-30-2025 Hemoglobin (Bld) [Mass/Vol] 10.6 g/dL Low 12.0-15.0 [facility] Immature granulocytes/100 WB C Auto (Bld)Ordered By: Sultana Finn on 05-30-2025 Immature granulocytes/100 WBC (Bld) 0.600 % 0.0-0.9 [facility] Comment on above: IG% - Immature Granu locytes (promyelocytes, myelocytes and metamyelocytes) > 1% indicates that a LEFT SHIFT is Present. Laboratory - Chemistry and C hemistry - challengeOrdered By: Sultana Finn on 05-30-2025 AST [Catalytic activity/Vol] 51 U/L High <32 [facility] MCV (mean corpuscular volume ) determinationOrdered By: Sultana Finn on 05-30-2025 MCV (RBC) [Entitic vol] 97.2 fL 81-99 [facility] Mean corpuscular hemoglobin (MCH) determinationOrdered By: Sultaan Aakash 05-30-2025 MCH (RBC) [Entitic mass] 32.6 pg High 27.0-32.0 [facility] Mean corpuscular hemoglobin concentration (MCHC) determinationOrdered By: Sultana Finn on 05-30-2025 MCHC (RBC) [Mass/Vol] 33.5 g/dL 32-36 [facility] Mean platelet volume determi nationOrdered By: Sultana Finn on 05-30-2025 Platelet mean volume (Bld) [Entitic vol] 9.4 fL 6.2-12.0 [facility] Monocyte percentageOrdered B y: Sultana Finn on 05-30-2025 Monocytes/100 WBC (Bld) 8.7 % 0-10 [facility] Neutrophil percentageOrdered By: Sultana Finn on 05-30-2025 Neutrophils/100 WBC (Bld) 65.4 % 47-70 [facility] Nucleated red blood cell per centageOrdered By: Sultana Finn on 05-30-2025 Nucleated RBC/100 WBC (Bld) [Ratio] 0 % 0-5 [facility] Oncology Visit Reporton 05-13 Oncology Visit Report Normal [facility] Platelet countOrdered By: Saurabh Finn on 05-30-2025 Platelets (Bld) [#/Vol] 170 10*3/uL 150-450 [facility] Potassium measurement (mass/ volume)Ordered By: Sultana Finn on 05-30-2025 Potassium (Unsp spec) [Mass/Vol] 4.6 mmol/L 3.3-5.1 [facility] RBC Auto (Bld) [#/Vol]Ordere d By: Sultana Finn on 05-30-2025 RBC (Bld) [#/Vol] 3.25 10*6/uL Low 4.2-5.4 [facility] Serum creatinine measurement (mass/volume)Ordered By: Sultana Finn on 05-30-2025 Creatinine [Mass/Vol] 1.38 mg/dL High 0.70-1.20 [facility] Serum globulin measurementOr dered By: Sultana Finn on 05-30-2025 Globulin (S) [Mass/Vol] 3.0 g/dL 2.2-4.2 [facility] Serum glucose measurement (m ass/volume)Ordered By: Sultana Finn on 05-30-2025 Glucose [Mass/Vol] 222 mg/dL High 70-99 [facility] Serum or plasma alanine skinner otransferase (ALT) measurementOrdered By: Sultana Finn on 05-30-2025 ALT [Catalytic activity/Vol] 37 U/L High <35 [facility] Serum or plasma albumin amanda urement (mass/volume)Ordered By: Sultana Finn on 05-30-2025 Albumin [Mass/Vol] 3.5 g/dL 3.4-4.8 [facility] Serum or plasma albumin/glob ulin mass ratioOrdered By: Sultana Aakash 05-30-2025 Albumin/Globulin [Mass ratio] 1.2 {ratio} 0.9-2.4 [facility] Serum or plasma alkaline domenico sphatase measurementOrdered By: Sultana Finn 05-30-2025 ALP [Catalytic activity/Vol] 193 U/L High 35-104 [facility] Serum or plasma calcium amanda urement (mass/volume)Ordered By: Sultana Finn 05-30-2025 Calcium [Mass/Vol] 8.8 mg/dL 7.6-11.0 [facility] Serum or plasma carcinoembry onic antigen measurement (mass/volume)Ordered By: Sultana Finn 05-30-2025 Carcinoembryonic Ag [Mass/Vol] 17.9 ng/mL High 0.0-4.7 [facility] Comment on above: Nonsmokers <3.9 Smok ers <5.6[employer] Electrochemiluminescence Immunoassay(ECLIA)Values obtained with different assay methods or kitscannot be used interchangeably. Results cannot beinterpreted as absolute evidence of the presence orabsence of malignant disease. Serum or plasma urea nitroge n measurement (mass/volume)Ordered By: Sultana Finn 05-30-2025 Urea nitrogen [Mass/Vol] 22 mg/dL High 4-19 [facility] Sodium levelOrdered By: Sultana Finn 05-30-2025 Sodium [Moles/Vol] 139 mmol/L 133-145 [facility] Total proteinOrdered By: Chaka Finn 05-30-2025 Protein [Mass/Vol] 6.4 g/dL 5.9-8.4 [facility] White blood cell (WBC) count Ordered By: Sultana EspañaAakash on 05-30-2025 WBC (Bld) [#/Vol] 3.5 10*3/uL Low 4.4-11.0 [facility] CA 15-3on 05-03-2025 CA 15-3 29.9 U/mL Abnormal 0.0-25.0 [facility] Comment on above: Result Comment: Vputi Electrochemiluminescence Immunoassay(ECLIA)Values obtained with different assay methods or kits cannotbe used interchangeably. Results cannot be interpreted asabsolute evidence of the presence or absence of malignantdisease.Performed at: [place] [id number] Director: Reese Willingham PhD, Phone: [phone] Performed By: #### L 3100.2300, L3100.5000, L3100.5030, L3100.5040, L100.0100 ####[facility] [address] [place], [place], [address] CA 27.29on 05-03-2025 CA 27.29 43.8 U/mL Abnormal 0.0-38.6 [facility] Comment on above: Result Comment: Siem BeiBeiaur Immunochemiluminometric Methodology (ICMA)Values obtained with different assay methods or kits cannotbe used interchangeably. Results cannot be interpreted asabsolute evidence of the presence or absence of malignantdisease. Performed By: #### L 3100.2300, L3100.5000, L3100.5030, L3100.5040, L100.0100 ####[facility] [address] [place], [place], [address] Cancer Antigen 125on 025 CA 125 119.0 U/mL High 0.0-38.1 [facility] Comment on above: Result Comment: Vputi Electrochemiluminescence Immunoassay(ECLIA)Values obtained with different assay methods or kits cannotbe used interchangeably. Results cannot be interpreted asabsolute evidence of the presence or absence of malignantdisease. Performed By: #### L 3100.2300, L3100.5000, L3100.5030, L3100.5040, L100.0100 ####[facility] [address] [place], [place], [address] Carcinoembryonic Antigenon 0 - CEA 21.1 ng/mL High 0.0-4.7 [facility] Comment on above: Result Comment: Nons mokers <3.9 Smokers <5.6[employer] Electrochemiluminescence Immunoassay(ECLIA)Values obtained with different assay methods or kitscannot be used interchangeably. Results cannot beinterpreted as absolute evidence of the presence orabsence of malignant disease. Performed By: #### L 3100.2300, L3100.5000, L3100.5030, L3100.5040, L100.0100 ####[facility] [address] [place], [place], [id number] Absolute lymphocyte countOrd ered By: Myron Kilgoreamerica on 05-02-2025 Lymphocytes Auto (Unsp spec) [#/Vol] 0.95 10*3/uL 0.83-4.51 [facility] Absolute neutrophil countOrd ered By: Myron Kilgore on 05-02-2025 Neutrophils (Bld) [#/Vol] 3.8 10*3/uL 2.0-7.7 [facility] Automated lymphocyte count a s percentage of total leukocytesOrdered By: Myron Karli on 05-02-2025 Lymphocytes/100 WBC Auto (Unsp spec) 17.0 % Low 19-41 [facility] Basophil percentageOrdered B y: Myron Kilgoreamerica on 05-02-2025 Basophils/100 WBC (Bld) 0.7 % 0-1 [facility] CBC W/Diff, Automatedon 04-13 Absolute Lymph 0.95 X10 3/uL Normal 0.83-4.51 [facility] Comment on above: Performed By: #### L 3100.2300, L3100.5000, L3100.5030, L3100.5040, L100.0100 ####[facility] [address] [place], [address] Absolute Neut 3.8 X10 3/uL Normal 2.0-7.7 [facility] Comment on above: Performed By: #### L 3100.2300, L3100.5000, L3100.5030, L3100.5040, L100.0100 ####[facility] [address] [place], [address] Basophils/100 WBC (Bld) 0.7 % Normal 0-1 [facility] Comment on above: Performed By: #### L 3100.2300, L3100.5000, L3100.5030, L3100.5040, L100.0100 ####[facility] [address] [place], [address] Eosinophils/100 WBC (Bld) 4.3 % Normal 0-5 [facility] Comment on above: Performed By: #### L 3100.2300, L3100.5000, L3100.5030, L3100.5040, L100.0100 ####[facility] [address] [place], [address] Erythrocyte distribution width (RBC) [Ratio] 13.2 % Normal 11.6-14.6 [facility] Comment on above: Performed By: #### L 3100.2300, L3100.5000, L3100.5030, L3100.5040, L100.0100 ####[facility] [address] [place], [address] Hematocrit (Bld) [Volume fraction] 31.1 % Low 37-47 [facility] Comment on above: Performed By: #### L 3100.2300, L3100.5000, L3100.5030, L3100.5040, L100.0100 ####[facility] [address] [place], [address] Hemoglobin (Bld) [Mass/Vol] 10.8 g/dL Low 12.0-15.0 [facility] Comment on above: Performed By: #### L 3100.2300, L3100.5000, L3100.5030, L3100.5040, L100.0100 ####[facility] [address] [place], [address] IG% 0.500 Normal 0.0-0.9 [facility] Comment on above: Result Comment: IG% - Immature Granulocytes (promyelocytes, myelocytes andmetamyelocytes) > 1% indicates that a LEFT SHIFT is Present. Performed By: #### L 3100.2300, L3100.5000, L3100.5030, L3100.5040, L100.0100 ####[facility] [address] [place], [address] Lymphocytes/100 WBC (Bld) 17.0 % Low 19-41 [facility] Comment on above: Performed By: #### L 3100.2300, L3100.5000, L3100.5030, L3100.5040, L100.0100 ####[facility] [address] [place], [address] MCH (RBC) [Entitic mass] 34.2 pg High 27.0-32.0 [facility] Comment on above: Performed By: #### L 3100.2300, L3100.5000, L3100.5030, L3100.5040, L100.0100 ####[facility] [address] [place], [address] MCHC (RBC) [Mass/Vol] 34.7 g/dL Normal 32-36 [facility] Comment on above: Performed By: #### L 3100.2300, L3100.5000, L3100.5030, L3100.5040, L100.0100 ####[facility] [address] [place], [address] MCV (RBC) [Entitic vol] 98.4 fL Normal 81-99 [facility] Comment on above: Performed By: #### L 3100.2300, L3100.5000, L3100.5030, L3100.5040, L100.0100 ####[facility] [address] [place], [address] Monocytes/100 WBC (Bld) 9.1 % Normal 0-10 [facility] Comment on above: Performed By: #### L 3100.2300, L3100.5000, L3100.5030, L3100.5040, L100.0100 ####[facility] [address] [place], [address] Neutrophils/100 WBC (Bld) 68.4 % Normal 47-70 [facility] Comment on above: Performed By: #### L 3100.2300, L3100.5000, L3100.5030, L3100.5040, L100.0100 ####[facility] [address] [place], [address] Nucleated RBC (Bld) [#/Vol] 0 10*3/uL Normal 0-5 [facility] Comment on above: Performed By: #### L 3100.2300, L3100.5000, L3100.5030, L3100.5040, L100.0100 ####[facility] [address] [place], [address] Platelet mean volume (Bld) [Entitic vol] 9.6 fL Normal 6.2-12.0 [facility] Comment on above: Performed By: #### L 3100.2300, L3100.5000, L3100.5030, L3100.5040, L100.0100 ####[facility] [address] [place], [address] Platelets (Bld) [#/Vol] 179 10*3/uL Normal 150-450 [facility] Comment on above: Performed By: #### L 3100.2300, L3100.5000, L3100.5030, L3100.5040, L100.0100 ####[facility] [address] [place], [address] RBC (Bld) [#/Vol] 3.16 10*6/uL Low 4.2-5.4 [facility] Comment on above: Performed By: #### L 3100.2300, L3100.5000, L3100.5030, L3100.5040, L100.0100 ####[facility] [address] [place], [address] RDW SD 47.2 fl High 35.1-43.9 [facility] Comment on above: Performed By: #### L 3100.2300, L3100.5000, L3100.5030, L3100.5040, L100.0100 ####[facility] [address] [place], [address] WBC (Bld) [#/Vol] 5.6 10*3/uL Normal 4.4-11.0 [facility] Comment on above: Performed By: #### L 3100.2300, L3100.5000, L3100.5030, L3100.5040, L100.0100 ####[facility] [address] [place], [address] Comprehensive Metabolic Prof [facility] 05-02-2025 Albumin [Mass/Vol] 3.7 g/dL Normal 3.4-4.8 [facility] Comment on above: Performed By: #### L 500.4050 ####[facility] [address] [place], [address] Albumin/Globulin [Mass ratio] 1.2 {ratio} Normal 0.9-2.4 [facility] Comment on above: Performed By: #### L 500.4050 ####[facility] [address] [place], [address] ALK PHOS 182 U/L High 35-104 [facility] Comment on above: Performed By: #### L 500.4050 ####[facility] [address] [place], [address] ALT [Catalytic activity/Vol] 26 U/L Normal <=34 [facility] Comment on above: Performed By: #### L 500.4050 ####[facility] [address] [place], [address] AST [Catalytic activity/Vol] 40 U/L High <=31 [facility] Comment on above: Performed By: #### L 500.4050 ####[facility] [address] [place], [address] Bilirubin [Mass/Vol] 0.25 mg/dL Normal 0.00-1.30 [facility] Comment on above: Performed By: #### L 500.4050 ####[facility] [address] [place], [address] BUN/CRE 20.6 RATIO High 10-20 [facility] Comment on above: Performed By: #### L 500.4050 ####[facility] [address] [place], [address] Calcium [Mass/Vol] 9.0 mg/dL Normal 7.6-11.0 [facility] Comment on above: Performed By: #### L 500.4050 ####[facility] [address] [place], [address] Chloride [Moles/Vol] 102 mmol/L Normal 98-108 [facility] Comment on above: Performed By: #### L 500.4050 ####[facility] [address] [place], [address] CO2 [Moles/Vol] 26.2 mmol/L Normal 21.0-32.0 [facility] Comment on above: Performed By: #### L 500.4050 ####[facility] [address] [place], [address] Creatinine [Mass/Vol] 1.21 mg/dL High 0.70-1.20 [facility] Comment on above: Performed By: #### L 500.4050 ####[facility] [address] [place], [address] ECRCL 50.74 ml/min Normal 50-250 [facility] Comment on above: Performed By: #### L 500.4050 ####[facility] [address] [place], [address] GAP 12 Normal 5-15 [facility] Comment on above: Performed By: #### L 500.4050 ####[facility] [address] [place], [address] GFR/1.73 sq M.predicted among non-blacks MDRD (S/P/Bld) [Vol rate/Area] 48 mL/min/{1.73_m2} Low >60 [facility] Comment on above: Result Comment: mL/m in/1.73m2 CKD-EPI Creatinine Equation (2020) Performed By: #### L 500.4050 ####[facility] [address] [place], [address] Globulin (S) [Mass/Vol] 3.0 g/dL Normal 2.2-4.2 [facility] Comment on above: Performed By: #### L 500.4050 ####[facility] [address] [place], [address] Glucose [Mass/Vol] 133 mg/dL High 70-99 [facility] Comment on above: Performed By: #### L 500.4050 ####[facility] [address] [place], [address] Potassium [Moles/Vol] 4.3 mmol/L Normal 3.3-5.1 [facility] Comment on above: Performed By: #### L 500.4050 ####[facility] [address] [place], [place], [address] Sodium [Moles/Vol] 140 mmol/L Normal 133-145 [facility] Comment on above: Performed By: #### L 500.4050 ####[facility] [address] [place], [place], [address] T PROT 6.7 g/dL Normal 5.9-8.4 [facility] Comment on above: Performed By: #### L 500.4050 ####[facility] [address] [place], [place], [address] Urea nitrogen [Mass/Vol] 25 mg/dL High 4-19 [facility] Comment on above: Performed By: #### L 500.4050 ####[facility] [address] [place], [place], [address] Eosinophil percentageOrdered By: Myron Calvillo on 05-02-2025 Eosinophils/100 WBC (Bld) 4.3 % 0-5 [facility] Erythrocyte distribution wid th ratioOrdered By: Myron Calvillo on 05-02-2025 Erythrocyte distribution width (RBC) [Ratio] 13.2 % 11.6-14.6 [facility] Erythrocyte distribution wid th standard deviationOrdered By: Myron Calvillo on 05-02-2025 Erythrocyte distribution width (RBC) [Ratio] 47.2 fl High 35.1-43.9 [facility] Hematocrit Auto (Bld) [Volum e fraction]Ordered By: Myron Calvillo on 05-02-2025 Hematocrit (Bld) [Volume fraction] 31.1 % Low 37-47 [facility] Hemoglobin measurementOrdere d By: Myron Calvillo on 05-02-2025 Hemoglobin (Bld) [Mass/Vol] 10.8 g/dL Low 12.0-15.0 [facility] Immature granulocytes/100 WB C Auto (Bld)Ordered By: Myron Calvillo on 05-02-2025 Immature granulocytes/100 WBC (Bld) 0.500 % 0.0-0.9 [facility] Comment on above: IG% - Immature Granu locytes (promyelocytes, myelocytes and metamyelocytes) > 1% indicates that a LEFT SHIFT is Present. MCV (mean corpuscular volume ) determinationOrdered By: Myron Calvillo on 05-02-2025 MCV (RBC) [Entitic vol] 98.4 fL 81-99 [facility] Mean corpuscular hemoglobin (MCH) determinationOrdered By: Myron Calvillo on 05-02-2025 MCH (RBC) [Entitic mass] 34.2 pg High 27.0-32.0 [facility] Mean corpuscular hemoglobin concentration (MCHC) determinationOrdered By: Myron Calvillo on 05-02-2025 MCHC (RBC) [Mass/Vol] 34.7 g/dL 32-36 [facility] Mean platelet volume determi nationOrdered By: Myron Calvillo on 05-02-2025 Platelet mean volume (Bld) [Entitic vol] 9.6 fL 6.2-12.0 [facility] Monocyte percentageOrdered B y: Myron Calvillo on 05-02-2025 Monocytes/100 WBC (Bld) 9.1 % 0-10 [facility] Neutrophil percentageOrdered By: Myron Calvillo on 05-02-2025 Neutrophils/100 WBC (Bld) 68.4 % 47-70 [facility] Nucleated red blood cell per centageOrdered By: Myron Calvillo on 05-02-2025 Nucleated RBC/100 WBC (Bld) [Ratio] 0 % 0-5 [facility] Oncology Visit Reporton 04-13 Oncology Visit Report Normal [facility] Platelet countOrdered By: Destinee Calvillo on 05-02-2025 Platelets (Bld) [#/Vol] 179 10*3/uL 150-450 [facility] RBC Auto (Bld) [#/Vol]Ordere d By: Myron Calvillo on 05-02-2025 RBC (Bld) [#/Vol] 3.16 10*6/uL Low 4.2-5.4 [facility] White blood cell (WBC) count Ordered By: Myron Calvillo on 05-02-2025 WBC (Bld) [#/Vol] 5.6 10*3/uL 4.4-11.0 [facility] Oncology Visit Reporton 03-13 Oncology Visit Report Normal [facility] Oncology Visit Reporton 03-12 Oncology Visit Report Normal [facility] CA 15-3on 03-15-2025 CA 15-3 26.7 U/mL Abnormal 0.0-25.0 [facility] Comment on above: Result Comment: Vputi Electrochemiluminescence Immunoassay(ECLIA)Values obtained with different assay methods or kits cannotbe used interchangeably. Results cannot be interpreted asabsolute evidence of the presence or absence of malignantdisease.Performed at: [facility] [id number] Director: Reese Willingham PhD, Phone: [phone] Performed By: #### L 3100.5040, L500.4050, L3100.5030, L100.0100 ####[facility] [address] [facility] [place], [place], [address] CA 27.29on 03-15-2025 CA 27.29 33.5 U/mL Normal 0.0-38.6 [facility] Comment on above: Result Comment: Ubersenseaur Immunochemiluminometric Methodology (ICMA)Values obtained with different assay methods or kits cannotbe used interchangeably. Results cannot be interpreted asabsolute evidence of the presence or absence of malignantdisease. Performed By: #### L 3100.5040, L500.4050, L3100.5030, L100.0100 ####[facility] [address] [place], [place], [address] Absolute lymphocyte countOrd ered By: Sultana Finn on 03-14-2025 Lymphocytes Auto (Unsp spec) [#/Vol] 1.04 10*3/uL 0.83-4.51 [facility] Absolute neutrophil countOrd ered By: Sultana Finn on 03-14-2025 Neutrophils (Bld) [#/Vol] 3.3 10*3/uL 2.0-7.7 [facility] Anion gap in Serum or Plasma Ordered By: Sultana Finn on 03-14-2025 Anion gap [Moles/Vol] 13 mmol/L 5- [facility] Automated lymphocyte count a s percentage of total leukocytesOrdered By: Sultana Finn on 03-14-2025 Lymphocytes/100 WBC Auto (Unsp spec) 20.0 % 19- [facility] BUN/creatinine ratioOrdered By: Sultana Finn on 03-14-2025 Urea nitrogen/Creatinine [Mass ratio] 18.2 mg/mg 10-20 [facility] Basophil percentageOrdered B y: Sultana Finn on 03-14-2025 Basophils/100 WBC (Bld) 0.8 % 0-1 [facility] Bilirubin, totalOrdered By: Sultana Finn on 03-14-2025 Bilirubin [Mass/Vol] 0.39 mg/dL 0.00-1.30 [facility] CA 15-3Ordered By: Sultana dumont on 03-14-2025 CA 15-3 26.7 U/mL High 0.0-25.0 [facility] Comment on above: [employer] El ectrochemiluminescence Immunoassay(ECLIA)Values obtained with different assay methods or kits cannotbe used interchangeably. Results cannot be interpreted asabsolute evidence of the presence or absence of malignantdisease.Performed at: [address] [id number] Director: Reese Willingham PhD, Phone: [phone] CA 27.29Ordered By: Sultana butler on 03-14-2025 CA 27.29 33.5 U/mL 0.0-38.6 [facility] Comment on above: [employer] 170 Systemsaur Immu nochemiluminometric Methodology (ICMA)Values obtained with different assay methods or kits cannotbe used interchangeably. Results cannot be interpreted asabsolute evidence of the presence or absence of malignantdisease. CBC W/Diff, Automatedon Absolute Lymph 1.04 X10 3/uL Normal 0.83-4.51 [facility] Comment on above: Performed By: #### L 3100.5040, L500.4050, L3100.5030, L100.0100 ####[facility] [address] [place], [address] Absolute Neut 3.3 X10 3/uL Normal 2.0-7.7 [facility] Comment on above: Performed By: #### L 3100.5040, L500.4050, L3100.5030, L100.0100 ####[facility] [address] [place], [address] Basophils/100 WBC (Bld) 0.8 % Normal 0-1 [facility] Comment on above: Performed By: #### L 3100.5040, L500.4050, L3100.5030, L100.0100 ####[facility] [address] [place], [address] Eosinophils/100 WBC (Bld) 4.8 % Normal 0-5 [facility] Comment on above: Performed By: #### L 3100.5040, L500.4050, L3100.5030, L100.0100 ####[facility] [address] [place], [address] Erythrocyte distribution width (RBC) [Ratio] 13.5 % Normal 11.6-14.6 [facility] Comment on above: Performed By: #### L 3100.5040, L500.4050, L3100.5030, L100.0100 ####[facility] [address] [place], [address] Hematocrit (Bld) [Volume fraction] 33.0 % Low 37-47 [facility] Comment on above: Performed By: #### L 3100.5040, L500.4050, L3100.5030, L100.0100 ####[facility] [address] [place], [address] Hemoglobin (Bld) [Mass/Vol] 11.7 g/dL Low 12.0-15.0 [facility] Comment on above: Performed By: #### L 3100.5040, L500.4050, L3100.5030, L100.0100 ####[facility] [address] [place], [address] IG% 1.000 High 0.0-0.9 [facility] Comment on above: Result Comment: IG% - Immature Granulocytes (promyelocytes, myelocytes andmetamyelocytes) > 1% indicates that a LEFT SHIFT is Present. Performed By: #### L 3100.5040, L500.4050, L3100.5030, L100.0100 ####[facility] [address] [place], [address] Lymphocytes/100 WBC (Bld) 20.0 % Normal 19-41 [facility] Comment on above: Performed By: #### L 3100.5040, L500.4050, L3100.5030, L100.0100 ####[facility] [address] [place], [address] MCH (RBC) [Entitic mass] 34.8 pg High 27.0-32.0 [facility] Comment on above: Performed By: #### L 3100.5040, L500.4050, L3100.5030, L100.0100 ####[facility] [address] [place], [address] MCHC (RBC) [Mass/Vol] 35.5 g/dL Normal 32-36 [facility] Comment on above: Performed By: #### L 3100.5040, L500.4050, L3100.5030, L100.0100 ####[facility] [address] [place], [address] MCV (RBC) [Entitic vol] 98.2 fL Normal 81-99 [facility] Comment on above: Performed By: #### L 3100.5040, L500.4050, L3100.5030, L100.0100 ####[facility] [address] [place], [address] Monocytes/100 WBC (Bld) 9.4 % Normal 0-10 [facility] Comment on above: Performed By: #### L 3100.5040, L500.4050, L3100.5030, L100.0100 ####[facility] [address] [place], [address] Neutrophils/100 WBC (Bld) 64.0 % Normal 47-70 [facility] Comment on above: Performed By: #### L 3100.5040, L500.4050, L3100.5030, L100.0100 ####[facility] [address] [place], [address] Nucleated RBC (Bld) [#/Vol] 0 10*3/uL Normal 0-5 [facility] Comment on above: Performed By: #### L 3100.5040, L500.4050, L3100.5030, L100.0100 ####[facility] [address] [place], [address] Platelet mean volume (Bld) [Entitic vol] 9.5 fL Normal 6.2-12.0 [facility] Comment on above: Performed By: #### L 3100.5040, L500.4050, L3100.5030, L100.0100 ####[facility] [address] [place], [address] Platelets (Bld) [#/Vol] 193 10*3/uL Normal 150-450 [facility] Comment on above: Performed By: #### L 3100.5040, L500.4050, L3100.5030, L100.0100 ####[facility] [address] [place], [address] RBC (Bld) [#/Vol] 3.36 10*6/uL Low 4.2-5.4 [facility] Comment on above: Performed By: #### L 3100.5040, L500.4050, L3100.5030, L100.0100 ####[facility] [address] [place], [address] RDW SD 48.7 fl High 35.1-43.9 [facility] Comment on above: Performed By: #### L 3100.5040, L500.4050, L3100.5030, L100.0100 ####[facility] [address] [place], [address] WBC (Bld) [#/Vol] 5.2 10*3/uL Normal 4.4-11.0 [facility] Comment on above: Performed By: #### L 3100.5040, L500.4050, L3100.5030, L100.0100 ####[facility] [address] [place], [address] Carbon dioxide, total [Moles /volume] in Central venous bloodOrdered By: Sultana Finn on 03-14-2025 CO2 [Moles/Vol] 26.1 mmol/L 21.0-32.0 [facility] Chloride assayOrdered By: Saurabh Finn on 03-14-2025 Chloride [Moles/Vol] 100 mmol/L 98-108 [facility] Comprehensive Metabolic Prof ilon 03-14-2025 Albumin [Mass/Vol] 3.7 g/dL Normal 3.4-4.8 [facility] Comment on above: Performed By: #### L 3100.5040, L500.4050, L3100.5030, L100.0100 ####[facility] [address] [place], [address] Albumin/Globulin [Mass ratio] 1.3 {ratio} Normal 0.9-2.4 [facility] Comment on above: Performed By: #### L 3100.5040, L500.4050, L3100.5030, L100.0100 ####[facility] [address] [place], [address] ALK PHOS 181 U/L High 35-104 [facility] Comment on above: Performed By: #### L 3100.5040, L500.4050, L3100.5030, L100.0100 ####[facility] [address] [place], [address] ALT [Catalytic activity/Vol] 32 U/L Normal <=34 [facility] Comment on above: Performed By: #### L 3100.5040, L500.4050, L3100.5030, L100.0100 ####[facility] [address] [place], [address] AST [Catalytic activity/Vol] 42 U/L High <=31 [facility] Comment on above: Performed By: #### L 3100.5040, L500.4050, L3100.5030, L100.0100 ####[facility] [address] [place], [address] Bilirubin [Mass/Vol] 0.39 mg/dL Normal 0.00-1.30 [facility] Comment on above: Performed By: #### L 3100.5040, L500.4050, L3100.5030, L100.0100 ####[facility] [address] [place], [address] BUN/CRE 18.2 RATIO Normal 10-20 [facility] Comment on above: Performed By: #### L 3100.5040, L500.4050, L3100.5030, L100.0100 ####[facility] [address] [place], [address] Calcium [Mass/Vol] 9.8 mg/dL Normal 7.6-11.0 [facility] Comment on above: Performed By: #### L 3100.5040, L500.4050, L3100.5030, L100.0100 ####[facility] [address] [place], [address] Chloride [Moles/Vol] 100 mmol/L Normal 98-108 [facility] Comment on above: Performed By: #### L 3100.5040, L500.4050, L3100.5030, L100.0100 ####[facility] [address] [place], [address] CO2 [Moles/Vol] 26.1 mmol/L Normal 21.0-32.0 [facility] Comment on above: Performed By: #### L 3100.5040, L500.4050, L3100.5030, L100.0100 ####[facility] [address] [place], [address] Creatinine [Mass/Vol] 1.05 mg/dL Normal 0.70-1.20 [facility] Comment on above: Performed By: #### L 3100.5040, L500.4050, L3100.5030, L100.0100 ####[facility] [address] [place], [address] ECRCL 59.00 ml/min Normal 50-250 [facility] Comment on above: Performed By: #### L 3100.5040, L500.4050, L3100.5030, L100.0100 ####[facility] [address] [place], [address] GAP 13 Normal 5-15 [facility] Comment on above: Performed By: #### L 3100.5040, L500.4050, L3100.5030, L100.0100 ####[facility] [address] [place], [address] GFR/1.73 sq M.predicted among non-blacks MDRD (S/P/Bld) [Vol rate/Area] 56 mL/min/{1.73_m2} Low >60 [facility] Comment on above: Result Comment: mL/m in/1.73m2 CKD-EPI Creatinine Equation (2020) Performed By: #### L 3100.5040, L500.4050, L3100.5030, L100.0100 ####[facility] [address] [place], [address] Globulin (S) [Mass/Vol] 2.9 g/dL Normal 2.2-4.2 [facility] Comment on above: Performed By: #### L 3100.5040, L500.4050, L3100.5030, L100.0100 ####[facility] [address] [place], [address] Glucose [Mass/Vol] 185 mg/dL High 70-99 [facility] Comment on above: Performed By: #### L 3100.5040, L500.4050, L3100.5030, L100.0100 ####[facility] [address] [place], [address] Potassium [Moles/Vol] 3.9 mmol/L Normal 3.3-5.1 [facility] Comment on above: Result Comment: Hemo lysis present, Results??could be affected.?? Performed By: #### L 3100.5040, L500.4050, L3100.5030, L100.0100 ####[facility] [address] [place], [address] Sodium [Moles/Vol] 139 mmol/L Normal 133-145 [facility] Comment on above: Performed By: #### L 3100.5040, L500.4050, L3100.5030, L100.0100 ####[facility] [address] [place], [place], [id number] T PROT 6.7 g/dL Normal 5.9-8.4 [facility] Comment on above: Performed By: #### L 3100.5040, L500.4050, L3100.5030, L100.0100 ####[facility] [address] [place], [address] Urea nitrogen [Mass/Vol] 19 mg/dL Normal 4-19 [facility] Comment on above: Performed By: #### L 3100.5040, L500.4050, L3100.5030, L100.0100 ####[facility] [address] [place], [place], [id number]) Eosinophil percentageOrdered By: Sultana Finn on 03-14-2025 Eosinophils/100 WBC (Bld) 4.8 % 0-5 [facility] Erythrocyte distribution wid th ratioOrdered By: Sultana Finn on 03-14-2025 Erythrocyte distribution width (RBC) [Ratio] 13.5 % 11.6-14.6 [facility] Erythrocyte distribution wid th standard deviationOrdered By: Sultana Finn on 03-14-2025 Erythrocyte distribution width (RBC) [Ratio] 48.7 fl High 35.1-43.9 [facility] Glomerular filtration rate ( GFR) estimation/1.73 sq m using serum, plasma, or whole bOrdered By: Sultana Finn on 03-14-2025 GFR/1.73 sq M.predicted among non-blacks MDRD (S/P/Bld) [Vol rate/Area] 56 mL/min/{1.73_m2} Low >60 [facility] Comment on above: mL/min/1.73m2 CKD-EP I Creatinine Equation (2020) Hematocrit Auto (Bld) [Volum e fraction]Ordered By: Sultana Finn on 03-14-2025 Hematocrit (Bld) [Volume fraction] 33.0 % Low 37-47 [facility] Hemoglobin measurementOrdere d By: Sultana Finn on 03-14-2025 Hemoglobin (Bld) [Mass/Vol] 11.7 g/dL Low 12.0-15.0 [facility] Immature granulocytes/100 WB C Auto (Bld)Ordered By: Sultana Finn on 03-14-2025 Immature granulocytes/100 WBC (Bld) 1.000 % High 0.0-0.9 [facility] Comment on above: IG% - Immature Granu locytes (promyelocytes, myelocytes and metamyelocytes) > 1% indicates that a LEFT SHIFT is Present. Laboratory - Chemistry and C hemistry - challengeOrdered By: Sultana Finn on 03-14-2025 AST [Catalytic activity/Vol] 42 U/L High <32 [facility] MCV (mean corpuscular volume ) determinationOrdered By: Sultana Finn on 03-14-2025 MCV (RBC) [Entitic vol] 98.2 fL 81-99 [facility] Mean corpuscular hemoglobin (MCH) determinationOrdered By: Sultana Finn on 03-14-2025 MCH (RBC) [Entitic mass] 34.8 pg High 27.0-32.0 [facility] Mean corpuscular hemoglobin concentration (MCHC) determinationOrdered By: Sultana EspañaAakash on 03-14-2025 MCHC (RBC) [Mass/Vol] 35.5 g/dL 32-36 [facility] Mean platelet volume determi nationOrdered By: Sultana EspañaAakash on 03-14-2025 Platelet mean volume (Bld) [Entitic vol] 9.5 fL 6.2-12.0 [facility] Monocyte percentageOrdered B y: Sultana Finn on 03-14-2025 Monocytes/100 WBC (Bld) 9.4 % 0-10 [facility] Neutrophil percentageOrdered By: Sultana EspañaAakash on 03-14-2025 Neutrophils/100 WBC (Bld) 64.0 % 47-70 [facility] Nucleated red blood cell per centageOrdered By: Sultana EspañaAakash on 03-14-2025 Nucleated RBC/100 WBC (Bld) [Ratio] 0 % 0-5 [facility] Oncology Visit Reporton 07-0 Oncology Visit Report Normal [facility] Platelet countOrdered By: Saurabh Finn on 03-14-2025 Platelets (Bld) [#/Vol] 193 10*3/uL 150-450 [facility] Potassium measurement (mass/ volume)Ordered By: Sultana Finn on 03-14-2025 Potassium (Unsp spec) [Mass/Vol] 3.9 mmol/L 3.3-5.1 [facility] Comment on above: Hemolysis present, R esults could be affected. RBC Auto (Bld) [#/Vol]Ordere d By: Sultana Finn on 03-14-2025 RBC (Bld) [#/Vol] 3.36 10*6/uL Low 4.2-5.4 [facility] Radiation Oncology Visiton 0 03-14-2025 Radiation Oncology Visit Normal [facility] Serum creatinine measurement (mass/volume)Ordered By: Sultana Finn on 03-14-2025 Creatinine [Mass/Vol] 1.05 mg/dL 0.70-1.20 [facility] Serum globulin measurementOr dered By: Sultana Finn on 03-14-2025 Globulin (S) [Mass/Vol] 2.9 g/dL 2.2-4.2 [facility] Serum glucose measurement (m ass/volume)Ordered By: Sultana Finn on 03-14-2025 Glucose [Mass/Vol] 185 mg/dL High 70-99 [facility] Serum or plasma alanine skinner otransferase (ALT) measurementOrdered By: Sultana Finn on 03-14-2025 ALT [Catalytic activity/Vol] 32 U/L <35 [facility] Serum or plasma albumin amanda urement (mass/volume)Ordered By: Sultana Finn on 03-14-2025 Albumin [Mass/Vol] 3.7 g/dL 3.4-4.8 [facility] Serum or plasma albumin/glob ulin mass ratioOrdered By: Sultana Finn on 03-14-2025 Albumin/Globulin [Mass ratio] 1.3 {ratio} 0.9-2.4 [facility] Serum or plasma alkaline domenico sphatase measurementOrdered By: Sultana Finn on 03-14-2025 ALP [Catalytic activity/Vol] 181 U/L High 35-104 [facility] Serum or plasma calcium amanda urement (mass/volume)Ordered By: Sultana Finn on 03-14-2025 Calcium [Mass/Vol] 9.8 mg/dL 7.6-11.0 [facility] Serum or plasma urea nitroge n measurement (mass/volume)Ordered By: Sultana Finn on 03-14-2025 Urea nitrogen [Mass/Vol] 19 mg/dL 4-19 [facility] Sodium levelOrdered By: Sultana EspañaAakash on 03-14-2025 Sodium [Moles/Vol] 139 mmol/L 133-145 [facility] Total proteinOrdered By: Chaka Finn on 03-14-2025 Protein [Mass/Vol] 6.7 g/dL 5.9-8.4 [facility] White blood cell (WBC) count Ordered By: Sultana Finn on 03-14-2025 WBC (Bld) [#/Vol] 5.2 10*3/uL 4.4-11.0 [facility] CA 15-3on 02-15-2025 CA 15-3 27.3 U/mL Abnormal 0.0-25.0 [facility] Comment on above: Order Comment: ADD O N FROM TODAY, THANKS Result Comment: [employer] Electrochemiluminescence Immunoassay(ECLIA)Values obtained with different assay methods or kits cannotbe used interchangeably. Results cannot be interpreted asabsolute evidence of the presence or absence of malignantdisease.Performed at: [place] [id number] Director: Reese Willingham PhD, Phone: [phone] Performed By: #### L 2365.8700, L3414.1256 ####[facility] [address] [place], [place], [id number] CA 27.29on 02-15-2025 CA 27.29 35.2 U/mL Normal 0.0-38.6 [facility] Comment on above: Order Comment: ADD O N FROM TODAY, THANKS Result Comment: [employer] Immunochemiluminometric Methodology (ICMA)Values obtained with different assay methods or kits cannotbe used interchangeably. Results cannot be interpreted asabsolute evidence of the presence or absence of malignantdisease. Performed By: #### L 3100.5030, L3100.5040 ####[facility] [address] [place], [address] Absolute lymphocyte countOrd ered By: Myron Karli on 02-14-2025 Lymphocytes Auto (Unsp spec) [#/Vol] 0.69 10*3/uL Low 0.83-4.51 [facility] Absolute neutrophil countOrd ered By: Myron Magui on 02-14-2025 Neutrophils (Bld) [#/Vol] 0.9 10*3/uL Low 2.0-7.7 [facility] Anion gap in Serum or Plasma Ordered By: Myron Calvillo on 02-14-2025 Anion gap [Moles/Vol] 12 mmol/L 5-15 [facility] Automated lymphocyte count a s percentage of total leukocytesOrdered By: Myron Karli on 02-14-2025 Lymphocytes/100 WBC Auto (Unsp spec) 32.9 % 19-41 [facility] BUN/creatinine ratioOrdered By: Myron Karli on 02-14-2025 Urea nitrogen/Creatinine [Mass ratio] 22.3 mg/mg High 10-20 [facility] Basophil percentageOrdered B y: Myron Kilgore on 02-14-2025 Basophils/100 WBC (Bld) 2.4 % High 0-1 [facility] Bilirubin, totalOrdered By: [facility]ron [facility] on 02-14-2025 Bilirubin [Mass/Vol] 0.38 mg/dL 0.00-1.30 [facility] Blood polychromasia detectio n by light microscopyOrdered By: Myron Calvillo on 02-14-2025 Polychromasia LM Ql (Bld) 1+ [facility] CA 15-3Ordered By: Sultana dumont on 02-14-2025 CA 15-3 27.3 U/mL High 0.0-25.0 [facility] Comment on above: [employer] El ectrochemiluminescence Immunoassay(ECLIA)Values obtained with different assay methods or kits cannotbe used interchangeably. Results cannot be interpreted asabsolute evidence of the presence or absence of malignantdisease.Performed at: [facility] [address] [id number] Director: Resee Willingham PhD, Phone: [phone] CA 27.29Ordered By: Sultana butler on 02-14-2025 CA 27.29 35.2 U/mL 0.0-38.6 [facility] Comment on above: [employer] Immu nochemiluminometric Methodology (ICMA)Values obtained with different assay methods or kits cannotbe used interchangeably. Results cannot be interpreted asabsolute evidence of the presence or absence of malignantdisease. CBC W/Diff, Automatedon PLT EST A Normal ADEQ [facility] Comment on above: Performed By: #### L 504.2610, L500.4050, L100.0100 ####[facility] [address] [place], [address] POLYCHROMASIA 1+ Normal [facility] Comment on above: Performed By: #### L 504.2610, L500.4050, L100.0100 ####[facility] [address] [place], [address] Carbon dioxide, total [Moles /volume] in Central venous bloodOrdered By: Myron Calvillo on 02-14-2025 CO2 [Moles/Vol] 27.0 mmol/L 21.0-32.0 [facility] Chloride assayOrdered By: Destinee Calvillo on 02-14-2025 Chloride [Moles/Vol] 99 mmol/L 98-108 [facility] Comprehensive Metabolic Prof ilon 02-14-2025 Albumin [Mass/Vol] 3.8 g/dL Normal 3.4-4.8 [facility] Comment on above: Performed By: #### L 504.2610, L500.4050, L100.0100 ####[facility] [address], [address] Albumin/Globulin [Mass ratio] 1.4 {ratio} Normal 0.9-2.4 [facility] Comment on above: Performed By: #### L 504.2610, L500.4050, L100.0100 ####[facility] [address] [place], [address] ALK PHOS 160 U/L High 35-104 [facility] Comment on above: Performed By: #### L 504.2610, L500.4050, L100.0100 ####[facility] [address] [place], [address] ALT [Catalytic activity/Vol] 33 U/L Normal <=34 [facility] Comment on above: Performed By: #### L 504.2610, L500.4050, L100.0100 ####[facility] [address] [place], [address] AST [Catalytic activity/Vol] 59 U/L High <=31 [facility] Comment on above: Performed By: #### L 504.2610, L500.4050, L100.0100 ####[facility] [address] [place], [address] Bilirubin [Mass/Vol] 0.38 mg/dL Normal 0.00-1.30 [facility] Comment on above: Performed By: #### L 504.2610, L500.4050, L100.0100 ####[facility] [address] [place], [address] BUN/CRE 22.3 RATIO High 10-20 [facility] Comment on above: Performed By: #### L 504.2610, L500.4050, L100.0100 ####[facility] [address] [place], [address] Calcium [Mass/Vol] 9.6 mg/dL Normal 7.6-11.0 [facility] Comment on above: Performed By: #### L 504.2610, L500.4050, L100.0100 ####[facility] [address] [place], [address] Chloride [Moles/Vol] 99 mmol/L Normal 98-108 [facility] Comment on above: Performed By: #### L 504.2610, L500.4050, L100.0100 ####[facility] [address] [place], [address] CO2 [Moles/Vol] 27.0 mmol/L Normal 21.0-32.0 [facility] Comment on above: Performed By: #### L 504.2610, L500.4050, L100.0100 ####[facility] [address] [place], [address] Creatinine [Mass/Vol] 1.13 mg/dL Normal 0.70-1.20 [facility] Comment on above: Performed By: #### L 504.2610, L500.4050, L100.0100 ####[facility] [address] [place], [address] ECRCL 55.63 ml/min Normal 50-250 [facility] Comment on above: Performed By: #### L 504.2610, L500.4050, L100.0100 ####[facility] [address] [place], [address] GAP 12 Normal 5-15 [facility] Comment on above: Performed By: #### L 504.2610, L500.4050, L100.0100 ####[facility] [address] [place], [address] GFR/1.73 sq M.predicted among non-blacks MDRD (S/P/Bld) [Vol rate/Area] 52 mL/min/{1.73_m2} Low >60 [facility] Comment on above: Result Comment: mL/m in/1.73m2 CKD-EPI Creatinine Equation (2020) Performed By: #### L 504.2610, L500.4050, L100.0100 ####[facility] [address] [place], [address] Globulin (S) [Mass/Vol] 2.8 g/dL Normal 2.2-4.2 [facility] Comment on above: Performed By: #### L 504.2610, L500.4050, L100.0100 ####[facility] [address] [place], [address] Glucose [Mass/Vol] 160 mg/dL High 70-99 [facility] Comment on above: Performed By: #### L 504.2610, L500.4050, L100.0100 ####[facility] [address] [place], [address] Potassium [Moles/Vol] 4.2 mmol/L Normal 3.3-5.1 [facility] Comment on above: Performed By: #### L 504.2610, L500.4050, L100.0100 ####[facility] [address] [place], [address] Sodium [Moles/Vol] 139 mmol/L Normal 133-145 [facility] Comment on above: Performed By: #### L 504.2610, L500.4050, L100.0100 ####[facility] [address] [place], [address] T PROT 6.6 g/dL Normal 5.9-8.4 [facility] Comment on above: Performed By: #### L 504.2610, L500.4050, L100.0100 ####[facility] [address] [place], [address] Urea nitrogen [Mass/Vol] 25 mg/dL High 4-19 [facility] Comment on above: Performed By: #### L 504.2610, L500.4050, L100.0100 ####[facility] [address] [place], [address] Eosinophil percentageOrdered By: [facility] on 02-14-2025 Eosinophils/100 WBC (Bld) 5.7 % High 0-5 [facility] Erythrocyte distribution wid th ratioOrdered By: [facility] on 02-14-2025 Erythrocyte distribution width (RBC) [Ratio] 13.8 % 11.6-14.6 [facility] Erythrocyte distribution wid th standard deviationOrdered By: [facility] on 02-14-2025 Erythrocyte distribution width (RBC) [Ratio] 52.3 fl High 35.1-43.9 [facility] Glomerular filtration rate ( GFR) estimation/1.73 sq m using serum, plasma, or whole bOrdered By: [facility] on 02-14-2025 GFR/1.73 sq M.predicted among non-blacks MDRD (S/P/Bld) [Vol rate/Area] 52 mL/min/{1.73_m2} Low >60 [facility] Comment on above: mL/min/1.73m2 CKD-EP I Creatinine Equation (2020) Hematocrit Auto (Bld) [Volum e fraction]Ordered By: [facility] on 02-14-2025 Hematocrit (Bld) [Volume fraction] 32.2 % Low 37-47 [facility] Hemoglobin measurementOrdere d By: [facility] on 02-14-2025 Hemoglobin (Bld) [Mass/Vol] 11.1 g/dL Low 12.0-15.0 [facility] Immature granulocytes/100 WB C Auto (Bld)Ordered By: Myron [facility] on 02-14-2025 Immature granulocytes/100 WBC (Bld) 0.500 % 0.0-0.9 [facility] Comment on above: IG% - Immature Granu locytes (promyelocytes, myelocytes and metamyelocytes) > 1% indicates that a LEFT SHIFT is Present. LDHon 02-14-2025 LDH 196 U/L Normal 84-246 [facility] Comment on above: Order Comment: 1 Performed By: #### L 504.2610, L500.4050, L100.0100 ####[facility] [address] [place], [place], [id number] Laboratory - Chemistry and C hemistry - challengeOrdered By: Myron Calvillo on 02-14-2025 AST [Catalytic activity/Vol] 59 U/L High <32 [facility] Lactate dehydrogenase (LDH) measurementOrdered By: Myron Calvillo on 02-14-2025 LDH [Catalytic activity/Vol] 196 U/L 84-246 [facility] MCV (mean corpuscular volume ) determinationOrdered By: Myron Calvillo on 02-14-2025 MCV (RBC) [Entitic vol] 101.9 fL High 81-99 [facility] Mean corpuscular hemoglobin (MCH) determinationOrdered By: Myron Calvillo on 02-14-2025 MCH (RBC) [Entitic mass] 35.1 pg High 27.0-32.0 [facility] Mean corpuscular hemoglobin concentration (MCHC) determinationOrdered By: Myron Calvillo on 02-14-2025 MCHC (RBC) [Mass/Vol] 34.5 g/dL 32-36 [facility] Mean platelet volume determi nationOrdered By: Myron Calvillo on 02-14-2025 Platelet mean volume (Bld) [Entitic vol] 9.8 fL 6.2-12.0 [facility] Monocyte percentageOrdered B y: Myron Calvillo on 02-14-2025 Monocytes/100 WBC (Bld) 14.3 % High 0-10 [facility] Neutrophil percentageOrdered By: Myron Calvillo on 02-14-2025 Neutrophils/100 WBC (Bld) 44.2 % Low 47-70 [facility] Nucleated red blood cell per centageOrdered By: Myron Calvillo on 02-14-2025 Nucleated RBC/100 WBC (Bld) [Ratio] 1.0 % 0-5 [facility] Oncology Visit Reporton 06-0 Oncology Visit Report Normal [facility] Platelet countOrdered By: Destinee Calvillo on 02-14-2025 Platelets (Bld) [#/Vol] 161 10*3/uL 150-450 [facility] Platelet estimateOrdered By: Myron Calvillo on 02-14-2025 Platelets LM Ql (Bld) A ADEQ [facility] Potassium measurement (mass/ volume)Ordered By: Myron Calvillo on 02-14-2025 Potassium (Unsp spec) [Mass/Vol] 4.2 mmol/L 3.3-5.1 [facility] RBC Auto (Bld) [#/Vol]Ordere d By: Myron Calvillo on 02-14-2025 RBC (Bld) [#/Vol] 3.16 10*6/uL Low 4.2-5.4 [facility] Serum creatinine measurement (mass/volume)Ordered By: Myron Calvillo on 02-14-2025 Creatinine [Mass/Vol] 1.13 mg/dL 0.70-1.20 [facility] Serum globulin measurementOr dered By: Myron Calvillo on 02-14-2025 Globulin (S) [Mass/Vol] 2.8 g/dL 2.2-4.2 [facility] Serum glucose measurement (m ass/volume)Ordered By: Myron Calvillo on 02-14-2025 Glucose [Mass/Vol] 160 mg/dL High 70-99 [facility] Serum or plasma alanine skinner otransferase (ALT) measurementOrdered By: Myron Calvillo on 02-14-2025 ALT [Catalytic activity/Vol] 33 U/L <35 [facility] Serum or plasma albumin amanda urement (mass/volume)Ordered By: Myron Calvillo on 02-14-2025 Albumin [Mass/Vol] 3.8 g/dL 3.4-4.8 [facility] Serum or plasma albumin/glob ulin mass ratioOrdered By: Myron Calvillo on 02-14-2025 Albumin/Globulin [Mass ratio] 1.4 {ratio} 0.9-2.4 [facility] Serum or plasma alkaline domenico sphatase measurementOrdered By: Myron Calvillo on 02-14-2025 ALP [Catalytic activity/Vol] 160 U/L High 35-104 [facility] Serum or plasma calcium amanda urement (mass/volume)Ordered By: Myron Calvillo on 02-14-2025 Calcium [Mass/Vol] 9.6 mg/dL 7.6-11.0 [facility] Serum or plasma urea nitroge n measurement (mass/volume)Ordered By: Myron Calvillo on 02-14-2025 Urea nitrogen [Mass/Vol] 25 mg/dL High 4-19 [facility] Sodium levelOrdered By: Yaakov Calvillo on 02-14-2025 Sodium [Moles/Vol] 139 mmol/L 133-145 [facility] Total proteinOrdered By: Kavon Calvillo on 02-14-2025 Protein [Mass/Vol] 6.6 g/dL 5.9-8.4 [facility] White blood cell (WBC) count Ordered By: Myron Calvillo on 02-14-2025 WBC (Bld) [#/Vol] 2.1 10*3/uL Low 4.4-11.0 [facility] Radiation Oncology Visiton 0 02-12-2025 Radiation Oncology Visit Normal [facility] Radiation Oncology Visiton 0 02-11-2025 Radiation Oncology Visit Normal [facility] Radiation Oncology Visiton 0 01-24-2025 Radiation Oncology Visit Normal [facility] Absolute lymphocyte countOrd ered By: Myron Calvillo on 01-17-2025 Lymphocytes Auto (Unsp spec) [#/Vol] 0.70 10*3/uL Low 0.83-4.51 [facility] Absolute neutrophil countOrd ered By: Myron Calvillo on 01-17-2025 Neutrophils (Bld) [#/Vol] 1.2 10*3/uL Low 2.0-7.7 [facility] Anion gap in Serum or Plasma Ordered By: Myron Calvillo on 01-17-2025 Anion gap [Moles/Vol] 11 mmol/L 5- [facility] Automated lymphocyte count a s percentage of total leukocytesOrdered By: Myron Calvillo on 01-17-2025 Lymphocytes/100 WBC Auto (Unsp spec) 28.9 % 19- [facility] BUN/creatinine ratioOrdered By: Myron Calvillo on 01-17-2025 Urea nitrogen/Creatinine [Mass ratio] 16.4 mg/mg 10-20 [facility] Basophil percentageOrdered B y: Myron Calvillo on 01-17-2025 Basophils/100 WBC (Bld) 2.1 % High 0-1 [facility] Bilirubin, totalOrdered By: Myron Calvillo on 01-17-2025 Bilirubin [Mass/Vol] 0.34 mg/dL 0.00-1.30 [facility] CBC W/Diff, Automatedon Absolute Lymph 0.70 X10 3/uL Low 0.83-4.51 [facility] Comment on above: Performed By: #### L 500.4050, L100.0100 ####[facility] [address] [place], [address] Absolute Neut 1.2 X10 3/uL Low 2.0-7.7 [facility] Comment on above: Performed By: #### L 500.4050, L100.0100 ####[facility] [address] [place], [address] Basophils/100 WBC (Bld) 2.1 % High 0-1 [facility] Comment on above: Performed By: #### L 500.4050, L100.0100 ####[facility] [address] [place], [address] Eosinophils/100 WBC (Bld) 7.9 % High 0-5 [facility] Comment on above: Performed By: #### L 500.4050, L100.0100 ####[facility] [address] [place], [address] Erythrocyte distribution width (RBC) [Ratio] 13.8 % Normal 11.6-14.6 [facility] Comment on above: Performed By: #### L 500.4050, L100.0100 ####[facility] [address] [place], [address] Hematocrit (Bld) [Volume fraction] 30.8 % Low 37-47 [facility] Comment on above: Performed By: #### L 500.4050, L100.0100 ####[facility] [address] [place], [address] Hemoglobin (Bld) [Mass/Vol] 11.0 g/dL Low 12.0-15.0 [facility] Comment on above: Performed By: #### L 500.4050, L100.0100 ####[facility] [address] [place], [address] IG% 0.000 Normal 0.0-0.9 [facility] Comment on above: Result Comment: IG% - Immature Granulocytes (promyelocytes, myelocytes andmetamyelocytes) > 1% indicates that a LEFT SHIFT is Present. Performed By: #### L 500.4050, L100.0100 ####[facility] [address] [place], [address] Lymphocytes/100 WBC (Bld) 28.9 % Normal 19-41 [facility] Comment on above: Performed By: #### L 500.4050, L100.0100 ####[facility] [address] [place], [address] MCH (RBC) [Entitic mass] 35.7 pg High 27.0-32.0 [facility] Comment on above: Performed By: #### L 500.4050, L100.0100 ####[facility] [address] [place], [address] MCHC (RBC) [Mass/Vol] 35.7 g/dL Normal 32-36 [facility] Comment on above: Performed By: #### L 500.4050, L100.0100 ####[facility] [address] [place], [address] MCV (RBC) [Entitic vol] 100.0 fL High 81-99 [facility] Comment on above: Performed By: #### L 500.4050, L100.0100 ####[facility] [address] [place], [address] Monocytes/100 WBC (Bld) 13.6 % High 0-10 [facility] Comment on above: Performed By: #### L 500.4050, L100.0100 ####[facility] [address] [place], [address] Neutrophils/100 WBC (Bld) 47.5 % Normal 47-70 [facility] Comment on above: Performed By: #### L 500.4050, L100.0100 ####[facility] [address] [place], [address] Nucleated RBC (Bld) [#/Vol] 0 10*3/uL Normal 0-5 [facility] Comment on above: Performed By: #### L 500.4050, L100.0100 ####[facility] [address] [place], [address] Platelet mean volume (Bld) [Entitic vol] 9.7 fL Normal 6.2-12.0 [facility] Comment on above: Performed By: #### L 500.4050, L100.0100 ####[facility] [address] [place], [address] Platelets (Bld) [#/Vol] 145 10*3/uL Low 150-450 [facility] Comment on above: Performed By: #### L 500.4050, L100.0100 ####[facility] [address] [place], [address] RBC (Bld) [#/Vol] 3.08 10*6/uL Low 4.2-5.4 [facility] Comment on above: Performed By: #### L 500.4050, L100.0100 ####[facility] [address] [place], [address] RDW SD 49.9 fl High 35.1-43.9 [facility] Comment on above: Performed By: #### L 500.4050, L100.0100 ####[facility] [address] [place], [address] WBC (Bld) [#/Vol] 2.4 10*3/uL Low 4.4-11.0 [facility] Comment on above: Performed By: #### L 500.4050, L100.0100 ####[facility] [address] [place], [address] Carbon dioxide, total [Moles /volume] in Central venous bloodOrdered By: Myron Calvillo on 01-17-2025 CO2 [Moles/Vol] 25.5 mmol/L 21.0-32.0 [facility] Chloride assayOrdered By: Destinee Calvillo on 01-17-2025 Chloride [Moles/Vol] 102 mmol/L 98-108 [facility] Comprehensive Metabolic Prof ilon 01-17-2025 Albumin [Mass/Vol] 3.7 g/dL Normal 3.4-4.8 [facility] Comment on above: Performed By: #### L 500.4050, L100.0100 ####[facility] [address] [place], [address] Albumin/Globulin [Mass ratio] 1.3 {ratio} Normal 0.9-2.4 [facility] Comment on above: Performed By: #### L 500.4050, L100.0100 ####[facility] [address] [place], [address] ALK PHOS 132 U/L High 35-104 [facility] Comment on above: Performed By: #### L 500.4050, L100.0100 ####[facility] [address] [place], [address] ALT [Catalytic activity/Vol] 12 U/L Normal <=34 [facility] Comment on above: Performed By: #### L 500.4050, L100.0100 ####[facility] [address] [place], [address] AST [Catalytic activity/Vol] 33 U/L High <=31 [facility] Comment on above: Performed By: #### L 500.4050, L100.0100 ####[facility] [address] [place], [address] Bilirubin [Mass/Vol] 0.34 mg/dL Normal 0.00-1.30 [facility] Comment on above: Performed By: #### L 500.4050, L100.0100 ####[facility] [address] [place], [address] BUN/CRE 16.4 RATIO Normal 10-20 [facility] Comment on above: Performed By: #### L 500.4050, L100.0100 ####[facility] [address] [place], [address] Calcium [Mass/Vol] 9.6 mg/dL Normal 7.6-11.0 [facility] Comment on above: Performed By: #### L 500.4050, L100.0100 ####[facility] [address] [place], [address] Chloride [Moles/Vol] 102 mmol/L Normal 98-108 [facility] Comment on above: Performed By: #### L 500.4050, L100.0100 ####[facility] [address] [place], [address] CO2 [Moles/Vol] 25.5 mmol/L Normal 21.0-32.0 [facility] Comment on above: Performed By: #### L 500.4050, L100.0100 ####[facility] [address] [place], [address] Creatinine [Mass/Vol] 1.17 mg/dL Normal 0.70-1.20 [facility] Comment on above: Performed By: #### L 500.4050, L100.0100 ####[facility] [address] [place], [address] ECRCL 53.86 ml/min Normal 50-250 [facility] Comment on above: Performed By: #### L 500.4050, L100.0100 ####[facility] [address] [place], [address] GAP 11 Normal 5-15 [facility] Comment on above: Performed By: #### L 500.4050, L100.0100 ####[facility] [address] [place], [address] GFR/1.73 sq M.predicted among non-blacks MDRD (S/P/Bld) [Vol rate/Area] 50 mL/min/{1.73_m2} Low >60 [facility] Comment on above: Result Comment: mL/m in/1.73m2 CKD-EPI Creatinine Equation (2020) Performed By: #### L 500.4050, L100.0100 ####[facility] [address] [place], [address] Globulin (S) [Mass/Vol] 2.8 g/dL Normal 2.2-4.2 [facility] Comment on above: Performed By: #### L 500.4050, L100.0100 ####[facility] [address] [place], [address] Glucose [Mass/Vol] 178 mg/dL High 70-99 [facility] Comment on above: Performed By: #### L 500.4050, L100.0100 ####[facility] [address] [place], [address] Potassium [Moles/Vol] 4.2 mmol/L Normal 3.3-5.1 [facility] Comment on above: Performed By: #### L 500.4050, L100.0100 ####[facility] [address] [place], [address] Sodium [Moles/Vol] 139 mmol/L Normal 133-145 [facility] Comment on above: Performed By: #### L 500.4050, L100.0100 ####[facility] [address] [place], [address] T PROT 6.4 g/dL Normal 5.9-8.4 [facility] Comment on above: Performed By: #### L 500.4050, L100.0100 ####[facility] [address] [place], [address] Urea nitrogen [Mass/Vol] 19 mg/dL Normal 4-19 [facility] Comment on above: Performed By: #### L 500.4050, L100.0100 ####[facility] [address], [address] Eosinophil percentageOrdered By: Myron Calvillo on 01-17-2025 Eosinophils/100 WBC (Bld) 7.9 % High 0-5 [facility] Erythrocyte distribution wid th ratioOrdered By: Myron Calvillo on 01-17-2025 Erythrocyte distribution width (RBC) [Ratio] 13.8 % 11.6-14.6 [facility] Erythrocyte distribution wid th standard deviationOrdered By: Myron Calvillo on 01-17-2025 Erythrocyte distribution width (RBC) [Ratio] 49.9 fl High 35.1-43.9 [facility] Glomerular filtration rate ( GFR) estimation/1.73 sq m using serum, plasma, or whole bOrdered By: Myron Calvillo on 01-17-2025 GFR/1.73 sq M.predicted among non-blacks MDRD (S/P/Bld) [Vol rate/Area] 50 mL/min/{1.73_m2} Low >60 [facility] Comment on above: mL/min/1.73m2 CKD-EP I Creatinine Equation (2020) Hematocrit Auto (Bld) [Volum e fraction]Ordered By: Myron Calvillo on 01-17-2025 Hematocrit (Bld) [Volume fraction] 30.8 % Low 37-47 [facility] Hemoglobin measurementOrdere d By: Myron Calvillo on 01-17-2025 Hemoglobin (Bld) [Mass/Vol] 11.0 g/dL Low 12.0-15.0 [facility] Immature granulocytes/100 WB C Auto (Bld)Ordered By: Myron Calvillo on 01-17-2025 Immature granulocytes/100 WBC (Bld) 0.000 % 0.0-0.9 [facility] Comment on above: IG% - Immature Granu locytes (promyelocytes, myelocytes and metamyelocytes) > 1% indicates that a LEFT SHIFT is Present. Laboratory - Chemistry and C hemistry - challengeOrdered By: Myron Calvillo on 01-17-2025 AST [Catalytic activity/Vol] 33 U/L High <32 [facility] MCV (mean corpuscular volume ) determinationOrdered By: Myron Calvillo on 01-17-2025 MCV (RBC) [Entitic vol] 100.0 fL High 81-99 [facility] Mean corpuscular hemoglobin (MCH) determinationOrdered By: Myron Calvillo on 01-17-2025 MCH (RBC) [Entitic mass] 35.7 pg High 27.0-32.0 [facility] Mean corpuscular hemoglobin concentration (MCHC) determinationOrdered By: Myron Calvillo on 01-17-2025 MCHC (RBC) [Mass/Vol] 35.7 g/dL 32-36 [facility] Mean platelet volume determi nationOrdered By: Myron Calvillo on 01-17-2025 Platelet mean volume (Bld) [Entitic vol] 9.7 fL 6.2-12.0 [facility] Monocyte percentageOrdered B y: Myron Calvillo on 01-17-2025 Monocytes/100 WBC (Bld) 13.6 % High 0-10 [facility] Neutrophil percentageOrdered By: Myron Calvillo on 01-17-2025 Neutrophils/100 WBC (Bld) 47.5 % 47-70 [facility] Nucleated red blood cell per centageOrdered By: Myron Calvillo on 01-17-2025 Nucleated RBC/100 WBC (Bld) [Ratio] 0 % 0-5 [facility] Oncology Visit Reporton Oncology Visit Report Normal [facility] Platelet countOrdered By: Destinee Calvillo on 01-17-2025 Platelets (Bld) [#/Vol] 145 10*3/uL Low 150-450 [facility] Potassium measurement (mass/ volume)Ordered By: Myron Calvillo on 01-17-2025 Potassium (Unsp spec) [Mass/Vol] 4.2 mmol/L 3.3-5.1 [facility] RBC Auto (Bld) [#/Vol]Ordere d By: Myron Calvillo on 01-17-2025 RBC (Bld) [#/Vol] 3.08 10*6/uL Low 4.2-5.4 [facility] Serum creatinine measurement (mass/volume)Ordered By: Myron Calvillo on 01-17-2025 Creatinine [Mass/Vol] 1.17 mg/dL 0.70-1.20 [facility] Serum globulin measurementOr dered By: Myron Calvillo on 01-17-2025 Globulin (S) [Mass/Vol] 2.8 g/dL 2.2-4.2 [facility] Serum glucose measurement (m ass/volume)Ordered By: Myron Calvillo on 01-17-2025 Glucose [Mass/Vol] 178 mg/dL High 70-99 [facility] Serum or plasma alanine siknner otransferase (ALT) measurementOrdered By: Myron Calvillo on 01-17-2025 ALT [Catalytic activity/Vol] 12 U/L <35 [facility] Serum or plasma albumin aamnda urement (mass/volume)Ordered By: Myron Calvillo on 01-17-2025 Albumin [Mass/Vol] 3.7 g/dL 3.4-4.8 [facility] Serum or plasma albumin/glob ulin mass ratioOrdered By: Myron Calvillo on 01-17-2025 Albumin/Globulin [Mass ratio] 1.3 {ratio} 0.9-2.4 [facility] Serum or plasma alkaline domenico sphatase measurementOrdered By: Myron Calvillo on 01-17-2025 ALP [Catalytic activity/Vol] 132 U/L High 35-104 [facility] Serum or plasma calcium amanda urement (mass/volume)Ordered By: Myron Calvillo on 01-17-2025 Calcium [Mass/Vol] 9.6 mg/dL 7.6-11.0 [facility] Serum or plasma urea nitroge n measurement (mass/volume)Ordered By: Myron Calvillo on 01-17-2025 Urea nitrogen [Mass/Vol] 19 mg/dL 4-19 [facility] Sodium levelOrdered By: Yaakov Calvillo on 01-17-2025 Sodium [Moles/Vol] 139 mmol/L 133-145 [facility] Total proteinOrdered By: Kavon Calvillo on 01-17-2025 Protein [Mass/Vol] 6.4 g/dL 5.9-8.4 [facility] White blood cell (WBC) count Ordered By: Myron Calvillo on 01-17-2025 WBC (Bld) [#/Vol] 2.4 10*3/uL Low 4.4-11.0 [facility] PET/CT Tumor Base -Thigh Sub son 01-08-2025 PET/CT Tumor Base -Thigh Subs Normal [facility] CA 15-3on 12-21-2024 CA 15-3 28.8 U/mL Abnormal 0.0-25.0 [facility] Comment on above: Result Comment: Vputi Electrochemiluminescence Immunoassay(ECLIA)Values obtained with different assay methods or kits cannotbe used interchangeably. Results cannot be interpreted asabsolute evidence of the presence or absence of malignantdisease.Performed at: [facility] [place] [place] [id number] Director: Reese Willingham PhD, Phone: [phone] Performed By: #### L 100.0100, L3100.5040, L3100.5030, L500.4050, L3100.2300 ####[facility] [address] [place], [address] CA 27.29on 12-21-2024 CA 27.29 33.5 U/mL Normal 0.0-38.6 [facility] Comment on above: Result Comment: Ubersenseaur Immunochemiluminometric Methodology (ICMA)Values obtained with different assay methods or kits cannotbe used interchangeably. Results cannot be interpreted asabsolute evidence of the presence or absence of malignantdisease. Performed By: #### L 100.0100, L3100.5040, L3100.5030, L500.4050, L3100.2300 ####[facility] [address] [place], [address] Carcinoembryonic Antigenon 0 12-21-2024 CEA 17.3 ng/mL High 0.0-4.7 [facility] Comment on above: Result Comment: Nons mokers <3.9 Smokers <5.6[employer] Electrochemiluminescence Immunoassay(ECLIA)Values obtained with different assay methods or kitscannot be used interchangeably. Results cannot beinterpreted as absolute evidence of the presence orabsence of malignant disease. Performed By: #### L 100.0100, L3100.5040, L3100.5030, L500.4050, L3100.2300 ####[facility] [address] [place], [place], [id number] CA 15-3Ordered By: Chelsea slade on 12-20-2024 CA 15-3 28.8 U/mL High 0.0-25.0 [facility] Comment on above: [employer] El ectrochemiluminescence Immunoassay(ECLIA)Values obtained with different assay methods or kits cannotbe used interchangeably. Results cannot be interpreted asabsolute evidence of the presence or absence of malignantdisease.Performed at: [place] [id number] Director: Reese Willingham PhD, Phone: [phone] CA 27.29Ordered By: Chelsea connelly on 12-20-2024 CA 27.29 33.5 U/mL 0.0-38.6 [facility] Comment on above: [employer] Centaur Immu nochemiluminometric Methodology (ICMA)Values obtained with different assay methods or kits cannotbe used interchangeably. Results cannot be interpreted asabsolute evidence of the presence or absence of malignantdisease. CBC W/Diff, Automatedon 12-11 Absolute Lymph 1.32 X10 3/uL Normal 0.83-4.51 [facility] Comment on above: Performed By: #### L 100.0100, L3100.5040, L3100.5030, L500.4050, L3100.2300 ####[facility] [address] [place], [place], [id number] Absolute Neut 1.8 X10 3/uL Low 2.0-7.7 [facility] Comment on above: Performed By: #### L 100.0100, L3100.5040, L3100.5030, L500.4050, L3100.2300 ####[facility] [address] [place], [address] Basophils/100 WBC (Bld) 1.3 % High 0-1 [facility] Comment on above: Performed By: #### L 100.0100, L3100.5040, L3100.5030, L500.4050, L3100.2300 ####[facility] [address] [place], [address] Eosinophils/100 WBC (Bld) 3.7 % Normal 0-5 [facility] Comment on above: Performed By: #### L 100.0100, L3100.5040, L3100.5030, L500.4050, L3100.2300 ####[facility] [address] [place], [address] Erythrocyte distribution width (RBC) [Ratio] 14.0 % Normal 11.6-14.6 [facility] Comment on above: Performed By: #### L 100.0100, L3100.5040, L3100.5030, L500.4050, L3100.2300 ####[facility] [address] [place], [address] Hematocrit (Bld) [Volume fraction] 35.1 % Low 37-47 [facility] Comment on above: Performed By: #### L 100.0100, L3100.5040, L3100.5030, L500.4050, L3100.2300 ####[facility] [address] [place], [address] Hemoglobin (Bld) [Mass/Vol] 12.3 g/dL Normal 12.0-15.0 [facility] Comment on above: Performed By: #### L 100.0100, L3100.5040, L3100.5030, L500.4050, L3100.2300 ####[facility] [address] [place], [address] IG% 0.500 Normal 0.0-0.9 [facility] Comment on above: Result Comment: IG% - Immature Granulocytes (promyelocytes, myelocytes andmetamyelocytes) > 1% indicates that a LEFT SHIFT is Present. Performed By: #### L 100.0100, L3100.5040, L3100.5030, L500.4050, L3100.2300 ####[facility] [address] [place], [address] Lymphocytes/100 WBC (Bld) 34.7 % Normal 19-41 [facility] Comment on above: Performed By: #### L 100.0100, L3100.5040, L3100.5030, L500.4050, L3100.2300 ####[facility] [address] [place], [address] MCH (RBC) [Entitic mass] 35.5 pg High 27.0-32.0 [facility] Comment on above: Performed By: #### L 100.0100, L3100.5040, L3100.5030, L500.4050, L3100.2300 ####[facility] [address] [place], [address] MCHC (RBC) [Mass/Vol] 35.0 g/dL Normal 32-36 [facility] Comment on above: Performed By: #### L 100.0100, L3100.5040, L3100.5030, L500.4050, L3100.2300 ####[facility] [address] [place], [address] MCV (RBC) [Entitic vol] 101.4 fL High 81-99 [facility] Comment on above: Performed By: #### L 100.0100, L3100.5040, L3100.5030, L500.4050, L3100.2300 ####[facility] [address] [place], [address] Monocytes/100 WBC (Bld) 11.6 % High 0-10 [facility] Comment on above: Performed By: #### L 100.0100, L3100.5040, L3100.5030, L500.4050, L3100.2300 ####[facility] [address] [place], [address] Neutrophils/100 WBC (Bld) 48.2 % Normal 47-70 [facility] Comment on above: Performed By: #### L 100.0100, L3100.5040, L3100.5030, L500.4050, L3100.2300 ####[facility] [address] [place], [address] Nucleated RBC (Bld) [#/Vol] 0 10*3/uL Normal 0-5 [facility] Comment on above: Performed By: #### L 100.0100, L3100.5040, L3100.5030, L500.4050, L3100.2300 ####[facility] [id number] [place], [address] Platelet mean volume (Bld) [Entitic vol] 10.2 fL Normal 6.2-12.0 [facility] Comment on above: Performed By: #### L 100.0100, L3100.5040, L3100.5030, L500.4050, L3100.2300 ####[facility] [id number] [place], [address] Platelets (Bld) [#/Vol] 158 10*3/uL Normal 150-450 [facility] Comment on above: Performed By: #### L 100.0100, L3100.5040, L3100.5030, L500.4050, L3100.2300 ####[facility] [address] [place], [address] RBC (Bld) [#/Vol] 3.46 10*6/uL Low 4.2-5.4 [facility] Comment on above: Performed By: #### L 100.0100, L3100.5040, L3100.5030, L500.4050, L3100.2300 ####[facility] [address] [place], [address] RDW SD 51.9 fl High 35.1-43.9 [facility] Comment on above: Performed By: #### L 100.0100, L3100.5040, L3100.5030, L500.4050, L3100.2300 ####[facility] [address] [place], [address] WBC (Bld) [#/Vol] 3.8 10*3/uL Low 4.4-11.0 [facility] Comment on above: Performed By: #### L 100.0100, L3100.5040, L3100.5030, L500.4050, L3100.2300 ####[facility] [address] [place], [address] Comprehensive Metabolic Prof [facility] 12-20-2024 Albumin [Mass/Vol] 3.7 g/dL Normal 3.4-4.8 [facility] Comment on above: Performed By: #### L 100.0100, L3100.5040, L3100.5030, L500.4050, L3100.2300 ####[facility] [address] [place], [address] Albumin/Globulin [Mass ratio] 1.3 {ratio} Normal 0.9-2.4 [facility] Comment on above: Performed By: #### L 100.0100, L3100.5040, L3100.5030, L500.4050, L3100.2300 ####[facility] [address] [place], [address] ALK PHOS 154 U/L High 35-104 [facility] Comment on above: Performed By: #### L 100.0100, L3100.5040, L3100.5030, L500.4050, L3100.2300 ####[facility] [address] [place], [address] ALT [Catalytic activity/Vol] 37 U/L High <=34 [facility] Comment on above: Performed By: #### L 100.0100, L3100.5040, L3100.5030, L500.4050, L3100.2300 ####[facility] [address] [place], [address] AST [Catalytic activity/Vol] 50 U/L High <=31 [facility] Comment on above: Performed By: #### L 100.0100, L3100.5040, L3100.5030, L500.4050, L3100.2300 ####[facility] [address] [place], [address] Bilirubin [Mass/Vol] 0.35 mg/dL Normal 0.00-1.30 [facility] Comment on above: Performed By: #### L 100.0100, L3100.5040, L3100.5030, L500.4050, L3100.2300 ####[facility] [address] [place], [address] BUN/CRE 16.1 RATIO Normal 10-20 [facility] Comment on above: Performed By: #### L 100.0100, L3100.5040, L3100.5030, L500.4050, L3100.2300 ####[facility] [address] [place], [address] Calcium [Mass/Vol] 9.7 mg/dL Normal 7.6-11.0 [facility] Comment on above: Performed By: #### L 100.0100, L3100.5040, L3100.5030, L500.4050, L3100.2300 ####[facility] [address] [place], [address] Chloride [Moles/Vol] 101 mmol/L Normal 98-108 [facility] Comment on above: Performed By: #### L 100.0100, L3100.5040, L3100.5030, L500.4050, L3100.2300 ####[facility] [address] [place], [address] CO2 [Moles/Vol] 26.8 mmol/L Normal 21.0-32.0 [facility] Comment on above: Performed By: #### L 100.0100, L3100.5040, L3100.5030, L500.4050, L3100.2300 ####[facility] [address] [place], [address] Creatinine [Mass/Vol] 1.37 mg/dL High 0.70-1.20 [facility] Comment on above: Performed By: #### L 100.0100, L3100.5040, L3100.5030, L500.4050, L3100.2300 ####[facility] [address] [place], [address] ECRCL 45.87 ml/min Low 50-250 [facility] Comment on above: Performed By: #### L 100.0100, L3100.5040, L3100.5030, L500.4050, L3100.2300 ####[facility] [address] [place], [address] GAP 13 Normal 5-15 [facility] Comment on above: Performed By: #### L 100.0100, L3100.5040, L3100.5030, L500.4050, L3100.2300 ####[facility] [address] [place], [address] GFR/1.73 sq M.predicted among non-blacks MDRD (S/P/Bld) [Vol rate/Area] 41 mL/min/{1.73_m2} Low >60 [facility] Comment on above: Result Comment: mL/m in/1.73m2 CKD-EPI Creatinine Equation (2020) Performed By: #### L 100.0100, L3100.5040, L3100.5030, L500.4050, L3100.2300 ####[facility] [address] [place], [address] Globulin (S) [Mass/Vol] 2.8 g/dL Normal 2.2-4.2 [facility] Comment on above: Performed By: #### L 100.0100, L3100.5040, L3100.5030, L500.4050, L3100.2300 ####[facility] [address] [place], [address] Glucose [Mass/Vol] 188 mg/dL High 70-99 [facility] Comment on above: Performed By: #### L 100.0100, L3100.5040, L3100.5030, L500.4050, L3100.2300 ####[facility] [address] [place], [address] Potassium [Moles/Vol] 3.8 mmol/L Normal 3.3-5.1 [facility] Comment on above: Performed By: #### L 100.0100, L3100.5040, L3100.5030, L500.4050, L3100.2300 ####[facility] [address] [place], [address] Sodium [Moles/Vol] 141 mmol/L Normal 133-145 [facility] Comment on above: Performed By: #### L 100.0100, L3100.5040, L3100.5030, L500.4050, L3100.2300 ####[facility] [address] [place], [address] T PROT 6.5 g/dL Normal 5.9-8.4 [facility] Comment on above: Performed By: #### L 100.0100, L3100.5040, L3100.5030, L500.4050, L3100.2300 ####[facility] [address] [place], [address] Urea nitrogen [Mass/Vol] 22 mg/dL High 4-19 [facility] Comment on above: Performed By: #### L 100.0100, L3100.5040, L3100.5030, L500.4050, L3100.2300 ####[facility] [address] [place], [address] Oncology Visit Reporton 12-11 Oncology Visit Report Normal [facility] Serum or plasma carcinoembry onic antigen measurement (mass/volume)Ordered By: Chelsea Anguiano on 12-20-2024 Carcinoembryonic Ag [Mass/Vol] 17.3 ng/mL High 0.0-4.7 [facility] Comment on above: Nonsmokers <3.9 Smok ers <5.6[employer] Electrochemiluminescence Immunoassay(ECLIA)Values obtained with different assay methods or kitscannot be used interchangeably. Results cannot beinterpreted as absolute evidence of the presence orabsence of malignant disease. CA 15-3on 11-24-2024 CA 15-3 30.6 U/mL Abnormal 0.0-25.0 [facility] Comment on above: Result Comment: [employer] Electrochemiluminescence Immunoassay(ECLIA)Values obtained with different assay methods or kits cannotbe used interchangeably. Results cannot be interpreted asabsolute evidence of the presence or absence of malignantdisease.Performed at: [address] [id number] Director: Reese Willingham PhD, Phone: [phone] Performed By: #### L 3100.5040, L3100.5030, L3100.2300, L100.0100, L500.4050 ####[facility] [address] [place], [address] CA 27.29on 11-24-2024 CA 27.29 29.7 U/mL Normal 0.0-38.6 [facility] Comment on above: Result Comment: [facility] Immunochemiluminometric Methodology (ICMA)Values obtained with different assay methods or kits cannotbe used interchangeably. Results cannot be interpreted asabsolute evidence of the presence or absence of malignantdisease. Performed By: #### L 3100.5040, L3100.5030, L3100.2300, L100.0100, L500.4050 ####[facility] [address] [place], [address] Carcinoembryonic Antigenon 0 11-24-2024 CEA 12.3 ng/mL High 0.0-4.7 [facility] Comment on above: Result Comment: Nons mokers <3.9 Smokers <5.6[employer] Electrochemiluminescence Immunoassay(ECLIA)Values obtained with different assay methods or kitscannot be used interchangeably. Results cannot beinterpreted as absolute evidence of the presence orabsence of malignant disease. Performed By: #### L 3100.5040, L3100.5030, L3100.2300, L100.0100, L500.4050 ####[facility] [address] [place], [address] Absolute neutrophil countOrd ered By: Sultana Finn on 11-22-2024 Neutrophils (Bld) [#/Vol] 1.0 10*3/uL Low 2.0-7.7 [facility] Anion gap in Serum or Plasma Ordered By: Sultana Finn on 11-22-2024 Anion gap [Moles/Vol] 12 mmol/L - [facility] Automated blood erythrocyte countOrdered By: Sultana Finn on 11-22-2024 RBC (Bld) [#/Vol] 3.35 10*6/uL Low 4.2-5.4 [facility] Comment on above: Performed By: #### L 3100.5040, L3100.5030, L3100.2300, L100.0100, L500.4050 ####[facility] [address] [place], [place], [id number] Automated blood hematocrit ( percentage)Ordered By: Sultana EspañaAakash on 11-22-2024 Hematocrit (Bld) [Volume fraction] 34.3 % Low 37-47 [facility] Comment on above: Performed By: #### L 3100.5040, L3100.5030, L3100.2300, L100.0100, L500.4050 ####[facility] [address] [place], [place], [id number] Automated lymphocyte count a s percentage of total leukocytesOrdered By: Sultanajody EspañaAakash on 11-22-2024 Lymphocytes/100 WBC (Bld) 32.7 % Normal 19-41 [facility] Comment on above: Performed By: #### L 3100.5040, L3100.5030, L3100.2300, L100.0100, L500.4050 ####[facility] [address] [place], [place], [id number] BUN/creatinine ratioOrdered By: Sultana Aakash on 11-22-2024 Urea nitrogen/Creatinine [Mass ratio] 17.3 mg/mg 10-20 [facility] Basophil percentageOrdered B y: Sultana Aakash on 11-22-2024 Basophils/100 WBC (Bld) 1.0 % Normal 0-1 [facility] Comment on above: Performed By: #### L 3100.5040, L3100.5030, L3100.2300, L100.0100, L500.4050 ####[facility] [address] [place], [address] Bilirubin, totalOrdered By: Sultana Aakash on 11-22-2024 Bilirubin [Mass/Vol] 0.45 mg/dL Normal 0.00-1.30 [facility] Comment on above: Performed By: #### L 3100.5040, L3100.5030, L3100.2300, L100.0100, L500.4050 ####[facility] [address] [place], [address] CBC W/Diff, Automatedon - Absolute Lymph 0.66 X10 3/uL Low 0.83-4.51 [facility] Comment on above: Performed By: #### L 3100.5040, L3100.5030, L3100.2300, L100.0100, L500.4050 ####[facility] [address] [place], [address] Absolute Neut 1.0 X10 3/uL Low 2.0-7.7 [facility] Comment on above: Performed By: #### L 3100.5040, L3100.5030, L3100.2300, L100.0100, L500.4050 ####[facility] [address] [place], [address] IG% 0.000 Normal 0.0-0.9 [facility] Comment on above: Result Comment: IG% - Immature Granulocytes (promyelocytes, myelocytes andmetamyelocytes) > 1% indicates that a LEFT SHIFT is Present. Performed By: #### L 3100.5040, L3100.5030, L3100.2300, L100.0100, L500.4050 ####[facility] [address] [place], [address] Nucleated RBC (Bld) [#/Vol] 0 10*3/uL Normal 0-5 [facility] Comment on above: Performed By: #### L 3100.5040, L3100.5030, L3100.2300, L100.0100, L500.4050 ####[facility] [address] [place], [address] RDW SD 54.3 fl High 35.1-43.9 [facility] Comment on above: Performed By: #### L 3100.5040, L3100.5030, L3100.2300, L100.0100, L500.4050 ####[facility] [address] [place], [address] Carbon dioxide, total [Moles /volume] in Central venous bloodOrdered By: Sultana Finn on 11-22-2024 CO2 [Moles/Vol] 26.6 mmol/L Normal 21.0-32.0 [facility] Comment on above: Performed By: #### L 3100.5040, L3100.5030, L3100.2300, L100.0100, L500.4050 ####[facility] [address] [place], [address] Chloride assayOrdered By: Saurabh Finn on 11-22-2024 Chloride [Moles/Vol] 100 mmol/L Normal 98-108 [facility] Comment on above: Performed By: #### L 3100.5040, L3100.5030, L3100.2300, L100.0100, L500.4050 ####[facility] [address] [place], [address] Comprehensive Metabolic Prof ilon 11-22-2024 ALK PHOS 114 U/L High 35-104 [facility] Comment on above: Performed By: #### L 3100.5040, L3100.5030, L3100.2300, L100.0100, L500.4050 ####[facility] [address] [place], [address] BUN/CRE 17.3 RATIO Normal 10-20 [facility] Comment on above: Performed By: #### L 3100.5040, L3100.5030, L3100.2300, L100.0100, L500.4050 ####[facility] [address] [place], [address] ECRCL 53.71 ml/min Normal 50-250 [facility] Comment on above: Performed By: #### L 3100.5040, L3100.5030, L3100.2300, L100.0100, L500.4050 ####[facility] [address] [place], [address] GAP 12 Normal 5-15 [facility] Comment on above: Performed By: #### L 3100.5040, L3100.5030, L3100.2300, L100.0100, L500.4050 ####[facility] [address] [place], [address] GFR/1.73 sq M.predicted among non-blacks MDRD (S/P/Bld) [Vol rate/Area] 50 mL/min/{1.73_m2} Low >60 [facility] Comment on above: Result Comment: mL/m in/1.73m2 CKD-EPI Creatinine Equation (2020) Performed By: #### L 3100.5040, L3100.5030, L3100.2300, L100.0100, L500.4050 ####[facility] [address] [place], [address] T PROT 6.5 g/dL Normal 5.9-8.4 [facility] Comment on above: Performed By: #### L 3100.5040, L3100.5030, L3100.2300, L100.0100, L500.4050 ####[facility] [address] [place], [address] Comprehensive Metabolic Prof ilOrdered By: Sultana Finn on 11-22-2024 AST [Catalytic activity/Vol] 56 U/L High <=31 [facility] Comment on above: Performed By: #### L 3100.5040, L3100.5030, L3100.2300, L100.0100, L500.4050 ####[facility] [address] [place], [place], [address] Eosinophil percentageOrdered By: Sultana Finn on 11-22-2024 Eosinophils/100 WBC (Bld) 2.5 % Normal 0-5 [facility] Comment on above: Performed By: #### L 3100.5040, L3100.5030, L3100.2300, L100.0100, L500.4050 ####[facility] [address] [place], [place], [address] Erythrocyte distribution wid th ratioOrdered By: Sultana Finn on 11-22-2024 Erythrocyte distribution width (RBC) [Ratio] 14.6 % Normal 11.6-14.6 [facility] Comment on above: Performed By: #### L 3100.5040, L3100.5030, L3100.2300, L100.0100, L500.4050 ####[facility] [address] [place], [place], [address] Erythrocyte distribution wid th standard deviationOrdered By: Sultana Finn on 11-22-2024 Erythrocyte distribution width (RBC) [Entitic vol] 54.3 fL High 35.1-43.9 [facility] Estimation of creatinine masoud aranceOrdered By: Sultana Finn on 11-22-2024 Estimated Creatinine Clearance Calc 53.71 ml/min 50-250 [facility] GFR/1.73 sq M.predicted aggie g non-blacks MDRD (S/P/Bld) [Vol rate/Area]Ordered By: Sultana Finn on 11-22-2024 Estimated GFR (MDRD) Non-Af Amer 50 Low >60 [facility] Comment on above: mL/min/1.73m2 CKD-EP I Creatinine Equation (2020) Hemoglobin measurementOrdere d By: Sultana Finn on 11-22-2024 Hemoglobin (Bld) [Mass/Vol] 11.9 g/dL Low 12.0-15.0 [facility] Comment on above: Performed By: #### L 3100.5040, L3100.5030, L3100.2300, L100.0100, L500.4050 ####[facility] [address] [place], [address] Immature granulocytes/100 WB C Auto (Bld)Ordered By: Sultana Finn on 11-22-2024 Immature granulocytes/100 WBC (Bld) 0.000 % 0.0-0.9 [facility] Comment on above: IG% - Immature Granu locytes (promyelocytes, myelocytes and metamyelocytes) > 1% indicates that a LEFT SHIFT is Present. Lymphocytes Auto (Unsp spec) [#/Vol]Ordered By: Sultana Finn on 11-22-2024 Lymphocytes (Bld) [#/Vol] 0.66 10*3/uL Low 0.83-4.51 [facility] MCV (mean corpuscular volume ) determinationOrdered By: Sultana Finn on 11-22-2024 MCV (RBC) [Entitic vol] 102.4 fL High 81-99 [facility] Comment on above: Performed By: #### L 3100.5040, L3100.5030, L3100.2300, L100.0100, L500.4050 ####[facility] [address] [place], [address] Mean corpuscular hemoglobin (MCH) determinationOrdered By: Sultana Finn on 11-22-2024 MCH (RBC) [Entitic mass] 35.5 pg High 27.0-32.0 [facility] Comment on above: Performed By: #### L 3100.5040, L3100.5030, L3100.2300, L100.0100, L500.4050 ####[facility] [address] [place], [address] Mean corpuscular hemoglobin concentration (MCHC) determinationOrdered By: Sultana Finn on 11-22-2024 MCHC (RBC) [Mass/Vol] 34.7 g/dL Normal 32-36 [facility] Comment on above: Performed By: #### L 3100.5040, L3100.5030, L3100.2300, L100.0100, L500.4050 ####[facility] [address] [place], [place], [address] Mean platelet volume determi nationOrdered By: Sultana EspañaAakash on 11-22-2024 Platelet mean volume (Bld) [Entitic vol] 9.6 fL Normal 6.2-12.0 [facility] Comment on above: Performed By: #### L 3100.5040, L3100.5030, L3100.2300, L100.0100, L500.4050 ####[facility] [address] [place], [place], [phone] Monocyte percentageOrdered B y: Sultanajody EspañaAakash on 11-22-2024 Monocytes/100 WBC (Bld) 13.4 % High 0-10 [facility] Comment on above: Performed By: #### L 3100.5040, L3100.5030, L3100.2300, L100.0100, L500.4050 ####[facility] [address] [place], [place], [address] Neutrophil percentageOrdered By: Sultana EspañaAakash on 11-22-2024 Neutrophils/100 WBC (Bld) 50.4 % Normal 47-70 [facility] Comment on above: Performed By: #### L 3100.5040, L3100.5030, L3100.2300, L100.0100, L500.4050 ####[facility] [address] [place], [place], [address] Nucleated red blood cell per centageOrdered By: Sultana EspañaAakash on 11-22-2024 Nucleated RBC/100 WBC (Bld) [Ratio] 0 % 0-5 [facility] Oncology Visit Reporton 11-10 Oncology Visit Report Normal [facility] Platelet countOrdered By: Ty ra Finn on 11-22-2024 Platelets (Bld) [#/Vol] 138 10*3/uL Low 150-450 [facility] Comment on above: Performed By: #### L 3100.5040, L3100.5030, L3100.2300, L100.0100, L500.4050 ####[facility] [address] [place], [place], [address] Potassium measurement (mass/ volume)Ordered By: Sultana Finn on 11-22-2024 Potassium [Moles/Vol] 4.2 mmol/L Normal 3.3-5.1 [facility] Comment on above: Performed By: #### L 3100.5040, L3100.5030, L3100.2300, L100.0100, L500.4050 ####[facility] [address] [place], [place], [id number] Serum creatinine measurement (mass/volume)Ordered By: Sultana Finn on 11-22-2024 Creatinine [Mass/Vol] 1.17 mg/dL Normal 0.70-1.20 [facility] Comment on above: Performed By: #### L 3100.5040, L3100.5030, L3100.2300, L100.0100, L500.4050 ####[facility] [address] [place], [place], [address] Serum globulin measurementOr dered By: Sultana Finn on 11-22-2024 Globulin (S) [Mass/Vol] 2.5 g/dL Normal 2.2-4.2 [facility] Comment on above: Performed By: #### L 3100.5040, L3100.5030, L3100.2300, L100.0100, L500.4050 ####[facility] [address] [place], [place], [address] Serum glucose measurement (m ass/volume)Ordered By: Sultana Finn on 11-22-2024 Glucose [Mass/Vol] 185 mg/dL High 70-99 [facility] Comment on above: Performed By: #### L 3100.5040, L3100.5030, L3100.2300, L100.0100, L500.4050 ####[facility] [address] [place], [address] Serum or plasma alanine skinner otransferase (ALT) measurementOrdered By: Sultana Finn on 11-22-2024 ALT [Catalytic activity/Vol] 37 U/L High <=34 [facility] Comment on above: Performed By: #### L 3100.5040, L3100.5030, L3100.2300, L100.0100, L500.4050 ####[facility] [address] [place], [place], [address] Serum or plasma albumin amanda urement (mass/volume)Ordered By: Sultana Finn on 11-22-2024 Albumin [Mass/Vol] 3.9 g/dL Normal 3.4-4.8 [facility] Comment on above: Performed By: #### L 3100.5040, L3100.5030, L3100.2300, L100.0100, L500.4050 ####[facility] [address] [place], [address] Serum or plasma albumin/glob ulin mass ratioOrdered By: Sultana Finn on 11-22-2024 Albumin/Globulin [Mass ratio] 1.6 {ratio} Normal 0.9-2.4 [facility] Comment on above: Performed By: #### L 3100.5040, L3100.5030, L3100.2300, L100.0100, L500.4050 ####[facility] [address] [place], [address] Serum or plasma alkaline domenico sphatase measurementOrdered By: Sultana Finn on 11-22-2024 ALP [Catalytic activity/Vol] 114 U/L High 35-104 [facility] Serum or plasma calcium amanda urement (mass/volume)Ordered By: Sultana Finn on 11-22-2024 Calcium [Mass/Vol] 9.6 mg/dL Normal 7.6-11.0 [facility] Comment on above: Performed By: #### L 3100.5040, L3100.5030, L3100.2300, L100.0100, L500.4050 ####[facility] [address] [place], [address] Serum or plasma urea nitroge n measurement (mass/volume)Ordered By: Sultana Finn on 11-22-2024 Urea nitrogen [Mass/Vol] 20 mg/dL High 4-19 [facility] Comment on above: Performed By: #### L 3100.5040, L3100.5030, L3100.2300, L100.0100, L500.4050 ####[facility] [address] [place], [address] Sodium levelOrdered By: Sultana Finn on 11-22-2024 Sodium [Moles/Vol] 139 mmol/L Normal 133-145 [facility] Comment on above: Performed By: #### L 3100.5040, L3100.5030, L3100.2300, L100.0100, L500.4050 ####[facility] [address] [place], [address] Total proteinOrdered By: Chaka Finn on 11-22-2024 Protein [Mass/Vol] 6.5 g/dL 5.9-8.4 [facility] White blood cell (WBC) count Ordered By: Sultana Finn on 11-22-2024 WBC (Bld) [#/Vol] 2.0 10*3/uL Low 4.4-11.0 [facility] Comment on above: Performed By: #### L 3100.5040, L3100.5030, L3100.2300, L100.0100, L500.4050 ####[facility] [address] [place], [address] Anion gap in Serum or Plasma Ordered By: Rae Aguirre on 11-13-2024 Anion gap [Moles/Vol] 15 mmol/L 5-15 [facility] BUN/creatinine ratioOrdered By: Rae Aguirre on 11-13-2024 Urea nitrogen/Creatinine [Mass ratio] 22.4 mg/mg High 10-20 [facility] Bilirubin, totalOrdered By: Rae Aguirre on 11-13-2024 Bilirubin [Mass/Vol] 0.36 mg/dL 0.00-1.30 [facility] Bone Scan Whole Bodyon 11-13 Bone Scan Whole Body Normal [facility] Carbon dioxide, total [Moles /volume] in Central venous bloodOrdered By: Rae Aguirre on 11-13-2024 CO2 [Moles/Vol] 23.2 mmol/L 21.0-32.0 [facility] Chloride assayOrdered By: Tahira Aguirre on 11-13-2024 Chloride [Moles/Vol] 100 mmol/L 98-108 [facility] Comprehensive Metabolic Prof ilon 11-13-2024 Albumin [Mass/Vol] 4.1 g/dL Normal 3.4-4.8 [facility] Comment on above: Order Comment: Order Date: 11/09/24Order Info: 0786-1 - CMP Performed By: #### L 500.4050, L503.6005 ####[facility] [id number] [place], [address] Albumin/Globulin [Mass ratio] 1.5 {ratio} Normal 0.9-2.4 [facility] Comment on above: Order Comment: Order Date: 11/09/24Order Info: 0786-1 - CMP Performed By: #### L 500.4050, L503.6005 ####[facility] [id number] [place], [address] ALK PHOS 157 U/L High 35-104 [facility] Comment on above: Order Comment: Order Date: 11/09/24Order Info: 0786-1 - CMP Performed By: #### L 500.4050, L503.6005 ####[facility] [address] [place], [address] ALT [Catalytic activity/Vol] 51 U/L High <=34 [facility] Comment on above: Order Comment: Order Date: 11/09/24Order Info: 0786-1 - CMP Performed By: #### L 500.4050, L503.6005 ####[facility] [address] [place], [address] AST [Catalytic activity/Vol] 58 U/L High <=31 [facility] Comment on above: Order Comment: Order Date: 11/09/24Order Info: 0786-1 - CMP Performed By: #### L 500.4050, L503.6005 ####[facility] [address] [place], [address] Bilirubin [Mass/Vol] 0.36 mg/dL Normal 0.00-1.30 [facility] Comment on above: Order Comment: Order Date: 11/09/24Order Info: 0786-1 - CMP Performed By: #### L 500.4050, L503.6005 ####[facility] [address] [place], [address] BUN/CRE 22.4 RATIO High 10-20 [facility] Comment on above: Order Comment: Order Date: 11/09/24Order Info: 0786-1 - CMP Performed By: #### L 500.4050, L503.6005 ####[facility] [address] [place], [address] Calcium [Mass/Vol] 9.9 mg/dL Normal 7.6-11.0 [facility] Comment on above: Order Comment: Order Date: 11/09/24Order Info: 0786-1 - CMP Performed By: #### L 500.4050, L503.6005 ####[facility] [address] [place], [address] Chloride [Moles/Vol] 100 mmol/L Normal 98-108 [facility] Comment on above: Order Comment: Order Date: 11/09/24Order Info: 0786-1 - CMP Performed By: #### L 500.4050, L503.6005 ####[facility] [address] [place], [address] CO2 [Moles/Vol] 23.2 mmol/L Normal 21.0-32.0 [facility] Comment on above: Order Comment: Order Date: 11/09/24Order Info: 0786-1 - CMP Performed By: #### L 500.4050, L503.6005 ####[facility] [address] [place], [address] Creatinine [Mass/Vol] 1.26 mg/dL High 0.70-1.20 [facility] Comment on above: Order Comment: Order Date: 11/09/24Order Info: 0786-1 - CMP Performed By: #### L 500.4050, L503.6005 ####[facility] [address] [place], [address] GAP 15 Normal 5-15 [facility] Comment on above: Order Comment: Order Date: 11/09/24Order Info: 0786-1 - CMP Performed By: #### L 500.4050, L503.6005 ####[facility] [address] [place], [address] GFR/1.73 sq M.predicted among non-blacks MDRD (S/P/Bld) [Vol rate/Area] 46 mL/min/{1.73_m2} Low >60 [facility] Comment on above: Order Comment: Order Date: 11/09/24Order Info: 0786-1 - CMP Result Comment: mL/m in/1.73m2 CKD-EPI Creatinine Equation (2020) Performed By: #### L 500.4050, L503.6005 ####[facility] [address] [place], [address] Globulin (S) [Mass/Vol] 2.8 g/dL Normal 2.2-4.2 [facility] Comment on above: Order Comment: Order Date: 11/09/24Order Info: 0786-1 - CMP Performed By: #### L 500.4050, L503.6005 ####[facility] [address] [place], [address] Glucose [Mass/Vol] 198 mg/dL High 70-99 [facility] Comment on above: Order Comment: Order Date: 11/09/24Order Info: 0786-1 - CMP Performed By: #### L 500.4050, L503.6005 ####[facility] [address] [place], [address] Potassium [Moles/Vol] 4.7 mmol/L Normal 3.3-5.1 [facility] Comment on above: Order Comment: Order Date: 11/09/24Order Info: 0786-1 - CMP Performed By: #### L 500.4050, L503.6005 ####[facility] [address] [place], [address] Sodium [Moles/Vol] 138 mmol/L Normal 133-145 [facility] Comment on above: Order Comment: Order Date: 11/09/24Order Info: 0786-1 - CMP Performed By: #### L 500.4050, L503.6005 ####[facility] [address] [place], [address] T PROT 6.8 g/dL Normal 5.9-8.4 [facility] Comment on above: Order Comment: Order Date: 11/09/24Order Info: 0786-1 - CMP Performed By: #### L 500.4050, L503.6005 ####[facility] [address] [place], [address] Urea nitrogen [Mass/Vol] 28 mg/dL High 4-19 [facility] Comment on above: Order Comment: Order Date: 11/09/24Order Info: 0786-1 - CMP Performed By: #### L 500.4050, L503.6005 ####[facility] [address] [place], [place], [address] GFR/1.73 sq M.predicted aggie g non-blacks MDRD (S/P/Bld) [Vol rate/Area]Ordered By: Rae Aguirre on 11-13-2024 Estimated GFR (MDRD) Non-Af Amer 46 Low >60 [facility] Comment on above: mL/min/1.73m2 CKD-EP I Creatinine Equation (2020) Glomerular filtration rate ( GFR) estimation/1.73 sq m using serum, plasma, or whole bOrdered By: Rae Aguirre on 11-13-2024 GFR/1.73 sq M.predicted among non-blacks MDRD (S/P/Bld) [Vol rate/Area] 46 mL/min/{1.73_m2} Low >60 [facility] Comment on above: mL/min/1.73m2 CKD-EP I Creatinine Equation (2020) Laboratory - Chemistry and C hemistry - challengeOrdered By: Rae Aguirre on 11-13-2024 AST [Catalytic activity/Vol] 58 U/L High <32 [facility] Lactic Acidon 11-13-2024 Lactate [Moles/Vol] 2.2 mmol/L Invalid Interpretation Code 0.0-2.0 [facility] Comment on above: Order Comment: Order Date: 11/09/24Order Info: [id number] - LAY Result Comment: Crit ical Result(s) Called at 11/13/2024 09:58 by Luciano Vuong Madrical results read back by same. Performed By: #### L 500.4050, L503.6005 ####[facility] [address] [place], [place], [id number] Lactic acid measurementOrder ed By: Rae Aguirre on 11-13-2024 Lactate [Moles/Vol] 2.2 mmol/L High 0.0-2.0 [facility] Comment on above: Critical Result(s) C alled at 11/13/2024 09:58 by Luciano Guzmán to Carolann Long results read back by same. Potassium (Unsp spec) [Mass/ Vol]Ordered By: Rae Aguirre on 11-13-2024 Potassium [Moles/Vol] 4.7 mmol/L 3.3-5.1 [facility] Potassium measurement (mass/ volume)Ordered By: Rae Aguirre on 11-13-2024 Potassium (Unsp spec) [Mass/Vol] 4.7 mmol/L 3.3-5.1 [facility] Serum creatinine measurement (mass/volume)Ordered By: Rae Aguirre on 11-13-2024 Creatinine [Mass/Vol] 1.26 mg/dL High 0.70-1.20 [facility] Serum globulin measurementOr dered By: Rae Aguirre on 11-13-2024 Globulin (S) [Mass/Vol] 2.8 g/dL 2.2-4.2 [facility] Serum glucose measurement (m ass/volume)Ordered By: Rae Aguirre on 11-13-2024 Glucose [Mass/Vol] 198 mg/dL High 70-99 [facility] Serum or plasma alanine skinner otransferase (ALT) measurementOrdered By: Rae Aguirre on 11-13-2024 ALT [Catalytic activity/Vol] 51 U/L High <35 [facility] Serum or plasma albumin amanda urement (mass/volume)Ordered By: Rae Aguirre on 11-13-2024 Albumin [Mass/Vol] 4.1 g/dL 3.4-4.8 [facility] Serum or plasma albumin/glob ulin mass ratioOrdered By: Rae Aguirre on 11-13-2024 Albumin/Globulin [Mass ratio] 1.5 {ratio} 0.9-2.4 [facility] Serum or plasma alkaline domenico sphatase measurementOrdered By: Rae Aguirre on 11-13-2024 ALP [Catalytic activity/Vol] 157 U/L High 35-104 [facility] Serum or plasma calcium amanda urement (mass/volume)Ordered By: Rae Aguirre on 11-13-2024 Calcium [Mass/Vol] 9.9 mg/dL 7.6-11.0 [facility] Serum or plasma urea nitroge n measurement (mass/volume)Ordered By: Rae Aguirre on 11-13-2024 Urea nitrogen [Mass/Vol] 28 mg/dL High 4-19 [facility] Sodium levelOrdered By: Luis Aguirre on 11-13-2024 Sodium [Moles/Vol] 138 mmol/L 133-145 [facility] Total proteinOrdered By: Saima Aguirre on 11-13-2024 Protein [Mass/Vol] 6.8 g/dL 5.9-8.4 [facility] Culture, Blood (WB)on 2024 CUB Blood cultures x2, f rom two different sites No growth in 5 days. Normal [facility] Comment on above: Performed By: #### M 200.1000 ####[facility] [address] [place], [place], [id number] Calculated very low density lipoprotein (VLDL) cholesterol measurementOrdered By: Rae Aguirre on 11-09-2024 Calculated very low density lipoprotein (VLDL) cholesterol measurement 42 mg/dL High 5-40 [facility] VLDL Cholesterol 42 mg/dL High 5-40 [facility] LDL calc ser/plasOrdered By: Rae Aguirre on 11-09-2024 Cholesterol in LDL [Mass/Vol] 54 mg/dL [facility] Comment on above: Qdttxjbbmq=589-694 m g/dL & Higher Gtry=906 mg/dL or greater LDL Cholesterol, Calculated 54 mg/dL [facility] Comment on above: Wxkryucwmp=366-481 m g/dL & Higher Pqdi=100 mg/dL or greater Lipid Profileon 11-09-2024 CHOL:HDL 2.66 Normal [facility] Comment on above: Order Comment: Order Date: 11/01/24Order Info: [id number] - LIPID Performed By: #### L 500.4100 ####[facility] [address] [place], [place], [address] Cholesterol [Mass/Vol] 155 mg/dL Normal <=200 [facility] Comment on above: Order Comment: Order Date: 11/01/24Order Info: [id number] - LIPID Result Comment: Chol esterol level, Desirable <200 mg/dLBorderline high cholesterol 200-239 mg/dLHigh cholesterol >=240 mg/dLRecommendations of the NCEP Adult Treatment Panel for thefollowing risk-cutoff thresholds for the [place] Americanpulation. Performed By: #### L 500.4100 ####[facility] [address] [place], [address] Cholesterol in HDL [Mass/Vol] 58 mg/dL Normal [facility] Comment on above: Order Comment: Order Date: 11/01/24Order Info: [id number] - LIPID Result Comment: Marilu onal Cholesterol Education Program (NCEP) guidelines:<40 mg/dL: Low HDL-cholesterol (major risk factor for CHD)>= 60 mg/dL: High HDL-cholesterol (negative risk factor forCHD)HDL-cholesterol is affected by a number of factors, e.g.smoking, exercise, hormones, sex and age. Performed By: #### L 500.4100 ####[facility] [address] [place], [address] Cholesterol in LDL [Mass/Vol] 54 mg/dL Normal [facility] Comment on above: Order Comment: Order Date: 11/01/24Order Info: [id number] - LIPID Result Comment: Bord djyauv=795-507 mg/dL Higher Pfgq=691 mg/dL or greater Performed By: #### L 500.4100 ####[facility] [address] [place], [address] Cholesterol in VLDL [Mass/Vol] 42 mg/dL High 5-40 [facility] Comment on above: Order Comment: Order Date: 11/01/24Order Info: [id number] - LIPID Performed By: #### L 500.4100 ####[facility] [address] [place], [address] Triglyceride [Mass/Vol] 212 mg/dL High [facility] Comment on above: Order Comment: Order Date: 11/01/24Order Info: [id number] - LIPID Result Comment: The drugs N-Acetylcysteine and Metamizole may falselydepress this assay.Normal range: <150 mg/dLBorderline High: 150-199 mg/dLHigh: 200-499 mg/dLVery High: >500 mg/dL Performed By: #### L 500.4100 ####[facility] [address] [place], [address] Screening total cholesterol/ high density lipoprotein (HDL) cholesterol ratioOrdered By: Rae Aguirre on 11-09-2024 Cholesterol.total/Chol esterol in HDL [Mass ratio] 2.66 {ratio} [facility] Serum or plasma cholesterol in HDL measurement (mass/volume)Ordered By: Rae Aguirre on 11-09-2024 Cholesterol in HDL [Mass/Vol] 58 mg/dL >40 [facility] Comment on above: National Cholesterol Education Program (NCEP) guidelines:<40 mg/dL: Low HDL-cholesterol (major risk factor for CHD)>= 60 mg/dL: High HDL-cholesterol (negative risk factor for CHD)HDL-cholesterol is affected by a number of factors, e.g. smoking, exercise, hormones, sex and age. Serum or plasma cholesterol measurement (mass/volume)Ordered By: Rae Aguirre on 11-09-2024 Cholesterol [Mass/Vol] 155 mg/dL <201 [facility] Comment on above: Cholesterol level, D esirable <200 mg/dLBorderline high cholesterol 200-239 mg/dLHigh cholesterol >=240 mg/dLRecommendations of the NCEP Adult Treatment Panel for the following risk-cutoff thresholds for the [place] population. Triglycerides measurementOrd ered By: Rae Aguirre on 11-09-2024 Triglyceride [Mass/Vol] 212 mg/dL High <199 [facility] Comment on above: The drugs N-Acetylcy steine and Metamizole may falsely depress this assay. Normal range: <150 mg/dLBorderline High: 150-199 mg/dLHigh: 200-499 mg/dLVery High: >500 mg/dL Urine Cultureon 11-07-2024 URC Below infection leve l. Mixed Gram Pos Gram Neg Org Stinnett Count <1000 MIX[facility] Mixed contaminants. Submit a new specimen if indicated. Normal [facility] Comment on above: Performed By: #### M 100.2200 ####[facility] [address] [place], [place], [id number] 12 Lead EKGon 11-05-2024 12 Lead EKG Normal [facility] Abdomen/Pelvis W IV Cont ONL Yon 11-05-2024 Abdomen/Pelvis W IV Cont ONLY Normal [facility] Absolute lymphocyte countOrd ered By: Trever Terry on 11-05-2024 Lymphocytes Auto (Unsp spec) [#/Vol] 0.95 10*3/uL 0.83-4.51 [facility] Absolute neutrophil countOrd ered By: Trever Terry on 11-05-2024 Neutrophils (Bld) [#/Vol] 1.6 10*3/uL Low 2.0-7.7 [facility] Albumin to globulin ratioOrd ered By: Trever Terry on 11-05-2024 Albumin/Globulin [Mass ratio] 0.9 {ratio} 0.9-2.4 [facility] Automated lymphocyte count a s percentage of total leukocytesOrdered By: Trever Terry on 11-05-2024 Lymphocytes/100 WBC Auto (Unsp spec) 32.1 % 19-41 [facility] BNP (brain natriuretic pepti de measurement)Ordered By: Trever Terry on 11-05-2024 Natriuretic peptide B (Bld) [Mass/Vol] 9.5 pg/mL 0-100 [facility] BNP,B-Type NATRIURETIC PEPTI Florencia 11-05-2024 Natriuretic peptide B (Bld) [Mass/Vol] 9.5 pg/mL Normal 0-100 [facility] Comment on above: Performed By: #### L 501.4020, L503.6005, L500.4050, L503.6620, L100.0100, L501.2450 ####[facility] [address] [place], [address] Bacteria LM.HPF (Urine sed) [#/Area]Ordered By: Trever Terry on 11-05-2024 Urine Bacteria RARE /hpf None Seen [facility] Basophil percentageOrdered B y: Trever Terry on 11-05-2024 Basophils/100 WBC (Bld) 2.0 % High 0-1 [facility] Bilirubin Test strip Ql (U)O rdered By: Trever Terry on 11-05-2024 Bilirubin Ql (U) Negative Negative [facility] Bilirubin, totalOrdered By: Trever Terry on 11-05-2024 Bilirubin [Mass/Vol] 0.50 mg/dL 0.20-1.00 [facility] Comment on above: For patients on eltr ombopag therapy, use of Dimension [place] TBIL is not recommended. Blood cultureOrdered By: La Terry on 11-05-2024 Bacteria identified Cx Nom (Bld) No growth in 5 days. [facility] Blood urea nitrogen (BUN)/cr eatinine ratioOrdered By: Trever Terry on 11-05-2024 Urea nitrogen/Creatinine [Mass ratio] 15.6 mg/mg 10-20 [facility] Brain/Head without Contrasto n 11-05-2024 Brain/Head without Contrast Normal [facility] CBC W/Diff, Automatedon 10-14 Absolute Lymph 0.95 X10 3/uL Normal 0.83-4.51 [facility] Comment on above: Performed By: #### L 501.4020, L503.6005, L500.4050, L503.6620, L100.0100, L501.2450 ####[facility] [address] [place], [address] Absolute Neut 1.6 X10 3/uL Low 2.0-7.7 [facility] Comment on above: Performed By: #### L 501.4020, L503.6005, L500.4050, L503.6620, L100.0100, L501.2450 ####[facility] [address] [place], [address] Basophils/100 WBC (Bld) 2.0 % High 0-1 [facility] Comment on above: Performed By: #### L 501.4020, L503.6005, L500.4050, L503.6620, L100.0100, L501.2450 ####[facility] [address] [place], [address] Eosinophils/100 WBC (Bld) 2.4 % Normal 0-5 [facility] Comment on above: Performed By: #### L 501.4020, L503.6005, L500.4050, L503.6620, L100.0100, L501.2450 ####[facility] [address] [place], [address] Erythrocyte distribution width (RBC) [Ratio] 14.1 % Normal 11.6-14.6 [facility] Comment on above: Performed By: #### L 501.4020, L503.6005, L500.4050, L503.6620, L100.0100, L501.2450 ####[facility] [address] [place], [address] Hematocrit (Bld) [Volume fraction] 39.3 % Normal 37-47 [facility] Comment on above: Performed By: #### L 501.4020, L503.6005, L500.4050, L503.6620, L100.0100, L501.2450 ####[facility] [address] [place], [address] Hemoglobin (Bld) [Mass/Vol] 13.5 g/dL Normal 12.0-15.0 [facility] Comment on above: Performed By: #### L 501.4020, L503.6005, L500.4050, L503.6620, L100.0100, L501.2450 ####[facility] [address] [place], [address] IG% 0.300 Normal 0.0-0.9 [facility] Comment on above: Result Comment: IG% - Immature Granulocytes (promyelocytes, myelocytes andmetamyelocytes) > 1% indicates that a LEFT SHIFT is Present. Performed By: #### L 501.4020, L503.6005, L500.4050, L503.6620, L100.0100, L501.2450 ####[facility] [address] [place], [address] Lymphocytes/100 WBC (Bld) 32.1 % Normal 19-41 [facility] Comment on above: Performed By: #### L 501.4020, L503.6005, L500.4050, L503.6620, L100.0100, L501.2450 ####[facility] [address] [place], [address] MCH (RBC) [Entitic mass] 34.6 pg High 27.0-32.0 [facility] Comment on above: Performed By: #### L 501.4020, L503.6005, L500.4050, L503.6620, L100.0100, L501.2450 ####[facility] [address] [place], [address] MCHC (RBC) [Mass/Vol] 34.4 g/dL Normal 32-36 [facility] Comment on above: Performed By: #### L 501.4020, L503.6005, L500.4050, L503.6620, L100.0100, L501.2450 ####[facility] [address] [place], [address] MCV (RBC) [Entitic vol] 100.8 fL High 81-99 [facility] Comment on above: Performed By: #### L 501.4020, L503.6005, L500.4050, L503.6620, L100.0100, L501.2450 ####[facility] [address] [place], [address] Monocytes/100 WBC (Bld) 8.8 % Normal 0-10 [facility] Comment on above: Performed By: #### L 501.4020, L503.6005, L500.4050, L503.6620, L100.0100, L501.2450 ####[facility] [address] [place], [address] Neutrophils/100 WBC (Bld) 54.4 % Normal 47-70 [facility] Comment on above: Performed By: #### L 501.4020, L503.6005, L500.4050, L503.6620, L100.0100, L501.2450 ####[facility] [address] [place], [address] Nucleated RBC (Bld) [#/Vol] 0 10*3/uL Normal 0-5 [facility] Comment on above: Performed By: #### L 501.4020, L503.6005, L500.4050, L503.6620, L100.0100, L501.2450 ####[facility] [address] [place], [address] Platelet mean volume (Bld) [Entitic vol] 9.6 fL Normal 6.2-12.0 [facility] Comment on above: Performed By: #### L 501.4020, L503.6005, L500.4050, L503.6620, L100.0100, L501.2450 ####[facility] [address] [place], [address] Platelets (Bld) [#/Vol] 208 10*3/uL Normal 150-450 [facility] Comment on above: Performed By: #### L 501.4020, L503.6005, L500.4050, L503.6620, L100.0100, L501.2450 ####[facility] [address] [place], [address] RBC (Bld) [#/Vol] 3.90 10*6/uL Low 4.2-5.4 [facility] Comment on above: Performed By: #### L 501.4020, L503.6005, L500.4050, L503.6620, L100.0100, L501.2450 ####[facility] [address] [place], [address] RDW SD 51.8 fl High 35.1-43.9 [facility] Comment on above: Performed By: #### L 501.4020, L503.6005, L500.4050, L503.6620, L100.0100, L501.2450 ####[facility] [address] [place], [address] WBC (Bld) [#/Vol] 3.0 10*3/uL Low 4.4-11.0 [facility] Comment on above: Performed By: #### L 501.4020, L503.6005, L500.4050, L503.6620, L100.0100, L501.2450 ####[facility] [address] [place], [address] Carbon dioxide measurementOr dered By: Trever Terry on 11-05-2024 CO2 [Moles/Vol] 29.0 mmol/L 21.0-32.0 [facility] Chest 1 View (Portable)on Chest 1 View (Portable) Normal [facility] Chloride measurementOrdered By: Trever Terry on 11-05-2024 Chloride [Moles/Vol] 98 mmol/L 98-107 [facility] Comprehensive Metabolic Prof ilon 11-05-2024 Albumin [Mass/Vol] 3.6 g/dL Normal 3.2-5.0 [facility] Comment on above: Order Comment: 'TROP ' Serial specimen #1, #2 or #3: 1 Performed By: #### L 501.4020, L503.6005, L500.4050, L503.6620, L100.0100, L501.2450 ####[facility] [address] [place], [address] Albumin/Globulin [Mass ratio] 0.9 {ratio} Normal 0.9-2.4 [facility] Comment on above: Order Comment: 'TROP ' Serial specimen #1, #2 or #3: 1 Performed By: #### L 501.4020, L503.6005, L500.4050, L503.6620, L100.0100, L501.2450 ####[facility] [address] [place], [address] ALK P 198 U/L High 45-117 [facility] Comment on above: Order Comment: 'TROP ' Serial specimen #1, #2 or #3: 1 Performed By: #### L 501.4020, L503.6005, L500.4050, L503.6620, L100.0100, L501.2450 ####[facility] [address] [place], [address] ALT [Catalytic activity/Vol] 71 U/L High 13-56 [facility] Comment on above: Order Comment: 'TROP ' Serial specimen #1, #2 or #3: 1 Performed By: #### L 501.4020, L503.6005, L500.4050, L503.6620, L100.0100, L501.2450 ####[facility] [address] [place], [address] AST [Catalytic activity/Vol] 93 U/L High 15-37 [facility] Comment on above: Order Comment: 'TROP ' Serial specimen #1, #2 or #3: 1 Performed By: #### L 501.4020, L503.6005, L500.4050, L503.6620, L100.0100, L501.2450 ####[facility] [address] [place], [address] Bilirubin [Mass/Vol] 0.50 mg/dL Normal 0.20-1.00 [facility] Comment on above: Order Comment: 'TROP ' Serial specimen #1, #2 or #3: 1 Result Comment: For patients on eltrombopag therapy, use of Dimension [place] TBIL is not recommended. Performed By: #### L 501.4020, L503.6005, L500.4050, L503.6620, L100.0100, L501.2450 ####[facility] [address] [place], [address] BUN/CRE 15.6 RATIO Normal 10-20 [facility] Comment on above: Order Comment: 'TROP ' Serial specimen #1, #2 or #3: 1 Performed By: #### L 501.4020, L503.6005, L500.4050, L503.6620, L100.0100, L501.2450 ####[facility] [address] [place], [address] CA,Total 9.8 mg/dL Normal 8.5-10.1 [facility] Comment on above: Order Comment: 'TROP ' Serial specimen #1, #2 or #3: 1 Performed By: #### L 501.4020, L503.6005, L500.4050, L503.6620, L100.0100, L501.2450 ####[facility] [address] [place], [address] Chloride [Moles/Vol] 98 mmol/L Normal 98-107 [facility] Comment on above: Order Comment: 'TROP ' Serial specimen #1, #2 or #3: 1 Performed By: #### L 501.4020, L503.6005, L500.4050, L503.6620, L100.0100, L501.2450 ####[facility] [id number] [place], [address] CO2 [Moles/Vol] 29.0 mmol/L Normal 21.0-32.0 [facility] Comment on above: Order Comment: 'TROP ' Serial specimen #1, #2 or #3: 1 Performed By: #### L 501.4020, L503.6005, L500.4050, L503.6620, L100.0100, L501.2450 ####[facility] [id number] [place], [address] Creatinine [Mass/Vol] 1.54 mg/dL High 0.55-1.02 [facility] Comment on above: Order Comment: 'TROP ' Serial specimen #1, #2 or #3: 1 Result Comment: The validity of the calculated GFR GFRAA in patients over70 years has not been determined. Clinical correlation isessential. Performed By: #### L 501.4020, L503.6005, L500.4050, L503.6620, L100.0100, L501.2450 ####[facility] [address] [place], [address] ECRCL 40.19 ml/min Normal [facility] Comment on above: Order Comment: 'TROP ' Serial specimen #1, #2 or #3: 1 Performed By: #### L 501.4020, L503.6005, L500.4050, L503.6620, L100.0100, L501.2450 ####[facility] [address] [place], [address] EST GFR - AA 43 mL/min Low >60 [facility] Comment on above: Order Comment: 'TROP ' Serial specimen #1, #2 or #3: 1 Result Comment: Afri can Bahraini GFR Calc Performed By: #### L 501.4020, L503.6005, L500.4050, L503.6620, L100.0100, L501.2450 ####[facility] [address] [place], [address] GAP 8 Normal 5-15 [facility] Comment on above: Order Comment: 'TROP ' Serial specimen #1, #2 or #3: 1 Performed By: #### L 501.4020, L503.6005, L500.4050, L503.6620, L100.0100, L501.2450 ####[facility] [address] [place], [address] GFR/1.73 sq M.predicted among non-blacks MDRD (S/P/Bld) [Vol rate/Area] 35 mL/min/{1.73_m2} Low >60 [facility] Comment on above: Order Comment: 'TROP ' Serial specimen #1, #2 or #3: 1 Result Comment: Non- GFR Calc Performed By: #### L 501.4020, L503.6005, L500.4050, L503.6620, L100.0100, L501.2450 ####[facility] [address] [place], [address] Globulin (S) [Mass/Vol] 3.9 g/dL Normal 2.2-4.2 [facility] Comment on above: Order Comment: 'TROP ' Serial specimen #1, #2 or #3: 1 Performed By: #### L 501.4020, L503.6005, L500.4050, L503.6620, L100.0100, L501.2450 ####[facility] [address] [place], [address] Glucose [Mass/Vol] 241 mg/dL High 74-106 [facility] Comment on above: Order Comment: 'TROP ' Serial specimen #1, #2 or #3: 1 Result Comment: Gluc ose result greater than or equal to 200 mg/dLsuggests DIABETES MELLITUS per A.D.A. criteria. Performed By: #### L 501.4020, L503.6005, L500.4050, L503.6620, L100.0100, L501.2450 ####[facility] [address] [place], [address] Potassium [Moles/Vol] 3.9 mmol/L Normal 3.5-5.1 [facility] Comment on above: Order Comment: 'TROP ' Serial specimen #1, #2 or #3: 1 Performed By: #### L 501.4020, L503.6005, L500.4050, L503.6620, L100.0100, L501.2450 ####[facility] [address] [place], [address] Sodium [Moles/Vol] 134 mmol/L Low 136-145 [facility] Comment on above: Order Comment: 'TROP ' Serial specimen #1, #2 or #3: 1 Performed By: #### L 501.4020, L503.6005, L500.4050, L503.6620, L100.0100, L501.2450 ####[facility] [address] [place], [address] T PROT 7.5 g/dL Normal 6.4-8.2 [facility] Comment on above: Order Comment: 'TROP ' Serial specimen #1, #2 or #3: 1 Performed By: #### L 501.4020, L503.6005, L500.4050, L503.6620, L100.0100, L501.2450 ####[facility] [address] [place], [address] Urea nitrogen [Mass/Vol] 24 mg/dL High 7-18 [facility] Comment on above: Order Comment: 'TROP ' Serial specimen #1, #2 or #3: 1 Performed By: #### L 501.4020, L503.6005, L500.4050, L503.6620, L100.0100, L501.2450 ####[facility] [address] [place], [address] Emergency Department Summary on 11-05-2024 Emergency Department Summary Normal [facility] Eosinophil percentageOrdered By: Trever Terry on 11-05-2024 Eosinophils/100 WBC (Bld) 2.4 % 0-5 [facility] Epithelial cells.squamous LM Ql (Urine sed)Ordered By: Trever Terry on 11-05-2024 Epithelial cells.squamous LM.HPF (Urine sed) [#/Area] 0 /[HPF] 5-10 [facility] Erythrocyte distribution wid th ratioOrdered By: Trever Terry on 11-05-2024 Erythrocyte distribution width (RBC) [Ratio] 14.1 % 11.6-14.6 [facility] Erythrocyte distribution wid th standard deviationOrdered By: Trever Terry on 11-05-2024 Erythrocyte distribution width (RBC) [Entitic vol] 51.8 fL High 35.1-43.9 [facility] Erythrocyte distribution width (RBC) [Ratio] 51.8 fl High 35.1-43.9 [facility] Estimated glomerular filtrat ion rate (GFR) AmericanOrdered By: Trever Terry on 11-05-2024 Estimated GFR (MDRD) Amer 43 mL/min Low >60 [facility] Comment on above: GFR Calc Estimation of creatinine masoud aranceOrdered By: Trever Terry on 11-05-2024 Estimated Creatinine Clearance Calc 40.19 ml/min [facility] Glomerular filtration rate ( GFR) estimationOrdered By: Trever Terry on 11-05-2024 Estimated GFR (MDRD) Non-Af Amer 35 mL/min Low >60 [facility] Comment on above: Non- GFR Calc GFR/1.73 sq M.predicted among non-blacks MDRD (S/P/Bld) [Vol rate/Area] 35 mL/min/{1.73_m2} Low >60 [facility] Comment on above: Non- GFR Calc Glucose Ql (U)Ordered By: peter Terry on 11-05-2024 Glucose (U) [Mass/Vol] 1000 mg/dL High Normal [facility] Glucose measurementOrdered B y: Trever Terry on 11-05-2024 Glucose [Mass/Vol] 241 mg/dL High 74-106 [facility] Comment on above: Glucose result great er than or equal to 200 mg/dLsuggests DIABETES MELLITUS per A.D.A. criteria. Hematocrit Auto (Bld) [Volum e fraction]Ordered By: Trever Terry on 11-05-2024 Hematocrit (Bld) [Volume fraction] 39.3 % 37-47 [facility] Hemoglobin measurementOrdere d By: Trever Terry on 11-05-2024 Hemoglobin (Bld) [Mass/Vol] 13.5 g/dL 12.0-15.0 [facility] Immature granulocytes/100 WB C Auto (Bld)Ordered By: Trever Terry on 11-05-2024 Immature granulocytes/100 WBC (Bld) 0.300 % 0.0-0.9 [facility] Comment on above: IG% - Immature Granu locytes (promyelocytes, myelocytes and metamyelocytes) > 1% indicates that a LEFT SHIFT is Present. Influenza virus A and B and SARS-CoV-2 (COVID-19) and Respiratory syncytial virus RNAOrdered By: Trever Terry on 11-05-2024 SARS-CoV-2 (COVID-19) RNA WES+probe Ql (Unsp spec) [facility] Ketones Test strip Ql (U)Ord ered By: Trever Terry on 11-05-2024 Ketones Ql (U) Negative Negative [facility] L501.4020on 11-05-2024 TROPONIN-I HS 6 pg/mL Normal 3.0-54.0 [facility] Comment on above: Order Comment: 'TROP ' Serial specimen #1, #2 or #3: 1 Result Comment: Plea se Note: New Test Units and Gender Specific Reference Ranges. For more information see Policy Stat Procedure [place] High Sensitivity Troponin (TNIH) and attachments. Performed By: #### L 501.4020, L503.6005, L500.4050, L503.6620, L100.0100, L501.2450 ####[facility] [address] [place], [place], [id number] Laboratory - Chemistry and C hemistry - challengeOrdered By: Trever Terry on 11-05-2024 AST [Catalytic activity/Vol] 93 U/L High 15-37 [facility] Lactic Acidon 11-05-2024 Lactate [Moles/Vol] 2.4 mmol/L Invalid Interpretation Code 0.4-1.9 [facility] Comment on above: Order Comment: Y Result Comment: Crit ical Result(s) Called at: 22:34:25 11/05/2024 by:Yaima Singh to [facility]. Results read back by same. Performed By: #### L 503.6005 ####[facility] [address] [place], [address] Lactate [Moles/Vol] 2.6 mmol/L Invalid Interpretation Code 0.4-1.9 [facility] Comment on above: Order Comment: Y Result Comment: Crit ical Result(s) Called at: 19:44:45 11/05/2024 [facility] Results read back by same. Performed By: #### L 501.4020, L503.6005, L500.4050, L503.6620, L100.0100, L501.2450 ####[facility] [address] [place], [address] Lactic acid measurementOrder ed By: Trever Terry on 11-05-2024 Lactate [Moles/Vol] 2.4 mmol/L High 0.4-2.0 [facility] Comment on above: Critical Result(s) C alled at: 22:34:25 11/05/2024 by: Yaima Singh to [facility]. Results read back by same. Lipaseon 11-05-2024 Lipase [Catalytic activity/Vol] 29 U/L Low 73-393 [facility] Comment on above: Order Comment: 'TROP ' Serial specimen #1, #2 or #3: 1 Performed By: #### L 501.4020, L503.6005, L500.4050, L503.6620, L100.0100, L501.2450 ####[facility] [address] [place], [address] Lipase measurementOrdered By : Trever Terry on 11-05-2024 Lipase [Catalytic activity/Vol] 29 U/L Low 73-393 [facility] Lymphocytes Auto (Unsp spec) [#/Vol]Ordered By: Trever Terry on 11-05-2024 Lymphocytes (Bld) [#/Vol] 0.95 10*3/uL 0.83-4.51 [facility] Lymphocytes/100 WBC Auto (Un sp spec)Ordered By: Trever Terry on 11-05-2024 Lymphocytes/100 WBC (Bld) 32.1 % 19-41 [facility] M100.678on 11-05-2024 M100.678 SARS-CoV-2 (COVID 19 ) Negative INFLUENZA A Negative INFLUENZA B Negative RSV PCR Negative Normal [facility] Comment on above: Performed By: #### M 100.678 ####[facility] [address] [place], [address] MCV (mean corpuscular volume ) determinationOrdered By: Trever Terry on 11-05-2024 MCV (RBC) [Entitic vol] 100.8 fL High 81-99 [facility] Mean corpuscular hemoglobin (MCH) determinationOrdered By: Trever Terry on 11-05-2024 MCH (RBC) [Entitic mass] 34.6 pg High 27.0-32.0 [facility] Mean corpuscular hemoglobin concentration (MCHC) determinationOrdered By: Trever Terry on 11-05-2024 MCHC (RBC) [Mass/Vol] 34.4 g/dL 32-36 [facility] Mean platelet volume determi nationOrdered By: Trever Terry on 11-05-2024 Platelet mean volume (Bld) [Entitic vol] 9.6 fL 6.2-12.0 [facility] Microscopic analysis of urin e for red blood cells (RBC)Ordered By: Trever Terry on 11-05-2024 Microscopic analysis of urine for red blood cells (RBC) 0-5 SEEN /hpf 0-5 [facility] Urine RBC 0-5 SEEN /hpf 0-5 [facility] Monocyte percentageOrdered B y: Trever Terry on 11-05-2024 Monocytes/100 WBC (Bld) 8.8 % 0-10 [facility] Mucus LM Ql (Urine sed)Order ed By: Trever Terry on 11-05-2024 Mucus Ql (Urine sed) 0 SEEN /hpf [facility] Neutrophil percentageOrdered By: Trever Terry on 11-05-2024 Neutrophils/100 WBC (Bld) 54.4 % 47-70 [facility] Nitrite Test strip Ql (U)Ord ered By: Trever Terry on 11-05-2024 Nitrite Ql (U) Negative Negative [facility] Nucleated red blood cell per centageOrdered By: Trever Terry on 11-05-2024 Nucleated RBC/100 WBC (Bld) [Ratio] 0 % 0-5 [facility] Platelet countOrdered By: David Terry on 11-05-2024 Platelets (Bld) [#/Vol] 208 10*3/uL 150-450 [facility] Potassium measurementOrdered By: Trever Terry on 11-05-2024 Potassium [Moles/Vol] 3.9 mmol/L 3.5-5.1 [facility] Protein Test strip Ql (U)Ord ered By: Trever Terry on 11-05-2024 Protein Ql (U) 15 mg/dl High Negative [facility] RBC Auto (Bld) [#/Vol]Ordere d By: Trever Terry on 11-05-2024 RBC (Bld) [#/Vol] 3.90 10*6/uL Low 4.2-5.4 [facility] Serum anion gap measurementO rdered By: Trever Terry on 11-05-2024 Anion gap [Moles/Vol] 8 mmol/L 5-15 [facility] Serum globulin measurementOr dered By: Trever Terry on 11-05-2024 Globulin (S) [Mass/Vol] 3.9 g/dL 2.2-4.2 [facility] Serum or plasma alanine skinner otransferase (ALT) measurementOrdered By: Trever Terry on 11-05-2024 ALT [Catalytic activity/Vol] 71 U/L High 13-56 [facility] Serum or plasma albumin amanda urement (mass/volume)Ordered By: Trever Terry on 11-05-2024 Albumin [Mass/Vol] 3.6 g/dL 3.2-5.0 [facility] Serum or plasma alkaline domenico sphatase measurementOrdered By: Trever Terry on 11-05-2024 ALP [Catalytic activity/Vol] 198 U/L High 45-117 [facility] Serum or plasma calcium amanda urement (mass/volume)Ordered By: Trever Terry on 11-05-2024 Calcium [Mass/Vol] 9.8 mg/dL 8.5-10.1 [facility] Serum or plasma creatinine m easurement (mass/volume)Ordered By: Trever Terry on 11-05-2024 Creatinine [Mass/Vol] 1.54 mg/dL High 0.55-1.02 [facility] Comment on above: The validity of the calculated GFR & GFRAA in patients over 70 years has not been determined. Clinical correlation is essential. Serum or plasma urea nitroge n measurement (mass/volume)Ordered By: Trever Trery on 11-05-2024 Urea nitrogen [Mass/Vol] 24 mg/dL High 7-18 [facility] Sodium levelOrdered By: Vlad Terry on 11-05-2024 Sodium [Moles/Vol] 134 mmol/L Low 136-145 [facility] Squamous epithelial cells de tection in urine sediment by light microscopyOrdered By: Trever Terry on 11-05-2024 Epithelial cells.squamous LM Ql (Urine sed) 0-5 SEEN /hpf 5-10 [facility] Total proteinOrdered By: La Terry on 11-05-2024 Protein [Mass/Vol] 7.5 g/dL 6.4-8.2 [facility] Troponin IOrdered By: Trever Terry on 11-05-2024 Troponin I 6 pg/mL 3.0-54.0 [facility] Comment on above: Please Note: New Ellie t Units and Gender Specific Reference Ranges. For more information see Policy Stat Procedure [place] High Sensitivity Troponin (TNIH) and attachments. Troponin I High Sensitivity 6 pg/mL 3.0-54.0 [facility] Comment on above: Please Note: New Ellie t Units and Gender Specific Reference Ranges. For more information see Policy Stat Procedure [place] High Sensitivity Troponin (TNIH) and attachments. Urinalysis, Completeon 11-05 BACTERIA RARE Normal None Seen [facility] Comment on above: Order Comment: YOGESH CTOR TO SPECIFY Performed By: #### L 400.0001 ####[facility] [address] [place], [address] EPI,SQUAMOUS 0-5 SEEN Normal 5-10 [facility] Comment on above: Order Comment: YOGESH CTOR TO SPECIFY Performed By: #### L 400.0001 ####[facility] [address] [place], [address] RBC 0-5 SEEN Normal 0-5 [facility] Comment on above: Order Comment: YOGESH CTOR TO SPECIFY Performed By: #### L 400.0001 ####[facility] [address] [place], [address] WBC 10-25 SEEN Normal 0-5 [facility] Comment on above: Order Comment: YOGESH CTOR TO SPECIFY Performed By: #### L 400.0001 ####[facility] [address] [place], [address] Mucus Ql (Urine sed) 0 SEEN Normal [facility] Comment on above: Order Comment: YOGESH CTOR TO SPECIFY Performed By: #### L 400.0001 ####[facility] [address] [place], [address] Urine blood detectionOrdered By: Trever Terry on 11-05-2024 Urine Occult Blood 25 /ul High Negative [facility] Urine clarityOrdered By: La Terry on 11-05-2024 Clarity (U) Clear Clear [facility] Urine color determinationOrd ered By: Trever Terry on 11-05-2024 Color (U) Yellow Yellow [facility] Urine cultureOrdered By: La Terry on 11-05-2024 Bacteria identified Cx Nom (U) Mixed Gram Pos & Gram Neg Org Abnormal [facility] Urine glucose detectionOrder ed By: Trever Terry on 11-05-2024 Glucose Ql (U) 1000 mg/dl High Normal [facility] Urine leukocyte esterase det ection by dipstickOrdered By: Trever Terry on 11-05-2024 Leukocyte esterase Test strip Ql (U) 100 /ul High Negative [facility] Urine pHOrdered By: Trever bain on 11-05-2024 pH (U) 6.0 [pH] 5.0 - 8.0 [facility] Urine sediment bacteria coun t by microscopy (number/high power field)Ordered By: Trever Terry on 11-05-2024 Bacteria LM.HPF (Urine sed) [#/Area] RARE /hpf None Seen [facility] Urine specific gravity measu rementOrdered By: Trever Terry on 11-05-2024 Specific gravity (U) [Rel density] 1.010 1.002-1.030 [facility] Urine urobilinogen measureme ntOrdered By: Trever Terry on 11-05-2024 Urobilinogen Ql (U) Normal mg/dl Normal [facility] Urobilinogen Ql (U)Ordered B y: Trever Terry on 11-05-2024 Urine Urobilinogen Normal mg/dl Normal [facility] White blood cell (WBC) count Ordered By: Trever Terry on 11-05-2024 WBC (Bld) [#/Vol] 3.0 10*3/uL Low 4.4-11.0 [facility] White blood cell countOrdere d By: Trever Terry on 11-05-2024 Urine WBC 10-25 SEEN /hpf 0-5 [facility] White blood cell count 10-25 SEEN /hpf 0-5 [facility] Absolute neutrophil countOrd ered By: Kang Pagan on 10-25-2024 Neutrophils (Bld) [#/Vol] 1.5 10*3/uL Low 2.0-7.7 [facility] Basophil percentageOrdered B y: Kang Pagan on 10-25-2024 Basophils/100 WBC (Bld) 1.5 % High 0-1 [facility] CBC W/Diff, Automatedon 10-13 Absolute Lymph 1.18 X10 3/uL Normal 0.83-4.51 [facility] Comment on above: Performed By: #### L 100.0100 ####[facility] [address] [place], [address] Absolute Neut 1.5 X10 3/uL Low 2.0-7.7 [facility] Comment on above: Performed By: #### L 100.0100 ####[facility] [address] [place], [address] Basophils/100 WBC (Bld) 1.5 % High 0-1 [facility] Comment on above: Performed By: #### L 100.0100 ####[facility] [address] [place], [address] Eosinophils/100 WBC (Bld) 3.9 % Normal 0-5 [facility] Comment on above: Performed By: #### L 100.0100 ####[facility] [address] [place], [address] Erythrocyte distribution width (RBC) [Ratio] 14.6 % Normal 11.6-14.6 [facility] Comment on above: Performed By: #### L 100.0100 ####[facility] [address] [place], [address] Hematocrit (Bld) [Volume fraction] 35.9 % Low 37-47 [facility] Comment on above: Performed By: #### L 100.0100 ####[facility] [address] [place], [address] Hemoglobin (Bld) [Mass/Vol] 12.3 g/dL Normal 12.0-15.0 [facility] Comment on above: Performed By: #### L 100.0100 ####[facility] [address] [place], [address] IG% 0.600 Normal 0.0-0.9 [facility] Comment on above: Result Comment: IG% - Immature Granulocytes (promyelocytes, myelocytes andmetamyelocytes) > 1% indicates that a LEFT SHIFT is Present. Performed By: #### L 100.0100 ####[facility] [address] [place], [address] Lymphocytes/100 WBC (Bld) 35.8 % Normal 19-41 [facility] Comment on above: Performed By: #### L 100.0100 ####[facility] [address] [place], [address] MCH (RBC) [Entitic mass] 34.7 pg High 27.0-32.0 [facility] Comment on above: Performed By: #### L 100.0100 ####[facility] [address] [place], [address] MCHC (RBC) [Mass/Vol] 34.3 g/dL Normal 32-36 [facility] Comment on above: Performed By: #### L 100.0100 ####[facility] [address] [place], [address] MCV (RBC) [Entitic vol] 101.4 fL High 81-99 [facility] Comment on above: Performed By: #### L 100.0100 ####[facility] [address] [place], [address] Monocytes/100 WBC (Bld) 14.2 % High 0-10 [facility] Comment on above: Performed By: #### L 100.0100 ####[facility] [address] [place], [address] Neutrophils/100 WBC (Bld) 44.0 % Low 47-70 [facility] Comment on above: Performed By: #### L 100.0100 ####[facility] [address] [place], [address] Nucleated RBC (Bld) [#/Vol] 0 10*3/uL Normal 0-5 [facility] Comment on above: Performed By: #### L 100.0100 ####[facility] [address] [place], [address] Platelet mean volume (Bld) [Entitic vol] 9.5 fL Normal 6.2-12.0 [facility] Comment on above: Performed By: #### L 100.0100 ####[facility] [address] [place], [address] Platelets (Bld) [#/Vol] 158 10*3/uL Normal 150-450 [facility] Comment on above: Performed By: #### L 100.0100 ####[facility] [address] [place], [address] RBC (Bld) [#/Vol] 3.54 10*6/uL Low 4.2-5.4 [facility] Comment on above: Performed By: #### L 100.0100 ####[facility] [address] [place], [address] RDW SD 53.8 fl High 35.1-43.9 [facility] Comment on above: Performed By: #### L 100.0100 ####[facility] [address] [place], [address] WBC (Bld) [#/Vol] 3.3 10*3/uL Low 4.4-11.0 [facility] Comment on above: Performed By: #### L 100.0100 ####[facility] [address] [place], [address] Eosinophil percentageOrdered By: Kang Pagan on 10-25-2024 Eosinophils/100 WBC (Bld) 3.9 % 0-5 [facility] Erythrocyte distribution wid th ratioOrdered By: Kang Pagan on 10-25-2024 Erythrocyte distribution width (RBC) [Ratio] 14.6 % 11.6-14.6 [facility] Erythrocyte distribution wid th standard deviationOrdered By: Kang Pagan on 10-25-2024 Erythrocyte distribution width (RBC) [Entitic vol] 53.8 fL High 35.1-43.9 [facility] Hematocrit Auto (Bld) [Volum e fraction]Ordered By: Kang Pagan on 10-25-2024 Hematocrit (Bld) [Volume fraction] 35.9 % Low 37-47 [facility] Hemoglobin measurementOrdere d By: Kang Pagan on 10-25-2024 Hemoglobin (Bld) [Mass/Vol] 12.3 g/dL 12.0-15.0 [facility] Immature granulocytes/100 WB C Auto (Bld)Ordered By: Kang Pagan on 10-25-2024 Immature granulocytes/100 WBC (Bld) 0.600 % 0.0-0.9 [facility] Comment on above: IG% - Immature Granu locytes (promyelocytes, myelocytes and metamyelocytes) > 1% indicates that a LEFT SHIFT is Present. Lymphocytes Auto (Unsp spec) [#/Vol]Ordered By: Kang Pagan on 10-25-2024 Lymphocytes (Bld) [#/Vol] 1.18 10*3/uL 0.83-4.51 [facility] Lymphocytes/100 WBC Auto (Un sp spec)Ordered By: Kang Pagan on 10-25-2024 Lymphocytes/100 WBC (Bld) 35.8 % 19-41 [facility] MCV (mean corpuscular volume ) determinationOrdered By: Kang Pagan on 10-25-2024 MCV (RBC) [Entitic vol] 101.4 fL High 81-99 [facility] Mean corpuscular hemoglobin (MCH) determinationOrdered By: Kang Pagan on 10-25-2024 MCH (RBC) [Entitic mass] 34.7 pg High 27.0-32.0 [facility] Mean corpuscular hemoglobin concentration (MCHC) determinationOrdered By: Kang Pagan on 10-25-2024 MCHC (RBC) [Mass/Vol] 34.3 g/dL 32-36 [facility] Mean platelet volume determi nationOrdered By: Kang Pagan on 10-25-2024 Platelet mean volume (Bld) [Entitic vol] 9.5 fL 6.2-12.0 [facility] Monocyte percentageOrdered B y: Kang Pagan on 10-25-2024 Monocytes/100 WBC (Bld) 14.2 % High 0-10 [facility] Neutrophil percentageOrdered By: Kang Pagan on 10-25-2024 Neutrophils/100 WBC (Bld) 44.0 % Low 47-70 [facility] Nucleated red blood cell per centageOrdered By: Kang Pagan on 10-25-2024 Nucleated RBC/100 WBC (Bld) [Ratio] 0 % 0-5 [facility] Oncology Visit Reporton 10-13 Oncology Visit Report Normal [facility] Platelet countOrdered By: Germán Pagan on 10-25-2024 Platelets (Bld) [#/Vol] 158 10*3/uL 150-450 [facility] RBC Auto (Bld) [#/Vol]Ordere d By: Kang Pagan on 10-25-2024 RBC (Bld) [#/Vol] 3.54 10*6/uL Low 4.2-5.4 [facility] White blood cell (WBC) count Ordered By: Kang Pagan on 10-25-2024 WBC (Bld) [#/Vol] 3.3 10*3/uL Low 4.4-11.0 [facility] Albumin to globulin ratioOrd ered By: Myron Calvillo on 10-18-2024 Albumin/Globulin [Mass ratio] 1.0 {ratio} 0.9-2.4 [facility] Atypical lymphocyte percenta geOrdered By: Myron Calvillo on 10-18-2024 Atypical Lymphocytes 1+ % [facility] Bilirubin, totalOrdered By: Myron Calvillo on 10-18-2024 Bilirubin [Mass/Vol] 0.50 mg/dL 0.20-1.00 [facility] Comment on above: For patients on eltr ombopag therapy, use of Dimension [place] TBIL is not recommended. Blood manual differential co mment interpretation (narrative result)Ordered By: Myron Calvillo on 10-18-2024 Manual differential comment Marcial (Bld) [Interp] SCANNED [facility] Comment on above: NEUTROPENIA NOTED Blood urea nitrogen (BUN)/cr eatinine ratioOrdered By: Myron Calvillo on 10-18-2024 Urea nitrogen/Creatinine [Mass ratio] 17.1 mg/mg 10-20 [facility] CBC W/Diff, Automatedon - ATYPICAL LYMPH 1+ Normal [facility] Comment on above: Performed By: #### L 504.2610, L100.0100, L500.4050 ####[facility] [address] [place], [address] SMEAR COMMENT SCANNED Normal [facility] Comment on above: Result Comment: NEUT ROPENIA NOTED Performed By: #### L 504.2610, L100.0100, L500.4050 ####[facility] [address] [place], [address] Carbon dioxide measurementOr dered By: Myron Calvillo on 10-18-2024 CO2 [Moles/Vol] 31.0 mmol/L 21.0-32.0 [facility] Chloride measurementOrdered By: Myron Calvillo on 10-18-2024 Chloride [Moles/Vol] 103 mmol/L 98-107 [facility] Comprehensive Metabolic Prof ilon 10-18-2024 Albumin [Mass/Vol] 3.2 g/dL Normal 3.2-5.0 [facility] Comment on above: Performed By: #### L 504.2610, L100.0100, L500.4050 ####[facility] [address] [place], [address] Albumin/Globulin [Mass ratio] 1.0 {ratio} Normal 0.9-2.4 [facility] Comment on above: Performed By: #### L 504.2610, L100.0100, L500.4050 ####[facility] [address] [place], [address] ALK P 108 U/L Normal 45-117 [facility] Comment on above: Performed By: #### L 504.2610, L100.0100, L500.4050 ####[facility] [address] [place], [address] ALT [Catalytic activity/Vol] 44 U/L Normal 13-56 [facility] Comment on above: Performed By: #### L 504.2610, L100.0100, L500.4050 ####[facility] [address] [place], [address] AST [Catalytic activity/Vol] 62 U/L High 15-37 [facility] Comment on above: Performed By: #### L 504.2610, L100.0100, L500.4050 ####[facility] [address] [place], [address] Bilirubin [Mass/Vol] 0.50 mg/dL Normal 0.20-1.00 [facility] Comment on above: Result Comment: For patients on eltrombopag therapy, use of Dimension [place] TBIL is not recommended. Performed By: #### L 504.2610, L100.0100, L500.4050 ####[facility] [address] [place], [address] BUN/CRE 17.1 RATIO Normal 10-20 [facility] Comment on above: Performed By: #### L 504.2610, L100.0100, L500.4050 ####[facility] [address] [place], [address] CA,Total 9.1 mg/dL Normal 8.5-10.1 [facility] Comment on above: Performed By: #### L 504.2610, L100.0100, L500.4050 ####[facility] [address] [place], [address] Chloride [Moles/Vol] 103 mmol/L Normal 98-107 [facility] Comment on above: Performed By: #### L 504.2610, L100.0100, L500.4050 ####[facility] [address] [place], [address] CO2 [Moles/Vol] 31.0 mmol/L Normal 21.0-32.0 [facility] Comment on above: Performed By: #### L 504.2610, L100.0100, L500.4050 ####[facility] [address] [place], [address] Creatinine [Mass/Vol] 1.29 mg/dL High 0.55-1.02 [facility] Comment on above: Result Comment: The validity of the calculated GFR GFRAA in patients over70 years has not been determined. Clinical correlation isessential. Performed By: #### L 504.2610, L100.0100, L500.4050 ####[facility] [address] [place], [address] ECRCL 48.41 ml/min Normal [facility] Comment on above: Performed By: #### L 504.2610, L100.0100, L500.4050 ####[facility] [address] [place], [address] EST GFR - AA 52 mL/min Low >60 [facility] Comment on above: Result Comment: Afri can Bahraini GFR Calc Performed By: #### L 504.2610, L100.0100, L500.4050 ####[facility] [address] [place], [address] GAP 5 Normal 5-15 [facility] Comment on above: Performed By: #### L 504.2610, L100.0100, L500.4050 ####[facility] [address] [place], [address] GFR/1.73 sq M.predicted among non-blacks MDRD (S/P/Bld) [Vol rate/Area] 43 mL/min/{1.73_m2} Low >60 [facility] Comment on above: Result Comment: Non- GFR Calc Performed By: #### L 504.2610, L100.0100, L500.4050 ####[facility] [address] [place], [address] Globulin (S) [Mass/Vol] 3.3 g/dL Normal 2.2-4.2 [facility] Comment on above: Performed By: #### L 504.2610, L100.0100, L500.4050 ####[facility] [address] [place], [address] Glucose [Mass/Vol] 203 mg/dL High 74-106 [facility] Comment on above: Result Comment: Gluc ose result greater than or equal to 200 mg/dLsuggests DIABETES MELLITUS per A.D.A. criteria. Performed By: #### L 504.2610, L100.0100, L500.4050 ####[facility] [address] [place], [address] Potassium [Moles/Vol] 3.9 mmol/L Normal 3.5-5.1 [facility] Comment on above: Performed By: #### L 504.2610, L100.0100, L500.4050 ####[facility] [address] [place], [address] Sodium [Moles/Vol] 140 mmol/L Normal 136-145 [facility] Comment on above: Performed By: #### L 504.2610, L100.0100, L500.4050 ####[facility] [address] [place], [address] T PROT 6.5 g/dL Normal 6.4-8.2 [facility] Comment on above: Performed By: #### L 504.2610, L100.0100, L500.4050 ####[facility] [address] [place], [address] Urea nitrogen [Mass/Vol] 22 mg/dL High 7-18 [facility] Comment on above: Performed By: #### L 504.2610, L100.0100, L500.4050 ####[facility] [address] [place], [address] Estimated glomerular filtrat ion rate (GFR) AmericanOrdered By: Myron Calvillo on 10-18-2024 Estimated GFR (MDRD) Amer 52 mL/min Low >60 [facility] Comment on above: GFR Calc Estimation of creatinine masoud aranceOrdered By: Myron Calvillo on 10-18-2024 Estimated Creatinine Clearance Calc 48.41 ml/min [facility] Glomerular filtration rate ( GFR) estimationOrdered By: Myron Calvillo on 10-18-2024 Estimated GFR (MDRD) Non-Af Amer 43 mL/min Low >60 [facility] Comment on above: Non- GFR Calc Glucose measurementOrdered B y: Myron Calvillo on 10-18-2024 Glucose [Mass/Vol] 203 mg/dL High 74-106 [facility] Comment on above: Glucose result great er than or equal to 200 mg/dLsuggests DIABETES MELLITUS per A.D.A. criteria. LDHon 10-18-2024 LDH 165 U/L Normal 84-246 [facility] Comment on above: Order Comment: 1 Performed By: #### L 504.2610, L100.0100, L500.4050 ####[facility] [address] [place], [address] Laboratory - Chemistry and C hemistry - challengeOrdered By: Myron Calvillo on 10-18-2024 AST [Catalytic activity/Vol] 62 U/L High 15-37 [facility] Lactate dehydrogenase (LDH) measurementOrdered By: Myron Calvillo on 10-18-2024 LDH [Catalytic activity/Vol] 165 U/L 84-246 [facility] Manual differential comment Marcial (Bld) [Interp]Ordered By: Myron Calvillo on 10-18-2024 Differential Comment SCANNED [facility] Comment on above: NEUTROPENIA NOTED Oncology Visit Reporton Oncology Visit Report Normal [facility] Potassium measurementOrdered By: Myron Calvillo on 10-18-2024 Potassium [Moles/Vol] 3.9 mmol/L 3.5-5.1 [facility] Serum anion gap measurementO rdered By: Myron Calvillo on 10-18-2024 Anion gap [Moles/Vol] 5 mmol/L 5-15 [facility] Serum globulin measurementOr dered By: Myron Calvillo on 10-18-2024 Globulin (S) [Mass/Vol] 3.3 g/dL 2.2-4.2 [facility] Serum or plasma alanine skinner otransferase (ALT) measurementOrdered By: Myron Calvillo on 10-18-2024 ALT [Catalytic activity/Vol] 44 U/L 13-56 [facility] Serum or plasma albumin amanda urement (mass/volume)Ordered By: Myron Calvillo on 10-18-2024 Albumin [Mass/Vol] 3.2 g/dL 3.2-5.0 [facility] Serum or plasma alkaline domenico sphatase measurementOrdered By: Myron Calvillo on 10-18-2024 ALP [Catalytic activity/Vol] 108 U/L 45-117 [facility] Serum or plasma calcium amanda urement (mass/volume)Ordered By: Myron Calvillo on 10-18-2024 Calcium [Mass/Vol] 9.1 mg/dL 8.5-10.1 [facility] Serum or plasma creatinine m easurement (mass/volume)Ordered By: Myron Calvillo on 10-18-2024 Creatinine [Mass/Vol] 1.29 mg/dL High 0.55-1.02 [facility] Comment on above: The validity of the calculated GFR & GFRAA in patients over 70 years has not been determined. Clinical correlation is essential. Serum or plasma urea nitroge n measurement (mass/volume)Ordered By: Myron Calvillo on 10-18-2024 Urea nitrogen [Mass/Vol] 22 mg/dL High 7-18 [facility] Sodium levelOrdered By: Yaakov Calvillo on 10-18-2024 Sodium [Moles/Vol] 140 mmol/L 136-145 [facility] Total proteinOrdered By: Kavon Calvillo on 10-18-2024 Protein [Mass/Vol] 6.5 g/dL 6.4-8.2 [facility] CBC W/Diff, Automatedon 01-0 Absolute Lymph 0.65 X10 3/uL Low 0.83-4.51 [facility] Comment on above: Performed By: #### L 500.4050, L504.2610, L100.0100 ####[facility] [address] [place], [address] Absolute Neut 1.7 X10 3/uL Low 2.0-7.7 [facility] Comment on above: Performed By: #### L 500.4050, L504.2610, L100.0100 ####[facility] [address] [place], [address] Basophils/100 WBC (Bld) 1.1 % High 0-1 [facility] Comment on above: Performed By: #### L 500.4050, L504.2610, L100.0100 ####[facility] [address] [place], [address] Eosinophils/100 WBC (Bld) 1.8 % Normal 0-5 [facility] Comment on above: Performed By: #### L 500.4050, L504.2610, L100.0100 ####[facility] [address] [place], [address] Erythrocyte distribution width (RBC) [Ratio] 13.5 % Normal 11.6-14.6 [facility] Comment on above: Performed By: #### L 500.4050, L504.2610, L100.0100 ####[facility] [address] [place], [address] Hematocrit (Bld) [Volume fraction] 35.5 % Low 37-47 [facility] Comment on above: Performed By: #### L 500.4050, L504.2610, L100.0100 ####[facility] [address] [place], [address] Hemoglobin (Bld) [Mass/Vol] 12.3 g/dL Normal 12.0-15.0 [facility] Comment on above: Performed By: #### L 500.4050, L504.2610, L100.0100 ####[facility] [address] [place], [address] IG% 0.700 Normal 0.0-0.9 [facility] Comment on above: Result Comment: IG% - Immature Granulocytes (promyelocytes, myelocytes andmetamyelocytes) > 1% indicates that a LEFT SHIFT is Present. Performed By: #### L 500.4050, L504.2610, L100.0100 ####[facility] [address] [place], [address] Lymphocytes/100 WBC (Bld) 23.7 % Normal 19-41 [facility] Comment on above: Performed By: #### L 500.4050, L504.2610, L100.0100 ####[facility] [address] [place], [address] MCH (RBC) [Entitic mass] 34.8 pg High 27.0-32.0 [facility] Comment on above: Performed By: #### L 500.4050, L504.2610, L100.0100 ####[facility] [address] [place], [address] MCHC (RBC) [Mass/Vol] 34.6 g/dL Normal 32-36 [facility] Comment on above: Performed By: #### L 500.4050, L504.2610, L100.0100 ####[facility] [address] [place], [address] MCV (RBC) [Entitic vol] 100.6 fL High 81-99 [facility] Comment on above: Performed By: #### L 500.4050, L504.2610, L100.0100 ####[facility] [address] [place], [address] Monocytes/100 WBC (Bld) 10.9 % High 0-10 [facility] Comment on above: Performed By: #### L 500.4050, L504.2610, L100.0100 ####[facility] [address] [place], [address] Neutrophils/100 WBC (Bld) 61.8 % Normal 47-70 [facility] Comment on above: Performed By: #### L 500.4050, L504.2610, L100.0100 ####[facility] [address] [place], [address] Nucleated RBC (Bld) [#/Vol] 0 10*3/uL Normal 0-5 [facility] Comment on above: Performed By: #### L 500.4050, L504.2610, L100.0100 ####[facility] [address] [place], [address] Platelet mean volume (Bld) [Entitic vol] 9.8 fL Normal 6.2-12.0 [facility] Comment on above: Performed By: #### L 500.4050, L504.2610, L100.0100 ####[facility] [address] [place], [address] Platelets (Bld) [#/Vol] 140 10*3/uL Low 150-450 [facility] Comment on above: Performed By: #### L 500.4050, L504.2610, L100.0100 ####[facility] [address] [place], [address] RBC (Bld) [#/Vol] 3.53 10*6/uL Low 4.2-5.4 [facility] Comment on above: Performed By: #### L 500.4050, L504.2610, L100.0100 ####[facility] [address] [place], [address] RDW SD 49.7 fl High 35.1-43.9 [facility] Comment on above: Performed By: #### L 500.4050, L504.2610, L100.0100 ####[facility] [address] [place], [address] WBC (Bld) [#/Vol] 2.7 10*3/uL Low 4.4-11.0 [facility] Comment on above: Performed By: #### L 500.4050, L504.2610, L100.0100 ####[facility] [address] [place], [address] Comprehensive Metabolic Prof ilon 09-20-2024 Albumin [Mass/Vol] 3.1 g/dL Low 3.2-5.0 [facility] Comment on above: Order Comment: 1 Performed By: #### L 500.4050, L504.2610, L100.0100 ####[facility] [address] [place], [address] Albumin/Globulin [Mass ratio] 0.9 {ratio} Normal 0.9-2.4 [facility] Comment on above: Order Comment: 1 Performed By: #### L 500.4050, L504.2610, L100.0100 ####[facility] [address] [place], [address] ALK P 118 U/L High 45-117 [facility] Comment on above: Order Comment: 1 Performed By: #### L 500.4050, L504.2610, L100.0100 ####[facility] [address] [place], [address] ALT [Catalytic activity/Vol] 36 U/L Normal 13-56 [facility] Comment on above: Order Comment: 1 Performed By: #### L 500.4050, L504.2610, L100.0100 ####[facility] [address] [place], [address] AST [Catalytic activity/Vol] 41 U/L High 15-37 [facility] Comment on above: Order Comment: 1 Performed By: #### L 500.4050, L504.2610, L100.0100 ####[facility] [address] [place], [address] Bilirubin [Mass/Vol] 0.50 mg/dL Normal 0.20-1.00 [facility] Comment on above: Order Comment: 1 Result Comment: For patients on eltrombopag therapy, use of Dimension [place] TBIL is not recommended. Performed By: #### L 500.4050, L504.2610, L100.0100 ####[facility] [address] [place], [address] BUN/CRE 11.8 RATIO Normal 10-20 [facility] Comment on above: Order Comment: 1 Performed By: #### L 500.4050, L504.2610, L100.0100 ####[facility] [address] [place], [address] CA,Total 9.1 mg/dL Normal 8.5-10.1 [facility] Comment on above: Order Comment: 1 Performed By: #### L 500.4050, L504.2610, L100.0100 ####[facility] [address] [place], [address] Chloride [Moles/Vol] 101 mmol/L Normal 98-107 [facility] Comment on above: Order Comment: 1 Performed By: #### L 500.4050, L504.2610, L100.0100 ####[facility] [address] [place], [address] CO2 [Moles/Vol] 28.0 mmol/L Normal 21.0-32.0 [facility] Comment on above: Order Comment: 1 Performed By: #### L 500.4050, L504.2610, L100.0100 ####[facility] [address] [place], [address] Creatinine [Mass/Vol] 1.61 mg/dL High 0.55-1.02 [facility] Comment on above: Order Comment: 1 Result Comment: The validity of the calculated GFR GFRAA in patients over70 years has not been determined. Clinical correlation isessential. Performed By: #### L 500.4050, L504.2610, L100.0100 ####[facility] [address] [place], [address] ECRCL 38.79 ml/min Normal [facility] Comment on above: Order Comment: 1 Performed By: #### L 500.4050, L504.2610, L100.0100 ####[facility] [address] [place], [address] EST GFR - AA 41 mL/min Low >60 [facility] Comment on above: Order Comment: 1 Result Comment: Afri can Bahraini GFR Calc Performed By: #### L 500.4050, L504.2610, L100.0100 ####[facility] [address] [place], [address] GAP 8 Normal 5-15 [facility] Comment on above: Order Comment: 1 Performed By: #### L 500.4050, L504.2610, L100.0100 ####[facility] [address] [place], [address] GFR/1.73 sq M.predicted among non-blacks MDRD (S/P/Bld) [Vol rate/Area] 34 mL/min/{1.73_m2} Low >60 [facility] Comment on above: Order Comment: 1 Result Comment: Non- GFR Calc Performed By: #### L 500.4050, L504.2610, L100.0100 ####[facility] [address] [place], [address] Globulin (S) [Mass/Vol] 3.6 g/dL Normal 2.2-4.2 [facility] Comment on above: Order Comment: 1 Performed By: #### L 500.4050, L504.2610, L100.0100 ####[facility] [address] [place], [address] Glucose [Mass/Vol] 227 mg/dL High 74-106 [facility] Comment on above: Order Comment: 1 Result Comment: Gluc ose result greater than or equal to 200 mg/dLsuggests DIABETES MELLITUS per A.D.A. criteria. Performed By: #### L 500.4050, L504.2610, L100.0100 ####[facility] [address] [place], [address] Potassium [Moles/Vol] 3.8 mmol/L Normal 3.5-5.1 [facility] Comment on above: Order Comment: 1 Performed By: #### L 500.4050, L504.2610, L100.0100 ####[facility] [address] [place], [address] Sodium [Moles/Vol] 137 mmol/L Normal 136-145 [facility] Comment on above: Order Comment: 1 Performed By: #### L 500.4050, L504.2610, L100.0100 ####[facility] [address] [place], [address] T PROT 6.7 g/dL Normal 6.4-8.2 [facility] Comment on above: Order Comment: 1 Performed By: #### L 500.4050, L504.2610, L100.0100 ####[facility] [address] [place], [address] Urea nitrogen [Mass/Vol] 19 mg/dL High 7-18 [facility] Comment on above: Order Comment: 1 Performed By: #### L 500.4050, L504.2610, L100.0100 ####[facility] [address] [place], [address] LDHon 09-20-2024 LDH 181 U/L Normal 84-246 [facility] Comment on above: Order Comment: 1 Performed By: #### L 500.4050, L504.2610, L100.0100 ####[facility] [address], [address] Oncology Visit Reporton Oncology Visit Report Normal [facility] CA 15-3on 08-27-2024 CA 15-3 32.1 U/mL Abnormal 0.0-25.0 [facility] Comment on above: Result Comment: Vputi Electrochemiluminescence Immunoassay(ECLIA)Values obtained with different assay methods or kits cannotbe used interchangeably. Results cannot be interpreted asabsolute evidence of the presence or absence of malignantdisease.Performed at: [employer] [place] [id number] Director: Reese Willingham PhD, Phone: [phone] Performed By: #### L 3100.2300, L100.0100, L3100.5030, L3100.5040 ####[facility] [address] [place], [address] CA 27.29on 08-27-2024 CA 27.29 28.3 U/mL Normal 0.0-38.6 [facility] Comment on above: Result Comment: Siem BeiBeiaur Immunochemiluminometric Methodology (ICMA)Values obtained with different assay methods or kits cannotbe used interchangeably. Results cannot be interpreted asabsolute evidence of the presence or absence of malignantdisease. Performed By: #### L 3100.2300, L100.0100, L3100.5030, L3100.5040 ####[facility] [address] [place], [place], [address] Carcinoembryonic Antigenon 1 10-28-2023 CEA 9.9 ng/mL High 0.0-4.7 [facility] Comment on above: Result Comment: Nons mokers <3.9 Smokers <5.6[employer] Electrochemiluminescence Immunoassay(ECLIA)Values obtained with different assay methods or kitscannot be used interchangeably. Results cannot beinterpreted as absolute evidence of the presence orabsence of malignant disease. Performed By: #### L 3100.2300, L100.0100, L3100.5030, L3100.5040 ####[facility] [address] [place], [address] CA 15-3Ordered By: Sultana dumont on 08-23-2024 CA 15-3 Antigen 32.1 U/mL High 0.0-25.0 [facility] Comment on above: [employer] El ectrochemiluminescence Immunoassay(ECLIA)Values obtained with different assay methods or kits cannotbe used interchangeably. Results cannot be interpreted asabsolute evidence of the presence or absence of malignantdisease.Performed at: [facility] [place] [id number] Director: Reese Willingham PhD, Phone: [phone] CA 27.29Ordered By: Sultana butler on 08-23-2024 CA 27.29 28.3 U/mL 0.0-38.6 [facility] Comment on above: [employer]ens Centaur Immu nochemiluminometric Methodology (ICMA)Values obtained with different assay methods or kits cannotbe used interchangeably. Results cannot be interpreted asabsolute evidence of the presence or absence of malignantdisease. CBC W/Diff, Automatedon 08-12 SMEAR COMMENT SCANNED Normal [facility] Comment on above: Performed By: #### L 3100.2300, L100.0100, L3100.5030, L3100.5040 ####[facility] [address] [place], [address] Comprehensive Metabolic Prof ilon 08-23-2024 Albumin [Mass/Vol] 3.4 g/dL Normal 3.2-5.0 [facility] Comment on above: Order Comment: 1 Performed By: #### L 500.4050, L504.2610 ####[facility] [address] [place], [address] Albumin/Globulin [Mass ratio] 0.9 {ratio} Normal 0.9-2.4 [facility] Comment on above: Order Comment: 1 Performed By: #### L 500.4050, L504.2610 ####[facility] [address] [place], [address] ALK P 118 U/L High 45-117 [facility] Comment on above: Order Comment: 1 Performed By: #### L 500.4050, L504.2610 ####[facility] [address] [place], [address] ALT [Catalytic activity/Vol] 48 U/L Normal 13-56 [facility] Comment on above: Order Comment: 1 Performed By: #### L 500.4050, L504.2610 ####[facility] [address] [place], [address] AST [Catalytic activity/Vol] 50 U/L High 15-37 [facility] Comment on above: Order Comment: 1 Performed By: #### L 500.4050, L504.2610 ####[facility] [address] [place], [address] Bilirubin [Mass/Vol] 0.50 mg/dL Normal 0.20-1.00 [facility] Comment on above: Order Comment: 1 Result Comment: For patients on eltrombopag therapy, use of Dimension [place] TBIL is not recommended. Performed By: #### L 500.4050, L504.2610 ####[facility] [address] [place], [address] BUN/CRE 14.8 RATIO Normal 10-20 [facility] System Comment on above: Order Comment: 1 Performed By: #### L 500.4050, L504.2610 ####[facility] [address] [place], [address] CA,Total 9.9 mg/dL Normal 8.5-10.1 [facility] Comment on above: Order Comment: 1 Performed By: #### L 500.4050, L504.2610 ####[facility] [address] [place], [address] Chloride [Moles/Vol] 102 mmol/L Normal 98-107 [facility] Comment on above: Order Comment: 1 Performed By: #### L 500.4050, L504.2610 ####[facility] [address] [place], [address] CO2 [Moles/Vol] 29.0 mmol/L Normal 21.0-32.0 [facility] Comment on above: Order Comment: 1 Performed By: #### L 500.4050, L504.2610 ####[facility] [address] [place], [address] Creatinine [Mass/Vol] 1.35 mg/dL High 0.55-1.02 [facility] Comment on above: Order Comment: 1 Result Comment: The validity of the calculated GFR GFRAA in patients over70 years has not been determined. Clinical correlation isessential. Performed By: #### L 500.4050, L504.2610 ####[facility] [address] [place], [address] ECRCL 46.13 ml/min Normal [facility] Comment on above: Order Comment: 1 Performed By: #### L 500.4050, L504.2610 ####[facility] [address] [place], [address] EST GFR - AA 50 mL/min Low >60 [facility] Comment on above: Order Comment: 1 Result Comment: Afri can Bahraini GFR Calc Performed By: #### L 500.4050, L504.2610 ####[facility] [address] [place], [address] GAP 8 Normal 5-15 [facility] Comment on above: Order Comment: 1 Performed By: #### L 500.4050, L504.2610 ####[facility] [address] [place], [address] GFR/1.73 sq M.predicted among non-blacks MDRD (S/P/Bld) [Vol rate/Area] 41 mL/min/{1.73_m2} Low >60 [facility] Comment on above: Order Comment: 1 Result Comment: Non- GFR Calc Performed By: #### L 500.4050, L504.2610 ####[facility] [address] [place], [address] Globulin (S) [Mass/Vol] 3.6 g/dL Normal 2.2-4.2 [facility] Comment on above: Order Comment: 1 Performed By: #### L 500.4050, L504.2610 ####[facility] [address] [place], [address] Glucose [Mass/Vol] 197 mg/dL High 74-106 [facility] Comment on above: Order Comment: 1 Result Comment: Fast ing Glucose result greater than or equal to 126 mg/dLsuggests DIABETES MELLITUS per A.D.A. criteria. Performed By: #### L 500.4050, L504.2610 ####[facility] [address] [place], [address] Potassium [Moles/Vol] 4.3 mmol/L Normal 3.5-5.1 [facility] Comment on above: Order Comment: 1 Performed By: #### L 500.4050, L504.2610 ####[facility] [address] [place], [address] Sodium [Moles/Vol] 139 mmol/L Normal 136-145 [facility] Comment on above: Order Comment: 1 Performed By: #### L 500.4050, L504.2610 ####[facility] [address] [place], [address] T PROT 7.0 g/dL Normal 6.4-8.2 [facility] Comment on above: Order Comment: 1 Performed By: #### L 500.4050, L504.2610 ####[facility] [address] [place], [address] Urea nitrogen [Mass/Vol] 20 mg/dL High 7-18 [facility] Comment on above: Order Comment: 1 Performed By: #### L 500.4050, L504.2610 ####[facility] [address] [place], [address] LDHon 08-23-2024 LDH 185 U/L Normal 84-246 [facility] Comment on above: Order Comment: 1 Performed By: #### L 500.4050, L504.2610 ####[facility] [address] [place], [address] Oncology Visit Reporton 08-12 Oncology Visit Report Normal [facility] CA 15-3on 07-28-2024 CA 15-3 30.4 U/mL Abnormal 0.0-25.0 [facility] Comment on above: Result Comment: [employer] Electrochemiluminescence Immunoassay(ECLIA)Values obtained with different assay methods or kits cannotbe used interchangeably. Results cannot be interpreted asabsolute evidence of the presence or absence of malignantdisease.Performed at: [facility] [address] [id number] Director: Reese Willingham PhD, Phone: [phone] Performed By: #### L 100.0100, L3100.5040, L3100.5030, L500.4050, L3100.2300 ####[facility] [address] [place], [address] CA 27.29on 07-28-2024 CA 27.29 28.1 U/mL Normal 0.0-38.6 [facility] Comment on above: Result Comment: [facility] Immunochemiluminometric Methodology (ICMA)Values obtained with different assay methods or kits cannotbe used interchangeably. Results cannot be interpreted asabsolute evidence of the presence or absence of malignantdisease. Performed By: #### L 100.0100, L3100.5040, L3100.5030, L500.4050, L3100.2300 ####[facility] [address] [place], [address] Carcinoembryonic Antigenon 09-27-2023 CEA 9.3 ng/mL High 0.0-4.7 [facility] Comment on above: Result Comment: Nons mokers <3.9 Smokers <5.6[facility] [employer] Electrochemiluminescence Immunoassay(ECLIA)Values obtained with different assay methods or kitscannot be used interchangeably. Results cannot beinterpreted as absolute evidence of the presence orabsence of malignant disease. Performed By: #### L 100.0100, L3100.5040, L3100.5030, L500.4050, L3100.2300 ####[facility] [address] [place], [address] CBC W/Diff, Automatedon 07-13 Absolute Lymph 1.01 X10 3/uL Normal 0.83-4.51 [facility] Comment on above: Performed By: #### L 100.0100, L3100.5040, L3100.5030, L500.4050, L3100.2300 ####[facility] [address] [place], [address] Absolute Neut 1.7 X10 3/uL Low 2.0-7.7 [facility] Comment on above: Performed By: #### L 100.0100, L3100.5040, L3100.5030, L500.4050, L3100.2300 ####[facility] [address] [place], [address] Basophils/100 WBC (Bld) 1.2 % High 0-1 [facility] Comment on above: Performed By: #### L 100.0100, L3100.5040, L3100.5030, L500.4050, L3100.2300 ####[facility] [address] [place], [address] Eosinophils/100 WBC (Bld) 4.9 % Normal 0-5 [facility] Comment on above: Performed By: #### L 100.0100, L3100.5040, L3100.5030, L500.4050, L3100.2300 ####[facility] [address] [place], [address] Erythrocyte distribution width (RBC) [Ratio] 14.0 % Normal 11.6-14.6 [facility] Comment on above: Performed By: #### L 100.0100, L3100.5040, L3100.5030, L500.4050, L3100.2300 ####[facility] [address] [place], [address] Hematocrit (Bld) [Volume fraction] 36.4 % Low 37-47 [facility] Comment on above: Performed By: #### L 100.0100, L3100.5040, L3100.5030, L500.4050, L3100.2300 ####[facility] [address] [place], [address] Hemoglobin (Bld) [Mass/Vol] 12.8 g/dL Normal 12.0-15.0 [facility] Comment on above: Performed By: #### L 100.0100, L3100.5040, L3100.5030, L500.4050, L3100.2300 ####[facility] [address] [place], [address] IG% 0.300 Normal 0.0-0.9 [facility] Comment on above: Result Comment: IG% - Immature Granulocytes (promyelocytes, myelocytes andmetamyelocytes) > 1% indicates that a LEFT SHIFT is Present. Performed By: #### L 100.0100, L3100.5040, L3100.5030, L500.4050, L3100.2300 ####[facility] [address] [place], [address] Lymphocytes/100 WBC (Bld) 31.1 % Normal 19-41 [facility] Comment on above: Performed By: #### L 100.0100, L3100.5040, L3100.5030, L500.4050, L3100.2300 ####[facility] [address] [place], [address] MCH (RBC) [Entitic mass] 36.4 pg High 27.0-32.0 [facility] Comment on above: Performed By: #### L 100.0100, L3100.5040, L3100.5030, L500.4050, L3100.2300 ####[facility] [address] [place], [address] MCHC (RBC) [Mass/Vol] 35.2 g/dL Normal 32-36 [facility] Comment on above: Performed By: #### L 100.0100, L3100.5040, L3100.5030, L500.4050, L3100.2300 ####[facility] [address] [place], [address] MCV (RBC) [Entitic vol] 103.4 fL High 81-99 [facility] Comment on above: Performed By: #### L 100.0100, L3100.5040, L3100.5030, L500.4050, L3100.2300 ####[facility] [address] [place], [address] Monocytes/100 WBC (Bld) 11.4 % High 0-10 [facility] Comment on above: Performed By: #### L 100.0100, L3100.5040, L3100.5030, L500.4050, L3100.2300 ####[facility] [address] [place], [address] Neutrophils/100 WBC (Bld) 51.1 % Normal 47-70 [facility] Comment on above: Performed By: #### L 100.0100, L3100.5040, L3100.5030, L500.4050, L3100.2300 ####[facility] [address] [place], [address] Nucleated RBC (Bld) [#/Vol] 0 10*3/uL Normal 0-5 [facility] Comment on above: Performed By: #### L 100.0100, L3100.5040, L3100.5030, L500.4050, L3100.2300 ####[facility] [address] [place], [address] Platelet mean volume (Bld) [Entitic vol] 9.7 fL Normal 6.2-12.0 [facility] Comment on above: Performed By: #### L 100.0100, L3100.5040, L3100.5030, L500.4050, L3100.2300 ####[facility] [address] [place], [address] Platelets (Bld) [#/Vol] 142 10*3/uL Low 150-450 [facility] Comment on above: Performed By: #### L 100.0100, L3100.5040, L3100.5030, L500.4050, L3100.2300 ####[facility] [address] [place], [address] RBC (Bld) [#/Vol] 3.52 10*6/uL Low 4.2-5.4 [facility] Comment on above: Performed By: #### L 100.0100, L3100.5040, L3100.5030, L500.4050, L3100.2300 ####[facility] [address] [place], [address] RDW SD 52.9 fl High 35.1-43.9 [facility] Comment on above: Performed By: #### L 100.0100, L3100.5040, L3100.5030, L500.4050, L3100.2300 ####[facility] [address] [place], [address] WBC (Bld) [#/Vol] 3.3 10*3/uL Low 4.4-11.0 [facility] Comment on above: Performed By: #### L 100.0100, L3100.5040, L3100.5030, L500.4050, L3100.2300 ####[facility] [address] [place], [address] Comprehensive Metabolic Prof [facility] 07-26-2024 Albumin [Mass/Vol] 3.3 g/dL Normal 3.2-5.0 [facility] Comment on above: Performed By: #### L 100.0100, L3100.5040, L3100.5030, L500.4050, L3100.2300 ####[facility] [address] [place], [address] Albumin/Globulin [Mass ratio] 1.0 {ratio} Normal 0.9-2.4 [facility] Comment on above: Performed By: #### L 100.0100, L3100.5040, L3100.5030, L500.4050, L3100.2300 ####[facility] [address] [place], [address] ALK P 138 U/L High 45-117 [facility] Comment on above: Performed By: #### L 100.0100, L3100.5040, L3100.5030, L500.4050, L3100.2300 ####[facility] [address] [place], [address] ALT [Catalytic activity/Vol] 58 U/L High 13-56 [facility] Comment on above: Performed By: #### L 100.0100, L3100.5040, L3100.5030, L500.4050, L3100.2300 ####[facility] [address] [place], [address] AST [Catalytic activity/Vol] 78 U/L High 15-37 [facility] Comment on above: Performed By: #### L 100.0100, L3100.5040, L3100.5030, L500.4050, L3100.2300 ####[facility] [address] [place], [address] Bilirubin [Mass/Vol] 0.50 mg/dL Normal 0.20-1.00 [facility] Comment on above: Result Comment: For patients on eltrombopag therapy, use of Dimension [place] TBIL is not recommended. Performed By: #### L 100.0100, L3100.5040, L3100.5030, L500.4050, L3100.2300 ####[facility] [address] [place], [address] BUN/CRE 19.8 RATIO Normal 10-20 [facility] Comment on above: Performed By: #### L 100.0100, L3100.5040, L3100.5030, L500.4050, L3100.2300 ####[facility] [address] [place], [address] CA,Total 9.3 mg/dL Normal 8.5-10.1 [facility] Comment on above: Performed By: #### L 100.0100, L3100.5040, L3100.5030, L500.4050, L3100.2300 ####[facility] [address] [place], [address] Chloride [Moles/Vol] 104 mmol/L Normal 98-107 [facility] Comment on above: Performed By: #### L 100.0100, L3100.5040, L3100.5030, L500.4050, L3100.2300 ####[facility] [address] [place], [address] CO2 [Moles/Vol] 28.0 mmol/L Normal 21.0-32.0 [facility] Comment on above: Performed By: #### L 100.0100, L3100.5040, L3100.5030, L500.4050, L3100.2300 ####[facility] [address] [place], [address] Creatinine [Mass/Vol] 1.11 mg/dL High 0.55-1.02 [facility] Comment on above: Result Comment: The validity of the calculated GFR GFRAA in patients over70 years has not been determined. Clinical correlation isessential. Performed By: #### L 100.0100, L3100.5040, L3100.5030, L500.4050, L3100.2300 ####[facility] [address] [place], [address] ECRCL 55.94 ml/min Normal [facility] Comment on above: Performed By: #### L 100.0100, L3100.5040, L3100.5030, L500.4050, L3100.2300 ####[facility] [address] [place], [address] EST GFR - AA 62 mL/min Normal >60 [facility] Comment on above: Result Comment: Afri can Bahraini GFR Calc Performed By: #### L 100.0100, L3100.5040, L3100.5030, L500.4050, L3100.2300 ####[facility] [address] [place], [address] GAP 6 Normal 5-15 [facility] Comment on above: Performed By: #### L 100.0100, L3100.5040, L3100.5030, L500.4050, L3100.2300 ####[facility] [address] [place], [address] GFR/1.73 sq M.predicted among non-blacks MDRD (S/P/Bld) [Vol rate/Area] 51 mL/min/{1.73_m2} Low >60 [facility] Comment on above: Result Comment: Non- GFR Calc Performed By: #### L 100.0100, L3100.5040, L3100.5030, L500.4050, L3100.2300 ####[facility] [address] [place], [address] Globulin (S) [Mass/Vol] 3.4 g/dL Normal 2.2-4.2 [facility] Comment on above: Performed By: #### L 100.0100, L3100.5040, L3100.5030, L500.4050, L3100.2300 ####[facility] [address] [place], [address] Glucose [Mass/Vol] 235 mg/dL High 74-106 [facility] Comment on above: Result Comment: Gluc ose result greater than or equal to 200 mg/dLsuggests DIABETES MELLITUS per A.D.A. criteria. Performed By: #### L 100.0100, L3100.5040, L3100.5030, L500.4050, L3100.2300 ####[facility] [address] [place], [address] Potassium [Moles/Vol] 3.7 mmol/L Normal 3.5-5.1 [facility] Comment on above: Performed By: #### L 100.0100, L3100.5040, L3100.5030, L500.4050, L3100.2300 ####[facility] [address] [place], [address] Sodium [Moles/Vol] 138 mmol/L Normal 136-145 [facility] Comment on above: Performed By: #### L 100.0100, L3100.5040, L3100.5030, L500.4050, L3100.2300 ####[facility] [address] [place], [address] T PROT 6.7 g/dL Normal 6.4-8.2 [facility] Comment on above: Performed By: #### L 100.0100, L3100.5040, L3100.5030, L500.4050, L3100.2300 ####[facility] [address] [place], [address] Urea nitrogen [Mass/Vol] 22 mg/dL High 7-18 [facility] Comment on above: Performed By: #### L 100.0100, L3100.5040, L3100.5030, L500.4050, L3100.2300 ####[facility] [address] [place], [address] Oncology Visit Reporton 07-13 Oncology Visit Report Normal [facility] CBC W/Diff, Automatedon 06-12 Absolute Lymph 1.28 X10 3/uL Normal 0.83-4.51 [facility] Comment on above: Performed By: #### L 100.0100 ####[facility] [address] [place], [address] Absolute Neut 1.4 X10 3/uL Low 2.0-7.7 [facility] Comment on above: Performed By: #### L 100.0100 ####[facility] [address] [place], [address] Basophils/100 WBC (Bld) 2.4 % High 0-1 [facility] Comment on above: Performed By: #### L 100.0100 ####[facility] [address] [place], [address] Eosinophils/100 WBC (Bld) 2.6 % Normal 0-5 [facility] Comment on above: Performed By: #### L 100.0100 ####[facility] [address] [place], [address] Erythrocyte distribution width (RBC) [Ratio] 14.0 % Normal 11.6-14.6 [facility] Comment on above: Performed By: #### L 100.0100 ####[facility] [address] [place], [address] Hematocrit (Bld) [Volume fraction] 37.3 % Normal 37-47 [facility] Comment on above: Performed By: #### L 100.0100 ####[facility] [address] [place], [address] Hemoglobin (Bld) [Mass/Vol] 13.0 g/dL Normal 12.0-15.0 [facility] Comment on above: Performed By: #### L 100.0100 ####[facility] [address] [place], [address] IG% 0.600 Normal 0.0-0.9 [facility] Comment on above: Result Comment: IG% - Immature Granulocytes (promyelocytes, myelocytes andmetamyelocytes) > 1% indicates that a LEFT SHIFT is Present. Performed By: #### L 100.0100 ####[facility] [address] [place], [address] Lymphocytes/100 WBC (Bld) 37.6 % Normal 19-41 [facility] Comment on above: Performed By: #### L 100.0100 ####[facility] [address] [place], [address] MCH (RBC) [Entitic mass] 36.0 pg High 27.0-32.0 [facility] Comment on above: Performed By: #### L 100.0100 ####[facility] [address] [place], [address] MCHC (RBC) [Mass/Vol] 34.9 g/dL Normal 32-36 [facility] Comment on above: Performed By: #### L 100.0100 ####[facility] [address] [place], [address] MCV (RBC) [Entitic vol] 103.3 fL High 81-99 [facility] Comment on above: Performed By: #### L 100.0100 ####[facility] [address] [place], [address] Monocytes/100 WBC (Bld) 15.6 % High 0-10 [facility] Comment on above: Performed By: #### L 100.0100 ####[facility] [address] [place], [address] Neutrophils/100 WBC (Bld) 41.2 % Low 47-70 [facility] Comment on above: Performed By: #### L 100.0100 ####[facility] [address] [place], [address] Nucleated RBC (Bld) [#/Vol] 0.9 10*3/uL Normal 0-5 [facility] Comment on above: Performed By: #### L 100.0100 ####[facility] [address] [place], [address] Platelet mean volume (Bld) [Entitic vol] 10.3 fL Normal 6.2-12.0 [facility] Comment on above: Performed By: #### L 100.0100 ####[facility] [address] [place], [address] Platelets (Bld) [#/Vol] 180 10*3/uL Normal 150-450 [facility] Comment on above: Performed By: #### L 100.0100 ####[facility] [address] [place], [address] RBC (Bld) [#/Vol] 3.61 10*6/uL Low 4.2-5.4 [facility] Comment on above: Performed By: #### L 100.0100 ####[facility] [address] [place], [address] RDW SD 53.5 fl High 35.1-43.9 [facility] Comment on above: Performed By: #### L 100.0100 ####[facility] [address] [place], [address] WBC (Bld) [#/Vol] 3.4 10*3/uL Low 4.4-11.0 [facility] Comment on above: Performed By: #### L 100.0100 ####[facility] [address] [place], [address] Oncology Visit Reporton 06-12 Oncology Visit Report Normal [facility] CA 15-3on 06-23-2024 CA 15-3 35.3 U/mL Abnormal 0.0-25.0 [facility] Comment on above: Order Comment: PLEANMOL E ADD ON TO EXTRA SST TUBE, BW FROM 06 21 24 Result Comment: [employer] Electrochemiluminescence Immunoassay(ECLIA)Values obtained with different assay methods or kits cannotbe used interchangeably. Results cannot be interpreted asabsolute evidence of the presence or absence of malignantdisease.Performed at: [address] [id number] Director: Reese Willingham PhD, Phone: [phone] Performed By: #### L 3100.5040, L3100.2300, L3100.5030 ####[facility] [address] [place], [address] CA 27.29on 06-23-2024 CA 27.29 30.9 U/mL Normal 0.0-38.6 [facility] Comment on above: Order Comment: PLEAS E ADD ON TO EXTRA SST TUBE, BW FROM 06 21 24 Result Comment: [employer] Immunochemiluminometric Methodology (ICMA)Values obtained with different assay methods or kits cannotbe used interchangeably. Results cannot be interpreted asabsolute evidence of the presence or absence of malignantdisease. Performed By: #### L 3100.5040, L3100.2300, L3100.5030 ####[facility] [address] [place], [address] Carcinoembryonic Antigenon CEA 8.8 ng/mL High 0.0-4.7 [facility] Comment on above: Order Comment: PLEAS E ADD ON TO EXTRA SST TUBE, BW FROM 06 21 24 Result Comment: Nons mokers <3.9 Smokers <5.6[employer] Electrochemiluminescence Immunoassay(ECLIA)Values obtained with different assay methods or kitscannot be used interchangeably. Results cannot beinterpreted as absolute evidence of the presence orabsence of malignant disease. Performed By: #### L 3100.5040, L3100.2300, L3100.5030 ####[facility] [address] [place], [address] CBC W/Diff, Automatedon 06-12 Absolute Lymph 0.74 X10 3/uL Low 0.83-4.51 [facility] Comment on above: Performed By: #### L 504.2610, L100.0100, L500.4050 ####[facility] [address] [place], [address] Absolute Neut 0.9 X10 3/uL Low 2.0-7.7 [facility] Comment on above: Performed By: #### L 504.2610, L100.0100, L500.4050 ####[facility] [address] [place], [address] Basophils/100 WBC (Bld) 1.5 % High 0-1 [facility] Comment on above: Performed By: #### L 504.2610, L100.0100, L500.4050 ####[facility] [address] [place], [address] Eosinophils/100 WBC (Bld) 2.5 % Normal 0-5 [facility] Comment on above: Performed By: #### L 504.2610, L100.0100, L500.4050 ####[facility] [address] [place], [address] Erythrocyte distribution width (RBC) [Ratio] 14.9 % High 11.6-14.6 [facility] Comment on above: Performed By: #### L 504.2610, L100.0100, L500.4050 ####[facility] [id number] [place], [address] Hematocrit (Bld) [Volume fraction] 37.5 % Normal 37-47 [facility] Comment on above: Performed By: #### L 504.2610, L100.0100, L500.4050 ####[facility] [id number] [place], [address] Hemoglobin (Bld) [Mass/Vol] 13.0 g/dL Normal 12.0-15.0 [facility] Comment on above: Performed By: #### L 504.2610, L100.0100, L500.4050 ####[facility] [id number] [place], [address] IG% 0.500 Normal 0.0-0.9 [facility] Comment on above: Result Comment: IG% - Immature Granulocytes (promyelocytes, myelocytes andmetamyelocytes) > 1% indicates that a LEFT SHIFT is Present. Performed By: #### L 504.2610, L100.0100, L500.4050 ####[facility] [id number] [place], [address] Lymphocytes/100 WBC (Bld) 37.0 % Normal 19-41 [facility] [facility] Comment on above: Performed By: #### L 504.2610, L100.0100, L500.4050 ####[facility] [address] [place], [address] MCH (RBC) [Entitic mass] 36.4 pg High 27.0-32.0 [facility] Comment on above: Performed By: #### L 504.2610, L100.0100, L500.4050 ####[facility] [address] [place], [address] MCHC (RBC) [Mass/Vol] 34.7 g/dL Normal 32-36 [facility] Comment on above: Performed By: #### L 504.2610, L100.0100, L500.4050 ####[facility] [address] [place], [address] MCV (RBC) [Entitic vol] 105.0 fL High 81-99 [facility] Comment on above: Performed By: #### L 504.2610, L100.0100, L500.4050 ####[facility] [address] [place], [address] Monocytes/100 WBC (Bld) 16.0 % High 0-10 [facility] Comment on above: Performed By: #### L 504.2610, L100.0100, L500.4050 ####[facility] [address] [place], [address] Neutrophils/100 WBC (Bld) 42.5 % Low 47-70 [facility] Comment on above: Performed By: #### L 504.2610, L100.0100, L500.4050 ####[facility] [address] [place], [address] Nucleated RBC (Bld) [#/Vol] 0 10*3/uL Normal 0-5 [facility] Comment on above: Performed By: #### L 504.2610, L100.0100, L500.4050 ####[facility] [address] [place], [address] Platelet mean volume (Bld) [Entitic vol] 9.8 fL Normal 6.2-12.0 [facility] Comment on above: Performed By: #### L 504.2610, L100.0100, L500.4050 ####[facility] [address] [place], [address] Platelets (Bld) [#/Vol] 150 10*3/uL Normal 150-450 [facility] Comment on above: Performed By: #### L 504.2610, L100.0100, L500.4050 ####[facility] [address] [place], [address] RBC (Bld) [#/Vol] 3.57 10*6/uL Low 4.2-5.4 [facility] Comment on above: Performed By: #### L 504.2610, L100.0100, L500.4050 ####[facility] [address] [place], [address] RDW SD 57.4 fl High 35.1-43.9 [facility] Comment on above: Performed By: #### L 504.2610, L100.0100, L500.4050 ####[facility] [address] [place], [address] WBC (Bld) [#/Vol] 2.0 10*3/uL Low 4.4-11.0 [facility] Comment on above: Performed By: #### L 504.2610, L100.0100, L500.4050 ####[facility] [address] [place], [address] Comprehensive Metabolic Prof ilon 06-21-2024 Albumin [Mass/Vol] 3.5 g/dL Normal 3.2-5.0 [facility] Comment on above: Order Comment: 1 Performed By: #### L 504.2610, L100.0100, L500.4050 ####[facility] [address] [place], [address] Albumin/Globulin [Mass ratio] 1.0 {ratio} Normal 0.9-2.4 [facility] Comment on above: Order Comment: 1 Performed By: #### L 504.2610, L100.0100, L500.4050 ####[facility] [address] [place], [address] ALK P 149 U/L High 45-117 [facility] Comment on above: Order Comment: 1 Performed By: #### L 504.2610, L100.0100, L500.4050 ####[facility] [address] [place], [address] ALT [Catalytic activity/Vol] 64 U/L High 13-56 [facility] Comment on above: Order Comment: 1 Performed By: #### L 504.2610, L100.0100, L500.4050 ####[facility] [address] [place], [address] AST [Catalytic activity/Vol] 106 U/L High 15-37 [facility] Comment on above: Order Comment: 1 Performed By: #### L 504.2610, L100.0100, L500.4050 ####[facility] [address] [place], [address] Bilirubin [Mass/Vol] 0.70 mg/dL Normal 0.20-1.00 [facility] Comment on above: Order Comment: 1 Result Comment: For patients on eltrombopag therapy, use of Dimension [place] TBIL is not recommended. Performed By: #### L 504.2610, L100.0100, L500.4050 ####[facility] [address] [place], [address] BUN/CRE 15.9 RATIO Normal 10-20 [facility] Comment on above: Order Comment: 1 Performed By: #### L 504.2610, L100.0100, L500.4050 ####[facility] [address] [place], [address] CA,Total 9.8 mg/dL Normal 8.5-10.1 [facility] Comment on above: Order Comment: 1 Performed By: #### L 504.2610, L100.0100, L500.4050 ####[facility] [address] [place], [address] Chloride [Moles/Vol] 102 mmol/L Normal 98-107 [facility] Comment on above: Order Comment: 1 Performed By: #### L 504.2610, L100.0100, L500.4050 ####[facility] [address] [place], [address] CO2 [Moles/Vol] 28.0 mmol/L Normal 21.0-32.0 [facility] Comment on above: Order Comment: 1 Performed By: #### L 504.2610, L100.0100, L500.4050 ####[facility] [address] [place], [address] Creatinine [Mass/Vol] 1.32 mg/dL High 0.55-1.02 [facility] Comment on above: Order Comment: 1 Result Comment: The validity of the calculated GFR GFRAA in patients over70 years has not been determined. Clinical correlation isessential. Performed By: #### L 504.2610, L100.0100, L500.4050 ####[facility] [address] [place], [address] ECRCL 46.72 ml/min Normal [facility] Comment on above: Order Comment: 1 Performed By: #### L 504.2610, L100.0100, L500.4050 ####[facility] [address] [place], [address] EST GFR - AA 51 mL/min Low >60 [facility] Comment on above: Order Comment: 1 Result Comment: Afri can [place]raini GFR Calc Performed By: #### L 504.2610, L100.0100, L500.4050 ####[facility] [address] [place], [address] GAP 9 Normal 5-15 [facility] Comment on above: Order Comment: 1 Performed By: #### L 504.2610, L100.0100, L500.4050 ####[facility] [address] [place], [address] GFR/1.73 sq M.predicted among non-blacks MDRD (S/P/Bld) [Vol rate/Area] 42 mL/min/{1.73_m2} Low >60 [facility] Comment on above: Order Comment: 1 Result Comment: Non- GFR Calc Performed By: #### L 504.2610, L100.0100, L500.4050 ####[facility] [address] [place], [address] Globulin (S) [Mass/Vol] 3.6 g/dL Normal 2.2-4.2 [facility] Comment on above: Order Comment: 1 Performed By: #### L 504.2610, L100.0100, L500.4050 ####[facility] [address] [place], [address] Glucose [Mass/Vol] 268 mg/dL High 74-106 [facility] Comment on above: Order Comment: 1 Result Comment: Gluc ose result greater than or equal to 200 mg/dLsuggests DIABETES MELLITUS per A.D.A. criteria. Performed By: #### L 504.2610, L100.0100, L500.4050 ####[facility] [address] [place], [address] Potassium [Moles/Vol] 4.1 mmol/L Normal 3.5-5.1 [facility] Comment on above: Order Comment: 1 Performed By: #### L 504.2610, L100.0100, L500.4050 ####[facility] [address] [place], [address] Sodium [Moles/Vol] 139 mmol/L Normal 136-145 [facility] Comment on above: Order Comment: 1 Performed By: #### L 504.2610, L100.0100, L500.4050 ####[facility] [address] [place], [address] T PROT 7.1 g/dL Normal 6.4-8.2 [facility] Comment on above: Order Comment: 1 Performed By: #### L 504.2610, L100.0100, L500.4050 ####[facility] [address] [place], [address] Urea nitrogen [Mass/Vol] 21 mg/dL High 7-18 [facility] Comment on above: Order Comment: 1 Performed By: #### L 504.2610, L100.0100, L500.4050 ####[facility] [address] [place], [address] LDHon 06-21-2024 LDH 223 U/L Normal 84-246 [facility] Comment on above: Order Comment: 1 Performed By: #### L 504.2610, L100.0100, L500.4050 ####[facility] [address] [place], [address] Oncology Visit Reporton 10 Oncology Visit Report Normal [facility] Cancer antigen 125 (CA-125) measurementOrdered By: Myron Calvillo on 02-28-2024 CA 125 Antigen 27.2 U/mL 0.0-38.1 [facility] Comment on above: [employer] El ectrochemiluminescence Immunoassay(ECLIA)Values obtained with different assay methods or kits cannotbe used interchangeably. Results cannot be interpreted asabsolute evidence of the presence or absence of malignantdisease. Cancer antigen 125 (CA-125) measurement 27.2 U/mL 0.0-38.1 [facility] Comment on above: [employer] El ectrochemiluminescence Immunoassay(ECLIA)Values obtained with different assay methods or kits cannotbe used interchangeably. Results cannot be interpreted asabsolute evidence of the presence or absence of malignantdisease. Reactive lymphocyte countOrd ered By: Sultana Finn on 01-03-2024 Reactive Lymphocytes 1+ [facility] Basophil percentageOrdered B y: Adolfo Aguirre on 12-08-2023 Cholesterol [Mass/Vol] 138 mg/dL <200 [facility] Comment on above: <200 mg/dL Desirable 200-240 mg/dL Borderline >240 mg/dL High Risk Triglyceride [Mass/Vol] 156 mg/dL <199 [facility] Comment on above: The drugs N-Acetylcy steine and Metamizole may falsely depress this assay.Serum Triglycerides Reference Interval Normal <150 mg/dL Borderline high 150 - 199 mg/dL High 200 - 499 mg/dL Very High > or = 500 mg/dL Laboratory - Chemistry and C hemistry - challengeOrdered By: Adolfo Aguirre on 12-08-2023 Cholesterol in HDL [Mass/Vol] 51 mg/dL >40 [facility] Comment on above: The drugs N-Acetylcy steine and Metamizole may falsely depress this assay. Reference Range HDL <40 mg/dL Low HDL Cholesterol HDL >or= 60 mg/dL High HDL Cholesterol Cholesterol in LDL [Mass/Vol] 56 mg/dL 0-130 [facility] No Panel InformationOrdered By: Adolfo Aguirre on 12-08-2023 Vitamin D 25-Hydroxy 114.8 ng/mL [facility] Comment on above: Vitamin D 25(OH) Sta [...] test results. VLDL Cholesterol 31 mg/dL 5-40 [facility] Serum or plasma thyroid stim ulating hormone (TSH) measurement (units/volume)Ordered By: Adolfo Aguirre on 12-08-2023 TSH Qn 1.02 uIU/mL 0.358-3.74 [facility] Absolute lymphocyte countOrd ered By: Myron Calvillo on 11-29-2023 Lymphocytes Auto (Unsp spec) [#/Vol] 0.74 10*3/uL 0.83-4.51 [facility] Automated lymphocyte count a s percentage of total leukocytesOrdered By: Myron Calvillo on 11-29-2023 Lymphocytes/100 WBC Auto (Unsp spec) 28.5 % 19-41 [facility] Basophil percentageOrdered B y: Myron Calvillo on 11-29-2023 Basophil percentage 3.8 mg/dL 2.5-4.9 [facility] Basophils/100 WBC (Bld) 1.9 % 0-1 [facility] Bilirubin [Mass/Vol] 0.60 mg/dL 0.20-1.00 [facility] Comment on above: For patients on eltr ombopag therapy, use of Dimension [place] TBIL is not recommended. Chloride [Moles/Vol] 102 mmol/L 98-107 [facility] Eosinophils/100 WBC (Bld) 1.9 % 0-5 [facility] Glucose [Mass/Vol] 160 mg/dL 74-106 [facility] Comment on above: Fasting Glucose resu lt greater than or equal to 126 mg/dL suggests DIABETES MELLITUS per A.D.A. criteria. Hemoglobin (Bld) [Mass/Vol] 12.6 g/dL 12.0-15.0 [facility] LDH [Catalytic activity/Vol] 196 U/L 84-246 [facility] Monocytes/100 WBC (Bld) 16.9 % 0-10 [facility] Neutrophils (Bld) [#/Vol] 1.3 10*3/uL 2.0-7.7 [facility] Neutrophils/100 WBC (Bld) 50.4 % 47-70 [facility] Potassium [Moles/Vol] 3.9 mmol/L 3.5-5.1 [facility] Protein [Mass/Vol] 6.8 g/dL 6.4-8.2 [facility] Sodium [Moles/Vol] 138 mmol/L 136-145 [facility] WBC (Bld) [#/Vol] 2.6 10*3/uL 4.4-11.0 [facility] Determination of erythrocyte mean corpuscular volume (MCV)Ordered By: Myron Calvillo on 11-29-2023 MCV (RBC) [Entitic vol] 102.7 fL 81-99 [facility] Erythrocyte distribution wid th ratioOrdered By: Myron Calvillo on 11-29-2023 Erythrocyte distribution width (RBC) [Ratio] 14.0 % 11.6-14.6 [facility] Erythrocyte distribution wid th standard deviationOrdered By: Myron Calvillo on 11-29-2023 Erythrocyte distribution width (RBC) [Entitic vol] 52.4 fL 35.1-43.9 [facility] Hematocrit Auto (Bld) [Volum e fraction]Ordered By: Myron Calvillo on 11-29-2023 Hematocrit (Bld) [Volume fraction] 37.6 % 37-47 [facility] Immature granulocytes/100 WB C Auto (Bld)Ordered By: Myron Calvillo on 11-29-2023 Immature granulocytes/100 WBC (Bld) 0.400 % 0.0-0.9 [facility] Comment on above: IG% - Immature Granu locytes (promyelocytes, myelocytes and metamyelocytes) > 1% indicates that a LEFT SHIFT is Present. Laboratory - Chemistry and C hemistry - challengeOrdered By: Myron Calvillo on 11-29-2023 Albumin/Globulin [Mass ratio] 1.0 {ratio} 0.9-2.4 [facility] ALP [Catalytic activity/Vol] 108 U/L 45-117 [facility] ALT [Catalytic activity/Vol] 56 U/L 13-56 [facility] CO2 [Moles/Vol] 28.0 mmol/L 21.0-32.0 [facility] Globulin (S) [Mass/Vol] 3.4 g/dL 2.2-4.2 [facility] Urea nitrogen/Creatinine [Mass ratio] 13.9 mg/mg 10-20 [facility] Laboratory - Hematology and Cell countsOrdered By: Myron Calvillo on 11-29-2023 MCH (RBC) [Entitic mass] 34.4 pg 27.0-32.0 [facility] MCHC (RBC) [Mass/Vol] 33.5 g/dL 32-36 [facility] Nucleated RBC/100 WBC (Bld) [Ratio] 0 % 0-5 [facility] Platelet mean volume (Bld) [Entitic vol] 9.9 fL 6.2-12.0 [facility] Platelets (Bld) [#/Vol] 155 10*3/uL 150-450 [facility] Magnesium measurementOrdered By: Myron Calvillo on 11-29-2023 Magnesium [Mass/Vol] 1.5 mg/dL Low 1.6-2.6 [facility] No Panel InformationOrdered By: Myron Calvillo on 11-29-2023 Estimated Creatinine Clearance Calc 58.61 ml/min [facility] Estimated GFR (MDRD) Amer 64 mL/min >60 [facility] Comment on above: GFR Calc Estimated GFR (MDRD) Non-Af Amer 53 mL/min >60 [facility] Comment on above: Non- GFR Calc Phosphorus measurementOrdere d By: Myron Calvillo on 11-29-2023 Phosphorus Level 3.8 mg/dL 2.5-4.9 [facility] RBC Auto (Bld) [#/Vol]Ordere d By: Myron Calvillo on 11-29-2023 RBC (Bld) [#/Vol] 3.66 10*6/uL 4.2-5.4 [facility] Serum or plasma calcium amanda urement (mass/volume)Ordered By: Myron Calvillo on 11-29-2023 Calcium [Mass/Vol] 9.7 mg/dL 8.5-10.1 [facility] Serum or plasma creatinine m easurement (mass/volume)Ordered By: Myron Calvillo on 11-29-2023 Creatinine [Mass/Vol] 1.08 mg/dL 0.55-1.02 [facility] Comment on above: The validity of the calculated GFR & GFRAA in patients over 70 years has not been determined. Clinical correlation is essential. Serum or plasma urea nitroge n measurement (mass/volume)Ordered By: Myron Calvillo on 11-29-2023 Urea nitrogen [Mass/Vol] 15 mg/dL 7-18 [facility] Thin prep Papanicolaou smear with manual screeningOrdered By: Myron Calvillo on 11-29-2023 Thin prep Papanicolaou smear with manual screening 3.4 g/dL 3.2-5.0 [facility] Thin prep Papanicolaou smear with manual screening 76 U/L 15-37 [facility] Thin prep Papanicolaou smear with manual screening 8 5-15 [facility] Pathologist review Marcial (Unsp spec) [Interp]Ordered By: Myron Calvillo on 11-22-2023 Differential Pathologist's Review Reviewed [facility] Comment on above: Previous reported re sult: May foll Edited by: RGOOD on 11/25/23:1256Pancytopenia.Leukopenia and Neutropenia.Macrocytic anemia.Mild ThrombocytopeniaClinical correlation necessary.Iam Mcclure M.D. 11/25/23 AMENDED REPORT 11/25/23 [id number] PATH REV previously reported as: January zaheer Review by pathologistOrdered By: Myron Calvillo on 11-22-2023 Pathologist review Marcial (Unsp spec) [Interp] Reviewed [facility] Comment on above: Previous reported re sult: May foll Edited by: RGOOD on 11/25/23:1256Pancytopenia.Leukopenia and Neutropenia.Macrocytic anemia.Mild ThrombocytopeniaClinical correlation necessary.Iam Mcclure M.D. 11/25/23 AMENDED REPORT 11/25/23 1256 PATH REV previously reported as: Anastasia schwab Basophil percentageOrdered B y: Myron Calvillo on 10-25-2023 Basophil percentage 5-10 SEEN /hpf 0-5 [facility] Bilirubin Test strip Ql (U)O rdered By: Myron Calvillo on 10-25-2023 Bilirubin Ql (U) Negative Negative [facility] Culture, urineOrdered By: Destinee Calvillo on 10-25-2023 Bacteria identified Cx Nom (U) Klebsiella pneumoniae sp pneum Abnormal [facility] Epithelial cells.squamous LM Ql (Urine sed)Ordered By: Myron Calvillo on 10-25-2023 Epithelial cells.squamous LM.HPF (Urine sed) [#/Area] 0 /[HPF] 5-10 [facility] Glucose Ql (U)Ordered By: Destinee Calvillo on 10-25-2023 Glucose (U) [Mass/Vol] 1000 mg/dL High Normal [facility] Ketones Test strip Ql (U)Ord ered By: Myron Calvillo on 10-25-2023 Ketones Ql (U) Negative Negative [facility] Mucus LM Ql (Urine sed)Order ed By: Myron Calvillo on 10-25-2023 Mucus Ql (Urine sed) 0 SEEN /hpf [facility] Nitrite Test strip Ql (U)Ord ered By: Myron Calvillo on 10-25-2023 Nitrite Ql (U) Negative Negative [facility] No Panel InformationOrdered By: Myron Calvillo on 10-25-2023 Urine RBC 0 SEEN /hpf 0-5 [facility] Protein Test strip Ql (U)Ord ered By: Myron Calvillo on 10-25-2023 Protein Ql (U) Negative Negative [facility] RBC Ql (U)Ordered By: Myron Calvillo on 10-25-2023 Urine Occult Blood 10 /ul High Negative [facility] Squamous epithelial cells de tection in urine sediment by light microscopyOrdered By: Myron Calvillo on 10-25-2023 Epithelial cells.squamous LM Ql (Urine sed) 0-5 SEEN /hpf 5-10 [facility] Trichomonas screening testOr dered By: Myron Calvillo on 10-25-2023 Urine WBC 5-10 SEEN /hpf 0-5 [facility] Urine blood detectionOrdered By: Myron Calvillo on 10-25-2023 RBC Ql (U) 10 /ul High Negative [facility] Urine clarityOrdered By: Kavon Calvillo on 10-25-2023 Clarity (U) Clear Clear [facility] Urine color determinationOrd ered By: Myron Calvillo on 10-25-2023 Color (U) Yellow Yellow [facility] Urine glucose detectionOrder ed By: Myron Calvillo on 10-25-2023 Glucose Ql (U) 1000 mg/dl High Normal [facility] Urine leukocyte esterase det ection by dipstickOrdered By: Myorn Calvilol on 10-25-2023 Leukocyte esterase Test strip Ql (U) 100 /ul High Negative [facility] Urine pHOrdered By: Myron arias on 10-25-2023 pH (U) 6.0 [pH] 5.0 - 8.0 [facility] Urine sediment bacteria coun t by microscopy (number/high power field)Ordered By: Myron Calvillo on 10-25-2023 Bacteria LM.HPF (Urine sed) [#/Area] 2 /[HPF] None Seen [facility] Urine specific gravity measu rementOrdered By: Myron Calvillo on 10-25-2023 Specific gravity (U) [Rel density] 1.015 1.002-1.030 [facility] Urine urobilinogen measureme ntOrdered By: Myron Calvillo on 10-25-2023 Urobilinogen Ql (U) Normal mg/dl Normal [facility] Urobilinogen Ql (U)Ordered B y: Myron Calvillo on 10-25-2023 Urine Urobilinogen Normal mg/dl Normal [facility] No Panel InformationOrdered By: Myron Calvillo on 09-27-2023 CA 15-3 Antigen 27.8 U/mL 0.0-25.0 [facility] Comment on above: [employer] El ectrochemiluminescence Immunoassay(ECLIA)Values obtained with different assay methods or kits cannotbe used interchangeably. Results cannot be interpreted asabsolute evidence of the presence or absence of malignantdisease.Performed at: [facility], [place] [id number] Director: Reese Willingham PhD, Phone: [phone] CA 27.29 22.7 U/mL 0.0-38.6 [facility] Comment on above: [employer] 170 [employer]aur Immu nochemiluminometric Methodology (ICMA)Values obtained with different assay methods or kits cannotbe used interchangeably. Results cannot be interpreted asabsolute evidence of the presence or absence of malignantdisease. Absolute lymphocyte countOrd ered By: Sultana Finn on 07-05-2023 Lymphocytes Auto (Unsp spec) [#/Vol] 1.04 10*3/uL 0.83-4.51 [facility] Basophil percentageOrdered B y: Sultana Finn on 07-05-2023 Basophils/100 WBC (Bld) 1.9 % 0-1 [facility] Eosinophils/100 WBC (Bld) 4.1 % 0-5 [facility] Neutrophils (Bld) [#/Vol] 1.1 10*3/uL 2.0-7.7 [facility] Neutrophils/100 WBC (Bld) 40.4 % 47-70 [facility] WBC (Bld) [#/Vol] 2.7 10*3/uL 4.4-11.0 [facility] Blood erythrocytes count (nu mber/volume)Ordered By: Sultana Finn on 07-05-2023 RBC (Bld) [#/Vol] 3.48 10*6/uL 4.2-5.4 [facility] Blood hemoglobin measurement (mass/volume)Ordered By: Sultana Finn on 07-05-2023 Hemoglobin (Bld) [Mass/Vol] 11.8 g/dL 12.0-15.0 [facility] Blood lymphocytes/100 leukoc ytesOrdered By: Sultana Finn on 07-05-2023 Lymphocytes/100 WBC (Bld) 39.0 % 19-41 [facility] Blood monocytes/100 leukocyt esOrdered By: Sultana Finn on 07-05-2023 Monocytes/100 WBC (Bld) 13.9 % 0-10 [facility] Blood platelet mean volumeOr dered By: Sultana Finn on 07-05-2023 Platelet mean volume (Bld) [Entitic vol] 9.6 fL 6.2-12.0 [facility] Determination of erythrocyte mean corpuscular volume (MCV)Ordered By: Sultana Finn on 07-05-2023 MCV (RBC) [Entitic vol] 102.0 fL 81-99 [facility] Hematocrit Auto (Bld) [Volum e fraction]Ordered By: Sultana Finn on 07-05-2023 Hematocrit (Bld) [Volume fraction] 35.5 % 37-47 [facility] Laboratory - Hematology and Cell countsOrdered By: Sultana Finn on 07-05-2023 Erythrocyte distribution width (RBC) [Entitic vol] 53.2 fL 35.1-43.9 [facility] Erythrocyte distribution width (RBC) [Ratio] 14.3 % 11.6-14.6 [facility] Immature granulocytes/100 WBC (Bld) 0.700 % 0.0-0.9 [facility] Comment on above: IG% - Immature Granu locytes (promyelocytes, myelocytes and metamyelocytes) > 1% indicates that a LEFT SHIFT is Present. MCH (RBC) [Entitic mass] 33.9 pg 27.0-32.0 [facility] Nucleated RBC/100 WBC (Bld) [Ratio] 0.7 % 0-5 [facility] MCHC Auto (RBC) [Mass/Vol]Or dered By: Sultana Finn on 07-05-2023 MCHC (RBC) [Mass/Vol] 33.2 g/dL 32-36 [facility] Platelets bldOrdered By: Chaka Finn on 07-05-2023 Platelets (Bld) [#/Vol] 148 10*3/uL 150-450 [facility] Basophil percentageOrdered B y: Myron Calvillo on 06-28-2023 Bilirubin [Mass/Vol] 0.30 mg/dL 0.20-1.00 [facility] Comment on above: For patients on eltr ombopag therapy, use of Dimension [place] TBIL is not recommended. Chloride [Moles/Vol] 105 mmol/L 98-107 [facility] Glucose [Mass/Vol] 210 mg/dL 74-106 [facility] Comment on above: Glucose result great er than or equal to 200 mg/dLsuggests DIABETES MELLITUS per A.D.A. criteria. LDH [Catalytic activity/Vol] 156 U/L 84-246 [facility] Potassium [Moles/Vol] 4.1 mmol/L 3.5-5.1 [facility] Protein [Mass/Vol] 6.5 g/dL 6.4-8.2 [facility] Sodium [Moles/Vol] 139 mmol/L 136-145 [facility] Blood manual differential co mment interpretation (narrative result)Ordered By: Myron Calvillo on 06-28-2023 Manual differential comment Marcial (Bld) [Interp] SCANNED [facility] Laboratory - Chemistry and C hemistry - challengeOrdered By: Myron Calvillo on 06-28-2023 ALP [Catalytic activity/Vol] 104 U/L 45-117 [facility] ALT [Catalytic activity/Vol] 43 U/L 13-56 [facility] CO2 [Moles/Vol] 28.0 mmol/L 21.0-32.0 [facility] Globulin (S) [Mass/Vol] 3.2 g/dL 2.2-4.2 [facility] Urea nitrogen/Creatinine [Mass ratio] 15.7 mg/mg 10-20 [facility] No Panel InformationOrdered By: Myron Calvillo on 06-28-2023 Estimated Creatinine Clearance Calc 45.37 ml/min [facility] Estimated GFR (MDRD) Amer 64 mL/min >60 [facility] Comment on above: GFR Calc Estimated GFR (MDRD) Non-Af Amer 53 mL/min >60 [facility] Comment on above: Non- GFR Calc Serum or plasma albumin amanda urement (mass/volume)Ordered By: Myron Calvillo on 06-28-2023 Albumin [Mass/Vol] 3.3 g/dL 3.2-5.0 [facility] Serum or plasma albumin/glob ulin mass ratioOrdered By: Myron Calvillo on 06-28-2023 Albumin/Globulin [Mass ratio] 1.0 {ratio} 0.9-2.4 [facility] Serum or plasma calcium amanda urement (mass/volume)Ordered By: Myron Calvillo on 06-28-2023 Calcium [Mass/Vol] 8.9 mg/dL 8.5-10.1 [facility] Serum or plasma creatinine m easurement (mass/volume)Ordered By: Myron Calvillo on 06-28-2023 Creatinine [Mass/Vol] 1.08 mg/dL 0.55-1.02 [facility] Comment on above: The validity of the calculated GFR & GFRAA in patients over 70 years has not been determined. Clinical correlation is essential. Serum or plasma urea nitroge n measurement (mass/volume)Ordered By: Myron Calvillo on 06-28-2023 Urea nitrogen [Mass/Vol] 17 mg/dL 7-18 [facility] Thin prep Papanicolaou smear with manual screeningOrdered By: Myron Calvillo on 06-28-2023 Thin prep Papanicolaou smear with manual screening 41 U/L 15- [facility] Thin prep Papanicolaou smear with manual screening 6 5-15 [facility] Absolute lymphocyte countOrd ered By: Sultana Finn on 05-31-2023 Lymphocytes Auto (Unsp spec) [#/Vol] 0.74 10*3/uL 0.83-4.51 [facility] Basophil percentageOrdered B y: Sultana Finn on 05-31-2023 Basophils/100 WBC (Bld) 0.9 % 0-1 [facility] Bilirubin [Mass/Vol] 0.40 mg/dL 0.20-1.00 [facility] Comment on above: For patients on eltr ombopag therapy, use of Dimension [place] TBIL is not recommended. Chloride [Moles/Vol] 106 mmol/L 98-107 [facility] Eosinophils/100 WBC (Bld) 3.7 % 0-5 [facility] Glucose [Mass/Vol] 201 mg/dL 74-106 [facility] Comment on above: Glucose result great er than or equal to 200 mg/dLsuggests DIABETES MELLITUS per A.D.A. criteria. Neutrophils (Bld) [#/Vol] 1.1 10*3/uL 2.0-7.7 [facility] Neutrophils/100 WBC (Bld) 51.0 % 47-70 [facility] Potassium [Moles/Vol] 3.8 mmol/L 3.5-5.1 [facility] Protein [Mass/Vol] 6.5 g/dL 6.4-8.2 [facility] Sodium [Moles/Vol] 140 mmol/L 136-145 [facility] WBC (Bld) [#/Vol] 2.1 10*3/uL 4.4-11.0 [facility] Blood erythrocytes count (nu mber/volume)Ordered By: Sultana Finn on 05-31-2023 RBC (Bld) [#/Vol] 3.36 10*6/uL 4.2-5.4 [facility] Blood hemoglobin measurement (mass/volume)Ordered By: Sultana Finn on 05-31-2023 Hemoglobin (Bld) [Mass/Vol] 11.9 g/dL 12.0-15.0 [facility] Blood lymphocytes/100 leukoc ytesOrdered By: Sultana Aakash on 05-31-2023 Lymphocytes/100 WBC (Bld) 34.6 % 19-41 [facility] Blood monocytes/100 leukocyt esOrdered By: Sultana Finn on 05-31-2023 Monocytes/100 WBC (Bld) 9.8 % 0-10 [facility] Blood platelet mean volumeOr dered By: Sultana Finn on 05-31-2023 Platelet mean volume (Bld) [Entitic vol] 9.7 fL 6.2-12.0 [facility] Determination of erythrocyte mean corpuscular volume (MCV)Ordered By: Sultana Finn on 05-31-2023 MCV (RBC) [Entitic vol] 103.0 fL 81-99 [facility] Hematocrit Auto (Bld) [Volum e fraction]Ordered By: Sultana Aakash on 05-31-2023 Hematocrit (Bld) [Volume fraction] 34.6 % 37-47 [facility] Laboratory - Chemistry and C hemistry - challengeOrdered By: Sultana Finn on 05-31-2023 ALP [Catalytic activity/Vol] 87 U/L 45-117 [facility] ALT [Catalytic activity/Vol] 37 U/L 13-56 [facility] CO2 [Moles/Vol] 28.0 mmol/L 21.0-32.0 [facility] Globulin (S) [Mass/Vol] 3.2 g/dL 2.2-4.2 [facility] Urea nitrogen/Creatinine [Mass ratio] 10.0 mg/mg 10-20 [facility] Laboratory - Hematology and Cell countsOrdered By: Sultana Finn on 05-31-2023 Erythrocyte distribution width (RBC) [Entitic vol] 52.8 fL 35.1-43.9 [facility] Erythrocyte distribution width (RBC) [Ratio] 13.9 % 11.6-14.6 [facility] Immature granulocytes/100 WBC (Bld) 0.000 % 0.0-0.9 [facility] Comment on above: IG% - Immature Granu locytes (promyelocytes, myelocytes and metamyelocytes) > 1% indicates that a LEFT SHIFT is Present. MCH (RBC) [Entitic mass] 35.4 pg 27.0-32.0 [facility] Nucleated RBC/100 WBC (Bld) [Ratio] 0 % 0-5 [facility] MCHC Auto (RBC) [Mass/Vol]Or dered By: Sultana Finn on 05-31-2023 MCHC (RBC) [Mass/Vol] 34.4 g/dL 32-36 [facility] No Panel InformationOrdered By: Sultana Finn on 05-31-2023 CA 15-3 Antigen 26.7 U/mL 0.0-25.0 [facility] Comment on above: [employer] El ectrochemiluminescence Immunoassay(ECLIA)Values obtained with different assay methods or kits cannotbe used interchangeably. Results cannot be interpreted asabsolute evidence of the presence or absence of malignantdisease.Performed at: [employer] [place] [id number] Director: Reese Willingham PhD, Phone: [phone] [place] 27.29 19.5 U/mL 0.0-38.6 [facility] Comment on above: [employer]ens [employer] Immu nochemiluminometric Methodology (ICMA)Values obtained with different assay methods or kits cannotbe used interchangeably. Results cannot be interpreted asabsolute evidence of the presence or absence of malignantdisease. Estimated Creatinine Clearance Calc 37.70 ml/min [facility] Estimated GFR (MDRD) Amer 52 mL/min >60 [facility] Comment on above: GFR Calc Estimated GFR (MDRD) Non-Af Amer 43 mL/min >60 [facility] Comment on above: Non- GFR Calc Platelets bldOrdered By: Chaka Finn on 05-31-2023 Platelets (Bld) [#/Vol] 162 10*3/uL 150-450 [facility] Serum or plasma albumin amanda urement (mass/volume)Ordered By: Sultana Finn on 05-31-2023 Albumin [Mass/Vol] 3.3 g/dL 3.2-5.0 [facility] Serum or plasma albumin/glob ulin mass ratioOrdered By: Sultana Finn on 05-31-2023 Albumin/Globulin [Mass ratio] 1.0 {ratio} 0.9-2.4 [facility] Serum or plasma calcium amanda urement (mass/volume)Ordered By: Sultana Finn on 05-31-2023 Calcium [Mass/Vol] 8.6 mg/dL 8.5-10.1 [facility] Serum or plasma creatinine m easurement (mass/volume)Ordered By: Sultana Finn on 05-31-2023 Creatinine [Mass/Vol] 1.30 mg/dL 0.55-1.02 [facility] Comment on above: The validity of the calculated GFR & GFRAA in patients over 70 years has not been determined. Clinical correlation is essential. Serum or plasma urea nitroge n measurement (mass/volume)Ordered By: Sultana Finn on 05-31-2023 Urea nitrogen [Mass/Vol] 13 mg/dL 7-18 [facility] Thin prep Papanicolaou smear with manual screeningOrdered By: Sultana Finn on 05-31-2023 Thin prep Papanicolaou smear with manual screening 37 U/L 15-37 [facility] Thin prep Papanicolaou smear with manual screening 6 5-15 [facility] Basophil percentageOrdered B y: Myron Calvillo on 05-03-2023 LDH [Catalytic activity/Vol] 159 U/L 84-246 [facility] No Panel InformationOrdered By: Myron Calvillo on 05-03-2023 CA 125 Antigen 17.9 U/mL 0.0-38.1 [facility] Comment on above: [employer] El ectrochemiluminescence Immunoassay(ECLIA)Values obtained with different assay methods or kits cannotbe used interchangeably. Results cannot be interpreted asabsolute evidence of the presence or absence of malignantdisease. CA 15-3 Antigen 23.0 U/mL 0.0-25.0 [facility] Comment on above: [employer] El ectrochemiluminescence Immunoassay(ECLIA)Values obtained with different assay methods or kits cannotbe used interchangeably. Results cannot be interpreted asabsolute evidence of the presence or absence of malignantdisease.Performed at: [facility] [address] [id number] Director: Reese Willingham PhD, Phone: [phone] CA 27.29 20.6 U/mL 0.0-38.6 [facility] Comment on above: [employer] Immu nochemiluminometric Methodology (ICMA)Values obtained with different assay methods or kits cannotbe used interchangeably. Results cannot be interpreted asabsolute evidence of the presence or absence of malignantdisease. Serum or plasma carcinoembry onic antigen measurement (mass/volume)Ordered By: Myron Calvillo on 05-03-2023 Carcinoembryonic Ag [Mass/Vol] 4.1 ng/mL 0.0-4.7 [facility] Comment on above: Nonsmokers <3.9 Smok ers <5.6[employer] Electrochemiluminescence Immunoassay(ECLIA)Values obtained with different assay methods or kitscannot be used interchangeably. Results cannot beinterpreted as absolute evidence of the presence orabsence of malignant disease. Blood manual differential co mment interpretation (narrative result)Ordered By: Myron Calvillo on 03-08-2023 Manual differential comment Marcial (Bld) [Interp] SCANNED [facility] Review by pathologistOrdered By: Myron Calvillo on 03-08-2023 Pathologist review Marcial (Unsp spec) [Interp] Reviewed [facility] Comment on above: Previous reported re sult: January zaheer Edited by: RGOROBERT on 03/10/23:825Leukopenia, neutropenia and macrocytic anemia. Clinical correlation necessary.Iam Mcclure M.D. 03/10/23 AMENDED REPORT 03/10/23 0826 PATH REV previously reported as: January Lower GI hemoglobin IA Ql (S tl)Ordered By: Myron Calvillo on 01-12-2023 Stool Occult Blood (MARIAM) [facility] Stool gastrointestinal hemog lobin detection by immunologic methodOrdered By: Myron Calvillo on 01-12-2023 Lower GI hemoglobin IA Ql (Stl) [facility] Basophil percentageOrdered B y: Myron Calvillo on 01-11-2023 Basophil percentage 4.0 mg/dL 2.5-4.9 [facility] No Panel InformationOrdered By: Myron Calvillo on 01-11-2023 Vitamin D 25-Hydroxy 97.2 ng/mL [facility] Comment on above: Vitamin D 25(OH) Sta tus Range Deficiency <20 ng/mL (50nmol/L) Insufficiency 20 - 30 ng/mL (50 - 75 nmol/L) Sufficiency 30 - 100 ng/mL (75 - 250 nmol/L) Toxicity >100 ng/mL (>250 nmol/L) No Panel InformationOrdered By: Chelsea Anguiano on 01-11-2023 Thyroid Stimulating Hormone (TSH) 0.95 uIU/mL 0.358-3.74 [facility] Folate [Mass/Vol]Ordered By: Ngozi Padron on 01-04-2023 Folate 33.10 ng/mL 3.1-55.4 [facility] Iron (Unsp spec) [Mass/Mass] Ordered By: Ngozi Padron on 01-04-2023 Iron [Mass/Vol] 89 ug/dL 50-170 [facility] Iron measurement (mass/mass) Ordered By: Ngozi Padron on 01-04-2023 Iron (Unsp spec) [Mass/Mass] 89 ug/dL 50-170 [facility] Iron saturation [Mass fracti on]Ordered By: Ngozi Padron on 01-04-2023 Iron Saturation 27.9 % 15.0-55.0 [facility] Laboratory - Chemistry and C hemistry - challengeOrdered By: Ngozi Padron on 01-04-2023 Cobalamin (Vitamin B12) [Mass/Vol] 379 pg/mL 211-911 [facility] No Panel InformationOrdered By: Ngozi Padron on 01-04-2023 Total Iron Binding Capacity 319 ug/dL 250-450 [facility] Serum or plasma ferritin augie surement (mass/volume)Ordered By: Ngozi Padron on 01-04-2023 Ferritin [Mass/Vol] 138 ng/mL 8-252 [facility] Serum or plasma folate measu rement (mass/volume)Ordered By: Ngozi Padron on 01-04-2023 Folate [Mass/Vol] 33.10 ng/mL 3.1-55.4 [facility] Serum or plasma iron saturat ion measurement (mass fraction)Ordered By: Ngozi Padron on 01-04-2023 Iron saturation [Mass fraction] 27.9 % 15.0-55.0 [facility] No Panel InformationOrdered By: Myron Calvillo on 12-07-2022 Miscellaneous Test Comment MAILED SPECIMEN [facility] Absolute lymphocyte countOrd ered By: Dr. Calvillo on 11-30-2022 Lymphocytes Auto (Unsp spec) [#/Vol] 0.68 10*3/uL 0.83-4.51 [facility] Basophil percentageOrdered B y: Dr. Calvillo on 11-30-2022 Basophil percentage 4.8 mg/dL 2.5-4.9 [facility] Basophils/100 WBC (Bld) 2.1 % 0-1 [facility] Bilirubin [Mass/Vol] 0.40 mg/dL 0.20-1.00 [facility] Comment on above: For patients on eltr ombopag therapy, use of Dimension [place] TBIL is not recommended. Chloride [Moles/Vol] 103 mmol/L 98-107 [facility] Eosinophils/100 WBC (Bld) 3.1 % 0-5 [facility] Glucose [Mass/Vol] 258 mg/dL 74-106 [facility] Comment on above: Glucose result great er than or equal to 200 mg/dLsuggests DIABETES MELLITUS per A.D.A. criteria. LDH [Catalytic activity/Vol] 170 U/L 84-246 [facility] Neutrophils (Bld) [#/Vol] 0.9 10*3/uL 2.0-7.7 [facility] Neutrophils/100 WBC (Bld) 46.8 % 47-70 [facility] Potassium [Moles/Vol] 4.0 mmol/L 3.5-5.1 [facility] Protein [Mass/Vol] 6.6 g/dL 6.4-8.2 [facility] Sodium [Moles/Vol] 140 mmol/L 136-145 [facility] WBC (Bld) [#/Vol] 1.9 10*3/uL 4.4-11.0 [facility] Blood erythrocytes count (nu mber/volume)Ordered By: Dr. Calvillo on 11-30-2022 RBC (Bld) [#/Vol] 3.50 10*6/uL 4.2-5.4 [facility] Blood hemoglobin measurement (mass/volume)Ordered By: Dr. Calvillo on 11-30-2022 Hemoglobin (Bld) [Mass/Vol] 12.4 g/dL 12.0-15.0 [facility] Blood lymphocytes/100 leukoc ytesOrdered By: Dr. Calvillo on 11-30-2022 Lymphocytes/100 WBC (Bld) 35.1 % 19-41 [facility] Blood manual differential co mment interpretation (narrative result)Ordered By: Dr. Calvillo on 11-30-2022 Manual differential comment Marcial (Bld) [Interp] SCANNED [facility] Blood monocytes/100 leukocyt esOrdered By: Dr. Calvillo on 11-30-2022 Monocytes/100 WBC (Bld) 12.4 % 0-10 [facility] Blood platelet mean volumeOr dered By: Dr. Calvillo on 11-30-2022 Platelet mean volume (Bld) [Entitic vol] 9.6 fL 6.2-12.0 [facility] Determination of erythrocyte mean corpuscular volume (MCV)Ordered By: Dr. Calvillo on 11-30-2022 MCV (RBC) [Entitic vol] 102.9 fL 81-99 [facility] Hematocrit Auto (Bld) [Volum e fraction]Ordered By: Dr. Calvillo on 11-30-2022 Hematocrit (Bld) [Volume fraction] 36.0 % 37-47 [facility] Laboratory - Chemistry and C hemistry - challengeOrdered By: Dr. Calvillo on 03-21-2023 ALP [Catalytic activity/Vol] 92 U/L 45-117 [facility] ALT [Catalytic activity/Vol] 53 U/L 13-56 [facility] CO2 [Moles/Vol] 29.0 mmol/L 21.0-32.0 [facility] Globulin (S) [Mass/Vol] 3.3 g/dL 2.2-4.2 [facility] Urea nitrogen/Creatinine [Mass ratio] 15.6 mg/mg 10-20 [facility] Laboratory - Hematology and Cell countsOrdered By: Dr. Calvillo on 11-30-2022 Erythrocyte distribution width (RBC) [Entitic vol] 53.5 fL 35.1-43.9 [facility] Erythrocyte distribution width (RBC) [Ratio] 14.4 % 11.6-14.6 [facility] Immature granulocytes/100 WBC (Bld) 0.500 % 0.0-0.9 [facility] Comment on above: IG% - Immature Granu locytes (promyelocytes, myelocytes and metamyelocytes) > 1% indicates that a LEFT SHIFT is Present. MCH (RBC) [Entitic mass] 35.4 pg 27.0-32.0 [facility] Nucleated RBC/100 WBC (Bld) [Ratio] 0 % 0-5 [facility] MCHC Auto (RBC) [Mass/Vol]Or dered By: Dr. Calvillo on 11-30-2022 MCHC (RBC) [Mass/Vol] 34.4 g/dL 32-36 [facility] No Panel InformationOrdered By: Dr. Calvillo on 11-30-2022 Estimated Creatinine Clearance Calc 45.60 ml/min [facility] Estimated GFR (MDRD) Amer 64 mL/min >60 [facility] Comment on above: GFR Calc Estimated GFR (MDRD) Non-Af Amer 53 mL/min >60 [facility] Comment on above: Non- GFR Calc Miscellaneous Test Comment MAILED SPECIMEN [facility] Vitamin D 25-Hydroxy 69.3 ng/mL [facility] Comment on above: Vitamin D 25(OH) Sta tus Range Deficiency <20 ng/mL (50nmol/L) Insufficiency 20 - 30 ng/mL (50 - 75 nmol/L) Sufficiency 30 - 100 ng/mL (75 - 250 nmol/L) Toxicity >100 ng/mL (>250 nmol/L) Platelets bldOrdered By: Dr. Calvillo on 11-30-2022 Platelets (Bld) [#/Vol] 164 10*3/uL 150-450 [facility] Serum or plasma albumin amanda urement (mass/volume)Ordered By: Dr. Calvillo on 11-30-2022 Albumin [Mass/Vol] 3.3 g/dL 3.2-5.0 [facility] Serum or plasma albumin/glob ulin mass ratioOrdered By: Dr. Calvillo on 11-30-2022 Albumin/Globulin [Mass ratio] 1.0 {ratio} 0.9-2.4 [facility] Serum or plasma calcium amanda urement (mass/volume)Ordered By: Dr. Calvillo on 11-30-2022 Calcium [Mass/Vol] 10.3 mg/dL 8.5-10.1 [facility] Serum or plasma creatinine m easurement (mass/volume)Ordered By: Dr. Calvillo on 11-30-2022 Creatinine [Mass/Vol] 1.09 mg/dL 0.55-1.02 [facility] Comment on above: The validity of the calculated GFR & GFRAA in patients over 70 years has not been determined. Clinical correlation is essential. Serum or plasma urea nitroge n measurement (mass/volume)Ordered By: Dr. Calvillo on 11-30-2022 Urea nitrogen [Mass/Vol] 17 mg/dL 7-18 [facility] Thin prep Papanicolaou smear with manual screeningOrdered By: Dr. Calvillo on 11-30-2022 Thin prep Papanicolaou smear with manual screening 59 U/L 15-37 [facility] Thin prep Papanicolaou smear with manual screening 8 5-15 [facility] Blood platelet adequacy dete ction by light microscopyOrdered By: Dr. Calvillo on 10-26-2022 Platelets LM Ql (Bld) ADEQUATE ADEQ [facility] Macrocytes Ql (Bld)Ordered B y: Myron Calvillo on 10-26-2022 Macrocytosis 1+ [facility] Macrocytes detectionOrdered By: Dr. Calvillo on 10-26-2022 Macrocytes Ql (Bld) 1+ [facility] Platelets LM Ql (Bld)Ordered By: Myron Calvillo on 10-26-2022 Platelet Estimate ADEQUATE ADEQ [facility] No Panel InformationOrdered By: Dr. Calvillo on 09-28-2022 CA 15-3 Antigen 33.7 U/mL 0.0-25.0 [facility] Comment on above: [employer] El ectrochemiluminescence Immunoassay(ECLIA)Values obtained with different assay methods or kits cannotbe used interchangeably. Results cannot be interpreted asabsolute evidence of the presence or absence of malignantdisease.Performed at: [employer] [id number] Director: Reese Willingham PhD, Phone: [phone] CA 27.29 33.0 U/mL 0.0-38.6 [facility] Comment on above: [employer] Immu nochemiluminometric Methodology (ICMA)Values obtained with different assay methods or kits cannotbe used interchangeably. Results cannot be interpreted asabsolute evidence of the presence or absence of malignantdisease. Reactive Lymphocytes RARE [facility] Absolute lymphocyte counton 08-31-2022 Lymphocytes Auto (Unsp spec) [#/Vol] 0.62 10*3/uL 0.83-4.51 [facility] Work Phone: [phone] Basophil percentageon 2021 Basophil percentage 4.0 mg/dL 2.5-4.9 [facility] Work Phone: Basophils/100 WBC (Bld) 1.6 % 0-1 [facility] Work Phone: Bilirubin [Mass/Vol] 0.40 mg/dL 0.20-1.00 [facility] Work Phone: Comment on above: For patients on eltr ombopag therapy, use of Dimension [place] TBIL is not recommended. Chloride [Moles/Vol] 105 mmol/L 98-107 [facility] Work Phone: Eosinophils/100 WBC (Bld) 2.6 % 0-5 [facility] Work Phone: [phone] Glucose [Mass/Vol] 165 mg/dL 74-106 [facility] Work Phone: [phone] Comment on above: Fasting Glucose resu lt greater than or equal to 126 mg/dL suggests DIABETES MELLITUS per A.D.A. criteria. Neutrophils (Bld) [#/Vol] 1.0 10*3/uL 2.0-7.7 [facility] Work Phone: Neutrophils/100 WBC (Bld) 50.0 % 47-70 [facility] Work Phone: Potassium [Moles/Vol] 3.7 mmol/L 3.5-5.1 [facility] Work Phone: Protein [Mass/Vol] 6.6 g/dL 6.4-8.2 [facility] Work Phone: Sodium [Moles/Vol] 141 mmol/L 136-145 [facility] Work Phone: WBC (Bld) [#/Vol] 1.9 10*3/uL 4.4-11.0 [facility] Work Phone: [phone] Blood erythrocytes count (nu mber/volume)on 08-31-2022 RBC (Bld) [#/Vol] 3.75 10*6/uL 4.2-5.4 [facility] Work Phone: [phone] Blood hemoglobin measurement (mass/volume)on 08-31-2022 Hemoglobin (Bld) [Mass/Vol] 13.1 g/dL 12.0-15.0 [facility] Work Phone: Blood lymphocytes/100 leukoc yteson 08-31-2022 Lymphocytes/100 WBC (Bld) 32.3 % 19-41 [facility] Work Phone: Blood monocytes/100 leukocyt eson 08-31-2022 Monocytes/100 WBC (Bld) 13.5 % 0-10 [facility] Work Phone: Blood platelet mean volumeon 08-31-2022 Platelet mean volume (Bld) [Entitic vol] 8.9 fL 6.2-12.0 [facility] Work Phone: Determination of erythrocyte mean corpuscular volume (MCV)on 08-31-2022 MCV (RBC) [Entitic vol] 100.0 fL 81-99 [facility] Work Phone: Hematocrit Auto (Bld) [Volum e fraction]on 08-31-2022 Hematocrit (Bld) [Volume fraction] 37.5 % 37-47 [facility] Work Phone: [phone] Laboratory - Chemistry and C hemistry - challengeon 08-31-2022 ALP [Catalytic activity/Vol] 82 U/L 45-117 [facility] Work Phone: [phone] ALT [Catalytic activity/Vol] 62 U/L 13-56 [facility] Work Phone: [phone] CO2 [Moles/Vol] 30.0 mmol/L 21.0-32.0 [facility] Work Phone: [phone] Globulin (S) [Mass/Vol] 3.3 g/dL 2.2-4.2 [facility] Work Phone: [phone] Urea nitrogen/Creatinine [Mass ratio] 11.3 mg/mg - [facility] Work Phone: Laboratory - Hematology and Cell countson 08-31-2022 Erythrocyte distribution width (RBC) [Entitic vol] 55.7 fL 35.1-43.9 [facility] Work Phone: [phone] Erythrocyte distribution width (RBC) [Ratio] 15.1 % 11.6-14.6 [facility] Work Phone: [phone] Immature granulocytes/100 WBC (Bld) 0.000 % 0.0-0.9 [facility] Work Phone: [phone] Comment on above: IG% - Immature Granu locytes (promyelocytes, myelocytes and metamyelocytes) > 1% indicates that a LEFT SHIFT is Present. MCH (RBC) [Entitic mass] 34.9 pg 27.0-32.0 [facility] Work Phone: [phone] Nucleated RBC/100 WBC (Bld) [Ratio] 0 % 0-5 [facility] Work Phone: MCHC Auto (RBC) [Mass/Vol]on 08-31-2022 MCHC (RBC) [Mass/Vol] 34.9 g/dL 32-36 [facility] Work Phone: No Panel Informationon 08-31 Estimated Creatinine Clearance Calc 46.89 ml/min [facility] Work Phone: Estimated GFR (MDRD) Amer 66 mL/min >60 [facility] Work Phone: Comment on above: GFR Calc Estimated GFR (MDRD) Non-Af Amer 55 mL/min >60 [facility] Work Phone: Comment on above: Non- GFR Calc Vitamin D 25-Hydroxy 73.8 ng/mL [facility] Work Phone: Comment on above: Vitamin D 25(OH) Sta tus Range Deficiency <20 ng/mL (50nmol/L) Insufficiency 20 - 30 ng/mL (50 - 75 nmol/L) Sufficiency 30 - 100 ng/mL (75 - 250 nmol/L) Toxicity >100 ng/mL (>250 nmol/L) Platelets bldon 08-31-2022 Platelets (Bld) [#/Vol] 160 10*3/uL 150-450 [facility] Work Phone: Serum or plasma albumin amanda urement (mass/volume)on 08-31-2022 Albumin [Mass/Vol] 3.3 g/dL 3.2-5.0 [facility] Work Phone: Serum or plasma albumin/glob ulin mass ratioon 08-31-2022 Albumin/Globulin [Mass ratio] 1.0 {ratio} 0.9-2.4 [facility] Work Phone: Serum or plasma calcium amanda urement (mass/volume)on 08-31-2022 Calcium [Mass/Vol] 8.9 mg/dL 8.5-10.1 [facility] Work Phone: Serum or plasma creatinine m easurement (mass/volume)on 08-31-2022 Creatinine [Mass/Vol] 1.06 mg/dL 0.55-1.02 [facility] Work Phone: Comment on above: The validity of the calculated GFR & GFRAA in patients over 70 years has not been determined. Clinical correlation is essential. Serum or plasma urea nitroge n measurement (mass/volume)on 08-31-2022 Urea nitrogen [Mass/Vol] 12 mg/dL 7-18 [facility] Work Phone: Thin prep Papanicolaou smear with manual screeningon 08-31-2022 Thin prep Papanicolaou smear with manual screening 56 U/L 15-37 [facility] Work Phone: Thin prep Papanicolaou smear with manual screening 6 5-15 [facility] Work Phone: Thin prep Papanicolaou smear with manual screening 185 U/L 84-246 [facility] Work Phone: No Panel Informationon 08-03 CA 15-3 Antigen 37.0 U/mL 0.0-25.0 [facility] Work Phone: Comment on above: [facility] [employer] El ectrochemiluminescence Immunoassay(ECLIA)Values obtained with different assay methods or kits cannotbe used interchangeably. Results cannot be interpreted asabsolute evidence of the presence or absence of malignantdisease.Performed at: [employer] [place] [id number] Director: Reese Willingham PhD, Phone: [phone] CA 27.29 45.8 U/mL 0.0-38.6 [facility] Work Phone: Comment on above: Siemens 170 Systemsaur Immu nochemiluminometric Methodology (ICMA)Values obtained with different assay methods or kits cannotbe used interchangeably. Results cannot be interpreted asabsolute evidence of the presence or absence of malignantdisease. Laboratory - Chemistry and C hemistry - challengeOrdered By: Dr. Calvillo on 06-07-2022 Magnesium [Mass/Vol] 1.8 mg/dL 1.6-2.6 [facility] Basophil percentageOrdered B y: Dr. Calvillo on 05-31-2022 Basophil percentage 0-5 SEEN /hpf 0-5 [facility] Bilirubin Test strip Ql (U)O rdered By: Dr. Calvillo on 05-31-2022 Bilirubin Ql (U) Negative Negative [facility] Blood manual differential co mment interpretation (narrative result)on 05-31-2022 Manual differential comment Marcial (Bld) [Interp] COMMENT [facility] Work Phone: Comment on above: NEUTROPENIA. Ketones Test strip Ql (U)Ord ered By: Dr. Calvillo on 05-31-2022 Ketones Ql (U) Negative Negative [facility] Mucus LM Ql (Urine sed)Order ed By: Dr. Calvillo on 05-31-2022 Mucus Ql (Urine sed) 0 SEEN /hpf [facility] Nitrite Test strip Ql (U)Ord ered By: Dr. Calvillo on 05-31-2022 Nitrite Ql (U) Negative Negative [facility] Protein Test strip Ql (U)Ord ered By: Dr. Calvillo on 05-31-2022 Protein Ql (U) Negative Negative [facility] Squamous epithelial cells de tection in urine sediment by light microscopyOrdered By: Dr. Calvillo on 05-31-2022 Epithelial cells.squamous LM Ql (Urine sed) 0-5 SEEN /hpf 5-10 [facility] Urine blood detectionOrdered By: Dr. Calvillo on 05-31-2022 RBC Ql (U) 25 /ul Negative [facility] RBC Ql (U) 0-5 SEEN /hpf 0-5 [facility] Urine clarityOrdered By: Dr. Calvillo on 05-31-2022 Clarity (U) Sl. Cloudy Clear [facility] Urine color determinationOrd ered By: Dr. Calvillo on 05-31-2022 Color (U) Yellow Yellow [facility] Urine glucose detectionOrder ed By: Dr. Calvillo on 05-31-2022 Glucose Ql (U) 1000 mg/dl Normal [facility] Urine leukocyte esterase det ection by dipstickOrdered By: Dr. Calvillo on 05-31-2022 Leukocyte esterase Test strip Ql (U) 500 /ul Negative [facility] Urine pHOrdered By: Dr. Calvillo on 05-31-2022 pH (U) 6.0 [pH] 5.0 - 8.0 [facility] Urine sediment bacteria coun t by microscopy (number/high power field)Ordered By: Dr. Calvillo on 05-31-2022 Bacteria LM.HPF (Urine sed) [#/Area] 2 /[HPF] None Seen [facility] Urine specific gravity measu rementOrdered By: Dr. Calvillo on 05-31-2022 Specific gravity (U) [Rel density] 1.015 1.002-1.030 [facility] Urobilinogen Auto test strip Ql (U)Ordered By: Dr. Calvillo on 05-31-2022 Urobilinogen Ql (U) Normal mg/dl Normal [facility] Absolute lymphocyte counton 04-26-2022 Lymphocytes Auto (Unsp spec) [#/Vol] 0.77 10*3/uL 0.83-4.51 [facility] Work Phone: Basophil percentageon 2021 Basophil percentage 3.9 mg/dL 2.5-4.9 [facility] Work Phone: [phone] Basophils/100 WBC (Bld) 2.2 % 0-1 [facility] Work Phone: [phone] Bilirubin [Mass/Vol] 0.30 mg/dL 0.20-1.00 [facility] Work Phone: [phone] Comment on above: For patients on eltr ombopag therapy, use of Dimension [place] TBIL is not recommended. Chloride [Moles/Vol] 103 mmol/L 98-107 [facility] Work Phone: Eosinophils/100 WBC (Bld) 3.6 % 0-5 [facility] Work Phone: [phone] Glucose [Mass/Vol] 145 mg/dL 74-106 [facility] Work Phone: [phone] Comment on above: Fasting Glucose resu lt greater than or equal to 126 mg/dL suggests DIABETES MELLITUS per A.D.A. criteria. Neutrophils (Bld) [#/Vol] 1.3 10*3/uL 2.0-7.7 [facility] Work Phone: Neutrophils/100 WBC (Bld) 48.7 % 47-70 [facility] Work Phone: Potassium [Moles/Vol] 4.2 mmol/L 3.5-5.1 [facility] Work Phone: Protein [Mass/Vol] 6.4 g/dL 6.4-8.2 [facility] Work Phone: Sodium [Moles/Vol] 138 mmol/L 136-145 [place] [facility] Work Phone: WBC (Bld) [#/Vol] 2.8 10*3/uL 4.4-11.0 [facility] Work Phone: Blood erythrocytes count (nu mber/volume)on 04-26-2022 RBC (Bld) [#/Vol] 3.56 10*6/uL 4.2-5.4 [place] [facility] Work Phone: Blood hemoglobin measurement (mass/volume)on 04-26-2022 Hemoglobin (Bld) [Mass/Vol] 11.8 g/dL 12.0-15.0 [facility] Work Phone: Blood lymphocytes/100 leukoc yteson 04-26-2022 Lymphocytes/100 WBC (Bld) 28.0 % 19-41 [facility] Work Phone: Blood monocytes/100 leukocyt eson 04-26-2022 Monocytes/100 WBC (Bld) 17.1 % 0-10 [facility] Work Phone: Blood platelet mean volumeon 04-26-2022 Platelet mean volume (Bld) [Entitic vol] 9.3 fL 6.2-12.0 [facility] Work Phone: Determination of erythrocyte mean corpuscular volume (MCV)on 04-26-2022 MCV (RBC) [Entitic vol] 98.6 fL 81-99 [facility] Work Phone: Hematocrit Auto (Bld) [Volum e fraction]on 04-26-2022 Hematocrit (Bld) [Volume fraction] 35.1 % 37-47 [facility] Work Phone: [phone] Laboratory - Chemistry and C hemistry - challengeon 04-26-2022 ALP [Catalytic activity/Vol] 140 U/L 45-117 [facility] Work Phone: ALT [Catalytic activity/Vol] 58 U/L 13-56 [facility] Work Phone: [phone] CO2 [Moles/Vol] 30.0 mmol/L 21.0-32.0 [facility] Work Phone: [phone] Globulin (S) [Mass/Vol] 3.2 g/dL 2.2-4.2 [facility] Work Phone: [phone] Urea nitrogen/Creatinine [Mass ratio] 24.7 mg/mg 10-20 [facility] Work Phone: [phone] Laboratory - Hematology and Cell countson 04-26-2022 Erythrocyte distribution width (RBC) [Entitic vol] 62.3 fL 35.1-43.9 [facility] Work Phone: [phone] Erythrocyte distribution width (RBC) [Ratio] 17.0 % 11.6-14.6 [facility] Work Phone: [phone] Immature granulocytes/100 WBC (Bld) 0.400 % 0.0-0.9 [facility] Work Phone: [phone] Comment on above: IG% - Immature Granu locytes (promyelocytes, myelocytes and metamyelocytes) > 1% indicates that a LEFT SHIFT is Present. MCH (RBC) [Entitic mass] 33.1 pg 27.0-32.0 [facility] Work Phone: [phone] Nucleated RBC/100 WBC (Bld) [Ratio] 0.7 % 0-5 [facility] Work Phone: [phone] MCHC Auto (RBC) [Mass/Vol]on 04-26-2022 MCHC (RBC) [Mass/Vol] 33.6 g/dL 32-36 [facility] Work Phone: [phone] No Panel Informationon 04-26 Estimated Creatinine Clearance Calc 53.45 ml/min [facility] Work Phone: Estimated GFR (MDRD) Amer 77 mL/min >60 [facility] Work Phone: Comment on above: GFR Calc Estimated GFR (MDRD) Non-Af Amer 63 mL/min >60 [facility] Work Phone: Comment on above: Non- GFR Calc Vitamin D 25-Hydroxy 64.7 ng/mL [facility] Work Phone: Comment on above: Vitamin D 25(OH) Sta tus Range Deficiency <20 ng/mL (50nmol/L) Insufficiency 20 - 30 ng/mL (50 - 75 nmol/L) Sufficiency 30 - 100 ng/mL (75 - 250 nmol/L) Toxicity >100 ng/mL (>250 nmol/L) Platelets bldon 04-26-2022 Platelets (Bld) [#/Vol] 195 10*3/uL 150-450 [facility] Work Phone: Serum or plasma albumin amanda urement (mass/volume)on 04-26-2022 Albumin [Mass/Vol] 3.2 g/dL 3.2-5.0 [facility] Work Phone: Serum or plasma albumin/glob ulin mass ratioon 04-26-2022 Albumin/Globulin [Mass ratio] 1.0 {ratio} 0.9-2.4 [facility] Work Phone: Serum or plasma calcium amanda urement (mass/volume)on 04-26-2022 Calcium [Mass/Vol] 9.0 mg/dL 8.5-10.1 [facility] Work Phone: Serum or plasma creatinine m easurement (mass/volume)on 04-26-2022 Creatinine [Mass/Vol] 0.93 mg/dL 0.55-1.02 [facility] Work Phone: Comment on above: The validity of the calculated GFR & GFRAA in patients over 70 years has not been determined. Clinical correlation is essential. Serum or plasma urea nitroge n measurement (mass/volume)on 04-26-2022 Urea nitrogen [Mass/Vol] 23 mg/dL 7-18 [facility] Work Phone: Thin prep Papanicolaou smear with manual screeningon 04-26-2022 Thin prep Papanicolaou smear with manual screening 50 U/L 15-37 [facility] Work Phone: Thin prep Papanicolaou smear with manual screening 5 5-15 [facility] Work Phone: Basophil percentageOrdered B y: Dr. Calvillo on 04-19-2022 Cholesterol [Mass/Vol] 133 mg/dL <200 [facility] Comment on above: <200 mg/dL Desirable 200-240 mg/dL Borderline >240 mg/dL High Risk Triglyceride [Mass/Vol] 260 mg/dL High <199 [facility] Comment on above: The drugs N-Acetylcy steine and Metamizole may falsely depress this assay.Serum Triglycerides Reference Interval Normal <150 mg/dL Borderline high 150 - 199 mg/dL High 200 - 499 mg/dL Very High > or = 500 mg/dL Blood platelet adequacy dete ction by light microscopyon 04-19-2022 Platelets LM Ql (Bld) ADEQUATE ADEQ [facility] Work Phone: Blood polychromasia detectio n by light microscopyOrdered By: Dr. Calvillo on 04-19-2022 Polychromasia LM Ql (Bld) 1+ [facility] Cholesterol in VLDL [Mass/Vo l]Ordered By: Myron Calvillo on 04-19-2022 VLDL Cholesterol 52 mg/dL High 5-40 [facility] Laboratory - Chemistry and C hemistry - challengeOrdered By: Dr. Calvillo on 04-19-2022 Free T4 [Mass/Vol] 1.07 ng/dL 0.76-1.46 [facility] Laboratory - Hematology and Cell countsOrdered By: Dr. Calvillo on 04-19-2022 Anisocytosis Ql (Bld) 1+ [facility] No Panel InformationOrdered By: Dr. Calvillo on 04-19-2022 Thyroid Stimulating Hormone (TSH) 1.74 uIU/mL 0.358-3.74 [facility] Polychromasia LM Ql (Bld)Ord ered By: Myron Calvillo on 04-19-2022 Polychromasia 1+ [facility] Review by pathologistOrdered By: Dr. Calvillo on 04-19-2022 Pathologist review Marcial (Unsp spec) [Interp] Reviewed [facility] Comment on above: Previous reported re sult: Anastasia schwab Edited by: RGOROBERT on 04/20/22:1301Leukopenia and neutropenia. Clinical correlation necessary.Iam Mcclure M.D. 04/20/22 AMENDED REPORT 04/20/22 1301 PATH REV previously reported as: Anastasia schwab Serum or plasma cholesterol in HDL measurement (mass/volume)Ordered By: Dr. Calvillo on 04-19-2022 Cholesterol in HDL [Mass/Vol] 39 mg/dL Low >40 [facility] Comment on above: The drugs N-Acetylcy steine and Metamizole may falsely depress this assay. Reference Range HDL <40 mg/dL Low HDL Cholesterol HDL >or= 60 mg/dL High HDL Cholesterol Serum or plasma cholesterol in VLDL measurement (mass/volume)Ordered By: Dr. Calvillo on 04-19-2022 Cholesterol in VLDL [Mass/Vol] 52 mg/dL High 5-40 [facility] Serum or plasma low density lipoprotein (LDL) cholesterol measurement (mass/volume)Ordered By: Dr. Calvillo on 04-19-2022 Cholesterol in LDL [Mass/Vol] 42 mg/dL 0-130 [facility] Thin prep Papanicolaou smear with manual screeningon 04-19-2022 Thin prep Papanicolaou smear with manual screening 176 U/L 84-246 [facility] Work Phone: Blood manual differential co mment interpretation (narrative result)on 03-16-2022 Manual differential comment Marcial (Bld) [Interp] SCANNED [facility] Work Phone: Comment on above: NEUTROPENIA NOTED No Panel Informationon 03-16 CA 15-3 Antigen 61.6 U/mL 0.0-25.0 [facility] Work Phone: Comment on above: [employer] El ectrochemiluminescence Immunoassay(ECLIA)Values obtained with different assay methods or kits cannotbe used interchangeably. Results cannot be interpreted asabsolute evidence of the presence or absence of malignantdisease.Performed at: [facility] [id number] [place], [place] [id number] Director: Reese Willingham PhD, Phone: [phone] [place] 27.29 84.6 U/mL 0.0-38.6 [facility] Work Phone: Comment on above: [employer]ens Centaur Immu nochemiluminometric Methodology (ICMA)Values obtained with different assay methods or kits cannotbe used interchangeably. Results cannot be interpreted asabsolute evidence of the presence or absence of malignantdisease. No Panel Informationon 02-09 D-Dimer Quantitative (PE/DVT) 0.28 FEU/ug/m 0.27-0.49 [facility] Comment on above: NORMAL D-Dimer level (<0.50) indicates no DVT or PE. RBC morphologyon 02-09-2022 RBC morphology finding Nom (Bld) N CYTIC NORMAL NORM C&C [facility] RBC morphology finding Nom ( Bld)on 02-09-2022 Red Blood Cell Morphology N CYTIC NORMAL NORM C&C [facility] Laboratory - Chemistry and C hemistry - challengeon 01-14-2022 Free T4 [Mass/Vol] 1.13 ng/dL 0.76-1.46 [facility] Work Phone: No Panel Informationon 01-14 Thyroid Stimulating Hormone (TSH) 4.33 uIU/mL 0.358-3.74 [facility] Work Phone: Absolute lymphocyte counton 01-11-2022 Lymphocytes Auto (Unsp spec) [#/Vol] 0.82 10*3/uL 0.83-4.51 [facility] Work Phone: Basophil percentageon 2021 Basophil percentage 3.6 mg/dL 2.5-4.9 [facility] Work Phone: Basophils/100 WBC (Bld) 0.4 % 0-1 [facility] Work Phone: Bilirubin [Mass/Vol] 0.40 mg/dL 0.20-1.00 [facility] Work Phone: Comment on above: For patients on eltr ombopag therapy, use of Dimension [place] TBIL is not recommended. Chloride [Moles/Vol] 102 mmol/L 98-107 [facility] Work Phone: Eosinophils/100 WBC (Bld) 1.9 % 0-5 [facility] Work Phone: Glucose [Mass/Vol] 169 mg/dL 74-106 [facility] Work Phone: Comment on above: Fasting Glucose resu lt greater than or equal to 126 mg/dL suggests DIABETES MELLITUS per A.D.A. criteria. Neutrophils (Bld) [#/Vol] 4.0 10*3/uL 2.0-7.7 [facility] Work Phone: Neutrophils/100 WBC (Bld) 74.3 % 47-70 [facility] Work Phone: Potassium [Moles/Vol] 4.1 mmol/L 3.5-5.1 [facility] Work Phone: Protein [Mass/Vol] 6.7 g/dL 6.4-8.2 [facility] Work Phone: Sodium [Moles/Vol] 138 mmol/L 136-145 [facility] Work Phone: WBC (Bld) [#/Vol] 5.4 10*3/uL 4.4-11.0 [facility] Work Phone: Blood erythrocytes count (nu mber/volume)on 01-11-2022 RBC (Bld) [#/Vol] 4.25 10*6/uL 4.2-5.4 [facility] Work Phone: Blood hemoglobin measurement (mass/volume)on 01-11-2022 Hemoglobin (Bld) [Mass/Vol] 12.8 g/dL 12.0-15.0 [facility] Work Phone: Blood lymphocytes/100 leukoc yteson 01-11-2022 Lymphocytes/100 WBC (Bld) 15.2 % 19-41 [facility] Work Phone: Blood monocytes/100 leukocyt eson 01-11-2022 Monocytes/100 WBC (Bld) 7.8 % 0-10 [facility] Work Phone: Blood platelet mean volumeon 01-11-2022 Platelet mean volume (Bld) [Entitic vol] 9.5 fL 6.2-12.0 [facility] Work Phone: [phone] Determination of erythrocyte mean corpuscular volume (MCV)on 01-11-2022 MCV (RBC) [Entitic vol] 90.8 fL 81-99 [facility] Work Phone: Hematocrit Auto (Bld) [Volum e fraction]on 01-11-2022 Hematocrit (Bld) [Volume fraction] 38.6 % 37-47 [facility] Work Phone: [phone] Laboratory - Chemistry and C hemistry - challengeon 01-11-2022 ALP [Catalytic activity/Vol] 199 U/L 45-117 [facility] Work Phone: ALT [Catalytic activity/Vol] 34 U/L 13-56 [facility] Work Phone: CO2 [Moles/Vol] 29.0 mmol/L 21.0-32.0 [facility] Work Phone: [phone] Globulin (S) [Mass/Vol] 3.6 g/dL 2.2-4.2 [facility] Work Phone: [phone] Urea nitrogen/Creatinine [Mass ratio] 14.9 mg/mg 10-20 [facility] Work Phone: Laboratory - Hematology and Cell countson 01-11-2022 Erythrocyte distribution width (RBC) [Entitic vol] 47.1 fL 35.1-43.9 [facility] Work Phone: Erythrocyte distribution width (RBC) [Ratio] 14.1 % 11.6-14.6 [facility] Work Phone: Immature granulocytes/100 WBC (Bld) 0.400 % 0.0-0.9 [facility] Work Phone: Comment on above: IG% - Immature Granu locytes (promyelocytes, myelocytes and metamyelocytes) > 1% indicates that a LEFT SHIFT is Present. MCH (RBC) [Entitic mass] 30.1 pg 27.0-32.0 [facility] Work Phone: Nucleated RBC/100 WBC (Bld) [Ratio] 0 % 0-5 [facility] Work Phone: MCHC Auto (RBC) [Mass/Vol]on 01-11-2022 MCHC (RBC) [Mass/Vol] 33.2 g/dL 32-36 [facility] Work Phone: No Panel Informationon 01-11 CA 15-3 Antigen 60.7 U/mL [facility] Work Phone: Comment on above: [employer] El ectrochemiluminescence Immunoassay(ECLIA)Values obtained with different assay methods or kits cannotbe used interchangeably. Results cannot be interpreted asabsolute evidence of the presence or absence of malignantdisease.Performed at: [employer] Director: Reese Willingham PhD, Phone: [phone] [place] 27.29 82.9 U/mL [facility] Work Phone: Comment on above: Siemens Centaur Immu nochemiluminometric Methodology (ICMA)Values obtained with different assay methods or kits cannotbe used interchangeably. Results cannot be interpreted asabsolute evidence of the presence or absence of malignantdisease. Estimated Creatinine Clearance Calc 44.21 ml/min [facility] Work Phone: Estimated GFR (MDRD) Amer 61 mL/min >60 [facility] Work Phone: Comment on above: GFR Calc Estimated GFR (MDRD) Non-Af Amer 50 mL/min >60 [facility] Work Phone: Comment on above: Non- GFR Calc Vitamin D 25-Hydroxy 94.8 ng/mL [facility] Work Phone: Comment on above: Vitamin D 25(OH) Sta tus Range Deficiency <20 ng/mL (50nmol/L) Insufficiency 20 - 30 ng/mL (50 - 75 nmol/L) Sufficiency 30 - 100 ng/mL (75 - 250 nmol/L) Toxicity >100 ng/mL (>250 nmol/L) Platelets bldon 01-11-2022 Platelets (Bld) [#/Vol] 249 10*3/uL 150-450 [facility] Work Phone: Serum or plasma albumin amanda urement (mass/volume)on 01-11-2022 Albumin [Mass/Vol] 3.1 g/dL 3.2-5.0 [facility] Work Phone: Serum or plasma albumin/glob ulin mass ratioon 01-11-2022 Albumin/Globulin [Mass ratio] 0.9 {ratio} 0.9-2.4 [facility] Work Phone: Serum or plasma calcium amanda urement (mass/volume)on 01-11-2022 Calcium [Mass/Vol] 8.6 mg/dL 8.5-10.1 [facility] Work Phone: Serum or plasma creatinine m easurement (mass/volume)on 01-11-2022 Creatinine [Mass/Vol] 1.14 mg/dL 0.55-1.02 [facility] Work Phone: Comment on above: The validity of the calculated GFR & GFRAA in patients over 70 years has not been determined. Clinical correlation is essential. Serum or plasma urea nitroge n measurement (mass/volume)on 01-11-2022 Urea nitrogen [Mass/Vol] 17 mg/dL 7-18 [facility] Work Phone: Thin prep Papanicolaou smear with manual screeningon 01-11-2022 Thin prep Papanicolaou smear with manual screening 42 U/L 15-37 [facility] Work Phone: Thin prep Papanicolaou smear with manual screening 7 5-15 [facility] Work Phone: Thin prep Papanicolaou smear with manual screening 185 U/L 84-246 [facility] Work Phone: Absolute lymphocyte counton 11-30-2021 Lymphocytes Auto (Unsp spec) [#/Vol] 0.88 10*3/uL 0.83-4.51 [facility] Work Phone: Basophil percentageon 2021 Basophil percentage 25-50 SEEN /hpf 0-5 [facility] Work Phone: Basophils/100 WBC (Bld) 0.6 % 0-1 [facility] Work Phone: Bilirubin [Mass/Vol] 0.40 mg/dL 0.20-1.00 [facility] Work Phone: Comment on above: For patients on eltr ombopag therapy, use of Dimension [place] TBIL is not recommended. Chloride [Moles/Vol] 109 mmol/L 98-107 [facility] Work Phone: Eosinophils/100 WBC (Bld) 2.4 % 0-5 [facility] Work Phone: Glucose [Mass/Vol] 105 mg/dL 74-106 [facility] Work Phone: Comment on above: Fasting Glucose resu lt from 100 to 125 mg/dL suggests IMPAIRED HOMEOSTASIS per A.D.A. criteria. Neutrophils (Bld) [#/Vol] 3.2 10*3/uL 2.0-7.7 [facility] Work Phone: Neutrophils/100 WBC (Bld) 67.8 % 47-70 [facility] Work Phone: Potassium [Moles/Vol] 3.7 mmol/L 3.5-5.1 [facility] Work Phone: Protein [Mass/Vol] 6.1 g/dL 6.4-8.2 [facility] Work Phone: Sodium [Moles/Vol] 140 mmol/L 136-145 [facility] Work Phone: WBC (Bld) [#/Vol] 4.7 10*3/uL 4.4-11.0 [facility] Work Phone: Bilirubin Test strip Ql (U)o n 11-30-2021 Bilirubin Ql (U) Negative Negative [facility] Work Phone: Blood erythrocytes count (nu mber/volume)on 11-30-2021 RBC (Bld) [#/Vol] 4.00 10*6/uL 4.2-5.4 [facility] Work Phone: Blood hemoglobin measurement (mass/volume)on 11-30-2021 Hemoglobin (Bld) [Mass/Vol] 12.3 g/dL 12.0-15.0 [facility] Work Phone: Blood lymphocytes/100 leukoc yteson 11-30-2021 Lymphocytes/100 WBC (Bld) 18.9 % 19-41 [facility] Work Phone: Blood monocytes/100 leukocyt eson 11-30-2021 Monocytes/100 WBC (Bld) 9.9 % 0-10 [facility] Work Phone: Blood platelet mean volumeon 11-30-2021 Platelet mean volume (Bld) [Entitic vol] 9.8 fL 6.2-12.0 [facility] Work Phone: Determination of erythrocyte mean corpuscular volume (MCV)on 11-30-2021 MCV (RBC) [Entitic vol] 92.0 fL 81-99 [facility] Work Phone: Hematocrit Auto (Bld) [Volum e fraction]on 11-30-2021 Hematocrit (Bld) [Volume fraction] 36.8 % 37-47 [facility] Work Phone: Ketones Test strip Ql (U)on 11-30-2021 Ketones Ql (U) Negative Negative [facility] Work Phone: Laboratory - Chemistry and C hemistry - challengeon 11-30-2021 ALP [Catalytic activity/Vol] 150 U/L 45-117 [facility] Work Phone: ALT [Catalytic activity/Vol] 37 U/L 13-56 [facility] Work Phone: CO2 [Moles/Vol] 27.0 mmol/L 21.0-32.0 [facility] Work Phone: [phone] Globulin (S) [Mass/Vol] 3.1 g/dL 2.2-4.2 [facility] Work Phone: Urea nitrogen/Creatinine [Mass ratio] 15.4 mg/mg 10-20 [facility] Work Phone: [phone] Laboratory - Hematology and Cell countson 11-30-2021 Erythrocyte distribution width (RBC) [Entitic vol] 45.4 fL 35.1-43.9 [facility] Work Phone: Erythrocyte distribution width (RBC) [Ratio] 13.4 % 11.6-14.6 [facility] Work Phone: [phone] Immature granulocytes/100 WBC (Bld) 0.400 % 0.0-0.9 [facility] Work Phone: Comment on above: IG% - Immature Granu locytes (promyelocytes, myelocytes and metamyelocytes) > 1% indicates that a LEFT SHIFT is Present. MCH (RBC) [Entitic mass] 30.8 pg 27.0-32.0 [facility] Work Phone: Nucleated RBC/100 WBC (Bld) [Ratio] 0 % 0-5 [facility] Work Phone: MCHC Auto (RBC) [Mass/Vol]on 11-30-2021 MCHC (RBC) [Mass/Vol] 33.4 g/dL 32-36 [facility] Work Phone: [phone] Mucus LM Ql (Urine sed)on Mucus Ql (Urine sed) 0 SEEN /hpf [facility] Work Phone: [phone] Nitrite Test strip Ql (U)on 11-30-2021 Nitrite Ql (U) Positive Negative [facility] Work Phone: No Panel Informationon 11-30 CA 15-3 Antigen 49.1 U/mL [facility] Work Phone: Comment on above: [employer] El ectrochemiluminescence Immunoassay(ECLIA)Values obtained with different assay methods or kits cannotbe used interchangeably. Results cannot be interpreted asabsolute evidence of the presence or absence of malignantdisease.Performed at: [facility] [id number] Director: Reese Willingham PhD, Phone: [phone] CA 27.29 69.0 U/mL [facility] Work Phone: Comment on above: [employer]ens 170 Systemsaur Immu nochemiluminometric Methodology (ICMA)Values obtained with different assay methods or kits cannotbe used interchangeably. Results cannot be interpreted asabsolute evidence of the presence or absence of malignantdisease. Estimated Creatinine Clearance Calc 48.47 ml/min [facility] Work Phone: Estimated GFR (MDRD) Amer 68 mL/min >60 [facility] Work Phone: Comment on above: GFR Calc Estimated GFR (MDRD) Non-Af Amer 56 mL/min >60 [facility] Work Phone: Comment on above: Non- GFR Calc Platelets bldon 11-30-2021 Platelets (Bld) [#/Vol] 198 10*3/uL 150-450 [facility] Work Phone: Protein Test strip Ql (U)on 11-30-2021 Protein Ql (U) 30 mg/dl Negative [facility] Work Phone: Serum or plasma albumin amanda urement (mass/volume)on 11-30-2021 Albumin [Mass/Vol] 3.0 g/dL 3.2-5.0 [facility] Work Phone: Serum or plasma albumin/glob ulin mass ratioon 11-30-2021 Albumin/Globulin [Mass ratio] 1.0 {ratio} 0.9-2.4 [facility] Work Phone: Serum or plasma calcium amanda urement (mass/volume)on 11-30-2021 Calcium [Mass/Vol] 9.0 mg/dL 8.5-10.1 [facility] Work Phone: Serum or plasma creatinine m easurement (mass/volume)on 11-30-2021 Creatinine [Mass/Vol] 1.04 mg/dL 0.55-1.02 [facility] Work Phone: Comment on above: The validity of the calculated GFR & GFRAA in patients over 70 years has not been determined. Clinical correlation is essential. Serum or plasma urea nitroge n measurement (mass/volume)on 11-30-2021 Urea nitrogen [Mass/Vol] 16 mg/dL 7-18 [facility] Work Phone: Squamous epithelial cells de tection in urine sediment by light microscopyon 11-30-2021 Epithelial cells.squamous LM Ql (Urine sed) 0-5 SEEN /hpf 5-10 [facility] Work Phone: Thin prep Papanicolaou smear with manual screeningon 11-30-2021 Thin prep Papanicolaou smear with manual screening 41 U/L 15-37 [facility] Work Phone: Thin prep Papanicolaou smear with manual screening 4 5-15 [facility] Work Phone: Thin prep Papanicolaou smear with manual screening 163 U/L 84-246 [facility] Work Phone: Urine blood detectionon - RBC Ql (U) 25 /ul Negative [facility] Work Phone: RBC Ql (U) 0-5 SEEN /hpf 0-5 [facility] Work Phone: Urine clarityon 11-30-2021 Clarity (U) Sl. Cloudy Clear [facility] Work Phone: Urine color determinationon 11-30-2021 Color (U) Yellow Yellow [facility] Work Phone: Urine glucose detectionon Glucose Ql (U) 1000 mg/dl Normal [facility] Work Phone: Urine leukocyte esterase det ection by dipstickon 11-30-2021 Leukocyte esterase Test strip Ql (U) 500 /ul Negative [facility] Work Phone: Urine pHon 11-30-2021 pH (U) 5.0 [pH] 5.0 - 8.0 [facility] Work Phone: Urine sediment bacteria coun t by microscopy (number/high power field)on 11-30-2021 Bacteria LM.HPF (Urine sed) [#/Area] 1 /[HPF] None Seen [facility] Work Phone: Urine specific gravity measu rementon 11-30-2021 Specific gravity (U) [Rel density] 1.015 1.002-1.030 [facility] Work Phone: Urobilinogen Auto test strip Ql (U)on 11-30-2021 Urobilinogen Ql (U) Normal mg/dl Normal [facility] Work Phone: Basophil percentageon 2021 Cholesterol [Mass/Vol] 123 mg/dL <200 [facility] Work Phone: Comment on above: <200 mg/dL Desirable 200-240 mg/dL Borderline >240 mg/dL High Risk Triglyceride [Mass/Vol] 171 mg/dL [facility] Work Phone: Comment on above: The drugs N-Acetylcy steine and Metamizole may falsely depress this assay.Serum Triglycerides Reference Interval Normal <150 mg/dL Borderline high 150 - 199 mg/dL High 200 - 499 mg/dL Very High > or = 500 mg/dL No Panel Informationon 11-09 Thyroid Stimulating Hormone (TSH) 10.00 uIU/mL 0.358-3.74 [facility] Work Phone: Serum or plasma cholesterol in HDL measurement (mass/volume)on 11-09-2021 Cholesterol in HDL [Mass/Vol] 40 mg/dL [facility] Work Phone: Comment on above: The drugs N-Acetylcy steine and Metamizole may falsely depress this assay. Reference Range HDL <40 mg/dL Low HDL Cholesterol HDL >or= 60 mg/dL High HDL Cholesterol Serum or plasma cholesterol in VLDL measurement (mass/volume)on 11-09-2021 Cholesterol in VLDL [Mass/Vol] 34 mg/dL 5-40 [facility] Work Phone: Serum or plasma low density lipoprotein (LDL) cholesterol measurement (mass/volume)on 11-09-2021 Cholesterol in LDL [Mass/Vol] 49 mg/dL 0-130 [facility] Work Phone: Basophil percentageon 2021 Creatinine [Mass/Vol] 1.0 mg/dL 0.55-1.02 [facility] Work Phone: Laboratory - Chemistry and C hemistry - challengeon 11-05-2021 GFR/1.73 sq M.predicted among non-blacks MDRD (S/P/Bld) [Vol rate/Area] 56.0000 mL/min/{1.73_m2} >60 [facility] Work Phone: Vital Signs Date Time Vital Sign Value Performing Clinician Faci lity 05-30-2025 14:21-0400 Body height 167.[address] Rae Aguirre MD Work Phone: [facility] 05-30-2025 14:21-0400 Body mass index (BMI) [Ratio] 36.8 kg/m2 Dr. Rae Aguirre MD Work Phone: [facility] 05-30-2025 14:21-0400 Body temperature 98.2 [degF] Dr. Rae Aguirre MD Work Phone: [facility] 05-30-2025 14:21-0400 Body weight 103.[address] Rae Aguirre MD Work Phone: [facility] 05-30-2025 14:21-0400 Diastolic blood pressure 61 mm[Hg] Dr. Rae Aguirre MD Work Phone: [facility] 05-30-2025 14:21-0400 Heart rate 62 /min Dr. Rae Aguirre MD Work Phone: [facility] 05-30-2025 14:21-0400 Respiratory rate 16 /min Dr. Rae Aguirre MD Work Phone: [facility] 05-30-2025 14:21-0400 SaO2% (BldA) [Mass fraction] 97 % Dr. Rae Aguirre MD Work Phone: [facility] 05-30-2025 14:21-0400 Systolic blood pressure 132 mm[Hg] Dr. Rae Aguirre MD Work Phone: 7(317)242-211038 [address] 05-02-2025 10:44-0400 Body height 167.[address] Rae Aguirre MD Work Phone: 7(578)089-401602 [place] [address] 05-02-2025 10:44-0400 Body mass index (BMI) [Ratio] 36.3 kg/m2 Dr. Rae Aguirre MD Work Phone: 0(848)063-645302 [place] [address] 05-02-2025 10:44-0400 Body temperature 98.2 [degF] Dr. Rae Aguirre MD Work Phone: 8(600)649-841873 [place] [address] 05-02-2025 10:44-0400 Body weight 102.[address] Rae Aguirre MD Work Phone: 8(729)799-109138 [address] 05-02-2025 10:44-0400 Diastolic blood pressure 70 mm[Hg] Dr. Rae Aguirre MD Work Phone: 1(691)642-036673 [place] [address] 05-02-2025 10:44-0400 Heart rate 68 /min Dr. Rae Aguirre MD Work Phone: [facility] 05-02-2025 10:44-0400 Respiratory rate 18 /min Dr. Rae Aguirre MD Work Phone: 4(817)546-344073 [place] [address] 05-02-2025 10:44-0400 SaO2% (BldA) [Mass fraction] 93 % Dr. Rae Aguirre MD Work Phone: [facility] 05-02-2025 10:44-0400 Systolic blood pressure 131 mm[Hg] Dr. Rae Aguirre MD Work Phone: [facility] 04-04-2025 14:52-0400 Body height 167.[address] Rae Aguirre MD Work Phone: [facility] 04-04-2025 14:52-0400 Body mass index (BMI) [Ratio] 36.6 kg/m2 Dr. Rae Aguirre MD Work Phone: 3(231)060-150502 [place] [address] 04-04-2025 14:52-0400 Body temperature 97.9 [degF] Dr. Rae Aguirre MD Work Phone: 6(670)508-236502 [place] [address] 04-04-2025 14:52-0400 Body weight 103.[address] Rae Aguirre MD Work Phone: 8(286)734-990302 [place] [address] 04-04-2025 14:52-0400 Diastolic blood pressure 70 mm[Hg] Dr. Rae Aguirre MD Work Phone: 2(278)113-892402 [place] [address] 04-04-2025 14:52-0400 Heart rate 84 /min Dr. Rae Aguirre MD Work Phone: 4(186)877-362502 [place] [address] 04-04-2025 14:52-0400 Respiratory rate 18 /min Dr. Rae Aguirre MD Work Phone: 3(394)850-943502 [place] [address] 04-04-2025 14:52-0400 SaO2% (BldA) [Mass fraction] 93 % Dr. Rae Aguirre MD Work Phone: 1(759)055-942673 [place] [address] 04-04-2025 14:52-0400 Systolic blood pressure 126 mm[Hg] Dr. Rae Aguirre MD Work Phone: 1(054)321-263302 [place] [address] 03-21-2025 13:20-0400 Body height 167.[address] Rae Aguirre MD Work Phone: 5(875)995-435602 [place] [address] 03-21-2025 13:20-0400 Body mass index (BMI) [Ratio] 35.8 kg/m2 Dr. Rae Aguirre MD Work Phone: 0(608)377-660573 [place] [address] 03-21-2025 13:20-0400 Body weight 100.[address] Rae Aguirre MD Work Phone: [facility] 03-21-2025 13:20-0400 Diastolic blood pressure 79 mm[Hg] Dr. Rae Aguirre MD Work Phone: [facility] 03-21-2025 13:20-0400 Heart rate 106 /min Dr. Rae Aguirre MD Work Phone: [facility] 03-21-2025 13:20-0400 Respiratory rate 16 /min Dr. Rae Aguirre MD Work Phone: [facility] 03-21-2025 13:20-0400 SaO2% (BldA) [Mass fraction] 93 % Dr. Rae Aguirre MD Work Phone: [facility] 03-21-2025 13:20-0400 Systolic blood pressure 131 mm[Hg] Dr. Rae Aguirre MD Work Phone: [facility] 03-14-2025 11:08-0400 Body height 167.[address] Rae Aguirre MD Work Phone: [facility] 03-14-2025 11:08-0400 Body mass index (BMI) [Ratio] 36.8 kg/m2 Dr. Rae Aguirre MD Work Phone: [facility] 03-14-2025 11:08-0400 Body temperature 98.4 [degF] Dr. Rae Aguirre MD Work Phone: [facility] 03-14-2025 11:08-0400 Body weight 103.[address] Rae Aguirre MD Work Phone: [facility] 03-14-2025 11:08-0400 Diastolic blood pressure 62 mm[Hg] Dr. Rae Aguirre MD Work Phone: [facility] 03-14-2025 11:08-0400 Heart rate 94 /min Dr. Rae Aguirre MD Work Phone: [facility] 03-14-2025 11:08-0400 Respiratory rate 18 /min Dr. Rae Aguirre MD Work Phone: [facility] 03-14-2025 11:08-0400 Systolic blood pressure 127 mm[Hg] Dr. Rae Aguirre MD Work Phone: 7(885)363-538573 [place] [address] 03-14-2025 10:58-0400 Body mass index (BMI) [Ratio] 36.8 kg/m2 Dr. Rae Aguirre MD Work Phone: 5(756)378-881873 [place] [address] 03-14-2025 10:58-0400 Body temperature 98.4 [degF] Dr. Rae Aguirre MD Work Phone: 7(600)085-693202 [place] [address] 03-14-2025 10:58-0400 Diastolic blood pressure 62 mm[Hg] Dr. Rae Aguirre MD Work Phone: 0(016)124-961273 [place] [address] 03-14-2025 10:58-0400 Heart rate 94 /min Dr. Rae Aguirre MD Work Phone: 4(843)255-209273 [place] [address] 03-14-2025 10:58-0400 Respiratory rate 18 /min Dr. Rae Aguirre MD Work Phone: 4(682)177-734573 [place] [address] 03-14-2025 10:58-0400 SaO2% (BldA) [Mass fraction] 95 % Dr. Rae Aguirre MD Work Phone: [facility] 03-14-2025 10:58-0400 Systolic blood pressure 127 mm[Hg] Dr. Rae Aguirre MD Work Phone: 2(903)577-512073 [place] [address] 02-14-2025 10:43-0400 Body height 167.[address] Rae Aguirre MD Work Phone: 2(102)685-564502 [place] [address] 02-14-2025 10:43-0400 Body mass index (BMI) [Ratio] 37 kg/m2 Dr. Rae Aguirre MD Work Phone: 7(875)439-671073 [place] [address] 02-14-2025 10:43-0400 Body temperature 98.2 [degF] Dr. Rae Aguirre MD Work Phone: [facility] 02-14-2025 10:43-0400 Body weight 103.[address] Rae Aguirre MD Work Phone: [facility] 02-14-2025 10:43-0400 Diastolic blood pressure 77 mm[Hg] Dr. Rae Aguirre MD Work Phone: 2(944)345-267773 [place] [address] 02-14-2025 10:43-0400 Heart rate 84 /min Dr. Rae Aguirre MD Work Phone: 4(514)347-485002 [place] [address] 02-14-2025 10:43-0400 Respiratory rate 18 /min Dr. Rae Aguirre MD Work Phone: 4(137)694-729702 [place] [address] 02-14-2025 10:43-0400 SaO2% (BldA) [Mass fraction] 93 % Dr. Rae Aguirre MD Work Phone: 1(132)720-066473 [place] [address] 02-14-2025 10:43-0400 Systolic blood pressure 165 mm[Hg] Dr. Rae Aguirre MD Work Phone: 3(233)165-960138 [address] 02-12-2025 13:40-0400 Body height 167.[address] Rae Aguirre MD Work Phone: 4(629)166-773802 [place] [address] 02-12-2025 13:40-0400 Body mass index (BMI) [Ratio] 37.2 kg/m2 Dr. Rae Aguirre MD Work Phone: 6(343)495-937573 [place] [address] 02-12-2025 13:40-0400 Body temperature 97.1 [degF] Dr. Rae Aguirre MD Work Phone: 3(938)828-429673 [place] [address] 02-12-2025 13:40-0400 Body weight 104.[address] Rae Aguirre MD Work Phone: 9(434)857-976973 [place] [address] 02-12-2025 13:40-0400 Diastolic blood pressure 67 mm[Hg] Dr. Rae Aguirre MD Work Phone: [facility] 02-12-2025 13:40-0400 Heart rate 80 /min Dr. Rae Aguirre MD Work Phone: 7(289)083-673473 [place] [address] 02-12-2025 13:40-0400 Respiratory rate 18 /min Dr. Rae Aguirre MD Work Phone: 5(673)263-761602 [place] [address] 02-12-2025 13:40-0400 SaO2% (BldA) [Mass fraction] 96 % Dr. Rae Aguirre MD Work Phone: 3(402)950-345773 [place] [address] 02-12-2025 13:40-0400 Systolic blood pressure 114 mm[Hg] Dr. Rae Aguirre MD Work Phone: 9(794)345-036602 [place] [address] 01-24-2025 13:02-0400 Body height 167.[address] Rae Aguirre MD Work Phone: 0(160)286-126202 [place] [address] 01-24-2025 13:02-0400 Body mass index (BMI) [Ratio] 37.2 kg/m2 Dr. Rae Aguirre MD Work Phone: 8(648)806-028002 [place] [address] 01-24-2025 13:02-0400 Body temperature 97.6 [degF] Dr. Rae Aguirre MD Work Phone: 2(744)473-557702 [place] [address] 01-24-2025 13:02-0400 Body weight 104.[address] Rae Aguirre MD Work Phone: 5(121)769-648602 [place] [address] 01-24-2025 13:02-0400 Diastolic blood pressure 75 mm[Hg] Dr. Rae Aguirre MD Work Phone: 7(617)268-707002 [place] [address] 01-24-2025 13:02-0400 Heart rate 67 /min Dr. Rae Aguirre MD Work Phone: 7(361)853-806302 [place] [address] 01-24-2025 13:02-0400 Respiratory rate 16 /min Dr. Rae Aguirre MD Work Phone: 7(505)093-485902 [place] [address] 01-24-2025 13:02-0400 SaO2% (BldA) [Mass fraction] 95 % Dr. Rae Aguirre MD Work Phone: [facility] 01-24-2025 13:02-0400 Systolic blood pressure 138 mm[Hg] Dr. Rae Aguirre MD Work Phone: [facility] 01-17-2025 13:03-0400 Body mass index (BMI) [Ratio] 37.1 kg/m2 Dr. Rae Aguirre MD Work Phone: 2(246)014-986573 [place] [address] 01-17-2025 13:03-0400 Body temperature 98.5 [degF] Dr. Rae Aguirre MD Work Phone: 4(617)266-809702 [place] [address] 01-17-2025 13:03-0400 Body weight 104.[address] Rae Aguirre MD Work Phone: 5(512)601-783102 [place] [address] 01-17-2025 13:03-0400 Diastolic blood pressure 74 mm[Hg] Dr. Rae Aguirre MD Work Phone: 4(209)447-768302 [place] [address] 01-17-2025 13:03-0400 Heart rate 66 /min Dr. Rae Aguirre MD Work Phone: 1(383)927-024802 [place] [address] 01-17-2025 13:03-0400 Respiratory rate 16 /min Dr. Rae Aguirre MD Work Phone: 0(084)030-320902 [place] [address] 01-17-2025 13:03-0400 SaO2% (BldA) [Mass fraction] 96 % Dr. Rae Aguirre MD Work Phone: 2(454)984-586838 [address] 01-17-2025 13:03-0400 Systolic blood pressure 128 mm[Hg] Dr. Rae Aguirre MD Work Phone: 2(411)349-021602 [place] [address] 12-20-2024 10:01-0400 Body mass index (BMI) [Ratio] 37.1 kg/m2 Dr. Rae Aguirre MD Work Phone: 8(818)901-345773 [place] [address] 12-20-2024 10:01-0400 Body temperature 98.3 [degF] Dr. Rae Aguirre MD Work Phone: [facility] 12-20-2024 10:01-0400 Body weight 104.[address] Rae Aguirre MD Work Phone: [facility] 12-20-2024 10:01-0400 Diastolic blood pressure 68 mm[Hg] Dr. Rae Aguirre MD Work Phone: 5(627)376-787073 [place] [address] 12-20-2024 10:01-0400 Heart rate 72 /min Dr. Rae Aguirre MD Work Phone: 7(236)172-138273 [place] [address] 12-20-2024 10:01-0400 Respiratory rate 18 /min Dr. Rae Aguirre MD Work Phone: 8(110)175-550702 [place] [address] 12-20-2024 10:01-0400 SaO2% (BldA) [Mass fraction] 94 % Dr. Rae Aguirre MD Work Phone: 6(644)106-688638 [address] 12-20-2024 10:01-0400 Systolic blood pressure 112 mm[Hg] Dr. Rae Aguirre MD Work Phone: 7(008)007-425402 [place] [address] 11-22-2024 14:24-0400 Body height 167.[address] Rae Aguirre MD Work Phone: 7(328)477-481402 [place] [address] 11-22-2024 14:24-0400 Body mass index (BMI) [Ratio] 36.9 kg/m2 Dr. Rae Aguirre MD Work Phone: 2(838)384-269673 [place] [address] 11-22-2024 14:24-0400 Body temperature 98.1 [degF] Dr. aRe Aguirre MD Work Phone: 3(645)273-377602 [place] [address] 11-22-2024 14:24-0400 Body weight 103.[address] Rae Aguirre MD Work Phone: 0(748)211-266402 [place] [address] 11-22-2024 14:24-0400 Diastolic blood pressure 76 mm[Hg] Dr. Rae Aguirre MD Work Phone: 3(023)023-090502 [place] [address] 11-22-2024 14:24-0400 Heart rate 77 /min Dr. Rae Aguirre MD Work Phone: [facility] 11-22-2024 14:24-0400 Respiratory rate 18 /min Dr. Rae Aguirre MD Work Phone: 3(410)228-855673 [place] [address] 11-22-2024 14:24-0400 SaO2% (BldA) [Mass fraction] 93 % Dr. Rae Aguirre MD Work Phone: 9(556)695-866773 [place] [address] 11-22-2024 14:24-0400 Systolic blood pressure 152 mm[Hg] Dr. Rae Aguirre MD Work Phone: 0(708)348-935102 [place] [address] 11-05-2024 22:00-0500 Body temperature 98.2 [degF] Dr. Rae Aguirre MD Work Phone: 8(272)369-812602 [place] [address] 11-05-2024 22:00-0500 Diastolic blood pressure 57 mm[Hg] Dr. Rae Aguirre MD Work Phone: 4(395)270-402202 [place] [address] 11-05-2024 22:00-0500 Heart rate 75 /min Dr. Rae Aguirre MD Work Phone: 9(391)134-467902 [place] [address] 11-05-2024 22:00-0500 Respiratory rate 18 /min Dr. Rae Aguirre MD Work Phone: 9(293)006-591502 [place] [address] 11-05-2024 22:00-0500 SaO2% (BldA) [Mass fraction] 96 % Dr. Rae Aguirre MD Work Phone: 3(051)787-669302 [place] [address] 11-05-2024 22:00-0500 Systolic blood pressure 141 mm[Hg] Dr. Rae Aguirre MD Work Phone: 7(330)239-832302 [place] [address] 11-05-2024 18:13-0500 Body height 167.[address] Rae Aguirre MD Work Phone: 5(115)719-432902 [place] [address] 11-05-2024 18:13-0500 Body mass index (BMI) [Ratio] 35.9 kg/m2 Dr. Rae Aguirre MD Work Phone: 0(052)314-131702 [place] [address] 11-05-2024 18:13-0500 Body weight 101.[address] Rae Aguirre MD Work Phone: 8(116)454-886802 [place] [address] 10-25-2024 12:52-0500 Body mass index (BMI) [Ratio] 36.3 kg/m2 Dr. Rae Aguirre MD Work Phone: 5(058)789-772502 [place] [address] 10-25-2024 12:52-0500 Body temperature 97.6 [degF] Dr. Rae Aguirre MD Work Phone: 4(286)110-745302 [place] [address] 10-25-2024 12:52-0500 Body weight 102.[address] Rae Aguirre MD Work Phone: 8(265)624-852302 [place] [address] 10-25-2024 12:52-0500 Diastolic blood pressure 49 mm[Hg] Dr. Rae Aguirre MD Work Phone: 5(622)613-747402 [place] [address] 10-25-2024 12:52-0500 Heart rate 66 /min Dr. Rae Aguirre MD Work Phone: 0(433)437-351702 [place] [address] 10-25-2024 12:52-0500 Respiratory rate 16 /min Dr. Rae Aguirre MD Work Phone: 7(395)611-677602 [place] [address] 10-25-2024 12:52-0500 SaO2% (BldA) [Mass fraction] 96 % Dr. Rae Aguirre MD Work Phone: 3(896)454-108802 [place] [address] 10-25-2024 12:52-0500 Systolic blood pressure 105 mm[Hg] Dr. Rae Aguirre MD Work Phone: 8(347)749-608802 [place] [address] 10-18-2024 12:49-0500 Body mass index (BMI) [Ratio] 36.6 kg/m2 Dr. Rae Aguirre MD Work Phone: 5(367)973-267502 [place] [address] 10-18-2024 12:49-0500 Body temperature 97.6 [degF] Dr. Rae Aguirre MD Work Phone: 0(073)462-528302 [place] [address] 10-18-2024 12:49-0500 Body weight 102.[address] Rae Aguirre MD Work Phone: [facility] 10-18-2024 12:49-0500 Diastolic blood pressure 81 mm[Hg] Dr. Rae Aguirre MD Work Phone: [facility] 10-18-2024 12:49-0500 Heart rate 61 /min Dr. Rae Aguirre MD Work Phone: [facility] 10-18-2024 12:49-0500 Respiratory rate 16 /min Dr. Rae Aguirre MD Work Phone: [facility] 10-18-2024 12:49-0500 SaO2% (BldA) [Mass fraction] 94 % Dr. Rae Aguirre MD Work Phone: [facility] 10-18-2024 12:49-0500 Systolic blood pressure 129 mm[Hg] Dr. Rae Aguirre MD Work Phone: 5(591)643-125073 [place] [address] 09-20-2024 13:40-0500 Body mass index (BMI) [Ratio] 36.5 kg/m2 Dr. Rea Aguirre MD Work Phone: 5(521)749-668173 [place] [address] 09-20-2024 13:40-0500 Body temperature 98.3 [degF] Dr. Rae Aguirre MD Work Phone: [facility] 09-20-2024 13:40-0500 Body weight 102.[address] Rae Aguirre MD Work Phone: [facility] 09-20-2024 13:40-0500 Diastolic blood pressure 82 mm[Hg] Dr. Rae Aguirre MD Work Phone: [facility] 09-20-2024 13:40-0500 Heart rate 84 /min Dr. Rae Augirre MD Work Phone: [facility] 09-20-2024 13:40-0500 Respiratory rate 18 /min Dr. Rae Aguirre MD Work Phone: 3(214)073-483038 [address] 09-20-2024 13:40-0500 SaO2% (BldA) [Mass fraction] 97 % Dr. Rae Aguirre MD Work Phone: 6(276)153-983273 [place] [address] 09-20-2024 13:40-0500 Systolic blood pressure 138 mm[Hg] Dr. Rae Aguirre MD Work Phone: 9(971)086-181202 [place] [address] 08-23-2024 09:59-0500 Body mass index (BMI) [Ratio] 36.6 kg/m2 Dr. Rae Aguirre MD Work Phone: 2(373)881-131802 [place] [address] 08-23-2024 09:59-0500 Body temperature 98.8 [degF] Dr. Rae Aguirre MD Work Phone: 1(589)525-659102 [place] [address] 08-23-2024 09:59-0500 Body weight 102.[address] Rae Aguirre MD Work Phone: 1(947)414-754202 [place] [address] 08-23-2024 09:59-0500 Diastolic blood pressure 71 mm[Hg] Dr. Rae Aguirre MD Work Phone: 6(879)359-540302 [place] [address] 08-23-2024 09:59-0500 Heart rate 80 /min Dr. Rae Aguirre MD Work Phone: 4(884)634-167502 [place] [address] 08-23-2024 09:59-0500 Respiratory rate 18 /min Dr. Rae Aguirre MD Work Phone: 5(515)484-294702 [place] [address] 08-23-2024 09:59-0500 SaO2% (BldA) [Mass fraction] 94 % Dr. Rae Aguirre MD Work Phone: 3(970)789-289002 [place] [address] 08-23-2024 09:59-0500 Systolic blood pressure 119 mm[Hg] Dr. Rae Aguirre MD Work Phone: 7(705)332-327902 [place] [address] 07-26-2024 13:33-0500 Body mass index (BMI) [Ratio] 36.3 kg/m2 Dr. Rae Aguirre MD Work Phone: 6(953)842-724502 [place] [address] 07-26-2024 13:33-0500 Body temperature 98.3 [degF] Dr. Rae Aguirre MD Work Phone: [facility] 07-26-2024 13:33-0500 Body weight 102.[address] Rae Aguirre MD Work Phone: [facility] 07-26-2024 13:33-0500 Diastolic blood pressure 64 mm[Hg] Dr. Rae Aguirre MD Work Phone: 3(053)412-321673 [place] [address] 07-26-2024 13:33-0500 Heart rate 69 /min Dr. Rae Aguirre MD Work Phone: 0(084)701-857673 [place] [address] 07-26-2024 13:33-0500 Respiratory rate 18 /min Dr. Rae Aguirre MD Work Phone: 0(923)966-937173 [place] [address] 07-26-2024 13:33-0500 SaO2% (BldA) [Mass fraction] 95 % Dr. Rae Aguirre MD Work Phone: [facility] 07-26-2024 13:33-0500 Systolic blood pressure 123 mm[Hg] Dr. Rae Aguirre MD Work Phone: [facility] 11-29-2023 13:49-0400 Body height 167.[address] Adolfo Aguirre Work Phone: 1(230)777-718273 [place] [address] 11-29-2023 13:49-0400 Body mass index (BMI) [Ratio] 36.5 kg/m2 Dr. Adolfo Aguirre Work Phone: [facility] 11-29-2023 13:49-0400 Body temperature 98 [degF] Dr. Adolfo Aguirre Work Phone: [facility] 11-29-2023 13:49-0400 Body weight 102.[address] Adolfo Aguirre Work Phone: [facility] 11-29-2023 13:49-0400 Diastolic blood pressure 68 mm[Hg] Dr. Adolfo Augirre Work Phone: [facility] 11-29-2023 13:49-0400 Heart rate 70 /min Dr. Adolfo Aguirre Work Phone: [facility] 11-29-2023 13:49-0400 Respiratory rate 18 /min Dr. Adolfo Aguirre Work Phone: [facility] 11-29-2023 13:49-0400 SaO2% (BldA) [Mass fraction] 93 % Dr. Adolfo Aguirre Work Phone: [facility] 11-29-2023 13:49-0400 Systolic blood pressure 117 mm[Hg] Dr. Adolfo Aguirre Work Phone: [facility] 10-25-2023 12:01-0500 Body mass index (BMI) [Ratio] 36.4 kg/m2 Dr. Adolfo Aguirre Work Phone: [facility] 10-25-2023 12:01-0500 Body temperature 98.2 [degF] Dr. Adolfo Aguirre Work Phone: [facility] 10-25-2023 12:01-0500 Body weight 102.[address] Adolfo Aguirre Work Phone: [facility] 10-25-2023 12:01-0500 Diastolic blood pressure 79 mm[Hg] Dr. Adolfo Aguirre Work Phone: [facility] 10-25-2023 12:01-0500 Heart rate 78 /min Dr. Adolfo Aguirre Work Phone: [facility] 10-25-2023 12:01-0500 Respiratory rate 18 /min Dr. Adolfo Aguirre Work Phone: [facility] 10-25-2023 12:01-0500 SaO2% (BldA) [Mass fraction] 95 % Dr. Adolfo Aguirre Work Phone: [facility] 10-25-2023 12:01-0500 Systolic blood pressure 150 mm[Hg] Dr. Adolfo Aguirre Work Phone: [facility] 09-27-2023 11:26-0500 Body mass index (BMI) [Ratio] 37.2 kg/m2 Dr. Adolfo Aguirre Work Phone: [facility] 09-27-2023 11:26-0500 Body temperature 98.2 [degF] Dr. Adolfo Aguirre Work Phone: 5(169)556-435002 [place] [address] 09-27-2023 11:26-0500 Body weight 104.[address] Adolfo Aguirre Work Phone: 9(847)200-992002 [place] [address] 09-27-2023 11:26-0500 Diastolic blood pressure 70 mm[Hg] Dr. Adolfo Aguirre Work Phone: 2(626)592-030802 [place] [address] 09-27-2023 11:26-0500 Heart rate 72 /min Dr. Adolfo Aguirre Work Phone: 6(769)313-321302 [place] [address] 09-27-2023 11:26-0500 Respiratory rate 18 /min Dr. Adolfo Aguirre Work Phone: 0(429)756-870602 [place] [address] 09-27-2023 11:26-0500 SaO2% (BldA) [Mass fraction] 93 % Dr. Adolfo Aguirre Work Phone: 7(863)796-854902 [place] [address] 09-27-2023 11:26-0500 Systolic blood pressure 111 mm[Hg] Dr. Adolfo Aguirre Work Phone: 0(511)920-328873 [place] [address] 08-30-2023 12:56-0500 Body mass index (BMI) [Ratio] 36.8 kg/m2 Dr. Adolfo Aguirre Work Phone: [facility] 08-30-2023 12:56-0500 Body temperature 97.8 [degF] Dr. Adolfo Aguirre Work Phone: 8(358)591-986402 [place] [address] 08-30-2023 12:56-0500 Body weight 103.[address] Adolfo Aguirre Work Phone: 7(823)555-722738 [address] 08-30-2023 12:56-0500 Diastolic blood pressure 98 mm[Hg] Dr. Adolfo Aguirre Work Phone: [facility] 08-30-2023 12:56-0500 Heart rate 79 /min Dr. Adolfo Aguirre Work Phone: [facility] 08-30-2023 12:56-0500 Respiratory rate 18 /min Dr. Adolfo Aguirre Work Phone: [facility] 08-30-2023 12:56-0500 SaO2% (BldA) [Mass fraction] 95 % Dr. Adolfo Aguirre Work Phone: [facility] 08-30-2023 12:56-0500 Systolic blood pressure 150 mm[Hg] Dr. Adolfo Aguirre Work Phone: 8(653)621-054373 [place] [address] 07-05-2023 10:27-0400 Body height 167.[address] Adolfo Aguirre Work Phone: 0(207)574-313773 [place] [address] 07-05-2023 10:27-0400 Body mass index (BMI) [Ratio] 36.8 kg/m2 Dr. Adolfo Aguirre Work Phone: 7(550)626-505738 [address] 07-05-2023 10:27-0400 Body temperature 98.2 [degF] Dr. Adolfo Aguirre Work Phone: [facility] 07-05-2023 10:27-0400 Body weight 103.[address] Adolfo Aguirre Work Phone: [facility] 07-05-2023 10:27-0400 Diastolic blood pressure 65 mm[Hg] Dr. Adolfo Aguirre Work Phone: 3(881)156-479573 [place] [address] 07-05-2023 10:27-0400 Heart rate 71 /min Dr. Adolfo Aguirre Work Phone: [facility] 07-05-2023 10:27-0400 Respiratory rate 18 /min Dr. Adolfo Aguirre Work Phone: [facility] 07-05-2023 10:27-0400 SaO2% (BldA) [Mass fraction] 95 % Dr. Adolfo Aguirre Work Phone: [facility] 07-05-2023 10:27-0400 Systolic blood pressure 105 mm[Hg] Dr. Adolfo Aguirre Work Phone: [facility] 07-05-2023 10:03-0400 Body mass index (BMI) [Ratio] 36.8 kg/m2 Dr. Adolfo Aguirre Work Phone: 0(526)486-665102 [place] [address] 07-05-2023 10:03-0400 Body temperature 98.2 [degF] Dr. Adolfo Aguirre Work Phone: 4(282)431-065002 [place] [address] 07-05-2023 10:03-0400 Body weight 103.[address] Adolfo Aguirre Work Phone: 4(679)184-499102 [place] [address] 07-05-2023 10:03-0400 Diastolic blood pressure 65 mm[Hg] Dr. Adolfo Aguirre Work Phone: 5(765)684-557002 [place] [address] 07-05-2023 10:03-0400 Heart rate 71 /min Dr. Adolfo Aguirre Work Phone: 8(208)724-261602 [place] [address] 07-05-2023 10:03-0400 Respiratory rate 18 /min Dr. Adolfo Aguirre Work Phone: 3(911)064-164002 [place] [address] 07-05-2023 10:03-0400 SaO2% (BldA) [Mass fraction] 95 % Dr. Adolfo Aguirre Work Phone: 1(939)793-841173 [place] [address] 07-05-2023 10:03-0400 Systolic blood pressure 105 mm[Hg] Dr. Adolfo Aguirre Work Phone: 3(909)686-444502 [place] [address] 06-28-2023 13:24-0400 Body mass index (BMI) [Ratio] 36.7 kg/m2 Dr. Adolfo Aguirre Work Phone: 9(394)491-964002 [place] [address] 06-28-2023 13:24-0400 Body temperature 98.3 [degF] Dr. Adolfo Aguirre Work Phone: [facility] 06-28-2023 13:24-0400 Body weight 103.[address] Adolfo Aguirre Work Phone: [facility] 06-28-2023 13:24-0400 Diastolic blood pressure 67 mm[Hg] Dr. Adolfo Aguirre Work Phone: [facility] 06-28-2023 13:24-0400 Heart rate 69 /min Dr. Adolfo Aguirre Work Phone: [facility] 06-28-2023 13:24-0400 Respiratory rate 18 /min Dr. Adolfo Aguirre Work Phone: [facility] 06-28-2023 13:24-0400 SaO2% (BldA) [Mass fraction] 94 % Dr. Adolfo Aguirre Work Phone: [facility] 06-28-2023 13:24-0400 Systolic blood pressure 114 mm[Hg] Dr. Adolfo Aguirre Work Phone: [facility] 05-31-2023 13:27-0400 Body height 167.[address] Adolfo Aguirre Work Phone: [facility] 05-31-2023 13:27-0400 Body mass index (BMI) [Ratio] 36.8 kg/m2 Dr. Adolfo Aguirre Work Phone: [facility] 05-31-2023 13:27-0400 Body temperature 98.2 [degF] Dr. Adolfo Aguirre Work Phone: [facility] 05-31-2023 13:27-0400 Body weight 103.[address] Adolfo Aguirre Work Phone: [facility] 05-31-2023 13:27-0400 Diastolic blood pressure 62 mm[Hg] Dr. Adolfo Aguirre Work Phone: [facility] 05-31-2023 13:27-0400 Heart rate 62 /min Dr. Adolfo Aguirre Work Phone: [facility] 05-31-2023 13:27-0400 Respiratory rate 15 /min Dr. Adolfo Aguirre Work Phone: [facility] 05-31-2023 13:27-0400 SaO2% (BldA) [Mass fraction] 95 % Dr. Adolfo Aguirre Work Phone: [facility] 05-31-2023 13:27-0400 Systolic blood pressure 105 mm[Hg] Dr. Adolfo Aguirre Work Phone: [facility] 05-03-2023 10:47-0400 Body mass index (BMI) [Ratio] 39 kg/m2 Dr. Adolfo Aguirre Work Phone: 9(518)467-304438 [address] 05-03-2023 10:47-0400 Body temperature 97.3 [degF] Dr. Adolfo Aguirre Work Phone: 8(910)013-816873 [place] [address] 05-03-2023 10:47-0400 Body weight 109.[address] Adolfo Aguirre Work Phone: [facility] 05-03-2023 10:47-0400 Diastolic blood pressure 62 mm[Hg] Dr. Adolfo Aguirre Work Phone: [facility] 05-03-2023 10:47-0400 Heart rate 63 /min Dr. Adolfo Aguirre Work Phone: [facility] 05-03-2023 10:47-0400 Respiratory rate 16 /min Dr. Adolfo Aguirre Work Phone: [facility] 05-03-2023 10:47-0400 SaO2% (BldA) [Mass fraction] 97 % Dr. Adolfo Aguirre Work Phone: [facility] 05-03-2023 10:47-0400 Systolic blood pressure 110 mm[Hg] Dr. Adolfo Aguirre Work Phone: [facility] 04-05-2023 14:53-0400 Body mass index (BMI) [Ratio] 37.4 kg/m2 Dr. Adolfo Aguirre Work Phone: [facility] 04-05-2023 14:53-0400 Body temperature 97.2 [degF] Dr. Adolfo Aguirre Work Phone: [facility] 04-05-2023 14:53-0400 Body weight 105.[address] Adolfo Aguirre Work Phone: [facility] 04-05-2023 14:53-0400 Diastolic blood pressure 72 mm[Hg] Dr. Adolfo Aguirre Work Phone: [facility] 04-05-2023 14:53-0400 Heart rate 71 /min Dr. Adolfo Aguirre Work Phone: [facility] 04-05-2023 14:53-0400 Respiratory rate 16 /min Dr. Adolfo Aguirre Work Phone: [facility] 04-05-2023 14:53-0400 SaO2% (BldA) [Mass fraction] 93 % Dr. Adolfo Aguirre Work Phone: [facility] 04-05-2023 14:53-0400 Systolic blood pressure 114 mm[Hg] Dr. Adolfo Aguirre Work Phone: [facility] 03-08-2023 15:06-0400 Body mass index (BMI) [Ratio] 38.5 kg/m2 Dr. Adolfo Aguirre Work Phone: [facility] 03-08-2023 15:06-0400 Body temperature 97.3 [degF] Dr. Adolfo Aguirre Work Phone: [facility] 03-08-2023 15:06-0400 Body weight 108.[address] Adolfo Aguirre Work Phone: [facility] 03-08-2023 15:06-0400 Diastolic blood pressure 71 mm[Hg] Dr. Adolfo Aguirre Work Phone: [facility] 03-08-2023 15:06-0400 Heart rate 80 /min Dr. Adolfo Aguirre Work Phone: [facility] 03-08-2023 15:06-0400 Respiratory rate 18 /min Dr. Adolfo Aguirre Work Phone: [facility] 03-08-2023 15:06-0400 SaO2% (BldA) [Mass fraction] 95 % Dr. Adolfo Aguirre Work Phone: [facility] 03-08-2023 15:06-0400 Systolic blood pressure 139 mm[Hg] Dr. Adolfo Aguirre Work Phone: 5(776)963-882573 [place] [address] 02-09-2023 13:26-0400 Body mass index (BMI) [Ratio] 37.3 kg/m2 Dr. Adolfo Aguirre Work Phone: 9(705)598-764138 [address] 02-09-2023 13:26-0400 Body temperature 97 [degF] Dr. Adolfo Aguirre Work Phone: [facility] 02-09-2023 13:26-0400 Body weight 104.[address] Adolfo Aguirre Work Phone: 9(170)029-641438 [address] 02-09-2023 13:26-0400 Diastolic blood pressure 76 mm[Hg] Dr. Adolfo Aguirre Work Phone: [facility] 02-09-2023 13:26-0400 Heart rate 74 /min Dr. Adolfo Aguirre Work Phone: [facility] 02-09-2023 13:26-0400 Respiratory rate 16 /min Dr. Adolfo Aguirre Work Phone: [facility] 02-09-2023 13:26-0400 SaO2% (BldA) [Mass fraction] 95 % Dr. Adolfo Aguirre Work Phone: [facility] 02-09-2023 13:26-0400 Systolic blood pressure 123 mm[Hg] Dr. Adolfo Aguirre Work Phone: [facility] 01-11-2023 10:54-0400 Body mass index (BMI) [Ratio] 37.9 kg/m2 Dr. Adolfo Aguirre Work Phone: [facility] 11-30-2022 10:44-0400 Body height 167.[address] Adolfo Aguirre Work Phone: [facility] 11-30-2022 10:39-0400 Body mass index (BMI) [Ratio] 38 kg/m2 Dr. Adolfo Aguirre Work Phone: [facility] 11-30-2022 10:39-0400 Body temperature 98.3 [degF] Dr. Adolfo Aguirre Work Phone: [facility] 11-30-2022 10:39-0400 Body weight 107.[address] Adolfo Aguirre Work Phone: [facility] 11-30-2022 10:39-0400 Diastolic blood pressure 55 mm[Hg] Dr. Adolfo Aguirre Work Phone: [facility] 11-30-2022 10:39-0400 Heart rate 83 /min Dr. Adolfo Aguirre Work Phone: [facility] 11-30-2022 10:39-0400 Respiratory rate 17 /min Dr. Adolfo Aguirre Work Phone: [facility] 11-30-2022 10:39-0400 SaO2% (BldA) [Mass fraction] 94 % Dr. Adolfo Aguirre Work Phone: [facility] 11-30-2022 10:39-0400 Systolic blood pressure 110 mm[Hg] Dr. Adolfo Aguirre Work Phone: [facility] 11-02-2022 10:58-0500 Body mass index (BMI) [Ratio] 36.8 kg/m2 Dr. Adolfo Aguirre Work Phone: [facility] 11-02-2022 10:58-0500 Body temperature 98.6 [degF] Dr. Adolfo Aguirre Work Phone: [facility] 11-02-2022 10:58-0500 Body weight 103.[address] Adolfo Aguirre Work Phone: [facility] 11-02-2022 10:58-0500 Diastolic blood pressure 61 mm[Hg] Dr. Adolfo Aguirre Work Phone: [facility] 11-02-2022 10:58-0500 Heart rate 77 /min Dr. Adolfo Aguirre Work Phone: [facility] 11-02-2022 10:58-0500 Respiratory rate 17 /min Dr. Adolfo Aguirre Work Phone: [facility] 11-02-2022 10:58-0500 SaO2% (BldA) [Mass fraction] 94 % Dr. Adolfo Aguirre Work Phone: [facility] 11-02-2022 10:58-0500 Systolic blood pressure 117 mm[Hg] Dr. Adolfo Aguirre Work Phone: [facility] 10-26-2022 10:34-0500 Body mass index (BMI) [Ratio] 37.3 kg/m2 Dr. Adolfo Aguirre Work Phone: [facility] 10-26-2022 10:34-0500 Body weight 104.[address] Adolfo Aguirre Work Phone: [facility] 10-26-2022 10:23-0500 Body mass index (BMI) [Ratio] 37.3 kg/m2 Dr. Adolfo Aguirre Work Phone: [facility] 10-26-2022 10:23-0500 Body temperature 98.7 [degF] Dr. Adolfo Aguirre Work Phone: [facility] 10-26-2022 10:23-0500 Body weight 104.[address] Adolfo Aguirre Work Phone: [facility] 10-26-2022 10:23-0500 Diastolic blood pressure 62 mm[Hg] Dr. Adolfo Aguirre Work Phone: [facility] 10-26-2022 10:23-0500 Heart rate 72 /min Dr. Adolfo Aguirre Work Phone: [facility] 10-26-2022 10:23-0500 Respiratory rate 17 /min Dr. Adolfo Aguirre Work Phone: [facility] 10-26-2022 10:23-0500 SaO2% (BldA) [Mass fraction] 96 % Dr. Adolfo Aguirre Work Phone: [facility] 10-26-2022 10:23-0500 Systolic blood pressure 112 mm[Hg] Dr. Adolfo Aguirre Work Phone: 4(003)282-650773 [place] [address] 09-28-2022 10:19-0500 Body mass index (BMI) [Ratio] 0.4 kg/m2 Dr. Adolfo Aguirre Work Phone: 1(816)063-557473 [place] [address] 09-28-2022 10:19-0500 Body temperature 98.6 [degF] Dr. Adolfo Aguirre Work Phone: 5(139)915-628038 [address] 09-28-2022 10:19-0500 Body weight 105.[address] Adolfo Aguirre Work Phone: [facility] 09-28-2022 10:19-0500 Diastolic blood pressure 63 mm[Hg] Dr. Adolfo Aguirre Work Phone: [facility] 09-28-2022 10:19-0500 Heart rate 73 /min Dr. Adolfo Aguirre Work Phone: [facility] 09-28-2022 10:19-0500 Respiratory rate 16 /min Dr. Adolfo Aguirre Work Phone: [facility] 09-28-2022 10:19-0500 SaO2% (BldA) [Mass fraction] 94 % Dr. Adolfo Aguirre Work Phone: [facility] 09-28-2022 10:19-0500 Systolic blood pressure 114 mm[Hg] Dr. Adolfo Aguirre Work Phone: [facility] 08-31-2022 09:56-0500 Body height 167.[address] Adolfo Aguirre Work Phone: [facility] Work Phone: 08-31-2022 09:56-0500 Body mass index (BMI) [Ratio] 37.4 kg/m2 Dr. Adolfo Aguirre Work Phone: [facility] Work Phone: 08-31-2022 09:56-0500 Body weight 105.[address] Adolfo Aguirre Work Phone: [facility] Work Phone: 08-31-2022 09:08-0500 Body mass index (BMI) [Ratio] 37.4 kg/m2 Dr. Adolfo Aguirre Work Phone: [facility] 08-31-2022 09:08-0500 Body temperature 98.1 [degF] Dr. Adolfo Aguirre Work Phone: [facility] 08-31-2022 09:08-0500 Body weight 105.[address] Adolfo Aguirre Work Phone: [facility] 08-31-2022 09:08-0500 Diastolic blood pressure 82 mm[Hg] Dr. Adolfo Aguirre Work Phone: [facility] 08-31-2022 09:08-0500 Heart rate 66 /min Dr. Adolfo Aguirre Work Phone: [facility] 08-31-2022 09:08-0500 Respiratory rate 16 /min Dr. Adolfo Aguirre Work Phone: [facility] 08-31-2022 09:08-0500 SaO2% (BldA) [Mass fraction] 97 % Dr. Adolfo Aguirre Work Phone: [facility] 08-31-2022 09:08-0500 Systolic blood pressure 158 mm[Hg] Dr. Adolfo Aguirre Work Phone: [facility] 08-03-2022 09:51-0500 Body mass index (BMI) [Ratio] 37.8 kg/m2 Dr. Adolfo Aguirre Work Phone: [facility] Work Phone: 08-03-2022 09:51-0500 Body temperature 98.2 [degF] Dr. Adolfo Aguirre Work Phone: [facility] Work Phone: 08-03-2022 09:51-0500 Body weight 106.[address] Adolfo Aguirre Work Phone: [facility] Work Phone: 08-03-2022 09:51-0500 Diastolic blood pressure 66 mm[Hg] Dr. Adolfo Aguirre Work Phone: [facility] Work Phone: 08-03-2022 09:51-0500 Heart rate 70 /min Dr. Adolfo Aguirre Work Phone: [facility] Work Phone: 08-03-2022 09:51-0500 Respiratory rate 16 /min Dr. Adolfo Aguirre Work Phone: [facility] Work Phone: 08-03-2022 09:51-0500 SaO2% (BldA) [Mass fraction] 93 % Dr. Adolfo Aguirre Work Phone: [facility] Work Phone: 08-03-2022 09:51-0500 Systolic blood pressure 119 mm[Hg] Dr. Adolfo Aguirre Work Phone: [facility] Work Phone: 07-05-2022 10:10-0400 Body mass index (BMI) [Ratio] 38.7 kg/m2 Dr. Adolfo Aguirre Work Phone: [facility] Work Phone: 07-05-2022 10:10-0400 Body temperature 97.6 [degF] Dr. Adolfo Aguirer Work Phone: [facility] Work Phone: 07-05-2022 10:10-0400 Body weight 109.[address] Adolfo Aguirre Work Phone: [facility] Work Phone: 07-05-2022 10:10-0400 Diastolic blood pressure 67 mm[Hg] Dr. Adolfo Aguirre Work Phone: [facility] Work Phone: 07-05-2022 10:10-0400 Heart rate 70 /min Dr. Adolfo Aguirre Work Phone: [facility] Work Phone: 07-05-2022 10:10-0400 Respiratory rate 16 /min Dr. Adolfo Aguirre Work Phone: [facility] Work Phone: 07-05-2022 10:10-0400 SaO2% (BldA) [Mass fraction] 95 % Dr. Adolfo Aguirre Work Phone: [facility] Work Phone: 07-05-2022 10:10-0400 Systolic blood pressure 140 mm[Hg] Dr. Adolfo Aguirre Work Phone: [facility] Work Phone: 06-07-2022 08:47-0400 Body mass index (BMI) [Ratio] 38.9 kg/m2 Dr. Adolfo Aguirre Work Phone: [facility] Work Phone: 06-07-2022 08:47-0400 Body temperature 98.6 [degF] Dr. Adolfo Aguirre Work Phone: [facility] Work Phone: 06-07-2022 08:47-0400 Body weight 109.[address] Adolfo Aguirre Work Phone: [facility] Work Phone: 06-07-2022 08:47-0400 Diastolic blood pressure 63 mm[Hg] Dr. Adolfo Aguirre Work Phone: [facility] Work Phone: 06-07-2022 08:47-0400 Heart rate 71 /min Dr. Adolfo Aguirre Work Phone: [facility] Work Phone: 06-07-2022 08:47-0400 Respiratory rate 16 /min Dr. Adolfo Aguirre Work Phone: [facility] Work Phone: 06-07-2022 08:47-0400 SaO2% (BldA) [Mass fraction] 95 % Dr. Adolfo Aguirre Work Phone: [facility] Work Phone: 06-07-2022 08:47-0400 Systolic blood pressure 123 mm[Hg] Dr. Adolfo Aguirre Work Phone: [facility] Work Phone: 05-31-2022 10:31-0400 Body mass index (BMI) [Ratio] 38.5 kg/m2 Dr. Adolfo Aguirre Work Phone: [facility] Work Phone: 05-31-2022 10:31-0400 Body temperature 98.2 [degF] Dr. Adolfo Aguirre Work Phone: [facility] Work Phone: 05-31-2022 10:31-0400 Body weight 108.[address] Adolfo Aguirre Work Phone: [facility] Work Phone: 05-31-2022 10:31-0400 Diastolic blood pressure 75 mm[Hg] Dr. Adolfo Aguirre Work Phone: [facility] Work Phone: 05-31-2022 10:31-0400 Heart rate 77 /min Dr. Adolfo Aguirre Work Phone: [facility] Work Phone: 05-31-2022 10:31-0400 Respiratory rate 16 /min Dr. Adolfo Aguirre Work Phone: [facility] Work Phone: 05-31-2022 10:31-0400 SaO2% (BldA) [Mass fraction] 94 % Dr. Adolfo Aguirre Work Phone: [facility] Work Phone: 05-31-2022 10:31-0400 Systolic blood pressure 151 mm[Hg] Dr. Adolfo Aguirre Work Phone: [facility] Work Phone: 04-26-2022 15:02-0400 Body height 167.[address] Adolfo Aguirre Work Phone: [facility] Work Phone: 04-26-2022 15:02-0400 Body mass index (BMI) [Ratio] 37.8 kg/m2 Dr. Adolfo Aguirre Work Phone: [facility] Work Phone: 04-26-2022 15:02-0400 Body temperature 98.8 [degF] Dr. Adolfo Aguirre Work Phone: [facility] Work Phone: 04-26-2022 15:02-0400 Body weight 106.[address] Adolfo Aguirre Work Phone: [facility] Work Phone: 04-26-2022 15:02-0400 Diastolic blood pressure 80 mm[Hg] Dr. Adolfo Aguirre Work Phone: [facility] Work Phone: 04-26-2022 15:02-0400 Heart rate 73 /min Dr. Adolfo Aguirre Work Phone: [facility] Work Phone: 04-26-2022 15:02-0400 Respiratory rate 16 /min Dr. Adolfo Aguirre Work Phone: [facility] Work Phone: 04-26-2022 15:02-0400 SaO2% (BldA) [Mass fraction] 95 % Dr. Adolfo Aguirre Work Phone: [facility] Work Phone: 04-26-2022 15:02-0400 Systolic blood pressure 133 mm[Hg] Dr. Adolfo Aguirre Work Phone: [facility] Work Phone: 04-19-2022 11:31-0400 Body mass index (BMI) [Ratio] 37.3 kg/m2 Dr. Adolfo Aguirre Work Phone: [facility] Work Phone: 04-19-2022 11:31-0400 Body temperature 98.3 [degF] Dr. Adolfo Aguirre Work Phone: [facility] Work Phone: 04-19-2022 11:31-0400 Body weight 105.[address] Adolfo Aguirre Work Phone: [facility] Work Phone: 04-19-2022 11:31-0400 Diastolic blood pressure 70 mm[Hg] Dr. Adolfo Aguirre Work Phone: [facility] Work Phone: 04-19-2022 11:31-0400 Heart rate 70 /min Dr. Adolfo Aguirre Work Phone: [facility] Work Phone: 04-19-2022 11:31-0400 Respiratory rate 15 /min Dr. Adolfo Aguirre Work Phone: [facility] Work Phone: 04-19-2022 11:31-0400 SaO2% (BldA) [Mass fraction] 95 % Dr. Adolfo Aguirre Work Phone: [facility] Work Phone: 04-19-2022 11:31-0400 Systolic blood pressure 174 mm[Hg] Dr. Adolfo Aguirre Work Phone: [facility] Work Phone: 03-23-2022 13:17-0400 Body mass index (BMI) [Ratio] 37.5 kg/m2 Dr. Adolfo Aguirre Work Phone: [facility] Work Phone: 03-23-2022 13:17-0400 Body temperature 98.3 [degF] Dr. Adolfo Aguirre Work Phone: [facility] Work Phone: 03-23-2022 13:17-0400 Body weight 105.[address] Adolfo Aguirre Work Phone: [facility] Work Phone: 03-23-2022 13:17-0400 Diastolic blood pressure 71 mm[Hg] Dr. Adolfo Aguirre Work Phone: [facility] Work Phone: 03-23-2022 13:17-0400 Heart rate 71 /min Dr. Adolfo Aguirre Work Phone: [facility] Work Phone: 03-23-2022 13:17-0400 Respiratory rate 18 /min Dr. Adolfo Aguirre Work Phone: [facility] Work Phone: 03-23-2022 13:17-0400 SaO2% (BldA) [Mass fraction] 93 % Dr. Adolfo Aguirre Work Phone: [facility] System Work Phone: 03-23-2022 13:17-0400 Systolic blood pressure 111 mm[Hg] Dr. Adolfo Aguirre Work Phone: [facility] Work Phone: 03-16-2022 16:06-0400 Body mass index (BMI) [Ratio] 37.4 kg/m2 Dr. Adolfo Aguirre Work Phone: [facility] Work Phone: 03-16-2022 16:06-0400 Body temperature 98.2 [degF] Dr. Adolfo Aguirre Work Phone: [facility] Work Phone: 03-16-2022 16:06-0400 Body weight 105.[address] Adolfo Aguirre Work Phone: [facility] Work Phone: 03-16-2022 16:06-0400 Diastolic blood pressure 78 mm[Hg] Dr. Adolfo Aguirre Work Phone: [facility] Work Phone: 03-16-2022 16:06-0400 Heart rate 68 /min Dr. Adolfo Aguirre Work Phone: [facility] Work Phone: 03-16-2022 16:06-0400 Respiratory rate 15 /min Dr. Adolfo Aguirre Work Phone: [facility] Work Phone: 03-16-2022 16:06-0400 SaO2% (BldA) [Mass fraction] 96 % Dr. Adolfo Aguirre Work Phone: [facility] Work Phone: 03-16-2022 16:06-0400 Systolic blood pressure 162 mm[Hg] Dr. Adolfo Aguirre Work Phone: [facility] Work Phone: 03-01-2022 15:47-0400 Body mass index (BMI) [Ratio] 37.5 kg/m2 Dr. Adolfo Aguirre Work Phone: [facility] Work Phone: 03-01-2022 15:47-0400 Body temperature 96.7 [degF] Dr. Adolfo Aguirre Work Phone: [facility] Work Phone: 03-01-2022 15:47-0400 Body weight 106.[address] Adolfo Aguirre Work Phone: [facility] Work Phone: 03-01-2022 15:47-0400 Diastolic blood pressure 68 mm[Hg] Dr. Adolfo Aguirre Work Phone: [facility] Work Phone: 03-01-2022 15:47-0400 Heart rate 64 /min Dr. Adolfo Aguirre Work Phone: [facility] Work Phone: 03-01-2022 15:47-0400 Respiratory rate 18 /min Dr. Adolfo Aguirre Work Phone: [facility] Work Phone: 03-01-2022 15:47-0400 SaO2% (BldA) [Mass fraction] 94 % Dr. Adolfo Aguirre Work Phone: [facility] Work Phone: 03-01-2022 15:47-0400 Systolic blood pressure 115 mm[Hg] Dr. Adolfo Aguirre Work Phone: [facility] Work Phone: 02-15-2022 11:19-0400 Body mass index (BMI) [Ratio] 37.6 kg/m2 Dr. Adolfo Aguirre Work Phone: [facility] Work Phone: 02-15-2022 11:19-0400 Body temperature 98.3 [degF] Dr. Adolfo Aguirre Work Phone: [facility] Work Phone: 02-15-2022 11:19-0400 Body weight 106.[address] Adolfo Aguirre Work Phone: [facility] Work Phone: 02-15-2022 11:19-0400 Diastolic blood pressure 70 mm[Hg] Dr. Adolfo Aguirre Work Phone: [facility] Work Phone: 02-15-2022 11:19-0400 Heart rate 70 /min Dr. Adolfo Aguirre Work Phone: [facility] Work Phone: 02-15-2022 11:19-0400 Respiratory rate 15 /min Dr. Adolfo Aguirre Work Phone: [facility] Work Phone: 02-15-2022 11:19-0400 SaO2% (BldA) [Mass fraction] 93 % Dr. Adolfo Aguirre Work Phone: [facility] Work Phone: 02-15-2022 11:19-0400 Systolic blood pressure 151 mm[Hg] Dr. Adolfo Aguirre Work Phone: [facility] Work Phone: 02-09-2022 13:41-0400 Body mass index (BMI) [Ratio] 37.3 kg/m2 Dr. Adolfo Aguirre Work Phone: [facility] Work Phone: 02-09-2022 13:41-0400 Body temperature 98.4 [degF] Dr. Adolfo Aguirre Work Phone: [facility] Work Phone: 02-09-2022 13:41-0400 Body weight 105.[address] Adolfo Aguirre Work Phone: [facility] Work Phone: 02-09-2022 13:41-0400 Diastolic blood pressure 76 mm[Hg] Dr. Adolfo Aguirre Work Phone: [facility] Work Phone: 02-09-2022 13:41-0400 Heart rate 77 /min Dr. Adolfo Aguirre Work Phone: [facility] Work Phone: 02-09-2022 13:41-0400 Respiratory rate 15 /min Dr. Adolfo Aguirre Work Phone: [facility] Work Phone: 02-09-2022 13:41-0400 SaO2% (BldA) [Mass fraction] 93 % Dr. Adolfo Aguirre Work Phone: [facility] Work Phone: 02-09-2022 13:41-0400 Systolic blood pressure 157 mm[Hg] Dr. dAolfo Aguirre Work Phone: [facility] Work Phone: 01-25-2022 14:50-0400 Body temperature 98.1 [degF] Dr. Adolfo Aguirre Work Phone: [facility] 01-25-2022 14:50-0400 Diastolic blood pressure 68 mm[Hg] Dr. Adolfo Aguirre Work Phone: [facility] 01-25-2022 14:50-0400 Heart rate 74 /min Dr. Adolfo Aguirre Work Phone: [facility] 01-25-2022 14:50-0400 Respiratory rate 16 /min Dr. Adolfo Aguirre Work Phone: [facility] 01-25-2022 14:50-0400 SaO2% (BldA) [Mass fraction] 98 % Dr. Adolfo Aguirre Work Phone: [facility] 01-25-2022 14:50-0400 Systolic blood pressure 150 mm[Hg] Dr. Adolfo Aguirre Work Phone: [facility] 01-25-2022 13:42-0400 Body mass index (BMI) [Ratio] 37.6 kg/m2 Dr. Adolfo Aguirre Work Phone: [facility] Work Phone: 01-25-2022 13:42-0400 Body weight 105.[address] Adolfo Aguirre Work Phone: [facility] Work Phone: 01-25-2022 12:57-0400 Body mass index (BMI) [Ratio] 37.5 kg/m2 Dr. Adolfo Aguirre Work Phone: [facility] Work Phone: 01-25-2022 12:57-0400 Body temperature 98.8 [degF] Dr. Adolfo Aguirre Work Phone: [facility] Work Phone: 01-25-2022 12:57-0400 Body weight 105.[address] Adolfo Aguirre Work Phone: [facility] Work Phone: 01-25-2022 12:57-0400 Diastolic blood pressure 77 mm[Hg] Dr. Adolfo Aguirre Work Phone: [facility] Work Phone: 01-25-2022 12:57-0400 Heart rate 71 /min Dr. Adolfo Aguirre Work Phone: [facility] Work Phone: 01-25-2022 12:57-0400 Respiratory rate 15 /min Dr. Adolfo Aguirre Work Phone: [facility] Work Phone: 01-25-2022 12:57-0400 Systolic blood pressure 140 mm[Hg] Dr. Adolfo Aguirre Work Phone: [facility] Work Phone: 01-11-2022 14:18-0400 Body mass index (BMI) [Ratio] 37.3 kg/m2 Dr. Adolfo Aguirre Work Phone: [facility] Work Phone: 01-11-2022 14:18-0400 Body temperature 98.2 [degF] Dr. Adolfo Aguirre Work Phone: [facility] Work Phone: 01-11-2022 14:18-0400 Body weight 105.[address] Adolfo Aguirre Work Phone: [facility] Work Phone: 01-11-2022 14:18-0400 Diastolic blood pressure 88 mm[Hg] Dr. Adolfo Aguirre Work Phone: [facility] Work Phone: 01-11-2022 14:18-0400 Heart rate 79 /min Dr. Adolfo Aguirre Work Phone: [facility] Work Phone: 01-11-2022 14:18-0400 Respiratory rate 15 /min Dr. Adolfo Aguirre Work Phone: [facility] Work Phone: 01-11-2022 14:18-0400 SaO2% (BldA) [Mass fraction] 93 % Dr. Adolfo Aguirre Work Phone: [facility] Work Phone: 01-11-2022 14:18-0400 Systolic blood pressure 165 mm[Hg] Dr. Adolfo Aguirre Work Phone: [facility] Work Phone: 01-11-2022 14:18-0400 Body height [address] Adolfo Aguirre Work Phone: [facility] Work Phone: 01-11-2022 14:18-0400 Body mass index (BMI) [Ratio] 37.3 kg/m2 Dr. Adolfo Aguirre Work Phone: [facility] Work Phone: 01-11-2022 14:18-0400 Body temperature 98.2 [degF] Dr. Adolfo Aguirre Work Phone: [facility] Work Phone: 01-11-2022 14:18-0400 Body weight 105.[address] Adolfo Aguirre Work Phone: [facility] Work Phone: 01-11-2022 14:18-0400 Diastolic blood pressure 88 mm[Hg] Dr. Adolfo Aguirre Work Phone: [facility] Work Phone: 01-11-2022 14:18-0400 Heart rate 79 /min Dr. Adolfo Aguirre Work Phone: [facility] Work Phone: 01-11-2022 14:18-0400 Respiratory rate 15 /min Dr. Adolfo Aguirre Work Phone: [facility] Work Phone: 01-11-2022 14:18-0400 SaO2% (BldA) [Mass fraction] 93 % Dr. Adolfo Aguirre Work Phone: [facility] Work Phone: 01-11-2022 14:18-0400 Systolic blood pressure 165 mm[Hg] Dr. Adolfo Aguirre Work Phone: [facility] Work Phone: 12-21-2021 11:54-0400 Body temperature 96.6 [degF] Dr. Adolfo Aguirre Work Phone: [facility] Work Phone: 12-21-2021 11:54-0400 Diastolic blood pressure 52 mm[Hg] Dr. Adolfo Aguirre Work Phone: [facility] Work Phone: 12-21-2021 11:54-0400 Heart rate 68 /min Dr. Adolfo Aguirre Work Phone: [facility] Work Phone: 12-21-2021 11:54-0400 Respiratory rate 16 /min Dr. Adolfo Aguirre Work Phone: [facility] Work Phone: 12-21-2021 11:54-0400 SaO2% (BldA) [Mass fraction] 95 % Dr. Adolfo Aguirre Work Phone: [facility] Work Phone: 12-21-2021 11:54-0400 Systolic blood pressure 136 mm[Hg] Dr. Adolfo Aguirre Work Phone: [facility] Work Phone: 12-21-2021 09:43-0400 Body mass index (BMI) [Ratio] 38 kg/m2 Dr. Adolfo Aguirre Work Phone: [facility] Work Phone: 12-21-2021 09:43-0400 Body weight 107.[address] Adolfo Aguirre Work Phone: [facility] Work Phone: 12-21-2021 09:16-0400 Body mass index (BMI) [Ratio] 38 kg/m2 Dr. Adolfo Aguirre Work Phone: [facility] Work Phone: 12-21-2021 09:16-0400 Body temperature 98.2 [degF] Dr. Adolfo Aguirre Work Phone: [facility] Work Phone: 12-21-2021 09:16-0400 Body weight 107.[address] Adolfo Aguirre Work Phone: [facility] Work Phone: 12-21-2021 09:16-0400 Diastolic blood pressure 79 mm[Hg] Dr. Adolfo Aguirre Work Phone: [facility] Work Phone: 12-21-2021 09:16-0400 Heart rate 72 /min Dr. Adolfo Aguirre Work Phone: [facility] Work Phone: 12-21-2021 09:16-0400 Respiratory rate 15 /min Dr. Adolfo Aguirre Work Phone: [facility] Work Phone: 12-21-2021 09:16-0400 SaO2% (BldA) [Mass fraction] 93 % Dr. Adolfo Aguirre Work Phone: [facility] Work Phone: 12-21-2021 09:16-0400 Systolic blood pressure 178 mm[Hg] Dr. Adolfo Aguirre Work Phone: [facility] Work Phone: 11-30-2021 12:36-0400 Body temperature 96.6 [degF] Dr. Adolfo Aguirre Work Phone: [facility] Work Phone: 11-30-2021 12:36-0400 Diastolic blood pressure 66 mm[Hg] Dr. Adolfo Aguirre Work Phone: [facility] Work Phone: 11-30-2021 12:36-0400 Heart rate 59 /min Dr. Adolfo Aguirer Work Phone: [facility] Work Phone: 11-30-2021 12:36-0400 Respiratory rate 16 /min Dr. Adolfo Aguirre Work Phone: [facility] Work Phone: 11-30-2021 12:36-0400 SaO2% (BldA) [Mass fraction] 98 % Dr. Adolfo Aguirre Work Phone: [facility] Work Phone: 11-30-2021 12:36-0400 Systolic blood pressure 141 mm[Hg] Dr. Adolfo Aguirre Work Phone: [facility] Work Phone: 11-30-2021 10:56-0400 Body height [address] Adolfo Aguirre Work Phone: [facility] Work Phone: 11-30-2021 10:56-0400 Body mass index (BMI) [Ratio] 38.4 kg/m2 Dr. Adolfo Aguirre Work Phone: [facility] Work Phone: 11-30-2021 10:56-0400 Body weight 108.[address] Adolfo Aguirre Work Phone: [facility] Work Phone: 11-30-2021 10:04-0400 Body mass index (BMI) [Ratio] 38.5 kg/m2 Dr. Adolfo Aguirre Work Phone: [facility] Work Phone: 11-30-2021 10:04-0400 Body weight 108.[address] Adolfo Aguirre Work Phone: [facility] Work Phone: 11-30-2021 10:04-0400 Diastolic blood pressure 88 mm[Hg] Dr. Adolfo Aguirre Work Phone: [facility] Work Phone: 11-30-2021 10:04-0400 Heart rate 59 /min Dr. Adolfo Aguirre Work Phone: [facility] Work Phone: 11-30-2021 10:04-0400 Respiratory rate 15 /min Dr. Adolfo Aguirre Work Phone: [facility] Work Phone: 11-30-2021 10:04-0400 SaO2% (BldA) [Mass fraction] 96 % Dr. Adolfo Aguirre Work Phone: [facility] Work Phone: 11-30-2021 10:04-0400 Systolic blood pressure 182 mm[Hg] Dr. Adolfo Aguirre Work Phone: [facility] Work Phone: 11-09-2021 09:16-0500 Body mass index (BMI) [Ratio] 39.7 kg/m2 Dr. Adolfo Aguirre Work Phone: [facility] Work Phone: 11-09-2021 09:16-0500 Body temperature 98.2 [degF] Dr. Adolfo Aguirre Work Phone: [facility] Work Phone: 11-09-2021 09:16-0500 Body weight 111.[address] Adolfo Aguirre Work Phone: [facility] Work Phone: 11-09-2021 09:16-0500 Diastolic blood pressure 80 mm[Hg] Dr. Adolfo Aguirre Work Phone: [facility] Work Phone: 11-09-2021 09:16-0500 Heart rate 66 /min Dr. Adolfo Aguirre Work Phone: [facility] Work Phone: 11-09-2021 09:16-0500 Respiratory rate 15 /min Dr. Adolfo Aguirre Work Phone: [facility] Work Phone: 11-09-2021 09:16-0500 Systolic blood pressure 143 mm[Hg] Dr. Adolfo Aguirre Work Phone: [facility] Work Phone: 11-05-2021 12:43-0500 Body mass index (BMI) [Ratio] 39.8 kg/m2 Dr. Adolfo Aguirre Work Phone: [facility] Work Phone: 11-05-2021 12:43-0500 Body temperature 98.4 [degF] Dr. Adolfo Aguirre Work Phone: [facility] Work Phone: 11-05-2021 12:43-0500 Body weight 111.[address] Adolfo Aguirre Work Phone: [facility] Work Phone: 11-05-2021 12:43-0500 Diastolic blood pressure 77 mm[Hg] Dr. Adolfo Aguirre Work Phone: [facility] Work Phone: 11-05-2021 12:43-0500 Heart rate 85 /min Dr. Adolfo Aguirre Work Phone: [facility] Work Phone: 11-05-2021 12:43-0500 Respiratory rate 15 /min Dr. Adolfo Aguirre Work Phone: [facility] Work Phone: 11-05-2021 12:43-0500 SaO2% (BldA) [Mass fraction] 93 % Dr. Adolfo Aguirre Work Phone: [facility] Work Phone: 11-05-2021 12:43-0500 Systolic blood pressure 139 mm[Hg] Dr. Adolfo Aguirre Work Phone: [facility] Work Phone: 10-19-2021 09:19-0500 Body mass index (BMI) [Ratio] 41.1 kg/m2 Dr. Adolfo Aguirre Work Phone: [facility] Work Phone: 10-19-2021 09:19-0500 Body temperature 98.2 [degF] Dr. Adolfo Aguirre Work Phone: [facility] Work Phone: 10-19-2021 09:19-0500 Body weight 115.[address] Adolfo Aguirre Work Phone: [facility] Work Phone: 10-19-2021 09:19-0500 Diastolic blood pressure 72 mm[Hg] Dr. Adolfo Aguirre Work Phone: [facility] Work Phone: 10-19-2021 09:19-0500 Heart rate 80 /min Dr. Adolfo Aguirre Work Phone: [facility] Work Phone: 10-19-2021 09:19-0500 Respiratory rate 15 /min Dr. Adolfo Aguirre Work Phone: [facility] Work Phone: 10-19-2021 09:19-0500 SaO2% (BldA) [Mass fraction] 94 % Dr. Adolfo Aguirre Work Phone: [facility] Work Phone: 10-19-2021 09:19-0500 Systolic blood pressure 138 mm[Hg] Dr. Adolfo Aguirre Work Phone: [facility] Work Phone: 09-28-2021 09:11-0500 Body mass index (BMI) [Ratio] 40.8 kg/m2 Dr. Adolfo Aguirre Work Phone: [facility] Work Phone: 09-28-2021 09:11-0500 Body temperature 97.7 [degF] Dr. Adolfo Aguirre Work Phone: [facility] Work Phone: 09-28-2021 09:11-0500 Body weight 114.[address] Adolfo Aguirre Work Phone: [facility] Work Phone: 09-28-2021 09:11-0500 Diastolic blood pressure 77 mm[Hg] Dr. Adolfo Aguirre Work Phone: [facility] Work Phone: 09-28-2021 09:11-0500 Heart rate 77 /min Dr. Adolfo Aguirre Work Phone: [facility] Work Phone: 09-28-2021 09:11-0500 Respiratory rate 15 /min Dr. Adolfo Aguirre Work Phone: [facility] Work Phone: 09-28-2021 09:11-0500 SaO2% (BldA) [Mass fraction] 954 % Dr. Adolfo Aguirre Work Phone: [facility] Work Phone: 09-28-2021 09:11-0500 Systolic blood pressure 139 mm[Hg] Dr. Adolfo Aguirre Work Phone: [facility] Work Phone: 09-07-2021 11:56-0500 Body mass index (BMI) [Ratio] 40 kg/m2 Dr. Adolfo Aguirre Work Phone: [facility] Work Phone: 09-07-2021 11:56-0500 Body temperature 98.2 [degF] Dr. Adolfo Aguirre Work Phone: [facility] Work Phone: 09-07-2021 11:56-0500 Body weight 112.[address] Adolfo Aguirre Work Phone: [facility] Work Phone: 09-07-2021 11:56-0500 Diastolic blood pressure 83 mm[Hg] Dr. Adolfo Aguirre Work Phone: [facility] Work Phone: 09-07-2021 11:56-0500 Heart rate 77 /min Dr. Adolfo Aguirre Work Phone: [facility] Work Phone: 09-07-2021 11:56-0500 Respiratory rate 17 /min Dr. Adolfo Aguirre Work Phone: [facility] Work Phone: 09-07-2021 11:56-0500 SaO2% (BldA) [Mass fraction] 96 % Dr. Adolfo Aguirre Work Phone: [facility] Work Phone: 09-07-2021 11:56-0500 Systolic blood pressure 145 mm[Hg] Dr. Adolfo Aguirre Work Phone: [facility] Work Phone: Encounters Encounter Date Encounter Type Care Provider Facility Start: 05-30-2025 End: 05-30-[address] Myron Calvillo MD -[facility] Work Phone: Start: 05-30-2025 End: 05-30-2025 ambulatory Rae Aguirre Facility[place] Start: 05-30-[address] Chelsea Sanchez on [facility] Start: 05-02-[address] Chelsea Sanchez on [facility] Start: 05-02-2025 End: 05-02-2025 Patient encounter procedure Sultana HUBBARD -[facility] Work Phone: Start: 05-02-2025 End: 05-02-[address] Rae Aguirre MD Work Phone: [facility] Start: 04-04-2025 End: 04-04-[address] Myron Calvillo MD -[facility] Work Phone: Start: 04-04-2025 End: 04-04-[address] Rae Aguirre MD Work Phone: -[facility] Start: 03-21-[address] Chelsea Sanchez on DO -[facility] Start: 03-21-2025 End: 03-21-2025 Patient encounter [...] ambulatory Dr. Rae Aguirre MD Work Phone: -[facility] Start: 02-14-[address] Chelsea Sanchez on DO -[facility] Start: 02-14-2025 End: 02-14-2025 Patient encounter procedure Sultana Finn NP- -[facility] Work Phone: Start: 02-14-2025 End: 02-14-[address] Rae Aguirre MD Work Phone: [facility] Work Phone: Start: 02-12-[address] Chelsea Sanchez on DO -Radiation Oncology Start: 02-12-2025 End: 02-12-[address] Chelsea Anguiano DO [facility] Work Phone: Start: 02-12-2025 End: 02-12-[address] Rae Aguirre MD Work Phone: [facility] Work Phone: Start: 02-11-2025 Non-patient / Non-visit Dr. Chelsea Anguiano DO [facility] Work Phone: Start: 02-11-2025 ambulatory Chelsea Anguiano Facility: [facility] Start: 02-06-2025 ambulatory Chelsea Anguiano Facility: [facility] Start: 02-06-2025 Non-patient / Non-visit Dr. Chelsea Anguiano DO [facility] Start: 02-05-2025 ambulatory Chelsea [place]ston Facility: [facility] Start: 02-05-2025 Non-patient / Non-visit Dr. Chelsea Anguiano DO [facility] Start: 01-29-2025 ambulatory Chelsea Anguiano Facility: [facility] Start: 01-29-2025 Non-patient / Non-visit Dr. Chelsea Anguiano DO [facility] Start: 01-24-2025 End: 01-24-[address] Chelsea Anguiano DO [facility] Work Phone: Start: 01-24-2025 End: 01-24-[address] Rae Aguirre MD Work Phone: [facility] Work Phone: Start: 01-17-2025 End: 01-17-[address] Myron Calvillo MD -[facility] Work Phone: Start: 01-17-2025 End: 01-17-2025 ambulatory Rae Aguirre Facility:[facility] Start: 01-17-[address] Chelsea Sanchez on [facility] Start: 12-20-2024 End: 12-20-[address] Myron Calvillo MD [facility] Work Phone: Start: 12-20-2024 End: 12-20-2024 ambulatory Rae Aguirre Facility:[facility] Start: 11-22-[address] Chelsea Sanchez on [facility] Start: 11-22-2024 End: 11-22-2024 Patient encounter procedure Sultana HUBBARD -[facility] Work Phone: Start: 11-22-2024 End: 11-22-2024 [facility]ulatory [facility] Start: 11-13-2024 End: 11-13-[address] Rae Aguirre MD Work Phone: [facility] Work Phone: Start: 11-13-2024 End: 11-13-[address] Rae Aguirre MD -Laboratory Work Phone: Start: 11-13-2024 End: 11-13-2024 ambulatory Rae Aguirre Facility:[facility] Start: 11-09-2024 End: 11-09-[address] Rae Aguirre MD Work Phone: [facility] Work Phone: Start: 11-09-2024 End: 11-09-[address] [facility] Start: 11-09-2024 End: 11-09-2024 ambulatory [facility] [place] Facility:[facility] Start: 11-05-2024 End: 11-05-2024 Emergency department patient visit Dr. Trever Terry DO -Emergency Department Work Phone: Start: 10-25-[address] Chelsea Sanchez on [facility] Start: 10-25-2024 End: 10-25-2024 [facility] Work Phone: Start: 10-25-2024 End: 10-25-2024 ambulatory Sultana Finn [employer] Facility[place] Start: 10-18-2024 End: 10-18-[address] Kang Pagan MD -[facility] Work Phone: Start: 10-18-2024 End: 10-18-2024 [facility]ulatory [facility] Facility:[facility] Start: 09-20-2024 End: 09-20-[address] Myron Calvillo MD -[facility] Work Phone: Start: 09-20-2024 End: 09-20-2024 [facility] Start: 08-23-2024 End: 08-23-[address] Myron Calvillo MD -[facility] Work Phone: Start: 08-23-2024 End: 08-23-2024 ambulatory Rae Aguirre Facility:[facility] Start: 07-26-2024 End: 07-26-[address] Myron Calvillo MD -[facility] Work Phone: Start: 07-26-2024 End: 07-26-2024 ambulatory Rae Aguirre Facility:[facility] Start: 06-28-2024 End: 06-28-2024 ambulatory Rae Aguirre Facility:[facility] Start: 06-21-2024 End: 06-21-2024 ambulatory Rae Aguirre Facility:[facility] Start: 12-08-2023 End: 12-08-[address] Adolfo Aguirre Work Phone: [facility] Work Phone: Start: 12-08-2023 End: 12-08-[address] Adolfo Aguirre Work Phone: [facility] Start: 11-29-[address] Jose Luis Aguirre Work Phone: [facility] Start: 11-29-2023 End: 11-29-[address] Adolfo Aguirre Work Phone: [facility] Work Phone: Start: 10-25-2023 End: 10-25-[address] Adolfo Aguirre Work Phone: [facility] Work Phone: Start: 09-27-2023 End: 09-27-[address] Adolfo Aguirre Work Phone: [facility] Work Phone: Start: 08-30-2023 End: 08-30-[address] Adolfo Aguirre Work Phone: [facility] Work Phone: Start: 07-06-[address] Jose Luis Aguirre Work Phone: [facility]-Radiation Oncology Start: 07-05-[address] Jose Luis Aguirre Work Phone: [facility] Start: 07-05-2023 End: 07-05-[address] Adolfo Aguirre Work Phone: [facility] Work Phone: Start: 06-29-2023 End: 06-29-[address] Adolfo Aguirre Work Phone: [facility] Work Phone: Start: 06-29-2023 End: 06-29-[address] Adolfo Aguirre Work Phone: [facility]-Outpatient Bone Densitometry Work Phone: Start: 06-28-2023 End: 06-28-[address] Adolfo Aguirre Work Phone: [facility] Work Phone: Start: 06-28-2023 End: 06-28-[address] Adolfo Aguirre Work Phone: [facility]-Radiology, [facility] Work Phone: Start: 06-28-2023 End: 06-28-[address] Adolfo Aguirre Work Phone: [facility] Work Phone: Start: 05-31-[address] Jose Luis Aguirre Work Phone: [facility] Start: 05-31-2023 End: 05-31-[address] Adolfo Aguirre Work Phone: [facility] Work Phone: Start: 05-31-2023 End: 05-31-[address] Adolfo Aguirre Work Phone: [facility] [facility] Work Phone: Start: 05-26-2023 End: 05-26-[address] Adolfo Aguirre Work Phone: [facility] Work Phone: Start: 05-23-2023 End: 05-23-[address] Adolfo Aguirre Work Phone: [facility] Work Phone: Start: 05-03-2023 End: 05-03-[address] Adolfo Aguirre Work Phone: [facility] Work Phone: Start: 04-05-2023 End: 04-05-[address] Adolfo Aguirre Work Phone: [facility] Work Phone: Start: 03-08-2023 End: 03-08-[address] Adolfo Aguirre Work Phone: [facility] Work Phone: Start: 02-09-2023 End: 02-09-[address] Adolfo Aguirre Work Phone: [facility] Work Phone: Start: 11-30-[address] Jose Luis Aguirre Work Phone: [facility] Start: 11-30-2022 End: 11-30-2022 Non-patient / Non-visit Dr. Adolfo Aguirre Work Phone: [facility] Start: 11-30-2022 End: 11-30-[address] Adolfo Aguirre Work Phone: [facility] Work Phone: Start: 11-30-2022 End: 11-30-[address] Adolfo Aguirre Work Phone: [facility] Start: 11-02-2022 End: 11-02-[address] Adolfo Aguirre Work Phone: [facility] Start: 10-26-2022 End: 10-26-[address] Adolfo Aguirre Work Phone: [facility] Start: 09-28-2022 End: 09-28-[address] Adolfo Aguirre Work Phone: [facility] Start: 08-31-2022 End: 08-31-[address] Adolfo Aguirre Work Phone: [facility] Work Phone: Start: 08-31-2022 End: 08-31-[address] Adolfo Aguirre Work Phone: [facility] Start: 08-31-[address] Jose Luis [...] encounter procedure Dr. Adolfo Aguirre Work Phone: [facility], [facility] Start: 05-31-2022 End: 05-31-2022 Patient encounter [...] encounter procedure Dr. Adolfo Aguirre Work Phone: [facility] Start: 04-19-2022 End: 04-19-2022 Patient encounter procedure [...] encounter procedure Dr. Adolfo Aguirre Work Phone: [facility] Start: 01-11-[address] Jose Luis Aguirre Work Phone: [facility] Start: 01-11-2022 End: 01-11-[address] Adolfo Aguirre Work Phone: [facility] Start: 12-21-2021 End: 12-21-[address] Adolfo Aguirre Work Phone: [facility] Start: 12-14-2021 End: 12-14-[address] [facility] Start: 12-09-2021 Non-patient / Non-visit Dr. Adolfo Aguirre Work Phone: [facility] Start: 12-09-2021 End: 12-09-[address] Adolfo Aguirre Work Phone: [facility] Start: 11-30-[address] Jose Luis Aguirre Work Phone: [facility] Start: 11-30-2021 End: 11-30-[address] Adolfo Aguirre Work Phone: [facility] Start: 11-09-2021 End: 11-09-[address] Adolfo Aguirre Work Phone: [facility] Start: 11-05-2021 End: 11-05-[address] Adolfo Aguirre Work Phone: [facility] Start: 11-05-2021 End: 11-05-[address] Adolfo Aguirre Work Phone: [facility] Start: 10-19-2021 End: 10-19-[address] Adolfo Aguirre Work Phone: [facility] Start: 09-28-2021 End: 09-28-[address] Adolfo Aguirre Work Phone: [facility] Start: 09-07-2021 End: 09-07-[address] Adolfo Aguirre Work Phone: [facility] Start: 08-10-2021 End: 05-30-2025 ambulatory Rae Aguirre Facility:[facility] Start: 06-05-2021 End: 06-05-2021 ambulatory TAVARES FONTENOT [facility] Start: 04-30-2021 ambulatory LUCIANO ADAM Facility: [facility] Start: 04-21-2019 End: 04-22-2019 Patient encounter procedure UNKNOWN PROVIDER Facility:[facility] Procedures Date Procedure Procedure Detail Performing Clinician [...] 10-25-2023 X-ray of lumbosacral spine Dr. Trent gAuirre Work Phone: Start: 06-29-2023 Dual energy X-ray [...] 08-31-2022 MRI of brain with contrast Dr. rTent Aguirre Work Phone: Start: 06-03-2022 Radionuclide whole [...] 125 [Units /volume] in Serum or Plasma [facility] Start: 05-02-2025 Cancer Ag 15-3 [Pres ence] in Serum or Plasma [facility] Start: 05-02-2025 Cancer Ag 27-29 [Pre sence] in Serum or Plasma [facility] Start: 05-02-2025 Carcinoembryonic Ag [Mass/volume] in Serum or Plasma [facility] Start: 05-02-2025 [facility] Start: 03-14-2025 Cancer Ag 15-3 [Pres ence] in Serum or Plasma [facility] Start: 03-14-2025 Cancer Ag 27-29 [Pre sence] in Serum or Plasma [facility] Start: 02-14-2025 [facility] Start: 01-17-2025 Patient referral [facility] Work Phone: Start: 07-05-2023 [facility] Start: 05-31-2023 Cancer Ag 15-3 [Pres ence] in Serum or Plasma [facility] Start: 05-31-2023 Cancer Ag 27-29 [Pre sence] in Serum or Plasma [facility] Start: 05-31-2023 [facility] Start: 05-26-2023 Venous catheter care management [facility] Start: 05-23-2023 Venous catheter care management [facility] Start: 01-11-2023 Disease process or c ondition education [facility] Start: 01-11-2023 [facility] Start: 12-07-2022 Disease process or c ondition education [facility] Start: 12-07-2022 Vitamin D, 25-hydroxy measurement [facility] Start: 12-07-2022 [facility] Start: 11-02-2022 Disease process or c ondition education [facility] Start: 11-02-2022 [facility] Start: 09-28-2022 Disease process or c ondition education [facility] Start: 09-28-2022 [facility] Start: 08-31-2022 Venous catheter care management [facility] Start: 08-31-2022 Disease process or c ondition education [facility] Start: 08-31-2022 [facility] Start: 08-03-2022 Disease process or c ondition education [facility] Start: 08-03-2022 [facility] Start: 07-05-2022 Disease process or c ondition education [facility] Start: 07-05-2022 [facility] Start: 06-07-2022 Disease process or c ondition education [facility] Start: 06-07-2022 [facility] Start: 06-03-2022 Venous catheter care management [facility] Work Phone: Start: 05-31-2022 Venous catheter care management [facility] Start: 04-26-2022 Disease process or c ondition education [facility] Start: 04-26-2022 [facility] Start: 04-22-2022 Venous catheter care management [facility] Work Phone: Start: 04-19-2022 Venous catheter care management [facility] Start: 03-16-2022 Disease process or c ondition education [facility] Start: 03-16-2022 [facility] Start: 02-15-2022 Disease process or c ondition education [facility] Start: 02-15-2022 [facility] Start: 01-11-2022 Disease process or c ondition education [facility] Start: 01-11-2022 [facility] Start: 10-19-2021 [facility] Start: 08-17-2021 Venous catheter care management [facility] Start: 05-25-2021 Venous catheter care management [facility] Alanine aminotransfe rase [Enzymatic activity/volume] in Serum or Plasma [facility] Albumin [Mass/volume ] in Serum or Plasma [facility] Alkaline phosphatase [Enzymatic activity/volume] in Serum or Plasma [facility] Anion gap measurement [facility] Aspartate aminotrans ferase [Enzymatic activity/volume] in Serum or Plasma [facility] Bilirubin, total measurement [facility] BUN/Creatinine ratio [facility] Calcium [Mass/volume ] in Serum or Plasma [facility] Cancer Ag 15-3 [Pres ence] in Serum or Plasma [facility] Cancer Ag 15-3 [Pres ence] in Serum or Plasma [facility] Cancer Ag 15-3 [Pres ence] in Serum or Plasma [facility] Cancer Ag 15-3 [Pres ence] in Serum or Plasma [facility] Cancer Ag 15-3 [Pres ence] in Serum or Plasma [facility] Cancer Ag 15-3 [Pres ence] in Serum or Plasma [facility] Cancer Ag 27-29 [Pre sence] in Serum or Plasma [facility] Cancer Ag 27-29 [Pre sence] in Serum or Plasma [facility] Cancer Ag 27-29 [Pre sence] in Serum or Plasma [facility] Cancer Ag 27-29 [Pre sence] in Serum or Plasma [facility] Cancer Ag 27-29 [Pre sence] in Serum or Plasma [facility] Cancer Ag 27-29 [Pre sence] in Serum or Plasma [facility] Carbon dioxide, tota l [Moles/volume] in Serum or Plasma [facility] Carcinoembryonic Ag [Mass/volume] in Serum or Plasma [facility] Carcinoembryonic Ag [Mass/volume] in Serum or Plasma [facility] CBC W Auto Different ial panel - Blood [facility] Work Phone: CBC W Auto Different ial panel - Blood [facility] CBC W Auto Different ial panel - Blood [facility] CBC W Auto Different ial panel - Blood [facility] CBC W Auto Different ial panel - Blood [facility] CBC W Auto Different ial panel - Blood [facility] CBC W Auto Different ial panel - Blood [facility] CBC W Auto Different ial panel - Blood [facility] CBC W Auto Different ial panel - Blood [facility] Chloride [Moles/volu me] in Serum or Plasma [facility] Comprehensive metabo lic 1999 panel - Serum or Plasma [facility] Comprehensive metabo lic 1999 panel - Serum or Plasma [facility] Comprehensive metabo lic 1999 panel - Serum or Plasma [facility] Comprehensive metabo lic 1999 panel - Serum or Plasma [facility] Creatinine [Moles/vo lume] in Serum or Plasma [facility] Glucose [Mass/volume ] in Serum or Plasma [facility] Hematocrit [Volume F raction] of Blood [facility] Hemoglobin [Mass/volume] in Blood [facility] Lactate dehydrogenase measurement [facility] Lactate dehydrogenase measurement [facility] Lactate dehydrogenase measurement [facility] Lactate dehydrogenase measurement [facility] LDH [facility] Work Phone: Leukocytes [#/volume] in Blood [facility] Mean corpuscular hem oglobin concentration determination [facility] Mean corpuscular hem oglobin determination [facility] Measurement of renal function [facility] Neutrophil count [facility] Neutrophil percent d ifferential count [facility] NM Whole body Bone Views [facility] Patient referral [facility] Work Phone: Platelets [#/volume] in Blood [facility] Potassium [Moles/vol ume] in Serum or Plasma [facility] PT Unspecified body region [facility] Radiation oncology A ND/OR radiotherapy [facility] Red blood cell count [facility] Red cell distributio n width determination [facility] Sodium [Moles/volume ] in Serum or Plasma [facility] Total protein measurement [facility] Urea nitrogen [Mass/ volume] in Serum or Plasma [facility] Immunizations Immunization Date Immunization Notes Care Provider [facility] 06-17-2021 influenza, injectabl e, quadrivalent, preservative free Dr. Adolfo Aguirre Work Phone: [facility] 06-17-2021 influenza, seasonal, injectable Dr. Adolfo Aguirre Work Phone: [facility] 10-28-2020 Covid (Moderna) Dr. Emerita Aguirre Work Phone: [facility] 09-30-2020 Joseid (Moderna) Dr. Emerita Aguirre Work Phone: [facility] 06-26-2020 influenza, injectabl e, quadrivalent, preservative free Dr. Adolfo Aguirre Work Phone: [facility] 06-26-2020 influenza, seasonal, injectable Dr. Adolfo Aguirre Work Phone: [facility] 06-26-2018 influenza, injectabl e, quadrivalent, preservative free Dr. Adolfo Aguirre Work Phone: [facility] 06-26-2018 influenza, seasonal, injectable Dr. Adolfo Aguirre Work Phone: [facility] 07-04-2017 influenza, injectabl e, quadrivalent, preservative free Dr. Adolfo Aguirre Work Phone: [facility] 07-04-2017 influenza, seasonal, injectable Dr. Adolfo Aguirre Work Phone: [facility] 06-21-2016 influenza, injectabl e, quadrivalent, preservative free Dr. Adolfo Aguirre Work Phone: [facility] 06-21-2016 influenza, seasonal, injectable Dr. Adolfo Aguirre Work Phone: [facility] 06-12-2015 influenza, injectabl e, quadrivalent, preservative free Dr. Adolfo Aguirre Work Phone: [facility] 06-12-2015 influenza, seasonal, injectable Dr. Adolfo Aguirre Work Phone: [facility] 06-07-2014 influenza, injectabl e, quadrivalent, preservative free Dr. Adolfo Aguirre Work Phone: [facility] 06-07-2014 influenza, seasonal, injectable Dr. Adolfo Aguirre Work Phone: [facility] 06-07-[address] Saima Aguirre Work Phone: [facility] Work Phone: 06-07-2014 pneumococcal vaccine , unspecified formulation Dr. Adolfo Aguirre Work Phone: [facility] 07-12-[address] Adolfo Aguirre Work Phone: [facility] 06-12-[address] Adolfo Aguirre Work Phone: [facility] Payers Date Payer Category Payer Self-pay [id number] 2019 Unknown PMT POSTING 2017 Medicare [id number] 2017 Unknown [id number] 2015 Unknown [id number] 1955 Unknown [id number] 2.. [id number] 1955 Unknown [id number] Unknown [id number] 40.1.799896.3.579.2.462 Unknown [id number] .16.8 40.1.335197.3.579.2.462 Unknown [id number] .16.8 40.1.420667.3.579.2.462 Unknown [id number] .16.8 40.1.772527.3.579.2.462 Unknown [id number] ..[id number] 40.1.129285.3.579.2.462 Unknown [id number] 2.16.8 40.1.853607.3.579.2.462 Unknown [id number] 2.16.8 40.1.326986.3.579.2.462 Unknown [id number] 2.16.8 40.1.773949.3.579.2.462 Unknown [id number] 2.16.8 40.1.821946.3.579.2.462 Unknown [id number] 2.16.8 40.1.171519.3.579.2.462 Unknown [id number] 2.16.8 40.1.428909.3.579.2.462 Unknown [id number] 2.16.8 40.1.082825.3.579.2.462 Unknown [id number] 2.16.8 40.1.872030.3.579.2.462 Unknown [id number] 2.16.8 40.1.869259.3.579.2.462 Unknown [id number] 2.16.8 40.1.988815.3.579.2.462 Unknown [id number] 2.16.8 40.1.460450.3.579.2.462 Unknown [id number] 2.16.8 40.1.929102.3.579.2.462 Unknown [id number] 2.16.8 40.1.166026.3.579.2.462 Unknown [id number] 2.16.8 40.1.097711.3.579.2.462 Unknown [id number] 2.16.8 40.1.789604.3.579.2.462 Unknown [id number] 2.16.8 40.1.015645.3.579.2.462 Unknown [id number] 2.16.8 40.1.885950.3.579.2.462 Unknown [id number] 2.16.8 40.1.968790.3.579.2.462 Unknown [id number] 2.16.8 40.1.132524.3.579.2.462 Unknown [id number] 2.16.8 40.1.125156.3.579.2.462 Unknown [id number] 2.16.8 40.1.595670.3.579.2.462 Unknown [id number] 2.16.8 40.1.585169.3.579.2.462 Unknown [id number] 2.16.8 40.1.113591.3.579.2.462 Social History Date Type Detail Facility Start: 04-21-2021 End: 05-20-2021 Tobacco smoking status FLIS Unknown if ever smoked [facility] Start: 04-20-2019 None [facility] Start: 04-20-2019 Spouse/ Signif icant Other [facility] Start: 1955 Sex Assigned At Female [facility] Start: 07-10-2015 Rare [facility] Start: 07-10-2015 Non-smoker [facility] Start: 11-05-2024 Tobacco smoking status NHIS Never smoked tobacco (finding) [facility] Start: 11-21-2024 End: 11-23-2024 Sex Female (finding) [facility] Sex Female [facility] Medical Equipment Procedure Code Equipment [...] Level Of Cons ciousness Awake;Alert;Appropriate;Follow s Commands [facility] Work Phone: Clinical Notes 05-31-2023 to 05-30-2025 Note Date & Type Note Facility 05-30-2025 Progress note [facility] 02-12-2025 Evaluation note Diagnosis Onset [...] breast cancer chronic May 30, 2025 1:34pm [facility] Work Phone: 1(375) 497-910706-03-2025 Progress [facility] [address] [place] [address] OFFICE VISIT Date of Service: 02/12/25 1336 MR#: [id number] Acct: [id number] Name: ERIBERTO SCHULER Rep #: [id number] : 1955 From: Chelsea oleary DO Age/Sex: 69/F Location[place] [facility] Status: Signed Intake Vital Signs 01/24/25 13:02 [...] Yes (back) Pain scale (1-10): 6 Allergies Kuhehjy-HNV-KzS Reductase Inhibitor (Ujsdeys-Cif-Uph Reductase Inhibitor) Adverse Reaction (Intermediate, Verified 02/12/25 13:40) elevated liver enzymes Medications ?Medication ?Instructions ?Recorded ?Confirmed ?Type losartan 100 mg tablet 100 mg PO DAILY 07/02/1312/04 History metformin 1,000 mg tablet 1,000 mg PO BIDCM 07/02/13 0 02/12/25 History ldhppeav-myr-hjflv acid 0.4 1 ea PO QHS 07/02/1302/12 [...] nodule Bone metastases Atherosclerotic heart disease of [place] coronary artery without angina pectoris TIA (transient [...] 1,000 mg PO BIDCM 07/02/13 1 History vfrsnzbv-sne-tqkjk acid 0.4 1 ea PO QHS 07/02/13 [...] Type Severity Reaction Status Date / Time Wflflgd-JUN-JxJ Reductase AdvReac Intermediate elevated Verified 02/12/25 13:40 Inhibitor (Wyntnhv-Nrh-Lmo liver Reductase Inhibitor) enzymes Family History Father [...] moderately differentiated ductal carcinoma (ER > 95%, OR >95%, HER-2 2+ IHC not amplified onFISH) [...] at any time. Chelsea Anguiano DO, MS [employer], Department of Radiation Oncology [facility] Coding Level of Care Code Radiation Tx Management x5 Diagnoses Bone metastases C79.51 02/12/25 1354 DO> Date _ Chelsea Anguiano DO Cosigner Signature: Date (if applicable) CC: ~ [facility]05-08-2025 Evaluation note* Diagnosis Onset Date Resolution [...] cancer chroni c May 02, 2025 9:49am [place] [facility] Work Phone: 1(716) 628-493504-10-2025 Evaluation note* Diagnosis Onset Date Resolution Status [...] cancer chroni c April 04, 2025 2:27pm [facility] Work Phone: 1(426) 720-878303-13-2025 Evaluation note* Diagnosis Onset Date Resolution Status [...] cancer chroni c February 14, 2025 9:43am [place] [facility] Work Phone: 1(147) 216-481503-13-2025 Evaluation note* Diagnosis Onset Date Resolution Status [...] cancer chroni c March 14, 2025 9:37am [place] [employer] [facility] Work Phone: 1(977) 377-931003-13-2025 Evaluation note* Diagnosis Onset Date Resolution Status [...] cancer chroni c March 21, 2025 1:14pm [place] [employer] [facility] Work Phone: 1(610) 925-709403-04-2025 Nuclear medicine Diagnostic study note [facility] Imaging Services [address] [place] [address] [id number] Bone Scan Whole Body MR#: [id number] Acct: [id number] Name: ERIBERTO SCHULER Rep #: [id number] : 1955 F 69 From: Shen García MD PCP: Dr. Rae Aguirre MD Status: REG CLI Study:Bone Scan Whole Body Date of Exam: 11/13/24 Exam# [id number] Ordering Dr: Kavon Calvillo MD PROCEDURE: BONE [...] IMPRESSION: Multifocal bilateral metastatic deposits. Reading Location: [id number] CC: HAYDEE Finn; Dr. Rae Aguirre MD; Dr. Myron Calvillo MD ~ Patient Liaison: Signed [facility]02-06-2025 Evaluation note* Diagnosis Onset Date Resolution Status [...] cancer chroni c January 17, 2025 1:39pm [facility] Work Phone: [phone]) [phone] Evaluation note* Diagnosis Onset Date Resolution Status [...] Bone metastases chronic February 12, 2025 1:29pm [facility] Work Phone: 1(952) 465-589611-14-2024 Evaluation note* Diagnosis Onset Date Resolution Status [...] cancer chroni c October 25, 2024 12:01pm [facility] Work Phone: [phone] Evaluation note* Diagnosis Onset Date Resolution Status [...] cancer chroni c November 22, 2024 1:28pm [facility] Work Phone: 1(911) 799-671809-19-2023 Progress note Author Myron Calvillo [facility] May 31, 2023 2:08pm Note Date/Time May 31, 2023 1:32pm [facility] [address] [place] [address] OFFICE VISIT Date of Service: 05/31/23 1326 MR#: [id number] Acct: [id number] Name: ERIBERTO SCHULER Rep #: [id number] : 1955 From: Myron Calvillo MD Age/Sex: 68/F Location[place] [facility] Status: Signed HPI Subjective Date of Service 05/31/23 Chief Complaint Metastatic breast cancer on treatment History of Present Illness 68 y.o. woman. 06/19/2013: Patient underwent core biopsy of the right breast and this demonstrated invasive moderately differentiated ductal carcinoma (ER > 95%, OR >95%, HER-2 2+ IHC not amplified on [...] the right anterolateral chest wall rendering the [place] at maximum SUV of9.4 compared to 1.7 [...] punch biopsy of R chest nodule at [facility] which showed Metastatic Breast cancer. 06/15/2021 Got [...] [employer]. Has pain R shoulder with movement. [facility] Medical History Abdominal cramping Acquired absence of bilateral breasts and nipples Acute asthma exacerbation Asthma Atherosclerotic heart disease of [place] coronary artery without angina pectoris Bone metastases [...] 95 Oxygen Delivery Method room air Intake Director Hedis Required: No Accompanied by: Son Is patient in pain?: Yes (right shoulder and low back) Pain scale (1-10): 3 Allergies Cyyecou-LZN-IcW Reductase Inhibitor [Tfegrez-Pru-Rzk Reductase Inhibitor] Adverse Reaction (Intermediate, Verified 05/31/23 13:29) elevated liver enzymes Medications losartan 100 mg tablet 100 mg PO DAILY 07/02/13 [History Confirmed 05/31/23] metformin 1,000 mg tablet 1,000 mg PO BIDCM 07/02/13 [History Confirmed 05/31/23] ydvnebmi-ygd-fkgmi acid 0.4 mg-lycopene 300 mcg-lutein 250 mcg [...] applicable) CC: Dr. Adolfo Aguirre MD ~ [facility] Work Phone: Evaluation note* Diagnosis Onset Date [...] metastases chronic Metastasis from breast cancer chronic [facility] Work Phone: evaluation note* Diagnosis Onset Date [...] metastases chronic Metastasis from breast cancer chronic [facility] Work Phone: Evaluation note* Diagnosis Onset Date [...] metastases chronic Metastasis from breast cancer chronic [facility] Work Phone: Evaluation note* Diagnosis Onset Date Resolution Status Dysuria acute Bone metastases chronic Metastasis from breast cancer chronic Cystitis acute Bone metastases chronic Metastasis from breast cancer chronic Bone metastases chronic Metastasis from breast cancer chronic Bone metastases chronic Metastasis from breast cancer chronic Confusion acute Bone metastases chronic Metastasis from breast cancer chronic [facility] Work Phone: Evaluation note* Diagnosis Onset Date Resolution Status Confusion acute Bone metastases chronic Metastasis from breast cancer chronic Bone metastases chronic Metastasis from breast cancer chronic Neutropenia acute Bone metastases chronic Metastasis from breast cancer chronic Bone metastases chronic Metastasis from breast cancer chronic Bone metastases chronic Metastasis from breast cancer chronic [facility] Work Phone: Evaluation note* Diagnosis Onset Date Resolution Status Anemia acute Bone metastases chronic Metastasis from breast cancer chronic Bone metastases chronic Metastasis from breast cancer chronic Bone metastases chronic Metastasis from breast cancer chronic Anemia acute Cough acute Bone metastases chronic Metastasis from breast cancer chronic Abdominal cramping resolved Bone metastases chronic Metastasis from breast cancer chronic Abdominal cramping resolved [facility] Work Phone: Evaluation note* Diagnosis Onset Date [...] metastases chronic Metastasis from breast cancer chronic [facility] Work Phone: Evaluation note* Diagnosis Onset Date Resolution Status Pain of right humerus acute Bone metastases chronic Metastasis from breast cancer chronic Pain of right humerus acute Bone metastases chronic Metastasis from breast cancer chronic Low back pain acute Pain of right humerus acute Bone metastases chronic Metastasis from breast cancer chronic Bone metastases chronic Metastasis from breast cancer chronic [facility] Work Phone: Progress note Author Chelsea Anguiano [facility] Note Date/Time February 12, 2025 1:54p [facility] [address] [address] OFFICE VISIT Date of Service: 02/12/25 1336 MR#: [id number] Acct: [id number] Name: ERIBERTO SCHULER Rep #: [id number] : 1955 From: Chelsea Walsto n DO Age/Sex: 69/F [place] [facility] [place]: Signed Intake Vital Signs 01/24/25 13:02 [...] Yes (back) Pain scale (1-10): 6 Allergies Zozmifr-SMY-TtZ Reductase Inhibitor (Jjqiynv-Jwo-Mhj Reductase Inhibitor) Adverse Reaction (Intermediate, Verified 02/12/25 13:40) elevated liver enzymes Medications ?Medication ?Instructions ?Recorded ?Confirmed ?Type losartan 100 mg tablet 100 mg PO DAILY 07/02/1312/04 History metformin 1,000 mg tablet 1,000 mg PO BIDCM 07/02/13 0 02/12/25 History piyeqkkp-rif-cmxin acid 0.4 1 ea PO QHS 07/02/1302/12 [...] nodule Bone metastases Atherosclerotic heart disease of [place] coronary artery without angina pectoris TIA (transient [...] 1,000 mg PO BIDCM 07/02/13 1 History mbhltpam-bsj-dbxnd acid 0.4 1 ea PO QHS 07/02/13 [...] Type Severity Reaction Status Date / Time Uqsqnse-FAK-GcQ Reductase AdvReac Intermediate elevated Verified 02/12/25 13:40 Inhibitor (Jbamifm-Kpj-Igb liver Reductase Inhibitor) enzymes Family History Father [...] moderately differentiated ductal carcinoma (ER > 95%, OR >95%, HER-2 2+ IHC not amplified on [...] at any time. Chelsea Anguiano DO, MS [employer], Department of Radiation Oncology [facility] Coding Level of Care Code Radiation Tx Management x5 Diagnoses Bone metastases C79.51 02/12/25 1354 <Electronically signed by Chelsea Anguiano DO> Date _ Chelsea Anguiano DO Cosigner Signature: Date (if applicable) CC: ~ [facility] Work Phone: Progress note Author Myron Calvillo [facility] Note Date/Time May 30, 2025 3:05pm [facility] Cancer [address] [address] OFFICE VISIT Date of Service: 05/30/25 1421 MR#: [id number] Acct: [id number] Name: ERIBERTO SCHULER Rep #: [id number] : 1955 From: Myron Calvillo MD Age/Sex: 70/F Location[place] [facility] [place] Status: Signed HPI Subjective Date of Service 05/30/25 Chief Complaint Metastatic breast cancer on treatment History of Present Illness 70 y.o. woman. 06/19/2013: Patient underwent core biopsy of the right breast and this demonstrated invasive moderately differentiated ductal carcinoma (ER > 95%, OR >95%, HER-2 2+ IHC not amplified on [...] the right anterolateral chest wall rendering the [place] at maximum SUV of9.4 compared to 1.7 [...] punch biopsy of R chest nodule at [facility] which showed Metastatic Breast cancer. 06/15/2021 Got [...] cold, has pain in the R scapular. [facility] Medical History Breast cancer metastasized to bone Pain of right humerus Abdominal cramping Cough Mental status alteration Encounter for education Wears glasses Marijuana use Thyroid disease Diabetes High cholesterol Non-smoker CPAP (continuous positive airway pressure) dependence Asthma History of echocardiogram History of stress test Hypertension Cardiology follow-up encounter Right kidney mass Left lower lobe pulmonary nodule Bone metastases Atherosclerotic heart disease of [place] coronary artery without angina pectoris TIA (transient [...] Delivery Method room air room air Intake Director Hedis Required: No Accompanied by: Granddaughter Is patient in pain?: Yes (across lower adomen) Pain scale (1-10): 3 Allergies Cajseep-YXG-JwR Reductase Inhibitor (Juralpk-Gma-Rzy Reductase Inhibitor) Adverse Reaction (Intermediate, Verified 05/30/25 14:25) elevated liver enzymes Medications ?Medication ?Instructions ?Recorded ?Confirmed ?Type losartan 100 mg tablet 100 mg PO DAILY 07/02/13 History metformin 1,000 mg tablet 1,000 mg PO BIDCM 07/02/13 0 05/30/25 History osqjfydu-msz-zafgz acid 0.4 1 ea PO QHS 07/02/1305/30 [...] Cosigner Signature: Date (if applicable) CC: Dr. Rae Aguirre MD ~ [facility] Work Phone: Reason for referral (narrative)No reason for referral information availableWWright-[facility] Work Phone: Summary Purpose Family History Relationship [...] Yes November 30, 2021 11:08am Power of Mobile Therapist Yes November 30 11:08am Advance Directive Response Recorded Date/ Time Advance Directives Yes January 11, 2022 3:13pm Living Will Yes January 11, 2022 3: 13pm Power of Mobile Therapist Yes January 11, 2022 3:13pm Advance Directive Response Recorded Date/ Time Advance Directives on File No Augus t 2021 4:17pm Name of Medical Power of Mobile Therapist Aric Schuler April 26, 2022 4:17pm Advance Directives Yes April 26, 2022 4:17pm Living Will Yes April 26 4:17pm Power of Mobile Therapist Yes April 26, 022 4:17pm Advance Directive Response Recorded Date/ Time Advance Directives on File No Decem 2021 10:56am Name of Medical Power of Mobile Therapist Aric Sparr August 31, 2022 10:56am Advance Directives Yes August 10:56am Living Will Yes August 31, 022 10:56am Power of Mobile Therapist Yes August 31, 2022 10:56am Advance Directive Response Recorded Date/ Time Advance Directives on File No Lis page 2022 1:05pm Name of Medical Power of Mobile Therapist Aric Sparr November 02, 2022 1:05pm Advance Directives Yes October 1:05pm Living Will Yes November 02, 2 023 1:05pm Power of Mobile Therapist Yes November 02, 2022 1:05pm Advance Directive Response Recorded Date/ Time Advance Directives on File No April 05, 2023 3:34pm Name of Medical Power of Mobile Therapist Aric Sparr April 05, 2023 3:34pm Advance Directives Yes April 05 3:34pm Living Will Yes April 05, 2023 3:34pm Power of Mobile Therapist Yes April 05 3:34pm Advance Directive Response Recorded Date/ Time Advance Directives on File No November 29, 2023 3:00pm Name of Medical Power of Mobile Therapist Aric Sparr November 29, 2023 3:00pm Advance Directives Yes November 28, 2 024 3:00pm Living Will Yes November 29, 2023 3:00pm Power of Mobile Therapist Yes November 28 3:00pm Advance Directive Response Recorded Date/ Time Living Will Yes May 24, 2024 3:15pm Power of Mobile Therapist Yes May 3:15pm Advance Directives on File No Sarimykel adamsy 2024 12:58pm Living Will Yes October 18 12:58pm Power of Mobile Therapist Yes October 18, 2024 12:58pm Name of Medical Power of Mobile Therapist Aric Sparr October 18, 2024 12:58pm Advance Directives Yes October 18, 2024 12:58pm Living Will Yes November 05, 2 025 9:10pm Power of Mobile Therapist Yes November 05, 2024 9:10pm Name of Medical Power of Mobile Therapist ARIC SPARR, PAPO SPARR, HADLEY SPARR November 05, 2024 9:10pm Advance Directive Response Recorded Date/ Time Living Will Yes May 24, 2024 3:15pm Power of Mobile Therapist Yes May 3:15pm Advance Directives on File No November 22, 2024 3:43pm Living Will Yes November 22, 2024 3:43pm Power of Mobile Therapist Yes November 22 3:43pm Name of Medical Power of Mobile Therapist Aric Sparr November 22, 2024 3:43pm Advance Directives Yes November 22 025 3:43pm Living Will Yes November 05 025 9:10pm Power of Mobile Therapist Yes November 05, 2024 9:10pm Name of Medical Power of Mobile Therapist ARIC SPARR, PAPO SPARR, HADLEY SPARR November 05, 2024 9:10pm Advance Directive Response Recorded Date/ Time Advance Directives on File No January 172024 2:51pm Living Will Yes January 17, 2025 2: 51pm Do you have a Healthcare Pow er of Mobile Therapist? Yes January 17, 2025 2:51pm Name of Medical Power of Mobile Therapist Aric Sparr January 17, 2025 2:51pm Advance Directives Yes January 17, 2025 2:51pm Living Will Yes November 05 9:10pm Do you have a Healthcare Pow er of Mobile Therapist? Yes November 05, 2024 9:10pm Name of Medical Power of Mobile Therapist ARIC SPARR, PAPO SPARR, HADLEY SPARR November 05, 2024 9:10pm Advance Directive Response Recorded Date/ Time Advance Directives on File No February 14, 2025 12:36pm Living Will Yes February 14, 2025 1 2:36pm Do you have a Healthcare Power of Mobile Therapist? Yes February 14, 2025 12:36pm Name of Medical Power of Mobile Therapist Aric Sparr February 14, 2025 12:36pm Advance [...] 12:30pm HYPERGLYCEMIA November 05, 2024 6:11pm [id number] November 13, 2024 8:39 am Reason for [...] 12:01pm HYPERGLYCEMIA November 05, 2024 6:11pm [id number] November 13, 2024 8:39 am [facility] [...] 12:01pm HYPERGLYCEMIA November 05, 2024 6:11pm [id number] November 13, 2024 8:39 am [facility] [...] 12:01pm HYPERGLYCEMIA November 05, 2024 6:11pm [id number] November 13, 2024 8:39 am [facility] [...] 12:01pm HYPERGLYCEMIA November 05, 2024 6:11pm [id number] November 13, 2024 8:39 am [facility] [...] 3:30 pm 2 WEEKS NO LABS REVIEW [facility] Ju ly 2024 2:27pm Reason for Visit [...] 1:1 4pm 2 WEEKS NO LABS REVIEW [facility] Ju ly 2024 2:27pm [facility] [...] 1:1 4pm 2 WEEKS NO LABS REVIEW [facility] Ju ly 2024 2:27pm [facility] May [...] and content) DATE CREATED AUTHOR 05/22/2019 [employer] DATE CREATED AUTHOR AUTHOR'S ORGANIZ ATION 11/04/2021 [facility] DATE CREATED AUTHOR AUTHOR'S ORGANIZ ATION 02/23/2023 [facility] DATE CREATED AUTHOR AUTHOR'S ORGANIZ ATION 06/02/2025 [facility] Goals (unrecognized section and content) Goals may [...] Gomez MD Attending Provider Active Ngozi Padron DIRT BIKE RACER-C Referring Provider Active Team Status: Active Member [...] Care Provider Activ e Ngozi Padron , DIRT BIKE RACER-C Attending Provider, Referring P rovider Active Dr. Myron Calvillo MD Other Provider Active Team Status: Inactive Member Role Status Dates Dr. Adolfo Aguirre MD Primary Care Provider, Refe rring Provider Active Sultana Finn DIRT BIKE RACER, DIRT BIKE RACER-C Attending Provider Active Team Status: Active Member Role Status Dates Dr. Adolfo Aguirre MD Primary Care Provider Activ e Sultanajody Finn DIRT BIKE RACER, DIRT BIKE RACER-C Attending Provider, Referring Provider Active Team Status: Inactive Member Role Status Dates Dr. Adolfo Aguirre MD Primary Care Provider Activ e Sultana Aakash DIRT BIKE RACER, DIRT BIKE RACER-C Attending Provider, Referring Provider Active Team Status: Inactive Member Role Status Dates Dr. Adolfo Aguirre MD Primary Care Provider, Refe rring Provider Active Dr. Myron Calvillo MD Active Sultanajody Finn DIRT BIKE RACER, DIRT BIKE RACER-C Attending Provider Active Team Status: Inactive Member [...] 2024 End: October 25, 2024 Sultana Finn DIRT BIKE RACER, DIRT BIKE RACER-C Attending Provider Active Start: October 25, 2024 [...] Inactive Member Role Status Dates Dr. Rae Agurire MD Primary Care Provider Acti ve Start: [...] ve Start: November 13, 2024 Sultana Aakash DIRT BIKE RACER, DIRT BIKE RACER-C Attending Provider Active Start: November 13, 2024 Sultana Aakash DIRT BIKE RACER, DIRT BIKE RACER-C Referring Provider Active Start: November 13, 2024 [...] 2024 End: November 13, 2024 Sultana Aakash DIRT BIKE RACER, DIRT BIKE RACER-C Attending Provider Active Start: November 13, 2024 End: November 13, 2024 Sultana Aakash DIRT BIKE RACER, DIRT BIKE RACER-C Referring Provider Active Start: November 13, 2024 End: November 13, 2024 Team Status: Inactive Member Role Status Dates Dr. Rae Aguirre MD Primary Care Provider Acti ve Start: November 22, 2024 End: November 22, 2024 Dr. Rae Aguirre MD Referring Provider Active Start: November 22, 2024 End: November 22, 2024 Sultana Finn DIRT BIKE RACER, DIRT BIKE RACER-C Attending Provider Active Start: November 22, 2024 [...] Inactive Member Role Status Dates Dr. Rae Augirre MD Primary Care Provider Acti ve Start: [...] 2025 End: February 14, 2025 Sultana Finn DIRT BIKE RACER, DIRT BIKE RACER-C Attending Provider Active Start: February 14, 2025 [...] 2024 End: November 22, 2024 Sultana Finn DIRT BIKE RACER, DIRT BIKE RACER-C Attending Provider Active Start: November 22, 2024 [...] 2025 End: February 14, 2025 Sultana Finn DIRT BIKE RACER, DIRT BIKE RACER-C Attending Provider Active Start: February 14, 2025 [...] 2025 End: February 14, 2025 Sultana Finn DIRT BIKE RACER, DIRT BIKE RACER-C Attending Provider Active Start: February 14, 2025 [...] 2025 End: February 14, 2025 Sultana Finn DIRT BIKE RACER, DIRT BIKE RACER-C Attending Provider Active Start: February 14, 2025 [...] 2025 End: May 02, 2025 Sultana Finn DIRT BIKE RACER, DIRT BIKE RACER-C Attending Provider Active Start: May 02, 2025 [...] 2025 End: February 14, 2025 Sultana Finn DIRT BIKE RACER, DIRT BIKE RACER-C Attending physician Active Start: February 14, 2025 [...] 2025 End: May 02, 2025 Sultana Finn DIRT BIKE RACER, DIRT BIKE RACER-C Attending physician Active Start: May 02, 2025 End: May 02, 2025 Team Status: Active Member Role/Relationship Status Dates Dr. Rae Aguirre MD Primary care physician Act salile Start: May 30, 2025 Dr. Chelsea Anguiano [...] BE BASED ON THE PRIMARY CLINICAL RECORDS. [employer] [facility]. provides no warranty or guarantee of the accuracy or completeness of information in this document.
== END | disposition home or self-care (01) ==
LOC: NM 07:09
PROVIDERS: PCP Family Medicine; Referring Provider Internal Medicine Medical Oncology; Visit Provider Internal Medicine Medical Oncology
DX: C79.51 Secondary malignant neoplasm of bone (principal); C79.9 Secondary malignant neoplasm of unspecified site; C50.919 Malignant neoplasm of unspecified site of unspecified female breast
CPT/HCPCS: 78306; A9503

== ENCOUNTER → 2025-07-12 | Outpatient (CLI) | payer MEDICARE, BC, SELFPAY ==
--- NOTE | 2025-07-12 12:26 | ECHOLONC_ITS ---
Reason For Study ECHO/ONC Echo, Limited Study
== END | disposition home or self-care (01) ==
LOC: CVS 12:26
PROVIDERS: PCP Family Medicine; Referring Provider Internal Medicine Medical Oncology; Visit Provider Internal Medicine Medical Oncology
DX: Z01.818 Encounter for other preprocedural examination (principal)
CPT/HCPCS: 93308; 93356

== ENCOUNTER 2025-07-31 02:50 | Inpatient (IN) | payer MEDICARE, BC, SELFPAY ==
[2025-07-31] VITALS (18 sets, daily range): BP systolic 131–170; BP diastolic 48–91; PULSE 78–131; RESP 16–18; TEMP 36.9–39.4; O2SAT 93–97; BMI 36.1; BMI 39.1
--- NOTE | 2025-07-31 02:57 | EDS_ITS ---
HPI History of Present Illness Chief Complaint: Fever Informant: patient, spouse/S.O. and family Narrative Narrative: Patient is a 70-year-old female with history of hypertension and type 2 diabetes. She also has a history of metastatic breast cancer. Patient states she was on oral chemo pill for multiple years and was recently changed to an infusion during the last 2 weeks. Ever since the infusion began she has been having weakness with nausea and severe fatigue. Family states recently she has had a change in mental status and is confused and there is concern that she may be severely dehydrated from the recent changes to her medication. Therefore she was brought in for evaluation Patient does not offer much history upon arrival as she has a depressed/confused affect [facility] Medical History Breast cancer metastasized to bone Pain of right humerus Abdominal cramping Cough Mental status alteration Encounter for education Wears glasses Marijuana use Thyroid disease Diabetes High cholesterol Non-smoker CPAP (continuous positive airway pressure) dependence Asthma History of echocardiogram History of stress test Hypertension Cardiology follow-up encounter Right kidney mass Left lower lobe pulmonary nodule Bone metastases Atherosclerotic heart disease of [place] coronary artery without angina pectoris TIA (transient ischemic attack) Coronary artery vasospasm Essential hypertension Elevated alkaline phosphatase level History of kidney stones Hx of cholecystitis Diabetes mellitus Hot flashes related to aromatase inhibitor therapy Malignant neoplasm of right breast, stage 2 Chest pain RBBB Vitamin D deficiency GERD (gastroesophageal reflux disease) Osteoarthritis Acute asthma exacerbation Nephrolithiasis Hypothyroidism HLD (hyperlipidemia) Depression Diabetes mellitus, type II Morbid obesity with BMI of 40.0-44.9, adult Sleep apnea Acquired absence of bilateral breasts and nipples Personal history of breast cancer Home Medications ?Medication ?Instructions ?Recorded ?Last Taken ?Type losartan 100 mg tablet 100 mg PO DAILY 07/02/13 History metformin 1,000 mg tablet 1,000 mg PO BIDCM 07/02/13 1 History xfqyponv-lsl-iaxvn acid 0.4 1 ea PO QHS 07/02/13 Unkno wn History mg-lycopene 300 mcg-lutein 250 mcg tablet albuterol sulfate 90 mcg/actuation 2 puff inhalation Q 4H PRN PRN 07/09/15 Unknown History aerosol inhaler Shortness Of Breath atorvastatin 80 mg tablet 80 mg PO QHS 07/09/15 History ergocalciferol (vitamin D2) 1,250 50,000 unit PO SUWE 07/09/15 Unknown History mcg (50,000 unit) capsule metoprolol succinate 25 mg 12.5 mg PO DAILY 07/09/15 1 History tablet,extended release 24 hr zolpidem 5 mg tablet 10 mg PO QHS PRN PRN Sleep 0 12/07/16 Unknown History albuterol sulfate 0.63 mg/3 mL 0.63 mg inhalation Q4H 07/03/19 Unknown History solution for nebulization cyclobenzaprine 10 mg tablet 10 mg PO BID PRN muscle s pasm #10 04/22/21 Unknown Rx tabs lidocaine-prilocaine 2.5 %-2.5 % 1 applic topical ONCE PRN port 05/23/21 Unknown Rx topical cream access 30 days #30 grams aspirin 325 mg tablet 325 mg PO DAILY 01/04/22 Unk nown History lorazepam 0.5 mg tablet 0.5 mg PO QHS 04/19/22 Unkno wn History meclizine 25 mg tablet (Dramamine 25 mg PO DAILY PRN d izziness 04/19/22 Unknown History (meclizine)) levothyroxine 150 mcg tablet 150 mcg PO MOTUWETHFRSA 0 04/26/22 Unknown History sertraline 100 mg tablet (Zoloft) 150 mg PO DAILY 01/12 10/04 Unknown History oxycodone 5 mg capsule 10 mg PO Q4H PRN Pain Unknown History insulin glargine 100 unit/mL (3 50 unit subcut QPM Unknown History mL) subcutaneous pen (Basaglar KwikPen U-100 Insulin) tamoxifen 20 mg tablet 100 mg (5 x 20 mg) PO QDAY 3 0 days 05/06/25 Unknown Rx #150 tabs ondansetron 4 mg disintegrating 4 mg PO Q8H PRN nausea and 07/17/25 Unknown Rx tablet vomiting #30 tabs prochlorperazine maleate 5 mg 5 mg PO TID PRN nausea a nd 07/17/25 Unknown Rx tablet (Compazine) vomiting #30 tabs fulvestrant 250 mg/5 mL 500 mg IM QMONTH 07/31/25 Un known History intramuscular syringe (Faslodex) glimepiride 4 mg tablet 4 mg PO DAILY 07/31/25 Unkno wn History insulin aspart U-100 100 unit/mL 5 unit subcut TID Unknown History (3 mL) subcutaneous pen (Novolog FlexPen U-100 Insulin aspart) lactulose 10 gram/15 mL oral 30 ml PO DAILY PRN consti pation 07/31/25 Unknown History solution (Constulose) methadone 10 mg tablet 10 mg PO Q12H pain 07/31/25 Unknown History pen needle, diabetic 31 gauge x 07/31/25 Unknown Hist ory 5/16 (Ultra-Fine Pen Needle) zolpidem 10 mg tablet 10 mg PO QHS 07/31/25 Unknow n History Allergy/AdvReac Type Severity Reaction Status Date / Time Yhzajti-HPU-MoW Reductase AdvReac Intermediate elevated Verified 07/31/25 02:53 Inhibitor (Olheptm-Dxl-Rlj liver Reductase Inhibitor) enzymes Family History Father Myocardial infarction Sudden cardiac , Onset Age: 57 Brother Myocardial infarction CAD (coronary artery disease) Sister Myocardial infarction CAD (coronary artery disease) Uterine cancer Mother Ovarian cancer Sister Cancer Surgical History Hx of appendectomy Hx of right mastectomy History of bilateral mastectomy History of left heart catheterization (LHC) (~07/23/11) History of cholecystectomy History of hysterectomy Social History Smoking Status: Never smoker alcohol intake: never substance use type: does not use caffeine: Yes Type: tea Number of servings: 6 ROS ROS ED Constitutional Constitutional ED: Reports other Details: Positive fatigue ; Denies chills or fever(s) Eyes Eyes: Denies change in vision ENT ENT ED: Denies rhinorrhea or sore throat Cardiovascular Cardiovascular: Denies chest pain Respiratory/Chest Respiratory/Chest: Denies cough or dyspnea Gastrointestinal Gastrointestinal: Reports nausea; Denies abdominal pain, diarrhea or vomiting Genitourinary Genitourinary ED: Denies dysuria Musculoskeletal Musculoskeletal: Reports myalgias Integumentary Denies rash Neurologic Neurologic: Reports weakness; Denies headache(s) Hematologic/Lymphatic Hematologic/Lymphatic: Denies easy bleeding or easy bruising EXAM Physical Exam Const Vital Signs: 07/31/25 02:53 07/31/25
--- NOTE | 2025-07-31 02:57 | EX.ED.DYSGE1 ---
HPI History of Present Illness Chief Complaint: Fever Informant: patient, spouse/S.O. and family Narrative Narrative: Patient is a 70-year-old female with history of hypertension and type 2 diabetes. She also has a history of metastatic breast cancer. Patient states she was on oral chemo pill for multiple years and was recently changed to an infusion during the last 2 weeks. Ever since the infusion began she has been having weakness with nausea and severe fatigue. Family states recently she has had a change in mental status and is confused and there is concern that she may be severely dehydrated from the recent changes to her medication. Therefore she was brought in for evaluation Patient does not offer much history upon arrival as she has a depressed/confused affect [facility] Medical History Breast cancer metastasized to bone Pain of right humerus Abdominal cramping Cough Mental status alteration Encounter for education Wears glasses Marijuana use Thyroid disease Diabetes High cholesterol Non-smoker CPAP (continuous positive airway pressure) dependence Asthma History of echocardiogram History of stress test Hypertension Cardiology follow-up encounter Right kidney mass Left lower lobe pulmonary nodule Bone metastases Atherosclerotic heart disease of [place] coronary artery without angina pectoris TIA (transient ischemic attack) Coronary artery vasospasm Essential hypertension Elevated alkaline phosphatase level History of kidney stones Hx of cholecystitis Diabetes mellitus Hot flashes related to aromatase inhibitor therapy Malignant neoplasm of right breast, stage 2 Chest pain RBBB Vitamin D deficiency GERD (gastroesophageal reflux disease) Osteoarthritis Acute asthma exacerbation Nephrolithiasis Hypothyroidism HLD (hyperlipidemia) Depression Diabetes mellitus, type II Morbid obesity with BMI of 40.0-44.9, adult Sleep apnea Acquired absence of bilateral breasts and nipples Personal history of breast cancer Home Medications ?Medication ?Instructions ?Recorded ?Last Taken ?Type losartan 100 mg tablet 100 mg PO DAILY 07/02/13 07/09/15 History metformin 1,000 mg tablet 1,000 mg PO BIDCM 07/02/13 07/09/15 History nkwpuymc-oro-qrcag acid 0.4 1 ea PO QHS 07/02/13 Unknown History mg-lycopene 300 mcg-lutein 250 mcg tablet albuterol sulfate 90 mcg/actuation 2 puff inhalation Q4H PRN PRN 07/09/15 Unknown History aerosol inhaler Shortness Of Breath atorvastatin 80 mg tablet 80 mg PO QHS 07/09/15 07/08/15 History ergocalciferol (vitamin D2) 1,250 50,000 unit PO SUWE 07/09/15 Unknown History mcg (50,000 unit) capsule metoprolol succinate 25 mg 12.5 mg PO DAILY 07/09/15 07/09/15 History tablet,extended release 24 hr zolpidem 5 mg tablet 10 mg PO QHS PRN PRN Sleep 12/07/16 Unknown History albuterol sulfate 0.63 mg/3 mL 0.63 mg inhalation Q4H 07/03/19 Unknown History solution for nebulization cyclobenzaprine 10 mg tablet 10 mg PO BID PRN muscle spasm #10 04/22/21 Unknown Rx tabs lidocaine-prilocaine 2.5 %-2.5 % 1 applic topical ONCE PRN port 05/23/21 Unknown Rx topical cream access 30 days #30 grams aspirin 325 mg tablet 325 mg PO DAILY 01/04/22 Unknown History lorazepam 0.5 mg tablet 0.5 mg PO QHS 04/19/22 Unknown History meclizine 25 mg tablet (Dramamine 25 mg PO DAILY PRN dizziness 04/19/22 Unknown History (meclizine)) levothyroxine 150 mcg tablet 150 mcg PO MOTUWETHFRSA 04/26/22 Unknown History sertraline 100 mg tablet (Zoloft) 150 mg PO DAILY 02/09/23 Unknown History oxycodone 5 mg capsule 10 mg PO Q4H PRN Pain 05/03/23 Unknown History insulin glargine 100 unit/mL (3 50 unit subcut QPM 07/26/24 Unknown History mL) subcutaneous pen (Basaglar KwikPen U-100 Insulin) tamoxifen 20 mg tablet 100 mg (5 x 20 mg) PO QDAY 30 days 05/06/25 Unknown Rx #150 tabs ondansetron 4 mg disintegrating 4 mg PO Q8H PRN nausea and 07/17/25 Unknown Rx tablet vomiting #30 tabs prochlorperazine maleate 5 mg 5 mg PO TID PRN nausea and 07/17/25 Unknown Rx tablet (Compazine) vomiting #30 tabs fulvestrant 250 mg/5 mL 500 mg IM QMONTH 07/31/25 Unknown History intramuscular syringe (Faslodex) glimepiride 4 mg tablet 4 mg PO DAILY 07/31/25 Unknown History insulin aspart U-100 100 unit/mL 5 unit subcut TID 07/31/25 Unknown History (3 mL) subcutaneous pen (Novolog FlexPen U-100 Insulin aspart) lactulose 10 gram/15 mL oral 30 ml PO DAILY PRN constipation 07/31/25 Unknown History solution (Constulose) methadone 10 mg tablet 10 mg PO Q12H pain 07/31/25 Unknown History pen needle, diabetic 31 gauge x 07/31/25 Unknown History 5/16 (Ultra-Fine Pen Needle) zolpidem 10 mg tablet 10 mg PO QHS 07/31/25 Unknown History Allergy/AdvReac Type Severity Reaction Status Date / Time Hainjzo-DJR-ZgW Reductase AdvReac Intermediate elevated Verified 07/31/25 02:53 Inhibitor (Fxvxqzz-Mcm-Qdb liver Reductase Inhibitor) enzymes Family History Father Myocardial infarction Sudden cardiac , Onset Age: 57 Brother Myocardial infarction CAD (coronary artery disease) Sister Myocardial infarction CAD (coronary artery disease) Uterine cancer Mother Ovarian cancer Sister Cancer Surgical History Hx of appendectomy Hx of right mastectomy History of bilateral mastectomy History of left heart catheterization (LHC) (~07/23/11) History of cholecystectomy History of hysterectomy Social History Smoking Status: Never smoker alcohol intake: never substance use type: does not use caffeine: Yes Type: tea Number of servings: 6 ROS ROS ED Constitutional Constitutional ED: Reports other Details: Positive fatigue ; Denies chills or fever(s) Eyes Eyes: Denies change in vision ENT ENT ED: Denies rhinorrhea or sore throat Cardiovascular Cardiovascular: Denies chest pain Respiratory/Chest Respiratory/Chest: Denies cough or dyspnea Gastrointestinal Gastrointestinal: Reports nausea; Denies abdominal pain, diarrhea or vomiting Genitourinary Genitourinary ED: Denies dysuria Musculoskeletal Musculoskeletal: Reports myalgias Integumentary Denies rash Neurologic Neurologic: Reports weakness; Denies headache(s) Hematologic/Lymphatic Hematologic/Lymphatic: Denies easy bleeding or easy bruising EXAM Physical Exam Const Vital Signs: 07/31/25 02:53 07/31/25 02:53 07/31/25 03:00 Temperature 103 F H 103 F H Temperature Source Oral Oral Pulse Rate 107 H 110 H Respiratory Rate 18 18 Respiratory Effort Normal Respiratory Pattern Normal Blood Pressure 170/65 H 170/65 H Blood Pressure Mean 100 100 Pulse Ox 93 93 Oxygen Delivery Method Room Air Room Air 07/31/25 04:00 07/31/25 05:00 07/31/25 06:00 Temperature 103 F H 99.3 F H 99.3 F H Temperature Source Oral Oral Oral Pulse Rate 131 H 102 H 95 Respiratory Rate 16 16 16 Respiratory Effort Respiratory Pattern Blood Pressure 169/91 H 170/62 H 135/65 H Blood Pressure Mean 117 98 88 Pulse Ox 94 97 95 Oxygen Delivery Method Room Air Room Air Room Air 07/31/25 06:34 07/31/25 07:00 Temperature 98.6 F 99.1 F Temperature Source Oral Pulse Rate 94 93 Respiratory Rate 16 16 Respiratory Effort Respiratory Pattern Blood Pressure 147/63 H 132/60 H Blood Pressure Mean 91 84 Pulse Ox 95 97 Oxygen Delivery Method Room Air Positive well nourished, well developed and obese General Appearance ED: well developed; Negative for pallor Nutritional Appearance: obese HEENT Reports dry mucous membranes HEENT Narrative: Normocephalic atraumatic No tongue or lip swelling no oral lesions no airway edema or compromise; no secondary findings in the posterior pharynx to suggest infection Mouth ED: Yes dry mucous membranes Mouth: dry mucous membranes Eyes PERRL and EOMs intact bilaterally General Eye ED: Negative for scleral icterus Neck supple Neck Narrative: No nuchal rigidity or meningeal signs Chest Wall palpation of chest normal Resp normal respiratory effort and clear to auscultation bilaterally Resp Narrative: Breath sounds are diminished throughout but overall clear to auscultation Cardio regular rhythm Rate: tachycardic and other Other Details: Tachycardic rate with regular rhythm Radial and carotid pulses are equal and symmetric GI non-tender, non-distended and no masses GI Narrative: Abdomen is soft and nondistended with hypoactive bowel sound No voluntary guarding or rigidity or pulsatile mass No peritoneal signs Auscultation: hypoactive bowel sounds Palpation: soft Extremity normal to inspection Extremity Narrative: No sign of long bone injury such as bony deformity or joint effusion Neuro CN's II-XII intact bilaterally and no sensory deficits noted Neuro Narrative: Patient is slightly obtunded with GCS of 13. She received a score as she opens her eyes to speech and therefore receives a 3. She also is slightly confused receiving a score of 4. She moves all extremities and can follow commands and localize receiving a score of 6 Other than the mild confusion/obtundation there is no obvious focal neurologic deficit Sensorium / Orientation: orientation impaired Motor Exam: strength 5/5 throughout Psych Psych Narrative: Patient has a depressed/flat affect Skin no rashes or lesions noted Skin Narrative: Skin turgor slightly increased General Skin Exam: Negative for jaundice or pallor MDM MDM MDM Narrative Medical decision making narrative: Patient arrived to the ER hypertensive and tachycardic. It was noted that she had 103 fever upon arrival as well for which family nor patient noted. Based on her history of chemotherapy and fever there is concern for secondary infection such as COVID influenza RSV versus pneumonia versus UTI. Secondary to this basic blood work was obtained as well as a viral swab and chest x-ray. Chest x-ray revealed no obvious signs of infection. Urine sample showed +1 bacteria but no white blood cells going against a true urinary tract infection. Labs showed a potassium of 2.6 and a magnesium of 0.9 which correlate with dehydration from her chemotherapy infusion. However she does not have signs of acute kidney injury as her creatinine is normal. Patient's white blood cell count is 0.9 and neutrophil count is 0.3 indicating neutropenia but this is most likely related to her recent chemotherapy infusion. As there is a source for the fever with her being COVID-positive and there does not appear to be any other source of infection such as pneumonia or UTI we will hold off on antibiotics at this time even though she is neutropenic. The magnesium was replaced with 2 g by IV route and then following this 40 mill equivalents of IV potassium was ordered to replace the hypokalemia. With Tylenol the patient's temperature returned to a normal value and with this she had improvement of her tachycardia and blood pressure and improvement to her mental status. At this time with her extreme weakness from the COVID as well as the need for electrolyte replacement I do not feel that she is safe for home. Therefore the case was discussed with the hospitalist who agrees to accept her to their service for continued treatment while she recovers from COVID. At this time she is not hypoxic from it and therefore there is no need for supplemental oxygenation or airway stabilization. The plan of care was discussed with the patient and family who are agreeable to it Please note that I did reach out to her oncologist Dr. Calvillo but he did not return my page to discuss the patient's care History & Record Review Discussion w/independent historian: Patient, Family and Significant other Lab Data Attestation: I reviewed the patient's lab results. Labs: Laboratory Results - last 24 hr 07/31/25 07/31/25 04:42 04:54 WBC 0.9 L* RBC 3.54 L Hgb 11.0 L Hct 31.5 L MCV 89.0 MCH 31.1 MCHC 34.9 RDW Std Deviation 45.9 H RDW Coeff of Jazmine 14.5 Plt Count 187 MPV 9.2 Immature Gran % (Auto) 4.300 H Neut % (Auto) 32.9 L Lymph % (Auto) 30.9 [place] % (Auto) 22.3 H Eos % (Auto) 8.5 H Baso % (Auto) 1.1 H Absolute Neuts (auto) 0.3 L Absolute Lymphs (auto) 0.29 L Nucleated RBC % 3.2 Differential Comment SCANNED Diff Path Review May foll Platelet Estimate ADEQUATE Polychromasia RARE Sodium 134 Potassium 2.6 L* Chloride 101 Carbon Dioxide 22.3 Anion Gap 11 BUN 14 Creatinine 1.10 Estim Creat Clear Calc 55.65 Est GFR (MDRD) Non-Af 53 L BUN/Creatinine Ratio 13.0 Glucose 211 H Lactic Acid 1.2 Calcium 7.6 Magnesium 0.9 L* Procalcitonin 0.99 H Urine Color Yellow Urine Clarity Clear Urine pH 5.0 Ur Specific [place] 1.015 Urine Protein 30 H Urine Glucose (UA) 250 H Urine Ketones 5 H Urine Occult Blood 10 H Urine Nitrite Positive H Urine Bilirubin Negative Urine Urobilinogen Normal Ur Leukocyte Esterase Negative Urine RBC 0 SEEN Urine WBC 0 SEEN Ur Squamous Epith Cells 0-5 SEEN Urine Bacteria 1+ Urine Mucus 0 SEEN Radiography Diagnostic Testing: Clinical Impression(s) from Imaging Studies Chest X-Ray 07/31/25 04:25 IMPRESSION: There is no acute infiltrate or consolidation. Reading Location: [facility] Chest x-ray as interpreted by the emergency medicine physician reveals no acute infiltrate pneumothorax or pleural effusion Management Discussion w/another healthcare provider: Hospitalist Discharge Plan Triage Chief Complaint: Fever ED Provider: Clifton Perez Dx/Rx/DC Orders Clinical Impression: COVID-19, Pyrexia, Metastatic cancer, Acute hypokalemia, Hypomagnesemia, Neutropenia, Essential hypertension, Diabetes mellitus, type II, HLD (hyperlipidemia) Prescriptions: No Action albuterol sulfate 0.63 mg/3 mL solution for nebulization 0.63 mg INHALATION Q4H oxycodone 5 mg capsule 10 mg PO Q4H PRN (Reason: Pain) lidocaine-prilocaine 2.5-2.5 % cream 1 applic topical ONCE PRN (Reason: port access) 30 Days Qty: 30 2RF lorazepam 0.5 mg tablet 0.5 mg PO QHS meclizine [Dramamine (meclizine)] 25 mg tablet 25 mg PO DAILY PRN (Reason: dizziness) sertraline [Zoloft] 100 mg tablet 150 mg PO DAILY insulin glargine [Basaglar KwikPen U-100 Insulin] 100 unit/mL (3 mL) insulin pen 50 unit subcut QPM ondansetron 4 mg tablet,disintegrating 4 mg PO Q8H PRN (Reason: nausea and vomiting) Qty: 30 0RF prochlorperazine maleate [Compazine] 5 mg tablet 5 mg PO TID PRN (Reason: nausea and vomiting) Qty: 30 1RF metformin 1,000 MG tablet 1,000 mg PO BIDCM Patient Comments: LOWERS BLOOD SUGAR losartan 100 MG tablet 100 mg PO DAILY Patient Comments: BLOOD PRESSURE [id number]-swr-UT-lycopen-lutein 1 EACH tablet 1 ea PO QHS Patient Comments: MINERAL SUPPLEMENT atorvastatin 80 MG tablet 80 mg PO QHS Patient Comments: cholesterol metoprolol succinate 25 MG tablet 12.5 mg PO DAILY Patient Comments: hypertension ergocalciferol (vitamin D2) 50,000 UNIT capsule 50,000 unit PO SUWE Patient Comments: supplement albuterol sulfate 1 INHALER inhaler 2 puff inhalation Q4H PRN PRN (Reason: Shortness Of Breath) Patient Comments: shortness of breath aspirin 325 mg tablet 325 mg PO DAILY Patient Comments: heart health levothyroxine 150 mcg tablet 150 mcg PO MOTUWETHFRSA Patient Comments: thyroid Rx Instructions: 300mcg on SASU zolpidem 5 MG tablet 10 mg PO QHS PRN PRN (Reason: Sleep) cyclobenzaprine 10 mg tablet 10 mg PO BID PRN (Reason: muscle spasm) Qty: 10 0RF lactulose [Constulose] 10 gram/15 mL solution 30 ml PO DAILY PRN (Reason: constipation) zolpidem 10 mg tablet 10 mg PO QHS fulvestrant [Faslodex] 250 mg/5 mL syringe 500 mg IM QMONTH Rx Instructions: may divide dose into 2 equally divided injections; one into each buttock glimepiride 4 mg tablet 4 mg PO DAILY methadone 10 mg tablet 10 mg PO Q12H (DME) pen needle, diabetic [Ultra-Fine Pen Needle] 31 gauge x 5/16 needle 1 pen needle MISCELLANEOUS BID insulin aspart U-100 [Novolog FlexPen U-100 Insulin] 100 unit/mL (3 mL) insulin pen 5 unit subcut TID tamoxifen 20 mg tablet 100 mg PO QDAY 30 Days Qty: 150 5RF Primary Care Provider: Ray Aguirre Referrals: Ray Aguirre MD [Primary Care Provider, Family Practice] Print Language: Slovenian
--- OUTSIDE RECORDS SUMMARY | 2025-07-31 03:21 | XMS RPT_ITS | CCD ---
Author Organization [facility] Care Team Providers Care Delinquent Tax Collector Assistant Name Role Phone PROVIDER, UNKNOWN Admitting Unavailable [...] Provider Karli, Dr. Sanches Attending Provider Aakash MIRANDA NP-Melissa Weinberg Attending Provider Dr. Kang Pagan Attending Provider Dr. Adolfo Aguirre Primary Care Provider [phone] Dr. Adolfo Aguirre Referring Provider Karli, Dr. Sanches Attending Provider Dr. Adolfo Aguirre Primary Care Provider [phone] Dr. Adolfo Aguirre Referring Provider Karli, Dr. Sanches Attending Provider Dr. Harrison Gomez Attending Provider [phone] Nereida, BURGLAR ALARM INSTALLER-C Ngozi Referring Provider Unavail able TAVARES FONTENOT Attending Unavailable RAE AGUIRRE Referring Unavailvito e RAE AGUIRRE Primary Care Unavailabl e Timothy, Dr. Mata Primary Care Provider Timothy, Dr. Mata Referring Provider Karli, Dr. Sanches Attending Provider Aakash BURGLAR ALARM INSTALLER, BURGLAR ALARM INSTALLER-C Sultana Attending Provider Timothy, Dr. Mata Primary Care Provider Timothy, Dr. Mata Referring Provider Karli, Dr. Sanches Attending Provider Dr. Chelsea Anguiano Attending Provider Timothy, Dr. Mata Primary Care Provider Timotyh, Dr. Mata Referring Provider Karli, Dr. Sanches Attending Provider Aakash BURGLAR ALARM INSTALLER, BURGLAR ALARM INSTALLER-C Sultana Attending Provider Dr. Rae Aguirre MD Primary Care Provider Dr. Rae Aguirre MD Referring Provider Karli FELICIANO, Dr. Sanches Attending Provider Dr. Kang Pagan MD Attending Provider Aakash BURGLAR ALARM INSTALLER-C, Sultana Attending Provider Dr. Chelsea Anguiano DO Attending Provider Dr. Kang Pagan MD Referring Provider Dr. Trever Terry DO Attending Provider Dr. Trever Terry DO Emergency Provider Dr. Rae Aguirre MD Attending Provider Aakash BURGLAR ALARM INSTALLER-C, Sultana Referring Provider Dr. Chelsea Anguiano DO Attending Provider Dr. Kang Pagan MD Referring Provider Timothy FELICIANO, Dr. Bell Primary Care Provider Timothy FELICIANO, Dr. Bell Referring Provider Karli FELICIANO, Dr. Sanches Attending Provider [place] , Dr. Banks Attending Provider Latasha FELICIANO, Dr. Kapadia Referring Provider Dank AVENDANO, Dr. Banks Attending Provider Latasha FELICIANO, Dr. Kapadia Referring Provider Latasha FELICIANO, Dr. Kapadia Referring Provider Timothy FELICIANO, Dr. Bell Primary Care Provider Timothy FELICIANO, Dr. Bell Referring Provider [phone] Aakash BURGLAR ALARM INSTALLER-C, Sultana Attending Provider Dank AVENDANO, Dr. Banks Referring Provider Latasha FELICIANO, Dr. Kapadia Referring Provider Timothy FELICIANO, Dr. Bell Primary Care Provider Timothy FELICIANO, Dr. Bell Referring Provider Aakash BURGLAR ALARM INSTALLER-C, Sultana Attending Provider Latasha FELICIANO, Dr. Kapadia Referring Provider Timothy FELICIANO, Dr. Bell Primary Care Provider Timothy FELICIANO, Dr. Bell Referring Provider [phone] Karli FELICIANO, Dr. Sanches Attending Provider Latasha FELICIANO, Dr. Kapadia Referring Provider Timothy FELICIANO, Dr. Bell Primary Care Physicia n Dank AVENDANO, Dr. Banks Attending Physician Dank AVENDANO, Dr. Banks Referring Provider Timothy FELICIANO, Dr. Bell Referring Provider [phone] Aakash BURGLAR ALARM INSTALLER-C, Sultana Attending Physician Karli FELICIANO, Dr. Sanches Attending Physician Latasha FELICIANO, Dr. Kapadia Referring Provider Timothy FELICIANO, Dr. Bell Primary Care Physicia n Timothy FELICIANO, Dr. Bell Referring Provider Dr. Chelsea Anguiano DO Attending Physician Aakash BURGLAR ALARM INSTALLER-C, Sultana Attending Physician Karli FELICIANO, Dr. Sanches Referring Provider Latasha FELICIANO, Dr. Kapadia Referring Provider Rae Aguirre Referring Unavailable PrahMyron Attending Unavailable Ranney, Christopher Primary Care Unavailable Kang Pagan Referring Unavailable PraMyron cross Attending Unavailable Ranney, Christopher Primary Care Unavailable Chelsea Anguiano Attending Unavailable Ranney, Christopher Referring Unavailable Ranney, Christopher Primary Care Unavailable Ranney, Christopher Referring Unavailable Myron Calvillo Attending Unavailable Ranney, Christopher Primary Care Unavailable Myron Calvillo Attending Unavailable Myron Calvillo Referring Unavailable Ranney, Christopher Primary Care Unavailable Chelsea Anguiano Referring Unavailable Chelsea Anguiano Attending Unavailable Ranney, Christopher Primary Care Unavailable DankChelsea slade Referring Unavailable Chelsea Anguiano Attending Unavailable Ranney, Christopher Primary Care Unavailable Chelsea Anguiano Attending Unavailable Ranney, Christopher Primary Care Unavailable Ranney, Christopher Primary Care Unavailable Trever Terry Attending Unavailable Ranney, Christopher Referring Unavailable PrahMyron Attending Unavailable Ranney, Christopher Primary Care Unavailable Chelsea Anguiano Attending Unavailable Dank, Chelsea Referring Unavailable Ranney, Christopher Primary Care Unavailable Harrison Gomez Attending Unavailable Ranney, Christopher Primary Care Unavailable Ranney, Christopher Referring Unavailable PrahMyron Attending Unavailable Ranney, Christopher Primary Care Unavailable Aakash BURGLAR ALARM INSTALLER, Sultana Attending Unavailable Ranney, Christopher Referring Unavailable Ranney, Christopher Primary Care Unavailable Ranney, Christopher Referring Unavailable PrahMyron Attending Unavailable Ranney, Christopher Primary Care Unavailable Aakash BURGLAR ALARM INSTALLER, Sultana Attending Unavailable Ranney, Christopher Referring Unavailable Ranney, Christopher Primary Care Unavailable Aakash BURGLAR ALARM INSTALLER, Sultana Attending Unavailable Ranney, Christopher Referring Unavailable Ranney, Christopher Primary Care Unavailable Chelsea Anguiano Attending Unavailable Dank, Chelsea Referring Unavailable Ranney, Christopher Primary Care Unavailable Chelsea Anguiano Attending Unavailable Ranney, Christopher Referring Unavailable Ranney, Christopher Primary Care Unavailable Ranney, Christopher Referring Unavailable Prah, Myron Attending Unavailable Ranney, Christopher Primary Care Unavailable Ranney, Christopher Referring Unavailable Prah, Myron Attending Unavailable Ranney, Christopher Primary Care Unavailable Ranney, Christopher Referring Unavailable Prah, Myron Attending Unavailable Ranney, Christopher Primary Care Unavailable Ranney, Christopher Attending Unavailable Ranney, Christopher Referring Unavailable Ranney, Christopher Primary Care Unavailable Ranney, Christopher Referring Unavailable Ranney, Christopher Primary Care Unavailable Prah, Myron Attending Unavailable Ranney, Christopher Attending Unavailable Ranney, Christopher Referring Unavailable Ranney, Christopher Primary Care Unavailable Ranney, Christopher Referring Unavailable Prah, Myron Attending Unavailable Ranney, Christopher Primary Care Unavailable Ranney, Christopher Referring Unavailable Prah, Myron Attending Unavailable Ranney, Christopher Primary Care Unavailable Ranney, Christopher Referring Unavailable Kang Pagan Attending Unavailable Ranney, Christopher Primary Care Unavailable Ranney, Christopher Referring Unavailable Prah, Myron Attending Unavailable Ranney, Christopher Primary Care Unavailable Aakash BURGLAR ALARM INSTALLER, Sultana Attending Unavailable Ranney, Christopher Referring Unavailable Ranney, Christopher Primary Care Unavailable Prah, Myron Attending Unavailable PrahMyron Referring Unavailable Ranney, Christopher Primary Care Unavailable Aakash BURGLAR ALARM INSTALLER, Sultana Attending Unavailable Aakash BURGLAR ALARM INSTALLER, Sultana Referring Unavailable Ranney, Christopher Primary Care Unavailable Allergies Allergy Classification Reported Allergen(s) Allergy Type Date of Onset Reaction(s) Facility (20 sources) Fwwtwar-Dak-Tfw Reductase Inhibitor; Translations: [Utdvowy-Emr-Vi a Reductase Inhibitor] Propensity to adverse reactions 2 elevated liver enzymes (1 source) Hmg-Coa Reductase Inhibitors (Statins); Translations: [PLDZEGA-LUW-CJ A REDUCTASE INHIBITORS] Propensity to adverse reactions to drug (disorder) 0 [facility] Repository Medications Current Medications Medication [...] DAY as needed for muscle spasm 10 0 April 22, 2021 12:00am Complies with drug therapy ergocalciferol 1.25 mg oral capsule (20 sources) Provitamin D2 Compound Start: 07-09-2015 Ergocalciferol (Vitamin D2) 50,000 UNIT capsule Active 42289 U PO SUWE July 09, 2015 12:00am [...] ml insulin glargine 100 unt/ml pen injector (13 sources) Insulin Analog Start: 07-26-2024 Insulin Glargi ne (Yamilkaaglangie Hillman U-100 Insulin) 100 unit/mL (3 mL) insulin [...] TOPICAL ONCE as needed for port access May 23, 2021 12:00am 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 malignant neoplasm of unspecified site Malignant neoplasm of unspecified site of unspecified female breast Complies with drug therapy Start: 05-23-2021 Lidocaine-Pril ocaine Active 1 APPLIC TOPICAL ONCE May 23, 2021 12:00am LORazepam 0.5 mg oral tablet (20 sources) Benzodiazepine Start: 04-19-2022 take 1 tablet [...] therapy meclizine hydrochloride 25 mg oral tablet (20 sources) Antiemetic Start: 04-19-2022 take 1 tablet [...] 2022 3:01pm metoclopramide 5 mg oral tablet (13 sources) Dopamine-2 Receptor Antagonist Start: 11-05-2024 take 1 tablet by mouth every eight hours as needed for nausea and vomiting Metoclopramide Hcl (Reglan) 5 mg tablet Active 5 mg PO EVERY 8 HOURS NEEDED as needed for nausea and vomiting 90 30 November 05, 2024 11:58pm Complies with drug therapy 24 hr metoprolol succinate 25 mg extended release oral tablet (20 sources) beta-Adrenergic Ruddy Start: 07-09-2015 Metoprolol Succinate 25 MG tablet Active 12.5 mg PO DAILY July 09, 2015 12:00am Complies with drug therapy Start: 07-09-2015 take 12.5 mg by mout h once daily Metoprolol Succinate Active 12.5 MG PO DAILY July 09, 2015 12:00am Xafusard-Mrz-Mp-Lycopen-Lute in (9 sources) Start: 07-02-2013 Wuubongh-Wcf-Ly-Lycopen-Lute in Active 1 EACH PO AT BEDTIME July 02, 2013 8:21am Start: 07-02-2013 Fvvzhvki-Bvv-I u-Pobokek-Ofljow Active 1 EACH PO AT BEDTIME July 01, 2013 11:00pm Start: 07-02-2013 Phmhjbys-Gqe-I w-Ycoqukk-Jxhbrc Active 1 EACH PO AT BEDTIME July 02, 2013 12:00am Umkubhnr-Uhn-Ux-Lycopen-Lute in 1 EACH tablet (13 sources) Start: 07-02-2013 Srhittmd-Dsn-Dz-Lycopen-Lute in 1 EACH tablet Active 1 NMA PO AT BEDTIME July 02, 2013 12:00am Complies with drug therapy Start: 07-02-2013 Xixsyztd-Uzf-E e-Gitwvbq-Xspcea 1 EACH tablet Active 1 NMA PO AT BEDTIME July 02, 2013 12:00am ondansetron 4 mg oral tablet (9 sources) Serotonin-3 Receptor Antagonist Start: 02-12-2025 take [...] sources) Factor Xa Inhibitor Start: 11-30-2021 End: 08-08-2022 take 1 tablet by mouth twice daily [...] 3:20pm docusate sodium 50 mg / sennosides, snf 8.6 mg oral tablet (20 sources) Start: [...] Comment on above: CT c/a/p 05/23/2023 r eviewed, chest and abdomen is benign. Acute cerebrovascular [...] Radiation therapy to sacrum/iliac bones.Comes for follow up.[facility] report reviewed, ESR1 negative, TMB 10. Discuss [...] Radiation therapy to sacrum/iliac bones.Comes for follow up.[facility] report reviewed, ESR1 negative, TMB 10. On High Dose Tamoxifen.CBC and chemistry reviewed, OK for therapy. H/O R breast cancer. Her2 2+ by IHC, ER positive.Progressive disease s/p Radiation therapy to sacrum/iliac bones.[facility] report reviewed, ESR1 negative, TMB 10. On High Dose Tamoxifen.Comes for follow up. PET/CT on 07/02/2025 shows Progressive bone metastases. Discussed options of therapy vs observation and supportive care, Pt wants therapy.Suggested therapy with Enhertu for Her2 2+ disease. Pt agrees to proceed. Conduction disorders (20 sources) Right bundle branch block; Translations: [Unspecified right bundle-branch block] 07-03-2019 Chronic Coronary atherosclerosis and other heart disease (20 sources) Coronary atherosclerosis; Translations: [Atherosclerotic heart disease of [place] coronary artery without angina pectoris] 06-12-2020 Chronic Comment on above: Mild non obstructive CAD per cath 07/23/11 Deficiency and other anemia (17 sources) Anemia; Translations: [Anemia, unspecified] 05-03-2023 Episodic [...] complications] 07-03-2019 Chronic Diabetes mellitus without complication (13 sources) Acute hyperglycemia; Translations: [Hyperglycemia, unspecified] 11-13-2024 Episodic Diseases of white blood cells (19 sources) Neutropenia; Translations: [Neutropenia, unspecified] 10-26-2022 Chronic [...] 08-17-2021 Episodic Genitourinary symptoms and ill-defined conditions (20 sources) Dysuria; Translations: [Dysuria] Episodic Maintenance chemotherapy; radiotherapy (20 sources) H/O: malignant neoplasm; Translations: [Encounter for antineoplastic immunotherapy] Onset: 07-17-2025 Chronic Comment on above: EF 0n 08/10/2021 60% Malaise and fatigue (1 source) Other fatigue; Translations: [Other fatigue] Onset: 07-17-2025 Episodic Nonspecific chest pain (20 sources) Right sided chest pain; Translations: [Chest pain, unspecified] Episodic Comment on above: R/O metastatic disea se. Other aftercare (2 sources) Other retirement (current) drug therapy; Translations: [Other technician terminal and repeater (current) drug therapy] Onset: 09-20-2024 Episodic Other bone disease and musculoskeletal deformities (16 sources) Pain in right arm; Translations: [Other [...] nodule] 04-23-2021 Episodic Other lower respiratory disease (20 sources) Cough; Translations: [Cough] 05-03-2023 Episodic Other nutritional; endocrine; and metabolic disorders (20 sources) Body mass index 40+ - severely obese; Translations: [Morbid (severe) obesity due to excess calories] 07-03-2019 Chronic Other nutritional; endocrine; and metabolic disorders (20 sources) Hypocalcemia; Translations: [Hypocalcemia] 02-09-2022 Chronic Other nutritional; endocrine; and metabolic disorders (2 sources) Hypocalcemia; Translations: [Hypocalcemia] Chronic Other skin disorders (20 sources) Skin nodule; Translations: [Localized swelling, mass and lump, unspecified] 07-06-2021 Episodic Comment on above: skin nodule in right mastectomy scar, biopsy at [facility] showed metastatic breast cancer. Other skin [...] and nipples] 07-03-2019 Episodic Residual codes; unclassified (20 sources) Altered mental status; Translations: [Altered mental status, unspecified] 04-22-2022 Episodic Residual codes; unclassified (1 source) Altered mental status, unspecified; Translations: [Altered mental status] Episodic Residual codes; unclassified (19 sources) Confusional state; Translations: [Disorientation, unspecified] 08-31-2022 [...] up, has new pain in R scapular. Received radiation t o R femur metastases and R humerus from 06/11/2021 to 06/17/2021.Xgeva was discontinued after 01/11/2023.Clinically stable.Bone scan 11/13/2024 reviewed, ?new L iliac lesion.PET/CT reviewed, new hypermetabolic activity in the sacral/iliac bones. Gets pain in the lower back on and off.Completed RT to sacrum/iliac bones on 02/12/2025.Comes for follow up.Bone scan on 06/17/2025 shows progressive disease compared to 2020.Pet/CT on 07/02/2025 reviewed, shows progressive bony disease.Progressive bony disease. Secondary malignancies (20 sources) Secondary malignant neoplasm of bone; Translations: [Secondary malignant neoplasm of bone and bone marrow] Onset: 07-08-2025 Chronic Secondary malignancies (20 sources) Secondary malignant neoplasm of unspecified site; Translations: [Other malignant neoplasm without specification of site] Onset: 07-08-2025 Chronic Spondylosis; intervertebral disc disorders; other back problems (20 sources) Backache; Translations: [Dorsalgia, unspecified] 04-22-2021 Episodic Thyroid disorders (20 sources) Hypothyroidism; Translations: [Hypothyroidism, unspecified] 07-03-2019 Chronic Transient cerebral ischemia (20 sources) Transient cerebral ischemia; Translations: [Transient cerebral ischemic attack, unspecified] 05-20-2021 Chronic Comment on above: 2019 Unclassified (9 sources) C79.9 - Secondary malignant neoplasm of [...] Test Name Value Interpretation Reference Range Facility CBC W/Diff, Automatedon 11-0 Absolute Lymph 0.98 X10 3/uL Normal 0.83-4.51 Comment on above: Performed By: #### L 500.4050, L100.0100 #### [id number] [place], [address] Absolute Neut 4.7 X10 3/uL Normal 2.0-7.7 Comment on above: Performed By: #### L 500.4050, L100.0100 #### [id number] [place], [address] Basophils/100 WBC (Bld) 0.5 % Normal 0-1 Comment on above: Performed By: #### L 500.4050, L100.0100 #### [id number] [place], [address] Eosinophils/100 WBC (Bld) 2.4 % Normal 0-5 Comment on above: Performed By: #### L 500.4050, L100.0100 #### [id number] [place], [address] Erythrocyte distribution width (RBC) [Ratio] 14.4 % Normal 11.6-14.6 Comment on above: Performed By: #### L 500.4050, L100.0100 #### [address] [place], [address] Hematocrit (Bld) [Volume fraction] 32.7 % Low 37-47 Comment on above: Performed By: #### L 500.4050, L100.0100 #### [address] [place], [address] Hemoglobin (Bld) [Mass/Vol] 10.4 g/dL Low 12.0-15.0 Comment on above: Performed By: #### L 500.4050, L100.0100 #### [id number] [place], [address] IG% 0.800 Normal 0.0-0.9 Comment on above: Result Comment: IG% - Immature Granulocytes (promyelocytes, myelocytes andmetamyelocytes) > 1% indicates that a LEFT SHIFT is Present. Performed By: #### L 500.4050, L100.0100 #### [id number] [place], [address] Lymphocytes/100 WBC (Bld) 15.6 % Low 19-41 Comment on above: Performed By: #### L 500.4050, L100.0100 #### [address] [place], [address] MCH (RBC) [Entitic mass] 30.6 pg Normal 27.0-32.0 Comment on above: Performed By: #### L 500.4050, L100.0100 #### [address] [place], [address] MCHC (RBC) [Mass/Vol] 31.8 g/dL Low 32-[address] [facility] Comment on above: Performed By: #### L 500.4050, L100.0100 #### [id number] [place], [address] MCV (RBC) [Entitic vol] 96.2 fL Normal 81-99 Comment on above: Performed By: #### L 500.4050, L100.0100 #### [address] [place], [address] Monocytes/100 WBC (Bld) 6.2 % Normal 0-10 Comment on above: Performed By: #### L 500.4050, L100.0100 #### [address] [place], [address] Neutrophils/100 WBC (Bld) 74.5 % High 47-70 Comment on above: Performed By: #### L 500.4050, L100.0100 #### [address] [place], [address] Nucleated RBC (Bld) [#/Vol] 0 10*3/uL Normal 0-5 Comment on above: Performed By: #### L 500.4050, L100.0100 #### [address] [place], [address] Platelet mean volume (Bld) [Entitic vol] 9.6 fL Normal 6.2-12.0 Comment on above: Performed By: #### L 500.4050, L100.0100 #### [address] [place], [address] Platelets (Bld) [#/Vol] 207 10*3/uL Normal 150-450 Comment on above: Performed By: #### L 500.4050, L100.0100 #### [address] [place], [address] RBC (Bld) [#/Vol] 3.40 10*6/uL Low 4.2-5.4 [facility] Comment on above: Performed By: #### L 500.4050, L100.0100 #### [address] [place], [address] RDW SD 50.6 fl High 35.1-43.9 Comment on above: Performed By: #### L 500.4050, L100.0100 #### [address] [place], [address] WBC (Bld) [#/Vol] 6.3 10*3/uL Normal 4.4-11.0 [facility] Comment on above: Performed By: #### L 500.4050, L100.0100 #### [address] [place], [address] Comprehensive Metabolic Prof iaon 07-17-2025 Albumin [Mass/Vol] 3.5 g/dL Normal 3.4-4.8 [facility] Comment on above: Performed By: #### L 500.4050, L100.0100 #### [id number] [place], [address] Albumin/Globulin [Mass ratio] 1.1 {ratio} Normal 0.9-2.4 Comment on above: Performed By: #### L 500.4050, L100.0100 #### [address] [place], [address] ALK PHOS 217 U/L High 35-104 Comment on above: Performed By: #### L 500.4050, L100.0100 #### [address] [place], [address] ALT [Catalytic activity/Vol] 25 U/L Normal <=34 Comment on above: Performed By: #### L 500.4050, L100.0100 #### [address] [place], [address] AST [Catalytic activity/Vol] 47 U/L High <=31 Comment on above: Performed By: #### L 500.4050, L100.0100 #### [address] [place], [address] Bilirubin [Mass/Vol] 0.21 mg/dL Normal 0.00-1.30 [facility] Comment on above: Performed By: #### L 500.4050, L100.0100 #### [address] [place], [address] BUN/CRE 16.6 RATIO Normal 10-20 Comment on above: Performed By: #### L 500.4050, L100.0100 #### [address] [place], [address] Calcium [Mass/Vol] 9.3 mg/dL Normal 7.6-11.0 [facility] Comment on above: Performed By: #### L 500.4050, L100.0100 #### [address] [place], [address] Chloride [Moles/Vol] 100 mmol/L Normal 98-108 [facility] Comment on above: Performed By: #### L 500.4050, L100.0100 #### [address] [place], [address] CO2 [Moles/Vol] 25.5 mmol/L Normal 21.0-32.0 Comment on above: Performed By: #### L 500.4050, L100.0100 #### [address] [place], [address] Creatinine [Mass/Vol] 1.21 mg/dL High 0.70-1.[address] [facility] Comment on above: Performed By: #### L 500.4050, L100.0100 #### [address] [place], [address] ECRCL 51.11 ml/min Normal 50-250 Comment on above: Performed By: #### L 500.4050, L100.0100 #### [address] [place], [address] GAP 14 Normal 5-15 Comment on above: Performed By: #### L 500.4050, L100.0100 #### [address] [place], [address] GFR/1.73 sq M.predicted among non-blacks MDRD (S/P/Bld) [Vol rate/Area] 48 mL/min/{1.73_m2} Low >60 Comment on above: Result Comment: mL/m in/1.73m2 CKD-EPI Creatinine Equation (2020) Performed By: #### L 500.4050, L100.0100 #### [address] [place], [address] Globulin (S) [Mass/Vol] 3.1 g/dL Normal 2.2-4.2 Comment on above: Performed By: #### L 500.4050, L100.0100 #### [address] [place], [address] Glucose [Mass/Vol] 296 mg/dL High 70-99 [facility] Comment on above: Performed By: #### L 500.4050, L100.0100 #### [address] [place], [address] Potassium [Moles/Vol] 4.4 mmol/L Normal 3.3-5.[address] [facility] Comment on above: Performed By: #### L 500.4050, L100.0100 #### [address] [place], [address] Sodium [Moles/Vol] 139 mmol/L Normal 133-145 [facility] Comment on above: Performed By: #### L 500.4050, L100.0100 #### [address] [place], [address] T PROT 6.6 g/dL Normal 5.9-8.4 Comment on above: Performed By: #### L 500.4050, L100.0100 #### [address] [place], [address] Urea nitrogen [Mass/Vol] 20 mg/dL High 4-19 Comment on above: Performed By: #### L 500.4050, L100.0100 #### [address] [place], [address] Oncology Visit Reporton 11-0 Oncology Visit Report Normal [facility] ONC Echo, Limited Studyon ONC Echo, Limited Study Normal Oncology Visit Reporton 10-2 Oncology Visit Report Normal [facility] CA 15-3on 07-03-2025 CA 15-3 34.0 U/mL Abnormal 0.0-25.0 Comment on above: Result Comment: [facility] [employer] Electrochemiluminescence Immunoassay(ECLIA)Values obtained with different assay methods or kits cannotbe used interchangeably. Results cannot be interpreted asabsolute evidence of the presence or absence of malignantdisease.Performed at: [facility] [email or web address] [id number] Director: Reese Willingham PhD, Phone: [phone] Performed By: #### L 3100.2300, P6100.8642, K9824.0665, E8429.2351 #### [id number] [place], [address] CA 27.29on 07-03-2025 CA 27.29 56.2 U/mL Abnormal 0.0-38.6 Comment on above: Result Comment: [facility] [employer] Immunochemiluminometric Methodology (ICMA)Values obtained with different assay methods or kits cannotbe used interchangeably. Results cannot be interpreted asabsolute evidence of the presence or absence of malignantdisease. Performed By: #### L 3100.2300, L3100.5000, L3100.5040, L3100.5030 #### [id number] [place], [address] Cancer Antigen 125on 025 CA 125 154.0 U/mL High 0.0-38.1 Comment on above: Result Comment: [facility] Electrochemiluminescence Immunoassay(ECLIA)Values obtained with different assay methods or kits cannotbe used interchangeably. Results cannot be interpreted asabsolute evidence of the presence or absence of malignantdisease. Performed By: #### L 3100.2300, L3100.5000, L3100.5040, L3100.5030 #### [address] [place], [address] Carcinoembryonic Antigenon 1 CEA 17.4 ng/mL High 0.0-4.7 Comment on above: Result Comment: Nons mokers <3.9 Smokers <5.6[facility] Electrochemiluminescence Immunoassay(ECLIA)Values obtained with different assay methods or kitscannot be used interchangeably. Results cannot beinterpreted as absolute evidence of the presence orabsence of malignant disease. Performed By: #### L 3100.2300, L3100.5000, L3100.5040, L3100.5030 #### [id number] [place], [address] CA 15-3Ordered By: Myron freeman on 07-02-2025 CA 15-3 34.0 U/mL High 0.0-25.0 Comment on above: [facility] El ectrochemiluminescence Immunoassay(ECLIA)Values obtained with different assay methods or kits cannotbe used interchangeably. Results cannot be interpreted asabsolute evidence of the presence or absence of malignantdisease.Performed at: [facility] [place], [place] [id number] Director: Reese Willingham PhD, Phone: [phone] CA 27.29Ordered By: Myron arias on 07-02-2025 CA 27.29 56.2 U/mL High 0.0-38.6 Comment on above: [employer] Immu nochemiluminometric Methodology (ICMA)Values obtained with different assay methods or kits cannotbe used interchangeably. Results cannot be interpreted asabsolute evidence of the presence or absence of malignantdisease. Cancer antigen 125 (CA-125) measurementOrdered By: Myron Calvillo on 07-02-2025 Cancer antigen 125 (CA-125) measurement 154.0 U/mL High 0.0-38.1 Comment on above: [facility] El ectrochemiluminescence Immunoassay(ECLIA)Values obtained with different assay methods or kits cannotbe used interchangeably. Results cannot be interpreted asabsolute evidence of the presence or absence of malignantdisease. PET/CT Tumor Base -Thigh Sub son 07-02-2025 PET/CT Tumor Base -Thigh Subs Normal Serum or plasma carcinoembry onic antigen measurement (mass/volume)Ordered By: Myron Calvillo on 07-02-2025 Carcinoembryonic Ag [Mass/Vol] 17.4 ng/mL High 0.0-4.7 Comment on above: Nonsmokers <3.9 Smok ers <5.6[facility] Electrochemiluminescence Immunoassay(ECLIA)Values obtained with different assay methods or kitscannot be used interchangeably. Results cannot beinterpreted as absolute evidence of the presence orabsence of malignant disease. Absolute lymphocyte countOrd ered By: Myron Calvillo on 06-27-2025 Lymphocytes Auto (Unsp spec) [#/Vol] 0.81 10*3/uL Low 0.83-4.51 Absolute neutrophil countOrd ered By: Myron Calvillo on 06-27-2025 Neutrophils (Bld) [#/Vol] 3.6 10*3/uL 2.0-7.7 Anion gap in Serum or Plasma Ordered By: Myron Calvillo on 06-27-2025 Anion gap [Moles/Vol] 12 mmol/L 5-[address] [facility] Automated lymphocyte count a s percentage of total leukocytesOrdered By: Myron Calvillo on 06-27-2025 Lymphocytes/100 WBC Auto (Unsp spec) 16.1 % Low 19-41 BUN/creatinine ratioOrdered By: Myron Calvillo on 06-27-2025 Urea nitrogen/Creatinine [Mass ratio] 13.5 mg/mg 10- Basophil percentageOrdered B y: Myron Calvillo on 06-27-2025 Basophils/100 WBC (Bld) 0.4 % 0-1 Bilirubin, totalOrdered By: Myron Calvillo on 06-27-2025 Bilirubin [Mass/Vol] 0.26 mg/dL 0.00-1.30 [facility] CBC W/Diff, Automatedon 06-12 Absolute Lymph 0.81 X10 3/uL Low 0.83-4.51 Comment on above: Performed By: #### L 500.4050, L504.2610, L100.0100 #### [id number] [place], [address] Absolute Neut 3.6 X10 3/uL Normal 2.0-7.7 Comment on above: Performed By: #### L 500.4050, L504.2610, L100.0100 #### [id number] [place], [address] Basophils/100 WBC (Bld) 0.4 % Normal 0-1 Comment on above: Performed By: #### L 500.4050, L504.2610, L100.0100 #### [address] [place], [address] Eosinophils/100 WBC (Bld) 2.2 % Normal 0-5 Comment on above: Performed By: #### L 500.4050, L504.2610, L100.0100 #### [address] [place], [address] Erythrocyte distribution width (RBC) [Ratio] 14.6 % Normal 11.6-14.6 Comment on above: Performed By: #### L 500.4050, L504.2610, L100.0100 #### [address] [place], [address] Hematocrit (Bld) [Volume fraction] 31.7 % Low 37-47 Comment on above: Performed By: #### L 500.4050, L504.2610, L100.0100 #### [id number] [place], [address] Hemoglobin (Bld) [Mass/Vol] 10.3 g/dL Low 12.0-15.0 Comment on above: Performed By: #### L 500.4050, L504.2610, L100.0100 #### [address] [place], [address] IG% 1.800 High 0.0-0.9 Comment on above: Result Comment: IG% - Immature Granulocytes (promyelocytes, myelocytes andmetamyelocytes) > 1% indicates that a LEFT SHIFT is Present. Performed By: #### L 500.4050, L504.2610, L100.0100 #### [id number] [place], [address] Lymphocytes/100 WBC (Bld) 16.1 % Low 19-41 Comment on above: Performed By: #### L 500.4050, L504.2610, L100.0100 #### [id number] [place], [address] MCH (RBC) [Entitic mass] 31.9 pg Normal 27.0-32.0 Comment on above: Performed By: #### L 500.4050, L504.2610, L100.0100 #### [address] [place], [address] MCHC (RBC) [Mass/Vol] 32.5 g/dL Normal 32-[address] [facility] Comment on above: Performed By: #### L 500.4050, L504.2610, L100.0100 #### [id number] [place], [address] MCV (RBC) [Entitic vol] 98.1 fL Normal 81-99 Comment on above: Performed By: #### L 500.4050, L504.2610, L100.0100 #### [address] [place], [address] Monocytes/100 WBC (Bld) 7.6 % Normal 0-10 Comment on above: Performed By: #### L 500.4050, L504.2610, L100.0100 #### [address] [place], [address] Neutrophils/100 WBC (Bld) 71.9 % High 47-70 Comment on above: Performed By: #### L 500.4050, L504.2610, L100.0100 #### [address] [place], [address] Nucleated RBC (Bld) [#/Vol] 0.4 10*3/uL Normal 0-5 Comment on above: Performed By: #### L 500.4050, L504.2610, L100.0100 #### [address] [place], [address] Platelet mean volume (Bld) [Entitic vol] 9.1 fL Normal 6.2-12.0 Comment on above: Performed By: #### L 500.4050, L504.2610, L100.0100 #### [address] [place], [address] Platelets (Bld) [#/Vol] 207 10*3/uL Normal 150-450 Comment on above: Performed By: #### L 500.4050, L504.2610, L100.0100 #### [address] [place], [address] RBC (Bld) [#/Vol] 3.23 10*6/uL Low 4.2-5.4 [facility] Comment on above: Performed By: #### L 500.4050, L504.2610, L100.0100 #### [address] [place], [address] RDW SD 52.1 fl High 35.1-43.9 Comment on above: Performed By: #### L 500.4050, L504.2610, L100.0100 #### [address] [place], [address] WBC (Bld) [#/Vol] 5.0 10*3/uL Normal 4.4-11.0 [facility] Comment on above: Performed By: #### L 500.4050, L504.2610, L100.0100 #### [address] [place], [address] Carbon dioxide, total [Moles /volume] in Central venous bloodOrdered By: yMron Calvillo on 06-27-2025 CO2 [Moles/Vol] 27.5 mmol/L 21.0-32.0 Chloride assayOrdered By: Destinee Calvillo on 06-27-2025 Chloride [Moles/Vol] 101 mmol/L 98-108 [facility] Comprehensive Metabolic Prof ilon 06-27-2025 Albumin [Mass/Vol] 3.6 g/dL Normal 3.4-4.8 [facility] Comment on above: Performed By: #### L 500.4050, L504.2610, L100.0100 #### [address] [place], [address] Albumin/Globulin [Mass ratio] 1.3 {ratio} Normal 0.9-2.4 Comment on above: Performed By: #### L 500.4050, L504.2610, L100.0100 #### [id number] [place], [address] ALK PHOS 199 U/L High 35-104 Comment on above: Performed By: #### L 500.4050, L504.2610, L100.0100 #### [address] [place], [address] ALT [Catalytic activity/Vol] 37 U/L High <=34 Comment on above: Performed By: #### L 500.4050, L504.2610, L100.0100 #### [address] [place], [address] AST [Catalytic activity/Vol] 59 U/L High <=31 Comment on above: Performed By: #### L 500.4050, L504.2610, L100.0100 #### [address] [place], [address] Bilirubin [Mass/Vol] 0.26 mg/dL Normal 0.00-1.30 [facility] Comment on above: Performed By: #### L 500.4050, L504.2610, L100.0100 #### [id number] [place], [address] BUN/CRE 13.5 RATIO Normal 10-20 Comment on above: Performed By: #### L 500.4050, L504.2610, L100.0100 #### [address] [place], [address] Calcium [Mass/Vol] 9.1 mg/dL Normal 7.6-11.0 [facility] Comment on above: Performed By: #### L 500.4050, L504.2610, L100.0100 #### [address] [place], [address] Chloride [Moles/Vol] 101 mmol/L Normal 98-108 [facility] Comment on above: Performed By: #### L 500.4050, L504.2610, L100.0100 #### [address] [place], [address] CO2 [Moles/Vol] 27.5 mmol/L Normal 21.0-32.0 Comment on above: Performed By: #### L 500.4050, L504.2610, L100.0100 #### [address] [place], [address] Creatinine [Mass/Vol] 1.17 mg/dL Normal 0.70-1.[address] [facility] Comment on above: Performed By: #### L 500.4050, L504.2610, L100.0100 #### [address] [place], [address] ECRCL 53.17 ml/min Normal 50-250 Comment on above: Performed By: #### L 500.4050, L504.2610, L100.0100 #### [address] [place], [address] GAP 12 Normal 5-15 Comment on above: Performed By: #### L 500.4050, L504.2610, L100.0100 #### [address] [place], [address] GFR/1.73 sq M.predicted among non-blacks MDRD (S/P/Bld) [Vol rate/Area] 50 mL/min/{1.73_m2} Low >60 Comment on above: Result Comment: mL/m in/1.73m2 CKD-EPI Creatinine Equation (2020) Performed By: #### L 500.4050, L504.2610, L100.0100 #### [address] [place], [address] Globulin (S) [Mass/Vol] 2.7 g/dL Normal 2.2-4.2 Comment on above: Performed By: #### L 500.4050, L504.2610, L100.0100 #### [address] [place], [address] Glucose [Mass/Vol] 213 mg/dL High 70-99 [facility] Comment on above: Performed By: #### L 500.4050, L504.2610, L100.0100 #### [address] [place], [address] Potassium [Moles/Vol] 4.2 mmol/L Normal 3.3-5.[address] [facility] Comment on above: Performed By: #### L 500.4050, L504.2610, L100.0100 #### [address] [place], [address] Sodium [Moles/Vol] 141 mmol/L Normal 133-145 [facility] Comment on above: Performed By: #### L 500.4050, L504.2610, L100.0100 #### [address] [place], [address] T PROT 6.3 g/dL Normal 5.9-8.4 Comment on above: Performed By: #### L 500.4050, L504.2610, L100.0100 #### [address] [place], [address] Urea nitrogen [Mass/Vol] 16 mg/dL Normal 4-19 Comment on above: Performed By: #### L 500.4050, L504.2610, L100.0100 #### [address] [place], [address] Eosinophil percentageOrdered By: Myron Calvillo on 06-27-2025 Eosinophils/100 WBC (Bld) 2.2 % 0-5 Erythrocyte distribution wid th ratioOrdered By: Myron Calvillo on 06-27-2025 Erythrocyte distribution width (RBC) [Ratio] 14.6 % 11.6-14.6 Erythrocyte distribution wid th standard deviationOrdered By: Myron Calvillo on 06-27-2025 Erythrocyte distribution width (RBC) [Ratio] 52.1 fl High 35.1-43.9 Glomerular filtration rate ( GFR) estimation/1.73 sq m using serum, plasma, or whole bOrdered By: Myron Calvillo on 06-27-2025 GFR/1.73 sq M.predicted among non-blacks MDRD (S/P/Bld) [Vol rate/Area] 50 mL/min/{1.73_m2} Low >60 Comment on above: mL/min/1.73m2 CKD-EP I Creatinine Equation (2020) Hematocrit Auto (Bld) [Volum e fraction]Ordered By: Myron Calvillo on 06-27-2025 Hematocrit (Bld) [Volume fraction] 31.7 % Low 37-47 Hemoglobin measurementOrdere d By: Myron Calvillo on 06-27-2025 Hemoglobin (Bld) [Mass/Vol] 10.3 g/dL Low 12.0-15.0 Immature granulocytes/100 WB C Auto (Bld)Ordered By: Myron Calvillo on 06-27-2025 Immature granulocytes/100 WBC (Bld) 1.800 % High 0.0-0.9 Comment on above: IG% - Immature Granu locytes (promyelocytes, myelocytes and metamyelocytes) > 1% indicates that a LEFT SHIFT is Present. LDHon 06-27-2025 LDH 181 U/L Normal 84-246 Comment on above: Order Comment: 1 Performed By: #### L 500.4050, L504.2610, L100.0100 #### [id number] [place], [address] Laboratory - Chemistry and C hemistry - challengeOrdered By: Myron Calvillo on 06-27-2025 AST [Catalytic activity/Vol] 59 U/L High <32 Lactate dehydrogenase (LDH) measurementOrdered By: Myron Calvillo on 06-27-2025 LDH [Catalytic activity/Vol] 181 U/L 84-246 MCV (mean corpuscular volume ) determinationOrdered By: Myron Calvillo on 06-27-2025 MCV (RBC) [Entitic vol] 98.1 fL 81-99 Mean corpuscular hemoglobin (MCH) determinationOrdered By: Myron Karli on 06-27-2025 MCH (RBC) [Entitic mass] 31.9 pg 27.0-32.0 Mean corpuscular hemoglobin concentration (MCHC) determinationOrdered By: Myron Calvillo on 06-27-2025 MCHC (RBC) [Mass/Vol] 32.5 g/dL 32-[address] [facility] Mean platelet volume determi nationOrdered By: Myron Calvillo on 06-27-2025 Platelet mean volume (Bld) [Entitic vol] 9.1 fL 6.2-12.0 Monocyte percentageOrdered B y: Myron Calvillo on 06-27-2025 Monocytes/100 WBC (Bld) 7.6 % 0-10 Neutrophil percentageOrdered By: Myron Calvillo on 06-27-2025 Neutrophils/100 WBC (Bld) 71.9 % High 47-70 Nucleated red blood cell per centageOrdered By: Myron Calvillo on 06-27-2025 Nucleated RBC/100 WBC (Bld) [Ratio] 0.4 % 0-5 Oncology Visit Reporton 06-12 Oncology Visit Report Normal [facility] Platelet countOrdered By: Destinee Calvillo on 06-27-2025 Platelets (Bld) [#/Vol] 207 10*3/uL 150-450 Potassium measurement (mass/ volume)Ordered By: Myron Calvillo on 06-27-2025 Potassium (Unsp spec) [Mass/Vol] 4.2 mmol/L 3.3-5.1 RBC Auto (Bld) [#/Vol]Ordere d By: Myron Calvillo on 06-27-2025 RBC (Bld) [#/Vol] 3.23 10*6/uL Low 4.2-5.4 [facility] Serum creatinine measurement (mass/volume)Ordered By: Myron Calvillo on 06-27-2025 Creatinine [Mass/Vol] 1.17 mg/dL 0.70-1.[address] [facility] Serum globulin measurementOr dered By: Myron Calvillo on 06-27-2025 Globulin (S) [Mass/Vol] 2.7 g/dL 2.2-4.2 Serum glucose measurement (m ass/volume)Ordered By: Myron Calvillo on 06-27-2025 Glucose [Mass/Vol] 213 mg/dL High 70-99 [facility] Serum or plasma alanine skinner otransferase (ALT) measurementOrdered By: Myron Calvillo on 06-27-2025 ALT [Catalytic activity/Vol] 37 U/L High <35 Serum or plasma albumin amanda urement (mass/volume)Ordered By: Myron Calvillo on 06-27-2025 Albumin [Mass/Vol] 3.6 g/dL 3.4-4.8 [facility] Serum or plasma albumin/glob ulin mass ratioOrdered By: Myron Calvillo on 06-27-2025 Albumin/Globulin [Mass ratio] 1.3 {ratio} 0.9-2.4 Serum or plasma alkaline domenico sphatase measurementOrdered By: Myron Calvillo on 06-27-2025 ALP [Catalytic activity/Vol] 199 U/L High 35-104 Serum or plasma calcium amanda urement (mass/volume)Ordered By: Myron Calvillo on 06-27-2025 Calcium [Mass/Vol] 9.1 mg/dL 7.6-11.0 [facility] Serum or plasma urea nitroge n measurement (mass/volume)Ordered By: Myron Karli on 06-27-2025 Urea nitrogen [Mass/Vol] 16 mg/dL 4-19 Sodium levelOrdered By: Yaakov Calvillo on 06-27-2025 Sodium [Moles/Vol] 141 mmol/L 133-145 [facility] Total proteinOrdered By: Kavon Calvillo on 06-27-2025 Protein [Mass/Vol] 6.3 g/dL 5.9-8.4 [facility] White blood cell (WBC) count Ordered By: Myron Calvillo on 06-27-2025 WBC (Bld) [#/Vol] 5.0 10*3/uL 4.4-11.0 [facility] Bone Scan Whole Bodyon 06-17 Bone Scan Whole Body Normal [facility] CA 15-3on 06-01-2025 CA 15-3 31.3 U/mL Abnormal 0.0-25.0 Comment on above: Result Comment: [employer] Electrochemiluminescence Immunoassay(ECLIA)Values obtained with different assay methods or kits cannotbe used interchangeably. Results cannot be interpreted asabsolute evidence of the presence or absence of malignantdisease.Performed at: [employer] [place] [id number] Director: Reese Willingham PhD, Phone: [phone] Performed By: #### L 100.0100, L3100.5040, L3100.2300, L3100.5030, L500.4050 #### [id number] [place], [place], [id number] CA 27.29on 06-01-2025 CA 27.29 49.4 U/mL Abnormal 0.0-38.6 Comment on above: Result Comment: [employer] Immunochemiluminometric Methodology (ICMA)Values obtained with different assay methods or kits cannotbe used interchangeably. Results cannot be interpreted asabsolute evidence of the presence or absence of malignantdisease. Performed By: #### L 100.0100, L3100.5040, L3100.2300, L3100.5030, L500.4050 #### [id number] [place], [place], [address] Cancer Antigen 125on 025 CA 125 122.0 U/mL High 0.0-38.1 Comment on above: Result Comment: [facility] Electrochemiluminescence Immunoassay(ECLIA)Values obtained with different assay methods or kits cannotbe used interchangeably. Results cannot be interpreted asabsolute evidence of the presence or absence of malignantdisease.Performed at: [employer] [facility] [id number] Director: Reese Willingham PhD, Phone: [phone] Performed By: #### L 3100.5000 #### [address] [place], [place], [id number] Carcinoembryonic Antigenon 0 06-01-2025 CEA 17.9 ng/mL High 0.0-4.7 Comment on above: Result Comment: Nons mokers <3.9 Smokers <5.6[facility] Electrochemiluminescence Immunoassay(ECLIA)Values obtained with different assay methods or kitscannot be used interchangeably. Results cannot beinterpreted as absolute evidence of the presence orabsence of malignant disease. Performed By: #### L 100.0100, L3100.5040, L3100.2300, L3100.5030, L500.4050 #### [address] [place], [place], [id number] Absolute lymphocyte countOrd ered By: Sultana Finn on 05-30-2025 Lymphocytes Auto (Unsp spec) [#/Vol] 0.73 10*3/uL Low 0.83-4.51 Absolute neutrophil countOrd ered By: Sultana Finn on 05-30-2025 Neutrophils (Bld) [#/Vol] 2.3 10*3/uL 2.0-7.7 Anion gap in Serum or Plasma Ordered By: Sultana Finn on 05-30-2025 Anion gap [Moles/Vol] 14 mmol/L 5-[address] [facility] Automated lymphocyte count a s percentage of total leukocytesOrdered By: Sultana Finn on 05-30-2025 Lymphocytes/100 WBC Auto (Unsp spec) 21.2 % 19-41 BUN/creatinine ratioOrdered By: Sultana Finn on 05-30-2025 Urea nitrogen/Creatinine [Mass ratio] 15.9 mg/mg 10-20 Basophil percentageOrdered B y: Sultana Finn on 05-30-2025 Basophils/100 WBC (Bld) 0.3 % 0-1 Bilirubin, totalOrdered By: Sultana Finn on 05-30-2025 Bilirubin [Mass/Vol] 0.21 mg/dL 0.00-1.30 [facility] CA 15-3Ordered By: Sultana dumont on 05-30-2025 CA 15-3 31.3 U/mL High 0.0-25.0 Comment on above: [facility] El ectrochemiluminescence Immunoassay(ECLIA)Values obtained with different assay methods or kits cannotbe used interchangeably. Results cannot be interpreted asabsolute evidence of the presence or absence of malignantdisease.Performed at: [address] [id number] Director: Reese Willingham PhD, Phone: [phone] CA 27.29Ordered By: Sultana butler on 05-30-2025 CA 27.29 49.4 U/mL High 0.0-38.6 Comment on above: [employer] Immu nochemiluminometric Methodology (ICMA)Values obtained with different assay methods or kits cannotbe used interchangeably. Results cannot be interpreted asabsolute evidence of the presence or absence of malignantdisease. CBC W/Diff, Automatedon 05-13 Absolute Lymph 0.73 X10 3/uL Low 0.83-4.51 Comment on above: Performed By: #### L 100.0100, L3100.5040, L3100.2300, L3100.5030, L500.4050 #### [id number] [place], [address] Absolute Neut 2.3 X10 3/uL Normal 2.0-7.7 Comment on above: Performed By: #### L 100.0100, L3100.5040, L3100.2300, L3100.5030, L500.4050 #### [address] [place], [address] Basophils/100 WBC (Bld) 0.3 % Normal 0-1 Comment on above: Performed By: #### L 100.0100, L3100.5040, L3100.2300, L3100.5030, L500.4050 #### [address] [place], [address] Eosinophils/100 WBC (Bld) 3.8 % Normal 0-5 Comment on above: Performed By: #### L 100.0100, L3100.5040, L3100.2300, L3100.5030, L500.4050 #### [address] [place], [address] Erythrocyte distribution width (RBC) [Ratio] 13.5 % Normal 11.6-14.6 Comment on above: Performed By: #### L 100.0100, L3100.5040, L3100.2300, L3100.5030, L500.4050 #### [id number] [place], [address] Hematocrit (Bld) [Volume fraction] 31.6 % Low 37-47 Comment on above: Performed By: #### L 100.0100, L3100.5040, L3100.2300, L3100.5030, L500.4050 #### [address] [place], [address] Hemoglobin (Bld) [Mass/Vol] 10.6 g/dL Low 12.0-15.0 Comment on above: Performed By: #### L 100.0100, L3100.5040, L3100.2300, L3100.5030, L500.4050 #### [address] [place], [address] IG% 0.600 Normal 0.0-0.9 Comment on above: Result Comment: IG% - Immature Granulocytes (promyelocytes, myelocytes andmetamyelocytes) > 1% indicates that a LEFT SHIFT is Present. Performed By: #### L 100.0100, L3100.5040, L3100.2300, L3100.5030, L500.4050 #### [address] [place], [address] Lymphocytes/100 WBC (Bld) 21.2 % Normal 19-41 Comment on above: Performed By: #### L 100.0100, L3100.5040, L3100.2300, L3100.5030, L500.4050 #### [id number] [place], [address] MCH (RBC) [Entitic mass] 32.6 pg High 27.0-32.0 Comment on above: Performed By: #### L 100.0100, L3100.5040, L3100.2300, L3100.5030, L500.4050 #### [id number] [place], [address] MCHC (RBC) [Mass/Vol] 33.5 g/dL Normal 32-[address] [facility] Comment on above: Performed By: #### L 100.0100, L3100.5040, L3100.2300, L3100.5030, L500.4050 #### [address] [place], [address] MCV (RBC) [Entitic vol] 97.2 fL Normal 81-99 Comment on above: Performed By: #### L 100.0100, L3100.5040, L3100.2300, L3100.5030, L500.4050 #### [address] [place], [address] Monocytes/100 WBC (Bld) 8.7 % Normal 0-10 Comment on above: Performed By: #### L 100.0100, L3100.5040, L3100.2300, L3100.5030, L500.4050 #### [id number] [place], [address] Neutrophils/100 WBC (Bld) 65.4 % Normal 47-70 Comment on above: Performed By: #### L 100.0100, L3100.5040, L3100.2300, L3100.5030, L500.4050 #### [id number] [place], [address] Nucleated RBC (Bld) [#/Vol] 0 10*3/uL Normal 0-5 Comment on above: Performed By: #### L 100.0100, L3100.5040, L3100.2300, L3100.5030, L500.4050 #### [id number] [place], [address] Platelet mean volume (Bld) [Entitic vol] 9.4 fL Normal 6.2-12.0 Comment on above: Performed By: #### L 100.0100, L3100.5040, L3100.2300, L3100.5030, L500.4050 #### [id number] [place], [address] Platelets (Bld) [#/Vol] 170 10*3/uL Normal 150-450 Comment on above: Performed By: #### L 100.0100, L3100.5040, L3100.2300, L3100.5030, L500.4050 #### [id number] [place], [address] RBC (Bld) [#/Vol] 3.25 10*6/uL Low 4.2-5.4 [facility] Comment on above: Performed By: #### L 100.0100, L3100.5040, L3100.2300, L3100.5030, L500.4050 #### [id number] [place], [address] RDW SD 48.5 fl High 35.1-43.9 Comment on above: Performed By: #### L 100.0100, L3100.5040, L3100.2300, L3100.5030, L500.4050 #### [id number] [place], [address] WBC (Bld) [#/Vol] 3.5 10*3/uL Low 4.4-11.0 [facility] Comment on above: Performed By: #### L 100.0100, L3100.5040, L3100.2300, L3100.5030, L500.4050 #### [id number] [place], [address] Cancer antigen 125 (CA-125) measurementOrdered By: Myron Calvillo on 05-30-2025 Cancer antigen 125 (CA-125) measurement 122.0 U/mL High 0.0-38.1 Comment on above: [facility] El ectrochemiluminescence Immunoassay(ECLIA)Values obtained with different assay methods or kits cannotbe used interchangeably. Results cannot be interpreted asabsolute evidence of the presence or absence of malignantdisease.Performed at: [address] [id number] Director: Reese Willingham PhD, Phone: [phone] Carbon dioxide, total [Moles /volume] in Central venous bloodOrdered By: Sultana Finn on 05-30-2025 CO2 [Moles/Vol] 22.6 mmol/L 21.0-32.0 Chloride assayOrdered By: Saurabh Finn on 05-30-2025 Chloride [Moles/Vol] 103 mmol/L 98-108 [facility] Comprehensive Metabolic Prof ilon 05-30-2025 Albumin [Mass/Vol] 3.5 g/dL Normal 3.4-4.8 [facility] Comment on above: Performed By: #### L 100.0100, L3100.5040, L3100.2300, L3100.5030, L500.4050 #### [address] [place], [address] Albumin/Globulin [Mass ratio] 1.2 {ratio} Normal 0.9-2.4 Comment on above: Performed By: #### L 100.0100, L3100.5040, L3100.2300, L3100.5030, L500.4050 #### [address] [place], [address] ALK PHOS 193 U/L High 35-104 Comment on above: Performed By: #### L 100.0100, L3100.5040, L3100.2300, L3100.5030, L500.4050 #### [address] [place], [address] ALT [Catalytic activity/Vol] 37 U/L High <=34 Comment on above: Performed By: #### L 100.0100, L3100.5040, L3100.2300, L3100.5030, L500.4050 #### [address] [place], [address] AST [Catalytic activity/Vol] 51 U/L High <=31 Comment on above: Performed By: #### L 100.0100, L3100.5040, L3100.2300, L3100.5030, L500.4050 #### [address] [place], [address] Bilirubin [Mass/Vol] 0.21 mg/dL Normal 0.00-1.30 [facility] Comment on above: Performed By: #### L 100.0100, L3100.5040, L3100.2300, L3100.5030, L500.4050 #### [address] [place], [address] BUN/CRE 15.9 RATIO Normal 10-20 Comment on above: Performed By: #### L 100.0100, L3100.5040, L3100.2300, L3100.5030, L500.4050 #### [address] [place], [address] Calcium [Mass/Vol] 8.8 mg/dL Normal 7.6-11.0 [facility] Comment on above: Performed By: #### L 100.0100, L3100.5040, L3100.2300, L3100.5030, L500.4050 #### [address] [place], [address] Chloride [Moles/Vol] 103 mmol/L Normal 98-108 [facility] Comment on above: Performed By: #### L 100.0100, L3100.5040, L3100.2300, L3100.5030, L500.4050 #### [address] [place], [address] CO2 [Moles/Vol] 22.6 mmol/L Normal 21.0-32.0 Comment on above: Performed By: #### L 100.0100, L3100.5040, L3100.2300, L3100.5030, L500.4050 #### [address] [place], [address] Creatinine [Mass/Vol] 1.38 mg/dL High 0.70-1.[address] [facility] Comment on above: Performed By: #### L 100.0100, L3100.5040, L3100.2300, L3100.5030, L500.4050 #### [address] [place], [address] ECRCL 44.49 ml/min Low 50-250 Comment on above: Performed By: #### L 100.0100, L3100.5040, L3100.2300, L3100.5030, L500.4050 #### [address] [place], [address] GAP 14 Normal 5-15 Comment on above: Performed By: #### L 100.0100, L3100.5040, L3100.2300, L3100.5030, L500.4050 #### [address] [place], [address] GFR/1.73 sq M.predicted among non-blacks MDRD (S/P/Bld) [Vol rate/Area] 41 mL/min/{1.73_m2} Low >60 Comment on above: Result Comment: mL/m in/1.73m2 CKD-EPI Creatinine Equation (2020) Performed By: #### L 100.0100, L3100.5040, L3100.2300, L3100.5030, L500.4050 #### [address] [place], [address] Globulin (S) [Mass/Vol] 3.0 g/dL Normal 2.2-4.2 Comment on above: Performed By: #### L 100.0100, L3100.5040, L3100.2300, L3100.5030, L500.4050 #### [address] [place], [address] Glucose [Mass/Vol] 222 mg/dL High 70-99 [facility] Comment on above: Performed By: #### L 100.0100, L3100.5040, L3100.2300, L3100.5030, L500.4050 #### [address] [place], [address] Potassium [Moles/Vol] 4.6 mmol/L Normal 3.3-5.[address] [facility] Comment on above: Performed By: #### L 100.0100, L3100.5040, L3100.2300, L3100.5030, L500.4050 #### [address] [place], [address] Sodium [Moles/Vol] 139 mmol/L Normal 133-145 [facility] Comment on above: Performed By: #### L 100.0100, L3100.5040, L3100.2300, L3100.5030, L500.4050 #### [address] [place], [address] T PROT 6.4 g/dL Normal 5.9-8.4 Comment on above: Performed By: #### L 100.0100, L3100.5040, L3100.2300, L3100.5030, L500.4050 #### [id number] [place], [address] Urea nitrogen [Mass/Vol] 22 mg/dL High 4-19 Comment on above: Performed By: #### L 100.0100, L3100.5040, L3100.2300, L3100.5030, L500.4050 #### [address] [place], [address] Eosinophil percentageOrdered By: Sultana Finn on 05-30-2025 Eosinophils/100 WBC (Bld) 3.8 % 0-5 Erythrocyte distribution wid th ratioOrdered By: Sultana Finn on 05-30-2025 Erythrocyte distribution width (RBC) [Ratio] 13.5 % 11.6-14.6 Erythrocyte distribution wid th standard deviationOrdered By: Sultana Finn on 05-30-2025 Erythrocyte distribution width (RBC) [Ratio] 48.5 fl High 35.1-43.9 Glomerular filtration rate ( GFR) estimation/1.73 sq m using serum, plasma, or whole bOrdered By: Sultana Finn on 05-30-2025 GFR/1.73 sq M.predicted among non-blacks MDRD (S/P/Bld) [Vol rate/Area] 41 mL/min/{1.73_m2} Low >60 Comment on above: mL/min/1.73m2 CKD-EP I Creatinine Equation (2020) Hematocrit Auto (Bld) [Volum e fraction]Ordered By: Sultana Finn on 05-30-2025 Hematocrit (Bld) [Volume fraction] 31.6 % Low 37-47 Hemoglobin measurementOrdere d By: Sultana Finn on 05-30-2025 Hemoglobin (Bld) [Mass/Vol] 10.6 g/dL Low 12.0-15.0 Immature granulocytes/100 WB C Auto (Bld)Ordered By: Sultana Finn 05-30-2025 Immature granulocytes/100 WBC (Bld) 0.600 % 0.0-0.9 Comment on above: IG% - Immature Granu locytes (promyelocytes, myelocytes and metamyelocytes) > 1% indicates that a LEFT SHIFT is Present. Laboratory - Chemistry and C hemistry - challengeOrdered By: Sultana Finn on 05-30-2025 AST [Catalytic activity/Vol] 51 U/L High <32 MCV (mean corpuscular volume ) determinationOrdered By: Sultana Finn on 05-30-2025 MCV (RBC) [Entitic vol] 97.2 fL 81-99 Mean corpuscular hemoglobin (MCH) determinationOrdered By: Sultana Finn on 05-30-2025 MCH (RBC) [Entitic mass] 32.6 pg High 27.0-32.0 Mean corpuscular hemoglobin concentration (MCHC) determinationOrdered By: Sultana EspañaAakash on 05-30-2025 MCHC (RBC) [Mass/Vol] 33.5 g/dL 32-[address] [facility] Mean platelet volume determi nationOrdered By: Sultana EspañaAakash on 05-30-2025 Platelet mean volume (Bld) [Entitic vol] 9.4 fL 6.2-12.0 Monocyte percentageOrdered B y: Sultana Finn on 05-30-2025 Monocytes/100 WBC (Bld) 8.7 % 0-10 Neutrophil percentageOrdered By: Sultana Finn on 05-30-2025 Neutrophils/100 WBC (Bld) 65.4 % 47-70 Nucleated red blood cell per centageOrdered By: Sultana Finn on 05-30-2025 Nucleated RBC/100 WBC (Bld) [Ratio] 0 % 0-5 Oncology Visit Reporton 05-13 Oncology Visit Report Normal [facility] Platelet countOrdered By: Saurabh Finn on 05-30-2025 Platelets (Bld) [#/Vol] 170 10*3/uL 150-450 Potassium measurement (mass/ volume)Ordered By: Sultana Finn on 05-30-2025 Potassium (Unsp spec) [Mass/Vol] 4.6 mmol/L 3.3-5.1 RBC Auto (Bld) [#/Vol]Ordere d By: Sultana Finn on 05-30-2025 RBC (Bld) [#/Vol] 3.25 10*6/uL Low 4.2-5.4 [facility] Serum creatinine measurement (mass/volume)Ordered By: Sultana Finn on 05-30-2025 Creatinine [Mass/Vol] 1.38 mg/dL High 0.70-1.[address] [facility] Serum globulin measurementOr dered By: Sultana Finn on 05-30-2025 Globulin (S) [Mass/Vol] 3.0 g/dL 2.2-4.2 Serum glucose measurement (m ass/volume)Ordered By: Sultana Aakash on 05-30-2025 Glucose [Mass/Vol] 222 mg/dL High 70-99 [facility] Serum or plasma alanine skinner otransferase (ALT) measurementOrdered By: [facility]anaSaint [facility] HospitalAakash on 05-30-2025 ALT [Catalytic activity/Vol] 37 U/L High <35 Serum or plasma albumin amanda urement (mass/volume)Ordered By: SultanaSaint [facility] HospitalAakash on 05-30-2025 Albumin [Mass/Vol] 3.5 g/dL 3.4-4.8 [facility] Serum or plasma albumin/glob ulin mass ratioOrdered By: [facility] Albumin/Globulin [Mass ratio] 1.2 {ratio} 0.9-2.4 Serum or plasma alkaline domenico sphatase measurementOrdered By: Sultana Aakash on 05-30-2025 ALP [Catalytic activity/Vol] 193 U/L High 35-104 Serum or plasma calcium amanda urement (mass/volume)Ordered By: Sultana Finn 05-30-2025 Calcium [Mass/Vol] 8.8 mg/dL 7.6-11.0 [facility] Serum or plasma carcinoembry onic antigen measurement (mass/volume)Ordered By: Sultana Aakash 05-30-2025 Carcinoembryonic Ag [Mass/Vol] 17.9 ng/mL High 0.0-4.7 Comment on above: Nonsmokers <3.9 Smok ers <5.6[facility] Electrochemiluminescence Immunoassay(ECLIA)Values obtained with different assay methods or kitscannot be used interchangeably. Results cannot beinterpreted as absolute evidence of the presence orabsence of malignant disease. Serum or plasma urea nitroge n measurement (mass/volume)Ordered By: Sultana Finn 05-30-2025 Urea nitrogen [Mass/Vol] 22 mg/dL High 4-19 Sodium levelOrdered By: Sultana Aakash 05-30-2025 Sodium [Moles/Vol] 139 mmol/L 133-145 [facility] Total proteinOrdered By: Chaka vera Aakash on 05-30-2025 Protein [Mass/Vol] 6.4 g/dL 5.9-8.4 [facility] White blood cell (WBC) count Ordered By: Sultana Aakash on 05-30-2025 WBC (Bld) [#/Vol] 3.5 10*3/uL Low 4.4-11.0 [facility] CA 15-3on 05-03-2025 CA 15-3 29.9 U/mL Abnormal 0.0-25.0 Comment on above: Result Comment: [employer] Electrochemiluminescence Immunoassay(ECLIA)Values obtained with different assay methods or kits cannotbe used interchangeably. Results cannot be interpreted asabsolute evidence of the presence or absence of malignantdisease.Performed at: [employer] [place] [id number] Director: Reese Willingham PhD, Phone: [phone] Performed By: #### L 3100.2300, L3100.5000, L3100.5030, L3100.5040, L100.0100 #### [address] [place], [address] CA 27.29on 05-03-2025 CA 27.29 43.8 U/mL Abnormal 0.0-38.6 Comment on above: Result Comment: [facility] [employer]aur Immunochemiluminometric Methodology (ICMA)Values obtained with different assay methods or kits cannotbe used interchangeably. Results cannot be interpreted asabsolute evidence of the presence or absence of malignantdisease. Performed By: #### L 3100.2300, L3100.5000, L3100.5030, L3100.5040, L100.0100 #### [address] [place], [address] Cancer Antigen 125on 025 CA 125 119.0 U/mL High 0.0-38.1 Comment on above: Result Comment: [facility] Electrochemiluminescence Immunoassay(ECLIA)Values obtained with different assay methods or kits cannotbe used interchangeably. Results cannot be interpreted asabsolute evidence of the presence or absence of malignantdisease. Performed By: #### L 3100.2300, L3100.5000, L3100.5030, L3100.5040, L100.0100 #### [id number] [place], [address] Carcinoembryonic Antigenon 0 - CEA 21.1 ng/mL High 0.0-4.7 Comment on above: Result Comment: Nons mokers <3.9 Smokers <5.6[facility] Electrochemiluminescence Immunoassay(ECLIA)Values obtained with different assay methods or kitscannot be used interchangeably. Results cannot beinterpreted as absolute evidence of the presence orabsence of malignant disease. Performed By: #### L 3100.2300, L3100.5000, L3100.5030, L3100.5040, L100.0100 #### [address] [place], [place], [id number] Absolute lymphocyte countOrd ered By: Myron Calvillo on 05-02-2025 Lymphocytes Auto (Unsp spec) [#/Vol] 0.95 10*3/uL 0.83-4.51 Absolute neutrophil countOrd ered By: Myron Karli on 05-02-2025 Neutrophils (Bld) [#/Vol] 3.8 10*3/uL 2.0-7.7 Automated lymphocyte count a s percentage of total leukocytesOrdered By: Myron Calvillo on 05-02-2025 Lymphocytes/100 WBC Auto (Unsp spec) 17.0 % Low 19-41 Basophil percentageOrdered B y: Myron Calvillo on 05-02-2025 Basophils/100 WBC (Bld) 0.7 % 0-1 CBC W/Diff, Automatedon 08- Absolute Lymph 0.95 X10 3/uL Normal 0.83-4.51 Comment on above: Performed By: #### L 3100.2300, L3100.5000, L3100.5030, L3100.5040, L100.0100 #### [id number] [place], [address] Absolute Neut 3.8 X10 3/uL Normal 2.0-7.7 Comment on above: Performed By: #### L 3100.2300, L3100.5000, L3100.5030, L3100.5040, L100.0100 #### [address] [place], [address] Basophils/100 WBC (Bld) 0.7 % Normal 0-1 Comment on above: Performed By: #### L 3100.2300, L3100.5000, L3100.5030, L3100.5040, L100.0100 #### [address] [place], [address] Eosinophils/100 WBC (Bld) 4.3 % Normal 0-5 Comment on above: Performed By: #### L 3100.2300, L3100.5000, L3100.5030, L3100.5040, L100.0100 #### [address] [place], [address] Erythrocyte distribution width (RBC) [Ratio] 13.2 % Normal 11.6-14.6 Comment on above: Performed By: #### L 3100.2300, L3100.5000, L3100.5030, L3100.5040, L100.0100 #### [address] [place], [address] Hematocrit (Bld) [Volume fraction] 31.1 % Low 37-47 Comment on above: Performed By: #### L 3100.2300, L3100.5000, L3100.5030, L3100.5040, L100.0100 #### [address] [place], [address] Hemoglobin (Bld) [Mass/Vol] 10.8 g/dL Low 12.0-15.0 Comment on above: Performed By: #### L 3100.2300, L3100.5000, L3100.5030, L3100.5040, L100.0100 #### [address] [place], [address] IG% 0.500 Normal 0.0-0.9 Comment on above: Result Comment: IG% - Immature Granulocytes (promyelocytes, myelocytes andmetamyelocytes) > 1% indicates that a LEFT SHIFT is Present. Performed By: #### L 3100.2300, L3100.5000, L3100.5030, L3100.5040, L100.0100 #### [address] [place], [address] Lymphocytes/100 WBC (Bld) 17.0 % Low 19-41 Comment on above: Performed By: #### L 3100.2300, L3100.5000, L3100.5030, L3100.5040, L100.0100 #### [address] [place], [address] MCH (RBC) [Entitic mass] 34.2 pg High 27.0-32.0 Comment on above: Performed By: #### L 3100.2300, L3100.5000, L3100.5030, L3100.5040, L100.0100 #### [address] [place], [address] MCHC (RBC) [Mass/Vol] 34.7 g/dL Normal 32-[address] [facility] Comment on above: Performed By: #### L 3100.2300, L3100.5000, L3100.5030, L3100.5040, L100.0100 #### [address] [place], [address] MCV (RBC) [Entitic vol] 98.4 fL Normal 81-99 Comment on above: Performed By: #### L 3100.2300, L3100.5000, L3100.5030, L3100.5040, L100.0100 #### [address] [place], [address] Monocytes/100 WBC (Bld) 9.1 % Normal 0-10 Comment on above: Performed By: #### L 3100.2300, L3100.5000, L3100.5030, L3100.5040, L100.0100 #### [address] [place], [address] Neutrophils/100 WBC (Bld) 68.4 % Normal 47-70 Comment on above: Performed By: #### L 3100.2300, L3100.5000, L3100.5030, L3100.5040, L100.0100 #### [address] [place], [address] Nucleated RBC (Bld) [#/Vol] 0 10*3/uL Normal 0-5 Comment on above: Performed By: #### L 3100.2300, L3100.5000, L3100.5030, L3100.5040, L100.0100 #### [address] [place], [address] Platelet mean volume (Bld) [Entitic vol] 9.6 fL Normal 6.2-12.0 Comment on above: Performed By: #### L 3100.2300, L3100.5000, L3100.5030, L3100.5040, L100.0100 #### [address] [place], [address] Platelets (Bld) [#/Vol] 179 10*3/uL Normal 150-450 Comment on above: Performed By: #### L 3100.2300, L3100.5000, L3100.5030, L3100.5040, L100.0100 #### [address] [place], [address] RBC (Bld) [#/Vol] 3.16 10*6/uL Low 4.2-5.4 [facility] Comment on above: Performed By: #### L 3100.2300, L3100.5000, L3100.5030, L3100.5040, L100.0100 #### [address] [place], [address] RDW SD 47.2 fl High 35.1-43.9 Comment on above: Performed By: #### L 3100.2300, L3100.5000, L3100.5030, L3100.5040, L100.0100 #### [address] [place], [address] WBC (Bld) [#/Vol] 5.6 10*3/uL Normal 4.4-11.0 [facility] Comment on above: Performed By: #### L 3100.2300, L3100.5000, L3100.5030, L3100.5040, L100.0100 #### [address] [place], [address] Comprehensive Metabolic Prof [facility] 05-02-2025 Albumin [Mass/Vol] 3.7 g/dL Normal 3.4-4.8 [facility] Comment on above: Performed By: #### L 500.4050 #### [address] [place], [address] Albumin/Globulin [Mass ratio] 1.2 {ratio} Normal 0.9-2.4 Comment on above: Performed By: #### L 500.4050 #### [address] [place], [address] ALK PHOS 182 U/L High 35-104 Comment on above: Performed By: #### L 500.4050 #### [address] [place], [address] ALT [Catalytic activity/Vol] 26 U/L Normal <=34 Comment on above: Performed By: #### L 500.4050 #### [address] [place], [address] AST [Catalytic activity/Vol] 40 U/L High <=31 Comment on above: Performed By: #### L 500.4050 #### [address] [place], [address] Bilirubin [Mass/Vol] 0.25 mg/dL Normal 0.00-1.30 [facility] Comment on above: Performed By: #### L 500.4050 #### [address] [place], [address] BUN/CRE 20.6 RATIO High 10-20 Comment on above: Performed By: #### L 500.4050 #### [address] [place], [address] Calcium [Mass/Vol] 9.0 mg/dL Normal 7.6-11.0 [facility] Comment on above: Performed By: #### L 500.4050 #### [address] [place], [address] Chloride [Moles/Vol] 102 mmol/L Normal 98-108 [facility] Comment on above: Performed By: #### L 500.4050 #### [address] [place], [address] CO2 [Moles/Vol] 26.2 mmol/L Normal 21.0-32.0 Comment on above: Performed By: #### L 500.4050 #### [address] [place], [address] Creatinine [Mass/Vol] 1.21 mg/dL High 0.70-1.[address] [facility] Comment on above: Performed By: #### L 500.4050 #### [address] [place], [address] ECRCL 50.74 ml/min Normal 50-250 Comment on above: Performed By: #### L 500.4050 #### [address] [place], [address] GAP 12 Normal 5-15 Comment on above: Performed By: #### L 500.4050 #### [address] [place], [address] GFR/1.73 sq M.predicted among non-blacks MDRD (S/P/Bld) [Vol rate/Area] 48 mL/min/{1.73_m2} Low >60 Comment on above: Result Comment: mL/m in/1.73m2 CKD-EPI Creatinine Equation (2020) Performed By: #### L 500.4050 #### [address] [place], [address] Globulin (S) [Mass/Vol] 3.0 g/dL Normal 2.2-4.2 Comment on above: Performed By: #### L 500.4050 #### [address] [place], [address] Glucose [Mass/Vol] 133 mg/dL High 70-99 [facility] Comment on above: Performed By: #### L 500.4050 #### [address] [place], [address] Potassium [Moles/Vol] 4.3 mmol/L Normal 3.3-5.[address] [facility] Comment on above: Performed By: #### L 500.4050 #### [address] [place], [address] Sodium [Moles/Vol] 140 mmol/L Normal 133-145 [facility] Comment on above: Performed By: #### L 500.4050 #### [address] [place], [address] T PROT 6.7 g/dL Normal 5.9-8.4 Comment on above: Performed By: #### L 500.4050 #### [address] [place], [address] Urea nitrogen [Mass/Vol] 25 mg/dL High 4-19 Comment on above: Performed By: #### L 500.4050 #### [address] [place], [address] Eosinophil percentageOrdered By: Myron Calvillo on 05-02-2025 Eosinophils/100 WBC (Bld) 4.3 % 0-5 Erythrocyte distribution wid th ratioOrdered By: Myron Calvillo on 05-02-2025 Erythrocyte distribution width (RBC) [Ratio] 13.2 % 11.6-14.6 Erythrocyte distribution wid th standard deviationOrdered By: Myron Calvillo on 05-02-2025 Erythrocyte distribution width (RBC) [Ratio] 47.2 fl High 35.1-43.9 Hematocrit Auto (Bld) [Volum e fraction]Ordered By: Myron Calvillo on 05-02-2025 Hematocrit (Bld) [Volume fraction] 31.1 % Low 37-47 Hemoglobin measurementOrdere d By: Myrno Calvillo on 05-02-2025 Hemoglobin (Bld) [Mass/Vol] 10.8 g/dL Low 12.0-15.0 Immature granulocytes/100 WB C Auto (Bld)Ordered By: Myron Calvillo on 05-02-2025 Immature granulocytes/100 WBC (Bld) 0.500 % 0.0-0.9 Comment on above: IG% - Immature Granu locytes (promyelocytes, myelocytes and metamyelocytes) > 1% indicates that a LEFT SHIFT is Present. MCV (mean corpuscular volume ) determinationOrdered By: Myron Calvillo on 05-02-2025 MCV (RBC) [Entitic vol] 98.4 fL 81-99 Mean corpuscular hemoglobin (MCH) determinationOrdered By: Myron Calvillo on 05-02-2025 MCH (RBC) [Entitic mass] 34.2 pg High 27.0-32.0 Mean corpuscular hemoglobin concentration (MCHC) determinationOrdered By: Myron Calvillo on 05-02-2025 MCHC (RBC) [Mass/Vol] 34.7 g/dL 32-[address] [facility] Mean platelet volume determi nationOrdered By: Myron Calvillo on 05-02-2025 Platelet mean volume (Bld) [Entitic vol] 9.6 fL 6.2-12.0 Monocyte percentageOrdered B y: Myron Calvillo on 05-02-2025 Monocytes/100 WBC (Bld) 9.1 % 0-10 Neutrophil percentageOrdered By: Myron Calvillo on 05-02-2025 Neutrophils/100 WBC (Bld) 68.4 % 47-70 Nucleated red blood cell per centageOrdered By: Myron Calvillo on 05-02-2025 Nucleated RBC/100 WBC (Bld) [Ratio] 0 % 0-5 Oncology Visit Reporton 04-13 Oncology Visit Report Normal [facility] Platelet countOrdered By: Destinee Calvillo on 05-02-2025 Platelets (Bld) [#/Vol] 179 10*3/uL 150-450 RBC Auto (Bld) [#/Vol]Ordere d By: Myron Calvillo on 05-02-2025 RBC (Bld) [#/Vol] 3.16 10*6/uL Low 4.2-5.4 [facility] White blood cell (WBC) count Ordered By: Myron Calvillo on 05-02-2025 WBC (Bld) [#/Vol] 5.6 10*3/uL 4.4-11.0 [facility] Oncology Visit Reporton 03-13 Oncology Visit Report Normal [facility] Oncology Visit Reporton 03-12 Oncology Visit Report Normal [facility] CA 15-3on 03-15-2025 CA 15-3 26.7 U/mL Abnormal 0.0-25.0 Comment on above: Result Comment: [employer] Electrochemiluminescence Immunoassay(ECLIA)Values obtained with different assay methods or kits cannotbe used interchangeably. Results cannot be interpreted asabsolute evidence of the presence or absence of malignantdisease.Performed at: [facility] Director: Reese Willingham PhD, Phone: [phone] Performed By: #### L 3100.5040, L500.4050, L3100.5030, L100.0100 #### [id number] [place], [address] CA 27.29on 03-15-2025 CA 27.29 33.5 U/mL Normal 0.0-38.6 Comment on above: Result Comment: [facility] [employer] Immunochemiluminometric Methodology (ICMA)Values obtained with different assay methods or kits cannotbe used interchangeably. Results cannot be interpreted asabsolute evidence of the presence or absence of malignantdisease. Performed By: #### L 3100.5040, L500.4050, L3100.5030, L100.0100 #### [id number] [place], [place], [id number] Absolute lymphocyte countOrd ered By: Sultana Finn on 03-14-2025 Lymphocytes Auto (Unsp spec) [#/Vol] 1.04 10*3/uL 0.83-4.51 Absolute neutrophil countOrd ered By: Sultana Finn on 03-14-2025 Neutrophils (Bld) [#/Vol] 3.3 10*3/uL 2.0-7.7 Anion gap in Serum or Plasma Ordered By: Sultana Finn on 03-14-2025 Anion gap [Moles/Vol] 13 mmol/L 5-[address] [facility] Automated lymphocyte count a s percentage of total leukocytesOrdered By: Sultana Finn on 03-14-2025 Lymphocytes/100 WBC Auto (Unsp spec) 20.0 % 19-41 BUN/creatinine ratioOrdered By: Sultana Finn on 03-14-2025 Urea nitrogen/Creatinine [Mass ratio] 18.2 mg/mg 10-20 Basophil percentageOrdered B y: Sultana Finn on 03-14-2025 Basophils/100 WBC (Bld) 0.8 % 0-1 Bilirubin, totalOrdered By: Sultana Finn on 03-14-2025 Bilirubin [Mass/Vol] 0.39 mg/dL 0.00-1.30 [facility] CA 15-3Ordered By: Sultana dumont on 03-14-2025 CA 15-3 26.7 U/mL High 0.0-25.0 Comment on above: [facility] El ectrochemiluminescence Immunoassay(ECLIA)Values obtained with different assay methods or kits cannotbe used interchangeably. Results cannot be interpreted asabsolute evidence of the presence or absence of malignantdisease.Performed at: [address] [id number] Director: Reese Willingham PhD, Phone: [phone] CA 27.29Ordered By: Sultana butler on 03-14-2025 CA 27.29 33.5 U/mL 0.0-38.6 Comment on above: [employer] Immu nochemiluminometric Methodology (ICMA)Values obtained with different assay methods or kits cannotbe used interchangeably. Results cannot be interpreted asabsolute evidence of the presence or absence of malignantdisease. CBC W/Diff, Automatedon 07-0 3-2025 Absolute Lymph 1.04 X10 3/uL Normal 0.83-4.51 Comment on above: Performed By: #### L 3100.5040, L500.4050, L3100.5030, L100.0100 #### [id number] [place], [address] Absolute Neut 3.3 X10 3/uL Normal 2.0-7.7 Comment on above: Performed By: #### L 3100.5040, L500.4050, L3100.5030, L100.0100 #### [id number] [place], [address] Basophils/100 WBC (Bld) 0.8 % Normal 0-1 Comment on above: Performed By: #### L 3100.5040, L500.4050, L3100.5030, L100.0100 #### [id number] [place], [address] Eosinophils/100 WBC (Bld) 4.8 % Normal 0-5 Comment on above: Performed By: #### L 3100.5040, L500.4050, L3100.5030, L100.0100 #### [address] [place], [address] Erythrocyte distribution width (RBC) [Ratio] 13.5 % Normal 11.6-14.6 Comment on above: Performed By: #### L 3100.5040, L500.4050, L3100.5030, L100.0100 #### [address] [place], [address] Hematocrit (Bld) [Volume fraction] 33.0 % Low 37-47 Comment on above: Performed By: #### L 3100.5040, L500.4050, L3100.5030, L100.0100 #### [address] [place], [address] Hemoglobin (Bld) [Mass/Vol] 11.7 g/dL Low 12.0-15.0 Comment on above: Performed By: #### L 3100.5040, L500.4050, L3100.5030, L100.0100 #### [address] [place], [address] IG% 1.000 High 0.0-0.9 Comment on above: Result Comment: IG% - Immature Granulocytes (promyelocytes, myelocytes andmetamyelocytes) > 1% indicates that a LEFT SHIFT is Present. Performed By: #### L 3100.5040, L500.4050, L3100.5030, L100.0100 #### [address] [place], [address] Lymphocytes/100 WBC (Bld) 20.0 % Normal 19-41 Comment on above: Performed By: #### L 3100.5040, L500.4050, L3100.5030, L100.0100 #### [id number] [place], [address] MCH (RBC) [Entitic mass] 34.8 pg High 27.0-32.0 Comment on above: Performed By: #### L 3100.5040, L500.4050, L3100.5030, L100.0100 #### [address] [place], [address] MCHC (RBC) [Mass/Vol] 35.5 g/dL Normal 32-[address] [facility] Comment on above: Performed By: #### L 3100.5040, L500.4050, L3100.5030, L100.0100 #### [address] [place], [address] MCV (RBC) [Entitic vol] 98.2 fL Normal 81-99 Comment on above: Performed By: #### L 3100.5040, L500.4050, L3100.5030, L100.0100 #### [id number] [place], [address] Monocytes/100 WBC (Bld) 9.4 % Normal 0-10 Comment on above: Performed By: #### L 3100.5040, L500.4050, L3100.5030, L100.0100 #### [id number] [place], [address] Neutrophils/100 WBC (Bld) 64.0 % Normal 47-70 Comment on above: Performed By: #### L 3100.5040, L500.4050, L3100.5030, L100.0100 #### [address] [place], [address] Nucleated RBC (Bld) [#/Vol] 0 10*3/uL Normal 0-5 Comment on above: Performed By: #### L 3100.5040, L500.4050, L3100.5030, L100.0100 #### [address] [place], [address] Platelet mean volume (Bld) [Entitic vol] 9.5 fL Normal 6.2-12.0 Comment on above: Performed By: #### L 3100.5040, L500.4050, L3100.5030, L100.0100 #### [address] [place], [address] Platelets (Bld) [#/Vol] 193 10*3/uL Normal 150-450 Comment on above: Performed By: #### L 3100.5040, L500.4050, L3100.5030, L100.0100 #### [address] [place], [address] RBC (Bld) [#/Vol] 3.36 10*6/uL Low 4.2-5.4 [facility] Comment on above: Performed By: #### L 3100.5040, L500.4050, L3100.5030, L100.0100 #### [address] [place], [address] RDW SD 48.7 fl High 35.1-43.9 Comment on above: Performed By: #### L 3100.5040, L500.4050, L3100.5030, L100.0100 #### [address] [place], [address] WBC (Bld) [#/Vol] 5.2 10*3/uL Normal 4.4-11.0 [facility] Comment on above: Performed By: #### L 3100.5040, L500.4050, L3100.5030, L100.0100 #### [address] [place], [address] Carbon dioxide, total [Moles /volume] in Central venous bloodOrdered By: Sultana Finn on 03-14-2025 CO2 [Moles/Vol] 26.1 mmol/L 21.0-32.0 Chloride assayOrdered By: Saurabh Finn on 03-14-2025 Chloride [Moles/Vol] 100 mmol/L 98-108 [facility] Comprehensive Metabolic Prof ilon 03-14-2025 Albumin [Mass/Vol] 3.7 g/dL Normal 3.4-4.8 [facility] Comment on above: Performed By: #### L 3100.5040, L500.4050, L3100.5030, L100.0100 #### [address] [place], [address] Albumin/Globulin [Mass ratio] 1.3 {ratio} Normal 0.9-2.4 Comment on above: Performed By: #### L 3100.5040, L500.4050, L3100.5030, L100.0100 #### [address] [place], [address] ALK PHOS 181 U/L High 35-104 Comment on above: Performed By: #### L 3100.5040, L500.4050, L3100.5030, L100.0100 #### [address] [place], [address] ALT [Catalytic activity/Vol] 32 U/L Normal <=34 Comment on above: Performed By: #### L 3100.5040, L500.4050, L3100.5030, L100.0100 #### [address] [place], [address] AST [Catalytic activity/Vol] 42 U/L High <=31 Comment on above: Performed By: #### L 3100.5040, L500.4050, L3100.5030, L100.0100 #### [address] [place], [address] Bilirubin [Mass/Vol] 0.39 mg/dL Normal 0.00-1.30 [facility] Comment on above: Performed By: #### L 3100.5040, L500.4050, L3100.5030, L100.0100 #### [address] [place], [address] BUN/CRE 18.2 RATIO Normal 10-20 Comment on above: Performed By: #### L 3100.5040, L500.4050, L3100.5030, L100.0100 #### [address] [place], [address] Calcium [Mass/Vol] 9.8 mg/dL Normal 7.6-11.0 [facility] Comment on above: Performed By: #### L 3100.5040, L500.4050, L3100.5030, L100.0100 #### [address] [place], [address] Chloride [Moles/Vol] 100 mmol/L Normal 98-108 [facility] Comment on above: Performed By: #### L 3100.5040, L500.4050, L3100.5030, L100.0100 #### [address] [place], [address] CO2 [Moles/Vol] 26.1 mmol/L Normal 21.0-32.0 Comment on above: Performed By: #### L 3100.5040, L500.4050, L3100.5030, L100.0100 #### [address] [place], [address] Creatinine [Mass/Vol] 1.05 mg/dL Normal 0.70-1.[address] [facility] Comment on above: Performed By: #### L 3100.5040, L500.4050, L3100.5030, L100.0100 #### [address] [place], [address] ECRCL 59.00 ml/min Normal 50-250 Comment on above: Performed By: #### L 3100.5040, L500.4050, L3100.5030, L100.0100 #### [address] [place], [address] GAP 13 Normal 5-15 Comment on above: Performed By: #### L 3100.5040, L500.4050, L3100.5030, L100.0100 #### [address] [place], [address] GFR/1.73 sq M.predicted among non-blacks MDRD (S/P/Bld) [Vol rate/Area] 56 mL/min/{1.73_m2} Low >60 Comment on above: Result Comment: mL/m in/1.73m2 CKD-EPI Creatinine Equation (2020) Performed By: #### L 3100.5040, L500.4050, L3100.5030, L100.0100 #### [address] [place], [address] Globulin (S) [Mass/Vol] 2.9 g/dL Normal 2.2-4.2 Comment on above: Performed By: #### L 3100.5040, L500.4050, L3100.5030, L100.0100 #### [address] [place], [address] Glucose [Mass/Vol] 185 mg/dL High 70-99 [facility] Comment on above: Performed By: #### L 3100.5040, L500.4050, L3100.5030, L100.0100 #### [address] [place], [address] Potassium [Moles/Vol] 3.9 mmol/L Normal 3.3-5.[address] [facility] Comment on above: Result Comment: Hemo lysis present, Results??could be affected.?? Performed By: #### L 3100.5040, L500.4050, L3100.5030, L100.0100 #### [address] [place], [address] Sodium [Moles/Vol] 139 mmol/L Normal 133-145 [facility] Comment on above: Performed By: #### L 3100.5040, L500.4050, L3100.5030, L100.0100 #### [address] [place], [place], [address] T PROT 6.7 g/dL Normal 5.9-8.4 Comment on above: Performed By: #### L 3100.5040, L500.4050, L3100.5030, L100.0100 #### [address] [place], [address] Urea nitrogen [Mass/Vol] 19 mg/dL Normal 4-19 Comment on above: Performed By: #### L 3100.5040, L500.4050, L3100.5030, L100.0100 #### [address] [place], [address] Eosinophil percentageOrdered By: Sultana Finn on 03-14-2025 Eosinophils/100 WBC (Bld) 4.8 % 0-5 Erythrocyte distribution wid th ratioOrdered By: Sultana Finn on 03-14-2025 Erythrocyte distribution width (RBC) [Ratio] 13.5 % 11.6-14.6 Erythrocyte distribution wid th standard deviationOrdered By: Sultana Finn on 03-14-2025 Erythrocyte distribution width (RBC) [Ratio] 48.7 fl High 35.1-43.9 Glomerular filtration rate ( GFR) estimation/1.73 sq m using serum, plasma, or whole bOrdered By: Sultana Finn on 03-14-2025 GFR/1.73 sq M.predicted among non-blacks MDRD (S/P/Bld) [Vol rate/Area] 56 mL/min/{1.73_m2} Low >60 Comment on above: mL/min/1.73m2 CKD-EP I Creatinine Equation (2020) Hematocrit Auto (Bld) [Volum e fraction]Ordered By: Sultana Finn on 03-14-2025 Hematocrit (Bld) [Volume fraction] 33.0 % Low 37-47 Hemoglobin measurementOrdere d By: Sultana Finn on 03-14-2025 Hemoglobin (Bld) [Mass/Vol] 11.7 g/dL Low 12.0-15.0 Immature granulocytes/100 WB C Auto (Bld)Ordered By: Sultana Finn on 03-14-2025 Immature granulocytes/100 WBC (Bld) 1.000 % High 0.0-0.9 Comment on above: IG% - Immature Granu locytes (promyelocytes, myelocytes and metamyelocytes) > 1% indicates that a LEFT SHIFT is Present. Laboratory - Chemistry and C hemistry - challengeOrdered By: Sultana Finn on 03-14-2025 AST [Catalytic activity/Vol] 42 U/L High <32 MCV (mean corpuscular volume ) determinationOrdered By: Sultana Finn on 03-14-2025 MCV (RBC) [Entitic vol] 98.2 fL 81-99 Mean corpuscular hemoglobin (MCH) determinationOrdered By: Sultana Finn on 03-14-2025 MCH (RBC) [Entitic mass] 34.8 pg High 27.0-32.0 Mean corpuscular hemoglobin concentration (MCHC) determinationOrdered By: Sultana Finn on 03-14-2025 MCHC (RBC) [Mass/Vol] 35.5 g/dL 32-[address] [facility] Mean platelet volume determi nationOrdered By: Sultana Finn on 03-14-2025 Platelet mean volume (Bld) [Entitic vol] 9.5 fL 6.2-12.0 Monocyte percentageOrdered B y: Sultana Finn on 03-14-2025 Monocytes/100 WBC (Bld) 9.4 % 0-10 Neutrophil percentageOrdered By: Sultana Finn on 03-14-2025 Neutrophils/100 WBC (Bld) 64.0 % 47-70 Nucleated red blood cell per centageOrdered By: Sultana Finn on 03-14-2025 Nucleated RBC/100 WBC (Bld) [Ratio] 0 % 0-5 Oncology Visit Reporton 07 Oncology Visit Report Normal [facility] Platelet countOrdered By: Saurabh Finn on 03-14-2025 Platelets (Bld) [#/Vol] 193 10*3/uL 150-450 Potassium measurement (mass/ volume)Ordered By: Sultana Finn on 03-14-2025 Potassium (Unsp spec) [Mass/Vol] 3.9 mmol/L 3.3-5.1 Comment on above: Hemolysis present, R esults could be affected. RBC Auto (Bld) [#/Vol]Ordere d By: Sultana Finn on 03-14-2025 RBC (Bld) [#/Vol] 3.36 10*6/uL Low 4.2-5.4 [facility] Radiation Oncology Visiton 0 03-14-2025 Radiation Oncology Visit Normal Serum creatinine measurement (mass/volume)Ordered By: Sultana Finn on 03-14-2025 Creatinine [Mass/Vol] 1.05 mg/dL 0.70-1.[address] [facility] Serum globulin measurementOr dered By: Sultana Finn on 03-14-2025 Globulin (S) [Mass/Vol] 2.9 g/dL 2.2-4.2 Serum glucose measurement (m ass/volume)Ordered By: Sultana Finn on 03-14-2025 Glucose [Mass/Vol] 185 mg/dL High 70-99 [facility] Serum or plasma alanine skinner otransferase (ALT) measurementOrdered By: Sultana Finn on 03-14-2025 ALT [Catalytic activity/Vol] 32 U/L <35 Serum or plasma albumin amanda urement (mass/volume)Ordered By: Sultana Finn on 03-14-2025 Albumin [Mass/Vol] 3.7 g/dL 3.4-4.8 [facility] Serum or plasma albumin/glob ulin mass ratioOrdered By: Sultana Finn on 03-14-2025 Albumin/Globulin [Mass ratio] 1.3 {ratio} 0.9-2.4 Serum or plasma alkaline domenico sphatase measurementOrdered By: Sultana Finn on 03-14-2025 ALP [Catalytic activity/Vol] 181 U/L High 35-104 Serum or plasma calcium amanda urement (mass/volume)Ordered By: Sultana Finn on 03-14-2025 Calcium [Mass/Vol] 9.8 mg/dL 7.6-11.0 [facility] Serum or plasma urea nitroge n measurement (mass/volume)Ordered By: Sultana Finn on 03-14-2025 Urea nitrogen [Mass/Vol] 19 mg/dL 4-19 Sodium levelOrdered By: [facility] 03-14-2025 Sodium [Moles/Vol] 139 mmol/L 133-145 [facility] Total proteinOrdered By: Chaka Españalabach on 03-14-2025 Protein [Mass/Vol] 6.7 g/dL 5.9-8.4 [facility] White blood cell (WBC) count Ordered By: [facility] on 03-14-2025 WBC (Bld) [#/Vol] 5.2 10*3/uL 4.4-11.0 [facility] CA 15-3on 02-15-2025 CA 15-3 27.3 U/mL Abnormal 0.0-25.0 Comment on above: Order Comment: ADD O N FROM TODAY, THANKS Result Comment: [facility] Electrochemiluminescence Immunoassay(ECLIA)Values obtained with different assay methods or kits cannotbe used interchangeably. Results cannot be interpreted asabsolute evidence of the presence or absence of malignantdisease.Performed at: [address] [id number] Director: Reese Willingham PhD, Phone: [phone] Performed By: #### L 3104.2882, L3398.5041 #### [address] [place], [address] CA 27.29on 02-15-2025 CA 27.29 35.2 U/mL Normal 0.0-38.6 Comment on above: Order Comment: ADD O N FROM TODAY, THANKS Result Comment: [facility] [employer] Immunochemiluminometric Methodology (ICMA)Values obtained with different assay methods or kits cannotbe used interchangeably. Results cannot be interpreted asabsolute evidence of the presence or absence of malignantdisease. Performed By: #### L 3100.5030, L3100.5040 #### [address] [place], [address] Absolute lymphocyte countOrd ered By: [place] Magui on 02-14-2025 Lymphocytes Auto (Unsp spec) [#/Vol] 0.69 10*3/uL Low 0.83-4.51 Absolute neutrophil countOrd ered By: [facility] on 02-14-2025 Neutrophils (Bld) [#/Vol] 0.9 10*3/uL Low 2.0-7.7 Anion gap in Serum or Plasma Ordered By: Myron [facility] on 02-14-2025 Anion gap [Moles/Vol] 12 mmol/L 5-[address] [facility] Automated lymphocyte count a s percentage of total leukocytesOrdered By: Myron Magui on 02-14-2025 Lymphocytes/100 WBC Auto (Unsp spec) 32.9 % 19-41 BUN/creatinine ratioOrdered By: [facility] on 02-14-2025 Urea nitrogen/Creatinine [Mass ratio] 22.3 mg/mg High 10-20 Basophil percentageOrdered B y: [facility] on 02-14-2025 Basophils/100 WBC (Bld) 2.4 % High 0-1 Bilirubin, totalOrdered By: Myron Kilgore on 02-14-2025 Bilirubin [Mass/Vol] 0.38 mg/dL 0.00-1.30 [facility] Blood polychromasia detectio n by light microscopyOrdered By: Myron [facility] on 02-14-2025 Polychromasia LM Ql (Bld) 1+ CA 15-3Ordered By: Sultana dumont on 02-14-2025 CA 15-3 27.3 U/mL High 0.0-25.0 Comment on above: [facility] El ectrochemiluminescence Immunoassay(ECLIA)Values obtained with different assay methods or kits cannotbe used interchangeably. Results cannot be interpreted asabsolute evidence of the presence or absence of malignantdisease.Performed at: - [facility] [address] [id number] Director: Reese Willingham PhD, Phone: [phone] CA 27.29Ordered By: Sultana butler on 02-14-2025 CA 27.29 35.2 U/mL 0.0-38.6 Comment on above: [employer] Immu nochemiluminometric Methodology (ICMA)Values obtained with different assay methods or kits cannotbe used interchangeably. Results cannot be interpreted asabsolute evidence of the presence or absence of malignantdisease. CBC W/Diff, Automatedon PLT EST A Normal ADEQ Comment on above: Performed By: #### L 504.2610, L500.4050, L100.0100 #### [address] [place], [address] POLYCHROMASIA 1+ Normal Comment on above: Performed By: #### L 504.2610, L500.4050, L100.0100 #### [address] [place], [address] Carbon dioxide, total [Moles /volume] in Central venous bloodOrdered By: Myron Calvillo on 02-14-2025 CO2 [Moles/Vol] 27.0 mmol/L 21.0-32.0 Chloride assayOrdered By: Destinee Calvillo on 02-14-2025 Chloride [Moles/Vol] 99 mmol/L 98-108 [facility] Comprehensive Metabolic Prof ilon 02-14-2025 Albumin [Mass/Vol] 3.8 g/dL Normal 3.4-4.8 [facility] Comment on above: Performed By: #### L 504.2610, L500.4050, L100.0100 #### [address] [place], [address] Albumin/Globulin [Mass ratio] 1.4 {ratio} Normal 0.9-2.4 Comment on above: Performed By: #### L 504.2610, L500.4050, L100.0100 #### [address] [place], [address] ALK PHOS 160 U/L High 35-104 Comment on above: Performed By: #### L 504.2610, L500.4050, L100.0100 #### [address] [place], [address] ALT [Catalytic activity/Vol] 33 U/L Normal <=34 Comment on above: Performed By: #### L 504.2610, L500.4050, L100.0100 #### [address] [place], [address] AST [Catalytic activity/Vol] 59 U/L High <=31 Comment on above: Performed By: #### L 504.2610, L500.4050, L100.0100 #### [address] [place], [address] Bilirubin [Mass/Vol] 0.38 mg/dL Normal 0.00-1.30 [facility] Comment on above: Performed By: #### L 504.2610, L500.4050, L100.0100 #### [address] [place], [address] BUN/CRE 22.3 RATIO High 10-20 Comment on above: Performed By: #### L 504.2610, L500.4050, L100.0100 #### [address] [place], [address] Calcium [Mass/Vol] 9.6 mg/dL Normal 7.6-11.0 [facility] Comment on above: Performed By: #### L 504.2610, L500.4050, L100.0100 #### [address] [place], [address] Chloride [Moles/Vol] 99 mmol/L Normal 98-108 [facility] Comment on above: Performed By: #### L 504.2610, L500.4050, L100.0100 #### [address] [place], [address] CO2 [Moles/Vol] 27.0 mmol/L Normal 21.0-32.0 Comment on above: Performed By: #### L 504.2610, L500.4050, L100.0100 #### [address] [place], [address] Creatinine [Mass/Vol] 1.13 mg/dL Normal 0.70-1.[address] [facility] Comment on above: Performed By: #### L 504.2610, L500.4050, L100.0100 #### [address] [place], [address] ECRCL 55.63 ml/min Normal 50-250 Comment on above: Performed By: #### L 504.2610, L500.4050, L100.0100 #### [address] [place], [address] GAP 12 Normal 5-15 Comment on above: Performed By: #### L 504.2610, L500.4050, L100.0100 #### [address] [place], [address] GFR/1.73 sq M.predicted among non-blacks MDRD (S/P/Bld) [Vol rate/Area] 52 mL/min/{1.73_m2} Low >60 Comment on above: Result Comment: mL/m in/1.73m2 CKD-EPI Creatinine Equation (2020) Performed By: #### L 504.2610, L500.4050, L100.0100 #### [address] [place], [address] Globulin (S) [Mass/Vol] 2.8 g/dL Normal 2.2-4.2 Comment on above: Performed By: #### L 504.2610, L500.4050, L100.0100 #### [address] [place], [address] Glucose [Mass/Vol] 160 mg/dL High 70-99 [facility] Comment on above: Performed By: #### L 504.2610, L500.4050, L100.0100 #### [address] [place], [address] Potassium [Moles/Vol] 4.2 mmol/L Normal 3.3-5.[address] [facility] Comment on above: Performed By: #### L 504.2610, L500.4050, L100.0100 #### [address] [place], [address] Sodium [Moles/Vol] 139 mmol/L Normal 133-145 [facility] Comment on above: Performed By: #### L 504.2610, L500.4050, L100.0100 #### [address] [place], [address] T PROT 6.6 g/dL Normal 5.9-8.4 Comment on above: Performed By: #### L 504.2610, L500.4050, L100.0100 #### [address] [place], [address] Urea nitrogen [Mass/Vol] 25 mg/dL High 4-19 Comment on above: Performed By: #### L 504.2610, L500.4050, L100.0100 #### [address] [place], [place], [id number] Eosinophil percentageOrdered By: Myron Calvillo on 02-14-2025 Eosinophils/100 WBC (Bld) 5.7 % High 0-5 Erythrocyte distribution wid th ratioOrdered By: Myron Calvillo on 02-14-2025 Erythrocyte distribution width (RBC) [Ratio] 13.8 % 11.6-14.6 Erythrocyte distribution wid th standard deviationOrdered By: [facility] Erythrocyte distribution width (RBC) [Ratio] 52.3 fl High 35.1-43.9 Glomerular filtration rate ( GFR) estimation/1.73 sq m using serum, plasma, or whole bOrdered By: [facility] on 02-14-2025 GFR/1.73 sq M.predicted among non-blacks MDRD (S/P/Bld) [Vol rate/Area] 52 mL/min/{1.73_m2} Low >60 Comment on above: mL/min/1.73m2 CKD-EP I Creatinine Equation (2020) Hematocrit Auto (Bld) [Volum e fraction]Ordered By: Myron Calvillo on 02-14-2025 Hematocrit (Bld) [Volume fraction] 32.2 % Low 37-47 Hemoglobin measurementOrdere d By: Myron Calvillo on 02-14-2025 Hemoglobin (Bld) [Mass/Vol] 11.1 g/dL Low 12.0-15.0 Immature granulocytes/100 WB C Auto (Bld)Ordered By: Myron Calvillo on 02-14-2025 Immature granulocytes/100 WBC (Bld) 0.500 % 0.0-0.9 Comment on above: IG% - Immature Granu locytes (promyelocytes, myelocytes and metamyelocytes) > 1% indicates that a LEFT SHIFT is Present. LDHon 02-14-2025 LDH 196 U/L Normal 84-246 Comment on above: Order Comment: 1 Performed By: #### L 504.2610, L500.4050, L100.0100 #### [id number] [place], [id number] Laboratory - Chemistry and C hemistry - challengeOrdered By: Myron Calvillo on 02-14-2025 AST [Catalytic activity/Vol] 59 U/L High <32 Lactate dehydrogenase (LDH) measurementOrdered By: Myron Calvillo on 02-14-2025 LDH [Catalytic activity/Vol] 196 U/L 84-246 MCV (mean corpuscular volume ) determinationOrdered By: Myron Calvillo on 02-14-2025 MCV (RBC) [Entitic vol] 101.9 fL High 81-99 Mean corpuscular hemoglobin (MCH) determinationOrdered By: Myron Calvillo on 02-14-2025 MCH (RBC) [Entitic mass] 35.1 pg High 27.0-32.0 Mean corpuscular hemoglobin concentration (MCHC) determinationOrdered By: Myron Calvillo on 02-14-2025 MCHC (RBC) [Mass/Vol] 34.5 g/dL 32-[address] [facility] Mean platelet volume determi nationOrdered By: Myron Calvillo on 02-14-2025 Platelet mean volume (Bld) [Entitic vol] 9.8 fL 6.2-12.0 Monocyte percentageOrdered B y: Myron Calvillo on 02-14-2025 Monocytes/100 WBC (Bld) 14.3 % High 0-10 Neutrophil percentageOrdered By: Myron Calvillo on 02-14-2025 Neutrophils/100 WBC (Bld) 44.2 % Low 47-70 Nucleated red blood cell per centageOrdered By: Myron Calvillo on 02-14-2025 Nucleated RBC/100 WBC (Bld) [Ratio] 1.0 % 0-5 Oncology Visit Reporton Oncology Visit Report Normal [facility] Platelet countOrdered By: Destinee Calvillo on 02-14-2025 Platelets (Bld) [#/Vol] 161 10*3/uL 150-450 Platelet estimateOrdered By: Myron Calvillo on 02-14-2025 Platelets LM Ql (Bld) A ADEQ [facility] Potassium measurement (mass/ volume)Ordered By: Myron Calvillo on 02-14-2025 Potassium (Unsp spec) [Mass/Vol] 4.2 mmol/L 3.3-5.1 RBC Auto (Bld) [#/Vol]Ordere d By: Myron Calvillo on 02-14-2025 RBC (Bld) [#/Vol] 3.16 10*6/uL Low 4.2-5.4 [facility] Serum creatinine measurement (mass/volume)Ordered By: Myron Calvillo on 02-14-2025 Creatinine [Mass/Vol] 1.13 mg/dL 0.70-1.[address] [facility] Serum globulin measurementOr dered By: Myron Calvillo on 02-14-2025 Globulin (S) [Mass/Vol] 2.8 g/dL 2.2-4.2 Serum glucose measurement (m ass/volume)Ordered By: Myron Calvillo on 02-14-2025 Glucose [Mass/Vol] 160 mg/dL High 70-99 [facility] Serum or plasma alanine skinner otransferase (ALT) measurementOrdered By: Myron Calvillo on 02-14-2025 ALT [Catalytic activity/Vol] 33 U/L <35 Serum or plasma albumin amanda urement (mass/volume)Ordered By: Myron Calvillo on 02-14-2025 Albumin [Mass/Vol] 3.8 g/dL 3.4-4.8 [facility] Serum or plasma albumin/glob ulin mass ratioOrdered By: Myron Calvillo on 02-14-2025 Albumin/Globulin [Mass ratio] 1.4 {ratio} 0.9-2.4 Serum or plasma alkaline domencio sphatase measurementOrdered By: Myron Calvillo on 02-14-2025 ALP [Catalytic activity/Vol] 160 U/L High 35-104 Serum or plasma calcium amanda urement (mass/volume)Ordered By: Myron Calvillo on 02-14-2025 Calcium [Mass/Vol] 9.6 mg/dL 7.6-11.0 [facility] Serum or plasma urea nitroge n measurement (mass/volume)Ordered By: Myron Calvillo on 02-14-2025 Urea nitrogen [Mass/Vol] 25 mg/dL High 4-19 Sodium levelOrdered By: Yaakov Calvillo on 02-14-2025 Sodium [Moles/Vol] 139 mmol/L 133-145 [facility] Total proteinOrdered By: Kavon Calvillo on 02-14-2025 Protein [Mass/Vol] 6.6 g/dL 5.9-8.4 [facility] White blood cell (WBC) count Ordered By: Myron Calvillo on 02-14-2025 WBC (Bld) [#/Vol] 2.1 10*3/uL Low 4.4-11.0 [facility] Radiation Oncology Visiton 0 02-12-2025 Radiation Oncology Visit Normal Radiation Oncology Visiton 0 02-11-2025 Radiation Oncology Visit Normal Radiation Oncology Visiton 0 01-24-2025 Radiation Oncology Visit Normal Absolute lymphocyte countOrd ered By: Myron Calvillo on 01-17-2025 Lymphocytes Auto (Unsp spec) [#/Vol] 0.70 10*3/uL Low 0.83-4.51 Absolute neutrophil countOrd ered By: Myron Calvillo on 01-17-2025 Neutrophils (Bld) [#/Vol] 1.2 10*3/uL Low 2.0-7.7 Anion gap in Serum or Plasma Ordered By: Myron Calvillo on 01-17-2025 Anion gap [Moles/Vol] 11 mmol/L 5-[address] [facility] Automated lymphocyte count a s percentage of total leukocytesOrdered By: Myron Calvillo on 01-17-2025 Lymphocytes/100 WBC Auto (Unsp spec) 28.9 % 19-41 BUN/creatinine ratioOrdered By: Myron Calvillo on 01-17-2025 Urea nitrogen/Creatinine [Mass ratio] 16.4 mg/mg 10-20 Basophil percentageOrdered B y: Myron Calvillo on 01-17-2025 Basophils/100 WBC (Bld) 2.1 % High 0-1 Bilirubin, totalOrdered By: Myron Calvillo on 01-17-2025 Bilirubin [Mass/Vol] 0.34 mg/dL 0.00-1.30 [facility] CBC W/Diff, Automatedon 05-0 8-2025 Absolute Lymph 0.70 X10 3/uL Low 0.83-4.51 Comment on above: Performed By: #### L 500.4050, L100.0100 #### [id number] [place], [address] Absolute Neut 1.2 X10 3/uL Low 2.0-7.7 Comment on above: Performed By: #### L 500.4050, L100.0100 #### [address] [place], [address] Basophils/100 WBC (Bld) 2.1 % High 0-1 Comment on above: Performed By: #### L 500.4050, L100.0100 #### [address] [place], [address] Eosinophils/100 WBC (Bld) 7.9 % High 0-5 Comment on above: Performed By: #### L 500.4050, L100.0100 #### [address] [place], [address] Erythrocyte distribution width (RBC) [Ratio] 13.8 % Normal 11.6-14.6 Comment on above: Performed By: #### L 500.4050, L100.0100 #### [address] [place], [address] Hematocrit (Bld) [Volume fraction] 30.8 % Low 37-47 Comment on above: Performed By: #### L 500.4050, L100.0100 #### [address] [place], [address] Hemoglobin (Bld) [Mass/Vol] 11.0 g/dL Low 12.0-15.0 Comment on above: Performed By: #### L 500.4050, L100.0100 #### [address] [place], [address] IG% 0.000 Normal 0.0-0.9 Comment on above: Result Comment: IG% - Immature Granulocytes (promyelocytes, myelocytes andmetamyelocytes) > 1% indicates that a LEFT SHIFT is Present. Performed By: #### L 500.4050, L100.0100 #### [address] [place], [address] Lymphocytes/100 WBC (Bld) 28.9 % Normal 19-41 Comment on above: Performed By: #### L 500.4050, L100.0100 #### [address] [place], [address] MCH (RBC) [Entitic mass] 35.7 pg High 27.0-32.0 Comment on above: Performed By: #### L 500.4050, L100.0100 #### [address] [place], [address] MCHC (RBC) [Mass/Vol] 35.7 g/dL Normal 32-[address] [facility] Comment on above: Performed By: #### L 500.4050, L100.0100 #### [address] [place], [address] MCV (RBC) [Entitic vol] 100.0 fL High 81-99 Comment on above: Performed By: #### L 500.4050, L100.0100 #### [address] [place], [address] Monocytes/100 WBC (Bld) 13.6 % High 0-10 Comment on above: Performed By: #### L 500.4050, L100.0100 #### [address] [place], [address] Neutrophils/100 WBC (Bld) 47.5 % Normal 47-70 Comment on above: Performed By: #### L 500.4050, L100.0100 #### [address] [place], [address] Nucleated RBC (Bld) [#/Vol] 0 10*3/uL Normal 0-5 Comment on above: Performed By: #### L 500.4050, L100.0100 #### [address] [place], [address] Platelet mean volume (Bld) [Entitic vol] 9.7 fL Normal 6.2-12.0 Comment on above: Performed By: #### L 500.4050, L100.0100 #### [address] [place], [address] Platelets (Bld) [#/Vol] 145 10*3/uL Low 150-450 Comment on above: Performed By: #### L 500.4050, L100.0100 #### [address] [place], [address] RBC (Bld) [#/Vol] 3.08 10*6/uL Low 4.2-5.4 [facility] Comment on above: Performed By: #### L 500.4050, L100.0100 #### [address] [place], [address] RDW SD 49.9 fl High 35.1-43.9 Comment on above: Performed By: #### L 500.4050, L100.0100 #### [address] [place], [address] WBC (Bld) [#/Vol] 2.4 10*3/uL Low 4.4-11.0 [facility] Comment on above: Performed By: #### L 500.4050, L100.0100 #### [address] [place], [address] Carbon dioxide, total [Moles /volume] in Central venous bloodOrdered By: Myron Calvillo on 01-17-2025 CO2 [Moles/Vol] 25.5 mmol/L 21.0-32.0 Chloride assayOrdered By: Destinee Calvillo on 01-17-2025 Chloride [Moles/Vol] 102 mmol/L 98-108 [facility] Comprehensive Metabolic Prof ilon 01-17-2025 Albumin [Mass/Vol] 3.7 g/dL Normal 3.4-4.8 [facility] Comment on above: Performed By: #### L 500.4050, L100.0100 #### [address] [place], [address] Albumin/Globulin [Mass ratio] 1.3 {ratio} Normal 0.9-2.4 Comment on above: Performed By: #### L 500.4050, L100.0100 #### [address] [place], [address] ALK PHOS 132 U/L High 35-104 Comment on above: Performed By: #### L 500.4050, L100.0100 #### [address] [place], [address] ALT [Catalytic activity/Vol] 12 U/L Normal <=34 Comment on above: Performed By: #### L 500.4050, L100.0100 #### [address] [place], [address] AST [Catalytic activity/Vol] 33 U/L High <=31 Comment on above: Performed By: #### L 500.4050, L100.0100 #### [address] [place], [address] Bilirubin [Mass/Vol] 0.34 mg/dL Normal 0.00-1.30 [facility] Comment on above: Performed By: #### L 500.4050, L100.0100 #### [address] [place], [address] BUN/CRE 16.4 RATIO Normal 10-20 Comment on above: Performed By: #### L 500.4050, L100.0100 #### [address] [place], [address] Calcium [Mass/Vol] 9.6 mg/dL Normal 7.6-11.0 [facility] Comment on above: Performed By: #### L 500.4050, L100.0100 #### [address] [place], [address] Chloride [Moles/Vol] 102 mmol/L Normal 98-108 [facility] Comment on above: Performed By: #### L 500.4050, L100.0100 #### [address] [place], [address] CO2 [Moles/Vol] 25.5 mmol/L Normal 21.0-32.0 Comment on above: Performed By: #### L 500.4050, L100.0100 #### [address] [place], [address] Creatinine [Mass/Vol] 1.17 mg/dL Normal 0.70-1.[address] [facility] Comment on above: Performed By: #### L 500.4050, L100.0100 #### [address] [place], [address] ECRCL 53.86 ml/min Normal 50-250 Comment on above: Performed By: #### L 500.4050, L100.0100 #### [address] [place], [address] GAP 11 Normal 5-15 Comment on above: Performed By: #### L 500.4050, L100.0100 #### [address] [place], [address] GFR/1.73 sq M.predicted among non-blacks MDRD (S/P/Bld) [Vol rate/Area] 50 mL/min/{1.73_m2} Low >60 Comment on above: Result Comment: mL/m in/1.73m2 CKD-EPI Creatinine Equation (2020) Performed By: #### L 500.4050, L100.0100 #### [address] [place], [address] Globulin (S) [Mass/Vol] 2.8 g/dL Normal 2.2-4.2 Comment on above: Performed By: #### L 500.4050, L100.0100 #### [address] [place], [address] Glucose [Mass/Vol] 178 mg/dL High 70-99 [facility] Comment on above: Performed By: #### L 500.4050, L100.0100 #### [address] [place], [address] Potassium [Moles/Vol] 4.2 mmol/L Normal 3.3-5.[address] [facility] Comment on above: Performed By: #### L 500.4050, L100.0100 #### [address] [place], [address] Sodium [Moles/Vol] 139 mmol/L Normal 133-145 [facility] Comment on above: Performed By: #### L 500.4050, L100.0100 #### [address] [place], [address] T PROT 6.4 g/dL Normal 5.9-8.4 Comment on above: Performed By: #### L 500.4050, L100.0100 #### [address] [place], [address] Urea nitrogen [Mass/Vol] 19 mg/dL Normal 4-19 Comment on above: Performed By: #### L 500.4050, L100.0100 #### [address] [place], [address] Eosinophil percentageOrdered By: Myron Calvillo on 01-17-2025 Eosinophils/100 WBC (Bld) 7.9 % High 0-5 Erythrocyte distribution wid th ratioOrdered By: Myron Calvillo on 01-17-2025 Erythrocyte distribution width (RBC) [Ratio] 13.8 % 11.6-14.6 Erythrocyte distribution wid th standard deviationOrdered By: Myron Calvillo on 01-17-2025 Erythrocyte distribution width (RBC) [Ratio] 49.9 fl High 35.1-43.9 Glomerular filtration rate ( GFR) estimation/1.73 sq m using serum, plasma, or whole bOrdered By: Myron Calvillo on 01-17-2025 GFR/1.73 sq M.predicted among non-blacks MDRD (S/P/Bld) [Vol rate/Area] 50 mL/min/{1.73_m2} Low >60 Comment on above: mL/min/1.73m2 CKD-EP I Creatinine Equation (2020) Hematocrit Auto (Bld) [Volum e fraction]Ordered By: Myron Calvillo on 01-17-2025 Hematocrit (Bld) [Volume fraction] 30.8 % Low 37-47 Hemoglobin measurementOrdere d By: Myron Calvillo on 01-17-2025 Hemoglobin (Bld) [Mass/Vol] 11.0 g/dL Low 12.0-15.0 Immature granulocytes/100 WB C Auto (Bld)Ordered By: Myron Calvillo on 01-17-2025 Immature granulocytes/100 WBC (Bld) 0.000 % 0.0-0.9 Comment on above: IG% - Immature Granu locytes (promyelocytes, myelocytes and metamyelocytes) > 1% indicates that a LEFT SHIFT is Present. Laboratory - Chemistry and C hemistry - challengeOrdered By: Myron Calvillo on 01-17-2025 AST [Catalytic activity/Vol] 33 U/L High <32 MCV (mean corpuscular volume ) determinationOrdered By: Myron Calvillo on 01-17-2025 MCV (RBC) [Entitic vol] 100.0 fL High 81-99 Mean corpuscular hemoglobin (MCH) determinationOrdered By: Myron Calvillo on 01-17-2025 MCH (RBC) [Entitic mass] 35.7 pg High 27.0-32.0 Mean corpuscular hemoglobin concentration (MCHC) determinationOrdered By: Myron Calvillo on 01-17-2025 MCHC (RBC) [Mass/Vol] 35.7 g/dL 32-[address] [facility] Mean platelet volume determi nationOrdered By: Myron Calvillo on 01-17-2025 Platelet mean volume (Bld) [Entitic vol] 9.7 fL 6.2-12.0 Monocyte percentageOrdered B y: Myron Calvillo on 01-17-2025 Monocytes/100 WBC (Bld) 13.6 % High 0-10 Neutrophil percentageOrdered By: Myron Calvillo on 01-17-2025 Neutrophils/100 WBC (Bld) 47.5 % 47-70 Nucleated red blood cell per centageOrdered By: Myron Calvillo on 01-17-2025 Nucleated RBC/100 WBC (Bld) [Ratio] 0 % 0-5 Oncology Visit Reporton 050 Oncology Visit Report Normal [facility] Platelet countOrdered By: Destinee Calvillo on 01-17-2025 Platelets (Bld) [#/Vol] 145 10*3/uL Low 150-450 Potassium measurement (mass/ volume)Ordered By: Myron Calvillo on 01-17-2025 Potassium (Unsp spec) [Mass/Vol] 4.2 mmol/L 3.3-5.1 RBC Auto (Bld) [#/Vol]Ordere d By: Myron Calvillo on 01-17-2025 RBC (Bld) [#/Vol] 3.08 10*6/uL Low 4.2-5.4 [facility] Serum creatinine measurement (mass/volume)Ordered By: Myron Calvillo on 01-17-2025 Creatinine [Mass/Vol] 1.17 mg/dL 0.70-1.[address] [facility] Serum globulin measurementOr dered By: Myron Calvillo on 01-17-2025 Globulin (S) [Mass/Vol] 2.8 g/dL 2.2-4.2 Serum glucose measurement (m ass/volume)Ordered By: Myron Calvillo on 01-17-2025 Glucose [Mass/Vol] 178 mg/dL High 70-99 [facility] Serum or plasma alanine skinner otransferase (ALT) measurementOrdered By: Myron Calvillo on 01-17-2025 ALT [Catalytic activity/Vol] 12 U/L <35 Serum or plasma albumin amanda urement (mass/volume)Ordered By: Myron Calvillo on 01-17-2025 Albumin [Mass/Vol] 3.7 g/dL 3.4-4.8 [facility] Serum or plasma albumin/glob ulin mass ratioOrdered By: Myron Calvillo on 01-17-2025 Albumin/Globulin [Mass ratio] 1.3 {ratio} 0.9-2.4 Serum or plasma alkaline domenico sphatase measurementOrdered By: Myron Calvillo on 01-17-2025 ALP [Catalytic activity/Vol] 132 U/L High 35-104 Serum or plasma calcium amanda urement (mass/volume)Ordered By: Myron Calvillo on 01-17-2025 Calcium [Mass/Vol] 9.6 mg/dL 7.6-11.0 [facility] Serum or plasma urea nitroge n measurement (mass/volume)Ordered By: Myron Calvillo on 01-17-2025 Urea nitrogen [Mass/Vol] 19 mg/dL 4-19 Sodium levelOrdered By: Yaakov Calvillo on 01-17-2025 Sodium [Moles/Vol] 139 mmol/L 133-145 [facility] Total proteinOrdered By: Kavon Calvillo on 01-17-2025 Protein [Mass/Vol] 6.4 g/dL 5.9-8.4 [facility] White blood cell (WBC) count Ordered By: Myron Calvillo on 01-17-2025 WBC (Bld) [#/Vol] 2.4 10*3/uL Low 4.4-11.0 [facility] PET/CT Tumor Base -Thigh Sub son 01-08-2025 PET/CT Tumor Base -Thigh Subs Normal CA 15-3on 12-21-2024 CA 15-3 28.8 U/mL Abnormal 0.0-25.0 Comment on above: Result Comment: [employer] Electrochemiluminescence Immunoassay(ECLIA)Values obtained with different assay methods or kits cannotbe used interchangeably. Results cannot be interpreted asabsolute evidence of the presence or absence of malignantdisease.Performed at: [facility] Director: Reese Willingham PhD, Phone: [phone] Performed By: #### L 100.0100, L3100.5040, L3100.5030, L500.4050, L3100.2300 #### [id number] [place], [address] CA 27.29on 12-21-2024 CA 27.29 33.5 U/mL Normal 0.0-38.6 Comment on above: Result Comment: [employer] Immunochemiluminometric Methodology (ICMA)Values obtained with different assay methods or kits cannotbe used interchangeably. Results cannot be interpreted asabsolute evidence of the presence or absence of malignantdisease. Performed By: #### L 100.0100, L3100.5040, L3100.5030, L500.4050, L3100.2300 #### [address] [place], [place], [address] Carcinoembryonic Antigenon 0 12-21-2024 CEA 17.3 ng/mL High 0.0-4.7 Comment on above: Result Comment: Nons mokers <3.9 Smokers <5.6[employer] Electrochemiluminescence Immunoassay(ECLIA)Values obtained with different assay methods or kitscannot be used interchangeably. Results cannot beinterpreted as absolute evidence of the presence orabsence of malignant disease. Performed By: #### L 100.0100, L3100.5040, L3100.5030, L500.4050, L3100.2300 #### [address] [place], [place], [id number] CA 15-3Ordered By: Chelsea slade on 12-20-2024 CA 15-3 28.8 U/mL High 0.0-25.0 Comment on above: [employer] El ectrochemiluminescence Immunoassay(ECLIA)Values obtained with different assay methods or kits cannotbe used interchangeably. Results cannot be interpreted asabsolute evidence of the presence or absence of malignantdisease.Performed at: [employer] [facility] [id number] Director: Reese Willingham PhD, Phone: [phone] CA 27.29Ordered By: Chelsea connelly on 12-20-2024 CA 27.29 33.5 U/mL 0.0-38.6 Comment on above: [employer]aur Immu nochemiluminometric Methodology (ICMA)Values obtained with different assay methods or kits cannotbe used interchangeably. Results cannot be interpreted asabsolute evidence of the presence or absence of malignantdisease. CBC W/Diff, Automatedon 12-11 Absolute Lymph 1.32 X10 3/uL Normal 0.83-4.51 Comment on above: Performed By: #### L 100.0100, L3100.5040, L3100.5030, L500.4050, L3100.2300 #### [address] [place], [address] Absolute Neut 1.8 X10 3/uL Low 2.0-7.7 Comment on above: Performed By: #### L 100.0100, L3100.5040, L3100.5030, L500.4050, L3100.2300 #### [address] [place], [address] Basophils/100 WBC (Bld) 1.3 % High 0-1 Comment on above: Performed By: #### L 100.0100, L3100.5040, L3100.5030, L500.4050, L3100.2300 #### [address] [place], [address] Eosinophils/100 WBC (Bld) 3.7 % Normal 0-5 Comment on above: Performed By: #### L 100.0100, L3100.5040, L3100.5030, L500.4050, L3100.2300 #### [address] [place], [address] Erythrocyte distribution width (RBC) [Ratio] 14.0 % Normal 11.6-14.6 Comment on above: Performed By: #### L 100.0100, L3100.5040, L3100.5030, L500.4050, L3100.2300 #### [address] [place], [address] Hematocrit (Bld) [Volume fraction] 35.1 % Low 37-47 Comment on above: Performed By: #### L 100.0100, L3100.5040, L3100.5030, L500.4050, L3100.2300 #### [address] [place], [address] Hemoglobin (Bld) [Mass/Vol] 12.3 g/dL Normal 12.0-15.0 Comment on above: Performed By: #### L 100.0100, L3100.5040, L3100.5030, L500.4050, L3100.2300 #### [address] [place], [address] IG% 0.500 Normal 0.0-0.9 Comment on above: Result Comment: IG% - Immature Granulocytes (promyelocytes, myelocytes andmetamyelocytes) > 1% indicates that a LEFT SHIFT is Present. Performed By: #### L 100.0100, L3100.5040, L3100.5030, L500.4050, L3100.2300 #### [address] [place], [address] Lymphocytes/100 WBC (Bld) 34.7 % Normal 19-41 Comment on above: Performed By: #### L 100.0100, L3100.5040, L3100.5030, L500.4050, L3100.2300 #### [address] [place], [address] MCH (RBC) [Entitic mass] 35.5 pg High 27.0-32.0 Comment on above: Performed By: #### L 100.0100, L3100.5040, L3100.5030, L500.4050, L3100.2300 #### [address] [place], [address] MCHC (RBC) [Mass/Vol] 35.0 g/dL Normal 32-[address] [facility] Comment on above: Performed By: #### L 100.0100, L3100.5040, L3100.5030, L500.4050, L3100.2300 #### [address] [place], [address] MCV (RBC) [Entitic vol] 101.4 fL High 81-99 Comment on above: Performed By: #### L 100.0100, L3100.5040, L3100.5030, L500.4050, L3100.2300 #### [address] [place], [address] Monocytes/100 WBC (Bld) 11.6 % High 0-10 Comment on above: Performed By: #### L 100.0100, L3100.5040, L3100.5030, L500.4050, L3100.2300 #### [address] [place], [address] Neutrophils/100 WBC (Bld) 48.2 % Normal 47-70 Comment on above: Performed By: #### L 100.0100, L3100.5040, L3100.5030, L500.4050, L3100.2300 #### [address] [place], [address] Nucleated RBC (Bld) [#/Vol] 0 10*3/uL Normal 0-5 Comment on above: Performed By: #### L 100.0100, L3100.5040, L3100.5030, L500.4050, L3100.2300 #### [address] [place], [address] Platelet mean volume (Bld) [Entitic vol] 10.2 fL Normal 6.2-12.0 Comment on above: Performed By: #### L 100.0100, L3100.5040, L3100.5030, L500.4050, L3100.2300 #### [address] [place], [address] Platelets (Bld) [#/Vol] 158 10*3/uL Normal 150-450 Comment on above: Performed By: #### L 100.0100, L3100.5040, L3100.5030, L500.4050, L3100.2300 #### [address] [place], [address] RBC (Bld) [#/Vol] 3.46 10*6/uL Low 4.2-5.4 [facility] Comment on above: Performed By: #### L 100.0100, L3100.5040, L3100.5030, L500.4050, L3100.2300 #### [address] [place], [address] RDW SD 51.9 fl High 35.1-43.9 Comment on above: Performed By: #### L 100.0100, L3100.5040, L3100.5030, L500.4050, L3100.2300 #### [address] [place], [address] WBC (Bld) [#/Vol] 3.8 10*3/uL Low 4.4-11.0 [facility] Comment on above: Performed By: #### L 100.0100, L3100.5040, L3100.5030, L500.4050, L3100.2300 #### [address] [place], [address] Comprehensive Metabolic Prof [facility] 12-20-2024 Albumin [Mass/Vol] 3.7 g/dL Normal 3.4-4.8 [facility] Comment on above: Performed By: #### L 100.0100, L3100.5040, L3100.5030, L500.4050, L3100.2300 #### [id number] [place], [address] Albumin/Globulin [Mass ratio] 1.3 {ratio} Normal 0.9-2.4 Comment on above: Performed By: #### L 100.0100, L3100.5040, L3100.5030, L500.4050, L3100.2300 #### [id number] [place], [address] ALK PHOS 154 U/L High 35-104 Comment on above: Performed By: #### L 100.0100, L3100.5040, L3100.5030, L500.4050, L3100.2300 #### [id number] [place], [address] ALT [Catalytic activity/Vol] 37 U/L High <=34 Comment on above: Performed By: #### L 100.0100, L3100.5040, L3100.5030, L500.4050, L3100.2300 #### [id number] [place], [address] AST [Catalytic activity/Vol] 50 U/L High <=31 Comment on above: Performed By: #### L 100.0100, L3100.5040, L3100.5030, L500.4050, L3100.2300 #### [id number] [place], [address] Bilirubin [Mass/Vol] 0.35 mg/dL Normal 0.00-1.30 [facility] Comment on above: Performed By: #### L 100.0100, L3100.5040, L3100.5030, L500.4050, L3100.2300 #### [id number] [place], [address] BUN/CRE 16.1 RATIO Normal 10-20 Comment on above: Performed By: #### L 100.0100, L3100.5040, L3100.5030, L500.4050, L3100.2300 #### [id number] [place], [address] Calcium [Mass/Vol] 9.7 mg/dL Normal 7.6-11.0 [facility] Comment on above: Performed By: #### L 100.0100, L3100.5040, L3100.5030, L500.4050, L3100.2300 #### [id number] [place], [address] Chloride [Moles/Vol] 101 mmol/L Normal 98-108 [facility] Comment on above: Performed By: #### L 100.0100, L3100.5040, L3100.5030, L500.4050, L3100.2300 #### [id number] [place], [address] CO2 [Moles/Vol] 26.8 mmol/L Normal 21.0-32.0 Comment on above: Performed By: #### L 100.0100, L3100.5040, L3100.5030, L500.4050, L3100.2300 #### [address] [place], [address] Creatinine [Mass/Vol] 1.37 mg/dL High 0.70-1.[address] [facility] Comment on above: Performed By: #### L 100.0100, L3100.5040, L3100.5030, L500.4050, L3100.2300 #### [address] [place], [address] ECRCL 45.87 ml/min Low 50-250 Comment on above: Performed By: #### L 100.0100, L3100.5040, L3100.5030, L500.4050, L3100.2300 #### [address] [place], [address] GAP 13 Normal 5-15 Comment on above: Performed By: #### L 100.0100, L3100.5040, L3100.5030, L500.4050, L3100.2300 #### [id number] [place], [address] GFR/1.73 sq M.predicted among non-blacks MDRD (S/P/Bld) [Vol rate/Area] 41 mL/min/{1.73_m2} Low >60 Comment on above: Result Comment: mL/m in/1.73m2 CKD-EPI Creatinine Equation (2020) Performed By: #### L 100.0100, L3100.5040, L3100.5030, L500.4050, L3100.2300 #### [address] [place], [address] Globulin (S) [Mass/Vol] 2.8 g/dL Normal 2.2-4.2 Comment on above: Performed By: #### L 100.0100, L3100.5040, L3100.5030, L500.4050, L3100.2300 #### [address] [place], [address] Glucose [Mass/Vol] 188 mg/dL High 70-99 [facility] Comment on above: Performed By: #### L 100.0100, L3100.5040, L3100.5030, L500.4050, L3100.2300 #### [address] [place], [address] Potassium [Moles/Vol] 3.8 mmol/L Normal 3.3-5.[address] [facility] Comment on above: Performed By: #### L 100.0100, L3100.5040, L3100.5030, L500.4050, L3100.2300 #### [address] [place], [address] Sodium [Moles/Vol] 141 mmol/L Normal 133-145 [facility] Comment on above: Performed By: #### L 100.0100, L3100.5040, L3100.5030, L500.4050, L3100.2300 #### [address] [place], [address] T PROT 6.5 g/dL Normal 5.9-8.4 Comment on above: Performed By: #### L 100.0100, L3100.5040, L3100.5030, L500.4050, L3100.2300 #### [address] [place], [address] Urea nitrogen [Mass/Vol] 22 mg/dL High 4-19 Comment on above: Performed By: #### L 100.0100, L3100.5040, L3100.5030, L500.4050, L3100.2300 #### [address] [place], [address] Oncology Visit Reporton 12-11 Oncology Visit Report Normal [facility] Serum or plasma carcinoembry onic antigen measurement (mass/volume)Ordered By: Chelsea Anguiano on 12-20-2024 Carcinoembryonic Ag [Mass/Vol] 17.3 ng/mL High 0.0-4.7 Comment on above: Nonsmokers <3.9 Smok ers <5.6[employer] Electrochemiluminescence Immunoassay(ECLIA)Values obtained with different assay methods or kitscannot be used interchangeably. Results cannot beinterpreted as absolute evidence of the presence orabsence of malignant disease. CA 15-3on 11-24-2024 CA 15-3 30.6 U/mL Abnormal 0.0-25.0 Comment on above: Result Comment: [employer] Electrochemiluminescence Immunoassay(ECLIA)Values obtained with different assay methods or kits cannotbe used interchangeably. Results cannot be interpreted asabsolute evidence of the presence or absence of malignantdisease.Performed at: [address] [id number] Director: Reese Willingham PhD, Phone: [phone] Performed By: #### L 3100.5040, L3100.5030, L3100.2300, L100.0100, L500.4050 #### [address] [place], [place], [id number] CA 27.29on 11-24-2024 CA 27.29 29.7 U/mL Normal 0.0-38.6 Comment on above: Result Comment: [facility] Ajubeoaur Immunochemiluminometric Methodology (ICMA)Values obtained with different assay methods or kits cannotbe used interchangeably. Results cannot be interpreted asabsolute evidence of the presence or absence of malignantdisease. Performed By: #### L 3100.5040, L3100.5030, L3100.2300, L100.0100, L500.4050 #### [address] [place], [place], [id number] Carcinoembryonic Antigenon 0 11-24-2024 CEA 12.3 ng/mL High 0.0-4.7 Comment on above: Result Comment: Nons mokers <3.9 Smokers <5.6[employer] Electrochemiluminescence Immunoassay(ECLIA)Values obtained with different assay methods or kitscannot be used interchangeably. Results cannot beinterpreted as absolute evidence of the presence orabsence of malignant disease. Performed By: #### L 3100.5040, L3100.5030, L3100.2300, L100.0100, L500.4050 #### [id number] [place], [place], [id number] Absolute neutrophil countOrd ered By: Sultana Finn on 11-22-2024 Neutrophils (Bld) [#/Vol] 1.0 10*3/uL Low 2.0-7.7 Anion gap in Serum or Plasma Ordered By: Sultana Finn on 11-22-2024 Anion gap [Moles/Vol] 12 mmol/L -[address] [facility] Automated blood erythrocyte countOrdered By: Sultana Finn on 11-22-2024 RBC (Bld) [#/Vol] 3.35 10*6/uL Low 4.2-5.4 [facility] Comment on above: Performed By: #### L 3100.5040, L3100.5030, L3100.2300, L100.0100, L500.4050 #### [address] [place], [place], [id number] Automated blood hematocrit ( percentage)Ordered By: Sultana Finn on 11-22-2024 Hematocrit (Bld) [Volume fraction] 34.3 % Low 37-47 Comment on above: Performed By: #### L 3100.5040, L3100.5030, L3100.2300, L100.0100, L500.4050 #### [address] [place], [address] Automated lymphocyte count a s percentage of total leukocytesOrdered By: Sultana Finn on 11-22-2024 Lymphocytes/100 WBC (Bld) 32.7 % Normal 19-41 Comment on above: Performed By: #### L 3100.5040, L3100.5030, L3100.2300, L100.0100, L500.4050 #### [address] [place], [place], [address] BUN/creatinine ratioOrdered By: Sultana Finn on 11-22-2024 Urea nitrogen/Creatinine [Mass ratio] 17.3 mg/mg 10-20 Basophil percentageOrdered B y: Sultana Aaaksh on 11-22-2024 Basophils/100 WBC (Bld) 1.0 % Normal 0-1 Comment on above: Performed By: #### L 3100.5040, L3100.5030, L3100.2300, L100.0100, L500.4050 #### [address] [place], [address] Bilirubin, totalOrdered By: Sultanajody Finn on 11-22-2024 Bilirubin [Mass/Vol] 0.45 mg/dL Normal 0.00-1.30 [facility] Comment on above: Performed By: #### L 3100.5040, L3100.5030, L3100.2300, L100.0100, L500.4050 #### [address] [place], [address] CBC W/Diff, Automatedon 11-10 Absolute Lymph 0.66 X10 3/uL Low 0.83-4.51 Comment on above: Performed By: #### L 3100.5040, L3100.5030, L3100.2300, L100.0100, L500.4050 #### [address] [place], [address] Absolute Neut 1.0 X10 3/uL Low 2.0-7.7 Comment on above: Performed By: #### L 3100.5040, L3100.5030, L3100.2300, L100.0100, L500.4050 #### [address] [place], [address] IG% 0.000 Normal 0.0-0.9 Comment on above: Result Comment: IG% - Immature Granulocytes (promyelocytes, myelocytes andmetamyelocytes) > 1% indicates that a LEFT SHIFT is Present. Performed By: #### L 3100.5040, L3100.5030, L3100.2300, L100.0100, L500.4050 #### [id number] [place], [address] Nucleated RBC (Bld) [#/Vol] 0 10*3/uL Normal 0-5 Comment on above: Performed By: #### L 3100.5040, L3100.5030, L3100.2300, L100.0100, L500.4050 #### [address] [place], [address] RDW SD 54.3 fl High 35.1-43.9 Comment on above: Performed By: #### L 3100.5040, L3100.5030, L3100.2300, L100.0100, L500.4050 #### [address] [place], [address] Carbon dioxide, total [Moles /volume] in Central venous bloodOrdered By: Sultana Finn on 11-22-2024 CO2 [Moles/Vol] 26.6 mmol/L Normal 21.0-32.0 Comment on above: Performed By: #### L 3100.5040, L3100.5030, L3100.2300, L100.0100, L500.4050 #### [address] [place], [address] Chloride assayOrdered By: Saurabh Finn on 11-22-2024 Chloride [Moles/Vol] 100 mmol/L Normal 98-108 [facility] Comment on above: Performed By: #### L 3100.5040, L3100.5030, L3100.2300, L100.0100, L500.4050 #### [address] [place], [address] Comprehensive Metabolic Prof ilon 11-22-2024 ALK PHOS 114 U/L High 35-104 Comment on above: Performed By: #### L 3100.5040, L3100.5030, L3100.2300, L100.0100, L500.4050 #### [address] [place], [address] BUN/CRE 17.3 RATIO Normal 10-20 Comment on above: Performed By: #### L 3100.5040, L3100.5030, L3100.2300, L100.0100, L500.4050 #### [address] [place], [address] ECRCL 53.71 ml/min Normal 50-250 Comment on above: Performed By: #### L 3100.5040, L3100.5030, L3100.2300, L100.0100, L500.4050 #### [address] [place], [address] GAP 12 Normal 5-15 Comment on above: Performed By: #### L 3100.5040, L3100.5030, L3100.2300, L100.0100, L500.4050 #### [address] [place], [address] GFR/1.73 sq M.predicted among non-blacks MDRD (S/P/Bld) [Vol rate/Area] 50 mL/min/{1.73_m2} Low >60 Comment on above: Result Comment: mL/m in/1.73m2 CKD-EPI Creatinine Equation (2020) Performed By: #### L 3100.5040, L3100.5030, L3100.2300, L100.0100, L500.4050 #### [address] [place], [address] T PROT 6.5 g/dL Normal 5.9-8.4 Comment on above: Performed By: #### L 3100.5040, L3100.5030, L3100.2300, L100.0100, L500.4050 #### [address] [place], [address] Comprehensive Metabolic Prof ilOrdered By: Sultana Finn on 11-22-2024 AST [Catalytic activity/Vol] 56 U/L High <=31 Comment on above: Performed By: #### L 3100.5040, L3100.5030, L3100.2300, L100.0100, L500.4050 #### [address] [place], [place], [phone] Eosinophil percentageOrdered By: Sultana Finn on 11-22-2024 Eosinophils/100 WBC (Bld) 2.5 % Normal 0-5 Comment on above: Performed By: #### L 3100.5040, L3100.5030, L3100.2300, L100.0100, L500.4050 #### [address] [place], [place], [phone] Erythrocyte distribution wid th ratioOrdered By: Sultana Finn on 11-22-2024 Erythrocyte distribution width (RBC) [Ratio] 14.6 % Normal 11.6-14.6 Comment on above: Performed By: #### L 3100.5040, L3100.5030, L3100.2300, L100.0100, L500.4050 #### [address] [place], [place], [address] Erythrocyte distribution wid th standard deviationOrdered By: Sultana Finn on 11-22-2024 Erythrocyte distribution width (RBC) [Entitic vol] 54.3 fL High 35.1-43.9 Estimation of creatinine masoud aranceOrdered By: Sultana Finn on 11-22-2024 Estimated Creatinine Clearance Calc 53.71 ml/min 50-250 GFR/1.73 sq M.predicted aggie g non-blacks MDRD (S/P/Bld) [Vol rate/Area]Ordered By: Sultana Finn on 11-22-2024 Estimated GFR (MDRD) Non-Af Amer 50 Low >60 Comment on above: mL/min/1.73m2 CKD-EP I Creatinine Equation (2020) Hemoglobin measurementOrdere d By: Sultana Finn on 11-22-2024 Hemoglobin (Bld) [Mass/Vol] 11.9 g/dL Low 12.0-15.0 Comment on above: Performed By: #### L 3100.5040, L3100.5030, L3100.2300, L100.0100, L500.4050 #### [address] [place], [place], [phone](880) Immature granulocytes/100 WB C Auto (Bld)Ordered By: Sultana Finn on 11-22-2024 Immature granulocytes/100 WBC (Bld) 0.000 % 0.0-0.9 Comment on above: IG% - Immature Granu locytes (promyelocytes, myelocytes and metamyelocytes) > 1% indicates that a LEFT SHIFT is Present. Lymphocytes Auto (Unsp spec) [#/Vol]Ordered By: Sultana Finn on 11-22-2024 Lymphocytes (Bld) [#/Vol] 0.66 10*3/uL Low 0.83-4.51 MCV (mean corpuscular volume ) determinationOrdered By: Sultana Finn on 11-22-2024 MCV (RBC) [Entitic vol] 102.4 fL High 81-99 Comment on above: Performed By: #### L 3100.5040, L3100.5030, L3100.2300, L100.0100, L500.4050 #### [address] [place], [place], [id number] Mean corpuscular hemoglobin (MCH) determinationOrdered By: Sultana Finn on 11-22-2024 MCH (RBC) [Entitic mass] 35.5 pg High 27.0-32.0 Comment on above: Performed By: #### L 3100.5040, L3100.5030, L3100.2300, L100.0100, L500.4050 #### [address] [place], [address] Mean corpuscular hemoglobin concentration (MCHC) determinationOrdered By: Sultana Finn on 11-22-2024 MCHC (RBC) [Mass/Vol] 34.7 g/dL Normal 32-[address] [facility] Comment on above: Performed By: #### L 3100.5040, L3100.5030, L3100.2300, L100.0100, L500.4050 #### [address] [place], [address] Mean platelet volume determi nationOrdered By: Sultana Finn on 11-22-2024 Platelet mean volume (Bld) [Entitic vol] 9.6 fL Normal 6.2-12.0 Comment on above: Performed By: #### L 3100.5040, L3100.5030, L3100.2300, L100.0100, L500.4050 #### [address] [place], [place], [phone] Monocyte percentageOrdered B y: Sultana Finn on 11-22-2024 Monocytes/100 WBC (Bld) 13.4 % High 0-10 Comment on above: Performed By: #### L 3100.5040, L3100.5030, L3100.2300, L100.0100, L500.4050 #### [address] [place], [address] Neutrophil percentageOrdered By: Sultana Finn on 11-22-2024 Neutrophils/100 WBC (Bld) 50.4 % Normal 47-70 Comment on above: Performed By: #### L 3100.5040, L3100.5030, L3100.2300, L100.0100, L500.4050 #### [address] [place], [address] Nucleated red blood cell per centageOrdered By: Sultana Finn on 11-22-2024 Nucleated RBC/100 WBC (Bld) [Ratio] 0 % 0-5 Oncology Visit Reporton 11-10 Oncology Visit Report Normal [facility] Platelet countOrdered By: Saurabh Finn on 11-22-2024 Platelets (Bld) [#/Vol] 138 10*3/uL Low 150-450 Comment on above: Performed By: #### L 3100.5040, L3100.5030, L3100.2300, L100.0100, L500.4050 #### [id number] [place], [place], [id number] Potassium measurement (mass/ volume)Ordered By: Sultana Finn on 11-22-2024 Potassium [Moles/Vol] 4.2 mmol/L Normal 3.3-5.[address] [facility] Comment on above: Performed By: #### L 3100.5040, L3100.5030, L3100.2300, L100.0100, L500.4050 #### [address] [place], [place], [id number] Serum creatinine measurement (mass/volume)Ordered By: Sultana Finn on 11-22-2024 Creatinine [Mass/Vol] 1.17 mg/dL Normal 0.70-1.[address] [facility] Comment on above: Performed By: #### L 3100.5040, L3100.5030, L3100.2300, L100.0100, L500.4050 #### [address] [place], [place], [id number] Serum globulin measurementOr dered By: Sultana Finn on 11-22-2024 Globulin (S) [Mass/Vol] 2.5 g/dL Normal 2.2-4.2 Comment on above: Performed By: #### L 3100.5040, L3100.5030, L3100.2300, L100.0100, L500.4050 #### [address] [place], [place], [id number] Serum glucose measurement (m ass/volume)Ordered By: Sultana Finn on 11-22-2024 Glucose [Mass/Vol] 185 mg/dL High 70-99 [facility] Comment on above: Performed By: #### L 3100.5040, L3100.5030, L3100.2300, L100.0100, L500.4050 #### [address] [place], [address] Serum or plasma alanine skinner otransferase (ALT) measurementOrdered By: Sultana Finn on 11-22-2024 ALT [Catalytic activity/Vol] 37 U/L High <=34 Comment on above: Performed By: #### L 3100.5040, L3100.5030, L3100.2300, L100.0100, L500.4050 #### [address] [place], [place], [phone](900) Serum or plasma albumin amanda urement (mass/volume)Ordered By: Sultana Finn on 11-22-2024 Albumin [Mass/Vol] 3.9 g/dL Normal 3.4-4.8 [facility] Comment on above: Performed By: #### L 3100.5040, L3100.5030, L3100.2300, L100.0100, L500.4050 #### [address] [place], [place], [phone](283) Serum or plasma albumin/glob ulin mass ratioOrdered By: Sultana Finn on 11-22-2024 Albumin/Globulin [Mass ratio] 1.6 {ratio} Normal 0.9-2.4 Comment on above: Performed By: #### L 3100.5040, L3100.5030, L3100.2300, L100.0100, L500.4050 #### [address] [place], [address] Serum or plasma alkaline domenico sphatase measurementOrdered By: Sultana Finn on 11-22-2024 ALP [Catalytic activity/Vol] 114 U/L High 35-104 Serum or plasma calcium amanda urement (mass/volume)Ordered By: Sultana Finn on 11-22-2024 Calcium [Mass/Vol] 9.6 mg/dL Normal 7.6-11.0 [facility] Comment on above: Performed By: #### L 3100.5040, L3100.5030, L3100.2300, L100.0100, L500.4050 #### [address] [place], [address] Serum or plasma urea nitroge n measurement (mass/volume)Ordered By: Sultana Finn on 11-22-2024 Urea nitrogen [Mass/Vol] 20 mg/dL High 4-19 Comment on above: Performed By: #### L 3100.5040, L3100.5030, L3100.2300, L100.0100, L500.4050 #### [address] [place], [place], [phone] Sodium levelOrdered By: Sultana Finn on 11-22-2024 Sodium [Moles/Vol] 139 mmol/L Normal 133-145 [facility] Comment on above: Performed By: #### L 3100.5040, L3100.5030, L3100.2300, L100.0100, L500.4050 #### [address] [place], [place], [id number] Total proteinOrdered By: Chaka Finn on 11-22-2024 Protein [Mass/Vol] 6.5 g/dL 5.9-8.4 [facility] White blood cell (WBC) count Ordered By: Sultana Finn on 11-22-2024 WBC (Bld) [#/Vol] 2.0 10*3/uL Low 4.4-11.0 [facility] Comment on above: Performed By: #### L 3100.5040, L3100.5030, L3100.2300, L100.0100, L500.4050 #### [address] [place], [place], [id number] Anion gap in Serum or Plasma Ordered By: Rae Aguirre on 11-13-2024 Anion gap [Moles/Vol] 15 mmol/L 5-[address] [facility] BUN/creatinine ratioOrdered By: Rae Aguirre on 11-13-2024 Urea nitrogen/Creatinine [Mass ratio] 22.4 mg/mg High 10-20 Bilirubin, totalOrdered By: Rae Aguirre on 11-13-2024 Bilirubin [Mass/Vol] 0.36 mg/dL 0.00-1.30 [facility] Bone Scan Whole Bodyon 11-13 Bone Scan Whole Body Normal [facility] Carbon dioxide, total [Moles /volume] in Central venous bloodOrdered By: Rae Aguirre on 11-13-2024 CO2 [Moles/Vol] 23.2 mmol/L 21.0-32.0 Chloride assayOrdered By: Tahira Aguirre on 11-13-2024 Chloride [Moles/Vol] 100 mmol/L 98-108 [facility] Comprehensive Metabolic Prof ilon 11-13-2024 Albumin [Mass/Vol] 4.1 g/dL Normal 3.4-4.8 [facility] Comment on above: Order Comment: Order Date: 11/09/24Order Info: 0786-1 - CMP Performed By: #### L 500.4050, L503.6005 #### [address] [place], [place], [address] Albumin/Globulin [Mass ratio] 1.5 {ratio} Normal 0.9-2.4 Comment on above: Order Comment: Order Date: 11/09/24Order Info: 0786-1 - CMP Performed By: #### L 500.4050, L503.6005 #### [address] [place], [place], [address] ALK PHOS 157 U/L High 35-104 Comment on above: Order Comment: Order Date: 11/09/24Order Info: 0786-1 - CMP Performed By: #### L 500.4050, L503.6005 #### [address] [place], [address] ALT [Catalytic activity/Vol] 51 U/L High <=34 Comment on above: Order Comment: Order Date: 11/09/24Order Info: 0786-1 - CMP Performed By: #### L 500.4050, L503.6005 #### [address] [place], [address] AST [Catalytic activity/Vol] 58 U/L High <=31 Comment on above: Order Comment: Order Date: 11/09/24Order Info: 0786-1 - CMP Performed By: #### L 500.4050, L503.6005 #### [address] [place], [address] Bilirubin [Mass/Vol] 0.36 mg/dL Normal 0.00-1.30 [facility] Comment on above: Order Comment: Order Date: 11/09/24Order Info: 0786-1 - CMP Performed By: #### L 500.4050, L503.6005 #### [address] [place], [address] BUN/CRE 22.4 RATIO High 10-20 Comment on above: Order Comment: Order Date: 11/09/24Order Info: 0786-1 - CMP Performed By: #### L 500.4050, L503.6005 #### [address] [place], [address] Calcium [Mass/Vol] 9.9 mg/dL Normal 7.6-11.0 [facility] Comment on above: Order Comment: Order Date: 11/09/24Order Info: 0786-1 - CMP Performed By: #### L 500.4050, L503.6005 #### [address] [place], [address] Chloride [Moles/Vol] 100 mmol/L Normal 98-108 [facility] Comment on above: Order Comment: Order Date: 11/09/24Order Info: 0786-1 - CMP Performed By: #### L 500.4050, L503.6005 #### [address] [place], [address] CO2 [Moles/Vol] 23.2 mmol/L Normal 21.0-32.0 Comment on above: Order Comment: Order Date: 11/09/24Order Info: 0786-1 - CMP Performed By: #### L 500.4050, L503.6005 #### [address] [place], [address] Creatinine [Mass/Vol] 1.26 mg/dL High 0.70-1.[address] [facility] Comment on above: Order Comment: Order Date: 11/09/24Order Info: 0786-1 - CMP Performed By: #### L 500.4050, L503.6005 #### [address] [place], [address] GAP 15 Normal 5-15 Comment on above: Order Comment: Order Date: 11/09/24Order Info: 0786-1 - CMP Performed By: #### L 500.4050, L503.6005 #### [address] [place], [address] GFR/1.73 sq M.predicted among non-blacks MDRD (S/P/Bld) [Vol rate/Area] 46 mL/min/{1.73_m2} Low >60 Comment on above: Order Comment: Order Date: 11/09/24Order Info: 0786-1 - CMP Result Comment: mL/m in/1.73m2 CKD-EPI Creatinine Equation (2020) Performed By: #### L 500.4050, L503.6005 #### [address] [place], [address] Globulin (S) [Mass/Vol] 2.8 g/dL Normal 2.2-4.2 Comment on above: Order Comment: Order Date: 11/09/24Order Info: 0786-1 - CMP Performed By: #### L 500.4050, L503.6005 #### [address] [place], [address] Glucose [Mass/Vol] 198 mg/dL High 70-99 [facility] Comment on above: Order Comment: Order Date: 11/09/24Order Info: 0786-1 - CMP Performed By: #### L 500.4050, L503.6005 #### [address] [place], [address] Potassium [Moles/Vol] 4.7 mmol/L Normal 3.3-5.[address] [facility] Comment on above: Order Comment: Order Date: 11/09/24Order Info: 0786-1 - CMP Performed By: #### L 500.4050, L503.6005 #### [address] [place], [address] Sodium [Moles/Vol] 138 mmol/L Normal 133-145 [facility] Comment on above: Order Comment: Order Date: 11/09/24Order Info: 0786-1 - CMP Performed By: #### L 500.4050, [id number] #### [id number] [place], [address] T PROT 6.8 g/dL Normal 5.9-8.4 Comment on above: Order Comment: Order Date: 11/09/24Order Info: 0786-1 - CMP Performed By: #### L 500.4050, [id number] #### [id number] [place], [address] Urea nitrogen [Mass/Vol] 28 mg/dL High 4-19 Comment on above: Order Comment: Order Date: 11/09/24Order Info: 0786-1 - CMP Performed By: #### L 500.4050, [id number] #### [id number] [place], [place], [id number] GFR/1.73 sq M.predicted aggie g non-blacks MDRD (S/P/Bld) [Vol rate/Area]Ordered By: Rae Aguirre on 11-13-2024 Estimated GFR (MDRD) Non-Af Amer 46 Low >60 Comment on above: mL/min/1.73m2 CKD-EP I Creatinine Equation (2020) Glomerular filtration rate ( GFR) estimation/1.73 sq m using serum, plasma, or whole bOrdered By: Rae Aguirre on 11-13-2024 GFR/1.73 sq M.predicted among non-blacks MDRD (S/P/Bld) [Vol rate/Area] 46 mL/min/{1.73_m2} Low >60 Comment on above: mL/min/1.73m2 CKD-EP I Creatinine Equation (2020) Laboratory - Chemistry and C hemistry - challengeOrdered By: Rae Aguirre on 11-13-2024 AST [Catalytic activity/Vol] 58 U/L High <32 Lactic Acidon 11-13-2024 Lactate [Moles/Vol] 2.2 mmol/L Invalid Interpretation Code 0.0-2.0 Comment on above: Order Comment: Order Date: 11/09/24Order Info: 11207-7 - LAY Result Comment: Crit ical Result(s) Called at 11/13/2024 09:58 by Luciano Vuong Madrical results read back by same. Performed By: #### L 500.4050, [id number] #### [id number] [place], [place], [id number] Lactic acid measurementOrder ed By: Rae Aguirre on 11-13-2024 Lactate [Moles/Vol] 2.2 mmol/L High 0.0-2.0 [facility] Comment on above: Critical Result(s) C alled at 11/13/2024 09:58 by Luciano Guzmán to Carolann Long results read back by same. Potassium (Unsp spec) [Mass/ Vol]Ordered By: Rae Aguirre on 11-13-2024 Potassium [Moles/Vol] 4.7 mmol/L 3.3-5.[address] [facility] Potassium measurement (mass/ volume)Ordered By: Rae Aguirre on 11-13-2024 Potassium (Unsp spec) [Mass/Vol] 4.7 mmol/L 3.3-5.1 Serum creatinine measurement (mass/volume)Ordered By: Rae Aguirre on 11-13-2024 Creatinine [Mass/Vol] 1.26 mg/dL High 0.70-1.[address] [facility] Serum globulin measurementOr dered By: Rae Aguirre on 11-13-2024 Globulin (S) [Mass/Vol] 2.8 g/dL 2.2-4.2 Serum glucose measurement (m ass/volume)Ordered By: Rae Aguirre on 11-13-2024 Glucose [Mass/Vol] 198 mg/dL High 70-99 [facility] Serum or plasma alanine skinner otransferase (ALT) measurementOrdered By: Rae Aguirre on 11-13-2024 ALT [Catalytic activity/Vol] 51 U/L High <35 Serum or plasma albumin amanda urement (mass/volume)Ordered By: Rae Aguirre on 11-13-2024 Albumin [Mass/Vol] 4.1 g/dL 3.4-4.8 [facility] Serum or plasma albumin/glob ulin mass ratioOrdered By: Rae Aguirre on 11-13-2024 Albumin/Globulin [Mass ratio] 1.5 {ratio} 0.9-2.4 Serum or plasma alkaline domenico sphatase measurementOrdered By: Rae Aguirre on 11-13-2024 ALP [Catalytic activity/Vol] 157 U/L High 35-104 Serum or plasma calcium amanda urement (mass/volume)Ordered By: Rae Aguirre on 11-13-2024 Calcium [Mass/Vol] 9.9 mg/dL 7.6-11.0 [facility] Serum or plasma urea nitroge n measurement (mass/volume)Ordered By: Rae Aguirre on 11-13-2024 Urea nitrogen [Mass/Vol] 28 mg/dL High 4-19 Sodium levelOrdered By: Luis luis fher Aguirre on 11-13-2024 Sodium [Moles/Vol] 138 mmol/L 133-145 [facility] Total proteinOrdered By: Saima Aguirre on 11-13-2024 Protein [Mass/Vol] 6.8 g/dL 5.9-8.4 [facility] Culture, Blood (WB)on 2024 CUB Blood cultures x2, f rom two different sites No growth in 5 days. Normal Comment on above: Performed By: #### M 200.1000 #### [id number] [place], [place], [id number] Calculated very low density lipoprotein (VLDL) cholesterol measurementOrdered By: Rae Aguirre on 11-09-2024 Calculated very low density lipoprotein (VLDL) cholesterol measurement 42 mg/dL High 5-40 VLDL Cholesterol 42 mg/dL High -40 LDL calc ser/plasOrdered By: Rae Aguirre on 11-09-2024 Cholesterol in LDL [Mass/Vol] 54 mg/dL Comment on above: Qgrkxjygks=830-102 m g/dL & Higher Ajht=997 mg/dL or greater LDL Cholesterol, Calculated 54 mg/dL Comment on above: Edgefvkhjr=859-141 m g/dL & Higher Whzu=528 mg/dL or greater Lipid Profileon 11-09-2024 CHOL:HDL 2.66 Normal Comment on above: Order Comment: Order Date: 11/01/24Order Info: [id number] - LIPID Performed By: #### L 500.4100 #### [id number] [place], [place], [id number] Cholesterol [Mass/Vol] 155 mg/dL Normal <=200 [facility] Comment on above: Order Comment: Order Date: 11/01/24Order Info: [id number] - LIPID Result Comment: Chol esterol level, Desirable <200 mg/dLBorderline high cholesterol 200-239 mg/dLHigh cholesterol >=240 mg/dLRecommendations of the NCEP Adult Treatment Panel for thefollowing risk-cutoff thresholds for the [place] Americanpopulation. Performed By: #### L 500.4100 #### [id number] [place], [address] Cholesterol in HDL [Mass/Vol] 58 mg/dL Normal Comment on above: Order Comment: Order Date: 11/01/24Order Info: [id number] - LIPID Result Comment: [place] onal Cholesterol Education Program (NCEP) guidelines:<40 mg/dL: Low HDL-cholesterol (major risk factor for CHD)>= 60 mg/dL: High HDL-cholesterol (negative risk factor forCHD)HDL-cholesterol is affected by a number of factors, e.g.smoking, exercise, hormones, sex and age. Performed By: #### L 500.4100 #### [id number] [place], [address] Cholesterol in LDL [Mass/Vol] 54 mg/dL Normal Comment on above: Order Comment: Order Date: 11/01/24Order Info: [id number] - LIPID Result Comment: Bord hhbuau=858-018 mg/dL Higher Rlwd=541 mg/dL or greater Performed By: #### L 500.4100 #### [id number] [place], [address] Cholesterol in VLDL [Mass/Vol] 42 mg/dL High 5-40 Comment on above: Order Comment: Order Date: 11/01/24Order Info: [id number] - LIPID Performed By: #### L 500.4100 #### [id number] [place], [address] Triglyceride [Mass/Vol] 212 mg/dL High Comment on above: Order Comment: Order Date: 11/01/24Order Info: [id number] - LIPID Result Comment: The drugs N-Acetylcysteine and Metamizole may falselydepress this assay.Normal range: <150 mg/dLBorderline High: 150-199 mg/dLHigh: 200-499 mg/dLVery High: >500 mg/dL Performed By: #### L 500.4100 #### [id number] [place], [address] Screening total cholesterol/ high density lipoprotein (HDL) cholesterol ratioOrdered By: Rae Aguirre on 11-09-2024 Cholesterol.total/Chol esterol in HDL [Mass ratio] 2.66 {ratio} Serum or plasma cholesterol in HDL measurement (mass/volume)Ordered By: Rae Aguirre on 11-09-2024 Cholesterol in HDL [Mass/Vol] 58 mg/dL >40 Comment on above: National Cholesterol Education Program (NCEP) guidelines:<40 mg/dL: Low HDL-cholesterol (major risk factor for CHD)>= 60 mg/dL: High HDL-cholesterol (negative risk factor for CHD)HDL-cholesterol is affected by a number of factors, e.g. smoking, exercise, hormones, sex and age. Serum or plasma cholesterol measurement (mass/volume)Ordered By: Rae Aguirre on 11-09-2024 Cholesterol [Mass/Vol] 155 mg/dL <201 [facility] Comment on above: Cholesterol level, D esirable <200 mg/dLBorderline high cholesterol 200-239 mg/dLHigh cholesterol >=240 mg/dLRecommendations of the NCEP Adult Treatment Panel for the following risk-cutoff thresholds for the [place] population. Triglycerides measurementOrd ered By: Rae Aguirre on 11-09-2024 Triglyceride [Mass/Vol] 212 mg/dL High <199 Comment on above: The drugs N-Acetylcy steine and Metamizole may falsely depress this assay. Normal range: <150 mg/dLBorderline High: 150-199 mg/dLHigh: 200-499 mg/dLVery High: >500 mg/dL Urine Cultureon 11-07-2024 [facility] Below infection leve l. Mixed Gram Pos Gram Neg Org [place] Count <1000 MIXC Mixed contaminants. Submit a new specimen if indicated. Normal Comment on above: Performed By: #### M 100.2200 #### [id number] [place], [address] 12 Lead EKGon 11-05-2024 12 Lead EKG Normal Abdomen/Pelvis W IV Cont ONL Yon 11-05-2024 Abdomen/Pelvis W IV Cont ONLY Normal Absolute lymphocyte countOrd ered By: Trever Terry on 11-05-2024 Lymphocytes Auto (Unsp spec) [#/Vol] 0.95 10*3/uL 0.83-4.51 Absolute neutrophil countOrd ered By: Trever Terry on 11-05-2024 Neutrophils (Bld) [#/Vol] 1.6 10*3/uL Low 2.0-7.7 Albumin to globulin ratioOrd ered By: Trever Terry on 11-05-2024 Albumin/Globulin [Mass ratio] 0.9 {ratio} 0.9-2.4 Automated lymphocyte count a s percentage of total leukocytesOrdered By: Trever Terry on 11-05-2024 Lymphocytes/100 WBC Auto (Unsp spec) 32.1 % 19-41 BNP (brain natriuretic pepti de measurement)Ordered By: Trever Terry on 11-05-2024 Natriuretic peptide B (Bld) [Mass/Vol] 9.5 pg/mL 0-100 BNP,B-Type NATRIURETIC PEPTI Florencia 11-05-2024 Natriuretic peptide B (Bld) [Mass/Vol] 9.5 pg/mL Normal 0-100 Comment on above: Performed By: #### L 501.4020, L503.6005, L500.4050, L503.6620, L100.0100, L501.2450 #### [id number] [place], [address] Bacteria LM.HPF (Urine sed) [#/Area]Ordered By: Trever Terry on 11-05-2024 Urine Bacteria RARE /hpf None Seen Basophil percentageOrdered B y: Trever Terry on 11-05-2024 Basophils/100 WBC (Bld) 2.0 % High 0-1 Bilirubin Test strip Ql (U)O rdered By: Trever Terry on 11-05-2024 Bilirubin Ql (U) Negative Negative Bilirubin, totalOrdered By: Trever Terry on 11-05-2024 Bilirubin [Mass/Vol] 0.50 mg/dL 0.20-1.00 [facility] Comment on above: For patients on eltr ombopag therapy, use of Dimension [place] TBIL is not recommended. Blood cultureOrdered By: La Terry on 11-05-2024 Bacteria identified Cx Nom (Bld) No growth in 5 days. Blood urea nitrogen (BUN)/cr eatinine ratioOrdered By: Trever Terry on 11-05-2024 Urea nitrogen/Creatinine [Mass ratio] 15.6 mg/mg 10-20 Brain/Head without Contrasto n 11-05-2024 Brain/Head without Contrast Normal CBC W/Diff, Automatedon 10-14 Absolute Lymph 0.95 X10 3/uL Normal 0.83-4.51 Comment on above: Performed By: #### L 501.4020, L503.6005, L500.4050, L503.6620, L100.0100, L501.2450 #### [id number] [place], [address] Absolute Neut 1.6 X10 3/uL Low 2.0-7.7 Comment on above: Performed By: #### L 501.4020, L503.6005, L500.4050, L503.6620, L100.0100, L501.2450 #### [id number] [place], [address] Basophils/100 WBC (Bld) 2.0 % High 0-1 Comment on above: Performed By: #### L 501.4020, L503.6005, L500.4050, L503.6620, L100.0100, L501.2450 #### [id number] [place], [address] Eosinophils/100 WBC (Bld) 2.4 % Normal 0-5 Comment on above: Performed By: #### L 501.4020, L503.6005, L500.4050, L503.6620, L100.0100, L501.2450 #### [id number] [place], [address] Erythrocyte distribution width (RBC) [Ratio] 14.1 % Normal 11.6-14.6 Comment on above: Performed By: #### L 501.4020, L503.6005, L500.4050, L503.6620, L100.0100, L501.2450 #### [id number] [place], [address] Hematocrit (Bld) [Volume fraction] 39.3 % Normal 37-47 Comment on above: Performed By: #### L 501.4020, L503.6005, L500.4050, L503.6620, L100.0100, L501.2450 #### [id number] [place], [address] Hemoglobin (Bld) [Mass/Vol] 13.5 g/dL Normal 12.0-15.0 Comment on above: Performed By: #### L 501.4020, L503.6005, L500.4050, L503.6620, L100.0100, L501.2450 #### [id number] [place], [address] IG% 0.300 Normal 0.0-0.9 Comment on above: Result Comment: IG% - Immature Granulocytes (promyelocytes, myelocytes andmetamyelocytes) > 1% indicates that a LEFT SHIFT is Present. Performed By: #### L 501.4020, L503.6005, L500.4050, L503.6620, L100.0100, L501.2450 #### [id number] [place], [address] Lymphocytes/100 WBC (Bld) 32.1 % Normal 19-41 Comment on above: Performed By: #### L 501.4020, L503.6005, L500.4050, L503.6620, L100.0100, L501.2450 #### [id number] [place], [address] MCH (RBC) [Entitic mass] 34.6 pg High 27.0-32.0 Comment on above: Performed By: #### L 501.4020, L503.6005, L500.4050, L503.6620, L100.0100, L501.2450 #### [id number] [place], [address] MCHC (RBC) [Mass/Vol] 34.4 g/dL Normal 32-[address] [facility] Comment on above: Performed By: #### L 501.4020, L503.6005, L500.4050, L503.6620, L100.0100, L501.2450 #### [id number] [place], [address] MCV (RBC) [Entitic vol] 100.8 fL High 81-99 Comment on above: Performed By: #### L 501.4020, L503.6005, L500.4050, L503.6620, L100.0100, L501.2450 #### [address] [place], [address] Monocytes/100 WBC (Bld) 8.8 % Normal 0-10 Comment on above: Performed By: #### L 501.4020, L503.6005, L500.4050, L503.6620, L100.0100, L501.2450 #### [id number] [place], [address] Neutrophils/100 WBC (Bld) 54.4 % Normal 47-70 Comment on above: Performed By: #### L 501.4020, L503.6005, L500.4050, L503.6620, L100.0100, L501.2450 #### [id number] [place], [address] Nucleated RBC (Bld) [#/Vol] 0 10*3/uL Normal 0-5 Comment on above: Performed By: #### L 501.4020, L503.6005, L500.4050, L503.6620, L100.0100, L501.2450 #### [id number] [place], [address] Platelet mean volume (Bld) [Entitic vol] 9.6 fL Normal 6.2-12.0 Comment on above: Performed By: #### L 501.4020, L503.6005, L500.4050, L503.6620, L100.0100, L501.2450 #### [id number] [place], [address] Platelets (Bld) [#/Vol] 208 10*3/uL Normal 150-450 Comment on above: Performed By: #### L 501.4020, L503.6005, L500.4050, L503.6620, L100.0100, L501.2450 #### [id number] [place], [address] RBC (Bld) [#/Vol] 3.90 10*6/uL Low 4.2-5.4 [facility] Comment on above: Performed By: #### L 501.4020, L503.6005, L500.4050, L503.6620, L100.0100, L501.2450 #### [id number] [place], [address] RDW SD 51.8 fl High 35.1-43.9 Comment on above: Performed By: #### L 501.4020, L503.6005, L500.4050, L503.6620, L100.0100, L501.2450 #### [id number] [place], [address] WBC (Bld) [#/Vol] 3.0 10*3/uL Low 4.4-11.0 [facility] Comment on above: Performed By: #### L 501.4020, L503.6005, L500.4050, L503.6620, L100.0100, L501.2450 #### [id number] [place], [address] Carbon dioxide measurementOr dered By: Trever Terry on 11-05-2024 CO2 [Moles/Vol] 29.0 mmol/L 21.0-32.0 Chest 1 View (Portable)on Chest 1 View (Portable) Normal Chloride measurementOrdered By: Trever Terry on 11-05-2024 Chloride [Moles/Vol] 98 mmol/L 98-107 [facility] Comprehensive Metabolic Prof ilon 11-05-2024 Albumin [Mass/Vol] 3.6 g/dL Normal 3.2-5.0 [facility] Comment on above: Order Comment: 'TROP ' Serial specimen #1, #2 or #3: 1 Performed By: #### L 501.4020, L503.6005, L500.4050, L503.6620, L100.0100, L501.2450 #### [id number] [place], [address] Albumin/Globulin [Mass ratio] 0.9 {ratio} Normal 0.9-2.4 Comment on above: Order Comment: 'TROP ' Serial specimen #1, #2 or #3: 1 Performed By: #### L 501.4020, L503.6005, L500.4050, L503.6620, L100.0100, L501.2450 #### [id number] [place], [address] ALK P 198 U/L High 45-117 Comment on above: Order Comment: 'TROP ' Serial specimen #1, #2 or #3: 1 Performed By: #### L 501.4020, L503.6005, L500.4050, L503.6620, L100.0100, L501.2450 #### [id number] [place], [address] ALT [Catalytic activity/Vol] 71 U/L High 13-56 Comment on above: Order Comment: 'TROP ' Serial specimen #1, #2 or #3: 1 Performed By: #### L 501.4020, L503.6005, L500.4050, L503.6620, L100.0100, L501.2450 #### [id number] [place], [address] AST [Catalytic activity/Vol] 93 U/L High 15-37 Comment on above: Order Comment: 'TROP ' Serial specimen #1, #2 or #3: 1 Performed By: #### L 501.4020, L503.6005, L500.4050, L503.6620, L100.0100, L501.2450 ####[facility] [address] [place], [address] Bilirubin [Mass/Vol] 0.50 mg/dL Normal 0.20-1.00 [facility] Comment on above: Order Comment: 'TROP ' Serial specimen #1, #2 or #3: 1 Result Comment: For patients on eltrombopag therapy, use of Dimension [place] TBIL is not recommended. Performed By: #### L 501.4020, L503.6005, L500.4050, L503.6620, L100.0100, L501.2450 #### [id number] [place], [address] BUN/CRE 15.6 RATIO Normal 10-20 Comment on above: Order Comment: 'TROP ' Serial specimen #1, #2 or #3: 1 Performed By: #### L 501.4020, L503.6005, L500.4050, L503.6620, L100.0100, L501.2450 #### [id number] [place], [address] CA,Total 9.8 mg/dL Normal 8.5-10.1 Comment on above: Order Comment: 'TROP ' Serial specimen #1, #2 or #3: 1 Performed By: #### L 501.4020, L503.6005, L500.4050, L503.6620, L100.0100, L501.2450 #### [id number] [place], [address] Chloride [Moles/Vol] 98 mmol/L Normal 98-107 [facility] Comment on above: Order Comment: 'TROP ' Serial specimen #1, #2 or #3: 1 Performed By: #### L 501.4020, L503.6005, L500.4050, L503.6620, L100.0100, L501.2450 #### [id number] [place], [address] CO2 [Moles/Vol] 29.0 mmol/L Normal 21.0-32.0 Comment on above: Order Comment: 'TROP ' Serial specimen #1, #2 or #3: 1 Performed By: #### L 501.4020, L503.6005, L500.4050, L503.6620, L100.0100, L501.2450 #### [id number] [place], [address] Creatinine [Mass/Vol] 1.54 mg/dL High 0.55-1.[address] [facility] Comment on above: Order Comment: 'TROP ' Serial specimen #1, #2 or #3: 1 Result Comment: The validity of the calculated GFR GFRAA in patients over70 years has not been determined. Clinical correlation isessential. Performed By: #### L 501.4020, L503.6005, L500.4050, L503.6620, L100.0100, L501.2450 #### [id number] [place], [address] ECRCL 40.19 ml/min Normal Comment on above: Order Comment: 'TROP ' Serial specimen #1, #2 or #3: 1 Performed By: #### L 501.4020, L503.6005, L500.4050, L503.6620, L100.0100, L501.2450 #### [id number] [place], [address] EST GFR - AA 43 mL/min Low >60 Comment on above: Order Comment: 'TROP ' Serial specimen #1, #2 or #3: 1 Result Comment: Afri can Canadian GFR Calc Performed By: #### L 501.4020, L503.6005, L500.4050, L503.6620, L100.0100, L501.2450 #### [id number] [place], [address] GAP 8 Normal 5-15 Comment on above: Order Comment: 'TROP ' Serial specimen #1, #2 or #3: 1 Performed By: #### L 501.4020, L503.6005, L500.4050, L503.6620, L100.0100, L501.2450 #### [address] [place], [address] GFR/1.73 sq M.predicted among non-blacks MDRD (S/P/Bld) [Vol rate/Area] 35 mL/min/{1.73_m2} Low >60 Comment on above: Order Comment: 'TROP ' Serial specimen #1, #2 or #3: 1 Result Comment: Non- GFR Calc Performed By: #### L 501.4020, L503.6005, L500.4050, L503.6620, L100.0100, L501.2450 #### [id number] [place], [address] Globulin (S) [Mass/Vol] 3.9 g/dL Normal 2.2-4.2 Comment on above: Order Comment: 'TROP ' Serial specimen #1, #2 or #3: 1 Performed By: #### L 501.4020, L503.6005, L500.4050, L503.6620, L100.0100, L501.2450 #### [id number] [place], [address] Glucose [Mass/Vol] 241 mg/dL High 74-106 [facility] Comment on above: Order Comment: 'TROP ' Serial specimen #1, #2 or #3: 1 Result Comment: Gluc ose result greater than or equal to 200 mg/dLsuggests DIABETES MELLITUS per A.D.A. criteria. Performed By: #### L 501.4020, L503.6005, L500.4050, L503.6620, L100.0100, L501.2450 #### [id number] [place], [address] Potassium [Moles/Vol] 3.9 mmol/L Normal 3.5-5.[address] [facility] Comment on above: Order Comment: 'TROP ' Serial specimen #1, #2 or #3: 1 Performed By: #### L 501.4020, L503.6005, L500.4050, L503.6620, L100.0100, L501.2450 #### [id number] [place], [address] Sodium [Moles/Vol] 134 mmol/L Low 136-145 [facility] Comment on above: Order Comment: 'TROP ' Serial specimen #1, #2 or #3: 1 Performed By: #### L 501.4020, L503.6005, L500.4050, L503.6620, L100.0100, L501.2450 #### [id number] [place], [address] T PROT 7.5 g/dL Normal 6.4-8.2 Comment on above: Order Comment: 'TROP ' Serial specimen #1, #2 or #3: 1 Performed By: #### L 501.4020, L503.6005, L500.4050, L503.6620, L100.0100, L501.2450 #### [id number] [place], [address] Urea nitrogen [Mass/Vol] 24 mg/dL High 7-18 Comment on above: Order Comment: 'TROP ' Serial specimen #1, #2 or #3: 1 Performed By: #### L 501.4020, L503.6005, L500.4050, L503.6620, L100.0100, L501.2450 #### [address] [place], [address] Emergency Department Summary on 11-05-2024 Emergency Department Summary Normal Eosinophil percentageOrdered By: Trever Terry on 11-05-2024 Eosinophils/100 WBC (Bld) 2.4 % 0-5 Epithelial cells.squamous LM Ql (Urine sed)Ordered By: Trever Terry on 11-05-2024 Epithelial cells.squamous LM.HPF (Urine sed) [#/Area] 0 /[HPF] 5-10 Erythrocyte distribution wid th ratioOrdered By: Trever Terry on 11-05-2024 Erythrocyte distribution width (RBC) [Ratio] 14.1 % 11.6-14.6 Erythrocyte distribution wid th standard deviationOrdered By: Trever Terry on 11-05-2024 Erythrocyte distribution width (RBC) [Entitic vol] 51.8 fL High 35.1-43.9 Erythrocyte distribution width (RBC) [Ratio] 51.8 fl High 35.1-43.9 Estimated glomerular filtrat ion rate (GFR) AmericanOrdered By: Trever Terry on 11-05-2024 Estimated GFR (MDRD) Amer 43 mL/min Low >60 Comment on above: GFR Calc Estimation of creatinine masoud aranceOrdered By: Trever Terry on 11-05-2024 Estimated Creatinine Clearance Calc 40.19 ml/min Glomerular filtration rate ( GFR) estimationOrdered By: Trever Terry on 11-05-2024 Estimated GFR (MDRD) Non-Af Amer 35 mL/min Low >60 Comment on above: Non- GFR Calc GFR/1.73 sq M.predicted among non-blacks MDRD (S/P/Bld) [Vol rate/Area] 35 mL/min/{1.73_m2} Low >60 Comment on above: Non- GFR Calc Glucose Ql (U)Ordered By: peter Terry on 11-05-2024 Glucose (U) [Mass/Vol] 1000 mg/dL High Normal [facility] Glucose measurementOrdered B y: Trever Terry on 11-05-2024 Glucose [Mass/Vol] 241 mg/dL High 74-106 [facility] Comment on above: Glucose result great er than or equal to 200 mg/dLsuggests DIABETES MELLITUS per A.D.A. criteria. Hematocrit Auto (Bld) [Volum e fraction]Ordered By: Trever Terry on 11-05-2024 Hematocrit (Bld) [Volume fraction] 39.3 % 37-47 Hemoglobin measurementOrdere d By: Trever Terry on 11-05-2024 Hemoglobin (Bld) [Mass/Vol] 13.5 g/dL 12.0-15.0 Immature granulocytes/100 WB C Auto (Bld)Ordered By: Trever Terry on 11-05-2024 Immature granulocytes/100 WBC (Bld) 0.300 % 0.0-0.9 Comment on above: IG% - Immature Granu locytes (promyelocytes, myelocytes and metamyelocytes) > 1% indicates that a LEFT SHIFT is Present. Influenza virus A and B and SARS-CoV-2 (COVID-19) and Respiratory syncytial virus RNAOrdered By: Trever Terry on 11-05-2024 SARS-CoV-2 (COVID-19) RNA WES+probe Ql (Unsp spec) Ketones Test strip Ql (U)Ord ered By: Trever Terry on 11-05-2024 Ketones Ql (U) Negative Negative L501.4020on 11-05-2024 TROPONIN-I HS 6 pg/mL Normal 3.0-54.0 Comment on above: Order Comment: 'TROP ' Serial specimen #1, #2 or #3: 1 Result Comment: Manjit brewster Note: New Test Units and Gender Specific Reference Ranges. For more information see Policy Stat Procedure [place] High Sensitivity Troponin (TNIH) and attachments. Performed By: #### L 501.4020, L503.6005, L500.4050, L503.6620, L100.0100, L501.2450 #### [id number] [place], [place], [id number] Laboratory - Chemistry and C hemistry - challengeOrdered By: Trever Terry on 11-05-2024 AST [Catalytic activity/Vol] 93 U/L High 15-37 Lactic Acidon 11-05-2024 Lactate [Moles/Vol] 2.4 mmol/L Invalid Interpretation Code 0.4-1.9 Comment on above: Order Comment: Y Result Comment: Crit ical Result(s) Called at: 22:34:25 11/05/2024 by:Yaima Singh to [facility]. Results read back by same. Performed By: #### L 503.6005 #### [id number] [place], [address] Lactate [Moles/Vol] 2.6 mmol/L Invalid Interpretation Code 0.4-1.9 Comment on above: Order Comment: Y Result Comment: Crit ical Result(s) Called at: 19:44:45 11/05/2024 [facility] Results read back by same. Performed By: #### L 501.4020, L503.6005, L500.4050, L503.6620, L100.0100, L501.2450 #### [id number] [place], [address] Lactic acid measurementOrder ed By: Trever Terry on 11-05-2024 Lactate [Moles/Vol] 2.4 mmol/L High 0.4-2.0 [facility] Comment on above: Critical Result(s) C alled at: 22:34:25 11/05/2024 by: Yaima Singh to [facility]. Results read back by same. Lipaseon 11-05-2024 Lipase [Catalytic activity/Vol] 29 U/L Low 73-393 Comment on above: Order Comment: 'TROP ' Serial specimen #1, #2 or #3: 1 Performed By: #### L 501.4020, L503.6005, L500.4050, L503.6620, L100.0100, L501.2450 #### [id number] [place], [place], [id number] Lipase measurementOrdered By : Trever Terry on 11-05-2024 Lipase [Catalytic activity/Vol] 29 U/L Low 73-393 Lymphocytes Auto (Unsp spec) [#/Vol]Ordered By: Trever Terry on 11-05-2024 Lymphocytes (Bld) [#/Vol] 0.95 10*3/uL 0.83-4.51 Lymphocytes/100 WBC Auto (Un sp spec)Ordered By: Trever Terry on 11-05-2024 Lymphocytes/100 WBC (Bld) 32.1 % 19-41 M100.678on 11-05-2024 M100.678 SARS-CoV-2 (COVID 19 ) Negative INFLUENZA A Negative INFLUENZA B Negative RSV PCR Negative Normal Comment on above: Performed By: #### M 100.678 #### [id number] [place], [place], [id number] MCV (mean corpuscular volume ) determinationOrdered By: Trever Terry on 11-05-2024 MCV (RBC) [Entitic vol] 100.8 fL High 81-99 Mean corpuscular hemoglobin (MCH) determinationOrdered By: Trever Terry on 11-05-2024 MCH (RBC) [Entitic mass] 34.6 pg High 27.0-32.0 Mean corpuscular hemoglobin concentration (MCHC) determinationOrdered By: Trever Terry on 11-05-2024 MCHC (RBC) [Mass/Vol] 34.4 g/dL 32-[address] [facility] Mean platelet volume determi nationOrdered By: Trever Terry on 11-05-2024 Platelet mean volume (Bld) [Entitic vol] 9.6 fL 6.2-12.0 Microscopic analysis of urin e for red blood cells (RBC)Ordered By: Trever Terry on 11-05-2024 Microscopic analysis of urine for red blood cells (RBC) 0-5 SEEN /hpf 0-5 Urine RBC 0-5 SEEN /hpf 0-5 Monocyte percentageOrdered B y: Trever Terry on 11-05-2024 Monocytes/100 WBC (Bld) 8.8 % 0-10 Mucus LM Ql (Urine sed)Order ed By: Trever Terry on 11-05-2024 Mucus Ql (Urine sed) 0 SEEN /hpf [facility] Neutrophil percentageOrdered By: Trever Terry on 11-05-2024 Neutrophils/100 WBC (Bld) 54.4 % 47-70 Nitrite Test strip Ql (U)Ord ered By: Trever Terry on 11-05-2024 Nitrite Ql (U) Negative Negative Nucleated red blood cell per centageOrdered By: Trever Terry on 11-05-2024 Nucleated RBC/100 WBC (Bld) [Ratio] 0 % 0-5 Platelet countOrdered By: David Terry on 11-05-2024 Platelets (Bld) [#/Vol] 208 10*3/uL 150-450 Potassium measurementOrdered By: Trever Terry on 11-05-2024 Potassium [Moles/Vol] 3.9 mmol/L 3.5-5.[address] [facility] Protein Test strip Ql (U)Ord ered By: Trever Terry on 11-05-2024 Protein Ql (U) 15 mg/dl High Negative RBC Auto (Bld) [#/Vol]Ordere d By: Trever Terry on 11-05-2024 RBC (Bld) [#/Vol] 3.90 10*6/uL Low 4.2-5.4 [facility] Serum anion gap measurementO rdered By: Trever Terry on 11-05-2024 Anion gap [Moles/Vol] 8 mmol/L 5-[address] [facility] Serum globulin measurementOr dered By: Trever Terry on 11-05-2024 Globulin (S) [Mass/Vol] 3.9 g/dL 2.2-4.2 Serum or plasma alanine skinner otransferase (ALT) measurementOrdered By: Trever Terry on 11-05-2024 ALT [Catalytic activity/Vol] 71 U/L High 13-56 Serum or plasma albumin amanda urement (mass/volume)Ordered By: Trever Terry on 11-05-2024 Albumin [Mass/Vol] 3.6 g/dL 3.2-5.0 [facility] Serum or plasma alkaline domenico sphatase measurementOrdered By: Trever Terry on 11-05-2024 ALP [Catalytic activity/Vol] 198 U/L High 45-117 Serum or plasma calcium amanda urement (mass/volume)Ordered By: Trever Terry on 11-05-2024 Calcium [Mass/Vol] 9.8 mg/dL 8.5-10.1 [facility] Serum or plasma creatinine m easurement (mass/volume)Ordered By: Trever Terry on 11-05-2024 Creatinine [Mass/Vol] 1.54 mg/dL High 0.55-1.[address] [facility] Comment on above: The validity of the calculated GFR & GFRAA in patients over 70 years has not been determined. Clinical correlation is essential. Serum or plasma urea nitroge n measurement (mass/volume)Ordered By: Trever Terry on 11-05-2024 Urea nitrogen [Mass/Vol] 24 mg/dL High 7-18 Sodium levelOrdered By: Vlad Terry on 11-05-2024 Sodium [Moles/Vol] 134 mmol/L Low 136-145 [facility] Squamous epithelial cells de tection in urine sediment by light microscopyOrdered By: Trever Terry on 11-05-2024 Epithelial cells.squamous LM Ql (Urine sed) 0-5 SEEN /hpf 5-10 Total proteinOrdered By: La Terry on 11-05-2024 Protein [Mass/Vol] 7.5 g/dL 6.4-8.2 [facility] Troponin IOrdered By: Trever Terry on 11-05-2024 Troponin I 6 pg/mL 3.0-54.0 Comment on above: Please Note: New Ellie t Units and Gender Specific Reference Ranges. For more information see Policy Stat Procedure [place] High Sensitivity Troponin (TNIH) and attachments. Troponin I High Sensitivity 6 pg/mL 3.0-54.0 Comment on above: Please Note: New Ellie t Units and Gender Specific Reference Ranges. For more information see Policy Stat Procedure [place] High Sensitivity Troponin (TNIH) and attachments. Urinalysis, Completeon 11-05 BACTERIA RARE Normal None Seen Comment on above: Order Comment: YOGESH CTOR TO SPECIFY Performed By: #### L 400.0001 #### [id number] [place] [address] EPI,SQUAMOUS 0-5 SEEN Normal 5-10 Comment on above: Order Comment: [facility] CTOR TO SPECIFY Performed By: #### L 400.0001 #### [id number] [place] [facility] [address] RBC 0-5 SEEN Normal 0-5 Comment on above: Order Comment: [facility] CTOR TO SPECIFY Performed By: #### L 400.0001 #### [id number] [place] [id number] WBC 10-25 SEEN Normal 0-5 Comment on above: Order Comment: YOGESH CTOR TO SPECIFY Performed By: #### L 400.0001 #### [id number] [place], [address] Mucus Ql (Urine sed) 0 SEEN Normal [facility] Comment on above: Order Comment: YOGESH CTOR TO SPECIFY Performed By: #### L 400.0001 #### [id number] [place] [id number] Urine blood detectionOrdered By: Trever Terry on 11-05-2024 Urine Occult Blood 25 /ul High Negative [facility] Urine clarityOrdered By: aL Terry on 11-05-2024 Clarity (U) Clear Clear Urine color determinationOrd ered By: Trever Terry on 11-05-2024 Color (U) Yellow Yellow Urine cultureOrdered By: La Terry on 11-05-2024 Bacteria identified Cx Nom (U) Mixed Gram Pos & Gram Neg Org Abnormal Urine glucose detectionOrder ed By: Trever Terry on 11-05-2024 Glucose Ql (U) 1000 mg/dl High Normal Urine leukocyte esterase det ection by dipstickOrdered By: Trever Terry on 11-05-2024 Leukocyte esterase Test strip Ql (U) 100 /ul High Negative Urine pHOrdered By: Trever bain on 11-05-2024 pH (U) 6.0 [pH] 5.0 - 8.0 Urine sediment bacteria coun t by microscopy (number/high power field)Ordered By: Trever Terry on 11-05-2024 Bacteria LM.HPF (Urine sed) [#/Area] RARE /hpf None Seen Urine specific gravity measu rementOrdered By: Trever Terry on 11-05-2024 Specific gravity (U) [Rel density] 1.010 1.002-1.030 Urine urobilinogen measureme ntOrdered By: Trever Terry on 11-05-2024 Urobilinogen Ql (U) Normal mg/dl Normal [facility] Urobilinogen Ql (U)Ordered B y: Trever Terry on 11-05-2024 Urine Urobilinogen Normal mg/dl Normal [facility] White blood cell (WBC) count Ordered By: Trever Terry on 11-05-2024 WBC (Bld) [#/Vol] 3.0 10*3/uL Low 4.4-11.0 [facility] White blood cell countOrdere d By: Trever Terry on 11-05-2024 Urine WBC 10-25 SEEN /hpf 0-5 White blood cell count 10-25 SEEN /hpf 0-5 Absolute neutrophil countOrd ered By: Kang Pagan on 10-25-2024 Neutrophils (Bld) [#/Vol] 1.5 10*3/uL Low 2.0-7.7 Basophil percentageOrdered B y: Kang Pagan on 10-25-2024 Basophils/100 WBC (Bld) 1.5 % High 0-1 CBC W/Diff, Automatedon 02-09 14-2024 Absolute Lymph 1.18 X10 3/uL Normal 0.83-4.51 Comment on above: Performed By: #### L 100.0100 #### [id number] [place], [address] Absolute Neut 1.5 X10 3/uL Low 2.0-7.7 Comment on above: Performed By: #### L 100.0100 #### [id number] [place], [address] Basophils/100 WBC (Bld) 1.5 % High 0-1 Comment on above: Performed By: #### L 100.0100 #### [id number] [place], [address] Eosinophils/100 WBC (Bld) 3.9 % Normal 0-5 Comment on above: Performed By: #### L 100.0100 #### [id number] [place], [address] Erythrocyte distribution width (RBC) [Ratio] 14.6 % Normal 11.6-14.6 Comment on above: Performed By: #### L 100.0100 #### [id number] [place], [address] Hematocrit (Bld) [Volume fraction] 35.9 % Low 37-47 Comment on above: Performed By: #### L 100.0100 #### [id number] [place], [address] Hemoglobin (Bld) [Mass/Vol] 12.3 g/dL Normal 12.0-15.0 Comment on above: Performed By: #### L 100.0100 #### [id number] [place], [address] IG% 0.600 Normal 0.0-0.9 Comment on above: Result Comment: IG% - Immature Granulocytes (promyelocytes, myelocytes andmetamyelocytes) > 1% indicates that a LEFT SHIFT is Present. Performed By: #### L 100.0100 #### [id number] [place], [address] Lymphocytes/100 WBC (Bld) 35.8 % Normal 19-41 Comment on above: Performed By: #### L 100.0100 #### [id number] [place], [address] MCH (RBC) [Entitic mass] 34.7 pg High 27.0-32.0 Comment on above: Performed By: #### L 100.0100 #### [id number] [place], [address] MCHC (RBC) [Mass/Vol] 34.3 g/dL Normal 32-[address] [facility] Comment on above: Performed By: #### L 100.0100 #### [id number] [place], [address] MCV (RBC) [Entitic vol] 101.4 fL High 81-99 Comment on above: Performed By: #### L 100.0100 #### [id number] [place], [address] Monocytes/100 WBC (Bld) 14.2 % High 0-10 Comment on above: Performed By: #### L 100.0100 #### [id number] [place], [address] Neutrophils/100 WBC (Bld) 44.0 % Low 47-70 Comment on above: Performed By: #### L 100.0100 #### [id number] [place], [address] Nucleated RBC (Bld) [#/Vol] 0 10*3/uL Normal 0-5 Comment on above: Performed By: #### L 100.0100 #### [id number] [place], [address] Platelet mean volume (Bld) [Entitic vol] 9.5 fL Normal 6.2-12.0 Comment on above: Performed By: #### L 100.0100 #### [address] [place], [address] Platelets (Bld) [#/Vol] 158 10*3/uL Normal 150-450 Comment on above: Performed By: #### L 100.0100 #### [id number] [place], [address] RBC (Bld) [#/Vol] 3.54 10*6/uL Low 4.2-5.4 [facility] Comment on above: Performed By: #### L 100.0100 #### [id number] [place], [address] RDW SD 53.8 fl High 35.1-43.9 Comment on above: Performed By: #### L 100.0100 #### [id number] [place], [address] WBC (Bld) [#/Vol] 3.3 10*3/uL Low 4.4-11.0 [facility] Comment on above: Performed By: #### L 100.0100 #### [id number] [place], [address] Eosinophil percentageOrdered By: Kang Pagan on 10-25-2024 Eosinophils/100 WBC (Bld) 3.9 % 0-5 Erythrocyte distribution wid th ratioOrdered By: Kang Pagan on 10-25-2024 Erythrocyte distribution width (RBC) [Ratio] 14.6 % 11.6-14.6 Erythrocyte distribution wid th standard deviationOrdered By: Kang Pagan on 10-25-2024 Erythrocyte distribution width (RBC) [Entitic vol] 53.8 fL High 35.1-43.9 Hematocrit Auto (Bld) [Volum e fraction]Ordered By: Kang Pagan on 10-25-2024 Hematocrit (Bld) [Volume fraction] 35.9 % Low 37-47 Hemoglobin measurementOrdere d By: Kang Pagan on 10-25-2024 Hemoglobin (Bld) [Mass/Vol] 12.3 g/dL 12.0-15.0 Immature granulocytes/100 WB C Auto (Bld)Ordered By: Kang Pagan on 10-25-2024 Immature granulocytes/100 WBC (Bld) 0.600 % 0.0-0.9 Comment on above: IG% - Immature Granu locytes (promyelocytes, myelocytes and metamyelocytes) > 1% indicates that a LEFT SHIFT is Present. Lymphocytes Auto (Unsp spec) [#/Vol]Ordered By: Kang Pagan on 10-25-2024 Lymphocytes (Bld) [#/Vol] 1.18 10*3/uL 0.83-4.51 Lymphocytes/100 WBC Auto (Un sp spec)Ordered By: Kang Pagan on 10-25-2024 Lymphocytes/100 WBC (Bld) 35.8 % 19-41 MCV (mean corpuscular volume ) determinationOrdered By: Kang Pagan on 10-25-2024 MCV (RBC) [Entitic vol] 101.4 fL High 81-99 Mean corpuscular hemoglobin (MCH) determinationOrdered By: Kang Pagan on 10-25-2024 MCH (RBC) [Entitic mass] 34.7 pg High 27.0-32.0 Mean corpuscular hemoglobin concentration (MCHC) determinationOrdered By: Knag Pagan on 10-25-2024 MCHC (RBC) [Mass/Vol] 34.3 g/dL 32-[address] [facility] Mean platelet volume determi nationOrdered By: Kang Latasha on 10-25-2024 Platelet mean volume (Bld) [Entitic vol] 9.5 fL 6.2-12.0 Monocyte percentageOrdered B y: Laurarufus Latasha on 10-25-2024 Monocytes/100 WBC (Bld) 14.2 % High 0-10 Neutrophil percentageOrdered By: Kang Latasha on 10-25-2024 Neutrophils/100 WBC (Bld) 44.0 % Low 47-70 Nucleated red blood cell per centageOrdered By: [facility] on 10-25-2024 Nucleated RBC/100 WBC (Bld) [Ratio] 0 % 0-5 Oncology Visit Reporton 10-13 Oncology Visit Report Normal [facility] Platelet countOrdered By: Germán Pagan on 10-25-2024 Platelets (Bld) [#/Vol] 158 10*3/uL 150-450 RBC Auto (Bld) [#/Vol]Ordere d By: Kang Latasha on 10-25-2024 RBC (Bld) [#/Vol] 3.54 10*6/uL Low 4.2-5.4 [facility] White blood cell (WBC) count Ordered By: Kang Pagan on 10-25-2024 WBC (Bld) [#/Vol] 3.3 10*3/uL Low 4.4-11.0 [facility] Albumin to globulin ratioOrd ered By: Myron Calvillo on 10-18-2024 Albumin/Globulin [Mass ratio] 1.0 {ratio} 0.9-2.4 Atypical lymphocyte percenta geOrdered By: Myron Calvillo on 10-18-2024 Atypical Lymphocytes 1+ % [facility] Bilirubin, totalOrdered By: Myron Calvillo on 10-18-2024 Bilirubin [Mass/Vol] 0.50 mg/dL 0.20-1.00 [facility] Comment on above: For patients on eltr ombopag therapy, use of Dimension [place] TBIL is not recommended. Blood manual differential co mment interpretation (narrative result)Ordered By: Myron Calvillo on 10-18-2024 Manual differential comment Marcial (Bld) [Interp] SCANNED Comment on above: NEUTROPENIA NOTED Blood urea nitrogen (BUN)/cr eatinine ratioOrdered By: Myron Calvillo on 10-18-2024 Urea nitrogen/Creatinine [Mass ratio] 17.1 mg/mg 10-20 CBC W/Diff, Automatedon ATYPICAL LYMPH 1+ Normal Comment on above: Performed By: #### L 504.2610, L100.0100, L500.4050 #### [id number] [place], [address] SMEAR COMMENT SCANNED Normal Comment on above: Result Comment: NEUT ROPENIA NOTED Performed By: #### L 504.2610, L100.0100, L500.4050 #### [id number] [place], [address] Carbon dioxide measurementOr dered By: Myron Calvillo on 10-18-2024 CO2 [Moles/Vol] 31.0 mmol/L 21.0-32.0 Chloride measurementOrdered By: Myron Calvillo on 10-18-2024 Chloride [Moles/Vol] 103 mmol/L 98-107 [facility] Comprehensive Metabolic Prof ilon 10-18-2024 Albumin [Mass/Vol] 3.2 g/dL Normal 3.2-5.0 [facility] Comment on above: Performed By: #### L 504.2610, L100.0100, L500.4050 #### [id number] [place], [address] Albumin/Globulin [Mass ratio] 1.0 {ratio} Normal 0.9-2.4 Comment on above: Performed By: #### L 504.2610, L100.0100, L500.4050 #### [id number] [place], [address] ALK P 108 U/L Normal 45-117 Comment on above: Performed By: #### L 504.2610, L100.0100, L500.4050 #### [address] [place], [address] ALT [Catalytic activity/Vol] 44 U/L Normal 13-56 Comment on above: Performed By: #### L 504.2610, L100.0100, L500.4050 #### [address] [place], [address] AST [Catalytic activity/Vol] 62 U/L High 15-37 Comment on above: Performed By: #### L 504.2610, L100.0100, L500.4050 #### [id number] [place], [address] Bilirubin [Mass/Vol] 0.50 mg/dL Normal 0.20-1.00 [facility] Comment on above: Result Comment: For patients on eltrombopag therapy, use of Dimension [place] TBIL is not recommended. Performed By: #### L 504.2610, L100.0100, L500.4050 #### [id number] [place], [address] BUN/CRE 17.1 RATIO Normal 10-20 Comment on above: Performed By: #### L 504.2610, L100.0100, L500.4050 #### [id number] [place], [address] CA,Total 9.1 mg/dL Normal 8.5-10.1 Comment on above: Performed By: #### L 504.2610, L100.0100, L500.4050 #### [id number] [place], [address] Chloride [Moles/Vol] 103 mmol/L Normal 98-107 [facility] Comment on above: Performed By: #### L 504.2610, L100.0100, L500.4050 #### [id number] [place], [address] CO2 [Moles/Vol] 31.0 mmol/L Normal 21.0-32.0 Comment on above: Performed By: #### L 504.2610, L100.0100, L500.4050 #### [id number] [place], [address] Creatinine [Mass/Vol] 1.29 mg/dL High 0.55-1.[address] [facility] Comment on above: Result Comment: The validity of the calculated GFR GFRAA in patients over70 years has not been determined. Clinical correlation isessential. Performed By: #### L 504.2610, L100.0100, L500.4050 #### [id number] [place], [address] ECRCL 48.41 ml/min Normal Comment on above: Performed By: #### L 504.2610, L100.0100, L500.4050 #### [id number] [place], [address] EST GFR - AA 52 mL/min Low >60 Comment on above: Result Comment: Afri can [place] GFR Calc Performed By: #### L 504.2610, L100.0100, L500.4050 #### [id number] [place], [address] GAP 5 Normal 5-15 Comment on above: Performed By: #### L 504.2610, L100.0100, L500.4050 #### [id number] [place], [address] GFR/1.73 sq M.predicted among non-blacks MDRD (S/P/Bld) [Vol rate/Area] 43 mL/min/{1.73_m2} Low >60 Comment on above: Result Comment: Non- GFR Calc Performed By: #### L 504.2610, L100.0100, L500.4050 #### [id number] [place], [address] Globulin (S) [Mass/Vol] 3.3 g/dL Normal 2.2-4.2 Comment on above: Performed By: #### L 504.2610, L100.0100, L500.4050 #### [id number] [place], [address] Glucose [Mass/Vol] 203 mg/dL High 74-106 [facility] Comment on above: Result Comment: Gluc ose result greater than or equal to 200 mg/dLsuggests DIABETES MELLITUS per A.D.A. criteria. Performed By: #### L 504.2610, L100.0100, L500.4050 #### [id number] [place], [address] Potassium [Moles/Vol] 3.9 mmol/L Normal 3.5-5.[address] [facility] Comment on above: Performed By: #### L 504.2610, L100.0100, L500.4050 #### [address] [place], [address] Sodium [Moles/Vol] 140 mmol/L Normal 136-145 [facility] Comment on above: Performed By: #### L 504.2610, L100.0100, L500.4050 #### [id number] [place], [address] T PROT 6.5 g/dL Normal 6.4-8.2 Comment on above: Performed By: #### L 504.2610, L100.0100, L500.4050 #### [id number] [place], [address] Urea nitrogen [Mass/Vol] 22 mg/dL High 7-18 Comment on above: Performed By: #### L 504.2610, L100.0100, L500.4050 #### [id number] [place], [address] Estimated glomerular filtrat ion rate (GFR) AmericanOrdered By: Myron Calvillo on 10-18-2024 Estimated GFR (MDRD) Amer 52 mL/min Low >60 Comment on above: GFR Calc Estimation of creatinine masoud aranceOrdered By: Myorn Calvillo on 10-18-2024 Estimated Creatinine Clearance Calc 48.41 ml/min Glomerular filtration rate ( GFR) estimationOrdered By: Myron Calvillo on 10-18-2024 Estimated GFR (MDRD) Non-Af Amer 43 mL/min Low >60 Comment on above: Non- GFR Calc Glucose measurementOrdered B y: Myron Calvillo on 10-18-2024 Glucose [Mass/Vol] 203 mg/dL High 74-106 [facility] Comment on above: Glucose result great er than or equal to 200 mg/dLsuggests DIABETES MELLITUS per A.D.A. criteria. LDHon 10-18-2024 LDH 165 U/L Normal 84-246 Comment on above: Order Comment: 1 Performed By: #### L 504.2610, L100.0100, L500.4050 #### [address] [place], [address] Laboratory - Chemistry and C hemistry - challengeOrdered By: Myron Calvillo on 10-18-2024 AST [Catalytic activity/Vol] 62 U/L High 15-37 Lactate dehydrogenase (LDH) measurementOrdered By: Myron Calvillo on 10-18-2024 LDH [Catalytic activity/Vol] 165 U/L 84-246 Manual differential comment Marcial (Bld) [Interp]Ordered By: Myron Calvillo on 10-18-2024 Differential Comment SCANNED [facility] Comment on above: NEUTROPENIA NOTED Oncology Visit Reporton Oncology Visit Report Normal [facility] Potassium measurementOrdered By: Myron Calvillo on 10-18-2024 Potassium [Moles/Vol] 3.9 mmol/L 3.5-5.[address] [facility] Serum anion gap measurementO rdered By: Myron Calvillo on 10-18-2024 Anion gap [Moles/Vol] 5 mmol/L 5-[address] [facility] Serum globulin measurementOr dered By: Myron Calvillo on 10-18-2024 Globulin (S) [Mass/Vol] 3.3 g/dL 2.2-4.2 Serum or plasma alanine skinner otransferase (ALT) measurementOrdered By: Myron Calvillo on 10-18-2024 ALT [Catalytic activity/Vol] 44 U/L 13-56 Serum or plasma albumin amanda urement (mass/volume)Ordered By: Myron Calvillo on 10-18-2024 Albumin [Mass/Vol] 3.2 g/dL 3.2-5.0 [facility] Serum or plasma alkaline domenico sphatase measurementOrdered By: Myron Calvillo on 10-18-2024 ALP [Catalytic activity/Vol] 108 U/L 45-117 Serum or plasma calcium amanda urement (mass/volume)Ordered By: Myron Calvillo on 10-18-2024 Calcium [Mass/Vol] 9.1 mg/dL 8.5-10.1 [facility] Serum or plasma creatinine m easurement (mass/volume)Ordered By: Myron Calvillo on 10-18-2024 Creatinine [Mass/Vol] 1.29 mg/dL High 0.55-1.[address] [facility] Comment on above: The validity of the calculated GFR & GFRAA in patients over 70 years has not been determined. Clinical correlation is essential. Serum or plasma urea nitroge n measurement (mass/volume)Ordered By: Myron Calvillo on 10-18-2024 Urea nitrogen [Mass/Vol] 22 mg/dL High 7-18 Sodium levelOrdered By: Yaakov Calvillo on 10-18-2024 Sodium [Moles/Vol] 140 mmol/L 136-145 [facility] Total proteinOrdered By: Kavon Calvillo on 10-18-2024 Protein [Mass/Vol] 6.5 g/dL 6.4-8.2 [facility] CBC W/Diff, Automatedon 01- Absolute Lymph 0.65 X10 3/uL Low 0.83-4.51 Comment on above: Performed By: #### L 500.4050, L504.2610, L100.0100 #### [id number] [place], [address] Absolute Neut 1.7 X10 3/uL Low 2.0-7.7 Comment on above: Performed By: #### L 500.4050, L504.2610, L100.0100 #### [id number] [place], [address] Basophils/100 WBC (Bld) 1.1 % High 0-1 Comment on above: Performed By: #### L 500.4050, L504.2610, L100.0100 #### [id number] [place], [address] Eosinophils/100 WBC (Bld) 1.8 % Normal 0-5 Comment on above: Performed By: #### L 500.4050, L504.2610, L100.0100 #### [id number] [place], [address] Erythrocyte distribution width (RBC) [Ratio] 13.5 % Normal 11.6-14.6 Comment on above: Performed By: #### L 500.4050, L504.2610, L100.0100 #### [address] [place], [address] Hematocrit (Bld) [Volume fraction] 35.5 % Low 37-47 Comment on above: Performed By: #### L 500.4050, L504.2610, L100.0100 #### [address] [place], [address] Hemoglobin (Bld) [Mass/Vol] 12.3 g/dL Normal 12.0-15.0 Comment on above: Performed By: #### L 500.4050, L504.2610, L100.0100 #### [address] [place], [address] IG% 0.700 Normal 0.0-0.9 Comment on above: Result Comment: IG% - Immature Granulocytes (promyelocytes, myelocytes andmetamyelocytes) > 1% indicates that a LEFT SHIFT is Present. Performed By: #### L 500.4050, L504.2610, L100.0100 #### [id number] [place], [address] Lymphocytes/100 WBC (Bld) 23.7 % Normal 19-41 Comment on above: Performed By: #### L 500.4050, L504.2610, L100.0100 #### [id number] [place], [address] MCH (RBC) [Entitic mass] 34.8 pg High 27.0-32.0 Comment on above: Performed By: #### L 500.4050, L504.2610, L100.0100 #### [id number] [place], [address] MCHC (RBC) [Mass/Vol] 34.6 g/dL Normal 32-[address] [facility] Comment on above: Performed By: #### L 500.4050, L504.2610, L100.0100 #### [id number] [place], [address] MCV (RBC) [Entitic vol] 100.6 fL High 81-99 Comment on above: Performed By: #### L 500.4050, L504.2610, L100.0100 #### [address] [place], [address] Monocytes/100 WBC (Bld) 10.9 % High 0-10 Comment on above: Performed By: #### L 500.4050, L504.2610, L100.0100 #### [address] [place], [address] Neutrophils/100 WBC (Bld) 61.8 % Normal 47-70 Comment on above: Performed By: #### L 500.4050, L504.2610, L100.0100 #### [id number] [place], [address] Nucleated RBC (Bld) [#/Vol] 0 10*3/uL Normal 0-5 Comment on above: Performed By: #### L 500.4050, L504.2610, L100.0100 #### [id number] [place], [address] Platelet mean volume (Bld) [Entitic vol] 9.8 fL Normal 6.2-12.0 Comment on above: Performed By: #### L 500.4050, L504.2610, L100.0100 #### [id number] [place], [address] Platelets (Bld) [#/Vol] 140 10*3/uL Low 150-450 Comment on above: Performed By: #### L 500.4050, L504.2610, L100.0100 #### [id number] [place], [address] RBC (Bld) [#/Vol] 3.53 10*6/uL Low 4.2-5.4 [facility] Comment on above: Performed By: #### L 500.4050, L504.2610, L100.0100 #### [id number] [place], [address] RDW SD 49.7 fl High 35.1-43.9 Comment on above: Performed By: #### L 500.4050, L504.2610, L100.0100 #### [address] [place], [address] WBC (Bld) [#/Vol] 2.7 10*3/uL Low 4.4-11.0 [facility] Comment on above: Performed By: #### L 500.4050, L504.2610, L100.0100 #### [address] [place], [address] Comprehensive Metabolic Prof iaon 09-20-2024 Albumin [Mass/Vol] 3.1 g/dL Low 3.2-5.0 [facility] Comment on above: Order Comment: 1 Performed By: #### L 500.4050, L504.2610, L100.0100 #### [address] [place], [address] Albumin/Globulin [Mass ratio] 0.9 {ratio} Normal 0.9-2.4 Comment on above: Order Comment: 1 Performed By: #### L 500.4050, L504.2610, L100.0100 #### [address] [place], [address] ALK P 118 U/L High 45-117 Comment on above: Order Comment: 1 Performed By: #### L 500.4050, L504.2610, L100.0100 #### [address] [place], [address] ALT [Catalytic activity/Vol] 36 U/L Normal 13-56 Comment on above: Order Comment: 1 Performed By: #### L 500.4050, L504.2610, L100.0100 #### [address] [place], [address] AST [Catalytic activity/Vol] 41 U/L High 15-37 Comment on above: Order Comment: 1 Performed By: #### L 500.4050, L504.2610, L100.0100 #### [address] [place], [address] Bilirubin [Mass/Vol] 0.50 mg/dL Normal 0.20-1.00 [facility] Comment on above: Order Comment: 1 Result Comment: For patients on eltrombopag therapy, use of Dimension [place] TBIL is not recommended. Performed By: #### L 500.4050, L504.2610, L100.0100 #### [address] [place], [address] BUN/CRE 11.8 RATIO Normal 10-20 Comment on above: Order Comment: 1 Performed By: #### L 500.4050, L504.2610, L100.0100 #### [address] [place], [address] CA,Total 9.1 mg/dL Normal 8.5-10.1 Comment on above: Order Comment: 1 Performed By: #### L 500.4050, L504.2610, L100.0100 #### [address] [place], [address] Chloride [Moles/Vol] 101 mmol/L Normal 98-107 [facility] Comment on above: Order Comment: 1 Performed By: #### L 500.4050, L504.2610, L100.0100 #### [address] [place], [address] CO2 [Moles/Vol] 28.0 mmol/L Normal 21.0-32.0 Comment on above: Order Comment: 1 Performed By: #### L 500.4050, L504.2610, L100.0100 #### [address] [place], [address] Creatinine [Mass/Vol] 1.61 mg/dL High 0.55-1.[address] [facility] Comment on above: Order Comment: 1 Result Comment: The validity of the calculated GFR GFRAA in patients over70 years has not been determined. Clinical correlation isessential. Performed By: #### L 500.4050, L504.2610, L100.0100 #### [address] [place], [address] ECRCL 38.79 ml/min Normal Comment on above: Order Comment: 1 Performed By: #### L 500.4050, L504.2610, L100.0100 #### [address] [place], [address] EST GFR - AA 41 mL/min Low >60 Comment on above: Order Comment: 1 Result Comment: Afri can Canadian GFR Calc Performed By: #### L 500.4050, L504.2610, L100.0100 #### [address] [place], [address] GAP 8 Normal 5-15 Comment on above: Order Comment: 1 Performed By: #### L 500.4050, L504.2610, L100.0100 #### [address] [place], [address] GFR/1.73 sq M.predicted among non-blacks MDRD (S/P/Bld) [Vol rate/Area] 34 mL/min/{1.73_m2} Low >60 Comment on above: Order Comment: 1 Result Comment: Non- GFR Calc Performed By: #### L 500.4050, L504.2610, L100.0100 #### [address] [place], [address] Globulin (S) [Mass/Vol] 3.6 g/dL Normal 2.2-4.2 Comment on above: Order Comment: 1 Performed By: #### L 500.4050, L504.2610, L100.0100 #### [address] [place], [address] Glucose [Mass/Vol] 227 mg/dL High 74-106 [facility] Comment on above: Order Comment: 1 Result Comment: Gluc ose result greater than or equal to 200 mg/dLsuggests DIABETES MELLITUS per A.D.A. criteria. Performed By: #### L 500.4050, L504.2610, L100.0100 #### [address] [place], [address] Potassium [Moles/Vol] 3.8 mmol/L Normal 3.5-5.[address] [facility] Comment on above: Order Comment: 1 Performed By: #### L 500.4050, L504.2610, L100.0100 #### [address] [place], [address] Sodium [Moles/Vol] 137 mmol/L Normal 136-145 [facility] Comment on above: Order Comment: 1 Performed By: #### L 500.4050, L504.2610, L100.0100 #### [address] [place], [address] T PROT 6.7 g/dL Normal 6.4-8.2 Comment on above: Order Comment: 1 Performed By: #### L 500.4050, L504.2610, L100.0100 #### [address] [place], [address] Urea nitrogen [Mass/Vol] 19 mg/dL High 7-18 Comment on above: Order Comment: 1 Performed By: #### L 500.4050, L504.2610, L100.0100 #### [address] [place], [address] LDHon 09-20-2024 LDH 181 U/L Normal 84-246 Comment on above: Order Comment: 1 Performed By: #### L 500.4050, L504.2610, L100.0100 #### [address] [place], [address] Oncology Visit Reporton Oncology Visit Report Normal [facility] CA 15-3on 08-27-2024 CA 15-3 32.1 U/mL Abnormal 0.0-25.0 Comment on above: Result Comment: [employer] Electrochemiluminescence Immunoassay(ECLIA)Values obtained with different assay methods or kits cannotbe used interchangeably. Results cannot be interpreted asabsolute evidence of the presence or absence of malignantdisease.Performed at: [address] [id number] Director: Reese Willingham PhD, Phone: [phone] Performed By: #### L 3100.2300, L100.0100, L3100.5520, L3100.3574 #### [address] [place], [address] CA 27.29on 08-27-2024 CA 27.29 28.3 U/mL Normal 0.0-38.6 Comment on above: Result Comment: [employer] Immunochemiluminometric Methodology (ICMA)Values obtained with different assay methods or kits cannotbe used interchangeably. Results cannot be interpreted asabsolute evidence of the presence or absence of malignantdisease. Performed By: #### L 3100.2300, L100.0100, L3100.5030, L3100.5040 #### [address] [place], [place], [address] Carcinoembryonic Antigenon 1 10-28-2023 CEA 9.9 ng/mL High 0.0-4.7 Comment on above: Result Comment: Nons mokers <3.9 Smokers <5.6[employer] Electrochemiluminescence Immunoassay(ECLIA)Values obtained with different assay methods or kitscannot be used interchangeably. Results cannot beinterpreted as absolute evidence of the presence orabsence of malignant disease. Performed By: #### L 3100.2300, L100.0100, L3100.5030, L3100.5040 #### [address] [place], [place], [id number] CA 15-3Ordered By: Sultana dumont on 08-23-2024 CA 15-3 Antigen 32.1 U/mL High 0.0-25.0 Comment on above: [employer] El ectrochemiluminescence Immunoassay(ECLIA)Values obtained with different assay methods or kits cannotbe used interchangeably. Results cannot be interpreted asabsolute evidence of the presence or absence of malignantdisease.Performed at: [address] [id number] Director: Reese Willingham PhD, Phone: [phone] CA 27.29Ordered By: Sultana butler on 08-23-2024 CA 27.29 28.3 U/mL 0.0-38.6 Comment on above: [employer] Immu nochemiluminometric Methodology (ICMA)Values obtained with different assay methods or kits cannotbe used interchangeably. Results cannot be interpreted asabsolute evidence of the presence or absence of malignantdisease. CBC W/Diff, Automatedon - SMEAR COMMENT SCANNED Normal Comment on above: Performed By: #### L 3100.2300, L100.0100, L3100.5030, L3100.5040 #### [address] [place], [address] Comprehensive Metabolic Prof ilon 08-23-2024 Albumin [Mass/Vol] 3.4 g/dL Normal 3.2-5.0 [facility] Comment on above: Order Comment: 1 Performed By: #### L 500.4050, L504.2610 #### [address] [place], [address] Albumin/Globulin [Mass ratio] 0.9 {ratio} Normal 0.9-2.4 Comment on above: Order Comment: 1 Performed By: #### L 500.4050, L504.2610 #### [address] [place], [address] ALK P 118 U/L High 45-117 Comment on above: Order Comment: 1 Performed By: #### L 500.4050, L504.2610 #### [address] [place], [address] ALT [Catalytic activity/Vol] 48 U/L Normal 13-56 Comment on above: Order Comment: 1 Performed By: #### L 500.4050, L504.2610 #### [address] [place], [address] AST [Catalytic activity/Vol] 50 U/L High 15-37 Comment on above: Order Comment: 1 Performed By: #### L 500.4050, L504.2610 #### [address] [place], [address] Bilirubin [Mass/Vol] 0.50 mg/dL Normal 0.20-1.00 [facility] Comment on above: Order Comment: 1 Result Comment: For patients on eltrombopag therapy, use of Dimension [place] TBIL is not recommended. Performed By: #### L 500.4050, L504.2610 #### [address] [place], [address] BUN/CRE 14.8 RATIO Normal 10-20 Comment on above: Order Comment: 1 Performed By: #### L 500.4050, L504.2610 #### [address] [place], [address] CA,Total 9.9 mg/dL Normal 8.5-10.1 Comment on above: Order Comment: 1 Performed By: #### L 500.4050, L504.2610 #### [address] [place], [address] Chloride [Moles/Vol] 102 mmol/L Normal 98-107 [facility] Comment on above: Order Comment: 1 Performed By: #### L 500.4050, L504.2610 #### [address] [place], [address] CO2 [Moles/Vol] 29.0 mmol/L Normal 21.0-32.0 Comment on above: Order Comment: 1 Performed By: #### L 500.4050, L504.2610 #### [address] [place], [address] Creatinine [Mass/Vol] 1.35 mg/dL High 0.55-1.[address] [facility] Comment on above: Order Comment: 1 Result Comment: The validity of the calculated GFR GFRAA in patients over70 years has not been determined. Clinical correlation isessential. Performed By: #### L 500.4050, L504.2610 #### [address] [place], [address] ECRCL 46.13 ml/min Normal Comment on above: Order Comment: 1 Performed By: #### L 500.4050, L504.2610 #### [address] [place], [address] EST GFR - AA 50 mL/min Low >60 Comment on above: Order Comment: 1 Result Comment: Afri can Canadian GFR Calc Performed By: #### L 500.4050, L504.2610 #### [address] [place], [address] GAP 8 Normal 5-15 Comment on above: Order Comment: 1 Performed By: #### L 500.4050, L504.2610 #### [address] [place], [address] GFR/1.73 sq M.predicted among non-blacks MDRD (S/P/Bld) [Vol rate/Area] 41 mL/min/{1.73_m2} Low >60 Comment on above: Order Comment: 1 Result Comment: Non- GFR Calc Performed By: #### L 500.4050, L504.2610 #### [address] [place], [address] Globulin (S) [Mass/Vol] 3.6 g/dL Normal 2.2-4.2 Comment on above: Order Comment: 1 Performed By: #### L 500.4050, L504.2610 #### [address] [place], [address] Glucose [Mass/Vol] 197 mg/dL High 74-106 [facility] Comment on above: Order Comment: 1 Result Comment: Fast ing Glucose result greater than or equal to 126 mg/dLsuggests DIABETES MELLITUS per A.D.A. criteria. Performed By: #### L 500.4050, L504.2610 #### [address] [place], [address] Potassium [Moles/Vol] 4.3 mmol/L Normal 3.5-5.[address] [facility] Comment on above: Order Comment: 1 Performed By: #### L 500.4050, L504.2610 #### [address] [place], [address] Sodium [Moles/Vol] 139 mmol/L Normal 136-145 [facility] Comment on above: Order Comment: 1 Performed By: #### L 500.4050, L504.2610 #### [address] [place], [address] T PROT 7.0 g/dL Normal 6.4-8.2 Comment on above: Order Comment: 1 Performed By: #### L 500.4050, L504.2610 #### [address] [place], [address] Urea nitrogen [Mass/Vol] 20 mg/dL High 7-18 Comment on above: Order Comment: 1 Performed By: #### L 500.4050, L504.2610 #### [address] [place], [address] LDHon 08-23-2024 LDH 185 U/L Normal 84-246 Comment on above: Order Comment: 1 Performed By: #### L 500.4050, L504.2610 #### [address] [place], [address] Oncology Visit Reporton 08-12 Oncology Visit Report Normal [facility] CA 15-3on 07-28-2024 CA 15-3 30.4 U/mL Abnormal 0.0-25.0 Comment on above: Result Comment: [employer] Electrochemiluminescence Immunoassay(ECLIA)Values obtained with different assay methods or kits cannotbe used interchangeably. Results cannot be interpreted asabsolute evidence of the presence or absence of malignantdisease.Performed at: [facility] [place], [place] [id number] Director: Reese Willingham PhD, Phone: [phone] Performed By: #### L 500.4050, L100.0100, L3100.5040, L3100.5030, L3100.2300 #### [address] [place], [place], [address] CA 27.29on 07-28-2024 CA 27.29 28.1 U/mL Normal 0.0-38.6 Comment on above: Result Comment: [employer] Immunochemiluminometric Methodology (ICMA)Values obtained with different assay methods or kits cannotbe used interchangeably. Results cannot be interpreted asabsolute evidence of the presence or absence of malignantdisease. Performed By: #### L 500.4050, L100.0100, L3100.5040, L3100.5030, L3100.2300 #### [address] [place], [place], [address] Carcinoembryonic Antigenon 09-27-2023 CEA 9.3 ng/mL High 0.0-4.7 Comment on above: Result Comment: Nons mokers <3.9 Smokers <5.6[employer] Electrochemiluminescence Immunoassay(ECLIA)Values obtained with different assay methods or kitscannot be used interchangeably. Results cannot beinterpreted as absolute evidence of the presence orabsence of malignant disease. Performed By: #### L 500.4050, L100.0100, L3100.5040, L3100.5030, L3100.2300 #### [address] [place], [place], [address] CBC W/Diff, Automatedon 07-13 Absolute Lymph 1.01 X10 3/uL Normal 0.83-4.51 Comment on above: Performed By: #### L 500.4050, L100.0100, L3100.5040, L3100.5030, L3100.2300 #### [address] [place], [address] Absolute Neut 1.7 X10 3/uL Low 2.0-7.7 Comment on above: Performed By: #### L 500.4050, L100.0100, L3100.5040, L3100.5030, L3100.2300 #### [address] [place], [address] Basophils/100 WBC (Bld) 1.2 % High 0-1 Comment on above: Performed By: #### L 500.4050, L100.0100, L3100.5040, L3100.5030, L3100.2300 #### [address] [place], [address] Eosinophils/100 WBC (Bld) 4.9 % Normal 0-5 Comment on above: Performed By: #### L 500.4050, L100.0100, L3100.5040, L3100.5030, L3100.2300 #### [address] [place], [address] Erythrocyte distribution width (RBC) [Ratio] 14.0 % Normal 11.6-14.6 Comment on above: Performed By: #### L 500.4050, L100.0100, L3100.5040, L3100.5030, L3100.2300 #### [address] [place], [address] Hematocrit (Bld) [Volume fraction] 36.4 % Low 37-47 Comment on above: Performed By: #### L 500.4050, L100.0100, L3100.5040, L3100.5030, L3100.2300 #### [address] [place], [address] Hemoglobin (Bld) [Mass/Vol] 12.8 g/dL Normal 12.0-15.0 Comment on above: Performed By: #### L 500.4050, L100.0100, L3100.5040, L3100.5030, L3100.2300 #### [address] [place], [address] IG% 0.300 Normal 0.0-0.9 Comment on above: Result Comment: IG% - Immature Granulocytes (promyelocytes, myelocytes andmetamyelocytes) > 1% indicates that a LEFT SHIFT is Present. Performed By: #### L 500.4050, L100.0100, L3100.5040, L3100.5030, L3100.2300 #### [address] [place], [address] Lymphocytes/100 WBC (Bld) 31.1 % Normal 19-41 Comment on above: Performed By: #### L 500.4050, L100.0100, L3100.5040, L3100.5030, L3100.2300 #### [address] [place], [address] MCH (RBC) [Entitic mass] 36.4 pg High 27.0-32.0 Comment on above: Performed By: #### L 500.4050, L100.0100, L3100.5040, L3100.5030, L3100.2300 #### [address] [place], [address] MCHC (RBC) [Mass/Vol] 35.2 g/dL Normal 32-[address] [facility] Comment on above: Performed By: #### L 500.4050, L100.0100, L3100.5040, L3100.5030, L3100.2300 #### [address] [place], [address] MCV (RBC) [Entitic vol] 103.4 fL High 81-99 Comment on above: Performed By: #### L 500.4050, L100.0100, L3100.5040, L3100.5030, L3100.2300 #### [address] [place], [address] Monocytes/100 WBC (Bld) 11.4 % High 0-10 Comment on above: Performed By: #### L 500.4050, L100.0100, L3100.5040, L3100.5030, L3100.2300 #### [address] [place], [address] Neutrophils/100 WBC (Bld) 51.1 % Normal 47-70 Comment on above: Performed By: #### L 500.4050, L100.0100, L3100.5040, L3100.5030, L3100.2300 #### [address] [place], [address] Nucleated RBC (Bld) [#/Vol] 0 10*3/uL Normal 0-5 Comment on above: Performed By: #### L 500.4050, L100.0100, L3100.5040, L3100.5030, L3100.2300 #### [address] [place], [address] Platelet mean volume (Bld) [Entitic vol] 9.7 fL Normal 6.2-12.0 Comment on above: Performed By: #### L 500.4050, L100.0100, L3100.5040, L3100.5030, L3100.2300 #### [address] [place], [address] Platelets (Bld) [#/Vol] 142 10*3/uL Low 150-450 Comment on above: Performed By: #### L 500.4050, L100.0100, L3100.5040, L3100.5030, L3100.2300 #### [address] [place], [address] RBC (Bld) [#/Vol] 3.52 10*6/uL Low 4.2-5.4 [facility] Comment on above: Performed By: #### L 500.4050, L100.0100, L3100.5040, L3100.5030, L3100.2300 #### [address] [place], [address] RDW SD 52.9 fl High 35.1-43.9 Comment on above: Performed By: #### L 500.4050, L100.0100, L3100.5040, L3100.5030, L3100.2300 #### [address] [place], [address] WBC (Bld) [#/Vol] 3.3 10*3/uL Low 4.4-11.0 [facility] Comment on above: Performed By: #### L 500.4050, L100.0100, L3100.5040, L3100.5030, L3100.2300 #### [address] [place], [address] Comprehensive Metabolic [facility] 07-26-2024 Albumin [Mass/Vol] 3.3 g/dL Normal 3.2-5.0 [facility] Comment on above: Performed By: #### L 500.4050, L100.0100, L3100.5040, L3100.5030, L3100.2300 #### [address] [place], [address] Albumin/Globulin [Mass ratio] 1.0 {ratio} Normal 0.9-2.4 Comment on above: Performed By: #### L 500.4050, L100.0100, L3100.5040, L3100.5030, L3100.2300 #### [address] [place], [address] ALK P 138 U/L High 45-117 Comment on above: Performed By: #### L 500.4050, L100.0100, L3100.5040, L3100.5030, L3100.2300 #### [address] [place], [address] ALT [Catalytic activity/Vol] 58 U/L High 13-56 Comment on above: Performed By: #### L 500.4050, L100.0100, L3100.5040, L3100.5030, L3100.2300 #### [address] [place], [address] AST [Catalytic activity/Vol] 78 U/L High 15-37 Comment on above: Performed By: #### L 500.4050, L100.0100, L3100.5040, L3100.5030, L3100.2300 #### [address] [place], [address] Bilirubin [Mass/Vol] 0.50 mg/dL Normal 0.20-1.00 [facility] Comment on above: Result Comment: For patients on eltrombopag therapy, use of Dimension [place] TBIL is not recommended. Performed By: #### L 500.4050, L100.0100, L3100.5040, L3100.5030, L3100.2300 #### [address] [place], [address] BUN/CRE 19.8 RATIO Normal 10-20 Comment on above: Performed By: #### L 500.4050, L100.0100, L3100.5040, L3100.5030, L3100.2300 #### [address] [place], [address] CA,Total 9.3 mg/dL Normal 8.5-10.1 Comment on above: Performed By: #### L 500.4050, L100.0100, L3100.5040, L3100.5030, L3100.2300 #### [address] [place], [address] Chloride [Moles/Vol] 104 mmol/L Normal 98-107 [facility] Comment on above: Performed By: #### L 500.4050, L100.0100, L3100.5040, L3100.5030, L3100.2300 #### [address] [place], [address] CO2 [Moles/Vol] 28.0 mmol/L Normal 21.0-32.0 Comment on above: Performed By: #### L 500.4050, L100.0100, L3100.5040, L3100.5030, L3100.2300 #### [address] [place], [address] Creatinine [Mass/Vol] 1.11 mg/dL High 0.55-1.[address] [facility] Comment on above: Result Comment: The validity of the calculated GFR GFRAA in patients over70 years has not been determined. Clinical correlation isessential. Performed By: #### L 500.4050, L100.0100, L3100.5040, L3100.5030, L3100.2300 #### [address] [place], [address] ECRCL 55.94 ml/min Normal Comment on above: Performed By: #### L 500.4050, L100.0100, L3100.5040, L3100.5030, L3100.2300 #### [address] [place], [address] EST GFR - AA 62 mL/min Normal >60 Comment on above: Result Comment: Afri can [place] GFR Calc Performed By: #### L 500.4050, L100.0100, L3100.5040, L3100.5030, L3100.2300 #### [address] [place], [address] GAP 6 Normal 5-15 Comment on above: Performed By: #### L 500.4050, L100.0100, L3100.5040, L3100.5030, L3100.2300 #### [address] [place], [address] GFR/1.73 sq M.predicted among non-blacks MDRD (S/P/Bld) [Vol rate/Area] 51 mL/min/{1.73_m2} Low >60 Comment on above: Result Comment: Non- GFR Calc Performed By: #### L 500.4050, L100.0100, L3100.5040, L3100.5030, L3100.2300 #### [address] [place], [address] Globulin (S) [Mass/Vol] 3.4 g/dL Normal 2.2-4.2 Comment on above: Performed By: #### L 500.4050, L100.0100, L3100.5040, L3100.5030, L3100.2300 #### [address] [place], [address] Glucose [Mass/Vol] 235 mg/dL High 74-106 [facility] Comment on above: Result Comment: Gluc ose result greater than or equal to 200 mg/dLsuggests DIABETES MELLITUS per A.D.A. criteria. Performed By: #### L 500.4050, L100.0100, L3100.5040, L3100.5030, L3100.2300 #### [address] [place], [address] Potassium [Moles/Vol] 3.7 mmol/L Normal 3.5-5.[address] [facility] Comment on above: Performed By: #### L 500.4050, L100.0100, L3100.5040, L3100.5030, L3100.2300 #### [id number] [place], [address] Sodium [Moles/Vol] 138 mmol/L Normal 136-145 [facility] Comment on above: Performed By: #### L 500.4050, L100.0100, L3100.5040, L3100.5030, L3100.2300 #### [id number] [place], [address] T PROT 6.7 g/dL Normal 6.4-8.2 Comment on above: Performed By: #### L 500.4050, L100.0100, L3100.5040, L3100.5030, L3100.2300 #### [id number] [place], [address] Urea nitrogen [Mass/Vol] 22 mg/dL High 7-18 Comment on above: Performed By: #### L 500.4050, L100.0100, L3100.5040, L3100.5030, L3100.2300 #### [id number] [place], [address] Oncology Visit Reporton 07-13 Oncology Visit Report Normal [facility] Cancer antigen 125 (CA-125) measurementOrdered By: Myron Calvlilo on 02-28-2024 CA 125 Antigen 27.2 U/mL 0.0-38.1 Comment on above: [employer] El ectrochemiluminescence Immunoassay(ECLIA)Values obtained with different assay methods or kits cannotbe used interchangeably. Results cannot be interpreted asabsolute evidence of the presence or absence of malignantdisease. Cancer antigen 125 (CA-125) measurement 27.2 U/mL 0.0-38.1 Comment on above: [facility] El ectrochemiluminescence Immunoassay(ECLIA)Values obtained with different assay methods or kits cannotbe used interchangeably. Results cannot be interpreted asabsolute evidence of the presence or absence of malignantdisease. Reactive lymphocyte countOrd ered By: Sultana Finn on 01-03-2024 Reactive Lymphocytes 1+ [facility] Basophil percentageOrdered B y: Adolfo Aguirre on 12-08-2023 Cholesterol [Mass/Vol] 138 mg/dL <200 [facility] Comment on above: <200 mg/dL Desirable 200-240 mg/dL Borderline >240 mg/dL High Risk Triglyceride [Mass/Vol] 156 mg/dL <199 Comment on above: The drugs N-Acetylcy steine and Metamizole may falsely depress this assay.Serum Triglycerides Reference Interval Normal <150 mg/dL Borderline high 150 - 199 mg/dL High 200 - 499 mg/dL Very High > or = 500 mg/dL Laboratory - Chemistry and C hemistry - challengeOrdered By: Adolfo Aguirre on 12-08-2023 Cholesterol in HDL [Mass/Vol] 51 mg/dL >40 Comment on above: The drugs N-Acetylcy steine and Metamizole may falsely depress this assay. Reference Range HDL <40 mg/dL Low HDL Cholesterol HDL >or= 60 mg/dL High HDL Cholesterol Cholesterol in LDL [Mass/Vol] 56 mg/dL 0-130 No Panel InformationOrdered By: Adolfo Aguirre on 12-08-2023 Vitamin D 25-Hydroxy 114.8 ng/mL [facility] Comment on above: Vitamin D 25(OH) [...] test results. VLDL Cholesterol 31 mg/dL 5-40 Serum or plasma thyroid stim ulating hormone (TSH) measurement (units/volume)Ordered By: Adolfo Aguirre on 12-08-2023 TSH Qn 1.02 uIU/mL 0.358-3.74 Absolute lymphocyte countOrd ered By: Myron Calvillo on 11-29-2023 Lymphocytes Auto (Unsp spec) [#/Vol] 0.74 10*3/uL 0.83-4.51 Automated lymphocyte count a s percentage of total leukocytesOrdered By: Myron Calvillo on 11-29-2023 Lymphocytes/100 WBC Auto (Unsp spec) 28.5 % 19-41 Basophil percentageOrdered B y: Myron Calvillo on 11-29-2023 Basophil percentage 3.8 mg/dL 2.5-4.9 [facility] Basophils/100 WBC (Bld) 1.9 % 0-1 Bilirubin [Mass/Vol] 0.60 mg/dL 0.20-1.00 [facility] Comment on above: For patients on eltr ombopag therapy, use of Dimension [place] TBIL is not recommended. Chloride [Moles/Vol] 102 mmol/L 98-107 [facility] Eosinophils/100 WBC (Bld) 1.9 % 0-5 Glucose [Mass/Vol] 160 mg/dL 74-106 [facility] Comment on above: Fasting Glucose resu lt greater than or equal to 126 mg/dL suggests DIABETES MELLITUS per A.D.A. criteria. Hemoglobin (Bld) [Mass/Vol] 12.6 g/dL 12.0-15.0 LDH [Catalytic activity/Vol] 196 U/L 84-246 Monocytes/100 WBC (Bld) 16.9 % 0-10 Neutrophils (Bld) [#/Vol] 1.3 10*3/uL 2.0-7.7 Neutrophils/100 WBC (Bld) 50.4 % 47-70 Potassium [Moles/Vol] 3.9 mmol/L 3.5-5.[address] [facility] Protein [Mass/Vol] 6.8 g/dL 6.4-8.2 [facility] Sodium [Moles/Vol] 138 mmol/L 136-145 [facility] WBC (Bld) [#/Vol] 2.6 10*3/uL 4.4-11.0 [facility] Determination of erythrocyte mean corpuscular volume (MCV)Ordered By: Myron Calvillo on 11-29-2023 MCV (RBC) [Entitic vol] 102.7 fL 81-99 Erythrocyte distribution wid th ratioOrdered By: Myron Calvillo on 11-29-2023 Erythrocyte distribution width (RBC) [Ratio] 14.0 % 11.6-14.6 Erythrocyte distribution wid th standard deviationOrdered By: Myron Calvillo on 11-29-2023 Erythrocyte distribution width (RBC) [Entitic vol] 52.4 fL 35.1-43.9 Hematocrit Auto (Bld) [Volum e fraction]Ordered By: Myron Calvillo on 11-29-2023 Hematocrit (Bld) [Volume fraction] 37.6 % 37-47 Immature granulocytes/100 WB C Auto (Bld)Ordered By: Myron Calvillo on 11-29-2023 Immature granulocytes/100 WBC (Bld) 0.400 % 0.0-0.9 Comment on above: IG% - Immature Granu locytes (promyelocytes, myelocytes and metamyelocytes) > 1% indicates that a LEFT SHIFT is Present. Laboratory - Chemistry and C hemistry - challengeOrdered By: Myron Calvillo on 11-29-2023 Albumin/Globulin [Mass ratio] 1.0 {ratio} 0.9-2.4 ALP [Catalytic activity/Vol] 108 U/L 45-117 ALT [Catalytic activity/Vol] 56 U/L 13-56 CO2 [Moles/Vol] 28.0 mmol/L 21.0-32.0 Globulin (S) [Mass/Vol] 3.4 g/dL 2.2-4.2 Urea nitrogen/Creatinine [Mass ratio] 13.9 mg/mg 10-20 Laboratory - Hematology and Cell countsOrdered By: Myron Calvillo on 11-29-2023 MCH (RBC) [Entitic mass] 34.4 pg 27.0-32.0 MCHC (RBC) [Mass/Vol] 33.5 g/dL 32-[address] [facility] Nucleated RBC/100 WBC (Bld) [Ratio] 0 % 0-5 Platelet mean volume (Bld) [Entitic vol] 9.9 fL 6.2-12.0 Platelets (Bld) [#/Vol] 155 10*3/uL 150-450 Magnesium measurementOrdered By: Myron Calvillo on 11-29-2023 Magnesium [Mass/Vol] 1.5 mg/dL Low 1.6-2.6 [facility] No Panel InformationOrdered By: Myron Calvillo on 11-29-2023 Estimated Creatinine Clearance Calc 58.61 ml/min Estimated GFR (MDRD) Amer 64 mL/min >60 Comment on above: GFR Calc Estimated GFR (MDRD) Non-Af Amer 53 mL/min >60 Comment on above: Non- GFR Calc Phosphorus measurementOrdere d By: Myron Calvillo on 11-29-2023 Phosphorus Level 3.8 mg/dL 2.5-4.9 RBC Auto (Bld) [#/Vol]Ordere d By: Myron Calvillo on 11-29-2023 RBC (Bld) [#/Vol] 3.66 10*6/uL 4.2-5.4 [facility] Serum or plasma calcium amanda urement (mass/volume)Ordered By: Myron Calvillo on 11-29-2023 Calcium [Mass/Vol] 9.7 mg/dL 8.5-10.1 [facility] Serum or plasma creatinine m easurement (mass/volume)Ordered By: Myron Calvillo on 11-29-2023 Creatinine [Mass/Vol] 1.08 mg/dL 0.55-1.[address] [facility] Comment on above: The validity of the calculated GFR & GFRAA in patients over 70 years has not been determined. Clinical correlation is essential. Serum or plasma urea nitroge n measurement (mass/volume)Ordered By: Myron Calvillo on 11-29-2023 Urea nitrogen [Mass/Vol] 15 mg/dL 7-18 Thin prep Papanicolaou smear with manual screeningOrdered By: Myron Calvillo on 11-29-2023 Thin prep Papanicolaou smear with manual screening 3.4 g/dL 3.2-5.0 Thin prep Papanicolaou smear with manual screening 76 U/L 15-37 Thin prep Papanicolaou smear with manual screening 8 5-15 Pathologist review Marcial (Unsp spec) [Interp]Ordered By: Myron Calvillo on 11-22-2023 Differential Pathologist's Review Reviewed Comment on above: Previous reported re sult: Anastasia schwab Edited by: RGOOD on 11/25/23:1256Pancytopenia.Leukopenia and Neutropenia.Macrocytic anemia.Mild ThrombocytopeniaClinical correlation necessary.Iam Mcclure M.D. 11/25/23 AMENDED REPORT 11/25/23 1256 PATH REV previously reported as: Anastasia schwab Review by pathologistOrdered By: Myron Calvillo on 11-22-2023 Pathologist review Marcial (Unsp spec) [Interp] Reviewed Comment on above: Previous reported re sult: Anastasia schwab Edited by: JAYSON on 11/25/23:1256Pancytopenia.Leukopenia and Neutropenia.Macrocytic anemia.Mild ThrombocytopeniaClinical correlation necessary.Iam Mcclure M.D. 11/25/23 AMENDED REPORT 11/25/23 1256 PATH REV previously reported as: Anastasia schwab Basophil percentageOrdered B y: Myron Calvillo on 10-25-2023 Basophil percentage 5-10 SEEN /hpf 0-5 [facility] Bilirubin Test strip Ql (U)O rdered By: Myron Calvillo on 10-25-2023 Bilirubin Ql (U) Negative Negative Culture, urineOrdered By: Destinee Calvillo on 10-25-2023 Bacteria identified Cx Nom (U) Klebsiella pneumoniae sp pneum Abnormal Epithelial cells.squamous LM Ql (Urine sed)Ordered By: Myron Calvillo on 10-25-2023 Epithelial cells.squamous LM.HPF (Urine sed) [#/Area] 0 /[HPF] 5-10 Glucose Ql (U)Ordered By: Destinee Calvillo on 10-25-2023 Glucose (U) [Mass/Vol] 1000 mg/dL High Normal [facility] Ketones Test strip Ql (U)Ord ered By: Myron Calvillo on 10-25-2023 Ketones Ql (U) Negative Negative Mucus LM Ql (Urine sed)Order ed By: Myron Calvillo on 10-25-2023 Mucus Ql (Urine sed) 0 SEEN /hpf [facility] Nitrite Test strip Ql (U)Ord ered By: Myron Calvillo on 10-25-2023 Nitrite Ql (U) Negative Negative No Panel InformationOrdered By: Myron Calvillo on 10-25-2023 Urine RBC 0 SEEN /hpf 0-5 Protein Test strip Ql (U)Ord ered By: Myron Calvillo on 10-25-2023 Protein Ql (U) Negative Negative RBC Ql (U)Ordered By: Myron Calvillo on 10-25-2023 Urine Occult Blood 10 /ul High Negative [facility] Squamous epithelial cells de tection in urine sediment by light microscopyOrdered By: Myron Calvillo on 10-25-2023 Epithelial cells.squamous LM Ql (Urine sed) 0-5 SEEN /hpf 5-10 Trichomonas screening testOr dered By: Myron Calvillo on 10-25-2023 Urine WBC 5-10 SEEN /hpf 0-5 Urine blood detectionOrdered By: Myron Calvillo on 10-25-2023 RBC Ql (U) 10 /ul High Negative Urine clarityOrdered By: Kavon Calvillo on 10-25-2023 Clarity (U) Clear Clear Urine color determinationOrd ered By: Myron Calvillo on 10-25-2023 Color (U) Yellow Yellow Urine glucose detectionOrder ed By: Myron Calvillo on 10-25-2023 Glucose Ql (U) 1000 mg/dl High Normal Urine leukocyte esterase det ection by dipstickOrdered By: Myron Calvillo on 10-25-2023 Leukocyte esterase Test strip Ql (U) 100 /ul High Negative Urine pHOrdered By: Myron arias on 10-25-2023 pH (U) 6.0 [pH] 5.0 - 8.0 Urine sediment bacteria coun t by microscopy (number/high power field)Ordered By: Myron Calvillo on 10-25-2023 Bacteria LM.HPF (Urine sed) [#/Area] 2 /[HPF] None Seen Urine specific gravity measu rementOrdered By: Myron Calvillo on 10-25-2023 Specific gravity (U) [Rel density] 1.015 1.002-1.030 Urine urobilinogen measureme ntOrdered By: Myron Calvillo on 10-25-2023 Urobilinogen Ql (U) Normal mg/dl Normal [facility] Urobilinogen Ql (U)Ordered B y: Myron Calvillo on 10-25-2023 Urine Urobilinogen Normal mg/dl Normal [facility] No Panel InformationOrdered By: Myron Calvillo on 09-27-2023 CA 15-3 Antigen 27.8 U/mL 0.0-25.0 Comment on above: [employer] El ectrochemiluminescence Immunoassay(ECLIA)Values obtained with different assay methods or kits cannotbe used interchangeably. Results cannot be interpreted asabsolute evidence of the presence or absence of malignantdisease.Performed at: [address] [id number] Director: Reese Willingham PhD, Phone: [phone] CA 27.29 22.7 U/mL 0.0-38.6 Comment on above: [employer] Immu nochemiluminometric Methodology (ICMA)Values obtained with different assay methods or kits cannotbe used interchangeably. Results cannot be interpreted asabsolute evidence of the presence or absence of malignantdisease. Absolute lymphocyte countOrd ered By: Sultana Finn on 07-05-2023 Lymphocytes Auto (Unsp spec) [#/Vol] 1.04 10*3/uL 0.83-4.51 Basophil percentageOrdered B y: Sultana Finn on 07-05-2023 Basophils/100 WBC (Bld) 1.9 % 0-1 Eosinophils/100 WBC (Bld) 4.1 % 0-5 Neutrophils (Bld) [#/Vol] 1.1 10*3/uL 2.0-7.7 Neutrophils/100 WBC (Bld) 40.4 % 47-70 WBC (Bld) [#/Vol] 2.7 10*3/uL 4.4-11.0 [facility] Blood erythrocytes count (nu mber/volume)Ordered By: Sultana Finn on 07-05-2023 RBC (Bld) [#/Vol] 3.48 10*6/uL 4.2-5.4 [facility] Blood hemoglobin measurement (mass/volume)Ordered By: Sultana Finn on 07-05-2023 Hemoglobin (Bld) [Mass/Vol] 11.8 g/dL 12.0-15.0 Blood lymphocytes/100 leukoc ytesOrdered By: Sultana Finn on 07-05-2023 Lymphocytes/100 WBC (Bld) 39.0 % 19-41 Blood monocytes/100 leukocyt esOrdered By: Sultana Finn on 07-05-2023 Monocytes/100 WBC (Bld) 13.9 % 0-10 Blood platelet mean volumeOr dered By: Sultana Finn on 07-05-2023 Platelet mean volume (Bld) [Entitic vol] 9.6 fL 6.2-12.0 Determination of erythrocyte mean corpuscular volume (MCV)Ordered By: Sultana Finn on 07-05-2023 MCV (RBC) [Entitic vol] 102.0 fL 81-99 Hematocrit Auto (Bld) [Volum e fraction]Ordered By: Sultana Finn on 07-05-2023 Hematocrit (Bld) [Volume fraction] 35.5 % 37-47 Laboratory - Hematology and Cell countsOrdered By: Sultana Finn on 07-05-2023 Erythrocyte distribution width (RBC) [Entitic vol] 53.2 fL 35.1-43.9 Erythrocyte distribution width (RBC) [Ratio] 14.3 % 11.6-14.6 Immature granulocytes/100 WBC (Bld) 0.700 % 0.0-0.9 Comment on above: IG% - Immature Granu locytes (promyelocytes, myelocytes and metamyelocytes) > 1% indicates that a LEFT SHIFT is Present. MCH (RBC) [Entitic mass] 33.9 pg 27.0-32.0 Nucleated RBC/100 WBC (Bld) [Ratio] 0.7 % 0-5 MCHC Auto (RBC) [Mass/Vol]Or dered By: Sultana Finn on 07-05-2023 MCHC (RBC) [Mass/Vol] 33.2 g/dL 32-[address] [facility] Platelets bldOrdered By: Chaka Finn on 07-05-2023 Platelets (Bld) [#/Vol] 148 10*3/uL 150-450 Basophil percentageOrdered B y: Myron Calvillo on 06-28-2023 Bilirubin [Mass/Vol] 0.30 mg/dL 0.20-1.00 [facility] Comment on above: For patients on eltr ombopag therapy, use of Dimension [place] TBIL is not recommended. Chloride [Moles/Vol] 105 mmol/L 98-107 [facility] Glucose [Mass/Vol] 210 mg/dL 74-106 [facility] Comment on above: Glucose result great er than or equal to 200 mg/dLsuggests DIABETES MELLITUS per A.D.A. criteria. LDH [Catalytic activity/Vol] 156 U/L 84-246 Potassium [Moles/Vol] 4.1 mmol/L 3.5-5.[address] [facility] Protein [Mass/Vol] 6.5 g/dL 6.4-8.2 [facility] Sodium [Moles/Vol] 139 mmol/L 136-145 [facility] Blood manual differential co mment interpretation (narrative result)Ordered By: Myron Calvillo on 06-28-2023 Manual differential comment Marcial (Bld) [Interp] SCANNED Laboratory - Chemistry and C hemistry - challengeOrdered By: Myron Calvillo on 06-28-2023 ALP [Catalytic activity/Vol] 104 U/L 45-117 ALT [Catalytic activity/Vol] 43 U/L 13-56 CO2 [Moles/Vol] 28.0 mmol/L 21.0-32.0 Globulin (S) [Mass/Vol] 3.2 g/dL 2.2-4.2 Urea nitrogen/Creatinine [Mass ratio] 15.7 mg/mg 10-20 No Panel InformationOrdered By: Myron Calvillo on 06-28-2023 Estimated Creatinine Clearance Calc 45.37 ml/min Estimated GFR (MDRD) Amer 64 mL/min >60 Comment on above: GFR Calc Estimated GFR (MDRD) Non-Af Amer 53 mL/min >60 Comment on above: Non- GFR Calc Serum or plasma albumin amanda urement (mass/volume)Ordered By: Myron Calvillo on 06-28-2023 Albumin [Mass/Vol] 3.3 g/dL 3.2-5.0 [facility] Serum or plasma albumin/glob ulin mass ratioOrdered By: Myron Calvillo on 06-28-2023 Albumin/Globulin [Mass ratio] 1.0 {ratio} 0.9-2.4 Serum or plasma calcium amanda urement (mass/volume)Ordered By: Myron Calvillo on 06-28-2023 Calcium [Mass/Vol] 8.9 mg/dL 8.5-10.1 [facility] Serum or plasma creatinine m easurement (mass/volume)Ordered By: Myron Calvillo on 06-28-2023 Creatinine [Mass/Vol] 1.08 mg/dL 0.55-1.[address] [facility] Comment on above: The validity of the calculated GFR & GFRAA in patients over 70 years has not been determined. Clinical correlation is essential. Serum or plasma urea nitroge n measurement (mass/volume)Ordered By: Myron Calvillo on 06-28-2023 Urea nitrogen [Mass/Vol] 17 mg/dL -18 Thin prep Papanicolaou smear with manual screeningOrdered By: Myron Calvillo on 06-28-2023 Thin prep Papanicolaou smear with manual screening 41 U/L 15-37 Thin prep Papanicolaou smear with manual screening 6 5-15 Absolute lymphocyte countOrd ered By: Sultana Finn on 05-31-2023 Lymphocytes Auto (Unsp spec) [#/Vol] 0.74 10*3/uL 0.83-4.51 Basophil percentageOrdered B y: Sultana Finn on 05-31-2023 Basophils/100 WBC (Bld) 0.9 % 0-1 Bilirubin [Mass/Vol] 0.40 mg/dL 0.20-1.00 [facility] Comment on above: For patients on eltr ombopag therapy, use of Dimension [place] TBIL is not recommended. Chloride [Moles/Vol] 106 mmol/L 98-107 [facility] Eosinophils/100 WBC (Bld) 3.7 % 0-5 Glucose [Mass/Vol] 201 mg/dL 74-106 [facility] Comment on above: Glucose result great er than or equal to 200 mg/dLsuggests DIABETES MELLITUS per A.D.A. criteria. Neutrophils (Bld) [#/Vol] 1.1 10*3/uL 2.0-7.7 Neutrophils/100 WBC (Bld) 51.0 % 47-70 Potassium [Moles/Vol] 3.8 mmol/L 3.5-5.[address] [facility] Protein [Mass/Vol] 6.5 g/dL 6.4-8.2 [facility] Sodium [Moles/Vol] 140 mmol/L 136-145 [facility] WBC (Bld) [#/Vol] 2.1 10*3/uL 4.4-11.0 [facility] Blood erythrocytes count (nu mber/volume)Ordered By: Sultana Finn on 05-31-2023 RBC (Bld) [#/Vol] 3.36 10*6/uL 4.2-5.4 [facility] Blood hemoglobin measurement (mass/volume)Ordered By: Sultana Finn on 05-31-2023 Hemoglobin (Bld) [Mass/Vol] 11.9 g/dL 12.0-15.0 Blood lymphocytes/100 leukoc ytesOrdered By: Sultana Aakash on 05-31-2023 Lymphocytes/100 WBC (Bld) 34.6 % 19-41 Blood monocytes/100 leukocyt esOrdered By: [facility] Monocytes/100 WBC (Bld) 9.8 % 0-10 Blood platelet mean volumeOr dered By: [facility] Aakash on 05-31-2023 Platelet mean volume (Bld) [Entitic vol] 9.7 fL 6.2-12.0 Determination of erythrocyte mean corpuscular volume (MCV)Ordered By: Sultana Finn on 05-31-2023 MCV (RBC) [Entitic vol] 103.0 fL 81-99 Hematocrit Auto (Bld) [Volum e fraction]Ordered By: [facility] on 05-[facility]-2023 Hematocrit (Bld) [Volume fraction] 34.6 % 37-47 Laboratory - Chemistry and C hemistry - challengeOrdered By: [facility] on 05-31-2023 ALP [Catalytic activity/Vol] 87 U/L 45-117 ALT [Catalytic activity/Vol] 37 U/L 13-56 CO2 [Moles/Vol] 28.0 mmol/L 21.0-32.0 Globulin (S) [Mass/Vol] 3.2 g/dL 2.2-4.2 Urea nitrogen/Creatinine [Mass ratio] 10.0 mg/mg 10-20 Laboratory - Hematology and Cell countsOrdered By: [facility]23 Erythrocyte distribution width (RBC) [Entitic vol] 52.8 fL 35.1-43.9 Erythrocyte distribution width (RBC) [Ratio] 13.9 % 11.6-14.6 Immature granulocytes/100 WBC (Bld) 0.000 % 0.0-0.9 Comment on above: IG% - Immature Granu locytes (promyelocytes, myelocytes and metamyelocytes) > 1% indicates that a LEFT SHIFT is Present. MCH (RBC) [Entitic mass] 35.4 pg 27.0-32.0 Nucleated RBC/100 WBC (Bld) [Ratio] 0 % 0-5 MCHC Auto (RBC) [Mass/Vol]Or dered By: Sultana Finn on 05-31-2023 MCHC (RBC) [Mass/Vol] 34.4 g/dL 32-[address] [facility] No Panel InformationOrdered By: Sultana Finn on 05-31-2023 CA 15-3 Antigen 26.7 U/mL 0.0-25.0 Comment on above: [employer] El ectrochemiluminescence Immunoassay(ECLIA)Values obtained with different assay methods or kits cannotbe used interchangeably. Results cannot be interpreted asabsolute evidence of the presence or absence of malignantdisease.Performed at: [employer] [place] [id number] Director: Reese Willingham PhD, Phone: [phone] CA 27.29 19.5 U/mL 0.0-38.6 Comment on above: [employer] Immu nochemiluminometric Methodology (ICMA)Values obtained with different assay methods or kits cannotbe used interchangeably. Results cannot be interpreted asabsolute evidence of the presence or absence of malignantdisease. Estimated Creatinine Clearance Calc 37.70 ml/min Estimated GFR (MDRD) Amer 52 mL/min >60 Comment on above: GFR Calc Estimated GFR (MDRD) Non-Af Amer 43 mL/min >60 Comment on above: Non- GFR Calc Platelets bldOrdered By: Chaka Finn on 05-31-2023 Platelets (Bld) [#/Vol] 162 10*3/uL 150-450 Serum or plasma albumin amanda urement (mass/volume)Ordered By: Sultana Finn on 05-31-2023 Albumin [Mass/Vol] 3.3 g/dL 3.2-5.0 [facility] Serum or plasma albumin/glob ulin mass ratioOrdered By: [facility] on 05-31-2023 Albumin/Globulin [Mass ratio] 1.0 {ratio} 0.9-2.4 Serum or plasma calcium amanda urement (mass/volume)Ordered By: Sultana Aakash on 05-31-2023 Calcium [Mass/Vol] 8.6 mg/dL 8.5-10.1 [facility] Serum or plasma creatinine m easurement (mass/volume)Ordered By: Sultana Aakash on 05-31-2023 Creatinine [Mass/Vol] 1.30 mg/dL 0.55-1.[address] [facility] Comment on above: The validity of the calculated GFR & GFRAA in patients over 70 years has not been determined. Clinical correlation is essential. Serum or plasma urea nitroge n measurement (mass/volume)Ordered By: [facility] on 05-31-2023 Urea nitrogen [Mass/Vol] 13 mg/dL 7-18 Thin prep Papanicolaou smear with manual screeningOrdered By: [facility] on 05-31-2023 Thin prep Papanicolaou smear with manual screening 37 U/L 15-37 Thin prep Papanicolaou smear with manual screening 6 5-15 Basophil percentageOrdered B y: Myron Karli on 05-03-2023 LDH [Catalytic activity/Vol] 159 U/L 84-246 No Panel InformationOrdered By: Myron Kil[facility]oreamerica on 05-03-2023 CA 125 Antigen 17.9 U/mL 0.0-38.1 Comment on above: [employer] El ectrochemiluminescence Immunoassay(ECLIA)Values obtained with different assay methods or kits cannotbe used interchangeably. Results cannot be interpreted asabsolute evidence of the presence or absence of malignantdisease. CA 15-3 Antigen 23.0 U/mL 0.0-25.0 Comment on above: [employer] El ectrochemiluminescence Immunoassay(ECLIA)Values obtained with different assay methods or kits cannotbe used interchangeably. Results cannot be interpreted asabsolute evidence of the presence or absence of malignantdisease.Performed at: [facility] [email or web address] [id number] Director: Reese Willingham PhD, Phone: [phone] CA 27.29 20.6 U/mL 0.0-38.6 Comment on above: [employer]aur Immu nochemiluminometric Methodology (ICMA)Values obtained with different assay methods or kits cannotbe used interchangeably. Results cannot be interpreted asabsolute evidence of the presence or absence of malignantdisease. Serum or plasma carcinoembry onic antigen measurement (mass/volume)Ordered By: Myron Calvillo on 05-03-2023 Carcinoembryonic Ag [Mass/Vol] 4.1 ng/mL 0.0-4.7 Comment on above: Nonsmokers <3.9 Smok ers <5.6[employer] Electrochemiluminescence Immunoassay(ECLIA)Values obtained with different assay methods or kitscannot be used interchangeably. Results cannot beinterpreted as absolute evidence of the presence orabsence of malignant disease. Blood manual differential co mment interpretation (narrative result)Ordered By: Myron Calvillo on 03-08-2023 Manual differential comment Marcial (Bld) [Interp] SCANNED Review by pathologistOrdered By: Myron Calvillo on 03-08-2023 Pathologist review Marcial (Unsp spec) [Interp] Reviewed Comment on above: Previous reported re sult: Anastasia schwab Edited by: RGOOD on 03/10/23:825Leukopenia, neutropenia and macrocytic anemia. Clinical correlation necessary.Iam Mcclure M.D. 03/10/23 AMENDED REPORT 03/10/23 0826 PATH REV previously reported as: Anastasia schwab Lower GI hemoglobin IA Ql (S tl)Ordered By: Myron Calvillo on 01-12-2023 Stool Occult Blood (MARIAM) Stool gastrointestinal hemog lobin detection by immunologic methodOrdered By: Myron Calvillo on 01-12-2023 Lower GI hemoglobin IA Ql (Stl) Basophil percentageOrdered B y: yMron Calvillo on 01-11-2023 Basophil percentage 4.0 mg/dL 2.5-4.9 [facility] No Panel InformationOrdered By: Myron Calvillo on 01-11-2023 Vitamin D 25-Hydroxy 97.2 ng/mL [facility] Comment on above: Vitamin D 25(OH) Sta tus Range Deficiency <20 ng/mL (50nmol/L) Insufficiency 20 - 30 ng/mL (50 - 75 nmol/L) Sufficiency 30 - 100 ng/mL (75 - 250 nmol/L) Toxicity >100 ng/mL (>250 nmol/L) No Panel InformationOrdered By: Chelsea Anguiano on 01-11-2023 Thyroid Stimulating Hormone (TSH) 0.95 uIU/mL 0.358-3.74 Folate [Mass/Vol]Ordered By: Ngozi Padron on 01-04-2023 Folate 33.10 ng/mL 3.1-55.4 Iron (Unsp spec) [Mass/Mass] Ordered By: Ngozi Padron on 01-04-2023 Iron [Mass/Vol] 89 ug/dL 50-170 Iron measurement (mass/mass) Ordered By: Ngozi Padron on 01-04-2023 Iron (Unsp spec) [Mass/Mass] 89 ug/dL 50-170 Iron saturation [Mass fracti on]Ordered By: Ngozi Padron on 01-04-2023 Iron Saturation 27.9 % 15.0-55.0 Laboratory - Chemistry and C hemistry - challengeOrdered By: Ngozi Padron on 01-04-2023 Cobalamin (Vitamin B12) [Mass/Vol] 379 pg/mL 211-911 No Panel InformationOrdered By: Ngozi Padron on 01-04-2023 Total Iron Binding Capacity 319 ug/dL 250-450 Serum or plasma ferritin augie surement (mass/volume)Ordered By: Ngozi Padron on 01-04-2023 Ferritin [Mass/Vol] 138 ng/mL 8-252 [facility] Serum or plasma folate measu rement (mass/volume)Ordered By: Ngozi Padron on 01-04-2023 Folate [Mass/Vol] 33.10 ng/mL 3.1-55.4 [facility] Serum or plasma iron saturat ion measurement (mass fraction)Ordered By: Ngozi Padron on 01-04-2023 Iron saturation [Mass fraction] 27.9 % 15.0-55.0 No Panel InformationOrdered By: Myron Calvillo on 12-07-2022 Miscellaneous Test Comment MAILED SPECIMEN Absolute lymphocyte countOrd ered By: Dr. Calvillo on 11-30-2022 Lymphocytes Auto (Unsp spec) [#/Vol] 0.68 10*3/uL 0.83-4.51 Basophil percentageOrdered B y: Dr. Calvillo on 11-30-2022 Basophil percentage 4.8 mg/dL 2.5-4.9 [facility] Basophils/100 WBC (Bld) 2.1 % 0-1 Bilirubin [Mass/Vol] 0.40 mg/dL 0.20-1.00 [facility] Comment on above: For patients on eltr ombopag therapy, use of Dimension [place] TBIL is not recommended. Chloride [Moles/Vol] 103 mmol/L 98-107 [facility] Eosinophils/100 WBC (Bld) 3.1 % 0-5 Glucose [Mass/Vol] 258 mg/dL 74-106 [facility] Comment on above: Glucose result great er than or equal to 200 mg/dLsuggests DIABETES MELLITUS per A.D.A. criteria. LDH [Catalytic activity/Vol] 170 U/L 84-246 Neutrophils (Bld) [#/Vol] 0.9 10*3/uL 2.0-7.7 Neutrophils/100 WBC (Bld) 46.8 % 47-70 Potassium [Moles/Vol] 4.0 mmol/L 3.5-5.[address] [facility] Protein [Mass/Vol] 6.6 g/dL 6.4-8.2 [facility] Sodium [Moles/Vol] 140 mmol/L 136-145 [facility] WBC (Bld) [#/Vol] 1.9 10*3/uL 4.4-11.0 [facility] Blood erythrocytes count (nu mber/volume)Ordered By: Dr. Calvillo on 11-30-2022 RBC (Bld) [#/Vol] 3.50 10*6/uL 4.2-5.4 [facility] Blood hemoglobin measurement (mass/volume)Ordered By: Dr. Calvillo on 11-30-2022 Hemoglobin (Bld) [Mass/Vol] 12.4 g/dL 12.0-15.0 Blood lymphocytes/100 leukoc ytesOrdered By: Dr. Calvillo on 11-30-2022 Lymphocytes/100 WBC (Bld) 35.1 % 19-41 Blood manual differential co mment interpretation (narrative result)Ordered By: Dr. Calvillo on 11-30-2022 Manual differential comment Marcial (Bld) [Interp] SCANNED Blood monocytes/100 leukocyt esOrdered By: Dr. Calvillo on 11-30-2022 Monocytes/100 WBC (Bld) 12.4 % 0-10 Blood platelet mean volumeOr dered By: Dr. Calvillo on 11-30-2022 Platelet mean volume (Bld) [Entitic vol] 9.6 fL 6.2-12.0 Determination of erythrocyte mean corpuscular volume (MCV)Ordered By: Dr. Calvillo on 11-30-2022 MCV (RBC) [Entitic vol] 102.9 fL 81-99 Hematocrit Auto (Bld) [Volum e fraction]Ordered By: Dr. Calvillo on 11-30-2022 Hematocrit (Bld) [Volume fraction] 36.0 % 37-47 Laboratory - Chemistry and C hemistry - challengeOrdered By: Dr. Calvillo on 11-30-2022 ALP [Catalytic activity/Vol] 92 U/L 45-117 ALT [Catalytic activity/Vol] 53 U/L 13-56 CO2 [Moles/Vol] 29.0 mmol/L 21.0-32.0 Globulin (S) [Mass/Vol] 3.3 g/dL 2.2-4.2 Urea nitrogen/Creatinine [Mass ratio] 15.6 mg/mg 10-20 Laboratory - Hematology and Cell countsOrdered By: Dr. Calvillo on 11-30-2022 Erythrocyte distribution width (RBC) [Entitic vol] 53.5 fL 35.1-43.9 Erythrocyte distribution width (RBC) [Ratio] 14.4 % 11.6-14.6 Immature granulocytes/100 WBC (Bld) 0.500 % 0.0-0.9 Comment on above: IG% - Immature Granu locytes (promyelocytes, myelocytes and metamyelocytes) > 1% indicates that a LEFT SHIFT is Present. MCH (RBC) [Entitic mass] 35.4 pg 27.0-32.0 Nucleated RBC/100 WBC (Bld) [Ratio] 0 % 0-5 MCHC Auto (RBC) [Mass/Vol]Or dered By: Dr. Calvillo on 11-30-2022 MCHC (RBC) [Mass/Vol] 34.4 g/dL 32-[address] [facility] No Panel InformationOrdered By: Dr. Calvillo on 11-30-2022 Estimated Creatinine Clearance Calc 45.60 ml/min Estimated GFR (MDRD) Amer 64 mL/min >60 Comment on above: GFR Calc Estimated GFR (MDRD) Non-Af Amer 53 mL/min >60 Comment on above: Non- GFR Calc Miscellaneous Test Comment MAILED SPECIMEN Vitamin D 25-Hydroxy 69.3 ng/mL [facility] Comment on above: Vitamin D 25(OH) Sta tus Range Deficiency <20 ng/mL (50nmol/L) Insufficiency 20 - 30 ng/mL (50 - 75 nmol/L) Sufficiency 30 - 100 ng/mL (75 - 250 nmol/L) Toxicity >100 ng/mL (>250 nmol/L) Platelets bldOrdered By: Dr. Calvillo on 11-30-2022 Platelets (Bld) [#/Vol] 164 10*3/uL 150-450 Serum or plasma albumin amanda urement (mass/volume)Ordered By: Dr. Calvillo on 11-30-2022 Albumin [Mass/Vol] 3.3 g/dL 3.2-5.0 [facility] Serum or plasma albumin/glob ulin mass ratioOrdered By: Dr. Calvillo on 11-30-2022 Albumin/Globulin [Mass ratio] 1.0 {ratio} 0.9-2.4 Serum or plasma calcium amanda urement (mass/volume)Ordered By: Dr. Calvillo on 11-30-2022 Calcium [Mass/Vol] 10.3 mg/dL 8.5-10.1 [facility] Serum or plasma creatinine m easurement (mass/volume)Ordered By: Dr. Calvillo on 11-30-2022 Creatinine [Mass/Vol] 1.09 mg/dL 0.55-1.[address] [facility] Comment on above: The validity of the calculated GFR & GFRAA in patients over 70 years has not been determined. Clinical correlation is essential. Serum or plasma urea nitroge n measurement (mass/volume)Ordered By: Dr. Calvillo on 11-30-2022 Urea nitrogen [Mass/Vol] 17 mg/dL 7-18 Thin prep Papanicolaou smear with manual screeningOrdered By: Dr. Calvillo on 11-30-2022 Thin prep Papanicolaou smear with manual screening 59 U/L 15-37 Thin prep Papanicolaou smear with manual screening 8 5-15 Blood platelet adequacy dete ction by light microscopyOrdered By: Dr. Calvillo on 10-26-2022 Platelets LM Ql (Bld) ADEQUATE [facility] Macrocytes Ql (Bld)Ordered B y: Myron Calvillo on 10-26-2022 Macrocytosis 1+ Macrocytes detectionOrdered By: Dr. Calvillo on 10-26-2022 Macrocytes Ql (Bld) 1+ [facility] Platelets LM Ql (Bld)Ordered By: Myron Calvillo on 10-26-2022 Platelet Estimate ADEQUATE [facility] No Panel InformationOrdered By: Dr. Calvillo on 09-28-2022 CA 15-3 Antigen 33.7 U/mL 0.0-25.0 Comment on above: [employer] El ectrochemiluminescence Immunoassay(ECLIA)Values obtained with different assay methods or kits cannotbe used interchangeably. Results cannot be interpreted asabsolute evidence of the presence or absence of malignantdisease.Performed at: [email or web address] [id number] Director: Reese Willingham PhD, Phone: [phone] [place] 27.29 33.0 U/mL 0.0-38.6 Comment on above: [employer] Immu nochemiluminometric Methodology (ICMA)Values obtained with different assay methods or kits cannotbe used interchangeably. Results cannot be interpreted asabsolute evidence of the presence or absence of malignantdisease. Reactive Lymphocytes RARE [facility] Absolute lymphocyte counton 08-31-2022 Lymphocytes Auto (Unsp spec) [#/Vol] 0.62 10*3/uL 0.83-4.51 Work Phone: Basophil percentageon 2021 Basophil percentage 4.0 mg/dL 2.5-4.9 [facility] Work Phone: Basophils/100 WBC (Bld) 1.6 % 0-1 Work Phone: Bilirubin [Mass/Vol] 0.40 mg/dL 0.20-1.00 [facility] Work Phone: Comment on above: For patients on eltr ombopag therapy, use of Dimension [place] TBIL is not recommended. Chloride [Moles/Vol] 105 mmol/L 98-107 [facility] Work Phone: Eosinophils/100 WBC (Bld) 2.6 % 0-5 Work Phone: Glucose [Mass/Vol] 165 mg/dL 74-106 [facility] Work Phone: Comment on above: Fasting Glucose resu lt greater than or equal to 126 mg/dL suggests DIABETES MELLITUS per A.D.A. criteria. Neutrophils (Bld) [#/Vol] 1.0 10*3/uL 2.0-7.7 Work Phone: Neutrophils/100 WBC (Bld) 50.0 % 47-70 Work Phone: [phone] Potassium [Moles/Vol] 3.7 mmol/L 3.5-5.[address] [facility] Work Phone: Protein [Mass/Vol] 6.6 g/dL 6.4-8.2 [facility] Work Phone: Sodium [Moles/Vol] 141 mmol/L 136-145 [facility] Work Phone: WBC (Bld) [#/Vol] 1.9 10*3/uL 4.4-11.0 [facility] Work Phone: Blood erythrocytes count (nu mber/volume)on 08-31-2022 RBC (Bld) [#/Vol] 3.75 10*6/uL 4.2-5.4 [facility] Work Phone: Blood hemoglobin measurement (mass/volume)on 08-31-2022 Hemoglobin (Bld) [Mass/Vol] 13.1 g/dL 12.0-15.0 Work Phone: Blood lymphocytes/100 leukoc yteson 08-31-2022 Lymphocytes/100 WBC (Bld) 32.3 % 19-41 Work Phone: Blood monocytes/100 leukocyt eson 08-31-2022 Monocytes/100 WBC (Bld) 13.5 % 0-10 Work Phone: Blood platelet mean volumeon 08-31-2022 Platelet mean volume (Bld) [Entitic vol] 8.9 fL 6.2-12.0 Work Phone: [phone] Determination of erythrocyte mean corpuscular volume (MCV)on 08-31-2022 MCV (RBC) [Entitic vol] 100.0 fL 81-99 Work Phone: Hematocrit Auto (Bld) [Volum e fraction]on 08-31-2022 Hematocrit (Bld) [Volume fraction] 37.5 % 37-47 Work Phone: Laboratory - Chemistry and C hemistry - challengeon 08-31-2022 ALP [Catalytic activity/Vol] 82 U/L 45-117 Work Phone: ALT [Catalytic activity/Vol] 62 U/L 13-56 Work Phone: [phone] CO2 [Moles/Vol] 30.0 mmol/L 21.0-32.0 Work Phone: [phone] Globulin (S) [Mass/Vol] 3.3 g/dL 2.2-4.2 Work Phone: Urea nitrogen/Creatinine [Mass ratio] 11.3 mg/mg 10-20 Work Phone: [phone] Laboratory - Hematology and Cell countson 08-31-2022 Erythrocyte distribution width (RBC) [Entitic vol] 55.7 fL 35.1-43.9 Work Phone: [phone] Erythrocyte distribution width (RBC) [Ratio] 15.1 % 11.6-14.6 Work Phone: Immature granulocytes/100 WBC (Bld) 0.000 % 0.0-0.9 Work Phone: Comment on above: IG% - Immature Granu locytes (promyelocytes, myelocytes and metamyelocytes) > 1% indicates that a LEFT SHIFT is Present. MCH (RBC) [Entitic mass] 34.9 pg 27.0-32.0 Work Phone: Nucleated RBC/100 WBC (Bld) [Ratio] 0 % 0-5 Work Phone: MCHC Auto (RBC) [Mass/Vol]on 08-31-2022 MCHC (RBC) [Mass/Vol] 34.9 g/dL 32-[address] [facility] Work Phone: No Panel Informationon 08-31 Estimated Creatinine Clearance Calc 46.89 ml/min Work Phone: Estimated GFR (MDRD) Amer 66 mL/min >60 Work Phone: Comment on above: GFR Calc Estimated GFR (MDRD) Non-Af Amer 55 mL/min >60 Work Phone: Comment on above: Non- GFR Calc Vitamin D 25-Hydroxy 73.8 ng/mL [facility] Work Phone: Comment on above: Vitamin D 25(OH) Sta tus Range Deficiency <20 ng/mL (50nmol/L) Insufficiency 20 - 30 ng/mL (50 - 75 nmol/L) Sufficiency 30 - 100 ng/mL (75 - 250 nmol/L) Toxicity >100 ng/mL (>250 nmol/L) Platelets bldon 08-31-2022 Platelets (Bld) [#/Vol] 160 10*3/uL 150-450 Work Phone: Serum or plasma albumin amanda urement (mass/volume)on 08-31-2022 Albumin [Mass/Vol] 3.3 g/dL 3.2-5.0 [facility] Work Phone: Serum or plasma albumin/glob ulin mass ratioon 08-31-2022 Albumin/Globulin [Mass ratio] 1.0 {ratio} 0.9-2.4 Work Phone: Serum or plasma calcium amanda urement (mass/volume)on 08-31-2022 Calcium [Mass/Vol] 8.9 mg/dL 8.5-10.1 [facility] Work Phone: Serum or plasma creatinine m easurement (mass/volume)on 08-31-2022 Creatinine [Mass/Vol] 1.06 mg/dL 0.55-1.[address] [facility] Work Phone: Comment on above: The validity of the calculated GFR & GFRAA in patients over 70 years has not been determined. Clinical correlation is essential. Serum or plasma urea nitroge n measurement (mass/volume)on 08-31-2022 Urea nitrogen [Mass/Vol] 12 mg/dL 7-18 Work Phone: Thin prep Papanicolaou smear with manual screeningon 08-31-2022 Thin prep Papanicolaou smear with manual screening 56 U/L 15-37 Work Phone: Thin prep Papanicolaou smear with manual screening 6 5-15 Work Phone: Thin prep Papanicolaou smear with manual screening 185 U/L 84-246 Work Phone: No Panel Informationon 08-03 CA 15-3 Antigen 37.0 U/mL 0.0-25.0 Work Phone: Comment on above: [employer] El ectrochemiluminescence Immunoassay(ECLIA)Values obtained with different assay methods or kits cannotbe used interchangeably. Results cannot be interpreted asabsolute evidence of the presence or absence of malignantdisease.Performed at: [employer] [id number] Director: Reese Willingham PhD, Phone: [phone] [place] 27.29 45.8 U/mL 0.0-38.6 Work Phone: Comment on above: [employer] Immu nochemiluminometric Methodology (ICMA)Values obtained with different assay methods or kits cannotbe used interchangeably. Results cannot be interpreted asabsolute evidence of the presence or absence of malignantdisease. Laboratory - Chemistry and C hemistry - challengeOrdered By: Dr. Calvillo on 06-07-2022 Magnesium [Mass/Vol] 1.8 mg/dL 1.6-2.6 [facility] Basophil percentageOrdered B y: Dr. Calvillo on 05-31-2022 Basophil percentage 0-5 SEEN /hpf 0-5 [facility] Bilirubin Test strip Ql (U)O rdered By: Dr. Calvillo on 05-31-2022 Bilirubin Ql (U) Negative Negative Blood manual differential co mment interpretation (narrative result)on 05-31-2022 Manual differential comment Marcial (Bld) [Interp] COMMENT Work Phone: Comment on above: NEUTROPENIA. Ketones Test strip Ql (U)Ord ered By: Dr. Calvillo on 05-31-2022 Ketones Ql (U) Negative Negative Mucus LM Ql (Urine sed)Order ed By: Dr. Calvillo on 05-31-2022 Mucus Ql (Urine sed) 0 SEEN /hpf [facility] Nitrite Test strip Ql (U)Ord ered By: Dr. Calvillo on 05-31-2022 Nitrite Ql (U) Negative Negative Protein Test strip Ql (U)Ord ered By: Dr. Calvillo on 05-31-2022 Protein Ql (U) Negative Negative Squamous epithelial cells de tection in urine sediment by light microscopyOrdered By: Dr. Calvillo on 05-31-2022 Epithelial cells.squamous LM Ql (Urine sed) 0-5 SEEN /hpf 5-10 Urine blood detectionOrdered By: Dr. Calvillo on 05-31-2022 RBC Ql (U) 25 /ul Negative RBC Ql (U) 0-5 SEEN /hpf 0-5 Urine clarityOrdered By: Dr. Calvillo on 05-31-2022 Clarity (U) Sl. Cloudy Clear Urine color determinationOrd ered By: Dr. Calvillo on 05-31-2022 Color (U) Yellow Yellow Urine glucose detectionOrder ed By: Dr. Calvillo on 05-31-2022 Glucose Ql (U) 1000 mg/dl Normal Urine leukocyte esterase det ection by dipstickOrdered By: Dr. Calvillo on 05-31-2022 Leukocyte esterase Test strip Ql (U) 500 /ul Negative Urine pHOrdered By: Dr. Calvillo on 05-31-2022 pH (U) 6.0 [pH] 5.0 - 8.0 Urine sediment bacteria coun t by microscopy (number/high power field)Ordered By: Dr. Calvillo on 05-31-2022 Bacteria LM.HPF (Urine sed) [#/Area] 2 /[HPF] None Seen Urine specific gravity measu rementOrdered By: Dr. Calvillo on 05-31-2022 Specific gravity (U) [Rel density] 1.015 1.002-1.030 Urobilinogen Auto test strip Ql (U)Ordered By: Dr. Calvillo on 05-31-2022 Urobilinogen Ql (U) Normal mg/dl Normal [facility] Absolute lymphocyte counton 04-26-2022 Lymphocytes Auto (Unsp spec) [#/Vol] 0.77 10*3/uL 0.83-4.51 Work Phone: Basophil percentageon 2021 Basophil percentage 3.9 mg/dL 2.5-4.9 [facility] Work Phone: Basophils/100 WBC (Bld) 2.2 % 0-1 Work Phone: Bilirubin [Mass/Vol] 0.30 mg/dL 0.20-1.00 [facility] Work Phone: Comment on above: For patients on eltr ombopag therapy, use of Dimension [place] TBIL is not recommended. Chloride [Moles/Vol] 103 mmol/L 98-107 [facility] Work Phone: Eosinophils/100 WBC (Bld) 3.6 % 0-5 Work Phone: Glucose [Mass/Vol] 145 mg/dL 74-106 [facility] Work Phone: Comment on above: Fasting Glucose resu lt greater than or equal to 126 mg/dL suggests DIABETES MELLITUS per A.D.A. criteria. Neutrophils (Bld) [#/Vol] 1.3 10*3/uL 2.0-7.7 Work Phone: Neutrophils/100 WBC (Bld) 48.7 % 47-70 Work Phone: Potassium [Moles/Vol] 4.2 mmol/L 3.5-5.[address] [facility] Work Phone: Protein [Mass/Vol] 6.4 g/dL 6.4-8.2 [facility] Work Phone: Sodium [Moles/Vol] 138 mmol/L 136-145 [facility] Work Phone: WBC (Bld) [#/Vol] 2.8 10*3/uL 4.4-11.0 [facility] Work Phone: Blood erythrocytes count (nu mber/volume)on 04-26-2022 RBC (Bld) [#/Vol] 3.56 10*6/uL 4.2-5.4 [facility] Work Phone: Blood hemoglobin measurement (mass/volume)on 04-26-2022 Hemoglobin (Bld) [Mass/Vol] 11.8 g/dL 12.0-15.0 Work Phone: Blood lymphocytes/100 leukoc yteson 04-26-2022 Lymphocytes/100 WBC (Bld) 28.0 % 19-41 Work Phone: Blood monocytes/100 leukocyt eson 04-26-2022 Monocytes/100 WBC (Bld) 17.1 % 0-10 Work Phone: Blood platelet mean volumeon 04-26-2022 Platelet mean volume (Bld) [Entitic vol] 9.3 fL 6.2-12.0 Work Phone: Determination of erythrocyte mean corpuscular volume (MCV)on 04-26-2022 MCV (RBC) [Entitic vol] 98.6 fL 81-99 Work Phone: Hematocrit Auto (Bld) [Volum e fraction]on 04-26-2022 Hematocrit (Bld) [Volume fraction] 35.1 % 37-47 Work Phone: Laboratory - Chemistry and C hemistry - challengeon 04-26-2022 ALP [Catalytic activity/Vol] 140 U/L 45-117 Work Phone: ALT [Catalytic activity/Vol] 58 U/L 13-56 Work Phone: CO2 [Moles/Vol] 30.0 mmol/L 21.0-32.0 Work Phone: Globulin (S) [Mass/Vol] 3.2 g/dL 2.2-4.2 Work Phone: Urea nitrogen/Creatinine [Mass ratio] 24.7 mg/mg 10-20 Work Phone: Laboratory - Hematology and Cell countson 04-26-2022 Erythrocyte distribution width (RBC) [Entitic vol] 62.3 fL 35.1-43.9 Work Phone: Erythrocyte distribution width (RBC) [Ratio] 17.0 % 11.6-14.6 Work Phone: Immature granulocytes/100 WBC (Bld) 0.400 % 0.0-0.9 Work Phone: Comment on above: IG% - Immature Granu locytes (promyelocytes, myelocytes and metamyelocytes) > 1% indicates that a LEFT SHIFT is Present. MCH (RBC) [Entitic mass] 33.1 pg 27.0-32.0 Work Phone: Nucleated RBC/100 WBC (Bld) [Ratio] 0.7 % 0-5 Work Phone: MCHC Auto (RBC) [Mass/Vol]on 04-26-2022 MCHC (RBC) [Mass/Vol] 33.6 g/dL 32-[address] [facility] Work Phone: No Panel Informationon 04-26 Estimated Creatinine Clearance Calc 53.45 ml/min Work Phone: Estimated GFR (MDRD) Amer 77 mL/min >60 Work Phone: Comment on above: GFR Calc Estimated GFR (MDRD) Non-Af Amer 63 mL/min >60 Work Phone: Comment on above: Non- GFR Calc Vitamin D 25-Hydroxy 64.7 ng/mL [facility] Work Phone: Comment on above: Vitamin D 25(OH) Sta tus Range Deficiency <20 ng/mL (50nmol/L) Insufficiency 20 - 30 ng/mL (50 - 75 nmol/L) Sufficiency 30 - 100 ng/mL (75 - 250 nmol/L) Toxicity >100 ng/mL (>250 nmol/L) Platelets bldon 04-26-2022 Platelets (Bld) [#/Vol] 195 10*3/uL 150-450 Work Phone: Serum or plasma albumin amanda urement (mass/volume)on 04-26-2022 Albumin [Mass/Vol] 3.2 g/dL 3.2-5.0 [facility] Work Phone: Serum or plasma albumin/glob ulin mass ratioon 04-26-2022 Albumin/Globulin [Mass ratio] 1.0 {ratio} 0.9-2.4 Work Phone: Serum or plasma calcium amanda urement (mass/volume)on 04-26-2022 Calcium [Mass/Vol] 9.0 mg/dL 8.5-10.1 [facility] Work Phone: Serum or plasma creatinine m easurement (mass/volume)on 04-26-2022 Creatinine [Mass/Vol] 0.93 mg/dL 0.55-1.[address] [facility] Work Phone: Comment on above: The validity of the calculated GFR & GFRAA in patients over 70 years has not been determined. Clinical correlation is essential. Serum or plasma urea nitroge n measurement (mass/volume)on 04-26-2022 Urea nitrogen [Mass/Vol] 23 mg/dL 7-18 Work Phone: Thin prep Papanicolaou smear with manual screeningon 04-26-2022 Thin prep Papanicolaou smear with manual screening 50 U/L 15-37 Work Phone: Thin prep Papanicolaou smear with manual screening 5 5-15 Work Phone: Basophil percentageOrdered B y: Dr. Calvillo on 04-19-2022 Cholesterol [Mass/Vol] 133 mg/dL <200 [facility] Comment on above: <200 mg/dL Desirable 200-240 mg/dL Borderline >240 mg/dL High Risk Triglyceride [Mass/Vol] 260 mg/dL High <199 Comment on above: The drugs N-Acetylcy steine and Metamizole may falsely depress this assay.Serum Triglycerides Reference Interval Normal <150 mg/dL Borderline high 150 - 199 mg/dL High 200 - 499 mg/dL Very High > or = 500 mg/dL Blood platelet adequacy dete ction by light microscopyon 04-19-2022 Platelets LM Ql (Bld) ADEQUATE ADEQ [facility] Work Phone: Blood polychromasia detectio n by light microscopyOrdered By: Dr. Calvillo on 04-19-2022 Polychromasia LM Ql (Bld) 1+ Cholesterol in VLDL [Mass/Vo l]Ordered By: Myron Calvillo on 04-19-2022 VLDL Cholesterol 52 mg/dL High 5-40 Laboratory - Chemistry and C hemistry - challengeOrdered By: Dr. Calvillo on 04-19-2022 Free T4 [Mass/Vol] 1.07 ng/dL 0.76-1.46 [facility] Laboratory - Hematology and Cell countsOrdered By: Dr. Calvillo on 04-19-2022 Anisocytosis Ql (Bld) 1+ [facility] No Panel InformationOrdered By: Dr. Calvillo on 04-19-2022 Thyroid Stimulating Hormone (TSH) 1.74 uIU/mL 0.358-3.74 Polychromasia LM Ql (Bld)Ord ered By: Myron Calvillo on 04-19-2022 Polychromasia 1+ PotassiumOrdered By: Myron Calvillo on 04-19-2022 Potassium [Mass/Vol] 133 mg/dL <200 [facility] Comment on above: <200 mg/dL Desirable 200-240 mg/dL Borderline >240 mg/dL High Risk Potassium [Mass/Vol] 260 mg/dL High <199 [facility] Comment on above: The drugs N-Acetylcy steine and Metamizole may falsely depress this assay.Serum Triglycerides Reference Interval Normal <150 mg/dL Borderline high 150 - 199 mg/dL High 200 - 499 mg/dL Very High > or = 500 mg/dL Review by pathologistOrdered By: Dr. Calvillo on 04-19-2022 Pathologist review Marcial (Unsp spec) [Interp] Reviewed Comment on above: Previous reported re sult: Anastasia zaheer Edited by: JAYSON on 04/20/22:1301Leukopenia and neutropenia. Clinical correlation necessary.Iam Mcclure M.D. 04/20/22 AMENDED REPORT 04/20/22 1301 PATH REV previously reported as: Anastasia foll Serum or plasma cholesterol in HDL measurement (mass/volume)Ordered By: Dr. Calvillo on 04-19-2022 Cholesterol in HDL [Mass/Vol] 39 mg/dL Low >40 Comment on above: The drugs N-Acetylcy steine and Metamizole may falsely depress this assay. Reference Range HDL <40 mg/dL Low HDL Cholesterol HDL >or= 60 mg/dL High HDL Cholesterol Serum or plasma cholesterol in VLDL measurement (mass/volume)Ordered By: Dr. Calvillo on 04-19-2022 Cholesterol in VLDL [Mass/Vol] 52 mg/dL High 5-40 Serum or plasma low density lipoprotein (LDL) cholesterol measurement (mass/volume)Ordered By: Dr. Calvillo on 04-19-2022 Cholesterol in LDL [Mass/Vol] 42 mg/dL 0-130 Thin prep Papanicolaou smear with manual screeningon 04-19-2022 Thin prep Papanicolaou smear with manual screening 176 U/L 84-246 Work Phone: Blood manual differential co mment interpretation (narrative result)on 03-16-2022 Manual differential comment Marcial (Bld) [Interp] SCANNED Work Phone: Comment on above: NEUTROPENIA NOTED No Panel Informationon 03-16 CA 15-3 Antigen 61.6 U/mL 0.0-25.0 Work Phone: Comment on above: [employer] El ectrochemiluminescence Immunoassay(ECLIA)Values obtained with different assay methods or kits cannotbe used interchangeably. Results cannot be interpreted asabsolute evidence of the presence or absence of malignantdisease.Performed at: [address] [id number] Director: Reese Willingham PhD, Phone: [phone] [place] 27.29 84.6 U/mL 0.0-38.6 Work Phone: Comment on above: [employer] Immu nochemiluminometric Methodology (ICMA)Values obtained with different assay methods or kits cannotbe used interchangeably. Results cannot be interpreted asabsolute evidence of the presence or absence of malignantdisease. No Panel Informationon 02-09 D-Dimer Quantitative (PE/DVT) 0.28 FEU/ug/m 0.27-0.49 Comment on above: NORMAL D-Dimer level (<0.50) indicates no DVT or PE. RBC morphologyon 02-09-2022 RBC morphology finding Nom (Bld) N CYTIC NORMAL NORM C&C RBC morphology finding Nom ( Bld)on 02-09-2022 Red Blood Cell Morphology N CYTIC NORMAL NORM C&C Laboratory - Chemistry and C hemistry - challengeon 01-14-2022 Free T4 [Mass/Vol] 1.13 ng/dL 0.76-1.46 [facility] Work Phone: No Panel Informationon 01-14 Thyroid Stimulating Hormone (TSH) 4.33 uIU/mL 0.358-3.74 Work Phone: Absolute lymphocyte counton 01-11-2022 Lymphocytes Auto (Unsp spec) [#/Vol] 0.82 10*3/uL 0.83-4.51 Work Phone: Basophil percentageon 2021 Basophil percentage 3.6 mg/dL 2.5-4.9 [facility] Work Phone: Basophils/100 WBC (Bld) 0.4 % 0-1 Work Phone: Bilirubin [Mass/Vol] 0.40 mg/dL 0.20-1.00 [facility] Work Phone: Comment on above: For patients on eltr ombopag therapy, use of [facility] [place] TBIL is not recommended. Chloride [Moles/Vol] 102 mmol/L 98-107 [facility] Work Phone: Eosinophils/100 WBC (Bld) 1.9 % 0-5 Work Phone: Glucose [Mass/Vol] 169 mg/dL 74-106 [facility] Work Phone: Comment on above: Fasting Glucose resu lt greater than or equal to 126 mg/dL suggests DIABETES MELLITUS per A.D.A. criteria. Neutrophils (Bld) [#/Vol] 4.0 10*3/uL 2.0-7.7 Work Phone: Neutrophils/100 WBC (Bld) 74.3 % 47-70 Work Phone: Potassium [Moles/Vol] 4.1 mmol/L 3.5-5.[address] [facility] Work Phone: Protein [Mass/Vol] 6.7 g/dL 6.4-8.2 [facility] Work Phone: Sodium [Moles/Vol] 138 mmol/L 136-145 [facility] Work Phone: WBC (Bld) [#/Vol] 5.4 10*3/uL 4.4-11.0 [facility] Work Phone: Blood erythrocytes count (nu mber/volume)on 01-11-2022 RBC (Bld) [#/Vol] 4.25 10*6/uL 4.2-5.4 [facility] Work Phone: Blood hemoglobin measurement (mass/volume)on 01-11-2022 Hemoglobin (Bld) [Mass/Vol] 12.8 g/dL 12.0-15.0 Work Phone: Blood lymphocytes/100 leukoc yteson 01-11-2022 Lymphocytes/100 WBC (Bld) 15.2 % 19-41 Work Phone: Blood monocytes/100 leukocyt eson 01-11-2022 Monocytes/100 WBC (Bld) 7.8 % 0-10 Work Phone: [phone] Blood platelet mean volumeon 01-11-2022 Platelet mean volume (Bld) [Entitic vol] 9.5 fL 6.2-12.0 Work Phone: [phone] Determination of erythrocyte mean corpuscular volume (MCV)on 01-11-2022 MCV (RBC) [Entitic vol] 90.8 fL 81-99 Work Phone: Hematocrit Auto (Bld) [Volum e fraction]on 01-11-2022 Hematocrit (Bld) [Volume fraction] 38.6 % 37-47 Work Phone: [phone] Laboratory - Chemistry and C hemistry - challengeon 01-11-2022 ALP [Catalytic activity/Vol] 199 U/L 45-117 Work Phone: ALT [Catalytic activity/Vol] 34 U/L 13-56 Work Phone: CO2 [Moles/Vol] 29.0 mmol/L 21.0-32.0 Work Phone: [phone] Globulin (S) [Mass/Vol] 3.6 g/dL 2.2-4.2 Work Phone: [phone] Urea nitrogen/Creatinine [Mass ratio] 14.9 mg/mg 10-20 Work Phone: [phone] Laboratory - Hematology and Cell countson 01-11-2022 Erythrocyte distribution width (RBC) [Entitic vol] 47.1 fL 35.1-43.9 Work Phone: [phone] Erythrocyte distribution width (RBC) [Ratio] 14.1 % 11.6-14.6 Work Phone: Immature granulocytes/100 WBC (Bld) 0.400 % 0.0-0.9 Work Phone: [phone] Comment on above: IG% - Immature Granu locytes (promyelocytes, myelocytes and metamyelocytes) > 1% indicates that a LEFT SHIFT is Present. MCH (RBC) [Entitic mass] 30.1 pg 27.0-32.0 Work Phone: Nucleated RBC/100 WBC (Bld) [Ratio] 0 % 0-5 Work Phone: MCHC Auto (RBC) [Mass/Vol]on 01-11-2022 MCHC (RBC) [Mass/Vol] 33.2 g/dL 32-[address] [facility] Work Phone: No Panel Informationon 01-11 CA 15-3 Antigen 60.7 U/mL Work Phone: Comment on above: [employer] El ectrochemiluminescence Immunoassay(ECLIA)Values obtained with different assay methods or kits cannotbe used interchangeably. Results cannot be interpreted asabsolute evidence of the presence or absence of malignantdisease.Performed at: [facility] Director: Reese Willingham PhD, Phone: [phone] [place] 27.29 82.9 U/mL Work Phone: Comment on above: [employer] Immu nochemiluminometric Methodology (ICMA)Values obtained with different assay methods or kits cannotbe used interchangeably. Results cannot be interpreted asabsolute evidence of the presence or absence of malignantdisease. Estimated Creatinine Clearance Calc 44.21 ml/min Work Phone: Estimated GFR (MDRD) Amer 61 mL/min >60 Work Phone: Comment on above: GFR Calc Estimated GFR (MDRD) Non-Af Amer 50 mL/min >60 Work Phone: Comment on above: Non- GFR Calc Vitamin D 25-Hydroxy 94.8 ng/mL [facility] Work Phone: Comment on above: Vitamin D 25(OH) Sta tus Range Deficiency <20 ng/mL (50nmol/L) Insufficiency 20 - 30 ng/mL (50 - 75 nmol/L) Sufficiency 30 - 100 ng/mL (75 - 250 nmol/L) Toxicity >100 ng/mL (>250 nmol/L) Platelets bldon 01-11-2022 Platelets (Bld) [#/Vol] 249 10*3/uL 150-450 Work Phone: Serum or plasma albumin amanda urement (mass/volume)on 01-11-2022 Albumin [Mass/Vol] 3.1 g/dL 3.2-5.0 [facility] Work Phone: Serum or plasma albumin/glob ulin mass ratioon 01-11-2022 Albumin/Globulin [Mass ratio] 0.9 {ratio} 0.9-2.4 Work Phone: Serum or plasma calcium amanda urement (mass/volume)on 01-11-2022 Calcium [Mass/Vol] 8.6 mg/dL 8.5-10.1 [facility] Work Phone: Serum or plasma creatinine m easurement (mass/volume)on 01-11-2022 Creatinine [Mass/Vol] 1.14 mg/dL 0.55-1.[address] [facility] Work Phone: Comment on above: The validity of the calculated GFR & GFRAA in patients over 70 years has not been determined. Clinical correlation is essential. Serum or plasma urea nitroge n measurement (mass/volume)on 01-11-2022 Urea nitrogen [Mass/Vol] 17 mg/dL 7-18 Work Phone: Thin prep Papanicolaou smear with manual screeningon 01-11-2022 Thin prep Papanicolaou smear with manual screening 42 U/L 15-37 Work Phone: Thin prep Papanicolaou smear with manual screening 7 5-15 Work Phone: Thin prep Papanicolaou smear with manual screening 185 U/L 84-246 Work Phone: Absolute lymphocyte counton 11-30-2021 Lymphocytes Auto (Unsp spec) [#/Vol] 0.88 10*3/uL 0.83-4.51 Work Phone: Basophil percentageon 2021 Basophil percentage 25-50 SEEN /hpf 0-5 Work Phone: Basophils/100 WBC (Bld) 0.6 % 0-1 Work Phone: Bilirubin [Mass/Vol] 0.40 mg/dL 0.20-1.00 [facility] Work Phone: Comment on above: For patients on eltr ombopag therapy, use of [facility] [place] TBIL is not recommended. Chloride [Moles/Vol] 109 mmol/L 98-107 [facility] Work Phone: Eosinophils/100 WBC (Bld) 2.4 % 0-5 Work Phone: Glucose [Mass/Vol] 105 mg/dL 74-106 [facility] Work Phone: Comment on above: Fasting Glucose resu lt from 100 to 125 mg/dL suggests IMPAIRED HOMEOSTASIS per A.D.A. criteria. Neutrophils (Bld) [#/Vol] 3.2 10*3/uL 2.0-7.7 Work Phone: Neutrophils/100 WBC (Bld) 67.8 % 47-70 Work Phone: Potassium [Moles/Vol] 3.7 mmol/L 3.5-5.[address] [facility] Work Phone: Protein [Mass/Vol] 6.1 g/dL 6.4-8.2 [facility] Work Phone: Sodium [Moles/Vol] 140 mmol/L 136-145 [facility] Work Phone: WBC (Bld) [#/Vol] 4.7 10*3/uL 4.4-11.0 [facility] Work Phone: Bilirubin Test strip Ql (U)o n 11-30-2021 Bilirubin Ql (U) Negative Negative Work Phone: [phone] Blood erythrocytes count (nu mber/volume)on 11-30-2021 RBC (Bld) [#/Vol] 4.00 10*6/uL 4.2-5.4 [facility] Work Phone: [phone] Blood hemoglobin measurement (mass/volume)on 11-30-2021 Hemoglobin (Bld) [Mass/Vol] 12.3 g/dL 12.0-15.0 Work Phone: Blood lymphocytes/100 leukoc yteson 11-30-2021 Lymphocytes/100 WBC (Bld) 18.9 % 19-41 Work Phone: Blood monocytes/100 leukocyt eson 11-30-2021 Monocytes/100 WBC (Bld) 9.9 % 0-10 Work Phone: [phone] Blood platelet mean volumeon 11-30-2021 Platelet mean volume (Bld) [Entitic vol] 9.8 fL 6.2-12.0 Work Phone: Determination of erythrocyte mean corpuscular volume (MCV)on 11-30-2021 MCV (RBC) [Entitic vol] 92.0 fL 81-99 Work Phone: [phone] Hematocrit Auto (Bld) [Volum e fraction]on 11-30-2021 Hematocrit (Bld) [Volume fraction] 36.8 % 37-47 Work Phone: [phone] Ketones Test strip Ql (U)on 11-30-2021 Ketones Ql (U) Negative Negative Work Phone: Laboratory - Chemistry and C hemistry - challengeon 11-30-2021 ALP [Catalytic activity/Vol] 150 U/L 45-117 Work Phone: [phone] ALT [Catalytic activity/Vol] 37 U/L 13-56 Work Phone: CO2 [Moles/Vol] 27.0 mmol/L 21.0-32.0 Work Phone: Globulin (S) [Mass/Vol] 3.1 g/dL 2.2-4.2 Work Phone: Urea nitrogen/Creatinine [Mass ratio] 15.4 mg/mg 10-20 Work Phone: Laboratory - Hematology and Cell countson 11-30-2021 Erythrocyte distribution width (RBC) [Entitic vol] 45.4 fL 35.1-43.9 Work Phone: Erythrocyte distribution width (RBC) [Ratio] 13.4 % 11.6-14.6 Work Phone: Immature granulocytes/100 WBC (Bld) 0.400 % 0.0-0.9 Work Phone: Comment on above: IG% - Immature Granu locytes (promyelocytes, myelocytes and metamyelocytes) > 1% indicates that a LEFT SHIFT is Present. MCH (RBC) [Entitic mass] 30.8 pg 27.0-32.0 Work Phone: Nucleated RBC/100 WBC (Bld) [Ratio] 0 % 0-5 Work Phone: MCHC Auto (RBC) [Mass/Vol]on 11-30-2021 MCHC (RBC) [Mass/Vol] 33.4 g/dL 32-[address] [facility] Work Phone: Mucus LM Ql (Urine sed)on Mucus Ql (Urine sed) 0 SEEN /hpf [facility] Work Phone: Nitrite Test strip Ql (U)on 11-30-2021 Nitrite Ql (U) Positive Negative Work Phone: No Panel Informationon 11-30 CA 15-3 Antigen 49.1 U/mL Work Phone: Comment on above: [employer] El ectrochemiluminescence Immunoassay(ECLIA)Values obtained with different assay methods or kits cannotbe used interchangeably. Results cannot be interpreted asabsolute evidence of the presence or absence of malignantdisease.Performed at: [facility] [email or web address] [id number] Director: Reese Willingham PhD, Phone: [phone] [place] 27.29 69.0 U/mL Work Phone: Comment on above: [employer] Immu nochemiluminometric Methodology (ICMA)Values obtained with different assay methods or kits cannotbe used interchangeably. Results cannot be interpreted asabsolute evidence of the presence or absence of malignantdisease. Estimated Creatinine Clearance Calc 48.47 ml/min Work Phone: Estimated GFR (MDRD) Amer 68 mL/min >60 Work Phone: Comment on above: GFR Calc Estimated GFR (MDRD) Non-Af Amer 56 mL/min >60 Work Phone: Comment on above: Non- GFR Calc Platelets bldon 11-30-2021 Platelets (Bld) [#/Vol] 198 10*3/uL 150-450 Work Phone: Protein Test strip Ql (U)on 11-30-2021 Protein Ql (U) 30 mg/dl Negative Work Phone: Serum or plasma albumin amanda urement (mass/volume)on 11-30-2021 Albumin [Mass/Vol] 3.0 g/dL 3.2-5.0 [facility] Work Phone: Serum or plasma albumin/glob ulin mass ratioon 11-30-2021 Albumin/Globulin [Mass ratio] 1.0 {ratio} 0.9-2.4 Work Phone: Serum or plasma calcium amanda urement (mass/volume)on 11-30-2021 Calcium [Mass/Vol] 9.0 mg/dL 8.5-10.1 [facility] Work Phone: Serum or plasma creatinine m easurement (mass/volume)on 11-30-2021 Creatinine [Mass/Vol] 1.04 mg/dL 0.55-1.[address] [facility] Work Phone: Comment on above: The validity of the calculated GFR & GFRAA in patients over 70 years has not been determined. Clinical correlation is essential. Serum or plasma urea nitroge n measurement (mass/volume)on 11-30-2021 Urea nitrogen [Mass/Vol] 16 mg/dL 7-18 Work Phone: Squamous epithelial cells de tection in urine sediment by light microscopyon 11-30-2021 Epithelial cells.squamous LM Ql (Urine sed) 0-5 SEEN /hpf 5-10 Work Phone: Thin prep Papanicolaou smear with manual screeningon 11-30-2021 Thin prep Papanicolaou smear with manual screening 41 U/L 15-37 Work Phone: Thin prep Papanicolaou smear with manual screening 4 5-15 Work Phone: Thin prep Papanicolaou smear with manual screening 163 U/L 84-246 Work Phone: Urine blood detectionon 11-11 RBC Ql (U) 25 /ul Negative Work Phone: RBC Ql (U) 0-5 SEEN /hpf 0-5 Work Phone: Urine clarityon 11-30-2021 Clarity (U) Sl. Cloudy Clear Work Phone: Urine color determinationon 11-30-2021 Color (U) Yellow Yellow Work Phone: Urine glucose detectionon Glucose Ql (U) 1000 mg/dl Normal Work Phone: Urine leukocyte esterase det ection by dipstickon 11-30-2021 Leukocyte esterase Test strip Ql (U) 500 /ul Negative Work Phone: Urine pHon 11-30-2021 pH (U) 5.0 [pH] 5.0 - 8.0 Work Phone: Urine sediment bacteria coun t by microscopy (number/high power field)on 11-30-2021 Bacteria LM.HPF (Urine sed) [#/Area] 1 /[HPF] None Seen Work Phone: Urine specific gravity measu rementon 11-30-2021 Specific gravity (U) [Rel density] 1.015 1.002-1.030 Work Phone: Urobilinogen Auto test strip Ql (U)on 11-30-2021 Urobilinogen Ql (U) Normal mg/dl Normal [facility] Work Phone: Basophil percentageon 2021 Cholesterol [Mass/Vol] 123 mg/dL <200 [facility] Work Phone: Comment on above: <200 mg/dL Desirable 200-240 mg/dL Borderline >240 mg/dL High Risk Triglyceride [Mass/Vol] 171 mg/dL Work Phone: Comment on above: The drugs N-Acetylcy steine and Metamizole may falsely depress this assay.Serum Triglycerides Reference Interval Normal <150 mg/dL Borderline high 150 - 199 mg/dL High 200 - 499 mg/dL Very High > or = 500 mg/dL No Panel Informationon 11-09 Thyroid Stimulating Hormone (TSH) 10.00 uIU/mL 0.358-3.74 Work Phone: Serum or plasma cholesterol in HDL measurement (mass/volume)on 11-09-2021 Cholesterol in HDL [Mass/Vol] 40 mg/dL Work Phone: Comment on above: The drugs N-Acetylcy steine and Metamizole may falsely depress this assay. Reference Range HDL <40 mg/dL Low HDL Cholesterol HDL >or= 60 mg/dL High HDL Cholesterol Serum or plasma cholesterol in VLDL measurement (mass/volume)on 11-09-2021 Cholesterol in VLDL [Mass/Vol] 34 mg/dL 5-40 Work Phone: Serum or plasma low density lipoprotein (LDL) cholesterol measurement (mass/volume)on 11-09-2021 Cholesterol in LDL [Mass/Vol] 49 mg/dL 0-130 Work Phone: Basophil percentageon 2021 Creatinine [Mass/Vol] 1.0 mg/dL 0.55-1.[address] [facility] Work Phone: Laboratory - Chemistry and C hemistry - challengeon 11-05-2021 GFR/1.73 sq M.predicted among non-blacks MDRD (S/P/Bld) [Vol rate/Area] 56.0000 mL/min/{1.73_m2} >60 Work Phone: Vital Signs Date Time Vital Sign Value Performing Clinician Faci lity 07-08-2025 12:59-0400 Body height 167.[address] Rae Aguirre MD Work Phone: 07-08-2025 12:59-0400 Body mass index (BMI) [Ratio] 36.8 kg/m2 Dr. Rae Aguirre MD Work Phone: 07-08-2025 12:59-0400 Body temperature 98.1 [degF] Dr. Rae Aguirre MD Work Phone: 07-08-2025 12:59-0400 Body weight 103.[address] Rae Aguirre MD Work Phone: 07-08-2025 12:59-0400 Diastolic blood pressure 75 mm[Hg] Dr. Rae Aguirre MD Work Phone: 07-08-2025 12:59-0400 Heart rate 94 /min Dr. Rae Aguirre MD Work Phone: 07-08-2025 12:59-0400 Respiratory rate 16 /min Dr. Rae Aguirre MD Work Phone: 07-08-2025 12:59-0400 SaO2% (BldA) [Mass fraction] 96 % Dr. Rae Aguirre MD Work Phone: 5(918)898-929650 [place] [address] 07-08-2025 12:59-0400 Systolic blood pressure 173 mm[Hg] Dr. Rae Aguirre MD Work Phone: 3(232)617-644848 [place] [address] 06-27-2025 13:40-0400 Body mass index (BMI) [Ratio] 37.3 kg/m2 Dr. Rae Aguirre MD Work Phone: 1(303)817-001448 [place] [address] 06-27-2025 13:40-0400 Body temperature 98.2 [degF] Dr. Rae Aguirre MD Work Phone: 0(308)120-528548 [place] [address] 06-27-2025 13:40-0400 Body weight 104.[address] Rae Aguirre MD Work Phone: 5(741)238-895948 [place] [address] 06-27-2025 13:40-0400 Diastolic blood pressure 67 mm[Hg] Dr. Rae Aguirre MD Work Phone: 3(463)966-292648 [place] [address] 06-27-2025 13:40-0400 Heart rate 84 /min Dr. Rae Aguirre MD Work Phone: 5(063)242-177948 [place] [address] 06-27-2025 13:40-0400 Respiratory rate 18 /min Dr. Rae Aguirre MD Work Phone: 7(876)581-751448 [place] [address] 06-27-2025 13:40-0400 SaO2% (BldA) [Mass fraction] 96 % Dr. Rae Aguirre MD Work Phone: 4(361)383-109448 [place] [address] 06-27-2025 13:40-0400 Systolic blood pressure 145 mm[Hg] Dr. Rae Aguirre MD Work Phone: 5(576)816-161748 [place] [address] 05-30-2025 14:21-0400 Body height 167.[address] Rae Aguirre MD Work Phone: 2(016)961-775148 [place] [address] 05-30-2025 14:21-0400 Body mass index (BMI) [Ratio] 36.8 kg/m2 Dr. Rae Aguirre MD Work Phone: 1(466)516-772250 [place] [address] 05-30-2025 14:21-0400 Body temperature 98.2 [degF] Dr. Rae Aguirre MD Work Phone: 4(994)864-570848 [place] [address] 05-30-2025 14:21-0400 Body weight 103.[address] Rae Aguirre MD Work Phone: 2(738)024-475648 [place] [address] 05-30-2025 14:21-0400 Diastolic blood pressure 61 mm[Hg] Dr. Rae Aguirre MD Work Phone: 1(867)769-652648 [place] [address] 05-30-2025 14:21-0400 Heart rate 62 /min Dr. Rae Aguirre MD Work Phone: 6(182)878-190448 [place] [address] 05-30-2025 14:21-0400 Respiratory rate 16 /min Dr. Rae Aguirre MD Work Phone: 2(632)500-750548 [place] [address] 05-30-2025 14:21-0400 SaO2% (BldA) [Mass fraction] 97 % Dr. Rae Aguirre MD Work Phone: 6(093)737-006048 [place] [address] 05-30-2025 14:21-0400 Systolic blood pressure 132 mm[Hg] Dr. Rae Aguirre MD Work Phone: 5(893)589-762448 [place] [address] 05-02-2025 10:44-0400 Body height 167.[address] Rae Aguirre MD Work Phone: 6(558)529-728148 [place] [address] 05-02-2025 10:44-0400 Body mass index (BMI) [Ratio] 36.3 kg/m2 Dr. Rae Aguirre MD Work Phone: 8(362)448-208348 [place] [address] 05-02-2025 10:44-0400 Body temperature 98.2 [degF] Dr. Rae Aguirre MD Work Phone: 4(666)467-517248 [place] [address] 05-02-2025 10:44-0400 Body weight 102.[address] Rae Aguirre MD Work Phone: 05-02-2025 10:44-0400 Diastolic blood pressure 70 mm[Hg] Dr. Rae Aguirre MD Work Phone: 05-02-2025 10:44-0400 Heart rate 68 /min Dr. Rae Aguirre MD Work Phone: 05-02-2025 10:44-0400 Respiratory rate 18 /min Dr. Rae Aguirre MD Work Phone: 05-02-2025 10:44-0400 SaO2% (BldA) [Mass fraction] 93 % Dr. Rae Aguirre MD Work Phone: 05-02-2025 10:44-0400 Systolic blood pressure 131 mm[Hg] Dr. Rae Aguirre MD Work Phone: 1(618)378-966250 [place] [address] 04-04-2025 14:52-0400 Body height 167.[address] Rae Aguirre MD Work Phone: 04-04-2025 14:52-0400 Body mass index (BMI) [Ratio] 36.6 kg/m2 Dr. Rae Aguirre MD Work Phone: 04-04-2025 14:52-0400 Body temperature 97.9 [degF] Dr. Rae Aguirre MD Work Phone: 04-04-2025 14:52-0400 Body weight 103.[address] Rae Aguirre MD Work Phone: 04-04-2025 14:52-0400 Diastolic blood pressure 70 mm[Hg] Dr. Rae Aguirre MD Work Phone: 04-04-2025 14:52-0400 Heart rate 84 /min Dr. Rae Aguirre MD Work Phone: 04-04-2025 14:52-0400 Respiratory rate 18 /min Dr. Rae Aguirre MD Work Phone: 2(190)048-075450 [place] [address] 04-04-2025 14:52-0400 SaO2% (BldA) [Mass fraction] 93 % Dr. Rae Aguirre MD Work Phone: 04-04-2025 14:52-0400 Systolic blood pressure 126 mm[Hg] Dr. Rae Aguirre MD Work Phone: 5(908)078-208448 [place] [address] 03-21-2025 13:20-0400 Body height 167.[address] Rae Aguirre MD Work Phone: 9(761)562-447248 [place] [address] 03-21-2025 13:20-0400 Body mass index (BMI) [Ratio] 35.8 kg/m2 Dr. Rae Aguirre MD Work Phone: 8(972)104-869248 [place] [address] 03-21-2025 13:20-0400 Body weight 100.[address] Rae Aguirre MD Work Phone: 6(982)772-219348 [place] [address] 03-21-2025 13:20-0400 Diastolic blood pressure 79 mm[Hg] Dr. Rae Aguirre MD Work Phone: 9(365)105-839448 [place] [address] 03-21-2025 13:20-0400 Heart rate 106 /min Dr. Rae Aguirre MD Work Phone: 5(161)832-290248 [place] [address] 03-21-2025 13:20-0400 Respiratory rate 16 /min Dr. Rae Aguirre MD Work Phone: 2(912)981-000448 [place] [address] 03-21-2025 13:20-0400 SaO2% (BldA) [Mass fraction] 93 % Dr. Rae Aguirre MD Work Phone: 9(799)024-112348 [place] [address] 03-21-2025 13:20-0400 Systolic blood pressure 131 mm[Hg] Dr. Rae Aguirre MD Work Phone: 1(530)673-908548 [place] [address] 03-14-2025 11:08-0400 Body height 167.[address] Rae Aguirre MD Work Phone: 03-14-2025 11:08-0400 Body mass index (BMI) [Ratio] 36.8 kg/m2 Dr. Rae Aguirre MD Work Phone: 03-14-2025 11:08-0400 Body temperature 98.4 [degF] Dr. Rae Aguirre MD Work Phone: 03-14-2025 11:08-0400 Body weight 103.[address] Rae Aguirre MD Work Phone: 03-14-2025 11:08-0400 Diastolic blood pressure 62 mm[Hg] Dr. Rae Aguirre MD Work Phone: 1(426)157-341950 [place] [address] 03-14-2025 11:08-0400 Heart rate 94 /min Dr. Rae Aguirre MD Work Phone: 4(950)890-956250 [place] [address] 03-14-2025 11:08-0400 Respiratory rate 18 /min Dr. Rae Aguirre MD Work Phone: 03-14-2025 11:08-0400 Systolic blood pressure 127 mm[Hg] Dr. Rae Aguirre MD Work Phone: 03-14-2025 10:58-0400 Body mass index (BMI) [Ratio] 36.8 kg/m2 Dr. Rae Aguirre MD Work Phone: 03-14-2025 10:58-0400 Body temperature 98.4 [degF] Dr. Rae Aguirre MD Work Phone: 03-14-2025 10:58-0400 Diastolic blood pressure 62 mm[Hg] Dr. Rae Aguirre MD Work Phone: 03-14-2025 10:58-0400 Heart rate 94 /min Dr. Rae Aguirre MD Work Phone: 03-14-2025 10:58-0400 Respiratory rate 18 /min Dr. Rae Aguirre MD Work Phone: 03-14-2025 10:58-0400 SaO2% (BldA) [Mass fraction] 95 % Dr. Rae Aguirre MD Work Phone: 03-14-2025 10:58-0400 Systolic blood pressure 127 mm[Hg] Dr. Rae Aguirre MD Work Phone: 02-14-2025 10:43-0400 Body height 167.[address] Rae Aguirre MD Work Phone: 02-14-2025 10:43-0400 Body mass index (BMI) [Ratio] 37 kg/m2 Dr. Rae Aguirre MD Work Phone: 02-14-2025 10:43-0400 Body temperature 98.2 [degF] Dr. Rae Aguirre MD Work Phone: 02-14-2025 10:43-0400 Body weight 103.[address] Rae Aguirre MD Work Phone: 02-14-2025 10:43-0400 Diastolic blood pressure 77 mm[Hg] Dr. Rae Aguirre MD Work Phone: 02-14-2025 10:43-0400 Heart rate 84 /min Dr. Rae Aguirre MD Work Phone: 02-14-2025 10:43-0400 Respiratory rate 18 /min Dr. Rae Aguirre MD Work Phone: 02-14-2025 10:43-0400 SaO2% (BldA) [Mass fraction] 93 % Dr. Rae Aguirre MD Work Phone: 02-14-2025 10:43-0400 Systolic blood pressure 165 mm[Hg] Dr. Rae Aguirre MD Work Phone: 02-12-2025 13:40-0400 Body height 167.[address] Rae Aguirre MD Work Phone: 6(034)102-97[address] [place] [address] 02-12-2025 13:40-0400 Body mass index (BMI) [Ratio] 37.2 kg/m2 Dr. Rae Aguirre MD Work Phone: 0(909)915-817548 [place] [address] 02-12-2025 13:40-0400 Body temperature 97.1 [degF] Dr. Rae Aguirre MD Work Phone: 6(954)327-694848 [place] [address] 02-12-2025 13:40-0400 Body weight 104.[address] Rae Aguirre MD Work Phone: 4(495)059-316548 [place] [address] 02-12-2025 13:40-0400 Diastolic blood pressure 67 mm[Hg] Dr. Rae Aguirre MD Work Phone: 8(829)598-273448 [place] [address] 02-12-2025 13:40-0400 Heart rate 80 /min Dr. Rae Aguirre MD Work Phone: 7(391)904-339348 [place] [address] 02-12-2025 13:40-0400 Respiratory rate 18 /min Dr. Rae Aguirre MD Work Phone: 6(701)460-913548 [place] [address] 02-12-2025 13:40-0400 SaO2% (BldA) [Mass fraction] 96 % Dr. Rae Aguirre MD Work Phone: 2(632)760-378250 [place] [address] 02-12-2025 13:40-0400 Systolic blood pressure 114 mm[Hg] Dr. Rae Aguirre MD Work Phone: 8(655)140-585748 [place] [address] 01-24-2025 13:02-0400 Body height 167.[address] Rae Aguirre MD Work Phone: 1(426)318-367448 [place] [address] 01-24-2025 13:02-0400 Body mass index (BMI) [Ratio] 37.2 kg/m2 Dr. Rae Aguirre MD Work Phone: 4(135)587-561850 [place] [address] 01-24-2025 13:02-0400 Body temperature 97.6 [degF] Dr. Rae Aguirre MD Work Phone: 01-24-2025 13:02-0400 Body weight 104.[address] Rae Aguirre MD Work Phone: 01-24-2025 13:02-0400 Diastolic blood pressure 75 mm[Hg] Dr. Rae Aguirre MD Work Phone: 01-24-2025 13:02-0400 Heart rate 67 /min Dr. Rae Aguirre MD Work Phone: 7(275)[phone] [address] 01-24-2025 13:02-0400 Respiratory rate 16 /min Dr. Rae Aguirre MD Work Phone: 7(831)[phone] [address] 01-24-2025 13:02-0400 SaO2% (BldA) [Mass fraction] 95 % Dr. Rae Aguirre MD Work Phone: 01-24-2025 13:02-0400 Systolic blood pressure 138 mm[Hg] Dr. Rae Aguirre MD Work Phone: 01-17-2025 13:03-0400 Body mass index (BMI) [Ratio] 37.1 kg/m2 Dr. Rae Aguirre MD Work Phone: 2(475)[phone] [place] [address] 01-17-2025 13:03-0400 Body temperature 98.5 [degF] Dr. Rae Aguirre MD Work Phone: 01-17-2025 13:03-0400 Body weight 104.[address] Rae Aguirre MD Work Phone: 01-17-2025 13:03-0400 Diastolic blood pressure 74 mm[Hg] Dr. Rae Aguirre MD Work Phone: 01-17-2025 13:03-0400 Heart rate 66 /min Dr. Rae Aguirre MD Work Phone: 01-17-2025 13:03-0400 Respiratory rate 16 /min Dr. Rae Aguirre MD Work Phone: 01-17-2025 13:03-0400 SaO2% (BldA) [Mass fraction] 96 % Dr. Rae Aguirre MD Work Phone: 3(233)875-135450 [place] [address] 01-17-2025 13:03-0400 Systolic blood pressure 128 mm[Hg] Dr. Rae Aguirre MD Work Phone: 5(409)414-520550 [place] [address] 12-20-2024 10:01-0400 Body mass index (BMI) [Ratio] 37.1 kg/m2 Dr. Rae Aguirre MD Work Phone: 8(454)697-742948 [place] [address] 12-20-2024 10:01-0400 Body temperature 98.3 [degF] Dr. Rae Aguirre MD Work Phone: 6(952)135-695650 [place] [address] 12-20-2024 10:01-0400 Body weight 104.[address] Rae Aguirre MD Work Phone: 1(010)834-082964 [address] 12-20-2024 10:01-0400 Diastolic blood pressure 68 mm[Hg] Dr. Rae Aguirre MD Work Phone: 12-20-2024 10:01-0400 Heart rate 72 /min Dr. Rae Aguirre MD Work Phone: 12-20-2024 10:01-0400 Respiratory rate 18 /min Dr. Rae Aguirre MD Work Phone: 12-20-2024 10:01-0400 SaO2% (BldA) [Mass fraction] 94 % Dr. Rae Aguirre MD Work Phone: 12-20-2024 10:01-0400 Systolic blood pressure 112 mm[Hg] Dr. Rae Aguirre MD Work Phone: 5(797)545-949550 [place] [address] 11-22-2024 14:24-0400 Body height 167.[address] Rae Aguirre MD Work Phone: 11-22-2024 14:24-0400 Body mass index (BMI) [Ratio] 36.9 kg/m2 Dr. Rae Aguirre MD Work Phone: 11-22-2024 14:24-0400 Body temperature 98.1 [degF] Dr. Rae Aguirre MD Work Phone: 3(247)967-858448 [place] [address] 11-22-2024 14:24-0400 Body weight 103.[address] Rae Aguirre MD Work Phone: 5(281)622-450748 [place] [address] 11-22-2024 14:24-0400 Diastolic blood pressure 76 mm[Hg] Dr. Rae Aguirre MD Work Phone: 2(259)067-830148 [place] [address] 11-22-2024 14:24-0400 Heart rate 77 /min Dr. Rae Aguirre MD Work Phone: 9(956)878-604448 [place] [address] 11-22-2024 14:24-0400 Respiratory rate 18 /min Dr. Rae Aguirre MD Work Phone: 2(157)407-409348 [place] [address] 11-22-2024 14:24-0400 SaO2% (BldA) [Mass fraction] 93 % Dr. Rae Aguirre MD Work Phone: 9(256)577-847350 [place] [address] 11-22-2024 14:24-0400 Systolic blood pressure 152 mm[Hg] Dr. Rae Aguirre MD Work Phone: 11-05-2024 22:00-0500 Body temperature 98.2 [degF] Dr. Rae Aguirre MD Work Phone: 4(553)808-260350 [place] [address] 11-05-2024 22:00-0500 Diastolic blood pressure 57 mm[Hg] Dr. Rae Aguirre MD Work Phone: 9(173)096-776350 [place] [address] 11-05-2024 22:00-0500 Heart rate 75 /min Dr. Rae Aguirre MD Work Phone: 0(321)037-923448 [place] [address] 11-05-2024 22:00-0500 Respiratory rate 18 /min Dr. Rae Aguirre MD Work Phone: 0(006)193-271848 [place] [address] 11-05-2024 22:00-0500 SaO2% (BldA) [Mass fraction] 96 % Dr. Rae Aguirre MD Work Phone: 7(261)506-478748 [place] [address] 11-05-2024 22:00-0500 Systolic blood pressure 141 mm[Hg] Dr. Rae Aguirre MD Work Phone: 9(473)011-027348 [place] [address] 11-05-2024 18:13-0500 Body height 167.[address] Rae Aguirre MD Work Phone: 5(710)457-853548 [place] [address] 11-05-2024 18:13-0500 Body mass index (BMI) [Ratio] 35.9 kg/m2 Dr. Rae Aguirre MD Work Phone: 1(001)174-979248 [place] [address] 11-05-2024 18:13-0500 Body weight 101.[address] Rae Aguirre MD Work Phone: 5(540)769-725048 [place] [address] 10-25-2024 12:52-0500 Body mass index (BMI) [Ratio] 36.3 kg/m2 Dr. Rae Aguirre MD Work Phone: 4(693)433-237548 [place] [address] 10-25-2024 12:52-0500 Body temperature 97.6 [degF] Dr. Rae Aguirre MD Work Phone: 7(944)621-800148 [place] [address] 10-25-2024 12:52-0500 Body weight 102.[address] Rae Aguirre MD Work Phone: 3(209)437-229448 [place] [address] 10-25-2024 12:52-0500 Diastolic blood pressure 49 mm[Hg] Dr. Rae Aguirre MD Work Phone: 7(436)048-345248 [place] [address] 10-25-2024 12:52-0500 Heart rate 66 /min Dr. Rae Aguirre MD Work Phone: 0(482)428-260848 [place] [address] 10-25-2024 12:52-0500 Respiratory rate 16 /min Dr. Rae Aguirre MD Work Phone: 10-25-2024 12:52-0500 SaO2% (BldA) [Mass fraction] 96 % Dr. Rae Aguirre MD Work Phone: 10-25-2024 12:52-0500 Systolic blood pressure 105 mm[Hg] Dr. Rae Aguirre MD Work Phone: 2(613)389-883350 [place] [address] 10-18-2024 12:49-0500 Body mass index (BMI) [Ratio] 36.6 kg/m2 Dr. Rae Aguirre MD Work Phone: 5(195)313-733248 [place] [address] 10-18-2024 12:49-0500 Body temperature 97.6 [degF] Dr. Rae Aguirre MD Work Phone: 7(956)370-391648 [place] [address] 10-18-2024 12:49-0500 Body weight 102.[address] Rae Aguirre MD Work Phone: 7(581)954-623050 [place] [address] 10-18-2024 12:49-0500 Diastolic blood pressure 81 mm[Hg] Dr. Rae Aguirre MD Work Phone: 6(179)541-141748 [place] [address] 10-18-2024 12:49-0500 Heart rate 61 /min Dr. Rae Aguirre MD Work Phone: 3(518)785-641150 [place] [address] 10-18-2024 12:49-0500 Respiratory rate 16 /min Dr. Rae Aguirre MD Work Phone: 3(501)363-067448 [place] [address] 10-18-2024 12:49-0500 SaO2% (BldA) [Mass fraction] 94 % Dr. Rae Aguirre MD Work Phone: 8(693)835-166550 [place] [address] 10-18-2024 12:49-0500 Systolic blood pressure 129 mm[Hg] Dr. Rae Aguirre MD Work Phone: 8(244)031-146764 [address] 09-20-2024 13:40-0500 Body mass index (BMI) [Ratio] 36.5 kg/m2 Dr. Rae Aguirre MD Work Phone: 09-20-2024 13:40-0500 Body temperature 98.3 [degF] Dr. Rae Aguirre MD Work Phone: 09-20-2024 13:40-0500 Body weight 102.[address] Rae Aguirre MD Work Phone: 09-20-2024 13:40-0500 Diastolic blood pressure 82 mm[Hg] Dr. Rae Aguirre MD Work Phone: 09-20-2024 13:40-0500 Heart rate 84 /min Dr. Rae Aguirre MD Work Phone: 9(975)067-679364 [address] 09-20-2024 13:40-0500 Respiratory rate 18 /min Dr. Rae Aguirre MD Work Phone: 5(610)756-859450 [place] [address] 09-20-2024 13:40-0500 SaO2% (BldA) [Mass fraction] 97 % Dr. Rae Aguirre MD Work Phone: 09-20-2024 13:40-0500 Systolic blood pressure 138 mm[Hg] Dr. Rae Aguirre MD Work Phone: 08-23-2024 09:59-0500 Body mass index (BMI) [Ratio] 36.6 kg/m2 Dr. Rae Aguirre MD Work Phone: 08-23-2024 09:59-0500 Body temperature 98.8 [degF] Dr. Rae Aguirre MD Work Phone: 08-23-2024 09:59-0500 Body weight 102.[address] Rae Aguirre MD Work Phone: 08-23-2024 09:59-0500 Diastolic blood pressure 71 mm[Hg] Dr. Rae Aguirre MD Work Phone: 08-23-2024 09:59-0500 Heart rate 80 /min Dr. Rae Aguirre MD Work Phone: 08-23-2024 09:59-0500 Respiratory rate 18 /min Dr. Rae Aguirre MD Work Phone: 08-23-2024 09:59-0500 SaO2% (BldA) [Mass fraction] 94 % Dr. Rae Aguirre MD Work Phone: 08-23-2024 09:59-0500 Systolic blood pressure 119 mm[Hg] Dr. Rae Aguirre MD Work Phone: 07-26-2024 13:33-0500 Body mass index (BMI) [Ratio] 36.3 kg/m2 Dr. Rae Aguirre MD Work Phone: 07-26-2024 13:33-0500 Body temperature 98.3 [degF] Dr. Rae Aguirre MD Work Phone: 07-26-2024 13:33-0500 Body weight 102.[address] Rae Aguirre MD Work Phone: 07-26-2024 13:33-0500 Diastolic blood pressure 64 mm[Hg] Dr. Rae Aguirre MD Work Phone: 07-26-2024 13:33-0500 Heart rate 69 /min Dr. Rae Aguirre MD Work Phone: 07-26-2024 13:33-0500 Respiratory rate 18 /min Dr. Rae Aguirre MD Work Phone: 07-26-2024 13:33-0500 SaO2% (BldA) [Mass fraction] 95 % Dr. Rae Aguirre MD Work Phone: 07-26-2024 13:33-0500 Systolic blood pressure 123 mm[Hg] Dr. Rae Aguirre MD Work Phone: 11-29-2023 13:49-0400 Body height 167.[address] Adolfo Aguirre Work Phone: 11-29-2023 13:49-0400 Body mass index (BMI) [Ratio] 36.5 kg/m2 Dr. Adolfo Aguirre Work Phone: 11-29-2023 13:49-0400 Body temperature 98 [degF] Dr. Adolfo Aguirre Work Phone: 11-29-2023 13:49-0400 Body weight 102.[address] Adolfo Aguirre Work Phone: 11-29-2023 13:49-0400 Diastolic blood pressure 68 mm[Hg] Dr. Adolfo Aguirre Work Phone: 11-29-2023 13:49-0400 Heart rate 70 /min Dr. Adolfo Aguirre Work Phone: 11-29-2023 13:49-0400 Respiratory rate 18 /min Dr. Adolfo Aguirre Work Phone: 11-29-2023 13:49-0400 SaO2% (BldA) [Mass fraction] 93 % Dr. Adolfo Aguirre Work Phone: 11-29-2023 13:49-0400 Systolic blood pressure 117 mm[Hg] Dr. Adolfo Aguirre Work Phone: 10-25-2023 12:01-0500 Body mass index (BMI) [Ratio] 36.4 kg/m2 Dr. Adolfo Aguirre Work Phone: 10-25-2023 12:01-0500 Body temperature 98.2 [degF] Dr. Adolfo Aguirre Work Phone: 10-25-2023 12:01-0500 Body weight 102.[address] Adolfo Aguirre Work Phone: 10-25-2023 12:01-0500 Diastolic blood pressure 79 mm[Hg] Dr. Adolfo Aguirre Work Phone: 10-25-2023 12:01-0500 Heart rate 78 /min Dr. Adolfo Aguirre Work Phone: 10-25-2023 12:01-0500 Respiratory rate 18 /min Dr. Adolfo Aguirre Work Phone: 10-25-2023 12:01-0500 SaO2% (BldA) [Mass fraction] 95 % Dr. Adolfo Aguirre Work Phone: 10-25-2023 12:01-0500 Systolic blood pressure 150 mm[Hg] Dr. Adolfo Aguirre Work Phone: 09-27-2023 11:26-0500 Body mass index (BMI) [Ratio] 37.2 kg/m2 Dr. Adolfo Aguirre Work Phone: 9(535)540-219450 [place] [address] 09-27-2023 11:26-0500 Body temperature 98.2 [degF] Dr. Adolfo Aguirre Work Phone: 09-27-2023 11:26-0500 Body weight 104.[address] Adolfo Aguirre Work Phone: 09-27-2023 11:26-0500 Diastolic blood pressure 70 mm[Hg] Dr. Adolfo Aguirre Work Phone: 09-27-2023 11:26-0500 Heart rate 72 /min Dr. Adolfo Aguirre Work Phone: 09-27-2023 11:26-0500 Respiratory rate 18 /min Dr. Adolfo Aguirre Work Phone: 09-27-2023 11:26-0500 SaO2% (BldA) [Mass fraction] 93 % Dr. Adolfo Aguirre Work Phone: 09-27-2023 11:26-0500 Systolic blood pressure 111 mm[Hg] Dr. Adolfo Aguirre Work Phone: 08-30-2023 12:56-0500 Body mass index (BMI) [Ratio] 36.8 kg/m2 Dr. Adolfo Aguirre Work Phone: 9(108)556-176364 [address] 08-30-2023 12:56-0500 Body temperature 97.8 [degF] Dr. Adolfo Aguirre Work Phone: 8(450)388-215364 [address] 08-30-2023 12:56-0500 Body weight 103.[address] Adolfo Aguirre Work Phone: 2(800)510-506264 [address] 08-30-2023 12:56-0500 Diastolic blood pressure 98 mm[Hg] Dr. Adolfo Aguirre Work Phone: 5(507)522-016850 [place] [address] 08-30-2023 12:56-0500 Heart rate 79 /min Dr. Adolfo Aguirre Work Phone: 7(045)795-901464 [address] 08-30-2023 12:56-0500 Respiratory rate 18 /min Dr. Adolfo Aguirre Work Phone: 9(893)267-465464 [address] 08-30-2023 12:56-0500 SaO2% (BldA) [Mass fraction] 95 % Dr. Adolfo Aguirre Work Phone: 08-30-2023 12:56-0500 Systolic blood pressure 150 mm[Hg] Dr. Adolfo Aguirre Work Phone: 8(869)174-592050 [place] [address] 07-05-2023 10:27-0400 Body height 167.[address] Adolfo Aguirre Work Phone: 07-05-2023 10:27-0400 Body mass index (BMI) [Ratio] 36.8 kg/m2 Dr. Adolfo Aguirre Work Phone: 8(131)157-228750 [place] [address] 07-05-2023 10:27-0400 Body temperature 98.2 [degF] Dr. Adolfo Aguirre Work Phone: 07-05-2023 10:27-0400 Body weight 103.[address] Adolfo Aguirre Work Phone: 07-05-2023 10:27-0400 Diastolic blood pressure 65 mm[Hg] Dr. Adolfo Aguirre Work Phone: 07-05-2023 10:27-0400 Heart rate 71 /min Dr. Adolfo Aguirre Work Phone: 3(655)255-284648 [place] [address] 07-05-2023 10:27-0400 Respiratory rate 18 /min Dr. Adolfo Aguirre Work Phone: 5(135)628-116164 [address] 07-05-2023 10:27-0400 SaO2% (BldA) [Mass fraction] 95 % Dr. Adolfo Aguirre Work Phone: 07-05-2023 10:27-0400 Systolic blood pressure 105 mm[Hg] Dr. Adolfo Aguirre Work Phone: 1(950)160-347450 [place] [address] 07-05-2023 10:03-0400 Body mass index (BMI) [Ratio] 36.8 kg/m2 Dr. Adolfo Aguirre Work Phone: 0(499)104-984250 [place] [address] 07-05-2023 10:03-0400 Body temperature 98.2 [degF] Dr. Adolfo Aguirre Work Phone: 07-05-2023 10:03-0400 Body weight 103.[address] Adolfo Aguirre Work Phone: 07-05-2023 10:03-0400 Diastolic blood pressure 65 mm[Hg] Dr. Adolfo Aguirre Work Phone: 07-05-2023 10:03-0400 Heart rate 71 /min Dr. Adolfo Aguirre Work Phone: 07-05-2023 10:03-0400 Respiratory rate 18 /min Dr. Adolfo Aguirre Work Phone: 07-05-2023 10:03-0400 SaO2% (BldA) [Mass fraction] 95 % Dr. Adolfo Aguirre Work Phone: 07-05-2023 10:03-0400 Systolic blood pressure 105 mm[Hg] Dr. Adolfo Aguirre Work Phone: 2(063)187-633950 [place] [address] 06-28-2023 13:24-0400 Body mass index (BMI) [Ratio] 36.7 kg/m2 Dr. Adolfo Aguirre Work Phone: 8(679)323-304248 [place] [address] 06-28-2023 13:24-0400 Body temperature 98.3 [degF] Dr. Adolfo Aguirre Work Phone: 5(558)679-898748 [place] [address] 06-28-2023 13:24-0400 Body weight 103.[address] Adolfo Aguirre Work Phone: 5(060)804-413950 [place] [address] 06-28-2023 13:24-0400 Diastolic blood pressure 67 mm[Hg] Dr. Adolfo Aguirre Work Phone: 9(300)717-378950 [place] [address] 06-28-2023 13:24-0400 Heart rate 69 /min Dr. Adolfo Aguirre Work Phone: 8(511)258-541850 [place] [address] 06-28-2023 13:24-0400 Respiratory rate 18 /min Dr. Adolfo Aguirre Work Phone: 3(368)650-242550 [place] [address] 06-28-2023 13:24-0400 SaO2% (BldA) [Mass fraction] 94 % Dr. Adolfo Aguirre Work Phone: 06-28-2023 13:24-0400 Systolic blood pressure 114 mm[Hg] Dr. Adolfo Aguirre Work Phone: 6(857)532-814064 [address] 05-31-2023 13:27-0400 Body height 167.[address] Adolfo Aguirre Work Phone: 05-31-2023 13:27-0400 Body mass index (BMI) [Ratio] 36.8 kg/m2 Dr. Adolfo Aguirre Work Phone: 05-31-2023 13:27-0400 Body temperature 98.2 [degF] Dr. Adolfo Aguirre Work Phone: 05-31-2023 13:27-0400 Body weight 103.[address] Adolfo Aguirre Work Phone: 05-31-2023 13:27-0400 Diastolic blood pressure 62 mm[Hg] Dr. Adolfo Aguirre Work Phone: 05-31-2023 13:27-0400 Heart rate 62 /min Dr. Adolfo Aguirre Work Phone: 05-31-2023 13:27-0400 Respiratory rate 15 /min Dr. Adolfo Aguirre Work Phone: 05-31-2023 13:27-0400 SaO2% (BldA) [Mass fraction] 95 % Dr. Adolfo Aguirre Work Phone: 05-31-2023 13:27-0400 Systolic blood pressure 105 mm[Hg] Dr. Adolfo Aguirre Work Phone: 05-03-2023 10:47-0400 Body mass index (BMI) [Ratio] 39 kg/m2 Dr. Adolfo Aguirre Work Phone: 05-03-2023 10:47-0400 Body temperature 97.3 [degF] Dr. Adolfo Aguirre Work Phone: 05-03-2023 10:47-0400 Body weight 109.[address] Adolfo Aguirre Work Phone: 05-03-2023 10:47-0400 Diastolic blood pressure 62 mm[Hg] Dr. Adolfo Aguirre Work Phone: 05-03-2023 10:47-0400 Heart rate 63 /min Dr. Adolfo Aguirre Work Phone: 05-03-2023 10:47-0400 Respiratory rate 16 /min Dr. Adolfo Aguirre Work Phone: 05-03-2023 10:47-0400 SaO2% (BldA) [Mass fraction] 97 % Dr. Adolfo Aguirre Work Phone: 05-03-2023 10:47-0400 Systolic blood pressure 110 mm[Hg] Dr. Adolfo Aguirre Work Phone: 7(662)497-265750 [place] [address] 04-05-2023 14:53-0400 Body mass index (BMI) [Ratio] 37.4 kg/m2 Dr. Adolfo Aguirre Work Phone: 04-05-2023 14:53-0400 Body temperature 97.2 [degF] Dr. Adolfo Aguirre Work Phone: 04-05-2023 14:53-0400 Body weight 105.[address] Adolfo Aguirre Work Phone: 04-05-2023 14:53-0400 Diastolic blood pressure 72 mm[Hg] Dr. Adolfo Aguirre Work Phone: 04-05-2023 14:53-0400 Heart rate 71 /min Dr. Adolfo Aguirre Work Phone: 04-05-2023 14:53-0400 Respiratory rate 16 /min Dr. Adolfo Aguirre Work Phone: 04-05-2023 14:53-0400 SaO2% (BldA) [Mass fraction] 93 % Dr. Adolfo Aguirre Work Phone: 04-05-2023 14:53-0400 Systolic blood pressure 114 mm[Hg] Dr. Adolfo Aguirre Work Phone: 03-08-2023 15:06-0400 Body mass index (BMI) [Ratio] 38.5 kg/m2 Dr. Adolfo Aguirre Work Phone: 03-08-2023 15:06-0400 Body temperature 97.3 [degF] Dr. Adolfo Aguirre Work Phone: 03-08-2023 15:06-0400 Body weight 108.[address] Adolfo Aguirre Work Phone: 03-08-2023 15:06-0400 Diastolic blood pressure 71 mm[Hg] Dr. Adolfo Aguirre Work Phone: 03-08-2023 15:06-0400 Heart rate 80 /min Dr. Adolfo Aguirre Work Phone: 03-08-2023 15:06-0400 Respiratory rate 18 /min Dr. Adolfo Aguirre Work Phone: 03-08-2023 15:06-0400 SaO2% (BldA) [Mass fraction] 95 % Dr. Adolfo Aguirre Work Phone: 03-08-2023 15:06-0400 Systolic blood pressure 139 mm[Hg] Dr. Adolfo Aguirre Work Phone: 02-09-2023 13:26-0400 Body mass index (BMI) [Ratio] 37.3 kg/m2 Dr. Adolfo Aguirre Work Phone: 02-09-2023 13:26-0400 Body temperature 97 [degF] Dr. Adolfo Aguirre Work Phone: 02-09-2023 13:26-0400 Body weight 104.[address] Adolfo Aguirre Work Phone: 02-09-2023 13:26-0400 Diastolic blood pressure 76 mm[Hg] Dr. Adolfo Aguirre Work Phone: 02-09-2023 13:26-0400 Heart rate 74 /min Dr. Adolfo Aguirre Work Phone: 02-09-2023 13:26-0400 Respiratory rate 16 /min Dr. Adolfo Aguirre Work Phone: 02-09-2023 13:26-0400 SaO2% (BldA) [Mass fraction] 95 % Dr. Adolfo Aguirre Work Phone: 02-09-2023 13:26-0400 Systolic blood pressure 123 mm[Hg] Dr. Adolfo Aguirre Work Phone: 01-11-2023 10:54-0400 Body mass index (BMI) [Ratio] 37.9 kg/m2 Dr. Adolfo Aguirre Work Phone: 11-30-2022 10:44-0400 Body height 167.[address] Adolfo Aguirre Work Phone: 11-30-2022 10:39-0400 Body mass index (BMI) [Ratio] 38 kg/m2 Dr. Adolfo Aguirre Work Phone: 11-30-2022 10:39-0400 Body temperature 98.3 [degF] Dr. Adolfo Aguirre Work Phone: 11-30-2022 10:39-0400 Body weight 107.[address] Adolfo Aguirre Work Phone: 11-30-2022 10:39-0400 Diastolic blood pressure 55 mm[Hg] Dr. Adolfo Aguirre Work Phone: 11-30-2022 10:39-0400 Heart rate 83 /min Dr. Adolfo Aguirre Work Phone: 11-30-2022 10:39-0400 Respiratory rate 17 /min Dr. Adolfo Aguirre Work Phone: 11-30-2022 10:39-0400 SaO2% (BldA) [Mass fraction] 94 % Dr. Adolfo Aguirre Work Phone: 11-30-2022 10:39-0400 Systolic blood pressure 110 mm[Hg] Dr. Adolfo Aguirre Work Phone: 11-02-2022 10:58-0500 Body mass index (BMI) [Ratio] 36.8 kg/m2 Dr. Adolfo Aguirre Work Phone: 11-02-2022 10:58-0500 Body temperature 98.6 [degF] Dr. Adolfo Aguirre Work Phone: 11-02-2022 10:58-0500 Body weight 103.[address] Adolfo Aguirre Work Phone: 11-02-2022 10:58-0500 Diastolic blood pressure 61 mm[Hg] Dr. Adolfo Aguirre Work Phone: 11-02-2022 10:58-0500 Heart rate 77 /min Dr. Adolfo Aguirre Work Phone: 11-02-2022 10:58-0500 Respiratory rate 17 /min Dr. Adolfo Aguirre Work Phone: 11-02-2022 10:58-0500 SaO2% (BldA) [Mass fraction] 94 % Dr. Adolfo Aguirre Work Phone: 11-02-2022 10:58-0500 Systolic blood pressure 117 mm[Hg] Dr. Adolfo Aguirre Work Phone: 10-26-2022 10:34-0500 Body mass index (BMI) [Ratio] 37.3 kg/m2 Dr. Adolfo Aguirre Work Phone: 10-26-2022 10:34-0500 Body weight 104.[address] Adolfo Aguirre Work Phone: 10-26-2022 10:23-0500 Body mass index (BMI) [Ratio] 37.3 kg/m2 Dr. Adolfo Aguirre Work Phone: 10-26-2022 10:23-0500 Body temperature 98.7 [degF] Dr. Adolfo Aguirre Work Phone: 10-26-2022 10:23-0500 Body weight 104.[address] Adolfo Aguirre Work Phone: 10-26-2022 10:23-0500 Diastolic blood pressure 62 mm[Hg] Dr. Adolfo Aguirre Work Phone: 10-26-2022 10:23-0500 Heart rate 72 /min Dr. Adolfo Aguirre Work Phone: 10-26-2022 10:23-0500 Respiratory rate 17 /min Dr. Aodlfo Aguirre Work Phone: 10-26-2022 10:23-0500 SaO2% (BldA) [Mass fraction] 96 % Dr. Adolfo Aguirre Work Phone: 10-26-2022 10:23-0500 Systolic blood pressure 112 mm[Hg] Dr. Adolfo Aguirre Work Phone: 09-28-2022 10:19-0500 Body mass index (BMI) [Ratio] 0.4 kg/m2 Dr. Adolfo Aguirre Work Phone: 09-28-2022 10:19-0500 Body temperature 98.6 [degF] Dr. Adolfo Aguirre Work Phone: 09-28-2022 10:19-0500 Body weight 105.[address] Adolfo Aguirre Work Phone: 09-28-2022 10:19-0500 Diastolic blood pressure 63 mm[Hg] Dr. Adolfo Aguirre Work Phone: 09-28-2022 10:19-0500 Heart rate 73 /min Dr. Adolfo Aguirre Work Phone: 09-28-2022 10:19-0500 Respiratory rate 16 /min Dr. Adolfo Aguirre Work Phone: 09-28-2022 10:19-0500 SaO2% (BldA) [Mass fraction] 94 % Dr. Adolfo Aguirre Work Phone: 09-28-2022 10:19-0500 Systolic blood pressure 114 mm[Hg] Dr. Adolfo Aguirre Work Phone: 08-31-2022 09:56-0500 Body height 167.[address] Adolfo Aguirre Work Phone: Work Phone: 08-31-2022 09:56-0500 Body mass index (BMI) [Ratio] 37.4 kg/m2 Dr. Adolfo Aguirre Work Phone: Work Phone: 08-31-2022 09:56-0500 Body weight 105.[address] Adolfo Aguirre Work Phone: Work Phone: 08-31-2022 09:08-0500 Body mass index (BMI) [Ratio] 37.4 kg/m2 Dr. Adolfo Aguirre Work Phone: 08-31-2022 09:08-0500 Body temperature 98.1 [degF] Dr. Adolfo Aguirre Work Phone: 08-31-2022 09:08-0500 Body weight 105.[address] Adolfo Aguirre Work Phone: 08-31-2022 09:08-0500 Diastolic blood pressure 82 mm[Hg] Dr. Adolfo Aguirre Work Phone: 08-31-2022 09:08-0500 Heart rate 66 /min Dr. Adolfo Aguirre Work Phone: 08-31-2022 09:08-0500 Respiratory rate 16 /min Dr. Adolfo Aguirre Work Phone: 08-31-2022 09:08-0500 SaO2% (BldA) [Mass fraction] 97 % Dr. Adolfo Aguirre Work Phone: 08-31-2022 09:08-0500 Systolic blood pressure 158 mm[Hg] Dr. Adolfo Aguirre Work Phone: 08-03-2022 09:51-0500 Body mass index (BMI) [Ratio] 37.8 kg/m2 Dr. Adolfo Aguirre Work Phone: Work Phone: 08-03-2022 09:51-0500 Body temperature 98.2 [degF] Dr. Adolfo Aguirre Work Phone: Work Phone: 08-03-2022 09:51-0500 Body weight 106.[address] Adolfo Aguirre Work Phone: Work Phone: 08-03-2022 09:51-0500 Diastolic blood pressure 66 mm[Hg] Dr. Adolfo Aguirre Work Phone: Work Phone: 08-03-2022 09:51-0500 Heart rate 70 /min Dr. Adolfo Aguirre Work Phone: Work Phone: 08-03-2022 09:51-0500 Respiratory rate 16 /min Dr. Adolfo Aguirre Work Phone: Work Phone: 08-03-2022 09:51-0500 SaO2% (BldA) [Mass fraction] 93 % Dr. Adolfo Aguirre Work Phone: Work Phone: 08-03-2022 09:51-0500 Systolic blood pressure 119 mm[Hg] Dr. Adolfo Aguirre Work Phone: Work Phone: 07-05-2022 10:10-0400 Body mass index (BMI) [Ratio] 38.7 kg/m2 Dr. Adolfo Aguirre Work Phone: Work Phone: 07-05-2022 10:10-0400 Body temperature 97.6 [degF] Dr. Adolfo Aguirre Work Phone: Work Phone: 07-05-2022 10:10-0400 Body weight 109.[address] Adolfo Aguirre Work Phone: Work Phone: 07-05-2022 10:10-0400 Diastolic blood pressure 67 mm[Hg] Dr. Adolfo Aguirre Work Phone: Work Phone: 07-05-2022 10:10-0400 Heart rate 70 /min Dr. Adolfo Aguirre Work Phone: Work Phone: 07-05-2022 10:10-0400 Respiratory rate 16 /min Dr. Adolfo Aguirre Work Phone: Work Phone: 07-05-2022 10:10-0400 SaO2% (BldA) [Mass fraction] 95 % Dr. Adolfo Aguirre Work Phone: Work Phone: 07-05-2022 10:10-0400 Systolic blood pressure 140 mm[Hg] Dr. Adolfo Aguirre Work Phone: Work Phone: 06-07-2022 08:47-0400 Body mass index (BMI) [Ratio] 38.9 kg/m2 Dr. Adolfo Aguirre Work Phone: Work Phone: 06-07-2022 08:47-0400 Body temperature 98.6 [degF] Dr. Adolfo Aguirre Work Phone: Work Phone: 06-07-2022 08:47-0400 Body weight 109.[address] Adolfo Aguirre Work Phone: Work Phone: 06-07-2022 08:47-0400 Diastolic blood pressure 63 mm[Hg] Dr. Adolfo Aguirre Work Phone: Work Phone: 06-07-2022 08:47-0400 Heart rate 71 /min Dr. Adolfo Aguirre Work Phone: Work Phone: 06-07-2022 08:47-0400 Respiratory rate 16 /min Dr. Adolfo Aguirre Work Phone: Work Phone: 06-07-2022 08:47-0400 SaO2% (BldA) [Mass fraction] 95 % Dr. Adolfo Aguirre Work Phone: Work Phone: 06-07-2022 08:47-0400 Systolic blood pressure 123 mm[Hg] Dr. Adolfo Aguirre Work Phone: Work Phone: 05-31-2022 10:31-0400 Body mass index (BMI) [Ratio] 38.5 kg/m2 Dr. Adolfo Aguirre Work Phone: Work Phone: 05-31-2022 10:31-0400 Body temperature 98.2 [degF] Dr. Adolfo Aguirre Work Phone: Work Phone: 05-31-2022 10:31-0400 Body weight 108.[address] Adolfo Aguirre Work Phone: Work Phone: 05-31-2022 10:31-0400 Diastolic blood pressure 75 mm[Hg] Dr. Adolfo Aguirre Work Phone: Work Phone: 05-31-2022 10:31-0400 Heart rate 77 /min Dr. Adolfo Aguirre Work Phone: Work Phone: 05-31-2022 10:31-0400 Respiratory rate 16 /min Dr. Adolfo Aguirre Work Phone: Work Phone: 05-31-2022 10:31-0400 SaO2% (BldA) [Mass fraction] 94 % Dr. Adolfo Aguirre Work Phone: Work Phone: 05-31-2022 10:31-0400 Systolic blood pressure 151 mm[Hg] Dr. Adolfo Aguirre Work Phone: Work Phone: 04-26-2022 15:02-0400 Body height 167.[address] Adolfo Aguirre Work Phone: Work Phone: 04-26-2022 15:02-0400 Body mass index (BMI) [Ratio] 37.8 kg/m2 Dr. Adolfo Aguirre Work Phone: Work Phone: 04-26-2022 15:02-0400 Body temperature 98.8 [degF] Dr. Adolfo Aguirre Work Phone: Work Phone: 04-26-2022 15:02-0400 Body weight 106.[address] Adolfo Aguirre Work Phone: Work Phone: 04-26-2022 15:02-0400 Diastolic blood pressure 80 mm[Hg] Dr. Adolfo Aguirre Work Phone: Work Phone: 04-26-2022 15:02-0400 Heart rate 73 /min Dr. Adolfo Aguirre Work Phone: Work Phone: 04-26-2022 15:02-0400 Respiratory rate 16 /min Dr. Adolfo Aguirre Work Phone: Work Phone: 04-26-2022 15:02-0400 SaO2% (BldA) [Mass fraction] 95 % Dr. Adolfo Aguirre Work Phone: Work Phone: 04-26-2022 15:02-0400 Systolic blood pressure 133 mm[Hg] Dr. Adolfo Aguirre Work Phone: Work Phone: 04-19-2022 11:31-0400 Body mass index (BMI) [Ratio] 37.3 kg/m2 Dr. Adolfo Aguirre Work Phone: Work Phone: 04-19-2022 11:31-0400 Body temperature 98.3 [degF] Dr. Adolfo Aguirre Work Phone: Work Phone: 04-19-2022 11:31-0400 Body weight 105.[address] Adolfo Aguirre Work Phone: Work Phone: 04-19-2022 11:31-0400 Diastolic blood pressure 70 mm[Hg] Dr. Adolfo Aguirre Work Phone: Work Phone: 04-19-2022 11:31-0400 Heart rate 70 /min Dr. Adolfo Aguirre Work Phone: Work Phone: 04-19-2022 11:31-0400 Respiratory rate 15 /min Dr. Adolfo Aguirre Work Phone: Work Phone: 04-19-2022 11:31-0400 SaO2% (BldA) [Mass fraction] 95 % Dr. Adolfo Aguirre Work Phone: Work Phone: 04-19-2022 11:31-0400 Systolic blood pressure 174 mm[Hg] Dr. Adolfo Aguirre Work Phone: Work Phone: 03-23-2022 13:17-0400 Body mass index (BMI) [Ratio] 37.5 kg/m2 Dr. Adolfo Aguirre Work Phone: Work Phone: 03-23-2022 13:17-0400 Body temperature 98.3 [degF] Dr. Adolfo Aguirre Work Phone: Work Phone: 03-23-2022 13:17-0400 Body weight 105.[address] Adolfo Aguirre Work Phone: Work Phone: 03-23-2022 13:17-0400 Diastolic blood pressure 71 mm[Hg] Dr. Adolfo Aguirre Work Phone: Work Phone: 03-23-2022 13:17-0400 Heart rate 71 /min Dr. Adolfo Aguirre Work Phone: Work Phone: 03-23-2022 13:17-0400 Respiratory rate 18 /min Dr. Adolfo Aguirre Work Phone: Work Phone: 03-23-2022 13:17-0400 SaO2% (BldA) [Mass fraction] 93 % Dr. Adolfo Aguirre Work Phone: Work Phone: 03-23-2022 13:17-0400 Systolic blood pressure 111 mm[Hg] Dr. Adolfo Aguirre Work Phone: Work Phone: 03-16-2022 16:06-0400 Body mass index (BMI) [Ratio] 37.4 kg/m2 Dr. Adolfo Aguirre Work Phone: Work Phone: 03-16-2022 16:06-0400 Body temperature 98.2 [degF] Dr. Adolfo Aguirre Work Phone: Work Phone: 03-16-2022 16:06-0400 Body weight 105.[address] Adolfo Aguirre Work Phone: Work Phone: 03-16-2022 16:06-0400 Diastolic blood pressure 78 mm[Hg] Dr. Adolfo Aguirre Work Phone: Work Phone: 03-16-2022 16:06-0400 Heart rate 68 /min Dr. Adolfo Aguirre Work Phone: Work Phone: 03-16-2022 16:06-0400 Respiratory rate 15 /min Dr. Adolfo Aguirre Work Phone: Work Phone: 03-16-2022 16:06-0400 SaO2% (BldA) [Mass fraction] 96 % Dr. Adolfo Aguirre Work Phone: Work Phone: 03-16-2022 16:06-0400 Systolic blood pressure 162 mm[Hg] Dr. Adolfo Aguirre Work Phone: Work Phone: 03-01-2022 15:47-0400 Body mass index (BMI) [Ratio] 37.5 kg/m2 Dr. Adolfo Aguirre Work Phone: Work Phone: 03-01-2022 15:47-0400 Body temperature 96.7 [degF] Dr. Adolfo Aguirre Work Phone: Work Phone: 03-01-2022 15:47-0400 Body weight 106.[address] Adolfo Aguirre Work Phone: Work Phone: 03-01-2022 15:47-0400 Diastolic blood pressure 68 mm[Hg] Dr. Adolfo Aguirre Work Phone: Work Phone: 03-01-2022 15:47-0400 Heart rate 64 /min Dr. Adolfo Aguirre Work Phone: Work Phone: 03-01-2022 15:47-0400 Respiratory rate 18 /min Dr. Adolfo Aguirre Work Phone: Work Phone: 03-01-2022 15:47-0400 SaO2% (BldA) [Mass fraction] 94 % Dr. Adolfo Aguirre Work Phone: Work Phone: 03-01-2022 15:47-0400 Systolic blood pressure 115 mm[Hg] Dr. Adolfo Aguirre Work Phone: Work Phone: 02-15-2022 11:19-0400 Body mass index (BMI) [Ratio] 37.6 kg/m2 Dr. Adolfo Aguirre Work Phone: Work Phone: 02-15-2022 11:19-0400 Body temperature 98.3 [degF] Dr. Adolfo Aguirre Work Phone: Work Phone: 02-15-2022 11:19-0400 Body weight 106.[address] Adolfo Aguirre Work Phone: Work Phone: 02-15-2022 11:19-0400 Diastolic blood pressure 70 mm[Hg] Dr. Adolfo Aguirre Work Phone: Work Phone: 02-15-2022 11:19-0400 Heart rate 70 /min Dr. Adolfo Aguirre Work Phone: Work Phone: 02-15-2022 11:19-0400 Respiratory rate 15 /min Dr. Adolfo Aguirre Work Phone: Work Phone: 02-15-2022 11:19-0400 SaO2% (BldA) [Mass fraction] 93 % Dr. Adolfo Aguirre Work Phone: Work Phone: 02-15-2022 11:19-0400 Systolic blood pressure 151 mm[Hg] Dr. Adolfo Aguirre Work Phone: Work Phone: 02-09-2022 13:41-0400 Body mass index (BMI) [Ratio] 37.3 kg/m2 Dr. Adolfo Aguirre Work Phone: Work Phone: 02-09-2022 13:41-0400 Body temperature 98.4 [degF] Dr. Adolfo Aguirre Work Phone: Work Phone: 02-09-2022 13:41-0400 Body weight 105.[address] Adolfo Aguirre Work Phone: Work Phone: 02-09-2022 13:41-0400 Diastolic blood pressure 76 mm[Hg] Dr. Adolfo Aguirre Work Phone: Work Phone: 02-09-2022 13:41-0400 Heart rate 77 /min Dr. Adolfo Aguirre Work Phone: Work Phone: 02-09-2022 13:41-0400 Respiratory rate 15 /min Dr. Adolfo Aguirre Work Phone: Work Phone: 02-09-2022 13:41-0400 SaO2% (BldA) [Mass fraction] 93 % Dr. Adolfo Aguirre Work Phone: Work Phone: 02-09-2022 13:41-0400 Systolic blood pressure 157 mm[Hg] Dr. Adolfo Aguirre Work Phone: Work Phone: 01-25-2022 14:50-0400 Body temperature 98.1 [degF] Dr. Adolfo Aguirre Work Phone: 01-25-2022 14:50-0400 Diastolic blood pressure 68 mm[Hg] Dr. Adolfo Aguirre Work Phone: 01-25-2022 14:50-0400 Heart rate 74 /min Dr. Adolfo Aguirre Work Phone: 01-25-2022 14:50-0400 Respiratory rate 16 /min Dr. Adolfo Aguirre Work Phone: 01-25-2022 14:50-0400 SaO2% (BldA) [Mass fraction] 98 % Dr. Adolfo Aguirre Work Phone: 01-25-2022 14:50-0400 Systolic blood pressure 150 mm[Hg] Dr. Adolfo Aguirre Work Phone: 01-25-2022 13:42-0400 Body mass index (BMI) [Ratio] 37.6 kg/m2 Dr. Adolfo Aguirre Work Phone: Work Phone: 01-25-2022 13:42-0400 Body weight 105.[address] Adolfo gAuirre Work Phone: Work Phone: 01-25-2022 12:57-0400 Body mass index (BMI) [Ratio] 37.5 kg/m2 Dr. Adolfo Aguirre Work Phone: Work Phone: 01-25-2022 12:57-0400 Body temperature 98.8 [degF] Dr. Adolfo Aguirre Work Phone: Work Phone: 01-25-2022 12:57-0400 Body weight 105.[address] Adolfo Aguirre Work Phone: Work Phone: 01-25-2022 12:57-0400 Diastolic blood pressure 77 mm[Hg] Dr. Adolfo Aguirre Work Phone: Work Phone: 01-25-2022 12:57-0400 Heart rate 71 /min Dr. Adolfo Aguirre Work Phone: Work Phone: 01-25-2022 12:57-0400 Respiratory rate 15 /min Dr. Adolfo Aguirre Work Phone: Work Phone: 01-25-2022 12:57-0400 Systolic blood pressure 140 mm[Hg] Dr. Adolfo Aguirre Work Phone: Work Phone: 01-11-2022 14:18-0400 Body mass index (BMI) [Ratio] 37.3 kg/m2 Dr. Adolfo Aguirre Work Phone: Work Phone: 01-11-2022 14:18-0400 Body temperature 98.2 [degF] Dr. Adolfo Aguirre Work Phone: Work Phone: 01-11-2022 14:18-0400 Body weight 105.[address] Adolfo Aguirre Work Phone: Work Phone: 01-11-2022 14:18-0400 Diastolic blood pressure 88 mm[Hg] Dr. Adolfo Aguirre Work Phone: Work Phone: 01-11-2022 14:18-0400 Heart rate 79 /min Dr. Adolfo Aguirre Work Phone: Work Phone: 01-11-2022 14:18-0400 Respiratory rate 15 /min Dr. Adolfo Aguirre Work Phone: Work Phone: 01-11-2022 14:18-0400 SaO2% (BldA) [Mass fraction] 93 % Dr. Adolfo Aguirre Work Phone: Work Phone: 01-11-2022 14:18-0400 Systolic blood pressure 165 mm[Hg] Dr. Adolfo Aguirre Work Phone: Work Phone: 01-11-2022 14:18-0400 Body height [address] Adolfo Aguirre Work Phone: Work Phone: 01-11-2022 14:18-0400 Body mass index (BMI) [Ratio] 37.3 kg/m2 Dr. Adolfo Aguirre Work Phone: Work Phone: 01-11-2022 14:18-0400 Body temperature 98.2 [degF] Dr. Adolfo Aguirre Work Phone: Work Phone: 01-11-2022 14:18-0400 Body weight 105.[address] Adolfo Aguirre Work Phone: Work Phone: 01-11-2022 14:18-0400 Diastolic blood pressure 88 mm[Hg] Dr. Adolfo Aguirre Work Phone: Work Phone: 01-11-2022 14:18-0400 Heart rate 79 /min Dr. Adolfo Aguirre Work Phone: Work Phone: 01-11-2022 14:18-0400 Respiratory rate 15 /min Dr. Adolfo Aguirre Work Phone: Work Phone: 01-11-2022 14:18-0400 SaO2% (BldA) [Mass fraction] 93 % Dr. Adolfo Aguirre Work Phone: Work Phone: 01-11-2022 14:18-0400 Systolic blood pressure 165 mm[Hg] Dr. Adolfo Aguirre Work Phone: Work Phone: 12-21-2021 11:54-0400 Body temperature 96.6 [degF] Dr. Adolfo Aguirre Work Phone: Work Phone: 12-21-2021 11:54-0400 Diastolic blood pressure 52 mm[Hg] Dr. Adolfo Aguirre Work Phone: Work Phone: 12-21-2021 11:54-0400 Heart rate 68 /min Dr. Adolfo Aguirre Work Phone: Work Phone: 12-21-2021 11:54-0400 Respiratory rate 16 /min Dr. Adolfo Aguirre Work Phone: Work Phone: 12-21-2021 11:54-0400 SaO2% (BldA) [Mass fraction] 95 % Dr. Adolfo Aguirre Work Phone: Work Phone: 12-21-2021 11:54-0400 Systolic blood pressure 136 mm[Hg] Dr. Adolfo Aguirre Work Phone: Work Phone: 12-21-2021 09:43-0400 Body mass index (BMI) [Ratio] 38 kg/m2 Dr. Adolfo Aguirre Work Phone: Work Phone: 12-21-2021 09:43-0400 Body weight 107.[address] Adolfo Aguirre Work Phone: Work Phone: 12-21-2021 09:16-0400 Body mass index (BMI) [Ratio] 38 kg/m2 Dr. Adolfo Aguirre Work Phone: Work Phone: 12-21-2021 09:16-0400 Body temperature 98.2 [degF] Dr. Adolfo Aguirre Work Phone: Work Phone: 12-21-2021 09:16-0400 Body weight 107.[address] Adolfo Aguirre Work Phone: Work Phone: 12-21-2021 09:16-0400 Diastolic blood pressure 79 mm[Hg] Dr. Adolfo Aguirre Work Phone: Work Phone: 12-21-2021 09:16-0400 Heart rate 72 /min Dr. Adolfo Aguirre Work Phone: Work Phone: 12-21-2021 09:16-0400 Respiratory rate 15 /min Dr. Adolfo Aguirre Work Phone: Work Phone: 12-21-2021 09:16-0400 SaO2% (BldA) [Mass fraction] 93 % Dr. Adolfo Aguirre Work Phone: Work Phone: 12-21-2021 09:16-0400 Systolic blood pressure 178 mm[Hg] Dr. Adolfo Aguirre Work Phone: Work Phone: 11-30-2021 12:36-0400 Body temperature 96.6 [degF] Dr. Adolfo Aguirre Work Phone: Work Phone: 11-30-2021 12:36-0400 Diastolic blood pressure 66 mm[Hg] Dr. Adolfo Aguirre Work Phone: Work Phone: 11-30-2021 12:36-0400 Heart rate 59 /min Dr. Adolfo Aguirre Work Phone: Work Phone: 11-30-2021 12:36-0400 Respiratory rate 16 /min Dr. Adolfo Aguirre Work Phone: Work Phone: 11-30-2021 12:36-0400 SaO2% (BldA) [Mass fraction] 98 % Dr. Adolfo Aguirre Work Phone: Work Phone: 11-30-2021 12:36-0400 Systolic blood pressure 141 mm[Hg] Dr. Adolfo Aguirre Work Phone: Work Phone: 11-30-2021 10:56-0400 Body height [address] Adolfo Aguirre Work Phone: Work Phone: 11-30-2021 10:56-0400 Body mass index (BMI) [Ratio] 38.4 kg/m2 Dr. Adolfo Aguirre Work Phone: Work Phone: 11-30-2021 10:56-0400 Body weight 108.[address] Adolfo Aguirre Work Phone: Work Phone: 11-30-2021 10:04-0400 Body mass index (BMI) [Ratio] 38.5 kg/m2 Dr. Adolfo Aguirre Work Phone: Work Phone: 11-30-2021 10:04-0400 Body weight 108.[address] Adolfo Aguirre Work Phone: Work Phone: 11-30-2021 10:04-0400 Diastolic blood pressure 88 mm[Hg] Dr. Adolfo Aguirre Work Phone: Work Phone: 11-30-2021 10:04-0400 Heart rate 59 /min Dr. Adolfo Aguirre Work Phone: Work Phone: 11-30-2021 10:04-0400 Respiratory rate 15 /min Dr. Adolfo Aguirre Work Phone: Work Phone: 11-30-2021 10:04-0400 SaO2% (BldA) [Mass fraction] 96 % Dr. Adolfo Aguirre Work Phone: Work Phone: 11-30-2021 10:04-0400 Systolic blood pressure 182 mm[Hg] Dr. Adolfo Aguirre Work Phone: Work Phone: 11-09-2021 09:16-0500 Body mass index (BMI) [Ratio] 39.7 kg/m2 Dr. Adolfo Aguirre Work Phone: Work Phone: 11-09-2021 09:16-0500 Body temperature 98.2 [degF] Dr. Adolfo Aguirre Work Phone: Work Phone: 11-09-2021 09:16-0500 Body weight 111.[address] Adolfo Aguirre Work Phone: Work Phone: 11-09-2021 09:16-0500 Diastolic blood pressure 80 mm[Hg] Dr. Adolfo Aguirre Work Phone: Work Phone: 11-09-2021 09:16-0500 Heart rate 66 /min Dr. Adolfo Aguirre Work Phone: Work Phone: 11-09-2021 09:16-0500 Respiratory rate 15 /min Dr. Adolfo Aguirre Work Phone: Work Phone: 11-09-2021 09:16-0500 Systolic blood pressure 143 mm[Hg] Dr. Adolfo Aguirre Work Phone: Work Phone: 11-05-2021 12:43-0500 Body mass index (BMI) [Ratio] 39.8 kg/m2 Dr. Adolfo Aguirre Work Phone: Work Phone: 11-05-2021 12:43-0500 Body temperature 98.4 [degF] Dr. Adolfo Aguirre Work Phone: Work Phone: 11-05-2021 12:43-0500 Body weight 111.[address] Adolfo Aguirre Work Phone: Work Phone: 11-05-2021 12:43-0500 Diastolic blood pressure 77 mm[Hg] Dr. Adolfo Aguirre Work Phone: Work Phone: 11-05-2021 12:43-0500 Heart rate 85 /min Dr. Adolfo Aguirre Work Phone: Work Phone: 11-05-2021 12:43-0500 Respiratory rate 15 /min Dr. Adolfo Aguirre Work Phone: Work Phone: 11-05-2021 12:43-0500 SaO2% (BldA) [Mass fraction] 93 % Dr. Adolfo Aguirre Work Phone: Work Phone: 11-05-2021 12:43-0500 Systolic blood pressure 139 mm[Hg] Dr. Adolfo Aguirre Work Phone: Work Phone: 10-19-2021 09:19-0500 Body mass index (BMI) [Ratio] 41.1 kg/m2 Dr. Adolfo Aguirre Work Phone: Work Phone: 10-19-2021 09:19-0500 Body temperature 98.2 [degF] Dr. Adolfo Aguirre Work Phone: Work Phone: 10-19-2021 09:19-0500 Body weight 115.[address] Adolfo Aguirre Work Phone: Work Phone: 10-19-2021 09:19-0500 Diastolic blood pressure 72 mm[Hg] Dr. Adolfo Aguirre Work Phone: Work Phone: 10-19-2021 09:19-0500 Heart rate 80 /min Dr. Adolfo Aguirre Work Phone: Work Phone: 10-19-2021 09:19-0500 Respiratory rate 15 /min Dr. Adolfo Aguirre Work Phone: Work Phone: 10-19-2021 09:19-0500 SaO2% (BldA) [Mass fraction] 94 % Dr. Adolfo Aguirre Work Phone: Work Phone: 10-19-2021 09:19-0500 Systolic blood pressure 138 mm[Hg] Dr. Adolfo Aguirre Work Phone: Work Phone: 09-28-2021 09:11-0500 Body mass index (BMI) [Ratio] 40.8 kg/m2 Dr. Adolfo Aguirre Work Phone: Work Phone: 09-28-2021 09:11-0500 Body temperature 97.7 [degF] Dr. Adolfo Aguirre Work Phone: Work Phone: 09-28-2021 09:11-0500 Body weight 114.[address] Adolfo Aguirre Work Phone: Work Phone: 09-28-2021 09:11-0500 Diastolic blood pressure 77 mm[Hg] Dr. Adolfo Aguirre Work Phone: Work Phone: 09-28-2021 09:11-0500 Heart rate 77 /min Dr. Adolfo Aguirre Work Phone: Work Phone: 09-28-2021 09:11-0500 Respiratory rate 15 /min Dr. Adolfo Aguirre Work Phone: Work Phone: 09-28-2021 09:11-0500 SaO2% (BldA) [Mass fraction] 954 % Dr. Adolfo Aguirre Work Phone: Work Phone: 09-28-2021 09:11-0500 Systolic blood pressure 139 mm[Hg] Dr. Adolfo Aguirre Work Phone: Work Phone: 09-07-2021 11:56-0500 Body mass index (BMI) [Ratio] 40 kg/m2 Dr. Adolfo Aguirre Work Phone: Work Phone: 09-07-2021 11:56-0500 Body temperature 98.2 [degF] Dr. Adolfo Aguirre Work Phone: Work Phone: 09-07-2021 11:56-0500 Body weight 112.[address] Adolfo Aguirre Work Phone: Work Phone: 09-07-2021 11:56-0500 Diastolic blood pressure 83 mm[Hg] Dr. Adolfo Aguirre Work Phone: Work Phone: 09-07-2021 11:56-0500 Heart rate 77 /min Dr. Adolfo Aguirre Work Phone: Work Phone: 09-07-2021 11:56-0500 Respiratory rate 17 /min Dr. Adolfo Aguirre Work Phone: Work Phone: 09-07-2021 11:56-0500 SaO2% (BldA) [Mass fraction] 96 % Dr. Adolfo Aguirre Work Phone: Work Phone: 09-07-2021 11:56-0500 Systolic blood pressure 145 mm[Hg] Dr. Adolfo Aguirre Work Phone: Work Phone: Encounters Encounter Date Encounter Type Care Provider Facility Start: 07-23-2025 Encounter for other preprocedural examination [facility] Start: 07-17-2025 End: 07-17-2025 ambulatory Rae Aguirre Facility:[facility] Start: 07-12-2025 ambulatory Harrison Colvinori [facility] Start: 07-12-2025 End: 07-12-2025 ambulatory [facility] Facility: Start: 07-08-2025 End: 07-08-2025 ambulatory Rae Aguirre Facility:[facility] Start: 06-27-2025 End: 06-27-[address] Myron Calvillo MD -[facility] Work Phone: Start: 06-27-2025 End: 06-27-[address] Rae Aguirre MD Work Phone: -[facility] Start: 06-17-2025 End: 06-17-[address] Myron Calvillo MD -Nuclear Medicine [facility] Work Phone: Start: 06-17-2025 End: 06-17-2025 ambulatory [facility] Facility: Start: 05-30-2025 End: 05-30-[address] Myron Calvillo MD -[facility] Work Phone: Start: 05-30-2025 End: 05-30-[address] Rae Aguirre MD Work Phone: [facility] Start: 05-30-[address] Chelsea Sanchez on [facility] Start: 05-02-[address] Chelsea Sanchez on [facility] Start: 05-02-2025 End: 05-02-2025 Patient encounter procedure Sultana HUBBARD -[facility] Work Phone: Start: 05-02-2025 End: 05-02-[address] Rae Aguirre MD Work Phone: [facility] Start: 04-04-2025 End: 04-04-[address] Myron Calvillo MD -[facility] Work Phone: Start: 04-04-2025 End: 04-04-[address] Rae Aguirre MD Work Phone: [facility] Start: 03-21-[address] Chelsea Sanchez on DO -[facility] Start: 03-21-2025 End: 03-21-[address] Myron Calvillo MD -[facility] Work Phone: Start: 03-21-2025 End: 03-21-[address] Rae Aguirre MD Work Phone: [facility] Start: 03-14-[address] Chelsea Sanchez on DO [facility] Start: 03-14-2025 End: 03-14-[address] [facility] Work Phone: Start: 03-14-2025 End: 03-14-[address] Rae Aguirre MD Work Phone: [facility] Start: 02-14-[address] Chelsea Sanchez on DO -[facility] Start: 02-14-2025 End: 02-14-2025 Patient encounter procedure Sultana Finn [facility] -[facility] Work Phone: Start: 02-14-2025 End: 02-14-[address] Rae Aguirre MD Work Phone: [facility] Work Phone: Start: 02-12-[address] Chelsea Sanchez on DO -Radiation Oncology Start: 02-12-2025 End: 02-12-[address] Chelsea Anguiano [facility] Work Phone: Start: 02-12-2025 End: 02-12-[address] Rae Aguirre MD Work Phone: [facility] Work Phone: Start: 02-11-2025 Non-patient / Non-visit [facility]. Chelsea connel[facility] Work Phone: Start: 02-11-2025 ambulatory Chelsea Anguiano Facility: [facility] Start: 02-06-2025 ambulatory [place] Facility: [facility] Start: 02-06-2025 Non-patient / Non-[facility] Start: 02-05-2025 ambulatory Chelsea [place] Facility: [facility] Start: 02-05-2025 Non-patient / Non-visit [facility] Start: 01-29-2025 ambulatory Chelsea [place] Facility: [facility] Start: 01-29-2025 Non-patient / Non-visit Dr. Chelsea connelly [facility] Start: 01-24-2025 End: 01-24-[address] Chelsea Anguiano DO [facility] Work Phone: Start: 01-24-2025 End: 01-24-[address] Rae Aguirre MD Work Phone: [facility] Work Phone: Start: 01-17-2025 End: 01-17-[address] Myron Calvillo MD -[facility] Work Phone: Start: 01-17-2025 End: 01-17-2025 ambulatory Rea Aguirre Facility:[facility] Start: 01-17-[address] Chelsea Sanchez on [facility] Start: 12-20-2024 End: 12-20-[address] Myron Calvillo MD [facility] Work Phone: Start: 12-20-2024 End: 12-20-2024 ambulatory Rae Aguirre Facility:[facility] Start: 11-22-[address] Chelsea Sanchez on [facility] Start: 11-22-2024 End: 11-22-2024 Patient encounter procedure Sultana Finn NP- -[facility] Work Phone: Start: 11-22-2024 End: 11-22-2024 ambulatory Sultana Aakash [employer] Facility:[facility] Start: 11-13-2024 End: 11-13-[address] Rae Aguirre MD Work Phone: Work Phone: Start: 11-13-2024 End: 11-13-[address] Rae Aguirre MD -Laboratory Work Phone: Start: 11-13-2024 End: 11-13-2024 ambulatory Rae Aguirre Facility: Start: 11-09-2024 End: 11-09-[address] Rae Aguirre MD Work Phone: Work Phone: Start: 11-09-2024 End: 11-09-[address] [facility] Start: 11-09-2024 End: 11-09-2024 ambulatory [facility] Facility: Start: 11-05-2024 End: 11-05-2024 Emergency department patient visit Dr. Trever Terry DO -Emergency Department Work Phone: Start: 10-25-[address] Chelsea Sanchez on [facility] Start: 10-25-2024 End: 10-25-2024 Patient encounter procedure Sultana Finn NP-[facility] Work Phone: Start: 10-25-2024 End: 10-25-2024 ambulatory Sultana Aakash [employer] Facility:[facility] Start: 10-18-2024 End: 10-18-[address] Kang Pagan MD -[facility] Work Phone: Start: 10-18-2024 End: 10-18-2024 ambulatory [facility] Facility:[facility] Start: 09-20-2024 End: 09-20-[address] Myron Calvillo MD [facility] Work Phone: Start: 09-20-2024 End: 09-20-2024 [facility] Start: 08-23-2024 End: 08-23-[address] Myron Calvillo MD -[facility] Work Phone: Start: 08-23-2024 End: 08-23-2024 ambulatory Rae Aguirre Facility:[facility] Start: 07-26-2024 End: 07-26-[address] Myron Calvillo MD -[facility] Work Phone: Start: 07-26-2024 End: 07-26-2024 ambulatory Rae Aguirre Facility:[facility] Start: 12-08-2023 End: 12-08-[address] Adolfo Aguirre Work Phone: Work Phone: Start: 12-08-2023 End: 12-08-[address] Adolfo Aguirre Work Phone: [facility] Start: 11-29-[address] Jose Luis Aguirre Work Phone: [facility] Start: 11-29-2023 End: 11-29-[address] Adolfo Aguirre Work Phone: [facility] Work Phone: Start: 10-25-2023 End: 10-25-[address] Adolfo Aguirre Work Phone: [facility] Work Phone: Start: 09-27-2023 End: 09-27-[address] Adolfo Aguirre Work Phone: [facility] Work Phone: Start: 08-30-2023 End: 08-30-[address] Adolfo Aguirre Work Phone: [facility] Work Phone: Start: 07-06-[address] Jose Luis Aguirre Work Phone: -Radiation Oncology Start: 07-05-[address] Jose Luis Aguirre Work Phone: [facility] Start: 07-05-2023 End: 07-05-[address] Adolfo Aguirre Work Phone: [facility] Work Phone: Start: 06-29-2023 End: 06-29-[address] Adolfo Aguirre Work Phone: Work Phone: Start: 06-29-2023 End: 06-29-[address] Adolfo Aguirre Work Phone: -Outpatient Bone Densitometry Work Phone: Start: 06-28-2023 End: 06-28-[address] Adolfo Aguirre Work Phone: Work Phone: Start: 06-28-2023 End: 06-28-[address] Adolfo Aguirre Work Phone: -Radiology, [facility] Work Phone: Start: 06-28-2023 End: 06-28-[address] Adolfo Aguirre Work Phone: [facility] Work Phone: Start: 05-31-[address] Jose Luis Aguirre Work Phone: [facility] Start: 05-31-2023 End: 05-31-[address] Adolfo Aguirre Work Phone: Work Phone: Start: 05-31-2023 End: 05-31-[address] Adolfo Aguirre Work Phone: [facility] Work Phone: Start: 05-26-2023 End: 05-26-[address] Adolfo Aguirre Work Phone: -Nuclear Medicine, [facility] Work Phone: Start: 05-23-2023 End: 05-23-[address] Adolfo Aguirre Work Phone: -Cat Scan, [facility] Work Phone: Start: 05-03-2023 End: 05-03-[address] Adolfo Aguirre Work Phone: [facility] Work Phone: Start: 04-05-2023 End: 04-05-[address] Adolfo Aguirre Work Phone: [facility] Work Phone: Start: 03-08-2023 End: 03-08-[address] Adolfo Aguirre Work Phone: [facility] Work Phone: Start: 02-09-2023 End: 02-09-[address] Adolfo Aguirre Work Phone: [facility] Work Phone: Start: 11-30-[address] Jose Luis Aguirre Work Phone: [facility] Start: 11-30-2022 End: 11-30-2022 Non-patient / Non-visit Dr. Adolfo Aguirre Work Phone: [facility] Start: 11-30-2022 End: 11-30-[address] Adolfo Aguirre Work Phone: Work Phone: Start: 11-30-2022 End: 11-30-[address] Adolfo Aguirre Work Phone: [facility] Start: 11-02-2022 End: 11-02-[address] Adolfo Aguirre Work Phone: [facility] Start: 10-26-2022 End: 10-26-[address] Adolfo Aguirre Work Phone: [facility] Start: 09-28-2022 End: 09-28-[address] Adolfo Aguirre Work Phone: [facility] Start: 08-31-2022 End: 08-31-[address] Adolfo Aguirre Work Phone: Work Phone: Start: 08-31-2022 End: 08-31-[address] Adolfo Aguirre Work Phone: [facility] Start: 08-31-[address] Jose Luis Aguirre Work Phone: [facility] Start: 08-31-2022 End: 08-31-[address] Adolfo Aguirre Work Phone: [facility] Start: 08-03-2022 End: 08-03-[address] Adolfo Aguirre Work Phone: [facility] Start: 07-05-2022 End: 07-05-[address] Adolfo Aguirre Work Phone: [facility] Start: 06-07-2022 End: 06-07-[address] Adolfo Aguirre Work Phone: [facility] Start: 06-03-2022 End: 06-03-[address] Adolfo Aguirre Work Phone: [facility] Start: 05-31-2022 End: 05-31-[address] Adolfo Aguirre Work Phone: [facility] Start: 04-26-[address] Jose Luis Aguirre Work Phone: [facility] Start: 04-26-2022 End: 04-26-[address] Adolfo Aguirre Work Phone: [facility] Start: 04-22-2022 End: 04-22-[address] Adolfo Aguirre Work Phone: -[facility] Start: 04-19-2022 End: 04-19-[address] Adolfo Aguirre Work Phone: [facility] Start: 03-23-2022 End: 03-23-[address] Adolfo Aguirre Work Phone: [facility] Start: 03-16-2022 End: 03-16-[address] Adolfo Aguirre Work Phone: [facility] Start: 03-01-2022 End: 03-01-[address] Adolfo Aguirre Work Phone: [facility] Start: 02-15-2022 End: 02-15-[address] Adolfo Aguirre Work Phone: [facility] Start: 02-09-2022 End: 02-09-[address] Adolfo Aguirre Work Phone: [facility] Start: 01-25-2022 End: 01-25-[address] Adolfo Aguirre Work Phone: [facility] Start: 01-14-2022 End: 01-14-[address] Adolfo Aguirre Work Phone: [facility] Start: 01-11-[address] Jose Luis Aguirre Work Phone: [facility] Start: 01-11-2022 End: 01-11-[address] Adolfo Aguirre Work Phone: [facility] Start: 12-21-2021 End: 12-21-[address] Adolfo Aguirre Work Phone: [facility] Start: 12-14-2021 End: 12-14-[address] Adolfo Aguirre Work Phone: -Nuclear Medicine, [facility] Start: 12-09-2021 Non-patient / Non-visit Dr. Tahira Aguirre Work Phone: [facility] Start: 12-09-2021 End: 12-09-[address] Adolfo Aguirre Work Phone: -Cardiovascula r Services Start: 11-30-[address] Jose Luis Aguirre Work Phone: [facility] Start: 11-30-2021 End: 11-30-[address] Adolfo Aguirre Work Phone: [facility] Start: 11-09-2021 End: 11-09-[address] Adolfo Aguirre Work Phone: [facility] Start: 11-05-2021 End: 11-05-[address] Adolfo Aguirre Work Phone: [facility] Start: 11-05-2021 End: 11-05-[address] Adolfo Aguirre Work Phone: [facility] Start: 10-19-2021 End: 10-19-[address] Adolfo Aguirer Work Phone: [facility] Start: 09-28-2021 End: 09-28-[address] Adolfo Aguirre Work Phone: [facility] Start: 09-07-2021 End: 09-07-[address] Adolfo Aguirre Work Phone: [facility] Start: 08-10-2021 End: 07-17-2025 ambulatory Kang Donna Facility: Start: 06-05-2021 End: 06-05-2021 ambulatory TAVARES FONTENOT [facility] Start: 04-30-2021 ambulatory LUCIANO ADAM Facility: [facility] Start: 04-21-2019 End: 04-22-2019 Patient encounter procedure UNKNOWN PROVIDER Facility:[facility] Procedures Date Procedure Procedure Detail Performing Clinician Start: 06-27-[address] Jose Luis Aguirre MD Work Phone: Start: 06-17-2025 Radionuclide whole body bone study Dr. Rae Aguirre MD Work Phone: Start: 05-30-[address] Jose [...] Juan M Aguirre MD Work Phone: Start: 11-29-[address] Rae Aguirre MD Work Phone: Start: 10-25-2023 Bacteria [...] Treatment Date Care Activity Detail Author Start: 07-08-2025 End: 07-08-2025 Patient encounter procedure Bone metastases -[facility] Work Phone: Start: 07-02-2025 PET study for localization of tumor PET/CT Tumor Base -Thigh Subs Start: 07-02-2025 Registered Recurring Registered Recurring -[facility] Start: 05-02-2025 Cancer Ag 125 [Units/volume] in Serum or Plasma Start: 05-02-2025 Cancer Ag 15-3 [Presence] in Serum or Plasma Start: 05-02-2025 Cancer Ag 27-29 [Presence] in Serum or Plasma Start: 05-02-2025 Carcinoembryonic Ag [Mass/volume] in Serum or Plasma Start: 05-02-2025 Start: 03-14-2025 Cancer Ag 15-3 [Presence] in Serum or Plasma Start: 03-14-2025 Cancer Ag 27-29 [Presence] in Serum or Plasma Start: 02-14-2025 Start: 01-17-2025 Patient referral [facility] Work Phone: Start: 07-05-2023 Start: 05-31-2023 Cancer Ag 15-3 [Presence] in Serum or Plasma Start: 05-31-2023 Cancer Ag 27-29 [Presence] in Serum or Plasma Start: 05-31-2023 Start: 05-26-2023 Venous catheter care management Start: 05-23-2023 Venous catheter care management Start: 01-11-2023 Disease process or condition education Start: 01-11-2023 Start: 12-07-2022 Disease process or condition education Start: 12-07-2022 Vitamin D, 25-hydroxy measurement Start: 12-07-2022 Start: 11-02-2022 Disease process or condition education Start: 11-02-2022 Start: 09-28-2022 Disease process or condition education Start: 09-28-2022 Start: 08-31-2022 Venous catheter care management Start: 08-31-2022 Disease process or condition education Start: 08-31-2022 Start: 08-03-2022 Disease process or condition education Start: 08-03-2022 Start: 07-05-2022 Disease process or condition education Start: 07-05-2022 Start: 06-07-2022 Disease process or condition education Start: 06-07-2022 Start: 06-03-2022 Venous catheter care management Work Phone: Start: 05-31-2022 Venous catheter care management Start: 04-26-2022 Disease process or condition education Start: 04-26-2022 Start: 04-22-2022 Venous catheter care management Work Phone: Start: 04-19-2022 Venous catheter care management Start: 03-16-2022 Disease process or condition education Start: 03-16-2022 Start: 02-15-2022 Disease process or condition education Start: 02-15-2022 Start: 01-11-2022 Disease process or condition education Start: 01-11-2022 Start: 10-19-2021 Start: 08-17-2021 Venous catheter care management Start: 05-25-2021 Venous catheter care management Alanine aminotransfe rase [Enzymatic activity/volume] in Serum or Plasma Albumin [Mass/volume ] in Serum or Plasma Alkaline phosphatase [Enzymatic activity/volume] in Serum or Plasma Anion gap measurement [facility] Aspartate aminotrans ferase [Enzymatic activity/volume] in Serum or Plasma Bilirubin, total measurement BUN/Creatinine ratio Calcium [Mass/volume ] in Serum or Plasma Cancer Ag 15-3 [Pres ence] in Serum or Plasma Cancer Ag 15-3 [Pres ence] in Serum or Plasma Cancer Ag 15-3 [Pres ence] in Serum or Plasma Cancer Ag 15-3 [Pres ence] in Serum or Plasma Cancer Ag 15-3 [Pres ence] in Serum or Plasma Cancer Ag 15-3 [Pres ence] in Serum or Plasma Cancer Ag 27-29 [Pre sence] in Serum or Plasma Cancer Ag 27-29 [Pre sence] in Serum or Plasma Cancer Ag 27-29 [Pre sence] in Serum or Plasma Cancer Ag 27-29 [Pre sence] in Serum or Plasma Cancer Ag 27-29 [Pre sence] in Serum or Plasma Cancer Ag 27-29 [Pre sence] in Serum or Plasma Carbon dioxide, tota l [Moles/volume] in Serum or Plasma Carcinoembryonic Ag [Mass/volume] in Serum or Plasma Carcinoembryonic Ag [Mass/volume] in Serum or Plasma CBC W Auto Different ial panel - Blood Work Phone: CBC W Auto Different ial panel - Blood CBC W Auto Different ial panel - Blood CBC W Auto Different ial panel - Blood CBC W Auto Different ial panel - Blood CBC W Auto Different ial panel - Blood CBC W Auto Different ial panel - Blood CBC W Auto Different ial panel - Blood CBC W Auto Different ial panel - Blood Chloride [Moles/volu me] in Serum or Plasma Comprehensive metabo lic 1999 panel - Serum or Plasma Comprehensive metabo lic 1999 panel - Serum or Plasma Comprehensive metabo lic 1999 panel - Serum or Plasma Comprehensive metabo lic 1999 panel - Serum or Plasma Creatinine [Moles/vo lume] in Serum or Plasma Glucose [Mass/volume ] in Serum or Plasma Hematocrit [Volume Fraction] of Blood Hemoglobin [Mass/vol ume] in Blood Lactate dehydrogenas e measurement Lactate dehydrogenas e measurement Lactate dehydrogenas e measurement Lactate dehydrogenas e measurement LDH [facility] Work Phone: Leukocytes [#/volume ] in Blood Mean corpuscular hem oglobin concentration determination Mean corpuscular hem oglobin determination Measurement of renal function Neutrophil count [facility] Neutrophil percent differential count NM Whole body Bone Views [facility] Patient referral [facility] Work Phone: Platelets [#/volume] in Blood Potassium [Moles/vol ume] in Serum or Plasma PT Unspecified body region [facility] PT Unspecified body region W [facility] Radiation oncology A ND/OR radiotherapy Red blood cell count Red cell distributio n width determination Sodium [Moles/volume ] in Serum or Plasma Total protein measurement [facility] Urea nitrogen [Mass/ volume] in Serum or Plasma [facility] Immunizations Immunization Date Immunization Notes Care Provider Kimberly davidson 06-17-2021 influenza, injectabl e, quadrivalent, preservative free Dr. Adolfo Aguirre Work Phone: 06-17-2021 influenza, seasonal, injectable Dr. Adolfo Aguirre Work Phone: 10-28-2020 Covid (Moderna) Dr. Emerita Aguirre Work Phone: 09-30-2020 Covid (Moderna) Dr. Emerita Aguirre Work Phone: 06-26-2020 influenza, injectabl e, quadrivalent, preservative free Dr. Adolfo Aguirre Work Phone: 06-26-2020 influenza, seasonal, injectable Dr. Adolfo Aguirre Work Phone: 06-26-2018 influenza, injectabl e, quadrivalent, preservative free Dr. Adolfo Aguirre Work Phone: 06-26-2018 influenza, seasonal, injectable Dr. Adolfo Aguirre Work Phone: 07-04-2017 influenza, injectabl e, quadrivalent, preservative free Dr. Adolfo Aguirre Work Phone: 07-04-2017 influenza, seasonal, injectable Dr. Adolfo Aguirre Work Phone: 06-21-2016 influenza, injectabl e, quadrivalent, preservative free Dr. Adolfo Aguirre Work Phone: 06-21-2016 influenza, seasonal, injectable Dr. Adolfo Aguirre Work Phone: 06-12-2015 influenza, injectabl e, quadrivalent, preservative free Dr. Adolfo Aguirre Work Phone: 06-12-2015 influenza, seasonal, injectable Dr. Adolfo Aguirre Work Phone: 06-07-2014 influenza, injectabl e, quadrivalent, preservative free Dr. Adolfo Aguirre Work Phone: 06-07-2014 influenza, seasonal, injectable Dr. Adolfo Aguirre Work Phone: 06-07-[address] Saiam Aguirre Work Phone: Work Phone: 06-07-2014 pneumococcal vaccine , unspecified formulation Dr. Adolfo Aguirre Work Phone: 07-12-[address] Adolfo Aguirre Work Phone: 06-12-[address] Adolfo Aguirre Work Phone: Payers Date Payer Category Payer Self-pay [id number] 2019 Unknown PMT POSTING 2017 Medicare [id number] 2017 Unknown [id number] 2015 Unknown [id number] 1955 Unknown [id number] 2.16. [id number] 1955 Unknown [id number] 2.16. 840.1.352678.3.579.2.594 Unknown [id number] 2.16.8 40.1.938963.3.579.2.462 Unknown [id number] 2.16.8 40.1.358138.3.579.2.462 Unknown [id number] 2.16.8 40.1.745925.3.579.2.462 Unknown [id number] 2.16.8 40.1.987040.3.579.2.462 Unknown [id number] 2.16.8 40.1.463469.3.579.2.462 Unknown [id number] 2.16.8 40.1.251406.3.579.2.462 Unknown [id number] 2.16.8 40.1.538993.3.579.2.462 Unknown [id number] 2.16.8 40.1.407537.3.579.2.462 Unknown [id number] 2.16.8 40.1.481706.3.579.2.462 Unknown [id number] 2.16.8 40.1.070524.3.579.2.462 Unknown [id number] 2.16.8 40.1.121815.3.579.2.462 Unknown [id number] 2.16.8 40.1.520757.3.579.2.462 Unknown [id number] 2.16.8 40.1.358486.3.579.2.462 Unknown [id number] 2.16.8 40.1.868025.3.579.2.462 Unknown [id number] 2.16.8 40.1.366833.3.579.2.462 Unknown [id number] 2.16.8 40.1.189158.3.579.2.462 Unknown [id number] 2.16.8 40.1.194130.3.579.2.462 Unknown [id number] 2.16.8 40.1.716325.3.579.2.462 Unknown [id number] 2.16.8 40.1.745904.3.579.2.462 Unknown [id number] 2.16.8 40.1.399367.3.579.2.462 Unknown [id number] 2.16.8 40.1.825653.3.579.2.462 Unknown [id number] 2.16.8 40.1.457518.3.579.2.462 Unknown [id number] 2.16.8 40.1.193938.3.579.2.462 Unknown [id number] 2.16.8 40.1.036908.3.579.2.462 Unknown [id number] 2.16.8 40.1.593627.3.579.2.462 Unknown [id number] 2.16.8 40.1.563356.3.579.2.462 Unknown [id number] 2.16.8 40.1.810870.3.579.2.462 Unknown [id number] 2.16.8 40.1.125024.3.579.2.462 Unknown [id number] 2.16.8 40.1.646982.3.579.2.462 Unknown [id number] 2.16.8 40.1.447980.3.579.2.462 Unknown [id number] 2.16.8 40.1.779674.3.579.2.462 Unknown [id number] 2.16.8 40.1.117975.3.579.2.462 Social History Date Type Detail Facility Start: 04-21-2021 End: 05-20-2021 Tobacco smoking status TXIS Unknown if ever smoked Start: 04-20-2019 None [facility] Start: 04-20-2019 Spouse/ Signif icant Other Start: 1955 Sex Assigned At Female [facility] Start: 07-10-2015 Rare [facility] Start: 07-10-2015 Non-smoker [facility] Start: 11-05-2024 Tobacco smoking status NHIS Never smoked tobacco (finding) Start: 11-21-2024 End: 11-23-2024 Sex Female (finding) Sex Female [facility] Medical Equipment Procedure Code Equipment Code [...] Level Of Cons ciousness Awake;Alert;Appropriate;Follow s Commands Work Phone: Clinical Notes 05-31-2023 to 06-27-2025 Note Date & Type Note Facility 06-27-2025 Progress note [facility] 05-30-2025 Progress note [facility] 03-14-2025 Evaluation note Diagnosis Onset Date Resolution Bone metastases chronic March 14, 2025 9:37am Metastasis from breast cancer chronic March 14, 2025 9 :37am Bone metastases chronic March 14, 2025 9:38am Bone metastases chronic March 1:14pm Metastasis from breast cancer March 21, 2025 1:14pm Bone metastases chronic March 2:27pm Metastasis from breast cancer chronic April 04, 2025 2:27pm Bone metastases chronic May 022024 9:49am Metastasis from breast cancer May 02 9:49am Bone metastases May 30, 2025 1:34pm Metastasis from breast cancer May 30, 2025 1:34pm Bone metastases chronic June 122024 12:27pm Metastasis from breast cancer chronic June 27 12:27pm Bone metastases chronic June 132024 12:42pm Metastasis from breast cancer chronic July 08 12:42pm [place] [employer] Work Phone: 1(782) 269-261906-03-2025 Evaluation note* Diagnosis Onset Date Resolution Status Admit Date Bone metastases chronic February 12, 2025 1:29pm Bone metastases chronic February 14, 2025 9:43am Metastasis from breast cancer February 14, 2025 9 :43am Bone metastases chronic March 14, 2025 9:37am Metastasis from breast cancer March 14, 2025 9 :37am Bone metastases chronic March 14, 2025 9:38am Bone metastases chronic March 1:14pm Metastasis from breast cancer March 21, 2025 1:14pm Bone metastases chronic March 2:27pm Metastasis from breast cancer April 04, 2025 2:27pm Bone metastases chronic May 022024 9:49am Metastasis from breast cancer chronic May 02 9:49am Bone metastases chronic May 30, 2025 1:34pm Metastasis from breast cancer chronic May 30, 2025 1:34pm [place] [employer] Work Phone: 1(432) 530-485106-03-2025 Progress [facility] [place] [address] OFFICE VISIT Date of Service: 02/12/25 1336 MR#: [id number] Acct: [id number] Name: ERIBERTO SCHULER Rep #: [id number] : 1955 From: Chelsea Schafer anirudh DO Age/Sex: 69/F Location: [facility] Status: Signed Intake Vital Signs 01/24/25 13:02 [...] Yes (back) Pain scale (1-10): 6 Allergies Aocptko-LML-PgC Reductase Inhibitor (Uyomuta-Yxn-Flz Reductase Inhibitor) Adverse Reaction (Intermediate, Verified 02/12/25 13:40) elevated liver enzymes Medications ?Medication ?Instructions ?Recorded ?Confirmed ?Type losartan 100 mg tablet 100 mg PO DAILY 07/02/1312/04 History metformin 1,000 mg tablet 1,000 mg PO BIDCM 07/02/13 0 02/12/25 History keqdmwmu-ubx-bmxxd acid 0.4 1 ea PO QHS 07/02/1302/12 [...] nodule Bone metastases Atherosclerotic heart disease of [place] coronary artery without angina pectoris TIA (transient [...] 1,000 mg PO BIDCM 07/02/13 1 History ofnnwsup-fcv-wrvrp acid 0.4 1 ea PO QHS 07/02/13 [...] Type Severity Reaction Status Date / Time Qtktadv-BBE-HiA Reductase AdvReac Intermediate elevated Verified 02/12/25 13:40 Inhibitor (Ueirmje-Bhr-Wwt liver Reductase Inhibitor) enzymes Family History Father [...] moderately differentiated ductal carcinoma (ER > 95%, TN >95%, HER-2 2+ IHC not amplified onFISH) [...] / 1600 cGy Fraction number: 4 / Chemotherapy: none Subjective: Pain: 4-5 / 10, [...] at any time. Chelsea Anguiano DO, MS Maintenance Machinist, Department of Radiation Oncology [facility] Coding Level of Care Code Radiation Tx Management x5 Diagnoses Bone metastases C79.51 02/12/25 1354 DO> Date _ Chelsea Anguiano DO Cosigner Signature: Date (if applicable) CC: ~ [facility]05-08-2025 Evaluation note* Diagnosis Onset Date Resolution [...] cancer chroni c May 02, 2025 9:49am [facility] Work Phone: 1(135) 508-999304-10-2025 Evaluation note* Diagnosis Onset Date Resolution Status [...] cancer chroni c April 04, 2025 2:27pm [place] [employer] Work Phone: 1(161) 917-403803-13-2025 Evaluation note* Diagnosis Onset Date Resolution Status [...] cancer chroni c February 14, 2025 9:43am [place] [employer] Work Phone: 1(812) 428-774103-13-2025 Evaluation note* Diagnosis Onset Date Resolution Status [...] cancer chroni c March 14, 2025 9:37am [facility] Work Phone: 1(714) 804-531403-13-2025 Evaluation note* Diagnosis Onset Date Resolution Status [...] cancer chroni c March 21, 2025 1:14pm [facility] Work Phone: 1(835) 362-598103-04-2025 Nuclear medicine Diagnostic study note [facility] Services [address] [place] [address] [id number] Bone Scan Whole Body MR#: [id number] Acct: [id number] Name: ERIBERTO SCHULER Rep #: [id number] : 1955 F 69 From: Shen García MD PCP: Dr. Rae Aguirre MD Status: REG CLI Study:Bone Scan Whole Body Date of Exam: 11/13/24 Exam# [id number] Ordering Dr: Kavon Calvillo MD PROCEDURE: BONE [...] IMPRESSION: Multifocal bilateral metastatic deposits. Reading Location: [id number] CC: HAYDEE Finn; Dr. Rae Aguirre MD; Dr. Myron Calvillo MD ~ Server Manager: Signed 02-06-2025 Evaluation note* Diagnosis Onset Date Resolution Status [...] cancer chroni c January 17, 2025 1:39pm [facility] Work Phone: 1(877) 369-280902-06-2025 Evaluation note* Diagnosis Onset Date Resolution Status [...] Bone metastases chronic February 12, 2025 1:29pm [facility] Work Phone: [phone] Evaluation note* Diagnosis Onset Date Resolution Status [...] cancer chroni c October 25, 2024 12:01pm Work Phone: [phone] Evaluation note* Diagnosis Onset Date Resolution Status [...] cancer chroni c November 22, 2024 1:28pm Work Phone: 1(556) 404-369009-19-2023 Progress note Author Myron Calvillo May 31, 2023 2:08pm Note Date/Time May 31, 2023 1:32pm [facility] [place] [address] OFFICE VISIT Date of Service: 05/31/23 1326 MR#: [id number] Acct: [id number] Name: ERIBERTO SCHULER Rep #: [id number] : 1955 From: Myron Calvillo MD Age/Sex: 68/F Location: [facility] Status: Signed HPI Subjective Date of Service 05/31/23 Chief Complaint Metastatic breast cancer on treatment History of Present Illness 68 y.o. woman. 06/19/2013: Patient underwent core biopsy of the right breast and this demonstrated invasive moderately differentiated ductal carcinoma (ER > 95%, TN >95%, HER-2 2+ IHC not amplified on [...] the right anterolateral chest wall rendering the [place] at maximum SUV of9.4 compared to 1.7 [...] punch biopsy of R chest nodule at [facility] which showed Metastatic Breast cancer. 06/15/2021 [...] [employer]. Has pain R shoulder with movement. [facility] Medical History Abdominal cramping Acquired absence of bilateral breasts and nipples Acute asthma exacerbation Asthma Atherosclerotic heart disease of [place] coronary artery without angina pectoris Bone metastases [...] 95 Oxygen Delivery Method room air Intake Business Analytics Director Required: No Accompanied by: Son Is patient in pain?: Yes (right shoulder and low back) Pain scale (1-10): 3 Allergies Haqarom-VED-KkQ Reductase Inhibitor [Wokvfau-Jtl-Ltb Reductase Inhibitor] Adverse Reaction (Intermediate, Verified 05/31/23 13:29) elevated liver enzymes Medications losartan 100 mg tablet 100 mg PO DAILY 07/02/13 [History Confirmed 05/31/23] metformin 1,000 mg tablet 1,000 mg PO BIDCM 07/02/13 [History Confirmed 05/31/23] onfsatkn-jac-zicys acid 0.4 mg-lycopene 300 mcg-lutein 250 mcg [...] applicable) CC: Dr. Adolfo Aguirre MD ~ Work Phone: Evaluation note* Diagnosis Onset Date [...] metastases chronic Metastasis from breast cancer chronic Work Phone: Evaluation note* Diagnosis Onset Date [...] Bone metastases chronic Metastasis from breast cancer [facility] Work Phone: Evaluation note* Diagnosis Onset Date [...] Bone metastases chronic Metastasis from breast cancer [facility] Work Phone: Evaluation note* Diagnosis Onset Date Resolution Status Dysuria acute Bone metastases chronic Metastasis from breast cancer chronic Cystitis acute Bone metastases chronic Metastasis from breast cancer chronic Bone metastases chronic Metastasis from breast cancer chronic Bone metastases chronic Metastasis from breast cancer chronic Confusion acute Bone metastases chronic Metastasis from breast cancer [facility] Work Phone: Evaluation note* Diagnosis Onset Date Resolution Status Confusion acute Bone metastases chronic Metastasis from breast cancer chronic Bone metastases chronic Metastasis from breast cancer chronic Neutropenia acute Bone metastases chronic Metastasis from breast cancer chronic Bone metastases chronic Metastasis from breast cancer chronic Bone metastases chronic Metastasis from breast cancer chronic Work Phone: Evaluation note* Diagnosis Onset Date Resolution Status Anemia acute Bone metastases chronic Metastasis from breast cancer chronic Bone metastases chronic Metastasis from breast cancer chronic Bone metastases chronic Metastasis from breast cancer chronic Anemia acute Cough acute Bone metastases chronic Metastasis from breast cancer chronic Abdominal cramping resolved Bone metastases chronic Metastasis from breast cancer chronic Abdominal cramping resolved Work Phone: Evaluation note* Diagnosis Onset Date [...] metastases chronic Metastasis from breast cancer chronic Work Phone: Evaluation note* Diagnosis Onset Date Resolution Status Pain of right humerus acute Bone metastases chronic Metastasis from breast cancer chronic Pain of right humerus acute Bone metastases chronic Metastasis from breast cancer chronic Low back pain acute Pain of right humerus acute Bone metastases chronic Metastasis from breast cancer chronic Bone metastases chronic Metastasis from breast cancer chronic Work Phone: Progress note Author Chelsea Anguiano [facility] Note Date/Time February 12, 2025 1:54p m [facility] Cancer [address] [address] OFFICE VISIT Date of Service: 02/12/25 1336 MR#: [id number] Acct: [id number] Name: ERIBERTO SCHULER Rep #: [id number] : 1955 From: Chelsea oleary DO Age/Sex: 69/F Location: [facility] Status: Signed Intake Vital Signs 01/24/25 13:02 [...] Yes (back) Pain scale (1-10): 6 Allergies Ttjfyil-ZYL-OyJ Reductase Inhibitor (Vjzeizp-Xfd-Cbp Reductase Inhibitor) Adverse Reaction (Intermediate, Verified 02/12/25 13:40) elevated liver enzymes Medications ?Medication ?Instructions ?Recorded ?Confirmed ?Type losartan 100 mg tablet 100 mg PO DAILY 07/02/1312/04 History metformin 1,000 mg tablet 1,000 mg PO BIDCM 07/02/13 0 02/12/25 History ayfktxni-hum-bxkpw acid 0.4 1 ea PO QHS 07/02/1302/12 [...] nodule Bone metastases Atherosclerotic heart disease of menominee coronary artery without angina pectoris TIA (transient [...] 1,000 mg PO BIDCM 07/02/13 1 History tdiehuxs-ysx-oihjo acid 0.4 1 ea PO QHS 07/02/13 [...] Type Severity Reaction Status Date / Time Xxfsjkh-JWD-SjL Reductase AdvReac Intermediate elevated Verified 02/12/25 13:40 Inhibitor (Ofvoldx-Slj-Tdk liver Reductase Inhibitor) enzymes Family History Father [...] moderately differentiated ductal carcinoma (ER > 95%, TN >95%, HER-2 2+ IHC not amplified on [...] at any time. Chelsea Anguiano DO, MS Maintenance Machinist, Department of Radiation Oncology [facility] Coding Level of Care Code Radiation Tx Management x5 Diagnoses Bone metastases C79.51 02/12/25 1564 <Electronically signed by Chelsea Anguiano DO> Date _ Chelsea Anguiano DO Cosigner Signature: Date (if applicable) CC: ~ [facility] Work Phone: Progress note Author Myron Calvillo [facility] Note Date/Time May 30, 2025 3:05pm [facility] Cancer [address] [address] OFFICE VISIT Date of Service: 05/30/25 1421 MR#: [id number] Acct: [id number] Name: ERIBERTO SCHULER Rep #: [id number] : 1955 From: Myron Calvillo MD Age/Sex: 70/F [place] [facility] Signed HPI Subjective Date of Service 05/30/25 Chief Complaint Metastatic breast cancer on treatment History of Present Illness 70 y.o. woman. 06/19/2013: Patient underwent core biopsy of the right breast and this demonstrated invasive moderately differentiated ductal carcinoma (ER > 95%, TN >95%, HER-2 2+ IHC not amplified on [...] the right anterolateral chest wall rendering the [place] at maximum SUV of9.4 compared to 1.7 [...] punch biopsy of R chest nodule at [facility] which showed Metastatic Breast cancer. 06/15/2021 [...] cold, has pain in the R scapular. 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 TIA (transient [...] Delivery Method room air room air Intake Business Analytics Director Required: No Accompanied by: Granddaughter Is patient in pain?: Yes (across lower adomen) Pain scale (1-10): 3 Allergies Zrzumyi-PBN-RtM Reductase Inhibitor (Xklymhx-Zhv-Qwv Reductase Inhibitor) Adverse Reaction (Intermediate, Verified 05/30/25 14:25) elevated liver enzymes Medications ?Medication ?Instructions ?Recorded ?Confirmed ?Type losartan 100 mg tablet 100 mg PO DAILY 07/02/13 History metformin 1,000 mg tablet 1,000 mg PO BIDCM 07/02/13 0 05/30/25 History hqalzggp-mxn-wqjhu acid 0.4 1 ea PO QHS 07/02/1305/30 [...] mg tablet (Zoloft) 100 mg PO DAILY 05/10/0405/30/25 History methadone 5 mg tablet 7.5 mg [...] applicable) CC: Dr. Rae Aguirre MD ~ [facility] Work Phone: Progress note Author Myron Calvillo [facility] Note Date/Time June 27, 2025 2 :11pm [facility] Care [address] [place] [id number] OFFICE VISIT Date of Service: 06/27/25 1339 MR#: [id number] Acct: [id number] Name: ERIBERTO SCHULER Rep #: [id number] : 1955 From: Myron Calvillo MD Age/Sex: 70/F Location: [facility] Status: Signed HPI Subjective Date of Service 06/27/25 Chief Complaint Metastatic breast cancer on treatment History of Present Illness 70 y.o. woman. 06/19/2013: Patient underwent core biopsy of the right breast and this demonstrated invasive moderately differentiated ductal carcinoma (ER > 95%, TN >95%, HER-2 2+ IHC not amplified on [...] the right anterolateral chest wall rendering the [place] at maximum SUV of9.4 compared to 1.7 [...] punch biopsy of R chest nodule at [facility] which showed Metastatic Breast cancer. 06/15/2021 [...] Tamoxifen 100mg PO daily. 05/30/2025 On Tamoxifen. 06/27/2025 Comes for follow up, Bone scan done on 06/17/2025. Pt in the scapular is better.. 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 TIA (transient [...] Number of servings: 6 Intake Vital Signs 05/30/25 14:21 06/27/25 13:40 Height 5 ft 6 in 5 ft 6 in Weight: 103.419 kg 104.78 kg BMI 36.8 37.3 BP 132/61 H 145/67 H Blood Pressure Location Lt brachial Rt brachial Position Sitting Sitting Respiration 16 18 Pulse 62 84 Pulse Source Monitor Monitor Temp 98.2 F 98.2 F Temperature Source Temporal Artery Temporal Artery Pulse Oximetry (%) 97 96 Oxygen Delivery Method room air room air Intake Accompanied by: Self Is patient in pain?: No Allergies Xvwyvdg-OQO-VhL Reductase Inhibitor (Gdibybp-Jnm-Vsk Reductase Inhibitor) Adverse Reaction (Intermediate, Verified 06/27/25 13:42) elevated liver enzymes Medications ?Medication ?Instructions ?Recorded ?Confirmed ?Type losartan 100 mg tablet 100 mg PO DAILY 07/02/13 History metformin 1,000 mg tablet 1,000 mg PO BIDCM 07/02/13 1 History dkdlvdwv-cbn-yrdwk acid 0.4 1 ea PO QHS 07/02/1306/27 History mg-lycopene 300 mcg-lutein 250 mcg tablet albuterol sulfate 90 mcg/actuation 2 puff inhalation Q 4H PRN PRN 07/09/15 06/27/25 History aerosol inhaler Shortness Of Breath atorvastatin 80 mg tablet 80 mg PO QHS 07/09/15 History ergocalciferol (vitamin D2) 1,250 50,000 unit PO SUWE 07/09/15 06/27/25 History mcg (50,000 unit) capsule metoprolol succinate 25 mg 12.5 mg PO DAILY 07/09/15 1 History tablet,extended release 24 hr zolpidem 5 mg tablet 10 mg PO QHS PRN PRN Sleep 0 12/07/16 06/27/25 History albuterol sulfate 0.63 mg/3 mL 0.63 mg inhalation Q4H 07/03/19 06/27/25 History solution for nebulization cyclobenzaprine 10 mg tablet 10 mg PO BID PRN muscle s pasm #10 04/22/21 06/27/25 Rx tabs lidocaine-prilocaine 2.5 %-2.5 % 1 applic topical ONCE PRN port 05/23/21 06/27/25 Rx topical cream access 30 days #30 grams prochlorperazine maleate 5 mg 5 mg PO TID PRN nausea a nd 11/30/21 06/27/25 Rx tablet (Compazine) vomiting #30 tabs aspirin 325 mg tablet 325 mg PO DAILY 01/04/22 History lorazepam 0.5 mg tablet 0.5 mg PO QHS 04/19/2206/27 History meclizine 25 mg tablet (Dramamine 25 mg PO DAILY PRN d izziness 04/19/22 06/27/25 History (meclizine)) levothyroxine 150 mcg tablet 150 mcg PO MOTUWETHFRSA 0 04/26/22 06/27/25 History sertraline 100 mg tablet (Zoloft) 100 mg PO DAILY 01/1206/27/25 History methadone 5 mg tablet 7.5 mg PO Q12H 05/03/2306/12 History oxycodone 5 mg capsule 10 mg PO Q4H PRN Pain 06/27/25 History glipizide 2.5 mg tablet 2.5 mg PO DAILY 09/27/23 History insulin glargine 100 unit/mL (3 50 unit subcut QPM 06/27/25 History mL) subcutaneous pen (Yamilkaaglar KwyazminPen U-100 Insulin) metoclopramide HCl 5 mg tablet 5 mg PO Q8H PRN PRN [place] and 11/05/24 06/27/25 Rx (Reglan) vomiting 30 days #90 tabs ondansetron HCl 4 mg tablet 4 mg PO Q8H PRN nausea and 02/12/25 06/27/25 Rx vomiting #14 tabs tamoxifen 20 mg tablet 100 mg (5 x 20 mg) PO QDAY 3 0 days 05/06/25 06/27/25 Rx #150 tabs Have you fallen in the past year?: No Central Venous Access Central Venous Access: Yes Port/PICC: Port Exam Physical Exam Narrative ECOG 0-1 Const [...] therapy. Plan: Continue Tamoxifen 100mg PO daily. Obtain PET/CT for restaging. RTC 4 weeks. (2) Bone metastases: Status: [...] sacrum/iliac bones on 02/12/2025. Comes for follow up. Bone scan on 06/17/2025 shows progressive disease compared to 2020. Plan: Continue Tamoxifen 100mg daily. Obtain PET/CT for restaging. Clinical Quality Measures Falls Risk Screening/Assistive Devices Have you fallen in the past year?: No 06/27/25 7831 <Electronically signed by Myron Wright> Date _ Myron Calvillo MD Cosigner Signature: Date (if applicable) CC: ~ [facility] Work Phone: Reason for referral (narrative)No reason for referral information availableWKettering [facility] Work Phone: Summary Purpose Family History No Family History Records Found Relationship Condition Age at Onset Recorded Date/T eber father Myocardial infarction Unknown Sudden cardiac 57 brother Myocardial infarction Unknown Coronary artery disease Unknown sister Myocardial infarction Unknown Malignant neoplasm of uterus Unknown mother Malignant neoplasm of ovary Unknown sister Malignant neoplasm Unknown Advance Directives No Advanced Directives Records Found Advance Directive Response Recorded Date/ Time Advance Directives Yes November 30, 022 11:08am Living Will Yes November 30, 2021 11:08am Power of Manager Customer Yes November 30 11:08am Advance Directive Response Recorded Date/ Time Advance Directives Yes January 11, 2022 3:13pm Living Will Yes January 11, 2022 3: 13pm Power of Manager Customer Yes January 11, 2022 3:13pm Advance Directive Response Recorded Date/ Time Advance Directives on File No Augus t 2021 4:17pm Name of Medical Power of Manager Customer Aric Sparr April 26, 2022 4:17pm Advance Directives Yes April 26, 2022 4:17pm Living Will Yes April 26 4:17pm Power of Manager Customer Yes April 26 022 4:17pm Advance Directive Response Recorded Date/ Time Advance Directives on File No Decem 2021 10:56am Name of Medical Power of Manager Customer Aric Sparr August 31, 2022 10:56am Advance Directives Yes August 10:56am Living Will Yes August 31 022 10:56am Power of Manager Customer Yes August 31, 2022 10:56am Advance Directive Response Recorded Date/ Time Advance Directives on File No Febru [email or web address] 1:05pm Name of Medical Power of Manager Customer Aric Sparr November 02, 2022 1:05pm Advance Directives Yes October 1:05pm Living Will Yes February 21st, 2 023 1:05pm Power of Manager Customer Yes November 02, 2022 1:05pm Advance Directive Response Recorded Date/ Time Advance Directives on File No April 05, 2023 3:34pm Name of Medical Power of Manager Customer Aric Sparr April 05, 2023 3:34pm Advance Directives Yes April 05 3:34pm Living Will Yes April 05, 2023 3:34pm Power of Manager Customer Yes April 05 3:34pm Advance Directive Response Recorded Date/ Time Advance Directives on File No November 29, 2023 3:00pm Name of Medical Power of Manager Customer Aric Sparr November 29, 2023 3:00pm Advance Directives Yes November 28, 2 024 3:00pm Living Will Yes November 29, 2023 3:00pm Power of Manager Customer Yes November 28 3:00pm Advance Directive Response Recorded Date/ Time Living Will Yes May 24, 2024 3:15pm Power of Manager Customer Yes May 3:15pm Advance Directives on File No 2024 12:58pm Living Will Yes October 18 12:58pm Power of Manager Customer Yes October 18, 2024 12:58pm Name of Medical Power of Manager Customer Aric Sparr October 18, 2024 12:58pm Advance Directives Yes October 18, 2024 12:58pm Living Will Yes November 05, 025 9:10pm Power of Manager Customer Yes November 05, 2024 9:10pm Name of Medical Power of Manager Customer ARIC SPARR, PAPO SPARR, HADLEY SPARR November 05, 2024 9:10pm Advance Directive Response Recorded Date/ Time Living Will Yes May 24, 2024 3:15pm Power of Manager Customer Yes May 3:15pm Advance Directives on File No November 22, 2024 3:43pm Living Will Yes November 22, 2024 3:43pm Power of Manager Customer Yes November 22 3:43pm Name of Medical Power of Manager Customer Aric Sparr November 22, 2024 3:43pm Advance Directives Yes November 22, 2 025 3:43pm Living Will Yes November 05 2 025 9:10pm Power of Manager Customer Yes November 05, 2024 9:10pm Name of Medical Power of Manager Customer ARIC SPARR, PAPO SPARR, HADLEY SPARR November 05, 2024 9:10pm Advance Directive Response Recorded Date/ Time Advance Directives on File No January 172024 2:51pm Living Will Yes January 17, 2025 2: 51pm Do you have a Healthcare Pow er of Manager Customer? Yes January 17, 2025 2:51pm Name of Medical Power of Manager Customer Aric Sparr January 17, 2025 2:51pm Advance Directives Yes January 17, 2025 2:51pm Living Will Yes November 05 9:10pm Do you have a Healthcare Pow er of Manager Customer? Yes November 05, 2024 9:10pm Name of Medical Power of Manager Customer ARIC SPARR, PAPO SPARR, HADLEY SPARR November 05, 2024 9:10pm Advance Directive Response Recorded Date/ Time Advance Directives on File No February 14, 2025 12:36pm Living Will Yes February 14, 2025 1 2:36pm Do you have a Healthcare Power of Manager Customer? Yes February 14, 2025 12:36pm Name of Medical Power of Manager Customer Aric Sparr February 14, 2025 12:36pm Advance [...] 12:30pm HYPERGLYCEMIA November 05, 2024 6:11pm [id number] November 13, 2024 8:39 am Reason for [...] 12:01pm HYPERGLYCEMIA November 05, 2024 6:11pm [id number] November 13, 2024 8:39 am [facility] [...] 12:01pm HYPERGLYCEMIA November 05, 2024 6:11pm [id number] November 13, 2024 8:39 am [facility] [...] 12:01pm HYPERGLYCEMIA November 05, 2024 6:11pm [id number] November 13, 2024 8:39 am [facility] [...] 12:01pm HYPERGLYCEMIA November 05, 2024 6:11pm [id number] November 13, 2024 8:39 am [facility] [...] 3:30 pm 2 WEEKS NO LABS REVIEW [facility] 2024 2:27pm Reason for Visit Admit Date [...] 2 WEEKS NO LABS REVIEW [facility] ly 2024 2:27pm [facility] [...] from breast cancer May 30, 2025 1:34pm Chief Complaint Admit Date [facility] FASLODEX March 14, 2025 9:37a m 1 MONTH F/U POST RT March 14, 2025 9:38a m 1WK NO LABS FASLODEX March 21, 2025 1:1 4pm 2 WEEKS NO LABS REVIEW [facility] Ju ly 2024 2:27pm [facility] May 02, 2025 9: 49am [facility] May 30, 2025 1:34pm F/U METASTATIC BREAST CANCER June 7:08am 4 WEEK LABS REVIEW BONE SCAN June 12:27pm BREAST July 02, 2025 7 :45am [facility] PRIOR REVIEW PET July 08, 2025 12:42pm Reason for Visit Admit Date Bone metastases March 14, 2025 9:37a m [...] from breast cancer May 30, 2025 1:34pm Bone metastases June 27, 2025 1 2:27pm Metastasis from breast cancer June 272024 12:27pm Bone metastases July 08, 2025 1 2:42pm Metastasis from breast cancer July 082024 12:42pm Additional Source Comments INFORMATION SOURCE (unrecogn ized section and content) DATE CREATED AUTHOR 05/22/2019 [employer] DATE CREATED AUTHOR AUTHOR'S ORGANIZ ATION 11/04/2021 [facility] DATE CREATED AUTHOR AUTHOR'S ORGANIZ ATION 02/23/2023 [facility] DATE CREATED AUTHOR AUTHOR'S ORGANIZ ATION 07/24/2025 [facility] Goals (unrecognized section and content) Goals may [...] Gomez MD Attending Provider Active Ngozi Padron NP-C Referring Provider Active Team Status: Active Member [...] Primary Care Provider Activ e Ngozi Padron BURGLAR ALARM INSTALLER-C Attending Provider, Referring P rovider Active Dr. Myron Calvillo MD Other Provider Active Team Status: Inactive Member Role Status Dates Dr. Adolfo Aguirre MD Primary Care Provider, Refe rring Provider Active Sultana Aakash BURGLAR ALARM INSTALLER, BURGLAR ALARM INSTALLER-C Attending Provider Active Team Status: Active Member Role Status Dates Dr. Adolfo Aguirre MD Primary Care Provider Activ e Sultana Aakash BURGLAR ALARM INSTALLER, BURGLAR ALARM INSTALLER-C Attending Provider, Referring Provider Active Team Status: Inactive Member Role Status Dates Dr. Adolfo Aguirre MD Primary Care Provider Activ e Sultana Aakash BURGLAR ALARM INSTALLER, BURGLAR ALARM INSTALLER-C Attending Provider, Referring Provider Active Team Status: Inactive Member Role Status Dates Dr. Adolfo Aguirre MD Primary Care Provider, Refe rring Provider Active Dr. Myron Calvillo MD Active Sultana Aakash BURGLAR ALARM INSTALLER, BURGLAR ALARM INSTALLER-C Attending Provider Active Team Status: Inactive Member [...] 2024 End: October 25, 2024 Sultana Finn BURGLAR ALARM INSTALLER, BURGLAR ALARM INSTALLER-C Attending Provider Active Start: October 25, 2024 [...] ve Start: November 13, 2024 Sultana Aakash BURGLAR ALARM INSTALLER, BURGLAR ALARM INSTALLER-C Attending Provider Active Start: November 13, 2024 Sultana Aakash BURGLAR ALARM INSTALLER, BURGLAR ALARM INSTALLER-C Referring Provider Active Start: November 13, 2024 [...] 2024 End: November 13, 2024 Sultana Aakash BURGLAR ALARM INSTALLER, BURGLAR ALARM INSTALLER-C Attending Provider Active Start: November 13, 2024 End: November 13, 2024 Sultana Aakash BURGLAR ALARM INSTALLER, BURGLAR ALARM INSTALLER-C Referring Provider Active Start: November 13, 2024 End: November 13, 2024 Team Status: Inactive Member Role Status Dates Dr. Rae Aguirre MD Primary Care Provider Acti ve Start: November 22, 2024 End: November 22, 2024 Dr. Rae Aguirre MD Referring Provider Active Start: November 22, 2024 End: November 22, 2024 Sultana Aakash BURGLAR ALARM INSTALLER, BURGLAR ALARM INSTALLER-C Attending Provider Active Start: November 22, 2024 [...] 2025 End: February 14, 2025 Sultana Finn BURGLAR ALARM INSTALLER, BURGLAR ALARM INSTALLER-C Attending Provider Active Start: February 14, 2025 [...] 2024 End: November 22, 2024 Sultana Finn BURGLAR ALARM INSTALLER, BURGLAR ALARM INSTALLER-C Attending Provider Active Start: November 22, 2024 [...] 2025 End: February 14, 2025 Sultana Finn BURGLAR ALARM INSTALLER, BURGLAR ALARM INSTALLER-C Attending Provider Active Start: February 14, 2025 [...] Inactive Member Role/Relationship Status Dates Dr. Rae Aguirer MD Primary Care Provider Acti ve Start: [...] 2025 End: February 14, 2025 Sultana Finn BURGLAR ALARM INSTALLER, BURGLAR ALARM INSTALLER-C Attending Provider Active Start: February 14, 2025 [...] 2025 End: March 21, 2025 Dr. Rae Augirre MD Referring Provider Active Start: March 21, [...] 2025 End: February 14, 2025 Sultana Finn BURGLAR ALARM INSTALLER, BURGLAR ALARM INSTALLER-C Attending Provider Active Start: February 14, 2025 [...] 2025 End: May 02, 2025 Sultana Finn BURGLAR ALARM INSTALLER, BURGLAR ALARM INSTALLER-C Attending Provider Active Start: May 02, 2025 [...] 2025 End: February 14, 2025 Sultana Finn BURGLAR ALARM INSTALLER, BURGLAR ALARM INSTALLER-C Attending physician Active Start: February 14, 2025 [...] 2025 End: March 21, 2025 Dr. Myron Cavlillo MD Attending physician Active Start: March 21, [...] 2025 End: May 02, 2025 Sultana Finn BURGLAR ALARM INSTALLER, BURGLAR ALARM INSTALLER-C Attending physician Active Start: May 02, 2025 [...] May 30, 2025 End: May 30, 2025 Team Status: Inactive Member [...] 2025 End: May 02, 2025 Sultana Finn BURGLAR ALARM INSTALLER, BURGLAR ALARM INSTALLER-C Attending physician Active Start: May 02, 2025 End: May 02, 2025 Team Status: Inactive Member Role/Relationship Status Dates Dr. Rae Aguirre MD Primary care physician Act sallie Start: May 30, 2025 End: May 30, 2025 Dr. Rae Aguirre MD Referring Provider Active Start: May 30, 2025 End: May 30, 2025 Dr. Myron Calvillo MD Attending physician Active Start: May 30, 2025 End: May 30, 2025 Team Status: Inactive Member Role/Relationship Status Dates Dr. Rae Aguirre MD Primary care physician Act sallie Start: June 17, 2025 End: June 17, 2025 Dr. Myron Calvillo MD Attending physician Active Start: June 17, 2025 End: June 17, 2025 Dr. Myron Calvillo MD Referring Provider Active S tart: June 17, 2025 End: June 17, 2025 Team Status: Inactive Member Role/Relationship Status Dates Dr. Rae Aguirre MD Primary care physician Act sallie Start: June 27, 2025 End: June 27, 2025 Dr. Rae Aguirre MD Referring Provider Active Start: June 27, 2025 End: June 27, 2025 Dr. Myron Calvillo MD Attending physician Active Start: June 27, 2025 End: June 27, 2025 Team Status: Active Member Role/Relationship Status Dates Dr. Rae Aguirre MD Primary care physician Act sallie Start: July 02, 2025 Dr. Kang Pagan MD Referring Provider Active Start: July 02, 2025 Dr. Myron Calvillo MD Attending physician Active Start: July 02, 2025 Team Status: Inactive Member Role/Relationship Status Dates Dr. Rae Aguirre MD Primary care physician Act sallie Start: July 08, 2025 End: July 08, 2025 Dr. Rae Aguirre MD Referring Provider Active Start: July 08, 2025 End: July 08, 2025 Dr. Myron Calvillo MD Attending physician Active Start: July 08, 2025 End: July 08, 2025 FOR RECORDS PERTAINING TO PATIENTS WHO [...] BE BASED ON THE PRIMARY CLINICAL RECORDS. [employer] provides no warranty or guarantee of the accuracy or completeness of information in this document.
[2025-07-31] MEDS: 0.9% Normal Saline (1000mL) 1,000 ML 999 ML IV ×2 (03:51→05:28)
[2025-07-31] MEDS: fentaNYL 100 MCG/2 ML Ampul 50 MCG IV (03:51)
--- NOTE | 2025-07-31 04:25 | RAD_ITS ---
PROCEDURE: CHEST 1 VIEW (PORTABLE) 07/31/2025 REASON FOR EXAM: FEVER TECHNIQUE: Frontal view of the chest. COMPARISON: November 05, 2024 FINDINGS: There is a central access port on the left with its tip centrally located. Heart size is upper normal. Central vascularity appears within normal limits. There is no focal infiltrate or consolidation. There is no pneumothorax or effusion. There is no acute bony abnormality. Aortic calcifications are visible. RAD/Chest 1 View (Portable) IMPRESSION: There is no acute infiltrate or consolidation. Reading Location: [facility]
[2025-07-31 04:48] LABS: Mucous, Urine 0 SEEN /hpf (<or=2+); Red Blood Cells-Urine 0 SEEN /hpf (0-5)
[2025-07-31 05:05] LABS: Hematocrit 31.5 % (37-47); Hemoglobin 11.0 g/dL (12.0-15.0); Immature Granulocytes Count 0.040 X10^3/uL (0.0-0.0); Mean Corp Hgb Conc 34.9 g/dL (32-36); Mean Corpuscular Volume 89.0 fL (81-99); Mean Platelet Vol. 9.2 fl (6.2-12.0); NRBC Flagged by Analyzer 3.2 % (0-5); POSITIVE COUNT YES; POSITIVE DIFFERENTIAL YES; POSITIVE MORPHOLOGY YES; Platelet Count 187 K/mm3 (150-450); RBC Distribution Width CV 14.5 % (11.6-14.6); RBC Distribution Width SD 45.9 fl (35.1-43.9); Red Blood Count 3.54 M/mm3 (4.2-5.4)
[2025-07-31 05:43] LABS: Color, Urine Yellow (Yellow); Glucose, Dipstick 250 mg/dl (Normal); Ketone-Dipstick 5 mg/dl (Negative); Leukocyte Esterase-Dipstick Negative /ul (Negative); Nitrite-Dipstick Positive (Negative); Occult Blood-Urine 10 /ul (Negative); Protein-Dipstick 30 mg/dl (Negative); Specific Gravity, Urine 1.015 (1.002-1.030); Urine Bilirubin Dipstick Negative (Negative)
[2025-07-31 05:46] LABS: Differential Indicated SCAN CRITERIA MET; White Blood Count 0.9 K/mm3 (4.4-11.0)
[2025-07-31 06:05] LABS: Anion Gap 11 (5-15); BUN 14 mg/dL (4-19); BUN/Creat Ratio 13.0 RATIO (10-20); Calcium,Total 7.6 mg/dL (7.6-11.0); Carbon Dioxide 22.3 mmol/L (21.0-32.0); Chloride 101 mmol/L (98-108); Estimated Creatinine Clearance 55.65 ml/min (50-250); Glucose 211 mg/dL (70-99); Potassium 2.6 mmol/L (3.3-5.1); Procalcitonin 0.99 ng/mL (<=0.10)
[2025-07-31 06:20] LABS: Squamous Epithelial Cells - UA 0-5 SEEN /hpf (5-10)
[2025-07-31 06:42] LABS: Differential Comment SCANNED; Polychromasia RARE
[2025-07-31 06:49] LABS: Magnesium 0.9 mg/dL (1.5-2.2)
[2025-07-31] MEDS: Magnesium Sulfate 2 GM in Dextrose 5%-Water (100mL Bag) 100 ML IV (07:25)
--- NOTE | 2025-07-31 08:36 | PCM.HP.STD ---
[facility] - General General Date of Service: 07/31/25 Chief Complaint: Confusion and weakness HPI Narrative ERIBERTO MI, is a 70 F who presents with confusion. Patient was notably confused yesterday. Family concerned because she presents this way which she has had urinary tract infections. Also just very weak. Patient has been started on chemotherapy which she has not tolerated well having nausea decreased appetite. So she presented to the emergency room and was found to have COVID-19, neutropenia with a white count of 0.9, potassium of 2.6 and a magnesium of 0.9. She received replacements of magnesium and potassium in the emergency room. Patient also has pain due to metastatic breast cancer with bony metastasis. She did receive fentanyl and hydromorphone in the emergency room. Patient expresses a desire not to continue with her chemotherapy and family, is present, expressed that they are interested in speaking with hospice as she is already involved with palliative care. [ ] [facility] Medical History Breast cancer metastasized to bone Pain of right humerus Abdominal cramping Cough Mental status alteration Encounter for education Wears glasses Marijuana use Thyroid disease Diabetes High cholesterol Non-smoker CPAP (continuous positive airway pressure) dependence Asthma History of echocardiogram History of stress test Hypertension Cardiology follow-up encounter Right kidney mass Left lower lobe pulmonary nodule Bone metastases Atherosclerotic heart disease of [place] coronary artery without angina pectoris TIA (transient ischemic attack) Coronary artery vasospasm Essential hypertension Elevated alkaline phosphatase level History of kidney stones Hx of cholecystitis Diabetes mellitus Hot flashes related to aromatase inhibitor therapy Malignant neoplasm of right breast, stage 2 Chest pain RBBB Vitamin D deficiency GERD (gastroesophageal reflux disease) Osteoarthritis Acute asthma exacerbation Nephrolithiasis Hypothyroidism HLD (hyperlipidemia) Depression Diabetes mellitus, type II Morbid obesity with BMI of 40.0-44.9, adult Sleep apnea Acquired absence of bilateral breasts and nipples Personal history of breast cancer Home Medications ?Medication ?Instructions ?Recorded ?Last Taken ?Type losartan 100 mg tablet 100 mg PO DAILY 07/02/13 07/09/15 History metformin 1,000 mg tablet 1,000 mg PO BIDCM 07/02/13 07/09/15 History vdebhbwd-uwu-igkfn acid 0.4 1 ea PO QHS 07/02/13 Unknown History mg-lycopene 300 mcg-lutein 250 mcg tablet albuterol sulfate 90 mcg/actuation 2 puff inhalation Q4H PRN PRN 07/09/15 Unknown History aerosol inhaler Shortness Of Breath atorvastatin 80 mg tablet 80 mg PO QHS 07/09/15 07/08/15 History ergocalciferol (vitamin D2) 1,250 50,000 unit PO SUWE 07/09/15 Unknown History mcg (50,000 unit) capsule metoprolol succinate 25 mg 12.5 mg PO DAILY 07/09/15 07/09/15 History tablet,extended release 24 hr zolpidem 5 mg tablet 10 mg PO QHS PRN PRN Sleep 12/07/16 Unknown History albuterol sulfate 0.63 mg/3 mL 0.63 mg inhalation Q4H 07/03/19 Unknown History solution for nebulization cyclobenzaprine 10 mg tablet 10 mg PO BID PRN muscle spasm #10 04/22/21 Unknown Rx tabs lidocaine-prilocaine 2.5 %-2.5 % 1 applic topical ONCE PRN port 05/23/21 Unknown Rx topical cream access 30 days #30 grams aspirin 325 mg tablet 325 mg PO DAILY 01/04/22 Unknown History lorazepam 0.5 mg tablet 0.5 mg PO QHS 04/19/22 Unknown History meclizine 25 mg tablet (Dramamine 25 mg PO DAILY PRN dizziness 04/19/22 Unknown History (meclizine)) levothyroxine 150 mcg tablet 150 mcg PO MOTUWETHFRSA 04/26/22 Unknown History sertraline 100 mg tablet (Zoloft) 150 mg PO DAILY 02/09/23 Unknown History oxycodone 5 mg capsule 10 mg PO Q4H PRN Pain 05/03/23 Unknown History insulin glargine 100 unit/mL (3 50 unit subcut QPM 07/26/24 Unknown History mL) subcutaneous pen (Basaglar KwikPen U-100 Insulin) tamoxifen 20 mg tablet 100 mg (5 x 20 mg) PO QDAY 30 days 05/06/25 Unknown Rx #150 tabs ondansetron 4 mg disintegrating 4 mg PO Q8H PRN nausea and 07/17/25 Unknown Rx tablet vomiting #30 tabs prochlorperazine maleate 5 mg 5 mg PO TID PRN nausea and 07/17/25 Unknown Rx tablet (Compazine) vomiting #30 tabs fulvestrant 250 mg/5 mL 500 mg IM QMONTH 07/31/25 Unknown History intramuscular syringe (Faslodex) glimepiride 4 mg tablet 4 mg PO DAILY 07/31/25 Unknown History insulin aspart U-100 100 unit/mL 5 unit subcut TID 07/31/25 Unknown History (3 mL) subcutaneous pen (Novolog FlexPen U-100 Insulin aspart) lactulose 10 gram/15 mL oral 30 ml PO DAILY PRN constipation 07/31/25 Unknown History solution (Constulose) methadone 10 mg tablet 10 mg PO Q12H pain 07/31/25 Unknown History pen needle, diabetic 31 gauge x 07/31/25 Unknown History / (Ultra-Fine Pen Needle) zolpidem 10 mg tablet 10 mg PO QHS 07/31/25 Unknown History Allergy/AdvReac Type Severity Reaction Status Date / Time Earhaym-VQO-DcM Reductase AdvReac Intermediate elevated Verified 07/31/25 02:53 Inhibitor (Mrkliip-Tgx-Vbn liver Reductase Inhibitor) enzymes Family History Father Myocardial infarction Sudden cardiac , Onset Age: 57 Brother Myocardial infarction CAD (coronary artery disease) Sister Myocardial infarction CAD (coronary artery disease) Uterine cancer Mother Ovarian cancer Sister Cancer Surgical History Hx of appendectomy Hx of right mastectomy History of bilateral mastectomy History of left heart catheterization (LHC) (~07/23/11) History of cholecystectomy History of hysterectomy Social History Smoking Status: Never smoker alcohol intake: never substance use type: does not use caffeine: Yes Type: tea Number of servings: 6 ROS ROS Narrative Abdominal pain, rib pain, muscle pains throughout, sore throat, decreased appetite. All review of systems were negative except as mentioned above in the history of present illness and the other review of systems. Vital Signs Vital Signs Vital Signs: 07/31/25 02:53 07/31/25 02:53 07/31/25 03:00 Temperature 39.4 C H 39.4 C H Temperature Source Oral Oral Pulse Rate 107 H 110 H Respiratory Rate 18 18 Respiratory Effort Normal Respiratory Pattern Normal Blood Pressure 170/65 H 170/65 H Blood Pressure Mean 100 100 Pulse Ox 93 93 Oxygen Delivery Method Room Air Room Air 07/31/25 04:00 07/31/25 05:00 07/31/25 06:00 Temperature 39.4 C H 37.4 C H 37.4 C H Temperature Source Oral Oral Oral Pulse Rate 131 H 102 H 95 Respiratory Rate 16 16 16 Respiratory Effort Respiratory Pattern Blood Pressure 169/91 H 170/62 H 135/65 H Blood Pressure Mean 117 98 88 Pulse Ox 94 97 95 Oxygen Delivery Method Room Air Room Air Room Air 07/31/25 06:34 07/31/25 07:00 07/31/25 08:08 Temperature 37.0 C 37.3 C Temperature Source Oral Pulse Rate 94 93 Respiratory Rate 16 16 Respiratory Effort Respiratory Pattern Blood Pressure 147/63 H 132/60 H 135/56 H Blood Pressure Mean 91 84 82 Pulse Ox 95 97 Oxygen Delivery Method Room Air 07/31/25 08:09 Temperature 37.2 C Temperature Source Oral Pulse Rate 91 Respiratory Rate 16 Respiratory Effort Respiratory Pattern Blood Pressure 135/56 H Blood Pressure Mean 82 Pulse Ox 96 Oxygen Delivery Method Room Air Weight Weight: 101.7 kg Body Mass Index (BMI) 36.1 Physical Exam Const alert Constitutional Narrative: Uncomfortable. Afebrile. General Appearance: cooperative HEENT normocephalic and head/scalp atraumatic Resp normal respiratory effort, no retractions, no use of accessory muscles and clear to auscultation bilaterally Cardio regular rate, regular rhythm, S1 normal heart sound and S2 normal heart sound GI normal to inspection, nondistended, normoactive bowel sounds, soft to palpation, non-tender and non-distended Neuro Sensorium / Orientation: awake and alert Results Lab / Micro Data 07/31/25 04:54 07/31/25 04:54 Labs: Laboratory Results - last 24 hr 07/31/25 04:42: Urine Color Yellow, Urine Clarity Clear, Urine pH 5.0, Ur Specific [place] 1.015, Urine Protein 30 H, Urine Glucose (UA) 250 H, Urine Ketones 5 H, Urine Occult Blood 10 H, Urine Nitrite Positive H, Urine Bilirubin Negative, Urine Urobilinogen Normal, Ur Leukocyte Esterase Negative, Urine RBC 0 SEEN, Urine WBC 0 SEEN, Ur Squamous Epith Cells 0-5 SEEN, Urine Bacteria 1+, Urine Mucus 0 SEEN 07/31/25 04:54: WBC 0.9 L*, RBC 3.54 L, Hgb 11.0 L, Hct 31.5 L, MCV 89.0, MCH 31.1, MCHC 34.9, RDW Std Deviation 45.9 H, RDW Coeff of [place]az[place] 14.5, Plt Count 187, MPV 9.2, Immature Gran % (Auto) 4.300 H, Neut % (Auto) 32.9 L, Lymph % (Auto) 30.9, [place] % (Auto) 22.3 H, Eos % (Auto) 8.5 H, Baso % (Auto) 1.1 H, Absolute Neuts (auto) 0.3 L, Absolute Lymphs (auto) 0.29 L, Nucleated RBC % 3.2, Differential Comment SCANNED, Diff Path Review January, Platelet Estimate ADEQUATE, Polychromasia RARE, Sodium 134, Potassium 2.6 L*, Chloride 101, Carbon Dioxide 22.3, Anion Gap 11, BUN 14, Creatinine 1.10, Estim Creat Clear Calc 55.65, Est GFR (MDRD) Non-Af 53 L, BUN/Creatinine Ratio 13.0, Glucose 211 H, Lactic Acid 1.2, Calcium 7.6, Magnesium 0.9 L*, Procalcitonin 0.99 H Micro: Microbiology 07/31/25 03:57 Mucosa - Nose SARS-CoV-2, Influenza & RSV (PCR) - Final SARS-CoV-2 (COVID 19 PCR) Imaging Radiology Impression Chest X-Ray 07/31/25 04:25 IMPRESSION: There is no acute infiltrate or consolidation. Reading Location: [facility] Assessment & Plan Assessment/Plan (1) COVID-19: PLAN: Currently stable at this time. Though certainly is contributing to her malaise. No need for treatment at this time. (2) Acute hypokalemia: PLAN: Replaced in the emergency room. Will follow-up (3) Hypomagnesemia: PLAN: Replaced in emergency room, will follow-up (4) Metastatic cancer: PLAN: With bony metastasis. Patient on methadone, oxycodone for outpatient management of her pain. Will add hydromorphone as this does not seem to be satisfying her pain relief acutely. PLAN: Plan Neutropenia: With plan for the patient to proceed with hospice, will monitor for now. Diabetes mellitus type 2: Continue with the insulin and add sliding scale. Hold glimepiride and metformin. Depression: Continue with sertraline VTE prophylaxis: High risk given her underlying cancer. Enoxaparin for now but if patient does like to go with hospice that can be discontinued. CODE STATUS: Addressed with the patient. DNR Comfort Care arrest no intubation. Her power of extruding machine operator from medical perspective is her son, Bal. Discussed with the patient's family at bedside Charges/Coding Visit Charges Inpatient E&M: 32144 Init Hosp L2
[2025-07-31] MEDS: Metoprolol(XL)Succ 25 MG Tablet 12.5 MG PO (09:57)
[2025-07-31] MEDS: 0.9% Normal Saline (250mL Bag) 250 ML 15 ML IV (10:19)
[2025-07-31] MEDS: 0.9% Saline Lock 10 ML Syringe IV ×5 (10:19→22:02)
[2025-07-31] MEDS: Potassium Chloride 10mEq/100mL 10 MEQ/100 ML IV.SOLN. 100 MEQ IV BOLUS ×3 (10:23→13:00)
--- NOTE | 2025-07-31 10:45 | CASEMGMT ---
Social Work- Pt requesting hospice services in ED; currently a palliative care pt. SW met with pt, pt spouse, and pt son and HCPOA, Bal, to discuss referral. Pt palliative service provider is [facility], which is the preferred hospice provider. SW completed referral to hospice. Pt and family state no other needs at this time. SW remains available to follow. ANA LUISA Black
[2025-07-31] MEDS: HYDROmorphone Inj 0.2 MG/ML SYRINGE IV ×3 (10:53→22:02)
--- NOTE | 2025-07-31 14:43 | CASEMGMT ---
Addendum entered by Radha Mack 07/31/25 16:20: [facility] called SW and updated that consult with family will occur tomorrow at 9:00. MARIVEL updated hospitalist. MARIVEL remains available to follow. ANA LUISA Black Original Note: Social Work- SW called hospice to f/u on referral. Hospice ([facility]) reports that a voicemail was left at 13:08 for pt DIL to schedule consult. SW requested hospice call pt son, as per email/referral. MARIVEL remains available to follow. ANA LUISA Black
--- NOTE | 2025-07-31 18:43 | NURSING ---
SonBal notified that pt was moved to [facility].
[2025-08-01 03:00] VITALS: BP 121/45; PULSE 84; RESP 18; TEMP 36.6; O2SAT 95
[2025-08-01] MEDS: 0.9% Saline Lock 10 ML Syringe IV ×3 (05:37→17:48)
[2025-08-01 06:59] LABS: Magnesium 1.7 mg/dL (1.5-2.2)
[2025-08-01 07:00] VITALS: O2SAT 96
[2025-08-01 07:29] LABS: Anion Gap 11 (5-15); BUN 16 mg/dL (4-19); BUN/Creat Ratio 15.5 RATIO (10-20); Calcium,Total 7.9 mg/dL (7.6-11.0); Carbon Dioxide 22.6 mmol/L (21.0-32.0); Chloride 100 mmol/L (98-108); Estimated Creatinine Clearance 59.31 ml/min (50-250); Glucose 135 mg/dL (70-99); Potassium 2.9 mmol/L (3.3-5.1)
[2025-08-01 08:33] VITALS: BP 125/57; PULSE 79; RESP 18; TEMP 36.6; O2SAT 95
[2025-08-01 08:41] VITALS: PULSE 79
[2025-08-01] MEDS: Metoprolol(XL)Succ 25 MG Tablet 12.5 MG PO (08:41)
--- NOTE | 2025-08-01 09:58 | PCM.PN.HOSP ---
Reason for Visit Chief Complaint: Confusion and weakness Subjective Subjective Having pain with movement, but states that her pain is adequately controlled. Objective Data Objective Data Vital Signs: Vital Signs Temp Pulse Resp BP Pulse Ox O2 Del Method 36.6 C 79 18 125/57 H 95 Room Air 08/01/25 08:33 08/01/25 08:41 08/01/25 08:33 08/01/25 08:33 08/01/25 08:33 08/01/25 08:58 Oxygen Delivery Method Room Air Weight: 106.594 kg Body Mass Index (BMI) 39.1 Intake & Output: Intake and Output for Last 24 Hours 07/30/25 07/31/25 08/01/25 23:59 23:59 23:59 Intake Total 2674.25 / 2674.25 Balance 2674.25 / 2674.25 Lab / Micro Data 07/31/25 04:54 08/01/25 05:13 Labs: Laboratory Results - last 24 hr 07/31/25 09:51: POC Glucose 179 H 07/31/25 10:59: POC Glucose 208 H 07/31/25 16:55: POC Glucose 157 H 07/31/25 21:54: POC Glucose 161 H 08/01/25 05:13: Sodium 134, Potassium 2.9 L, Chloride 100, Carbon Dioxide 22.6, Anion Gap 11, BUN 16, Creatinine 1.04, Estim Creat Clear Calc 59.31, Est GFR (MDRD) Non-Af 57 L, BUN/Creatinine Ratio 15.5, Glucose 135 H, Calcium 7.9, Magnesium 1.7 08/01/25 08:39: POC Glucose 144 H Micro: Microbiology 07/31/25 03:57 Mucosa - Nose SARS-CoV-2, Influenza & RSV (PCR) - Final SARS-CoV-2 (COVID 19 PCR) Physical Exam Const alert and no apparent distress HEENT head/scalp atraumatic and moist oral mucous membranes Resp normal respiratory effort and no retractions Assessment & Plan Assessment/Plan (1) COVID-19: PLAN: Currently stable at this time. Though certainly is contributing to her malaise. No need for treatment at this time. (2) Acute hypokalemia: PLAN: Ongoing. Will readminister. (3) Hypomagnesemia: PLAN: Replaced in emergency room, Improved with replacement. (4) Metastatic cancer: PLAN: With bony metastasis. Patient on methadone, oxycodone for outpatient management of her pain. Will add hydromorphone as this does not seem to be satisfying her pain relief acutely. PLAN: Plan Neutropenia: With plan for the patient to proceed with hospice, will monitor for now. Diabetes mellitus type 2: Continue with the insulin and add sliding scale. Hold glimepiride and metformin. Depression: Continue with sertraline VTE prophylaxis: High risk given her underlying cancer. Enoxaparin for now but if patient does like to go with hospice that can be discontinued. CODE STATUS: Addressed with the patient. DNR Comfort Care arrest no intubation. Her power of marketing representative from medical perspective is her son, Bal. Patient and family to meet with hospice. Charges/Coding Visit Charges Inpatient E&M: 65916 Subs Hosp L1
--- NOTE | 2025-08-01 11:00 | CASEMGMT ---
Social Work MARIVEL collaborated with Faviola from [facility]. Faviola met with pt and family and discussed hospice services. Per Faviola, pt has elected to have hospice services and would like to return home with hospice care. Pt has all needed DME at home. Faviola states familyplans to transport pt home. Pt expressing concerns regarding stomach issues and does not want to discharge home until this is addressed. Hospice nurse spoke with bedside nurse regarding pt concerns and bedside nurse to reach out to physician. MARIVEL will notify [facility] when pt is ready for discharge. Hospice nurse will meet pt at home on day of discharge. ANA LUISA Morelos
[2025-08-01 14:46] VITALS: BP 132/49; PULSE 75; RESP 17; TEMP 36.8; O2SAT 97
--- NOTE | 2025-08-01 15:41 | CASEMGMT ---
Social Work SW met with pt and assisted in completing living will and HCPOA naming her son Bal as decision maker. Originals given to pt and copies placed on pt chart. ANA LUISA Arnold
--- NOTE | 2025-08-01 15:45 | RAD_ITS ---
PROCEDURE: ABDOMEN SINGLE VIEW (PORTABLE) 08/01/2025 REASON FOR EXAM: ABDOMINAL PAIN. TECHNIQUE: Procedure Code: RADABD_P Modality: DX Procedure: ABDOMEN SINGLE VIEW (PORTABLE) COMPARISON: Abdominal CT 11/05/2024. FINDINGS: Nonspecific, nonobstructive bowel gas pattern. No discernible free air. Surgical material in the lower midabdomen noted. No unusual calcific densities. Degenerative changes of the spine and bilateral hips. RAD/Abdomen Single View (Portable) IMPRESSION: Nonobstructive gas pattern. Reading Location: [id number]
[2025-08-01 21:00] VITALS: BP 144/64; PULSE 82; RESP 16; TEMP 36.9; O2SAT 96
[2025-08-02 03:50] VITALS: BP 130/51; PULSE 80; RESP 16; TEMP 36.9; O2SAT 95
[2025-08-02] MEDS: 0.9% Saline Lock 10 ML Syringe IV (05:02)
[2025-08-02 08:27] VITALS: O2SAT 95
[2025-08-02 08:50] VITALS: BP 123/63; PULSE 77; RESP 18; TEMP 36.9; O2SAT 93
[2025-08-02 08:56] VITALS: PULSE 76
[2025-08-02] MEDS: Metoprolol(XL)Succ 25 MG Tablet 12.5 MG PO (08:56)
--- NOTE | 2025-08-02 10:57 | DS.PCM_ITS ---
Providers Date of Admission: 07/31/25 Primary Care Physician: Dr. Ray Aguirre MD Consultations 07/31/25 08:57 Consult: Hospice / Outpatient Palliative Care Routine Consulting Provider: [facility] Reason for Consult: metastatic breast cancer. EMERGENT Consult: No MD Notified: Yes Date Notified: 07/31/25 Time Notified: 09:40 Method of Notification: Verbal Reason For Visit: CANCER PAIN, HYPOKALEMIA, HYPOMAG, COVID Diagnosis Discharge Diagnosis (1) COVID-19: Status: Acute Code(s): U07.1 - COVID-19 Plan: Currently stable at this time. Though certainly is contributing to her malaise. No need for treatment at this time. (2) Acute hypokalemia: Status: Acute Code(s): E87.6 - Hypokalemia Plan: Ongoing. Will readminister. (3) Hypomagnesemia: Status: Acute Code(s): E83.42 - Hypomagnesemia Plan: Replaced in emergency room, Improved with replacement. (4) Metastatic cancer: Status: Acute Code(s): C79.9 - Secondary malignant neoplasm of unspecified site Plan: With bony metastasis. Patient on methadone, oxycodone for outpatient management of her pain. Will add hydromorphone as this does not seem to be satisfying her pain relief acutely. Plan Neutropenia: With plan for the patient to proceed with hospice, will monitor for now. Diabetes mellitus type 2: Continue with the insulin and add sliding scale. Hold glimepiride and metformin. Depression: Continue with sertraline VTE prophylaxis: High risk given her underlying cancer. Enoxaparin for now but if patient does like to go with hospice that can be discontinued. CODE STATUS: Addressed with the patient. DNR Comfort Care arrest no intubation. Her power of casino cashier manager from medical perspective is her son, Bal. Patient to go home with hospice today. She did have abdominal pain. Xray showed non-specific bowel gas pattern. Abdominal pain improved with simethicone and bentyl. Medications at Discharge Home Medications albuterol sulfate 90 mcg/actuation aerosol inhaler 2 puff inhalation Q4H PRN PRN Shortness Of Breath 07/09/15 zolpidem 5 mg tablet 10 mg PO QHS PRN PRN Sleep 12/07/16 albuterol sulfate 0.63 mg/3 mL solution for nebulization 0.63 mg inhalation Q4H 07/03/19 cyclobenzaprine 10 mg tablet 10 mg PO BID PRN muscle spasm #10 tabs 04/22/21 lidocaine-prilocaine 2.5 %-2.5 % topical cream 1 applic topical ONCE PRN port access 30 days #30 grams 05/23/21 lorazepam 0.5 mg tablet 0.5 mg PO QHS 04/19/22 meclizine 25 mg tablet (Dramamine (meclizine)) 25 mg PO DAILY PRN dizziness 04/19/22 levothyroxine 150 mcg tablet 150 mcg PO MOTUWETHFRSA 04/26/22 sertraline 100 mg tablet (Zoloft) 150 mg PO DAILY 02/09/23 oxycodone 5 mg capsule 10 mg PO Q4H PRN Pain 05/03/23 ondansetron 4 mg disintegrating tablet 4 mg PO Q8H PRN nausea and vomiting #30 tabs 07/17/25 prochlorperazine maleate 5 mg tablet (Compazine) 5 mg PO TID PRN nausea and vomiting #30 tabs 07/17/25 lactulose 10 gram/15 mL oral solution (Constulose) 30 ml PO DAILY PRN constipation 07/31/25 methadone 10 mg tablet 10 mg PO Q12H pain 07/31/25 pen needle, diabetic 31 gauge x 5/16 (Ultra-Fine Pen Needle) 07/31/25 dicyclomine 10 mg capsule 10 mg PO .qid PRN abdominal cramping #60 caps 08/02/25 simethicone 80 mg chewable tablet 80 mg PO PCHS #0 tabs 08/02/25 Hospital Course Summary of Care Provided Hospital Course: Greater than 30 minutes spent on discharge. Patient presented weakness was found to have COVID-19 as well as severe hypokalemia and hypomagnesemia. Patient did receive replacements for the magnesium as well as potassium. No treatment was necessary for the COVID 19 as she was not hypoxic. Patient elected to no longer proceed with treatment for her breast cancer and wanted to proceed w hospice. She and family met with hospice and plan is to return to home with hospice. She did experience abdominal pain here and xray showed a non-specific bowel gas pattern. Helped with simethicone and Bentyl. Physical Exam Const alert and no apparent distress Constitutional Narrative: up in bed. nontoxic. afebrile. Weight / BMI Weight Weight: 106.594 kg Body Mass Index (BMI) 39.1 ABG / Lab / Microbiology Data 07/31/25 04:54 08/01/25 05:13 Laboratory: Laboratory Results - last 24 hr 08/01/25 11:10: POC Glucose 173 H 08/01/25 16:43: POC Glucose 138 H 08/01/25 21:38: POC Glucose 137 H 08/02/25 08:53: POC Glucose 156 H Microbiology: Microbiology 07/31/25 05:15 Blood Culture (Wb) - Right Hand Blood Culture - Preliminary No growth in 48 hours. 07/31/25 04:54 Blood Culture (Wb) - Right Hand Blood Culture - Preliminary No growth in 48 hours. 07/31/25 04:42 Urine, Random Urine Culture - Final Raoultella planticola 07/31/25 03:57 Mucosa - Nose SARS-CoV-2, Influenza & RSV (PCR) - Final SARS-CoV-2 (COVID 19 PCR) Radiography Diagnostic Testing: Radiology Impression KUB X-Ray 08/01/25 15:45 IMPRESSION: Nonobstructive gas pattern. Reading Location: [id number] D/C Instructions DC O2, CPAP, BIPAP Needs Home O2 Discharge instructions: No Meaningful Use Info Meaningful Use Meaningful Use Diagnoses (Choose all that apply): None applicable Discharge Plan Admission Admit Date/Time: 07/31/25 08:25 Primary Reason for Your Visit: weakness. Attending Provider: Bal Pope Primary Care Provider: Ray Aguirre Consulting Providers: Eldon Rivas; Brooklynn Reid; Tawanna Herrera; Ngozi Padron; Antonietta Millan NP; Gillian Trammell Discharge Orders/Prescriptions Prescriptions: New simethicone 80 mg Tablet,Chewable 80 mg PO PCHS Qty: 0 0RF Rx Instructions: over the counter, no prescription required dicyclomine 10 mg capsule 10 mg PO .qid PRN (Reason: abdominal cramping) Qty: 60 0RF Continued albuterol sulfate 0.63 mg/3 mL solution for nebulization 0.63 mg INHALATION Q4H oxycodone 5 mg capsule 10 mg PO Q4H PRN (Reason: Pain) lidocaine-prilocaine 2.5-2.5 % cream 1 applic topical ONCE PRN (Reason: port access) 30 Days Qty: 30 2RF lorazepam 0.5 mg tablet 0.5 mg PO QHS meclizine [Dramamine (meclizine)] 25 mg tablet 25 mg PO DAILY PRN (Reason: dizziness) sertraline [Zoloft] 100 mg tablet 150 mg PO DAILY ondansetron 4 mg tablet,disintegrating 4 mg PO Q8H PRN (Reason: nausea and vomiting) Qty: 30 0RF prochlorperazine maleate [Compazine] 5 mg tablet 5 mg PO TID PRN (Reason: nausea and vomiting) Qty: 30 1RF albuterol sulfate 1 INHALER inhaler 2 puff inhalation Q4H PRN PRN (Reason: Shortness Of Breath) Patient Comments: shortness of breath levothyroxine 150 mcg tablet 150 mcg PO MOTUWETHFRSA Patient Comments: thyroid Rx Instructions: 300mcg on SASU zolpidem 5 MG tablet 10 mg PO QHS PRN PRN (Reason: Sleep) cyclobenzaprine 10 mg tablet 10 mg PO BID PRN (Reason: muscle spasm) Qty: 10 0RF lactulose [Constulose] 10 gram/15 mL solution 30 ml PO DAILY PRN (Reason: constipation) methadone 10 mg tablet 10 mg PO Q12H (DME) pen needle, diabetic [Ultra-Fine Pen Needle] 31 gauge x 5/16 needle 1 pen needle MISCELLANEOUS BID Discontinued insulin glargine [Basaglar KwikPen U-100 Insulin] 100 unit/mL (3 mL) insulin pen 50 unit subcut QPM metformin 1,000 MG tablet 1,000 mg PO BIDCM Patient Comments: LOWERS BLOOD SUGAR losartan 100 MG tablet 100 mg PO DAILY Patient Comments: BLOOD PRESSURE eovybxto-pnf-OY-lycopen-lutein 1 EACH tablet 1 ea PO QHS Patient Comments: MINERAL SUPPLEMENT atorvastatin 80 MG tablet 80 mg PO QHS Patient Comments: cholesterol metoprolol succinate 25 MG tablet 12.5 mg PO DAILY Patient Comments: hypertension ergocalciferol (vitamin D2) 50,000 UNIT capsule 50,000 unit PO SUWE Patient Comments: supplement aspirin 325 mg tablet 325 mg PO DAILY Patient Comments: heart health zolpidem 10 mg tablet 10 mg PO QHS fulvestrant [Faslodex] 250 mg/5 mL syringe 500 mg IM QMONTH Rx Instructions: may divide dose into 2 equally divided injections; one into each buttock glimepiride 4 mg tablet 4 mg PO DAILY insulin aspart U-100 [Novolog FlexPen U-100 Insulin] 100 unit/mL (3 mL) insulin pen 5 unit subcut TID tamoxifen 20 mg tablet 100 mg PO QDAY 30 Days Qty: 150 5RF Referrals / Follow Up: Ray Aguirre MD [Primary Care Provider, Family Practice] Disposition Disposition (needs filled in before D/C Order can be placed): Hospice in Home Charges/Coding Visit Charges Inpatient E&M: 15965 Disch Hosp >30min
--- NOTE | 2025-08-02 11:24 | CASEMGMT ---
Social Work Per physician, pt is ready for dc today. Phone call to pts son Bal and updated on DC. Bal confirms that family is ready to take pt home when the nurse comes in with the dc orders. Nursing updated. Phone call to [facility] and spoke with Erin. ORTA updated on DC today and also that pt has requested a wheelchair at home. Hospice to meet wiht pt at home today to start services. DC summary faxed to [facility]. ANA LUISA Morelos
--- NOTE | 2025-08-02 11:38 | PHA.DC_ITS ---
Pharmacy [place] Med Reconciliation Pharmacy Service has performed discharge medication reconciliation for this patient. The patient's discharge medication list was reviewed for discrepancies and discrepancies were resolved. Medications at Discharge Home Medications albuterol sulfate 90 mcg/actuation aerosol inhaler 2 puff inhalation Q4H PRN PRN Shortness Of Breath 07/09/15 zolpidem 5 mg tablet 10 mg PO QHS PRN PRN Sleep 12/07/16 albuterol sulfate 0.63 mg/3 mL solution for nebulization 0.63 mg inhalation Q4H 07/03/19 cyclobenzaprine 10 mg tablet 10 mg PO BID PRN muscle spasm #10 tabs 04/22/21 lidocaine-prilocaine 2.5 %-2.5 % topical cream 1 applic topical ONCE PRN port access 30 days #30 grams 05/23/21 lorazepam 0.5 mg tablet 0.5 mg PO QHS 04/19/22 meclizine 25 mg tablet (Dramamine (meclizine)) 25 mg PO DAILY PRN dizziness 04/19/22 levothyroxine 150 mcg tablet 150 mcg PO MOTUWETHFRSA 04/26/22 sertraline 100 mg tablet (Zoloft) 150 mg PO DAILY 02/09/23 oxycodone 5 mg capsule 10 mg PO Q4H PRN Pain 05/03/23 ondansetron 4 mg disintegrating tablet 4 mg PO Q8H PRN nausea and vomiting #30 tabs 07/17/25 prochlorperazine maleate 5 mg tablet (Compazine) 5 mg PO TID PRN nausea and vomiting #30 tabs 07/17/25 lactulose 10 gram/15 mL oral solution (Constulose) 30 ml PO DAILY PRN con stipation 07/31/25 methadone 10 mg tablet 10 mg PO Q12H pain 07/31/25 pen needle, diabetic 31 gauge x 5/16 (Ultra-Fine Pen Needle) 07/31/25 dicyclomine 10 mg capsule 10 mg PO .qid PRN abdominal cramping #60 caps 08/02/25 simethicone 80 mg chewable tablet 80 mg PO PCHS #0 tabs 08/02/25
== END 2025-08-02 12:11 | disposition hospice, home (50) | DRG 640 ==
LOC: ED 03:47 → ICU 09:48 → MS3 18:44
PROVIDERS: Emergency Provider Emergency Medicine; PCP Family Medicine
DX: E87.6 Hypokalemia (principal); U07.1 COVID-19; C79.51 Secondary malignant neoplasm of bone; Z66 Do not resuscitate; E11.9 Type 2 diabetes mellitus without complications; F32.A Depression, unspecified; I10 Essential (primary) hypertension; E03.9 Hypothyroidism, unspecified; C50.919 Malignant neoplasm of unspecified site of unspecified female breast; Z79.4 Long term (current) use of insulin; E78.00 Pure hypercholesterolemia, unspecified; E83.42 Hypomagnesemia; I25.10 Atherosclerotic heart disease of native coronary artery without angina pectoris; G47.30 Sleep apnea, unspecified; D70.9 Neutropenia, unspecified; Z90.710 Acquired absence of both cervix and uterus; Z92.21 Personal history of antineoplastic chemotherapy; Z79.899 Other long term (current) drug therapy; Z86.73 Personal history of transient ischemic attack (TIA), and cerebral infarction without residual deficits; Z99.89 Dependence on other enabling machines and devices; Z79.84 Long term (current) use of oral hypoglycemic drugs; Z79.82 Long term (current) use of aspirin; Z79.890 Hormone replacement therapy; Z90.49 Acquired absence of other specified parts of digestive tract; Z90.13 Acquired absence of bilateral breasts and nipples; Z79.891 Long term (current) use of opiate analgesic; R10.9 Unspecified abdominal pain
CPT/HCPCS: 36415; 71045; 74018; 80048; 81001; 82962; 83605; 83735; 84145; 85025; 87040; 87077; 87086; 87088; 87186; 87631; 93005; 99285; P9612; A4216; J2405